=== PATIENT | male | born 1940 | race Caucasian/White ===

== ENCOUNTER 2022-12-09 14:57 | Emergency (ER) | payer MEDICARE, BC, SELFPAY ==
[2022-12-09] VITALS (34 sets, daily range): BP systolic 124–143; BP diastolic 50–87; PULSE 70–84; RESP 16; TEMP 36.4; O2SAT 92–98; BMI 27.2
--- NOTE | 2022-12-09 15:18 | ED_ITS ---
HPI - Chest Pain General Chief Complaint: Chest Pain Stated Complaint: chest pain, shortness of breath Time Seen by Provider: 12/09/22 15:02 History of Present Illness HPI narrative: This 82-year-old male comes in reporting chest pain over the past few days. He states that this pain has come on each time when he lays down at night. 3 nights ago he had this pain and took a nitroglycerin which brought complete relief of his symptoms. 2 nights ago when he laid down he again had similar pain and took a nitro with moderate relief. Last night the nitroglycerin did not help his pain that occurred again when he laid down to sleep. He states that he did not sleep last night because of such pain. He did not have any lightheadedness, nausea, vomiting, diaphoresis. He did feel some shortness of breath. He has a history of triple bypass that was done 21 years ago. His most recent visit to a surgical instruments inspector occurred this year at which time the surgical instruments inspector stated that he does have some blockage in his vessels but since he was asymptomatic there was nothing to be done at that time. The patient did take his baby aspirin today. Currently he is not having any pain and arrives with normal vital signs. He does not describe any exercise intolerance. Related Data Home Medications Medication Instructions Recorded Confirmed atorvastatin 40 mg tablet 40 mg PO DAILY 12/09/22 12/09/22 glipizide 10 mg tablet 10 mg PO BID 12/09/22 12/09/22 hydrochlorothiazide 50 mg tablet 50 mg PO DAILY 12/09/22 12/09/22 insulin aspart U-100 100 unit/mL 8 - 10 unit subcut 3XD 12/09/22 12/09/22 (3 mL) subcutaneous pen (Novolog FlexPen U-100 Insulin aspart) insulin glargine 100 unit/mL (3 12 unit subcut QPM 12/09/22 12/09/22 mL) subcutaneous pen (Basaglar KwikPen U-100 Insulin) lisinopril 40 mg tablet 40 mg PO DAILY 12/09/22 12/09/22 metformin 1,000 mg tablet 1,000 mg PO BID 12/09/22 12/09/22 metoprolol succinate 50 mg 50 mg PO DAILY 12/09/22 12/09/22 tablet,extended release 24 hr nitroglycerin 0.4 mg sublingual mg sublingual 12/09/22 tablet Allergies Allergy/AdvReac Type Severity Reaction Status Date / Time No Known Drug Allergies Allergy Verified 12/09/22 15:04 Review of Systems Status of ROS Reports: 10 or more systems reviewed and unremarkable except as noted in History and below Narrative Constitutional: No fevers, no weight gain or loss. Eyes: No discharge. No vision changes. HENT: No congestion, no sore throat, no ear pain. Cardiovascular: No palpitations. Chest pain as described above. Respiratory: No wheezes, no cough. Patient feels short of breath when he is having chest pain. Gastrointestinal: No abdominal pain, no vomiting, no diarrhea. Genitourinary: No dysuria, no hematuria. Musculoskeletal: Normal range of motion. Skin: No rashes, no pruritis. Neurological: No dizziness, weakness, sensory change, speech change. Endo/Heme/Allergies: No bruising or bleeding. No polydipsia. Pysch: no suicidality, no anxiety, no insomnia. All other systems reviewed and are negative. PFSH PFS Social History Smoking Status: Never smoker How often do you have a drink containing alcohol: monthly or less AUDIT-C Alcohol total score: 1 Non-prescribed substance use: denies use service: No Exam Narrative Exam Narrative: Constitutional: Well-developed, well-nourished, no acute distress. HEENT: Normocephalic, atraumatic. Neck: Normal range of motion. Nontender. Supple. Heart: Regular. Normal rate. Intact distal pulses. Lungs: Clear to auscultation. No chest discomfort. No wheezes, rhonchi, or rales. Abdomen: Normal bowel sounds. Nontender. No rebound tenderness. Genitalia: Deferred. Back: No midline tenderness. Normal range of motion. Extremities: Normal range of motion. No injury. Skin: Intact. No rash. Warm. No erythema or pallor. Neurologic: No altered sensation. No weakness. Alert and oriented. Psychiatric: No suicidality. No anxiety or depression. No insomnia. Nursing notes and vitals signs are reviewed. Const Vital Signs, click to edit/add: Vital Signs - 24 hr 12/09/22 15:06 12/09/22 15:18 12/09/22 15:30 Temperature 97.6 F Pulse Rate 73 75 Pulse Rate [Left Pulse Oximeter] 79 Respiratory Rate 16 Blood Pressure Blood Pressure [Right Upper Arm] 140/78 H Pulse Oximetry 96 97 96 Oxygen Delivery Method Room Air 12/09/22 15:58 12/09/22 16:00 12/09/22 16:15 Temperature Pulse Rate 78 76 70 Pulse Rate [Left Pulse Oximeter] Respiratory Rate Blood Pressure Blood Pressure [Right Upper Arm] Pulse Oximetry 95 95 96 Oxygen Delivery Method 12/09/22 16:22 12/09/22 16:30 12/09/22 16:32 Temperature Pulse Rate 70 73 72 Pulse Rate [Left Pulse Oximeter] Respiratory Rate Blood Pressure 133/75 131/50 L Blood Pressure [Right Upper Arm] Pulse Oximetry 96 97 96 Oxygen Delivery Method 12/09/22 16:33 12/09/22 16:45 12/09/22 16:47 Temperature Pulse Rate 72 79 82 Pulse Rate [Left Pulse Oximeter] Respiratory Rate Blood Pressure 143/83 H Blood Pressure [Right Upper Arm] Pulse Oximetry 95 96 94 Oxygen Delivery Method 12/09/22 16:48 12/09/22 17:00 12/09/22 17:03 Temperature Pulse Rate 79 82 82 Pulse Rate [Left Pulse Oximeter] Respiratory Rate Blood Pressure 132/74 Blood Pressure [Right Upper Arm] Pulse Oximetry 98 93 94 Oxygen Delivery Method 12/09/22 17:04 12/09/22 17:15 12/09/22 17:16 Temperature Pulse Rate 82 81 83 Pulse Rate [Left Pulse Oximeter] Respiratory Rate Blood Pressure 136/86 Blood Pressure [Right Upper Arm] Pulse Oximetry 96 94 94 Oxygen Delivery Method 12/09/22 17:30 12/09/22 17:32 12/09/22 17:33 Temperature Pulse Rate 81 82 84 Pulse Rate [Left Pulse Oximeter] Respiratory Rate Blood Pressure 130/86 Blood Pressure [Right Upper Arm] Pulse Oximetry 94 94 95 Oxygen Delivery Method 12/09/22 17:45 12/09/22 17:46 12/09/22 18:00 Temperature Pulse Rate 81 74 73 Pulse Rate [Left Pulse Oximeter] Respiratory Rate Blood Pressure 130/74 Blood Pressure [Right Upper Arm] Pulse Oximetry 94 95 95 Oxygen Delivery Method 12/09/22 18:01 12/09/22 18:02 12/09/22 18:15 Temperature Pulse Rate 77 74 74 Pulse Rate [Left Pulse Oximeter] Respiratory Rate Blood Pressure 125/81 Blood Pressure [Right Upper Arm] Pulse Oximetry 94 93 93 Oxygen Delivery Method 12/09/22 18:17 12/09/22 18:30 12/09/22 18:31 Temperature Pulse Rate 74 74 71 Pulse Rate [Left Pulse Oximeter] Respiratory Rate Blood Pressure 131/72 124/75 Blood Pressure [Right Upper Arm] Pulse Oximetry 93 92 95 Oxygen Delivery Method 12/09/22 18:45 12/09/22 18:46 12/09/22 19:00 Temperature Pulse Rate 73 74 72 Pulse Rate [Left Pulse Oximeter] Respiratory Rate Blood Pressure 126/83 Blood Pressure [Right Upper Arm] Pulse Oximetry 94 93 93 Oxygen Delivery Method 12/09/22 19:02 Temperature Pulse Rate 75 Pulse Rate [Left Pulse Oximeter] Respiratory Rate Blood Pressure 135/87 Blood Pressure [Right Upper Arm] Pulse Oximetry 93 Oxygen Delivery Method Course Vital Signs Vital signs: Initial Vital Signs Temperature 97.6 F 12/09/22 15:06 Temperature Source Temporal Artery Scan 12/09/22 15:06 Pulse Rate 79 12/09/22 15:06 Pulse Rhythm Regular 12/09/22 15:06 Respiratory Rate 16 12/09/22 15:06 Blood Pressure 140/78 H 12/09/22 15:06 Blood Pressure Mean 98 12/09/22 15:06 Blood Pressure Position Sitting 12/09/22 15:06 Pulse Oximetry 96 12/09/22 15:06 Oxygen Delivery Method Room Air 12/09/22 15:06 Vital Signs Temperature 97.6 F 12/09/22 15:06 Pulse Rate 79 12/09/22 15:06 Respiratory Rate 16 12/09/22 15:06 Blood Pressure 140/78 H 12/09/22 15:06 Pulse Oximetry 96 12/09/22 15:06 Oxygen Delivery Method Room Air 12/09/22 15:06 Temperature 97.6 F 12/09/22 15:06 Pulse Rate 75 12/09/22 19:02 Respiratory Rate 16 12/09/22 15:06 Blood Pressure 135/87 12/09/22 19:02 Pulse Oximetry 93 12/09/22 19:02 Oxygen Delivery Method Room Air 12/09/22 15:06 MDM - Chest Pain MDM Narrative Medical decision making narrative: This 82-year-old male comes in reporting chest pain over the past 3 nights as described above. Currently he is not having any pain and his EKG is not showing any ST or T-wave abnormalities. The patient did take a baby aspirin today which she takes every day. Labs are acquired and his troponin returns markedly elevated at 12.6. The patient did receive 4 baby aspirin here today and heparin was started according to ACS protocol. I spoke with Dr. Alli Killian, surgical instruments inspector at [facility], who wants to have him transferred for further evaluation and treatment. Most likely his bypass vessel has collapsed. I also spoke with the hospitalist research instrumentation technician at [facility] where the patient will be transferred. Dr. Green is the hospitalist there who accepts the patient for transfer. Lab Data Labs: Lab Results 12/09/22 12/09/22 Range/Units 15:05 15:17 WBC 10.04 (4.50-11.00) K/uL RBC 3.96 L (4.30-5.90) m/uL Hgb 12.4 L (13.5-17.5) gm/dL Hct 38.4 (37.0-53.0) % MCV 97 (80-100) fL MCH 31 (26-34) pg MCHC 32 (32-36) gm/dL RDW Coeff of Carrillo 13.7 (11.5-15.5) % Plt Count 292 (140-440) K/uL Neut % (Auto) 64.6 (42.0-72.0) % Lymph % (Auto) 25.9 (20-44) % [place] % (Auto) 6.3 (0.0-11.0) % Eos % (Auto) 2.1 (0.0-7.0) % Baso % (Auto) 0.4 (0.0-3.0) % Neut # (Auto) 6.49 (1.7-7.0) K/uL Lymph # (Auto) 2.60 (0.90-2.90) K/uL [place] # (Auto) 0.60 (0.00-0.90) K/UL Eos # (Auto) 0.21 (0.00-0.50) K/uL Baso # (Auto) 0.04 (0.00-0.30) K/uL Abs Immat Gran (auto) 0.07 (0.00-0.30) K/uL Imm/Tot Granulo (auto) 0.7 % INR 0.96 (0.91-1.10) APTT 43 H (23-33) Seconds Sodium 141 (135-149) mmol/L Potassium 4.2 (3.6-5.1) mmol/L Chloride 104 (96-114) mmol/L Carbon Dioxide 21 (20-32) mmol/L BUN 34 H (7-30) mg/dL Creatinine 1.3 (0.5-1.5) mg/dL Estimated Creat Clear 44.57 Estimated GFR 55 ml/min Glucose 156 H (60-115) mg/dL Calcium 9.5 (8.4-10.6) mg/dL POC Troponin I 12.60 H (0.01-0.04) ng/ml ECG Data Attestation: I personally reviewed and interpreted this ECG as follows: Interpretation: Sinus rhythm with premature beats. Rate is 75 beats per minute. There are no specific ST or T-wave abnormalities. Discharge Plan Discharge Clinical Impression: Non-ST elevation AK (NSTEMI) Patient Disposition: [facility] Condition: Unchanged Prescriptions: No Action nitroglycerin 0.4 mg tablet, sublingual sublingual atorvastatin 40 mg tablet 40 mg PO DAILY metoprolol succinate 50 mg tablet extended release 24 hr 50 mg PO DAILY hydrochlorothiazide 50 mg tablet 50 mg PO DAILY glipizide 10 mg tablet 10 mg PO BID metformin 1,000 mg tablet 1,000 mg PO BID lisinopril 40 mg tablet 40 mg PO DAILY insulin aspart U-100 [Novolog FlexPen U-100 Insulin] 100 unit/mL (3 mL) insulin pen 8 - 10 unit subcut 3XD insulin glargine [Basaglar KwikPen U-100 Insulin] 100 unit/mL (3 mL) insulin pen 12 unit subcut QPM Stand Alone Forms: [facility] Info Instructions
[2022-12-09 15:28] LABS: Basophils Absolute Auto 0.04 K/uL (0.00-0.30); Basophils Percent Auto 0.4 % (0.0-3.0); Eosinophils Absolute Auto 0.21 K/uL (0.00-0.50); Eosinophils Percent Auto 2.1 % (0.0-7.0); Hematocrit 38.4 % (37.0-53.0); Hemoglobin* 12.4 gm/dL (13.5-17.5); Immature Granulocytes Abs Auto 0.07 K/uL (0.00-0.30); Immature Granulocytes Pct Auto 0.7 %; Lymphocytes Percent Auto 25.9 % (20-44); Mean Corpuscular HGB Conc 32 gm/dL (32-36); Mean Corpuscular Hemoglobin 31 pg (26-34); Mean Corpuscular Volume 97 fL (80-100); Monocytes Percent Auto 6.3 % (0.0-11.0); Neutrophils Absolute Auto 6.49 K/uL (1.7-7.0); Neutrophils Percent Auto 64.6 % (42.0-72.0); Platelet Count* 292 K/uL (140-440); RDW Coefficient of Variation % 13.7 % (11.5-15.5); Red Blood Count 3.96 m/uL (4.30-5.90); White Blood Count* 10.04 K/uL (4.50-11.00)
[2022-12-09] MEDS: ASPIRIN 81 MG TAB.CHEW 324 MG PO (15:28)
[2022-12-09 15:31] LABS: Slide Review Reflex No
[2022-12-09 15:40] LABS: Chloride* 104 mmol/L (96-114); Potassium* 4.2 mmol/L (3.6-5.1); Sodium* 141 mmol/L (135-149)
[2022-12-09 15:43] LABS: Blood Urea Nitrogen* 34 mg/dL (7-30); Carbon Dioxide* 21 mmol/L (20-32); Creatinine* 1.3 mg/dL (0.5-1.5); Est. Creatinine Clearance* 44.57; Estimated Glomerular Filt Rate 55 ml/min; Glucose* 156 mg/dL (60-115)
[2022-12-09 15:44] LABS: Calcium* 9.5 mg/dL (8.4-10.6)
[2022-12-09] MEDS: HEPARIN 5,000 UNIT/0.5 ML INJ 4000 UNIT IVP (16:21)
[2022-12-09] MEDS: HEPARIN 25,000 UNIT/500 ML BAG 20 UNIT IV (16:22)
[2022-12-09 16:32] LABS: INR 0.96 (0.91-1.10); Prothrombin Time 13.4 Seconds
[2022-12-09 16:33] LABS: Partial Thromboplastin Time* 43 Seconds (23-33)
--- NOTE | 2022-12-09 16:54 | ED.NURSE ---
Nurse trista aguillon report given to [facility] at [facility] [phone]
== END 2022-12-09 19:16 | disposition short-term general hospital (02) ==
PROVIDERS: Emergency Provider Emergency Medicine Emergency Medical Services; PCP Family Medicine
DX: I21.4 Non-ST elevation (NSTEMI) myocardial infarction (principal)
CPT/HCPCS: 36415; 80048; 82962; 84484; 85025; 85610; 85730; 93005; 99285; A9270; J1644

== ENCOUNTER 2022-12-09 19:06 | Outpatient (CLI) | payer MEDICARE, BC, SELFPAY | END 2022-12-09 19:07 | disposition home or self-care (01) | PROVIDERS: PCP Family Medicine; Visit Provider Family Medicine | DX: R07.89 Other chest pain (principal) | CPT/HCPCS: A0425; A0434 ==

== ENCOUNTER 2022-12-27 16:41 | Emergency (ER) | payer MEDICARE, BC, SELFPAY ==
[2022-12-27] VITALS (19 sets, daily range): BP systolic 105–117; BP diastolic 57–75; PULSE 66–105; RESP 20; TEMP 36.6; O2SAT 82–98; BMI 27.8
--- NOTE | 2022-12-27 16:59 | CRLHL7_ITS ---
For Patients: As a result of the Century Cures Act, medical imaging exams and procedure reports are released immediately into your electronic medical record. You may view this report before your referring provider. If you have questions, please contact your health care provider. INDICATION: Shortness of breath. COMPARISON: None. TECHNIQUE: Two view chest radiograph. Findings : There is a spiculated opacity within the right upper lobe. Bibasilar pulmonary opacities may represent atelectasis. Small effusions. Normal heart size. No pneumothorax. IMPRESSION: 1. Right upper lobe spiculated opacity. Recommend further evaluation with chest CT to exclude malignancy. 2. Small effusions and bibasilar pulmonary opacities which may represent atelectasis, aspiration or infection. Dictated by Alvarado Theodore MD @ 12/27/2022 6:29:02 PM (Electronically Signed)
--- NOTE | 2022-12-27 17:16 | ED.GENADULT ---
HPI - General Adult General Time Seen by Provider: 17:16 Date Seen: 12/27/22 Chief complaint: Shortness of Breath/Dyspnea Stated complaint: Swelling in legs, fluid in lungs Time Seen by Provider: 12/27/22 16:42 Source: patient and family Mode of arrival: wheelchair Limitations: no limitations History of Present Illness HPI narrative: Patient is an 82-year-old male with a history of coronary disease status post CABG, NSTEMI with a new blockage found couple weeks ago now on Eliquis with new onset AFib, diabetes, hypertension presented emergency department for shortness of breath. Since he was released from the hospital 2 weeks ago he has been having increased shortness of breath. He states previously he could walk cord of the weight [facility] around the mouth [place] without getting tired and now he walks about 20 ft in become short of breath. He has also been having orthopnea. He has been trying to keep his legs elevated whenever he lays flat now he becomes very short of breath. He also has noticed increased swelling in his lower extremities and states this is the 1st time it has ever occurred. Started over the past 3 or 4 days. He went to a routine appointment for an iron infusion for his anemia today when they told him he had to see their provider due to his swelling and symptoms and then he was sent to our emergency department. Patient denies chest pain. States his previous DE he had chest pain and shortness of breath and this feels nothing like that. Her report previously he has an elevated BNP on 12/20 but due to an ALEX either did not start him on Lasix. He also had a blood pressure in the 90s to they at the clinic. His echo at the [facility] shows an EF of 30-35% and the occlusion that was found was an previous surgical graft no stent was placed. Denies headache, lightheadedness, dizziness, abdominal pain, diarrhea, constipation. Related Data Home Medications Medication Instructions Recorded Confirmed atorvastatin 40 mg tablet 40 mg PO DAILY 12/09/22 12/09/22 glipizide 10 mg tablet 10 mg PO BID 12/09/22 12/09/22 insulin aspart U-100 100 unit/mL 8 - 10 unit subcut 3XD 12/09/22 12/09/22 (3 mL) subcutaneous pen (Novolog FlexPen U-100 Insulin aspart) insulin glargine 100 unit/mL (3 12 unit subcut QPM 12/09/22 12/09/22 mL) subcutaneous pen (Basaglar KwikPen U-100 Insulin) metformin 1,000 mg tablet 1,000 mg PO BID 12/09/22 12/09/22 metoprolol succinate 50 mg 50 mg PO DAILY 12/09/22 12/09/22 tablet,extended release 24 hr nitroglycerin 0.4 mg sublingual mg sublingual 12/09/22 tablet apixaban 5 mg tablet (Eliquis) 5 mg PO BID 12/27/22 12/27/22 clopidogrel 75 mg tablet 75 mg PO DAILY 12/27/22 12/27/22 isosorbide mononitrate 30 mg 30 mg PO DAILY 12/27/22 12/27/22 tablet,extended release 24 hr lisinopril 10 mg tablet 10 mg PO DAILY 12/27/22 12/27/22 pantoprazole 40 mg tablet,delayed 40 mg PO DAILY 12/27/22 12/27/22 release Allergies Allergy/AdvReac Type Severity Reaction Status Date / Time No Known Drug Allergies Allergy Verified 12/09/22 15:04 Review of Systems Status of ROS: Reports: 10 or more systems reviewed and unremarkable except as noted in History and below [facility] Social History Smoking Status: Never smoker How often do you have a drink containing alcohol: monthly or less AUDIT-C Alcohol total score: 1 Non-prescribed substance use: denies use service: No Exam Narrative: Exam Narrative: Const: Well-nourished, Well-developed, in mild distress Eyes: PERRL, no conjunctival injection, and symmetrical lids ENMT: Atraumatic external nose and ears. Moist mucous membranes. Neck: Symmetric, trachea midline, No thyromegaly. CVS: RRR, No murmurs or gallops. Peripheral pulses 2+ and equal in all extremities RESP: Unlabored respiratory effort. Clear to auscultation bilaterally. GI: Nontender/Nondistended, No rebound or guarding. MSK: 3+ lower extremity edema primarily going up to the knee. Extremities w/o deformity, Normal Active ROM Skin: Warm, Dry. No rashes or lesions. Neuro: Normal Muscle tone, No focal neurological deficits. Psych: Awake, Alert, & Oriented x3. Appropriate mood and affect. Const: Vital Signs, click to edit/add: Vital Signs - 24 hr 12/27/22 16:49 12/27/22 17:38 12/27/22 17:41 Temperature 97.9 F Pulse Rate 105 H Pulse Rate [Right Pulse Oximeter] 80 Respiratory Rate 20 Blood Pressure 106/69 106/65 Blood Pressure [Le ft Upper Arm] 105/59 L Pulse Oximetry 98 97 Oxygen Delivery Me thod Room Air 12/27/22 17:42 12/27/22 17:45 12/27/22 18:00 Temperature Pulse Rate 91 70 69 Pulse Rate [Right Pulse Oximeter] Respiratory Rate Blood Pressure Blood Pressure [Le ft Upper Arm] Pulse Oximetry 98 96 96 Oxygen Delivery Me thod 12/27/22 18:01 12/27/22 18:15 12/27/22 18:21 Temperature Pulse Rate 82 77 79 Pulse Rate [Right Pulse Oximeter] Respiratory Rate Blood Pressure 117/75 115/73 Blood Pressure [Le ft Upper Arm] Pulse Oximetry 97 97 98 Oxygen Delivery Me thod 12/27/22 18:30 12/27/22 18:41 12/27/22 18:45 Temperature Pulse Rate 76 76 80 Pulse Rate [Right Pulse Oximeter] Respiratory Rate Blood Pressure 110/69 Blood Pressure [Le ft Upper Arm] Pulse Oximetry 97 97 98 Oxygen Delivery Me thod Course Vital Signs Vital signs: Initial Vital Signs Temperature 97.9 F 12/27/22 16:49 Temperature Source Temporal Artery Scan 12/27/22 16:49 Pulse Rate 80 12/27/22 16:49 Respiratory Rate 20 12/27/22 16:49 Blood Pressure 105/59 L 12/27/22 16:49 Blood Pressure Mean 74 12/27/22 16:49 Blood Pressure Position Sitting 12/27/22 16:49 Pulse Oximetry 98 12/27/22 16:49 Oxygen Delivery Method Room Air 12/27/22 16:49 Vital Signs Temperature 97.9 F 12/27/22 16:49 Pulse Rate 80 12/27/22 16:49 Respiratory Rate 20 12/27/22 16:49 Blood Pressure 105/59 L 12/27/22 16:49 Pulse Oximetry 98 12/27/22 16:49 Oxygen Delivery Method Room Air 12/27/22 16:49 Temperature 97.9 F 12/27/22 16:49 Pulse Rate 80 12/27/22 18:45 Respiratory Rate 20 12/27/22 16:49 Blood Pressure 110/69 12/27/22 18:41 Pulse Oximetry 98 12/27/22 18:45 Oxygen Delivery Method Room Air 12/27/22 16:49 Medical Decision Making MDM Narrative Medical decision making narrative: Patient is an 82-year-old male with known coronary artery disease with recent NSTEMI presented emergency department for shortness of breath. Shortness breath has been worsening since her sister from hospital on 0 12/13. He is gradually having worsening symptoms in the in the started with lower extremity edema. In 12/20 he believes he was having CHF but did not start Lasix due to his elevated creatinine. When in for a infusion for his anemia he was told to see their provider in the clinic in the was then transferred to our emergency department. CBC, CMP, troponin, BNP, COVID/flu/RSV were all ordered. Also ordered a chest x-ray. Lab work returns showing a potassium 6.1 and an ALEX with a creatinine of 1.9. Baseline is 1.1. With the elevated creatinine we did give the patient Lasix even though he does have an acute kidney injury. Hopefully increased perfusion will also help with the kidney injury. Patient given insulin and dextrose. He is COVID positive. BNP is 19,200. Chest x-ray shows small by a basilar opacities which could be multiple different things along suspected mass in the right upper lobe. Radiology recommended a CT scan but I do not want to do CT scan of IV contrast in this patient at this time with his acute kidney injury and believe that can wait. His troponin is 0.34. Of note on 12/09 it was 12.6 and at this time this elevated troponin could be from the previous DE and is still down trending. It could be having difficulty clearing the troponin due to his acute kidney injury. With erythema has going on a previous best for this patient to be transferred. I spoke to Dr. Ace at [facility] ICU and he is agreeable to transfer to their ICU. I spoke to the patient and his about this and they are agreeable to this plan. Lab Data Labs: Lab Results 12/27/22 12/27/22 Range/Units 17:15 18:28 WBC 9.90 (4.50-11.00) K/uL RBC 3.04 L (4.30-5.90) m/uL Hgb 9.4 L (13.5-17.5) gm/dL Hct 30.2 L (37.0-53.0) % MCV 99 (80-100) fL MCH 31 (26-34) pg MCHC 31 L (32-36) gm/dL RDW Coeff of Carrillo 14.4 (11.5-15.5) % Plt Count 349 (140-440) K/uL Neut % (Auto) 79.2 H (42.0-72.0) % Lymph % (Auto) 13.6 L (20-44) % [place] % (Auto) 5.4 (0.0-11.0) % Eos % (Auto) 1.1 (0.0-7.0) % Baso % (Auto) 0.3 (0.0-3.0) % Neut # (Auto) 7.80 H (1.7-7.0) K/uL Lymph # (Auto) 1.30 (0.90-2.90) K/uL [place] # (Auto) 0.50 (0.00-0.90) K/UL Eos # (Auto) 0.11 (0.00-0.50) K/uL Baso # (Auto) 0.03 (0.00-0.30) K/uL Abs Immat Gran (auto) 0.04 (0.00-0.30) K/uL Imm/Tot Granulo (auto) 0.4 % Sodium 138 (135-149) mmol/L Potassium 6.1 H* (3.6-5.1) mmol/L Chloride 106 (96-114) mmol/L Carbon Dioxide 15 L (20-32) mmol/L BUN 89 H (7-30) mg/dL Creatinine 1.9 H (0.5-1.5) mg/dL Estimated Creat Clear 31.48 Estimated GFR 35 ml/min Glucose 126 H (60-115) mg/dL Calcium 9.1 (8.4-10.6) mg/dL Magnesium 1.9 (1.5-2.6) mg/dL Total Bilirubin 0.9 (0.1-1.5) mg/dL AST 42 H (12-35) U/L ALT 73 H (4-50) U/L Alkaline Phosphatase 117 (40-150) U/L Troponin I 0.34 H* (0.01-0.04) ng/mL NT-Pro-B Natriuret Pep 03003 pg/mL Total Protein 7.2 (6.0-8.3) g/dL Albumin 4.1 (3.3-5.0) g/dL SARS-CoV-2 (PCR) POSITIVE SARS-CoV-2 A (Negative) Influenza Type A (PCR) Negative PCR FLU A (Negative) Influenza Type B (PCR) Negative PCR FLU B (Negative) RSV (PCR) Negative PCR RSV (Negative) Lab Acknowledgement Test Added Imaging Data Chest x-ray: Radiologist's impression: INDICATION: Shortness of breath. COMPARISON: None. TECHNIQUE: Two view chest radiograph. Findings : There is a spiculated opacity within the right upper lobe. Bibasilar pulmonary opacities may represent atelectasis. Small effusions. Normal heart size. No pneumothorax. IMPRESSION: 1. Right upper lobe spiculated opacity. Recommend further evaluation with chest CT to exclude malignancy. 2. Small effusions and bibasilar pulmonary opacities which may represent atelectasis, aspiration or infection. Dictated by Alvarado Theodore MD @ 12/27/2022 6:29:02 PM ECG Data Attestation: I personally reviewed and interpreted this ECG as follows: Prior ECG tracings: available for review (12/09/2022) Interpretation: AFib with rate of 87 beats per minute, right axis deviation, normal intervals, no ST or T-wave abnormalities. Appears similar to previous EKGs on file Discharge Plan Discharge Clinical Impression: Acute hyperkalemia, Acute kidney injury, COVID Congestive heart failure Qualifiers: Heart failure type: systolic Heart failure chronicity: acute on chronic Qualified Code(s): I50.23 - Acute on chronic systolic (congestive) heart failure Patient Disposition: Xfer [facility] Discharge Location: [facility] Condition: Stable Prescriptions: No Action isosorbide mononitrate 30 mg tablet extended release 24 hr 30 mg PO DAILY clopidogrel 75 mg tablet 75 mg PO DAILY pantoprazole 40 mg tablet,delayed release (DR/EC) 40 mg PO DAILY Eliquis 5 mg tablet 5 mg PO BID lisinopril 10 mg tablet 10 mg PO DAILY nitroglycerin 0.4 mg tablet, sublingual sublingual atorvastatin 40 mg tablet 40 mg PO DAILY metoprolol succinate 50 mg tablet extended release 24 hr 50 mg PO DAILY glipizide 10 mg tablet 10 mg PO BID metformin 1,000 mg tablet 1,000 mg PO BID insulin aspart U-100 [Novolog FlexPen U-100 Insulin] 100 unit/mL (3 mL) insulin pen 8 - 10 unit subcut 3XD insulin glargine [Basaglar KwikPen U-100 Insulin] 100 unit/mL (3 mL) insulin pen 12 unit subcut QPM Stand Alone Forms: [facility] Info Instructions
[2022-12-27 17:25] LABS: Basophils Absolute Auto 0.03 K/uL (0.00-0.30); Basophils Percent Auto 0.3 % (0.0-3.0); Eosinophils Absolute Auto 0.11 K/uL (0.00-0.50); Eosinophils Percent Auto 1.1 % (0.0-7.0); Hematocrit 30.2 % (37.0-53.0); Hemoglobin* 9.4 gm/dL (13.5-17.5); Immature Granulocytes Abs Auto 0.04 K/uL (0.00-0.30); Immature Granulocytes Pct Auto 0.4 %; Lymphocytes Percent Auto 13.6 % (20-44); Mean Corpuscular HGB Conc 31 gm/dL (32-36); Mean Corpuscular Hemoglobin 31 pg (26-34); Mean Corpuscular Volume 99 fL (80-100); Monocytes Percent Auto 5.4 % (0.0-11.0); Neutrophils Percent Auto 79.2 % (42.0-72.0); Platelet Count* 349 K/uL (140-440); RDW Coefficient of Variation % 14.4 % (11.5-15.5); Red Blood Count 3.04 m/uL (4.30-5.90)
[2022-12-27 17:31] LABS: Slide Review Reflex No
[2022-12-27 18:02] LABS: Albumin* 4.1 g/dL (3.3-5.0); Chloride* 106 mmol/L (96-114)
[2022-12-27 18:03] LABS: Sodium* 138 mmol/L (135-149)
[2022-12-27 18:05] LABS: Alkaline Phosphatase* 117 U/L (40-150); Aspartate Amino Transferase* 42 U/L (12-35); Bilirubin Total* 0.9 mg/dL (0.1-1.5); Blood Urea Nitrogen* 89 mg/dL (7-30); Carbon Dioxide* 15 mmol/L (20-32); Creatinine* 1.9 mg/dL (0.5-1.5); Est. Creatinine Clearance* 31.48; Estimated Glomerular Filt Rate 35 ml/min; Total Protein* 7.2 g/dL (6.0-8.3)
[2022-12-27 18:06] LABS: Alanine Aminotransferase* 73 U/L (4-50); Calcium* 9.1 mg/dL (8.4-10.6); Glucose* 126 mg/dL (60-115)
[2022-12-27 18:07] LABS: Potassium* 6.1 mmol/L (3.6-5.1)
--- NOTE | 2022-12-27 18:10 | ED.NURSE ---
MD Honeycutt notified of critical Trop 0.34.
--- NOTE | 2022-12-27 18:10 | ED.NURSE ---
MD Honeycutt updated about critical potassium of 6.1.
[2022-12-27 18:11] LABS: PCR FLU A Negative PCR FLU A (Negative); PCR FLU B Negative PCR FLU B (Negative); PCR RSV Negative PCR RSV (Negative)
[2022-12-27 18:14] LABS: SARS PCR* POSITIVE SARS-CoV-2 (Negative)
[2022-12-27 18:18] LABS: NT Pro B Type NatriureticPept* 19200 pg/mL
[2022-12-27 18:19] LABS: Troponin I* 0.34 ng/mL (0.01-0.04)
[2022-12-27 18:37] LABS: Magnesium* 1.9 mg/dL (1.5-2.6)
[2022-12-27] MEDS: DEXTROSE 50 % SYRINGE IVP (18:43)
[2022-12-27] MEDS: FUROSEMIDE 10 MG/ML inj 40 MG IVP (18:47)
--- NOTE | 2022-12-27 20:06 | ED.NURSE ---
Report given to nurse at [facility] ([place]) [phone]. Patient will go to station 20, room 2016.
--- NOTE | 2022-12-27 20:14 | ED.NURSE ---
Patient's blood sugar at this time is 213.
== END 2022-12-27 21:28 | disposition short-term general hospital (02) ==
PROVIDERS: Emergency Provider Student in an Organized Health Care Education/Training Program; PCP Family Medicine
DX: U07.1 COVID-19 (principal); E87.5 Hyperkalemia; N17.9 Acute kidney failure, unspecified
CPT/HCPCS: 36415; 71046; 80053; 83735; 83880; 84484; 85025; 87631; 93005; 96374; 96375; 99284; 99285; J1940

== ENCOUNTER 2022-12-27 21:11 | Outpatient (CLI) | payer MEDICARE, BC, SELFPAY | END 2022-12-27 21:12 | disposition home or self-care (01) | LOC: AMB 01-08 04:17 | PROVIDERS: PCP Family Medicine; Visit Provider Family Medicine | DX: I50.9 Heart failure, unspecified (principal); U07.1 COVID-19 | CPT/HCPCS: A0425; A0426 ==

== ENCOUNTER 2023-02-12 11:48 | Inpatient (IN) | payer MEDICARE, BC, SELFPAY ==
[2023-02-12] VITALS (26 sets, daily range): BP systolic 98–121; BP diastolic 58–84; PULSE 70–82; RESP 16–20; TEMP 36.4–36.8; O2SAT 95–100; BMI 25.8
--- NOTE | 2023-02-12 14:42 | ED_ITS ---
HPI - General Adult General Time Seen by Provider: 14:42 Date Seen: 02/12/23 Chief complaint: Extremity Pain/Injury, Lower Stated complaint: Infection in R foot Time Seen by Provider: 02/12/23 14:27 Source: patient and RN notes reviewed Mode of arrival: ambulatory Limitations: no limitations History of Present Illness HPI narrative: This 82-year-old male is coming to the ER accompanied with complaint of wounds on his right foot or ulcers that are not improving. They see Dr. Man at [facility] and did have an x-ray last Sunday. He has been on Cipro in the do not believe it is working. He is not feeling ill such is achy your flu violeta, no nausea. He has had no fevers. He does have pain with these ulcers. He is diabetic. They report he had a heart attack and then had congestive heart failure and overall was hospitalized between [facility] 20 days recently. Then went to a half-way after. Related Data Home Medications Medication Instructions Recorded Confirmed atorvastatin 40 mg tablet 40 mg PO DAILY 12/09/22 02/12/23 glipizide 10 mg tablet 10 mg PO BID 12/09/22 12/09/22 insulin aspart U-100 100 unit/mL 8 - 10 unit subcut 3XD 12/09/22 02/12/23 (3 mL) subcutaneous pen (Novolog FlexPen U-100 Insulin aspart) insulin glargine 100 unit/mL (3 12 unit subcut QPM 12/09/22 12/09/22 mL) subcutaneous pen (Basaglar KwikPen U-100 Insulin) metoprolol succinate 50 mg 50 mg PO DAILY 12/09/22 12/09/22 tablet,extended release 24 hr nitroglycerin 0.4 mg sublingual mg sublingual 12/09/22 tablet apixaban 5 mg tablet (Eliquis) 5 mg PO BID 12/27/22 02/12/23 clopidogrel 75 mg tablet 75 mg PO DAILY 12/27/22 02/12/23 pantoprazole 40 mg tablet,delayed 40 mg PO DAILY 12/27/22 02/12/23 release ciprofloxacin HCl 500 mg tablet 500 mg PO BID 02/12/23 02/12/23 entnestro 24 - 26 mg PO BID 02/12/23 02/12/23 furosemide 40 mg tablet 40 mg PO DAILY 02/12/23 02/12/23 glipizide 5 mg tablet 2.5 mg PO DAILY 02/12/23 02/12/23 metoprolol succinate 25 mg 25 mg PO DAILY 02/12/23 02/12/23 tablet,extended release 24 hr sacubitril 24 mg-valsartan 26 mg 1 tab PO BID 02/12/23 02/12/23 tablet (Entresto) spironolactone 25 mg tablet 25 mg PO DAILY 02/12/23 02/12/23 Allergies Allergy/AdvReac Type Severity Reaction Status Date / Time No Known Drug Allergies Allergy Verified 02/12/23 12:54 Review of Systems Status of ROS: Reports: 6 or more systems reviewed and unremarkable except as noted in History and below PFSH [facility] Medical History CKD (chronic kidney disease) ?N18.9 - Chronic kidney disease, unspecified (ICD-10) Peripheral neuropathy ?G62.9 - Polyneuropathy, unspecified (ICD-10) CAD (coronary artery disease) ?I25.10 - Atherosclerotic heart disease of [place] coronary artery without angina pectoris (ICD-10) Diabetes mellitus ?E11.9 - Type 2 diabetes mellitus without complications (ICD-10) Social History Smoking Status: Never smoker How often do you have a drink containing alcohol: monthly or less AUDIT-C Alcohol total score: 1 Non-prescribed substance use: denies use service: No Exam Const: Vital Signs, click to edit/add: Vital Signs - 24 hr 02/12/23 12:37 02/12/23 14:33 02/12/23 14:34 Temperature 98.3 F Pulse Rate 70 72 Pulse Rate [Pulse Oximeter] 77 Respiratory Rate 18 Blood Pressure 109/62 Blood Pressure [Ri ght Upper Arm] 98/60 Pulse Oximetry 99 99 99 Oxygen Delivery Me thod Room Air 02/12/23 14:48 02/12/23 15:00 02/12/23 15:01 Temperature Pulse Rate 75 71 Pulse Rate [Pulse Oximeter] Respiratory Rate Blood Pressure 104/65 Blood Pressure [Ri ght Upper Arm] Pulse Oximetry 98 100 100 Oxygen Delivery Me thod 02/12/23 15:02 02/12/23 15:30 02/12/23 15:31 Temperature Pulse Rate 74 75 79 Pulse Rate [Pulse Oximeter] Respiratory Rate Blood Pressure 114/61 Blood Pressure [Ri ght Upper Arm] Pulse Oximetry 96 97 100 Oxygen Delivery Me thod 02/12/23 16:00 02/12/23 16:01 02/12/23 16:02 Temperature Pulse Rate 79 82 72 Pulse Rate [Pulse Oximeter] Respiratory Rate Blood Pressure 112/65 Blood Pressure [Ri ght Upper Arm] Pulse Oximetry 98 96 99 Oxygen Delivery Me thod 02/12/23 16:30 02/12/23 16:31 02/12/23 16:32 Temperature Pulse Rate 72 73 76 Pulse Rate [Pulse Oximeter] Respiratory Rate Blood Pressure 102/66 Blood Pressure [Ri ght Upper Arm] Pulse Oximetry 99 98 96 Oxygen Delivery Me thod 02/12/23 17:00 02/12/23 17:01 02/12/23 17:30 Temperature Pulse Rate 76 74 82 Pulse Rate [Pulse Oximeter] Respiratory Rate Blood Pressure 110/63 Blood Pressure [Ri ght Upper Arm] Pulse Oximetry 99 98 97 Oxygen Delivery Me thod 02/12/23 17:31 02/12/23 17:32 02/12/23 18:00 Temperature Pulse Rate 75 82 73 Pulse Rate [Pulse Oximeter] Respiratory Rate Blood Pressure 117/58 L Blood Pressure [Ri ght Upper Arm] Pulse Oximetry 95 96 97 Oxygen Delivery Me thod 02/12/23 18:01 Temperature Pulse Rate 73 Pulse Rate [Pulse Oximeter] Respiratory Rate Blood Pressure 121/71 Blood Pressure [Ri ght Upper Arm] Pulse Oximetry 99 Oxygen Delivery Me thod Alert, interactive, no apparent distress 82-year-old male, able speak in complete sentences. Face atraumatic. Neck supple, do not feel any masses or adenopathy. Lungs actually are clear anteriorly no wheezing or crackles. CV regular rate and rhythm no murmur, normal S1 and S2. Abdomen is soft, no rebound or guarding, no organomegaly. I note no significant edema of his lower extremities. His feet are exposed. He has black and centered ulcers on both heels. No fluctuance around them. His right 3rd toe on the dorsum has whitish area with a central black in/brownish eschar. The lateral right foot along the 5th metatarsal head has some erythema swelling and a black centered eschar wound. None of these are draining. On the dorsum of his foot along the metatarsals there is some slight violeta pinkish color, not extremely warm, does have some slight swelling. Foot is certainly not cool nor does it have any pallor to it. Documenting provider has reviewed patient's vital signs: yes Course Course ED Course: Reviewed with them that we really should do imaging with x-ray again just ensure no changes of osteomyelitis. Did review ultimately an MRI may be indicated but we typically will not do that emergently out of the ER. Also will obtain some lab work. I have reviewed with them that I am concerned that these look to be significant wounds, especially the 1 on his right 3rd toe. I do expect that hospitalization maybe next here for him. Will see what our workup does lead us to. He is currently hemodynamically stable, afebrile. Reevaluation(s) Time of Reevaluation #1: 17:32 Reevaluation #1: Did review the plan for hospitalization and did review that will be starting vancomycin and Ancef. His believes that he had vascular studies of this leg earlier this summer at [place]. She does have them with. I will contact the hospitalist back and let them know. His right 2nd toes looking more erythematous and red, the erythema it seems to be more intense over the dorsum of his foot from the last time I sought. Do think there is probable cellulitis and secondary infection. Consultations Consultation #1: Spoke with Gudelia Fink covering hospitalist service. She and I discussed antibiotics, will use vancomycin and Ancef. Did review that I a new the supervisor public health nursing would not likely be back before next week. There is a possibility of toe amputation with 1 of her other general surgeons. At this time though, patient really needs more workup before this is a definite possibility. I do not feel we have enough to need transfer met this point, does need further workup which I cannot do in the ER. She agrees, accepts patient. Time: 17:23 Vital Signs Vital signs: Initial Vital Signs Temperature 98.3 F 02/12/23 12:37 Temperature Source Temporal Artery Scan 02/12/23 12:37 Pulse Rate 77 02/12/23 12:37 Respiratory Rate 18 02/12/23 12:37 Blood Pressure 98/60 02/12/23 12:37 Blood Pressure Mean 72 10/02/23 12:37 Blood Pressure Position Sitting 02/12/23 12:37 Pulse Oximetry 99 02/12/23 12:37 Oxygen Delivery Method Room Air 02/12/23 12:37 Vital Signs Temperature 98.3 F 02/12/23 12:37 Pulse Rate 77 02/12/23 12:37 Respiratory Rate 18 02/12/23 12:37 Blood Pressure 98/60 02/12/23 12:37 Pulse Oximetry 99 02/12/23 12:37 Oxygen Delivery Method Room Air 02/12/23 12:37 Temperature 98.3 F 02/12/23 12:37 Pulse Rate 73 02/12/23 18:01 Respiratory Rate 18 02/12/23 12:37 Blood Pressure 121/71 02/12/23 18:01 Pulse Oximetry 99 02/12/23 18:01 Oxygen Delivery Method Room Air 02/12/23 12:37 Medical Decision Making Lab Data Lab results reviewed: Yes I reviewed the patient's lab results Labs: Lab Results 02/12/23 Range/Units 15:12 WBC 7.65 (4.50-11.00) K/uL RBC 3.54 L (4.30-5.90) m/uL Hgb 11.1 L (13.5-17.5) gm/dL Hct 34.7 L (37.0-53.0) % MCV 98 (80-100) fL MCH 31 (26-34) pg MCHC 32 (32-36) gm/dL RDW Coeff of Carrillo 14.1 (11.5-15.5) % Plt Count 319 (140-440) K/uL Neut % (Auto) 72.1 H (42.0-72.0) % Lymph % (Auto) 16.7 L (20-44) % [place] % (Auto) 9.2 (0.0-11.0) % Eos % (Auto) 1.6 (0.0-7.0) % Baso % (Auto) 0.3 (0.0-3.0) % Neut # (Auto) 5.50 (1.7-7.0) K/uL Lymph # (Auto) 1.30 (0.90-2.90) K/uL [place] # (Auto) 0.70 (0.00-0.90) K/UL Eos # (Auto) 0.12 (0.00-0.50) K/uL Baso # (Auto) 0.02 (0.00-0.30) K/uL Abs Immat Gran (auto) 0.01 (0.00-0.30) K/uL Imm/Tot Granulo (auto) 0.1 % ESR 89 H (2-15) mm/hr Sodium 137 (135-149) mmol/L Potassium 4.6 (3.6-5.1) mmol/L Chloride 98 (96-114) mmol/L Carbon Dioxide 27 (20-32) mmol/L Anion Gap 12 (7-15) mEq/L BUN 33 H (7-30) mg/dL Creatinine 1.5 (0.5-1.5) mg/dL Estimated Creat Clear 38.62 Estimated GFR 46 ml/min Glucose 355 H* (60-115) mg/dL Lactate 1.9 (0.5-1.9) mmol/L Calcium 9.4 (8.4-10.6) mg/dL Total Bilirubin 0.4 (0.1-1.5) mg/dL AST 40 H (12-35) U/L ALT 26 (4-50) U/L Alkaline Phosphatase 94 (40-150) U/L C-Reactive Protein 2.5 H (0.5-1.0) mg/dL Total Protein 7.3 (6.0-8.3) g/dL Albumin 3.8 (3.3-5.0) g/dL Imaging Data XR right foot: Attestation: I have reviewed the pertinent imaging results. Radiologist's impression: Patient: JENNY CASAS Facility:?[facility] Patient ID:?[id number] Site Patient ID:?[id number]. Site :?[id number] Study:?XRay Extremity Right 3V-02/12/2023 3:22:00 PM Ordering Physician:Wil Johnson Final Report: Indication: Wounds. Technique: Right foot, 3 views. Comparison: None. Findings/Impression: Bones: Alignment is normal. No displaced fractures. Subtle curvilinear mineralization adjacent to the 5th metatarsal head with adjacent soft tissue swelling. Early osteomyelitis is not excluded. If there is persistent clinical concern, consider MRI which is more sensitive study. Joint spaces: Unremarkable. Soft tissues: Focal soft tissue thickening about the 5th metatarsal base. Dictated by Kwabena Pineda MD @ 02/12/2023 4:03:50 PM (Electronic Signature)
--- NOTE | 2023-02-12 14:48 | CRLHL7_ITS ---
For Patients: As a result of the Cures Act, medical imaging exams and procedure reports are released immediately into your electronic medical record. You may view this report before your referring provider. If you have questions, please contact your health care provider. Indication: Wounds. Technique: Right foot, 3 views. Comparison: None. Findings/Impression: Bones: Alignment is normal. No displaced fractures. Subtle curvilinear mineralization adjacent to the 5th metatarsal head with adjacent soft tissue swelling. Early osteomyelitis is not excluded. If there is persistent clinical concern, consider MRI which is more sensitive study. Joint spaces: Unremarkable. Soft tissues: Focal soft tissue thickening about the 5th metatarsal base. Dictated by Kwabena Pineda MD @ 02/12/2023 4:03:50 PM (Electronically Signed)
[2023-02-12 15:17] LABS: Lactate* 1.9 mmol/L (0.5-1.9)
--- NOTE | 2023-02-12 15:17 | ED.NURSE ---
blood drawn, xray in room
[2023-02-12 15:19] LABS: Basophils Absolute Auto 0.02 K/uL (0.00-0.30); Basophils Percent Auto 0.3 % (0.0-3.0); Eosinophils Absolute Auto 0.12 K/uL (0.00-0.50); Eosinophils Percent Auto 1.6 % (0.0-7.0); Hematocrit 34.7 % (37.0-53.0); Hemoglobin* 11.1 gm/dL (13.5-17.5); Immature Granulocytes Abs Auto 0.01 K/uL (0.00-0.30); Immature Granulocytes Pct Auto 0.1 %; Lymphocytes Percent Auto 16.7 % (20-44); Mean Corpuscular HGB Conc 32 gm/dL (32-36); Mean Corpuscular Hemoglobin 31 pg (26-34); Mean Corpuscular Volume 98 fL (80-100); Monocytes Percent Auto 9.2 % (0.0-11.0); Neutrophils Percent Auto 72.1 % (42.0-72.0); Platelet Count* 319 K/uL (140-440); RDW Coefficient of Variation % 14.1 % (11.5-15.5); Red Blood Count 3.54 m/uL (4.30-5.90); White Blood Count* 7.65 K/uL (4.50-11.00)
[2023-02-12 15:27] LABS: Slide Review Reflex No
[2023-02-12 15:55] LABS: Chloride* 98 mmol/L (96-114)
[2023-02-12 15:56] LABS: Albumin* 3.8 g/dL (3.3-5.0); Potassium* 4.6 mmol/L (3.6-5.1); Sodium* 137 mmol/L (135-149)
[2023-02-12 15:58] LABS: Creatinine* 1.5 mg/dL (0.5-1.5); Est. Creatinine Clearance* 38.62; Estimated Glomerular Filt Rate 46 ml/min
[2023-02-12 15:59] LABS: Alanine Aminotransferase* 26 U/L (4-50); Alkaline Phosphatase* 94 U/L (40-150); Anion Gap 12 mEq/L (7-15); Aspartate Amino Transferase* 40 U/L (12-35); Bilirubin Total* 0.4 mg/dL (0.1-1.5); Blood Urea Nitrogen* 33 mg/dL (7-30); Carbon Dioxide* 27 mmol/L (20-32); Total Protein* 7.3 g/dL (6.0-8.3)
[2023-02-12 16:00] LABS: Calcium* 9.4 mg/dL (8.4-10.6)
[2023-02-12 16:01] LABS: Glucose* 355 mg/dL (60-115)
[2023-02-12 16:02] LABS: C Reactive Protein* 2.5 mg/dL (0.5-1.0)
[2023-02-12 16:03] LABS: Erythrocyte SedimentationRate* 89 mm/hr (2-15)
--- NOTE | 2023-02-12 18:20 | PM.IMHP1 ---
Hospitalist- H&P: HPI History of Present Illness Date Seen: 02/12/23 Chief complaint: Infection in R foot Narrative: Darek Bowers is a 82 year old male past medical history significant for hypertension, hyperlipidemia, atrial fibrillation on chronic anticoagulation, HFrEF, CAD, NSTEMI, diabetes mellitus type 2 with peripheral neuropathy, diabetic ulcer, CKD is admitted to the medical floor from the ED for further management bilateral foot ulcers, worsening despite outpatient antibiotic therapy. Patient reports history of chronic diabetic foot ulcers followed by Podiatry in outpatient clinic. Recently worsened following prolonged hospital stays for NSTEMI in November 2022 and exacerbation of heart failure in December 2022. Patient was then at [facility] in [place] through January. Most recently, patient was receiving wound cares with home care nurse. Last week home care nurse noted wounds of right foot to be worsening with foul order. Patient was seen by PCP and started on Cipro on 02/06/2023. Despite this antibiotic therapy, wounds have worsened and patient has had increasing pain to the right foot. Denies fevers or chills. Denies malaise or body aches. Denies chest pain or worsening shortness of breath. Denies recent nausea, vomiting, diarrhea. Patient is a nonsmoker smoker. Rare alcohol use. Most recent history includes a hospitalization for NSTEMI and ischemic cardiomyopathy at [facility] in November 2022. Per discharge notes, medical management was felt to be appropriate as culprit lesion appeared to be the saphenous vein graft to the OM and being perfused via collaterals from LAD. Patient has since been continued on Plavix, statin, metoprolol and losartan. Patient was then admitted to [facility] in December 2022 for management of acute decompensated HFrEF where a repeat echocardiogram showed an EF of 10-20%, previously 30%. During that hospital stay, Cardiology and Nephrology managed diuresis. A transluminal infarct in the mid apical segments was found. Recommendations at discharge were to continue with GDMT. Review of Systems Narrative: REVIEW OF SYSTEMS: Complete review of systems performed and negative unless otherwise stated in HPI or below. [facility] Medical History (Updated 02/12/23 @ 19:58 by Gudelia Park PA-C) Non-ST elevation HI (NSTEMI) ?I21.4 - Non-ST elevation (NSTEMI) myocardial infarction (ICD-10) CKD (chronic kidney disease) ?N18.9 - Chronic kidney disease, unspecified (ICD-10) Peripheral neuropathy ?G62.9 - Polyneuropathy, unspecified (ICD-10) CAD (coronary artery disease) ?I25.10 - Atherosclerotic heart disease of [place] coronary artery without angina pectoris (ICD-10) Diabetes mellitus ?E11.9 - Type 2 diabetes mellitus without complications (ICD-10) Social History What is your current living situation?: I presently have a place to live Problems where you live: no known problems Problems where you live details: n/a In the past 12 months, utilities in danger of being shut off: no In past 12 months, lack of transportation kept you from medical appts, meetings, work, or getting things needed for daily living: no In the past 12 mos, have been you worried that your food would run out before you had money to buy more?: never true In the past 12 mos, the food you bought just didn't last and you didn't have money to buy more?: never true Highest level of school completed/degree received: high school graduate Smoking Status: Never smoker How often do you have a drink containing alcohol: monthly or less How many standard drinks containing alcohol do you have on a typical day: 1 or 2 How often do you have six or more drinks on one occasion: Never AUDIT-C Alcohol total score: 1 Non-prescribed substance use: denies use Caffeine: Yes How often does anyone, including family, friends and others, physically hurt you: never How often does anyone, including family, friends and others, insult or talk down to you: never How often does anyone, including family, friends and others, threaten you with harm: never How often does anyone, including family, friends and others, scream or curse at you: never service: Yes ([employer]) Meds Home Medications and Allergies Home Medications Medication Instructions Recorded Confirmed Type atorvastatin 40 mg tablet 40 mg PO DAILY 12/09/22 02/12/23 History glipizide 10 mg tablet 10 mg PO BID 12/09/22 12/09/22 History insulin aspart U-100 100 unit/mL 8 - 10 unit subcut 3XD 12/09/22 02/12/23 History (3 mL) subcutaneous pen (Novolog FlexPen U-100 Insulin aspart) insulin glargine 100 unit/mL (3 12 unit subcut QPM 12/09/22 12/09/22 History mL) subcutaneous pen (Basaglar KwikPen U-100 Insulin) metoprolol succinate 50 mg 50 mg PO DAILY 12/09/22 12/09/22 History tablet,extended release 24 hr nitroglycerin 0.4 mg sublingual mg sublingual 12/09/22 History tablet apixaban 5 mg tablet (Eliquis) 5 mg PO BID 12/27/22 02/12/23 History clopidogrel 75 mg tablet 75 mg PO DAILY 12/27/22 02/12/23 History pantoprazole 40 mg tablet,delayed 40 mg PO DAILY 12/27/22 02/12/23 History release ciprofloxacin HCl 500 mg tablet 500 mg PO BID 02/12/23 02/12/23 History entnestro 24 - 26 mg PO BID 02/12/23 02/12/23 History furosemide 40 mg tablet 40 mg PO DAILY 02/12/23 02/12/23 History glipizide 5 mg tablet 2.5 mg PO DAILY 02/12/23 02/12/23 History metoprolol succinate 25 mg 25 mg PO DAILY 02/12/23 02/12/23 History tablet,extended release 24 hr sacubitril 24 mg-valsartan 26 mg 1 tab PO BID 02/12/23 02/12/23 History tablet (Entresto) spironolactone 25 mg tablet 25 mg PO DAILY 02/12/23 02/12/23 History Allergies Allergy/AdvReac Type Severity Reaction Status Date / Time No Known Drug Allergies Allergy Verified 02/12/23 12:54 Exam Narrative: Exam Narrative: PHYSICAL EXAM General: Very pleasant, conversant, NAD HEENT: Normocephalic, atraumatic, sclera white, EOMI, oral mucosa moist Cardiovascular: IRRR. +2 pitting edema bilateral lower extremities Pulmonary: CTA bilaterally without rhonchi, rales, expiratory wheezes. No dyspnea on room air Abdominal: Soft, nondistended, NTTP Neurological: Alert, answering questions appropriately, cranial nerves intact, no focal findings Extremities: No gross joint deformity or swelling. AROMI. Left lower extremity with darkened, thickened ulceration of heel. Right lower extremity with multiple ulcerations including area of Achilles, 2nd and 3rd digits, 1st and 5th metatarsal Skin: Warm, dry. Const: Vital Signs, click to edit/add: Vital Signs - 24 hr 02/12/23 12:37 02/12/23 14:33 02/12/23 14:34 Temperature 98.3 F Pulse Rate 70 72 Pulse Rate [Pulse Oximeter] 77 Respiratory Rate 18 Blood Pressure 109/62 Blood Pressure [Ri ght Upper Arm] 98/60 Pulse Oximetry 99 99 99 Oxygen Delivery Me thod Room Air 02/12/23 14:48 02/12/23 15:00 02/12/23 15:01 Temperature Pulse Rate 75 71 Pulse Rate [Pulse Oximeter] Respiratory Rate Blood Pressure 104/65 Blood Pressure [Ri ght Upper Arm] Pulse Oximetry 98 100 100 Oxygen Delivery Me thod 02/12/23 15:02 02/12/23 15:30 02/12/23 15:31 Temperature Pulse Rate 74 75 79 Pulse Rate [Pulse Oximeter] Respiratory Rate Blood Pressure 114/61 Blood Pressure [Ri ght Upper Arm] Pulse Oximetry 96 97 100 Oxygen Delivery Me thod 02/12/23 16:00 02/12/23 16:01 02/12/23 16:02 Temperature Pulse Rate 79 82 72 Pulse Rate [Pulse Oximeter] Respiratory Rate Blood Pressure 112/65 Blood Pressure [Ri ght Upper Arm] Pulse Oximetry 98 96 99 Oxygen Delivery Me thod 02/12/23 16:30 02/12/23 16:31 02/12/23 16:32 Temperature Pulse Rate 72 73 76 Pulse Rate [Pulse Oximeter] Respiratory Rate Blood Pressure 102/66 Blood Pressure [Ri ght Upper Arm] Pulse Oximetry 99 98 96 Oxygen Delivery Me thod 02/12/23 17:00 02/12/23 17:01 02/12/23 17:30 Temperature Pulse Rate 76 74 82 Pulse Rate [Pulse Oximeter] Respiratory Rate Blood Pressure 110/63 Blood Pressure [Ri ght Upper Arm] Pulse Oximetry 99 98 97 Oxygen Delivery Me thod 02/12/23 17:31 02/12/23 17:32 02/12/23 18:00 Temperature Pulse Rate 75 82 73 Pulse Rate [Pulse Oximeter] Respiratory Rate Blood Pressure 117/58 L Blood Pressure [Ri ght Upper Arm] Pulse Oximetry 95 96 97 Oxygen Delivery Me thod 02/12/23 18:01 Temperature Pulse Rate 73 Pulse Rate [Pulse Oximeter] Respiratory Rate Blood Pressure 121/71 Blood Pressure [Ri ght Upper Arm] Pulse Oximetry 99 Oxygen Delivery Ok thod Hospitalist - H&P: Result Labs Labs: Short CBC 02/12/23 Range/Units 15:12 WBC 7.65 (4.50-11.00) K/uL Hgb 11.1 L (13.5-17.5) gm/dL Hct 34.7 L (37.0-53.0) % Plt Count 319 (140-440) K/uL BMP 02/12/23 15:12 Sodium 137 Potassium 4.6 Chloride 98 Carbon Dioxide 27 BUN 33 H Creatinine 1.5 Glucose 355 H* Calcium 9.4 Liver Function 02/12/23 Range/Units 15:12 Total Bilirubin 0.4 (0.1-1.5) mg/dL AST 40 H (12-35) U/L ALT 26 (4-50) U/L Alkaline Phosphatase 94 (40-150) U/L Albumin 3.8 (3.3-5.0) g/dL ECG Prior ECG tracings: available for review Imaging Right foot plain film: Radiologist's impression: Findings/Impression: Bones: Alignment is normal. No displaced fractures. Subtle curvilinear mineralization adjacent to the 5th metatarsal head with adjacent soft tissue swelling. Early osteomyelitis is not excluded. If there is persistent clinical concern, consider MRI which is more sensitive study. Joint spaces: Unremarkable. Soft tissues: Focal soft tissue thickening about the 5th metatarsal base. 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 Unknown chronicity. -no leukocytosis, vital signs stable, afebrile -MRI right foot and TRAN US ordered. Lower arterial study findings from 11/2022 as above -vancomycin and Zosyn, pharmacy to assist with renal dosing -General Surgery consult tomorrow. -wound cares, offloading Status: Acute (2) Diabetes mellitus: Problem comment: -A1c ordered -POC glucose ACHS and p.r.n., medium insulin sliding scale, diabetic diet -usual home dose aspart 10 units tid, glargine 25 units at bedtime. Will start with 6 units t.i.d. and 15 units at bedtime, adjusting as necessary -continue glipizide Status: Acute (3) Atrial fibrillation: Problem comment: -with history of LADAN thrombus -rate controlled, continue chronic anticoagulation with apixaban Status: Acute (4) HFrEF (heart failure with reduced ejection fraction): Problem comment: -most recent echo reported as EF 10-20%, previously 30% -receiving 1 L maintenance IVF for acute infection, monitor for fluid overload -continue home dose furosemide, may need to consider IV diuresis pending hospital course Status: Acute (5) Hypertension: Problem comment: -with history of NSTEMI November 2022, CAD, history of CABG -continue Plavix, metoprolol, losartan Status: Acute (6) Hyperlipidemia: Problem comment: -continue statin in addition to medications as listed above Status: Acute (7) CKD (chronic kidney disease): Problem comment: -creatinine 1.5, baseline 1.2-1.9 (as high as 2.28 during recent hospitalization), with history of hyperkalemia -avoid nephrotoxic medications, renally dose antibiotics, monitor Status: Acute Plan CODE: Full as discussed with patient and VTE PPX: apixaban Disposition: Observation
[2023-02-12] MEDS: ACETAMINOPHEN 325 MG TABLET PO (20:12)
[2023-02-12] MEDS: PIPERACILLIN/TAZOBACTAM 3.375 GM in 0.9 % SODIUM CHLORIDE Mini-bag 100 ML IVPB (20:13)
[2023-02-12] MEDS: LACTATED RINGERS 1000 ML 1,000 ML 100 ML IV (21:28)
[2023-02-12] MEDS: SACUBITRIL 24 mg/VALSARTAN 26 mg TABLET 1 TAB PO (22:18)
[2023-02-12] MEDS: APIXABAN 5 MG TABLET PO (22:18)
[2023-02-12] MEDS: ATORVASTATIN CALCIUM 40 MG TABLET PO (22:19)
--- NOTE | 2023-02-12 23:01 | PC.NURSE ---
Pt admitted from ED d/t foot wound infection @ ~1815 on stretcher w/ spouse, May. VSS, RA. Denies pain. CHINIK- bilateral hearing aids. Wears glasses. LE neuropathy, edema. R calf warm, reddened. Tolerating regular diet- 100% of dinner. Blood sugars mid 300s- insulin given. Last BM 2 days ago. Wounds on right 3rd toe, right lateral foot, and bilateral heels. PIV in left AC- LR @ 100 cc/hr in b/t abx. MRI tomorrow- MRI check list complete. Spouse to return tomorrow AM. Will continue to monitor, follow POC, and keep pt and family updated. Tatyana Jimenez RN
[2023-02-13] MEDS: PIPERACILLIN/TAZOBACTAM 3.375 GM in 0.9 % SODIUM CHLORIDE Mini-bag 100 ML IVPB ×3 (00:30→12:01)
[2023-02-13] MEDS: ACETAMINOPHEN 325 MG TABLET 650 MG PO ×3 (00:31→12:00)
[2023-02-13 02:46] VITALS: BP 90/52; PULSE 68; RESP 18; TEMP 36.4; O2SAT 96
[2023-02-13 03:43] VITALS: BP 89/54; PULSE 61
[2023-02-13 06:33] LABS: Basophils Absolute Auto 0.02 K/uL (0.00-0.30); Basophils Percent Auto 0.3 % (0.0-3.0); Eosinophils Absolute Auto 0.23 K/uL (0.00-0.50); Hemoglobin* 9.9 gm/dL (13.5-17.5); Immature Granulocytes Abs Auto 0.05 K/uL (0.00-0.30); Immature Granulocytes Pct Auto 0.9 %; Lymphocytes Absolute Auto 1.42 K/uL (0.90-2.90); Lymphocytes Percent Auto 24.5 % (20-44); Mean Corpuscular HGB Conc 32 gm/dL (32-36); Mean Corpuscular Hemoglobin 31 pg (26-34); Mean Corpuscular Volume 98 fL (80-100); Monocytes Percent Auto 9.8 % (0.0-11.0); Neutrophils Percent Auto 60.5 % (42.0-72.0); Platelet Count* 298 K/uL (140-440); RDW Coefficient of Variation % 14.1 % (11.5-15.5); Red Blood Count 3.17 m/uL (4.30-5.90); White Blood Count* 5.79 K/uL (4.50-11.00)
[2023-02-13 06:42] LABS: Slide Review Reflex No
[2023-02-13 06:52] LABS: Chloride* 104 mmol/L (96-114); Potassium* 3.6 mmol/L (3.6-5.1); Sodium* 139 mmol/L (135-149)
[2023-02-13 06:55] LABS: Creatinine* 1.4 mg/dL (0.5-1.5); Est. Creatinine Clearance* 41.38; Estimated Glomerular Filt Rate 50 ml/min
[2023-02-13 06:56] LABS: Anion Gap 7 mEq/L (7-15); Blood Urea Nitrogen* 26 mg/dL (7-30); Calcium* 8.3 mg/dL (8.4-10.6); Carbon Dioxide* 28 mmol/L (20-32); Glucose* 81 mg/dL (60-115); Hemoglobin A1C* 7.93 % (0-5.6)
--- NOTE | 2023-02-13 06:57 | PC.NURSE ---
[id number]: Patient pleasant and cooperative. A&Ox3. Denies pain. NPO at 0000 for possible surgery. A1/4ww. Afebrile. Soft BP overnight. Patient denies dizziness/nausea/vision changes/weakness. Multiple chronic ulcers to bilateral feet.
[2023-02-13 06:59] LABS: C Reactive Protein* 2.9 mg/dL (0.5-1.0)
--- NOTE | 2023-02-13 07:00 | CRLHL7_ITS ---
For Patients: As a result of the Century Cures Act, medical imaging exams and procedure reports are released immediately into your electronic medical record. You may view this report before your referring provider. If you have questions, please contact your health care provider. INDICATION: Nonhealing wound. COMPARISON: Right foot radiograph 02/12/2023. TECHNIQUE: Noncontrast MRI scan of the right foot was performed. FINDINGS: This examination is suboptimal secondary to patient motion. There is diffuse swelling and high STIR signal reticulation throughout the subcutaneous tissues of the foot which may be seen with edema as well as cellulitis in the proper clinical setting. No focal fluid collection is identified to indicate abscess. No abnormal confluent low T1 signal changes are identified within the bones of the foot to indicate acute osteomyelitis. If there is a continued clinical concern for osteomyelitis then consider assessment with radionuclide labeled white blood cell scan. No acute fracture or osteonecrosis is identified. IMPRESSION: 1. Suboptimal examination secondary to motion artifact. 2. Diffuse swelling and high STIR signal throughout the subcutaneous tissues of the foot consistent with cellulitis in the proper clinical setting. 3. No definite evidence of osteomyelitis. If there is continued clinical concern for osteomyelitis then consider evaluation with radionuclide labeled white blood cell scan. Dictated by Isac Jensen MD @ 02/13/2023 12:48:19 PM (Electronically Signed)
[2023-02-13] MEDS: glipiZIDE 5 MG TABLET 2.5 MG PO (07:59)
[2023-02-13 08:06] VITALS: BP 94/56; PULSE 69; RESP 18; TEMP 36.4; O2SAT 94
--- NOTE | 2023-02-13 08:16 | P.GSCN_ITS ---
History of Present Illness Consult details Date Seen: 02/13/23 Consult date: 02/13/23 Narrative: The patient is an 82-year-old male who presented to the emergency room with worsening right foot pain and wounds. His history is that he has a history of heart failure, coronary artery disease status post four-vessel bypass 20 years ago, type 2 diabetes with neuropathy, chronic kidney disease, atrial fibrillation on Eliquis with a recent history of an ID requiring hospitalization in November as well as a heart failure exacerbation requiring hospitalization in December. In December his ejection fraction was found to be 10-20%. The patient had been discharged to [facility] in [place] and has been getting home care since. His states that he developed the heel wounds at his hospitalization in December. In August he was noted to have a wound on his toe on the right foot. This got worse over the summer but now it is the worst it has been. Last Sunday it looked worse and had a foul odor. He went in to see his primary care doctor who put him on Cipro. Over the weekend it continued to get worse and he was advised to come into the ER. He had an x-ray in the ER which did not show signs of osteomyelitis or gas in the foot. She states that the wound on the toe developed from a device he was using for his hammertoes. He has a blister on the side of his right foot which developed from pressure from his edema wraps. The patient has neuropathy and denies pain to the toe. He states that his pain is primarily on the right lateral foot but other than that he does not have sensation because of his neuropathy. He has seen a electrical and instrumentation manager in [place] at [facility] - Dr. Valdovinos. His Moe states that when they went in to see him in September they painted the area with Betadine. He did see [facility] in November. Ultrasound was performed which showed monophasic waveforms in that right foot. CO2 was normal and so they felt as though the toe wound would heal. The patient had moderate disease on the right lower leg below the popliteal artery. [facility] Medical History (Updated 02/13/23 @ 12:18 by Denisse Morris MD) Non-ST elevation ID (NSTEMI) ?I21.4 - Non-ST elevation (NSTEMI) myocardial infarction (ICD-10) CKD (chronic kidney disease) ?N18.9 - Chronic kidney disease, unspecified (ICD-10) Peripheral neuropathy ?G62.9 - Polyneuropathy, unspecified (ICD-10) CAD (coronary artery disease) ?I25.10 - Atherosclerotic heart disease of [place] coronary artery without angina pectoris (ICD-10) Diabetes mellitus ?E11.9 - Type 2 diabetes mellitus without complications (ICD-10) Surgical History (Updated 02/13/23 @ 09:11 by Denisse Morris MD) S/P CABG x 4 ?Z95.1 - Presence of aortocoronary bypass graft (ICD-10) Social History What is your current living situation?: I presently have a place to live Problems where you live: no known problems Problems where you live details: n/a In the past 12 months, utilities in danger of being shut off: no In past 12 months, lack of transportation kept you from medical appts, meetings, work, or getting things needed for daily living: no In the past 12 mos, have been you worried that your food would run out before you had money to buy more?: never true In the past 12 mos, the food you bought just didn't last and you didn't have money to buy more?: never true Highest level of school completed/degree received: high school graduate Smoking Status: Never smoker How often do you have a drink containing alcohol: monthly or less How many standard drinks containing alcohol do you have on a typical day: 1 or 2 How often do you have six or more drinks on one occasion: Never AUDIT-C Alcohol total score: 1 Non-prescribed substance use: denies use Caffeine: Yes How often does anyone, including family, friends and others, physically hurt you : never How often does anyone, including family, friends and others, insult or talk down to you: never How often does anyone, including family, friends and others, threaten you with harm: never How often does anyone, including family, friends and others, scream or curse at you: never service: Yes ([employer]) Meds Home Medications and Allergies Home Medications Medication Instructions Recorded Confirmed Type atorvastatin 40 mg tablet 40 mg PO DAILY 12/09/22 02/12/23 History glipizide 10 mg tablet 10 mg PO BID 12/09/22 12/09/22 History insulin aspart U-100 100 unit/mL 8 - 10 unit subcut 3XD 12/09/22 02/12/23 History (3 mL) subcutaneous pen (Novolog FlexPen U-100 Insulin aspart) insulin glargine 100 unit/mL (3 12 unit subcut QPM 12/09/22 12/09/22 History mL) subcutaneous pen (Basaglar KwikPen U-100 Insulin) metoprolol succinate 50 mg 50 mg PO DAILY 12/09/22 12/09/22 History tablet,extended release 24 hr nitroglycerin 0.4 mg sublingual mg sublingual 12/09/22 History tablet apixaban 5 mg tablet (Eliquis) 5 mg PO BID 12/27/22 02/12/23 History clopidogrel 75 mg tablet 75 mg PO DAILY 12/27/22 02/12/23 History pantoprazole 40 mg tablet,delayed 40 mg PO DAILY 12/27/22 02/12/23 History release ciprofloxacin HCl 500 mg tablet 500 mg PO BID 02/12/23 02/12/23 History entnestro 24 - 26 mg PO BID 02/12/23 02/12/23 History furosemide 40 mg tablet 40 mg PO DAILY 02/12/23 02/12/23 History glipizide 5 mg tablet 2.5 mg PO DAILY 02/12/23 02/12/23 History metoprolol succinate 25 mg 25 mg PO DAILY 02/12/23 02/12/23 History tablet,extended release 24 hr sacubitril 24 mg-valsartan 26 mg 1 tab PO BID 02/12/23 02/12/23 History tablet (Entresto) spironolactone 25 mg tablet 25 mg PO DAILY 02/12/23 02/12/23 History Allergies Allergy/AdvReac Type Severity Reaction Status Date / Time No Known Drug Allergies Allergy Verified 02/12/23 12:54 Exam Narrative: Exam Narrative: General: No acute distress Respiratory: Breathing nonlabored on room air CV: Regular rate. Bilateral lower feet with edema. Unable to palpate pedal pulses. Feet do appear warm Extremities: Right foot: Area of eschar on the lateral aspect of the heel. This measures approximately 1.5 cm. No fluctuance or erythema. No tenderness. Patient does not have sensation to light touch on his left foot. Right foot: Eschar noted on the posterior heel. This measures approximately 2 cm. There is no tenderness. No fluctuance or erythema here. On the 3rd toe, on the dorsal aspect he has an area of eschar. There is no fluctuance or purulence here. This is nontender. This appears to be deep and likely goes down to at least tendon though it is impossible to stage at this time. On his 5th metatarsal head on the lateral aspect he has a blister. This 5th metatarsal head is tender to palpation. There is blanching erythema about his dorsal foot extending up to the midfoot. Const: Vital Signs, click to edit/add: Vital Signs - 24 hr 02/12/23 12:37 02/12/23 14:33 02/12/23 14:34 Temperature 98.3 F Pulse Rate 70 72 Pulse Rate [Pulse Oximeter] 77 Respiratory Rate 18 Blood Pressure 109/62 Blood Pressure [Ri ght Arm] Blood Pressure [Ri ght Upper Arm] 98/60 Pulse Oximetry 99 99 99 Oxygen Delivery Me thod Room Air 02/12/23 14:48 02/12/23 15:00 02/12/23 15:01 Temperature Pulse Rate 75 71 Pulse Rate [Pulse Oximeter] Respiratory Rate Blood Pressure 104/65 Blood Pressure [Ri ght Arm] Blood Pressure [Ri ght Upper Arm] Pulse Oximetry 98 100 100 Oxygen Delivery Me thod 02/12/23 15:02 02/12/23 15:30 02/12/23 15:31 Temperature Pulse Rate 74 75 79 Pulse Rate [Pulse Oximeter] Respiratory Rate Blood Pressure 114/61 Blood Pressure [Ri ght Arm] Blood Pressure [Ri ght Upper Arm] Pulse Oximetry 96 97 100 Oxygen Delivery Me thod 02/12/23 16:00 02/12/23 16:01 02/12/23 16:02 Temperature Pulse Rate 79 82 72 Pulse Rate [Pulse Oximeter] Respiratory Rate Blood Pressure 112/65 Blood Pressure [Ri ght Arm] Blood Pressure [Ri ght Upper Arm] Pulse Oximetry 98 96 99 Oxygen Delivery Me thod 02/12/23 16:30 02/12/23 16:31 02/12/23 16:32 Temperature Pulse Rate 72 73 76 Pulse Rate [Pulse Oximeter] Respiratory Rate Blood Pressure 102/66 Blood Pressure [Ri ght Arm] Blood Pressure [Ri ght Upper Arm] Pulse Oximetry 99 98 96 Oxygen Delivery Me thod 02/12/23 17:00 02/12/23 17:01 02/12/23 17:30 Temperature Pulse Rate 76 74 82 Pulse Rate [Pulse Oximeter] Respiratory Rate Blood Pressure 110/63 Blood Pressure [Ri ght Arm] Blood Pressure [Ri ght Upper Arm] Pulse Oximetry 99 98 97 Oxygen Delivery Me thod 02/12/23 17:31 02/12/23 17:32 02/12/23 18:00 Temperature Pulse Rate 75 82 73 Pulse Rate [Pulse Oximeter] Respiratory Rate Blood Pressure 117/58 L Blood Pressure [Ri ght Arm] Blood Pressure [Ri ght Upper Arm] Pulse Oximetry 95 96 97 Oxygen Delivery Me thod 02/12/23 18:01 02/12/23 18:19 02/12/23 18:19 Temperature 97.5 F L Pulse Rate 73 Pulse Rate [Pulse Oximeter] 78 Respiratory Rate 16 16 Blood Pressure 121/71 Blood Pressure [Ri ght Arm] 110/84 Blood Pressure [Ri ght Upper Arm] Pulse Oximetry 99 98 97 Oxygen Delivery Me thod Room Air Room Air 02/12/23 18:55 02/12/23 18:55 02/12/23 22:27 Temperature 97.5 F L 97.8 F Pulse Rate Pulse Rate [Pulse Oximeter] 78 82 Respiratory Rate 16 20 Blood Pressure Blood Pressure [Ri ght Arm] 110/84 108/81 Blood Pressure [Ri ght Upper Arm] Pulse Oximetry 97 97 99 Oxygen Delivery Me thod Room Air Room Air Room Air 02/12/23 23:00 02/13/23 02:46 02/13/23 03:43 Temperature 97.5 F L Pulse Rate Pulse Rate [Pulse Oximeter] 68 61 Respiratory Rate 20 18 Blood Pressure Blood Pressure [Ri ght Arm] 90/52 L 89/54 L Blood Pressure [Ri ght Upper Arm] Pulse Oximetry 99 96 Oxygen Delivery Me thod Room Air Room Air 02/13/23 08:06 Temperature 97.5 F L Pulse Rate Pulse Rate [Pulse Oximeter] 69 Respiratory Rate 18 Blood Pressure Blood Pressure [Ri ght Arm] 94/56 L Blood Pressure [Ri ght Upper Arm] Pulse Oximetry 94 Oxygen Delivery Me thod Room Air Results Labs Labs: Abnormal lab results 02/12/23 02/13/23 Range/Units 15:12 05:59 RBC 3.54 L 3.17 L (4.30-5.90) m/uL Hgb 11.1 L 9.9 L (13.5-17.5) gm/dL Hct 34.7 L 31.0 L (37.0-53.0) % Neut % (Auto) 72.1 H (42.0-72.0) % Lymph % (Auto) 16.7 L (20-44) % ESR 89 H (2-15) mm/hr BUN 33 H (7-30) mg/dL Glucose 355 H* (60-115) mg/dL Hemoglobin A1c 7.93 H (0-5.6) % Calcium 8.3 L (8.4-10.6) mg/dL AST 40 H (12-35) U/L C-Reactive Protein 2.5 H 2.9 H (0.5-1.0) mg/dL Diabetes panel 02/12/23 02/13/23 Range/Units 15:12 05:59 Sodium 137 139 (135-149) mmol/L Potassium 4.6 3.6 (3.6-5.1) mmol/L Chloride 98 104 (96-114) mmol/L Carbon Dioxide 27 28 (20-32) mmol/L BUN 33 H 26 (7-30) mg/dL Creatinine 1.5 1.4 (0.5-1.5) mg/dL Glucose 355 H* 81 (60-115) mg/dL Hemoglobin A1c 7.93 H (0-5.6) % Calcium 9.4 8.3 L (8.4-10.6) mg/dL AST 40 H (12-35) U/L ALT 26 (4-50) U/L Alkaline Phosphatase 94 (40-150) U/L Total Protein 7.3 (6.0-8.3) g/dL Albumin 3.8 (3.3-5.0) g/dL Calcium panel 02/12/23 02/13/23 Range/Units 15:12 05:59 Calcium 9.4 8.3 L (8.4-10.6) mg/dL Albumin 3.8 (3.3-5.0) g/dL Pituitary panel 02/12/23 02/13/23 Range/Units 15:12 05:59 Sodium 137 139 (135-149) mmol/L Potassium 4.6 3.6 (3.6-5.1) mmol/L Chloride 98 104 (96-114) mmol/L Carbon Dioxide 27 28 (20-32) mmol/L BUN 33 H 26 (7-30) mg/dL Creatinine 1.5 1.4 (0.5-1.5) mg/dL Glucose 355 H* 81 (60-115) mg/dL Calcium 9.4 8.3 L (8.4-10.6) mg/dL Adrenal panel 02/12/23 02/13/23 Range/Units 15:12 05:59 Sodium 137 139 (135-149) mmol/L Potassium 4.6 3.6 (3.6-5.1) mmol/L Chloride 98 104 (96-114) mmol/L Carbon Dioxide 27 28 (20-32) mmol/L BUN 33 H 26 (7-30) mg/dL Creatinine 1.5 1.4 (0.5-1.5) mg/dL Glucose 355 H* 81 (60-115) mg/dL Calcium 9.4 8.3 L (8.4-10.6) mg/dL Total Bilirubin 0.4 (0.1-1.5) mg/dL AST 40 H (12-35) U/L ALT 26 (4-50) U/L Alkaline Phosphatase 94 (40-150) U/L Total Protein 7.3 (6.0-8.3) g/dL Albumin 3.8 (3.3-5.0) g/dL All other labs normal. Imaging Additional studies: Diagnostic Imaging Report Patient: Darek Bowers MR#: [id number] : 1940 Loc: ED Service Date: 02/12/23 Indication: Wounds. Technique: Right foot, 3 views. Comparison: None. Findings/Impression: Bones: Alignment is normal. No displaced fractures. Subtle curvilinear mineralization adjacent to the 5th metatarsal head with adjacent soft tissue swelling. Early osteomyelitis is not excluded. If there is persistent clinical concern, consider MRI which is more sensitive study. Joint spaces: Unremarkable. Soft tissues: Focal soft tissue thickening about the 5th metatarsal base. 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 He is having increased pain and his states that his wounds have worsened more recently. These have been accumulated since August as he has had multiple recent hospitalizations. Review of his records from outside hospitals both [facility] and [facility] show that he has been seen for this previously and has established care with both vascular surgery and Podiatry. X-ray does not show gas or osteomyelitis. Could consider MRI though patient with normal white count at this time. There is some redness to the skin, however it appears as though he has dry gangrene at this time as there is no purulence and the eschar is dry. Whether not he has a potential revascularization target I would leave up to vascular surgery. I would recommend that he be seen again by vascular surgery given his new foot pain which may be ischemic in nature - additionally if he does require amputation, he may be at risk for wound healing. I recommend that this be done expeditiously. Recommend continued antibiotics until erythema improved - consider doxycycline for 2 weeks Betadine paint to eschar on toe and heels Offloading/avoid pressure on wounds Recommend that he follow-up with his regular electrical and instrumentation manager as an outpatient in [place] within the week.
[2023-02-13] MEDS: 5 % DEXTROSE IN LAC RINGER'S 1,000 ML 125 ML IV (08:53)
[2023-02-13] MEDS: METOPROLOL SUCCINATE (XL) 50 MG TAB 25 MG PO (08:55)
[2023-02-13] MEDS: SPIRONOLACTONE 25 MG TABLET PO (08:56)
[2023-02-13] MEDS: SACUBITRIL 24 mg/VALSARTAN 26 mg TABLET 1 TAB PO (08:56)
[2023-02-13] MEDS: FUROSEMIDE 40 MG TABLET PO (08:56)
[2023-02-13] MEDS: CLOPIDOGREL 75 MG TABLET PO (08:57)
[2023-02-13] MEDS: OMEPRAZOLE 20 MG CAPSULE DR 40 MG PO (08:57)
[2023-02-13 12:06] VITALS: BP 96/57; PULSE 78; RESP 14; TEMP 36.3; O2SAT 94
--- NOTE | 2023-02-13 14:45 | PC.NURSE ---
Discharge: Patient pleasant and cooperative, [place]. Patient hypotensive, but stable, lungs clear, BS WNL, IV removed, catheter intact. Patient SBA with walker. Patient denies pain in his feet. Heel wound on the right heel has mepilex applied with a small amount of drainage. Other food wounds are scabbed over and open to air. Patient urinating and tolerating regular diet. Patient signed belongings sheet and discharge form. Patient and had no further questions regarding discharge. Patient left the floor by wheelchair to home at 1441.
--- NOTE | 2023-02-13 15:01 | PM.DS1 ---
DS: Providers Provider Date Seen: 02/13/23 Date of admission: 02/12/23 20:27 Primary care physician: Melquiades Man MD Admitting Clinician: Angelica Lin MD Attending Physician on discharge: Fausto Ball MD Date of Discharge: 02/13/23 DS: Diagnosis Discharge Diagnosis (1) Dry gangrene: Status: Acute Problem details: Involving the 3rd toe on the right. After consultation with surgery decision was made not to amputate the toe today. Probably needs an amputation is is toe does not appear viable but this is not urgent and may benefit from arterial evaluation 1st. (2) Cellulitis of right foot: Status: Acute Problem details: Clinically much improved today compared to the picture I saw of yesterday. Will continue outpatient antibiotics with finishing a course of Cipro, he is about prison done and also course of doxycycline. (3) Decubitus ulcer, heel, left, unstageable: Status: Acute Problem details: Outpatient podiatry care (4) Decubitus ulcer, heel, right, unstageable: Status: Acute Problem details: Outpatient podiatry care (5) HFrEF (heart failure with reduced ejection fraction): Status: Acute Problem details: -most recent echo reported as EF 10-20%, previously 30% Resume home medications. Heart failure appears to be fairly well compensated. Ongoing titration of guideline directed medical therapy with Dr. Manuel of [facility] (6) Hypertension: Status: Acute Problem details: -with history of NSTEMI November 2022, CAD, history of CABG -continue Plavix, metoprolol, losartan (7) CKD (chronic kidney disease): Status: Acute Problem details: -creatinine 1.5, baseline 1.2-1.9 (as high as 2.28 during recent hospitalization), with history of hyperkalemia (8) Atrial fibrillation: Status: Acute Problem details: -with history of LADAN thrombus -rate controlled, continue chronic anticoagulation with apixaban (9) CAD (coronary artery disease): Status: Acute Problem details: Asymptomatic (10) Diabetes mellitus: Status: Acute Problem details: -A1c ordered -POC glucose ACHS and p.r.n., medium insulin sliding scale, diabetic diet -usual home dose aspart 10 units tid, glargine 25 units at bedtime. Will start with 6 units t.i.d. and 15 units at bedtime, adjusting as necessary -continue glipizide (11) Peripheral vascular disease: Status: Acute Problem details: Return to [place] for ongoing vascular evaluation. (12) Diabetic peripheral neuropathy: Status: Acute Problem details: Continue to closely monitor feet as an outpatient DS: Summary Hospital Course Hospital Course: Darek Bowers is a 82 year old male past medical history significant for hypertension, hyperlipidemia, atrial fibrillation on chronic anticoagulation, HFrEF, CAD, NSTEMI, diabetes mellitus type 2 with peripheral neuropathy, diabetic ulcer, CKD is admitted to the medical floor from the ED for further management bilateral foot ulcers, worsening despite outpatient antibiotic therapy. Patient reports history of chronic diabetic foot ulcers followed by Podiatry in outpatient clinic. Recently worsened following prolonged hospital stays for NSTEMI in November 2022 and exacerbation of heart failure in December 2022. Patient was then at [facility] in [place] through January. Most recently, patient was receiving wound cares with home care nurse. Last week home care nurse noted wounds of right foot to be worsening with foul order. Patient was seen by PCP and started on Cipro on 02/06/2023. Despite this antibiotic therapy, wounds have worsened and patient has had increasing pain to the right foot. Denies fevers or chills. Denies malaise or body aches. Denies chest pain or worsening shortness of breath. Denies recent nausea, vomiting, diarrhea. Patient is a nonsmoker smoker. Rare alcohol use. Most recent history includes a hospitalization for NSTEMI and ischemic cardiomyopathy at [facility] in November 2022. Per discharge notes, medical management was felt to be appropriate as culprit lesion appeared to be the saphenous vein graft to the OM and being perfused via collaterals from LAD. Patient has since been continued on Plavix, statin, metoprolol and losartan. Patient was then admitted to [facility] in December 2022 for management of acute decompensated HFrEF where a repeat echocardiogram showed an EF of 10-20%, previously 30%. During that hospital stay, Cardiology and Nephrology managed diuresis. A transluminal infarct in the mid apical segments was found. Recommendations at discharge were to continue with GDMT. At the time of admission he was felt to have cellulitis of his right foot with associated gangrene of the middle toe. Heel ulcerations and lateral 5th metatarsal area skin problems were also noted. He was not thought to have critical ischemia. He had warm feet with sluggish capillary refill. Records from [facility] from November 2022 vascular evaluation were also noted. He was staff follow-up with his vascular evaluation but this was postponed secondary to his cardiac problems in December. He was treated with vancomycin and piperacillin tazobactam. He reports no other concerns and particularly no cardiac problems. Status at Discharge Functional status at discharge: uses cane/walker Overall status at discharge: patient is progressing back to baseline Time Spent with Patient Time attestation: Total time spent providing and/or coordinating discharge services: 55 minutes in coordination of care and discussing with patient and ongoing evaluation management of vascular disease and diabetic foot ulcers Time spent: Greater than 30 minutes Exam Narrative: Exam Narrative: Respirations are clear to auscultation. Cardiovascular: S1, S2, regular rate and rhythm. Today his foot has mild edema. There is black eschar over the dorsum of his 3rd toe. The toes still warm to touch and has very sluggish capillary refill at the tip. There is no significant discharge. He has a small area of shallow ulceration on his right heel and on his left heel with black eschar. Small area of black eschar over the hypothenar eminence on the right foot. Open ulcers or draining wounds noted. He has no erythema on his foot. I do not palpate a pedal pulse on the right but the foot is warm to touch with fair capillary refill. Const: Vital Signs, click to edit/add: Vital Signs - 24 hr 02/12/23 15:02 02/12/23 15:30 02/12/23 15:31 Temperature Pulse Rate 74 75 79 Pulse Rate [Pulse Oximeter] Respiratory Rate Blood Pressure 114/61 Blood Pressure [Ri ght Arm] Pulse Oximetry 96 97 100 Oxygen Delivery Me thod 02/12/23 16:00 02/12/23 16:01 02/12/23 16:02 Temperature Pulse Rate 79 82 72 Pulse Rate [Pulse Oximeter] Respiratory Rate Blood Pressure 112/65 Blood Pressure [Ri ght Arm] Pulse Oximetry 98 96 99 Oxygen Delivery Me thod 02/12/23 16:30 02/12/23 16:31 02/12/23 16:32 Temperature Pulse Rate 72 73 76 Pulse Rate [Pulse Oximeter] Respiratory Rate Blood Pressure 102/66 Blood Pressure [Ri ght Arm] Pulse Oximetry 99 98 96 Oxygen Delivery Me thod 02/12/23 17:00 02/12/23 17:01 02/12/23 17:30 Temperature Pulse Rate 76 74 82 Pulse Rate [Pulse Oximeter] Respiratory Rate Blood Pressure 110/63 Blood Pressure [Ri ght Arm] Pulse Oximetry 99 98 97 Oxygen Delivery Me thod 02/12/23 17:31 02/12/23 17:32 02/12/23 18:00 Temperature Pulse Rate 75 82 73 Pulse Rate [Pulse Oximeter] Respiratory Rate Blood Pressure 117/58 L Blood Pressure [Ri ght Arm] Pulse Oximetry 95 96 97 Oxygen Delivery Me thod 02/12/23 18:01 02/12/23 18:19 02/12/23 18:19 Temperature 97.5 F L Pulse Rate 73 Pulse Rate [Pulse Oximeter] 78 Respiratory Rate 16 16 Blood Pressure 121/71 Blood Pressure [Ri ght Arm] 110/84 Pulse Oximetry 99 98 97 Oxygen Delivery Me thod Room Air Room Air 02/12/23 18:55 02/12/23 18:55 02/12/23 22:27 Temperature 97.5 F L 97.8 F Pulse Rate Pulse Rate [Pulse Oximeter] 78 82 Respiratory Rate 16 20 Blood Pressure Blood Pressure [Ri ght Arm] 110/84 108/81 Pulse Oximetry 97 97 99 Oxygen Delivery Me thod Room Air Room Air Room Air 02/12/23 23:00 02/13/23 02:46 02/13/23 03:43 Temperature 97.5 F L Pulse Rate Pulse Rate [Pulse Oximeter] 68 61 Respiratory Rate 20 18 Blood Pressure Blood Pressure [Ri ght Arm] 90/52 L 89/54 L Pulse Oximetry 99 96 Oxygen Delivery Me thod Room Air Room Air 02/13/23 08:06 02/13/23 08:06 02/13/23 08:06 Temperature 97.5 F L Pulse Rate Pulse Rate [Pulse Oximeter] 69 69 Respiratory Rate 18 18 18 Blood Pressure Blood Pressure [Ri ght Arm] 94/56 L Pulse Oximetry 94 94 Oxygen Delivery Me thod Room Air Room Air 02/13/23 12:06 Temperature 97.4 F L Pulse Rate Pulse Rate [Pulse Oximeter] 78 Respiratory Rate 14 Blood Pressure Blood Pressure [Ri ght Arm] 96/57 L Pulse Oximetry 94 Oxygen Delivery Me thod Room Air DS: Data Data Completed and Pending Labs on day of discharge: Labs from last 24 hours 02/13/23 02/12/23 05:59 15:12 WBC 5.79 7.65 RBC 3.17 L 3.54 L Hgb 9.9 L 11.1 L Hct 31.0 L 34.7 L MCV 98 98 MCH 31 31 MCHC 32 32 RDW Coeff of Carrillo 14.1 14.1 Plt Count 298 319 Neut % (Auto) 60.5 72.1 H Lymph % (Auto) 24.5 16.7 L [place] % (Auto) 9.8 9.2 Eos % (Auto) 4.0 1.6 Baso % (Auto) 0.3 0.3 Neut # (Auto) 3.50 5.50 Lymph # (Auto) 1.42 1.30 [place] # (Auto) 0.60 0.70 Eos # (Auto) 0.23 0.12 Baso # (Auto) 0.02 0.02 Abs Immat Gran (auto) 0.05 0.01 Imm/Tot Granulo (auto) 0.9 0.1 ESR 89 H Sodium 139 137 Potassium 3.6 4.6 Chloride 104 98 Carbon Dioxide 28 27 Anion Gap 7 12 BUN 26 33 H Creatinine 1.4 1.5 Estimated Creat Clear 41.38 38.62 Estimated GFR 50 46 Glucose 81 355 H* Hemoglobin A1c 7.93 H Lactate 1.9 Calcium 8.3 L 9.4 Total Bilirubin 0.4 AST 40 H ALT 26 Alkaline Phosphatase 94 C-Reactive Protein 2.9 H 2.5 H Total Protein 7.3 Albumin 3.8 Imaging Foot MRI: Radiologist's impression: INDICATION: Nonhealing wound. COMPARISON: Right foot radiograph 02/12/2023. TECHNIQUE: Noncontrast MRI scan of the right foot was performed. FINDINGS: This examination is suboptimal secondary to patient motion. There is diffuse swelling and high STIR signal reticulation throughout the subcutaneous tissues of the foot which may be seen with edema as well as cellulitis in the proper clinical setting. No focal fluid collection is identified to indicate abscess. No abnormal confluent low T1 signal changes are identified within the bones of the foot to indicate acute osteomyelitis. If there is a continued clinical concern for osteomyelitis then consider assessment with radionuclide labeled white blood cell scan. No acute fracture or osteonecrosis is identified. IMPRESSION: 1. Suboptimal examination secondary to motion artifact. 2. Diffuse swelling and high STIR signal throughout the subcutaneous tissues of the foot consistent with cellulitis in the proper clinical setting. 3. No definite evidence of osteomyelitis. If there is continued clinical concern for osteomyelitis then consider evaluation with radionuclide labeled white blood cell scan. Discharge Plan Discharge Disposition: Home w/ Parent or Adult Date of Admission: 02/12/23 20:27 Attending Provider on Discharge: Fausto Ball Consulting Providers: Isatu Hanley Primary Care Provider: Melquiades Man Anticipated Discharge Date/Time: 02/13/23 13:38 Discharge Medications: New doxycycline hyclate 100 mg capsule 100 mg PO BID Qty: 20 0RF Continued clopidogrel 75 mg tablet 75 mg PO DAILY pantoprazole 40 mg tablet,delayed release (DR/EC) 40 mg PO DAILY Eliquis 5 mg tablet 5 mg PO BID furosemide 40 mg tablet 40 mg PO DAILY ciprofloxacin HCl 500 mg tablet 500 mg PO BID spironolactone 25 mg tablet 25 mg PO DAILY metoprolol succinate 25 mg tablet extended release 24 hr 25 mg PO DAILY glipizide 5 mg tablet 2.5 mg PO DAILY entnestro 24 - 26 mg PO BID Entresto 24-26 mg tablet 1 tab PO BID nitroglycerin 0.4 mg tablet, sublingual sublingual atorvastatin 40 mg tablet 40 mg PO DAILY metoprolol succinate 50 mg tablet extended release 24 hr 50 mg PO DAILY glipizide 10 mg tablet 10 mg PO BID insulin aspart U-100 [Novolog FlexPen U-100 Insulin] 100 unit/mL (3 mL) insulin pen 8 - 10 unit subcut 3XD insulin glargine [Basaglar KwikPen U-100 Insulin] 100 unit/mL (3 mL) insulin pen 12 unit subcut QPM Discharge Orders: Discharge Order (Routine); Ordered 02/13/23 Ordered By: Fausto Ball Patient Education: Doxycycline (By mouth), Foot Care for People with Diabetes (DC), Diabetic Foot Ulcers (DC) Additional Instructions: Contact Dr. Rivera at [facility] for follow-up. Also arrange follow-up with your medtronics technician. Check your feet every day. Activity Level: Activity as Tolerated Discharge Diet: Diabetic and Heart Healthy (2 gm sodium, low fat) Follow Up Appointments: Melquiades Man MD [Primary Care Provider] - Forms: [employer] Info Instructions Discharge Comments: Please send a copy of the discharge summary to Dr. Rivera at [facility] and Dr. Manuel at [facility]
== END 2023-02-13 14:41 | disposition home or self-care (01) | DRG 637 ==
LOC: ED 16:13 → MEDSURG 18:07
PROVIDERS: Admitting Provider Physician Assistant; Emergency Provider Family Medicine; PCP Family Medicine; Visit Provider Family Medicine
DX: E11.621 Type 2 diabetes mellitus with foot ulcer (principal); I50.21 Acute systolic (congestive) heart failure; E11.52 Type 2 diabetes mellitus with diabetic peripheral angiopathy with gangrene; L97.412 Non-pressure chronic ulcer of right heel and midfoot with fat layer exposed; L97.422 Non-pressure chronic ulcer of left heel and midfoot with fat layer exposed; I96 Gangrene, not elsewhere classified; L03.115 Cellulitis of right lower limb; I13.0 Hypertensive heart and chronic kidney disease with heart failure and stage 1 through stage 4 chronic kidney disease, or unspecified chronic kidney disease; E11.42 Type 2 diabetes mellitus with diabetic polyneuropathy; L97.512 Non-pressure chronic ulcer of other part of right foot with fat layer exposed; E11.628 Type 2 diabetes mellitus with other skin complications; N18.9 Chronic kidney disease, unspecified; E11.22 Type 2 diabetes mellitus with diabetic chronic kidney disease; I48.91 Unspecified atrial fibrillation; Z79.4 Long term (current) use of insulin; Z79.01 Long term (current) use of anticoagulants; I25.5 Ischemic cardiomyopathy; I25.10 Atherosclerotic heart disease of native coronary artery without angina pectoris; Z95.1 Presence of aortocoronary bypass graft; I25.2 Old myocardial infarction; E78.5 Hyperlipidemia, unspecified
CPT/HCPCS: 36415; 73630; 73718; 80048; 80053; 82962; 83036; 83605; 85025; 85651; 86140; 94761; 97116; 97161; 99284; A9270; J2543; J3370; J7120

== ENCOUNTER 2023-02-15 12:49 | Outpatient (CLI) | payer MEDICARE, BC, SELFPAY | END 2023-02-15 12:50 | disposition home or self-care (01) | LOC: WOUND 12:50 | PROVIDERS: PCP Family Medicine; Visit Provider Nurse Practitioner Family | DX: E11.621 Type 2 diabetes mellitus with foot ulcer (principal); L97.428 Non-pressure chronic ulcer of left heel and midfoot with other specified severity; I70.234 Atherosclerosis of native arteries of right leg with ulceration of heel and midfoot; L97.418 Non-pressure chronic ulcer of right heel and midfoot with other specified severity; Z79.4 Long term (current) use of insulin; Z79.84 Long term (current) use of oral hypoglycemic drugs; I70.235 Atherosclerosis of native arteries of right leg with ulceration of other part of foot; L97.518 Non-pressure chronic ulcer of other part of right foot with other specified severity; L97.318 Non-pressure chronic ulcer of right ankle with other specified severity | CPT/HCPCS: 97602; 99213 ==

== ENCOUNTER 2023-02-22 15:26 | Outpatient (CLI) | payer MEDICARE, BC, SELFPAY | END 2023-02-22 15:27 | disposition home or self-care (01) | LOC: WOUND 15:27 | PROVIDERS: PCP Family Medicine; Visit Provider Nurse Practitioner Family | DX: E11.621 Type 2 diabetes mellitus with foot ulcer (principal); L97.518 Non-pressure chronic ulcer of other part of right foot with other specified severity; Z79.4 Long term (current) use of insulin; Z79.84 Long term (current) use of oral hypoglycemic drugs; L97.428 Non-pressure chronic ulcer of left heel and midfoot with other specified severity | CPT/HCPCS: 97597 ==

== ENCOUNTER 2023-03-01 09:34 | Outpatient (CLI) | payer MEDICARE, BC, SELFPAY | END 2023-03-01 09:35 | disposition home or self-care (01) | LOC: WOUND 09:35 | PROVIDERS: PCP Family Medicine; Visit Provider Nurse Practitioner Family | DX: E11.621 Type 2 diabetes mellitus with foot ulcer (principal); L97.418 Non-pressure chronic ulcer of right heel and midfoot with other specified severity; L97.428 Non-pressure chronic ulcer of left heel and midfoot with other specified severity; L97.518 Non-pressure chronic ulcer of other part of right foot with other specified severity; Z79.4 Long term (current) use of insulin; Z79.84 Long term (current) use of oral hypoglycemic drugs | CPT/HCPCS: 99215 ==

== ENCOUNTER 2023-03-08 14:04 | Outpatient (CLI) | payer MEDICARE, BC, SELFPAY ==
--- NOTE | 2023-03-08 16:30 | CRLHL7_ITS ---
For Patients: As a result of the Century Cures Act, medical imaging exams and procedure reports are released immediately into your electronic medical record. You may view this report before your referring provider. If you have questions, please contact your health care provider. Indication: ASSESS FOR GANGRENE Technique: Right foot 2 views Comparison: MRI 02/13/2023 and x-ray 02/12/2023 Findings: Vascular calcifications. Linear foreign body in the distal tibia soft tissues measuring 5.3 millimeters. Degenerative changes. No fracture. No periostitis. Calcaneal spurs. Spurring of the tibial plafond. No subcutaneous emphysema. Impression: No evidence of osteomyelitis. 5 millimeter metallic foreign body in the distal calf soft tissues. Dictated by Rafi Rhodes MD @ 03/09/2023 6:30:12 AM (Electronically Signed)
[2023-03-08 16:51] LABS: Basophils Percent Auto 0.2 % (0.0-3.0); Eosinophils Percent Auto 0.7 % (0.0-7.0); Hematocrit 34.7 % (37.0-53.0); Hemoglobin* 10.8 gm/dL (13.5-17.5); Immature Granulocytes Pct Auto 0.2 %; Mean Corpuscular HGB Conc 31 gm/dL (32-36); Mean Corpuscular Hemoglobin 31 pg (26-34); Mean Corpuscular Volume 99 fL (80-100); Monocytes Percent Auto 7.1 % (0.0-11.0); Neutrophils Percent Auto 82.8 % (42.0-72.0); Platelet Count* 329 K/uL (140-440); RDW Coefficient of Variation % 14.1 % (11.5-15.5); Red Blood Count 3.52 m/uL (4.30-5.90); White Blood Count* 14.86 K/uL (4.50-11.00)
[2023-03-08 16:53] LABS: Slide Review Reflex No
[2023-03-08 17:04] LABS: Chloride* 102 mmol/L (96-114)
[2023-03-08 17:05] LABS: Potassium* 4.1 mmol/L (3.6-5.1); Sodium* 139 mmol/L (135-149)
[2023-03-08 17:07] LABS: Creatinine* 1.6 mg/dL (0.5-1.5); Estimated Glomerular Filt Rate 43 ml/min
[2023-03-08 17:08] LABS: Anion Gap 12 mEq/L (7-15); Blood Urea Nitrogen* 38 mg/dL (7-30); Carbon Dioxide* 25 mmol/L (20-32)
[2023-03-08 17:09] LABS: Calcium* 9.3 mg/dL (8.4-10.6); Glucose* 266 mg/dL (60-115)
[2023-03-08 17:43] LABS: Erythrocyte SedimentationRate* 98 mm/hr (2-15)
[2023-03-08 20:15] LABS: C Reactive Protein* 33.5 mg/dL (0.5-1.0)
== END 2023-03-08 14:05 | disposition home or self-care (01) ==
PROVIDERS: PCP Family Medicine; Visit Provider Nurse Practitioner Family
DX: E11.621 Type 2 diabetes mellitus with foot ulcer (principal); E11.52 Type 2 diabetes mellitus with diabetic peripheral angiopathy with gangrene; I96 Gangrene, not elsewhere classified; L97.514 Non-pressure chronic ulcer of other part of right foot with necrosis of bone; L97.418 Non-pressure chronic ulcer of right heel and midfoot with other specified severity; L97.428 Non-pressure chronic ulcer of left heel and midfoot with other specified severity; L97.518 Non-pressure chronic ulcer of other part of right foot with other specified severity; Z79.4 Long term (current) use of insulin; Z79.84 Long term (current) use of oral hypoglycemic drugs
CPT/HCPCS: 36415; 73620; 80048; 85025; 85651; 86140; 96372; 99215; J0696

== ENCOUNTER 2023-07-25 12:59 | Outpatient (CLI) | payer MEDICARE, BC, SELFPAY | END 2023-07-25 13:00 | disposition home or self-care (01) | LOC: WOUND 12:59 | PROVIDERS: PCP Family Medicine; Visit Provider Family Medicine | DX: E11.621 Type 2 diabetes mellitus with foot ulcer (principal); L89.623 Pressure ulcer of left heel, stage 3; I25.10 Atherosclerotic heart disease of native coronary artery without angina pectoris; Z79.4 Long term (current) use of insulin; Z79.84 Long term (current) use of oral hypoglycemic drugs | CPT/HCPCS: 11042; G0463 ==

== ENCOUNTER 2023-08-02 10:09 | Outpatient (CLI) | payer MEDICARE, BC, SELFPAY | END 2023-08-02 10:10 | disposition home or self-care (01) | LOC: WOUND 10:09 | PROVIDERS: PCP Family Medicine; Visit Provider Nurse Practitioner Family | DX: E11.621 Type 2 diabetes mellitus with foot ulcer (principal); L97.422 Non-pressure chronic ulcer of left heel and midfoot with fat layer exposed; Z79.4 Long term (current) use of insulin; Z79.84 Long term (current) use of oral hypoglycemic drugs | CPT/HCPCS: 11042 ==

== ENCOUNTER 2023-08-09 08:33 | Outpatient (CLI) | payer MEDICARE, BC, SELFPAY | END 2023-08-09 08:34 | disposition home or self-care (01) | LOC: WOUND 08:33 | PROVIDERS: PCP Family Medicine; Visit Provider Nurse Practitioner Family | DX: E11.621 Type 2 diabetes mellitus with foot ulcer (principal); L97.422 Non-pressure chronic ulcer of left heel and midfoot with fat layer exposed; Z79.4 Long term (current) use of insulin; Z79.84 Long term (current) use of oral hypoglycemic drugs | CPT/HCPCS: 11042 ==

== ENCOUNTER 2023-08-15 09:01 | Outpatient (CLI) | payer MEDICARE, BC, SELFPAY | END 2023-08-15 09:02 | disposition home or self-care (01) | LOC: WOUND 09:01 | PROVIDERS: PCP Family Medicine; Visit Provider Surgery | DX: E11.621 Type 2 diabetes mellitus with foot ulcer (principal); L97.422 Non-pressure chronic ulcer of left heel and midfoot with fat layer exposed; Z79.4 Long term (current) use of insulin; Z79.84 Long term (current) use of oral hypoglycemic drugs | CPT/HCPCS: 97597 ==

== ENCOUNTER 2023-08-22 08:58 | Outpatient (CLI) | payer MEDICARE, BC, SELFPAY ==
--- OUTSIDE RECORDS SUMMARY | 2023-08-22 09:01 | XMS_ITS | Encounter Summary ---
Author Name [employer] Organization [facility] [employer] Address [address] [place] [address] Support Name Relationship Address Phone SHELLIE CASAS Next of Kin [address] [place] [phone] SHELLIE CASAS Emergency Contact [address] [phone] Insurance Providers: All historical and current Section Date Range: From patient's date of to the date document was created. This section includes the names of all active insurance providers for the patient. Insurance Provider Type of Coverage Plan Name Start of Policy Coverage End of Policy Coverage Group Number Member ID Insurance Provider's Telephone Number Policy Cherry's Name Patient's Relationship to Policy Cherry [facility] (WNR) MEDICARE ADVANTAGE [facility] (WNR) May 14, 2020 [id number] [phone] PITER CASAS ERD PATIENT Selected Encounter This section includes the information on record at [place] for the Encounter. Date/Time Encounter Type Encounter Description Reason Pro vider Source Feb 20, 2023 11:11 AM Outpatient Encounter COMMUNITY CARE CONSULT [facility] Encounter Template Text not used by [place] Plan of Treatment: Future Appointments (+ 6 months) and Future Tests (+/- 45 days) The Plan of Treatment section includes future care activities for the patient from all [place] treatmentfacilities. This section includes future appointments and future orders which are active, pending or scheduled. Future Appointments This section includes appointments that were scheduled to occur 6 months from the date of the Encounter, up to a maximum of 20 appointments. The data comes from all [place] treatment facilities. Appointment Date/Time Appointment Type Appointme nt Facility Name Feb 23, 2023 11:00 AM AMBULATORY - MEDICINE [facility] Mar 09, 2023 08:41 PM AMBULATORY - NONE [place] [facility] Apr 12, 2023 11:56 PM AMBULATORY - NONE [place] [facility] Apr 16, 2023 09:26 PM AM[place]ULATORY - NONE [place] [facility] May 01, 2023 06:28 PM AMBULATORY - NONE [place] [facility] Aug 10, 2023 10:45 AM AMBULATORY - SURGERY [facility] Lab Results: +/- 30 days of the encounter This section includes the Chemistry and Hematology Lab Results on record with [place] for the patient. Radiology Reports and Pathology Reports are provided separately, in subsequent sections. Lab Results This section contains the Chemistry/Hematology Results that were resulted 30 days before or 30 daysafter the date of the Encounter. Date/Time Source Result Type Result - Unit Interpretation Reference Range Comment Jan 23, 2023 02:14 PM [place] [facility]) BASIC METABOLIC PANEL+MG Specimen Type: PLASMA No comment entered. Ordering Provider: JIMENEZ CHESTER Report Released Date/Time: Jan 23, 2023 02:00 PM Reporting Lab: [facility] [id number] Performing Lab: [facility] [id number] CREATININE 1.2 0.7-1.2 UREA NITROGEN 35 H 8-26 GLUCOSE 239 H 70-100 SODIUM 140 136-145 POTASSIUM 5.1 3.5-5.1 CHLORIDE 109 H 98-107 CO2 21 L 22-29 CALCIUM 9.4 8.4-10.2 MAGNESIUM 1.7 1.6-2.6 ANION GAP 10 5-15 .CREAT EGFR(CKD-EPI) 61 >60 Jan 23, 2023 02:14 PM [facility] ([facility]) BNP Specimen Type: PLASMA No comment entered. Ordering Provider: JIMENEZ CHESTER Report Released Date/Time: Jan 23, 2023 02:00 PM Reporting Lab: [facility] [id number] Performing Lab: [facility] [id number] BNP 1549 H <99 Encounter Notes: All associated encounter notes This section contains the clinical notes associated to the Encounter. Date/Time Encounter Note(s) Provider Source Feb 20, 2023 02:49 PM ADDENDUM: LOCAL TITLE: Addendum STANDARD TITLE: ADDENDUM DATE OF NOTE: FEB 20, 2023@14:49:05 ENTRY DATE: FEB 20, 2023@14:49:06 AUTHOR: DANNY MORTON EXP COSIGNER: URGENCY: STATUS: COMPLETED [place] [facility] [place] co-managed [place]. Forwarding to pact team to see if qualifies and to contact him to talk with him about it. /riccardo/ DANNY MORTON LPN [employer] Sales Consultant Signed: 02/20/2023 14:50 Receipt Acknowledged By: 02/21/2023 08:30 /es/ JACKY GARVEY PHARMD, [facility] CLINICAL ACID CONCENTRATOR 02/22/2023 13:45 /es/ Aamir Hazel RN [facility] --- Original Document --- 02/20/23 PHARMACY NON [place] CARE MEDICATIONS: [facility] RECEIVED electronic prescription(s) (eRX(s))from [facility]- [facility] Provider: KATHY OFRTE Date eRX received: Feb The outside (NON-VA) provider is not authorized to write for prescription(s) through [place] pharmacy at this time. Prescription request REDIRECTED via FAX to [facility] department eRx Reference #: [id number] eRx Prescription Information: eRx Drug: DEXCOM G7 MEDIA TRAFFIC MANAGER eRx Qty: 1 eRx Refills: 1 eRx Days Supply: eRx Written Date: FEB 15, 2023 eRx Issue Date: Prohibit Renewals: No eRx Sig: misc miscellaneous eRx Reference #: [id number] eRx Drug: DEXCOM G7 SENSOR eRx Qty: 9 eRx Refills: 3 eRx Days Supply: eRx Written Date: FEB 15, 2023 eRx Issue Date: Prohibit Renewals: No eRx Sig: device miscellaneous /riccardo/ YELITZA CALVIN PharmD CLINICAL PHARMACIST Signed: 02/20/2023 11:13 02/22/2023 ADDENDUM STATUS: COMPLETED See Feb 22 Pharmacotherapy for more information. /nallely Hazel RN [facility] Signed: 02/22/2023 13:45 DANNY MORTON [facility] Feb 20, 2023 11:11 AM PHARMACY NOTE: LOCAL TITLE: PHARMACY NON [facility] CARE MEDICATIONS STANDARD TITLE: PHARMACY NOTE DATE OF NOTE: FEB 20, 2023@11:11 ENTRY DATE: FEB 20, 2023@11:11:45 AUTHOR: YELITZA CALVIN COSIGNER: URGENCY: STATUS: COMPLETED PHARMACY NON [facility] CARE MEDICATIONS Has ADDENDA [facility] RECEIVED electronic prescription(s) (eRX(s))from NON- [facility] Provider: KATHY FORTE Date eRX received: Feb The outside (NON-VA) provider is not authorized to write for prescription(s) through [place] pharmacy at this time. Prescription request REDIRECTED via FAX to [facility] department eRx Reference #: [id number] eRx Prescription Information: eRx Drug: DEXCOM G7 MEDIA TRAFFIC MANAGER eRx Qty: 1 eRx Refills: 1 eRx Days Supply: eRx Written Date: FEB 15, 2023 eRx Issue Date: Prohibit Renewals: No eRx Sig: misc miscellaneous eRx Reference #: [id number] eRx Drug: DEXCOM G7 SENSOR eRx Qty: 9 eRx Refills: 3 eRx Days Supply: eRx Written Date: FEB 15, 2023 eRx Issue Date: Prohibit Renewals: No eRx Sig: device miscellaneous /nallely CALVIN PharmD CLINICAL PHARMACIST Signed: 02/20/2023 11:13 02/20/2023 ADDENDUM STATUS: COMPLETED [place] [facility] [place] [facility] are not a co-managed item. Forwarding to pact team to see if qualifies and to contact him to talk with him about it. /nallely MORTON LPN [employer] Sales Consultant Signed: 02/20/2023 14:50 Receipt Acknowledged By: 02/21/2023 08:30 /nallely GARVEY PHARMD, [facility] CLINICAL ACID CONCENTRATOR 02/22/2023 13:45 /nallely Hazel RN [facility] 02/22/2023 ADDENDUM STATUS: COMPLETED See Feb 22 Pharmacotherapy for more information. /riccardo/ Aamir Hazel RN [facility] Signed: 02/22/2023 13:45 YELITZA CALVIN [facility]
--- OUTSIDE RECORDS SUMMARY | 2023-08-22 09:01 | XMS_ITS | Encounter Summary ---
Author Name [facility] Organization [facility] Address [address] [place] [address] Support Name Relationship Address Phone SONALI CASAS Next of Kin [address] [address] SONALI CASAS Emergency Contact [id number] [address] Insurance Providers: All historical and current [...] Cherry's Name Patient's Relationship to Policy Cherry [facility] (WNR) MEDICARE ADVANTAGE [facility] (WNR) May 14, 2020 [id number] [phone] PITER CASAS ERD PATIENT Selected Encounter This section includes the information on record at [place] for the Encounter. Date/Time Encounter Type Encounter Description Reason Provider Source Jan 23, 2023 01:00 PM OFFICE O/P EST HI 40-54 MIN PRIMARY CARE/MEDICINE ICD-10-CM I50.9 Heart failure, unspecified RABIA MOLINA [facility] Encounter Template Text not used by [facility] Assessments - Encounter Diagnoses This section includes the primary and secondary diagnoses documented for the Encounter. Date/Time Primary/Secondary Diagnosis Diagnosis Name Provider Source Jan 23, 2023 08:06 PM PRIMARY Heart failure, unspecified RABIA MOLINA ([facility]) Jan 23, 2023 08:06 PM SECONDARY Athscl heart disease of [place] coronary artery w/o ang pctrs RABIA MOLINA ([facility]) Jan 23, 2023 08:06 PM SECONDARY Contact with and exposure to other hazardous substances RABIA MOLINA ([facility]) Jan 23, 2023 08:06 PM SECONDARY Essential (primary) hypertension RABIA MOLINA ([facility]) Jan 23, 2023 08:06 PM SECONDARY Type 2 diabetes mellitus with diabetic polyneuropathy RABIA MOLINA ([facility]) Jan 23, 2023 08:06 PM SECONDARY Type 2 diabetes mellitus without complications RABIA MOLINA ([facility]) Plan of Treatment: Future Appointments (+ 6 months) and Future Tests (+/- 45 days) The Plan of Treatment section includes future care activities for the patient from all [place] [facility]. This section includes future appointments and future orders which are active, pending or scheduled. Future Appointments This section includes appointments that were scheduled to occur 6 months from the date of the Encounter, up to a maximum of 20 appointments. The data comes from all [facility] facilities. Appointment Date/Time Appointment Type Appointme nt Facility Name Feb 15, 2023 12:45 PM [facility] NONE [facility] Feb 20, 2023 07:01 AM AMBULATORY - NONE [facility] Feb 23, 2023 11:00 AM AMBULATORY - MEDICINE [facility] ([facility]) Mar 09, 2023 08:41 PM AM[facility] - NONE [facility] Apr 12, 2023 11:56 PM [facility] - NONE [facility] Apr 16, 2023 09:26 PM [facility] May 01, 2023 06:28 PM AMBULATORY - NONE [facility] Lab Results: +/- 30 days of the encounter This section includes the Chemistry and Hematology Lab Results on record with [place] for the patient. Radiology Reports and Pathology Reports are provided separately, in subsequent sections. Lab Results This section contains the Chemistry/Hematology Results that were resulted 30 days before or 30 daysafter the date of the Encounter. Date/Time Source Result Type Result - Unit Interpretation Reference Range Comment Jan 23, 2023 02:14 PM [facility] ([facility]) BASIC METABOLIC PANEL+MG Specimen Type: PLASMA No comment entered. Ordering Provider: RABIA MOLINA Report Released Date/Time: Jan 23, 2023 02:00 PM Reporting Lab: [facility] [id number] Performing Lab: [facility] [id number] CREATININE 1.2 0.7-1.2 UREA NITROGEN 35 H 8-26 GLUCOSE 239 H 70-100 SODIUM 140 136-145 POTASSIUM 5.1 3.5-5.1 CHLORIDE 109 H 98-107 CO2 21 L 22-29 CALCIUM 9.4 8.4-10.2 MAGNESIUM 1.7 1.6-2.6 ANION GAP 10 5-15 .CREAT EGFR(CKD-EPI) 61 >60 Jan 23, 2023 02:14 PM [facility] ([facility]) BNP Specimen Type: PLASMA No comment entered. Ordering Provider: RABIA MOLINA Report Released Date/Time: Jan 23, 2023 02:00 PM Reporting Lab: [facility] [id number] Performing Lab: [facility] [id number] BNP 1549 H <99 Vital Signs: All taken on the encounter date This section contains inpatient and outpatient Vital Signs collected on the date of the Encounter. Date/Time Temperature Pulse Blood Pressure Respiratory Rate SP02 Pain Height Weight Body Mass Index Source Jan 23, 2023 12:55 PM 97.5 F 94 /min 112/72 mm[Hg] 16 /min 95 % 0 69.5 in 190.2 lb 28 [facility] ([facility]) Social History: Smoking Status (Most current) and Tobacco Use (All prior to encounter date) This section includes the most current, and the historical, smoking and tobacco- related health factors from the [place] facility where the Encounter took place. Current Smoking Status This section includes the most current smoking, or tobacco-related health factor, from the [place] facility where the Encounter took place. Date/Time Current Smoking Status Comment Federico armenta Nov 23, 2022 11:00 AM [place]-TOBACCO FORMER USER [facility] ([facility]) Tobacco Use History This section includes a history of the smoking, or tobacco-related health factors, that were collected on or before the date of the Encounter. The data comes from the [place] facility where the Encounter took place. Date/Time Smoking Status/Tobacco Use Comment F bo Nov 23, 2022 11:00 AM VA-TOBACCO QUIT 15 YRS OR MORE [facility] ([facility]) Nov 29, 2021 10:00 AM VA-TOBACCO FORMER USER [facility] ([facility]) Nov 29, 2021 10:00 AM VA-TOBACCO QUIT 15 YRS OR MORE [facility] ([facility]) Oct 21, 2020 10:30 AM VA-TOBACCO FORMER USER [facility] ([facility]) Oct 21, 2020 10:30 AM VA-TOBACCO QUIT 15 YRS OR MORE [facility] ([facility]) Encounter Notes: All associated encounter notes This section contains the clinical notes associated to the Encounter. Date/Time Encounter Note(s) Provider Source Jan 26, 2023 02:24 PM ADDENDUM: LOCAL TITLE: Addendum STANDARD TITLE: ADDENDUM DATE OF NOTE: JAN 26, 2023@14:24:46 ENTRY DATE: JAN 26, 2023@14:24:47 AUTHOR: LISA ALCANTAR EXP COSIGNER: URGENCY: STATUS: COMPLETED Phoned . was not available. Spoke with Sonali. SHANNAN verified. - was prescribed: -Furosemide 40mg daily -Spironalactone 25 mg daily -Picked up prescriptions on sunday -Taking daily -Swelling in legs have gone down -Lost 3.5 lbs since 01/24/23 -SOB has gotten better -Has been sleeping in bed now -used to sleep in his chair -Will be getting labs done on 01/29/23 at [place] for the [facility] Plan: -PCP alerted as FYI -Medications added to NON VA medlist Phone call: 7 min /riccardo/ Lisa Alcantar RN [facility] Signed: 01/26/2023 14:32 Receipt Acknowledged By: 01/26/2023 15:56 /riccardo/ RABIA MOLINA MD PHYSICIAN --- Original Document --- 01/25/23 PATIENT CONTACT NOTE: Please contact /spouse regarding to the lab testing: - Electrolytes including sodium and potassium SODIUM 140 (01/23/23) (normal is 137-144) POTASSIUM 5.1 (01/23/23) (normal is 3.5-5.0) CHLORIDE 109 H (01/23/23) (normal is 98-107) CO2 21 L (01/23/23) (normal is 22-29) UREA NITROGEN 35 H (01/23/23) (normal Male is 8-26) CREATININE 1.2 (01/23/23) (normal Male is 0.7-1.2) GLUCOSE 239 H (01/23/23) (normal is 70-105) CALCIUM 9.4 (01/23/23) (normal is 8.4-10.2) MAGNESIUM 1.7 (01/23/23) (normal is 1.6-2.6) CREATININE EGFR (CKD-EPI) 01/23/23 @ 1414 61 (normal is >/=60) BNP: 1549 H pg/mL Ref: >=75 yrs:<254 pg/mL Comments: Thank you for coming into the office to be seen on 01/23/2023. Your chloride level is slightly elevated but not concerning. Your Urea nitrogen (kidney function test) is slightly elevated telling us that you are a little dehydrated but your BNP (congestive heart failure test) is elevated telling us that your body is holding on to more fluids than it should. Your glucose was elevated consistent with recent meal and your history of diabetes. I am hoping that you had a good appointment with the cardiology team on 01/24/2023 and have come up with a plan for the congestive heart failure. Please let my nurse know if the cardiology team didn't address the increase in the fluid retention in your feet. Check to see if there has been any changes with the 's medication. He should have been started on a water pill (furosemide/torsemide or possibly empagliflozin) to manage the congestive heart failure symptoms. Thanks /es/ RABIA MOLINA MD PHYSICIAN Signed: 01/25/2023 14:19 Receipt Acknowledged By: 01/26/2023 15:25 /riccardo/ Lisa Alcantar RN [facility] LISA ALCANTAR ([facility]) Jan 25, 2023 02:12 PM REPORT OF CONTACT: LOCAL TITLE: PATIENT CONTACT NOTE STANDARD TITLE: REPORT OF CONTACT DATE OF NOTE: JAN 25, 2023@14:12 ENTRY DATE: JAN 25, 2023@14:12:07 AUTHOR: RABIA MOLINA EXP COSIGNER: URGENCY: STATUS: COMPLETED PATIENT CONTACT NOTE Has ADDENDA Please contact /spouse regarding to the lab testing: - Electrolytes including sodium and potassium SODIUM 140 (01/23/23) (normal is 137-144) POTASSIUM 5.1 (01/23/23) (normal is 3.5-5.0) CHLORIDE 109 H (01/23/23) (normal is 98-107) CO2 21 L (01/23/23) (normal is 22-29) UREA NITROGEN 35 H (01/23/23) (normal Male is 8-26) CREATININE 1.2 (01/23/23) (normal Male is 0.7-1.2) GLUCOSE 239 H (01/23/23) (normal is 70-105) CALCIUM 9.4 (01/23/23) (normal is 8.4-10.2) MAGNESIUM 1.7 (01/23/23) (normal is 1.6-2.6) CREATININE EGFR (CKD-EPI) 01/23/23 @ 1414 61 (normal is >/=60) BNP: 1549 H pg/mL Ref: >=75 yrs:<254 pg/mL Comments: Thank you for coming into the office to be seen on 01/23/2023. Your chloride level is slightly elevated but not concerning. Your Urea nitrogen (kidney function test) is slightly elevated telling us that you are a little dehydrated but your BNP (congestive heart failure test) is elevated telling us that your body is holding on to more fluids than it should. Your glucose was elevated consistent with recent meal and your history of diabetes. I am hoping that you had a good appointment with the cardiology team on 01/24/2023 and have come up with a plan for the congestive heart failure. Please let my nurse know if the cardiology team didn't address the increase in the fluid retention in your feet. Check to see if there has been any changes with the 's medication. He should have been started on a water pill (furosemide/torsemide or possibly empagliflozin) to manage the congestive heart failure symptoms. Thanks /riccardo/ RABIA MOLINA MD PHYSICIAN Signed: 01/25/2023 14:19 Receipt Acknowledged By: 01/26/2023 15:25 /riccardo/ Lisa Alcantar RN [facility] 01/26/2023 ADDENDUM STATUS: COMPLETED Phoned . [place] was not available. Spoke with Sonali. SHANNAN verified. - was prescribed: -Furosemide 40mg daily -Spironalactone 25 mg daily -Picked up prescriptions on sunday -Taking daily -Swelling in legs have gone down -Lost 3.5 lbs since 01/24/23 -SOB has gotten better -Has been sleeping in bed now -used to sleep in his chair -Will be getting labs done on 01/29/23 at [place] for the [facility] Heart [facility] Plan: -PCP alerted as FYI -Medications added to NON [facility] medlist Phone call: 7 min /nallely Alcantar RN [facility] Signed: 01/26/2023 14:32 Receipt Acknowledged By: * AWAITING SIGNATURE * RABIA MOLINA BRENDA [place] ([facility]) Jan 25, 2023 01:08 PM LETTERS: LOCAL TITLE: FOLLOW UP RESULTS LETTER STANDARD TITLE: LETTERS DATE OF NOTE: JAN 25, 2023@13:08 ENTRY DATE: JAN 25, 2023@13:08:05 AUTHOR: RABIA MOLINA EXP COSIGNER: URGENCY: STATUS: COMPLETED [facility] [address] [place] [address] Jan YUKIBibi CASAS [address] [place] [address] Dear [place]: I am writing to inform you of the results of the tests you had done at the [facility]. The tests below were performed and are satisfactory unless otherwise noted. - Electrolytes including sodium and potassium SODIUM 140 (01/23/23) (normal is 137-144) POTASSIUM 5.1 (01/23/23) (normal is 3.5-5.0) CHLORIDE 109 H (01/23/23) (normal is 98-107) CO2 21 L (01/23/23) (normal is 22-29) UREA NITROGEN 35 H (01/23/23) (normal Male is 8-26) CREATININE 1.2 (01/23/23) (normal Male is 0.7-1.2) GLUCOSE 239 H (01/23/23) (normal is 70-105) CALCIUM 9.4 (01/23/23) (normal is 8.4-10.2) MAGNESIUM 1.7 (01/23/23) (normal is 1.6-2.6) CREATININE EGFR (CKD-EPI) 01/23/23 @ 1414 61 (normal is >/=60) BNP: 1549 H pg/mL Ref: >=75 yrs:<254 pg/mL Comments: Thank you for coming into the office to be seen on 01/23/2023. Your chloride level is slightly elevated but not concerning. Your Urea nitrogen (kidney function test) is slightly elevated telling us that you are a little dehydrated but your BNP (congestive heart failure test) is elevated telling us that your body is holding on to more fluids than it should. Your glucose was elevated consistent with recent meal and your history of diabetes. I am hoping that you had a good appointment with the cardiology team on 01/24/2023 and have come up with a plan for the congestive heart failure. Please let my nurse know if the cardiology team didn't address the increase in the fluid retention in your feet. If you have any further questions or problems, please contact our nursing staff or me at the following number: [phone] ([place]) Sincerely, RABIA MOLINA MD PHYSICIAN RABIA MOLINA ([facility]) Jan 23, 2023 01:10 PM PRIMARY CARE NOTE: [facility] TITLE: [facility] PROGRESS NOTE-[facility] STANDARD TITLE: PRIMARY CARE NOTE DATE OF NOTE: JAN 23, 2023@13:10 ENTRY DATE: JAN 23, 2023@07:16:01 AUTHOR: RABIA MOLINA EXP COSIGNER: URGENCY: STATUS: COMPLETED Type of Visit: Face to Face Reason for Visit: Hospital follow-up HPI: 82 year-old MALE here for hospital follow-up. An was admitted to the hospital on 12/27/2022 for hyperkalemia and decompensated heart failure. An was admitted to [facility] due to no beds at the [place]. Admission date was 12/27/2022. An did have an acute kidney injury with the hyperkalemia. His lisinopril was held. He had a recent non-STEMI, left atrial thrombus, atrial fibrillation, coronary artery disease, hypertension, type 2 diabetes. On 01/01/2023 an was back to baseline creatinine prior ejection fraction was 30% with repeat echo showing ejection fraction of 10 to 20%. Veterans diuresed with Lasix drip. [place] did end up with COVID infection and completed 3 days of remdesivir. An was discharged from the hospital on 01/08/2023. Final diagnosis was acute decompensated heart failure with reduced ejection fraction he was discharged to the [facility] TCU. Final diagnosis included acute decompensated heart failure with reduced ejection fraction recommended low-dose ARB with further GDMT as an outpatient. Recommended continuing Toprol with hold parameters. Hypotension was resolved. Abdominal pain resolved. Left ankle wound was seen by wound care. For type 2 diabetes with peripheral neuropathy and hyperglycemia. Held glipizide and metformin high-dose meal insulin coverage and Lantus final discharge summary is currently unavailable through [facility] Has gone down hill since he has been out of the care center. He has had increased swelling in his legs. He is not able to breath when laying down. Feels like he is more short of breath. He went to the hospital 2 times due to the shortness of breath. He felt there was no improvement with hospitalizations. Blood sugars are up and down at this time - ranging from 130-390's. Working on lantus 25 units daily and then insulin aspart 10 units plus sliding scale. Has no waterpill at this time. Co-managed: [facility] - seeing provider tomorrow. Home medications: reviewed and updated Chest pain/chest pressure: none currently - noticed after walking the [place] - feeling like his vision was hazy when he got to the end of the [place] Shortness of breath: labored berathing with walking - unable to sleep well at night due to feeling short of breath Palpitations: currently in atrial fibrillation - had a FREIDA done and had a clot in the atrium - needs to dissolve prior to trying to convert from a. fib Lower extremity swelling: increased over last few days Home blood pressures: from his watch. Weight: up 4.6 lb from last visit . Review of systems: otherwise negative Past Medical History: 1. Coronary artery disease 2. Congestive heart failure with reduce Ejection fraction (10-20%) 3. Hypertension 4. Hyperlipidemia 5. Type 2 diabetes 6. peripheral neuropathy 7. Long-term current use of insulin 8. Macular edema Past Surgical History: 1. CABG x 4 2001 Family History: 1. Sister x 2 with atrial fibrillation 2. Sister - abdominal aneurysm 3. Sister - colon cancer, diabetes 4. Sister x 2 - borderline diabetes 5. Brother - CKD 6. Mother - diabetes, CAD 7. Father - CAD Social History: 1. Marital status: 2. Tobacco: Former smoker: Quit 1968 3. EtOH: Rare 4. Illicit drugs: none 5. Employment: [employer] work 39 years 6. Service: [place] Allergies: NKDA Physical Exam: Temp: 97.5 F [36.4 C] (01/23/2023 12:55) Pulse:94 (01/23/2023 12:55) BP: 112/72 (01/23/2023 12:55) Resp: 16 (01/23/2023 12:55) O2 Sat: 95% (01/23/2023 12:55) Weight: 190.2 lb [86.27 kg] (01/23/2023 12:55) BMI: 27.7 Pain: 0 (01/23/2023 12:55) General: AAOx3, NAD, Healthy HEENT: AT/NC CV: Irregular rate and rhythm, no murmurs, no rubs, no gallops Lungs: clear to auscultation bilaterally, no crackles, no wheezing, decreased breath sounds bases Abd: soft, NT/ND, No hepatosplenomegaly, +BS, no rebound, no guarding Extrem: no clubbing, or cyanosis, 1+ pitting edema Skin: pale appearing. Labs: Imaging Assessment/Plan: 1. Coronary artery disease/Congestive heart failure/Hyperlipidemia/Hyperte nsion - Recent NSTEMI with significant CAD - CHF with Reduced EF - Follow-up planned at [facility] (private insurance) - LDL goal < 70, BP goal < 140/90 - Continue aspirin 81 mg daily - Continue clopidegril 75 mg daily - Continue losartan 25mg daily - Continue atorvastatin 40 mg daily - Continue hydrochlorothiazide 50 mg daily - Continue metoprolol succinate 50 mg daily - Continue nitroglycerin 0.4 mg sublingual as needed - Patient will follow-up through [facility] clinic with PCP 2. Type 2 diabetes with peripheral neuropathy - Continue to monitor glucose 3 times daily - Insulin glargine 25 units at bedtime - Insulin aspart 10 units 3 times daily with meals - helps manage the carb counting and insulin aspart - Continue sliding scale insulin - Will follow-up with non-VA PCP - Continue glipizide 5 mg twice daily - Discontinue Metformin 1000 mg twice daily due to acute kidney injury - Patient will follow-up through [facility] clinic with PCP - Vaccinations: IM - Immunizations Immunization Series Date Facility Reaction Info COVID-19 (MODERNA), MRNA, LNP-S,* 1 03/29/2022 [facility]* COVID-19 (PFIZER), MRNA, LNP-S, P* 3 03/09/2021 [facility]* 2 07/24/2020 [place]* 1 07/03/2020 [place]* INFLUENZA, HIGH-DOSE, QUADRIVALEN* 1 04/05/2022 [facility] PNEUMOCOCCAL CONJUGATE PCV 13 01/21/2015 [facility]* <C> PNEUMOCOCCAL POLYSACCHARIDE PPV23 02/09/2011 [facility] TDAP 01/21/2021 [facility] * <C> ZOSTER RECOMBINANT 2 01/21/2021 [facility] * 1 10/21/2020 [facility] * RTC in 11/2023 annual visit CPRS chart review/chart prep/[facility] review: 12 minutes Time with patient: 40 minutes Chart completion: 12 minutes Clinical Reminders: Medication Reconciliation: Education Evaluations *Was medication education provided for NEW medications or CHANGES to medications? (including medication name, dose, route, reason for use, and potential side effects). No new medications or medication changes during this encounter. TERATOGENIC MED & CONTRACEPTION REVIEW (Optional)... MEDICATION RECONCILIATION List Given: An updated medication list was provided to the patient/caregiver. Review Done: The medication list shown below was verified for accuracy and it includes all pending medications/active medications/all medications or discontinued within the last 90 days/all remote medications and non-VA medications. If a given category (i.e. remote meds) is not shown, that means that a patient doesn't have a medication(s) in that category. Allergies listed below were also reviewed/updated for accuracy. Allergies/ADR from [facility] may not display in CPRS. Use [facility] MRT5 - Allergies/ADRs FACILITY ALLERGY/ADR -------- No Remote Allergy/ADR Data available for this patient [facility] No Known Allergies Active and Recently Outpatient Medications (including Supplies): Start Date Active Non-VA Medications Refills Expiration 1) Non-VA APIXABAN 5MG TAB SiMG MOUTH ACTIVE EVERY 12 HOURS 2) Non-VA ATORVASTATIN CALCIUM 40MG TAB ACTIVE SiMG MOUTH DAILY 3) Non-VA CLOPIDOGREL BISULFATE 75MG TAB ACTIVE SiMG MOUTH DAILY 4) Non-VA CONTOUR NEXT (GLUCOSE) TEST STRIP ACTIVE Si STRIP THREE TIMES A DAY 5) Non-VA GLIPIZIDE 5MG TAB SiMG MOUTH ACTIVE TWICE A DAY 6) Non-VA INSULIN ASPART (HUMAN) INJ Sig: ACTIVE 10 UNITS UNDER THE SKIN BEFORE MEALS 7) Non-VA INSULIN GLARGINE 300UNITS/ML 3ML ACTIVE PEN INJ Si UNITS UNDER THE SKIN DAILY 8) Non-VA LOSARTAN 25MG TAB Si.5MG ACTIVE MOUTH DAILY 9) Non-VA METOPROLOL SUCCINATE 50MG SA TAB ACTIVE SiMG MOUTH DAILY 10) Non-VA NITROGLYCERIN 0.4MG SL TAB Sig: ACTIVE 0.4MG UNDER THE TONGUE NEEDED 11) Non-VA NON VA MED NOT LISTED ACTIVE MISCELLANEOUS Sig: ACCU-CHECK ALEJO PLUS METER THREE TIMES A DAY 12) Non-VA SHIRA FINE 32 DISPOSABLE NEEDLE ACTIVE Si NEEDLE UNDER THE SKIN FOUR TIMES A DAY 13) Non-VA PANTOPRAZOLE NA 40MG EC TAB Sig: ACTIVE 40MG MOUTH DAILY 14) Non-VA TRIAMCINOLONE ACETONIDE 0.1% OINT ACTIVE Sig: SMALL AMOUNT TOPICALLY THREE TIMES A DAY NEEDED Start Date Inactive Non-VA Medications Refills Expiration 1) Non-VA ISOSORBIDE MONONITRATE 30MG SA DISCONTINUED TAB SiMG MOUTH DAILY 2) Non-VA LISINOPRIL 10MG TAB SiMG DISCONTINUED MOUTH DAILY 16 Total Medications Toxic Exposure Screening Follow-Up: Exposure Concern(s): 01/23/2023 Agent [place] - Toxic Exposure Concern Other Environmental Concerns - Toxic Exposure Concern Jet fuel Follow-up Question(s): 01/23/2023 No Questions - Toxic Exposure Concern [place]/caregiver has health or medical concerns related to their concern of environmental exposure. Concern: coronary artery disease, congestive heart failure The following connections were provided to the [place]/caregiver: [employer] Benefits Administration (VBA) for Benefits/claims: Manager Immunology/Organization (VSO) [email or web address] /es/ RABIA MOLINA MD PHYSICIAN Signed: 01/23/2023 20:13 RABIA MOLINA ([facility]) Jan 23, 2023 12:58 PM PRIMARY CARE NOTE: LOCAL TITLE: [facility] PROGRESS NOTE-[facility] STANDARD TITLE: PRIMARY CARE NOTE DATE OF NOTE: JAN 23, 2023@12:58 ENTRY DATE: JAN 23, 2023@12:58:56 AUTHOR: ZARI ANTHONY EXP COSIGNER: URGENCY: STATUS: COMPLETED TYPE OF VISIT: Appointment Check In Type of appointment: In-person appointment REASON FOR VISIT: Med questions, home health set up, blood sugars jumping up and down, terrible breathing when lay down at night. ALLERGIES: Patient has answered NKA VITAL SIGNS: Blood Pressure: 112/72 (01/23/2023 12:55) Pulse: 94 (01/23/2023 12:55) Respiration: 16 (01/23/2023 12:55) Temperature: 97.5 F [36.4 C] (01/23/2023 12:55) Weight: 190.2 lb [86.27 kg] (01/23/2023 12:55) Height: 69.5 in [176.5 cm] (01/23/2023 12:55) BMI: 27.7 O2 Sat: 95% (01/23/2023 12:55) Pain: 0 (01/23/2023 12:55) PAIN SCREEN: Patient is not having significant pain that they wish to discuss with their provider today. MEDICATION Active Outpatient Medications (including Supplies): Non-VA APIXABAN 5MG TAB 5MG MOUTH EVERY 12 HOURS ACTIVE Non-VA ATORVASTATIN CALCIUM 80MG TAB 40MG MOUTH DAILY ACTIVE Non-VA CLOPIDOGREL BISULFATE 75MG TAB 75MG MOUTH DAILY ACTIVE Non-VA CONTOUR NEXT (GLUCOSE) TEST STRIP 1 STRIP THREE ACTIVE TIMES A DAY Non-VA GABAPENTIN 300MG CAP 300MG MOUTH THREE TIMES A DAY ACTIVE Non-VA GLIPIZIDE 10MG TAB 10MG MOUTH TWICE A DAY ACTIVE Non-VA INSULIN GLARGINE 300UNITS/ML 3ML PEN INJ 12 UNITS ACTIVE UNDER THE SKIN DAILY Non-VA INSULIN REGULAR (HUMAN) INJ ASPART 8 TO 10 UNITS ACTIVE PRIOR TO MEALS UNDER THE SKIN BEFORE MEALS Non-VA ISOSORBIDE MONONITRATE 30MG SA TAB 30MG MOUTH DAILY ACTIVE Non-VA LISINOPRIL 10MG TAB 10MG MOUTH DAILY ACTIVE Non-VA METFORMIN HCL 1000MG TAB 1000MG TWO TIMES A DAY ACTIVE Non-VA METOPROLOL SUCCINATE 50MG SA TAB 50MG MOUTH DAILY ACTIVE Non-VA NITROGLYCERIN 0.4MG SL TAB 0.4MG UNDER THE TONGUE ACTIVE NEEDED Non-VA NON VA MED NOT LISTED MISCELLANEOUS ACCU-CHECK ACTIVE ALEJO PLUS METER THREE TIMES A DAY Non-VA SHIRA FINE 32 DISPOSABLE NEEDLE 1 NEEDLE UNDER THE ACTIVE SKIN FOUR TIMES A DAY Non-VA PANTOPRAZOLE NA 40MG EC TAB 40MG MOUTH DAILY ACTIVE Non-VA TRIAMCINOLONE ACETONIDE 0.1% OINT SMALL AMOUNT ACTIVE TOPICALLY THREE TIMES A DAY NEEDED Toxic Exposure Screening: The /caregiver was asked if they believe the [place] experienced any toxic exposure(s), such as Airborne Hazards and Open Burn [place], [place] War related exposures, Agent [place], Radiation, contaminated water at [place] or other such exposures, while serving in the [employer]. /caregiver believes the was exposed to the following while serving in the [employer]: Agent [place]: [place]/caregiver was made aware of educational resources that includes information on the Registry Program, presumptive conditions and how to file a claim. Printed information was offered and provided if desired. Other exposures: Comment: Jet fuel /caregiver was made aware of educational resources and printed information was offered and provided if desired. No questions at this time [place]/caregiver was informed of local points of contact. Contact information for local resources: - Veterans Benefits for claims submission: Have the call or have them visit the following web address for online scheduling: [email or web address] - [facility] Healthcare Enrollment: -VETS (7974) - Find a [place] Manager Immunology (VSO): Have the call 5-718-[phone] or look up their VSO at: [email or web address] - [facility] Navigators: Dr. Hilton Brooke: [phone] Dr. Doug Chirinos: [phone] Toxic Exposure Screening Follow-Up reminder is needed. Name of person notified: Dr. Rabia Molina Homelessness/Food Insecurity Screen: In the past 2 months, have you been living in stable housing that you own, rent, or stay in as part of a household? Yes - Living in stable housing. Are you worried or concerned that in the next 2 months you may NOT have stable housing that you own, rent, or stay in as part of a household? No - Not worried about housing near future The reports the following: Within the past 12 months, you worried whether your food would run out before you got money to buy more. Never true Within the past 12 months, the food you bought just didn't last and you didn't have money to get more. Never true /es/ ZARI ANTHONY LPN Signed: 01/23/2023 13:03 MILANA ANTHONY ([facility])
--- OUTSIDE RECORDS SUMMARY | 2023-08-22 09:01 | XMS_ITS | Encounter Summary ---
Author Name Department of Vetera Affairs Organization Department of Vetera ns Affairs Address [address] [place] [address] Support Name Relationship Address Phone SHELLIE CASAS [...] Cherry's Name Patient's Relationship to Policy Cherry [facility] (WNR) MEDICARE ADVANTAGE [facility] (WNR) May 14, 2020 [id number] [phone] PITER CASAS ERD PATIENT Selected Encounter This section includes the information on record at MD for the Encounter. Date/Time Encounter Type Encounter Description Reason Pro vider Source Jul 13, 2023 02:36 PM Outpatient Encounter COMMUNITY CARE CONSULT IHE Encounter Template Text not used by MD Plan of Treatment: Future Appointments (+ 6 months) and Future Tests (+/- 45 days) The Plan of Treatment section includes future care activities for the patient from all MD treatmentfacilities. This section includes future appointments and future orders which are active, pending or scheduled. Future Appointments This section includes appointments that were scheduled to occur 6 months from the date of the Encounter, up to a maximum of 20 appointments. The data comes from all MD treatment facilities. Appointment Date/Time Appointment Type Appointme nt Facility Name Aug 10, 2023 10:45 AM AMBULATORY - SURGERY [facility] Encounter Notes: All associated encounter notes This section contains the clinical notes associated to the Encounter. Date/Time Encounter Note(s) Provider Source Jul 20, 2023 11:11 AM ADDENDUM: LOCAL TITLE: Addendum STANDARD TITLE: ADDENDUM DATE OF NOTE: JUL 20, 2023@11:11:47 ENTRY DATE: JUL 20, 2023@11:11:49 AUTHOR: ARACELI TORRE EXP COSIGNER: URGENCY: STATUS: COMPLETED SUBJECT: Update This message was forwarded to MD Audiology Nitin Barfield for review. Request was sent to [facility] Audiology 07/13/2023. Shellie the 's spouse called [facility] to see if a new consult had been placed for Audiology. Shellie stated the has a broken hearing aid and they have difficulty hearing. Please check on the status and call Shellie to let them know. Shellie can be reached at /riccardo/ Araceli Torre RN, BSN, [facility] muck operator Atm Manager Signed: 07/20/2023 11:12 Receipt Acknowledged By: 07/20/2023 11:53 /es/ Pauly PIERCE DOCTOR OF AUDIOLOGY --- Original Document --- 07/13/23 COMMUNITY CARE-REQUEST FOR SERVICE NOTE: PACT: PLEASE ADDRESS Received referral for additional services from patient's Audiology provider. Most recent referral on 05/18/2023. Authorization#: [id number] valid from 2022-09-20 through 2023-05-18 [facility] [address] [place] [address] PH: [phone] FX: [phone] Please see RFS and notes uploaded to Audiology consult # [id number] dated 07/31/2022 for details. RFS and records uploaded to [facility] note dated 07/12/2023. Place new consult if clinically indicated, thank you. Community Care RN to contact with questions regarding this care: Araceli Torre RN /riccardo/ Araceli Torre RN, BSN, [facility] muck operator Atm Manager Signed: 07/13/2023 14:39 Receipt Acknowledged By: * AWAITING SIGNATURE * JACKY BARFIELD 07/20/2023 ADDENDUM STATUS: COMPLETED Shellie the 's spouse called [facility] to see if a new consult had been placed for Audiology. Shellie stated the has a broken hearing aid and they have difficulty hearing. Please check on the status and call Shellie to let them know. Shellie can be reached at . /riccardo/ HUNG BOB MSA ADVANCED RIGGING LOFT MECHANIC Signed: 07/20/2023 11:03 Receipt Acknowledged By: 07/20/2023 11:10 /riccardo/ Araceli Torre RN, BSN, [facility] muck operator Atm Manager ARACELI TORRE [facility] Jul 20, 2023 10:58 AM ADDENDUM: LOCAL TITLE: Addendum STANDARD TITLE: ADDENDUM DATE OF NOTE: JUL 20, 2023@10:58:47 ENTRY DATE: JUL 20, 2023@10:58:48 AUTHOR: HUNG BOB COSIGNER: URGENCY: STATUS: COMPLETED Shellie the 's spouse called [facility] to see if a new consult had been placed for Audiology. Shellie stated the has a broken hearing aid and they have difficulty hearing. Please check on the status and call Shellie to let them know. Shellie can be reached at . /riccardo/ HUNG BOB MSA ADVANCED RIGGING LOFT MECHANIC Signed: 07/20/2023 11:03 Receipt Acknowledged By: 07/20/2023 11:10 /riccardo/ Araceli Torre RN, BSN, [facility] muck operator Atm Manager --- Original Document --- 07/13/23 COMMUNITY CARE-REQUEST FOR SERVICE NOTE: PACT: PLEASE ADDRESS Received referral for additional services from patient's Audiology provider. Most recent referral on 05/18/2023. Authorization#: [id number] valid from 2022-09-20 through 2023-05-18 [facility] [address] [place] [address] PH: [phone] FX: [phone] Please see RFS and notes uploaded to Audiology consult # [id number] dated 07/31/2022 for details. RFS and records uploaded to [facility] note dated 07/12/2023. Place new consult if clinically indicated, thank you. Community Care RN to contact with questions regarding this care: Araceli Torre RN /riccardo/ Araceli Torre RN, BSN, [facility] muck operator Atm Manager Signed: 07/13/2023 14:39 Receipt Acknowledged By: * AWAITING SIGNATURE * JACKY BARFIELD 07/20/2023 ADDENDUM STATUS: COMPLETED This message was forwarded to MD Audiology Nitin Barfield for review. Request was sent to MD Audiology 07/13/2023. Shellie the 's spouse called [facility] to see if a new consult had been placed for Audiology. Shellie stated the has a broken hearing aid and they have difficulty hearing. Please check on the status and call Shellie to let them know. Shellie can be reached at /riccardo/ Araceli Torre RN, BSN, CCM muck operator Atm Manager Signed: 07/20/2023 11:12 Receipt Acknowledged By: * AWAITING SIGNATURE * JACKY BARFIELD [facility] Jul 13, 2023 02:36 PM NONVA NOTE: LOCAL TITLE: [facility]-REQUEST FOR SERVICE NOTE STANDARD TITLE: NONVA NOTE DATE OF NOTE: JUL 13, 2023@14:36 ENTRY DATE: JUL 13, 2023@14:36:40 AUTHOR: ARACELI TORRE EXP COSIGNER: URGENCY: STATUS: COMPLETED SUBJECT: Community care Audiology Consult # [id number] [facility]-REQUEST FOR SERVICE NOTE Has ADDENDA PACT: PLEASE ADDRESS Received referral for additional services from patient's [facility] Audiology provider. Most recent referral on 05/18/2023. Authorization#: [id number] valid from 2022-09-20 through 2023-05-18 [facility] [address] [place] [address] PH: [phone] FX: [phone] Please see RFS and notes uploaded to Audiology consult # [id number] dated 07/31/2022 for details. RFS and records uploaded to [facility] note dated 07/12/2023. Place new consult if clinically indicated, thank you. Community Care RN to contact with questions regarding this care: Araceli Torre RN /riccardo/ Araceli Torre RN, BSN, CCM muck operator Atm Manager Signed: 07/13/2023 14:39 Receipt Acknowledged By: 07/20/2023 13:25 /es/ Pauly PIERCE DOCTOR OF AUDIOLOGY 07/20/2023 ADDENDUM STATUS: COMPLETED Shellie the 's spouse called [facility] to see if a new consult had been placed for Audiology. Shellie stated the has a broken hearing aid and they have difficulty hearing. Please check on the status and call Shellie to let them know. Shellie can be reached at . /es/ HUNG BOB MSA ADVANCED RIGGING LOFT MECHANIC Signed: 07/20/2023 11:03 Receipt Acknowledged By: 07/20/2023 11:10 /es/ Araceli Torre RN, BSN, CCM muck operator Atm Manager 07/20/2023 ADDENDUM STATUS: COMPLETED This message was forwarded to MD Audiology Nitin Barfield for review. Request was sent to [facility] Audiology 07/13/2023. Shellie the 's spouse called [facility] to see if a new consult had been placed for Audiology. Shellie stated the has a broken hearing aid and they have difficulty hearing. Please check on the status and call Shellie to let them know. Shellie can be reached at /es/ Araceli Torre RN, BSN, [facility] muck operator Atm Manager Signed: 07/20/2023 11:12 Receipt Acknowledged By: 07/20/2023 11:53 /es/ Pauly PIERCE DOCTOR OF AUDIOLOGY ARACELI TORRE [facility]
--- OUTSIDE RECORDS SUMMARY | 2023-08-22 09:01 | XMS_ITS | Encounter Summary ---
Author Name Department of Vetera Affairs Organization Department of Vetera ns Affairs Address [address] [place] [address] Support Name Relationship Address Phone SHELLIE CASAS [...] Cherry's Name Patient's Relationship to Policy Cherry [facility] (WNR) MEDICARE ADVANTAGE [facility] (WNR) May 14, 2020 [id number] [phone] PITER CASAS ERD PATIENT Selected Encounter This section includes the information on record at [place] for the Encounter. Date/Time Encounter Type Encounter Description Reason Pro vider Source Jul 11, 2023 01:55 PM Outpatient Encounter COMMUNITY CARE CONSULT IHE Encounter Template Text not used by [place] Plan of Treatment: Future Appointments (+ 6 months) and Future Tests (+/- 45 days) The Plan of Treatment section includes future care activities for the patient from all [place] treatmentfacilities. This section includes future appointments and future orders which are active, pending or scheduled. Future Appointments This section includes appointments that were scheduled to occur 6 months from the date of the Encounter, up to a maximum of 20 appointments. The data comes from all [place] treatment facilities. Appointment Date/Time Appointment Type Appointme nt Facility Name Aug 10, 2023 10:45 AM AMBULATORY - SURGERY [facility] Encounter Notes: All associated encounter notes This section contains the clinical notes associated to the Encounter. Date/Time Encounter Note(s) Provider Source Jul 11, 2023 01:55 PM NONVA NOTE: LOCAL TITLE: COMMUNITY CARE-CARE COORDINATION PLAN NOTE STANDARD TITLE: NONVA NOTE DATE OF NOTE: JUL 11, 2023@13:55 ENTRY DATE: JUL 11, 2023@13:56:31 AUTHOR: AUBREE SALTER COSIGNER: URGENCY: STATUS: COMPLETED COMMUNITY CARE-CARE COORDINATION PLAN NOTE Has ADDENDA CONTACT [place] contacted on Jun to discuss a continuation of care for audiology services for . Knuckle Strap Sewer did call [facility] and spoke with Shira who alerted his provider Ezequiel Nye to complete the RFAS form, attached records and fax to the [place] at [phone]. Shira sent a message to Dr. Nye's team to complete the RFAS and fax it. Otherwise if they have questions, they are to call [phone]. Action Needed? Yes Alerting 's Care Coodinator by [facility] for clinical review as needed. /riccardo/ HARRISON SALTER Advanced Orthopaedic Physician Assistant Signed: 07/11/2023 14:02 Receipt Acknowledged By: 07/11/2023 14:13 /riccardo/ Araceli Cottrell RN, BSN, [facility] optical effects line up person Seafood Service Team Member 07/11/2023 ADDENDUM STATUS: COMPLETED It was 's Moe, that repairer typewriter spoke with. A conference call was done so she was part of the conversation Isai had regarding additional audiology services for . /nallely SALTER Advanced Orthopaedic Physician Assistant Signed: 07/11/2023 14:04 SHEILA SALTER [facility]
--- OUTSIDE RECORDS SUMMARY | 2023-08-22 09:01 | XMS_ITS | Continuity of Care Document ---
Author Name [facility] Organization [facility] Care Team Providers Care Long Chain Beamer Name Role Phone [facility] Unavailable Unavailable Problems Combined list of problems from Department of [facility] and [facility] facilities. It does not include entries that were removed or entered in error. Problem Status Onset Date Problem Type Date of Resolution Comments Source Exposure to potentially hazardous substance ([facility] [id number]) Active 07/20/19 24 Condition Jul 20, 2023 Entered By: MECHELLE DEMPSEY Comment: [facility] Documentation Initiative [facility] CAD - Coronary Artery Disease ([facility] [id number]) Active Condition [place] ([facility]) CHF - Congestive Heart Failure ([facility] [id number]) Active Condition [facility]) Diabetes Mellitus Type 2 ([facility] [id number]) Active Condition [facility]) HTN - Hypertension ([facility] [id number]) Active Condition [place] ([facility]) Hyperlipidemia ([facility] [id number]) Active Condition [facility]) Long-term current use of insulin Active Condition [facility]) Peripheral neuropathy due to type 2 diabetes mellitus Active Condition [place] ([facility]) Diagnosis: ICD-10-CM H90.3 Sensorineural hearing loss, bilateral Active Diagnosis [facility] Diagnosis: ICD-10-CM I50.9 Heart failure, unspecified Active Diagnosis [facility]) Diagnosis: ICD-10-CM E11.9 Type 2 diabetes mellitus without complications Active Diagnosis [facility] Diagnosis: ICD-10-CM R26.89 Other abnormalities of gait and mobility Active Diagnosis [facility] ([facility]) Diagnosis: ICD-10-CM Z00.00 Encntr for general adult medical exam w/o abnormal findings Active Diagnosis [facility] ([facility]) Medications Combined list of outpatient medications from Department of [facility] and [facility] facilities.Medications provided include 1) outpatient medications from the last 15 months, and 2) patient-reported medications. Medication Details Route Status Patient Instructions Prescription Expires Prescription Number Last Dispense Date Ordering Provider Order Date Source APIXABAN 5MG TAB TAKE ONE TABLET BY MOUTH EVERY 12 HOURS ORALLY ACTIVE RYAN CHESTER 2022 [facility] ([facility]) ATORVASTATI N CA 40MG TAB TAKE ONE TABLET BY MOUTH DAILY ORALLY ACTIVE RYAN CHESTER 2022 [facility] ([facility]) CADEXOMER IODINE 0.9% GEL,TOP APPLY THIN LAYER TOPICALL Y DIRECTED KAYLI Jackson WOUND CARE ORDERS TOPICA LLY ACTIVE 02/16/2024 [id number] KATHY MURPHY 2022 [place] [facility] CLOPIDOGREL BISULFATE 75MG TAB TAKE ONE TABLET BY MOUTH DAILY ORALLY ACTIVE RYAN CHESTER 2022 [facility] ([facility]) CONTOUR NEXT (GLUCOSE) TEST STRIP USE 1 STRIP THREE TIMES A DAY RYAN TRAVIS 2020 [facility] ([facility]) FUROSEMIDE 40MG TAB TAKE ONE TABLET BY MOUTH DAILY ORALLY ACTIVE FELICITY CHESTER [employer] 2022 [facility] ([facility]) GLIPIZIDE 5MG TAB TAKE ONE TABLET BY MOUTH TWICE A DAY ORALLY ACTIVE RYAN CHESTER 2022 [facility] ([facility]) INSULIN ASPART (HUMAN) INJ INJECT 10 UNITS UNDER THE SKIN BEFORE MEALS SUBCUT ANEOUS ACTIVE RYAN CHESTER 2022 [facility] ([facility]) INSULIN GLARGINE 300UNITS/ML 3ML PEN INJ INJECT 25 UNITS UNDER THE SKIN DAILY SUBCUT ANEOUS ACTIVE RYAN CHESTER 2022 [facility] ([facility]) LOSARTAN 25MG TAB TAKE ONE-HALF TABLET BY MOUTH DAILY ORALLY ACTIVE RYAN CHESTER 2022 [facility] ([facility]) METOPROLOL SUCCINATE 50MG TAB,SA TAKE ONE TABLET BY MOUTH DAILY ORALLY ACTIVE RYAN CHESTER 2022 [facility] ([facility]) NITROGLYCER IN 0.4MG TAB,SUBLING UAL DISSOLVE ONE TABLET UNDER THE TONGUE PRN SUBLIN GUAL RYAN GLASS 2020 [facility] ([facility]) NON VA MED NOT LISTED USE ACCU-GRACIE CK ALEJO PLUS METER THREE TIMES A DAY RYAN TRAVIS 2020 [facility] ([facility]) SHIRA FINE 32 DISPOSABLE NEEDLE USE 1 NEEDLE UNDER THE SKIN FOUR TIMES A DAY SUBCUT ANEOUS ACTIVE RYAN CHESTER 2020 [facility] ([facility]) PANTOPRAZOL E NA 40MG TAB,EC TAKE ONE TABLET BY MOUTH DAILY ORALLY ACTIVE RYAN CHESTER K 2022 [facility] ([facility]) SACUBITRIL 24MG/VALSAR ADAM 26MG TAB TAKE ONE TABLET BY MOUTH TWO TIMES A DAY ORALLY ACTIVE RYAN CHESTER 2022 [facility] ([facility]) SPIRONOLACT ONE 25MG TAB TAKE ONE TABLET BY MOUTH DAILY ORALLY ACTIVE FELICITY CHESTER P 2022 [facility] ([facility]) TRIAMCINOLO NE ACETONIDE 0.1% OINT,TOP APPLY SMALL AMOUNT TOPICALL Y THREE TIMES A DAY NEEDED TOPICA LLY ACTIVE RYAN CHESTER 2020 [facility] ([facility]) Immunizations Combined list of available immunizations from the Department of Defense and Veterans Affairs facilities. Immunization Series Date Given Administered By Site Reaction Lot Number CVX Code Drug Technician Test Systems Status Comments Source INFLUENZA, HIGH-DOSE, QUADRIVALENT 1 2021 197 complet ed [facility] COVID-19 (MODERNA), MRNA, LNP-S, BIVALENT, PF, 50 MCG/0.5 ML OR 25MCG/0.25 ML DOSE 1 2021 229 complet ed [facility] COVID-19 (PFIZER), MRNA, LNP-S, PF, 30 MCG/0.3 ML DOSE 3 2020 208 complet ed [facility] INFLUENZA, UNSPECIFIED FORMULATION 2020 88 complet ed [facility] TDAP 2020 115 complet ed [employer], [id number] , exp-2022 and given VIS dated 12/17/2020 [facility] ([facility]) ZOSTER RECOMBINANT 2 2020 187 complet ed [facility] ([facility]) ZOSTER RECOMBINANT 1 2020 187 complet ed [facility] ([facility]) COVID-19 (PFIZER), MRNA, LNP-S, PF, 30 MCG/0.3 ML DOSE 2 2020 208 complet ed [facility] COVID-19 (PFIZER), MRNA, LNP-S, PF, 30 MCG/0.3 ML DOSE 1 2020 208 complet ed [facility] INFLUENZA, UNSPECIFIED FORMULATION 2019 88 complet ed [facility] PNEUMOCOCCAL CONJUGATE PCV 13 2014 133 complet ed Per [facility] PNEUMOCOCCAL POLYSACCHARID E PPV23 2010 33 complet ed [facility] PNEUMOCOCCAL POLYSACCHARID E PPV23 2005 33 complet ed [facility] Results Combined list of recent chemistry, hematology and other laboratory results from Department of Defense and Veterans Affairs, ranging from 15 months to all on record, depending upon the facility. Order Name Results Value Reference Range Date Interpretation Specimen Comments Source BASIC METABOLIC PANEL+MG CREATININE [MASS/VOLUM E] IN SERUM OR PLASMA 1.2 0.7 - 1.2 01/23 Specimen Type: PLASMA No comment entered. Ordering Provider: AILIN CHESTER Report Released Date/Time: Jan 23, 2023 02:00 PM Reporting Lab: [facility] [address] Performing Lab: [facility] [address] [place] ([facility]) BASIC METABOLIC PANEL+MG UREA NITROGEN [MASS/VOLUM E] IN SERUM OR PLASMA 35 8 - 26 01/23 H Specimen Type: PLASMA No comment entered. Ordering Provider: AILIN CHESTER Report Released Date/Time: Jan 23, 2023 02:00 PM Reporting Lab: [facility] [address] Performing Lab: [facility] [address] [place] ([facility]) BASIC METABOLIC PANEL+MG GLUCOSE [MASS/VOLUM E] IN SERUM OR PLASMA 239 70 - 100 01/23 H Specimen Type: PLASMA No comment entered. Ordering Provider: AILIN CHESTER Report Released Date/Time: Jan 23, 2023 02:00 PM Reporting Lab: [facility] [address] Performing Lab: [facility] [address] [place] ([facility]) BASIC METABOLIC PANEL+MG SODIUM [MOLES/VOLU ME] IN SERUM OR PLASMA 140 136 - 145 01/23 Specimen Type: PLASMA No comment entered. Ordering Provider: AILIN CHESTER Report Released Date/Time: Jan 23, 2023 02:00 PM Reporting Lab: [facility] [address] Performing Lab: [address] [place] ([facility]) BASIC METABOLIC PANEL+MG POTASSIUM [MOLES/VOLU ME] IN SERUM OR PLASMA 5.1 3.5 - 5.1 01/23 Specimen Type: PLASMA No comment entered. Ordering Provider: AILIN CHESTER Report Released Date/Time: Jan 23, 2023 02:00 PM Reporting Lab: [facility] [address] Performing Lab: [facility] [address] [place] ([facility]) BASIC METABOLIC PANEL+MG CHLORIDE [MOLES/VOLU ME] IN SERUM OR PLASMA 109 98 - 107 01/23 H Specimen Type: PLASMA No comment entered. Ordering Provider: AILIN CHESTER Report Released Date/Time: Jan 23, 2023 02:00 PM Reporting Lab: [facility] [address] Performing Lab: [facility] [address] [place] ([facility]) BASIC METABOLIC PANEL+MG CARBON DIOXIDE, TOTAL [MOLES/VOLU ME] IN SERUM OR PLASMA 21 22 - 29 01/23 L Specimen Type: PLASMA No comment entered. Ordering Provider: AILIN CHESTER Report Released Date/Time: Jan 23, 2023 02:00 PM Reporting Lab: [facility] [address] Performing Lab: [facility] [address] [place] ([facility]) BASIC METABOLIC PANEL+MG CALCIUM [MASS/VOLUM E] IN SERUM OR PLASMA 9.4 8.4 - 10.2 01/23 Specimen Type: PLASMA No comment entered. Ordering Provider: AILIN CHESTER Report Released Date/Time: Jan 23, 2023 02:00 PM Reporting Lab: [facility] [address] Performing Lab: [facility] [address] [place] ([facility]) BASIC METABOLIC PANEL+MG MAGNESIUM [MASS/VOLUM E] IN SERUM OR PLASMA 1.7 1.6 - 2.6 01/23 Specimen Type: PLASMA No comment entered. Ordering Provider: AILIN CHESTER Report Released Date/Time: Jan 23, 2023 02:00 PM Reporting Lab: [facility] [address] Performing Lab: [facility] [address] [place] ([facility]) BASIC METABOLIC PANEL+MG ANION GAP IN SERUM OR PLASMA 10 5 - 15 01/23 Specimen Type: PLASMA No comment entered. Ordering Provider: AILIN CHESETR Report Released Date/Time: Jan 23, 2023 02:00 PM Reporting Lab: [facility] [address] Performing Lab: [facility] [address] [place] ([facility]) BASIC METABOLIC PANEL+MG GLOMERULAR FILTRATION RATE/1.73 SQ M.PREDICTED [VOLUME RATE/AREA] IN SERUM, PLASMA OR BLOOD BY CREATININE- BASED FORMULA (CKD-EPI 2020) 61 60 01/23 Specimen Type: PLASMA No comment entered. Ordering Provider: AILIN CHESTER Report Released Date/Time: Jan 23, 2023 02:00 PM Reporting Lab: [facility] [address] Performing Lab: [facility] [address] [place] ([facility]) BNP NATRIURETIC PEPTIDE B [MASS/VOLUM E] IN SERUM OR PLASMA 1549 <99 - 99 01/23 H Specimen Type: PLASMA No comment entered. Ordering Provider: AILIN CHESTER Report Released Date/Time: Jan 23, 2023 02:00 PM Reporting Lab: [facility] [address] Performing Lab: [facility] [address] [place] ([facility]) MICROALBU MIN/CREAT ININE RATIO URINE CREATININE [MASS/VOLUM E] IN URINE 132.8 58.0 - 161.0 11/23 Specimen Type: URINE No comment entered. Ordering Provider: AILIN CHESTER Report Released Date/Time: Nov 23, 2022 11:58 AM Reporting Lab: [facility] [address] Performing Lab: [facility] [address] [place] ([facility]) MICROALBU MIN/CREAT ININE RATIO URINE MICROALBUMI N/CREATININ E [MASS RATIO] IN URINE 28.0 11/23 Specimen Type: URINE No comment entered. Ordering Provider: AILIN CHESTER Report Released Date/Time: Nov 23, 2022 11:58 AM Reporting Lab: [facility] [address] Performing Lab: [place] [phone] [place] ([facility]) MICROALBU MIN/CREAT ININE RATIO URINE MICROALBUMI N [MASS/VOLUM E] IN URINE 37.2 11/23 H Specimen Type: URINE No comment entered. Ordering Provider: AILIN CHESTER Report Released Date/Time: Nov 23, 2022 11:58 AM Reporting Lab: [place] [address] Performing Lab: [place] [address] [place] ([facility]) LIPID PANEL,NON -FASTING CHOLESTEROL [MASS/VOLUM E] IN SERUM OR PLASMA 130 11/23 Specimen Type: PLASMA No comment entered. Ordering Provider: AILIN CHESTER Report Released Date/Time: Nov 23, 2022 11:58 AM Reporting Lab: [facility] [address] Performing Lab: [facility] [phone] [place] [address] ([facility]) LIPID PANEL,NON -FASTING CHOLESTEROL IN HDL [MASS/VOLUM E] IN SERUM OR PLASMA 39 11/23 L Specimen Type: PLASMA No comment entered. Ordering Provider: AILIN CHESTER Report Released Date/Time: Nov 23, 2022 11:58 AM Reporting Lab: [facility] [address] Performing Lab: [facility] [address] [place] ([facility]) LIPID PANEL,NON -FASTING CHOLESTEROL IN LDL [MASS/VOLUM E] IN SERUM OR PLASMA BY CALCULATION 73 11/23 Specimen Type: PLASMA No comment entered. Ordering Provider: AILIN CHESTER Report Released Date/Time: Nov 23, 2022 11:58 AM Reporting Lab: [facility] [address] Performing Lab: [place] [address] [place] ([facility]) LIPID PANEL,NON -FASTING CHOLESTEROL IN VLDL [MASS/VOLUM E] IN SERUM OR PLASMA BY CALCULATION 18 11/23 Specimen Type: PLASMA No comment entered. Ordering Provider: AILIN CHESTER Report Released Date/Time: Nov 23, 2022 11:58 AM Reporting Lab: [place] [id number] Performing Lab: [address] [place] [address] ([facility]) LIPID PANEL,NON -FASTING CHOLESTEROL NON HDL [MASS/VOLUM E] IN SERUM OR PLASMA 91 11/23 Specimen Type: PLASMA No comment entered. Ordering Provider: AILIN CHESTER Report Released Date/Time: Nov 23, 2022 11:58 AM Reporting Lab: [facility] [address] Performing Lab: [address] [place] [address] ([facility]) LIPID PANEL,NON -FASTING TRIGLYCERID E [MASS/VOLUM E] IN SERUM OR PLASMA 92 11/23 Specimen Type: PLASMA No comment entered. Ordering Provider: AILIN CHESTER Report Released Date/Time: Nov 23, 2022 11:58 AM Reporting Lab: [facility] [address] Performing Lab: [facility] [address] [place] ([facility]) CBC LEUKOCYTES [#/VOLUME] IN BLOOD BY AUTOMATED COUNT 10.80 4.0 - 11.0 11/23 Specimen Type: BLOOD No comment entered. Ordering Provider: AILIN CHESTER Report Released Date/Time: Nov 23, 2022 11:58 AM Reporting Lab: [facility] [address] Performing Lab: [address] [place] ([facility]) CBC ERYTHROCYTE S [#/VOLUME] IN BLOOD BY AUTOMATED COUNT 3.87 4.6 - 6.2 11/23 L Specimen Type: BLOOD No comment entered. Ordering Provider: AILIN CHESTER Report Released Date/Time: Nov 23, 2022 11:58 AM Reporting Lab: [facility] [address] Performing Lab: [place] [phone] [place] ([facility]) CBC HEMOGLOBIN [MASS/VOLUM E] IN BLOOD 12.1 13.5 - 17.9 11/23 L Specimen Type: BLOOD No comment entered. Ordering Provider: AILIN CHESTER Report Released Date/Time: Nov 23, 2022 11:58 AM Reporting Lab: [place] [phone] Performing Lab: [place] [phone] [place] ([facility]) CBC HEMATOCRIT [VOLUME FRACTION] OF BLOOD BY AUTOMATED COUNT 37.5 41 - 54 11/23 L Specimen Type: BLOOD No comment entered. Ordering Provider: AILIN CHESTER Report Released Date/Time: Nov 23, 2022 11:58 AM Reporting Lab: [place] [phone] Performing Lab: [address] ([facility]) CBC MCV [ENTITIC VOLUME] BY AUTOMATED COUNT 96.9 80 - 100 11/23 Specimen Type: BLOOD No comment entered. Ordering Provider: AILIN CHESTER Report Released Date/Time: Nov 23, 2022 11:58 AM Reporting Lab: [facility] [address] Performing Lab: [facility] [phone] [place] [address] ([facility]) CBC MCH [ENTITIC MASS] BY AUTOMATED COUNT 31.3 27 - 33 11/23 Specimen Type: BLOOD No comment entered. Ordering Provider: AILIN CHESTER Report Released Date/Time: Nov 23, 2022 11:58 AM Reporting Lab: [facility] [address] Performing Lab: [place] [address] [place] ([facility]) CBC MCHC [MASS/VOLUM E] BY AUTOMATED COUNT 32.3 32.0 - 37.5 11/23 Specimen Type: BLOOD No comment entered. Ordering Provider: AILIN CHESTER Report Released Date/Time: Nov 23, 2022 11:58 AM Reporting Lab: [facility] [address] Performing Lab: [facility] [address] [place] ([facility]) CBC PLATELETS [#/VOLUME] IN BLOOD BY AUTOMATED COUNT 293 150 - 400 11/23 Specimen Type: BLOOD No comment entered. Ordering Provider: AILIN CHESTER Report Released Date/Time: Nov 23, 2022 11:58 AM Reporting Lab: [address] Performing Lab: [address] ([facility]) CBC PLATELET MEAN VOLUME [ENTITIC VOLUME] IN BLOOD BY AUTOMATED COUNT 10.3 7.4 - 10.4 11/23 Specimen Type: BLOOD No comment entered. Ordering Provider: AILIN CHESTER Report Released Date/Time: Nov 23, 2022 11:58 AM Reporting Lab: [address] Performing Lab: [address] ([facility]) CBC ERYTHROCYTE DISTRIBUTIO N WIDTH [RATIO] BY AUTOMATED COUNT 13.2 11.5 - 14.5 11/23 Specimen Type: BLOOD No comment entered. Ordering Provider: AILIN CHESTER Report Released Date/Time: Nov 23, 2022 11:58 AM Reporting Lab: [place] [id number] Performing Lab: [address] ([facility]) TSH W/REFLEX TO FREE T4 THYROTROPIN [UNITS/VOLU ME] IN SERUM OR PLASMA 4.59 0.35 - 4.94 11/23 Specimen Type: PLASMA No comment entered. Ordering Provider: AILIN CHESTER Report Released Date/Time: Nov 23, 2022 11:58 AM Reporting Lab: [place] [phone] Performing Lab: [address] ([facility]) COMPREHEN SIVE METABOLIC PANEL+MG CREATININE [MASS/VOLUM E] IN SERUM OR PLASMA 1.2 0.7 - 1.2 11/23 Specimen Type: PLASMA No comment entered. Ordering Provider: AILIN CHESTER Report Released Date/Time: Nov 23, 2022 11:58 AM Reporting Lab: [address] Performing Lab: [address] ([facility]) COMPREHEN SIVE METABOLIC PANEL+MG UREA NITROGEN [MASS/VOLUM E] IN SERUM OR PLASMA 34 8 - 26 11/23 H Specimen Type: PLASMA No comment entered. Ordering Provider: AILIN CHESTER Report Released Date/Time: Nov 23, 2022 11:58 AM Reporting Lab: [facility] [address] Performing Lab: [facility] [address] [place] ([facility]) COMPREHEN SIVE METABOLIC PANEL+MG GLUCOSE [MASS/VOLUM E] IN SERUM OR PLASMA 54 70 - 100 11/23 L Specimen Type: PLASMA No comment entered. Ordering Provider: AILIN CHESTER Report Released Date/Time: Nov 23, 2022 11:58 AM Reporting Lab: [facility] [address] Performing Lab: [facility] [address] [place] ([facility]) COMPREHEN SIVE METABOLIC PANEL+MG SODIUM [MOLES/VOLU ME] IN SERUM OR PLASMA 143 136 - 145 11/23 Specimen Type: PLASMA No comment entered. Ordering Provider: AILIN CHESTER Report Released Date/Time: Nov 23, 2022 11:58 AM Reporting Lab: [facility] [address] Performing Lab: [facility] [address] [place] ([facility]) COMPREHEN SIVE METABOLIC PANEL+MG POTASSIUM [MOLES/VOLU ME] IN SERUM OR PLASMA 4.4 3.5 - 5.1 11/23 Specimen Type: PLASMA No comment entered. Ordering Provider: AILIN CHESTER Report Released Date/Time: Nov 23, 2022 11:58 AM Reporting Lab: [facility] [address] Performing Lab: [facility] [address] [place] ([facility]) COMPREHEN SIVE METABOLIC PANEL+MG CHLORIDE [MOLES/VOLU ME] IN SERUM OR PLASMA 107 98 - 107 11/23 Specimen Type: PLASMA No comment entered. Ordering Provider: AILIN CHESTER Report Released Date/Time: Nov 23, 2022 11:58 AM Reporting Lab: [facility] [address] Performing Lab: [facility] [address] [place] ([facility]) COMPREHEN SIVE METABOLIC PANEL+MG CARBON DIOXIDE, TOTAL [MOLES/VOLU ME] IN SERUM OR PLASMA 23 22 - 29 11/23 Specimen Type: PLASMA No comment entered. Ordering Provider: AILIN CHESTER Report Released Date/Time: Nov 23, 2022 11:58 AM Reporting Lab: [facility] [address] Performing Lab: [facility] [address] [place] ([facility]) COMPREHEN SIVE METABOLIC PANEL+MG CALCIUM [MASS/VOLUM E] IN SERUM OR PLASMA 9.7 8.4 - 10.2 11/23 Specimen Type: PLASMA No comment entered. Ordering Provider: AILIN CHESTER Report Released Date/Time: Nov 23, 2022 11:58 AM Reporting Lab: [address] Performing Lab: [address] [place] [address] ([facility]) COMPREHEN SIVE METABOLIC PANEL+MG PROTEIN [MASS/VOLUM E] IN SERUM OR PLASMA 7.2 6.0 - 8.3 11/23 Specimen Type: PLASMA No comment entered. Ordering Provider: AILIN CHESTER Report Released Date/Time: Nov 23, 2022 11:58 AM Reporting Lab: [facility] [address] Performing Lab: [address] [place] ([facility]) COMPREHEN SIVE METABOLIC PANEL+MG ALBUMIN [MASS/VOLUM E] IN SERUM OR PLASMA 4.1 3.5 - 5.2 11/23 Specimen Type: PLASMA No comment entered. Ordering Provider: AILIN CHESTER Report Released Date/Time: Nov 23, 2022 11:58 AM Reporting Lab: [facility] [address] Performing Lab: [facility] [id number] ([facility]) COMPREHEN SIVE METABOLIC PANEL+MG BILIRUBIN.T OTAL [MASS/VOLUM E] IN SERUM OR PLASMA 0.5 0.2 - 1.2 11/23 Specimen Type: PLASMA No comment entered. Ordering Provider: AILIN CHESTER Report Released Date/Time: Nov 23, 2022 11:58 AM Reporting Lab: [facility] [address] Performing Lab: [facility] [address] [place] ([facility]) COMPREHEN SIVE METABOLIC PANEL+MG MAGNESIUM [MASS/VOLUM E] IN SERUM OR PLASMA 1.4 1.6 - 2.6 11/23 L Specimen Type: PLASMA No comment entered. Ordering Provider: AILIN CHESTER Report Released Date/Time: Nov 23, 2022 11:58 AM Reporting Lab: [facility] [address] Performing Lab: [facility] [address] [place] ([facility]) COMPREHEN SIVE METABOLIC PANEL+MG ANION GAP IN SERUM OR PLASMA 13 5 - 15 11/23 Specimen Type: PLASMA No comment entered. Ordering Provider: AILIN CHESTER Report Released Date/Time: Nov 23, 2022 11:58 AM Reporting Lab: [facility] [address] Performing Lab: [place] [phone] [place] ([facility]) COMPREHEN SIVE METABOLIC PANEL+MG ALKALINE PHOSPHATASE [ENZYMATIC ACTIVITY/VO LUME] IN SERUM OR PLASMA 87 40 - 150 11/23 Specimen Type: PLASMA No comment entered. Ordering Provider: AILIN CHESTER Report Released Date/Time: Nov 23, 2022 11:58 AM Reporting Lab: [facility] [id number] Performing Lab: [facility] [id number] [place] ([facility]) COMPREHEN SIVE METABOLIC PANEL+MG ALANINE AMINOTRANSF ERASE [ENZYMATIC ACTIVITY/VO LUME] IN SERUM OR PLASMA 28 11/23 Specimen Type: PLASMA No comment entered. Ordering Provider: AILIN CHESTER Report Released Date/Time: Nov 23, 2022 11:58 AM Reporting Lab: [facility] [id number] Performing Lab: [facility] [address] [place] ([facility]) COMPREHEN SIVE METABOLIC PANEL+MG ASPARTATE AMINOTRANSF ERASE [ENZYMATIC ACTIVITY/VO LUME] IN SERUM OR PLASMA 33 11/23 Specimen Type: PLASMA No comment entered. Ordering Provider: AILIN CHESTER Report Released Date/Time: Nov 23, 2022 11:58 AM Reporting Lab: [facility] [address] Performing Lab: [facility] [phone] [place] ([facility]) COMPREHEN SIVE METABOLIC PANEL+MG GLOMERULAR FILTRATION RATE/1.73 SQ M.PREDICTED [VOLUME RATE/AREA] IN SERUM, PLASMA OR BLOOD BY CREATININE- BASED FORMULA (CKD-EPI 2020) 61 11/23 Specimen Type: PLASMA No comment entered. Ordering Provider: AILIN CHESTER Report Released Date/Time: Nov 23, 2022 11:58 AM Reporting Lab: [facility] [id number] Performing Lab: [facility] [id number] [place] ([facility]) HEMOGLOBI N A1C HEMOGLOBIN A1C/HEMOGLO BIN.TOTAL IN BLOOD 7.4 4.0 - 6.0 11/23 H Specimen Type: BLOOD Comment: Values obtained from A1C measurement s can vary. For typical A1C assays, a reported value of 7.0 could actually be between 6.7 and 7.3 if measured by a reference method. A reported value of 9.0 could actually be between 8.7 and 9.3. Ref: http://www. ngsp.org/[place] Pdata.asp Ordering Provider: AILIN CHESTER Report Released Date/Time: Nov 23, 2022 11:58 AM Reporting Lab: [facility] [id number] Performing Lab: [facility] [id number] [place] ([facility]) Vital Signs Combined list of inpatient and outpatient Vital Signs from Department of Defense and Veterans Affairs, ranging from 12 months to all on record, depending upon the facility. Vital Sign Value Date Comments Source SYSTOLIC BLOOD PRESSURE 112 01/23/2023 12:55:26 [facility] ([facility]) DIASTOLIC BLOOD PRESSURE 72 01/23/2023 12:55:26 [facility]) PULSE OXIMETRY 95% 01/23/2023 12:55:26 [place] ([facility]) WEIGHT 190.2 01/23/2023 12:55:26 [facility] ([facility]) BMI 28kg/m2 01/23/2023 12:55:26 [facility]) PAIN 0 01/23/2023 12:55:26 [facility] HEIGHT 69.5 01/23/2023 12:55:26 [facility] ([facility]) TEMPERATURE 97.5 01/23/2023 12:55:26 [facility] ([facility]) PULSE 94 01/23/2023 12:55:26 [facility] ([facility]) RESPIRATION 16 01/23/2023 12:55:26 [facility] ([facility]) SYSTOLIC BLOOD PRESSURE 138 11/23/2022 11:13:17 [facility] ([facility]) DIASTOLIC BLOOD PRESSURE 76 11/23/2022 11:13:17 [facility]) PULSE OXIMETRY 98% 11/23/2022 11:13:17 [place] ([facility]) WEIGHT 186 11/23/2022 11:13:17 [facility] ([facility]) BMI 27kg/m2 11/23/2022 11:13:17 [facility] ([facility] PAIN 0 11/23/2022 11:13:17 [facility] ([facility] HEIGHT 69.5 11/23/2022 11:13:17 [facility] ([facility]) TEMPERATURE 97.7 11/23/2022 11:13:17 [facility] ([facility]) PULSE 59 11/23/2022 11:13:17 [facility] ([facility]) RESPIRATION 18 11/23/2022 11:13:17 [facility] ([facility]) Encounters Combined list of: 1) Encounters from Department of Veterans Affairs facilities going back up to thelast 18 months. 2) Encounters from the Department of [facility] facilities going back up to 280 months. Location Location Details Encounter Type Encounter Number Reason For Visit Attending Provider ADM Date DC Date Status Disposition Source [place] [facility] Outpatient Encounter [id number] 02/26 [facility] [place] [facility] Outpatient Encounter [id number] 03/29 [facility] [place] [facility] Outpatient Encounter [id number] 04/05 [facility] [place] [facility] Outpatient Encounter [id number] 07/31 [facility] [place] [facility] Outpatient Encounter [id number] 08/21 [facility] [place] [facility] Outpatient Encounter [id number] 09/20 [place] [facility] [id number] [id number] 513 11/11 [facility] [place] [facility] Outpatient Encounter [id number] ZARI POWER 11/16 [place] [facility] [place] [facility] Outpatient Encounter [id number] 11/21 [place] [facility] OFFICE O/P EST MOD 30-39 MIN [id number] Diagnos is: ICD-10- CM Z00.00 Encntr for general adult medical exam w/o abnorma l finding s
CANDELARIO CHESTER K 11/23 [place] ([facility]) [place] ([facility]) GAIT TRAINING THERAPY [id number] Diagnos is: ICD-10- CM R26.89 Other abnorma lities of gait and mobilit y
OMAYRA JAMESON V 11/23 [place] [facility] ([facility]) [place] [facility] Outpatient Encounter [id number] SA JAMARI JAMESON R 12/11 [place] [facility] [place] [facility] Outpatient Encounter [id number] 12/25 [place] [facility] [place] [facility] Outpatient Encounter [id number] SA JAMARI JAMESON R 12/28 [place] [facility] [place] [facility] Outpatient Encounter [id number] 01/05 [place] [facility] [place] [facility] Outpatient Encounter [id number] 01/11 [place] [facility] [place] [facility] Outpatient Encounter [id number] 01/16 [place] [facility] ([facility]) OFFICE O/P EST HI 40-54 MIN [id number] Diagnos is: ICD-10- CM I50.9 Heart failure , unspeci fied
CANDELARIO CHESTER 01/23 [facility] ([facility] [place] [facility] Outpatient Encounter [id number] Marcus POTTS Xavi 01/24 [place] [facility] [place] [facility] Outpatient Encounter [id number] Danica TORRE 02/05 [place] [facility] [place] [facility] Outpatient Encounter [id number] 02/09 [place] [facility] [place] [facility] Outpatient Encounter [id number] Danica TORRE 02/09 [place] [place] [facility] Outpatient Encounter [id number] 02/14 [place] [facility] [place] [facility] Outpatient Encounter [id number] 02/15 [place] [facility] [place] [facility] Outpatient Encounter [id number] 02/19 [place] [facility] [place] [facility] Outpatient Encounter [id number] 02/20 [place] [facility] [place] [facility] Outpatient Encounter [id number] 02/20 [place] [facility] [place] [facility] Outpatient Encounter [id number] 02/20 [place] [facility] [place] [facility] Outpatient Encounter [id number] 02/20 [place] [facility] [place] [facility] Outpatient Encounter [id number] 02/21 [place] [facility] [place] [facility] QNHP OL DIG ASSMT&MGMT 5-10 [id number] Diagnos is: ICD-10- CM E11.9 Type 2 diabete s mellitu s without complic ations< br/> HARDER,SIVA LY 02/22 [place] [facility] HC PRO PHONE CALL 11-20 MIN [id number] Diagnos is: ICD-10- CM I50.9 Heart failure , unspeci fied
JERMAINE ALCANTAR ANDON M 02/23 [facility] ([facility]) [place] [facility] Outpatient Encounter [id number] 02/26 [place] [facility] [place] [facility] Outpatient Encounter [id number] 03/01 [place] [facility] [place] [facility] Outpatient Encounter [id number] SA TRINO RA R 03/09 [place] [facility] [place] [facility] Outpatient Encounter [id number] 03/14 [place] [facility] [place] [facility] Outpatient Encounter [id number] SA JAMARI JAMESON R 04/12 [place] [facility] [place] [facility] Outpatient Encounter [id number] SA JAMARI JAMESON R 04/16 [place] [facility] [place] [facility] Outpatient Encounter [id number] SA JAMARI JAMESON R 05/01 [place] [facility] [place] [facility] Outpatient Encounter [id number] 07/11 [place] [facility] [place] [facility] Outpatient Encounter [id number] [place] [facility] [place] [facility] Outpatient Encounter [id number] 07/12 [place] [facility] [place] [facility] HC PRO PHONE CALL 5-10 MIN [id number] Diagnos is: ICD-10- CM 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
CARY CORCORAN 08/09 [facility] Social History Combined list of available smoking, tobacco, and other social history from Department of Defense and Veterans Affairs facilities. Social History Type Response Date Comment [facility] e Tobacco smoking status [place] VA-TOBACCO FORMER USER 11/23/2022 [place] ([facility]) History of tobacco use MD-TOBACCO QUIT 1 5 YRS OR MORE 11/23/2022 [place] ([facility]) History of tobacco use VA-TOBACCO FORMER USER 11/29/2021 [place] ([facility]) History of tobacco use MD-TOBACCO FORMER USER 10/21/2020 [facility])
--- OUTSIDE RECORDS SUMMARY | 2023-08-22 09:01 | XMS_ITS | Encounter Summary ---
Author Name [employer] [facility] [employer] Organization [facility] [employer] Address [address] [place] [address] Support Name Relationship Address Phone SHELLIE CASAS [...] Name Patient's Relationship to Policy Cherry [facility] (WNR) MEDICARE ADVANTAGE [facility] (WNR) May 14, 2020 [id number] [phone] PITER CASAS ERD PATIENT Selected Encounter This section includes the information on record at [place] for the Encounter. Date/Time Encounter Type Encounter Description Reason Provider Source Dec 28, 2022 04:27 PM Outpatient Encounter ADMIN PAT ACTIVTIES (MASNONCT) MIYA JAMESON Encounter Template Text not used by [place] Plan of Treatment: Future Appointments (+ 6 months) and Future Tests (+/- 45 days) The Plan of Treatment section includes future care activities for the patient from all [place] treatmentfacilities. This section includes future appointments and future orders which are active, pending or scheduled. Future Appointments This section includes appointments that were scheduled to occur 6 months from the date of the Encounter, up to a maximum of 20 appointments. The data comes from all [place] treatment facilities. Appointment Date/Time Appointment Type Appointme nt Facility Name Jan 22, 2023 07:00 AM [facility]ORY [place] NONE [place] [facility] [facility] Jan 22, 2023 07:01 AM AM[place]UL[place]ORY [place] NONE [place] [facility] Jan 23, 2023 01:00 PM AMBULATORY - [facility] Feb 15, 2023 12:45 PM AMBULATORY - NONE [place] [facility] [facility] Feb 20, 2023 07:01 AM AMBULATORY - NONE [place] [facility] Feb 23, 2023 11:00 AM AMBULATORY - [facility]IC[facility] Mar 09, 2023 08:41 PM AM[place]ULATORY [place]ONE [place] [facility] Apr 12, 2023 11:56 PM AM[place]UL[facility]ORY [place]ONE [place] [facility] Apr 16, 2023 09:26 PM AM[place]UL[facility]ORY - NONE [place] [facility] May 01, 2023 06:28 PM AMBULATORY - NONE [place] [facility] Lab Results: +/- 30 days of the encounter This section includes the Chemistry and Hematology Lab Results on record with [facility] for the patient. Radiology Reports and Pathology Reports are provided separately, in subsequent sections. Lab Results This section contains the Chemistry/Hematology Results that were resulted 30 days before or 30 daysafter the date of the Encounter. Date/Time Source Result Type Result - Unit Interpretation Reference Range Comment Jan 23, 2023 02:14 PM [place] ([facility]) BASIC METABOLIC PANEL+MG Specimen Type: PLASMA No comment entered. Ordering Provider: JIMENEZ CHESTER Report Released Date/Time: Jan 23, 2023 02:00 PM Reporting Lab: [facility] [id number] Performing Lab: [facility] [id number] CREATININE 1.2 0.7-1.2 UREA NITROGEN 35 H 8-26 GLUCOSE 239 H 70-100 SODIUM 140 136-145 POTASSIUM 5.1 3.5-5.1 CHLORIDE 109 H 98-107 CO2 21 L 22-29 CALCIUM 9.4 8.4-10.2 MAGNESIUM 1.7 1.6-2.6 ANION GAP 10 5-15 .CREAT EGFR(CKD-EPI) 61 >60 Jan 23, 2023 02:14 PM [place] ([facility]) BNP Specimen Type: PLASMA No comment entered. Ordering Provider: JIMENEZ CHESTER Report Released Date/Time: Jan 23, 2023 02:00 PM Reporting Lab: [facility] [id number] Performing Lab: [facility] [id number] BNP 1549 H <99 Encounter Notes: All associated encounter notes This section contains the clinical notes associated to the Encounter. Date/Time Encounter Note(s) Provider Source Jan 10, 2023 08:40 PM ADDENDUM: LOCAL TITLE: Addendum STANDARD TITLE: ADDENDUM DATE OF NOTE: JAN 10, 2023@20:40:37 ENTRY DATE: JAN 10, 2023@20:40:38 AUTHOR: JIMENEZ CHESTER EXP COSIGNER: URGENCY: STATUS: COMPLETED Please contact /care center to see how he is doing. Does he need any follow-up care with the PACT? Thanks /riccardo/ JIMENEZ CHESTER MD PHYSICIAN Signed: 01/10/2023 20:41 Receipt Acknowledged By: 01/11/2023 11:12 /riccardo/ Lisa Alcantar RN [facility] --- Original Document --- 12/27/22 [facility] PRESENTING CARE COORD PLAN NOTE: Emergency Notification Intake Date Presenting to the Facility: Dec Method of Contact: Notified from [employer] worklist Notification ID: [id number] [facility] Referral #: [facility] Name: Hospital: [facility], Address: City: [place] State: [place] Zip Code: Phone : [facility] Point of Contact: Name: DEPT Chief complaint: hyperkalemia and acute decompensated HFrE Primary Diagnosis: Disposition Admitted Route of Admission: Date of Admission: Dec Admitting Diagnosis: I50.9 Community Care Provider: Confirm Level of Care: Closed - Approved for Ricarda /riccardo/ CARLA GUAJARDO SPANISH PROFESSOR Signed: 12/28/2022 16:36 Receipt Acknowledged By: 12/29/2022 12:35 /riccardo/ Miya Jameson RN LISA MSN senior financial analyst Irrigator 12/29/2022 ADDENDUM STATUS: COMPLETED Admitted to: [facility] date: 12/27/22 Current level of care: Critical Care Chief complaint: hyperkalemia Diagnosis: Hyperkalemia Assessment/Plan: # Hyperkalemia # ALEX - Likely due to decompensated HFrEF, possible contribution from lisinopril - Hold manager office services lisinopril - Repeat K - Maintain map>65, avoid nephrotoxins - Nephrology consult if worsening # Recent NSTEMI # Acute decompensated HFrEF # LADAN thrombus # Afib # CAD # HTN - Prior EF 30%. TRANSLATOR/INTERPRETER apixaban, clopidogrel, imdur, lisinopril, metoprolol - Repeat TTE - Start heparin gtt - Continue apixaban, clopidogrel, ASA, metoprolol. Hold imdur and lisinopril for now. - Cardiology consult # DM2 - TRANSLATOR/INTERPRETER glipizide, insulin - SSI Transfer to [place] assessment - There are currently no beds available for transfer consideration Medical records uploaded to [facility]. This [facility] RN will follow during this hospitalization. /riccardo/ Miya ESPINOZAA MSN senior financial analyst Irrigator Signed: 12/29/2022 12:38 Receipt Acknowledged By: 12/29/2022 13:52 /riccardo/ Lisa Alcantar RN [facility] 12/27/2022 ADDENDUM STATUS: COMPLETED [facility] Scanned Document - Addendum. Admit H[facility]P [facility] 12/27/22 SCANNED DOCUMENT SIGNATURE NOT REQUIRED Electronically Filed: 12/29/2022 by: Miya Jameson RN, MBA MSN senior financial analyst Irrigator 12/29/2022 ADDENDUM STATUS: COMPLETED Application Development Specialist will await discharge notification to f/u with . /riccardo/ Lisa Alcantar RN [facility] Signed: 12/29/2022 13:52 01/02/2023 ADDENDUM STATUS: COMPLETED CONTINUED STAY REVIEW Contact Date: 01/02/23 Date of Admit: 12/27/22 Method of Contact: [facility] Inpatient Level of Care Required: Acute Care MD Progress Note/Plan of Care 01/01/23: # Acute decompensated HFrEF Assessment: baseline creatinine ~ Prior EF 30%. Repeat ECHO with EF 10-20%. Compliance Mgr and l tacker involved in volume removal. Diuresed with Lasix drip and subsequently discontinued after felt to be euvolemic/hypotensive by advanced heart failure. Plans for RHC +/- viability study pending revascularization plans. Plan: - NPO for RHC today - Advanced HF following - continue Toprol - follow urine output and daily BMP - follow weight Discharge Planning: Anticipate DC on 01/02/23 Transfer to [place] assessment - There are not beds currently available for transfer consideration. /riccardo/ Miya Jameson RN, MBA MSN senior financial analyst Irrigator Signed: 01/02/2023 11:56 01/04/2023 ADDENDUM STATUS: COMPLETED CONTINUED STAY REVIEW Contact Date: 01/04/23 Date of Admit: 12/27/22 Method of Contact: [facility] Inpatient Level of Care Required: Acute Care MD Progress Note/Plan of Care 01/03/23: # Acute decompensated HFrEF - Add low dose ARB - Further GDMT as outpatient - No further plans at this time - ok to dc - continue Toprol # COVID-19 infection - Completed 3 days of remdesivir - enhanced iso through 01/07 (10 days from positive test) # Left ankle wound Assessment: notable bruising and blistering on LLE prior to admission. Does not appear warm nor infected. Plan: - WOC consultation Discharge Planning: anticipate DC 01/04/23 Transfer to [place] assessment - There are not beds currently available for transfer consideration. /riccardo/ Miya ESPINOZAA MSN senior financial analyst Irrigator Signed: 01/04/2023 08:19 01/08/2023 ADDENDUM STATUS: COMPLETED CONTINUED STAY REVIEW Contact Date: 01/08/23 Date of Admit: 12/27/22 Method of Contact: [facility] Inpatient Level of Care Required: Acute Care MD Progress Note/Plan of Care 01/07/23: Acute decompensated HFrEF - Added low dose ARB (with hold parameters) - Further GDMT as outpatient - No further plans at this time - ok to dc - continue Toprol (with hold parameters) Hypotension, resolved Dehydration Abdominal pain - MAP goal > 65 - Encourage PO intake - BP meds with hold parameters Presumed skin contaminant blood culture - Repeat BCx ordered Recent NSTEMI CAD History of CABG History of HTN - cont plavix - cont statin - Toprol 25mg qd and losartan 12.5mg qd (hold parameters in) Acute renal failure Hyperkalemia - resolved CKD II/III Persistent atrial fibrillation LADAN thrombus - apixaban COVID-19 infection - Completed 3 days of remdesivir - enhanced iso through 01/07 (10 days from positive test) DM2 with peripheral neuropathy Hyperglycemia - hold glipizide and metformin - endocrine managing - very high dose meal time coverage - lantus - endocrine to reconcile discharge insulin/diabetic meds (only remaining meds left on DC navigator) Left ankle wound - WOC consultation Discharge Planning: Expected Discharge Date: 01/08/2023 11:00 Discharge meds and orders mostly completed (minus diabetic meds for endocrine) Transfer to [place] assessment - There are not beds currently available for transfer consideration. /riccardo/ Miya Jameson RN LISA MSN senior financial analyst Irrigator Signed: 01/08/2023 08:53 01/10/2023 ADDENDUM STATUS: COMPLETED CLINICAL CARE COORDINATION INFORMATION Hospital Discharge note Hospital: [facility] Admit date: 12/27/22 Discharge date: 01/08/23 Level of care: Acute Care Discharge diagnosis: Acute decompensated HFrEF Disposition: [facility] Hospital records uploaded to [facility]. Please review for any additional follow-up needed. DC Summary not available at this time, will upload to [facility] when complete /nallely ESPINOZAA MSN senior financial analyst Irrigator Signed: 01/10/2023 13:35 Receipt Acknowledged By: 01/10/2023 20:40 /riccardo/ JIMENEZ CHESTER MD PHYSICIAN 01/11/2023 08:33 /riccardo/ Lisa Alcantar RN [facility] 01/10/2023 ADDENDUM STATUS: COMPLETED Phoned [place]. No answer. [employer]a compliant VM left that selling underwriter will call back at a later time. Left [place] contact #: [phone] /riccardo/ Lisa Alcantar RN [facility] Signed: 01/10/2023 13:47 01/11/2023 ADDENDUM STATUS: COMPLETED See Jan 11 CCC:Scheduling administration note and addenda for more f/u information /nallely Alcantar RN [facility] Signed: 01/11/2023 11:14 JIMENEZ CHESTER [facility] Jan 10, 2023 01:33 PM ADDENDUM: LOCAL TITLE: Addendum STANDARD TITLE: ADDENDUM DATE OF NOTE: JAN 10, 2023@13:33:37 ENTRY DATE: JAN 10, 2023@13:33:39 AUTHOR: MIYA JAMESON COSIGNER: URGENCY: STATUS: COMPLETED CLINICAL CARE COORDINATION INFORMATION Hospital Discharge note Hospital: [facility] Admit date: 12/27/22 Discharge date: 01/08/23 Level of care: Acute Care Discharge diagnosis: Acute decompensated HFrEF Disposition: [facility] Hospital records uploaded to [facility]. Please review for any additional follow-up needed. DC Summary not available at this time, will upload to [facility] when complete /riccardo/ Miya ESPINOZAA MSN senior financial analyst Irrigator Signed: 01/10/2023 13:35 Receipt Acknowledged By: 01/10/2023 20:40 /es/ JIMENEZ CHESTER MD PHYSICIAN 01/11/2023 08:33 /es/ Lisa Alcantar RN [facility] --- Original Document --- 12/27/22 [facility] PRESENTING CARE COORD PLAN NOTE: Emergency Notification Intake Date Presenting to the Facility: Dec Method of Contact: Notified from [employer] worklist Notification ID: [id number] [facility] Referral #: [facility] Name: Hospital: [facility], Address: City: [place] State: [place] Zip Code: Phone : [facility] Point of Contact: Name: [facility] Chief complaint: hyperkalemia and acute decompensated HFrE Primary Diagnosis: Disposition Admitted Route of Admission: Date of Admission: Dec Admitting Diagnosis: I50.9 Community Care Provider: Confirm Level of Care: Closed - Approved for 1703 /nallely GUAJARDO SPANISH PROFESSOR Signed: 12/28/2022 16:36 Receipt Acknowledged By: 12/29/2022 12:35 /riccardo/ Miya ESPINOZAA MSN senior financial analyst Irrigator 12/29/2022 ADDENDUM STATUS: COMPLETED Admitted to: [facility] Admission date: 12/27/22 Current level of care: Critical Care Chief complaint: hyperkalemia Diagnosis: Hyperkalemia Assessment/Plan: # Hyperkalemia # ALEX - Likely due to decompensated HFrEF, possible contribution from lisinopril - Hold manager office services lisinopril - Repeat K - Maintain map>65, avoid nephrotoxins - Nephrology consult if worsening # Recent NSTEMI # Acute decompensated HFrEF # LADAN thrombus # Afib # CAD # HTN - Prior EF 30%. TRANSLATOR/INTERPRETER apixaban, clopidogrel, imdur, lisinopril, metoprolol - Repeat TTE - Start heparin gtt - Continue apixaban, clopidogrel, ASA, metoprolol. Hold imdur and lisinopril for now. - Cardiology consult # DM2 - TRANSLATOR/INTERPRETER glipizide, insulin - SSI Transfer to [place] assessment - There are currently no beds available for transfer consideration Medical records uploaded to [facility]. This [facility] RN will follow during this hospitalization. /riccardo/ Miya ESPINOZAA MSN senior financial analyst Irrigator Signed: 12/29/2022 12:38 Receipt Acknowledged By: 12/29/2022 13:52 /riccardo/ Lisa Alcantar RN [facility] 12/27/2022 ADDENDUM STATUS: COMPLETED [facility] Scanned Document - Addendum. Admit [facility] 12/27/22 SCANNED DOCUMENT SIGNATURE NOT REQUIRED Electronically Filed: 12/29/2022 by: Miya ESPINOZAA MSN senior financial analyst Irrigator 12/29/2022 ADDENDUM STATUS: COMPLETED Application Development Specialist will await discharge notification to f/u with . /riccardo/ Lisa Alcantar RN [facility] Signed: 12/29/2022 13:52 01/02/2023 ADDENDUM STATUS: COMPLETED CONTINUED STAY REVIEW Contact Date: 01/02/23 Date of Admit: 12/27/22 Method of Contact: [facility] Inpatient Level of Care Required: Acute Care MD Progress Note/Plan of Care 01/01/23: # Acute decompensated HFrEF Assessment: baseline creatinine ~ Prior EF 30%. Repeat ECHO with EF 10-20%. Compliance Mgr and l tacker involved in volume removal. Diuresed with Lasix drip and subsequently discontinued after felt to be euvolemic/hypotensive by advanced heart failure. Plans for RHC +/- viability study pending revascularization plans. Plan: - NPO for RHC today - Advanced HF following - continue Toprol - follow urine output and daily BMP - follow weight Discharge Planning: Anticipate DC on 01/02/23 Transfer to [place] assessment - There are not beds currently available for transfer consideration. /nallely ESPINOZAA MSN senior financial analyst Irrigator Signed: 01/02/2023 11:56 01/04/2023 ADDENDUM STATUS: COMPLETED CONTINUED STAY REVIEW Contact Date: 01/04/23 Date of Admit: 12/27/22 Method of Contact: [facility] Inpatient Level of Care Required: Acute Care MD Progress Note/Plan of Care 01/03/23: # Acute decompensated HFrEF - Add low dose ARB - Further GDMT as outpatient - No further plans at this time - ok to dc - continue Toprol # COVID-19 infection - Completed 3 days of remdesivir - enhanced iso through 01/07 (10 days from positive test) # Left ankle wound Assessment: notable bruising and blistering on LLE prior to admission. Does not appear warm nor infected. Plan: - WOC consultation Discharge Planning: anticipate DC 01/04/23 Transfer to [place] assessment - There are not beds currently available for transfer consideration. /riccardo/ Miya ESPINOZAA MSN senior financial analyst Irrigator Signed: 01/04/2023 08:19 01/08/2023 ADDENDUM STATUS: COMPLETED CONTINUED STAY REVIEW Contact Date: 01/08/23 Date of Admit: 12/27/22 Method of Contact: [facility] Inpatient Level of Care Required: Acute Care Progress Note/Plan of Care 01/07/23: Acute decompensated HFrEF - Added low dose ARB (with hold parameters) - Further GDMT as outpatient - No further plans at this time - ok to dc - continue Toprol (with hold parameters) Hypotension, resolved Dehydration Abdominal pain - MAP goal > 65 - Encourage PO intake - BP meds with hold parameters Presumed skin contaminant blood culture - Repeat BCx ordered Recent NSTEMI CAD History of CABG History of HTN - cont plavix - cont statin - Toprol 25mg qd and losartan 12.5mg qd (hold parameters in) Acute renal failure Hyperkalemia - resolved CKD II/III Persistent atrial fibrillation LADAN thrombus - apixaban COVID-19 infection - Completed 3 days of remdesivir - enhanced iso through 01/07 (10 days from positive test) DM2 with peripheral neuropathy Hyperglycemia - hold glipizide and metformin - endocrine managing - very high dose meal time coverage - lantus - endocrine to reconcile discharge insulin/diabetic meds (only remaining meds left on DC navigator) Left ankle wound - WOC consultation Discharge Planning: Expected Discharge Date: 01/08/2023 11:00 Discharge meds and orders mostly completed (minus diabetic meds for endocrine) Transfer to [place] assessment - There are not beds currently available for transfer consideration. /riccardo/ Miya Jameson RN LISA MSN senior financial analyst Irrigator Signed: 01/08/2023 08:53 01/10/2023 ADDENDUM STATUS: COMPLETED Phoned [place]. No answer. Hippa compliant VM left that selling underwriter will call back at a later time. Left [place] contact #: [phone] /riccardo/ Lisa Alcantar RN [facility] Signed: 01/10/2023 13:47 01/10/2023 ADDENDUM STATUS: COMPLETED Please contact /care center to see how he is doing. Does he need any follow-up care with the PACT? Thanks /ricacrdo/ JIMENEZ CHESTER MD PHYSICIAN Signed: 01/10/2023 20:41 Receipt Acknowledged By: * AWAITING SIGNATURE * LISA ALCANTAR SARA R [facility] Dec 29, 2022 12:36 PM ADDENDUM: LOCAL TITLE: Addendum STANDARD TITLE: ADDENDUM DATE OF NOTE: DEC 29, 2022@12:36:07 ENTRY DATE: DEC 29, 2022@12:36:08 AUTHOR: MIYA JAMESON EXP COSIGNER: URGENCY: STATUS: COMPLETED Admitted to: [facility] Admission date: 12/27/22 Current level of care: Critical Care Chief complaint: hyperkalemia Diagnosis: Hyperkalemia Assessment/Plan: # Hyperkalemia # ALEX - Likely due to decompensated HFrEF, possible contribution from lisinopril - Hold manager office services lisinopril - Repeat K - Maintain map>65, avoid nephrotoxins - Nephrology consult if worsening # Recent NSTEMI # Acute decompensated HFrEF # LADAN thrombus # Afib # CAD # HTN - Prior EF 30%. TRANSLATOR/INTERPRETER apixaban, clopidogrel, imdur, lisinopril, metoprolol - Repeat TTE - Start heparin gtt - Continue apixaban, clopidogrel, ASA, metoprolol. Hold imdur and lisinopril for now. - Cardiology consult # DM2 - TRANSLATOR/INTERPRETER glipizide, insulin - SSI Transfer to [place] assessment - There are currently no beds available for transfer consideration Medical records uploaded to [facility]. This [facility] RN will follow [place] during this hospitalization. /riccardo/ Miya Jameson RN, MBA MSN senior financial analyst Irrigator Signed: 12/29/2022 12:38 Receipt Acknowledged By: 12/29/2022 13:52 /es/ Lisa Alcantar RN [facility] --- Original Document --- 12/27/22 [facility]F PRESENTING CARE COORD PLAN NOTE: Emergency Notification Intake Date Presenting to the Facility: Dec Method of Contact: Notified from [employer] worklist Notification ID: [id number] [facility] Referral #: [facility] Name: Hospital: [facility], Address: City: [place] State: [place] Zip Code: Phone : [facility] Point of Contact: Name: [facility] Chief complaint: hyperkalemia and acute decompensated HFrE Primary Diagnosis: Disposition Admitted Route of Admission: Date of Admission: Dec Admitting Diagnosis: I50.9 Community Care Provider: Confirm Level of Care: Closed - Approved for 1702 /riccardo/ CARLA GUAJARDO SPANISH PROFESSOR Signed: 12/28/2022 16:36 Receipt Acknowledged By: 12/29/2022 12:35 /riccardo/ Miya ESPINOZAA MSN senior financial analyst Irrigator 12/27/2022 ADDENDUM STATUS: COMPLETED [facility] Scanned Document - Addendum. Admit H&P [facility] 12/27/22 SCANNED DOCUMENT SIGNATURE NOT REQUIRED Electronically Filed: 12/29/2022 by: Miya ESPINOZAA MSN senior financial analyst Irrigator 12/29/2022 ADDENDUM STATUS: COMPLETED Application Development Specialist will await discharge notification to f/u with . /riccardo/ Lisa Alcantar RN [facility] Signed: 12/29/2022 13:52 MIYA JAMESON [facility] Dec 27, 2022 10:15 PM NONVA NOTE: LOCAL TITLE: [facility] SELF PRESENTING CARE COORD PLAN STANDARD TITLE: NONVA NOTE DATE OF NOTE: DEC 27, 2022@22:15 ENTRY DATE: DEC 28, 2022@16:29:29 AUTHOR: ACRLA GUAJARDO EXP COSIGNER: URGENCY: STATUS: COMPLETED [facility] S[facility]F PRESENTING CARE COORD PLAN NOTE Has ADDENDA Emergency Notification Intake Date Presenting to the Facility: Dec Method of Contact: Notified from [employer] worklist Notification ID: [id number] [facility] Referral #: [facility] Name: Hospital: [facility], Address: City: [place] State: [place] Zip Code: Phone : [facility] Point of Contact: Name: [facility] Chief complaint: hyperkalemia and acute decompensated HFrE Primary Diagnosis: Disposition Admitted Route of Admission: Date of Admission: Dec Admitting Diagnosis: I50.9 Community Care Provider: Confirm Level of Care: Closed - Approved for 1702 /riccardo/ CARLA GUAJARDO SPANISH PROFESSOR Signed: 12/28/2022 16:36 Receipt Acknowledged By: 12/29/2022 12:35 /riccardo/ Miya Jameson RN LISA MSN senior financial analyst Irrigator 12/29/2022 ADDENDUM STATUS: COMPLETED Admitted to: [facility] Admission date: 12/27/22 Current level of care: Critical Care Chief complaint: hyperkalemia Diagnosis: Hyperkalemia Assessment/Plan: # Hyperkalemia # ALEX - Likely due to decompensated HFrEF, possible contribution from lisinopril - Hold manager office services lisinopril - Repeat K - Maintain map>65, avoid nephrotoxins - Nephrology consult if worsening # Recent NSTEMI # Acute decompensated HFrEF # LADAN thrombus # Afib # CAD # HTN - Prior EF 30%. TRANSLATOR/INTERPRETER apixaban, clopidogrel, imdur, lisinopril, metoprolol - Repeat TTE - Start heparin gtt - Continue apixaban, clopidogrel, ASA, metoprolol. Hold imdur and lisinopril for now. - Cardiology consult # DM2 - TRANSLATOR/INTERPRETER glipizide, insulin - SSI Transfer to [place] assessment - There are currently no beds available for transfer consideration Medical records uploaded to [facility]. This [facility] RN will follow [place] during this hospitalization. /nallely Jameson RN, MBA MSN senior financial analyst Irrigator Signed: 12/29/2022 12:38 Receipt Acknowledged By: 12/29/2022 13:52 /riccardo/ Lisa Alcantar RN [facility] 12/27/2022 ADDENDUM STATUS: COMPLETED [facility] Scanned Document - Addendum. Admit [facility] 12/27/22 SCANNED DOCUMENT SIGNATURE NOT REQUIRED Electronically Filed: 12/29/2022 by: Miya Jameson RN, MBA MSN senior financial analyst Irrigator 12/29/2022 ADDENDUM STATUS: COMPLETED Application Development Specialist will await discharge notification to f/u with . /nallely Alcantar RN [facility] Signed: 12/29/2022 13:52 01/02/2023 ADDENDUM STATUS: COMPLETED CONTINUED STAY REVIEW Contact Date: 01/02/23 Date of Admit: 12/27/22 Method of Contact: [facility] Inpatient Level of Care Required: Acute Care MD Progress Note/Plan of Care 01/01/23: # Acute decompensated HFrEF Assessment: baseline creatinine ~ Prior EF 30%. Repeat ECHO with EF 10-20%. Compliance Mgr and l tacker involved in volume removal. Diuresed with Lasix drip and subsequently discontinued after felt to be euvolemic/hypotensive by advanced heart failure. Plans for RHC +/- viability study pending revascularization plans. Plan: - NPO for RHC today - Advanced HF following - continue Toprol - follow urine output and daily BMP - follow weight Discharge Planning: Anticipate DC on 01/02/23 Transfer to [place] assessment - There are not beds currently available for transfer consideration. /nallely ESPINOZAA MSN senior financial analyst Irrigator Signed: 01/02/2023 11:56 01/04/2023 ADDENDUM STATUS: COMPLETED CONTINUED STAY REVIEW Contact Date: 01/04/23 Date of Admit: 12/27/22 Method of Contact: [facility] Inpatient Level of Care Required: Acute Care MD Progress Note/Plan of Care 01/03/23: # Acute decompensated HFrEF - Add low dose ARB - Further GDMT as outpatient - No further plans at this time - ok to dc - continue Toprol # COVID-19 infection - Completed 3 days of remdesivir - enhanced iso through 01/07 (10 days from positive test) # Left ankle wound Assessment: notable bruising and blistering on LLE prior to admission. Does not appear warm nor infected. Plan: - WOC consultation Discharge Planning: anticipate DC 01/04/23 Transfer to [place] assessment - There are not beds currently available for transfer consideration. /riccardo/ Miya ESPINOZAA MSN senior financial analyst Irrigator Signed: 01/04/2023 08:19 01/08/2023 ADDENDUM STATUS: COMPLETED CONTINUED STAY REVIEW Contact Date: 01/08/23 Date of Admit: 12/27/22 Method of Contact: [facility] Inpatient Level of Care Required: Acute Care MD Progress Note/Plan of Care 01/07/23: Acute decompensated HFrEF - Added low dose ARB (with hold parameters) - Further GDMT as outpatient - No further plans at this time - ok to dc - continue Toprol (with hold parameters) Hypotension, resolved Dehydration Abdominal pain - MAP goal > 65 - Encourage PO intake - BP meds with hold parameters Presumed skin contaminant blood culture - Repeat BCx ordered Recent NSTEMI CAD History of CABG History of HTN - cont plavix - cont statin - Toprol 25mg qd and losartan 12.5mg qd (hold parameters in) Acute renal failure Hyperkalemia - resolved CKD II/III Persistent atrial fibrillation LADAN thrombus - apixaban COVID-19 infection - Completed 3 days of remdesivir - enhanced iso through 01/07 (10 days from positive test) DM2 with peripheral neuropathy Hyperglycemia - hold glipizide and metformin - endocrine managing - very high dose meal time coverage - lantus - endocrine to reconcile discharge insulin/diabetic meds (only remaining meds left on DC navigator) Left ankle wound - WOC consultation Discharge Planning: Expected Discharge Date: 01/08/2023 11:00 Discharge meds and orders mostly completed (minus diabetic meds for endocrine) Transfer to [place] assessment - There are not beds currently available for transfer consideration. /riccardo/ Miya Jameson RN LISA MSN senior financial analyst Irrigator Signed: 01/08/2023 08:53 01/10/2023 ADDENDUM STATUS: COMPLETED CLINICAL CARE COORDINATION INFORMATION Hospital Discharge note Hospital: [facility] Admit date: 12/27/22 Discharge date: 01/08/23 Level of care: Acute Care Discharge diagnosis: Acute decompensated HFrEF Disposition: [facility] Hospital records uploaded to [facility]. Please review for any additional follow-up needed. DC Summary not available at this time, will upload to [facility] when complete /nallely ESPINOZAA MSN senior financial analyst Irrigator Signed: 01/10/2023 13:35 Receipt Acknowledged By: 01/10/2023 20:40 /riccardo/ JIMENEZ CHESTER MD PHYSICIAN 01/11/2023 08:33 /riccardo/ Lisa Alcantar RN [facility] 01/10/2023 ADDENDUM STATUS: COMPLETED Phoned [place]. No answer. Hippa compliant VM left that selling underwriter will call back at a later time. Left [place] contact #: [phone] /riccardo/ Lisa Alcantar RN [facility] Signed: 01/10/2023 13:47 01/10/2023 ADDENDUM STATUS: COMPLETED Please contact /care center to see how he is doing. Does he need any follow-up care with the PACT? Thanks /riccardo/ JIMENEZ CHESTER MD PHYSICIAN Signed: 01/10/2023 20:41 Receipt Acknowledged By: 01/11/2023 11:12 /riccardo/ Lisa Alcantar RN [facility] 01/11/2023 ADDENDUM STATUS: COMPLETED See Jan 11 CCC:Scheduling administration note and addenda for more f/u information /riccardo/ Lisa Alcantar RN [facility] Signed: 01/11/2023 11:14 01/12/2023 ADDENDUM STATUS: COMPLETED Full DC Summary remains unavailable in [facility] /nallely ESPINOZAA MSN senior financial analyst Irrigator Signed: 01/12/2023 10:32 [facility]
--- OUTSIDE RECORDS SUMMARY | 2023-08-22 09:01 | XMS_ITS | Encounter Summary ---
Author Name Department of Vetera ns Affairs Organization [facility] of [facility] Affairs Address [address] [place] [address] Support Name Relationship Address Phone SHELLIE CASAS [...] Cherry's Name Patient's Relationship to Policy Cherry [facility] (WNR) MEDICARE ADVANTAGE [facility] (WNR) May 14, 2020 [id number] [phone] PITER CASAS ERD PATIENT Selected Encounter This section includes the information on record at [place] for the Encounter. Date/Time Encounter Type Encounter Description Reason Provider Source Nov 23, 2022 02:30 PM GAIT TRAINING THERAPY PHYSICAL THERAPY ICD-10-CM R26.89 Other abnormalities of gait and mobility SALAZAR JAMESON [facility] Encounter Template Text not used by [place] Assessments - Encounter Diagnoses This section includes the primary and secondary diagnoses documented for the Encounter. Date/Time Primary/Secondary Diagnosis Diagnosis Name Provider Source Nov 23, 2022 03:12 PM PRIMARY Other abnormalities of gait and mobility CINTHIA JAMESON ([facility]) Plan of Treatment: Future Appointments (+ 6 months) and Future Tests (+/- 45 days) The Plan of Treatment section includes future care activities for the patient from all [facility] treatmentfacilities. This section includes future appointments and future orders which are active, pending or scheduled. Future Appointments This section includes appointments that were scheduled to occur 6 months from the date of the Encounter, up to a maximum of 20 appointments. The data comes from all [place] treatment facilities. Appointment Date/Time Appointment Type Appointme nt Facility Name Dec 11, 2022 12:42 PM [facility]ORY [facility] NONE [place] [facility] Dec 28, 2022 04:27 PM AMBUL[facility]ORY - NONE [place] [facility] Jan 22, 2023 07:00 AM AM[facility]ORY [facility] [place]ONE [place] [facility] Jan 22, 2023 07:01 AM [facility] - [facility]ONE [place] [facility] Jan 23, 2023 01:00 PM AMBULATORY - [facility]IC[facility] Feb 15, 2023 12:45 PM AM[facility]ORY - NONE [place] [facility] Feb 20, 2023 07:01 AM [facility]ONE [place] [facility] Feb 23, 2023 11:00 AM AMBULATORY - MEDICINE [facility] ([facility]) Mar 09, 2023 08:41 PM [facility]ORY [facility] [place]ONE [place] [facility] Apr 12, 2023 11:56 PM [facility] - [facility]ONE [place] [facility] Apr 16, 2023 09:26 PM [facility]ORY - [facility]ONE [place] May 01, 2023 06:28 PM [facility] - [facility]ONE [place] Lab Results: +/- 30 days of [...] Result - Unit Interpretation Reference Range Comment Nov 23, 2022 12:10 PM [facility] ([facility]) MICROALBUMIN/CREATININE RATIO URINE Specimen Type: URINE No comment entered. Ordering Provider: JIMENEZ CHESTER Report Released Date/Time: Nov 23, 2022 11:58 AM Reporting Lab: [facility] [id number] Performing Lab: [facility] [id number] CREATININE,UR RANDOM 132.8 58.0-161.0 ALB/CREAT RATIO,UR 28.0 See_Comment MICROALBUMIN,UR 37.2 H See_Comment Nov 23, 2022 12:09 PM [facility] ([facility]) LIPID PANEL,NON-FASTING Specimen Type: PLASMA No comment entered. Ordering Provider: JIMENEZ CHESTER Report Released Date/Time: Nov 23, 2022 11:58 AM Reporting Lab: [facility] [id number] Performing Lab: [facility] [id number] CHOLESTEROL 130 See_Comment .HDL 39 L See_Comment LDL CALCULATION 73 See_Comment VLDL CALCULATION 18 See_Comment NON HDL CHOLESTEROL 91 See_Comment TRIG(NON FASTING) 92 See_Comment Nov 23, 2022 12:09 PM [facility] ([facility]) CBC Specimen Type: BLOOD No comment entered. Ordering Provider: JIMENEZ CHESTER Report Released Date/Time: Nov 23, 2022 11:58 AM Reporting Lab: [facility] [id number] Performing Lab: [facility] [id number] WBC 10.80 4.0-11.0 RBC 3.87 L 4.6-6.2 HGB 12.1 L 13.5-17.9 HCT 37.5 L 41-54 MCV 96.9 80-100 MCH 31.3 27-33 MCHC 32.3 32.0-37.5 PLT 293 150-400 MPV 10.3 7.4-10.4 RDW 13.2 11.5-14.5 Nov 23, 2022 12:09 PM [facility] ([facility]) TSH W/REFLEX TO FREE T4 Specimen Type: PLASMA No comment entered. Ordering Provider: JIMENEZ CHESTER Report Released Date/Time: Nov 23, 2022 11:58 AM Reporting Lab: [facility] [phone] Performing Lab: [facility] [phone] TSH 4.59 0.35-4.94 Nov 23, 2022 12:09 PM [facility] ([facility]) COMPREHENSIVE METABOLIC PANEL+MG Specimen Type: PLASMA No comment entered. Ordering Provider: JIMENEZ CHESTER Report Released Date/Time: Nov 23, 2022 11:58 AM Reporting Lab: [facility] [phone] Performing Lab: [facility] [phone] CREATININE 1.2 0.7-1.2 UREA NITROGEN 34 H 8-26 GLUCOSE 54 L 70-100 SODIUM 143 136-145 POTASSIUM 4.4 3.5-5.1 CHLORIDE 107 98-107 CO2 23 22-29 CALCIUM 9.7 8.4-10.2 PROTEIN,TOTAL 7.2 6.0-8.3 ALBUMIN 4.1 3.5-5.2 BILIRUBIN, TOTAL 0.5 0.2-1.2 MAGNESIUM 1.4 L 1.6-2.6 ANION GAP 13 5-15 ALKALINE PHOSPHATASE 87 40-150 ALT/SGPT 28 See_Comment AST/SGOT 33 See_Comment .CREAT EGFR(CKD-EPI) 61 See_Comment Nov 23, 2022 12:09 PM [facility]) HEMOGLOBIN A1C Specimen Type: BLOOD Comment: Values obtained from A1C measurements can vary. For typical A1C assays, a reported value of 7.0 could actually be between 6.7 and 7.3 if measured by a reference method. A reported value of 9.0 could actually be between 8.7 and 9.3. Ref: http://www.ngs p.org/CAPdata. asp Ordering Provider: JIMENEZ CHESTER Report Released Date/Time: Nov 23, 2022 11:58 AM Reporting Lab: [facility] [id number] Performing Lab: [facility] [phone] HEMOGLOBIN A1C 7.4 H 4.0-6.0 Vital Signs: All taken on the encounter date This section contains inpatient and outpatient Vital Signs collected on the date of the Encounter. Date/Time Temperature Pulse Blood Pressure Respiratory Rate SP02 Pain Height Weight Body Mass Index Source Nov 23, 2022 11:13 AM 97.7 F 59 /min 138/76 mm[Hg] 18 /min 98 % 0 69.5 in 186 lb 27 [facility] ([facility]) Social History: Smoking Status (Most current) and Tobacco Use (All prior to encounter date) This section includes the most current, and the historical, smoking and tobacco- related health factors from the [place] facility where the Encounter took place. Current Smoking Status This section includes the most current smoking, or tobacco-related health factor, from the [place] facility where the Encounter took place. Date/Time Current Smoking Status Comment Federico armenta Nov 23, 2022 11:00 AM [place]-TOBACCO FORMER USER [facility] ([facility]) Tobacco Use History This section includes a history of the smoking, or tobacco-related health factors, that were collected on or before the date of the Encounter. The data comes from the [place] facility where the Encounter took place. Date/Time Smoking Status/Tobacco Use Comment F acility Nov 23, 2022 11:00 AM VA-TOBACCO QUIT 15 YRS OR MORE [facility] ([facility]) Nov 29, 2021 10:00 AM VA-TOBACCO FORMER USER [facility] ([facility]) Nov 29, 2021 10:00 AM VA-TOBACCO QUIT 15 YRS OR MORE [facility] ([facility]) Oct 21, 2020 10:30 AM VA-TOBACCO FORMER USER [facility] ([facility]) Oct 21, 2020 10:30 AM VA-TOBACCO QUIT 15 YRS OR MORE [facility] ([facility]) Encounter Notes: All associated encounter notes This section contains the clinical notes associated to the Encounter. Date/Time Encounter Note(s) Provider Source Nov 23, 2022 02:40 PM PHYSICAL THERAPY I NITIAL EVALUATION NOTE: LOCAL TITLE: PT-EVALUATION NOTE STANDARD TITLE: PHYSICAL THERAPY INITIAL EVALUATION NOTE DATE OF NOTE: NOV 23, 2022@14:40 ENTRY DATE: NOV 23, 2022@14:40:26 AUTHOR: CINTHIA JAMESON COSIGNER: URGENCY: STATUS: COMPLETED Brief Physical Therapy Evaluation for Equipment Provision Dx: other abnormalities of gait/mobility Tx: PT Eval Low Comp 15', Gait Training 15' Active problems - Computerized Problem List is the source for the followin. CAD - Coronary Artery Disease ([facility] [id number]) 2. Diabetes Mellitus Type 2 ([facility] [id number]) 3. HTN - Hypertension ([facility] [id number]) 4. Peripheral neuropathy due to type 2 diabetes mellitus 5. Long-term current use of insulin 6. Hyperlipidemia ([facility] [id number]) SUBJECTIVE: Pt is a 82yo [place] presenting to PT to be evaluated for a rollator/walker. Pt states he has been having more difficulty with endurance and stability on his feet with walking. Currently walking independently with no AD, but has to frequently furniture walk to maintain balance, or take frequent seated rest breaks. Also has peripheral neuropathy secondary to DM, so sensation within is feet is not the best. Weight/Height for DME purposes: 186 lb [84.37 kg] (11/23/2022 11:13) 69.5 in [176.5 cm] (11/23/2022 11:13) Pt Goal: Obtain a rollator walker for stability during ambulation Pain: Mild pain in the right foot Falls: Couple near falls where dk caught his balance Home Environment: Single story handicap accessible home with no steps to enter. Prior Level of Function: Independent with all activities. Red Flags: History of skin cancer thats in remission. Denies any UE or LE progressive weakness, unexplained weight loss, loss of bowel/bladder control, pain with rest, fevers, chills, infections. OBJECTIVE: Vitals: seated, rest, L UE, machine BP: 144/76 mmHg HR: 60 bpm O2 sat: 100% OBSERVATION: Mild antalgic gait, mild swaying and lateral deviations GAIT SPEED: 0.62 m/s (measure over 10 feet or 5 ceiling tiles; convert to m/s {10/sec*0.305}) < 0.4 m/s were more likely to be household ambulator 0.4 - 0.8 m/s limited community ambulator > 0.8 m/s community ambulator FUNCTIONAL STRENGTH SCREEN: *30-Second Chair Stand Test: 7 reps Normative Repetitions (Alexus & Fidel, 2013) Age Men 80-84 10-15 BALANCE: Four Stage Balance Test: (older adults unable to maintain Tandem 10' are at increased risk for falls) Romber seconds Modified Tandem: 10 seconds Tandem: 5 seconds B before LOB Single leg Stance: Unable Education and demonstration provided regarding proper rollator use including ambulation, brakes, curb assist, sitting on rollator to rest with rollator against stationary object, transfers and folding to load into vehicle. -Pt independently ambulating 50 ft with rollator -Pt independently manipulating brakes -Pt independently using curb assist -Pt independently transferring with device -Pt independently folding device -Pt instructed in adjusting rollator once received from prosthetics ASSESSMENT/PLAN: Pt appropriate for rollator to improve safety and tolerance for mobility. Pt able to ambulate using rollator independently. Consult to [facility] for item. Pt goal met and no further needs identified requiring skilled PT; discharge from PT at this time. CLINICAL PRESENTATION: stable Patient indicates readiness to learn, verbalizes understanding, agreement and satisfaction with the treatment plan. Denies further questions. GOAL: 1. Pt will safely ambulate with rollator walker to meet pt goal of increasing tolerated walking distance/walking more safely within 1 visits. GOAL MET. /riccardo/ CINTHIA JAMESON Physical Therapist Signed: 11/23/2022 15:12 CINTHIA JAMESON ([facility])
--- OUTSIDE RECORDS SUMMARY | 2023-08-22 09:01 | XMS_ITS | Encounter Summary ---
Author Name Department of Vetera Affairs Organization Department of Vetera Affairs Address [address] [place] [address] Support Name Relationship Address Phone SHELLIE CASAS Next of Kin [id number] [place] [address] SHELLIE CASAS Emergency Contact [phone] [...] Cherry's Name Patient's Relationship to Policy Cherry [facility] (WNR) MEDICARE ADVANTAGE [facility] (WNR) May 14, 2020 [id number] [phone] PITER CASAS ERD PATIENT Selected Encounter This section includes the information on record at [place] for the Encounter. Date/Time Encounter Type Encounter Description Reason Pro vider Source Jul 12, 2023 12:00 PM Outpatient Encounter TELEPHONE TRIAGE IHE Encounter Template Text not used by [place] Plan of Treatment: Future Appointments (+ 6 months) and Future Tests (+/- 45 days) The Plan of Treatment section includes future care activities for the patient from all [place] treatmentfacilities. This section includes future appointments and future orders which are active, pending or scheduled. Future Appointments This section includes appointments that were scheduled to occur 6 months from the date of the Encounter, up to a maximum of 20 appointments. The data comes from all [place] treatment facilities. Appointment Date/Time Appointment Type Appointme nt Facility Name Aug 10, 2023 10:45 AM AMBULATORY - SURGERY [facility] Encounter Notes: All associated encounter notes This section contains the clinical notes associated to the Encounter. Date/Time Encounter Note(s) Provider Source Jul 12, 2023 12:00 PM NONVA CONSULT: LOCAL TITLE: COMMUNITY CARE CONSULT RESULT DS ROUTINE AUD STANDARD TITLE: NONVA CONSULT DATE OF NOTE: JUL 12, 2023@12:00 ENTRY DATE: JUL 13, 2023@14:34:59 AUTHOR: ARACELI TORRE EXP COSIGNER: URGENCY: STATUS: COMPLETED [facility] - Scanned Document [facility] [address] [place] [address] PH: [phone] FX: [phone] Request for additional Audiology visits received. Authorization#: [id number] valid from 2022-09-20 through 2023-05-18 SCANNED DOCUMENT SIGNATURE NOT REQUIRED Electronically Filed: 07/13/2023 by: Araceli Torre RN, BSN, [facility] epic manager Innovation Manager ARACELI TORRE [facility]
--- OUTSIDE RECORDS SUMMARY | 2023-08-22 09:01 | XMS_ITS | Encounter Summary ---
Author Name [facility] Organization [facility] Address [address] [place] [address] Support Name Relationship Address Phone SHELLIE CASAS [...] Cherry's Name Patient's Relationship to Policy Cherry [facility] (WNR) MEDICARE ADVANTAGE [facility] (WNR) May 14, 2020 [id number] [phone] PITER CASAS ERD PATIENT Selected Encounter This section includes the information on record at [place] for the Encounter. Date/Time Encounter Type Encounter Description Reason Pro vider Source Feb 20, 2023 02:27 PM Outpatient Encounter [facility] Encounter Template Text not used by [place] Plan of Treatment: Future Appointments (+ 6 months) and Future Tests (+/- 45 days) The Plan of Treatment section includes future care activities for the patient from all [place] treatmentfacilities. This section includes future appointments and future orders which are active, pending or scheduled. Future Appointments This section includes appointments that were scheduled to occur 6 months from the date of the Encounter, up to a maximum of 20 appointments. The data comes from all [place] treatment facilities. Appointment Date/Time Appointment Type Appointme nt Facility Name Feb 23, 2023 11:00 AM AMBULATORY - MEDICINE [facility] ([facility]) Mar 09, 2023 08:41 PM [facility] [place] NONE [facility] Apr 12, 2023 11:56 PM [facility] - NONE [place] [facility] Apr 16, 2023 09:26 PM [facility] - NONE [place] [facility] May 01, 2023 06:28 PM [facility] - NONE [place] [facility] Aug 10, 2023 10:45 AM AMBULATORY - SURGERY [facility] Lab Results: +/- 30 days of the encounter This section includes the Chemistry and Hematology Lab Results on record with [place] for the patient. Radiology Reports and Pathology Reports are provided separately, in subsequent sections. Lab Results This section contains the Chemistry/Hematology Results that were resulted 30 days before or 30 daysafter the date of the Encounter. Date/Time Source Result Type Result - Unit Interpretation Reference Range Comment Jan 23, 2023 02:14 PM [facility] ([facility]) BASIC METABOLIC PANEL+MG Specimen Type: PLASMA No comment entered. Ordering Provider: JIMENEZ CHESTER Report Released Date/Time: Jan 23, 2023 02:00 PM Reporting Lab: [facility] [id number] Performing Lab: [facility] [id number] CREATININE 1.2 0.7-1.2 UREA NITROGEN 35 H 8-26 GLUCOSE 239 H 70-100 SODIUM 140 136-145 POTASSIUM 5.1 3.5-5.1 CHLORIDE 109 H 98-107 CO2 21 L 22-29 CALCIUM 9.4 8.4-10.2 MAGNESIUM 1.7 1.6-2.6 ANION GAP 10 5-15 .CREAT EGFR(CKD-EPI) 61 >60 Jan 23, 2023 02:14 PM [facility] ([facility]) BNP Specimen Type: PLASMA No comment entered. Ordering Provider: JIMENEZ CHESTER Report Released Date/Time: Jan 23, 2023 02:00 PM Reporting Lab: [facility] [id number] Performing Lab: [facility] [id number] BNP 1549 H <99 Encounter Notes: All associated encounter notes This section contains the clinical notes associated to the Encounter. Date/Time Encounter Note(s) Provider Source Feb 20, 2023 02:27 PM PHARMACY NOTE: LOCAL TITLE: PHARMACY NON IN CARE MEDICATIONS STANDARD TITLE: PHARMACY NOTE DATE OF NOTE: FEB 20, 2023@14:27 ENTRY DATE: FEB 20, 2023@14:27:32 AUTHOR: YELITZA CALVIN EXP COSIGNER: URGENCY: STATUS: COMPLETED [facility] RECEIVED [facility] Provider: Brenda Hart Date RX received: Feb Prescription request REDIRECTED via FAX to [facility] to submit a Prosthetic consult eRx Prescription Information: Heel Protection Pad Skil-Care ultrasoft one size fits most SIG: Wear daily on both feet to protect heels Quantity:2 Refills: 1 /riccardo/ YELITZA CALVIN PharmD CLINICAL PHARMACIST Signed: 02/20/2023 14:33 Receipt Acknowledged By: 02/21/2023 09:12 /riccardo/ Araceli Cottrell RN, BSN, [facility] life skills specialist Veterinary Medical Officer YELITZA CALVIN [facility]
--- OUTSIDE RECORDS SUMMARY | 2023-08-22 09:01 | XMS_ITS | Encounter Summary ---
Author Name [facility] Organization [facility] Address [address] [place] [address] Support Name Relationship Address Phone SHELLIE CASAS Next of Kin [address] [address] SHELLIE CASAS Emergency Contact [address] [address] Insurance [...] Cherry's Name Patient's Relationship to Policy Cherry [facility] (WNR) MEDICARE ADVANTAGE [facility] (WNR) May 14, 2020 [id number] [phone] PITER CASAS ERD PATIENT Selected Encounter This section includes the information on record at [place] for the Encounter. Date/Time Encounter Type Encounter Description Reason Provider Source Nov 23, 2022 11:00 AM OFFICE O/P EST MOD 30-39 MIN PRIMARY CARE/MEDICINE ICD-10-CM Z00.00 Encntr for general adult medical exam w/o abnormal findings JIMENEZ CHESTER [facility] Encounter Template Text not used by [place] Assessments - Encounter Diagnoses This section includes the primary and secondary diagnoses documented for the Encounter. 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 ang pctrs JIMENEZ CHESTER ([facility]) Nov 23, 2022 08:29 PM SECONDARY Essential (primary) hypertension JIMENEZ CHESTER ([facility]) Nov 23, 2022 08:29 PM SECONDARY Hyperlipidemia, unspecified JIMENEZ CHESTER ([facility]) Nov 23, 2022 08:29 PM SECONDARY custodial (current) use of insulin JIMENEZ CHESTER ([facility]) Nov 23, 2022 08:29 PM SECONDARY Type 2 diabetes mellitus with diabetic polyneuropathy JIMENEZ CHESTER ([facility]) Nov 23, 2022 08:29 PM SECONDARY Type 2 diabetes mellitus without complications JIMENEZ CHESTER [place] ([facility]) Plan of Treatment: Future Appointments (+ 6 months) and Future Tests (+/- 45 days) The Plan of Treatment section includes future care activities for the patient from all [place] treatmentcilities. This section includes future appointments and future orders which are active, pending or scheduled. Future Appointments This section includes appointments that were scheduled to occur 6 months from the date of the Encounter, up to a maximum of 20 appointments. The data comes from all [place] treatment facilities. Appointment Date/Time Appointment Type Appointme nt Facility Name Dec 11, 2022 12:42 PM AMB[facility]ORY - NONE [facility] Dec 28, 2022 04:27 PM AMBULATORY - NONE [facility] Jan 22, 2023 07:00 AM AMBULATORY - NONE [facility] Jan 22, 2023 07:01 AM AMBULATORY - NONE [facility] Jan 23, 2023 01:00 PM AMBULATORY - MEDICINE [facility] ([facility] Feb 15, 2023 12:45 PM AMBULATORY - NONE [facility] Feb 20, 2023 07:01 AM AMBULATORY - NONE [facility] Feb 23, 2023 11:00 AM AMBULATORY - MEDICINE [facility] ([facility]) Mar 09, 2023 08:41 PM AMBULATORY - NONE [facility] Apr 12, 2023 11:56 PM AMBULATORY - NONE [facility] Apr 16, 2023 09:26 PM AMBULATORY - NONE [facility] May 01, 2023 06:28 PM AMBULATORY - NONE [facility] Lab Results: +/- 30 days of the encounter This section includes the Chemistry and Hematology Lab Results on record with NM for the patient. Radiology Reports and Pathology Reports are provided separately, in subsequent sections. Lab Results This section contains the Chemistry/Hematology Results that were resulted 30 days before or 30 daysafter the date of the Encounter. Date/Time Source Result Type Result - Unit Interpretation Reference Range Comment Nov 23, 2022 12:10 PM [facility] ([facility]) MICROALBUMIN/CREATININE RATIO URINE Specimen Type: URINE No comment entered. Ordering Provider: JIMENEZ CHESTER Report Released Date/Time: Nov 23, 2022 11:58 AM Reporting Lab: [facility] [id number] Performing Lab: [facility] [id number] CREATININE,UR RANDOM 132.8 58.0-161.0 ALB/CREAT RATIO,UR 28.0 See_Comment MICROALBUMIN,UR 37.2 H See_Comment Nov 23, 2022 12:09 PM [place] ([facility]) LIPID PANEL,NON-FASTING Specimen Type: PLASMA No comment entered. Ordering Provider: JIMENEZ CHESTER Report Released Date/Time: Nov 23, 2022 11:58 AM Reporting Lab: [facility] [id number] Performing Lab: [facility] [id number] CHOLESTEROL 130 See_Comment .HDL 39 L See_Comment LDL CALCULATION 73 See_Comment VLDL CALCULATION 18 See_Comment NON HDL CHOLESTEROL 91 See_Comment TRIG(NON FASTING) 92 See_Comment Nov 23, 2022 12:09 PM [place] ([facility]) CBC Specimen Type: BLOOD No comment entered. Ordering Provider: JIMENEZ CHESTER Report Released Date/Time: Nov 23, 2022 11:58 AM Reporting Lab: [facility] [id number] Performing Lab: [facility] [id number] WBC 10.80 4.0-11.0 RBC 3.87 L 4.6-6.2 HGB 12.1 L 13.5-17.9 HCT 37.5 L 41-54 MCV 96.9 80-100 MCH 31.3 27-33 MCHC 32.3 32.0-37.5 PLT 293 150-400 MPV 10.3 7.4-10.4 RDW 13.2 11.5-14.5 Nov 23, 2022 12:09 PM [place] ([facility]) TSH W/REFLEX TO FREE T4 Specimen Type: PLASMA No comment entered. Ordering Provider: JIMENEZ CHESTER Report Released Date/Time: Nov 23, 2022 11:58 AM Reporting Lab: [facility] [id number] Performing Lab: [facility] [id number] TSH 4.59 0.35-4.94 Nov 23, 2022 12:09 PM [facility]) COMPREHENSIVE METABOLIC PANEL+MG Specimen Type: PLASMA No comment entered. Ordering Provider: JIMENEZ CHESTER Report Released Date/Time: Nov 23, 2022 11:58 AM Reporting Lab: [facility] [phone] Performing Lab: [facility] [phone] CREATININE 1.2 0.7-1.2 UREA NITROGEN 34 H [...] 61 See_Comment Nov 23, 2022 12:09 PM [place] ([facility]) HEMOGLOBIN A1C Specimen Type: BLOOD Comment: [...] Lab: [facility] [id number] Performing Lab: [facility] [phone] HEMOGLOBIN A1C 7.4 H 4.0-6.0 Vital Signs: [...] % 0 69.5 in 186 lb 27 [facility] Social History: Smoking Status (Most current) and Tobacco Use (All prior to encounter date) This section includes the most current, and the historical, smoking and tobacco- related health factors from the NM facility where the Encounter took place. Current Smoking Status This section includes the most current smoking, or tobacco-related health factor, from the NM facility where the Encounter took place. Date/Time Current Smoking Status Comment Facil ity Nov 23, 2022 11:00 AM VA-TOBACCO FORMER USER [facility] ([facility]) Tobacco Use History This section includes a history of the smoking, or tobacco-related health factors, that were collected on or before the date of the Encounter. The data comes from the [place] facility where the Encounter took place. Date/Time Smoking Status/Tobacco Use Comment F acility Nov 23, 2022 11:00 AM VA-TOBACCO QUIT 15 YRS OR MORE [facility] ([facility]) Nov 29, 2021 10:00 AM VA-TOBACCO FORMER USER [place] ([facility]) Nov 29, 2021 10:00 AM VA-TOBACCO QUIT 15 YRS OR MORE [place] ([facility]) Oct 21, 2020 10:30 AM VA-TOBACCO FORMER USER [facility] ([facility]) Oct 21, 2020 10:30 AM VA-TOBACCO QUIT 15 YRS OR MORE [facility] ([facility]) Encounter Notes: All associated encounter notes This section contains the clinical notes associated to the Encounter. Date/Time Encounter Note(s) Provider Source Nov 24, 2022 12:06 PM LETTERS: LOCAL TITLE: FOLLOW UP RESULTS LETTER STANDARD TITLE: LETTERS DATE OF NOTE: NOV 24, 2022@12:06 ENTRY DATE: NOV 24, 2022@12:07:04 AUTHOR: JIMENEZ CHESTER EXP COSIGNER: URGENCY: STATUS: COMPLETED [facility] [address] [place] [address] Nov JUNG CASAS [address] [facility] [address] Dear [place]: I am writing to inform you of the results of the tests you had done at the [facility]. The tests below were performed and are satisfactory unless otherwise noted. - Cholesterol Tests (HDL = good and LDL = bad) HDL 39 L (11/23/22) (prefer more than 39) - Complete Blood Count (red/white blood cell counts and platelets) Hemoglobin: HGB 12.1 L (11/23/22) (normal Male is 13.5-17.9) Hematocrit: HCT 37.5 L (11/23/22) (normal Male is 41-54) - Electrolytes including sodium and potassium UREA NITROGEN 34 H (11/23/22) (normal Male is 8-26) CREATININE 1.2 (11/23/22) (normal Male is 0.7-1.2) GLUCOSE 54 L (11/23/22) (normal is 70-105) - Glycosylated Hemoglobin (good diabetic control if less than 7.0) HEMOGLOBIN A1C 7.4 H (11/23/22) (normal range is 4.0-6.0) Comments: I have reviewed your most recent test results. Most of your labs are in the normal range. Please refer to the automated letter that you will receive from [facility] for a full set of labs. Your HDL (good) cholesterol is slightly below the normal range but the rest of your cholesterol panel is normal. Continue your atorvastatin 80mg 1 pill daily. Your urea nitrogen (kidney function test) is slightly elevated. This can be an indicator that you might be mildly dehydrated. I would recommend trying to increase your water intake by about 20 ounces per day. Your glucose (blood sugar) was slightly low on this current blood test and your hemoglobin A1c was about the same as seen at [facility] in the last 6 months. No medication changes are needed at this time. We will plan to see you back in the office next year. I would recommend a healthy diet rich in fruits, vegetables, lean meats and low in processed foods. Try to get some exercise 4 to 5 days per week as tolerated. Work on maintaining a healthy weight. If you have any further questions or problems, please contact our nursing staff or me at the following number: [phone] ([facility] [place]) Sincerely, JIMENEZ CHESTER MD PHYSICIAN JIMENEZ CHESTER ([facility]) Nov 23, 2022 11:27 AM ADVANCE DIRECTIVE: LOCAL TITLE: AD NOTIFICATION AND SCREENING STANDARD TITLE: ADVANCE DIRECTIVE DATE OF NOTE: NOV 23, 2022@11:27 ENTRY DATE: NOV 23, 2022@11:27:07 AUTHOR: SHONDA DALAL EXP COSIGNER: URGENCY: STATUS: COMPLETED ADVANCE DIRECTIVE NOTIFICATION: Patient was given written notification of the following rights: 1. Accept or refuse any medical treatment. 2. Complete a durable power of trade mark attorney for health care. 3. Complete a living will. ADVANCE DIRECTIVE SCREENING: Does patient have an Advance Directive? The patient does not have an Advance Directive. The patient wishes to create an Advance Directive for health care. The patient has no questions about completing the Advance Directive forms. /riccardo/ SHONDA DALAL REGISTERED NURSE Signed: 11/23/2022 11:27 SHONDA DALAL ([facility]) Nov 23, 2022 11:27 AM H & P NOTE: LOCAL TITLE: [facility] ANNUAL VISIT STANDARD TITLE: H & P NOTE DATE OF NOTE: NOV 23, 2022@11:27 ENTRY DATE: NOV 23, 2022@07:35:39 AUTHOR: JIMENEZ CHESTER EXP COSIGNER: URGENCY: STATUS: COMPLETED Type of Visit: Face to Face Reason for Visit: Annual review of chronic medical conditions HPI: 82 year-old MALE here for his annual visit. His last visit was 11/29/2021. Since that visit, he has had an community care audiology visit. [place] had a Medicare wellness visit on 08/01/2022. Is now a year older. 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 Weight: 6.3 lbs down from last year. CPAP: no history of ALY Sleep issues: hard time to get back to sleep after [place] trip Urinary symptoms: Urinary flow: slightly slow Hesitancy: none Emptying: hard with sitting Incontinence: occasionally wears pads, shopping Night-time void: 2 times GI symptoms: Heartburn/Reflux: no problems recently Diarrhea/Constipation: has issues with this, varies from diarrhea and then constipation. If take stool softener will have diarrhea for a few days. Has ordered something off the internet detox Working on healthy diet. Arthritis: right knee injury, not bothering too much, low back pain probably the worse Vision: glasses working well, appointment in 1 week for recheck Hearing: hearing aids doing ok Home blood sugar: 120's or lower Review of systems: otherwise negative Past Medical History: 1. Coronary artery disease 2. Hypertension 3. Hyperlipidemia 4. Type 2 diabetes 5. peripheral neuropathy 6. Long-term current use of insulin 7. Macular edema Past Surgical History: 1. CABG [...] Rare 4. Illicit drugs: none 5. 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 Service: [employer] Allergies: NKDA Physical Exam: Temp: 97.7 F [36.5 C] (11/23/2022 11:13) Pulse:59 (11/23/2022 11:13) BP: 138/76 (11/23/2022 11:13) Resp: 18 (11/23/2022 11:) O2 Sat: 98% (11/23/2022 11:) Weight: 186 lb [84.37 kg] (11/23/2022 11:) BMI: 27.1 Pain: 0 (11/23/2022 11:) General: AAOx3, NAD, Healthy HEENT: PERRL, EOMI, AT/NC, no scleral icterus, neck supple, TM's clear bilaterally, throat without erythema, no thyromegaly, no lymphadenopathy. CV: Regular rate and rhythm, no murmurs, no rubs, no gallops Lungs: clear to auscultation bilaterally, no crackles, no wheezing Abd: soft, NT/ND, No hepatosplenomegaly, +BS, no rebound, no guarding Extrem: no clubbing, cyanosis, or edema Neuro: non-focal Labs: [facility] labs: 08/01/2022 Hemoglobin A1c 7.3, microalbumin ratio 27.4, WBC 8.8, hemoglobin 11.8, hematocrit 35.5, platelet 264, sodium 142, potassium 5.0, chloride 104, CO2 24, AG 14, glucose 123, calcium 9.7, BUN 24, creatinine 1.27, EGFR 57 [facility] labs: 04/11/2022 Total cholesterol 134, triglycerides 97, HDL 40, LDL 75 Imaging [facility] 11/15/2022 LE arterial TRAN - wound eval Right: Doppler Waveforms: Abnormal signals starting at or above the tibial/pedal level. Resting Index: TRAN (PT)- 0.79 TRAN (DP)- 0.75 TBI- 0.28 TcPO2: Values as noted. Left: Doppler Waveforms: Abnormal signals starting at or above the tibial/pedal level. Resting Index: TRAN (PT)- 0.97 TRAN (DP)- 0.93 TBI- 0.46 TcPO2: Values as noted. General: Added TcP02 testing per protocol for toe ulcer. Conclusions: Right lower extremity: Moderate infrapopliteal arterial occlusive disease. TcPO2 values are normal for the proximal and distal foot. Left lower extremity: Borderline infrapopliteal arterial occlusive disease. TcPO2 values are normal for the proximal and distal foot. No prior studies for comparison. Assessment/Plan: 1. Coronary artery disease/HDL/HTN - LDL goal < 70, BP goal < 140/90 - Continue aspirin 81 mg daily - Continue atorvastatin 40 mg daily - Continue hydrochlorothiazide 50 mg daily - Continue lisinopril 40 mg daily - Continue metoprolol succinate 50 mg daily - Continue nitroglycerin 0.4 mg sublingual as needed - Patient will follow-up through [facility] with PCP 2. Type 2 diabetes with peripheral neuropathy - Continue to monitor glucose 3 times daily - Insulin glargine 12 units at bedtime - Insulin aspart 8 to 10 units 3 times daily with meals - helps manage the carb counting and insulin aspart - Continue glipizide 10 mg twice daily - Continue Metformin 1000 mg twice daily - Patient will follow-up through [facility] with PCP 3. Sensorineural hearing loss - Follow-up with audiology as planned - Has received care in the community for audiology - Has hearing aids and happy with the results 4. Macular edema/diabetic retinopathy - currently seeing ophthalmology and getting injections - Continue to follow-up with non-VA provider 5. Health Care Maintenance: no longer indicated due to age - Colonoscopy 03/16/2020 with tubular adenoma follow-up in 5 years - Vaccinations: IM - Immunizations Immunization Series Date Facility Reaction Info COVID-19 (MODERNA), MRNA, LNP-S,* 1 03/29/2022 [facility] [place]* COVID-19 (PFIZER), MRNA, LNP-S, P* 3 03/09/2021 [facility]* 2 07/24/2020 [place]* 1 07/03/2020 [place]* INFLUENZA, HIGH-DOSE, QUADRIVALEN* 1 04/05/2022 [facility] INFLUENZA, UNSPECIFIED FORMULATIO* 03/09/2021 [facility]* [facility] PNEUMOCOCCAL CONJUGATE PCV 13 01/21/2015 [facility]* <C> PNEUMOCOCCAL POLYSACCHARIDE PPV23 02/09/2011 [facility]* 03/06/2006 [facility]* TDAP 01/21/2021 [facility] * <C> ZOSTER RECOMBINANT 2 01/21/2021 [facility] * 1 10/21/2020 [facility] * CVF - Future Appointment: 11/23/2022 11:00 DANA PACT [facility] RTC in 1 year annual visit CPRS chart review/chart prep/JLV review: 11 minutes Time with patient: 24 minutes Chart completion: 10 minutes Clinical Reminders: Medication Reconciliation: Education Evaluations [...] were also reviewed/updated for accuracy. Allergies/ADR from [facility] may not display in CPRS. Use JLV MRT5 - Allergies/ADRs FACILITY ALLERGY/ADR -------- No Remote Allergy/ADR Data available for this patient [facility] No Known Allergies Active and Recently Outpatient Medications (including Supplies): Start Date Active Non-VA Medications Refills Expiration 1) Non-VA ASPIRIN 81MG CHEW TAB SiMG ACTIVE MOUTH DAILY 2) Non-VA ATORVASTATIN CALCIUM 80MG TAB ACTIVE SiMG MOUTH DAILY 3) Non-VA CONTOUR NEXT (GLUCOSE) TEST STRIP ACTIVE Si STRIP THREE TIMES A DAY 4) Non-VA GABAPENTIN 300MG CAP SiMG ACTIVE MOUTH THREE TIMES A DAY 5) Non-VA GLIPIZIDE 10MG TAB SiMG ACTIVE MOUTH TWICE A DAY 6) Non-VA HYDROCHLOROTHIAZIDE 50MG TAB ACTIVE SiMG MOUTH DAILY 7) Non-VA INSULIN GLARGINE 300UNITS/ML 3ML ACTIVE PEN INJ Si UNITS UNDER THE SKIN DAILY 8) Non-VA INSULIN REGULAR (HUMAN) INJ Sig: ACTIVE ASPART 8 TO 10 UNITS PRIOR TO MEALS UNDER THE SKIN BEFORE MEALS 9) Non-VA LISINOPRIL 40MG TAB SiMG ACTIVE MOUTH DAILY 10) Non-VA METFORMIN HCL 1000MG TAB Sig: ACTIVE 1000MG TWO TIMES A DAY 11) Non-VA METOPROLOL SUCCINATE 100MG SA TAB ACTIVE SiMG MOUTH DAILY 12) Non-VA NITROGLYCERIN 0.4MG SL TAB Sig: ACTIVE 0.4MG UNDER THE TONGUE NEEDED 13) Non-VA NON VA MED NOT LISTED ACTIVE MISCELLANEOUS Sig: ACCU-CHECK ALEJO PLUS METER THREE TIMES A DAY 14) Non-VA SHIRA FINE 32 DISPOSABLE NEEDLE ACTIVE Si NEEDLE UNDER THE SKIN FOUR TIMES A DAY 15) Non-VA TRIAMCINOLONE ACETONIDE 0.1% OINT ACTIVE Sig: SMALL AMOUNT TOPICALLY THREE TIMES A DAY NEEDED /es/ JIMENEZ CHESTER MD PHYSICIAN Signed: 11/23/2022 20:30 JIMENEZ CHESTER ([facility]) Nov 23, 2022 11:14 AM PRIMARY CARE NOTE: LOCAL TITLE: [facility] PROGRESS NOTE-[facility] STANDARD TITLE: PRIMARY CARE NOTE DATE OF NOTE: NOV 23, 2022@11:14 ENTRY DATE: NOV 23, 2022@11:14:39 AUTHOR: SHONDA DALAL COSIGNER: URGENCY: STATUS: COMPLETED TYPE OF VISIT: Appointment Check In Type of appointment: In-person appointment REASON FOR VISIT: annual appt. co-managed [facility] in [place]. not fasting. ALLERGIES: Patient has answered NKA VITAL SIGNS: Blood Pressure: 138/76 (11/23/2022 11:13) Pulse: 59 (11/23/2022 11:13) Respiration: 18 (11/23/2022 11:13) Temperature: 97.7 F [36.5 C] (11/23/2022 11:13) Weight: 186 lb [84.37 kg] (11/23/2022 11:13) Height: 69.5 in [176.5 cm] (11/23/2022 11:13) BMI: 27.1 O2 Sat: 98% (11/23/2022 11:13) Pain: 0 (11/23/2022 11:13) PAIN SCREEN: Patient is not having significant pain that they wish to discuss with their provider today. MEDICATION Active Outpatient Medications (including Supplies): Non-VA ASPIRIN 81MG CHEW TAB 81MG MOUTH DAILY ACTIVE Non-VA ATORVASTATIN CALCIUM 80MG TAB 40MG MOUTH DAILY ACTIVE Non-VA CONTOUR NEXT (GLUCOSE) TEST STRIP 1 STRIP THREE ACTIVE TIMES A DAY Non-VA GABAPENTIN 300MG CAP 300MG MOUTH THREE TIMES A DAY ACTIVE Non-VA GLIPIZIDE 10MG TAB 10MG MOUTH TWICE A DAY ACTIVE Non-VA HYDROCHLOROTHIAZIDE 50MG TAB 50MG MOUTH DAILY ACTIVE Non-VA INSULIN GLARGINE 300UNITS/ML 3ML PEN INJ 12 UNITS ACTIVE UNDER THE SKIN DAILY Non-VA INSULIN REGULAR (HUMAN) INJ ASPART 8 TO 10 UNITS ACTIVE PRIOR TO MEALS UNDER THE SKIN BEFORE MEALS Non-VA LISINOPRIL 40MG TAB 40MG MOUTH DAILY ACTIVE Non-VA METFORMIN HCL 1000MG TAB 1000MG TWO TIMES A DAY ACTIVE Non-VA METOPROLOL SUCCINATE 100MG SA TAB 50MG MOUTH DAILY ACTIVE Non-VA NITROGLYCERIN 0.4MG SL TAB 0.4MG UNDER THE TONGUE ACTIVE NEEDED Non-VA NON VA MED NOT LISTED MISCELLANEOUS ACCU-CHECK ACTIVE ALEJO PLUS METER THREE TIMES A DAY Non-VA SHIRA FINE 32 DISPOSABLE NEEDLE 1 NEEDLE UNDER THE ACTIVE SKIN FOUR TIMES A DAY Non-VA TRIAMCINOLONE ACETONIDE 0.1% OINT SMALL AMOUNT ACTIVE TOPICALLY THREE TIMES A DAY NEEDED Diabetic Foot Exam - Complete: Patient had visual foot exam previously. Exam Result: Abnormal Date: November, ? Exact date is unknown Location: [facility] Comment: per /, sore on right foot Patient had pedal (dorsalis pedis and/or posterior tibial) pulse exam previously. Exam Result: Abnormal Date: November, ? Exact date is unknown Location: [facility] Comment: per / Patient had foot sensory exam with monofilament previously. Exam Result: Abnormal Date: November, ? Exact date is unknown Location: [facility] Comment: per / The following risk level was identified for this patient: RISK LEVEL SCORE: --LEVEL 3 - (HIGH RISK) Any Level 3 red flag history by itself or Abnormal sensory exam with diminished circulation AND at least one of foot deformity or minor foot infection FOOT CARE EDUCATION: -DO NOT walk barefoot -Ulcers lead to gangrene and amputation -Examine feet daily (demo foot check) -Bathe feet daily and dry completely -Wear clean non-restrictive socks/stockings -Wear therapeutic footwear and orthosis -Immediate medical attention for foot injury or ulcer offered Podiatry consult, but declined. Comment: well managed at [facility] Tobacco Use Screening: The patient is a former tobacco user. The patient quit fifteen or more years ago. Alcohol Use Screen (AUDIT-C): Alcohol Screen: SCREEN FOR ALCOHOL (AUDIT-C) An alcohol screening test (AUDIT-C) was negative (score=2). 1. How often did you have a drink containing alcohol in the past year? Two to four times a month 2. How many drinks containing alcohol did you have on a typical day when you were drinking in the past year? One or two drinks 3. How often did you have six or more drinks on one occasion in the past year? Never Depression Screening: Perform PHQ-2 A PHQ-2 screen was performed. The score was 0 which is a negative screen for depression. Over the past two weeks, how often have you been bothered by the following problems? 1. Little interest or pleasure in doing things Not at all 2. Feeling down, depressed, or hopeless Not at all Suicide Screen: C-SSRS Screening [place] Suicide Severity Rating Scale (C-SSRS) screener 1. Over the past month, have you wished you were or wished you could go to sleep and not wake up? No 2. Over the past month, have you had any actual thoughts of killing yourself? No 3. Over the past month, have you been thinking about how you might do this? Response not required due to responses to other questions. 4. Over the past month, have you had these thoughts and had some intention of acting on them? Response not required due to responses to other questions. 5. Over the past month, have you started to work out or worked out the details of how to kill yourself? Response not required due to responses to other questions. 6. If yes, at any time in the past month did you intend to carry out this plan? Response not required due to responses to other questions. 7. In your lifetime, have you ever done anything, started to do anything, or prepared to do anything to end your life (for example, collected pills, obtained a gun, gave away valuables, went to the roof but didn't jump)? No 8. If YES, was this within the past 3 months? Response not required due to responses to other questions. Nursing Annual Screening: Fall History Screen During the past 12 months, have you had any falls? Patient does not report any falls in the past 12 months. MEDICATIONS: Patient is on one of the following medication classes: Antihypertensives, Antidepressants, Antipsychotics, Diuretics, or Controlled substance medication used for pain. FALL RISK ADVICE: Fall Risk Advice provided. Handout entitled Fall Prevention At Home reviewed and given to patient and/or significant other. Script Talk Screen Are you able to read your prescription bottles with your glasses, magnifiers or other aids? Yes or patient not taking any prescriptions. Skin Screen Patient reports any current pressure ulcers, a history of pressure ulcers, or a wound from a medical coding technician or Patient is bed-confined or a wheelchair-user or Patient requires assistance to transfer/change position No, Skin Screen is Negative Home Abuse/Violence Screen Is your home free of abuse and violence? Yes MOVE! Program Screen Body Mass Index (BMI)= 27.1 [place]: No data available [place] Hgb A1C: No data available [place] Hgb A1C: No data available Point of Care Hgb A1C: POC HGB A1C____ Outpatient Nutrition Screen Body Mass Index (BMI)= 27.1 [place]: No data available [place] Hgb A1C: No data available [place] Hgb A1C: No data available Point of Care Hgb A1C: POC HGB A1C____ Is patient's BMI less than 18.5? No Does patient have swallowing, coughing, or chewing problems affecting oral intake? No Has patient experienced unplanned weight loss or gain greater than 10 pounds over the last 2 months? No Is patient's Hgb A1C (Glycosylated Hemoglobin) greater than 9.5? Information not available Is patient receiving Total Parenteral Nutrition (TPN) or Tube Feedings? No Patient Health Education Screen BARRIERS/SPECIAL NEEDS: No barriers identified PREFERRED STYLE OF LEARNING: No preference stated Client Assistive Service (GLENNY) Screen Does the patient require assistance with outpatient visit? No /es/ SHONDA DALAL REGISTERED NURSE Signed: 11/23/2022 11:24 SHONDA DALAL ([facility])
--- OUTSIDE RECORDS SUMMARY | 2023-08-22 09:02 | XMS_ITS | Clinical Summary ---
Author Name Unknown Organization [facility] Address [place], [place] [address] Care Team Providers Care Private Investigator Surveillance Name Role Phone VotelMelquiades MD Primary Care Provider + Nurses, Advanced Heart Failure Unavailable + Shade Manuel MD Unavailable Allergies No known active allergies Medications Medication Sig Dispensed Refills Start Date End Date Status blood-glucose meterIndications:T ype 2 diabetes mellitus with complication (HC) [employer] Glucometer, Dispense meter, test strips, lancets covered by pt ins. Test 3 times daily 1 Device 07/09/2020 Active Insulin [place], Disposable, (Novofine 32) 32 gauge x 1/4Indications:25 0.00 Diabetes Type 2, insulin dependent For administering insulin at home 4 times daily or as needed 400 Each 3 06/23/2021 Active ketoconazole 2% topical (NIZORAL) cream Apply topically to affected area(s) once daily if needed. APPLY TO AFFECTED AREA BETWEEN EYEBROWS 1-2X DAILY FOR 2 WEEKS AT A TIME NEEDED FOR FLARES 02/22/2021 Active nitroglycerin (NITROSTAT) 0.4 mg sublingual tabletIndications: Coronary artery disease involving [employer] [place] heart without angina pectoris, unspecified vessel or lesion type PLACE 1 TABLET UNDER THE TONGUE EVERY 5 MINUTES IF NEEDED FOR CHEST PAIN 50 Tablet 09/20/2022 Active Additional Information Patient taking differently: 0.4 mgSublingualQ 5MIN PRN, Chest Pain, Informant: Family, Reported on 12/27/2022 artificial tears, peg 400-propylene glycol, (Systane) 0.4-0.3 % ophthalmic dropperetteIndicat ions:Dry eyes Place 2 Drops into both eyes once daily if needed for Dry Eyes. 0 01/08/2023 Active triamcinolone (ARISTOCORT; KENALOG) 0.1 % creamIndications:R rachael Apply topically to affected area(s) two times daily. APPLY to affected areas 2X DAILY FOR 2 WEEKS AT A TIME NEEDED FOR FLARES 60 g 4 01/08/2023 Active atorvastatin (LIPITOR) 40 mg tabletIndications: Hyperlipidemia LDL goal <70 Take one tab daily at bedtime. 90 Tablet 3 02/06/2023 Active pantoprazole (PROTONIX) 40 mg delayed-release tabletIndications: Gastroesophageal reflux disease, unspecified whether esophagitis present Take 1 Tablet (40 mg) by mouth once daily. 90 Tablet 3 02/06/2023 Active Eliquis 5 mg tabletIndications: Paroxysmal atrial fibrillation (HC) TAKE 1 TABLET(5 MG) BY MOUTH TWICE DAILY 180 Tablet 1 03/06/2023 Active clopidogreL (PLAVIX) 75 mg tabletIndications: NSTEMI (non-ST elevated myocardial infarction) (HC) TAKE 1 TABLET(75 MG) BY MOUTH EVERY MORNING 90 Tablet 1 03/06/2023 Active dapagliflozin propanediol (Farxiga) 10 mg tabletIndications: HFrEF (heart failure with reduced ejection fraction) (HC) 10 mg po daily, Resume after d/c from [facility] 90 Tablet 04/09/2023 Active metoprolol succinate (Toprol XL) 25 mg Sustained-Release tabletIndications: HFrEF (heart failure with reduced ejection fraction) (HC) Take 0.5 Tablets (12.5 mg) by mouth once daily in the evening. 0 04/09/2023 Active acetaminophen (TYLENOL) 325 mg tabletIndications: Pain Take 2 Tablets (650 mg) by mouth every 4 hours if needed for Pain. Max acetaminophen dose: 4000mg in 24 hrs. 0 04/09/2023 Active polyethylene glycol (MIRALAX; GLYCOLAX) 17 g per packet packetIndications: Constipation, unspecified constipation type Mix 17 g in liquid then take by mouth once daily. 0 04/10/2023 Active sennosides 17.2 mg tabIndications:Con stipation, unspecified constipation type Take 17.2 mg by mouth two times daily. 0 04/09/2023 Active mirtazapine (REMERON) 7.5 mg as half tablet Take 7.5 mg by mouth at bedtime. Active spironolactone (ALDACTONE) 25 mg tablet Take 25 mg by mouth once daily. Active multivitamins with minerals tablet Take 1 Tablet by mouth once daily. Active emollient (Vanicream) topical cream Apply topically to affected area(s) two times daily. Active furosemide (LASIX) 20 mg tablet Take 20 mg by mouth. 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 Up to 60 units daily. 30 mL 11 07/17/2023 Active levothyroxine (Synthroid) 75 mcg tabletIndications: Hypothyroidism (acquired) Take 1 Tablet (75 mcg) by mouth before breakfast. 90 Tablet 3 07/17/2023 Active blood sugar diagnostic (Contour Next Test Strips) stripIndications:T ype 2 diabetes mellitus with complication (HC) Dispense item covered by pt ins. E10.9 IDDM type I - Test 4 times/day. Reason: complicated diabetes. 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 Up to 60 units daily 15 mL 07/20/2023 Active Active Problems Problem Noted Date Diagnosed Date Acute on chronic systolic (congestive) heart heather lure 07/17/2023 Atherosclerosis of coronary artery bypass graft(s), unspecified, with other forms of angina pectoris 07/17/2023 Stage 3b chronic kidney disease 07/17/2023 UTI (urinary tract infection) 04/30/2023 ALEX (acute kidney injury) 04/30/2023 Constipation 04/30/2023 Infrarenal abdominal aortic aneurysm (AAA) witho ut rupture 03/22/2023 Overview: Needs follow-up aortic ultrasound March 2026 to monitor 3 cm infra-renal abdominal aortic aneurysm Infrarenal abdominal aortic aneurysm (AAA) witho ut rupture 03/22/2023 Overview: US 03/22/23: 3cm. Surveillance due 2025. Hypothyroidism 03/11/2023 PAD (peripheral artery disease) 03/10/2023 Cellulitis of right foot 03/10/2023 Status post amputation of lesser toe 03/10/2023 Gangrene of toe of right foot 03/08/2023 Acute kidney injury 12/28/2022 Acute decompensated heart failure 12/28/2022 COVID-19 12/28/2022 History of peristent atrial fibrillation 023 HFrEF (heart failure with reduced ejection fract ion) 12/22/2022 Atrial fibrillation 12/13/2022 Diabetic ulcer of toe of rig ht foot associated with type 2 diabetes mellitus, with fat layer exposed 12/10/2022 Type 2 diabetes mellitus with peripheral neuropa thy 12/10/2022 Diabetic peripheral neuropat hy associated with type 2 diabetes mellitus 12/09/2022 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 current use of insulin 12/09/2022 NSTEMI (non-ST elevated myocardial infarction) 0 12/09/2022 Atherosclerosis of [employer] ar guero of extremity with ulceration 11/25/2019 HTN (hypertension) 10/28/2015 Hyperlipidemia LDL goal <70 10/28/2015 Adenomatous colon polyp 04/13/2015 Overview: Colonoscopy 04/2015 polyps repeat in 5 years Colonoscopy 03/2020 polyps, repeat in 5 years Background diabetic retinopathy(362.01) 07/10/19 08 Unspecified hearing loss 07/10/2007 Coronary atherosclerosis of unspecified type of vessel, [employer] or graft Overview: 4 vessel CABG 2001 Lexiscan only for cardiac evaluation - no treadmill Other ill-defined and unknow n causes of morbidity and mortality Impotence of organic origin Resolved Problems Problem Noted Date Diagnosed Date Resolved Date Type 2 diabetes mellitus with complication 11/16/2017 12/22/2022 Heart disease, unspecified 0 07/10/2007 Encounters Date Type Department Care Team Description 08/17/2023 Telephone [facility] [address] [place] [address] Melquiades Man MD Home Care ([facility]) 08/08/2023 Telephone [facility] [address] [place] [address] Melquiades Man MD 08/01/2023 Orders Only [facility] Scanner 1 scan: (1-Ord) [facility], 08/01/2023 07/31/2023 Telephone [facility] [address] [place] [address] Melquiades Man MD 07/27/2023 11:30 AM CDT [facility] [address] [place] [address] [place] [address] Shade Manuel MD CV Heart Failure Est (6 mo f/u, discuss recent med changes. ) 07/27/2023 10:45 AM CDT [facility] [address] [place] [address] [place] [address] Lab 07/27/2023 Travel 07/24/2023 Telephone [facility] [address] [place] [address] Melquiades Man MD 07/24/2023 Refill [facility] [address] [place] [address] Melquiades Man MD Refill Request (Fiasp Flextouch Pen Inj 3ml ) 07/20/2023 1:00 PM VICE PRESIDENT QUALITY Telemedicine [facility] [address] [place] [address] Santana Nails MD Wound Check 07/20/2023 Refill [facility] [address] [place] [address] Melquiades Man MD Refill Request; NOVOLOG FLEXPEN 07/20/[address] [address] Ezequiel Nye, Isidro Hearing Aid 07/19/[address] [address] Melquiades Man MD 07/18/[address] [address] Melquiades Man MD Refill Request (Basaglar 100 U/ML Kwikpen INJ 3ml) 07/17/2023 2:05 PM VICE PRESIDENT QUALITY Office Visit [address] [address] Melquiades Man MD Medication Management; Follow Up (Discharged from assisted 06/20/23, left foot wound developed while at the assisted) 07/17/[address] [address] Melquiades Man MD Refill Request (insulin) 07/17/2023 Travel 07/17/[address] [address] Melquiades Man MD Form 07/12/[address] [address] Melquiades Man MD 07/11/2023 Telephone [facility] [address] [place] [address] Ezequiel Nye, AuD '[employer] ASS[employer]IATION (AUTHORIZATION) 07/10/2023 Telephone [facility] [address] [place] [address] Melquiades Man MD 07/05/2023 Telephone [facility] [address] [place] [address] Melquiades Man MD Home Care 07/03/2023 Telephone [facility] [address] [place] [address] Melquiades Man MD Follow Up (orders) 07/02/2023 Telephone [facility] [address] [place] [address] Santana Nails MD Appointment 07/02/[address] [address] Ezequiel Nye, AuD Referral 07/01/[address] [address] Kimberly Hurtado MD 07/01/2023 Nurse Triage [address] [address] Melquiades Man MD High Blood Sugar 06/28/[address] [address] Melquiades Man MD 06/25/[address] [address] Melquiades Man MD ACC Order Request 06/22/[address] [address] Melquiades Man MD Outside Order 06/21/[address] [address] Ezequiel Nye, AuD Form (Referral for services form ( [place] )) 06/04/[address] [facility] [address] [place] [address] [facility] 06/04/[address] [facility] [address] [place] [address] [facility] Trujillo MD 05/31/[address] [facility] [address] [place] [address] [facility] gorge[facility] dahl, Laura Hughes MD from Last 3 Months Immunizations Name Administration Dates Next Due COVID-19 vaccine (Moderna 100mcg/0.5mL) PF, MDV 03/09/2021 COVID-19 vaccine (Moderna 50 mcg/0.5mL) 12YO+ BIVALENT PF, MDV 03/29/2022 COVID-19 vaccine ([employer] 30mcg/0.3mL) PF, MDV 03/09/2021,07/24/2020,07/03/2020 COVID-19 vaccine Comirnaty ([employer] 30mcg/0.3mL) 12YO+ [id number] Formula PF, SDV, PFS 03/05/2023 Influenza Virus, Unspecified 03/09/2021,02/12/20,03/15/2017 Influenza, High-dose Inactivated 03/07/2019,01/12 Influenza, High-dose Quadriv alent Inactivated 04/05/2022,03/09/2021 Influenza, IIV3 (Age >=3 years) 01/31/20 13,03/13/2012,02/09/2011,04/28,04/05/2009,03/09/2008,03/05/2007 ,03/06/2006 Influenza, Inactivated AIIV4 (Age 65+ Years) Preserv Free 03/05/2023 Influenza, Inactivated IIV3 (Age 65+ Years) Preserv Free 02/12/2020,01/10/2018 Pneumococcal Poly,23-Valent (Pneumovax) 02/09/2011,03/06/2006 Pneumococcal conj 13-Valent (Prevnar 13) 01/21/2015 RSV, Bivalent Vaccine Recons tituted (Abrysvo 120MCG/0.5mL) 03/05/2023 Td (Age >=7 Years) 03/06/2006,02/05/1996 Td, Preservative Free (age >= 7 Years) 6 Tdap 01/21/2021 Zoster (Shingrix-RZV, recombinant) 01/21/2021, Family History Medical History Relation Name Comments Other Brother kidney problems Heart Disease Father 1st DE at 65 d 77 yo CHF Diabetes Mother Heart Disease Mother d 64 yo [place] Genetic Other There is a posi tive family hx. of coronary disease. Both parents and three sisters have had coronary-related problems. Aortic aneurysm Sister Cancer-colon Sister having complica tions from treatment Relation Name Status Comments Brother Father Mother Other Sister Social History Tobacco Use Types Packs/Day Years Used Date Smoking Tobacco: Former Cigarettes Q uit: 05/14/1968 Passive Smoke Exposure: Past Smokeless Tobacco: Never Tobacco Cessation:Counseling Given: Yes Comments:Quit smokin Alcohol Use Standard Drinks/Week Comments Yes 0 (1 standard drink = 0.6 oz pur e alcohol) occ PHQ-2 Answer Date Recorded PHQ-2 TOTAL SCORE 0 02/21/2023 Social Connections Answer Date Recorded Frequency of Communication with Friends and Fami ly 0 04/11/2022 Financial Resource Strain Answer Date R ecorded Difficulty of Paying Living Expenses 3 04/11/2022 Difficulty of Paying Living Expenses Not on file 04/11/2022 Food Insecurity Answer Date Recorded Worried About Running Out of Food in the Last Ye ar 1 04/11/2022 Transportation Needs Answer Date Record ed Lack of Transportation (Medical) 1 04/11/2022 Housing Stability Answer Date Recorded Unable to Pay for Housing in the Last Year 1 04/11/2022 Sex and Gender Information Value Date Recorded Sex Assigned at Not on file Gender Identity Not on file Sexual Orientation Not on file Obstetrics History Last Filed Vital Signs Vital Sign Reading Time Taken Comments Blood Pressure 94/62 07/27/2023 11:51 AM CDT Pulse 76 07/27/2023 11:51 AM CDT Temperature 36.4 ??C (97.5 ??F) 07/17/2023 2:09 PM CS T Respiratory Rate 24 05/03/2023 7:04 AM VICE PRESIDENT QUALITY Oxygen Saturation 100% 07/27/2023 11:51 AM CDT Inhaled Oxygen Concentration - - Weight 81.6 kg (180 lb) 07/27/2023 11:51 AM CDT pt reported Height 175.3 cm (5' 9.02) 07/27/2023 11:51 AM C DT Body Mass Index 26.57 07/27/2023 11:51 AM CDT Plan of Treatment Upcoming Encounters Date Type Department Care Team (Late st Contact Info) Description 08/23/2023 1:00 PM CDT Appointment [facility] ? [facility] [address] [place] [address] Zoila Grace, PT [address] [address] Health Maintenance Due Date Last Done Comments Medicare Wellness for age 65+ 08/02/2023, 11/25/2019, 05/16/2017, Additional history exists Influenza for age 65+ 01/13/2024 03/05/2023 , 04/05/2022, 03/09/2021, Additional history exists Depression screening for age 12+ 02/21/2024 02/20/2023, 02/14/2023, 01/24/2023, Additional history exists BMI (ht and wt on same day) for age 18+ 07/26/2024 07/27/2023, 02/20/2023, 02/06/2023, Additional history exists Tetanus booster 01/21/2031 01/21/2021, 02/12, 03/06/2006, Additional history exists Pneumococcal series for age 65+ Completed 01/21/2015, 02/09/2011, 03/06/2006 Tdap Completed 01/21/2021 Zoster (shingles) series for age 50+ Completed 01/21/2021, 10/21/2020 COVID-19 vaccine series Completed 03/05/20, 03/29/2022, 03/09/2021, Additional history exists Procedures Procedure Name Priority Date/Time Associated Diagnosis Comments SCAN-EYE EXAM 08/01/2023 12:00 AM CDT PRO-BNP Routine 07/27/2023 10:49 AM CDT Acute decompensated heart failure (HC) BASIC METABOLIC PANEL Routine 07/27/2023 10:49 AM CDT Acute decompensated heart failure (HC) TSH Routine 06/05/2023 7:08 AM VICE PRESIDENT QUALITY AEROBIC BACTERIAL CULTURE, STAIN Routine 05/31/2023 11:15 AM VICE PRESIDENT QUALITY Pressure ulcer of left heel, unspecified stage from Last 3 Months Results * SCAN-EYE EXAM (08/01/2023 12:00 AM CDT) Scanner OTHER * (ABNORMAL) PRO-BNP (07/27/2023 10:49 AM CDT) PRO-BNP 7,600(H) <450 pg/mL 07/27/2023 11:09 PM CDT [facility] Blood BLOOD SPECIMEN / Unknown Butterfly / Unknown 07/27/2023 10:49 AM CDT 07/27/2023 10:50 AM CDT Narrative [facility] - 07/27/2023 11:09 PM CDT The following cut-points have been suggested for the use of proBNP for the diagnostic evaluation of heart failure (HF) in patient with acute dyspnea. Patients with eGFR >= 60 Diagnosis (rule in CHF) ? <50 Years Old ?450 pg/mL 50 - 75 Years Old ?900 pg/mL >75 Years Old ? 1800 pg/mL Exclusion (rule out CHF) Age Independent ?300 pg/mL A cutoff of 1200 pg/mL for patients with an eGFR <60 yields a diagnostic sensitivity of 89% and specificity of 72% for acute congestive heart failure. ? Melquiades Man MD SEND OUTS [facility] [address] [place] [address], * (ABNORMAL) BASIC METABOLIC PANEL (07/27/2023 10:49 AM CDT) SODIUM 137 136 - 145 mmol/L 07/27/2023 11:08 PM CDT [facility] POTASSIUM 4.4 3.5 - 5.1 mmol/L 07/27/2023 11:08 PM T [facility] CHLORIDE 94(L) 98 - 107 mmol/L 07/27/2023 11:08 PM T [facility] CO2,TOTAL 26 22 - 29 mmol/L 07/27/2023 11:08 PM T [facility] ANION GAP 17 5 - 18 07/27/2023 11:08 PM T [facility] GLUCOSE 317(H) 70 - 99 mg/dL 07/27/2023 11:08 PM T [facility] CALCIUM 10.1 8.8 - 10.2 mg/dL 07/27/2023 11:08 PM T [facility] BUN 52(H) 8 - 23 mg/dL 07/27/2023 11:08 PM T [facility] CREATININE 1.74(H) 0.70 - 1.20 mg/dL 07/27/2023 11:08 PM T [facility] BUN/CREAT RATIO 30(H) 10 - 20 11:08 PM T [facility] eGFR 39(L) >90 mL/min/1.7 3m2 07/27/2023 11:08 PM CDT [facility] Comment:As of 2021, eG FR is calculated by the CKD-EPI creatinine equation without race adjustment. ??eGFR can be influenced by muscle mass, exercise, and diet. ??The reported eGFR is an estimation only and is only applicable if the renal function is stable. Blood BLOOD SPECIMEN / Unknown Butterfly / Unknown 07/27/2023 10:49 AM CDT 07/27/2023 10:50 AM CDT Melquiades Man MD CHEMISTRY Performing Organization Address City/[facility]/ZIP Co de Phone Number [facility] [address] [place] [id number], * (ABNORMAL) TSH (06/05/2023 7:08 AM VICE PRESIDENT QUALITY) TSH 14.20(H) 0.27 - 4.20 uIU/mL 06/05/2023 8:26 AM VICE PRESIDENT QUALITY [facility] Blood BLOOD SPECIMEN / Unknown Butterfly / Unknown 06/05/2023 7:08 AM VICE PRESIDENT QUALITY 06/05/2023 7:52 AM VICE PRESIDENT QUALITY Narrative [facility] - 06/05/2023 8:26 AM VICE PRESIDENT QUALITY In Adults, TSH values between 5.00 and 10.00 uIU/ml do not necessarily indicate the presence of Hypothyroidism. Correlation with clinical findings such as presence of goiter and/or Thyroperoxidase (TPO) Antibody may be helpful. For more information please refer to RONNIE 2004; 291: 228-238. Laura Enriquez MD CHEMI STRY [facility] [address] [place] [phone] * (ABNORMAL) AEROBIC BACTERIAL CULTURE, STAIN (05/31/2023 11:15 AM VICE PRESIDENT QUALITY) CULTURE RESULT(A) 06/03/2023 8:54 AM VICE PRESIDENT QUALITY [facility] CULTURE 4+ Staphylococcus aureus 06/03/2023 8:54 AM VICE PRESIDENT QUALITY [facility] Comment:Isolate is MRSA (Met hicillin-resistant Staph aureus). GRAM STAIN No RBCs 06/03/2023 8:54 AM VICE PRESIDENT QUALITY [facility] GRAM STAIN No PMNs 06/03/2023 8:54 AM VICE PRESIDENT QUALITY [facility] GRAM STAIN 1+ Epithelial cells 06/03/2023 8:54 AM VICE PRESIDENT QUALITY [facility] GRAM STAIN 4+ Gram Positive Cocci 06/03/2023 8:54 AM VICE PRESIDENT QUALITY [facility] Other (Other) Client Collect / Unknown 05/31/2023 11:15 AM VICE PRESIDENT QUALITY 05/31/2023 12:40 PM VICE PRESIDENT QUALITY Narrative Organism Antibiotic Method Susceptibility Staphylococcus aureus OXACILLIN >=4: R Staphylococcus aureus CLINDAMYCIN 0.25: S Staphylococcus aureus DOXYCYCLINE 2: S Staphylococcus aureus CEFAZOLIN R Staphylococcus aureus VANCOMYCIN 1: S Staphylococcus aureus TRIMETHOPRIM/SULF <=0.5/9.5: S Laura Enriquez MD MICRO BIOLOGY [facility] [address] [place] [address], from Last 3 Months Additional Health Concerns Infection Onset Date Last Indicated MRSA Comment:Order Contact Precautions. Nares surveillance cultures needed to clear patient if <12 months since positive culture. If >12 months since positive culture, precautions can be discontinued if patient has no MRSA risk factors. #1 +MRSA 05/31/2023 left heel, +MRSA 03/21/2023, right foot +MRSA 03/18/2023, right foot +MRSA 03/09/2023 right foot, +MRSA 03/08/2023 right 3rd toe patient resides at a LTCF exclusions for contact precaution discontinuation (if > 12 months since positive culture): resides in acute/senior care care, receiving hemodialysis, has chronic open wounds/skin damage, has long-term percutaneous indwelling medical devices Exclusions for nares collection (if <12 months since positive culture) include all of the previous exclusions plus patients on antibiotics 7 days prior to collection 03/08/2023 05/31/2023 MDRO-GNB 04/26/2023 04/26/2023 Advance Directives Documents on File Type Date Recorded Patient Curriculum Development Coordinator Harjinder QUINONEZ 03/26/2023 * Full Code (Latest Code Status on File) Date Activated Date Inactivated Comments 05/01/2023 8:07 AM 05/03/2023 3:11 PM Question Answer Comments Code Status Discussion: Reviewed Preferences * DNR Date Activated Date Inactivated Comments 04/30/2023 5:12 PM 05/01/2023 8:07 AM Question Answer Comments Code Status Discussion: Reviewed Preferences * DNR Date Activated Date Inactivated Comments 03/26/2023 10:43 AM 04/10/2023 1:01 PM Question Answer Comments Code Status Discussion: Reviewed Preferences * Full Code Date Activated Date Inactivated Comments 03/09/2023 2:21 AM 03/26/2023 10:43 AM Question Answer Comments Code Status Discussion: Reviewed Preferences * Full Code Date Activated Date Inactivated Comments 12/27/2022 11:28 PM 01/08/2023 1:30 PM Question Answer Comments Code Status Discussion: Reviewed Preferences Care Teams Private Investigator Surveillance Relationship Specialty Start Date End Date Votel, Melquiades Gray MD [address] [place] [address] PCP - General 11/20/05 Nurses, Advanced Heart Failure [address] [address] Advanced Heart Failure/Transplant Card 01/24/23 Shade Manuel MD [address] [place] [address] [place] [address] Cardiovascular Disease 01/24/23
--- OUTSIDE RECORDS SUMMARY | 2023-08-22 09:02 | XMS_ITS | Encounter Summary ---
Author Name [facility] Organization [facility] Address [address] [place] [id number] Support Name Relationship Address Phone SHELLIE CASAS [...] Cherry's Name Patient's Relationship to Policy Cherry [facility] (WNR) MEDICARE ADVANTAGE [facility] (WNR) May 14, 2020 [id number] [phone] PITER CASAS ERD PATIENT Selected Encounter This section includes the information on record at [place] for the Encounter. Date/Time Encounter Type Encounter Description Reason Provider Source Aug 10, 2023 10:45 AM HEARING AID REPAIR/MODIFYIN G AUDIOLOGY ICD-10-CM H90.3 Sensorineural hearing loss, bilateral LUDWIN CORCORAN [facility] Encounter Template Text not used by [place] Assessments - Encounter Diagnoses This section includes the primary and secondary diagnoses documented for the Encounter. Date/Time Primary/Secondary Diagnosis Diagnosis Name Provider Source Aug 10, 2023 11:22 AM PRIMARY Sensorineural hearing loss, bilateral LUDWIN CORCORAN [facility] Aug 10, 2023 11:22 AM SECONDARY Encounter for fitting and adjustment of hearing aid LUDWIN CORCORAN [facility] Encounter Notes: All associated encounter notes This section contains the clinical notes associated to the Encounter. Date/Time Encounter Note(s) Provider Source Aug 10, 2023 11:14 AM AUDIOLOGY NOTE: LOCAL TITLE: AUDIOLOGY CLINIC NOTE STANDARD TITLE: AUDIOLOGY NOTE DATE OF NOTE: AUG 10, 2023@11:14 ENTRY DATE: AUG 10, 2023@11:14:20 AUTHOR: MICK CORCORAN COSIGNER: URGENCY: STATUS: COMPLETED AUDIOLOGY CLINIC NOTE Has ADDENDA DIAGNOSIS Encounter for fitting and Adjustment of Hearing Aids Sensorineural Hearing Loss, Bilateral Reason for Visit: Hearing Aid Service Location of Visit(Room Number):2s-109 was seen for Hearing Aid Service/Repair: 30 minute Appointment Otoscopy: Free of Excessive Cerumen, Normal anatomy bilaterally DIAGNOSIS History: Patient seen for a hearing aid service/hearing aid check Make:RESOUND Model: ONE 61 MINI FRANKO-R Serial Number:[id number] Dome/Mold: CUSTOM SILICONE EARMOLDS The following Hearing aid problem(s) were presented Right Hearing Aid:CLEAN AND CHECK Left Hearing Aid:INTERMITTANT, FADES OUT, CHARGING ISSUES Action: remote control and micro cary not working- Hearing Aids were cleaned and checked. A listening check revealed good sound quality: REPLACED WAX GUARDS AND CLEARED VENTS Problem will require repair by branch office administrator and left aid was mailed to branch office administrator today. Also sent micro cary in for repair Device can be programmed/ mailed to [place] once repaired. Ordered replacement remote control 2-mail to [place] was counseled using a curriculum on the cleaning,care and use of hearing aids. Plan: Vet will contact call center as needed for follow up Patient is in agreement with this plan. 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 Helper:MAIL AID AND DEVICES TO RECEIVED /riccardo/ MICK CORCORAN AUDIO TECH Signed: 08/10/2023 11:22 08/16/2023 ADDENDUM STATUS: COMPLETED RECEIVED, CERTIFIED AND ISSUED RESOUND REMOTE CONTROL 2 DEVICE MAILED TO AT THE ADDRESS ON FILE /nallely CORCORAN AUDIO TECH Signed: 08/16/2023 16:07 08/16/2023 ADDENDUM STATUS: COMPLETED MAILING REPAIRED HEARING AIDS TO THE ADDRESS ON FILE /nallely [facility] STEREOTYPE CASTER Signed: 08/16/2023 17:33 08/17/2023 ADDENDUM STATUS: COMPLETED RECEIVED AND CERTIFIED REPAIRED RESOUND MICRO CARY DEVICE MAILED TO AT THE ADDRESS ON FILE /es/ MICK CORCORAN AUDIO TECH Signed: 08/17/2023 15:12 MICK CORCORAN [facility]
--- OUTSIDE RECORDS SUMMARY | 2023-08-22 09:02 | XMS_ITS | Clinical Summary ---
Author Name Unknown Organization [facility] Address [address] [place] [address] Care Team Providers Care Cell Operator Name Role Phone Kalia Natalio Mishra APRN C.N.P., M.S.N. Primary C are Provider Source Comments Patient records contain information from all sites at [facility]. For routine questions regarding patient records, call [phone] during business hours, M-F 8:00 AM - 5:00 PM Central Time. Record requests for emergency care only can be directed to [phone] at any time.[facility] Allergies No known active allergies Medications Medication Sig Dispensed Refills Start Date End Date Status blood sugar diagnostic strips (Contour Next Test Strips) Dispense item covered by pt ins. E10.9 IDDM type I - Test 4 times/day. Reason: complicated diabetes. 0 05/31/2022 Active sennosides-docusa te sodium (SENOKOT-S) 8.6-50 mg per tablet Take 2 tablets by mouth 2 (two) times a day. 0 Active nitroglycerin (NITROSTAT) 0.[address] 1 tablet (0.4 mg total) under the tongue every 5 (five) minutes as needed for chest pain. 25 tablet 11 05/24/2023 05/23/2024 Active multivitamin tablet Take 1 tablet by mouth daily. 90 tablet 3 05/24/2023 05/23/2024 Active sulfamethoxazole- trimethoprim (BACTRIM DS) 800-160 mg per tablet Take 1 tablet by mouth 2 (two) times a day. 14 tablet 0 06/03/2023 Active acetaminophen (TYLENOL) 325 mg tablet Take 2 tablets (650 mg total) by mouth 3 (three) times a day. In once daily prn 180 tablet 11 06/18/2023 06/17/2024 Active apixaban (ELIQUIS) 5 mg tablet Take 1 tablet (5 mg total) by mouth 2 (two) times a day. 180 tablet 3 06/18/2023 06/17/2024 Active atorvastatin (LIPITOR) 40 mg tablet Take 1 tablet (40 mg total) by mouth daily. 90 tablet 3 06/18/2023 06/17/2024 Active clopidogreL (PLAVIX) 75 mg tablet Take 1 tablet (75 mg total) by mouth daily. 30 tablet 11 06/18/2023 06/17/2024 Active diclofenac sodium (VOLTAREN) 1 % gel Apply 2 g topically 4 (four) times a day. Apply to right shoulder, right neck, right lower back for pain.. 100 g 0 06/18/2023 06/17/2024 Active emollient cream, VANICREAM, Apply 1 Application topically 2 (two) times a day. Apply to bilateral lower extremities for dry skin. 120 g 0 06/18/2023 Active furosemide (LASIX) 20 mg tablet Take 1 tablet (20 mg total) by mouth 2 (two) times a day. 180 tablet 3 06/18/2023 06/17/2024 Active insulin aspart U-100 (NovoLOG Flexpen U-100 Insulin) 100 unit/mL (3 mL) injection Inject 8 Units under the skin 3 (three) times a day with meals. Plus sliding scale 150 to 199 give 2 units. 200 to 249 give 4 units. 250 to 299 give 6 units. 300 to 349 give 8 units. 350 to 399 give 10 units. Greater than 399 give 12 units 15 mL 06/18/2023 06/17/2024 Active insulin glargine (LANTUS) 100 unit/mL injection Inject 19 Units under the skin every morning. 5.7 mL 06/18/2023 Active ketoconazole (NIZORAL) 2 % cream Apply 1 Application topically 2 (two) times a day as needed for irritation or rash. 15 g 0 06/18/2023 Active metoprolol succinate (TOPROL-XL) 25 mg 24 hr tablet Take 0.5 tablets (12.5 mg total) by mouth daily. 45 tablet 3 06/18/2023 06/17/2024 Active mirtazapine (REMERON) 7.5 mg tablet Take 1 tablet (7.5 mg total) by mouth at bedtime. 90 tablet 3 06/18/2023 06/17/2024 Active spironolactone (ALDACTONE) 25 mg tablet Take 1 tablet (25 mg total) by mouth daily. 90 tablet 3 06/18/2023 06/17/2024 Active triamcinolone (KENALOG) 0.1 % cream Apply 1 Application topically 2 (two) times a day as needed for irritation. 30 g 0 06/18/2023 Active polyethylene glycol (MIRALAX) 17 gram powder packet Take 1 packet (17 g total) by mouth daily. 90 packet 3 06/18/2023 06/17/2024 Active peg 400-propylene glycol, PF, (SYSTANE) 0.4-0.3 % ophthalmic solution Administer 2 drops into both eyes at bedtime as needed for dry eyes. 1 each 0 06/18/2023 Active levothyroxine (SYNTHROID, LEVOTHROID) 75 mcg tablet Take 1 tablet (75 mcg total) by mouth every morning before breakfast. 90 tablet 3 06/18/2023 06/17/2024 Active Active Problems Problem Noted Date Diagnosed Date Other Complications Of Amputation Stump 06/15/19 24 Overview: Part of the scab came off when the nurse was cleaning the area with saline and a guaze. Last Assessment & Plan: The wound bed is clean. A thin layer of silver stat will be applied with a gauze. Change daily. 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 Left Heel: Area continues to improve. Wound measures [id number]. Edges well defined, attached and 100% re-epithelialized tissues. Granulation tissue is observed along the lining of the edges under the bed of slough/eschar. Eschar is soft but not mushy. Wound bed is still approx 95% or more of slough/eschar. Scant drainage with dressing change. Resident tolerated cares without any concerns. New wound orders as follows: Last Assessment & Plan: 1: Gently cleanse area with NS. Pat dry. 2. Skin prep to gonsalo-wound. 3. Santyl to wound bed only. 4. Place gauze over wound. 5. cover with island dressing. 6. Change dressing daily. He may be discharged to home with home nursing for wound care . Dementia 05/20/2023 Overview: No documented dementia or behaviors Last Assessment & Plan: He has low hearing which could contribute to him not understanding Hyperglycemia 04/22/2023 Overview: Prior to recent hospitalization, insulin glargine dose was 25 units daily and short-acting insulin 10 units with meals. 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 03/09/2023: S/p 3rd toe amputation, right foot and was started on Vanco/cefepime/Flagyl. 03/13/2023: S/p Recanalization of chronic occlusion of tibial peroneal trunk, popliteal angioplasty. 03/18/2023: S/p R foot incision and drainage with partial 2-5 ray resection. 03/21/2023: S/p R Foot I&D, revision 2nd-5th ray amputation with delayed primary closure. 03/29/2023: Flap edges look dusky per Podiatry, vascular. Ebony held and attempt to recanalize RAT, however unsuccessful. 03/30/2023: After lengthy discussion with various aspects of the care team, on patient and his decided to proceed with a BKA. Cardiology noted that his recent NSTEMI would put him at higher surgical risk, but that there was no intervention is necessary or capable of changing that risk. 04/02/2023: Patient had below knee amputation, right side. Last Assessment & Plan: He has a brace/cast on right BKA. He will need a standard wheelchair Mr. Woods was admitted to [facility] April 10 following BK right lower extremity. Able to participate in rehabilitation and is reaching a maximum potential until he receives a prosthetic. He is anticipating returning home next week. He is having wheelchair ramp put in place to allow him access to his home able to participate in self-care task with the use of a wheelchair and would be able to safely discharge from the site to his home wheelchair base. His has demonstrated proficiency with assisting with slide board transfers in and out of the wheelchair on and off the toilet an in and out of the tub utilizing adaptations. He is unable to demonstrate ambulation with a walker crutches or cane. Without the use of wheelchair he would be bed bound. The primary use of the wheelchair is 1st home environment he has a pressure area and sacral region and will benefit from pressure relieving cushion. Therapy recommends flipped back arm rest to allow for increased ease with slide board transfers at home also recommends elevating leg rest due to history of edema and to continue to provide support to amputation site Hypothyroidism 03/11/2023 Overview: Lab Results Component Value Date TSH 14.20 (H) 06/05/2023 Component Ref Range & Units 1 mo ago 04/24/23 1 mo ago 04/13/23 2 mo ago 03/11/23 EXT TSH, Sensitive, S 0.27 - 4.20 uIU/mL 16.80 18.20 11.70 Levothyroxine 50mcg increase to 75mcg. Last Assessment & Plan: TSH value improved compared to prior value of 16.0 a month ago. Resident /nursing denied symptoms of hypothyroidism. Last T4 was 0.92 in April 2023. vice president global advertising sales confirmed levothyroxine is given every morning (6am) without other medications. Therefore, we will increase levothyroxine 50mcg to 75mcg and rechecked TSH in 6 weeks. Nursing instructed to continue monitoring for symptoms of hypothyroidism and contact [place] provider if any concerns. 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 Last Assessment & Plan: Plans to discharge back home. Patient remains appropriate SNF resident. Order summary paperwork signed following our visit, this included review of medications and orders. Current comorbidities, ADL need/level of debility requires skilled care/therapy. Medications and labs all reviewed and appropriate related to comorbidities, unless otherwise indicated. Physician order sheet signed. Continue PT/OT therapy, nutrition intervention, skin protection, and fall prevention. Advanced Care Planning 01/16/2023 Overview: Full code status Last Assessment & Plan: He will be full code Hyperlipidemia 01/16/2023 Overview: On atorvastatin Last Assessment & Plan: Stay on statin Weakness General 01/16/2023 Overview: This is multifactorial and related to recent hospitalizations and multiple comorbidities. Last Assessment & Plan: Denied weakness. We will continue therapy. Anemia Iron Deficiency 01/16/2023 Overview: Previously identified iron deficiency anemia receiving iron infusions. Lab Results Component Value Date WBC 9.0 04/11/2023 HGB 7.8 (L) 04/11/2023 HCT 24.9 (L) 04/11/2023 MCV 95 04/11/2023 PLT 381 04/11/2023 Last Assessment & Plan: Stable. Denied dizziness, lightheadedness, shortness of breaths and palpitation. Atherosclerotic Heart Diseas e Of [place] Coronary Artery Without Angina Pectoris 01/15/2023 Overview: NSTEMI 12/09/2022. Occluded saphenous vein graft to obtuse marginal. No PCI. PET stress test 01/05/2023 showed new area of infarct with no revascularization secondary to questionable benefit. Last Assessment & Plan: Medical management including blood pressure and blood glucose control, statin, clopidogrel. Congestive Heart Failure 01/15/2023 Overview: EF: ECHO with EF 10-20% on 12/28/2022 Wt Readings from Last 3 Encounters: 02/26/23 80.9 kg 01/17/23 81.6 kg 01/11/23 79.1 kg Beta aj: Metoprolol ACEI/ARB: ARNI: Na/Glu transport inhibitor: Tech: Diuretic: Dry weight: Not documented ECHOCARDIOGRAM 12/28/2022 Indication for study: HFrEF Cardiac Rhythm: Irregular.Study quality: Good. Final Impressions: Limited Echocardiogram performed 1. Normal LV size, normal wall thickness, severely reduced global systolic function with an estimated EF of 10-20%. 2. Right ventricular cavity size is normal, global systolic RV function is mildly reduced. 3. The aortic valve is sclerotic, no stenosis and no regurgitation. 4. The mitral valve is normal, moderate to severe mitral regurgitation. 5. Moderate tricuspid regurgitation. 6. The inferior vena cava is dilated, respiratory size variation less than 50%. 7. Severely elevated right atrial pressure. 8. Echo contrast was administered to enhance visualization of all left ventricular segments. 9. Mildly increased estimated pulmonary pressures by tricuspid regurgitation velocity and right atrial pressure (32 mmHg plus RAP). Last Assessment & Plan: Stable on current meds Hypertension Heart Disease With Congestive Heart Failure 12/22/2022 Last Assessment & Plan: Pro BN AP earlier today greater than 31,000. Doubling furosemide dose to 40 mg b.i.d. and adding spironolactone back at 25 mg daily. CBC and BMP on 02/17. Atrial Fibrillation Other Persistent 12/13/2022 Overview: Diagnosis: 12/13/2022 Treatment: Well controlled with metoprolol, plavix and apixaban CHADS2-Vasc Score: 6 Anticoagulation: Apixaban Last Assessment & Plan: nursing home anticoagulation on apixaban Chcf Use Of Insulin Active 12/09/2022 Overview: On insulin glargine and aspart started during hospitalization December 2022. Last Assessment & Plan: Nurse reports he is nonadherent to his diabetic diet. He is also on a sliding scale. 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 He is currently on antibiotic therapy. Blood sugars have been running lower since the wound has been treated. BS 72 this morning. Meal time insulin will be decreased to 8 units. OK to give after meals if BS 70 or below. The goal is not tight glycemic control but to prevent hypoglycemia. 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 Managed with nitroglycerin. Last Assessment & Plan: Denied chest pain. Continue nitroglycerin as needed. 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 Blood pressure normotensive. Continue care plan. Resolved Problems Problem Noted Date Diagnosed Date Resolved Date Wound Ankle Open Subsequent Left 04/25/2023 05/24/2023 Overview: 04/25/23: Nursing reported left lower calf/ankle redness. Last Assessment & Plan: Stable Polypharmacy 04/12/2023 05/24/2023 Overview: All medications reviewed at least bimonthly for adverse events, interactions, and continued indication/appropriateness. Reduction as able. Personal History Of Infectio us And Parasitic Disease (COVID-19) 01/16/2023 05/24/2023 Overview: Tested positive for COVID-19 12/27/2022. Treated with remdesivir at [facility]. Anemia 01/16/2023 04/12/2023 Overview: Lab Results Component Value Date WBC 9.0 04/11/2023 HGB 7.8 (L) 04/11/2023 HCT 24.9 (L) 04/11/2023 MCV 95 04/11/2023 PLT 381 04/11/2023 Last Assessment & Plan: CBC reordered. Denied dizziness, lightheadedness, shortness of breaths or palpitation. Hyperkalemia 01/15/2023 05/24/2023 Overview: Lab Results Component Value Date NA 134 (L) 04/11/2023 KSERUM 3.9 04/11/2023 CL 97 (L) 04/11/2023 BICARB 32 (H) 04/11/2023 BICARB 26 04/11/2023 CREATININE 1.21 (H) 04/11/2023 EGFRBLKAA >60 06/23/2021 EGFRNONBLKAA 53 (L) 06/23/2021 BUN 19 04/11/2023 ANIONGAP 11 04/11/2023 GLUCOSE 169 (H) 04/11/2023 CALCIUM 8.7 (L) 04/11/2023 Last Assessment & Plan: BMP ordered. Other Abnormalities Of Gait And Mobility 01/15/2023 05/24/2023 Last Assessment & Plan: Continue PT/OT. Failure Renal Acute (Acute Kidney Injury) 12/28/2022 05/24/2023 Overview: Lab Results Component Value Date CREATININE 1.21 (H) 04/11/2023 Diabetes Mellitus Type 2 Ulcer Foot 12/10/2022 04/23/2023 Non-ST Elevation Myocardial Infarction 12/09/2022 04/22/2023 Onychomycosis 04/29/2019 05/24/2023 Overview: Onychomycosis of toenails; Original Code: [id number] Original Codesystem: SNOMED CT Classification: Medical Confirmation Status: Confirmed Diabetes Mellitus Type 2 01/10/2019 Loss Hearing Right 07/10/2007 Encounters Date Type Department Care Team Description 06/18/2023 3:00 PM PUBLIC WORKS DIRECTOR External Outreach [facility] in [place] [address] [address] Hannah Castillo V., RAYNA, C.N.P. 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; Hypertension Heart Disease With Congestive Heart Failure (HCC); Hyperlipidemia; Hyperglycemia; Diabetes Mellitus Type 2 With Diabetic Polyneuropathy (HCC); Dementia (HCC); Congestive Heart Failure (HCC); Atrial Fibrillation Other Persistent (HCC); Atherosclerotic Heart Disease Of [place] Coronary Artery Without Angina Pectoris; 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 Diabetes Mellitus Type 2 With Diabetic Polyneuropathy (HCC) (Primary Dx) 06/05/2023 3:00 PM PUBLIC WORKS DIRECTOR External Outreach [facility] in [place] [address] [address] Natalio Motta APRN C.N.P., M.S.N. 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 05/31/2023 10:00 AM PUBLIC WORKS DIRECTOR External Outreach [facility] in [place] [address] [address] Hannah Castillo APRN, C.N.P. 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 Discharge Notice from Last 3 Months Social History Tobacco Use Types Packs/Day Years Used Date Smoking Tobacco: Former Cigarettes Smokeless Tobacco: Never Tobacco Cessation:Counseling Given: Not Answered Nutrition Answer Date Recorded Nutrition: EVOO Fat Source Unknown 11/03 Nutrition: Servings of Fruits/Vegetables per Day Not on file 11/03/2022 Dental Answer Date Recorded Dental: Regular Dentist Unknown 11/04/19 Sex and Gender Information Value Date Recorded Sex Assigned at Not on file Gender Identity Not on file Sexual Orientation Not on file Last Filed Vital Signs Vital Sign Reading Time Taken Comments Blood Pressure 107/66 06/18/2023 1:10 PM PUBLIC WORKS DIRECTOR Pulse 78 06/18/2023 1:10 PM PUBLIC WORKS DIRECTOR Temperature 36.6 ??C (97.8 ??F) 06/18/2023 1:10 PM CS T Respiratory Rate 16 06/18/2023 1:10 PM PUBLIC WORKS DIRECTOR Oxygen Saturation 95% 06/18/2023 1:10 PM PUBLIC WORKS DIRECTOR Inhaled Oxygen Concentration - - Weight 75.8 kg (167 lb) 06/18/2023 1:10 PM PUBLIC WORKS DIRECTOR Height 175.3 cm (5' 9) 04/12/2023 3:21 PM PUBLIC WORKS DIRECTOR Body Mass Index 24.66 04/12/2023 3:21 PM PUBLIC WORKS DIRECTOR Plan of Treatment Health Maintenance Due Date Last Done Comments Hepatitis B Vaccines (1 of 3 - Risk 3-dose series) 2001 COVID-19 Vaccine (2022-2 4 season) 2023 03/29/2022, 03/09/2021, 07/24/2020, Additional history exists Influenza Vaccine (#1) 2023 , 03/09/2021, 03/09/2021, Additional history exists Fall Risk Screen (Annual) 05/14/2023 DTaP,Tdap,and Td Vaccines (2 - Td or Tdap) 01/21/2031 01/21/2021, 03/06/2006 Pneumococcal vaccine (65+ years) Completed 01/21/2015, 02/09/2011, 03/06/2006 Zoster Vaccines Completed 01/21/2021, 10/21/2020 Advance Directives For more information, please contact: [phone] * DNR/DNI (Latest Code Status on File) Date Activated Date Inactivated Comments 05/24/2023 6:14 PM * DNR/DNI Date Activated Date Inactivated Comments 04/12/2023 4:11 PM 04/16/2023 7:15 AM Care Teams Cell Operator Relationship Specialty Start Date End Date Natalio Motta APRN, C.N.P., M.S.N. [address] [place] [address] PCP - General Internal Medicine 04/10/23
--- OUTSIDE RECORDS SUMMARY | 2023-08-22 09:02 | XMS_ITS | Encounter Summary ---
Author Name [employer] Organization [employer] [facility] [employer] Address [address] [place] [address] Support Name Relationship Address Phone SHELLIE CASAS [...] Cherry's Name Patient's Relationship to Policy Cherry [facility] (WNR) MEDICARE ADVANTAGE [facility] (WNR) May 14, 2020 [id number] [phone] PITER CASAS ERD PATIENT Selected Encounter This section includes the information on record at [facility] for the Encounter. Date/Time Encounter Type Encounter Description Reason Provider Source Jul 20, 2023 01:20 PM HC PRO PHONE CALL 5-10 MIN TELEPHONE/SURGERY ICD-10-CM H90.3 Sensorineural hearing loss, bilateral JACKY BARFIELD IHE Encounter Template Text not used by [facility] Assessments - Encounter Diagnoses This section includes the primary and secondary diagnoses documented for the Encounter. Date/Time Primary/Secondary Diagnosis Diagnosis Name Provider Source Jul 20, 2023 01:20 PM PRIMARY Sensorineural hearing loss, bilateral JACKY BARFIELD [facility] Plan of Treatment: Future Appointments (+ 6 months) and Future Tests (+/- 45 days) The Plan of Treatment section includes future care activities for the patient from all [facility] treatmentfacilities. This section includes future appointments and future orders which are active, pending or scheduled. Future Appointments This section includes appointments that were scheduled to occur 6 months from the date of the Encounter, up to a maximum of 20 appointments. The data comes from all [facility] treatment facilities. Appointment Date/Time Appointment Type Appointme nt Facility Name Aug 10, 2023 10:45 AM AMBULATORY - SURGERY [facility] Encounter Notes: All associated encounter notes This section contains the clinical notes associated to the Encounter. Date/Time Encounter Note(s) Provider Source Jul 20, 2023 01:20 PM AUDIOLOGY NOTE: LOCAL TITLE: AUDIOLOGY CLINIC NOTE STANDARD TITLE: AUDIOLOGY NOTE DATE OF NOTE: JUL 20, 2023@13:20 ENTRY DATE: JUL 20, 2023@13:20:20 AUTHOR: JACKY BARFIELD COSIGNER: URGENCY: STATUS: COMPLETED SUBJECT: Phone Call AUDIOLOGY CLINIC NOTE Has ADDENDA The patient is requesting [facility] but does not meet drive time or wait time requirements. He was called today in an attempt to convey this information and to triage his hearing aid needs but was unable to be reached. Left a voicemail explaining that he needs to contact the call center to be scheduled at [facility] for a repair or [place] for a hearing exam. PLAN: Patient should come in-house for Audiology care. Time Spent: 9 mins /Pauly Tarango DOCTOR OF AUDIOLOGY Signed: 07/20/2023 13:29 Receipt Acknowledged By: 07/20/2023 13:48 /nallely Cottrell RN, BSN, ISABEL mammalogy teacher Peanut Butter Maker 07/20/2023 ADDENDUM STATUS: COMPLETED Community Care CM made outreach call to Clinic patient registration representative Liane @ [facility] [address] [place] [address] PH: [phone] FX: [phone] PLAN: Making Department Preparer let Liane know that this request for additional audiology visits was received and declined. /nallely Cottrell RN, BSN, CCM mammalogy teacher Peanut Butter Maker Signed: 07/20/2023 13:[address] [facility]
--- OUTSIDE RECORDS SUMMARY | 2023-08-22 09:02 | XMS_ITS | Referral Summary ---
Author Name Unknown Organization [facility] Address [address] [place] [address] Care Team Providers Care Ethylene Plant Operator Name Role Phone Kalia Natalio Mishra APRN C.N.P., M.S.N. Primary C are Provider Source Comments Patient records contain information from all sites at [facility]. For routine questions regarding patient records, call [phone] during business hours, M-F 8:00 AM - 5:00 PM Central Time. 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); Peripheral Vascular Disease (HCC); Other Complications Of Amputation Stump (HCC); [place] Use Of Insulin Active (HCC); Custodial (Current) Anticoagulant Treatment; Hypothyroidism; 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; Hypertension Heart Disease With Congestive Heart Failure (HCC); Hyperlipidemia; Hyperglycemia; 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 Pressure Injury (Ulcer) Of Left Heel Stage 3 (HCC) (Primary Dx); Other Complications Of Amputation Stump (HCC) 06/07/2023 3:00 PM COMMERCIAL CONSTRUCTION ESTIMATOR External Outreach Senior Services in [place] [address] [address] Hannah Castillo APRN, C.N.P. 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 05/31/2023 10:00 AM COMMERCIAL CONSTRUCTION ESTIMATOR External Outreach Senior Services in [place] [address] [address] Hannah Castillo APRN, C.N.PCarito Pressure Injury (Ulcer) Of Left Heel Stage 3 (HCC) (Primary Dx) 05/29/2023 10:00 AM COMMERCIAL CONSTRUCTION ESTIMATOR External Outreach Senior Services in [place] [address] [place] [phone] Natalio Motta APRN C.N.P., M.S.N. 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 Discharge Notice from Last 3 Months Allergies No known active allergies Medications Medication [...] than 399 give 12 units 15 mL 1 06/18/2023 06/17/2024 Active insulin glargine (LANTUS) 100 unit/mL injection Inject 19 Units under the skin every morning. 5.7 mL 1 06/18/2023 Active ketoconazole (NIZORAL) 2 % cream [...] Date Other Complications Of Amputation Stump 06/15/19 Overview: Part of the scab came off [...] Heel: Area continues to improve. Wound measures [id number]. Edges well defined, attached and 100% re-epithelialized [...] will follow up with his PCP in [place] (Current) Anticoagulant Treatment 08/2022 Overview: On apixaban [...] standard wheelchair Mr. Woods was admitted to [facility] April 10 following BK right lower extremity. [...] Last T4 was 0.92 in April 2023. resident physician confirmed levothyroxine is given every morning (6am) without other medications. Therefore, we will increase levothyroxine 50mcg to 75mcg and rechecked TSH in 6 weeks. Nursing instructed to continue monitoring for symptoms of hypothyroidism and contact [place] provider if any concerns. 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 [...] and palpitation. Atherosclerotic Heart Diseas e Of [place] Coronary Artery Without Angina Pectoris 01/15/2023 Overview: [...] 6 Anticoagulation: Apixaban Last Assessment & Plan: skilled nursing anticoagulation on apixaban Custodial Use Of Insulin Active 12/09/2022 Overview: On [...] control but to prevent hypoglycemia. Atherosclerosis Of [place] Ar teries Of Other Extremities With Ulceration [...] for COVID-19 12/27/2022. Treated with remdesivir at [facility]. Anemia 01/16/2023 04/12/2023 Overview: Lab Results [...] 05/24/2023 Overview: Onychomycosis of toenails; Original Code: [id number] Original Codesystem: SNOMED CT Classification: Medical Confirmation Status: Confirmed Diabetes Mellitus Type 2 01/10/2019 Loss Hearing Right 07/10/2007 Social History Tobacco Use Types Packs/Day Years [...] Comments Blood Pressure 107/66 06/18/2023 1:10 PM COMMERCIAL CONSTRUCTION ESTIMATOR Pulse 78 06/18/2023 1:10 PM COMMERCIAL CONSTRUCTION ESTIMATOR Temperature 36.6 ??C (97.8 ??F) 06/18/2023 1:10 PM CS T Respiratory Rate 16 06/18/2023 1:10 PM COMMERCIAL CONSTRUCTION ESTIMATOR Oxygen Saturation 95% 06/18/2023 1:10 PM COMMERCIAL CONSTRUCTION ESTIMATOR Inhaled Oxygen Concentration - - Weight 75.8 kg (167 lb) 06/18/2023 1:10 PM COMMERCIAL CONSTRUCTION ESTIMATOR Height 175.3 cm (5' 9) 04/12/2023 3:21 PM COMMERCIAL CONSTRUCTION ESTIMATOR Body Mass Index 24.66 04/12/2023 3:21 PM COMMERCIAL CONSTRUCTION ESTIMATOR Plan of Treatment Not on file Advance Directives For more information, please contact: [phone] * DNR/DNI (Latest Code Status on File) Date Activated Date Inactivated Comments 05/24/2023 6:14 PM * DNR/DNI Date Activated Date Inactivated Comments 04/12/2023 4:11 PM 04/16/2023 7:15 AM Care Teams Ethylene Plant Operator Relationship Specialty Start Date End Date Natalio Motta APRN, C.N.P., M.S.N. [address] [place] [address] PCP - General Internal Medicine 04/10/23
--- OUTSIDE RECORDS SUMMARY | 2023-08-22 09:03 | XMS_ITS | Encounter Summary ---
Author Name Unknown Organization [facility] Address [address] [place] [address] Care Team Providers Care Ip Attorney Name Role Phone SantosumJessica ramírezNataliotashi Mishra APRN, C.N.P., M.S.N. Primary C are Provider Reason for Visit * Appointment Request (Routine) - Closed Specialty Diagnoses / Procedures Referred By Edin mishra Referred To Contact [facility] Facility Referral ID Status Reason Start Date Expiration Date Visits Re quested Visits Authorized [id number] Closed 05/31/2023 05/30/2024 1 1 Encounter Details Date Type Department Care Team (Latest Contact Info) Description 05/31/2023 10:00 AM DISTILLING DEPARTMENT SUPERVISOR External Outreach Senior Services in [facility] [address], [place] [address] Hannah Castillo APRN, C.N.P. [address] [place] [address] [place] [phone] Pressure Injury (Ulcer) Of Left Heel Stage 3 (HCC) (Primary Dx) Social History Tobacco Use Types Packs/Day Years Used Date Smoking Tobacco: Former Cigarettes Smokeless Tobacco: Never Nutrition Answer Date Recorded Nutrition: EVOO Fat Source Unknown 11/03 Nutrition: Servings of Fruits/Vegetables per Day Not on file 11/03/2022 Dental Answer Date Recorded Dental: Regular Dentist Unknown 11/04/19 Sex and Gender Information Value Date Recorded Sex Assigned at Not on file Gender Identity Not on file Sexual Orientation Not on file documented as of this encounter Last Filed Vital Signs Vital Sign Reading Time Taken Comments Blood Pressure 103/66 05/31/2023 9:47 AM DISTILLING DEPARTMENT SUPERVISOR Pulse 77 05/31/2023 9:47 AM DISTILLING DEPARTMENT SUPERVISOR Temperature 36.2 ??C (97.1 ??F) 05/31/2023 9:47 AM CS T Respiratory Rate 18 05/31/2023 9:47 AM DISTILLING DEPARTMENT SUPERVISOR Oxygen Saturation 100% 05/31/2023 9:47 AM DISTILLING DEPARTMENT SUPERVISOR Inhaled Oxygen Concentration - - Weight 72.8 kg (160 lb 9.6 oz) 05/31/2023 9:47 A M DISTILLING DEPARTMENT SUPERVISOR Height - - Body Mass Index 23.72 04/12/2023 3:21 PM DISTILLING DEPARTMENT SUPERVISOR documented in this encounter Patient Instructions * Patient Instructions* Hannah Castillo APRN, C.N.P. - 05/31/2023 10:00 AM DISTILLING DEPARTMENT SUPERVISOR ORDERS and INSTRUCTIONS: Acute visit done: Wound cleansed with saline and dried wound culture obtained. Aquacel AG cut to fit wound bed and lightly moistened with saline covered with border dressing. Change bid. HUMAN RESOURCES BENEFITS COORDINATOR to evaluate in one week Electronically signed by: Hannah Castillo APRN, C.N.P. 06/01/23 2:33 PM DISTILLING DEPARTMENT SUPERVISOR ILLING DEPARTMENT SUPERVISOR documented in this encounter Progress Notes * Hannah Castillo APRN, C.N.P. - 05/31/2023 10:00 AM CST CHIEF COMPLAINT / REASON FOR VISIT [facility] Acute Visit Visit Type: In Person: Face to Face SUBJECTIVE HISTORY OF PRESENT ILLNESS Today's narrative history (obtained from Patient and Nursing): I was asked to see him today for open wound on left heel. 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 Open wound measuring 2 cm x 2 cm x 0.1 cm. Periwound erythema. Wound cleansed with saline and dried wound culture obtained. Aquacel AG cut to fit fit wound bed and lightly moistened with saline covered with border dressing.Change bid. Alverto ALEGRE, nurse registered nurse hh case manager assisted with wound care. Past medical/surgical history, social history, medications, and allergies were reviewed and are visible in the Encounter view. Review of systems was performed, as allowable by patient's cognitive status, and incorporating collateral history if applicable. Relevant positives are noted elsewhere in this note, otherwise negative. OBJECTIVE BP 103/66 Pulse 77 Temp 36.2 ??C Resp 18 Wt 72.8 kg SpO2 100% BMI 23.72 kg/m?? PHYSICAL EXAM Constitutional Appearance: Normal appearance. HENT Head: Normocephalic and atraumatic. Right Ear: External ear normal. Left Ear: External ear normal. Mouth/Throat: Mouth: Mucous membranes are dry. Pharynx: Oropharynx is clear. Eyes Conjunctiva/sclera: Conjunctivae normal. Cardiovascular Rate and Rhythm: Normal rate and regular rhythm. Pulses: Normal pulses. Heart sounds: Normal heart sounds. Abdominal General: Bowel sounds are normal. Palpations: Abdomen is soft. Musculoskeletal Cervical back: Normal range of motion and neck supple. Comments: Right BKA Skin General: Skin is warm and dry. Neurological General: No focal deficit present. Mental Status: He is alert and oriented to person, place, and time. Mental status is at baseline. Psychiatric Mood and Affect: Mood normal. Behavior: Behavior normal. Thought Content: Thought content normal. Judgment: Judgment normal. ASSESSMENT / PLAN Full background details regarding problems addressed at today's visit can be found in the HPI. Pertinent changes to the care plan based on today's evaluation are explicitly discussed below, otherwiselisted problems are stable and present management will be continued. 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 PATIENT EDUCATION Ready to learn, no apparent learning barriers were identified; learning preferences include listening. Explained diagnosis and treatment plan; patient/child/caregiver expressed understanding of the content. BILLING Billing based on: Time, including the following tasks: reviewing the electronic medical record, updating the EPIC Problem List, reviewing written facility- provided information, reviewing information in facility EMR, medication reconciliation, obtaining collateral history from facility staff, Interviewing and examining the patient, placing orders, communicating orders to facility. Total time 30 minutes. ILLING DEPARTMENT SUPERVISOR documented in this encounter Miscellaneous Notes * Assessment & Plan Note - Hannah Castillo APRN, C.N.P. 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 ILLING DEPARTMENT SUPERVISOR documented in this encounter Plan of Treatment Not on file documented as of this encounter Visit Diagnoses Diagnosis Pressure Injury (Ulcer) Of Left Heel Stage 3 (HCC)- Primary documented in this encounter Care Teams Ip Attorney Relationship Specialty Start Date End Date Natalio Motta APRN, C.N.P., M.S.N. [address] [place] [phone] PCP - General Internal Medicine 04/10/23 documented as of this encounter
--- OUTSIDE RECORDS SUMMARY | 2023-08-22 09:03 | XMS_ITS | Encounter Summary ---
Author Name Unknown Organization [facility] Address [address] [place] [address] Care Team Providers Care Vp Information Technology Name Role Phone Santosumdarrell Natalio Mishra APRN, C.N.P., M.S.N. Primary C are Provider Reason for Visit * Appointment Request (Routine) - Closed Specialty Diagnoses / Procedures Referred By Edin mishra Referred To Contact Alf Facility Referral ID Status Reason Start Date Expiration Date Visits Re quested Visits Authorized [id number] Closed 06/18/2023 06/17/2024 1 1 Encounter Details Date Type Department Care Team (Latest Contact Info) Description 06/18/2023 3:00 PM BRUSH FINISHER External Outreach Senior Services in [facility] [address] [phone] Hannah Castillo APRN, C.N.P. 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); Dementia (HCC); Congestive Heart Failure (HCC); Atrial Fibrillation Other Persistent (HCC); Atherosclerotic Heart Disease Of [place] Coronary Artery Without Angina Pectoris; 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); Anemia Iron Deficiency; Amputation Toe Status Post Left (HCC); 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); Advanced Care Planning Social History Tobacco Use Types Packs/Day Years [...] Time Taken Comments Blood Pressure 107/66 06/18/2023 1:06 PM BRUSH FINISHER Pulse 78 06/18/2023 1:06 PM BRUSH FINISHER Temperature 36.6 ??C (97.8 ??F) 06/18/2023 1:06 PM CS T Respiratory Rate 16 06/18/2023 1:06 PM BRUSH FINISHER Oxygen Saturation 92% 06/18/2023 1:06 PM BRUSH FINISHER Inhaled Oxygen Concentration - - Weight 75.8 kg (167 lb) 06/18/2023 1:06 PM BRUSH FINISHER Height - - Body Mass Index 24.66 04/12/2023 3:21 PM BRUSH FINISHER documented in this encounter Patient Instructions * Patient Instructions* Hannah Castillo V., RAYNA, C.N.P. - 06/18/2023 3:00 PM BRUSH FINISHER ORDERS and INSTRUCTIONS: Face to face discharge visit done Orders Placed This Encounter acetaminophen (TYLENOL) 325 mg tablet Sig: Take 2 tablets (650 mg total) by mouth 3 (three) times a day. In once daily prn Dispense: 180 tablet Refill: 11 apixaban (ELIQUIS) 5 mg tablet Sig: Take 1 tablet (5 mg total) by mouth 2 (two) times a day. Dispense: 180 tablet Refill: 3 atorvastatin (LIPITOR) 40 mg tablet Sig: Take 1 tablet (40 mg total) by mouth daily. Dispense: 90 tablet Refill: 3 clopidogreL (PLAVIX) 75 mg tablet Sig: Take 1 tablet (75 mg total) by mouth daily. Dispense: 30 tablet Refill: 11 diclofenac sodium (VOLTAREN) 1 % gel Sig: Apply 2 g topically 4 (four) times a day. Apply to right shoulder, right neck, right lower back for pain.. Dispense: 100 g Refill: 0 emollient cream, VANICREAM, Sig: Apply 1 Application topically 2 (two) times a day. Apply to bilateral lower extremities for dry skin. Dispense: 120 g Refill: 0 furosemide (LASIX) 20 mg tablet Sig: Take 1 tablet (20 mg total) by mouth 2 (two) times a day. Dispense: 180 tablet Refill: 3 insulin aspart U-100 (NovoLOG Flexpen U-100 Insulin) 100 unit/mL (3 mL) injection Sig: Inject 8 Units under the skin 3 (three) times a day with meals. Plus sliding scale 150 to 199 give 2 units. 200 to 249 give 4 units. 250 to 299 give 6 units. 300 to 349 give 8 units. 350 to 399 give 10 units. Greater than 399 give 12 units Dispense: 15 mL Refill: 1 insulin glargine (LANTUS) 100 unit/mL injection Sig: Inject 19 Units under the skin every morning. Dispense: 5.7 mL Refill: 1 ketoconazole (NIZORAL) 2 % cream Sig: Apply 1 Application topically 2 (two) times a day as needed for irritation or rash. Dispense: 15 g Refill: 0 metoprolol succinate (TOPROL-XL) 25 mg 24 hr tablet Sig: Take 0.5 tablets (12.5 mg total) by mouth daily. Dispense: 45 tablet Refill: 3 mirtazapine (REMERON) 7.5 mg tablet Sig: Take 1 tablet (7.5 mg total) by mouth at bedtime. Dispense: 90 tablet Refill: 3 spironolactone (ALDACTONE) 25 mg tablet Sig: Take 1 tablet (25 mg total) by mouth daily. Dispense: 90 tablet Refill: 3 triamcinolone (KENALOG) 0.1 % cream Sig: Apply 1 Application topically 2 (two) times a day as needed for irritation. Dispense: 30 g Refill: 0 polyethylene glycol (MIRALAX) 17 gram powder packet Sig: Take 1 packet (17 g total) by mouth daily. Dispense: 90 packet Refill: 3 peg 400-propylene glycol, PF, (SYSTANE) 0.4-0.3 % ophthalmic solution Sig: Administer 2 drops into both eyes at bedtime as needed for dry eyes. Dispense: 1 each Refill: 0 levothyroxine (SYNTHROID, LEVOTHROID) 75 mcg tablet Sig: Take 1 tablet (75 mcg total) by mouth every morning before breakfast. Dispense: 90 tablet Refill: 3 Electronically signed by: Hannah Castillo APRN, C.NLucio 06/18/23 2:09 PM BRUSH FINISHER H FINISHER documented in this encounter Progress Notes * Hannah Castillo APRN, C.NLucio - 06/18/2023 3:00 PM CST CHIEF COMPLAINT / REASON FOR VISIT [facility] Discharge Visit Visit Type: In Person: Face to Face SUBJECTIVE HISTORY OF PRESENT ILLNESS Today's narrative history (obtained from Patient, Nursing, and PT/OT): From record: Rosalina was admitted to [facility] on 04/30 with abdominal pain found secondary to constipation. He had acute kidney injury and was hydrated and furosemide was held with dosage decreased. He also had urine infection and was treated with IV antibiotics. He returned to [facility] on 05/03 to continue therapies. He will discharge to home May. He needs a standard wheelchair, Drop arm commode. Slide board, extended tub transfer bench and gait belt. 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 Cardiology noted that his recent NSTEMI would put him at higher surgical risk, but that there was no intervention is necessary or capable of changing that risk. 04/02/2023: Patient had below knee amputation, right side. #2 Amputation Toe Status Post Left ([facility]) Overview: History of amputation of toe #3 Wound Ankle Open Subsequent Left Overview: 04/25/23: Nursing reported left lower calf/ankle redness. #4 Advanced Care Planning Overview: Full code status #5 Shelter Use Of Insulin Active ([facility]) Overview: On insulin glargine and aspart started during hospitalization December 2022. #6 Hypothyroidism Overview: Component Ref Range & Units 1 mo ago 04/24/23 1 mo ago 04/13/23 2 mo ago 03/11/23 EXT TSH, Sensitive, S 0.27 - 4.20 uIU/mL 16.80 18.20 11.70 #7 Congestive Heart Failure ([facility]) Overview: EF: ECHO with EF 10-20% on [...] right atrial pressure (32 mmHg plus RAP). 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 #12 Hyperkalemia Overview: Lab Results Component Value Date NA 134 (L) 04/11/2023 KSERUM 3.9 04/11/2023 CL 97 (L) 04/11/2023 BICARB 32 (H) 04/11/2023 BICARB 26 04/11/2023 CREATININE 1.21 (H) 04/11/2023 EGFRBLKAA >60 06/23/2021 EGFRNONBLKAA 53 (L) 06/23/2021 BUN 19 04/11/2023 ANIONGAP 11 04/11/2023 GLUCOSE 169 (H) 04/11/2023 CALCIUM 8.7 (L) 04/11/2023 #13 Hyperlipidemia Overview: On atorvastatin #14 Weakness General Overview: This is multifactorial and related to recent hospitalizations and multiple comorbidities. #15 Peripheral Vascular Disease (HCC) Overview: BKA due to PVD and gangrene Past medical/surgical history, social history, medications, and allergies were reviewed and are visible in the Encounter view. Review of systems was performed, as allowable by patient's cognitive status, and incorporating collateral history if applicable. Relevant positives are noted elsewhere in this note, otherwise negative. OBJECTIVE BP 120/70 Pulse 70 Temp 36.6 ??C Resp 16 Wt 75.5 kg SpO2 98% BMI 24.57 kg/m?? PHYSICAL EXAM Vitals and nursing note reviewed. Exam conducted with a bowling ball marker present. Constitutional Appearance: Normal appearance. HENT Head: Normocephalic and atraumatic. Right Ear: External ear normal. Left Ear: External ear normal. Nose: Nose normal. Mouth/Throat: Mouth: Mucous membranes are dry. Pharynx: Oropharynx is clear. Eyes Conjunctiva/sclera: Conjunctivae normal. Cardiovascular Rate and Rhythm: Normal rate and regular rhythm. Pulses: Normal pulses. Heart sounds: Normal heart sounds. Pulmonary Effort: Pulmonary effort is normal. Breath sounds: Normal breath sounds. Abdominal General: Bowel sounds are normal. Palpations: Abdomen is soft. Musculoskeletal Cervical back: Normal range of motion. Comments: Right BKA Skin General: Skin is warm and dry. Capillary Refill: Capillary refill takes 2 to 3 seconds. Neurological General: No focal deficit present. Mental [...] and present management will be continued. 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 He will need a standard wheelchair Mr. Woods was admitted to [facility] April 10 following BK right lower extremity. [...] to continue to provide support to amputation site. The wound bed is clean. A thin layer of silver stat will be applied with a gauze. Change daily. #2 Amputation Toe Status Post Left ([facility]) Assessment & Plan: Stable #3 Wound Ankle Open Subsequent Left Assessment & Plan: Left heel area. 1.3 cm X 2 cm 1.3 cm X 2 cm 06/14/2023 11:55 AM Assessment & Plan: 1: Gently cleanse area with NS. Pat dry. 2. Skin prep to gonsalo-wound. 3. Santyl to wound bed only. 4. Place gauze over wound. 5. cover with island dressing. 6. Change dressing daily. He may be discharged to home with home nursing for wound care for 3 times a week dressing changes. His can change the dressing the rest of the days. 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 He is also on a sliding scale. #6 Hypothyroidism Assessment & Plan: Increase levothyroxine to 50 mcg daily. correction may give two 25 mcg tablets to equal 50 mcg. He will be discharging in a week #7 Congestive Heart Failure ([facility]) Assessment & Plan: Stable on current meds #8 Atrial Fibrillation Other Persistent ([facility]) Assessment & Plan: 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 anticoagulation on apixaban #9 Dementia ([facility]) Assessment & Plan: He has low hearing which could contribute to him not understanding #10 Diabetes Mellitus Type 2 With Diabetic Polyneuropathy ([facility]) Assessment & Plan: Insulin dependent not always compliant with diet. Glargine will be increased to 17 units. #11 Hyperglycemia Assessment & Plan: A1C 7.2 He will follow up with his PCP in [place] #12 Hyperkalemia #13 Hyperlipidemia Assessment & Plan: Stay on statin #14 Weakness General Assessment & Plan: He is getting stronger with therapy. He will continue therapy when he gets his prosthesis. He will have a wheelchair upon discharge. #15 Peripheral Vascular Disease ([facility]) Assessment & Plan: Monotor Other orders - DME Manual wheelchair; Standard, up to 250 lb/114 kg; Skin protection cushion (foam/gel/air); Medically necessary upgraded accessory options; Manual recline back, full, over 80 degrees; Head rest extension for reclining back, Legrests - DME Medical Justification: Manual wheelchair - levothyroxine (SYNTHROID, LEVOTHROID) 50 mcg tablet; Take 1 tablet (50 mcg total) by mouth every morning before breakfast., Starting Sun05/24/2023, Until Sun05/23/2024, Normal - insulin glargine (LANTUS) 100 unit/mL injection; Inject 17 Units under the skin every morning., Starting Sun05/24/2023, Until Sun05/23/2024, Normal - triamcinolone (KENALOG) 0.1 % cream; Apply 1 Application topically 2 (two) times a day as needed for irritation., Starting Sun05/24/2023, Normal - spironolactone (ALDACTONE) 25 mg tablet; Take 1 tablet (25 mg total) by mouth daily., Starting Sun05/24/2023, Until Sun05/23/2024, Print - mirtazapine (REMERON) 7.5 mg tablet; Take 1 tablet (7.5 mg total) by mouth at bedtime., Starting Sun05/24/2023, Until Sun05/23/2024, Normal - metoprolol succinate (TOPROL-XL) 25 mg 24 hr tablet; Take 0.5 tablets (12.5 mg total) by mouth daily., Starting Sun05/24/2023, Until Sun05/23/2024, Normal - insulin aspart U-100 (NovoLOG Flexpen U-100 Insulin) 100 unit/mL (3 mL) injection; Inject 6 Unitsunder the skin 3 (three) times a day with meals. Plus sliding scale 150 to 199 give 2 units. 200 to249 give 4 units. 250 to 299 give 6 units. 300 to 349 give 8 units. 350 to 399 give 10 units. Greater than 399 give 12 units, Starting Sun05/24/2023, Until Sun05/23/2024, Normal - furosemide (LASIX) 20 mg tablet; Take 1 tablet (20 mg total) by mouth 2 (two) times a day., Starting Sun05/24/2023, Until Sun05/23/2024, Normal - apixaban (ELIQUIS) 5 mg tablet; Take 1 tablet (5 mg total) by mouth 2 (two) times a day., Starting Sun05/24/2023, Until Sun05/23/2024, Normal - atorvastatin (LIPITOR) 40 mg tablet; Take 1 tablet (40 mg total) by mouth daily., Starting Niurka 05/24/2023, Until Sun05/23/2024, Normal - nitroglycerin (NITROSTAT) 0.4 mg SL tablet; Place 1 tablet (0.4 mg total) under the tongue every 5 (five) minutes as needed for chest pain., Starting Sun05/24/2023, Until Sun05/23/2024 at 2359, NormalDispense in original container - multivitamin tablet; Take 1 tablet by mouth daily., Starting Sun05/24/2023, Until Sun05/23/2024, Normal - ketoconazole (NIZORAL) 2 % cream; Apply 1 Application topically 2 (two) times a day as needed forirritation or rash., Starting Sun05/24/2023, Normal # 16 Disposition Darek will discharge to home on 06/20/23 He will need a wheelchair and Home nursing for wound care. Medications for home were ordered. Follow up with PCP in [place] and [facility] as scheduled. PATIENT EDUCATION Ready to learn, no apparent [...] orders, communicating orders to facility. Total time 50 minutes. 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 Hypertension Heart Disease With Congestive Heart Failure (HCC) Hyperlipidemia Hyperglycemia 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 [address] [place] [phone] PCP - General Internal Medicine 04/10/23 documented as of this encounter
--- OUTSIDE RECORDS SUMMARY | 2023-08-22 09:03 | XMS_ITS | Encounter Summary ---
Author Name Unknown Organization [facility] Address [address] [place] [address] Care Team Providers Care Electronics Instructor Name Role Phone SantosumJessica ramírezNataliotashi Mishra APRN, C.N.P., M.S.N. Primary C are Provider Reason for Visit * Appointment Request (Routine) - Closed Specialty Diagnoses / Procedures Referred By Edin mishra Referred To Contact [facility] Facility Referral ID Status Reason Start Date Expiration Date Visits Re quested Visits Authorized [id number] Closed 06/07/2023 06/06/2024 1 1 Encounter Details Date Type Department Care Team (Latest Contact Info) Description 06/07/2023 3:00 PM RESAW CARRIAGE OPERATOR External Outreach Senior Services in [facility] [address] [place] [phone] Hannah Castillo APRN, C.N.P. 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) (Primary Dx) Social History Tobacco Use [...] Sign Reading Time Taken Comments Blood Pressure 100/68 06/07/2023 2:42 PM RESAW CARRIAGE OPERATOR Pulse 78 06/07/2023 2:42 PM RESAW CARRIAGE OPERATOR Temperature 36.2 ??C (97.1 ??F) 06/07/2023 2:42 PM CS T Respiratory Rate 18 06/07/2023 2:42 PM RESAW CARRIAGE OPERATOR Oxygen Saturation 99% 06/07/2023 2:42 PM RESAW CARRIAGE OPERATOR Inhaled Oxygen Concentration - - Weight 76.1 kg (167 lb 12.8 oz) 06/07/2023 2:42 PM RESAW CARRIAGE OPERATOR Height - - Body Mass Index 24.78 04/12/2023 3:21 PM RESAW CARRIAGE OPERATOR documented in this encounter Patient Instructions * Patient Instructions* Hannah Castillo APRN, C.N.P. - 06/07/2023 3:00 PM RESAW CARRIAGE OPERATOR ORDERS and INSTRUCTIONS: Change the NovoLog to 8 units before meals. Continue blood sugar checks. Electronically signed by: Hannah Castillo APRN, C.N.P. 06/07/23 2:57 PM RESAW CARRIAGE OPERATOR W CARRIAGE OPERATOR documented in this encounter Progress Notes * Hannah Castillo APRN, C.N.P. - 06/07/2023 3:00 PM CST CHIEF COMPLAINT / REASON FOR VISIT [facility] Follow Up Visit Visit Type: In Person: Face to Face SUBJECTIVE HISTORY OF PRESENT ILLNESS Today's narrative history (obtained from Patient and Nursing): I was asked to see him today for low blood sugars. His blood sugar was 72 this morning. He was asymptomatic. He was given 1/2 carton of boost before breakfast to augment his blood sugar. He is being treated for MRSA and his blood sugars have been lower. He has had no hypoglycemic reactions. 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 Review of systems was performed, as allowable by patient's cognitive status, and incorporating collateral history if applicable. Relevant positives are noted elsewhere in this note, otherwise negative. OBJECTIVE BP 100/68 Pulse 78 Temp 36.2 ??C Resp 18 Wt 76.1 kg SpO2 99% BMI 24.78 kg/m?? PHYSICAL EXAM Vitals and nursing note reviewed. Constitutional Appearance: Normal appearance. HENT Head: Normocephalic [...] are normal. Palpations: Abdomen is soft. Musculoskeletal General: Normal range of motion. Cervical back: Normal range of motion. Skin General: Skin is warm and dry. [...] and present management will be continued. 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 He is currently on antibiotic therapy. Blood sugars have been running lower since the wound has been treated. BS 72 this morning. Meal time insulin will be decreased to 8 units. OK to give after meals if BS 70or below. The goal is not tight glycemic control but to prevent hypoglycemia. PATIENT EDUCATION Ready to learn, no apparent learning barriers were identified; learning preferences include listening. Explained diagnosis and treatment plan; patient/child/caregiver expressed understanding of the content. BILLING Billing based on: Time, including the following tasks: reviewing the electronic medical record, updating the EPIC Problem List, reviewing written facility- provided information, medication reconciliation, obtaining collateral history from family member(s), Interviewing and examining the patient, placing orders, communicating orders to facility. Total time 30 minutes. W CARRIAGE OPERATOR documented in this encounter Miscellaneous Notes * Assessment & Plan Note - Hannah Castillo APRN C.N.P. 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 He is currently on antibiotic therapy. Blood sugars have been running lower since the wound has been treated. BS 72 this morning. Meal time insulin will be decreased to 8 units. OK to give after meals if BS 70or below. The goal is not tight glycemic control but to prevent hypoglycemia. 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 [address] [place] [phone] PCP - General Internal Medicine 04/10/23 documented as of this encounter
--- OUTSIDE RECORDS SUMMARY | 2023-08-22 09:03 | XMS_ITS | Encounter Summary ---
Author Name Unknown Organization [facility] Address [address] [place] [address] Care Team Providers Care Driller Helper Name Role Phone Natalio Motta APRN, C.N.PCarito, M.S.N. Primary C are Provider Reason for Visit * Reason Comments Follow-up on blood sugar management * Outpatient (Routine) - Closed Specialty Diagnoses / Procedures Referred By Edin salmeron Referred To Contact [facility] Natalio Motta APRN, C.N.PCarito, M.S.N. [address] [place] [phone] [facility] Region Referral ID Status Reason Start Date Expiration Date Visits Re quested Visits Authorized [id number] Closed 05/22/2023 05/21/2026 1 1 Encounter Details Date Type Department Care Team (Latest Contact Info) Description 05/29/2023 10:00 AM PROGRAM ADMIN External Outreach Senior Services in [facility] [address] [place] [phone] Natalio Motta APRN C.N.PCarito, M.S.N. 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); Amputation Toe Status Post Left (HCC); Dementia (HCC) Social History Tobacco Use Types Packs/Day Years [...] Sign Reading Time Taken Comments Blood Pressure 102/58 05/29/2023 4:07 PM PROGRAM ADMIN Pulse 86 05/29/2023 4:07 PM PROGRAM ADMIN Temperature 36.2 ??C (97.1 ??F) 05/29/2023 4:07 PM CS T Respiratory Rate - - Oxygen Saturation 100% 05/29/2023 4:07 PM PROGRAM ADMIN ra Inhaled Oxygen Concentration - - Weight 75.8 kg (167 lb) 05/29/2023 4:07 PM PROGRAM ADMIN Height - - Body Mass Index 24.66 04/12/2023 3:21 PM PROGRAM ADMIN documented in this encounter Progress Notes * Natalio Motta, RAYNA, C.N.P., M.S.N. - 05/29/2023 10:00 AM CST CHIEF COMPLAINT / REASON FOR VISIT [facility] Acute Visit Visit Type: In Person: Face to Face SUBJECTIVE Today's narrative history (obtained from Patient and Nursing): HISTORY OF PRESENT ILLNESS Darek Bowers is a 83 y.o. male resident at [facility]. 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 Today's narrative history (obtained from Patient and Nursing): Patient is seen today for follow-up on high blood sugar values and recently adjusted insulin. Nursing staff reported patient has been eating more carbohydrates, candies, brownies and deserts (patientconfirmed he has been enjoying the deserts especially the pie). 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 #3 Amputation Toe Status Post Left ([facility]) Overview: History of amputation of toe #4 Dementia ([facility]) Overview: No documented dementia or behaviors Past medical/surgical history, social history, medications, and allergies were reviewed and are visible in the Encounter view. Review of systems was performed, as allowable by patient's cognitive status, and incorporating collateral history if applicable. Relevant positives are noted elsewhere in this note, otherwise negative. OBJECTIVE BP 102/58 Pulse 86 Temp 36.2 ??C Wt 75.8 kg SpO2 100% Comment: ra BMI 24.66 kg/m?? PHYSICAL EXAM Constitutional General: He is not in acute distress. He is seated on wheelchair. Appearance: Normal appearance. Mouth: Mucous membranes are moist. Heart: Regular rate and rhythm. Lungs: Clear without wheeze crackle or rhonchus. Abdomen: Normal bowel sounds. Musculoskeletal Right lower leg: No edema. Right below-knee amputation with incision site intact, no redness, no increasing swelling or drainage. Immobilizer on the right lower extremity. Left lower leg: No edema. Left lower extremity boot applied. Skin General: Skin is warm and very dry. ASSESSMENT / PLAN Full background details regarding problems addressed at today's visit can be found in the HPI. Pertinent changes to the care plan based on today's evaluation are explicitly discussed below, otherwiselisted problems are stable and present management will be continued. #1 Diabetes Mellitus Type 2 With Diabetic Polyneuropathy (HCC) Assessment & Plan: Patient's blood sugar continued to be on the high side. Nursing mentioned he continues to be non-compliant with his diet. Per nursing,patient randomly will eat candies, brownies and snacks high in sugar/carbohydrate. Patient endorsed he likes the pie at the facility the pie is always good but i will work on turning it down for now on. Patient told me that while at home, his will not let him eat high carb and sugar diets like he does at the SNF. I have discussed with nursing on encouraging patient to the compliant with diabetic diet and that dietary should not offer deserts rich in high sugar. Patient blood sugar is >200-502. Therefore, we will increase his insulin has been to 9 units with meals and insulin Glargine will be increased to 19 units since he has ongoing wound that need to be healed. We will follow-up next week. Also, since patient will be discharging home soon, I recommended he sees his endocrinology as soon as possible. 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 Plus sliding scale 150 to 199 give 2 units. 200 to249 give 4 units. 250 to 299 give 6 units. 300 to 349 give 8 units. 350 to 399 give 10 units. Greater than 399 give 12 units, Starting Sun05/29/2023, Until Sun05/28/2024, Normal - insulin glargine (LANTUS) 100 unit/mL injection; Inject 19 Units under the skin every morning., Starting Sun05/29/2023, Until Niurka 06/28/2023, Normal PATIENT EDUCATION Ready to learn, no apparent learning barriers were identified; learning preferences include listening. Explained diagnosis and treatment plan; patient/child/caregiver expressed understanding of the content. BILLING Billing based on: Time, including the following tasks: reviewing the electronic medical record, updating the EPIC Problem List, obtaining collateral history from facility staff, obtaining collateral history from family member(s), Interviewing and examining the patient, placing orders, communicatingorders to facility, providing education/counseling to patient, family, and/or facility staff. Totaltime 20 minutes. RAM ADMIN documented in this encounter Miscellaneous Notes * Assessment & Plan Note - Natalio Motta APRN, C.Cory, M.S.N. - 05/29/2023 7:45 PM CSTAssociated Problem(s): Diabetes Mellitus Type 2 With Diabetic Polyneuropathy (HCC) Patient's blood sugar continued to be on the high side. Nursing mentioned he continues to be non-compliant with his diet. Per nursing,patient randomly will eat candies, brownies and snacks high in sugar/carbohydrate. Patient endorsed he likes the pie at the facility the pie is always good but i will work on turning it down for now on. Patient told me that while at home, his will not let him eat high carb and sugar diets like he does at the SNF. I have discussed with nursing on encouraging patient to the compliant with diabetic diet and that dietary should not offer deserts rich in high sugar. Patient blood sugar is >200-502. Therefore, we will increase his insulin has been to 9 units with meals and insulin Glargine will be increased to 19 units since he has ongoing wound that need to be healed. We will follow-up next week. Also, since patient will be discharging home soon, I recommended he sees his endocrinology as soon as possible. 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 [address] [place] [phone] PCP - General Internal Medicine 04/10/23 documented as of this encounter
--- OUTSIDE RECORDS SUMMARY | 2023-08-22 09:03 | XMS_ITS | Encounter Summary ---
Author Name Unknown Organization [facility] Address [address] [place] [address] Care Team Providers Care Plumbing Engineer Name Role Phone Natalio Motta APRN C.N.PCarito, M.S.N. Primary C are Provider Reason for Visit * Appointment Request (Routine) - Closed Specialty Diagnoses / Procedures Referred By Edin salmeron Referred To Contact Senior Care Facility Referral ID Status Reason Start Date Expiration Date Visits Re quested Visits Authorized [id number] Closed 06/05/2023 06/04/2024 1 1 Encounter Details Date Type Department Care Team (Latest Contact Info) Description 06/05/2023 3:00 PM PILE TRIMMER External Outreach Senior Services in [facility] [address] [place] [phone] Natalio Motta APRN C.N.P., M.S.N. 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 - 06/05/2023 3:00 PM CST CHIEF COMPLAINT / REASON FOR VISIT [facility] Acute Visit Visit Type: In Person: Face to Face SUBJECTIVE Today's narrative history (obtained from Patient and Nursing): HISTORY OF PRESENT ILLNESS Darek Bowers is a 83 y.o. male resident at [facility]. 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 Nursing/patient denied fatigue, nausea, vomiting, muscle spasm, numbness or tingling. Today's narrative history (obtained from Patient and Nursing): Patient is seen today to review lab result and evaluate for symptoms of hypothyroidism. TSH was elevated today but patient continued to be asymptomatic. Nursing confirmed given the medication appropriately every morning without other medications. The following medical problems were actively reviewed (including updating overview sections as necessary) and addressed as part of today's visit: #1 Hypothyroidism Overview: Lab Results Component Value Date TSH 14.20 (H) 06/05/2023 Component Ref Range & Units 1 mo ago 04/24/23 1 mo ago 04/13/23 2 mo ago 03/11/23 EXT TSH, Sensitive, S 0.27 - 4.20 uIU/mL 16.80 18.20 11.70 Levothyroxine 50mcg increase to 75mcg. #2 Weakness General Overview: This is multifactorial and related to recent hospitalizations and multiple comorbidities. #3 Amputation Toe Status Post Left (HCC) Overview: History of amputation of toe #4 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 [...] Patient had below knee amputation, right side. Past medical/surgical history, social history, medications, and allergies were reviewed and are visible in the Encounter view. Review of systems was performed, as allowable by patient's cognitive status, and incorporating collateral history if applicable. Relevant positives are noted elsewhere in this note, otherwise negative. OBJECTIVE BP 120/70 Pulse 81 Temp 36.3 ??C Resp 18 Wt 76.6 kg SpO2 100% BMI 24.93 kg/m?? PHYSICAL EXAM Constitutional General: He is [...] and present management will be continued. #1 Hypothyroidism Assessment & Plan: TSH value improved compared to prior value of 16.0 a month ago. Resident /nursing denied symptoms of hypothyroidism. Last T4 was 0.92 in April 2023. senior vice president and chief information officer confirmed levothyroxine is given every morning (6am) without other medications. Therefore, we will increase levothyroxine 50mcg [id number] and rechecked TSH in 6 weeks. Nursing instructed to continue monitoring for symptoms of hypothyroidism and contact [facility] provider if any concerns. Orders: - S-TSH (Thyroid-Stimulating Hormone - Sensitive); Future; Expected date: 07/20/2023 #2 Weakness General Assessment & Plan: Denied weakness. We will continue therapy. 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 Totaltime 20 minutes. TRIMMER documented in this encounter Miscellaneous Notes * Assessment & Plan Note - Natalio Motta APRN C.N.P., M.S.N. - 06/05/2023 9:26 PM CSTAssociated Problem(s): Weakness General Denied weakness. We will continue therapy. TRIMMER * Assessment & Plan Note - Natalio Motta APRN, C.N.P., M.S.N. - 06/05/2023 9:25 PM CSTAssociated Problem(s): Hypothyroidism TSH value improved compared to prior value of 16.0 a month ago. Resident /nursing denied symptoms of hypothyroidism. Last T4 was 0.92 in April 2023. senior vice president and chief information officer confirmed levothyroxine is given every morning (6am) without other medications. Therefore, we will increase levothyroxine 50mcg [id number] and rechecked TSH in 6 weeks. Nursing instructed to continue monitoring for symptoms of hypothyroidism and contact [facility] provider if any concerns. 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 [facility] [phone] PCP - General Internal Medicine 04/10/23 documented as of this encounter
--- OUTSIDE RECORDS SUMMARY | 2023-08-22 09:03 | XMS_ITS | Encounter Summary ---
Author Name Unknown Organization [facility] Address [address] [place] [address] Care Team Providers Care Ironworker Wire Fence Erector Name Role Phone Jessica Mottatashi Mishra APRN, C.N.P., M.S.N. Primary C are Provider Encounter Details Date Type Department Care Team (Late st Contact Info) Description 06/03/2023 Clinical Communication Senior Services in [facility] [address] [place] [phone] Laura Grover M.D. [address], [place] [phone] Social History Tobacco Use Types Packs/Day Years [...] on file documented as of this encounter Miscellaneous Notes * Telephone Encounter - Laura Enriquez M.D. - 06/03/2023 3:16 PM CST Left heel wound is growing MRSA sensitive to TMP/SMX Bactrim DS 1 PO BID for 7 days Hold spironolactone for 7 days ORDERS and INSTRUCTIONS: Orders Placed This Encounter sulfamethoxazole-trimethoprim (BACTRIM DS) 800-160 mg per tablet Sig: Take 1 tablet by mouth 2 (two) times a day. Dispense: 14 tablet Refill: 0 Electronically signed by: Laura Enriquez M.D. 06/03/23 3:18 PM WAITER/WAITRESS FORMAL ER/WAITRESS FORMAL documented in this encounter Plan of Treatment Not on file documented as of this encounter Visit Diagnoses Not on filedocumented in this encounter Care Teams Ironworker Wire Fence Erector Relationship Specialty Start Date End Date Natalio Motta APRN, C.N.P., M.S.N. [address] [place] [phone] PCP - General Internal Medicine 04/10/23 documented as of this encounter
--- OUTSIDE RECORDS SUMMARY | 2023-08-22 09:03 | XMS_ITS | Encounter Summary ---
Author Name Unknown Organization [facility] Address [address] [place] [address] Care Team Providers Care Combustion Engineer Name Role Phone SantosumNatalio ramírez APRN C.N.PCarito, M.S.N. Primary C are Provider Reason for Visit * Reason Onset Date Comments Discharge Notice 05/23/2023 Encounter Details Date Type Department Care Team (Latest Contact Info) Description 05/23/2023 Clinical Communication Division of [facility], [facility] in [place], [place] [address] [place] [phone] Natalio Motta APRN, C.N.P., M.S.N. [address] [place] [phone] Discharge Notice Social History Tobacco Use Types Packs/Day Years [...] on file documented as of this encounter Plan of Treatment Not on file documented as of this encounter Visit Diagnoses Not on filedocumented in this encounter Care Teams Combustion Engineer Relationship Specialty Start Date End Date Natalio Motta APRN, C.N.P., M.S.N. [address] [place] [phone] PCP - General Internal Medicine 04/10/23 documented as of this encounter
--- OUTSIDE RECORDS SUMMARY | 2023-08-22 09:03 | XMS_ITS | Encounter Summary ---
Author Name Unknown Organization [facility] Address [address] [place] [address] Care Team Providers Care Supervisor [employer] Name Role Phone Natalio Motta APRN, C.N.P., M.S.N. Primary C are Provider Reason for Referral * Outpatient (Routine) - Closed Specialty Diagnoses / Procedures Referred By Edin salmeron Referred To Contact [facility] Natalio Motta APRN, C.N.P., M.S.N. 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 [address] [place] [phone] [facility] Region Referral ID Status Reason Start Date Expiration Date Visits Re quested Visits Authorized [id number] Closed 05/20/2023 05/19/2026 1 1 Encounter Details Date Type Department Care Team (Latest Contact Info) Description 05/22/2023 10:00 AM EGG SORTER External Outreach [facility] [address], [place] [address] Laura Wolfe M.D. [address] [place] [phone] Natalio Motta APRN, C.N.P., M.S.N. 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); Unspecified Systolic (Congestive) Heart Failure (HCC); Dementia (HCC); Atrial Fibrillation Other Persistent (HCC); Peripheral Vascular Disease (HCC); Weakness General Social History Tobacco Use Types Packs/Day Years [...] Sign Reading Time Taken Comments Blood Pressure 125/67 05/22/2023 6:20 PM EGG SORTER Pulse 83 05/22/2023 6:20 PM EGG SORTER Temperature 36.9 ??C (98.4 ??F) 05/22/2023 6 :20 PM EGG SORTER Respiratory Rate 18 05/22/2023 6:20 PM EGG SORTER Oxygen Saturation 99% 05/22/2023 6:2 0 PM EGG SORTER 0.75 L nasal cannula Inhaled Oxygen Concentration - - Weight 76.5 kg (168 lb 9.6 oz) 05/22/2023 6:20 PM EGG SORTER Height - - Body Mass Index 24.9 04/12/2023 3:21 PM EGG SORTER documented in this encounter Progress Notes * Natalio Motta APRN, C.N.P., M.S.N. - 05/22/2023 10:00 AM CST CHIEF COMPLAINT / REASON FOR VISIT [facility] Acute Visit Visit Type: In Person: Face to Face SUBJECTIVE Today's narrative history (obtained from Patient and Nursing): HISTORY OF PRESENT ILLNESS Darek Bowers is a 83 y.o. male resident at [facility]. 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 Today's narrative history (obtained from Patient and Nursing): Patient is seen today per MD request to review blood sugar and adjust insulin. Patient's feel he has been eating more carbohydrates since [facility] and will like dietary visit to discuss food options. 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 Managed with nitroglycerin. 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 #5 Unspecified Systolic (Congestive) Heart Failure (HCC) #6 Dementia (HCC) #7 Atrial Fibrillation Other Persistent (HCC) Overview: Diagnosis: 12/13/2022 Treatment: Well controlled with metoprolol, plavix and apixaban CHADS2-Vasc Score: 6 Anticoagulation: Apixaban #8 Peripheral Vascular Disease (HCC) #9 Weakness General Overview: This is multifactorial and related to recent hospitalizations and multiple comorbidities. Past medical/surgical history, social history, medications, and allergies were reviewed and are visible in the Encounter view. Review of systems was performed, as allowable by patient's cognitive status, and incorporating collateral history if applicable. Relevant positives are noted elsewhere in this note, otherwise negative. OBJECTIVE BP 125/67 Pulse 83 Temp 36.9 ??C Resp 18 Wt 76.5 kg SpO2 99% Comment: 0.75 L nasal cannula BMI 24.90 kg/m?? PHYSICAL EXAM Constitutional General: He is [...] Diabetic Polyneuropathy (HCC) Assessment & Plan: Blood sugar continued to be elevated mostly in the evenings -530-9pm (in 400s) while blood sugar inthe mornings and noon range from 164-67. Nursing/patient mentioned possible hyperglycemia due to snacking after dinner (sometimes per patient). Patient//nursing denied hypoglycemia. His mentioned he was on insulin aspart sliding scale at home and was counting his carbohydrate. Both patientand mentioned he has been eating more carb foods at the SNF and will like the dietitian to visit with them on counting carbohydrates (like he did at home). With consistent elevated blood sugar to day, we will adjust insulin regimen. Insulin glargine 12 units every morning to insulin glargine 15 units every morning and insulin aspart 4 units 3 times daily with meals to insulin aspart 6 units 3 times daily with meals. Follow-up with [facility] IN[facility] next week. Dietitian/dietary to visit with patient and to discuss food options. 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) #5 Unspecified Systolic (Congestive) Heart Failure (HCC) #6 Dementia (HCC) #7 Atrial Fibrillation Other Persistent (HCC) #8 Peripheral Vascular Disease (HCC) #9 Weakness General Other orders - insulin glargine (LANTUS) 100 unit/mL injection; Inject 15 Units under the skin every morning., Starting Sun05/22/2023, No Print - insulin aspart U-100 (NovoLOG Flexpen U-100 [...] Greater than 399 give 12 units, Starting Sun05/22/2023, No Print - [facility] office visit (clinic); Future; Expected date: 05/29/2023 PATIENT EDUCATION Ready to learn, no apparent [...] to patient, family, and/or facility staff. Totaltime 30 minutes. SORTER documented in this encounter Miscellaneous Notes * Assessment & Plan Note - Natalio Motta APRN, C.N.P., M.S.N. 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 Nursing/patient mentioned possible hyperglycemia due to snacking after dinner (sometimes per patient). Patient//nursing denied hypoglycemia. His mentioned he was on insulin aspart sliding scale at home and was counting his carbohydrate. Both patientand mentioned he has been eating more carb foods at the SNF and will like the dietitian to visit with them on counting carbohydrates (like he did at home). With consistent elevated blood sugar to day, we will adjust insulin regimen. Insulin glargine 12 units every morning to insulin glargine 15 units every morning and insulin aspart 4 units 3 times daily with meals to insulin aspart 6 units 3 times daily with meals. Follow-up with [facility] INVESTIGATOR next week. Dietitian/dietary to visit with patient and to discuss food options. 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 [address] [place] [phone] PCP - General Internal Medicine 04/10/23 documented as of this encounter
--- OUTSIDE RECORDS SUMMARY | 2023-08-22 09:03 | XMS_ITS | Encounter Summary ---
Author Name Unknown Organization [facility] Address [address] [place] [address] Care Team Providers Care Nocturnist Physician Name Role Phone Natalio Motta APRN C.N.PCarito, M.S.N. Primary C are Provider Reason for Visit * Reason Onset Date Comments skilled nursing medication reconciliation Urinary Symptom 06/11/2023 * Appointment Request (Routine) - Closed Specialty Diagnoses / Procedures Referred By Edin salmeron Referred To Contact [facility] Referral ID Status Reason Start Date Expiration Date Visits Re quested Visits Authorized [id number] Closed 04/10/2023 04/09/2024 1 1 Encounter Details Date Type Department Care Team (Latest Contact Info) Description 04/11/2023 3:00 PM HEALTH INFORMATION SYSTEMS TECHNICIAN External Outreach [facility] in [facility] [address] [place] [phone] Natalio Motta APRN, C.NLucio, M.S.N. 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; Halfway Stay Certification Exam; Polypharmacy; Advanced Care Planning; Hypothyroidism; Dysuria Social History Tobacco Use Types Packs/Day Years Used Date Smoking Tobacco: Never Assessed Nutrition Answer Date Recorded Nutrition: EVOO Fat [...] Sign Reading Time Taken Comments Blood Pressure 112/72 04/12/2023 4:22 PM HEALTH INFORMATION SYSTEMS TECHNICIAN Pulse 85 04/12/2023 4:22 PM HEALTH INFORMATION SYSTEMS TECHNICIAN Temperature 36.6 ??C (97.8 ??F) 04/12/2023 4:22 PM CS T Respiratory Rate 18 04/12/2023 4:22 PM HEALTH INFORMATION SYSTEMS TECHNICIAN Oxygen Saturation 97% 04/12/2023 4:22 PM HEALTH INFORMATION SYSTEMS TECHNICIAN Room air Inhaled Oxygen Concentration - - Weight - - Height - - Body Mass Index - - documented in this encounter Progress Notes * Natalio Motta APRN, C.NLucio, M.S.N. - 04/11/2023 3:00 PM CST Encounter created to obtain urine specimen. TH INFORMATION SYSTEMS TECHNICIAN documented in this encounter H&P Notes * Natalio Motta APRN C.N.P. - 04/11/2023 3:00 PM CST Images from the original note were not included. CHIEF COMPLAINT / REASON FOR VISIT [facility] Follow Up Visit Visit Type: In Person: Face to Face SUBJECTIVE HISTORY OF PRESENT ILLNESS Darek Bowers is a 82 y.o. male resident at [facility]. 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 Per EHR, patient has been dealing with foot ulcers and worsening gangrene of his third right toe since he has had his NSTEMI back in November,. Patient's reported they have been following at a wound clinic. They recently saw a vascular surgeon down at [place] who recommended Ortho foot to see him but that appointment cannot be made until April. He was seen again in wound clinic on 03/08/2023 at the outside hospital and felt the wound to be worsening so transferred to [facility] ED. 03/08/2023: In the ED, podiatry and vascular [...] Patient had below knee amputation, right side. ID consulted, continued IV Vancomycin and Unasyn, After BKA, stopped antibiotics During hospitalization, Entresto and Aldactone stopped while Toprol dose and lasix dose were reduced due to hypotension and ALEX. Also, Insulin dose was adjusted. There was a new diagnosis of hypothyroidism, TSH 11.7, T4 0.82 and patient was started on levothyroxine 25 mcg/day. Will need TSH checked in 6-8 weeks Today's narrative history (obtained from Patient, Nursing, and Family Member): Patient is seen today for shelter medication reconciliation with his in attendance. Patient//nursing reported coccyx stage 1 pressure sore the has been applying barrier cream and offloading. Per PT/, patient has been able to get up 2 times with PT today and E tolerated it well. Hereported inadequate sleep at night due to his bottom bothering him and adjusting to the bed. Otherwise, he mentioned pain is well controlled. He endorses fair appetite, moving her bowel, have no urinary concerns at this time. Patient denies headache, dizziness, lightheadedness, fever, chills, cough, wheezing, chest pain, and palpitation. Denies nausea, vomiting, and rated pain at 0/10. Follow-Up recommendations After Hospital Follow Up Appointment(s) We have arranged follow up with Dr. Claude Nails for incision check of right leg amputation at the [facility], 2nd Floor[address] [place] [address] on 05/11/2023 at 10:00 AM. Please see the After Visit Summary for additional information. Please minutes early. Call [facility] at [phone] to reschedule as needed or for further directions. When to follow up: 4 to 6 weeks The following medical problems were actively reviewed [...] side. #2 Amputation Toe Status Post Left (HCC) #3 Congestive Heart Failure (HCC) Overview: EF: ECHO with EF 10-20% on [...] right atrial pressure (32 mmHg plus RAP). #4 Weakness General Overview: This is multifactorial and related to recent hospitalizations and multiple comorbidities. #5 Anemia Overview: Lab Results Component Value Date WBC 9.0 04/11/2023 HGB 7.8 (L) 04/11/2023 HCT 24.9 (L) 04/11/2023 MCV 95 04/11/2023 PLT 381 04/11/2023 #6 Anemia Iron Deficiency Overview: Previously identified iron deficiency anemia receiving iron infusions. 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) Overview: Lab Results Component Value Date HGBA1C 7.7 (H) 02/06/2023 Goal HgbA1C: < 8.0 Oral: None Injectable: Insulin aspart and glargine BG check frequency: 4 times daily #10 Failure Renal Acute (Acute Kidney Injury) (HCC) Overview: Lab Results Component Value Date CREATININE 1.21 (H) 04/11/2023 #11 Hyperkalemia Overview: Lab Results Component Value Date NA 134 (L) 04/11/2023 KSERUM 3.9 04/11/2023 CL 97 (L) 04/11/2023 BICARB 32 (H) 04/11/2023 BICARB 26 04/11/2023 CREATININE 1.21 (H) 04/11/2023 EGFRBLKAA >60 06/23/2021 EGFRNONBLKAA 53 (L) 06/23/2021 BUN 19 04/11/2023 ANIONGAP 11 04/11/2023 GLUCOSE 169 (H) 04/11/2023 CALCIUM 8.7 (L) 04/11/2023 #12 Hyperlipidemia Overview: Lipids 04/11/2022 12/08/2020 11/25/2019 12/02/2018 12:59 PM 11:33 AM 10:37 AM 10:38 AM CHOL 134 130 124 141 TRIG 97 94 97 129 HDL 40 41 43 41 TTLCHOLHDLRT 3.35 3.17 2.88 3.44 #13 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 #15 Polypharmacy Overview: All medications reviewed at least bimonthly for adverse events, interactions, and continued indication/appropriateness. Reduction as able. #16 Advanced Care Planning Overview: Full code status #17 Hypothyroidism Overview: Lab Results Component Value Date TSH 11.70 (H) 03/11/2023 Managed with levothyroxine daily. Past medical/surgical history, social history, medications, and allergies were reviewed and are visible in the Encounter view. Review of systems was performed, as allowable by patient's cognitive status, and incorporating collateral history if applicable. Relevant positives are noted elsewhere in this note, otherwise negative. OBJECTIVE BP 112/72 Pulse 85 Temp 36.6 ??C Resp 18 SpO2 97% Comment: Room air Constitutional General: He is not in acute distress. Lying in bed with present. Appearance: Normal appearance. Comments: HENT Right Ear: External ear normal. Left Ear: External ear normal. Mouth: Mucous membranes are moist. Cardiovascular Rate and Rhythm: Normal rate and regular rhythm. Heart sounds: Normal heart sounds. Pulmonary Effort: Pulmonary effort is normal. Breath sounds: Normal breath sounds. Abdominal General: Bowel sounds are normal. Palpations: Abdomen is soft. Musculoskeletal Right lower leg: No edema. Left lower leg: No edema. Right below-knee amputation with incision site intact, no redness, no increasing swelling with very minimal drainage. BKA site wrapped with compression wraps and immobilizerapplied. Skin General: Skin is warm and dry. Neurological Mental Status: He is alert and oriented. Mental status is at baseline. Psychiatric Mood and Affect: Mood normal. ASSESSMENT / PLAN Full background details regarding problems addressed at today's visit can be found in the HPI. Pertinent changes to the care plan based on today's evaluation are explicitly discussed below, otherwiselisted problems are stable and present management will be continued. #1 Congestive Heart Failure (HCC) Assessment & Plan: No admission weight yet. Nursing to check patient's weight #2 Weakness General Assessment & Plan: Verbalized improvement with weakness. We will continue therapy. Orders: - S-TSH (Thyroid-Stimulating Hormone - Sensitive); Future; Expected date: 05/02/2023 - T4 (Thyroxine), Total Only; Future; Expected date: 05/02/2023 #3 Anemia Assessment & Plan: CBC reordered. Denied dizziness, lightheadedness, shortness of breaths or palpitation. Orders: - CBC without Differential; Future; Expected date: 04/17/2023 #4 Anemia Iron Deficiency Assessment & Plan: Stable. Denied dizziness, lightheadedness, shortness of breaths and palpitation. #5 Atrial Fibrillation Other Persistent (HCC) Assessment & Plan: HR well controlled ranging from 82-85. Continue care plan. 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 Currently on Glipizide, showed and long-acting insulins. Blood sugar check 4 times daily. Nursing/patient denied episodes of hypoglycemia. We will continue care plan. #8 Failure Renal Acute (Acute Kidney Injury) (HCC) #9 Hyperkalemia Assessment & Plan: BMP ordered. 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 Continue care plan. #12 Halfway Stay Certification Exam Assessment & Plan: Plans to discharge back home. Patient remains appropriate SNF resident. Order summary paperwork signed following our visit, this included review of medications and orders. Current comorbidities, ADL need/level of debility requires skilled care/therapy. Medications and labs all reviewed and appropriate related to comorbidities, unless otherwise indicated. Physician order sheet signed. Continue PT/OT therapy, nutrition intervention, skin protection, and fall prevention. #13 Polypharmacy #14 Advanced Care Planning Other orders - Basic Metabolic Panel; Future; Expected date: 04/17/2023 - DNR/DNI (Do Not Resuscitate/Do Not Intubate) PATIENT EDUCATION Ready to learn, no apparent learning barriers were identified; learning preferences include listening. Explained diagnosis and treatment plan; patient/child/caregiver expressed understanding of the content. BILLING Billing based on: Prolonged code(s) billed due to: extensive time spent on EMR review, extensive time spent updating EPIC Problem List, extensive time spent obtaining history from collateral historian(s), extensive time spent on education/counseling (topics included: Below-knee amputation), extensive time spent on other activities: 70. TH INFORMATION SYSTEMS TECHNICIAN documented in this encounter Miscellaneous Notes * Assessment & Plan Note - Natalio Motta APRN, C.N.P. 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 They both felt they have made the right decision because the leg was really given him problems before the amputation. He endorsed right BKA pain is well controlled at this time. He has been working with PT and tolerating therapy. TH INFORMATION SYSTEMS TECHNICIAN * Assessment & Plan Note - Natalio Motta APRN, C.N.P. - 04/12/2023 4:45 PM CSTAssociated Problem(s): Hypothyroidism Continue levothyroxine. TSH reordered. TH INFORMATION SYSTEMS TECHNICIAN * Assessment & Plan Note - Natalio Motta APRN, C.N.P. - 04/12/2023 4:09 PM CSTAssociated Problem(s): Weakness General Verbalized improvement with weakness. We will continue therapy. TH INFORMATION SYSTEMS TECHNICIAN * Assessment & Plan Note - Natalio Motta APRN, C.N.P. - 04/12/2023 4:08 PM CSTAssociated Problem(s): Halfway Stay Certification Exam Plans to discharge back home. Patient remains appropriate SNF resident. Order summary paperwork signed following our visit, this included review of medications and orders. Current comorbidities, ADL need/level of debility requires skilled care/therapy. Medications and labs all reviewed and appropriate related to comorbidities, unless otherwise indicated. Physician order sheet signed. Continue PT/OT therapy, nutrition intervention, skin protection, and fall prevention. TH INFORMATION SYSTEMS TECHNICIAN * Assessment & Plan Note - Natalio Motta APRN, C.N.P. - 04/12/2023 4:07 PM CSTAssociated Problem(s): Hypertensive Heart And Chronic Kidney Disease Without Heart Failure And WithUnspecified Stage Chronic Kidney Disease Images from the original note were not included. Blood pressure normotensive. Continue care plan. TH INFORMATION SYSTEMS TECHNICIAN * Assessment & Plan Note - Natalio Motta APRN, C.N.P. - 04/12/2023 4:05 PM CSTAssociated Problem(s): Hyperkalemia (Resolved 05/24/2023) BMP ordered. TH INFORMATION SYSTEMS TECHNICIAN * Assessment & Plan Note - Natalio Motta APRN, C.N.P. 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 Currently on Glipizide, showed and long-acting insulins. Blood sugar check 4 times daily. Nursing/patient denied episodes of hypoglycemia. We will continue care plan. TH INFORMATION SYSTEMS TECHNICIAN * Assessment & Plan Note - Natalio Motta APRN, C.N.P. - 04/12/2023 4:01 PM CSTAssociated Problem(s): Congestive Heart Failure (HCC) No admission weight yet. Nursing to check patient's weight TH INFORMATION SYSTEMS TECHNICIAN * Assessment & Plan Note - Natalio Motta APRN, C.N.P. - 04/12/2023 3:59 PM CSTAssociated Problem(s): Atrial Fibrillation Other Persistent (HCC) HR well controlled ranging from 82-85. Continue care plan. TH INFORMATION SYSTEMS TECHNICIAN * Assessment & Plan Note - Natalio Motta APRN, C.N.P. - 04/12/2023 3:57 PM CSTAssociated Problem(s): Anemia Iron Deficiency Stable. Denied dizziness, lightheadedness, shortness of breaths and palpitation. TH INFORMATION SYSTEMS TECHNICIAN * Assessment & Plan Note - Natalio Motta APRN C.N.P. - 04/12/2023 3:57 PM CSTAssociated Problem(s): Anemia (Resolved 04/12/2023) CBC reordered. Denied dizziness, lightheadedness, shortness of breaths or palpitation. TH INFORMATION SYSTEMS TECHNICIAN * Addendum Note - Natalio Motta APRN, C.N.P., M.S.N. 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 [address] [place] [phone] PCP - General Internal Medicine 04/10/23 documented as of this encounter
--- OUTSIDE RECORDS SUMMARY | 2023-08-22 09:03 | XMS_ITS ---
Author Name Unknown Organization [facility] Address [address] [place] [address] Care Team Providers Care Retail Security Professional Name Role Phone Unavailable Unavailable Unavailable Surgery Details Not on file Complications Check Surgery Details section. Procedure Estimated Blood Loss Check Surgery Details section. Procedure Findings Check Surgery Details section. Procedure Specimens Taken Check Surgery Details section.
--- OUTSIDE RECORDS SUMMARY | 2023-08-22 09:03 | XMS_ITS | Encounter Summary ---
Author Name Unknown Organization [facility] Address [address] [place] [address] Care Team Providers Care Physiotherapist'S Assistant Name Role Phone SantosumJessica ramírezNataliotashi Mishra APRN, C.N.P., M.S.N. Primary C are Provider Reason for Visit * Appointment Request (Routine) - Closed Specialty Diagnoses / Procedures Referred By Edin mishra Referred To Contact Jail Facility Referral ID Status Reason Start Date Expiration Date Visits Re quested Visits Authorized [id number] Closed 05/23/2023 05/22/2024 1 1 Encounter Details Date Type Department Care Team (Latest Contact Info) Description 05/24/2023 3:00 PM RN ICU External Outreach Senior Services in [facility] [address], [place] [address] Hannah Castillo APRN, C.N.P. 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); Hyperglycemia; Hyperkalemia; Hyperlipidemia; Weakness General; Peripheral Vascular Disease (HCC) Social History Tobacco Use Types Packs/Day [...] Comments Blood Pressure 107/66 06/18/2023 1:10 PM RN ICU Pulse 78 06/18/2023 1:10 PM RN ICU Temperature 36.6 ??C (97.8 ??F) 06/18/2023 1:10 PM CS T Respiratory Rate 16 06/18/2023 1:10 PM RN ICU Oxygen Saturation 95% 06/18/2023 1:10 PM RN ICU Inhaled Oxygen Concentration - - Weight 75.8 kg (167 lb) 06/18/2023 1:10 PM RN ICU Height - - Body Mass Index 24.66 04/12/2023 3:21 PM RN ICU documented in this encounter Patient Instructions * Patient Instructions* Hannah Castillo APRN, C.N.P. - 05/24/2023 3:00 PM RN ICU ORDERS and INSTRUCTIONS: Face to face Discharge Visit Done Orders Placed This Encounter DME Manual wheelchair; Standard, up to 250 lb/114 kg; Skin protection cushion (foam/gel/air); Medically necessary upgraded accessory options; Manual recline back, full, over 80 degrees; Head rest extension for reclining back, Legrests Standard wheelchair measuring 18 deep. 18 ' wide and 171/2 height with tension adjustable back, flip back arm rests and elevating leg rests Order Specific Question: Adult wheelchair manual type: Answer: Standard, up to 250 lb/114 kg Order Specific Question: Cushion and cushion accessories: Answer: Skin protection cushion (foam/gel/air) Order Specific Question: Accessory types: Answer: Medically necessary upgraded accessory options Order Specific Question: Reclining back: Answer: Manual recline back, full, over 80 degrees Order Specific Question: With: Answer: Head rest extension for reclining back Order Specific Question: With: Answer: Leg rests Order Specific Question: Initial date of need: Answer: 05/24/2023 Order Specific Question: Duration of need: Answer: Lifetime DME Medical Justification: Manual wheelchair DME Medical Justification: Manual wheelchair A [id number] encounter was conducted on 05/24/23 by Hannah Castillo APRN, CNP to evaluate Darek Bowersfor a manual wheelchair and accessories. Rosalina Bowers does have a mobility limitation that prevents him from accomplishing one or more mobility related activities of daily living that include toileting, feeding, dressing, grooming, and bathing in customary locations in the home. Rosalina's mobility limitations cannot be sufficiently resolved by the use of an appropriately fitted cane or walker secondary to right below the knee leg amputation. Use of a manual wheelchair on a regular basis in the home will significantly improve ability to participate in MRADLs. Rosalina's home does have adequate access between the rooms, maneuvering space, and surfaces for the manual wheelchair. He or a caregiver is willing to use the wheelchair in the home. Rosalina will use the wheelchair inside and outside the home. The type of manual wheelchair ordered is standard, up to 250 lb/114 kg patient. Rosalina does have sufficient upper extremity function and other physical and mental capabilities needed to safely self-propel the manual wheelchair in the home during a typical day. He or a caregiver is willing to use the wheelchair in the home. Cushions: Skin protection and positioning cushion: Rosalina is at risk for skin breakdown and sits in the wheelchair several hours each day. Even with proper pressure relief the patient is at risk forskin breakdown due to impaired sensation. He does not have a significant pelvic asymmetry and is atfor skin breakdown. This asymmetry makes it difficult for patient to sit without harmful amounts ofpressure accumulating on or around the coccyx/sacrum and an ischial tuberosities. The risk cannot be mitigated by a general use cushion. Elevating leg supports: Rosalina does have a presence of a cast or brace that prevents 90 degree flexion at the knee. He does have significant edema of the lower extremity that requires an articulating legrest. Requires a reclining back support for the condition of Coccyx wound and muscle weakness and also requires elevating leg support. Reclining back accessory is ordered because Rosalina has orthopedic restrictions at the trunk or pelvis that must be accommodated. A reclining back support also requires elevating leg supports. The beneficiary is at high risk for development of a pressure ulcer and it unable to perform a functional weigh shift. Most recent height: 04/12/23 : 175.3 cm Most recent weight: 05/24/23 : 75.5 kg DNR/DNI (Do Not Resuscitate/Do Not Intubate) insulin glargine (LANTUS) 100 unit/mL injection Sig: Inject 17 Units under the skin every morning. Dispense: 5.1 mL Refill: 11 triamcinolone (KENALOG) 0.1 % cream Sig: Apply 1 Application topically 2 (two) times a day as needed for irritation. Dispense: 30 g Refill: 0 spironolactone (ALDACTONE) 25 mg tablet Sig: Take 1 tablet (25 mg total) by mouth daily. Dispense: 90 tablet Refill: 3 mirtazapine (REMERON) 7.5 mg tablet Sig: Take 1 tablet (7.5 mg total) by mouth at bedtime. Dispense: 90 tablet Refill: 3 metoprolol succinate (TOPROL-XL) 25 mg 24 hr tablet Sig: Take 0.5 tablets (12.5 mg total) by mouth daily. Dispense: 45 tablet Refill: 3 insulin aspart U-100 (NovoLOG Flexpen U-100 Insulin) 100 unit/mL (3 mL) injection Sig: Inject 6 Units under the skin 3 (three) times a day with meals. Plus sliding scale 150 to 199 give 2 units. 200 to 249 give 4 units. 250 to 299 give 6 units. 300 to 349 give 8 units. 350 to 399 give 10 units. Greater than 399 give 12 units Dispense: 5.4 mL Refill: 11 furosemide (LASIX) 20 mg tablet Sig: Take 1 tablet (20 mg total) by mouth 2 (two) times a day. Dispense: 180 tablet Refill: 3 apixaban (ELIQUIS) 5 mg tablet Sig: Take 1 tablet (5 mg total) by mouth 2 (two) times a day. Dispense: 180 tablet Refill: 3 atorvastatin (LIPITOR) 40 mg tablet Sig: Take 1 tablet (40 mg total) by mouth daily. Dispense: 90 tablet Refill: 3 nitroglycerin (NITROSTAT) 0.4 mg SL tablet Sig: Place 1 tablet (0.4 mg total) under the tongue every 5 (five) minutes as needed for chest pain. Dispense: 25 tablet Refill: 11 Dispense in original container multivitamin tablet Sig: Take 1 tablet by mouth daily. Dispense: 90 tablet Refill: 3 ketoconazole (NIZORAL) 2 % cream Sig: Apply 1 Application topically 2 (two) times a day as needed for irritation or rash. Dispense: 15 g Refill: 0 levothyroxine (SYNTHROID, LEVOTHROID) 50 mcg tablet Sig: Take 1 tablet (50 mcg total) by mouth every morning before breakfast. OK to give two 25 mcg tabs until discharge from the group home Electronically signed by: Hannah Castillo APRN, C.N.PCarito 05/24/23 6:17 PM RN ICU ICU documented in this encounter H&P Notes * Hannah Castillo APRN, C.N.Dell. - 05/24/2023 3:00 PM CST CHIEF COMPLAINT / REASON FOR VISIT [facility] Discharge Visit Visit Type: In Person: Face to Face SUBJECTIVE HISTORY OF PRESENT ILLNESS Discharge visit updated 06/18/23 with face to face visit on 06/18/23 Today's narrative history (obtained from Patient, Nursing, and PT/OT): From record: Rosalina was admitted to [facility] on 04/30 with abdominal pain found secondary to constipation. He had acute kidney injury and was hydrated and furosemide was held with dosage decreased. He also had urine infection and was treated with IV antibiotics. He returned to [facility] on 05/03 to continue therapies. He will [...] side. #2 Amputation Toe Status Post Left ([facility]) Overview: History of amputation of toe #3 Wound Ankle Open Subsequent Left Overview: 04/25/23: Nursing reported left lower calf/ankle redness. #4 Advanced Care Planning Overview: Full code status #5 Alf Use Of Insulin Active ([facility]) Overview: On insulin glargine and aspart started during hospitalization December 2022. #6 Hypothyroidism Overview: Component Ref Range & Units 1 mo ago 04/24/23 1 mo ago 04/13/23 2 mo ago 03/11/23 EXT TSH, Sensitive, S 0.27 - 4.20 uIU/mL 16.80 18.20 11.70 #7 Congestive Heart Failure ([facility]) Overview: EF: ECHO with EF 10-20% on [...] Diabetes Mellitus Type 2 With Diabetic Polyneuropathy ([facility]) Overview: Lab Results Component Value Date HGBA1C [...] nursing note reviewed. Exam conducted with a energy efficient site manager present. Constitutional Appearance: Normal appearance. HENT Head: [...] standard wheelchair Mr. Woods was admitted to [facility] April 10 following BK right lower extremity. [...] continue to provide support to amputation site #2 Amputation Toe Status Post Left ([facility]) Assessment & Plan: Stable #3 Wound Ankle Open Subsequent Left Assessment & Plan: Stable #4 Advanced Care Planning Assessment & Plan: He will be full code #5 Alf Use Of Insulin Active ([facility]) Assessment & Plan: Nurse reports he is nonadherent to his diabetic diet. He is also on a sliding scale. #6 Hypothyroidism Assessment & Plan: Increase levothyroxine to 50 mcg daily. [facility] may give two 25 mcg tablets to equal 50 mcg. He will be discharging in a week #7 Congestive Heart Failure ([facility]) Assessment & Plan: Stable on current meds #8 Atrial Fibrillation Other Persistent ([facility]) Assessment & Plan: long term care social worker anticoagulation on apixaban #9 Dementia ([facility]) Assessment & Plan: He has low hearing which could contribute to him not understanding #10 Diabetes Mellitus Type 2 With Diabetic Polyneuropathy ([facility]) Assessment & Plan: Insulin dependent not always compliant with diet. Glargine will be increased to 17 units. #11 Hyperglycemia Assessment & Plan: A1C 7.2 He will follow up with his PCP in [place] #12 Hyperkalemia #13 Hyperlipidemia Assessment & Plan: Stay on statin #14 Weakness General Assessment & Plan: He is getting stronger with therapy. He will continue therapy when he gets his prosthesis. He will have a wheelchair upon discharge. #15 Peripheral Vascular Disease ([facility]) Assessment & Plan: Monotor Other orders - [...] by mouth every morning before breakfast., Starting Niurka 05/24/2023, Until Sun05/23/2024, Normal - insulin glargine (LANTUS) 100 unit/mL injection; Inject 17 Units under the skin every morning., Starting Niurka 05/24/2023, Until Sun05/23/2024, Normal - triamcinolone (KENALOG) 0.1 [...] (40 mg total) by mouth daily., Starting Sun05/24/2023, Until Sun05/23/2024, Normal - nitroglycerin (NITROSTAT) 0.4 mg SL tablet; Place 1 tablet (0.4 mg total) under the tongue every 5 (five) minutes as needed for chest pain., Starting Niurka 05/24/2023, Until Sun05/23/2024 at 2359, NormalDispense in original container - multivitamin tablet; Take 1 tablet by mouth daily., Starting Niurka 05/24/2023, Until Sun05/23/2024, Normal - ketoconazole (NIZORAL) 2 % cream; Apply 1 Application topically 2 (two) times a day as needed forirritation or rash., Starting Niurka 05/24/2023, Normal # 16 Disposition Darek will discharge to home on 06/01/23. He will need a wheelchair. Medications for home were ordered. Follow up with PCP in [place] and [facility] as scheduled. PATIENT EDUCATION Ready [...] orders, communicating orders to facility. Total time 45 minutes. ICU documented in this encounter Miscellaneous Notes * Assessment & Plan Note - Hannah Castillo APRN, C.N.P. - 05/24/2023 6:08 PM CSTAssociated Problem(s): Peripheral Vascular Disease (HCC) Monotor ICU * Assessment & Plan Note - Hannah Castillo APRN, C.N.P. - 05/24/2023 6:05 PM CSTAssociated Problem(s): Weakness General He is getting stronger with therapy. He will continue therapy when he gets his prosthesis. He will have a wheelchair upon discharge. ICU * Assessment & Plan Note - Hannah Castillo APRN, C.N.P. - 05/24/2023 6:01 PM CSTAssociated Problem(s): Hyperlipidemia Stay on statin ICU * Assessment & Plan Note - Hannah Castillo APRN, C.N.P. - 05/24/2023 6:00 PM CSTAssociated Problem(s): Hyperglycemia A1C 7.2 He will follow up with his PCP in [place] ICU * Assessment & Plan Note - Hannah Castillo APRN, C.N.P. 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 Glargine will be increased to 17 units. ICU * Assessment & Plan Note - Hannah Castillo APRN, C.N.P. - 05/24/2023 5:57 PM CSTAssociated Problem(s): Dementia (HCC) He has low hearing which could contribute to him not understanding ICU * Assessment & Plan Note - Hannah Castillo APRN, C.N.P. - 05/24/2023 5:53 PM CSTAssociated Problem(s): Atrial Fibrillation Other Persistent (HCC) snf anticoagulation on apixaban ICU * Assessment & Plan Note - Hannah Castillo APRN, C.N.P. - 05/24/2023 5:52 PM CSTAssociated Problem(s): Congestive Heart Failure (HCC) Stable on current meds ICU * Assessment & Plan Note - Hannah Castillo APRN C.N.P. - 05/24/2023 5:24 PM CSTAssociated Problem(s): Hypothyroidism Increase levothyroxine to 50 mcg daily. [facility] may give two 25 mcg tablets to equal 50 mcg. He will be discharging in a week ICU * Assessment & Plan Note - Hannah Castillo APRN, C.N.P. - 05/24/2023 5:20 PM CSTAssociated Problem(s): Lathing Supervisor Use Of Insulin Active (HCC) Nurse reports he is nonadherent to his diabetic diet. He is also on a sliding scale. ICU * Assessment & Plan Note - Hannah Castillo APRN, C.N.P. - 05/24/2023 5:19 PM CSTAssociated Problem(s): Amputation Toe Status Post Left (HCC) Stable ICU * Assessment & Plan Note - Hannah Castillo APRN, C.N.P. 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 He will need a standard wheelchair Mr. Woods was admitted to [facility] April 10 following BK right lower extremity. [...] continue to provide support to amputation site ICU * Assessment & Plan Note - Hannah Castillo APRN, C.N.P. - 05/24/2023 5:15 PM CSTAssociated Problem(s): Advanced Care Planning He will be full code ICU * Assessment & Plan Note - Hannah Castillo APRN, C.N.P. - 05/24/2023 5:14 PM CSTAssociated Problem(s): Wound Ankle Open Subsequent Left (Resolved 05/24/2023) Stable ICU * ACP (Advance Care Planning) - Hannah Castillo APRN, C.N.P. - 05/24/2023 3:00 PM CST Advance Care Planning Reason for Conversation This patient is a 83 y.o. year old male that presents for Discharge group home visit. 1. Patient has understanding of conditions: yes 2. Patient understands treatment options: yes 3. Patient has potential benefits and risks of proposed treatments/interventions: yes. Alternative Decision Maker: The patient, Rosalina Bowers, expresses the following preference: Optional Expression of Values/Preferences for Specific Life-Prolonging Treatments: The patient, Rosalina Bowers, indicates the following preference: Allow Natural *, No CPR or Mechanical Ventilation will be performed Others Present: The following person/people were also present during the discussion: Other: [facility] staff Other Comments: He is DNR/DNI ICU documented in this encounter Plan of Treatment Not on file documented as of this encounter Visit Diagnoses Diagnosis 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)- Primary Amputation Toe Status Post Left (HCC) Wound Ankle Open Subsequent Left Advanced Care Planning Lathing Supervisor Use Of Insulin Active (HCC) Hypothyroidism Congestive Heart Failure (HCC) Atrial Fibrillation Other Persistent (HCC) Dementia (HCC) 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 [address] [place] [address] PCP - General Internal Medicine 04/10/23 documented as of this encounter
--- OUTSIDE RECORDS SUMMARY | 2023-08-22 09:03 | XMS_ITS | Encounter Summary ---
Author Name Unknown Organization [facility] Address [address] [place] [address] Care Team Providers Care Commercial Real Estate Appraiser Name Role Phone SantosumJessica ramírezNataliotashi Mishra APRN, C.N.P., M.S.N. Primary C are Provider Reason for Visit * Appointment Request (Routine) - Closed Specialty Diagnoses / Procedures Referred By Edin mishra Referred To Contact Long Term Facility Referral ID Status Reason Start Date Expiration Date Visits Re quested Visits Authorized [id number] Closed 06/13/2023 06/12/2024 1 1 Encounter Details Date Type Department Care Team (Latest Contact Info) Description 06/14/2023 10:00 AM PHYSICAL SCIENCE AIDE External Outreach Senior Services in [facility] [address] [address] Hannah Castillo APRN, C.N.P. 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) (Primary Dx); Other Complications Of Amputation Stump (HCC) Social History Tobacco Use Types Packs/Day [...] Sign Reading Time Taken Comments Blood Pressure 123/68 06/14/2023 9:54 AM PHYSICAL SCIENCE AIDE Pulse 68 06/14/2023 9:54 AM PHYSICAL SCIENCE AIDE Temperature 36.2 ??C (97.1 ??F) 06/14/2023 9:54 AM CS T Respiratory Rate 18 06/14/2023 9:54 AM PHYSICAL SCIENCE AIDE Oxygen Saturation - - Inhaled Oxygen Concentration - - Weight 77.4 kg (170 lb 9.6 oz) 06/14/2023 9:54 A M PHYSICAL SCIENCE AIDE Height - - Body Mass Index 25.19 04/12/2023 3:21 PM PHYSICAL SCIENCE AIDE documented in this encounter Patient Instructions * Patient Instructions* Hannah Castillo APRN, C.N.P. - 06/14/2023 10:00 AM PHYSICAL SCIENCE AIDE ORDERS and INSTRUCTIONS: Heel wound 1: Gently cleanse area with NS. Pat dry. 2. Skin prep to gonsalo-wound. 3. Santyl to wound bed only. 4. Place gauze over wound. 5. cover with island dressing. 6. Change dressing daily. Right stump wound Cleanse daily and apply a thin layer of silverstat and gauze. Electronically signed by: Hannah Castillo APRN, C.N.P. 06/15/23 4:20 PM PHYSICAL SCIENCE AIDE ICAL SCIENCE AIDE documented in this encounter Progress Notes * Hannah Castillo APRN, C.N.P. - 06/14/2023 10:00 AM CST CHIEF COMPLAINT [facility] REAS[facility] VIS[facility] Follow Up Visit Visit Type: In Person: Face to Face SUBJECTIVE HISTORY OF PRESENT ILLNESS Today's narrative history (obtained from Patient and Nursing): He is being seen for wound care today of his left heel area. 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 Left Heel: Area continues to improve. Wound measures [id number]. Edges well defined, attached and 100% re-epithelialized tissues. Granulation tissue is observed along the lining of the edges under thebed of slough/eschar. Eschar is soft but not mushy. Wound bed is still approx 95% or more of slough/eschar. Scant drainage with dressing change. Resident tolerated cares without any concerns. New wound orders as follows: #2 Other Complications Of Amputation Stump (HCC) Overview: Part of the scab came off when the nurse was cleaning the area with saline and a guaze. Past medical/surgical history, social history, medications, and allergies were reviewed and are visible in the Encounter view. Review of systems was performed, as allowable by patient's cognitive status, and incorporating collateral history if applicable. Relevant positives are noted elsewhere in this note, otherwise negative. OBJECTIVE BP 123/68 Pulse 68 Temp 36.2 ??C Resp 18 Wt 77.4 kg BMI 25.19 kg/m?? PHYSICAL EXAM Vitals and nursing note reviewed. ASSESSMENT / PLAN Full background details regarding problems addressed at today's visit can be found in the HPI. Pertinent changes to the care plan based on today's evaluation are explicitly discussed below, otherwiselisted problems are stable and present management will be continued. 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 Pat dry. 2. Skin prep to gonsalo-wound. 3. Santyl to wound bed only. 4. Place gauze over wound. 5. cover with island dressing. 6. Change dressing daily. He may be discharged to home with home nursing for wound care . #2 Other Complications Of Amputation Stump (HCC) Assessment & Plan: The wound bed is clean. A thin layer of silver stat will be applied with a gauze. Change daily. PATIENT EDUCATION Ready to learn, no apparent [...] orders to facility. Total time 30 minutes. ICAL SCIENCE AIDE documented in this encounter Miscellaneous Notes * Assessment & Plan Note - Hannah Castillo APRN, C.N.P. - 06/15/2023 4:18 PM CSTAssociated Problem(s): Other Complications Of Amputation Stump (HCC) The wound bed is clean. A thin layer of silver stat will be applied with a gauze. Change daily. ICAL SCIENCE AIDE * Assessment & Plan Note - Hannah Castillo APRN C.N.P. 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 Pat dry. 2. Skin prep to gonsalo-wound. 3. Santyl to wound bed only. 4. Place gauze over wound. 5. cover with island dressing. 6. Change dressing daily. He may be discharged to home with home nursing for wound care . 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 [address] [place] [phone] PCP - General Internal Medicine 04/10/23 documented as of this encounter
== END 2023-08-22 08:59 | disposition home or self-care (01) ==
LOC: WOUND 08:59
PROVIDERS: PCP Family Medicine; Visit Provider Surgery
DX: E11.621 Type 2 diabetes mellitus with foot ulcer (principal); L97.422 Non-pressure chronic ulcer of left heel and midfoot with fat layer exposed; Z79.4 Long term (current) use of insulin; Z79.84 Long term (current) use of oral hypoglycemic drugs
CPT/HCPCS: 97597

== ENCOUNTER 2023-08-29 09:02 | Outpatient (CLI) | payer MEDICARE, BC, SELFPAY ==
--- OUTSIDE RECORDS SUMMARY | 2023-08-29 09:04 | XMS_ITS | Clinical Summary ---
Author Name Unknown Organization [employer] Affiliates Address [place], [place] [address] Care Team Providers Care Tree Doctor Name Role Phone VotelMelquiades MD Primary Care Provider + Nurses, Advanced Heart Failure Unavailable + Shade Manuel MD Unavailable [phone] Allergies No known active allergies Medications Medication Sig Dispensed Refills Start Date End Date Status blood-glucose meterIndications:T ype 2 diabetes mellitus with complication (HC) Ascensia Glucometer, Dispense meter, test strips, lancets covered by pt ins. 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 11/25/2019 HTN (hypertension) 10/28/2015 Hyperlipidemia LDL goal <70 10/28/2015 Adenomatous colon polyp 04/13/2015 Overview: Colonoscopy 04/2015 polyps repeat in 5 years Colonoscopy 03/2020 polyps, repeat in 5 years Background diabetic retinopathy(362.01) 07/10/19 08 Unspecified hearing loss 07/10/2007 Coronary atherosclerosis of unspecified type of vessel, kenaitze or graft Overview: 4 vessel CABG 2001 Lexiscan only for cardiac evaluation - no treadmill Other ill-defined and unknow n causes of morbidity and mortality Impotence of organic origin Resolved Problems Problem Noted Date Diagnosed Date Resolved Date Type 2 diabetes mellitus with complication 11/16/2017 12/22/2022 Heart disease, unspecified 0 07/10/2007 Encounters Date Type Department Care Team Description 08/23/2023 12:46 PM CDT - 08/23/2023 11:59 PM CDT Hospital [facility] [address] [place] [address] Melquiades Man MD Tonsfeldt, Isabelle, PT History of leg amputation (HC) 08/23/2023 Travel 08/17/2023 Telephone [facility] [address] [place] [address] Melquiades Man MD Home Care ([facility]) 08/08/2023 Telephone [facility] [address] [place] [address] Melquiades Man MD 08/01/2023 Orders Only [facility] Scanner 1 scan: (1-Ord) [facility] [place], 08/01/2023 07/31/2023 Telephone [facility] [address] [place] [address] Melquiades Man MD 07/27/2023 11:30 AM CDT Office Visit [facility] [place] [address] [place] [address] Shade Manuel MD CV Heart Failure Est (6 mo f/u, discuss recent med changes. ) 07/27/2023 10:45 AM CDT Orders Only [facility] [place] [address] Lab 07/27/2023 Travel 07/24/[address] [address] Melquiades Man MD 07/24/[address] [address] Melquiades Man MD Refill Request (Fiasp Flextouch Pen Inj 3ml ) 07/20/2023 1:00 PM MASTER CONTROL TECHNICIAN Telemedicine [facility] [address] [place] [address] Santana Nails MD Wound Check 07/20/[address] [address] Melquiades Man MD Refill Request; NOVOLOG FLEXPEN 07/20/[address] [address] Ezequiel Nye AuD Hearing Aid 07/19/[address] [address] Melquiades Man MD 07/18/[address] [address] Melquiades Man MD Refill Request (Basaglar 100 U/ML Kwikpen INJ 3ml) 07/17/2023 2:05 PM MASTER CONTROL TECHNICIAN Office Visit [address] [address] Melquiades Man MD Medication Management; Follow Up (Discharged from snf 06/20/23, left foot wound developed while at the snf) 07/17/[address] [address] Melquiades Man MD Refill Request (insulin) 07/17/2023 Travel 07/17/[address] [address] Votel, Melquiades Gray MD Form 07/12/2023 Telephone [facility] [address] [place] [address] VoteMelquiades lewis MD 07/11/2023 Telephone [facility] [address] [place] [address] Ezequiel Nye, [employer] (AUTHORIZATION) 07/10/2023 Telephone [facility] [address] [place] [address] Votedebbie, Melquiades Gray MD 07/05/2023 Telephone [facility] [address] [place] [address] Votedebbie, Melquiades Gray MD Home Care 07/03/2023 Telephone [facility] [address] [place] [address] VoteMelquiades lewis MD Follow Up (orders) 07/02/2023 Telephone [facility] [address] [place] [address] Santana Nails MD Appointment 07/02/2023 Telephone [facility] [address] [place] [address] Ezequiel Nye, AuD Referral 07/01/2023 Telephone [facility] [address] [place] [address] Kimberly Hurtado MD 07/01/2023 Nurse Triage [facility] [address] [place] [address] Votel, Melquiades Gray MD High Blood Sugar 06/28/2023 Telephone [facility] [address] [place] [address] Melquiades Man MD 06/25/2023 Telephone [facility] [address] [place] [address] Melquiades Man MD ACC Order Request 06/22/2023 Telephone [facility] [address] [place] [address] Melquiades Man MD Outside Order 06/21/2023 Telephone [facility] [address] [place] [address] Ezequiel Nye, AuD Form (Referral for services form ( [place] )) 06/04/2023 Lab Requisition [facility] [address] [place] [address] Laura Carranza MD 06/04/2023 Lab Requisition [facility] [address] [place] [address] Laura Carranza MD 05/31/2023 Lab Requisition [facility] [address] [place] [address] [facility] from Last 3 Months Immunizations Name Administration Dates Next Due COVID-19 vaccine (Moderna 100mcg/0.5mL) PF, MDV 03/09/2021 COVID-19 vaccine (Moderna 50 mcg/0.5mL) 12YO+ BIVALENT PF, MDV 03/29/2022 COVID-19 vaccine (Pfizer-Bio NTech 30mcg/0.3mL) PF, MDV 03/09/2021,07/24/2020,07/03/2020 COVID-19 vaccine Comirnaty (Pfizer-BioNTech 30mcg/0.3mL) 12YO+ [id number] Formula PF, SDV, PFS 03/05/2023 Influenza Virus, Unspecified 03/09/2021,02/12/20 20,03/15/2017 Influenza, High-dose Inactivated 03/07/2019,01/12 Influenza, High-dose Quadriv [...] Brother kidney problems Heart Disease Father 1st [place] at 65 d 77 yo CHF Diabetes Mother Heart Disease Mother d 64 yo [place] Genetic Other There is a posi tive [...] T Respiratory Rate 24 05/03/2023 7:04 AM MASTER CONTROL TECHNICIAN Oxygen Saturation 100% 07/27/2023 11:51 AM CDT Inhaled Oxygen Concentration - - Weight 81.6 kg (180 lb) 07/27/2023 11:51 AM CDT pt reported Height 175.3 cm (5' 9.02) 07/27/2023 11:51 AM C DT Body Mass Index 26.57 07/27/2023 11:51 AM CDT Plan of Treatment Upcoming Encounters Date Type Department Care Team (Late st Contact Info) Description 09/06/2023 9:30 AM CDT [facility]ointment [facility] [address] [address] Zoila Grace, PT [address] [address] 09/10/2023 1:00 PM CDT Appointment [facility] [address] [address] Zoila Grace, PT [address] [address] 09/13/2023 1:00 PM CDT Appointment [facility] [address] [address] Zoila Grace, PT [address] [address] 09/20/2023 11:45 AM CDT Appointment [facility] [address] [place] [address] Zoila Grace, PT 225 [place] [address] 09/24/2023 1:00 PM CDT Appointment [facility] [address] [place] [address] Zoila Grace, PT [address] [place] [address] 09/27/2023 1:00 PM CDT Appointment [facility] [address] [place] [address] Zoila Grace, PT [address] [place] [address] 10/01/2023 1:00 PM CDT Appointment [facility] [address] [place] [address] Zoila Grace, PT [address] [place] [address] 10/04/2023 1:45 PM CDT Appointment [facility] [address] [place] [address] Zoila Grace, PT [address], [place] [address] 10/11/2023 1:00 PM CDT Appointment [facility] [address] [place] [address] Zoila Grace, PT 225 [place] [address] 10/15/2023 1:00 PM CDT Appointment [facility] [address] [place] [address] Zoila Grace, PT [address] [place] [address] 10/18/2023 1:00 PM CDT Appointment [facility] [address] [place] [address] Zoila Grace, PT [address], [place] [address] 10/22/2023 1:00 PM CDT Appointment [facility] [address] [place] [address] Zoila Grace, PT [address] [place] [address] 10/25/2023 1:00 PM CDT Appointment [facility] [address] [place] [address] Zoila Garce, PT [address], [place] [address] 10/29/2023 1:00 PM CDT Appointment [facility] [address] [place] [address] Zoila Grace, PT [address] [place] [address] 11/01/2023 1:00 PM CDT Appointment [facility] [address] [place] [address] Zoila Grace, PT [address] [place] [address] 11/05/2023 1:00 PM CDT Appointment [facility] ? [facility] [address] [place] [address] Zoila Grace, PT [address] [place] [address] Health Maintenance Due Date Last Done Comments [...] failure (HC) TSH Routine 06/05/2023 7:08 AM MASTER CONTROL TECHNICIAN AEROBIC BACTERIAL CULTURE, STAIN Routine 05/31/2023 11:15 AM MASTER CONTROL TECHNICIAN Pressure ulcer of left heel, unspecified stage from Last 3 Months Results * SCAN-EYE EXAM (08/01/2023 12:00 AM CDT) Scanner OTHER * (ABNORMAL) PRO-BNP (07/27/2023 10:49 AM CDT) PRO-BNP 7,600(H) <450 pg/mL 07/27/2023 11:09 PM CDT [facility] Blood BLOOD SPECIMEN / Unknown Butterfly / Unknown 07/27/2023 10:49 AM CDT 07/27/2023 10:50 AM CDT Narrative [facility] - 07/27/2023 11:09 PM CDT The [...] failure. ? Melquiades Man MD SEND OUTS [facility] [address] [place] [address], * (ABNORMAL) BASIC METABOLIC PANEL (07/27/2023 10:49 AM CDT) SODIUM 137 136 - 145 mmol/L 07/27/2023 11:08 PM CDT [facility] POTASSIUM 4.4 3.5 - 5.1 mmol/L 07/27/2023 11:08 PM CDT [facility] CHLORIDE 94(L) 98 - 107 mmol/L 07/27/2023 11:08 PM CDT [facility] CO2,TOTAL 26 22 - 29 mmol/L 07/27/2023 11:08 PM CDT [facility] ANION GAP 17 5 - 18 07/27/2023 11:08 PM CDT [facility] GLUCOSE 317(H) 70 - 99 mg/dL 07/27/2023 11:08 PM CDT [facility] CALCIUM 10.1 8.8 - 10.2 mg/dL 07/27/2023 11:08 PM T [facility] BUN 52(H) 8 - 23 mg/dL 07/27/2023 11:08 PM CDT [facility] CREATININE 1.74(H) 0.70 - 1.20 mg/dL 07/27/2023 11:08 PM T [facility] BUN/CREAT RATIO 30(H) 10 - 20 11:08 PM T [facility] eGFR 39(L) >90 mL/min/1.7 3m2 07/27/2023 11:08 PM T [facility] Comment:As of [...] 10:50 AM CDT Melquiades Man MD CHEMISTRY [facility] [address] * (ABNORMAL) TSH (06/05/2023 7:08 AM MASTER CONTROL TECHNICIAN) TSH 14.20(H) 0.27 - 4.20 uIU/mL 06/05/2023 8:26 AM MASTER CONTROL TECHNICIAN [facility] Blood BLOOD SPECIMEN / Unknown Butterfly / Unknown 06/05/2023 7:08 AM MASTER CONTROL TECHNICIAN 06/05/2023 7:52 AM MASTER CONTROL TECHNICIAN Narrative [facility] - 06/05/2023 8:26 AM MASTER CONTROL TECHNICIAN In Adults, TSH values between 5.00 and 10.00 uIU/ml do not necessarily indicate the presence of Hypothyroidism. Correlation with clinical findings such as presence of goiter and/or Thyroperoxidase (TPO) Antibody may be helpful. For more information please refer to RONNIE 2004; 291: 228-238. Laura Enriquez MD CHEMI STRY Performing Organization Address [facility] Co de Phone Number [facility] [address] [place] [address] * (ABNORMAL) AEROBIC BACTERIAL CULTURE, STAIN (05/31/2023 11:15 AM MASTER CONTROL TECHNICIAN) CULTURE RESULT(A) 06/03/2023 8:54 AM MASTER CONTROL TECHNICIAN [facility] CULTURE 4+ Staphylococcus aureus 06/03/2023 8:54 AM MASTER CONTROL TECHNICIAN [facility] Comment:Isolate is MRSA (Met hicillin-resistant Staph aureus). GRAM STAIN No RBCs 06/03/2023 8:54 AM MASTER CONTROL TECHNICIAN [facility] GRAM STAIN No PMNs 06/03/2023 8:54 AM MASTER CONTROL TECHNICIAN [facility] GRAM STAIN 1+ Epithelial cells 06/03/2023 8:54 AM MASTER CONTROL TECHNICIAN [facility] GRAM STAIN 4+ Gram Positive Cocci 06/03/2023 8:54 AM MASTER CONTROL TECHNICIAN [facility] Other (Other) Client Collect / Unknown 05/31/2023 11:15 AM MASTER CONTROL TECHNICIAN 05/31/2023 12:40 PM MASTER CONTROL TECHNICIAN Narrative Organism Antibiotic Method Susceptibility Staphylococcus aureus OXACILLIN >=4: R Staphylococcus aureus CLINDAMYCIN 0.25: S Staphylococcus aureus DOXYCYCLINE 2: S Staphylococcus aureus CEFAZOLIN R Staphylococcus aureus VANCOMYCIN 1: S Staphylococcus aureus TRIMETHOPRIM/SULF <=0.5/9.5: S Laura Enriquez MD MICRO BIOLOGY Performing Organization Address [facility]/ZIP Co de Phone Number [facility] [address] [place] [address], from Last 3 Months Additional Health Concerns [...] 12 months since positive culture): resides in acute/alf care, receiving hemodialysis, has chronic open wounds/skin damage, has long-term percutaneous indwelling medical devices Exclusions for nares collection (if <12 months since positive culture) include all of the previous exclusions plus patients on antibiotics 7 days prior to collection 03/08/2023 05/31/2023 MDRO-GNB 04/26/2023 04/26/2023 Advance Directives Documents on File Type Date Recorded Patient Market Survey Representative Expl anation POLST 03/26/2023 * Full Code (Latest Code Status [...] Code Status Discussion: Reviewed Preferences Care Teams Tree Doctor Relationship Specialty Start Date End Date Votel, Melquiades Gray MD [address] [place] [address] PCP - General 11/20/05 Nurses, Advanced Heart Failure [address] [place] [id number] Advanced Heart Failure/Transplant Card 01/24/23 Shade Manuel MD [address] [place] [address] [place] [address] Cardiovascular Disease 01/24/23
--- OUTSIDE RECORDS SUMMARY | 2023-08-29 09:04 | XMS_ITS | Continuity of Care Document ---
Author Name [facility] Organization [facility] Care Team Providers Care Catalogue And Special Products Manager Name Role Phone [facility] Unavailable Unavailable Problems Combined list of problems from Department of [facility] and [facility] facilities. It does not include entries that were removed or entered in error. Problem Status Onset Date Problem Type Date of Resolution Comments Source Exposure to potentially hazardous substance ([facility] [id number]) Active 07/20/19 24 Condition Jul 20, 2023 Entered By: MECHELLE DEMPSEY Comment: [facility] TAM Documentation Initiative [facility] CAD - Coronary Artery Disease ([facility] [id number]) Active Condition [place] ([facility]) CHF - Congestive Heart Failure ([facility] [id number]) Active Condition [facility]) Diabetes Mellitus Type 2 ([facility] [id number]) Active Condition [facility]) HTN - Hypertension ([facility] [id number]) Active Condition [place] ([facility]) Hyperlipidemia ([facility] [id number]) Active Condition [facility]) Long-term current use of insulin Active Condition [facility]) Peripheral neuropathy due to type 2 diabetes mellitus Active Condition [place] ([facility]) Diagnosis: ICD-10-CM H90.3 Sensorineural hearing loss, bilateral Active Diagnosis [facility] Diagnosis: ICD-10-CM I50.9 Heart failure, unspecified Active Diagnosis [facility]) Diagnosis: ICD-10-CM E11.9 Type 2 diabetes mellitus without complications Active Diagnosis [facility] Diagnosis: ICD-10-CM R26.89 Other abnormalities of gait and mobility Active Diagnosis [facility] ([facility]) Diagnosis: ICD-10-CM Z00.00 Encntr for general adult medical exam w/o abnormal findings Active Diagnosis [facility] ([facility]) Medications Combined list of outpatient medications from Department of [facility] and [facility] facilities.Medications provided include 1) outpatient medications from the last 15 months, and 2) patient-reported medications. Medication Details Route Status Patient Instructions Prescription Expires Prescription Number Last Dispense Date Ordering Provider Order Date Order Qty Source APIXABAN 5MG TAB TAKE ONE TABLET BY MOUTH EVERY 12 HOURS ORALLY ACTIVE RYAN CHESTER 2022 [facility] ([facility]) ATORVASTATI N CA 40MG TAB TAKE ONE TABLET BY MOUTH DAILY ORALLY ACTIVE RYAN CHESTER 2022 [facility]) CADEXOMER IODINE 0.9% GEL,TOP APPLY THIN LAYER TOPICALL Y DIRECTED KAYLI Jackson WOUND CARE ORDERS TOPICA LLThanh ACTIVE 02/16/2024 [id number] KATHY MURPHY 2022 40 [facility] CLOPIDOGREL BISULFATE 75MG TAB TAKE ONE TABLET BY MOUTH DAILY ORALLY ACTIVE RYAN CHESTER 2022 [facility]) CONTOUR NEXT (GLUCOSE) TEST STRIP USE 1 STRIP THREE TIMES A DAY RYAN TRAVIS 2020 [facility]) FUROSEMIDE 40MG TAB TAKE ONE TABLET BY MOUTH DAILY ORALLY ACTIVE FELICITY CHESTER BOB Sharpe 2022 [facility]) GLIPIZIDE 5MG TAB TAKE ONE TABLET BY MOUTH TWICE A DAY ORALLY ACTIVE RYAN CHESTER 2022 [facility]) INSULIN ASPART (HUMAN) INJ INJECT 10 UNITS UNDER THE SKIN BEFORE MEALS SUBCUT ANEOUS RYAN GLASS 2022 [facility]) INSULIN GLARGINE 300UNITS/ML [...] ACTIVE RYAN CHESTER 2022 [facility]) SACUBITRIL 24MG/VALSAR ADAM [...] Site Reaction Lot Number CVX Code Drug Advertisement Compositor Status Comments Source INFLUENZA, HIGH-DOSE, QUADRIVALENT 1 2021 197 complet ed [facility] COVID-19 (MODERNA), MRNA, LNP-S, BIVALENT, PF, 50 MCG/0.5 ML OR 25MCG/0.25 ML DOSE 1 2021 229 complet ed [facility] COVID-19 (PFIZER), MRNA, LNP-S, PF, 30 MCG/0.3 ML DOSE 3 2020 208 complet ed [facility] INFLUENZA, UNSPECIFIED FORMULATION 2020 88 complet ed [facility] TDAP 2020 115 complet ed [employer], [id number] , exp-2022 and given VIS dated 12/17/2020 [facility]) ZOSTER RECOMBINANT 2 2020 187 complet ed [facility] ZOSTER RECOMBINANT 1 2020 187 complet ed [facility] COVID-19 (PFIZER), MRNA, LNP-S, PF, 30 MCG/0.3 ML DOSE 2 2020 208 complet ed [facility] COVID-19 (PFIZER), MRNA, LNP-S, PF, 30 MCG/0.3 ML DOSE 1 2020 208 complet ed [facility] INFLUENZA, UNSPECIFIED FORMULATION 2019 88 complet ed [facility] PNEUMOCOCCAL CONJUGATE PCV 13 2014 133 complet ed Per [facility] PNEUMOCOCCAL POLYSACCHARID E PPV23 2010 33 complet ed [facility] PNEUMOCOCCAL POLYSACCHARID E PPV23 2005 33 complet ed [facility] Results Combined list of recent chemistry, hematology [...] Jan 23, 2023 02:00 PM Reporting Lab: [facility] [address] Performing Lab: [facility] [address] [place] ([facility]) BASIC METABOLIC PANEL+MG UREA NITROGEN [MASS/VOLUM E] IN SERUM OR PLASMA 35 8 - 26 01/23 H Specimen Type: PLASMA No comment entered. Ordering Provider: AILIN CHESTER Report Released Date/Time: Jan 23, 2023 02:00 PM Reporting Lab: [facility] [address] Performing Lab: [facility] [address] [place] ([facility]) BASIC METABOLIC PANEL+MG GLUCOSE [MASS/VOLUM E] IN SERUM OR PLASMA 239 70 - 100 01/23 H Specimen Type: PLASMA No comment entered. Ordering Provider: AILIN CHESTER Report Released Date/Time: Jan 23, 2023 02:00 PM Reporting Lab: [facility] [address] Performing Lab: [facility] [address] [place] ([facility]) BASIC METABOLIC PANEL+MG SODIUM [MOLES/VOLU ME] IN SERUM OR PLASMA 140 136 - 145 01/23 Specimen Type: PLASMA No comment entered. Ordering Provider: AILIN CHESTER Report Released Date/Time: Jan 23, 2023 02:00 PM Reporting Lab: [address] Performing Lab: [address] [place] [address] ([facility]) BASIC METABOLIC PANEL+MG POTASSIUM [MOLES/VOLU ME] IN SERUM OR PLASMA 5.1 3.5 - 5.1 01/23 Specimen Type: PLASMA No comment entered. Ordering Provider: AILIN CHESTER Report Released Date/Time: Jan 23, 2023 02:00 PM Reporting Lab: [address] Performing Lab: [address] ([facility]) BASIC METABOLIC PANEL+MG CHLORIDE [MOLES/VOLU ME] IN SERUM OR PLASMA 109 98 - 107 01/23 H Specimen Type: PLASMA No comment entered. Ordering Provider: AILIN CHESTER Report Released Date/Time: Jan 23, 2023 02:00 PM Reporting Lab: [facility] [address] Performing Lab: [facility] [address] [place] ([facility]) BASIC METABOLIC PANEL+MG CARBON DIOXIDE, TOTAL [MOLES/VOLU ME] IN SERUM OR PLASMA 21 22 - 29 01/23 L Specimen Type: PLASMA No comment entered. Ordering Provider: AILIN CHESTER Report Released Date/Time: Jan 23, 2023 02:00 PM Reporting Lab: [facility] [address] Performing Lab: [facility] [address] [place] ([facility]) BASIC METABOLIC PANEL+MG CALCIUM [MASS/VOLUM E] IN SERUM OR PLASMA 9.4 8.4 - 10.2 01/23 Specimen Type: PLASMA No comment entered. Ordering Provider: AILIN CHESTER Report Released Date/Time: Jan 23, 2023 02:00 PM Reporting Lab: [facility] [address] Performing Lab: [facility] [address] [place] ([facility]) BASIC METABOLIC PANEL+MG MAGNESIUM [MASS/VOLUM E] IN SERUM OR PLASMA 1.7 1.6 - 2.6 01/23 Specimen Type: PLASMA No comment entered. Ordering Provider: AILIN CHESTER Report Released Date/Time: Jan 23, 2023 02:00 PM Reporting Lab: [facility] [address] Performing Lab: [facility] [address] [place] ([facility]) BASIC METABOLIC PANEL+MG ANION GAP IN SERUM OR PLASMA 10 5 - 15 01/23 Specimen Type: PLASMA No comment entered. Ordering Provider: AILIN CHESTER Report Released Date/Time: Jan 23, 2023 02:00 PM Reporting Lab: [facility] [address] Performing Lab: [facility] [address] [place] ([facility]) BASIC METABOLIC PANEL+MG GLOMERULAR FILTRATION RATE/1.73 SQ M.PREDICTED [VOLUME RATE/AREA] IN SERUM, PLASMA OR BLOOD BY CREATININE- BASED FORMULA (CKD-EPI 2020) 61 60 01/23 Specimen Type: PLASMA No comment entered. Ordering Provider: AILIN CHESTER Report Released Date/Time: Jan 23, 2023 02:00 PM Reporting Lab: [facility] [address] Performing Lab: [facility] [address] [place] ([facility]) BNP NATRIURETIC PEPTIDE B [MASS/VOLUM E] IN SERUM OR PLASMA 1549 <99 - 99 01/23 H Specimen Type: PLASMA No comment entered. Ordering Provider: AILIN CHESTER Report Released Date/Time: Jan 23, 2023 02:00 PM Reporting Lab: [facility] [address] Performing Lab: [facility] [address] [place] ([facility]) MICROALBU MIN/CREAT ININE RATIO URINE CREATININE [MASS/VOLUM E] IN URINE 132.8 58.0 - 161.0 11/23 Specimen Type: URINE No comment entered. Ordering Provider: AILIN CHESTER Report Released Date/Time: Nov 23, 2022 11:58 AM Reporting Lab: [facility] [address] Performing Lab: [facility] [address] [place] ([facility]) MICROALBU MIN/CREAT ININE RATIO URINE MICROALBUMI N/CREATININ E [MASS RATIO] IN URINE 28.0 11/23 Specimen Type: URINE No comment entered. Ordering Provider: AILIN CHESTER Report Released Date/Time: Nov 23, 2022 11:58 AM Reporting Lab: [facility] [address] Performing Lab: [place] [phone] [place] ([facility]) MICROALBU MIN/CREAT ININE RATIO URINE MICROALBUMI N [MASS/VOLUM E] IN URINE 37.2 11/23 H Specimen Type: URINE No comment entered. Ordering Provider: AILIN CHESTER Report Released Date/Time: Nov 23, 2022 11:58 AM Reporting Lab: [facility] [address] Performing Lab: [facility] [address] [place] ([facility]) LIPID PANEL,NON -FASTING CHOLESTEROL [MASS/VOLUM E] IN SERUM OR PLASMA 130 11/23 Specimen Type: PLASMA No comment entered. Ordering Provider: AILIN CHESTER Report Released Date/Time: Nov 23, 2022 11:58 AM Reporting Lab: [facility] [address] Performing Lab: [facility] [address] [place] ([facility]) LIPID PANEL,NON -FASTING CHOLESTEROL IN HDL [MASS/VOLUM E] IN SERUM OR PLASMA 39 11/23 L Specimen Type: PLASMA No comment entered. Ordering Provider: AILIN CHESTER Report Released Date/Time: Nov 23, 2022 11:58 AM Reporting Lab: [facility] [address] Performing Lab: [facility] [address] [place] ([facility]) LIPID PANEL,NON -FASTING CHOLESTEROL IN LDL [MASS/VOLUM E] IN SERUM OR PLASMA BY CALCULATION 73 11/23 Specimen Type: PLASMA No comment entered. Ordering Provider: AILIN CHESTER Report Released Date/Time: Nov 23, 2022 11:58 AM Reporting Lab: [facility] [address] Performing Lab: [facility] [address] [place] ([facility]) LIPID PANEL,NON -FASTING CHOLESTEROL IN VLDL [MASS/VOLUM E] IN SERUM OR PLASMA BY CALCULATION 18 11/23 Specimen Type: PLASMA No comment entered. Ordering Provider: AILIN CHESTER Report Released Date/Time: Nov 23, 2022 11:58 AM Reporting Lab: [facility] [address] Performing Lab: [address] [place] [address] ([facility]) LIPID PANEL,NON -FASTING CHOLESTEROL NON HDL [MASS/VOLUM E] IN SERUM OR PLASMA 91 11/23 Specimen Type: PLASMA No comment entered. Ordering Provider: AILIN CHESTER Report Released Date/Time: Nov 23, 2022 11:58 AM Reporting Lab: [address] Performing Lab: [address] ([facility]) LIPID PANEL,NON -FASTING TRIGLYCERID E [MASS/VOLUM E] IN SERUM OR PLASMA 92 11/23 Specimen Type: PLASMA No comment entered. Ordering Provider: AILIN CHESTER Report Released Date/Time: Nov 23, 2022 11:58 AM Reporting Lab: [facility] [address] Performing Lab: [facility] [id number] [place] [address] ([facility]) CBC LEUKOCYTES [#/VOLUME] IN BLOOD BY AUTOMATED COUNT 10.80 4.0 - 11.0 11/23 Specimen Type: BLOOD No comment entered. Ordering Provider: AILIN CHESTER Report Released Date/Time: Nov 23, 2022 11:58 AM Reporting Lab: [facility] [address] Performing Lab: [address] [place] ([facility]) CBC ERYTHROCYTE S [#/VOLUME] IN BLOOD BY AUTOMATED COUNT 3.87 4.6 - 6.2 11/23 L Specimen Type: BLOOD No comment entered. Ordering Provider: AILIN CHESTER Report Released Date/Time: Nov 23, 2022 11:58 AM Reporting Lab: [facility] [address] Performing Lab: [place] [phone] [place] ([facility]) CBC HEMOGLOBIN [MASS/VOLUM E] IN BLOOD 12.1 13.5 - 17.9 11/23 L Specimen Type: BLOOD No comment entered. Ordering Provider: AILIN CHESTER Report Released Date/Time: Nov 23, 2022 11:58 AM Reporting Lab: [facility] [address] Performing Lab: [facility] [address] [place] ([facility]) CBC HEMATOCRIT [VOLUME FRACTION] OF BLOOD BY AUTOMATED COUNT 37.5 41 - 54 11/23 L Specimen Type: BLOOD No comment entered. Ordering Provider: AILIN CHESTER Report Released Date/Time: Nov 23, 2022 11:58 AM Reporting Lab: [facility] [address] Performing Lab: [address] [place] [address] ([facility]) CBC MCV [ENTITIC VOLUME] BY AUTOMATED COUNT 96.9 80 - 100 11/23 Specimen Type: BLOOD No comment entered. Ordering Provider: AILIN CHESTER Report Released Date/Time: Nov 23, 2022 11:58 AM Reporting Lab: [facility] [address] Performing Lab: [facility] [address] [place] ([facility]) CBC MCH [ENTITIC MASS] BY AUTOMATED COUNT 31.3 27 - 33 11/23 Specimen Type: BLOOD No comment entered. Ordering Provider: AILIN CHESTER Report Released Date/Time: Nov 23, 2022 11:58 AM Reporting Lab: [facility] [address] Performing Lab: [facility] [address] [place] ([facility]) CBC MCHC [MASS/VOLUM E] BY AUTOMATED COUNT 32.3 32.0 - 37.5 11/23 Specimen Type: BLOOD No comment entered. Ordering Provider: AILIN CHESTER Report Released Date/Time: Nov 23, 2022 11:58 AM Reporting Lab: [facility] [address] Performing Lab: [facility] [address] [place] ([facility]) CBC PLATELETS [#/VOLUME] IN BLOOD BY AUTOMATED COUNT 293 150 - 400 11/23 Specimen Type: BLOOD No comment entered. Ordering Provider: AILIN CHESTER Report Released Date/Time: Nov 23, 2022 11:58 AM Reporting Lab: [facility] [address] Performing Lab: [address] ([facility]) CBC PLATELET MEAN VOLUME [ENTITIC VOLUME] IN BLOOD BY AUTOMATED COUNT 10.3 7.4 - 10.4 11/23 Specimen Type: BLOOD No comment entered. Ordering Provider: AILIN CHESTER Report Released Date/Time: Nov 23, 2022 11:58 AM Reporting Lab: [facility] [address] Performing Lab: [place] [id number] [place] ([facility]) CBC ERYTHROCYTE DISTRIBUTIO N WIDTH [RATIO] BY AUTOMATED COUNT 13.2 11.5 - 14.5 11/23 Specimen Type: BLOOD No comment entered. Ordering Provider: AILIN CHESTER Report Released Date/Time: Nov 23, 2022 11:58 AM Reporting Lab: [facility] [address] Performing Lab: [address] [place] ([facility]) TSH W/REFLEX TO FREE T4 THYROTROPIN [UNITS/VOLU ME] IN SERUM OR PLASMA 4.59 0.35 - 4.94 11/23 Specimen Type: PLASMA No comment entered. Ordering Provider: AILIN CHESTER Report Released Date/Time: Nov 23, 2022 11:58 AM Reporting Lab: [facility] [address] Performing Lab: [facility] [address] [place] ([facility]) COMPREHEN SIVE METABOLIC PANEL+MG CREATININE [MASS/VOLUM E] IN SERUM OR PLASMA 1.2 0.7 - 1.2 11/23 Specimen Type: PLASMA No comment entered. Ordering Provider: AILIN CHESTER Report Released Date/Time: Nov 23, 2022 11:58 AM Reporting Lab: [facility] [address] Performing Lab: [address] ([facility]) COMPREHEN SIVE METABOLIC PANEL+MG UREA NITROGEN [MASS/VOLUM E] IN SERUM OR PLASMA 34 8 - 26 11/23 H Specimen Type: PLASMA No comment entered. Ordering Provider: AILIN CHESTER Report Released Date/Time: Nov 23, 2022 11:58 AM Reporting Lab: [facility] [address] Performing Lab: [facility] [address] [place] ([facility]) COMPREHEN SIVE METABOLIC PANEL+MG GLUCOSE [MASS/VOLUM E] IN SERUM OR PLASMA 54 70 - 100 11/23 L Specimen Type: PLASMA No comment entered. Ordering Provider: AILIN CHESTER Report Released Date/Time: Nov 23, 2022 11:58 AM Reporting Lab: [facility] [address] Performing Lab: [facility] [address] [place] ([facility]) COMPREHEN SIVE METABOLIC PANEL+MG SODIUM [MOLES/VOLU ME] IN SERUM OR PLASMA 143 136 - 145 11/23 Specimen Type: PLASMA No comment entered. Ordering Provider: AILIN CHESTER Report Released Date/Time: Nov 23, 2022 11:58 AM Reporting Lab: [facility] [address] Performing Lab: [facility] [address] [place] ([facility]) COMPREHEN SIVE METABOLIC PANEL+MG POTASSIUM [MOLES/VOLU ME] IN SERUM OR PLASMA 4.4 3.5 - 5.1 11/23 Specimen Type: PLASMA No comment entered. Ordering Provider: AILIN CHESTER Report Released Date/Time: Nov 23, 2022 11:58 AM Reporting Lab: [facility] [address] Performing Lab: [facility] [address] [place] ([facility]) COMPREHEN SIVE METABOLIC PANEL+MG CHLORIDE [MOLES/VOLU ME] IN SERUM OR PLASMA 107 98 - 107 11/23 Specimen Type: PLASMA No comment entered. Ordering Provider: AILIN CHESTER Report Released Date/Time: Nov 23, 2022 11:58 AM Reporting Lab: [facility] [address] Performing Lab: [facility] [address] [place] ([facility]) COMPREHEN SIVE METABOLIC PANEL+MG CARBON DIOXIDE, TOTAL [MOLES/VOLU ME] IN SERUM OR PLASMA 23 22 - 29 11/23 Specimen Type: PLASMA No comment entered. Ordering Provider: AILIN CHESTER Report Released Date/Time: Nov 23, 2022 11:58 AM Reporting Lab: [facility] [address] Performing Lab: [facility] [address] [place] ([facility]) COMPREHEN SIVE METABOLIC PANEL+MG CALCIUM [MASS/VOLUM E] IN SERUM OR PLASMA 9.7 8.4 - 10.2 11/23 Specimen Type: PLASMA No comment entered. Ordering Provider: AILIN CHESTER Report Released Date/Time: Nov 23, 2022 11:58 AM Reporting Lab: [address] Performing Lab: [address] [place] ([facility]) COMPREHEN SIVE METABOLIC PANEL+MG PROTEIN [MASS/VOLUM E] IN SERUM OR PLASMA 7.2 6.0 - 8.3 11/23 Specimen Type: PLASMA No comment entered. Ordering Provider: AILIN CHESTER Report Released Date/Time: Nov 23, 2022 11:58 AM Reporting Lab: [facility] [address] Performing Lab: [place] [phone] [place] ([facility]) COMPREHEN SIVE METABOLIC PANEL+MG ALBUMIN [MASS/VOLUM E] IN SERUM OR PLASMA 4.1 3.5 - 5.2 11/23 Specimen Type: PLASMA No comment entered. Ordering Provider: AILIN CHESTER Report Released Date/Time: Nov 23, 2022 11:58 AM Reporting Lab: [facility] [address] Performing Lab: [facility] [address] [place] ([facility]) COMPREHEN SIVE METABOLIC PANEL+MG BILIRUBIN.T OTAL [MASS/VOLUM E] IN SERUM OR PLASMA 0.5 0.2 - 1.2 11/23 Specimen Type: PLASMA No comment entered. Ordering Provider: AILIN CHESTER Report Released Date/Time: Nov 23, 2022 11:58 AM Reporting Lab: [facility] [address] Performing Lab: [facility] [address] [place] ([facility]) COMPREHEN SIVE METABOLIC PANEL+MG MAGNESIUM [MASS/VOLUM E] IN SERUM OR PLASMA 1.4 1.6 - 2.6 11/23 L Specimen Type: PLASMA No comment entered. Ordering Provider: AILIN CHESTER Report Released Date/Time: Nov 23, 2022 11:58 AM Reporting Lab: [address] Performing Lab: [address] ([facility]) COMPREHEN SIVE METABOLIC PANEL+MG ANION GAP IN SERUM OR PLASMA 13 5 - 15 11/23 Specimen Type: PLASMA No comment entered. Ordering Provider: AILIN CHESTER Report Released Date/Time: Nov 23, 2022 11:58 AM Reporting Lab: [place] [id number] Performing Lab: [address] ([facility]) COMPREHEN SIVE METABOLIC PANEL+MG ALKALINE PHOSPHATASE [ENZYMATIC ACTIVITY/VO LUME] IN SERUM OR PLASMA 87 40 - 150 11/23 Specimen Type: PLASMA No comment entered. Ordering Provider: AILIN CHESTER Report Released Date/Time: Nov 23, 2022 11:58 AM Reporting Lab: [facility] [address] Performing Lab: [facility] [address] [place] ([facility]) COMPREHEN SIVE METABOLIC PANEL+MG ALANINE AMINOTRANSF ERASE [ENZYMATIC ACTIVITY/VO LUME] IN SERUM OR PLASMA 28 11/23 Specimen Type: PLASMA No comment entered. Ordering Provider: AILIN CHESTER Report Released Date/Time: Nov 23, 2022 11:58 AM Reporting Lab: [facility] [address] Performing Lab: [facility] [id number] [place] [address] ([facility]) COMPREHEN SIVE METABOLIC PANEL+MG ASPARTATE AMINOTRANSF ERASE [ENZYMATIC ACTIVITY/VO LUME] IN SERUM OR PLASMA 33 11/23 Specimen Type: PLASMA No comment entered. Ordering Provider: AILIN CHESTER Report Released Date/Time: Nov 23, 2022 11:58 AM Reporting Lab: [facility] [address] Performing Lab: [facility] [address] [place] ([facility]) COMPREHEN SIVE METABOLIC PANEL+MG GLOMERULAR FILTRATION RATE/1.73 SQ M.PREDICTED [VOLUME RATE/AREA] IN SERUM, PLASMA OR BLOOD BY CREATININE- BASED FORMULA (CKD-EPI 2020) 61 11/23 Specimen Type: PLASMA No comment entered. Ordering Provider: AILIN CHESTER Report Released Date/Time: Nov 23, 2022 11:58 AM Reporting Lab: [facility] [address] Performing Lab: [facility] [address] [place] ([facility]) HEMOGLOBI N A1C HEMOGLOBIN A1C/HEMOGLO BIN.TOTAL [...] Nov 23, 2022 11:58 AM Reporting Lab: [facility] [address] Performing Lab: [facility] [address] [place] ([facility]) Vital Signs Combined list of inpatient [...] months. 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 Location Location Details Encounter Type Encounter Number Reason For Visit Attending Provider ADM Date DC Date Status Disposition Source [place] [facility] Outpatient Encounter [id number] 03/29 [facility] [place] [facility] Outpatient Encounter [id number] 04/05 [facility] [place] [facility] Outpatient Encounter [id number] 07/31 [facility] [place] [facility] Outpatient Encounter [id number] 08/21 [facility] [place] [facility] Outpatient Encounter [id number] 09/20 [facility] Outpatient Encounter [id number] 11/11 [facility] [place] [facility] Outpatient Encounter [id number] ZARI POWER 11/16 [place] [facility] [place] [facility] Outpatient [facility]counter [id number] 11/21 [place] [facility] ([facility] OFFICE O/P EST MOD 30-39 MIN [id number] Diagnos is: ICD-10- CM Z00.00 Encntr for general adult medical exam w/o abnorma l finding s
CANDELARIO CHESTER 11/23 [place] [facility] ([facility]) [place] ([facility]) GAIT TRAINING THERAPY [id number] Diagnos is: ICD-10- CM R26.89 Other abnorma lities of gait and mobilit y
OMAYRA JAMESON V 11/23 [place] ([facility] [place] [facility] Outpatient Encounter [id number] SA RA Sandra JAMESON 12/11 [facility] [place] [facility] Outpatient Encounter [id number] 12/25 [place] [facility] [place] [facility] Outpatient Encounter [id number] SA RA Sandra JAMESON 12/28 [facility] [place] [facility] Outpatient Encounter [id number] 01/05 [place] [facility] [place] [facility] Outpatient Encounter [id number] 01/11 [place] [facility] [place] [facility] Outpatient Encounter [id number] 01/[address] [facility] ([facility]) OFFICE O/P EST HI 40-54 MIN [id number] Diagnos is: ICD-10- CM I50.9 Heart failure , unspeci fied
CANDELARIO CHESTER 01[facility]23 [facility] [place] [facility] Outpatient Encounter [id number] DELROYMarcus DIANA Hurley 01/24 [place] [facility] [place] [facility] Outpatient Encounter [id number] Danica TORRE AMI J 02/05 [place] [facility] [place] [facility] Outpatient Encounter [id number] 02/09 [place] [facility] [place] [facility] Outpatient Encounter [id number] Danica TORRE J 02/09 [place] [facility] [place] [facility] Outpatient Encounter [id number] 02/14 [place] [facility] [place] [facility] Outpatient Encounter [id number] 02/15 [place] [facility] [place] [facility] Outpatient Encounter [id number] 02/19 [place] [facility] [place] [facility] Outpatient Encounter [id number] 02/20 [place] [facility] [place] [facility] Outpatient Encounter [id number] 02/20 [place] [facility] [place] [facility] Outpatient Encounter [id number] 02/20 [place] [facility] [place] [facility] Outpatient Encounter [id number] 02/20 [place] [facility] [place] [facility] Outpatient Encounter [id number] 02/21 [place] [facility] [place] [facility] QNHP OL DIG ASSMT&MGMT 5-10 [id number] Diagnos is: ICD-10- CM E11.9 Type 2 diabete s mellitu s without complic ations< br/> [facility]USIVA [facility]-20 MIN [id number] Diagnos is: ICD-10- CM I50.9 Heart failure , unspeci fied
JERMAINE ALCANTAR 02/23 [place] ([facility] [place] [facility] Outpatient Encounter [id number] 02/26 [place] [facility] [place] [facility] Outpatient Encounter [id number] 03/01 [place] [facility] [place] [facility] Outpatient Encounter [id number] SA JAMARI JAMESON R 03/09 [place] [facility] [place] [facility] Outpatient Encounter [id number] 03/[address] [facility] [place] [facility] Outpatient Encounter [id number] SA TRINO RA R 04/12 [facility] [place] [facility] Outpatient Encounter [id number] SA TRINO RA R 04[facility] [place] [facility] Outpatient Encounter [id number] SA JAMARI JAMESON R 05/01 [facility] [place] [facility] Outpatient Encounter [id number] 07/11 [facility] [place] [facility] Outpatient Encounter [id number] [facility] [place] [facility] Outpatient Encounter [id number] 07/12 [facility] [place] [facility] HC PRO PHONE CALL 5-10 MIN [id number] Diagnos is: ICD-10- CM 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
VIV BARFIELD 07/19 [facility] [place] [facility] HEARING AID REPAIR/MOD IFYING [id number] Diagnos is: ICD-10- CM 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
CARY CORCORAN [facility] [facility] Social History Combined list of available smoking, tobacco, and other social history from Department of Defense and Veterans Affairs facilities. Social History Type Response Date Comment Sourc e Tobacco smoking status [facility] VA-TOBACCO FORMER USER 11/23/2022 [place] ([facility]) History of tobacco use NE-TOBACCO QUIT 1 5 YRS OR MORE 11/23/2022 [place] ([facility]) History of tobacco use VA-TOBACCO FORMER USER 11/29/2021 [place] ([facility]) History of tobacco use VA-TOBACCO FORMER USER 10/21/2020 [place] ([facility]) Plan of Care List of future care activities from Department of Veterans Affairs facilities. Additional future care activities may be listed in the Assessment and Plan section. Date/Time Care Activity Care Activity Detail Facili ty 09/18/2023 AMBULATORY - SURGERY AM[facility] - SURGERY [facility]
--- OUTSIDE RECORDS SUMMARY | 2023-08-29 09:05 | XMS_ITS | Encounter Summary ---
Author Name Unknown Organization [facility] Address [address] [place] [address] Care Team Providers Care Lock And Dam Repairer Name Role Phone SantosumJessica ramírezNataliotashi Mishra APRN, C.N.P., M.S.N. Primary C are Provider Reason for Visit * Appointment Request (Routine) - Closed Specialty Diagnoses / Procedures Referred By Edin mishra Referred To Contact Senior Care Facility Referral ID Status Reason Start Date Expiration Date Visits Re quested Visits Authorized [id number] Closed 06/07/2023 06/06/2024 1 1 Encounter Details Date Type Department Care Team (Latest Contact Info) Description 06/07/2023 3:00 PM WELL SERVICE FLOOR WORKER External Outreach Senior Services in [facility] [address] [place] [phone] Hannah Castillo APRN, C.N.P. [address] [place] [phone] Diabetes Mellitus Type 2 With Diabetic Polyneuropathy [...] Comments Blood Pressure 100/68 06/07/2023 2:42 PM WELL SERVICE FLOOR WORKER Pulse 78 06/07/2023 2:42 PM WELL SERVICE FLOOR WORKER Temperature 36.2 ??C (97.1 ??F) 06/07/2023 2:42 PM CS T Respiratory Rate 18 06/07/2023 2:42 PM WELL SERVICE FLOOR WORKER Oxygen Saturation 99% 06/07/2023 2:42 PM WELL SERVICE FLOOR WORKER Inhaled Oxygen Concentration - - Weight 76.1 kg (167 lb 12.8 oz) 06/07/2023 2:42 PM WELL SERVICE FLOOR WORKER Height - - Body Mass Index 24.78 04/12/2023 3:21 PM WELL SERVICE FLOOR WORKER documented in this encounter Patient Instructions * Patient Instructions* Hannah Castillo APRN, C.N.P. - 06/07/2023 3:00 PM WELL SERVICE FLOOR WORKER ORDERS and INSTRUCTIONS: Change the NovoLog to 8 units before meals. Continue blood sugar checks. Electronically signed by: Hannah Castillo APRN, C.N.P. 06/07/23 2:57 PM WELL SERVICE FLOOR WORKER SERVICE FLOOR WORKER documented in this encounter Progress Notes * Hannah Castillo APRN, C.N.P. - 06/07/2023 3:00 PM CST CHIEF COMPLAINT / REASON FOR VISIT [facility] Follow Up Visit Visit Type: In [...] orders to facility. Total time 30 minutes. SERVICE FLOOR WORKER documented in this encounter Miscellaneous Notes * [...] tight glycemic control but to prevent hypoglycemia. SERVICE FLOOR WORKER documented in this encounter Plan of Treatment Not on file documented as of this encounter Visit Diagnoses Diagnosis Diabetes Mellitus Type 2 With Diabetic Polyneuropathy (HCC)- Primary documented in this encounter Care Teams Lock And Dam Repairer Relationship Specialty Start Date End Date Natalio Motta APRN C.N.P., M.S.N. [address] [place] [phone] PCP - General Internal Medicine 04/10/23 08/27/23 documented as of this encounter
--- OUTSIDE RECORDS SUMMARY | 2023-08-29 09:05 | XMS_ITS | Encounter Summary ---
Author Name Unknown Organization [facility] Address [address] [place] [address] Care Team Providers Care Hydro Generation Manager Name Role Phone Natalio Motta APRN C.N.PCarito, M.S.N. Primary C are Provider Reason for Visit * Appointment Request (Routine) - Closed Specialty Diagnoses / Procedures Referred By Edin salmeron Referred To Contact [facility] Facility Referral ID Status Reason Start Date Expiration Date Visits Re quested Visits Authorized [id number] Closed 06/05/2023 06/04/2024 1 1 Encounter Details Date Type Department Care Team (Latest Contact Info) Description 06/05/2023 3:00 PM AIRWORTHINESS INSPECTOR External Outreach Senior Services in [facility] [address] [place] [phone] Natalio Motta APRN C.N.P., M.S.N. [address] [place] [phone] Hypothyroidism (Primary Dx); Weakness General; Amputation Toe [...] Comments Blood Pressure 120/70 06/05/2023 4:30 PM AIRWORTHINESS INSPECTOR Pulse 81 06/05/2023 4:30 PM AIRWORTHINESS INSPECTOR Temperature 36.3 ??C (97.4 ??F) 06/05/2023 4:30 PM CS T Respiratory Rate 18 06/05/2023 4:30 PM AIRWORTHINESS INSPECTOR Oxygen Saturation 100% 06/05/2023 4:30 PM AIRWORTHINESS INSPECTOR Inhaled Oxygen Concentration - - Weight 76.6 kg (168 lb 12.8 oz) 06/05/2023 4:30 PM AIRWORTHINESS INSPECTOR Height - - Body Mass Index 24.93 04/12/2023 3:21 PM AIRWORTHINESS INSPECTOR documented in this encounter Progress Notes * Natalio Motta, RAYNA, C.N.P., M.S.N. - 06/05/2023 3:00 PM CST CHIEF COMPLAINT / REASON FOR VISIT [facility] Acute Visit Visit Type: In Person: Face to Face SUBJECTIVE Today's narrative history (obtained from Patient and Nursing): HISTORY OF PRESENT ILLNESS Darek Bowers is a 83 y.o. male resident at [facility]. 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 global supply chain vice president confirmed levothyroxine is given every morning (6am) without other medications. Therefore, we will increase levothyroxine 50mcg [id number] and rechecked TSH in 6 weeks. Nursing instructed to continue monitoring for symptoms of hypothyroidism and contact [facility] provider if any concerns. Orders: - S-TSH [...] family, and/or facility staff. Totaltime 20 minutes. ORTHINESS INSPECTOR documented in this encounter Miscellaneous Notes * Assessment & Plan Note - Natalio Motta APRN C.N.P., M.S.N. - 06/05/2023 9:26 PM CSTAssociated Problem(s): Weakness General Denied weakness. We will continue therapy. ORTHINESS INSPECTOR * Assessment & Plan Note - Natalio Motta APRN, C.N.P., M.S.N. - 06/05/2023 9:25 PM CSTAssociated Problem(s): Hypothyroidism TSH value improved compared to prior value of 16.0 a month ago. Resident /nursing denied symptoms of hypothyroidism. Last T4 was 0.92 in April 2023. global supply chain vice president confirmed levothyroxine is given every morning (6am) without other medications. Therefore, we will increase levothyroxine 50mcg [id number] and rechecked TSH in 6 weeks. Nursing instructed to continue monitoring for symptoms of hypothyroidism and contact [facility] provider if any concerns. 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 [phone] PCP - General Internal Medicine 04/10/23 08/27/23 documented as of this encounter
--- OUTSIDE RECORDS SUMMARY | 2023-08-29 09:05 | XMS_ITS ---
Author Name Unknown Organization [facility] Address [address] [place] [address] Care Team Providers Care Stereotype Caster Name Role Phone Unavailable Unavailable Unavailable Surgery Details Not on file Complications Check Surgery Details section. Procedure Estimated Blood Loss Check Surgery Details section. Procedure Findings Check Surgery Details section. Procedure Specimens Taken Check Surgery Details section.
--- OUTSIDE RECORDS SUMMARY | 2023-08-29 09:05 | XMS_ITS | Encounter Summary ---
Author Name Unknown Organization [facility] Address [address] [place] [address] Care Team Providers Care Card Table Attendant Name Role Phone Jessica Mottatashi Mishra APRN, C.N.P., M.S.N. Primary C are Provider Encounter Details Date Type Department Care Team (Late st Contact Info) Description 06/03/2023 Clinical Communication Senior Services in [facility] [address] [place] [phone] Laura Grover M.D. [address], [place] [phone] Social History Tobacco Use Types [...] by: Laura Enriquez M.D. 06/03/23 3:18 PM OYSTER PREPARER ER PREPARER documented in this encounter Plan of Treatment Not on file documented as of this encounter Visit Diagnoses Not on filedocumented in this encounter Care Teams Card Table Attendant Relationship Specialty Start Date End Date Natalio Motta APRN, C.N.P., M.S.N. [address] [place] [phone] PCP - General Internal Medicine 04/10/23 08/27/23 documented as of this encounter
--- OUTSIDE RECORDS SUMMARY | 2023-08-29 09:05 | XMS_ITS | Encounter Summary ---
Author Name Unknown Organization [facility] Address [address] [place] [address] Care Team Providers Care Chemical Dependency Professional Name Role Phone Santosumdarrell Natalio Mishra APRN, C.N.P., M.S.N. Primary C are Provider Reason for Visit * Appointment Request (Routine) - Closed Specialty Diagnoses / Procedures Referred By Edin mishra Referred To Contact [facility] Facility Referral ID Status Reason Start Date Expiration Date Visits Re quested Visits Authorized [id number] Closed 06/18/2023 06/17/2024 1 1 Encounter Details Date Type Department Care Team (Latest Contact Info) Description 06/18/2023 3:00 PM ROOFER GYPSUM External Outreach Senior Services in [facility] [address], [place] [phone] Hannah Castillo APRN, C.N.P. 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; Hypertension Heart Disease With Congestive Heart Failure (HCC); Hyperlipidemia; Hyperglycemia; Diabetes Mellitus Type 2 With Diabetic Polyneuropathy (HCC); Dementia (HCC); Congestive Heart Failure (HCC); Atrial Fibrillation Other Persistent (HCC); 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; Atherosclerosis Of Hamilton Arteries Of Other Extremities With Ulceration (HCC); [...] Comments Blood Pressure 107/66 06/18/2023 1:06 PM ROOFER GYPSUM Pulse 78 06/18/2023 1:06 PM ROOFER GYPSUM Temperature 36.6 ??C (97.8 ??F) 06/18/2023 1:06 PM CS T Respiratory Rate 16 06/18/2023 1:06 PM ROOFER GYPSUM Oxygen Saturation 92% 06/18/2023 1:06 PM ROOFER GYPSUM Inhaled Oxygen Concentration - - Weight 75.8 kg (167 lb) 06/18/2023 1:06 PM ROOFER GYPSUM Height - - Body Mass Index 24.66 04/12/2023 3:21 PM ROOFER GYPSUM documented in this encounter Patient Instructions * Patient Instructions* Hannah Castillo V., RAYNA, C.N.P. - 06/18/2023 3:00 PM ROOFER GYPSUM ORDERS and INSTRUCTIONS: Face to face discharge [...] Hannah Castillo APRN, C.NLucio 06/18/23 2:09 PM ROOFER GYPSUM ER GYPSUM documented in this encounter Progress Notes * Hannah Castillo APRN, C.NLucio - 06/18/2023 3:00 PM CST CHIEF COMPLAINT / REASON FOR VISIT [facility] Discharge Visit Visit Type: In Person: Face to Face SUBJECTIVE HISTORY OF PRESENT ILLNESS Today's narrative history (obtained from Patient, Nursing, and PT/OT): From record: Rosalina was admitted to [facility] on 04/30 with abdominal pain found secondary to constipation. He had acute kidney injury and was hydrated and furosemide was held with dosage decreased. He also had urine infection and was treated with IV antibiotics. He returned to [facility] on 05/03 to continue therapies. He [...] side. #2 Amputation Toe Status Post Left ([facility]) Overview: History of amputation of toe #3 Wound Ankle Open Subsequent Left Overview: 04/25/23: Nursing reported left lower calf/ankle redness. #4 Advanced Care Planning Overview: Full code status #5 Fpc Use Of Insulin Active ([facility]) Overview: On insulin glargine and aspart started during hospitalization December 2022. #6 Hypothyroidism Overview: Component Ref Range & Units 1 mo ago 04/24/23 1 mo ago 04/13/23 2 mo ago 03/11/23 EXT TSH, Sensitive, S 0.27 - 4.20 uIU/mL 16.80 18.20 11.70 #7 Congestive Heart Failure ([facility]) Overview: EF: ECHO with EF 10-20% on [...] nursing note reviewed. Exam conducted with a ocean fishing guide present. Constitutional Appearance: Normal appearance. HENT Head: [...] standard wheelchair Mr. Woods was admitted to [facility] April 10 following BK [...] daily. #2 Amputation Toe Status Post Left ([facility]) Assessment & Plan: Stable #3 Wound Ankle [...] Plan: He will be full code #5 Automated Access Systems Technician Use Of Insulin Active ([facility]) Assessment & Plan: Nurse reports he is nonadherent to his diabetic diet. He is also on a sliding scale. #6 Hypothyroidism Assessment & Plan: Increase levothyroxine to 50 mcg daily. correction may give two 25 mcg tablets to equal 50 mcg. He will be discharging in a week #7 Congestive Heart Failure ([facility]) Assessment & Plan: Stable on current meds #8 Atrial Fibrillation Other Persistent ([facility]) Assessment & Plan: long term care social worker anticoagulation on apixaban #9 Dementia ([facility]) Assessment & Plan: He has low hearing which could contribute to him not understanding #10 Diabetes Mellitus Type 2 With Diabetic Polyneuropathy ([facility]) Assessment & Plan: Insulin dependent not always compliant with diet. Glargine will be increased to 17 units. #11 Hyperglycemia Assessment & Plan: A1C 7.2 He will follow up with his PCP in [place] #12 Hyperkalemia #13 Hyperlipidemia Assessment & Plan: Stay on statin #14 Weakness General Assessment & Plan: He is getting stronger with therapy. He will continue therapy when he gets his prosthesis. He will have a wheelchair upon discharge. #15 Peripheral Vascular Disease ([facility]) Assessment & Plan: Monotor Other orders - [...] (40 mg total) by mouth daily., Starting Niukra 05/24/2023, Until Sun05/23/2024, Normal - nitroglycerin (NITROSTAT) [...] were ordered. Follow up with PCP in [place] and [facility] as scheduled. PATIENT EDUCATION Ready to learn, [...] orders to facility. Total time 50 minutes. 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 Hypertension Heart Disease With Congestive Heart Failure (HCC) Hyperlipidemia Hyperglycemia Diabetes Mellitus Type 2 With Diabetic Polyneuropathy (HCC) Dementia (HCC) Congestive Heart Failure (HCC) Atrial Fibrillation Other Persistent (HCC) 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 [address] [place] [phone] PCP - General Internal Medicine 04/10/23 08/27/23 documented as of this encounter
--- OUTSIDE RECORDS SUMMARY | 2023-08-29 09:05 | XMS_ITS | Referral Summary ---
Author Name Unknown Organization [facility] Address [address] [place] [address] Care Team Providers Care Physical Trainer Name Role Phone Elsewhere, Pcp Primary Care Provider Unavailabl e Source Comments Patient records contain information from all sites at [facility]. For routine questions regarding patient records, call [phone] during business hours, M-F 8:00 AM - 5:00 PM Central Time. Record requests for emergency care only can be directed to [phone] at any time.[facility] Encounters Date Type Department Care Team Description 06/18/2023 3:00 PM CONSTRUCTION CODE ADMINISTRATOR External Outreach Senior Services in [place] [address] [address] Hannah Castillo V., RAYNA, C.N.P. 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 Coronary Artery Without Angina Pectoris; Atherosclerosis Of [place] Arteries Of Other Extremities With Ulceration (HCC); Anemia Iron Deficiency; Amputation Toe Status Post Left (HCC); 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); Advanced Care Planning 06/14/2023 10:00 AM CONSTRUCTION CODE ADMINISTRATOR External Outreach Senior Services in [place] [address] [phone] Hannah Castillo APRN C.N.P. Pressure Injury (Ulcer) Of Left Heel Stage 3 (HCC) (Primary Dx); Other Complications Of Amputation Stump (HCC) 06/07/2023 3:00 PM CONSTRUCTION CODE ADMINISTRATOR External Outreach Senior Services in [place] [address] [address] Hannah Castillo APRN, C.N.P. Diabetes Mellitus Type 2 With Diabetic Polyneuropathy (HCC) (Primary Dx) 06/05/2023 3:00 PM CONSTRUCTION CODE ADMINISTRATOR External Outreach Senior Services in [place] [address] [phone] Natalio Motta APRN, C.N.P., M.S.N. Hypothyroidism (Primary Dx); Weakness General; Amputation Toe Status Post Left (HCC); 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) 06/03/2023 Clinical Communication Senior Services in [facility] [address] [place] [address] Laura Jones M.D. 05/31/2023 10:00 AM [facility] External Outreach Senior Services in [place] [address] [address] Hannah Castillo APRN, C.N.P. Pressure Injury (Ulcer) Of Left Heel Stage 3 (HCC) (Primary Dx) from Last 3 Months Allergies No known active allergies Medications Medication Sig Dispensed Refills Start Date End Date Status blood sugar diagnostic strips (Contour Next Test Strips) Dispense item covered by pt ins. E10.9 IDDM type I - Test 4 times/day. Reason: complicated diabetes. 05/31/2022 Active sennosides-docusa te sodium (SENOKOT-S) 8.6-50 mg per tablet Take 2 tablets by mouth 2 (two) times a day. Active nitroglycerin (NITROSTAT) 0.4 mg SL tablet [...] 2 (two) times a day. 14 tablet 06/03/2023 Active acetaminophen (TYLENOL) 325 mg tablet [...] right lower back for pain.. 100 g 06/18/2023 06/17/2024 Active emollient cream, VANICREAM, Apply 1 Application topically 2 (two) times a day. Apply to bilateral lower extremities for dry skin. 120 g 06/18/2023 Active furosemide (LASIX) 20 mg tablet [...] needed for irritation or rash. 15 g 06/18/2023 Active metoprolol succinate (TOPROL-XL) 25 mg [...] day as needed for irritation. 30 g 06/18/2023 Active polyethylene glycol (MIRALAX) 17 gram powder packet Take 1 packet (17 g total) by mouth daily. 90 packet 3 06/18/2023 06/17/2024 Active peg 400-propylene glycol, PF, (SYSTANE) 0.4-0.3 % ophthalmic solution Administer 2 drops into both eyes at bedtime as needed for dry eyes. 1 each 06/18/2023 Active levothyroxine (SYNTHROID, LEVOTHROID) 75 mcg [...] Heel: Area continues to improve. Wound measures 1.0onP1up. Edges well defined, attached and 100% re-epithelialized [...] will follow up with his PCP in [place] (Current) Anticoagulant Treatment 08/2022 Overview: On apixaban [...] standard wheelchair Mr. Woods was admitted to [facility] April 10 following BK right lower [...] was 0.92 in April 2023. vice president quality confirmed levothyroxine is given every morning (6am) without other medications. Therefore, we will increase levothyroxine 50mcg to 75mcg and rechecked TSH in 6 weeks. Nursing instructed to continue monitoring for symptoms of hypothyroidism and contact [place] provider if any concerns. 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 [...] and palpitation. Atherosclerotic Heart Diseas e Of [place] Coronary Artery Without Angina Pectoris 01/15/2023 Overview: [...] 6 Anticoagulation: Apixaban Last Assessment & Plan: [facility] anticoagulation on apixaban Care Home Use Of Insulin Active 12/09/2022 Overview: On [...] control but to prevent hypoglycemia. Atherosclerosis Of [place] Ar teries Of Other Extremities With Ulceration [...] for COVID-19 12/27/2022. Treated with remdesivir at [facility]. Anemia 01/16/2023 04/12/2023 Overview: Lab Results [...] 05/24/2023 Overview: Onychomycosis of toenails; Original Code: [id number] Original Codesystem: SNOMED CT Classification: Medical Confirmation [...] Comments Blood Pressure 107/66 06/18/2023 1:10 PM CONSTRUCTION CODE ADMINISTRATOR Pulse 78 06/18/2023 1:10 PM CONSTRUCTION CODE ADMINISTRATOR Temperature 36.6 ??C (97.8 ??F) 06/18/2023 1:10 PM CS T Respiratory Rate 16 06/18/2023 1:10 PM CONSTRUCTION CODE ADMINISTRATOR Oxygen Saturation 95% 06/18/2023 1:10 PM CONSTRUCTION CODE ADMINISTRATOR Inhaled Oxygen Concentration - - Weight 75.8 kg (167 lb) 06/18/2023 1:10 PM CONSTRUCTION CODE ADMINISTRATOR Height 175.3 cm (5' 9) 04/12/2023 3:21 PM CONSTRUCTION CODE ADMINISTRATOR Body Mass Index 24.66 04/12/2023 3:21 PM CONSTRUCTION CODE ADMINISTRATOR Plan of Treatment Not on file Advance Directives For more information, please contact: [phone] * DNR/DNI (Latest Code Status on File) Date Activated Date Inactivated Comments 05/24/2023 6:14 PM * DNR/DNI Date Activated Date Inactivated Comments 04/12/2023 4:11 PM 04/16/2023 7:15 AM Care Teams Physical Trainer Relationship Specialty Start Date End Date Elsewhere, Pcp PCP - General Internal Medicine 08/28/23
--- OUTSIDE RECORDS SUMMARY | 2023-08-29 09:05 | XMS_ITS | Encounter Summary ---
Author Name Unknown Organization [facility] Address [address] [place] [address] Care Team Providers Care Retail Banker Name Role Phone SantosumJessica ramírezNataliotashi Mishra APRN, C.N.P., M.S.N. Primary C are Provider Reason for Visit * Appointment Request (Routine) - Closed Specialty Diagnoses / Procedures Referred By Edin mishra Referred To Contact [facility] Referral ID Status Reason Start Date Expiration Date Visits Re quested Visits Authorized [id number] Closed 06/13/2023 06/12/2024 1 1 Encounter Details Date Type Department Care Team (Latest Contact Info) Description 06/14/2023 10:00 AM EMG TECHNICIAN External Outreach Senior Services in [facility] [address] [address] Hannah Castillo APRN, C.N.P. [address] [place] [address] [place] [phone] Pressure Injury (Ulcer) Of Left Heel Stage [...] Comments Blood Pressure 123/68 06/14/2023 9:54 AM EMG TECHNICIAN Pulse 68 06/14/2023 9:54 AM EMG TECHNICIAN Temperature 36.2 ??C (97.1 ??F) 06/14/2023 9:54 AM CS T Respiratory Rate 18 06/14/2023 9:54 AM EMG TECHNICIAN Oxygen Saturation - - Inhaled Oxygen Concentration - - Weight 77.4 kg (170 lb 9.6 oz) 06/14/2023 9:54 A M EMG TECHNICIAN Height - - Body Mass Index 25.19 04/12/2023 3:21 PM EMG TECHNICIAN documented in this encounter Patient Instructions * Patient Instructions* Hannah Castillo APRN, C.N.P. - 06/14/2023 10:00 AM EMG TECHNICIAN ORDERS and INSTRUCTIONS: Heel wound 1: Gently cleanse area with NS. Pat dry. 2. Skin prep to gonsalo-wound. 3. Santyl to wound bed only. 4. Place gauze over wound. 5. cover with island dressing. 6. Change dressing daily. Right stump wound Cleanse daily and apply a thin layer of silverstat and gauze. Electronically signed by: Hannah Castillo APRN, C.N.P. 06/15/23 4:20 PM EMG TECHNICIAN TECHNICIAN documented in this encounter Progress Notes * Hannah Castillo APRN, C.N.P. - 06/14/2023 10:00 AM CST CHIEF COMPLAINT / REASON FOR VISIT [facility] Follow Up Visit Visit Type: [...] Heel: Area continues to improve. Wound measures 1.9rsR8ls. Edges well defined, attached and 100% re-epithelialized [...] orders to facility. Total time 30 minutes. TECHNICIAN documented in this encounter Miscellaneous Notes * Assessment & Plan Note - Hannah Castillo APRN, C.N.P. - 06/15/2023 4:18 PM CSTAssociated Problem(s): Other Complications Of Amputation Stump (HCC) The wound bed is clean. A thin layer of silver stat will be applied with a gauze. Change daily. TECHNICIAN * Assessment & Plan Note - Hannah [...] with home nursing for wound care . 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 [address] [place] [phone] PCP - General Internal Medicine 04/10/23 08/27/23 documented as of this encounter
--- OUTSIDE RECORDS SUMMARY | 2023-08-29 09:05 | XMS_ITS | Clinical Summary ---
Author Name Unknown Organization [facility] Address [address] [place] [address] Care Team Providers Care Mathematician Name Role Phone Elsewhere, Pcp Primary Care Provider Unavailabl e Source Comments Patient records contain information from all sites at [facility]. For routine questions regarding patient records, call [phone] during business hours, M-F 8:00 AM - 5:00 PM Central Time. Record requests for emergency care only can be directed to [phone] at any time.[facility] Allergies No known active allergies Medications Medication [...] Heel: Area continues to improve. Wound measures 1.7tzS4mc. Edges well defined, attached and 100% re-epithelialized [...] will follow up with his PCP in [place] [employer] Ble[employer] Range Back Tender (Current) Anticoagulant Treatment 08/2022 Overview: On apixaban [...] standard wheelchair Mr. Woods was admitted to [facility] April 10 following BK [...] Last T4 was 0.92 in April 2023. advanced manufacturing vice president confirmed levothyroxine is given every morning (6am) without other medications. Therefore, we will increase levothyroxine 50mcg to 75mcg and rechecked TSH in 6 weeks. Nursing instructed to continue monitoring for symptoms of hypothyroidism and contact [place] provider if any concerns. 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 [...] and palpitation. 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 Atherosclerosis Of [place] Ar teries Of Other Extremities With Ulceration [...] for COVID-19 12/27/2022. Treated with remdesivir at [facility]. 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 Pressure Injury (Ulcer) Of Left Heel Stage 3 (HCC) (Primary Dx); Other Complications Of Amputation Stump (HCC) 06/07/2023 3:00 PM COLOR TESTER External Outreach Senior Services in [place] [address] [address], [place] [address] Hannah Castillo APRN, C.N.P. 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 Hypothyroidism (Primary Dx); Weakness General; Amputation Toe Status Post Left (HCC); 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) 06/03/2023 Clinical Communication Senior Services in [facility] [address] [place] [phone] Laura Jones M.D. 05/31/2023 10:00 AM COLOR TESTER External Outreach Senior Services in [facility] [address] [address] Hannah Castillo APRN, C.N.P. Pressure Injury (Ulcer) Of Left Heel Stage 3 (HCC) (Primary Dx) from Last 3 Months Social History Tobacco [...] Comments Blood Pressure 107/66 06/18/2023 1:10 PM COLOR TESTER Pulse 78 06/18/2023 1:10 PM COLOR TESTER Temperature 36.6 ??C (97.8 ??F) 06/18/2023 1:10 PM CS T Respiratory Rate 16 06/18/2023 1:10 PM COLOR TESTER Oxygen Saturation 95% 06/18/2023 1:10 PM COLOR TESTER Inhaled Oxygen Concentration - - Weight 75.8 kg (167 lb) 06/18/2023 1:10 PM COLOR TESTER Height 175.3 cm (5' 9) 04/12/2023 3:21 PM COLOR TESTER Body Mass Index 24.66 04/12/2023 3:21 PM COLOR TESTER Plan of Treatment Health Maintenance Due Date Last Done Comments Hepatitis B Vaccines (1 of 3 - Risk 3-dose series) 2001 COVID-19 Vaccine (5 - 2022-2 4 season) 2023 03/29/2022, 03/09/2021, 07/24/2020, Additional history exists Influenza Vaccine (#1) 2023 , 03/09/2021, 03/09/2021, Additional history exists Fall Risk Screen (Annual) 05/14/2023 DTaP,Tdap,and Td Vaccines (2 - Td or Tdap) 01/21/2031 01/21/2021, 03/06/2006 Pneumococcal vaccine (65+ years) Completed 01/21/2015, 02/09/2011, 03/06/2006 Zoster Vaccines Completed 01/21/2021, 10/21/2020 Advance Directives For more information, please contact: [phone] * DNR/DNI (Latest Code Status on File) Date Activated Date Inactivated Comments 05/24/2023 6:14 PM * DNR/DNI Date Activated Date Inactivated Comments 04/12/2023 4:11 PM 04/16/2023 7:15 AM Care Teams Mathematician Relationship Specialty Start Date End Date Elsewhere, Pcp PCP - General Internal Medicine 08/28/23
--- OUTSIDE RECORDS SUMMARY | 2023-08-29 09:05 | XMS_ITS | Encounter Summary ---
Author Name Unknown Organization [facility] Address [address] [place] [address] Care Team Providers Care Imaging Center Manager Name Role Phone SantosumJessica ramírezNataliotashi Mishra APRN, C.N.P., M.S.N. Primary C are Provider Reason for Visit * Appointment Request (Routine) - Closed Specialty Diagnoses / Procedures Referred By Edin mishra Referred To Contact Senior Living Facility Referral ID Status Reason Start Date Expiration Date Visits Re quested Visits Authorized [id number] Closed 05/31/2023 05/30/2024 1 1 Encounter Details Date Type Department Care Team (Latest Contact Info) Description 05/31/2023 10:00 AM LMFT External Outreach Senior Services in [facility] [address], [place] [address] Hannah Castillo APRN, C.N.P. [address] [place] [address] [place] [phone] Pressure Injury (Ulcer) Of Left Heel Stage [...] Comments Blood Pressure 103/66 05/31/2023 9:47 AM LMFT Pulse 77 05/31/2023 9:47 AM LMFT Temperature 36.2 ??C (97.1 ??F) 05/31/2023 9:47 AM CS T Respiratory Rate 18 05/31/2023 9:47 AM LMFT Oxygen Saturation 100% 05/31/2023 9:47 AM LMFT Inhaled Oxygen Concentration - - Weight 72.8 kg (160 lb 9.6 oz) 05/31/2023 9:47 A M LMFT Height - - Body Mass Index 23.72 04/12/2023 3:21 PM LMFT documented in this encounter Patient Instructions * Patient Instructions* Hannah Castillo APRN, C.N.P. - 05/31/2023 10:00 AM LMFT ORDERS and INSTRUCTIONS: Acute visit done: Wound cleansed with saline and dried wound culture obtained. Aquacel AG cut to fit wound bed and lightly moistened with saline covered with border dressing. Change bid. REFRIGERATION SERVICE TECHNICIAN to evaluate in one week Electronically signed by: Hannah Castillo APRN, C.N.P. 06/01/23 2:33 PM LMFT documented in this encounter Progress Notes * Hannah Castillo APRN, C.N.P. - 05/31/2023 10:00 AM CST CHIEF COMPLAINT / REASON FOR VISIT [facility] Acute Visit Visit Type: In Person: [...] with border dressing.Change bid. Alverto ALEGRE, nurse manager payroll assisted with wound care. Past medical/surgical history, [...] & Plan: Continue wound care and have REFRIGERATION SERVICE TECHNICIAN evaluate in one week. PATIENT EDUCATION Ready [...] orders to facility. Total time 30 minutes. documented in this encounter Miscellaneous Notes * Assessment & Plan Note - Hannah Castillo APRN, C.N.P. - 06/01/2023 2:33 PM CSTAssociated Problem(s): Pressure Injury (Ulcer) Of Left Heel Stage 3 (HCC) Continue wound care and have REFRIGERATION SERVICE TECHNICIAN evaluate in one week. 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 [address] [place] [phone] PCP - General Internal Medicine 04/10/23 08/27/23 documented as of this encounter
--- OUTSIDE RECORDS SUMMARY | 2023-08-29 09:06 | XMS_ITS | Encounter Summary ---
Author Name Unknown Organization [facility] Address [address] [place] [address] Care Team Providers Care Patent Searcher Name Role Phone SantosumJessica ramírezNataliotashi Mishra APRN, C.N.P., M.S.N. Primary C are Provider Reason for Visit * Appointment Request (Routine) - Closed Specialty Diagnoses / Procedures Referred By Edin mishra Referred To Contact Intermediate Facility Referral ID Status Reason Start Date Expiration Date Visits Re quested Visits Authorized [id number] Closed 05/23/2023 05/22/2024 1 1 Encounter Details Date Type Department Care Team (Latest Contact Info) Description 05/24/2023 3:00 PM LABORATORY COURIER External Outreach Senior Services in [facility] [address] [phone] Hannah Castillo APRN, C.N.P. [address] [place] [address] [place] [phone] 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) (Primary Dx); Amputation Toe Status Post Left (HCC); Wound Ankle Open Subsequent Left; Advanced Care Planning; Long-Term Use Of Insulin Active (HCC); Hypothyroidism; Congestive [...] Comments Blood Pressure 107/66 06/18/2023 1:10 PM LABORATORY COURIER Pulse 78 06/18/2023 1:10 PM LABORATORY COURIER Temperature 36.6 ??C (97.8 ??F) 06/18/2023 1:10 PM CS T Respiratory Rate 16 06/18/2023 1:10 PM LABORATORY COURIER Oxygen Saturation 95% 06/18/2023 1:10 PM LABORATORY COURIER Inhaled Oxygen Concentration - - Weight 75.8 kg (167 lb) 06/18/2023 1:10 PM LABORATORY COURIER Height - - Body Mass Index 24.66 04/12/2023 3:21 PM LABORATORY COURIER documented in this encounter Patient Instructions * Patient Instructions* Hannah Castillo APRN, C.N.P. - 05/24/2023 3:00 PM LABORATORY COURIER ORDERS and INSTRUCTIONS: Face to face Discharge [...] wheelchair DME Medical Justification: Manual wheelchair A [id number] encounter was conducted on 05/24/23 by Hannah [...] 25 mcg tabs until discharge from the fdc Electronically signed by: Hannah Castillo APRN, C.N.PCarito 05/24/23 6:17 PM LABORATORY COURIER RATORY COURIER documented in this encounter H&P Notes * Hannah Castillo APRN, C.N.Dell. - 05/24/2023 3:00 PM CST CHIEF COMPLAINT / REASON FOR VISIT [facility] Discharge Visit Visit Type: In Person: Face to Face SUBJECTIVE HISTORY OF PRESENT ILLNESS Discharge visit updated 06/18/23 with face to face visit on 06/18/23 Today's narrative history (obtained from Patient, Nursing, and PT/OT): From record: Rosalina was admitted to on 04/30 with abdominal pain found secondary to constipation. He had acute kidney injury and was hydrated and furosemide was held with dosage decreased. He also had urine infection and was treated with IV antibiotics. He returned to [facility] on 05/03 to continue therapies. He [...] side. #2 Amputation Toe Status Post Left ([facility]) Overview: History of amputation of toe #3 Wound Ankle Open Subsequent Left Overview: 04/25/23: Nursing reported left lower calf/ankle redness. #4 Advanced Care Planning Overview: Full code status #5 Long-Term Use Of Insulin Active ([facility]) Overview: On insulin glargine and aspart started during hospitalization December 2022. #6 Hypothyroidism Overview: Component Ref Range & Units 1 mo ago 04/24/23 1 mo ago 04/13/23 2 mo ago 03/11/23 EXT TSH, Sensitive, S 0.27 - 4.20 uIU/mL 16.80 18.20 11.70 #7 Congestive Heart Failure ([facility]) Overview: EF: ECHO with EF 10-20% [...] Diabetes Mellitus Type 2 With Diabetic Polyneuropathy ([facility]) Overview: Lab Results Component Value Date [...] nursing note reviewed. Exam conducted with a assistant professor of criminal justice present. Constitutional Appearance: Normal appearance. HENT Head: [...] site #2 Amputation Toe Status Post Left ([facility]) Assessment & Plan: Stable #3 Wound Ankle Open Subsequent Left Assessment & Plan: Stable #4 Advanced Care Planning Assessment & Plan: He will be full code #5 Long-Term Use Of Insulin Active ([facility]) Assessment & Plan: Nurse reports he is nonadherent to his diabetic diet. He is also on a sliding scale. #6 Hypothyroidism Assessment & Plan: Increase levothyroxine to 50 mcg daily. residential may give two 25 mcg tablets to equal 50 mcg. He will be discharging in a week #7 Congestive Heart Failure ([facility]) Assessment & Plan: Stable on current meds #8 Atrial Fibrillation Other Persistent ([facility]) Assessment & Plan: intermediate manager anticoagulation on apixaban #9 Dementia ([facility]) Assessment & Plan: He has low hearing which could contribute to him not understanding #10 Diabetes Mellitus Type 2 With Diabetic Polyneuropathy ([facility]) Assessment & Plan: Insulin dependent not always compliant with diet. Glargine will be increased to 17 units. #11 Hyperglycemia Assessment & Plan: A1C 7.2 He will follow up with his PCP in [place] #12 Hyperkalemia #13 Hyperlipidemia Assessment & Plan: Stay on statin #14 Weakness General Assessment & Plan: He is getting stronger with therapy. He will continue therapy when he gets his prosthesis. He will have a wheelchair upon discharge. #15 Peripheral Vascular Disease ([facility]) Assessment & Plan: Monotor Other orders [...] were ordered. Follow up with PCP in [place] and [facility] as scheduled. PATIENT EDUCATION Ready [...] orders to facility. Total time 45 minutes. RATORY COURIER documented in this encounter Miscellaneous Notes * Assessment & Plan Note - Hannah Castillo APRN, C.N.P. - 05/24/2023 6:08 PM CSTAssociated Problem(s): Peripheral Vascular Disease (HCC) Monotor RATORY COURIER * Assessment & Plan Note - Hannah Castillo APRN, C.N.P. - 05/24/2023 6:05 PM CSTAssociated Problem(s): Weakness General He is getting stronger with therapy. He will continue therapy when he gets his prosthesis. He will have a wheelchair upon discharge. RATORY COURIER * Assessment & Plan Note - Hannah Castillo APRN, C.N.P. - 05/24/2023 6:01 PM CSTAssociated Problem(s): Hyperlipidemia Stay on statin RATORY COURIER * Assessment & Plan Note - Hannah Castillo APRN, C.N.P. - 05/24/2023 6:00 PM CSTAssociated Problem(s): Hyperglycemia A1C 7.2 He will follow up with his PCP in [place] RATORY COURIER * Assessment & Plan Note - Hannah Castillo APRN, C.N.P. 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 Glargine will be increased to 17 units. RATORY COURIER * Assessment & Plan Note - Hannah Castillo APRN, C.N.P. - 05/24/2023 5:57 PM CSTAssociated Problem(s): Dementia (HCC) He has low hearing which could contribute to him not understanding RATORY COURIER * Assessment & Plan Note - Hannah Castillo APRN, C.N.P. - 05/24/2023 5:53 PM CSTAssociated Problem(s): Atrial Fibrillation Other Persistent (HCC) [facility] anticoagulation on apixaban RATORY COURIER * Assessment & Plan Note - Hannah Castillo APRN, C.N.P. - 05/24/2023 5:52 PM CSTAssociated Problem(s): Congestive Heart Failure (HCC) Stable on current meds RATORY COURIER * Assessment & Plan Note - Hannah Castillo APRN C.N.P. - 05/24/2023 5:24 PM CSTAssociated Problem(s): Hypothyroidism Increase levothyroxine to 50 mcg daily. residential may give two 25 mcg tablets to equal 50 mcg. He will be discharging in a week RATORY COURIER * Assessment & Plan Note - Hannah Castillo APRN, C.N.P. - 05/24/2023 5:20 PM CSTAssociated Problem(s): Health Program Manager Use Of Insulin Active (HCC) Nurse reports he is nonadherent to his diabetic diet. He is also on a sliding scale. RATORY COURIER * Assessment & Plan Note - Hannah Castillo APRN, C.N.P. - 05/24/2023 5:19 PM CSTAssociated Problem(s): Amputation Toe Status Post Left (HCC) Stable RATORY COURIER * Assessment & Plan Note - Hannah [...] continue to provide support to amputation site RATORY COURIER * Assessment & Plan Note - Hannah Castillo APRN, C.N.P. - 05/24/2023 5:15 PM CSTAssociated Problem(s): Advanced Care Planning He will be full code RATORY COURIER * Assessment & Plan Note - Hannah Castillo APRN, C.N.P. - 05/24/2023 5:14 PM CSTAssociated Problem(s): Wound Ankle Open Subsequent Left (Resolved 05/24/2023) Stable RATORY COURIER * ACP (Advance Care Planning) - Hannah Castillo APRN, C.N.P. - 05/24/2023 3:00 PM CST Advance Care Planning Reason for Conversation This patient is a 83 y.o. year old male that presents for Discharge fdc visit. 1. 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 [address] [place] [phone] PCP - General Internal Medicine 04/10/23 08/27/23 documented as of this encounter
--- OUTSIDE RECORDS SUMMARY | 2023-08-29 09:06 | XMS_ITS | Encounter Summary ---
Author Name Unknown Organization [facility] Address [address] [place] [address] Care Team Providers Care Fire Loss Prevention Engineer Name Role Phone Natalio Motta APRN, C.N.PCarito, M.S.N. Primary C are Provider Reason for Visit * Reason Comments Follow-up on blood sugar management * Outpatient (Routine) - Closed Specialty Diagnoses / Procedures Referred By Edin salmeron Referred To Contact [facility] Natalio Motta APRN, C.N.PCarito, M.S.N. [address] [place] [phone] [facility] Region Referral ID Status Reason Start Date Expiration Date Visits Re quested Visits Authorized [id number] Closed 05/22/2023 05/21/2026 1 1 Encounter Details Date Type Department Care Team (Latest Contact Info) Description 05/29/2023 10:00 AM KILN PACKER External Outreach Senior Services in [facility] [address] [place] [phone] Natalio Motta APRN C.N.PCarito, M.S.N. [address] [place] [phone] Diabetes Mellitus Type 2 With Diabetic Polyneuropathy [...] Comments Blood Pressure 102/58 05/29/2023 4:07 PM KILN PACKER Pulse 86 05/29/2023 4:07 PM KILN PACKER Temperature 36.2 ??C (97.1 ??F) 05/29/2023 4:07 PM CS T Respiratory Rate - - Oxygen Saturation 100% 05/29/2023 4:07 PM KILN PACKER ra Inhaled Oxygen Concentration - - Weight 75.8 kg (167 lb) 05/29/2023 4:07 PM KILN PACKER Height - - Body Mass Index 24.66 04/12/2023 3:21 PM KILN PACKER documented in this encounter Progress Notes * Natalio Motta, RAYNA, C.N.P., M.S.N. - 05/29/2023 10:00 AM CST CHIEF COMPLAINT / REASON FOR VISIT [facility] Acute Visit Visit Type: In Person: Face to Face SUBJECTIVE Today's narrative history (obtained from Patient and Nursing): HISTORY OF PRESENT ILLNESS Darek Bowers is a 83 y.o. male resident at [facility]. 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 Totaltime 20 minutes. PACKER documented in this encounter Miscellaneous Notes * [...] sees his endocrinology as soon as possible. 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 [address] [place] [phone] PCP - General Internal Medicine 04/10/23 08/27/23 documented as of this encounter
--- OUTSIDE RECORDS SUMMARY | 2023-08-29 09:06 | XMS_ITS | Encounter Summary ---
Author Name Unknown Organization [facility] Address [address] [place] [address] Care Team Providers Care Medical Services Assistant Name Role Phone Natalio Motta APRN C.N.PCarito, M.S.N. Primary C are Provider Reason for Visit * Reason Onset Date Comments [facility] medication reconciliation Urinary Symptom 06/11/2023 * Appointment Request (Routine) - Closed Specialty Diagnoses / Procedures Referred By Edin salmeron Referred To Contact Longterm Facility Referral ID Status Reason Start Date Expiration Date Visits Re quested Visits Authorized [id number] Closed 04/10/2023 04/09/2024 1 1 Encounter Details Date Type Department Care Team (Latest Contact Info) Description 04/11/2023 3:00 PM DENTAL LABORATORY SUPERVISOR External Outreach Senior Services in [facility] [address] [place] [phone] Natalio Motta APRN, C.NLucio, M.S.N. 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 [...] And With Unspecified Stage Chronic Kidney Disease; Shelter Stay Certification Exam; Polypharmacy; Advanced Care Planning; [...] Comments Blood Pressure 112/72 04/12/2023 4:22 PM DENTAL LABORATORY SUPERVISOR Pulse 85 04/12/2023 4:22 PM DENTAL LABORATORY SUPERVISOR Temperature 36.6 ??C (97.8 ??F) 04/12/2023 4:22 PM CS T Respiratory Rate 18 04/12/2023 4:22 PM DENTAL LABORATORY SUPERVISOR Oxygen Saturation 97% 04/12/2023 4:22 PM DENTAL LABORATORY SUPERVISOR Room air Inhaled Oxygen Concentration - - Weight - - Height - - Body Mass Index - - documented in this encounter Progress Notes * Natalio Motta APRN, C.NLucio, M.S.N. - 04/11/2023 3:00 PM CST Encounter created to obtain urine specimen. AL LABORATORY SUPERVISOR documented in this encounter H&P Notes * Natalio Motta APRN C.N.P. - 04/11/2023 3:00 PM CST Images from the original note were not included. CHIEF COMPLAINT / REASON FOR VISIT [facility] Follow Up Visit Visit Type: In Person: Face to Face SUBJECTIVE HISTORY OF PRESENT ILLNESS Darek Bowers is a 82 y.o. male resident at [facility]. 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 Per EHR, patient has been dealing with foot ulcers and worsening gangrene of his third right toe since he has had his NSTEMI back in November,. Patient's reported they have been following at a wound clinic. They recently saw a vascular surgeon down at [place] who recommended Ortho foot to see him but that appointment cannot be made until April. He was seen again in wound clinic on 03/08/2023 at the outside hospital and felt the wound to be worsening so transferred to [facility] ED. 03/08/2023: In the ED, podiatry and [...] Family Member): Patient is seen today for penitentiary medication reconciliation with his in attendance. Patient//nursing [...] check of right leg amputation at the [facility], 2nd Floor. [address] [address] on 05/11/2023 at 10:00 AM. Please see the After Visit Summary for additional information. Please minutes early. Call [facility] at [phone] to reschedule as needed or for further [...] Disease Overview: Treatment: Metoprolol Goal: 120-130 #14 Shelter Stay Certification Exam Overview: Short-term stay. #15 [...] Blood pressure normotensive. Continue care plan. #12 Shelter Stay Certification Exam Assessment & Plan: Plans [...] extensive time spent on other activities: 70. AL LABORATORY SUPERVISOR documented in this encounter Miscellaneous Notes [...] been working with PT and tolerating therapy. AL LABORATORY SUPERVISOR * Assessment & Plan Note - Natalio Motta APRN, C.N.P. - 04/12/2023 4:45 PM CSTAssociated Problem(s): Hypothyroidism Continue levothyroxine. TSH reordered. AL LABORATORY SUPERVISOR * Assessment & Plan Note - Natalio Motta APRN, C.N.P. - 04/12/2023 4:09 PM CSTAssociated Problem(s): Weakness General Verbalized improvement with weakness. We will continue therapy. AL LABORATORY SUPERVISOR * Assessment & Plan Note - Natalio Motta APRN, C.N.P. - 04/12/2023 4:08 PM CSTAssociated Problem(s): Shelter Stay Certification Exam Plans to discharge back home. Patient remains appropriate SNF resident. Order summary paperwork signed following our visit, this included review of medications and orders. Current comorbidities, ADL need/level of debility requires skilled care/therapy. Medications and labs all reviewed and appropriate related to comorbidities, unless otherwise indicated. Physician order sheet signed. Continue PT/OT therapy, nutrition intervention, skin protection, and fall prevention. AL LABORATORY SUPERVISOR * Assessment & Plan Note - Natalio Motta APRN, C.N.P. - 04/12/2023 4:07 PM CSTAssociated Problem(s): Hypertensive Heart And Chronic Kidney Disease Without Heart Failure And WithUnspecified Stage Chronic Kidney Disease Images from the original note were not included. Blood pressure normotensive. Continue care plan. AL LABORATORY SUPERVISOR * Assessment & Plan Note - Natalio Motta APRN, C.N.P. - 04/12/2023 4:05 PM CSTAssociated Problem(s): Hyperkalemia (Resolved 05/24/2023) BMP ordered. AL LABORATORY SUPERVISOR * Assessment & Plan Note - Natalio Motta APRN, C.N.P. 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 Currently on Glipizide, showed and long-acting insulins. Blood sugar check 4 times daily. Nursing/patient denied episodes of hypoglycemia. We will continue care plan. AL LABORATORY SUPERVISOR * Assessment & Plan Note - Natalio Motta APRN, C.N.P. - 04/12/2023 4:01 PM CSTAssociated Problem(s): Congestive Heart Failure (HCC) No admission weight yet. Nursing to check patient's weight AL LABORATORY SUPERVISOR * Assessment & Plan Note - Natalio Motta APRN, C.N.P. - 04/12/2023 3:59 PM CSTAssociated Problem(s): Atrial Fibrillation Other Persistent (HCC) HR well controlled ranging from 82-85. Continue care plan. AL LABORATORY SUPERVISOR * Assessment & Plan Note - Natalio Motta APRN, C.N.P. - 04/12/2023 3:57 PM CSTAssociated Problem(s): Anemia Iron Deficiency Stable. Denied dizziness, lightheadedness, shortness of breaths and palpitation. AL LABORATORY SUPERVISOR * Assessment & Plan Note - Natalio Motta APRN C.N.P. - 04/12/2023 3:57 PM CSTAssociated Problem(s): Anemia (Resolved 04/12/2023) CBC reordered. Denied dizziness, lightheadedness, shortness of breaths or palpitation. AL LABORATORY SUPERVISOR * Addendum Note - Natalio Motta APRN, C.N.P., M.S.N. - 04/11/2023 3:00 PM CSTAddended by: NATALIO MOTTA on: 06/11/2023 09:41 AM Modules accepted: Orders, Level of Service AL LABORATORY SUPERVISOR documented in this encounter Plan of [...] And With Unspecified Stage Chronic Kidney Disease Shelter Stay Certification Exam Polypharmacy Advanced Care Planning Hypothyroidism Dysuria documented in this encounter Care Teams Medical Services Assistant Relationship Specialty Start Date End Date Natalio Motta APRN, C.NCaritoP., M.S.N. [address] [place] [phone] PCP - General Internal Medicine 04/10/23 08/27/23 documented as of this encounter
--- OUTSIDE RECORDS SUMMARY | 2023-08-29 09:06 | XMS_ITS | Encounter Summary ---
Author Name Unknown Organization [facility] Address [address] [place] [address] Care Team Providers Care Gravure Press Set Up Operator Name Role Phone Natalio Motta APRN, C.N.P., M.S.N. Primary C are Provider Reason for Referral * Outpatient (Routine) - Closed Specialty Diagnoses / Procedures Referred By Edin salmeron Referred To Contact [facility] Natalio Motta APRN, C.N.P., M.S.N. [address] [place] [phone] [facility] Region Referral ID Status Reason Start Date Expiration Date Visits Re quested Visits Authorized [id number] Closed 05/22/2023 05/21/2026 1 1 Scheduling Instructions Follow-up on blood sugar management LOGUE MAKER Reason for Visit * Reason Comments Follow-up on blood sugar management/insu rolly adjustment * Outpatient (Routine) - Closed Specialty Diagnoses / Procedures Referred By Edin salmeron Referred To Contact [facility] Diagnoses Diabetes Mellitus Type 2 With Diabetic Polyneuropathy (HCC) Laura Amaro M.D. [address] [place] [phone] [facility] Region Referral ID Status Reason Start Date Expiration Date Visits Re quested Visits Authorized [id number] Closed 05/20/2023 05/19/2026 1 1 Encounter Details Date Type Department Care Team (Latest Contact Info) Description 05/22/2023 10:00 AM CATALOGUE MAKER External Outreach [facility] in [facility] [address], [place] [address] Laura Wolfe M.D. [address] [place] [phone] Natalio Motta APRN, C.N.P., M.S.N. 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 - 05/22/2023 10:00 AM CST CHIEF COMPLAINT / REASON FOR VISIT [facility] Acute Visit Visit Type: In Person: Face to Face SUBJECTIVE Today's narrative history (obtained from Patient and Nursing): HISTORY OF PRESENT ILLNESS Darek Bowers is a 83 y.o. male resident at [facility]. 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 Today's narrative history (obtained from Patient and Nursing): Patient is seen today per MD request to review blood sugar and adjust insulin. 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 Managed with nitroglycerin. 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 Follow-up with DIRECTOR OF REVENUE next week. Dietitian/dietary to visit with patient and to discuss food options. 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 Totaltime 30 minutes. LOGUE MAKER documented in this encounter Miscellaneous Notes * [...] 3 times daily with meals. Follow-up with DIRECTOR OF REVENUE next week. Dietitian/dietary to visit with patient and to discuss food options. 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 [address] [place] [phone] PCP - General Internal Medicine 04/10/23 08/27/23 documented as of this encounter
--- OUTSIDE RECORDS SUMMARY | 2023-08-29 09:06 | XMS_ITS | Encounter Summary ---
Author Name Unknown Organization [facility] Address [address] [place] [id number] Care Team Providers Care Laboratory Sample Carrier Name Role Phone SantosumNatalio ramírez APRN, C.N.PCarito, M.S.N. Primary C are Provider Reason for Visit * Reason Onset Date Comments Discharge Notice 05/23/2023 Encounter Details Date Type Department Care Team (Latest Contact Info) Description 05/23/2023 Clinical Communication Division of Community Internal Medicine, [facility] in [place], [place] [address] [place] [phone] Natalio Motta APRN, C.N.P., M.S.N. [address] [place] [phone] Discharge Notice Social History Tobacco Use Types [...] on filedocumented in this encounter Care Teams Laboratory Sample Carrier Relationship Specialty Start Date End Date Natalio Motta APRN, C.N.PCarito, M.S.N. [address] [place] [phone] PCP - General Internal Medicine 04/10/23 08/27/23 documented as of this encounter
== END 2023-08-29 09:03 | disposition home or self-care (01) ==
LOC: WOUND 09:02
PROVIDERS: PCP Family Medicine; Visit Provider Surgery
DX: E11.621 Type 2 diabetes mellitus with foot ulcer (principal); L97.422 Non-pressure chronic ulcer of left heel and midfoot with fat layer exposed; Z79.4 Long term (current) use of insulin; Z79.84 Long term (current) use of oral hypoglycemic drugs
CPT/HCPCS: 97597

== ENCOUNTER 2023-09-05 09:05 | Outpatient (CLI) | payer MEDICARE, BC, SELFPAY ==
--- OUTSIDE RECORDS SUMMARY | 2023-09-05 09:07 | XMS_ITS | Continuity of Care Document ---
Author Name [facility] Organization [facility] Care Team Providers Care Resource Director Name Role Phone [facility] Unavailable Unavailable Problems Combined list of problems from Department of [facility] and [facility] facilities. It does not include entries that were removed or entered in error. Problem Status Onset Date Problem Type Date of Resolution Comments Source Exposure to potentially hazardous substance ([facility] [id number]) Active 07/20/19 24 Condition Jul 20, 2023 Entered By: MECHELLE DEMPSEY Comment: Entered through [facility] TAM Documentation Initiative [facility] CAD - Coronary Artery Disease ([facility] [id number]) Active Condition [place] ([facility]) CHF - Congestive Heart Failure ([facility] [id number]) Active Condition [facility]) Diabetes Mellitus Type 2 ([facility] [id number]) Active Condition [facility]) HTN - Hypertension ([facility] [id number]) Active Condition [place] ([facility]) Hyperlipidemia ([facility] [id number]) Active Condition [facility]) Long-term current use of insulin Active Condition [facility]) Peripheral neuropathy due to type 2 diabetes mellitus Active Condition [place] ([facility]) Diagnosis: ICD-10-CM H90.3 Sensorineural hearing loss, bilateral Active Diagnosis [facility] Diagnosis: ICD-10-CM I50.9 Heart failure, unspecified Active Diagnosis [facility]) Diagnosis: ICD-10-CM E11.9 Type 2 diabetes mellitus without complications Active Diagnosis [facility] Diagnosis: ICD-10-CM R26.89 Other abnormalities of gait and mobility Active Diagnosis [facility] ([facility]) Diagnosis: ICD-10-CM Z00.00 Encntr for general adult medical exam w/o abnormal findings Active Diagnosis [facility] ([facility]) Medications Combined list of outpatient medications from Department of [facility] and [facility] facilities.Medications provided include 1) outpatient medications [...] WOUND CARE ORDERS TOPICA LLThanh ACTIVE 02/16/2024 [id number] KATHY MURPHY 2022 [address] [place] OLIS [...] Site Reaction Lot Number CVX Code 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 Comments Source INFLUENZA, HIGH-DOSE, QUADRIVALENT 1 2021 197 complet ed [facility] COVID-19 (MODERNA), MRNA, LNP-S, BIVALENT, PF, 50 MCG/0.5 ML OR 25MCG/0.25 ML DOSE 1 2021 229 complet ed [facility] COVID-19 (PFIZER), MRNA, LNP-S, PF, 30 MCG/0.3 ML DOSE 3 2020 208 complet ed [facility] INFLUENZA, UNSPECIFIED FORMULATION 2020 88 complet ed [facility] TDAP 2020 115 complet ed [employer], [id number] , exp-2022 and given VIS dated 12/17/2020 [facility]) ZOSTER RECOMBINANT 2 2020 187 complet ed [facility]) ZOSTER RECOMBINANT 1 2020 187 complet ed [facility]) COVID-19 (PFIZER), MRNA, LNP-S, PF, 30 MCG/0.3 ML DOSE 2 2020 208 complet ed [facility] COVID-19 (PFIZER), MRNA, LNP-S, PF, 30 MCG/0.3 ML DOSE 1 2020 208 complet ed [facility] INFLUENZA, UNSPECIFIED FORMULATION 2019 88 complet ed [facility] PNEUMOCOCCAL CONJUGATE PCV 13 2014 133 complet ed Per MIIC ALL[facility] PNEUMOCOCCAL POLYSACCHARID E PPV23 2010 [address] [facility] PNEUMOCOCCAL POLYSACCHARID E PPV23 2005 33 complet ed [facility] Results Combined list of recent chemistry, hematology [...] PLASMA No comment entered. Ordering Provider: AILIN CHSETER Report Released Date/Time: Jan 23, 2023 02:00 PM Reporting Lab: [facility] [address] Performing Lab: [facility] [address] [place] ([facility]) BASIC METABOLIC PANEL+MG UREA NITROGEN [MASS/VOLUM E] IN SERUM OR PLASMA 35 8 - 26 01/23 H Specimen Type: PLASMA No comment entered. Ordering Provider: AILIN CHESTER Report Released Date/Time: Jan 23, 2023 02:00 PM Reporting Lab: [facility] [address] Performing Lab: [facility] [address] [place] ([facility]) BASIC METABOLIC PANEL+MG GLUCOSE [MASS/VOLUM E] IN SERUM OR PLASMA 239 70 - 100 01/23 H Specimen Type: PLASMA No comment entered. Ordering Provider: AILIN CHESTER Report Released Date/Time: Jan 23, 2023 02:00 PM Reporting Lab: [facility] [address] Performing Lab: [facility] [address] [place] ([facility]) BASIC METABOLIC PANEL+MG SODIUM [MOLES/VOLU ME] IN SERUM OR PLASMA 140 136 - 145 01/23 Specimen Type: PLASMA No comment entered. Ordering Provider: AILIN CHESTER Report Released Date/Time: Jan 23, 2023 02:00 PM Reporting Lab: [address] Performing Lab: [address] [place] [address] ([facility]) BASIC METABOLIC PANEL+MG POTASSIUM [MOLES/VOLU ME] IN SERUM OR PLASMA 5.1 3.5 - 5.1 01/23 Specimen Type: PLASMA No comment entered. Ordering Provider: AILIN CHESTER Report Released Date/Time: Jan 23, 2023 02:00 PM Reporting Lab: [address] Performing Lab: [address] ([facility]) BASIC METABOLIC PANEL+MG CHLORIDE [MOLES/VOLU ME] IN SERUM OR PLASMA 109 98 - 107 01/23 H Specimen Type: PLASMA No comment entered. Ordering Provider: AILIN CHESTER Report Released Date/Time: Jan 23, 2023 02:00 PM Reporting Lab: [facility] [address] Performing Lab: [facility] [address] [place] ([facility]) BASIC METABOLIC PANEL+MG CARBON DIOXIDE, TOTAL [MOLES/VOLU ME] IN SERUM OR PLASMA 21 22 - 29 01/23 L Specimen Type: PLASMA No comment entered. Ordering Provider: AILIN CHESTER Report Released Date/Time: Jan 23, 2023 02:00 PM Reporting Lab: [facility] [address] Performing Lab: [facility] [address] [place] ([facility]) BASIC METABOLIC PANEL+MG CALCIUM [MASS/VOLUM E] IN SERUM OR PLASMA 9.4 8.4 - 10.2 01/23 Specimen Type: PLASMA No comment entered. Ordering Provider: AILIN CHESTER Report Released Date/Time: Jan 23, 2023 02:00 PM Reporting Lab: [facility] [address] Performing Lab: [facility] [address] [place] ([facility]) BASIC METABOLIC PANEL+MG MAGNESIUM [MASS/VOLUM E] IN SERUM OR PLASMA 1.7 1.6 - 2.6 01/23 Specimen Type: PLASMA No comment entered. Ordering Provider: AILIN CHESTER Report Released Date/Time: Jan 23, 2023 02:00 PM Reporting Lab: [facility] [address] Performing Lab: [facility] [address] [place] ([facility]) BASIC METABOLIC PANEL+MG ANION GAP IN SERUM OR PLASMA 10 5 - 15 01/23 Specimen Type: PLASMA No comment entered. Ordering Provider: AILIN CHESTER Report Released Date/Time: Jan 23, 2023 02:00 PM Reporting Lab: [facility] [address] Performing Lab: [facility] [address] [place] ([facility]) BASIC METABOLIC PANEL+MG GLOMERULAR FILTRATION RATE/1.73 SQ M.PREDICTED [VOLUME RATE/AREA] IN SERUM, PLASMA OR BLOOD BY CREATININE- BASED FORMULA (CKD-EPI 2020) 61 60 01/23 Specimen Type: PLASMA No comment entered. Ordering Provider: AILIN CHESTER Report Released Date/Time: Jan 23, 2023 02:00 PM Reporting Lab: [facility] [address] Performing Lab: [facility] [address] [place] ([facility]) BNP NATRIURETIC PEPTIDE B [MASS/VOLUM E] IN SERUM OR PLASMA 1549 <99 - 99 01/23 H Specimen Type: PLASMA No comment entered. Ordering Provider: AILIN CHESTER Report Released Date/Time: Jan 23, 2023 02:00 PM Reporting Lab: [facility] [address] Performing Lab: [facility] [address] [place] ([facility]) MICROALBU MIN/CREAT ININE RATIO URINE CREATININE [MASS/VOLUM E] IN URINE 132.8 58.0 - 161.0 11/23 Specimen Type: URINE No comment entered. Ordering Provider: AILIN CHESTER Report Released Date/Time: Nov 23, 2022 11:58 AM Reporting Lab: [facility] [address] Performing Lab: [facility] [address] [place] ([facility]) MICROALBU MIN/CREAT ININE RATIO URINE MICROALBUMI N/CREATININ E [MASS RATIO] IN URINE 28.0 11/23 Specimen Type: URINE No comment entered. Ordering Provider: AILIN CHESTER Report Released Date/Time: Nov 23, 2022 11:58 AM Reporting Lab: [facility] [address] Performing Lab: [place] [address] [place] ([facility]) MICROALBU MIN/CREAT ININE RATIO URINE MICROALBUMI N [MASS/VOLUM E] IN URINE 37.2 11/23 H Specimen Type: URINE No comment entered. Ordering Provider: AILIN CHESTER Report Released Date/Time: Nov 23, 2022 11:58 AM Reporting Lab: [facility] [address] Performing Lab: [facility] [address] [place] ([facility]) LIPID PANEL,NON -FASTING CHOLESTEROL [MASS/VOLUM E] IN SERUM OR PLASMA 130 11/23 Specimen Type: PLASMA No comment entered. Ordering Provider: AILIN CHESTER Report Released Date/Time: Nov 23, 2022 11:58 AM Reporting Lab: [facility] [address] Performing Lab: [facility] [address] [place] ([facility]) LIPID PANEL,NON -FASTING CHOLESTEROL IN HDL [MASS/VOLUM E] IN SERUM OR PLASMA 39 11/23 L Specimen Type: PLASMA No comment entered. Ordering Provider: AILIN CHESTER Report Released Date/Time: Nov 23, 2022 11:58 AM Reporting Lab: [facility] [address] Performing Lab: [facility] [address] [place] ([facility]) LIPID PANEL,NON -FASTING CHOLESTEROL IN LDL [MASS/VOLUM E] IN SERUM OR PLASMA BY CALCULATION 73 11/23 Specimen Type: PLASMA No comment entered. Ordering Provider: AILIN CHESTER Report Released Date/Time: Nov 23, 2022 11:58 AM Reporting Lab: [facility] [address] Performing Lab: [facility] [address] [place] ([facility]) LIPID PANEL,NON -FASTING CHOLESTEROL IN VLDL [MASS/VOLUM E] IN SERUM OR PLASMA BY CALCULATION 18 11/23 Specimen Type: PLASMA No comment entered. Ordering Provider: AILIN CHESTER Report Released Date/Time: Nov 23, 2022 11:58 AM Reporting Lab: [facility] [address] Performing Lab: [address] [place] [address] ([facility]) LIPID PANEL,NON -FASTING CHOLESTEROL NON HDL [MASS/VOLUM E] IN SERUM OR PLASMA 91 11/23 Specimen Type: PLASMA No comment entered. Ordering Provider: AILIN CHESTER Report Released Date/Time: Nov 23, 2022 11:58 AM Reporting Lab: [address] Performing Lab: [address] ([facility]) LIPID PANEL,NON -FASTING TRIGLYCERID E [MASS/VOLUM E] IN SERUM OR PLASMA 92 11/23 Specimen Type: PLASMA No comment entered. Ordering Provider: AILIN CHESTER Report Released Date/Time: Nov 23, 2022 11:58 AM Reporting Lab: [facility] [address] Performing Lab: [facility] [address] [place] [address] ([facility]) CBC LEUKOCYTES [#/VOLUME] IN BLOOD BY AUTOMATED COUNT 10.80 4.0 - 11.0 11/23 Specimen Type: BLOOD No comment entered. Ordering Provider: AILIN CHESTER Report Released Date/Time: Nov 23, 2022 11:58 AM Reporting Lab: [facility] [address] Performing Lab: [address] [place] ([facility]) CBC ERYTHROCYTE S [#/VOLUME] IN BLOOD BY AUTOMATED COUNT 3.87 4.6 - 6.2 11/23 L Specimen Type: BLOOD No comment entered. Ordering Provider: AILIN CHESTER Report Released Date/Time: Nov 23, 2022 11:58 AM Reporting Lab: [facility] [address] Performing Lab: [place] [address] [place] ([facility]) CBC HEMOGLOBIN [MASS/VOLUM E] IN BLOOD 12.1 13.5 - 17.9 11/23 L Specimen Type: BLOOD No comment entered. Ordering Provider: AILIN CHESTER Report Released Date/Time: Nov 23, 2022 11:58 AM Reporting Lab: [facility] [address] Performing Lab: [facility] [address] [place] ([facility]) CBC HEMATOCRIT [VOLUME FRACTION] OF BLOOD BY AUTOMATED COUNT 37.5 41 - 54 11/23 L Specimen Type: BLOOD No comment entered. Ordering Provider: AILIN CHESTER Report Released Date/Time: Nov 23, 2022 11:58 AM Reporting Lab: [facility] [address] Performing Lab: [address] [place] [address] ([facility]) CBC MCV [ENTITIC VOLUME] BY AUTOMATED COUNT 96.9 80 - 100 11/23 Specimen Type: BLOOD No comment entered. Ordering Provider: AILIN CHESTER Report Released Date/Time: Nov 23, 2022 11:58 AM Reporting Lab: [facility] [address] Performing Lab: [facility] [address] [place] ([facility]) CBC MCH [ENTITIC MASS] BY AUTOMATED COUNT 31.3 27 - 33 11/23 Specimen Type: BLOOD No comment entered. Ordering Provider: AILIN CHESTER Report Released Date/Time: Nov 23, 2022 11:58 AM Reporting Lab: [facility] [address] Performing Lab: [facility] [address] [place] ([facility]) CBC MCHC [MASS/VOLUM E] BY AUTOMATED COUNT 32.3 32.0 - 37.5 11/23 Specimen Type: BLOOD No comment entered. Ordering Provider: AILIN CHESTER Report Released Date/Time: Nov 23, 2022 11:58 AM Reporting Lab: [facility] [address] Performing Lab: [facility] [address] [place] ([facility]) CBC PLATELETS [#/VOLUME] IN BLOOD BY AUTOMATED COUNT 293 150 - 400 11/23 Specimen Type: BLOOD No comment entered. Ordering Provider: AILIN CHESTER Report Released Date/Time: Nov 23, 2022 11:58 AM Reporting Lab: [facility] [address] Performing Lab: [address] ([facility]) CBC PLATELET MEAN VOLUME [ENTITIC VOLUME] IN BLOOD BY AUTOMATED COUNT 10.3 7.4 - 10.4 11/23 Specimen Type: BLOOD No comment entered. Ordering Provider: AILIN CHESTER Report Released Date/Time: Nov 23, 2022 11:58 AM Reporting Lab: [facility] [address] Performing Lab: [place] [address] [place] ([facility]) CBC ERYTHROCYTE DISTRIBUTIO N WIDTH [RATIO] BY AUTOMATED COUNT 13.2 11.5 - 14.5 11/23 Specimen Type: BLOOD No comment entered. Ordering Provider: AILIN CHESTER Report Released Date/Time: Nov 23, 2022 11:58 AM Reporting Lab: [facility] [address] Performing Lab: [address] [place] ([facility]) TSH W/REFLEX TO FREE T4 THYROTROPIN [UNITS/VOLU ME] IN SERUM OR PLASMA 4.59 0.35 - 4.94 11/23 Specimen Type: PLASMA No comment entered. Ordering Provider: AILIN CHESTER Report Released Date/Time: Nov 23, 2022 11:58 AM Reporting Lab: [facility] [address] Performing Lab: [facility] [address] [place] ([facility]) COMPREHEN SIVE METABOLIC PANEL+MG CREATININE [MASS/VOLUM E] IN SERUM OR PLASMA 1.2 0.7 - 1.2 11/23 Specimen Type: PLASMA No comment entered. Ordering Provider: AILIN CHESTER Report Released Date/Time: Nov 23, 2022 11:58 AM Reporting Lab: [facility] [address] Performing Lab: [address] ([facility]) COMPREHEN SIVE METABOLIC PANEL+MG UREA NITROGEN [MASS/VOLUM E] IN SERUM OR PLASMA 34 8 - 26 11/23 H Specimen Type: PLASMA No comment entered. Ordering Provider: AILIN CHESTER Report Released Date/Time: Nov 23, 2022 11:58 AM Reporting Lab: [facility] [address] Performing Lab: [facility] [address] [place] ([facility]) COMPREHEN SIVE METABOLIC PANEL+MG GLUCOSE [MASS/VOLUM E] IN SERUM OR PLASMA 54 70 - 100 11/23 L Specimen Type: PLASMA No comment entered. Ordering Provider: AILIN CHESTER Report Released Date/Time: Nov 23, 2022 11:58 AM Reporting Lab: [facility] [address] Performing Lab: [facility] [address] [place] ([facility]) COMPREHEN SIVE METABOLIC PANEL+MG SODIUM [MOLES/VOLU ME] IN SERUM OR PLASMA 143 136 - 145 11/23 Specimen Type: PLASMA No comment entered. Ordering Provider: AILIN CHESTER Report Released Date/Time: Nov 23, 2022 11:58 AM Reporting Lab: [facility] [address] Performing Lab: [facility] [address] [place] ([facility]) COMPREHEN SIVE METABOLIC PANEL+MG POTASSIUM [MOLES/VOLU ME] IN SERUM OR PLASMA 4.4 3.5 - 5.1 11/23 Specimen Type: PLASMA No comment entered. Ordering Provider: AILIN CHESTER Report Released Date/Time: Nov 23, 2022 11:58 AM Reporting Lab: [facility] [address] Performing Lab: [facility] [address] [place] ([facility]) COMPREHEN SIVE METABOLIC PANEL+MG CHLORIDE [MOLES/VOLU ME] IN SERUM OR PLASMA 107 98 - 107 11/23 Specimen Type: PLASMA No comment entered. Ordering Provider: AILIN CHESTER Report Released Date/Time: Nov 23, 2022 11:58 AM Reporting Lab: [facility] [address] Performing Lab: [facility] [address] [place] ([facility]) COMPREHEN SIVE METABOLIC PANEL+MG CARBON DIOXIDE, TOTAL [MOLES/VOLU ME] IN SERUM OR PLASMA 23 22 - 29 11/23 Specimen Type: PLASMA No comment entered. Ordering Provider: AILIN CHESTER Report Released Date/Time: Nov 23, 2022 11:58 AM Reporting Lab: [facility] [address] Performing Lab: [facility] [address] [place] ([facility]) COMPREHEN SIVE METABOLIC PANEL+MG CALCIUM [MASS/VOLUM E] IN SERUM OR PLASMA 9.7 8.4 - 10.2 11/23 Specimen Type: PLASMA No comment entered. Ordering Provider: AILIN CHESTER Report Released Date/Time: Nov 23, 2022 11:58 AM Reporting Lab: [address] Performing Lab: [address] [place] ([facility]) COMPREHEN SIVE METABOLIC PANEL+MG PROTEIN [MASS/VOLUM E] IN SERUM OR PLASMA 7.2 6.0 - 8.3 11/23 Specimen Type: PLASMA No comment entered. Ordering Provider: AILIN CHESTER Report Released Date/Time: Nov 23, 2022 11:58 AM Reporting Lab: [facility] [address] Performing Lab: [place] [address] [place] ([facility]) COMPREHEN SIVE METABOLIC PANEL+MG ALBUMIN [MASS/VOLUM E] IN SERUM OR PLASMA 4.1 3.5 - 5.2 11/23 Specimen Type: PLASMA No comment entered. Ordering Provider: AILIN CHESTER Report Released Date/Time: Nov 23, 2022 11:58 AM Reporting Lab: [facility] [address] Performing Lab: [facility] [address] [place] ([facility]) COMPREHEN SIVE METABOLIC PANEL+MG BILIRUBIN.T OTAL [MASS/VOLUM E] IN SERUM OR PLASMA 0.5 0.2 - 1.2 11/23 Specimen Type: PLASMA No comment entered. Ordering Provider: AILIN CHESTER Report Released Date/Time: Nov 23, 2022 11:58 AM Reporting Lab: [facility] [address] Performing Lab: [facility] [address] [place] ([facility]) COMPREHEN SIVE METABOLIC PANEL+MG MAGNESIUM [MASS/VOLUM E] IN SERUM OR PLASMA 1.4 1.6 - 2.6 11/23 L Specimen Type: PLASMA No comment entered. Ordering Provider: AILIN CHESTER Report Released Date/Time: Nov 23, 2022 11:58 AM Reporting Lab: [address] Performing Lab: [address] ([facility]) COMPREHEN SIVE METABOLIC PANEL+MG ANION GAP IN SERUM OR PLASMA 13 5 - 15 11/23 Specimen Type: PLASMA No comment entered. Ordering Provider: AILIN CHESTER Report Released Date/Time: Nov 23, 2022 11:58 AM Reporting Lab: [place] 896609 Performing Lab: [address] ([facility]) COMPREHEN SIVE METABOLIC PANEL+MG ALKALINE PHOSPHATASE [ENZYMATIC ACTIVITY/VO LUME] IN SERUM OR PLASMA 87 40 - 150 11/23 Specimen Type: PLASMA No comment entered. Ordering Provider: IALIN CHESTER Report Released Date/Time: Nov 23, 2022 11:58 AM Reporting Lab: [facility] [address] Performing Lab: [facility] [address] [place] ([facility]) COMPREHEN SIVE METABOLIC PANEL+MG ALANINE AMINOTRANSF ERASE [ENZYMATIC ACTIVITY/VO LUME] IN SERUM OR PLASMA 28 11/23 Specimen Type: PLASMA No comment entered. Ordering Provider: AILIN CHESTER Report Released Date/Time: Nov 23, 2022 11:58 AM Reporting Lab: [facility] [address] Performing Lab: [facility] [id number] [place] [address] ([facility]) COMPREHEN SIVE METABOLIC PANEL+MG ASPARTATE AMINOTRANSF ERASE [ENZYMATIC ACTIVITY/VO LUME] IN SERUM OR PLASMA 33 11/23 Specimen Type: PLASMA No comment entered. Ordering Provider: AILIN CHESTER Report Released Date/Time: Nov 23, 2022 11:58 AM Reporting Lab: [facility] [address] Performing Lab: [facility] [address] [place] ([facility]) COMPREHEN SIVE METABOLIC PANEL+MG GLOMERULAR FILTRATION RATE/1.73 SQ M.PREDICTED [VOLUME RATE/AREA] IN SERUM, PLASMA OR BLOOD BY CREATININE- BASED FORMULA (CKD-EPI 2020) 61 11/23 Specimen Type: PLASMA No comment entered. Ordering Provider: AILIN CHESTER Report Released Date/Time: Nov 23, 2022 11:58 AM Reporting Lab: [facility] [address] Performing Lab: [facility] [address] [place] ([facility]) HEMOGLOBI N A1C HEMOGLOBIN A1C/HEMOGLO BIN.TOTAL [...] Nov 23, 2022 11:58 AM Reporting Lab: [facility] [address] Performing Lab: [facility] [address] [place] ([facility]) Vital Signs Combined list of inpatient and outpatient Vital Signs from Department of Defense and Veterans Affairs, ranging from 12 months to all on record, depending upon the facility. Vital Sign Value Date Comments Source Encounters Combined list of: 1) Encounters from Department of Veterans Affairs facilities going back up to thelast 18 months. 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 Location Location Details Encounter Type Encounter Number Reason For Visit Attending Provider ADM Date DC Date Status Disposition Source [facility] Outpatient Encounter [id number] 03/29 [facility] Outpatient Encounter [id number] 04/05 [facility] Encounter [id number] 07/31 [place] [facility] [place] En[place] [id number] 08/21 [place] [facility] [place] [facility] [id number] 09/20 [place] [email or web address] Outpatient [facility]counter [id number] [id number] 11/11 [facility] Encounter [id number] ZARI POWER 11/16 [place] [facility] [place] [facility]counter [id number] 11/21 [place] [facility] [place] ([facility]) OFFICE O/P EST MOD 30-39 MIN [id number] Diagnos is: ICD-10- CM Z00.00 Encntr for general adult medical exam w/o abnorma l finding s
CANDELARIO CHESTER DA K 11/23 [place] [facility] ([facility]) [place] ([facility]) GAIT TRAINING THERAPY [id number] Diagnos is: ICD-10- CM R26.89 Other abnorma lities of gait and mobilit y
OMAYRA JAMESON NTER V 11/23 [place] ([facility]) [facility] Outpatient Encounter [id number] SA JAMARI JAMESON R 12/11 [place] [facility] Outpatient Encounter [id number] 12/25 [facility] Outpatient Encounter [id number] SA JAMARI JAMESON R 12/28 [facility] Outpatient Encounter [id number] 01/05 [facility] Outpatient Encounter [id number] 01/11 [place] [facility] Outpatient Encounter [id number] 01/16 [place] [facility] [place] ([facility]) OFFICE O/P EST HI 40-54 MIN [id number] Diagnos is: ICD-10- CM I50.9 Heart failure , unspeci fied
CANDELARIO CHESTER 01/23 [facility]) [facility] Outpatient Encounter [id number] Marcus POTTS I 01/24 [place] [facility] Outpatient Encounter [id number] Danica TORRE 02/05 [place] [facility] Outpatient Encounter [id number] 02/09 [place] [facility] Outpatient Encounter [id number] Danica TORRE 02/09 [place] [facility] Outpatient Encounter [id number] 02/14 [place] [facility] Outpatient Encounter [id number] 02/15 [place] [facility] Outpatient Encounter [id number] 02/19 [place] [facility] Outpatient Encounter [id number] 02/20 [place] [facility] Outpatient Encounter [id number] 02/20 [place] Outpatient Encounter [id number] 02/20 [place] [facility] Outpatient Encounter [id number] 02/20 [place] Outpatient Encounter [id number] 02/21 [place] [facility] QNHP OL DIG ASSMT&MGMT 5-10 [id number] Diagnos is: ICD-10- CM E11.9 Type 2 diabete s mellitu s without complic ations< br/> HARDER,SIVA LY 02/22 [place] [facility] [place]) PRO PHONE CALL 11-20 MIN [id number] Diagnos is: ICD-10- CM I50.9 Heart failure , unspeci fied
HENRICH,BR ANDON M 02/23 [facility] ([facility]) [facility] Outpatient Encounter [id number] 02/26 [place] [facility] Outpatient Encounter [id number] 03/01 [place] [facility] Outpatient Encounter [id number] SA TRINO RA R 03/09 [place] [facility] Outpatient Encounter [id number] 03/14 [place] [facility] Outpatient Encounter [id number] SA TRINO RA R 04/12 [place] [facility] Outpatient Encounter [id number] SA TRINO RA R 04/16 [place] [facility] Outpatient Encounter [id number] TRINO RA R 05/01 [place] [facility] Outpatient Encounter [id number] 07/11 [place] [facility] Outpatient Encounter [id number] [place] [facility] Outpatient Encounter [id number] 07/12 [facility] HC PRO PHONE CALL 5-10 MIN [id number] Diagnos is: ICD-10- CM 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
VIV BARFIELD Thanh Frey 07/19 [facility] HEARING AID REPAIR/MOD IFYING [id number] Diagnos is: ICD-10- CM 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
CARY CORCORAN 08/09 [facility] Social History Combined list of available smoking, tobacco, and other social history from Department of Defense and Veterans Affairs facilities. Social History Type Response Date Comment Formerly [facility] e Tobacco smoking status NHIS VA-TOBACCO FORMER USER 11/23/2022 [facility] ([facility]) History of tobacco use DE-TOBACCO QUIT 1 5 YRS OR MORE 11/23/2022 [facility] ([facility]) History of tobacco use VA-TOBACCO FORMER USER 11/29/2021 [facility] ([facility]) History of tobacco use VA-TOBACCO FORMER USER 10/21/2020 [facility] ([facility]) Plan of Care List of future care activities from Department of Veterans Affairs facilities. Additional future care activities may be listed in the Assessment and Plan section. Date/Time Care Activity Care Activity Detail Facili ty 09/18/2023 AMBULATORY - SURGERY [facility] SURGERY [facility]
--- OUTSIDE RECORDS SUMMARY | 2023-09-05 09:08 | XMS_ITS | Encounter Summary ---
Author Name Unknown Organization [facility] Address [address] [place] [address] Care Team Providers Care Town Administrator Name Role Phone SantosumJessica ramírezNataliotashi Mishra APRN, C.N.P., M.S.N. Primary C are Provider Reason for Visit * Appointment Request (Routine) - Closed Specialty Diagnoses / Procedures Referred By Edin mishra Referred To Contact Intermediate Facility Referral ID Status Reason Start Date Expiration Date Visits Re quested Visits Authorized [id number] Closed 06/13/2023 06/12/2024 1 1 Encounter Details Date Type Department Care Team (Latest Contact Info) Description 06/14/2023 10:00 AM MANAGER FLOAT External Outreach Senior Services in [facility] [address] [phone] Hannah Castillo APRN, C.N.P. [address] [place] [address] [place] [phone] Pressure Injury (Ulcer) Of Left Heel Stage [...] Comments Blood Pressure 123/68 06/14/2023 9:54 AM MANAGER FLOAT Pulse 68 06/14/2023 9:54 AM MANAGER FLOAT Temperature 36.2 ??C (97.1 ??F) 06/14/2023 9:54 AM CS T Respiratory Rate 18 06/14/2023 9:54 AM MANAGER FLOAT Oxygen Saturation - - Inhaled Oxygen Concentration - - Weight 77.4 kg (170 lb 9.6 oz) 06/14/2023 9:54 A M MANAGER FLOAT Height - - Body Mass Index 25.19 04/12/2023 3:21 PM MANAGER FLOAT documented in this encounter Patient Instructions * Patient Instructions* Hannah Castillo APRN, C.N.P. - 06/14/2023 10:00 AM MANAGER FLOAT ORDERS and INSTRUCTIONS: Heel wound 1: Gently cleanse area with NS. Pat dry. 2. Skin prep to gonsalo-wound. 3. Santyl to wound bed only. 4. Place gauze over wound. 5. cover with island dressing. 6. Change dressing daily. Right stump wound Cleanse daily and apply a thin layer of silverstat and gauze. Electronically signed by: Hannah Castillo APRN, C.N.P. 06/15/23 4:20 PM MANAGER FLOAT GER FLOAT documented in this encounter Progress Notes * Hannah Castillo APRN, C.N.P. - 06/14/2023 10:00 AM CST CHIEF COMPLAINT / REASON FOR VISIT [facility] Follow Up Visit Visit Type: In [...] Heel: Area continues to improve. Wound measures 1.9eeO1xy. Edges well defined, attached and 100% re-epithelialized [...] orders to facility. Total time 30 minutes. GER FLOAT documented in this encounter Miscellaneous Notes * Assessment & Plan Note - Hannah Castillo APRN, C.N.P. - 06/15/2023 4:18 PM CSTAssociated Problem(s): Other Complications Of Amputation Stump (HCC) The wound bed is clean. A thin layer of silver stat will be applied with a gauze. Change daily. GER FLOAT * Assessment & Plan Note - Hannah [...] with home nursing for wound care . 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 [address] [place] [phone] PCP - General Internal Medicine 04/10/23 08/27/23 documented as of this encounter
--- OUTSIDE RECORDS SUMMARY | 2023-09-05 09:08 | XMS_ITS | Encounter Summary ---
Author Name Unknown Organization [facility] Address [address] [place] [address] Care Team Providers Care Campus Administrative Assistant Name Role Phone Santosumdarrell Natalio Mishra APRN, C.N.P., M.S.N. Primary C are Provider Reason for Visit * Appointment Request (Routine) - Closed Specialty Diagnoses / Procedures Referred By Edin mishra Referred To Contact [facility]way Facility Referral ID Status Reason Start Date Expiration Date Visits Re quested Visits Authorized [id number] Closed 06/07/2023 06/06/2024 1 1 Encounter Details Date Type Department Care Team (Latest Contact Info) Description 06/07/2023 3:00 PM BATTERY PLATE REMOVER External Outreach Senior Services in [facility] [address] [place] [phone] Hannah Castillo APRN, C.N.P. [address] [place] [address] [place] [phone] Diabetes Mellitus Type 2 With Diabetic Polyneuropathy [...] Comments Blood Pressure 100/68 06/07/2023 2:42 PM BATTERY PLATE REMOVER Pulse 78 06/07/2023 2:42 PM BATTERY PLATE REMOVER Temperature 36.2 ??C (97.1 ??F) 06/07/2023 2:42 PM CS T Respiratory Rate 18 06/07/2023 2:42 PM BATTERY PLATE REMOVER Oxygen Saturation 99% 06/07/2023 2:42 PM BATTERY PLATE REMOVER Inhaled Oxygen Concentration - - Weight 76.1 kg (167 lb 12.8 oz) 06/07/2023 2:42 PM BATTERY PLATE REMOVER Height - - Body Mass Index 24.78 04/12/2023 3:21 PM BATTERY PLATE REMOVER documented in this encounter Patient Instructions * Patient Instructions* Hannah Castillo APRN, C.N.P. - 06/07/2023 3:00 PM BATTERY PLATE REMOVER ORDERS and INSTRUCTIONS: Change the NovoLog to 8 units before meals. Continue blood sugar checks. Electronically signed by: Hannah Castillo APRN, C.N.P. 06/07/23 2:57 PM BATTERY PLATE REMOVER ERY PLATE REMOVER documented in this encounter Progress Notes * Hannah Castillo APRN, C.N.P. - 06/07/2023 3:00 PM CST CHIEF COMPLAINT / REASON FOR VISIT [facility] Follow Up Visit Visit Type: In Person: [...] orders to facility. Total time 30 minutes. ERY PLATE REMOVER documented in this encounter Miscellaneous Notes * Assessment & Plan Note - Hannah Castillo APRN, C.N.P. - 06/07/2023 2:49 PM CSTAssociated Problem(s): [...] tight glycemic control but to prevent hypoglycemia. ERY PLATE REMOVER documented in this encounter Plan of Treatment Not on file documented as of this encounter Visit Diagnoses Diagnosis Diabetes Mellitus Type 2 With Diabetic Polyneuropathy (HCC)- Primary documented in this encounter Care Teams Campus Administrative Assistant Relationship Specialty Start Date End Date Natalio Motta APRN, C.N.P., M.S.N. [address] [place] [phone] PCP - General Internal Medicine 04/10/23 08/27/23 documented as of this encounter
--- OUTSIDE RECORDS SUMMARY | 2023-09-05 09:08 | XMS_ITS | Clinical Summary ---
Author Name Unknown Organization [facility] Address [place], [place] [address] Care Team Providers Care Obstetrical Nurse Name Role Phone VotelMelquiades MD Primary Care Provider + Nurses, Advanced Heart Failure Unavailable + Shade Manuel MD Unavailable [phone] Allergies No known active allergies Medications Medication Sig Dispensed Refills Start Date End Date Status blood-glucose meterIndications:T ype 2 diabetes mellitus with complication (HC) Ascensia Glucometer, Dispense meter, test strips, lancets covered by pt ins. Test 3 times daily 1 Device 07/09/2020 Active Insulin [place], Disposable, (Novofine 32) 32 gauge x 1/4Indications:25 [...] mg sublingual tabletIndications: Coronary artery disease involving [place] heart without angina pectoris, unspecified vessel or [...] mg po daily, Resume after d/c from [facility] 90 Tablet 04/09/2023 Active metoprolol succinate (Toprol [...] Active Problems Problem Noted Date Diagnosed Date Diabetic infection of right foot 08/29/2023 Acute on chronic systolic (congestive) heart heather [...] elevated myocardial infarction) 0 12/09/2022 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 11/25/2019 HTN (hypertension) 10/28/2015 Hyperlipidemia LDL goal <70 10/28/2015 Adenomatous colon polyp 04/13/2015 Overview: Colonoscopy 04/2015 polyps repeat in 5 years Colonoscopy 03/2020 polyps, repeat in 5 years Background diabetic retinopathy(362.01) 07/10/19 08 Unspecified hearing loss 07/10/2007 Coronary atherosclerosis of unspecified type of vessel, [place] or graft Overview: 4 vessel CABG 2001 Lexiscan only for cardiac evaluation - no treadmill Other ill-defined and unknow n causes of morbidity and mortality Impotence of organic origin Resolved Problems Problem Noted Date Diagnosed Date Resolved Date Type 2 diabetes mellitus with complication 11/16/2017 12/22/2022 Heart disease, unspecified 0 07/10/2007 Encounters Date Type Department Care Team Description 08/31/2023 Telephone [facility] [address] [place] [address] Melquiades Man MD ORDERS 08/23/2023 12:46 PM CDT - 08/23/2023 11:59 PM CDT Hospital Encounter [facility] and [address] [address] Melquiades Man MD Tonsfeldt, Isabelle, RICKY History of leg amputation (HC) 08/23/2023 Travel 08/17/2023 Telephone [facility] [address] [place] [address] Melquiades Man MD Home Care ([facility]) 08/08/2023 Telephone [facility] [address] [place] [address] Melquiades Man MD 08/01/2023 Orders Only [facility] Scanner 1 scan: (1-Ord) [facility], 08/01/2023 07/31/2023 Telephone [facility] [address] [place] [address] Melquiades Man MD 07/27/2023 11:30 AM CDT Office Visit [facility] [address] [place] [address] [place] [address] Shade Manuel MD CV Heart Failure Est (6 mo f/u, discuss recent med changes. ) 07/27/2023 10:45 AM CDT Orders Only [facility] [address] [place] [address] [place] [address] Lab 07/27/2023 Travel 07/24/[address] [address] Melquiades Man MD 07/24/2023 Refill [facility] [address] [place] [address] Melquiades Man MD Refill Request (Fiasp Flextouch Pen Inj 3ml ) 07/20/2023 1:00 PM SOLE CONDITIONER Telemedicine [facility] [address] [place] [address] Santana Nails MD Wound Check 07/20/[address] [address] Melquiades Man MD Refill Request; NOVOLOG FLEXPEN 07/20/[address] [address] Ezequiel Nye, AuD Hearing Aid 07/19/[address] [address] Melquiades Man MD 07/18/2023 Refill [facility] [address] [place] [address] Melquiades Man MD Refill Request (Basaglar 100 U/ML Kwikpen INJ 3ml) 07/17/2023 2:05 PM SOLE CONDITIONER Office Visit [address] [address] Melquiades Man MD Medication Management; Follow Up (Discharged from long term 06/20/23, left foot wound developed while at the long term) 07/17/2023 Telephone [facility] [address] [place] [address] Melquiades Man MD Refill Request (insulin) 07/17/2023 Travel 07/17/2023 Telephone [facility] [address] [place] [address] Melquiades Man MD Form 07/12/2023 Telephone [facility] [address] [place] [address] Melquiades Man MD 07/11/2023 Telephone [facility] [address] [place] [address] Ezequiel Nye, [employer] (AUTHORIZATION) 07/10/2023 Telephone [facility] [address] [place] [address] Melquiades Man MD 07/05/2023 Telephone [facility] [address] [place] [address] Melquiades Man MD Home Care 07/03/2023 Telephone [facility] [address] [place] [address] Melquiades Man MD Follow Up (orders) 07/02/2023 Telephone [facility] [address] [place] [address] Santana Nails MD Appointment 07/02/2023 Telephone [facility] [address] [place] [address] Ezequiel Nye, AuD Referral 07/01/2023 Telephone [facility] [address] [place] [address] Kimberly Hurtado MD 07/01/2023 Nurse Triage [facility] [address] [place] [address] Melquiades Man MD High Blood Sugar 06/28/2023 Telephone [facility] [address] [place] [address] Melquiades Man MD 06/25/2023 Telephone [place] [address] [place] [address] Votel, Melquiades Gray MD ACC Order Request 06/22/2023 Telephone [facility] [address] [place] [address] Votel, Melquiades Gray MD Outside Order 06/21/2023 Telephone [facility] [address] [place] [address] Ezequiel Nye, AuD Form (Referral for services form ( [place] )) from Last 3 Months Immunizations Name Administration Dates Next Due COVID-19 vaccine (Moderna 100mcg/0.5mL) PF, MDV 03/09/2021 COVID-19 vaccine (Moderna 50 mcg/0.5mL) 12YO+ BIVALENT PF, MDV 03/29/2022 COVID-19 vaccine (Pfizer-Bio NTech 30mcg/0.3mL) PF, MDV 03/09/2021,07/24/2020,07/03/2020 COVID-19 vaccine Comirnaty (Pfizer-BioNTech 30mcg/0.3mL) 12YO+ [id number] Formula PF, SDV, PFS 03/05/2023 Influenza Virus, [...] Brother kidney problems Heart Disease Father 1st [place] at 65 d 77 yo CHF Diabetes Mother Heart Disease Mother d 64 yo [place] Genetic Other There is a posi tive [...] T Respiratory Rate 24 05/03/2023 7:04 AM SOLE CONDITIONER Oxygen Saturation 100% 07/27/2023 11:51 AM CDT Inhaled Oxygen Concentration - - Weight 81.6 kg (180 lb) 07/27/2023 11:51 AM CDT pt reported Height 175.3 cm (5' 9.02) 07/27/2023 11:51 AM C DT Body Mass Index 26.57 07/27/2023 11:51 AM CDT Plan of Treatment Upcoming Encounters Date Type Department Care Team (Late st Contact Info) Description 09/06/2023 9:30 AM CDT Appointment [facility] [address] [place] [address] Zoila Grace, PT [address] [address] 09/10/2023 1:00 PM CDT Appointment [facility] [address] [place] [address] Zoila Grace, PT [address] [address] 09/13/2023 1:00 PM CDT Appointment [facility] [address] [place] [address] Zoila Grace, PT [address] [address] 09/20/2023 11:45 AM CDT Appointment [facility] [address] [place] [address] Zoila Grace, PT [address] [address] 09/24/2023 1:00 PM CDT Appointment [facility] [address] [place] [address] Zoila Grace, PT [address] [place] [address] 09/27/2023 1:00 PM CDT Appointment [facility] [address] [place] [address] Zoila Grace, PT [address] [place] [address] 10/01/2023 1:00 PM CDT Appointment [facility] [address] [place] [address] Zoila Grace, PT [address] [place] [address] 10/04/2023 1:45 PM CDT Appointment [facility] [address] [place] [address] Zoila Grace, PT [address] [place] [address] 10/11/2023 1:00 PM CDT Appointment [facility] [address], [place] [address] Zoila Grace, PT [address], [place] [address] 10/15/2023 1:00 PM CDT Appointment [facility] [address] [place] [address] Zoila Grace, PT [address] [place] [address] 10/18/2023 1:00 PM CDT Appointment [facility] [address] [place] [address] Zoila Grace, PT [address] [place] [address] 10/22/2023 1:00 PM CDT Appointment [facility] [address], [place] [address] Zoila Grace, PT [address] [place] [address] 10/25/2023 1:00 PM CDT Appointment [facility] [address] [place] [address] Zoila Grace, PT [address] [place] [address] 10/29/2023 1:00 PM CDT Appointment [facility] [address], [place] [address] Zoila Grace, PT [address], [place] [address] 11/01/2023 1:00 PM CDT Appointment [facility] [address] [place] [address] JohnfaviolaZoila, PT [address] [place] [address] 11/05/2023 1:00 PM CDT Appointment [facility] [address] [place] [address] Zoila Grace, PT [address] [place] [address] Health Maintenance Due Date Last Done Comments [...] AM CDT Acute decompensated heart failure (HC) from Last 3 Months Results * SCAN-EYE EXAM (08/01/2023 12:00 AM CDT) Scanner OTHER * (ABNORMAL) PRO-BNP (07/27/2023 10:49 AM CDT) PRO-BNP 7,600(H) <450 pg/mL 07/27/2023 11:09 PM CDT [facility] Blood BLOOD SPECIMEN / Unknown Butterfly / Unknown 07/27/2023 10:49 AM CDT 07/27/2023 10:50 AM CDT Narrative [facility] - 07/27/2023 11:09 PM CDT The [...] failure. ? Melquiades Man MD SEND OUTS [facility] [address] [place] [address], * (ABNORMAL) BASIC METABOLIC PANEL (07/27/2023 10:49 AM CDT) SODIUM 137 136 - 145 mmol/L 07/27/2023 11:08 PM [facility] POTASSIUM 4.4 3.5 - 5.1 mmol/L 07/27/2023 11:08 PM [facility] CHLORIDE 94(L) 98 - 107 mmol/L 07/27/2023 11:08 PM [facility] CO2,TOTAL 26 22 - 29 mmol/L 07/27/2023 11:08 PM [facility] ANION GAP 17 5 - 18 07/27/2023 11:08 PM T [facility] GLUCOSE 317(H) 70 - 99 mg/dL 07/27/2023 11:08 PM [facility] CALCIUM 10.1 8.8 - 10.2 mg/dL 07/27/2023 11:08 PM [facility] BUN 52(H) 8 - 23 mg/dL 07/27/2023 11:08 PM [facility] CREATININE 1.74(H) 0.70 - 1.20 mg/dL 07/27/2023 11:08 PM [facility] BUN/CREAT RATIO 30(H) 10 - 20 11:08 PM [facility] eGFR 39(L) >90 mL/min/1.7 3m2 07/27/2023 11:08 PM T [facility] Comment:As of 2021, [...] [facility] [address] [place] [address], from Last 3 Months Additional Health Concerns [...] 12 months since positive culture): resides in acute/detention care, receiving hemodialysis, has chronic open wounds/skin damage, has long-term percutaneous indwelling medical devices Exclusions for nares collection (if <12 months since positive culture) include all of the previous exclusions plus patients on antibiotics 7 days prior to collection 03/08/2023 05/31/2023 MDRO-GNB 04/26/2023 04/26/2023 Advance Directives Documents on File Type Date Recorded Patient Roving Hauler Expl anation POLST 03/26/2023 * Full Code [...] Code Status Discussion: Reviewed Preferences Care Teams Obstetrical Nurse Relationship Specialty Start Date End Date VotelMelquiades MD [address] [place] [address] PCP - General 11/20/05 Nurses, Advanced Heart Failure [address] [place] [address] Advanced Heart Failure/Transplant Card 01/24/23 Shade Manuel MD [address] [place] [address] [place] [address] Cardiovascular Disease 01/24/23
--- OUTSIDE RECORDS SUMMARY | 2023-09-05 09:08 | XMS_ITS | Encounter Summary ---
Author Name Unknown Organization [facility] Address [address] [place] [address] Care Team Providers Care Storage Garage Attendant Name Role Phone Santosumdarrell Natalio Mishra APRN, C.N.P., M.S.N. Primary C are Provider Reason for Visit * Appointment Request (Routine) - Closed Specialty Diagnoses / Procedures Referred By Edin mishra Referred To Contact Longterm Facility Referral ID Status Reason Start Date Expiration Date Visits Re quested Visits Authorized [id number] Closed 06/18/2023 06/17/2024 1 1 Encounter Details Date Type Department Care Team (Latest Contact Info) Description 06/18/2023 3:00 PM MEDIA RELATIONS INTERN External Outreach Senior Services in [facility] [address] [address] Hannah Castillo APRN, C.N.P. 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; Hypertension Heart Disease With Congestive Heart Failure (HCC); Hyperlipidemia; Hyperglycemia; Diabetes Mellitus Type 2 With Diabetic Polyneuropathy (HCC); Dementia (HCC); Congestive Heart Failure (HCC); Atrial Fibrillation Other Persistent (HCC); Atherosclerotic Heart Disease Of [place] Coronary Artery Without Angina Pectoris; Atherosclerosis Of [place] Arteries Of Other Extremities With Ulceration (HCC); [...] Comments Blood Pressure 107/66 06/18/2023 1:06 PM MEDIA RELATIONS INTERN Pulse 78 06/18/2023 1:06 PM MEDIA RELATIONS INTERN Temperature 36.6 ??C (97.8 ??F) 06/18/2023 1:06 PM CS T Respiratory Rate 16 06/18/2023 1:06 PM MEDIA RELATIONS INTERN Oxygen Saturation 92% 06/18/2023 1:06 PM MEDIA RELATIONS INTERN Inhaled Oxygen Concentration - - Weight 75.8 kg (167 lb) 06/18/2023 1:06 PM MEDIA RELATIONS INTERN Height - - Body Mass Index 24.66 04/12/2023 3:21 PM MEDIA RELATIONS INTERN documented in this encounter Patient Instructions * Patient Instructions* Hannah Castillo V., RAYNA, C.N.P. - 06/18/2023 3:00 PM MEDIA RELATIONS INTERN ORDERS and INSTRUCTIONS: Face to face discharge [...] 3 Electronically signed by: Hannah Castillo APRN, C.N.PCarito 06/18/23 2:09 PM MEDIA RELATIONS INTERN A RELATIONS INTERN documented in this encounter Progress Notes * Hannah Castillo APRN, C.NLucio - 06/18/2023 3:00 PM CST CHIEF COMPLAINT / REASON FOR VISIT [facility] Discharge Visit Visit Type: In Person: Face to Face SUBJECTIVE HISTORY OF PRESENT ILLNESS Today's narrative history (obtained from Patient, Nursing, and PT/OT): From record: Rosalina was admitted to [facility] on 04/30 with abdominal pain found secondary to constipation. He had acute kidney injury and was hydrated and furosemide was held with dosage decreased. He also had urine infection and was treated with IV antibiotics. He returned to [facility] on 05/03 to continue therapies. He [...] side. #2 Amputation Toe Status Post Left ([facility]) Overview: History of amputation of toe #3 Wound Ankle Open Subsequent Left Overview: 04/25/23: Nursing reported left lower calf/ankle redness. #4 Advanced Care Planning Overview: Full code status #5 Diagnostic Technologist Use Of Insulin Active ([facility]) Overview: On insulin glargine and aspart started during hospitalization December 2022. #6 Hypothyroidism Overview: Component Ref Range & Units 1 mo ago 04/24/23 1 mo ago 04/13/23 2 mo ago 03/11/23 EXT TSH, Sensitive, S 0.27 - 4.20 uIU/mL 16.80 18.20 11.70 #7 Congestive Heart Failure ([facility]) Overview: EF: ECHO with EF 10-20% [...] nursing note reviewed. Exam conducted with a income tax analyst present. Constitutional Appearance: Normal appearance. HENT Head: [...] standard wheelchair Mr. Woods was admitted to [facility] April 10 following BK [...] daily. #2 Amputation Toe Status Post Left ([facility]) Assessment & Plan: Stable #3 Wound [...] Plan: He will be full code #5 Diagnostic Technologist Use Of Insulin Active ([facility]) Assessment & Plan: Nurse reports he is nonadherent to his diabetic diet. He is also on a sliding scale. #6 Hypothyroidism Assessment & Plan: Increase levothyroxine to 50 mcg daily. long-term may give two 25 mcg tablets to equal 50 mcg. 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 Glargine will be increased to 17 units. #11 Hyperglycemia Assessment & Plan: A1C 7.2 He will follow up with his PCP in [place] #12 Hyperkalemia #13 Hyperlipidemia Assessment & Plan: Stay on statin #14 Weakness General Assessment & Plan: He is getting stronger with therapy. He will continue therapy when he gets his prosthesis. He will have a wheelchair upon discharge. #15 Peripheral Vascular Disease ([facility]) Assessment & Plan: Monotor Other orders [...] were ordered. Follow up with PCP in [place] and [facility] as scheduled. PATIENT EDUCATION Ready to learn, [...] orders to facility. Total time 50 minutes. 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 Hypertension Heart Disease With Congestive Heart Failure (HCC) Hyperlipidemia Hyperglycemia Diabetes Mellitus Type 2 With Diabetic Polyneuropathy (HCC) Dementia (HCC) Congestive Heart Failure (HCC) Atrial Fibrillation Other Persistent (HCC) Atherosclerotic Heart Disease Of [place] Coronary Artery Without Angina Pectoris Atherosclerosis Of [place] Arteries Of Other Extremities With Ulceration (HCC) Anemia Iron Deficiency Amputation Toe Status Post Left (HCC) 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 [address] [place] [phone] PCP - General Internal Medicine 04/10/23 08/27/23 documented as of this encounter
--- OUTSIDE RECORDS SUMMARY | 2023-09-05 09:08 | XMS_ITS | Referral Summary ---
Author Name Unknown Organization [facility] Address [address] [place] [address] Care Team Providers Care Chief Fundraising Officer Name Role Phone Elsewhere, Pcp Primary Care Provider Unavailabl e Source Comments Patient records contain information from all sites at [facility]. For routine questions regarding patient records, call [phone] during business hours, M-F 8:00 AM - 5:00 PM Central Time. Record requests for emergency care only can be directed to [phone] at any time.[facility] Encounters Date Type Department Care Team Description 06/18/2023 3:00 PM ASSISTANT FAMILY TEACHER External Outreach Senior Services in [place] [address] [phone] Hannah Castillo APRN, C.N.P. 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 Pressure Injury (Ulcer) Of Left Heel Stage 3 (HCC) (Primary Dx); Other Complications Of Amputation Stump (HCC) 06/07/2023 3:00 PM ASSISTANT FAMILY TEACHER External Outreach Senior Services in [facility] [address] [place] [address] Hannah Castillo APRN, C.N.P. 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 90 tablet 05/24/2023 05/23/2024 Active sulfamethoxazole- trimethoprim (BACTRIM DS) 800-160 mg per tablet Take 1 tablet by mouth 2 (two) times a day. 14 tablet 06/03/2023 Active acetaminophen (TYLENOL) 325 mg tablet Take 2 tablets (650 mg total) by mouth 3 (three) times a day. In once daily prn 180 tablet 06/18/2023 06/17/2024 Active apixaban (ELIQUIS) 5 mg tablet Take 1 tablet (5 mg total) by mouth 2 (two) times a day. 180 tablet 06/18/2023 06/17/2024 Active atorvastatin (LIPITOR) 40 mg [...] Heel: Area continues to improve. Wound measures [id number]. Edges well defined, attached and 100% re-epithelialized [...] will follow up with his PCP in [place] [facility] (Current) Anticoagulant Treatment 08/2022 Overview: On apixaban [...] standard wheelchair Mr. Woods was admitted to [facility] April 10 following BK right lower [...] was 0.92 in April 2023. vice president of development confirmed levothyroxine is given every morning (6am) [...] and gangrene Last Assessment & Plan: Monotor Longterm Stay Certification Exam 01/16/2023 Overview: Short-term stay. [...] and palpitation. Atherosclerotic Heart Diseas e Of [place] Coronary Artery Without Angina Pectoris 01/15/2023 Overview: [...] 6 Anticoagulation: Apixaban Last Assessment & Plan: extermination inspector anticoagulation on apixaban Wardrobe Attendant Use Of Insulin Active 12/09/2022 Overview: On [...] control but to prevent hypoglycemia. Atherosclerosis Of [place] Ar teries Of Other Extremities With Ulceration [...] for COVID-19 12/27/2022. Treated with remdesivir at [facility]. Anemia 01/16/2023 04/12/2023 Overview: Lab Results Component [...] 05/24/2023 Overview: Onychomycosis of toenails; Original Code: [id number] Original Codesystem: [employer] Group[employer] CT Classification: Medical Confirmation Status: Confirmed Diabetes [...] Comments Blood Pressure 107/66 06/18/2023 1:10 PM ASSISTANT FAMILY TEACHER Pulse 78 06/18/2023 1:10 PM ASSISTANT FAMILY TEACHER Temperature 36.6 ??C (97.8 ??F) 06/18/2023 1:10 PM CS T Respiratory Rate 16 06/18/2023 1:10 PM ASSISTANT FAMILY TEACHER Oxygen Saturation 95% 06/18/2023 1:10 PM ASSISTANT FAMILY TEACHER Inhaled Oxygen Concentration - - Weight 75.8 kg (167 lb) 06/18/2023 1:10 PM ASSISTANT FAMILY TEACHER Height 175.3 cm (5' 9) 04/12/2023 3:21 PM ASSISTANT FAMILY TEACHER Body Mass Index 24.66 04/12/2023 3:21 PM ASSISTANT FAMILY TEACHER Plan of Treatment Not on file Advance Directives For more information, please contact: [phone] * DNR/DNI (Latest Code Status on File) Date Activated Date Inactivated Comments 05/24/2023 6:14 PM * DNR/DNI Date Activated Date Inactivated Comments 04/12/2023 4:11 PM 04/16/2023 7:15 AM Care Teams Chief Fundraising Officer Relationship Specialty Start Date End Date Elsewhere, Pcp PCP - General Internal Medicine 08/28/23
--- OUTSIDE RECORDS SUMMARY | 2023-09-05 09:08 | XMS_ITS ---
Author Name Unknown Organization [facility] Address [address] [place] [address] Care Team Providers Care Order Management Specialist Name Role Phone Unavailable Unavailable Unavailable Surgery Details Not on file Complications Check Surgery Details section. Procedure Estimated Blood Loss Check Surgery Details section. Procedure Findings Check Surgery Details section. Procedure Specimens Taken Check Surgery Details section.
--- OUTSIDE RECORDS SUMMARY | 2023-09-05 09:08 | XMS_ITS | Clinical Summary ---
Author Name Unknown Organization [facility] Address [address] [place] [address] Care Team Providers Care Mathematics Faculty Member Name Role Phone Elsewhere, Pcp Primary Care Provider Unavailabl e Source Comments Patient records contain information from all sites at [facility]. For routine questions regarding patient records, call [phone] during business hours, M-F 8:00 AM - 5:00 PM Central Time. Record requests for emergency care only can be directed to [phone] at any time.[facility] Allergies No known active allergies Medications Medication [...] Heel: Area continues to improve. Wound measures [id number]. Edges well defined, attached and 100% re-epithelialized [...] will follow up with his PCP in [place] Drug Safety Data Management Specialist (Current) Anticoagulant Treatment 08/2022 Overview: On apixaban [...] standard wheelchair Mr. Woods was admitted to [facility] April 10 following BK right lower [...] Last T4 was 0.92 in April 2023. engineering vice president confirmed levothyroxine is given every morning (6am) without other medications. Therefore, we will increase levothyroxine 50mcg to 75mcg and rechecked TSH in 6 weeks. Nursing instructed to continue monitoring for symptoms of hypothyroidism and contact [place] provider if any concerns. 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 [...] and palpitation. Atherosclerotic Heart Diseas e Of [place] Coronary Artery Without Angina Pectoris 01/15/2023 Overview: [...] 6 Anticoagulation: Apixaban Last Assessment & Plan: salvage determiner anticoagulation on apixaban Drug Safety Data Management Specialist Use Of Insulin Active 12/09/2022 Overview: On [...] control but to prevent hypoglycemia. Atherosclerosis Of [place] Ar teries Of Other Extremities With Ulceration [...] for COVID-19 12/27/2022. Treated with remdesivir at [facility]. 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 Pressure Injury (Ulcer) Of Left Heel Stage 3 (HCC) (Primary Dx); Other Complications Of Amputation Stump (HCC) 06/07/2023 3:00 PM STOCK PARTS INSPECTOR External Outreach Senior Services in [facility] [address] [place] [address] Hannah Castillo APRN, C.N.P. Diabetes Mellitus Type [...] Comments Blood Pressure 107/66 06/18/2023 1:10 PM STOCK PARTS INSPECTOR Pulse 78 06/18/2023 1:10 PM STOCK PARTS INSPECTOR Temperature 36.6 ??C (97.8 ??F) 06/18/2023 1:10 PM CS T Respiratory Rate 16 06/18/2023 1:10 PM STOCK PARTS INSPECTOR Oxygen Saturation 95% 06/18/2023 1:10 PM STOCK PARTS INSPECTOR Inhaled Oxygen Concentration - - Weight 75.8 kg (167 lb) 06/18/2023 1:10 PM STOCK PARTS INSPECTOR Height 175.3 cm (5' 9) 04/12/2023 3:21 PM STOCK PARTS INSPECTOR Body Mass Index 24.66 04/12/2023 3:21 PM STOCK PARTS INSPECTOR Plan of Treatment Health Maintenance Due Date [...] Advance Directives For more information, please contact: [phone] * DNR/DNI (Latest Code Status on File) Date Activated Date Inactivated Comments 05/24/2023 6:14 PM * DNR/DNI Date Activated Date Inactivated Comments 04/12/2023 4:11 PM 04/16/2023 7:15 AM Care Teams Mathematics Faculty Member Relationship Specialty Start Date End Date Elsewhere, Pcp PCP - General Internal Medicine 08/28/23
--- OUTSIDE RECORDS SUMMARY | 2023-09-05 09:09 | XMS_ITS | Encounter Summary ---
Author Name Unknown Organization [facility] Address [address] [place] [address] Care Team Providers Care Maxillofacial Prosthodontist Name Role Phone Natalio Motta APRN, C.N.PCarito, M.S.N. Primary C are Provider Reason for Visit * Reason Comments Follow-up on blood sugar management * Outpatient (Routine) - Closed Specialty Diagnoses / Procedures Referred By Edni salmeron Referred To Contact [facility] Natalio Motta APRN, C.N.PCarito, M.S.N. [address] [place] [address] [facility] Region Referral ID Status Reason Start Date Expiration Date Visits Re quested Visits Authorized [id number] Closed 05/22/2023 05/21/2026 1 1 Encounter Details Date Type Department Care Team (Latest Contact Info) Description 05/29/2023 10:00 AM SPINNER HAND External Outreach Senior Services in [facility] [address] [place] [phone] Natalio Motta APRN C.N.PCarito, M.S.N. [address] [place] [phone] Diabetes Mellitus Type 2 With Diabetic Polyneuropathy [...] Comments Blood Pressure 102/58 05/29/2023 4:07 PM SPINNER HAND Pulse 86 05/29/2023 4:07 PM SPINNER HAND Temperature 36.2 ??C (97.1 ??F) 05/29/2023 4:07 PM CS T Respiratory Rate - - Oxygen Saturation 100% 05/29/2023 4:07 PM SPINNER HAND ra Inhaled Oxygen Concentration - - Weight 75.8 kg (167 lb) 05/29/2023 4:07 PM SPINNER HAND Height - - Body Mass Index 24.66 04/12/2023 3:21 PM SPINNER HAND documented in this encounter Progress Notes * Natalio Motta, RAYNA, C.N.P., M.S.N. - 05/29/2023 10:00 AM CST CHIEF COMPLAINT / REASON FOR VISIT [facility] Acute Visit Visit Type: In Person: Face to Face SUBJECTIVE Today's narrative history (obtained from Patient and Nursing): HISTORY OF PRESENT ILLNESS Darek Bowers is a 83 y.o. male resident at [facility]. Medical history is significant for systolic CHF, CKD, recent hospitalization for NSTEMI and ischemic cardiomyopathy,hyperlipidemia, diabetic foot ulcers on both feet who presented with progressive gangrene of the right third and nail second toe multiple foot ulcers on the right foot and cellulitis of the right foot , he does have anorexia and has lost up to [address] this summer, and has been doing poorly [...] Type 2 With Diabetic Polyneuropathy ([facility]) Overview: Lab Results Component Value Date HGBA1C 7.2 (H) 05/01/2023 Goal HgbA1C: < 8.0 Oral: None Injectable: Insulin aspart and glargine BG check frequency: 4 times daily #2 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 ([facility]) Overview: 03/08/2023: In the ED, podiatry [...] side. #3 Amputation Toe Status Post Left ([facility]) Overview: History of amputation of toe #4 Dementia ([facility]) Overview: No documented dementia or behaviors Past [...] 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 ([facility]) #3 Amputation Toe Status Post Left ([facility]) #4 Dementia ([facility]) Other orders - [facility] office [...] family, and/or facility staff. Totaltime 20 minutes. NER HAND documented in this encounter Miscellaneous Notes * [...] sees his endocrinology as soon as possible. 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 [address] [place] [phone] PCP - General Internal Medicine 04/10/23 08/27/23 documented as of this encounter
--- OUTSIDE RECORDS SUMMARY | 2023-09-05 09:09 | XMS_ITS | Encounter Summary ---
Author Name Unknown Organization [facility] Address [address] [place] [address] Care Team Providers Care Restaurant Greeter Name Role Phone SantosumNatalio ramírez APRN C.N.PCarito, M.S.N. Primary C are Provider Reason for Visit * Reason Onset Date Comments Discharge Notice 05/23/2023 Encounter Details Date Type Department Care Team (Latest Contact Info) Description 05/23/2023 Clinical Communication Division of [facility], [facility] in [place], [place] [address] [place] [phone] Natalio Motta APRN, C.N.P., M.S.N. [address] [place] [phone] Discharge Notice Social History Tobacco Use Types [...] on filedocumented in this encounter Care Teams Restaurant Greeter Relationship Specialty Start Date End Date Natalio Motta APRN, C.N.PCarito, M.S.N. [address] [place] [phone] PCP - General Internal Medicine 04/10/23 08/27/23 documented as of this encounter
--- OUTSIDE RECORDS SUMMARY | 2023-09-05 09:09 | XMS_ITS | Encounter Summary ---
Author Name Unknown Organization [facility] Address [address] [place] [address] Care Team Providers Care Manager Social Services Name Role Phone Santosumdarrell Natalio Mishra APRN, C.N.P., M.S.N. Primary C are Provider Reason for Visit * Appointment Request (Routine) - Closed Specialty Diagnoses / Procedures Referred By Edin mishra Referred To Contact [facility] Facility Referral ID Status Reason Start Date Expiration Date Visits Re quested Visits Authorized [id number] Closed 05/23/2023 05/22/2024 1 1 Encounter Details Date Type Department Care Team (Latest Contact Info) Description 05/24/2023 3:00 PM BIOGEOGRAPHER External Outreach Senior Services in [facility] [address], [place] [address] Hannah Castillo APRN, C.N.P. 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) (Primary Dx); Amputation Toe Status Post Left (HCC); Wound Ankle Open Subsequent Left; Advanced Care Planning; Group Home Use Of Insulin Active (HCC); Hypothyroidism; Congestive [...] Comments Blood Pressure 107/66 06/18/2023 1:10 PM BIOGEOGRAPHER Pulse 78 06/18/2023 1:10 PM BIOGEOGRAPHER Temperature 36.6 ??C (97.8 ??F) 06/18/2023 1:10 PM CS T Respiratory Rate 16 06/18/2023 1:10 PM BIOGEOGRAPHER Oxygen Saturation 95% 06/18/2023 1:10 PM BIOGEOGRAPHER Inhaled Oxygen Concentration - - Weight 75.8 kg (167 lb) 06/18/2023 1:10 PM BIOGEOGRAPHER Height - - Body Mass Index 24.66 04/12/2023 3:21 PM BIOGEOGRAPHER documented in this encounter Patient Instructions * Patient Instructions* Hannah Castillo APRN, C.N.P. - 05/24/2023 3:00 PM BIOGEOGRAPHER ORDERS and INSTRUCTIONS: Face to face Discharge [...] wheelchair DME Medical Justification: Manual wheelchair A [id number] encounter was conducted on 05/24/23 by Hannah [...] 25 mcg tabs until discharge from the [facility] Electronically signed by: Hannah Castillo APRN, C.N.PCarito 05/24/23 6:17 PM BIOGEOGRAPHER EOGRAPHER documented in this encounter H&P Notes * Hannah Castillo APRN, C.N.Dell. - 05/24/2023 3:00 PM CST CHIEF COMPLAINT / REASON FOR VISIT [facility] Discharge Visit Visit Type: In Person: Face to Face SUBJECTIVE HISTORY OF PRESENT ILLNESS Discharge visit updated 06/18/23 with face to face visit on 06/18/23 Today's narrative history (obtained from Patient, Nursing, and PT/OT): From record: Rosalina was admitted to [facility] on 04/30 with abdominal pain found secondary to constipation. He had acute kidney injury and was hydrated and furosemide was held with dosage decreased. He also had urine infection and was treated with IV antibiotics. He returned to [facility] on 05/03 to continue therapies. He [...] #2 Amputation Toe Status Post Left (HCC) Overview: History of amputation of toe #3 Wound Ankle Open Subsequent Left Overview: 04/25/23: Nursing reported left lower calf/ankle redness. 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 #6 Hypothyroidism Overview: Component Ref Range & Units 1 mo ago 04/24/23 1 mo ago 04/13/23 2 mo ago 03/11/23 EXT TSH, Sensitive, S 0.27 - 4.20 uIU/mL 16.80 18.20 11.70 #7 Congestive Heart Failure ([facility]) Overview: EF: ECHO with EF 10-20% on [...] Mellitus Type 2 With Diabetic Polyneuropathy ([facility]) Overview: Lab Results Component Value [...] nursing note reviewed. Exam conducted with a cataract lens generator present. Constitutional Appearance: Normal appearance. HENT Head: [...] standard wheelchair Mr. Woods was admitted to [facility] April 10 following BK right lower extremity. [...] site #2 Amputation Toe Status Post Left ([facility]) Assessment & Plan: Stable #3 Wound Ankle Open Subsequent Left Assessment & Plan: Stable #4 Advanced Care Planning Assessment & Plan: He will be full code #5 Group Home Use Of Insulin Active ([facility]) Assessment & Plan: Nurse reports he is nonadherent to his diabetic diet. He is also on a sliding scale. #6 Hypothyroidism Assessment & Plan: Increase levothyroxine to 50 mcg daily. long-term may give two 25 mcg tablets to equal 50 mcg. 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 Glargine will be increased to 17 units. #11 Hyperglycemia Assessment & Plan: A1C 7.2 He will follow up with his PCP in [place] #12 Hyperkalemia #13 Hyperlipidemia Assessment & Plan: Stay on statin #14 Weakness General Assessment & Plan: He is getting stronger with therapy. He will continue therapy when he gets his prosthesis. He will have a wheelchair upon discharge. #15 Peripheral Vascular Disease ([facility]) Assessment & Plan: Monotor Other orders - [...] were ordered. Follow up with PCP in [place] and [facility] as scheduled. PATIENT EDUCATION Ready to learn, [...] orders to facility. Total time 45 minutes. EOGRAPHER documented in this encounter Miscellaneous Notes * Assessment & Plan Note - Hannah Castillo APRN, C.N.P. - 05/24/2023 6:08 PM CSTAssociated Problem(s): Peripheral Vascular Disease (HCC) Monotor EOGRAPHER * Assessment & Plan Note - Hannah Castillo APRN, C.N.P. - 05/24/2023 6:05 PM CSTAssociated Problem(s): Weakness General He is getting stronger with therapy. He will continue therapy when he gets his prosthesis. He will have a wheelchair upon discharge. EOGRAPHER * Assessment & Plan Note - Hannah Castillo APRN, C.N.P. - 05/24/2023 6:01 PM CSTAssociated Problem(s): Hyperlipidemia Stay on statin EOGRAPHER * Assessment & Plan Note - Hannah Castillo APRN, C.N.P. - 05/24/2023 6:00 PM CSTAssociated Problem(s): Hyperglycemia A1C 7.2 He will follow up with his PCP in [place] EOGRAPHER * Assessment & Plan Note - Hannah Castillo APRN, C.N.P. 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 Glargine will be increased to 17 units. EOGRAPHER * Assessment & Plan Note - Hannah Castillo APRN, C.N.P. - 05/24/2023 5:57 PM CSTAssociated Problem(s): Dementia (HCC) He has low hearing which could contribute to him not understanding EOGRAPHER * Assessment & Plan Note - Hannah Castillo APRN, C.N.P. - 05/24/2023 5:53 PM CSTAssociated Problem(s): Atrial Fibrillation Other Persistent (HCC) alf anticoagulation on apixaban EOGRAPHER * Assessment & Plan Note - Hannah Castillo APRN, C.N.P. - 05/24/2023 5:52 PM CSTAssociated Problem(s): Congestive Heart Failure (HCC) Stable on current meds EOGRAPHER * Assessment & Plan Note - Hannah Castillo APRN C.N.P. - 05/24/2023 5:24 PM CSTAssociated Problem(s): Hypothyroidism Increase levothyroxine to 50 mcg daily. long-term may give two 25 mcg tablets to equal 50 mcg. He will be discharging in a week EOGRAPHER * Assessment & Plan Note - Hannah Castillo APRN, C.N.P. - 05/24/2023 5:20 PM CSTAssociated Problem(s): Group Home Use Of Insulin Active (HCC) Nurse reports he is nonadherent to his diabetic diet. He is also on a sliding scale. EOGRAPHER * Assessment & Plan Note - Hannah Castillo APRN, C.N.P. - 05/24/2023 5:19 PM CSTAssociated Problem(s): Amputation Toe Status Post Left (HCC) Stable EOGRAPHER * Assessment & Plan Note - Hannah Castillo APRN, C.N.P. 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 He will need a standard wheelchair Mr. Woods was admitted to [facility] April 10 following BK right lower extremity. [...] continue to provide support to amputation site EOGRAPHER * Assessment & Plan Note - Hannah Castillo APRN, C.N.P. - 05/24/2023 5:15 PM CSTAssociated Problem(s): Advanced Care Planning He will be full code EOGRAPHER * Assessment & Plan Note - Hannah Castillo APRN, C.N.P. - 05/24/2023 5:14 PM CSTAssociated Problem(s): Wound Ankle Open Subsequent Left (Resolved 05/24/2023) Stable EOGRAPHER * ACP (Advance Care Planning) - Hannah Castillo APRN, C.N.P. - 05/24/2023 3:00 PM CST Advance Care Planning Reason for Conversation This patient is a 83 y.o. year old male that presents for Discharge ch[facility] visit. 1. 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 [address] [place] [phone] PCP - General Internal Medicine 04/10/23 08/27/23 documented as of this encounter
--- OUTSIDE RECORDS SUMMARY | 2023-09-05 09:09 | XMS_ITS | Encounter Summary ---
Author Name Unknown Organization [facility] Address [address] [place] [address] Care Team Providers Care Lead Athlete Name Role Phone SantosumJessica ramírezNataliotashi Mishra APRN, C.N.P., M.S.N. Primary C are Provider Reason for Visit * Appointment Request (Routine) - Closed Specialty Diagnoses / Procedures Referred By Edin mishra Referred To Contact Detention Facility Referral ID Status Reason Start Date Expiration Date Visits Re quested Visits Authorized [id number] Closed 05/31/2023 05/30/2024 1 1 Encounter Details Date Type Department Care Team (Latest Contact Info) Description 05/31/2023 10:00 AM BUFFET RUNNER External Outreach Senior Services in [facility] [address], [place] [phone] Hannah Castillo APRN, C.N.P. [address] [place] [address] [place] [phone] Pressure Injury (Ulcer) Of Left Heel Stage [...] Comments Blood Pressure 103/66 05/31/2023 9:47 AM BUFFET RUNNER Pulse 77 05/31/2023 9:47 AM BUFFET RUNNER Temperature 36.2 ??C (97.1 ??F) 05/31/2023 9:47 AM CS T Respiratory Rate 18 05/31/2023 9:47 AM BUFFET RUNNER Oxygen Saturation 100% 05/31/2023 9:47 AM BUFFET RUNNER Inhaled Oxygen Concentration - - Weight 72.8 kg (160 lb 9.6 oz) 05/31/2023 9:47 A M BUFFET RUNNER Height - - Body Mass Index 23.72 04/12/2023 3:21 PM BUFFET RUNNER documented in this encounter Patient Instructions * Patient Instructions* Hannah Castillo APRN, C.N.P. - 05/31/2023 10:00 AM BUFFET RUNNER ORDERS and INSTRUCTIONS: Acute visit done: Wound cleansed with saline and dried wound culture obtained. Aquacel AG cut to fit wound bed and lightly moistened with saline covered with border dressing. Change bid. CARPET CUTTER to evaluate in one week Electronically signed by: Hannah Castillo APRN, C.N.P. 06/01/23 2:33 PM BUFFET RUNNER ET RUNNER documented in this encounter Progress Notes * Hannah Castillo APRN, C.N.P. - 05/31/2023 10:00 AM CST CHIEF COMPLAINT / REASON FOR VISIT [facility] Acute Visit Visit Type: In Person: Face [...] with border dressing.Change bid. Alverto ALEGRE, nurse capacity manager assisted with wound care. Past medical/surgical [...] & Plan: Continue wound care and have CARPET CUTTER evaluate in one week. PATIENT EDUCATION Ready [...] orders to facility. Total time 30 minutes. ET RUNNER documented in this encounter Miscellaneous Notes * Assessment & Plan Note - Hannah Castillo APRN, C.N.P. - 06/01/2023 2:33 PM CSTAssociated Problem(s): Pressure Injury (Ulcer) Of Left Heel Stage 3 (HCC) Continue wound care and have CARPET CUTTER evaluate in one week. ET RUNNER documented in this encounter Plan of Treatment Not on file documented as of this encounter Visit Diagnoses Diagnosis Pressure Injury (Ulcer) Of Left Heel Stage 3 (HCC)- Primary documented in this encounter Care Teams Lead Athlete Relationship Specialty Start Date End Date Natalio Motta APRN, C.N.P., M.S.N. [address] [place] [phone] PCP - General Internal Medicine 04/10/23 08/27/23 documented as of this encounter
--- OUTSIDE RECORDS SUMMARY | 2023-09-05 09:09 | XMS_ITS | Encounter Summary ---
Author Name Unknown Organization [facility] Address [address] [place] [address] Care Team Providers Care National Sales Name Role Phone Natalio Motta APRN C.N.PCarito, M.S.N. Primary C are Provider Reason for Visit * Reason Onset Date Comments intermediate medication reconciliation Urinary Symptom 06/11/2023 * Appointment Request (Routine) - Closed Specialty Diagnoses / Procedures Referred By Edin salmeron Referred To Contact [facility] Facility Referral ID Status Reason Start Date Expiration Date Visits Re quested Visits Authorized [id number] Closed 04/10/2023 04/09/2024 1 1 Encounter Details Date Type Department Care Team (Latest Contact Info) Description 04/11/2023 3:00 PM ZOOLOGY TEACHER External Outreach Senior Services in [facility] [address] [place] [phone] Natalio Motta APRN, C.NLucio, M.S.N. [address] [place] [phone] 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 [...] And With Unspecified Stage Chronic Kidney Disease; Penitentiary Stay Certification Exam; Polypharmacy; Advanced Care Planning; [...] Comments Blood Pressure 112/72 04/12/2023 4:22 PM ZOOLOGY TEACHER Pulse 85 04/12/2023 4:22 PM ZOOLOGY TEACHER Temperature 36.6 ??C (97.8 ??F) 04/12/2023 4:22 PM CS T Respiratory Rate 18 04/12/2023 4:22 PM ZOOLOGY TEACHER Oxygen Saturation 97% 04/12/2023 4:22 PM ZOOLOGY TEACHER Room air Inhaled Oxygen Concentration - - Weight - - Height - - Body Mass Index - - documented in this encounter Progress Notes * Natalio Motta APRN, C.NLucio, M.S.N. - 04/11/2023 3:00 PM CST Encounter created to obtain urine specimen. OGY TEACHER documented in this encounter H&P Notes * Natalio Motta APRN C.N.P. - 04/11/2023 3:00 PM CST Images from the original note were not included. CHIEF COMPLAINT / REASON FOR VISIT [facility] Follow Up Visit Visit Type: In Person: Face to Face SUBJECTIVE HISTORY OF PRESENT ILLNESS Darek Bowers is a 82 y.o. male resident at [facility]. Medical history is significant for systolic CHF, CKD, recent hospitalization for NSTEMI and ischemic cardiomyopathy,hyperlipidemia, diabetic foot ulcers on both feet who presented with progressive gangrene of the right third and nail second toe multiple foot ulcers on the right foot and cellulitis of the right foot , he does have anorexia and has lost up to 20 pounds since his DC this summer, and has been doing poorly since that time. Per EHR, patient has been dealing with foot ulcers and worsening gangrene of his third right toe since he has had his NSTEMI back in November,. Patient's reported they have been following at a wound clinic. They recently saw a vascular surgeon down at [place] who recommended Ortho foot to see him but that appointment cannot be made until April. He was seen again in wound clinic on 03/08/2023 at the outside hospital and felt the wound to be worsening so transferred to [facility] ED. 03/08/2023: In the ED, podiatry and [...] Family Member): Patient is seen today for chcf medication reconciliation with his in attendance. Patient//nursing [...] check of right leg amputation at the [facility], 2nd Floor. [address] [place] [address] on 05/11/2023 at 10:00 AM. Please see the After Visit Summary for additional information. Please [id number] minutes early. Call [facility] at [phone] to reschedule as needed or for further [...] Disease Overview: Treatment: Metoprolol Goal: 120-130 #14 Penitentiary Stay Certification Exam Overview: Short-term stay. #15 [...] Blood pressure normotensive. Continue care plan. #12 Penitentiary Stay Certification Exam Assessment & Plan: Plans [...] extensive time spent on other activities: 70. OGY TEACHER documented in this encounter Miscellaneous Notes * [...] been working with PT and tolerating therapy. OGY TEACHER * Assessment & Plan Note - Natalio Motta APRN, C.N.P. - 04/12/2023 4:45 PM CSTAssociated Problem(s): Hypothyroidism Continue levothyroxine. TSH reordered. OGY TEACHER * Assessment & Plan Note - Natalio Motta APRN, C.N.P. - 04/12/2023 4:09 PM CSTAssociated Problem(s): Weakness General Verbalized improvement with weakness. We will continue therapy. OGY TEACHER * Assessment & Plan Note - Natalio Motta APRN, C.N.P. - 04/12/2023 4:08 PM CSTAssociated Problem(s): Penitentiary Stay Certification Exam Plans to discharge back home. Patient remains appropriate SNF resident. Order summary paperwork signed following our visit, this included review of medications and orders. Current comorbidities, ADL need/level of debility requires skilled care/therapy. Medications and labs all reviewed and appropriate related to comorbidities, unless otherwise indicated. Physician order sheet signed. Continue PT/OT therapy, nutrition intervention, skin protection, and fall prevention. OGY TEACHER * Assessment & Plan Note - Natalio Motta APRN, C.N.P. - 04/12/2023 4:07 PM CSTAssociated Problem(s): Hypertensive Heart And Chronic Kidney Disease Without Heart Failure And WithUnspecified Stage Chronic Kidney Disease Images from the original note were not included. Blood pressure normotensive. Continue care plan. OGY TEACHER * Assessment & Plan Note - Natalio Motta APRN, C.N.P. - 04/12/2023 4:05 PM CSTAssociated Problem(s): Hyperkalemia (Resolved 05/24/2023) BMP ordered. OGY TEACHER * Assessment & Plan Note - Natalio Motta APRN, C.N.P. 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 Currently on Glipizide, showed and long-acting insulins. Blood sugar check 4 times daily. Nursing/patient denied episodes of hypoglycemia. We will continue care plan. OGY TEACHER * Assessment & Plan Note - Natalio Motta APRN, C.N.P. - 04/12/2023 4:01 PM CSTAssociated Problem(s): Congestive Heart Failure (HCC) No admission weight yet. Nursing to check patient's weight OGY TEACHER * Assessment & Plan Note - Natalio Motta APRN, C.N.P. - 04/12/2023 3:59 PM CSTAssociated Problem(s): Atrial Fibrillation Other Persistent (HCC) HR well controlled ranging from 82-85. Continue care plan. OGY TEACHER * Assessment & Plan Note - Natalio Motta APRN, C.N.P. - 04/12/2023 3:57 PM CSTAssociated Problem(s): Anemia Iron Deficiency Stable. Denied dizziness, lightheadedness, shortness of breaths and palpitation. OGY TEACHER * Assessment & Plan Note - Natalio Motta APRN C.N.P. - 04/12/2023 3:57 PM CSTAssociated Problem(s): Anemia (Resolved 04/12/2023) CBC reordered. Denied dizziness, lightheadedness, shortness of breaths or palpitation. OGY TEACHER * Addendum Note - Natalio Motta APRN, C.N.P., M.S.N. - 04/11/2023 3:00 PM CSTAddended by: NATALIO MOTTA on: 06/11/2023 09:41 AM Modules accepted: Orders, Level of Service OGY TEACHER documented in this encounter Plan of Treatment [...] And With Unspecified Stage Chronic Kidney Disease Penitentiary Stay Certification Exam Polypharmacy Advanced Care Planning Hypothyroidism Dysuria documented in this encounter Care Teams National Sales Relationship Specialty Start Date End Date Natalio Motta APRN, C.NCaritoP., M.S.N. [address] [place] [phone] PCP - General Internal Medicine 04/10/23 08/27/23 documented as of this encounter
--- OUTSIDE RECORDS SUMMARY | 2023-09-05 09:09 | XMS_ITS | Encounter Summary ---
Author Name Unknown Organization [facility] Address [address] [place] [address] Care Team Providers Care Radio Board Operator Announcer Name Role Phone Jessica Mottatashi Mishra APRN, C.N.P., M.S.N. Primary C are Provider Encounter Details Date Type Department Care Team (Late st Contact Info) Description 06/03/2023 Clinical Communication Senior Services in [facility] [address] [place] [phone] Laura Grover M.D. [address] [phone] Social History Tobacco Use Types [...] by: Laura Enriquez M.D. 06/03/23 3:18 PM INSTRUCTOR EXTENSION WORK RUCTOR EXTENSION WORK documented in this encounter Plan of Treatment Not on file documented as of this encounter Visit Diagnoses Not on filedocumented in this encounter Care Teams Radio Board Operator Announcer Relationship Specialty Start Date End Date Natalio Motta APRN, C.N.P., M.S.N. [address] [place] [phone] PCP - General Internal Medicine 04/10/23 08/27/23 documented as of this encounter
--- OUTSIDE RECORDS SUMMARY | 2023-09-05 09:09 | XMS_ITS | Encounter Summary ---
Author Name Unknown Organization [facility] Address [address] [place] [address] Care Team Providers Care Membership Manager Name Role Phone Natalio Motta APRN C.N.PCarito, M.S.N. Primary C are Provider Reason for Visit * Appointment Request (Routine) - Closed Specialty Diagnoses / Procedures Referred By Edin salmeron Referred To Contact Alf Facility Referral ID Status Reason Start Date Expiration Date Visits Re quested Visits Authorized [id number] Closed 06/05/2023 06/04/2024 1 1 Encounter Details Date Type Department Care Team (Latest Contact Info) Description 06/05/2023 3:00 PM GARBAGE TR[employer] HELPER External Outreach [facility] [address] [place] [address] [phone] Natalio Motta APRN C.N.P., M.S.N. [address] [place] [address] Hypothyroidism (Primary Dx); Weakness General; Amputation Toe [...] Comments Blood Pressure 120/70 06/05/2023 4:30 PM GARBAGE TRUCK HELPER Pulse 81 06/05/2023 4:30 PM GARBAGE TRUCK HELPER Temperature 36.3 ??C (97.4 ??F) 06/05/2023 4:30 PM CS T Respiratory Rate 18 06/05/2023 4:30 PM GARBAGE TRUCK HELPER Oxygen Saturation 100% 06/05/2023 4:30 PM GARBAGE TRUCK HELPER Inhaled Oxygen Concentration - - Weight 76.6 kg (168 lb 12.8 oz) 06/05/2023 4:30 PM GARBAGE TRUCK HELPER Height - - Body Mass Index 24.93 04/12/2023 3:21 PM GARBAGE TRUCK HELPER documented in this encounter Progress Notes * Natalio Motta, RAYNA, C.N.P., M.S.N. - 06/05/2023 3:00 PM CST CHIEF COMPLAINT / REASON FOR VISIT [facility] Acute Visit Visit Type: In Person: Face to Face SUBJECTIVE Today's narrative history (obtained from Patient and Nursing): HISTORY OF PRESENT ILLNESS Darek Bowers is a 83 y.o. male resident at [facility]. 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 vice president safety confirmed levothyroxine is given every morning (6am) without other medications. Therefore, we will increase levothyroxine 50mcg [id number] and rechecked TSH in 6 weeks. Nursing instructed to continue monitoring for symptoms of hypothyroidism and contact [facility] provider if any concerns. Orders: - S-TSH [...] family, and/or facility staff. Totaltime 20 minutes. AGE TRUCK HELPER documented in this encounter Miscellaneous Notes * Assessment & Plan Note - Natalio Motta APRN C.N.P., M.S.N. - 06/05/2023 9:26 PM CSTAssociated Problem(s): Weakness General Denied weakness. We will continue therapy. AGE TRUCK HELPER * Assessment & Plan Note - Natalio Motta APRN, C.N.P., M.S.N. - 06/05/2023 9:25 PM CSTAssociated Problem(s): Hypothyroidism TSH value improved compared to prior value of 16.0 a month ago. Resident /nursing denied symptoms of hypothyroidism. Last T4 was 0.92 in April 2023. vice president safety confirmed levothyroxine is given every morning (6am) without other medications. Therefore, we will increase levothyroxine 50mcg [id number] and rechecked TSH in 6 weeks. Nursing instructed to continue monitoring for symptoms of hypothyroidism and contact [facility] provider if any concerns. 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 [phone] PCP - General Internal Medicine 04/10/23 08/27/23 documented as of this encounter
== END 2023-09-05 09:06 | disposition home or self-care (01) ==
LOC: WOUND 09:06
PROVIDERS: PCP Family Medicine; Visit Provider Family Medicine
DX: E11.621 Type 2 diabetes mellitus with foot ulcer (principal); I70.25 Atherosclerosis of native arteries of other extremities with ulceration; L97.422 Non-pressure chronic ulcer of left heel and midfoot with fat layer exposed; Z79.4 Long term (current) use of insulin; Z79.84 Long term (current) use of oral hypoglycemic drugs
CPT/HCPCS: 11042

== ENCOUNTER 2023-09-12 09:04 | Outpatient (CLI) | payer MEDICARE, BC, SELFPAY ==
--- OUTSIDE RECORDS SUMMARY | 2023-09-12 09:08 | XMS_ITS | Continuity of Care Document ---
Author Name [facility] Organization [facility] Care Team Providers Care Nursing Assoc Name Role Phone [facility] Unavailable Unavailable Problems Combined list of problems from Department of [facility] and [facility] facilities. It does not include entries that were removed or entered in error. Problem Status Onset Date Problem Type Date of Resolution Comments Source Exposure to potentially hazardous substance ([facility] [id number]) Active 07/20/19 24 Condition Jul 20, 2023 Entered By: MECHELLE DEMPSEY Comment: [facility] TAM Documentation Initiative [facility] CAD - Coronary Artery Disease ([facility] [id number]) Active Condition [place] [facility] CHF - Congestive Heart Failure ([facility] [id number]) Active Condition [facility]) Diabetes Mellitus Type 2 ([facility] [id number]) Active Condition [facility]) HTN - Hypertension ([facility] [id number]) Active Condition [place] ([facility]) Hyperlipidemia ([facility] [id number]) Active Condition [facility]) Long-term current use of insulin Active Condition [facility]) Peripheral neuropathy due to type 2 diabetes mellitus Active Condition [place] ([facility]) Diagnosis: ICD-10-CM H90.3 Sensorineural hearing loss, bilateral Active Diagnosis [facility] Diagnosis: ICD-10-CM I50.9 Heart failure, unspecified Active Diagnosis [facility]) Diagnosis: ICD-10-CM E11.9 Type 2 diabetes mellitus without complications Active Diagnosis [facility] Diagnosis: ICD-10-CM R26.89 Other abnormalities of gait and mobility Active Diagnosis [facility] ([facility]) Diagnosis: ICD-10-CM Z00.00 Encntr for general adult medical exam w/o abnormal findings Active Diagnosis [facility] ([facility]) Medications Combined list of outpatient medications from Department of [facility] and [facility] facilities.Medications provided include 1) outpatient [...] WOUND CARE ORDERS TOPICA LLThanh ACTIVE 02/16/2024 [id number] KATHY MURPHY 2022 40 [place] [...] Site Reaction Lot Number CVX Code Drug C Software Developer Status Comments Source INFLUENZA, HIGH-DOSE, QUADRIVALENT [address] [facility] COVID-19 (MODERNA), MRNA, LNP-S, BIVALENT, PF, 50 MCG/0.5 ML OR 25MCG/0.25 ML DOSE [address] [facility] COVID-19 (PFIZER), MRNA, LNP-S, PF, 30 MCG/0.3 ML DOSE 3 2020 208 complet [facility] INFLUENZA, UNSPECIFIED FORMULATION 2020 88 complet ed [facility] TDAP 2020 115 complet ed [facility] [employer], [id number] , exp-2022 and given VIS dated 12/17/2020 [facility] ZOSTER RECOMBINANT 2 2020 187 complet ed [facility]) ZOSTER RECOMBINANT 1 2020 187 complet ed [facility]) COVID-19 (PFIZER), MRNA, LNP-S, PF, 30 MCG/0.3 ML DOSE [address] [facility] COVID-19 (PFIZER), MRNA, LNP-S, PF, 30 MCG/0.3 ML DOSE [address] [facility] INFLUENZA, UNSPECIFIED FORMULATION 2019 88 complet ed [facility] PNEUMOCOCCAL CONJUGATE PCV 13 2014 133 complet ed Per [facility] PNEUMOCOCCAL POLYSACCHARID E PPV23 2010 33 complet ed [facility] PNEUMOCOCCAL POLYSACCHARID E PPV23 2005 33 complet ed [facility] Results Combined list of recent chemistry, hematology [...] 2023 02:00 PM Reporting Lab: [facility] [address] Performing Lab: [facility] [address] [place] ([facility]) BASIC METABOLIC PANEL+MG UREA NITROGEN [MASS/VOLUM E] IN SERUM OR PLASMA 35 8 - 26 01/23 H Specimen Type: PLASMA No comment entered. Ordering Provider: AILIN CHESTER Report Released Date/Time: Jan 23, 2023 02:00 PM Reporting Lab: [facility] [address] Performing Lab: [facility] [address] [place] ([facility]) BASIC METABOLIC PANEL+MG GLUCOSE [MASS/VOLUM E] IN SERUM OR PLASMA 239 70 - 100 01/23 H Specimen Type: PLASMA No comment entered. Ordering Provider: AILIN CHESTER Report Released Date/Time: Jan 23, 2023 02:00 PM Reporting Lab: [facility] [address] Performing Lab: [facility] [address] [place] ([facility]) BASIC METABOLIC PANEL+MG SODIUM [MOLES/VOLU ME] IN SERUM OR PLASMA 140 136 - 145 01/23 Specimen Type: PLASMA No comment entered. Ordering Provider: AILIN CHESTER Report Released Date/Time: Jan 23, 2023 02:00 PM Reporting Lab: [address] Performing Lab: [address] [place] [address] ([facility]) BASIC METABOLIC PANEL+MG POTASSIUM [MOLES/VOLU ME] IN SERUM OR PLASMA 5.1 3.5 - 5.1 01/23 Specimen Type: PLASMA No comment entered. Ordering Provider: AILIN CHESTER Report Released Date/Time: Jan 23, 2023 02:00 PM Reporting Lab: [address] Performing Lab: [address] ([place]) BASIC METABOLIC PANEL+MG CHLORIDE [MOLES/VOLU ME] IN SERUM OR PLASMA 109 98 - 107 01/23 H Specimen Type: PLASMA No comment entered. Ordering Provider: AILIN CHESTER Report Released Date/Time: Jan 23, 2023 02:00 PM Reporting Lab: [facility] [address] Performing Lab: [facility] [address] [place] ([facility]) BASIC METABOLIC PANEL+MG CARBON DIOXIDE, TOTAL [MOLES/VOLU ME] IN SERUM OR PLASMA 21 22 - 29 01/23 L Specimen Type: PLASMA No comment entered. Ordering Provider: AILIN CHESTER Report Released Date/Time: Jan 23, 2023 02:00 PM Reporting Lab: [facility] [address] Performing Lab: [facility] [address] [place] ([facility]) BASIC METABOLIC PANEL+MG CALCIUM [MASS/VOLUM E] IN SERUM OR PLASMA 9.4 8.4 - 10.2 01/23 Specimen Type: PLASMA No comment entered. Ordering Provider: AILIN CHESTER Report Released Date/Time: Jan 23, 2023 02:00 PM Reporting Lab: [facility] [address] Performing Lab: [facility] [address] [place] ([facility]) BASIC METABOLIC PANEL+MG MAGNESIUM [MASS/VOLUM E] IN SERUM OR PLASMA 1.7 1.6 - 2.6 01/23 Specimen Type: PLASMA No comment entered. Ordering Provider: AILIN CHESTER Report Released Date/Time: Jan 23, 2023 02:00 PM Reporting Lab: [facility] [address] Performing Lab: [facility] [address] [place] ([facility]) BASIC METABOLIC PANEL+MG ANION GAP IN SERUM OR PLASMA 10 5 - 15 01/23 Specimen Type: PLASMA No comment entered. Ordering Provider: AILIN CHESTER Report Released Date/Time: Jan 23, 2023 02:00 PM Reporting Lab: [facility] [address] Performing Lab: [facility] [address] [place] ([facility]) BASIC METABOLIC PANEL+MG GLOMERULAR FILTRATION RATE/1.73 SQ M.PREDICTED [VOLUME RATE/AREA] IN SERUM, PLASMA OR BLOOD BY CREATININE- BASED FORMULA (CKD-EPI 2020) 61 60 01/23 Specimen Type: PLASMA No comment entered. Ordering Provider: AILIN CHESTER Report Released Date/Time: Jan 23, 2023 02:00 PM Reporting Lab: [facility] [address] Performing Lab: [facility] [address] [place] ([facility]) BNP NATRIURETIC PEPTIDE B [MASS/VOLUM E] IN SERUM OR PLASMA 1549 <99 - 99 01/23 H Specimen Type: PLASMA No comment entered. Ordering Provider: AILIN CHESTER Report Released Date/Time: Jan 23, 2023 02:00 PM Reporting Lab: [facility] [address] Performing Lab: [facility] [address] [place] ([facility]) MICROALBU MIN/CREAT ININE RATIO URINE CREATININE [MASS/VOLUM E] IN URINE 132.8 58.0 - 161.0 11/23 Specimen Type: URINE No comment entered. Ordering Provider: AILIN CHESTER Report Released Date/Time: Nov 23, 2022 11:58 AM Reporting Lab: [facility] [address] Performing Lab: [facility] [address] [place] ([facility]) MICROALBU MIN/CREAT ININE RATIO URINE MICROALBUMI N/CREATININ E [MASS RATIO] IN URINE 28.0 11/23 Specimen Type: URINE No comment entered. Ordering Provider: AILIN CHESTER Report Released Date/Time: Nov 23, 2022 11:58 AM Reporting Lab: [facility] [address] Performing Lab: [place] [phone] [place] ([facility]) MICROALBU MIN/CREAT ININE RATIO URINE MICROALBUMI N [MASS/VOLUM E] IN URINE 37.2 11/23 H Specimen Type: URINE No comment entered. Ordering Provider: AILIN CHESTER Report Released Date/Time: Nov 23, 2022 11:58 AM Reporting Lab: [facility] [address] Performing Lab: [facility] [address] [place] ([facility]) LIPID PANEL,NON -FASTING CHOLESTEROL [MASS/VOLUM E] IN SERUM OR PLASMA 130 11/23 Specimen Type: PLASMA No comment entered. Ordering Provider: AILIN CHESTER Report Released Date/Time: Nov 23, 2022 11:58 AM Reporting Lab: [facility] [address] Performing Lab: [facility] [address] [place] ([facility]) LIPID PANEL,NON -FASTING CHOLESTEROL IN HDL [MASS/VOLUM E] IN SERUM OR PLASMA 39 11/23 L Specimen Type: PLASMA No comment entered. Ordering Provider: AILIN CHESTER Report Released Date/Time: Nov 23, 2022 11:58 AM Reporting Lab: [facility] [address] Performing Lab: [facility] [address] [place] ([facility]) LIPID PANEL,NON -FASTING CHOLESTEROL IN LDL [MASS/VOLUM E] IN SERUM OR PLASMA BY CALCULATION 73 11/23 Specimen Type: PLASMA No comment entered. Ordering Provider: AILIN CHESTER Report Released Date/Time: Nov 23, 2022 11:58 AM Reporting Lab: [facility] [address] Performing Lab: [facility] [address] [place] ([facility]) LIPID PANEL,NON -FASTING CHOLESTEROL IN VLDL [MASS/VOLUM E] IN SERUM OR PLASMA BY CALCULATION 18 11/23 Specimen Type: PLASMA No comment entered. Ordering Provider: AILIN CHESTER Report Released Date/Time: Nov 23, 2022 11:58 AM Reporting Lab: [facility] [address] Performing Lab: [address] [place] [address] ([facility]) LIPID PANEL,NON -FASTING CHOLESTEROL NON HDL [MASS/VOLUM E] IN SERUM OR PLASMA 91 11/23 Specimen Type: PLASMA No comment entered. Ordering Provider: AILIN CHESTER Report Released Date/Time: Nov 23, 2022 11:58 AM Reporting Lab: [address] Performing Lab: [address] ([facility]) LIPID PANEL,NON -FASTING TRIGLYCERID E [MASS/VOLUM E] IN SERUM OR PLASMA 92 11/23 Specimen Type: PLASMA No comment entered. Ordering Provider: AILIN CHESTER Report Released Date/Time: Nov 23, 2022 11:58 AM Reporting Lab: [facility] [address] Performing Lab: [facility] [phone] [place] [address] (CB) CBC LEUKOCYTES [#/VOLUME] IN BLOOD BY AUTOMATED COUNT 10.80 4.0 - 11.0 11/23 Specimen Type: BLOOD No comment entered. Ordering Provider: AILIN CHESTER Report Released Date/Time: Nov 23, 2022 11:58 AM Reporting Lab: [facility] [address] Performing Lab: [address] [place] ([facility]) CBC ERYTHROCYTE S [#/VOLUME] IN BLOOD BY AUTOMATED COUNT 3.87 4.6 - 6.2 11/23 L Specimen Type: BLOOD No comment entered. Ordering Provider: AILIN CHESTER Report Released Date/Time: Nov 23, 2022 11:58 AM Reporting Lab: [facility] [address] Performing Lab: [place] [phone] [place] ([facility]) CBC HEMOGLOBIN [MASS/VOLUM E] IN BLOOD 12.1 13.5 - 17.9 11/23 L Specimen Type: BLOOD No comment entered. Ordering Provider: AILIN CHESTER Report Released Date/Time: Nov 23, 2022 11:58 AM Reporting Lab: [facility] [address] Performing Lab: [facility] [address] [place] ([facility]) CBC HEMATOCRIT [VOLUME FRACTION] OF BLOOD BY AUTOMATED COUNT 37.5 41 - 54 11/23 L Specimen Type: BLOOD No comment entered. Ordering Provider: AILIN CHESTER Report Released Date/Time: Nov 23, 2022 11:58 AM Reporting Lab: [facility] [address] Performing Lab: [address] [place] [address] ([facility]) CBC MCV [ENTITIC VOLUME] BY AUTOMATED COUNT 96.9 80 - 100 11/23 Specimen Type: BLOOD No comment entered. Ordering Provider: AILIN CHESTER Report Released Date/Time: Nov 23, 2022 11:58 AM Reporting Lab: [facility] [address] Performing Lab: [facility] [address] [place] ([facility]) CBC MCH [ENTITIC MASS] BY AUTOMATED COUNT 31.3 27 - 33 11/23 Specimen Type: BLOOD No comment entered. Ordering Provider: AILIN CHESTER Report Released Date/Time: Nov 23, 2022 11:58 AM Reporting Lab: [facility] [address] Performing Lab: [facility] [address] [place] ([facility]) CBC MCHC [MASS/VOLUM E] BY AUTOMATED COUNT 32.3 32.0 - 37.5 11/23 Specimen Type: BLOOD No comment entered. Ordering Provider: AILIN CHESTER Report Released Date/Time: Nov 23, 2022 11:58 AM Reporting Lab: [facility] [address] Performing Lab: [facility] [address] [place] ([facility]) CBC PLATELETS [#/VOLUME] IN BLOOD BY AUTOMATED COUNT 293 150 - 400 11/23 Specimen Type: BLOOD No comment entered. Ordering Provider: AILIN CHESTER Report Released Date/Time: Nov 23, 2022 11:58 AM Reporting Lab: [facility] [address] Performing Lab: [address] ([facility]) CBC PLATELET MEAN VOLUME [ENTITIC VOLUME] IN BLOOD BY AUTOMATED COUNT 10.3 7.4 - 10.4 11/23 Specimen Type: BLOOD No comment entered. Ordering Provider: AILIN CHESTER Report Released Date/Time: Nov 23, 2022 11:58 AM Reporting Lab: [facility] [address] Performing Lab: [place] [id number] [place] ([facility]) CBC ERYTHROCYTE DISTRIBUTIO N WIDTH [RATIO] BY AUTOMATED COUNT 13.2 11.5 - 14.5 11/23 Specimen Type: BLOOD No comment entered. Ordering Provider: AILIN CHESTER Report Released Date/Time: Nov 23, 2022 11:58 AM Reporting Lab: [facility] [address] Performing Lab: [address] [place] ([facility]) TSH W/REFLEX TO FREE T4 THYROTROPIN [UNITS/VOLU ME] IN SERUM OR PLASMA 4.59 0.35 - 4.94 11/23 Specimen Type: PLASMA No comment entered. Ordering Provider: AILIN CHESTER Report Released Date/Time: Nov 23, 2022 11:58 AM Reporting Lab: [facility] [address] Performing Lab: [facility] [address] [place] ([facility]) COMPREHEN SIVE METABOLIC PANEL+MG CREATININE [MASS/VOLUM E] IN SERUM OR PLASMA 1.2 0.7 - 1.2 11/23 Specimen Type: PLASMA No comment entered. Ordering Provider: AILIN CHESTER Report Released Date/Time: Nov 23, 2022 11:58 AM Reporting Lab: [facility] [address] Performing Lab: [address] ([facility]) COMPREHEN SIVE METABOLIC PANEL+MG UREA NITROGEN [MASS/VOLUM E] IN SERUM OR PLASMA 34 8 - 26 11/23 H Specimen Type: PLASMA No comment entered. Ordering Provider: AILIN CHESTER Report Released Date/Time: Nov 23, 2022 11:58 AM Reporting Lab: [facility] [address] Performing Lab: [facility] [address] [place] ([facility]) COMPREHEN SIVE METABOLIC PANEL+MG GLUCOSE [MASS/VOLUM E] IN SERUM OR PLASMA 54 70 - 100 11/23 L Specimen Type: PLASMA No comment entered. Ordering Provider: AILIN CHESTER Report Released Date/Time: Nov 23, 2022 11:58 AM Reporting Lab: [facility] [address] Performing Lab: [facility] [address] [place] ([facility]) COMPREHEN SIVE METABOLIC PANEL+MG SODIUM [MOLES/VOLU ME] IN SERUM OR PLASMA 143 136 - 145 11/23 Specimen Type: PLASMA No comment entered. Ordering Provider: AILIN CHESTER Report Released Date/Time: Nov 23, 2022 11:58 AM Reporting Lab: [facility] [address] Performing Lab: [facility] [address] [place] ([facility]) COMPREHEN SIVE METABOLIC PANEL+MG POTASSIUM [MOLES/VOLU ME] IN SERUM OR PLASMA 4.4 3.5 - 5.1 11/23 Specimen Type: PLASMA No comment entered. Ordering Provider: AILIN CHESTER Report Released Date/Time: Nov 23, 2022 11:58 AM Reporting Lab: [facility] [address] Performing Lab: [facility] [address] [place] ([facility]) COMPREHEN SIVE METABOLIC PANEL+MG CHLORIDE [MOLES/VOLU ME] IN SERUM OR PLASMA 107 98 - 107 11/23 Specimen Type: PLASMA No comment entered. Ordering Provider: AILIN CHESTER Report Released Date/Time: Nov 23, 2022 11:58 AM Reporting Lab: [facility] [address] Performing Lab: [facility] [address] [place] ([facility]) COMPREHEN SIVE METABOLIC PANEL+MG CARBON DIOXIDE, TOTAL [MOLES/VOLU ME] IN SERUM OR PLASMA 23 22 - 29 11/23 Specimen Type: PLASMA No comment entered. Ordering Provider: AILIN CHESTER Report Released Date/Time: Nov 23, 2022 11:58 AM Reporting Lab: [facility] [address] Performing Lab: [facility] [address] [place] ([facility]) COMPREHEN SIVE METABOLIC PANEL+MG CALCIUM [MASS/VOLUM E] IN SERUM OR PLASMA 9.7 8.4 - 10.2 11/23 Specimen Type: PLASMA No comment entered. Ordering Provider: AILIN CHESTER Report Released Date/Time: Nov 23, 2022 11:58 AM Reporting Lab: [address] Performing Lab: [address] [place] ([facility]) COMPREHEN SIVE METABOLIC PANEL+MG PROTEIN [MASS/VOLUM E] IN SERUM OR PLASMA 7.2 6.0 - 8.3 11/23 Specimen Type: PLASMA No comment entered. Ordering Provider: AILIN CHESTER Report Released Date/Time: Nov 23, 2022 11:58 AM Reporting Lab: [facility] [address] Performing Lab: [place] [phone] [place] ([facility]) COMPREHEN SIVE METABOLIC PANEL+MG ALBUMIN [MASS/VOLUM E] IN SERUM OR PLASMA 4.1 3.5 - 5.2 11/23 Specimen Type: PLASMA No comment entered. Ordering Provider: AILIN CHESTER Report Released Date/Time: Nov 23, 2022 11:58 AM Reporting Lab: [facility] [address] Performing Lab: [facility] [address] [place] ([facility]) COMPREHEN SIVE METABOLIC PANEL+MG BILIRUBIN.T OTAL [MASS/VOLUM E] IN SERUM OR PLASMA 0.5 0.2 - 1.2 11/23 Specimen Type: PLASMA No comment entered. Ordering Provider: AILIN CHESTER Report Released Date/Time: Nov 23, 2022 11:58 AM Reporting Lab: [facility] [address] Performing Lab: [facility] [address] [place] ([facility]) COMPREHEN SIVE METABOLIC PANEL+MG MAGNESIUM [MASS/VOLUM E] IN SERUM OR PLASMA 1.4 1.6 - 2.6 11/23 L Specimen Type: PLASMA No comment entered. Ordering Provider: AILIN CHESTER Report Released Date/Time: Nov 23, 2022 11:58 AM Reporting Lab: [address] Performing Lab: [address] ([facility]) COMPREHEN SIVE METABOLIC PANEL+MG ANION GAP IN SERUM OR PLASMA 13 5 - 15 11/23 Specimen Type: PLASMA No comment entered. Ordering Provider: AILIN CHESTER Report Released Date/Time: Nov 23, 2022 11:58 AM Reporting Lab: [place] [id number] Performing Lab: [address] ([facility]) COMPREHEN SIVE METABOLIC PANEL+MG ALKALINE PHOSPHATASE [ENZYMATIC ACTIVITY/VO LUME] IN SERUM OR PLASMA 87 40 - 150 11/23 Specimen Type: PLASMA No comment entered. Ordering Provider: AILIN CHESTER Report Released Date/Time: Nov 23, 2022 11:58 AM Reporting Lab: [facility] [address] Performing Lab: [facility] [address] [place] ([facility]) COMPREHEN SIVE METABOLIC PANEL+MG ALANINE AMINOTRANSF ERASE [ENZYMATIC ACTIVITY/VO LUME] IN SERUM OR PLASMA 28 11/23 Specimen Type: PLASMA No comment entered. Ordering Provider: AILIN CHESTER Report Released Date/Time: Nov 23, 2022 11:58 AM Reporting Lab: [facility] [address] Performing Lab: [facility] [phone] [place] [address] ([facility]) COMPREHEN SIVE METABOLIC PANEL+MG ASPARTATE AMINOTRANSF ERASE [ENZYMATIC ACTIVITY/VO LUME] IN SERUM OR PLASMA 33 11/23 Specimen Type: PLASMA No comment entered. Ordering Provider: AILIN CHESTER Report Released Date/Time: Nov 23, 2022 11:58 AM Reporting Lab: [facility] [address] Performing Lab: [facility] [address] [place] ([facility]) COMPREHEN SIVE METABOLIC PANEL+MG GLOMERULAR FILTRATION RATE/1.73 SQ M.PREDICTED [VOLUME RATE/AREA] IN SERUM, PLASMA OR BLOOD BY CREATININE- BASED FORMULA (CKD-EPI 2020) 61 11/23 Specimen Type: PLASMA No comment entered. Ordering Provider: AILIN CHESTER Report Released Date/Time: Nov 23, 2022 11:58 AM Reporting Lab: [facility] [address] Performing Lab: [facility] [address] [place] ([facility]) HEMOGLOBI N A1C HEMOGLOBIN A1C/HEMOGLO BIN.TOTAL IN [...] Nov 23, 2022 11:58 AM Reporting Lab: [facility] [address] Performing Lab: [facility] [address] [place] ([facility]) Vital Signs Combined list of inpatient and [...] DC Date Status Disposition Source [place] [facility] Outpatient Encounter [id number] 03/29 QASIM SCHULZ [facility] [place] [facility] Out[place] Encounter [id number] 04/05 QASIM SCHULZ [facility] [place] [facility] Outpatient Encounter [id number] 07/31 [place] [facility] [place] [facility] Out[place] Encounter [id number] 08/21 [place] [facility] [place] [facility] Outpatient Encounter [id number] 09/20 [place] [facility] Outpatient [facility]counter [id number] [id number] 11/11 [facility] [place] [facility] Outpatient Encounter [id number] [facility] P[facility] [place] [facility] [place] [facility] Encounter [id number] [facility] [place] [facility] O/P EST MOD 30-39 MIN [id number] Diagnos is: ICD-10- CM Z00.00 Encntr for general adult medical exam w/o abnorma l finding s
CANDELARIO CHESTER DA K 11/23 [place] ([facility]) [place] ([facility]) GAIT TRAINING THERAPY [id number] Diagnos is: ICD-10- CM R26.89 Other abnorma lities of gait and mobilit y
OMAYRA JAMESON NTER V 11/23 [place] ([facility]) [place] [facility] Outpatient Encounter [id number] SA JAMARI JAMESON R 12/11 [place] [facility] [place] [facility] [place] Encounter [id number] 12/25 [place] [facility] [place] [facility] Out[place] Encounter [id number] SA JAMARI JAMESON R 12/28 [place] [facility] [place] [facility] [place] Encounter [id number] 01/05 [place] [facility] [place] [facility] Outpatient Encounter [id number] 01/11 [place] [facility] [place] [facility] Out[place] Encounter [id number] 01/16 [place] [facility] OFFICE O/P EST HI 40-54 MIN [id number] Diagnos is: ICD-10- CM I50.9 Heart failure , unspeci fied
CANDELARIO CHESTER 01/23 [facility] [place] [facility] Out[place] Encounter [id number] Marcus POTTS I 01/24 [place] [facility] [place] [facility] Out[place] Encounter [id number] Danica TORRE 02/05 [place] [facility] [place] [facility] Out[place] Encounter [id number] 02/09 [place] [facility] [place] [facility] [place] Encounter [id number] Danica TORRE 02/09 [place] [facility] [place] [facility] Out[place] Encounter [id number] 02/14 [place] [facility] [place] [facility] Out[place] Encounter [id number] 02/15 [place] [facility] [place] [facility] [place] Encounter [id number] 02/19 [place] [facility] [place] [facility] [place] [facility]counter [id number] 02/20 [place] [facility] [place] [facility] [place] [facility]counter [id number] 02/20 [place] [facility] [place] [facility] Outpatient Encounter [id number] 02/20 [place] [facility] [place] [facility] Outpatient Encounter [id number] 02/20 [place] [facility] [place] [facility] Outpatient Encounter [id number] 02/21 [place] [facility] [place] [facility] QNHP OL DIG ASSMT&MGMT 5-10 [id number] Diagnos is: ICD-10- CM E11.9 Type 2 diabete s mellitu s without complic ations< br/> HARDER,SIVA LY 02/22 [place] [facility] PRO PHONE CALL 11-20 MIN [id number] [phone] Diagnos is: ICD-10- CM I50.9 Heart failure , unspeci fied
HENRICH,BR ANDON M 02/23 [facility] ([facility] [place] [facility] Outpatient Encounter [id number] 02/26 [place] [facility] [place] [facility] Outpatient Encounter [id number] 03/01 [place] [facility] [place] [facility] Outpatient Encounter [id number] SA TRINO RA R 03/09 [place] [facility] [place] [facility] Outpatient Encounter [id number] 03/14 [place] [facility] [place] [facility] Outpatient Encounter [id number] SA TRINO RA R 04/12 [place] [facility] [place] [facility] Outpatient Encounter [id number] SA TRINO RA R 04/16 [place] [facility] [place] [facility] Outpatient Encounter [id number] TRINO RA R 05/01 [place] [facility] [place] [facility] Outpatient Encounter [id number] 07/11 [place] [facility] [place] [facility] Outpatient Encounter [id number] [place] [facility] [place] [facility] Outpatient Encounter [id number] 07/12 [facility] [place] [facility] HC PRO PHONE CALL 5-10 MIN [id number] Diagnos is: ICD-10- CM 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
VIV [place] Thanh Frey 07/19 [facility] [place] [facility] HEARING AID REPAIR/MOD IFYING [id number] Diagnos is: ICD-10- CM 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
CARY CORCORAN 08/09 [facility] Social History Combined list of available smoking, tobacco, and other social history from Department of Defense and Veterans Affairs facilities. Social History Type Response Date Comment [facility] e Tobacco smoking status NHIS VA-TOBACCO FORMER USER 11/23/2022 [facility] ([facility] History of tobacco use [place]-TOBACCO QUIT 1 5 YRS OR MORE 11/23/2022 [facility] ([facility]) History of tobacco use VA-TOBACCO FORMER USER 11/29/2021 [facility] ([facility] History of tobacco use VA-TOBACCO FORMER USER 10/21/2020 [facility] ([facility]) Plan of Care List of future care activities from Department of Veterans Affairs facilities. Additional future care activities may be listed in the Assessment and Plan section. Date/Time Care Activity Care Activity Detail Facili ty 09/18/2023 AMBULATORY - SURGERY AMBULATORY - SURGERY [facility]
--- OUTSIDE RECORDS SUMMARY | 2023-09-12 09:09 | XMS_ITS ---
Author Name Unknown Organization [facility] Address [address] [place] [address] Care Team Providers Care Student Services Director Name Role Phone Unavailable Unavailable Unavailable Surgery Details Not on file Complications Check Surgery Details section. Procedure Estimated Blood Loss Check Surgery Details section. Procedure Findings Check Surgery Details section. Procedure Specimens Taken Check Surgery Details section.
--- OUTSIDE RECORDS SUMMARY | 2023-09-12 09:09 | XMS_ITS | Encounter Summary ---
Author Name Unknown Organization [facility] Address [address] [place] [address] Care Team Providers Care Carpenter Streetcar Name Role Phone Natalio Motta APRN C.N.PCarito, M.S.N. Primary C are Provider Reason for Visit * Appointment Request (Routine) - Closed Specialty Diagnoses / Procedures Referred By Edin salmeron Referred To Contact [facility] Facility Referral ID Status Reason Start Date Expiration Date Visits Re quested Visits Authorized [id number] Closed 06/05/2023 06/04/2024 1 1 Encounter Details Date Type Department Care Team (Latest Contact Info) Description 06/05/2023 3:00 PM SERVICE DELIVERY ANALYST External Outreach Senior Services in [facility] [address] [place] [phone] Natalio Motta APRN C.N.P., M.S.N. [address] [place] [address] Hypothyroidism (Primary Dx); Weakness General; Amputation Toe [...] Comments Blood Pressure 120/70 06/05/2023 4:30 PM SERVICE DELIVERY ANALYST Pulse 81 06/05/2023 4:30 PM SERVICE DELIVERY ANALYST Temperature 36.3 ??C (97.4 ??F) 06/05/2023 4:30 PM CS T Respiratory Rate 18 06/05/2023 4:30 PM SERVICE DELIVERY ANALYST Oxygen Saturation 100% 06/05/2023 4:30 PM SERVICE DELIVERY ANALYST Inhaled Oxygen Concentration - - Weight 76.6 kg (168 lb 12.8 oz) 06/05/2023 4:30 PM SERVICE DELIVERY ANALYST Height - - Body Mass Index 24.93 04/12/2023 3:21 PM SERVICE DELIVERY ANALYST documented in this encounter Progress Notes * Natalio Motta, RAYNA, C.N.P., M.S.N. - 06/05/2023 3:00 PM CST CHIEF COMPLAINT / REASON FOR VISIT [facility] Acute Visit Visit Type: In Person: Face to Face SUBJECTIVE Today's narrative history (obtained from Patient and Nursing): HISTORY OF PRESENT ILLNESS Darek Bowers is a 83 y.o. male resident at [facility]. 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 care program resident confirmed levothyroxine is given every morning (6am) without other medications. Therefore, we will increase levothyroxine 50mcg [id number] and rechecked TSH in 6 weeks. Nursing instructed to continue monitoring for symptoms of hypothyroidism and contact [facility] provider if any concerns. Orders: - S-TSH [...] family, and/or facility staff. Totaltime 20 minutes. ICE DELIVERY ANALYST documented in this encounter Miscellaneous Notes * Assessment & Plan Note - Natalio Motta APRN C.N.P., M.S.N. - 06/05/2023 9:26 PM CSTAssociated Problem(s): Weakness General Denied weakness. We will continue therapy. ICE DELIVERY ANALYST * Assessment & Plan Note - Natalio Motta APRN, C.N.P., M.S.N. - 06/05/2023 9:25 PM CSTAssociated Problem(s): Hypothyroidism TSH value improved compared to prior value of 16.0 a month ago. Resident /nursing denied symptoms of hypothyroidism. Last T4 was 0.92 in April 2023. care program resident confirmed levothyroxine is given every morning (6am) without other medications. Therefore, we will increase levothyroxine 50mcg [id number] and rechecked TSH in 6 weeks. Nursing instructed to continue monitoring for symptoms of hypothyroidism and contact [facility] provider if any concerns. 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 [phone] PCP - General Internal Medicine 04/10/23 08/27/23 documented as of this encounter
--- OUTSIDE RECORDS SUMMARY | 2023-09-12 09:09 | XMS_ITS | Encounter Summary ---
Author Name Unknown Organization [facility] Address [address] [place] [address] Care Team Providers Care Buttermilk Drier Operator Name Role Phone SantosumJessica ramírezNataliotashi Mishra APRN, C.N.P., M.S.N. Primary C are Provider Reason for Visit * Appointment Request (Routine) - Closed Specialty Diagnoses / Procedures Referred By Edin mishra Referred To Contact [facility] Facility Referral ID Status Reason Start Date Expiration Date Visits Re quested Visits Authorized [id number] Closed 06/13/2023 06/12/2024 1 1 Encounter Details Date Type Department Care Team (Latest Contact Info) Description 06/14/2023 10:00 AM FAMILY PRACTITIONER External Outreach Senior Services in [facility] [address] [phone] Hannah Castillo APRN, C.N.P. [address] [place] [address] [place] [phone] Pressure Injury (Ulcer) Of Left Heel Stage [...] Comments Blood Pressure 123/68 06/14/2023 9:54 AM FAMILY PRACTITIONER Pulse 68 06/14/2023 9:54 AM FAMILY PRACTITIONER Temperature 36.2 ??C (97.1 ??F) 06/14/2023 9:54 AM CS T Respiratory Rate 18 06/14/2023 9:54 AM FAMILY PRACTITIONER Oxygen Saturation - - Inhaled Oxygen Concentration - - Weight 77.4 kg (170 lb 9.6 oz) 06/14/2023 9:54 A M FAMILY PRACTITIONER Height - - Body Mass Index 25.19 04/12/2023 3:21 PM FAMILY PRACTITIONER documented in this encounter Patient Instructions * Patient Instructions* Hannah Castillo APRN, C.N.P. - 06/14/2023 10:00 AM FAMILY PRACTITIONER ORDERS and INSTRUCTIONS: Heel wound 1: Gently cleanse area with NS. Pat dry. 2. Skin prep to gonsalo-wound. 3. Santyl to wound bed only. 4. Place gauze over wound. 5. cover with island dressing. 6. Change dressing daily. Right stump wound Cleanse daily and apply a thin layer of silverstat and gauze. Electronically signed by: Hannah Castillo APRN, C.N.P. 06/15/23 4:20 PM FAMILY PRACTITIONER LY PRACTITIONER documented in this encounter Progress Notes * Hannah Castillo APRN, C.N.P. - 06/14/2023 10:00 AM CST CHIEF COMPLAINT / REASON FOR VISIT [facility] Follow Up Visit Visit Type: In [...] Heel: Area continues to improve. Wound measures [id number]. Edges well defined, attached and 100% re-epithelialized [...] orders to facility. Total time 30 minutes. LY PRACTITIONER documented in this encounter Miscellaneous Notes * Assessment & Plan Note - Hannah Castillo APRN, C.N.P. - 06/15/2023 4:18 PM CSTAssociated Problem(s): Other Complications Of Amputation Stump (HCC) The wound bed is clean. A thin layer of silver stat will be applied with a gauze. Change daily. LY PRACTITIONER * Assessment & Plan Note - Hannah [...] with home nursing for wound care . 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 [address] [place] [phone] PCP - General Internal Medicine 04/10/23 08/27/23 documented as of this encounter
--- OUTSIDE RECORDS SUMMARY | 2023-09-12 09:09 | XMS_ITS | Encounter Summary ---
Author Name Unknown Organization [facility] Address [address] [place] [address] Care Team Providers Care Concrete Mixer Truck Driver Name Role Phone Santosumdarrell Natalio Mishra APRN, C.N.P., M.S.N. Primary C are Provider Reason for Visit * Appointment Request (Routine) - Closed Specialty Diagnoses / Procedures Referred By Edin mishra Referred To Contact Long-Term Facility Referral ID Status Reason Start Date Expiration Date Visits Re quested Visits Authorized [id number] Closed 05/23/2023 05/22/2024 1 1 Encounter Details Date Type Department Care Team (Latest Contact Info) Description 05/24/2023 3:00 PM COPYIST External Outreach Senior Services in [facility] [address], [place] [phone] Hannah Castillo APRN, C.N.P. [address] [place] [address] [place] [phone] 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) (Primary Dx); Amputation Toe Status Post Left (HCC); Wound Ankle Open Subsequent Left; Advanced Care Planning; [facility] Use Of Insulin Active (HCC); Hypothyroidism; Congestive [...] Comments Blood Pressure 107/66 06/18/2023 1:10 PM COPYIST Pulse 78 06/18/2023 1:10 PM COPYIST Temperature 36.6 ??C (97.8 ??F) 06/18/2023 1:10 PM CS T Respiratory Rate 16 06/18/2023 1:10 PM COPYIST Oxygen Saturation 95% 06/18/2023 1:10 PM COPYIST Inhaled Oxygen Concentration - - Weight 75.8 kg (167 lb) 06/18/2023 1:10 PM COPYIST Height - - Body Mass Index 24.66 04/12/2023 3:21 PM COPYIST documented in this encounter Patient Instructions * Patient Instructions* Hannah Castillo APRN, C.N.P. - 05/24/2023 3:00 PM COPYIST ORDERS and INSTRUCTIONS: Face to face Discharge [...] wheelchair DME Medical Justification: Manual wheelchair A inwo-am-skeu encounter was conducted on 05/24/23 by Hannah [...] 25 mcg tabs until [facility] the penitentiary Electronically signed by: Hannah Castillo APRN, C.N.PCarito 05/24/23 6:17 PM COPYIST IST documented in this encounter H&P Notes * Hannah Castillo APRN, C.N.Dell. - 05/24/2023 3:00 PM CST CHIEF COMPLAINT / REASON FOR VISIT [facility] Discharge Visit Visit Type: In Person: Face to Face SUBJECTIVE HISTORY OF PRESENT ILLNESS Discharge visit updated 06/18/23 with face to face visit on 06/18/23 Today's narrative history (obtained from Patient, Nursing, and PT/OT): From record: Rosalina was admitted to [facility] on 04/30 with abdominal pain found secondary to constipation. He had acute kidney injury and was hydrated and furosemide was held with dosage decreased. He also had urine infection and was treated with IV antibiotics. He returned to [facility] on 05/03 to continue therapies. He [...] Care Planning Overview: Full code status #5 [facility] Use Of Insulin Active ([facility]) Overview: On insulin glargine and aspart started during hospitalization December 2022. #6 Hypothyroidism Overview: Component Ref Range & Units 1 mo ago 04/24/23 1 mo ago 04/13/23 2 mo ago 03/11/23 EXT TSH, Sensitive, S 0.27 - 4.20 uIU/mL 16.80 18.20 11.70 #7 Congestive Heart Failure ([facility]) Overview: EF: ECHO with EF [...] Diabetes Mellitus Type 2 With Diabetic Polyneuropathy ([facility]) Overview: Lab Results Component Value [...] nursing note reviewed. Exam conducted with a coal sample tester present. Constitutional Appearance: Normal appearance. HENT Head: [...] standard wheelchair Mr. Woods was admitted to [facility] April 10 following BK right lower extremity. [...] site #2 Amputation Toe Status Post Left ([facility]) Assessment & Plan: Stable #3 Wound Ankle Open Subsequent Left Assessment & Plan: Stable #4 Advanced Care Planning Assessment & Plan: He will be full code #5 [facility] Use Of Insulin Active ([facility]) Assessment & Plan: Nurse reports he is nonadherent to his diabetic diet. He is also on a sliding scale. #6 Hypothyroidism Assessment & Plan: Increase levothyroxine to 50 mcg daily. [facility] may give two 25 mcg tablets to equal 50 mcg. He will be discharging in a week #7 Congestive Heart Failure ([facility]) Assessment & Plan: Stable on current meds #8 Atrial Fibrillation Other Persistent ([facility]) Assessment & Plan: senior care anticoagulation on apixaban #9 Dementia ([facility]) Assessment & Plan: He has low hearing which could contribute to him not understanding #10 Diabetes Mellitus Type 2 With Diabetic Polyneuropathy ([facility]) Assessment & Plan: Insulin dependent not always compliant with diet. Glargine will be increased to 17 units. #11 Hyperglycemia Assessment & Plan: A1C 7.2 He will follow up with his PCP in [place] #12 Hyperkalemia #13 Hyperlipidemia Assessment & Plan: Stay on statin #14 Weakness General Assessment & Plan: He is getting stronger with therapy. He will continue therapy when he gets his prosthesis. He will have a wheelchair upon discharge. #15 Peripheral Vascular Disease ([facility]) Assessment & Plan: Monotor Other [...] were ordered. Follow up with PCP in [place] and [facility] as scheduled. PATIENT EDUCATION Ready [...] orders to facility. Total time 45 minutes. IST documented in this encounter Miscellaneous Notes * Assessment & Plan Note - Hannah Castillo APRN, C.N.P. - 05/24/2023 6:08 PM CSTAssociated Problem(s): Peripheral Vascular Disease (HCC) Monotor IST * Assessment & Plan Note - Hannah Castillo APRN, C.N.P. - 05/24/2023 6:05 PM CSTAssociated Problem(s): Weakness General He is getting stronger with therapy. He will continue therapy when he gets his prosthesis. He will have a wheelchair upon discharge. IST * Assessment & Plan Note - Hannah Castillo APRN, C.N.P. - 05/24/2023 6:01 PM CSTAssociated Problem(s): Hyperlipidemia Stay on statin IST * Assessment & Plan Note - Hannah Castillo APRN, C.N.P. - 05/24/2023 6:00 PM CSTAssociated Problem(s): Hyperglycemia A1C 7.2 He will follow up with his PCP in [place] IST * Assessment & Plan Note - Hannah Castillo APRN, C.N.P. 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 Glargine will be increased to 17 units. IST * Assessment & Plan Note - Hannah Castillo APRN, C.N.P. - 05/24/2023 5:57 PM CSTAssociated Problem(s): Dementia (HCC) He has low hearing which could contribute to him not understanding IST * Assessment & Plan Note - Hannah Castillo APRN, C.N.P. - 05/24/2023 5:53 PM CSTAssociated Problem(s): Atrial Fibrillation Other Persistent (HCC) senior care anticoagulation on apixaban IST * Assessment & Plan Note - Hannah Castillo APRN, C.N.P. - 05/24/2023 5:52 PM CSTAssociated Problem(s): Congestive Heart Failure (HCC) Stable on current meds IST * Assessment & Plan Note - Hannah Castillo APRN C.N.P. - 05/24/2023 5:24 PM CSTAssociated Problem(s): Hypothyroidism Increase levothyroxine to 50 mcg daily. [facility] may give two 25 mcg tablets to equal 50 mcg. He will be discharging in a week IST * Assessment & Plan Note - Hannah Castillo APRN, C.N.P. - 05/24/2023 5:20 PM CSTAssociated Problem(s): [facility] Use Of Insulin Active (HCC) Nurse reports he is nonadherent to his diabetic diet. He is also on a sliding scale. IST * Assessment & Plan Note - Hannah Castillo APRN, C.N.P. - 05/24/2023 5:19 PM CSTAssociated Problem(s): Amputation Toe Status Post Left (HCC) Stable IST * Assessment & Plan Note - Hannah Castillo APRN, C.N.P. 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 He will need a standard wheelchair Mr. Woods was admitted to [facility] April 10 following BK right lower extremity. [...] continue to provide support to amputation site IST * Assessment & Plan Note - Hannah Castillo APRN, C.N.P. - 05/24/2023 5:15 PM CSTAssociated Problem(s): Advanced Care Planning He will be full code IST * Assessment & Plan Note - Hannah Castillo APRN, C.N.P. - 05/24/2023 5:14 PM CSTAssociated Problem(s): Wound Ankle Open Subsequent Left (Resolved 05/24/2023) Stable IST * ACP (Advance Care Planning) - Hannah Castillo APRN, C.N.P. - 05/24/2023 3:00 PM CST Advance Care Planning Reason for Conversation This patient is a 83 y.o. year old male that presents for Discharge penitentiary visit. 1. Patient has understanding of conditions: [...] were also present during the discussion: Other: [facility] staff Other Comments: He is DNR/DNI IST documented in this encounter Plan of Treatment Not on file documented as of this encounter Visit Diagnoses Diagnosis 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)- Primary Amputation Toe Status Post Left (HCC) Wound Ankle Open Subsequent Left Advanced Care Planning Financing Analyst Use Of Insulin Active (HCC) Hypothyroidism Congestive Heart Failure (HCC) Atrial Fibrillation Other Persistent (HCC) Dementia (HCC) Diabetes Mellitus Type 2 With Diabetic Polyneuropathy (HCC) Hyperglycemia Hyperkalemia Hyperlipidemia Weakness General Peripheral Vascular Disease (HCC) documented in this encounter Care Teams Concrete Mixer Truck Driver Relationship Specialty Start Date End Date Natalio Motta APRN, C.N.P., M.S.N. [address] [place] [phone] PCP - General Internal Medicine 04/10/23 08/27/23 documented as of this encounter
--- OUTSIDE RECORDS SUMMARY | 2023-09-12 09:09 | XMS_ITS | Clinical Summary ---
Author Name Unknown Organization [facility] Address [place], [place] [address] Care Team Providers Care Fund Controller Name Role Phone VotelMelquiades MD Primary Care Provider + Nurses, Advanced Heart Failure Unavailable + Shade Manuel MD Unavailable [phone] Allergies No known active allergies Medications Medication Sig Dispensed Refills Start Date End Date Status blood-glucose meterIndications:T ype 2 diabetes mellitus with complication (HC) Ascensia Glucometer, Dispense meter, test strips, lancets covered by pt ins. Test 3 times daily 1 Device 07/09/2020 Active Insulin Vilonia, Disposable, (Novofine 32) 32 gauge x 1/4Indications:25 [...] mg sublingual tabletIndications: Coronary artery disease involving [place] heart without angina pectoris, unspecified vessel or [...] after d/c from 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 11/25/2019 HTN (hypertension) 10/28/2015 Hyperlipidemia LDL goal <70 10/28/2015 Adenomatous colon polyp 04/13/2015 Overview: Colonoscopy 04/2015 polyps repeat in 5 years Colonoscopy 03/2020 polyps, repeat in 5 years Background diabetic retinopathy(362.01) 07/10/19 08 Unspecified hearing loss 07/10/2007 Coronary atherosclerosis of unspecified type of vessel, [place] or graft Overview: 4 vessel CABG 2001 Lexiscan only for cardiac evaluation - no treadmill Other ill-defined and unknow n causes of morbidity and mortality Impotence of organic origin Resolved Problems Problem Noted Date Diagnosed Date Resolved Date Type 2 diabetes mellitus with complication 11/16/2017 12/22/2022 Heart disease, unspecified 0 07/10/2007 Encounters Date Type Department Care Team Description 09/10/2023 12:53 PM CDT - 09/10/2023 11:59 PM CDT Hospital Encounter [facility] ? [facility] [address] [place] [address] VoteMelquiades lewis MD Tonsfeldt, Isabelle, PT 09/10/2023 Travel 09/06/2023 9:27 AM CDT - 09/06/2023 11:59 PM CDT Hospital En[facility] ? [facility] [address], [place] [address] GunnarteMelquiades lewis MD Tonsfeldt, Isabelle, PT 09/06/2023 Travel 08/31/2023 Telephone [facility] [address] [place] [address] GunnarteMelquiades lewis MD ORDERS 08/23/2023 12:46 PM CDT - 08/23/2023 11:59 PM CDT Hospital Encounter [facility] ? [facility] [address] [place] [address] Melquiades Man MD Tonsfeldt, Isabelle, PT History of leg amputation (HC) 08/23/2023 Travel 08/17/2023 Telephone [facility] [address] [place] [address] Melquiades Man MD Home Care ([facility]) 08/08/2023 Telephone [facility] [address] [place] [address] Melquiades Man MD 08/01/2023 Orders Only [facility] Scanner 1 scan: (1-Ord) [facility], 08/01/2023 07/31/2023 Telephone [facility] [address] [place] [address] Melquiades Man MD 07/27/2023 11:30 AM CDT Office Visit [address] [place] [address] Shade Manuel MD CV Heart Failure Est (6 mo f/u, discuss recent med changes. ) 07/27/2023 10:45 AM CDT Orders Only [address] [place] [address] Lab 07/27/2023 Travel 07/24/2023 Telephone [facility] [address] [place] [address] Melquiades Man MD 07/24/2023 Refill [facility] [address] [place] [address] Melquiades Man MD Refill Request (Fiasp Flextouch Pen Inj 3ml ) 07/20/2023 1:00 PM SWING MANAGER Telemedicine [facility] [address] [place] [address] Santana Nails MD Wound Check 07/20/2023 Refill [facility] [address] [place] [address] Melquiades Man MD Refill Request; NOVOLOG FLEXPEN 07/20/2023 Telephone [facility] [address] [place] [address] Ezequiel Nye, AuD Hearing Aid 07/19/2023 Telephone [facility] [address] [place] [address] Melquiades Man MD 07/18/2023 Refill [facility] [address] [place] [address] Melquiades Man MD Refill Request (Basaglar 100 U/ML Kwikpen INJ 3ml) 07/17/2023 2:05 PM SWING MANAGER Office Visit [address] [address] Melquiades Man MD Medication Management; Follow Up (Discharged from senior care 06/20/23, left foot wound developed while at the senior care) 07/17/[address] [address] Melquiades Man MD Refill Request (insulin) 07/17/2023 Travel 07/17/[address] [address] Melquiades Man MD Form 07/12/[address] [address] Melquiades Man MD 07/11/[address] [address] Ezequiel Nye, [facility] (AUTHORIZATION) 07/10/[address] [address] Melquiades Man MD 07/05/[address] [address] Melquiades Man MD Home Care 07/03/[address] [address] Melquiades Man MD Follow Up (orders) 07/02/2023 Telephone [facility] [address] [place] [address] Santana Nails MD Appointment 07/02/2023 Telephone [facility] [address] [place] [address] Ezequiel Nye, Isidro Referral 07/01/2023 Telephone [facility] [address] [place] [address] Kimberly Hurtado MD 07/01/2023 Nurse Triage [facility] [address] [place] [address] Votel, Melquiades Gray MD High Blood Sugar 06/28/2023 Telephone [facility] [address] [place] [address] Votedebbie, Melquiades Gray MD 06/25/2023 Telephone [facility] [address] [place] [address] Votedebbie, Melquiades Gray MD ACC Order Request 06/22/2023 Telephone [facility] [address] [place] [address] Magda, Melquiades Gray MD Outside Order 06/21/2023 Telephone [facility] [address] [place] [address] Ezequiel Nye, AuD Form (Referral for services form ( [facility] )) from Last 3 Months Immunizations Name Administration Dates Next Due COVID-19 vaccine (Moderna 100mcg/0.5mL) PF, MDV 03/09/2021 COVID-19 vaccine (Moderna 50 mcg/0.5mL) 12YO+ BIVALENT PF, MDV 03/29/2022 COVID-19 vaccine (Pfizer-Bio NTech 30mcg/0.3mL) PF, MDV 03/09/2021,07/24/2020,07/03/2020 COVID-19 vaccine Comirnaty (Pfizer-BioNTech 30mcg/0.3mL) 12YO+ [id number] Formula PF, SDV, PFS 03/05/2023 Influenza Virus, [...] Brother kidney problems Heart Disease Father 1st [place] at 65 d 77 yo CHF Diabetes Mother Heart Disease Mother d 64 yo [place] Genetic Other There is a posi tive [...] T Respiratory Rate 24 05/03/2023 7:04 AM SWING MANAGER Oxygen Saturation 100% 07/27/2023 11:51 AM CDT Inhaled Oxygen Concentration - - Weight 81.6 kg (180 lb) 07/27/2023 11:51 AM CDT pt reported Height 175.3 cm (5' 9.02) 07/27/2023 11:51 AM C DT Body Mass Index 26.57 07/27/2023 11:51 AM CDT Plan of Treatment Upcoming Encounters Date Type Department Care Team (Late st Contact Info) Description 09/13/2023 1:00 PM CDT Appointment [facility] and [address] [address] Zoila Grace, PT [address] [address] 09/20/2023 11:45 AM CDT Appointment [facility] and [address] [address] Zoila Grace, PT [address] [address] 09/24/2023 1:00 PM CDT Appointment [facility] [address] [place] [address] Zoila Grace, PT [address] [place] [address] 09/27/2023 1:00 PM CDT [facility]ment [facility] [address] [place] [address] Zoila Grace, PT [address] [place] [address] 10/01/2023 1:00 PM CDT Appointment [facility] [address], [place] [address] Zoila Grace, PT [address] [address] 10/04/2023 1:45 PM CDT Appointment [facility] [address] [place] [address] Zoila Grace, PT [address] [address] 10/11/2023 1:00 PM CDT Appointment [facility] [address], [place] [address] Zoila Grace, PT [address] [place] [address] 10/15/2023 1:00 PM CDT Appointment [facility] [address] [place] [address] Zoila Grace, PT [address] [place] [address] 10/18/2023 1:00 PM CDT [facility]ment [facility] [address], [place] [address] Zoila Grace, PT [address] [place] [address] 10/22/2023 1:00 PM CDT Appointment [facility] [address], [place] [address] Zoila Grace, PT [address] [place] [address] 10/25/2023 1:00 PM CDT Appointment [facility] [address], [place] [address] Zoila Grace, PT [address] [address] 10/29/2023 1:00 PM CDT Appointment [facility] [address], [place] [address] Zoila Grace, PT [address] [address] 11/01/2023 1:00 PM CDT Appointment [facility] ? [facility] [address] [place] [address] JoyZoila foster, PT [address] [place] [address] 11/05/2023 1:00 PM CDT Appointment [facility] [address] [place] [address] JoyZoila foster, PT [address] [place] [address] Health Maintenance Due Date Last Done Comments [...] 7,600(H) <450 pg/mL 07/27/2023 11:09 PM CDT [facility] Blood BLOOD SPECIMEN / Unknown Butterfly / Unknown 07/27/2023 10:49 AM CDT 07/27/2023 10:50 AM CDT Narrative [facility] - 07/27/2023 11:09 PM CDT The [...] failure. ? Melquiades Man MD SEND OUTS [facility] [address] [place] [address], * (ABNORMAL) BASIC METABOLIC PANEL (07/27/2023 10:49 AM CDT) SODIUM 137 136 - 145 mmol/L 07/27/2023 11:08 PM CDT [facility] POTASSIUM 4.4 3.5 - 5.1 mmol/L 07/27/2023 11:08 PM T [facility] CHLORIDE 94(L) 98 - 107 mmol/L 07/27/2023 11:08 PM T [facility] CO2,TOTAL 26 22 - 29 mmol/L 07/27/2023 11:08 PM [facility] ANION GAP 17 5 - 18 07/27/2023 11:08 PM T [facility] GLUCOSE 317(H) 70 - 99 mg/dL 07/27/2023 11:08 PM T [facility] CALCIUM 10.1 8.8 - 10.2 mg/dL 07/27/2023 11:08 PM T [facility] BUN 52(H) 8 - 23 mg/dL 07/27/2023 11:08 PM [facility] CREATININE 1.74(H) 0.70 - 1.20 mg/dL 07/27/2023 11:08 PM T [facility] BUN/CREAT RATIO 30(H) 10 - 20 11:08 PM T [facility] eGFR 39(L) >90 mL/min/1.7 3m2 07/27/2023 11:08 PM T [facility] Comment:As of 2021, [...] 10:50 AM CDT Melquiades Man MD CHEMISTRY [facility] [address] [place] [address], from Last 3 Months Additional Health Concerns [...] 12 months since positive culture): resides in acute/intermediate manager care, receiving hemodialysis, has chronic open wounds/skin damage, has long-term percutaneous indwelling medical devices Exclusions for nares collection (if <12 months since positive culture) include all of the previous exclusions plus patients on antibiotics 7 days prior to collection 03/08/2023 05/31/2023 MDRO-GNB 04/26/2023 04/26/2023 Advance Directives Documents on File Type Date Recorded Patient Parts Identifier Expl anation POLST 03/26/2023 * Full Code [...] Code Status Discussion: Reviewed Preferences Care Teams Fund Controller Relationship Specialty Start Date End Date Votel, Melquiades Gray MD [address] [place] [address] PCP - General 11/20/05 Nurses, Advanced Heart Failure [address] [place] [address] Advanced Heart Failure/Transplant Card 01/24/23 Shade Manuel MD [address] [place] [address] [place] [address] Cardiovascular Disease 01/24/23
--- OUTSIDE RECORDS SUMMARY | 2023-09-12 09:09 | XMS_ITS | Clinical Summary ---
Author Name Unknown Organization [facility] Address [address] [place] [address] Care Team Providers Care Console Assembler Name Role Phone Elsewhere, Pcp Primary Care Provider Unavailabl e Source Comments Patient records contain information from all sites at [facility]. For routine questions regarding patient records, call [phone] during business hours, M-F 8:00 AM - 5:00 PM Central Time. Record requests for emergency care only can be directed to [phone] at any time.[facility] Allergies No known active allergies Medications Medication [...] Heel: Area continues to improve. Wound measures [id number]. 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 Woods was admitted to [facility] April 10 following BK right lower [...] was 0.92 in April 2023. 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 Therefore, we will increase levothyroxine 50mcg to 75mcg and rechecked TSH in 6 weeks. Nursing instructed to continue monitoring for symptoms of hypothyroidism and contact [place] provider if any concerns. 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 [...] and palpitation. 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 Atherosclerosis Of [place] Ar teries Of Other Extremities With Ulceration [...] for COVID-19 12/27/2022. Treated with remdesivir at [facility]. Anemia 01/16/2023 04/12/2023 Overview: Lab Results Component [...] 05/24/2023 Overview: Onychomycosis of toenails; Original Code: [id number] Original Codesystem: SNOMED CT Classification: Medical Confirmation Status: Confirmed Diabetes Mellitus Type 2 01/10/2019 Loss Hearing Right 07/10/2007 Encounters Date Type Department Care Team Description 06/18/2023 3:00 PM [facility] External Outreach Senior Services in [facility] [address], [place] [phone] Hannah Castillo APRN, C.N.P. 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 Pressure Injury (Ulcer) Of Left Heel Stage 3 (HCC) (Primary Dx); Other Complications Of Amputation Stump (HCC) from Last 3 Months Social History Tobacco [...] Comments Blood Pressure 107/66 06/18/2023 1:10 PM CARDIAC SPECIALIST Pulse 78 06/18/2023 1:10 PM CARDIAC SPECIALIST Temperature 36.6 ??C (97.8 ??F) 06/18/2023 1:10 PM CS T Respiratory Rate 16 06/18/2023 1:10 PM CARDIAC SPECIALIST Oxygen Saturation 95% 06/18/2023 1:10 PM CARDIAC SPECIALIST Inhaled Oxygen Concentration - - Weight 75.8 kg (167 lb) 06/18/2023 1:10 PM CARDIAC SPECIALIST Height 175.3 cm (5' 9) 04/12/2023 3:21 PM CARDIAC SPECIALIST Body Mass Index 24.66 04/12/2023 3:21 PM CARDIAC SPECIALIST Plan of Treatment Health Maintenance Due Date [...] Advance Directives For more information, please contact: [phone] * DNR/DNI (Latest Code Status on File) Date Activated Date Inactivated Comments 05/24/2023 6:14 PM * DNR/DNI Date Activated Date Inactivated Comments 04/12/2023 4:11 PM 04/16/2023 7:15 AM Care Teams Console Assembler Relationship Specialty Start Date End Date Elsewhere, Pcp PCP - General Internal Medicine 08/28/23
--- OUTSIDE RECORDS SUMMARY | 2023-09-12 09:09 | XMS_ITS | Encounter Summary ---
Author Name Unknown Organization [facility] Address [address] [place] [address] Care Team Providers Care Tank Worker Name Role Phone Santosumdarrell Natalio Mishra APRN, C.N.P., M.S.N. Primary C are Provider Reason for Visit * Appointment Request (Routine) - Closed Specialty Diagnoses / Procedures Referred By Edin mishra Referred To Contact [facility]dc Facility Referral ID Status Reason Start Date Expiration Date Visits Re quested Visits Authorized [id number] Closed 06/07/2023 06/06/2024 1 1 Encounter Details Date Type Department Care Team (Latest Contact Info) Description 06/07/2023 3:00 PM MULTI SLIDE MACHINE TENDER External Outreach Senior Services in [facility] [address] [place] [phone] Hannah Castillo APRN, C.N.P. [address] [place] [address] [place] [phone] Diabetes Mellitus Type 2 With Diabetic Polyneuropathy [...] Comments Blood Pressure 100/68 06/07/2023 2:42 PM MULTI SLIDE MACHINE TENDER Pulse 78 06/07/2023 2:42 PM MULTI SLIDE MACHINE TENDER Temperature 36.2 ??C (97.1 ??F) 06/07/2023 2:42 PM CS T Respiratory Rate 18 06/07/2023 2:42 PM MULTI SLIDE MACHINE TENDER Oxygen Saturation 99% 06/07/2023 2:42 PM MULTI SLIDE MACHINE TENDER Inhaled Oxygen Concentration - - Weight 76.1 kg (167 lb 12.8 oz) 06/07/2023 2:42 PM MULTI SLIDE MACHINE TENDER Height - - Body Mass Index 24.78 04/12/2023 3:21 PM MULTI SLIDE MACHINE TENDER documented in this encounter Patient Instructions * Patient Instructions* Hannah Castillo APRN, C.N.P. - 06/07/2023 3:00 PM MULTI SLIDE MACHINE TENDER ORDERS and INSTRUCTIONS: Change the NovoLog to 8 units before meals. Continue blood sugar checks. Electronically signed by: Hannah Castillo APRN, C.N.P. 06/07/23 2:57 PM MULTI SLIDE MACHINE TENDER I SLIDE MACHINE TENDER documented in this encounter Progress Notes * Hannah Castillo APRN, C.N.P. - 06/07/2023 3:00 PM CST CHIEF COMPLAINT / REASON FOR VISIT [facility] Follow Up Visit Visit Type: In [...] orders to facility. Total time 30 minutes. I SLIDE MACHINE TENDER documented in this encounter Miscellaneous Notes * [...] tight glycemic control but to prevent hypoglycemia. 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 [address] [place] [phone] PCP - General Internal Medicine 04/10/23 08/27/23 documented as of this encounter
--- OUTSIDE RECORDS SUMMARY | 2023-09-12 09:09 | XMS_ITS | Referral Summary ---
Author Name Unknown Organization [facility] Address [address] [place] [address] Care Team Providers Care Polymer Tester Name Role Phone Elsewhere, Pcp Primary Care Provider Unavailabl e Source Comments Patient records contain information from all sites at [facility]. For routine questions regarding patient records, call [phone] during business hours, M-F 8:00 AM - 5:00 PM Central Time. Record requests for emergency care only can be directed to [phone] at any time.[facility] Encounters Date Type Department Care Team Description 06/18/2023 3:00 PM RN ICU External Outreach [facility] in [place] [id number] [phone] Hannah Castillo APRN, C.N.P. 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 Pressure Injury (Ulcer) Of Left Heel Stage 3 (HCC) (Primary Dx); Other Complications Of Amputation Stump (HCC) from Last 3 Months Allergies No known [...] mg total) by mouth daily. 90 tablet 06/18/2023 06/17/2024 Active clopidogreL (PLAVIX) 75 mg tablet Take 1 tablet (75 mg total) by mouth daily. 30 tablet 06/18/2023 06/17/2024 Active diclofenac sodium (VOLTAREN) 1 [...] Heel: Area continues to improve. Wound measures [id number]. Edges well defined, attached and 100% re-epithelialized [...] will follow up with his PCP in [place] [facility] (Current) Anticoagulant Treatment 08/2022 Overview: On apixaban [...] standard wheelchair Mr. Woods was admitted to [facility] April 10 following BK [...] was 0.92 in April 2023. vice president marketing & development confirmed levothyroxine is given every morning (6am) without other medications. Therefore, we will increase levothyroxine 50mcg to 75mcg and rechecked TSH in 6 weeks. Nursing instructed to continue monitoring for symptoms of hypothyroidism and contact [place] provider if any concerns. 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 [...] and palpitation. 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 Atherosclerosis Of [place] Ar teries Of Other Extremities With Ulceration [...] for COVID-19 12/27/2022. Treated with remdesivir at [facility]. Anemia 01/16/2023 04/12/2023 Overview: Lab [...] 05/24/2023 Overview: Onychomycosis of toenails; Original Code: [id number] Original Codesystem: SNOMED CT Classification: Medical Confirmation [...] lb) 06/18/2023 1:10 PM RN ICU Height 175.3 cm (5' 9) 04/12/2023 3:21 PM RN ICU Body Mass Index 24.66 04/12/2023 3:21 PM RN ICU Plan of Treatment Not on file Advance Directives For more information, please contact: [phone] * DNR/DNI (Latest Code Status on File) Date Activated Date Inactivated Comments 05/24/2023 6:14 PM * DNR/DNI Date Activated Date Inactivated Comments 04/12/2023 4:11 PM 04/16/2023 7:15 AM Care Teams Polymer Tester Relationship Specialty Start Date End Date Elsewhere, Pcp PCP - General Internal Medicine 08/28/23
--- OUTSIDE RECORDS SUMMARY | 2023-09-12 09:09 | XMS_ITS | Encounter Summary ---
Author Name Unknown Organization [facility] Address [address] [place] [address] Care Team Providers Care Software Design Engineer Name Role Phone Santosumdarrell Natalio Mishra APRN, C.N.P., M.S.N. Primary C are Provider Reason for Visit * Appointment Request (Routine) - Closed Specialty Diagnoses / Procedures Referred By Edin mishra Referred To Contact [facility] Referral ID Status Reason Start Date Expiration Date Visits Re quested Visits Authorized [id number] Closed 06/18/2023 06/17/2024 1 1 Encounter Details Date Type Department Care Team (Latest Contact Info) Description 06/18/2023 3:00 PM SPECIAL EDUCATION PRESCHOOL TEACHER External Outreach Senior Services in [facility] [address] [phone] Hannah Castillo APRN, C.N.P. 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); Dementia (HCC); Congestive Heart Failure (HCC); Atrial Fibrillation Other Persistent (HCC); Atherosclerotic Heart Disease Of [place] Coronary Artery Without Angina Pectoris; 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); [...] Comments Blood Pressure 107/66 06/18/2023 1:06 PM SPECIAL EDUCATION PRESCHOOL TEACHER Pulse 78 06/18/2023 1:06 PM SPECIAL EDUCATION PRESCHOOL TEACHER Temperature 36.6 ??C (97.8 ??F) 06/18/2023 1:06 PM CS T Respiratory Rate 16 06/18/2023 1:06 PM SPECIAL EDUCATION PRESCHOOL TEACHER Oxygen Saturation 92% 06/18/2023 1:06 PM SPECIAL EDUCATION PRESCHOOL TEACHER Inhaled Oxygen Concentration - - Weight 75.8 kg (167 lb) 06/18/2023 1:06 PM SPECIAL EDUCATION PRESCHOOL TEACHER Height - - Body Mass Index 24.66 04/12/2023 3:21 PM SPECIAL EDUCATION PRESCHOOL TEACHER documented in this encounter Patient Instructions * Patient Instructions* Hannah Castillo V., RAYNA, C.N.P. - 06/18/2023 3:00 PM SPECIAL EDUCATION PRESCHOOL TEACHER ORDERS and INSTRUCTIONS: Face to face discharge [...] Hannah Castillo APRN, C.N.PCarito 06/18/23 2:09 PM SPECIAL EDUCATION PRESCHOOL TEACHER IAL EDUCATION PRESCHOOL TEACHER documented in this encounter Progress Notes * Hannah Castillo APRN, C.NLucio - 06/18/2023 3:00 PM CST CHIEF COMPLAINT / REASON FOR VISIT [facility] Discharge Visit Visit Type: In Person: Face to Face SUBJECTIVE HISTORY OF PRESENT ILLNESS Today's narrative history (obtained from Patient, Nursing, and PT/OT): From record: Rosalina was admitted to [facility] on 04/30 with abdominal pain found secondary to constipation. He had acute kidney injury and was hydrated and furosemide was held with dosage decreased. He also had urine infection and was treated with IV antibiotics. He returned to [facility] on 05/03 to continue therapies. He [...] side. #2 Amputation Toe Status Post Left ([facility]) Overview: History of amputation of toe #3 Wound Ankle Open Subsequent Left Overview: 04/25/23: Nursing reported left lower calf/ankle redness. #4 Advanced Care Planning Overview: Full code status #5 [place] Use Of Insulin Active ([facility]) Overview: On insulin glargine and aspart started during hospitalization December 2022. #6 Hypothyroidism Overview: Component Ref Range & Units 1 mo ago 04/24/23 1 mo ago 04/13/23 2 mo ago 03/11/23 EXT TSH, Sensitive, S 0.27 - 4.20 uIU/mL 16.80 18.20 11.70 #7 Congestive Heart Failure ([facility]) Overview: EF: ECHO with EF 10-20% on [...] nursing note reviewed. Exam conducted with a comfort filler present. Constitutional Appearance: Normal appearance. HENT Head: [...] standard wheelchair Mr. Woods was admitted to [facility] April 10 following BK right lower [...] daily. #2 Amputation Toe Status Post Left ([facility]) Assessment & Plan: Stable #3 Wound Ankle [...] Plan: He will be full code #5 [place] Use Of Insulin Active ([facility]) Assessment & Plan: Nurse reports he is nonadherent to his diabetic diet. He is also on a sliding scale. #6 Hypothyroidism Assessment & Plan: Increase levothyroxine to 50 mcg daily. snf may give two 25 mcg tablets to equal 50 mcg. He will be discharging in a week #7 Congestive Heart Failure ([facility]) Assessment & Plan: Stable on current meds #8 Atrial Fibrillation Other Persistent ([facility]) Assessment & Plan: buttermaker anticoagulation on apixaban #9 Dementia ([facility]) Assessment & Plan: He has low hearing which could contribute to him not understanding #10 Diabetes Mellitus Type 2 With Diabetic Polyneuropathy ([facility]) Assessment & Plan: Insulin dependent not always compliant with diet. Glargine will be increased to 17 units. #11 Hyperglycemia Assessment & Plan: A1C 7.2 He will follow up with his PCP in [place] #12 Hyperkalemia #13 Hyperlipidemia Assessment & Plan: Stay on statin #14 Weakness General Assessment & Plan: He is getting stronger with therapy. He will continue therapy when he gets his prosthesis. He will have a wheelchair upon discharge. #15 Peripheral Vascular Disease ([facility]) Assessment & Plan: Monotor Other orders - [...] were ordered. Follow up with PCP in [place] and [facility] as scheduled. PATIENT EDUCATION Ready [...] orders to facility. Total time 50 minutes. 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 Hypertension Heart Disease With Congestive Heart Failure (HCC) Hyperlipidemia Hyperglycemia 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 [address] [place] [phone] PCP - General Internal Medicine 04/10/23 08/27/23 documented as of this encounter
--- OUTSIDE RECORDS SUMMARY | 2023-09-12 09:09 | XMS_ITS | Encounter Summary ---
Author Name Unknown Organization [facility] Address [address] [place] [address] Care Team Providers Care Church Supervisor Name Role Phone SantosumNatalio ramírez APRN, C.N.PCarito, M.S.N. Primary C are Provider Reason for Visit * Reason Onset Date Comments Discharge Notice 05/23/2023 Encounter Details Date Type Department Care Team (Latest Contact Info) Description 05/23/2023 Clinical Communication Division of Community Internal Medicine, [facility] in [place], [place] [address] [place] [phone] Natalio Motta APRN, C.N.P., M.S.N. [address] [place] [phone] Discharge Notice Social History Tobacco Use Types [...] on filedocumented in this encounter Care Teams Church Supervisor Relationship Specialty Start Date End Date Natalio Motta APRN, C.N.P., M.S.N. [address] [place] [phone] PCP - General Internal Medicine 04/10/23 08/27/23 documented as of this encounter
--- OUTSIDE RECORDS SUMMARY | 2023-09-12 09:10 | XMS_ITS | Encounter Summary ---
Author Name Unknown Organization [facility] Address [address] [place] [address] Care Team Providers Care Fitting Room Operator Name Role Phone Natalio Motta APRN C.N.PCarito, M.S.N. Primary C are Provider Reason for Visit * Reason Onset Date Comments assisted medication reconciliation Urinary Symptom 06/11/2023 * Appointment Request (Routine) - Closed Specialty Diagnoses / Procedures Referred By Edin salmeron Referred To Contact Jail Facility Referral ID Status Reason Start Date Expiration Date Visits Re quested Visits Authorized [id number] Closed 04/10/2023 04/09/2024 1 1 Encounter Details Date Type Department Care Team (Latest Contact Info) Description 04/11/2023 3:00 PM DIRECTOR OF INFECTION PREVENTION External Outreach Senior Services in [facility] [address] [place] [phone] Natalio Motta APRN, C.NLucio, M.S.N. [address] [place] [phone] 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 [...] And With Unspecified Stage Chronic Kidney Disease; Half-Way Stay Certification Exam; Polypharmacy; Advanced Care Planning; [...] Comments Blood Pressure 112/72 04/12/2023 4:22 PM DIRECTOR OF INFECTION PREVENTION Pulse 85 04/12/2023 4:22 PM DIRECTOR OF INFECTION PREVENTION Temperature 36.6 ??C (97.8 ??F) 04/12/2023 4:22 PM CS T Respiratory Rate 18 04/12/2023 4:22 PM DIRECTOR OF INFECTION PREVENTION Oxygen Saturation 97% 04/12/2023 4:22 PM DIRECTOR OF INFECTION PREVENTION Room air Inhaled Oxygen Concentration - - Weight - - Height - - Body Mass Index - - documented in this encounter Progress Notes * Natalio Motta APRN, C.NLucio, M.S.N. - 04/11/2023 3:00 PM CST Encounter created to obtain urine specimen. CTOR OF INFECTION PREVENTION documented in this encounter H&P Notes * Natalio Motta APRN C.N.P. - 04/11/2023 3:00 PM CST Images from the original note were not included. CHIEF COMPLAINT / REASON FOR VISIT [facility] Follow Up Visit Visit Type: In Person: Face to Face SUBJECTIVE HISTORY OF PRESENT ILLNESS Darek Bowers is a 82 y.o. male resident at [facility]. Medical history is significant for systolic [...] recently saw a vascular surgeon down at [place] who recommended Ortho foot to see him but that appointment cannot be made until April. He was seen again in wound clinic on 03/08/2023 at the outside hospital and felt the wound to be worsening so transferred to [facility] ED. 03/08/2023: In the ED, [...] Family Member): Patient is seen today for alf medication reconciliation with his in attendance. Patient//nursing [...] check of right leg amputation at the [facility], 2nd Floor. [address] [place] [address] on 05/11/2023 at 10:00 AM. Please see the After Visit Summary for additional information. Please alwttl60 minutes early. Call [facility] at [phone] to reschedule as needed or for further [...] Disease Overview: Treatment: Metoprolol Goal: 120-130 #14 Half-Way Stay Certification Exam Overview: Short-term stay. #15 [...] Blood pressure normotensive. Continue care plan. #12 Half-Way Stay Certification Exam Assessment & Plan: Plans [...] extensive time spent on other activities: 70. CTOR OF INFECTION PREVENTION documented in this encounter Miscellaneous Notes * [...] been working with PT and tolerating therapy. CTOR OF INFECTION PREVENTION * Assessment & Plan Note - Natalio Motta APRN, C.N.P. - 04/12/2023 4:45 PM CSTAssociated Problem(s): Hypothyroidism Continue levothyroxine. TSH reordered. CTOR OF INFECTION PREVENTION * Assessment & Plan Note - Natalio Motta APRN, C.N.P. - 04/12/2023 4:09 PM CSTAssociated Problem(s): Weakness General Verbalized improvement with weakness. We will continue therapy. CTOR OF INFECTION PREVENTION * Assessment & Plan Note - Natalio Motta APRN, C.N.P. - 04/12/2023 4:08 PM CSTAssociated Problem(s): Half-Way Stay Certification Exam Plans to discharge back home. Patient remains appropriate SNF resident. Order summary paperwork signed following our visit, this included review of medications and orders. Current comorbidities, ADL need/level of debility requires skilled care/therapy. Medications and labs all reviewed and appropriate related to comorbidities, unless otherwise indicated. Physician order sheet signed. Continue PT/OT therapy, nutrition intervention, skin protection, and fall prevention. CTOR OF INFECTION PREVENTION * Assessment & Plan Note - Natalio Motta APRN, C.N.P. - 04/12/2023 4:07 PM CSTAssociated Problem(s): Hypertensive Heart And Chronic Kidney Disease Without Heart Failure And WithUnspecified Stage Chronic Kidney Disease Images from the original note were not included. Blood pressure normotensive. Continue care plan. CTOR OF INFECTION PREVENTION * Assessment & Plan Note - Natalio Motta APRN, C.N.P. - 04/12/2023 4:05 PM CSTAssociated Problem(s): Hyperkalemia (Resolved 05/24/2023) BMP ordered. CTOR OF INFECTION PREVENTION * Assessment & Plan Note - Natalio Motta APRN, C.N.P. 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 Currently on Glipizide, showed and long-acting insulins. Blood sugar check 4 times daily. Nursing/patient denied episodes of hypoglycemia. We will continue care plan. CTOR OF INFECTION PREVENTION * Assessment & Plan Note - Natalio Motta APRN, C.N.P. - 04/12/2023 4:01 PM CSTAssociated Problem(s): Congestive Heart Failure (HCC) No admission weight yet. Nursing to check patient's weight CTOR OF INFECTION PREVENTION * Assessment & Plan Note - Natalio Motta APRN, C.N.P. - 04/12/2023 3:59 PM CSTAssociated Problem(s): Atrial Fibrillation Other Persistent (HCC) HR well controlled ranging from 82-85. Continue care plan. CTOR OF INFECTION PREVENTION * Assessment & Plan Note - Natalio Motta APRN, C.N.P. - 04/12/2023 3:57 PM CSTAssociated Problem(s): Anemia Iron Deficiency Stable. Denied dizziness, lightheadedness, shortness of breaths and palpitation. CTOR OF INFECTION PREVENTION * Assessment & Plan Note - Natalio Motta APRN C.N.P. - 04/12/2023 3:57 PM CSTAssociated Problem(s): Anemia (Resolved 04/12/2023) CBC reordered. Denied dizziness, lightheadedness, shortness of breaths or palpitation. CTOR OF INFECTION PREVENTION * Addendum Note - Natalio Motta APRN, C.N.P., M.S.N. - 04/11/2023 3:00 PM CSTAddended by: NATALIO MOTTA on: 06/11/2023 09:41 AM Modules accepted: Orders, Level of Service CTOR OF INFECTION PREVENTION documented in this encounter Plan of Treatment [...] And With Unspecified Stage Chronic Kidney Disease Half-Way Stay Certification Exam Polypharmacy Advanced Care Planning Hypothyroidism Dysuria documented in this encounter Care Teams Fitting Room Operator Relationship Specialty Start Date End Date Natalio Motta APRN, C.NCaritoP., M.S.N. [address] [place] [phone] PCP - General Internal Medicine 04/10/23 08/27/23 documented as of this encounter
== END 2023-09-12 09:05 | disposition home or self-care (01) ==
LOC: WOUND 09:04
PROVIDERS: PCP Family Medicine; Visit Provider Surgery
DX: E11.621 Type 2 diabetes mellitus with foot ulcer (principal); L97.422 Non-pressure chronic ulcer of left heel and midfoot with fat layer exposed; Z79.4 Long term (current) use of insulin; Z79.84 Long term (current) use of oral hypoglycemic drugs
CPT/HCPCS: 97597

== ENCOUNTER 2023-09-19 08:59 | Outpatient (CLI) | payer MEDICARE, BC, SELFPAY ==
--- OUTSIDE RECORDS SUMMARY | 2023-09-19 09:01 | XMS_ITS | Encounter Summary ---
Author Name [employer] of [employer]a [employer] Organization [employer] [facility] [employer] Address [address] [place] [address] Support Name Relationship Address Phone SHELLIE CASAS [...] Name Patient's Relationship to Policy Cherry [facility] (WNR) MEDICARE ADVANTAGE [facility] (WNR) May 14, 2020 [id number] [phone] PITER CASAS ERD PATIENT Selected Encounter This section includes the information on record at OR for the Encounter. Date/Time Encounter Type Encounter Description Reason Provider Source September 18, 2023 01:00 PM HEARING AID FITTING/CHECKIN G AUDIOLOGY ICD-10-CM H90.3 Sensorineural hearing loss, bilateral RADHA MAKI [place] Encounter Template Text not used by OR Assessments - Encounter Diagnoses This section includes the primary and secondary diagnoses documented for the Encounter. Date/Time Primary/Secondary Diagnosis Diagnosis Name Provider Source September 18, 2023 04:52 PM PRIMARY Sensorineural hearing loss, bilateral RADHA MAKI [facility] September 18, 2023 04:52 PM SECONDARY Encounter for fitting and adjustment of hearing aid RADHA MAKI [facility] Encounter Notes: All associated encounter notes This section contains the clinical notes associated to the Encounter. Date/Time Encounter Note(s) Provider Source September 18, 2023 10:13 AM AUDIOLOGY NOTE: LOCAL TITLE: AUDIOLOGY CLINIC NOTE STANDARD TITLE: AUDIOLOGY NOTE DATE OF NOTE: SEPTEMBER 18, 2023@10:13 ENTRY DATE: SEPTEMBER 18, 2023@10:13:58 AUTHOR: MADI MAKI EXP COSIGNER: URGENCY: STATUS: COMPLETED SUBJECT: HEARING AID SERVICE Diagnosis: Bilateral Sensorineural Hearing Loss was accompanied today by his , Shellie. The following hearing aid problem/s were presented: [place] and his are typically seen through [facility] care. They reported that the eligibility criteria recently changed and now they have to drive here to [place] for appointments. This is understandably frustrating. Rory would like help pairing his remote control and multi-carrie to his aids. Shellie noted that the manual only provided instructions for battery-powered aids. Reason for visit: Therapeutic hearing aid service Otoscopy: Both Ears: Free of excessive cerumen Hearing Aid Check: - Visual inspection revealed aids in good condition. - Biologic listening check indicated good sound quality from aids. Hearing aids right/left; Issued 12/07/2020 ([facility]): Make: Resound Model: One 61 miniRIC-R Style: [employer] Serial #s: [id number] Acoustics: 2MP, silicone micro molds Action: - Aids cleaned and checked. - Paired remote control and multi-carrie to hearing aids. given brief tutorial per his request, as he has already used both of these devices before. Verified functionality. - and informed that we offer video and phone call appointments for future concerns. They will keep this in mind. Plan: - [place] will contact this clinic if questions or problems arise. - [place] is in agreement with this plan. /riccardo/ MADI MAKI Outside Machinist Apprentice Signed: 09/18/2023 16:53 MADI MAKI [facility]
--- OUTSIDE RECORDS SUMMARY | 2023-09-19 09:01 | XMS_ITS | Continuity of Care Document ---
Author Name [facility] Organization 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 Unavailable Unavailable Problems Combined list of problems from Department of [facility] and [facility] facilities. It does not include entries that were removed or entered in error. Problem Status Onset Date Problem Type Date of Resolution Comments Source Exposure to potentially hazardous substance ([facility] [id number]) Active 07/20/19 24 Condition Jul 20, 2023 Entered By: MECHELLE DEMPSEY Comment: [facility] TAM Documentation Initiative [facility] CAD - Coronary Artery Disease ([facility] [id number]) Active Condition [facility] ([facility]) CHF - Congestive Heart Failure ([facility] [id number]) Active Condition [facility]) Diabetes Mellitus Type 2 ([facility] [id number]) Active Condition [facility]) HTN - Hypertension ([facility] [id number]) Active Condition [place] ([facility]) Hyperlipidemia ([facility] [id number]) Active Condition [facility]) Long-term current use of insulin Active Condition [facility]) Peripheral neuropathy due to type 2 diabetes mellitus Active Condition [place] ([facility]) Diagnosis: ICD-10-CM H90.3 Sensorineural hearing loss, bilateral Active Diagnosis [facility] Diagnosis: ICD-10-CM I50.9 Heart failure, unspecified Active Diagnosis [facility]) Diagnosis: ICD-10-CM E11.9 Type 2 diabetes mellitus without complications Active Diagnosis [facility] Diagnosis: ICD-10-CM R26.89 Other abnormalities of gait and mobility Active Diagnosis [facility] ([facility]) Diagnosis: ICD-10-CM Z00.00 Encntr for general adult medical exam w/o abnormal findings Active Diagnosis [facility] ([facility]) Medications Combined list of outpatient medications from Department of [facility] and [facility] facilities.Medications provided include 1) outpatient [...] WOUND CARE ORDERS TOPICA LLThanh ACTIVE 02/16/2024 [id number] KATHY MURPHY 2022 40 [place] [...] Site Reaction Lot Number CVX Code Drug Duck Operator Status Comments Source INFLUENZA, HIGH-DOSE, QUADRIVALENT 1 2021 197 complet ed [facility] COVID-19 (MODERNA), MRNA, LNP-S, BIVALENT, PF, 50 MCG/0.5 ML OR 25MCG/0.25 ML DOSE 1 2021 229 complet ed [facility] COVID-19 (PFIZER), MRNA, LNP-S, PF, 30 MCG/0.3 ML DOSE 3 2020 208 complet ed [facility] INFLUENZA, UNSPECIFIED FORMULATION 2020 88 complet ed [facility] TDAP 2020 115 complet ed [email or web address], [id number] , exp-2022 and given VIS dated 12/17/2020 [facility] ([facility]) ZOSTER RECOMBINANT 2 2020 187 complet ed [facility]) ZOSTER RECOMBINANT 1 2020 187 complet ed [facility] ([facility]) COVID-19 (PFIZER), MRNA, LNP-S, PF, 30 MCG/0.3 ML DOSE 2 2020 208 complet ed [facility] COVID-19 (PFIZER), MRNA, LNP-S, PF, 30 MCG/0.3 ML DOSE 1 2020 208 complet ed [facility] INFLUENZA, UNSPECIFIED FORMULATION 2019 88 complet ed [facility] PNEUMOCOCCAL CONJUGATE PCV 13 2014 133 complet ed Per [facility] PNEUMOCOCCAL POLYSACCHARID E PPV23 2010 33 complet ed [facility] PNEUMOCOCCAL POLYSACCHARID E PPV23 2005 33 complet ed [facility] Results Combined list of recent [...] Jan 23, 2023 02:00 PM Reporting Lab: [facility] [address] Performing Lab: [facility] [address] [place] ([facility]) BASIC METABOLIC PANEL+MG UREA NITROGEN [MASS/VOLUM E] IN SERUM OR PLASMA 35 8 - 26 01/23 H Specimen Type: PLASMA No comment entered. Ordering Provider: AILIN CHESTER Report Released Date/Time: Jan 23, 2023 02:00 PM Reporting Lab: [facility] [address] Performing Lab: [facility] [address] [place] ([facility]) BASIC METABOLIC PANEL+MG GLUCOSE [MASS/VOLUM E] IN SERUM OR PLASMA 239 70 - 100 01/23 H Specimen Type: PLASMA No comment entered. Ordering Provider: AILIN CHESTER Report Released Date/Time: Jan 23, 2023 02:00 PM Reporting Lab: [facility] [address] Performing Lab: [facility] [address] [place] ([facility]) BASIC METABOLIC PANEL+MG SODIUM [MOLES/VOLU ME] IN SERUM OR PLASMA 140 136 - 145 01/23 Specimen Type: PLASMA No comment entered. Ordering Provider: AILIN CHESETR Report Released Date/Time: Jan 23, 2023 02:00 PM Reporting Lab: [address] Performing Lab: [address] [place] [address] ([facility]) BASIC METABOLIC PANEL+MG POTASSIUM [MOLES/VOLU ME] IN SERUM OR PLASMA 5.1 3.5 - 5.1 01/23 Specimen Type: PLASMA No comment entered. Ordering Provider: AILIN CHESTER Report Released Date/Time: Jan 23, 2023 02:00 PM Reporting Lab: [address] Performing Lab: [address] ([place]) BASIC METABOLIC PANEL+MG CHLORIDE [MOLES/VOLU ME] IN SERUM OR PLASMA 109 98 - 107 01/23 H Specimen Type: PLASMA No comment entered. Ordering Provider: AILIN CHESTER Report Released Date/Time: Jan 23, 2023 02:00 PM Reporting Lab: [facility] [address] Performing Lab: [facility] [address] [place] ([facility]) BASIC METABOLIC PANEL+MG CARBON DIOXIDE, TOTAL [MOLES/VOLU ME] IN SERUM OR PLASMA 21 22 - 29 01/23 L Specimen Type: PLASMA No comment entered. Ordering Provider: AILIN CHESTER Report Released Date/Time: Jan 23, 2023 02:00 PM Reporting Lab: [facility] [address] Performing Lab: [facility] [address] [place] ([facility]) BASIC METABOLIC PANEL+MG CALCIUM [MASS/VOLUM E] IN SERUM OR PLASMA 9.4 8.4 - 10.2 01/23 Specimen Type: PLASMA No comment entered. Ordering Provider: AILIN CHESTER Report Released Date/Time: Jan 23, 2023 02:00 PM Reporting Lab: [facility] [address] Performing Lab: [facility] [address] [place] ([facility]) BASIC METABOLIC PANEL+MG MAGNESIUM [MASS/VOLUM E] IN SERUM OR PLASMA 1.7 1.6 - 2.6 01/23 Specimen Type: PLASMA No comment entered. Ordering Provider: AILIN CHESTER Report Released Date/Time: Jan 23, 2023 02:00 PM Reporting Lab: [facility] [address] Performing Lab: [facility] [address] [place] ([facility]) BASIC METABOLIC PANEL+MG ANION GAP IN SERUM OR PLASMA 10 5 - 15 01/23 Specimen Type: PLASMA No comment entered. Ordering Provider: AILIN CHESTER Report Released Date/Time: Jan 23, 2023 02:00 PM Reporting Lab: [facility] [address] Performing Lab: [facility] [address] [place] ([facility]) BASIC METABOLIC PANEL+MG GLOMERULAR FILTRATION RATE/1.73 SQ M.PREDICTED [VOLUME RATE/AREA] IN SERUM, PLASMA OR BLOOD BY CREATININE- BASED FORMULA (CKD-EPI 2020) 61 60 01/23 Specimen Type: PLASMA No comment entered. Ordering Provider: AILIN CHESTER Report Released Date/Time: Jan 23, 2023 02:00 PM Reporting Lab: [facility] [address] Performing Lab: [facility] [address] [place] ([facility]) BNP NATRIURETIC PEPTIDE B [MASS/VOLUM E] IN SERUM OR PLASMA 1549 <99 - 99 01/23 H Specimen Type: PLASMA No comment entered. Ordering Provider: AILIN CHESTER Report Released Date/Time: Jan 23, 2023 02:00 PM Reporting Lab: [facility] [address] Performing Lab: [facility] [address] [place] ([facility]) MICROALBU MIN/CREAT ININE RATIO URINE CREATININE [MASS/VOLUM E] IN URINE 132.8 58.0 - 161.0 11/23 Specimen Type: URINE No comment entered. Ordering Provider: AILIN CHESTER Report Released Date/Time: Nov 23, 2022 11:58 AM Reporting Lab: [facility] [address] Performing Lab: [facility] [address] [place] ([facility]) MICROALBU MIN/CREAT ININE RATIO URINE MICROALBUMI N/CREATININ E [MASS RATIO] IN URINE 28.0 11/23 Specimen Type: URINE No comment entered. Ordering Provider: AILIN CHESTER Report Released Date/Time: Nov 23, 2022 11:58 AM Reporting Lab: [facility] [address] Performing Lab: [place] [address] [place] ([facility]) MICROALBU MIN/CREAT ININE RATIO URINE MICROALBUMI N [MASS/VOLUM E] IN URINE 37.2 11/23 H Specimen Type: URINE No comment entered. Ordering Provider: AILIN CHESTER Report Released Date/Time: Nov 23, 2022 11:58 AM Reporting Lab: [facility] [address] Performing Lab: [facility] [address] [place] ([facility]) LIPID PANEL,NON -FASTING CHOLESTEROL [MASS/VOLUM E] IN SERUM OR PLASMA 130 11/23 Specimen Type: PLASMA No comment entered. Ordering Provider: AILIN CHESTER Report Released Date/Time: Nov 23, 2022 11:58 AM Reporting Lab: [facility] [address] Performing Lab: [facility] [address] [place] ([facility]) LIPID PANEL,NON -FASTING CHOLESTEROL IN HDL [MASS/VOLUM E] IN SERUM OR PLASMA 39 11/23 L Specimen Type: PLASMA No comment entered. Ordering Provider: AILIN CHESTER Report Released Date/Time: Nov 23, 2022 11:58 AM Reporting Lab: [facility] [address] Performing Lab: [facility] [address] [place] ([facility]) LIPID PANEL,NON -FASTING CHOLESTEROL IN LDL [MASS/VOLUM E] IN SERUM OR PLASMA BY CALCULATION 73 11/23 Specimen Type: PLASMA No comment entered. Ordering Provider: AILIN CHESTER Report Released Date/Time: Nov 23, 2022 11:58 AM Reporting Lab: [facility] [address] Performing Lab: [facility] [address] [place] ([facility]) LIPID PANEL,NON -FASTING CHOLESTEROL IN VLDL [MASS/VOLUM E] IN SERUM OR PLASMA BY CALCULATION 18 11/23 Specimen Type: PLASMA No comment entered. Ordering Provider: AILIN CHESTER Report Released Date/Time: Nov 23, 2022 11:58 AM Reporting Lab: [facility] [address] Performing Lab: [address] [place] [address] ([facility]) LIPID PANEL,NON -FASTING CHOLESTEROL NON HDL [MASS/VOLUM E] IN SERUM OR PLASMA 91 11/23 Specimen Type: PLASMA No comment entered. Ordering Provider: AILIN CHESTRE Report Released Date/Time: Nov 23, 2022 11:58 AM Reporting Lab: [address] Performing Lab: [address] ([facility]) LIPID PANEL,NON -FASTING TRIGLYCERID E [MASS/VOLUM E] IN SERUM OR PLASMA 92 11/23 Specimen Type: PLASMA No comment entered. Ordering Provider: AILIN CHESTER Report Released Date/Time: Nov 23, 2022 11:58 AM Reporting Lab: [facility] [address] Performing Lab: [facility] [id number] [place] [address] ([facility]) CBC LEUKOCYTES [#/VOLUME] IN BLOOD BY AUTOMATED COUNT 10.80 4.0 - 11.0 11/23 Specimen Type: BLOOD No comment entered. Ordering Provider: AILIN CHESTER Report Released Date/Time: Nov 23, 2022 11:58 AM Reporting Lab: [facility] [address] Performing Lab: [address] [place] ([facility]) CBC ERYTHROCYTE S [#/VOLUME] IN BLOOD BY AUTOMATED COUNT 3.87 4.6 - 6.2 11/23 L Specimen Type: BLOOD No comment entered. Ordering Provider: AILIN CHESTER Report Released Date/Time: Nov 23, 2022 11:58 AM Reporting Lab: [facility] [address] Performing Lab: [place] [address] [place] ([facility]) CBC HEMOGLOBIN [MASS/VOLUM E] IN BLOOD 12.1 13.5 - 17.9 11/23 L Specimen Type: BLOOD No comment entered. Ordering Provider: ALIIN CHESTER Report Released Date/Time: Nov 23, 2022 11:58 AM Reporting Lab: [facility] [address] Performing Lab: [facility] [address] [place] ([facility]) CBC HEMATOCRIT [VOLUME FRACTION] OF BLOOD BY AUTOMATED COUNT 37.5 41 - 54 11/23 L Specimen Type: BLOOD No comment entered. Ordering Provider: AILIN CHESTER Report Released Date/Time: Nov 23, 2022 11:58 AM Reporting Lab: [facility] [address] Performing Lab: [address] [place] [address] ([facility]) CBC MCV [ENTITIC VOLUME] BY AUTOMATED COUNT 96.9 80 - 100 11/23 Specimen Type: BLOOD No comment entered. Ordering Provider: AILIN CHESTER Report Released Date/Time: Nov 23, 2022 11:58 AM Reporting Lab: [facility] [address] Performing Lab: [facility] [address] [place] ([facility]) CBC MCH [ENTITIC MASS] BY AUTOMATED COUNT 31.3 27 - 33 11/23 Specimen Type: BLOOD No comment entered. Ordering Provider: AILIN CHESTER Report Released Date/Time: Nov 23, 2022 11:58 AM Reporting Lab: [facility] [address] Performing Lab: [facility] [address] [place] ([facility]) CBC MCHC [MASS/VOLUM E] BY AUTOMATED COUNT 32.3 32.0 - 37.5 11/23 Specimen Type: BLOOD No comment entered. Ordering Provider: AILIN CHESTER Report Released Date/Time: Nov 23, 2022 11:58 AM Reporting Lab: [facility] [address] Performing Lab: [facility] [address] [place] ([facility]) CBC PLATELETS [#/VOLUME] IN BLOOD BY AUTOMATED COUNT 293 150 - 400 11/23 Specimen Type: BLOOD No comment entered. Ordering Provider: AILIN CHESTER Report Released Date/Time: Nov 23, 2022 11:58 AM Reporting Lab: [facility] [address] Performing Lab: [address] ([facility]) CBC PLATELET MEAN VOLUME [ENTITIC VOLUME] IN BLOOD BY AUTOMATED COUNT 10.3 7.4 - 10.4 11/23 Specimen Type: BLOOD No comment entered. Ordering Provider: AILIN CHESTER Report Released Date/Time: Nov 23, 2022 11:58 AM Reporting Lab: [facility] [address] Performing Lab: [place] [id number] [place] ([facility]) CBC ERYTHROCYTE DISTRIBUTIO N WIDTH [RATIO] BY AUTOMATED COUNT 13.2 11.5 - 14.5 11/23 Specimen Type: BLOOD No comment entered. Ordering Provider: AILIN CHESTER Report Released Date/Time: Nov 23, 2022 11:58 AM Reporting Lab: [facility] [address] Performing Lab: [address] [place] ([facility]) TSH W/REFLEX TO FREE T4 THYROTROPIN [UNITS/VOLU ME] IN SERUM OR PLASMA 4.59 0.35 - 4.94 11/23 Specimen Type: PLASMA No comment entered. Ordering Provider: AILIN CHESTER Report Released Date/Time: Nov 23, 2022 11:58 AM Reporting Lab: [facility] [address] Performing Lab: [facility] [address] [place] ([facility]) COMPREHEN SIVE METABOLIC PANEL+MG CREATININE [MASS/VOLUM E] IN SERUM OR PLASMA 1.2 0.7 - 1.2 11/23 Specimen Type: PLASMA No comment entered. Ordering Provider: AILIN CHESTER Report Released Date/Time: Nov 23, 2022 11:58 AM Reporting Lab: [facility] [address] Performing Lab: [address] ([facility]) COMPREHEN SIVE METABOLIC PANEL+MG UREA NITROGEN [MASS/VOLUM E] IN SERUM OR PLASMA 34 8 - 26 11/23 H Specimen Type: PLASMA No comment entered. Ordering Provider: AILIN CHESTER Report Released Date/Time: Nov 23, 2022 11:58 AM Reporting Lab: [facility] [address] Performing Lab: [facility] [address] [place] ([facility]) COMPREHEN SIVE METABOLIC PANEL+MG GLUCOSE [MASS/VOLUM E] IN SERUM OR PLASMA 54 70 - 100 11/23 L Specimen Type: PLASMA No comment entered. Ordering Provider: AILIN CHESTER Report Released Date/Time: Nov 23, 2022 11:58 AM Reporting Lab: [facility] [address] Performing Lab: [facility] [address] [place] ([facility]) COMPREHEN SIVE METABOLIC PANEL+MG SODIUM [MOLES/VOLU ME] IN SERUM OR PLASMA 143 136 - 145 11/23 Specimen Type: PLASMA No comment entered. Ordering Provider: AILIN CHESTER Report Released Date/Time: Nov 23, 2022 11:58 AM Reporting Lab: [facility] [address] Performing Lab: [facility] [address] [place] ([facility]) COMPREHEN SIVE METABOLIC PANEL+MG POTASSIUM [MOLES/VOLU ME] IN SERUM OR PLASMA 4.4 3.5 - 5.1 11/23 Specimen Type: PLASMA No comment entered. Ordering Provider: AILIN CHESTER Report Released Date/Time: Nov 23, 2022 11:58 AM Reporting Lab: [facility] [address] Performing Lab: [facility] [address] [place] ([facility]) COMPREHEN SIVE METABOLIC PANEL+MG CHLORIDE [MOLES/VOLU ME] IN SERUM OR PLASMA 107 98 - 107 11/23 Specimen Type: PLASMA No comment entered. Ordering Provider: AILIN CHESTER Report Released Date/Time: Nov 23, 2022 11:58 AM Reporting Lab: [facility] [address] Performing Lab: [facility] [address] [place] ([facility]) COMPREHEN SIVE METABOLIC PANEL+MG CARBON DIOXIDE, TOTAL [MOLES/VOLU ME] IN SERUM OR PLASMA 23 22 - 29 11/23 Specimen Type: PLASMA No comment entered. Ordering Provider: AILIN CHESTER Report Released Date/Time: Nov 23, 2022 11:58 AM Reporting Lab: [facility] [address] Performing Lab: [facility] [address] [place] ([facility]) COMPREHEN SIVE METABOLIC PANEL+MG CALCIUM [MASS/VOLUM E] IN SERUM OR PLASMA 9.7 8.4 - 10.2 11/23 Specimen Type: PLASMA No comment entered. Ordering Provider: AILIN CHESTER Report Released Date/Time: Nov 23, 2022 11:58 AM Reporting Lab: [address] Performing Lab: [address] [place] ([facility]) COMPREHEN SIVE METABOLIC PANEL+MG PROTEIN [MASS/VOLUM E] IN SERUM OR PLASMA 7.2 6.0 - 8.3 11/23 Specimen Type: PLASMA No comment entered. Ordering Provider: AILIN CHESTER Report Released Date/Time: Nov 23, 2022 11:58 AM Reporting Lab: [facility] [address] Performing Lab: [place] [address] [place] ([facility]) COMPREHEN SIVE METABOLIC PANEL+MG ALBUMIN [MASS/VOLUM E] IN SERUM OR PLASMA 4.1 3.5 - 5.2 11/23 Specimen Type: PLASMA No comment entered. Ordering Provider: AILIN CHESTER Report Released Date/Time: Nov 23, 2022 11:58 AM Reporting Lab: [facility] [address] Performing Lab: [facility] [address] [place] ([facility]) COMPREHEN SIVE METABOLIC PANEL+MG BILIRUBIN.T OTAL [MASS/VOLUM E] IN SERUM OR PLASMA 0.5 0.2 - 1.2 11/23 Specimen Type: PLASMA No comment entered. Ordering Provider: AILIN CHESTER Report Released Date/Time: Nov 23, 2022 11:58 AM Reporting Lab: [facility] [address] Performing Lab: [facility] [address] [place] ([facility]) COMPREHEN SIVE METABOLIC PANEL+MG MAGNESIUM [MASS/VOLUM E] IN SERUM OR PLASMA 1.4 1.6 - 2.6 11/23 L Specimen Type: PLASMA No comment entered. Ordering Provider: AILIN CHESTER Report Released Date/Time: Nov 23, 2022 11:58 AM Reporting Lab: [address] Performing Lab: [address] ([facility]) COMPREHEN SIVE METABOLIC PANEL+MG ANION GAP IN SERUM OR PLASMA 13 5 - 15 11/23 Specimen Type: PLASMA No comment entered. Ordering Provider: AILIN CHESTER Report Released Date/Time: Nov 23, 2022 11:58 AM Reporting Lab: [place] [id number] Performing Lab: [address] ([facility]) COMPREHEN SIVE METABOLIC PANEL+MG ALKALINE PHOSPHATASE [ENZYMATIC ACTIVITY/VO LUME] IN SERUM OR PLASMA 87 40 - 150 11/23 Specimen Type: PLASMA No comment entered. Ordering Provider: AILIN CHESTER Report Released Date/Time: Nov 23, 2022 11:58 AM Reporting Lab: [facility] [address] Performing Lab: [facility] [address] [place] ([facility]) COMPREHEN SIVE METABOLIC PANEL+MG ALANINE AMINOTRANSF ERASE [ENZYMATIC ACTIVITY/VO LUME] IN SERUM OR PLASMA 28 11/23 Specimen Type: PLASMA No comment entered. Ordering Provider: AILIN CHESTER Report Released Date/Time: Nov 23, 2022 11:58 AM Reporting Lab: [facility] [address] Performing Lab: [facility] [id number] [place] [address] ([facility]) COMPREHEN SIVE METABOLIC PANEL+MG ASPARTATE AMINOTRANSF ERASE [ENZYMATIC ACTIVITY/VO LUME] IN SERUM OR PLASMA 33 11/23 Specimen Type: PLASMA No comment entered. Ordering Provider: AILIN CHESTER Report Released Date/Time: Nov 23, 2022 11:58 AM Reporting Lab: [facility] [address] Performing Lab: [facility] [address] [place] ([facility]) COMPREHEN SIVE METABOLIC PANEL+MG GLOMERULAR FILTRATION RATE/1.73 SQ M.PREDICTED [VOLUME RATE/AREA] IN SERUM, PLASMA OR BLOOD BY CREATININE- BASED FORMULA (CKD-EPI 2020) 61 11/23 Specimen Type: PLASMA No comment entered. Ordering Provider: AILIN CHESTER Report Released Date/Time: Nov 23, 2022 11:58 AM Reporting Lab: [facility] [address] Performing Lab: [facility] [address] [place] ([facility]) HEMOGLOBI N A1C HEMOGLOBIN A1C/HEMOGLO BIN.TOTAL IN [...] Nov 23, 2022 11:58 AM Reporting Lab: [facility] [address] Performing Lab: [facility] [address] [place] ([facility]) Vital Signs Combined list of inpatient and [...] DC Date Status Disposition Source [place] [facility] Outpatient Encounter [id number] 03/29 QASIM SCHULZ [facility] [place] [facility] Outpatient Encounter [id number] 04/05 QASIM SCHULZ [facility] [place] [facility] Outpatient Encounter [id number] 07/31 [place] [facility] [place] [facility] Outpatient Encounter [id number] 08/21 [place] [facility] [place] [facility] [place]patient Encounter [id number] 09/20 [place] [facility] Outpatient Encounter [id number] [id number] [place]11 [facility] [place] [facility] Outpatient Encounter [id number] ZARI POWER 11/16 [place] [facility] [place] [facility] Outpatient Encounter [id number] 11[facility]21 [place] [facility] OFFICE O/P EST MOD 30-39 MIN [id number] Diagnos is: ICD-10- CM Z00.00 Encntr for general adult medical exam w/o abnorma l finding s
CANDELARIO CHESTER DA K 11/23 [place] ([facility]) [place] ([facility]) GAIT TRAINING THERAPY [id number] Diagnos is: ICD-10- CM R26.89 Other abnorma lities of gait and mobilit y
OMAYRA JAMESON NTER V 11/23 [place] ([facility]) [place] [facility] Outpatient Encounter [id number] SA JAMARI JAMESON R 12/11 [place] [facility] [place] [facility] Out[place] Encounter [id number] 12/25 [place] [facility] [place] [facility] Out[place] Encounter [id number] SA JAMARI JAMESON R 12/28 [place] [facility] [place] [facility] Outpatient Encounter [id number] 01/05 [place] [facility] [place] [facility] Out[place] Encounter [id number] 01/11 [place] [facility] [place] [facility] Outpatient Encounter [id number] 01/16 [place] [facility] OFFICE O/P EST HI 40-54 MIN [id number] Diagnos is: ICD-10- CM I50.9 Heart failure , unspeci fied
CANDELARIO CHESTER 01/23 [facility] [place] [facility] Outpatient Encounter [id number] Marcus POTTS I 01/24 [place] [facility] [place] [facility] Outpatient Encounter [id number] Danica TORRE 02/05 [place] [facility] [place] [facility] Outpatient Encounter [id number] 02/09 [place] [facility] [place] [facility] Outpatient Encounter [id number] Danica TORRE 02/09 [place] [facility] [place] [facility] Outpatient Encounter [id number] 02/14 [place] [facility] [place] [facility] Outpatient Encounter [id number] 02/15 [place] [facility] [place] [facility] Outpatient Encounter [id number] 02/19 [place] [facility] [place] [facility] Outpatient Encounter [id number] 02/20 [place] [facility] [place] [facility] Outpatient Encounter [id number] 02/20 [place] [facility] [place] [facility] Outpatient Encounter [id number] 02/20 [place] [facility] [place] [facility] Outpatient Encounter [id number] 02/20 [place] [facility] [place] [facility] Outpatient Encounter [id number] 02/21 [place] [facility] [place] [facility] QNHP OL DIG ASSMT&MGMT 5-10 [id number] Diagnos is: ICD-10- CM E11.9 Type 2 diabete s mellitu s without complic ations< br/> HARDER,SIVA LY 02/22 [place] [facility] PRO PHONE CALL 11-20 MIN [phone] Diagnos is: ICD-10- CM I50.9 Heart failure , unspeci fied
HENRICH,BR ANDON M 02/23 [facility] ([facility] [place] [facility] Outpatient Encounter [id number] 02/26 [place] [facility] [place] [facility] Outpatient Encounter [id number] 03/01 [place] [facility] [place] [facility] Outpatient Encounter [id number] SA TRINO RA R 03/09 [place] [facility] [place] [facility] Outpatient Encounter [id number] 03/14 [place] [facility] [place] [facility] Outpatient Encounter [id number] SA TRINO RA R 04/12 [place] [facility] [place] [facility] Outpatient Encounter [id number] SA TRINO RA R 04/16 [place] [facility] [place] [facility] Outpatient Encounter [id number] TRINO RA R 05/01 [place] [facility] [place] [facility] Outpatient Encounter [id number] 07/11 [place] [facility] [place] [facility] Outpatient Encounter [id number] [place] [facility] [place] [facility] Outpatient Encounter [id number] 07/12 [facility] [place] [facility] HC PRO PHONE CALL 5-10 MIN [id number] Diagnos is: ICD-10- CM 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
LICOERISVIVRADHA Frey [facility]PAIR/MOD IFYING [id number] Diagnos is: ICD-10- CM 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
CARY CORCORAN C 08/09 [facility] MARIA T IS [facility] HEAR[facility] AID FITTING/CH ECKING [id number] Diagnos is: ICD-10- CM 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
Sy MAKI 09/17 [facility] Social History Combined list of available smoking, tobacco, and other social history from Department of Defense and Veterans Affairs facilities. Social History Type Response Date Comment [facility] e Tobacco smoking status ALIS VA-TOBACCO FORMER USER 11/23/2022 [facility] ([facility]) History of tobacco use [place]-TOBACCO QUIT 1 5 YRS OR MORE 11/23/2022 [facility] ([facility]) History of tobacco use VA-TOBACCO FORMER USER 11/29/2021 [facility] ([facility]) History of tobacco use VA-TOBACCO FORMER USER 10/21/2020 [facility] ([facility])
--- OUTSIDE RECORDS SUMMARY | 2023-09-19 09:02 | XMS_ITS | Clinical Summary ---
Author Name Unknown Organization [employer] [facility] Address [place], [place] [address] Care Team Providers Care Library Media Technician Name Role Phone VotelMelquiades MD Primary Care Provider + Nurses, Advanced Heart Failure Unavailable + Shade Manuel MD Unavailable [phone] Allergies No known active allergies Medications Medication Sig Dispensed Refills Start Date End Date Status blood-glucose meterIndications:T ype 2 diabetes mellitus with complication (HC) Ascensia Glucometer, Dispense meter, test strips, lancets covered by pt ins. 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 11/25/2019 HTN (hypertension) 10/28/2015 Hyperlipidemia LDL goal <70 10/28/2015 Adenomatous colon polyp 04/13/2015 Overview: Colonoscopy 04/2015 polyps repeat in 5 years Colonoscopy 03/2020 polyps, repeat in 5 years Background diabetic retinopathy(362.01) 07/10/19 08 Unspecified hearing loss 07/10/2007 Coronary atherosclerosis of unspecified type of vessel, coquille or graft Overview: 4 vessel CABG 2001 Lexiscan only for cardiac evaluation - no treadmill Other ill-defined and unknow n causes of morbidity and mortality Impotence of organic origin Resolved Problems Problem Noted Date Diagnosed Date Resolved Date Type 2 diabetes mellitus with complication 11/16/2017 12/22/2022 Heart disease, unspecified 0 07/10/2007 Encounters Date Type Department Care Team Description 09/19/2023 Telephone [facility] [address] [place] [address] Melquiades Man MD 09/17/2023 Telephone [facility] [address] [place] [address] Melquiades Man MD orders (wound care 2 times per week) 09/13/2023 1:00 PM CDT - 09/13/2023 11:59 PM T Hospital [facility] [address] [place] [address] Melquiades Man MD Tonsfeldt, Isabelle, PT 09/13/2023 Travel 09/10/2023 12:53 PM CDT - 09/10/2023 11:59 PM T Hospital Encounter [facility] ? [facility] [address] [place] [address] VoteMelquiades lewis MD Tonsfeldt, Isabelle, PT 09/10/2023 Travel 09/06/2023 9:27 AM CDT - 09/06/2023 11:59 PM T Hospital Encounter [facility] [address] [place] [address] Melquiades Man MD Tonsfeldt, Isabelle, PT 09/06/2023 Travel 08/31/2023 Telephone [facility] [address] [place] [address] Melquiades Man MD ORDERS 08/23/2023 12:46 PM CDT - 08/23/2023 11:59 PM CDT Hospital Encounter [facility] ? [facility] [address] [place] [address] Melquiades Man MD [facility] History of leg amputation (HC) 08/23/2023 Travel 08/17/2023 Telephone [facility] [address] [place] [address] Melquiades Man MD Home Care ([facility]) 08/08/2023 Telephone [facility] [address] [place] [address] Melquiades Man MD 08/01/2023 Orders Only [facility] Scanner 1 scan: (1-Ord) [facility], 08/01/2023 07/31/2023 Telephone [facility] [address] [place] [address] Melquiades Man MD 07/27/2023 11:30 AM CDT [facility] [place] [address] Shade Manuel MD CV Heart Failure Est (6 mo f/u, discuss recent med changes. ) 07/27/2023 10:45 AM CDT Orders Only [facility] Lizzie Mackay [address] [place] [address] Lab 07/27/2023 Travel 07/24/2023 Telephone [facility] [address] [place] [address] Melquiades Man MD 07/24/2023 Refill [facility] [address] [place] [address] Melquiades Man MD Refill Request (Fiasp Flextouch Pen Inj 3ml ) 07/20/2023 1:00 PM PRINCIPAL NETWORK ARCHITECT Telemedicine [facility] [address] [place] [address] Santana Nails MD Wound Check 07/20/[address] [address] Melquiades Man MD Refill Request; NOVOLOG FLEXPEN 07/20/[address] [address] Ezequiel Nye, AuD Hearing Aid 07/19/[address] [address] Melquiades Man MD 07/18/[address] [address] Melquiades Man MD Refill Request (Basaglar 100 U/ML Kwikpen INJ 3ml) 07/17/2023 2:05 PM PRINCIPAL NETWORK ARCHITECT Office Visit [address] [address] Melquiades Man MD Medication Management; Follow Up (Discharged from half-way 06/20/23, left foot wound developed while at the half-way) 07/17/[address] [address] Melquiades Man MD Refill Request (insulin) 07/17/2023 Travel 07/17/[address] [address] Melquiades Man MD Form 07/12/[address] [address] Melquiades Man MD 07/11/[address] [address] Ezequiel Nye AuD 'S ASSOCIATION (AUTHORIZATION) 07/10/2023 Telephone [facility] [address] [place] [address] Melquiades Man MD 07/05/[address] [address] Melquiades Man MD Home Care 07/03/[address] [address] Melquiades Man MD Follow Up (orders) 07/02/2023 Telephone [facility] [address] [place] [address] Santana Nails MD Appointment 07/02/[address] [address] Ezequiel Nye, AuD Referral 07/01/[address] [address] Kimberly Hurtado MD 07/01/2023 Nurse Triage [address] [address] Melquiades Man MD High Blood Sugar 06/28/[address] [address] Melquiades Man MD 06/25/[address] [address] Melquiades Man MD ACC Order Request 06/22/[address] [address] Melquiades Man MD Outside Order 06/21/[address] [address] Ezequiel Nye, AuD Form (Referral for services form ( [facility] )) from Last 3 Months Immunizations Name Administration Dates Next Due COVID-19 vaccine (Moderna 100mcg/0.5mL) PF, MDV 03/09/2021 COVID-19 vaccine (Moderna 50 mcg/0.5mL) 12YO+ BIVALENT PF, MDV 03/29/2022 COVID-19 vaccine (Pfizer-Bio NTech 30mcg/0.3mL) PF, MDV 03/09/2021,07/24/2020,07/03/2020 COVID-19 vaccine Comirnaty (MyFuelUp-BioNTech 30mcg/0.3mL) 12YO+ [id number] Formula PF, SDV, PFS 03/05/2023 Influenza Virus, [...] Brother kidney problems Heart Disease Father 1st [place] at 65 d 77 yo CHF Diabetes Mother Heart Disease Mother d 64 yo [place] Genetic Other There is a posi tive [...] T Respiratory Rate 24 05/03/2023 7:04 AM PRINCIPAL NETWORK ARCHITECT Oxygen Saturation 100% 07/27/2023 11:51 AM CDT Inhaled Oxygen Concentration - - Weight 81.6 kg (180 lb) 07/27/2023 11:51 AM CDT pt reported Height 175.3 cm (5' 9.02) 07/27/2023 11:51 AM C DT Body Mass Index 26.57 07/27/2023 11:51 AM CDT Plan of Treatment Upcoming Encounters Date Type Department Care Team (Late st Contact Info) Description 09/20/2023 11:45 AM CDT Appointment [facility] [address] [place] [address] Zoila Grace, PT [address] [place] [address] 09/24/2023 1:00 PM CDT [facility]ment [facility] [address] [place] [address] Zoila Grace, PT [address] [place] [address] 09/27/2023 1:00 PM CDT Appointment [facility] [address] [place] [address] Zoila Grace, PT [address] [place] [address] 10/01/2023 1:00 PM CDT Appointment [facility] [address] [place] [address] Zoila Grace, PT [address], [place] [address] 10/04/2023 1:45 PM CDT Appointment [facility] [address] [place] [address] Zoila Grace, PT [address], [place] [address] 10/11/2023 1:00 PM CDT Appointment [facility] [address] [place] [address] Zoila Grace, PT [address] [place] [address] 10/15/2023 1:00 PM CDT [facility]ment [facility] [address] [place] [address] Zoila Grace, PT [address] [place] [address] 10/18/2023 1:00 PM CDT Appointment [facility] [address] [place] [address] Fiorella Nicholas, PT [address] [place] [address] 10/22/2023 1:00 PM CDT Appointment [facility] [address] [place] [address] Fiorella Nicholas, PT [address] [place] [address] 10/25/2023 1:00 PM CDT Appointment [facility] [address] [place] [address] Fiorella Nicholas, PT [address] [place] [address] 10/29/2023 1:00 PM CDT Appointment [facility] [address] [place] [address] Fiorella Nicholas, PT [address] [place] [address] 11/01/2023 1:00 PM CDT Appointment [facility] [address] [facility] [place] [address] Fiorella Nicholas, PT [address] [place] [address] 11/05/2023 1:00 PM CDT Appointment [facility] [address] [place] [address] Fiorella Nicholas, PT [address] [place] [address] Health Maintenance Due Date Last Done Comments [...] pg/mL 07/27/2023 11:09 PM CDT [facility] [employer] [facility] Blood BLOOD SPECIMEN / Unknown Butterfly / Unknown 07/27/2023 10:49 AM CDT 07/27/2023 10:50 AM CDT Narrative [facility] - 07/27/2023 11:09 PM CDT The [...] failure. ? Melquiades Man MD SEND OUTS [facility] [address] [place] [address], * (ABNORMAL) BASIC METABOLIC PANEL (07/27/2023 10:49 AM CDT) SODIUM 137 136 - 145 mmol/L 07/27/2023 11:08 PM CDT [facility] POTASSIUM 4.4 3.5 - 5.1 mmol/L 07/27/2023 11:08 PM T [facility] CHLORIDE 94(L) 98 - 107 mmol/L 07/27/2023 11:08 PM T [facility] CO2,TOTAL 26 22 - 29 mmol/L 07/27/2023 11:08 PM T [facility] ANION GAP 17 5 - 18 07/27/2023 11:08 PM T [facility] GLUCOSE 317(H) 70 - 99 mg/dL 07/27/2023 11:08 PM T [facility] CALCIUM 10.1 8.8 - 10.2 mg/dL 07/27/2023 11:08 PM T [facility] BUN 52(H) 8 - 23 mg/dL 07/27/2023 11:08 PM T [facility] CREATININE 1.74(H) 0.70 - 1.20 mg/dL 07/27/2023 11:08 PM T [facility] BUN/CREAT RATIO 30(H) 10 - 20 11:08 PM T [facility] eGFR 39(L) >90 mL/min/1.7 3m2 07/27/2023 11:08 PM CDT [facility] Comment:As of 2021, eG FR [...] 10:50 AM CDT Melquiades Man MD CHEMISTRY [facility] 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
--- OUTSIDE RECORDS SUMMARY | 2023-09-19 09:02 | XMS_ITS | Clinical Summary ---
Author Name Unknown Organization [facility] Address [address] [place] [address] Care Team Providers Care Cotton Stomper Name Role Phone Elsewhere, Pcp Primary Care Provider Unavailabl e Source Comments Patient records contain information from all sites at [facility]. For routine questions regarding patient records, call [phone] during business hours, M-F 8:00 AM - 5:00 PM Central Time. Record requests for emergency care only can be directed to [phone] at any time.[facility] Allergies No known active allergies Medications Medication [...] Heel: Area continues to improve. Wound measures [id number]. 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 Woods was admitted to [facility] April 10 following BK right [...] was 0.92 in April 2023. 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 Therefore, we will increase levothyroxine 50mcg to 75mcg and rechecked TSH in 6 weeks. Nursing instructed to continue monitoring for symptoms of hypothyroidism and contact [place] provider if any concerns. Amputation Toe Status [...] and palpitation. Atherosclerotic Heart Diseas e Of [place] Coronary Artery Without Angina Pectoris 01/15/2023 Overview: [...] [facility] anticoagulation on apixaban Blast Furnace Keeper Use Of Insulin Active 12/09/2022 Overview: On [...] control but to prevent hypoglycemia. Atherosclerosis Of [place] Ar teries Of Other Extremities With Ulceration [...] for COVID-19 12/27/2022. Treated with remdesivir at [facility]. Anemia 01/16/2023 04/12/2023 Overview: Lab Results Component [...] 05/24/2023 Overview: Onychomycosis of toenails; Original Code: [id number] Original Codesystem: SNOMED CT Classification: Medical Confirmation [...] Comments Blood Pressure 107/66 06/18/2023 1:10 PM ENTRY LEVEL ACCOUNT EXECUTIVE Pulse 78 06/18/2023 1:10 PM ENTRY LEVEL ACCOUNT EXECUTIVE Temperature 36.6 ??C (97.8 ??F) 06/18/2023 1:10 PM CS T Respiratory Rate 16 06/18/2023 1:10 PM ENTRY LEVEL ACCOUNT EXECUTIVE Oxygen Saturation 95% 06/18/2023 1:10 PM ENTRY LEVEL ACCOUNT EXECUTIVE Inhaled Oxygen Concentration - - Weight 75.8 kg (167 lb) 06/18/2023 1:10 PM ENTRY LEVEL ACCOUNT EXECUTIVE Height 175.3 cm (5' 9) 04/12/2023 3:21 PM ENTRY LEVEL ACCOUNT EXECUTIVE Body Mass Index 24.66 04/12/2023 3:21 PM ENTRY LEVEL ACCOUNT EXECUTIVE Plan of Treatment Health Maintenance Due Date Last Done Comments Hepatitis B Vaccines (1 of 3 - Risk 3-dose series) 2001 COVID-19 Vaccine (2022-2 4 season) 2023 03/29/2022, 03/09/2021, 07/24/2020, Additional history exists Influenza Vaccine (#1) 2023 2, 03/09/2021, 03/09/2021, Additional history exists Fall Risk Screen (Annual) 05/14/2023 DTaP,Tdap,and Td Vaccines (2 - Td or Tdap) 01/21/2031 01/21/2021, 03/06/2006 Pneumococcal vaccine (65+ years) Completed 01/21/2015, 02/09/2011, 03/06/2006 Zoster Vaccines Completed 01/21/2021, 10/21/2020 Advance Directives For more information, please contact: [phone] * DNR/DNI (Latest Code Status on File) Date Activated Date Inactivated Comments 05/24/2023 6:14 PM * DNR/DNI Date Activated Date Inactivated Comments 04/12/2023 4:11 PM 04/16/2023 7:15 AM Care Teams Cotton Stomper Relationship Specialty Start Date End Date Elsewhere, Pcp PCP - General Internal Medicine 08/28/23
--- OUTSIDE RECORDS SUMMARY | 2023-09-19 09:02 | XMS_ITS | Referral Summary ---
Author Name Unknown Organization [facility] Address [address] [place] [address] Care Team Providers Care Helminthology Teacher Name Role Phone Elsewhere, Pcp Primary Care Provider Unavailabl e Source Comments Patient records contain information from all sites at [facility]. For routine questions regarding patient records, call [phone] during business hours, M-F 8:00 AM - 5:00 PM Central Time. Record requests for emergency care only can be directed to [phone] at any time.[facility] Allergies No known active allergies Medications Medication [...] Heel: Area continues to improve. Wound measures 1.5nqT3zm. Edges well defined, attached and 100% re-epithelialized [...] will follow up with his PCP in [place] (Current) Anticoagulant Treatment 08/2022 Overview: On apixaban [...] standard wheelchair Mr. Woods was admitted to [facility] April 10 following BK right lower [...] Last T4 was 0.92 in April 2023. president [place] confirmed levothyroxine is given every morning (6am) without other medications. Therefore, we will increase levothyroxine 50mcg to 75mcg and rechecked TSH in 6 weeks. Nursing instructed to continue monitoring for symptoms of hypothyroidism and contact [place] provider if any concerns. 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 [...] and palpitation. Atherosclerotic Heart Diseas e Of [place] Coronary Artery Without Angina Pectoris 01/15/2023 Overview: [...] 6 Anticoagulation: Apixaban Last Assessment & Plan: [facility] anticoagulation on apixaban [place] Use Of Insulin Active 12/09/2022 Overview: On [...] control but to prevent hypoglycemia. Atherosclerosis Of [place] Ar teries Of Other Extremities With Ulceration [...] for COVID-19 12/27/2022. Treated with remdesivir at [facility]. Anemia 01/16/2023 04/12/2023 Overview: Lab [...] 05/24/2023 Overview: Onychomycosis of toenails; Original Code: [id number] Original Codesystem: SNOMED CT Classification: Medical Confirmation [...] Comments Blood Pressure 107/66 06/18/2023 1:10 PM INDUSTRIAL TRUCK OPERATOR Pulse 78 06/18/2023 1:10 PM INDUSTRIAL TRUCK OPERATOR Temperature 36.6 ??C (97.8 ??F) 06/18/2023 1:10 PM CS T Respiratory Rate 16 06/18/2023 1:10 PM INDUSTRIAL TRUCK OPERATOR Oxygen Saturation 95% 06/18/2023 1:10 PM INDUSTRIAL TRUCK OPERATOR Inhaled Oxygen Concentration - - Weight 75.8 kg (167 lb) 06/18/2023 1:10 PM INDUSTRIAL TRUCK OPERATOR Height 175.3 cm (5' 9) 04/12/2023 3:21 PM INDUSTRIAL TRUCK OPERATOR Body Mass Index 24.66 04/12/2023 3:21 PM INDUSTRIAL TRUCK OPERATOR Plan of Treatment Not on file Advance Directives For more information, please contact: [phone] * DNR/DNI (Latest Code Status on File) Date Activated Date Inactivated Comments 05/24/2023 6:14 PM * DNR/DNI Date Activated Date Inactivated Comments 04/12/2023 4:11 PM 04/16/2023 7:15 AM Care Teams Helminthology Teacher Relationship Specialty Start Date End Date Elsewhere, Pcp PCP - General Internal Medicine 08/28/23
--- OUTSIDE RECORDS SUMMARY | 2023-09-19 09:02 | XMS_ITS | Encounter Summary ---
Author Name Unknown Organization [facility] Address [address] [place] [address] Care Team Providers Care Manager Agricultural Name Role Phone Santosumdarrell Natalio Mishra APRN, C.N.P., M.S.N. Primary C are Provider Reason for Visit * Appointment Request (Routine) - Closed Specialty Diagnoses / Procedures Referred By Edin mishra Referred To Contact Fdc Facility Referral ID Status Reason Start Date Expiration Date Visits Re quested Visits Authorized [id number] Closed 05/23/2023 05/22/2024 1 1 Encounter Details Date Type Department Care Team (Latest Contact Info) Description 05/24/2023 3:00 PM SUPERVISOR CUTTING AND SEWING ROOM External Outreach Senior [facility] in [facility] [address], [place] [address] Hannah Castillo APRN, C.N.P. [address] [place] [address] [place] [phone] 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 [...] Comments Blood Pressure 107/66 06/18/2023 1:10 PM SUPERVISOR CUTTING AND SEWING ROOM Pulse 78 06/18/2023 1:10 PM SUPERVISOR CUTTING AND SEWING ROOM Temperature 36.6 ??C (97.8 ??F) 06/18/2023 1:10 PM CS T Respiratory Rate 16 06/18/2023 1:10 PM SUPERVISOR CUTTING AND SEWING ROOM Oxygen Saturation 95% 06/18/2023 1:10 PM SUPERVISOR CUTTING AND SEWING ROOM Inhaled Oxygen Concentration - - Weight 75.8 kg (167 lb) 06/18/2023 1:10 PM SUPERVISOR CUTTING AND SEWING ROOM Height - - Body Mass Index 24.66 04/12/2023 3:21 PM SUPERVISOR CUTTING AND SEWING ROOM documented in this encounter Patient Instructions * Patient Instructions* Hannah Castillo APRN, C.N.P. - 05/24/2023 3:00 PM SUPERVISOR CUTTING AND SEWING ROOM ORDERS and INSTRUCTIONS: Face to face Discharge [...] wheelchair DME Medical Justification: Manual wheelchair A [id number] encounter was conducted on 05/24/23 by Hannah [...] 25 mcg tabs until discharge from the prison Electronically signed by: Hannah Castillo APRN, C.N.PCarito 05/24/23 6:17 PM SUPERVISOR CUTTING AND SEWING ROOM [facility] documented in this encounter H&P Notes * Hannah Castillo APRN, C.N.Dell. - 05/24/2023 3:00 PM CST CHIEF COMPLAINT / REASON FOR VISIT [facility] Discharge Visit Visit Type: In Person: Face to Face SUBJECTIVE HISTORY OF PRESENT ILLNESS Discharge visit updated 06/18/23 with face to face visit on 06/18/23 Today's narrative history (obtained from Patient, Nursing, and PT/OT): From record: Rosalina was admitted to [facility] on 04/30 with abdominal pain found secondary to constipation. He had acute kidney injury and was hydrated and furosemide was held with dosage decreased. He also had urine infection and was treated with IV antibiotics. He returned to [facility] on 05/03 to continue therapies. He [...] status #5 Alf Use Of Insulin Active ([facility]) Overview: On insulin glargine and aspart started during hospitalization December 2022. #6 Hypothyroidism Overview: Component Ref Range & Units 1 mo ago 04/24/23 1 mo ago 04/13/23 2 mo ago 03/11/23 EXT TSH, Sensitive, S 0.27 - 4.20 uIU/mL 16.80 18.20 11.70 #7 Congestive Heart Failure ([facility]) Overview: EF: ECHO with EF [...] Diabetes Mellitus Type 2 With Diabetic Polyneuropathy ([facility]) Overview: Lab Results Component Value [...] nursing note reviewed. Exam conducted with a director of catering present. Constitutional Appearance: Normal appearance. HENT Head: [...] standard wheelchair Mr. Woods was admitted to [facility] April 10 following BK right [...] site #2 Amputation Toe Status Post Left ([facility]) Assessment & Plan: Stable #3 Wound Ankle Open Subsequent Left Assessment & Plan: Stable #4 Advanced Care Planning Assessment & Plan: He will be full code #5 Alf Use Of Insulin Active ([facility]) Assessment & Plan: Nurse reports he is nonadherent to his diabetic diet. He is also on a sliding scale. #6 Hypothyroidism Assessment & Plan: Increase levothyroxine to 50 mcg daily. penitentiary may give two 25 mcg tablets to equal 50 mcg. He will be discharging in a week #7 Congestive Heart Failure ([facility]) Assessment & Plan: Stable on current meds #8 Atrial Fibrillation Other Persistent ([facility]) Assessment & Plan: prison anticoagulation on apixaban #9 Dementia ([facility]) Assessment & Plan: He has low hearing which could contribute to him not understanding #10 Diabetes Mellitus Type 2 With Diabetic Polyneuropathy ([facility]) Assessment & Plan: Insulin dependent not always compliant with diet. Glargine will be increased to 17 units. #11 Hyperglycemia Assessment & Plan: A1C 7.2 He will follow up with his PCP in [place] #12 Hyperkalemia #13 Hyperlipidemia Assessment & Plan: Stay on statin #14 Weakness General Assessment & Plan: He is getting stronger with therapy. He will continue therapy when he gets his prosthesis. He will have a wheelchair upon discharge. #15 Peripheral Vascular Disease ([facility]) Assessment & Plan: Monotor Other [...] were ordered. Follow up with PCP in [place] and [facility] as scheduled. PATIENT EDUCATION [...] orders to facility. Total time 45 minutes. [facility] documented in this encounter Miscellaneous Notes * Assessment & Plan Note - Hannah Castillo APRN, C.N.P. - 05/24/2023 6:08 PM CSTAssociated Problem(s): Peripheral Vascular Disease (HCC) Monotor [facility] * Assessment & Plan Note - Hannah Castillo APRN, C.N.P. - 05/24/2023 6:05 PM CSTAssociated Problem(s): Weakness General He is getting stronger with therapy. He will continue therapy when he gets his prosthesis. He will have a wheelchair upon discharge. [facility] * Assessment & Plan Note - Hannah Castillo APRN, C.N.P. - 05/24/2023 6:01 PM CSTAssociated Problem(s): Hyperlipidemia Stay on statin [facility] * Assessment & Plan Note - Hannah Castillo APRN, C.N.P. - 05/24/2023 6:00 PM CSTAssociated Problem(s): Hyperglycemia A1C 7.2 He will follow up with his PCP in [place] [facility] * Assessment & Plan Note - Hannah Castillo APRN, C.N.P. 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 Glargine will be increased to 17 units. [facility] * Assessment & Plan Note - Hannah Castillo APRN, C.N.P. - 05/24/2023 5:57 PM CSTAssociated Problem(s): Dementia (HCC) He has low hearing which could contribute to him not understanding [facility] * Assessment & Plan Note - Hannah Castillo APRN, C.N.P. - 05/24/2023 5:53 PM CSTAssociated Problem(s): Atrial Fibrillation Other Persistent (HCC) prison anticoagulation on apixaban [facility] * Assessment & Plan Note - Hannah Castillo APRN, C.N.P. - 05/24/2023 5:52 PM CSTAssociated Problem(s): Congestive Heart Failure (HCC) Stable on current meds [facility] * Assessment & Plan Note - Hannah Castillo APRN C.N.P. - 05/24/2023 5:24 PM CSTAssociated Problem(s): Hypothyroidism Increase levothyroxine to 50 mcg daily. penitentiary may give two 25 mcg tablets to equal 50 mcg. He will be discharging in a week [facility] SEWING ROOM * Assessment & Plan Note - Hannah Castillo APRN, C.N.P. - 05/24/2023 5:20 PM CSTAssociated Problem(s): Alf Use Of Insulin Active (HCC) Nurse reports he is nonadherent to his diabetic diet. He is also on a sliding scale. [facility] C[facility] SEWING ROOM * Assessment & Plan Note - Hannah Castillo APRN, C.N.P. - 05/24/2023 5:19 PM CSTAssociated Problem(s): Amputation Toe Status Post Left (HCC) Stable [facility] * Assessment & Plan Note - Hannah Castillo APRN, C.N.P. 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 He will need a standard wheelchair Mr. Woods was admitted to [facility] April 10 following BK right [...] continue to provide support to amputation site [facility] * Assessment & Plan Note - Hannah Castillo APRN, C.N.P. - 05/24/2023 5:15 PM CSTAssociated Problem(s): Advanced Care Planning He will be full code [facility] * Assessment & Plan Note - Hannah Castillo APRN, C.N.P. - 05/24/2023 5:14 PM CSTAssociated Problem(s): Wound Ankle Open Subsequent Left (Resolved 05/24/2023) Stable [facility] * ACP (Advance Care Planning) - Hannah Castillo APRN, C.N.P. - 05/24/2023 3:00 PM CST Advance Care Planning Reason for Conversation This patient is a 83 y.o. year old male that presents for Discharge prison visit. 1. 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 [address] [place] [phone] PCP - General Internal Medicine 04/10/23 08/27/23 documented as of this encounter
--- OUTSIDE RECORDS SUMMARY | 2023-09-19 09:02 | XMS_ITS | Encounter Summary ---
Author Name Unknown Organization [facility] Address [address] [place] [address] Care Team Providers Care Microbiology Quality Control Technician Name Role Phone Santosumdarrell Natalio Mishra APRN, C.N.P., M.S.N. Primary C are Provider Reason for Visit * Appointment Request (Routine) - Closed Specialty Diagnoses / Procedures Referred By Edin mishra Referred To Contact Residential Facility Referral ID Status Reason Start Date Expiration Date Visits Re quested Visits Authorized [id number] Closed 06/18/2023 06/17/2024 1 1 Encounter Details Date Type Department Care Team (Latest Contact Info) Description 06/18/2023 3:00 PM SPOOLER OPERATOR External Outreach Senior Services in [facility] [address], [place] [address] Hannah Castillo APRN, C.N.P. 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; Hypertension Heart Disease With Congestive Heart Failure (HCC); Hyperlipidemia; Hyperglycemia; Diabetes Mellitus Type 2 With Diabetic Polyneuropathy (HCC); Dementia (HCC); Congestive Heart Failure (HCC); Atrial Fibrillation Other Persistent (HCC); Atherosclerotic Heart Disease Of [place] Coronary Artery Without Angina Pectoris; 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 - 06/18/2023 3:00 PM SPOOLER OPERATOR ORDERS and INSTRUCTIONS: Face to face discharge [...] Hannah Castillo APRN, C.N.PCarito 06/18/23 2:09 PM SPOOLER OPERATOR LER OPERATOR documented in this encounter Progress Notes * Hannah Castillo APRN, C.NLucio - 06/18/2023 3:00 PM CST CHIEF COMPLAINT / REASON FOR VISIT [facility] Discharge Visit Visit Type: In Person: Face to Face SUBJECTIVE HISTORY OF PRESENT ILLNESS Today's narrative history (obtained from Patient, Nursing, and PT/OT): From record: Rosalina was admitted to [facility] on 04/30 with abdominal pain found secondary to constipation. He had acute kidney injury and was hydrated and furosemide was held with dosage decreased. He also had urine infection and was treated with IV antibiotics. He returned to [facility] on 05/03 to continue therapies. [...] side. #2 Amputation Toe Status Post Left ([facility]) Overview: History of amputation of toe #3 Wound Ankle Open Subsequent Left Overview: 04/25/23: Nursing reported left lower calf/ankle redness. 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 #6 Hypothyroidism Overview: Component Ref Range & Units 1 mo ago 04/24/23 1 mo ago 04/13/23 2 mo ago 03/11/23 EXT TSH, Sensitive, S 0.27 - 4.20 uIU/mL 16.80 18.20 11.70 #7 Congestive Heart Failure ([facility]) Overview: EF: ECHO with EF 10-20% [...] nursing note reviewed. Exam conducted with a hogshead hand present. Constitutional Appearance: Normal appearance. HENT Head: [...] standard wheelchair Mr. Woods was admitted to [facility] April 10 following BK right lower [...] daily. 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 He is also on a sliding scale. #6 Hypothyroidism Assessment & Plan: Increase levothyroxine to 50 mcg daily. alf may give two 25 mcg tablets to equal 50 mcg. He will be discharging in a week #7 Congestive Heart Failure ([facility]) Assessment & Plan: Stable on current meds #8 Atrial Fibrillation Other Persistent ([facility]) Assessment & Plan: terminal clerk anticoagulation on apixaban #9 Dementia ([facility]) Assessment & Plan: He has low hearing which could contribute to him not understanding #10 Diabetes Mellitus Type 2 With Diabetic Polyneuropathy ([facility]) Assessment & Plan: Insulin dependent not always compliant with diet. Glargine will be increased to 17 units. #11 Hyperglycemia Assessment & Plan: A1C 7.2 He will follow up with his PCP in [place] #12 Hyperkalemia #13 Hyperlipidemia Assessment & Plan: Stay on statin #14 Weakness General Assessment & Plan: He is getting stronger with therapy. He will continue therapy when he gets his prosthesis. He will have a wheelchair upon discharge. #15 Peripheral Vascular Disease ([facility]) Assessment & Plan: Monotor Other orders [...] were ordered. Follow up with PCP in [place] and [facility] as scheduled. PATIENT EDUCATION Ready to [...] orders to facility. Total time 50 minutes. 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 Hypertension Heart Disease With Congestive Heart Failure (HCC) Hyperlipidemia Hyperglycemia Diabetes Mellitus Type 2 With Diabetic Polyneuropathy (HCC) Dementia (HCC) Congestive Heart Failure (HCC) Atrial Fibrillation Other Persistent (HCC) 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 [address] [place] [phone] PCP - General Internal Medicine 04/10/23 08/27/23 documented as of this encounter
--- OUTSIDE RECORDS SUMMARY | 2023-09-19 09:02 | XMS_ITS | Encounter Summary ---
Author Name Unknown Organization [facility] Address [address] [place] [address] Care Team Providers Care Abrasive Water Jet Cutter Operator Name Role Phone Natalio Motta APRN C.N.PCarito, M.S.N. Primary C are Provider Reason for Visit * Reason Onset Date Comments care home medication reconciliation Urinary Symptom 06/11/2023 * Appointment Request (Routine) - Closed Specialty Diagnoses / Procedures Referred By Edin salmeron Referred To Contact [facility] Facility Referral ID Status Reason Start Date Expiration Date Visits Re quested Visits Authorized [id number] Closed 04/10/2023 04/09/2024 1 1 Encounter Details Date Type Department Care Team (Latest Contact Info) Description 04/11/2023 3:00 PM PATIENT SERVICE REP External Outreach [facility] in [facility] [address] [place] [phone] Natalio Motta APRN, C.NLucio, M.S.N. [address] [place] [phone] 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 [...] And With Unspecified Stage Chronic Kidney Disease; Assisted Stay Certification Exam; Polypharmacy; Advanced Care Planning; [...] Comments Blood Pressure 112/72 04/12/2023 4:22 PM PATIENT SERVICE REP Pulse 85 04/12/2023 4:22 PM PATIENT SERVICE REP Temperature 36.6 ??C (97.8 ??F) 04/12/2023 4:22 PM CS T Respiratory Rate 18 04/12/2023 4:22 PM PATIENT SERVICE REP Oxygen Saturation 97% 04/12/2023 4:22 PM PATIENT SERVICE REP Room air Inhaled Oxygen Concentration - - Weight - - Height - - Body Mass Index - - documented in this encounter Progress Notes * Natalio Motta APRN, C.NLucio, M.S.N. - 04/11/2023 3:00 PM CST Encounter created to obtain urine specimen. ENT SERVICE REP documented in this encounter H&P Notes * Natalio Motta APRN C.N.P. - 04/11/2023 3:00 PM CST Images from the original note were not included. CHIEF COMPLAINT / REASON FOR VISIT [facility] Follow Up Visit Visit Type: In Person: Face to Face SUBJECTIVE HISTORY OF PRESENT ILLNESS Darek Bowers is a 82 y.o. male resident at [facility]. 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 Per EHR, patient has been dealing with foot ulcers and worsening gangrene of his third right toe since he has had his NSTEMI back in November,. Patient's reported they have been following at a wound clinic. They recently saw a vascular surgeon down at [place] who recommended Ortho foot to see him but that appointment cannot be made until April. He was seen again in wound clinic on 03/08/2023 at the outside hospital and felt the wound to be worsening so transferred to [facility] ED. 03/08/2023: In the ED, podiatry and [...] Family Member): Patient is seen today for usp medication reconciliation with his in attendance. Patient//nursing [...] check of right leg amputation at the [facility], 2nd Floor. [address] [place] [address] [place] [address] on 05/11/2023 at 10:00 AM. Please see the After Visit Summary for additional information. Please minutes early. Call [facility] at [phone] to reschedule as needed or for further [...] Disease Overview: Treatment: Metoprolol Goal: 120-130 #14 Assisted Stay Certification Exam Overview: Short-term stay. #15 [...] Blood pressure normotensive. Continue care plan. #12 Assisted Stay Certification Exam Assessment & Plan: Plans [...] extensive time spent on other activities: 70. ENT SERVICE REP documented in this encounter Miscellaneous Notes * [...] been working with PT and tolerating therapy. ENT SERVICE REP * Assessment & Plan Note - Natalio Motta APRN, C.N.P. - 04/12/2023 4:45 PM CSTAssociated Problem(s): Hypothyroidism Continue levothyroxine. TSH reordered. ENT SERVICE REP * Assessment & Plan Note - Natalio Motta APRN, C.N.P. - 04/12/2023 4:09 PM CSTAssociated Problem(s): Weakness General Verbalized improvement with weakness. We will continue therapy. ENT SERVICE REP * Assessment & Plan Note - Natalio Motta APRN, C.N.P. - 04/12/2023 4:08 PM CSTAssociated Problem(s): Assisted Stay Certification Exam Plans to discharge back home. Patient remains appropriate SNF resident. Order summary paperwork signed following our visit, this included review of medications and orders. Current comorbidities, ADL need/level of debility requires skilled care/therapy. Medications and labs all reviewed and appropriate related to comorbidities, unless otherwise indicated. Physician order sheet signed. Continue PT/OT therapy, nutrition intervention, skin protection, and fall prevention. ENT SERVICE REP * Assessment & Plan Note - Natalio Motta APRN, C.N.P. - 04/12/2023 4:07 PM CSTAssociated Problem(s): Hypertensive Heart And Chronic Kidney Disease Without Heart Failure And WithUnspecified Stage Chronic Kidney Disease Images from the original note were not included. Blood pressure normotensive. Continue care plan. ENT SERVICE REP * Assessment & Plan Note - Natalio Motta APRN, C.N.P. - 04/12/2023 4:05 PM CSTAssociated Problem(s): Hyperkalemia (Resolved 05/24/2023) BMP ordered. ENT SERVICE REP * Assessment & Plan Note - Natalio Motta APRN, C.N.P. 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 Currently on Glipizide, showed and long-acting insulins. Blood sugar check 4 times daily. Nursing/patient denied episodes of hypoglycemia. We will continue care plan. ENT SERVICE REP * Assessment & Plan Note - Natalio Motta APRN, C.N.P. - 04/12/2023 4:01 PM CSTAssociated Problem(s): Congestive Heart Failure (HCC) No admission weight yet. Nursing to check patient's weight ENT SERVICE REP * Assessment & Plan Note - Natalio Motta APRN, C.N.P. - 04/12/2023 3:59 PM CSTAssociated Problem(s): Atrial Fibrillation Other Persistent (HCC) HR well controlled ranging from 82-85. Continue care plan. ENT SERVICE REP * Assessment & Plan Note - Natalio Motta APRN, C.N.P. - 04/12/2023 3:57 PM CSTAssociated Problem(s): Anemia Iron Deficiency Stable. Denied dizziness, lightheadedness, shortness of breaths and palpitation. ENT SERVICE REP * Assessment & Plan Note - Natalio Motta APRN C.N.P. - 04/12/2023 3:57 PM CSTAssociated Problem(s): Anemia (Resolved 04/12/2023) CBC reordered. Denied dizziness, lightheadedness, shortness of breaths or palpitation. ENT SERVICE REP * Addendum Note - Natalio Motta APRN, C.N.P., M.S.N. - 04/11/2023 3:00 PM CSTAddended by: NATALIO MOTTA on: 06/11/2023 09:41 AM Modules accepted: Orders, Level of Service ENT SERVICE REP documented in this encounter Plan of Treatment [...] And With Unspecified Stage Chronic Kidney Disease Assisted Stay Certification Exam Polypharmacy Advanced Care Planning Hypothyroidism Dysuria documented in this encounter Care Teams Abrasive Water Jet Cutter Operator Relationship Specialty Start Date End Date Natalio Motat APRN, C.NCaritoP., M.S.N. [address] [place] [phone] PCP - General Internal Medicine 04/10/23 08/27/23 documented as of this encounter
--- OUTSIDE RECORDS SUMMARY | 2023-09-19 09:02 | XMS_ITS | Encounter Summary ---
Author Name Unknown Organization [facility] Address [address] [place] [address] Care Team Providers Care Photo Cartographer Name Role Phone SantosumJessica ramírezNataliotashi Mishra APRN, C.N.P., M.S.N. Primary C are Provider Reason for Visit * Appointment Request (Routine) - Closed Specialty Diagnoses / Procedures Referred By Edin mishra Referred To Contact [facility] Facility Referral ID Status Reason Start Date Expiration Date Visits Re quested Visits Authorized [id number] Closed 06/13/2023 06/12/2024 1 1 Encounter Details Date Type Department Care Team (Latest Contact Info) Description 06/14/2023 10:00 AM CERTIFIED PROSTHETIST VICE PRESIDENT External Outreach Senior Services in [facility] [address], [phone] Hannah Castillo APRN, C.N.P. [address] [place] [address] [place] [phone] Pressure Injury (Ulcer) Of Left Heel Stage [...] Comments Blood Pressure 123/68 06/14/2023 9:54 AM CERTIFIED PROSTHETIST VICE PRESIDENT Pulse 68 06/14/2023 9:54 AM CERTIFIED PROSTHETIST VICE PRESIDENT Temperature 36.2 ??C (97.1 ??F) 06/14/2023 9:54 AM CS T Respiratory Rate 18 06/14/2023 9:54 AM CERTIFIED PROSTHETIST VICE PRESIDENT Oxygen Saturation - - Inhaled Oxygen Concentration - - Weight 77.4 kg (170 lb 9.6 oz) 06/14/2023 9:54 A M CERTIFIED PROSTHETIST VICE PRESIDENT Height - - Body Mass Index 25.19 04/12/2023 3:21 PM CERTIFIED PROSTHETIST VICE PRESIDENT documented in this encounter Patient Instructions * Patient Instructions* Hannah Castillo APRN, C.N.P. - 06/14/2023 10:00 AM CERTIFIED PROSTHETIST VICE PRESIDENT ORDERS and INSTRUCTIONS: Heel wound 1: Gently cleanse area with NS. Pat dry. 2. Skin prep to gonsalo-wound. 3. Santyl to wound bed only. 4. Place gauze over wound. 5. cover with island dressing. 6. Change dressing daily. Right stump wound Cleanse daily and apply a thin layer of silverstat and gauze. Electronically signed by: Hannah Castillo APRN, C.N.P. 06/15/23 4:20 PM CERTIFIED PROSTHETIST VICE PRESIDENT IFIED PROSTHETIST VICE PRESIDENT documented in this encounter Progress Notes * Hannah Castillo APRN, C.N.P. - 06/14/2023 10:00 AM CST CHIEF COMPLAINT / REASON FOR VISIT [facility] Follow Up Visit Visit Type: In [...] Heel: Area continues to improve. Wound measures [id number]. Edges well defined, attached and 100% re-epithelialized [...] orders to facility. Total time 30 minutes. IFIED PROSTHETIST VICE PRESIDENT documented in this encounter Miscellaneous Notes * Assessment & Plan Note - Hannah Castillo APRN, C.N.P. - 06/15/2023 4:18 PM CSTAssociated Problem(s): Other Complications Of Amputation Stump (HCC) The wound bed is clean. A thin layer of silver stat will be applied with a gauze. Change daily. IFIED PROSTHETIST VICE PRESIDENT * Assessment & Plan Note - Hannah [...] with home nursing for wound care . 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 [address] [place] [phone] PCP - General Internal Medicine 04/10/23 08/27/23 documented as of this encounter
--- OUTSIDE RECORDS SUMMARY | 2023-09-19 09:02 | XMS_ITS ---
Author Name Unknown Organization [facility] Address [address] [place] [address] Care Team Providers Care Life Advisor Name Role Phone Unavailable Unavailable Unavailable Surgery Details Not on file Complications Check Surgery Details section. Procedure Estimated Blood Loss Check Surgery Details section. Procedure Findings Check Surgery Details section. Procedure Specimens Taken Check Surgery Details section.
--- OUTSIDE RECORDS SUMMARY | 2023-09-19 09:02 | XMS_ITS | Encounter Summary ---
Author Name Unknown Organization [facility] Address [address] [place] [phone] Care Team Providers Care Cad Design Engineer Name Role Phone SantosumNatalio ramírez APRN C.N.PCarito, M.S.N. Primary C are Provider Reason for Visit * Reason Onset Date Comments Discharge Notice 05/23/2023 Encounter Details Date Type Department Care Team (Latest Contact Info) Description 05/23/2023 Clinical Communication Division of Community Internal Medicine, [facility] in [place], [place] [address] [place] [phone] Natalio Motta APRN, C.N.P., M.S.N. [address] [place] [phone] Discharge Notice Social History Tobacco Use Types [...] on filedocumented in this encounter Care Teams Cad Design Engineer Relationship Specialty Start Date End Date Natalio Motta APRN, C.N.PCarito, M.S.N. [address] [place] [phone] PCP - General Internal Medicine 04/10/23 08/27/23 documented as of this encounter
== END 2023-09-19 09:00 | disposition home or self-care (01) ==
LOC: WOUND 08:59
PROVIDERS: PCP Family Medicine; Visit Provider Surgery
DX: E11.621 Type 2 diabetes mellitus with foot ulcer (principal); L97.422 Non-pressure chronic ulcer of left heel and midfoot with fat layer exposed; Z79.4 Long term (current) use of insulin; Z79.84 Long term (current) use of oral hypoglycemic drugs
CPT/HCPCS: 97597

== ENCOUNTER 2023-09-26 09:09 | Outpatient (CLI) | payer MEDICARE, BC, SELFPAY ==
--- OUTSIDE RECORDS SUMMARY | 2023-09-26 09:12 | XMS_ITS | Continuity of Care Document ---
Author Name [facility] Organization [facility] Care Team Providers Care Profile Grinder Technician Name Role Phone [facility] Unavailable Unavailable Problems Combined list of problems from Department of [facility] and [facility] facilities. It does not include entries that were removed or entered in error. Problem Status Onset Date Problem Type Date of Resolution Comments Source Exposure to potentially hazardous substance ([facility] [id number]) Active 07/20/19 24 Condition Jul 20, 2023 Entered By: MECHELLE DEMPSEY Comment: [facility] Documentation Initiative [facility] CAD - Coronary Artery Disease ([facility] [id number]) Active Condition [place] ([facility]) CHF - Congestive Heart Failure ([facility] [id number]) Active Condition [facility]) Diabetes Mellitus Type 2 ([facility] [id number]) Active Condition [facility]) HTN - Hypertension ([facility] [id number]) Active Condition [place] ([facility]) Hyperlipidemia ([facility] [id number]) Active Condition [facility]) Long-term current use of insulin Active Condition [facility]) Peripheral neuropathy due to type 2 diabetes mellitus Active Condition [place] ([facility]) Diagnosis: ICD-10-CM H90.3 Sensorineural hearing loss, bilateral Active Diagnosis [facility] Diagnosis: ICD-10-CM I50.9 Heart failure, unspecified Active Diagnosis [facility]) Diagnosis: ICD-10-CM E11.9 Type 2 diabetes mellitus without complications Active Diagnosis [facility] Diagnosis: ICD-10-CM R26.89 Other abnormalities of gait and mobility Active Diagnosis [facility] ([facility]) Diagnosis: ICD-10-CM Z00.00 Encntr for general adult medical exam w/o abnormal findings Active Diagnosis [facility] ([facility]) Medications Combined list of outpatient medications from Department of [facility] and [facility] facilities.Medications provided include 1) outpatient medications [...] WOUND CARE ORDERS TOPICA LLThanh ACTIVE 02/16/2024 [id number] KATHY MURPHY 2022 40 [place] [...] Site Reaction Lot Number CVX Code Drug Babbitt Spinner Status Comments Source INFLUENZA, HIGH-DOSE, QUADRIVALENT 1 2021 197 complet ed [facility] COVID-19 (MODERNA), MRNA, LNP-S, BIVALENT, PF, 50 MCG/0.5 ML OR 25MCG/0.25 ML DOSE 1 2021 229 complet ed [facility] COVID-19 (PFIZER), MRNA, LNP-S, PF, 30 MCG/0.3 ML DOSE 3 2020 208 complet ed [facility] INFLUENZA, UNSPECIFIED FORMULATION 2020 88 complet ed [facility] TDAP 2020 115 complet ed [employer], [id number] , exp-2022 and given VIS dated 12/17/2020 [facility]) ZOSTER RECOMBINANT 2 2020 187 complet ed [facility]) ZOSTER RECOMBINANT 1 2020 187 complet ed [facility] ([facility]) COVID-19 (PFIZER), MRNA, LNP-S, PF, 30 MCG/0.3 ML DOSE 2 2020 208 complet ed [facility] COVID-19 (PFIZER), MRNA, LNP-S, PF, 30 MCG/0.3 ML DOSE 1 2020 208 complet ed [facility] INFLUENZA, UNSPECIFIED FORMULATION 2019 88 complet ed [facility] PNEUMOCOCCAL CONJUGATE PCV 13 2014 133 complet ed Per [facility] PNEUMOCOCCAL POLYSACCHARID E PPV23 2010 33 complet ed [facility] PNEUMOCOCCAL POLYSACCHARID E PPV23 2005 33 [...] Jan 23, 2023 02:00 PM Reporting Lab: [facility] [address] Performing Lab: [facility] [address] [place] ([facility]) BASIC METABOLIC PANEL+MG UREA NITROGEN [MASS/VOLUM E] IN SERUM OR PLASMA 35 8 - 26 01/23 H Specimen Type: PLASMA No comment entered. Ordering Provider: AILIN CHESTER Report Released Date/Time: Jan 23, 2023 02:00 PM Reporting Lab: [facility] [address] Performing Lab: [facility] [address] [place] ([facility]) BASIC METABOLIC PANEL+MG GLUCOSE [MASS/VOLUM E] IN SERUM OR PLASMA 239 70 - 100 01/23 H Specimen Type: PLASMA No comment entered. Ordering Provider: AILIN CHESTER Report Released Date/Time: Jan 23, 2023 02:00 PM Reporting Lab: [facility] [address] Performing Lab: [facility] [address] [place] ([facility]) BASIC METABOLIC PANEL+MG SODIUM [MOLES/VOLU ME] IN SERUM OR PLASMA 140 136 - 145 01/23 Specimen Type: PLASMA No comment entered. Ordering Provider: AILIN CHESTER Report Released Date/Time: Jan 23, 2023 02:00 PM Reporting Lab: [address] Performing Lab: [address] [place] [address] ([facility]) BASIC METABOLIC PANEL+MG POTASSIUM [MOLES/VOLU ME] IN SERUM OR PLASMA 5.1 3.5 - 5.1 01/23 Specimen Type: PLASMA No comment entered. Ordering Provider: AILIN CHESTER Report Released Date/Time: Jan 23, 2023 02:00 PM Reporting Lab: [address] Performing Lab: [address] ([place]) BASIC METABOLIC PANEL+MG CHLORIDE [MOLES/VOLU ME] IN SERUM OR PLASMA 109 98 - 107 01/23 H Specimen Type: PLASMA No comment entered. Ordering Provider: AILIN CHESTER Report Released Date/Time: Jan 23, 2023 02:00 PM Reporting Lab: [facility] [address] Performing Lab: [facility] [address] [place] ([facility]) BASIC METABOLIC PANEL+MG CARBON DIOXIDE, TOTAL [MOLES/VOLU ME] IN SERUM OR PLASMA 21 22 - 29 01/23 L Specimen Type: PLASMA No comment entered. Ordering Provider: AILIN CHESTER Report Released Date/Time: Jan 23, 2023 02:00 PM Reporting Lab: [facility] [address] Performing Lab: [facility] [address] [place] ([facility]) BASIC METABOLIC PANEL+MG CALCIUM [MASS/VOLUM E] IN SERUM OR PLASMA 9.4 8.4 - 10.2 01/23 Specimen Type: PLASMA No comment entered. Ordering Provider: AILIN CHESTER Report Released Date/Time: Jan 23, 2023 02:00 PM Reporting Lab: [facility] [address] Performing Lab: [facility] [address] [place] ([facility]) BASIC METABOLIC PANEL+MG MAGNESIUM [MASS/VOLUM E] IN SERUM OR PLASMA 1.7 1.6 - 2.6 01/23 Specimen Type: PLASMA No comment entered. Ordering Provider: AILIN CHESTER Report Released Date/Time: Jan 23, 2023 02:00 PM Reporting Lab: [facility] [address] Performing Lab: [facility] [address] [place] ([facility]) BASIC METABOLIC PANEL+MG ANION GAP IN SERUM OR PLASMA 10 5 - 15 01/23 Specimen Type: PLASMA No comment entered. Ordering Provider: AILIN CHESTER Report Released Date/Time: Jan 23, 2023 02:00 PM Reporting Lab: [facility] [address] Performing Lab: [facility] [address] [place] ([facility]) BASIC METABOLIC PANEL+MG GLOMERULAR FILTRATION RATE/1.73 SQ M.PREDICTED [VOLUME RATE/AREA] IN SERUM, PLASMA OR BLOOD BY CREATININE- BASED FORMULA (CKD-EPI 2020) 61 60 01/23 Specimen Type: PLASMA No comment entered. Ordering Provider: AILIN CHESTER Report Released Date/Time: Jan 23, 2023 02:00 PM Reporting Lab: [facility] [address] Performing Lab: [facility] [address] [place] ([facility]) BNP NATRIURETIC PEPTIDE B [MASS/VOLUM E] IN SERUM OR PLASMA 1549 <99 - 99 01/23 H Specimen Type: PLASMA No comment entered. Ordering Provider: AILIN CHESTER Report Released Date/Time: Jan 23, 2023 02:00 PM Reporting Lab: [facility] [address] Performing Lab: [facility] [address] [place] ([facility]) MICROALBU MIN/CREAT ININE RATIO URINE CREATININE [MASS/VOLUM E] IN URINE 132.8 58.0 - 161.0 11/23 Specimen Type: URINE No comment entered. Ordering Provider: AILIN CHESTER Report Released Date/Time: Nov 23, 2022 11:58 AM Reporting Lab: [facility] [address] Performing Lab: [facility] [address] [place] ([facility]) MICROALBU MIN/CREAT ININE RATIO URINE MICROALBUMI N/CREATININ E [MASS RATIO] IN URINE 28.0 11/23 Specimen Type: URINE No comment entered. Ordering Provider: AILIN CHESTER Report Released Date/Time: Nov 23, 2022 11:58 AM Reporting Lab: [facility] [address] Performing Lab: [place] [id number] [place] ([facility]) MICROALBU MIN/CREAT ININE RATIO URINE MICROALBUMI N [MASS/VOLUM E] IN URINE 37.2 11/23 H Specimen Type: URINE No comment entered. Ordering Provider: AILIN CHESTER Report Released Date/Time: Nov 23, 2022 11:58 AM Reporting Lab: [facility] [address] Performing Lab: [facility] [address] [place] ([facility]) LIPID PANEL,NON -FASTING CHOLESTEROL [MASS/VOLUM E] IN SERUM OR PLASMA 130 11/23 Specimen Type: PLASMA No comment entered. Ordering Provider: AILIN CHESTER Report Released Date/Time: Nov 23, 2022 11:58 AM Reporting Lab: [facility] [address] Performing Lab: [facility] [address] [place] ([facility]) LIPID PANEL,NON -FASTING CHOLESTEROL IN HDL [MASS/VOLUM E] IN SERUM OR PLASMA 39 11/23 L Specimen Type: PLASMA No comment entered. Ordering Provider: AILIN CHESTER Report Released Date/Time: Nov 23, 2022 11:58 AM Reporting Lab: [facility] [address] Performing Lab: [facility] [address] [place] ([facility]) LIPID PANEL,NON -FASTING CHOLESTEROL IN LDL [MASS/VOLUM E] IN SERUM OR PLASMA BY CALCULATION 73 11/23 Specimen Type: PLASMA No comment entered. Ordering Provider: AILIN CHESTER Report Released Date/Time: Nov 23, 2022 11:58 AM Reporting Lab: [facility] [address] Performing Lab: [facility] [address] [place] ([facility]) LIPID PANEL,NON -FASTING CHOLESTEROL IN VLDL [MASS/VOLUM E] IN SERUM OR PLASMA BY CALCULATION 18 11/23 Specimen Type: PLASMA No comment entered. Ordering Provider: AILIN CHESTER Report Released Date/Time: Nov 23, 2022 11:58 AM Reporting Lab: [facility] [address] Performing Lab: [address] [place] [address] ([facility]) LIPID PANEL,NON -FASTING CHOLESTEROL NON HDL [MASS/VOLUM E] IN SERUM OR PLASMA 91 11/23 Specimen Type: PLASMA No comment entered. Ordering Provider: AILIN CHESTER Report Released Date/Time: Nov 23, 2022 11:58 AM Reporting Lab: [address] Performing Lab: [address] ([facility]) LIPID PANEL,NON -FASTING TRIGLYCERID E [MASS/VOLUM E] IN SERUM OR PLASMA 92 11/23 Specimen Type: PLASMA No comment entered. Ordering Provider: AILIN CHESTER Report Released Date/Time: Nov 23, 2022 11:58 AM Reporting Lab: [facility] [address] Performing Lab: [facility] [id number] [place] [address] ([facility]) CBC LEUKOCYTES [#/VOLUME] IN BLOOD BY AUTOMATED COUNT 10.80 4.0 - 11.0 11/23 Specimen Type: BLOOD No comment entered. Ordering Provider: AILIN CHESTER Report Released Date/Time: Nov 23, 2022 11:58 AM Reporting Lab: [facility] [address] Performing Lab: [address] [place] ([facility]) CBC ERYTHROCYTE S [#/VOLUME] IN BLOOD BY AUTOMATED COUNT 3.87 4.6 - 6.2 11/23 L Specimen Type: BLOOD No comment entered. Ordering Provider: AILIN CHESTER Report Released Date/Time: Nov 23, 2022 11:58 AM Reporting Lab: [facility] [address] Performing Lab: [place] [phone] [place] ([facility]) CBC HEMOGLOBIN [MASS/VOLUM E] IN BLOOD 12.1 13.5 - 17.9 11/23 L Specimen Type: BLOOD No comment entered. Ordering Provider: AILIN CHESTER Report Released Date/Time: Nov 23, 2022 11:58 AM Reporting Lab: [facility] [address] Performing Lab: [facility] [address] [place] ([facility]) CBC HEMATOCRIT [VOLUME FRACTION] OF BLOOD BY AUTOMATED COUNT 37.5 41 - 54 11/23 L Specimen Type: BLOOD No comment entered. Ordering Provider: AILIN CHESTER Report Released Date/Time: Nov 23, 2022 11:58 AM Reporting Lab: [facility] [address] Performing Lab: [address] [place] [address] ([facility]) CBC MCV [ENTITIC VOLUME] BY AUTOMATED COUNT 96.9 80 - 100 11/23 Specimen Type: BLOOD No comment entered. Ordering Provider: AILIN CHSETER Report Released Date/Time: Nov 23, 2022 11:58 AM Reporting Lab: [facility] [address] Performing Lab: [facility] [address] [place] ([facility]) CBC MCH [ENTITIC MASS] BY AUTOMATED COUNT 31.3 27 - 33 11/23 Specimen Type: BLOOD No comment entered. Ordering Provider: AILIN CHESTER Report Released Date/Time: Nov 23, 2022 11:58 AM Reporting Lab: [facility] [address] Performing Lab: [facility] [address] [place] ([facility]) CBC MCHC [MASS/VOLUM E] BY AUTOMATED COUNT 32.3 32.0 - 37.5 11/23 Specimen Type: BLOOD No comment entered. Ordering Provider: AILIN CHESTER Report Released Date/Time: Nov 23, 2022 11:58 AM Reporting Lab: [facility] [address] Performing Lab: [facility] [address] [place] ([facility]) CBC PLATELETS [#/VOLUME] IN BLOOD BY AUTOMATED COUNT 293 150 - 400 11/23 Specimen Type: BLOOD No comment entered. Ordering Provider: AILIN CHESTER Report Released Date/Time: Nov 23, 2022 11:58 AM Reporting Lab: [facility] [address] Performing Lab: [address] ([facility]) CBC PLATELET MEAN VOLUME [ENTITIC VOLUME] IN BLOOD BY AUTOMATED COUNT 10.3 7.4 - 10.4 11/23 Specimen Type: BLOOD No comment entered. Ordering Provider: AILIN CHESTER Report Released Date/Time: Nov 23, 2022 11:58 AM Reporting Lab: [facility] [address] Performing Lab: [place] [id number] [place] ([facility]) CBC ERYTHROCYTE DISTRIBUTIO N WIDTH [RATIO] BY AUTOMATED COUNT 13.2 11.5 - 14.5 11/23 Specimen Type: BLOOD No comment entered. Ordering Provider: AILIN CHESTER Report Released Date/Time: Nov 23, 2022 11:58 AM Reporting Lab: [facility] [address] Performing Lab: [address] [place] ([facility]) TSH W/REFLEX TO FREE T4 THYROTROPIN [UNITS/VOLU ME] IN SERUM OR PLASMA 4.59 0.35 - 4.94 11/23 Specimen Type: PLASMA No comment entered. Ordering Provider: AILIN CHESTER Report Released Date/Time: Nov 23, 2022 11:58 AM Reporting Lab: [facility] [address] Performing Lab: [facility] [address] [place] ([facility]) COMPREHEN SIVE METABOLIC PANEL+MG CREATININE [MASS/VOLUM E] IN SERUM OR PLASMA 1.2 0.7 - 1.2 11/23 Specimen Type: PLASMA No comment entered. Ordering Provider: AILIN CHESTER Report Released Date/Time: Nov 23, 2022 11:58 AM Reporting Lab: [facility] [address] Performing Lab: [address] ([facility]) COMPREHEN SIVE METABOLIC PANEL+MG UREA NITROGEN [MASS/VOLUM E] IN SERUM OR PLASMA 34 8 - 26 11/23 H Specimen Type: PLASMA No comment entered. Ordering Provider: AILIN CHESTER Report Released Date/Time: Nov 23, 2022 11:58 AM Reporting Lab: [facility] [address] Performing Lab: [facility] [address] [place] ([facility]) COMPREHEN SIVE METABOLIC PANEL+MG GLUCOSE [MASS/VOLUM E] IN SERUM OR PLASMA 54 70 - 100 11/23 L Specimen Type: PLASMA No comment entered. Ordering Provider: AILIN CHESTER Report Released Date/Time: Nov 23, 2022 11:58 AM Reporting Lab: [facility] [address] Performing Lab: [facility] [address] [place] ([facility]) COMPREHEN SIVE METABOLIC PANEL+MG SODIUM [MOLES/VOLU ME] IN SERUM OR PLASMA 143 136 - 145 11/23 Specimen Type: PLASMA No comment entered. Ordering Provider: AILIN CHESTER Report Released Date/Time: Nov 23, 2022 11:58 AM Reporting Lab: [facility] [address] Performing Lab: [facility] [address] [place] ([facility]) COMPREHEN SIVE METABOLIC PANEL+MG POTASSIUM [MOLES/VOLU ME] IN SERUM OR PLASMA 4.4 3.5 - 5.1 11/23 Specimen Type: PLASMA No comment entered. Ordering Provider: AILIN CHESTER Report Released Date/Time: Nov 23, 2022 11:58 AM Reporting Lab: [facility] [address] Performing Lab: [facility] [address] [place] ([facility]) COMPREHEN SIVE METABOLIC PANEL+MG CHLORIDE [MOLES/VOLU ME] IN SERUM OR PLASMA 107 98 - 107 11/23 Specimen Type: PLASMA No comment entered. Ordering Provider: AILIN CHESTER Report Released Date/Time: Nov 23, 2022 11:58 AM Reporting Lab: [facility] [address] Performing Lab: [facility] [address] [place] ([facility]) COMPREHEN SIVE METABOLIC PANEL+MG CARBON DIOXIDE, TOTAL [MOLES/VOLU ME] IN SERUM OR PLASMA 23 22 - 29 11/23 Specimen Type: PLASMA No comment entered. Ordering Provider: AILIN CHESTER Report Released Date/Time: Nov 23, 2022 11:58 AM Reporting Lab: [facility] [address] Performing Lab: [facility] [address] [place] ([facility]) COMPREHEN SIVE METABOLIC PANEL+MG CALCIUM [MASS/VOLUM E] IN SERUM OR PLASMA 9.7 8.4 - 10.2 11/23 Specimen Type: PLASMA No comment entered. Ordering Provider: AILIN CHESTER Report Released Date/Time: Nov 23, 2022 11:58 AM Reporting Lab: [address] Performing Lab: [address] [place] ([facility]) COMPREHEN SIVE METABOLIC PANEL+MG PROTEIN [MASS/VOLUM E] IN SERUM OR PLASMA 7.2 6.0 - 8.3 11/23 Specimen Type: PLASMA No comment entered. Ordering Provider: AILIN CHESTER Report Released Date/Time: Nov 23, 2022 11:58 AM Reporting Lab: [facility] [address] Performing Lab: [place] [phone] [place] ([facility]) COMPREHEN SIVE METABOLIC PANEL+MG ALBUMIN [MASS/VOLUM E] IN SERUM OR PLASMA 4.1 3.5 - 5.2 11/23 Specimen Type: PLASMA No comment entered. Ordering Provider: AILIN CHESTER Report Released Date/Time: Nov 23, 2022 11:58 AM Reporting Lab: [facility] [address] Performing Lab: [facility] [address] [place] ([facility]) COMPREHEN SIVE METABOLIC PANEL+MG BILIRUBIN.T OTAL [MASS/VOLUM E] IN SERUM OR PLASMA 0.5 0.2 - 1.2 11/23 Specimen Type: PLASMA No comment entered. Ordering Provider: AILIN CHESTER Report Released Date/Time: Nov 23, 2022 11:58 AM Reporting Lab: [facility] [address] Performing Lab: [facility] [address] [place] ([facility]) COMPREHEN SIVE METABOLIC PANEL+MG MAGNESIUM [MASS/VOLUM E] IN SERUM OR PLASMA 1.4 1.6 - 2.6 11/23 L Specimen Type: PLASMA No comment entered. Ordering Provider: AILIN CHESTER Report Released Date/Time: Nov 23, 2022 11:58 AM Reporting Lab: [address] Performing Lab: [address] ([facility]) COMPREHEN SIVE METABOLIC PANEL+MG ANION GAP IN SERUM OR PLASMA 13 5 - 15 11/23 Specimen Type: PLASMA No comment entered. Ordering Provider: AILIN CHESTER Report Released Date/Time: Nov 23, 2022 11:58 AM Reporting Lab: [place] [id number] Performing Lab: [address] ([facility]) COMPREHEN SIVE METABOLIC PANEL+MG ALKALINE PHOSPHATASE [ENZYMATIC ACTIVITY/VO LUME] IN SERUM OR PLASMA 87 40 - 150 11/23 Specimen Type: PLASMA No comment entered. Ordering Provider: AILIN CHESTER Report Released Date/Time: Nov 23, 2022 11:58 AM Reporting Lab: [facility] [address] Performing Lab: [facility] [address] [place] ([facility]) COMPREHEN SIVE METABOLIC PANEL+MG ALANINE AMINOTRANSF ERASE [ENZYMATIC ACTIVITY/VO LUME] IN SERUM OR PLASMA 28 11/23 Specimen Type: PLASMA No comment entered. Ordering Provider: AILIN CHESTER Report Released Date/Time: Nov 23, 2022 11:58 AM Reporting Lab: [facility] [address] Performing Lab: [facility] [id number] [place] [address] ([facility]) COMPREHEN SIVE METABOLIC PANEL+MG ASPARTATE AMINOTRANSF ERASE [ENZYMATIC ACTIVITY/VO LUME] IN SERUM OR PLASMA 33 11/23 Specimen Type: PLASMA No comment entered. Ordering Provider: AILIN CHESTER Report Released Date/Time: Nov 23, 2022 11:58 AM Reporting Lab: [facility] [address] Performing Lab: [facility] [address] [place] ([facility]) COMPREHEN SIVE METABOLIC PANEL+MG GLOMERULAR FILTRATION RATE/1.73 SQ M.PREDICTED [VOLUME RATE/AREA] IN SERUM, PLASMA OR BLOOD BY CREATININE- BASED FORMULA (CKD-EPI 2020) 61 11/23 Specimen Type: PLASMA No comment entered. Ordering Provider: AILIN CHESTER Report Released Date/Time: Nov 23, 2022 11:58 AM Reporting Lab: [facility] [address] Performing Lab: [facility] [address] [place] ([facility]) HEMOGLOBI N [...] Nov 23, 2022 11:58 AM Reporting Lab: [facility] [address] Performing Lab: [facility] [address] [place] ([facility]) Vital Signs [...] Source [facility] Outpatient Encounter [id number] 03/29 [facility] Outpatient Encounter [id number] 04/05 [facility] Encounter [id number] 07/31 [place] [facility] Encounter [id number] 08/21 [place] [facility] Encounter [id number] 09/20 [place] [facility] Outpatient Encounter [id number] [id number] 11/11 [facility] Outpatient Encounter [id number] ZARI POWER 11/16 [place] [facility] Encounter [id number] 11/21 [place] [facility] OFFICE O/P EST MOD 30-39 MIN [id number] Diagnos is: ICD-10- CM Z00.00 Encntr for general adult medical exam w/o abnorma l finding s
CANDELARIO CHESTER DA K 11/23 [place] ([facility]) [place] ([facility]) GAIT TRAINING THERAPY [id number] Diagnos is: ICD-10- CM R26.89 Other abnorma lities of gait and mobilit y
OMAYRA JAMESON NTER V 11/23 [place] ([facility]) [facility] Outpatient Encounter [id number] SA JAMARI JAMESON R 12/11 [place] [facility] Encounter [id number] 12/25 [place] [facility] [place] [facility] Encounter [id number] SA JAMARI JAMESON R 12/28 [place] [facility] [place] [facility] [place] Encounter [id number] 01/05 [place] [facility] [place] [facility] [place] En[place] [id number] 01/11 [place] [facility] [place] [facility] Out[place] Encounter [id number] 01/16 [place] [facility] ([facility]) OFFICE O/P EST HI 40-54 MIN [id number] Diagnos is: ICD-10- CM I50.9 Heart failure , unspeci fied
CANDELARIO CHESTER 01/23 [facility] ([facility] [place] [facility] Out[facility] Encounter [id number] Marcus POTTS I 01/24 [place] [facility] [place] [facility] Out[place] Encounter [id number] Danica TORRE 02/05 [place] [facility] Outpatient Encounter [id number] 02/09 [place] [facility] Outpatient Encounter [id number] Danica TORRE 02/09 [place] [facility] Outpatient Encounter [id number] 02/14 [place] [facility] Outpatient Encounter [id number] 02/15 [place] [facility] Out[facility] Encounter [id number] 02/19 [place] [facility] Outpatient Encounter [id number] 02/20 [place] [facility] Out[facility] Encounter [id number] 02/20 [place] [facility] Outpatient Encounter [id number] 02/20 [place] [facility] Outpatient Encounter [id number] 02/20 [place] [facility] Out[facility] Encounter [id number] 02/21 [place] [facility] QNHP OL DIG ASSMT&MGMT 5-10 [id number] Diagnos is: ICD-10- CM E11.9 Type 2 diabete s mellitu s without complic ations< br/> HARDER,SIVA LY 02/22 [place] [facility] PRO PHONE CALL 11-20 MIN [id number] [phone] Diagnos is: ICD-10- CM I50.9 Heart failure , unspeci fied
HENRICH,BR ANDON M 02/23 [facility] ([facility] Outpatient Encounter [id number] 02/26 [place] [facility] Out[facility] Encounter [id number] 03/01 [place] [facility] Outpatient Encounter [id number] SA TRINO RA R 03/09 [place] [facility] Out[facility] Encounter [id number] 03/14 [place] [facility] Outpatient Encounter [id number] SA TRINO RA R 04/12 [place] [facility] Outpatient Encounter [id number] SA TRINO RA R 04/16 [place] [facility] Outpatient Encounter [id number] TRINO RA R 05/01 [place] [facility] Outpatient Encounter [id number] 07/11 [place] [facility] Outpatient Encounter [id number] [place] [facility] Outpatient Encounter [id number] 07/12 [facility] PRO PHONE CALL 5-10 MIN [id number] Diagnos is: ICD-10- CM 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
LICOERISVIVRADHA Frey 07/19 [facility] REPAIR/MOD IFYING [id number] Diagnos is: ICD-10- CM 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
CARY CORCORAN C 08/09 [facility] A[facility] FITTING/CH ECKING [id number] Diagnos is: ICD-10- CM 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
Sy MAKI 09/17 [facility] Social History Combined list of available smoking, tobacco, and other social history from Department of Defense and Veterans Affairs facilities. Social History Type Response Date Comment [facility] e Tobacco smoking status [place]-[facility]ACCO FORMER USER 11/23/2022 [place] ([facility]) History of tobacco use [place]-TOBACCO QUIT 1 5 YRS OR MORE 11/23/2022 [place] ([facility]) History of tobacco use VA-TOBACCO FORMER USER 11/29/2021 [place] ([facility]) History of tobacco use VA-TOBACCO FORMER USER 10/21/2020 [place] ([facility])
--- OUTSIDE RECORDS SUMMARY | 2023-09-26 09:13 | XMS_ITS | Encounter Summary ---
Author Name Unknown Organization [facility] Address [address] [place] [address] Care Team Providers Care Developer Advocate Name Role Phone Santosumdarrell Natalio Mishra APRN, C.N.P., M.S.N. Primary C are Provider Reason for Visit * Appointment Request (Routine) - Closed Specialty Diagnoses / Procedures Referred By Edin mishra Referred To Contact Senior Living Facility Referral ID Status Reason Start Date Expiration Date Visits Re quested Visits Authorized [id number] Closed 06/18/2023 06/17/2024 1 1 Encounter Details Date Type Department Care Team (Latest Contact Info) Description 06/18/2023 3:00 PM CUSTODIAN BLOOD BANK External Outreach Senior [facility] in [facility] [address], [place] [address] Hannah Castillo APRN, C.N.P. 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); Dementia (HCC); Congestive Heart Failure (HCC); Atrial Fibrillation Other Persistent (HCC); Atherosclerotic Heart Disease Of [place] Coronary Artery Without Angina Pectoris; 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 - 06/18/2023 3:00 PM CUSTODIAN BLOOD BANK ORDERS and INSTRUCTIONS: Face to face discharge [...] Hannah Castillo APRN, C.N.PCarito 06/18/23 2:09 PM CUSTODIAN BLOOD BANK [facility] documented in this encounter Progress Notes * Hannah Castillo APRN, C.NLucio - 06/18/2023 3:00 PM CST CHIEF COMPLAINT / REASON FOR VISIT [facility] Discharge Visit Visit Type: In Person: Face to Face SUBJECTIVE HISTORY OF PRESENT ILLNESS Today's narrative history (obtained from Patient, Nursing, and PT/OT): From record: Rosalina was admitted to [facility] on 04/30 with abdominal pain found secondary to constipation. He had acute kidney injury and was hydrated and furosemide was held with dosage decreased. He also had urine infection and was treated with IV antibiotics. He returned to [facility] on 05/03 to continue [...] Amputation Toe Status Post Left ([facility]) Overview: History of amputation of toe #3 Wound Ankle Open Subsequent Left Overview: 04/25/23: Nursing reported left lower calf/ankle redness. #4 Advanced Care Planning Overview: Full code status #5 Driver'S License Reviewing Officer Use Of Insulin Active ([facility]) Overview: On insulin glargine and aspart started during hospitalization December 2022. #6 Hypothyroidism Overview: Component Ref Range & Units 1 mo ago 04/24/23 1 mo ago 04/13/23 2 mo ago 03/11/23 EXT TSH, Sensitive, S 0.27 - 4.20 uIU/mL 16.80 18.20 11.70 #7 Congestive Heart Failure ([facility]) Overview: EF: ECHO with EF 10-20% [...] nursing note reviewed. Exam conducted with a air pollution inspector present. Constitutional Appearance: Normal appearance. HENT Head: [...] standard wheelchair Mr. Woods was admitted to [facility] April 10 following BK [...] Amputation Toe Status Post Left ([facility]) Assessment & Plan: Stable #3 Wound [...] code #5 Long-Term Use Of Insulin Active ([facility]) Assessment & Plan: Nurse reports he is nonadherent to his diabetic diet. He is also on a sliding scale. #6 Hypothyroidism Assessment & Plan: Increase levothyroxine to 50 mcg daily. residential may give two 25 mcg tablets to equal 50 mcg. 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 Glargine will be increased to 17 units. #11 Hyperglycemia Assessment & Plan: A1C 7.2 He will follow up with his PCP in [place] #12 Hyperkalemia #13 Hyperlipidemia Assessment & Plan: Stay on statin #14 Weakness General Assessment & Plan: He is getting stronger with therapy. He will continue therapy when he gets his prosthesis. He will have a wheelchair upon discharge. #15 Peripheral Vascular Disease ([facility]) Assessment & Plan: Monotor Other orders [...] were ordered. Follow up with PCP in [place] and [facility] as scheduled. PATIENT EDUCATION Ready [...] orders to facility. Total time 50 minutes. 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 Hypertension Heart Disease With Congestive Heart Failure (HCC) Hyperlipidemia Hyperglycemia 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 [address] [place] [phone] PCP - General Internal Medicine 04/10/23 08/27/23 documented as of this encounter
--- OUTSIDE RECORDS SUMMARY | 2023-09-26 09:13 | XMS_ITS | Encounter Summary ---
Author Name Unknown Organization [facility] Address [address] [place] [address] Care Team Providers Care Fisheries Manager Name Role Phone SantosumNatalio ramírez APRN C.N.PCarito, M.S.N. Primary C are Provider Reason for Visit * Reason Onset Date Comments Discharge Notice 05/23/2023 Encounter Details Date Type Department Care Team (Latest Contact Info) Description 05/23/2023 Clinical Communication Division of [facility], [facility] in [place], [place] [address] [place] [phone] Natalio Motta APRN, C.N.P., M.S.N. [address] [place] [phone] Discharge Notice Social History Tobacco Use Types [...] on filedocumented in this encounter Care Teams Fisheries Manager Relationship Specialty Start Date End Date Natalio oMtta APRN, C.N.PCarito, M.S.N. [address] [place] [phone] PCP - General Internal Medicine 04/10/23 08/27/23 documented as of this encounter
--- OUTSIDE RECORDS SUMMARY | 2023-09-26 09:13 | XMS_ITS | Clinical Summary ---
Author Name Unknown Organization [facility] Address [address] [place] [address] Care Team Providers Care Photograph Editor Name Role Phone Elsewhere, Pcp Primary Care Provider Unavailabl e Source Comments Patient records contain information from all sites at [facility]. For routine questions regarding patient records, call [phone] during business hours, M-F 8:00 AM - 5:00 PM Central Time. Record requests for emergency care only can be directed to [phone] at any time.[facility] [...] Heel: Area continues to improve. Wound measures [id number]. Edges well defined, attached and 100% re-epithelialized [...] will follow up with his PCP in [place] [employer] (Current) Anticoagulant Treatment 08/2022 Overview: On apixaban [...] wheelchair Mr. Woods was admitted to [facility] April 10 following BK right [...] was 0.92 in April 2023. vice president compliance confirmed levothyroxine is given every morning (6am) without other medications. Therefore, we will increase levothyroxine 50mcg to 75mcg and rechecked TSH in 6 weeks. Nursing instructed to continue monitoring for symptoms of hypothyroidism and contact L[place] provider if any concerns. 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 [...] and palpitation. 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 Atherosclerosis Of [place] Ar teries Of Other Extremities With Ulceration [...] for COVID-19 12/27/2022. Treated with remdesivir at [facility] [place] [facility]. Anemia 01/16/2023 04/12/2023 Overview: Lab [...] 05/24/2023 Overview: Onychomycosis of toenails; Original Code: [id number] Original Codesystem: SNOMED CT Classification: Medical Confirmation [...] Comments Blood Pressure 107/66 06/18/2023 1:10 PM FOOD AND NUTRITION SUPERVISOR Pulse 78 06/18/2023 1:10 PM FOOD AND NUTRITION SUPERVISOR Temperature 36.6 ??C (97.8 ??F) 06/18/2023 1:10 PM CS T Respiratory Rate 16 06/18/2023 1:10 PM FOOD AND NUTRITION SUPERVISOR Oxygen Saturation 95% 06/18/2023 1:10 PM FOOD AND NUTRITION SUPERVISOR Inhaled Oxygen Concentration - - Weight 75.8 kg (167 lb) 06/18/2023 1:10 PM FOOD AND NUTRITION SUPERVISOR Height 175.3 cm (5' 9) 04/12/2023 3:21 PM FOOD AND NUTRITION SUPERVISOR Body Mass Index 24.66 04/12/2023 3:21 PM FOOD AND NUTRITION SUPERVISOR Plan of Treatment Health Maintenance Due Date [...] Advance Directives For more information, please contact: [phone] * DNR/DNI (Latest Code Status on File) Date Activated Date Inactivated Comments 05/24/2023 6:14 PM * DNR/DNI Date Activated Date Inactivated Comments 04/12/2023 4:11 PM 04/16/2023 7:15 AM Care Teams Photograph Editor Relationship Specialty Start Date End Date Elsewhere, Pcp PCP - General Internal Medicine 08/28/23
--- OUTSIDE RECORDS SUMMARY | 2023-09-26 09:13 | XMS_ITS | Referral Summary ---
Author Name Unknown Organization [facility] Address [address] [place] [address] Care Team Providers Care Handmade Tile Artist Name Role Phone Elsewhere, Pcp Primary Care Provider Unavailabl e Source Comments Patient records contain information from all sites at [facility]. For routine questions regarding patient records, call [phone] during business hours, M-F 8:00 AM - 5:00 PM Central Time. Record requests for emergency care only can be directed to [phone] at any time.[facility] [...] Heel: Area continues to improve. Wound measures [id number]. Edges well defined, attached and 100% re-epithelialized [...] will follow up with his PCP in [place] [employer] (Current) Anticoagulant Treatment 08/2022 Overview: On apixaban [...] standard wheelchair Mr. Woods was admitted to [facility] April 10 following BK [...] monitoring for symptoms of hypothyroidism and contact [place] provider if any concerns. 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 [...] and palpitation. Atherosclerotic Heart Diseas e Of [place] Coronary Artery Without Angina Pectoris 01/15/2023 Overview: [...] Anticoagulation: Apixaban Last Assessment & Plan: terminal carman anticoagulation on apixaban [facility] Use Of Insulin Active 12/09/2022 Overview: On [...] control but to prevent hypoglycemia. Atherosclerosis Of [place] Ar teries Of Other Extremities With Ulceration [...] for COVID-19 12/27/2022. Treated with remdesivir at [facility]. Anemia 01/16/2023 04/12/2023 Overview: Lab [...] 05/24/2023 Overview: Onychomycosis of toenails; Original Code: [id number] Original Codesystem: SNOMED CT Classification: Medical Confirmation [...] Comments Blood Pressure 107/66 06/18/2023 1:10 PM SCIENTIFIC INVESTIGATOR Pulse 78 06/18/2023 1:10 PM SCIENTIFIC INVESTIGATOR Temperature 36.6 ??C (97.8 ??F) 06/18/2023 1:10 PM CS T Respiratory Rate 16 06/18/2023 1:10 PM SCIENTIFIC INVESTIGATOR Oxygen Saturation 95% 06/18/2023 1:10 PM SCIENTIFIC INVESTIGATOR Inhaled Oxygen Concentration - - Weight 75.8 kg (167 lb) 06/18/2023 1:10 PM SCIENTIFIC INVESTIGATOR Height 175.3 cm (5' 9) 04/12/2023 3:21 PM SCIENTIFIC INVESTIGATOR Body Mass Index 24.66 04/12/2023 3:21 PM SCIENTIFIC INVESTIGATOR Plan of Treatment Not on file Advance Directives For more information, please contact: [phone] * DNR/DNI (Latest Code Status on File) Date Activated Date Inactivated Comments 05/24/2023 6:14 PM * DNR/DNI Date Activated Date Inactivated Comments 04/12/2023 4:11 PM 04/16/2023 7:15 AM Care Teams Handmade Tile Artist Relationship Specialty Start Date End Date Elsewhere, Pcp PCP - General Internal Medicine 08/28/23
--- OUTSIDE RECORDS SUMMARY | 2023-09-26 09:13 | XMS_ITS ---
Author Name Unknown Organization [facility] Address [address] [place] [address] Care Team Providers Care Boarder Steam Name Role Phone Unavailable Unavailable Unavailable Surgery Details Not on file Complications Check Surgery Details section. Procedure Estimated Blood Loss Check Surgery Details section. Procedure Findings Check Surgery Details section. Procedure Specimens Taken Check Surgery Details section.
--- OUTSIDE RECORDS SUMMARY | 2023-09-26 09:13 | XMS_ITS | Encounter Summary ---
Author Name Unknown Organization [facility] Address [address] [place] [address] Care Team Providers Care Gripper Installer Name Role Phone Santosumdarrell Natalio Mishra APRN, C.N.P., M.S.N. Primary C are Provider Reason for Visit * Appointment Request (Routine) - Closed Specialty Diagnoses / Procedures Referred By Edin mishra Referred To Contact [facility] Facility Referral ID Status Reason Start Date Expiration Date Visits Re quested Visits Authorized [id number] Closed 05/23/2023 05/22/2024 1 1 Encounter Details Date Type Department Care Team (Latest Contact Info) Description 05/24/2023 3:00 PM INSURANCE SALES ASSISTANT External Outreach Senior [facility] in [facility] [address] [address] Hannah Castillo APRN, C.N.P. [address] [place] [address] [place] [phone] 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) (Primary Dx); Amputation Toe Status Post Left (HCC); Wound Ankle Open Subsequent Left; Advanced Care Planning; Senior Living Use Of Insulin Active (HCC); Hypothyroidism; Congestive [...] Comments Blood Pressure 107/66 06/18/2023 1:10 PM INSURANCE SALES ASSISTANT Pulse 78 06/18/2023 1:10 PM INSURANCE SALES ASSISTANT Temperature 36.6 ??C (97.8 ??F) 06/18/2023 1:10 PM CS T Respiratory Rate 16 06/18/2023 1:10 PM INSURANCE SALES ASSISTANT Oxygen Saturation 95% 06/18/2023 1:10 PM INSURANCE SALES ASSISTANT Inhaled Oxygen Concentration - - Weight 75.8 kg (167 lb) 06/18/2023 1:10 PM INSURANCE SALES ASSISTANT Height - - Body Mass Index 24.66 04/12/2023 3:21 PM INSURANCE SALES ASSISTANT documented in this encounter Patient Instructions * Patient Instructions* Hannah Castillo APRN, C.N.P. - 05/24/2023 3:00 PM INSURANCE SALES ASSISTANT ORDERS and INSTRUCTIONS: Face to face Discharge [...] wheelchair DME Medical Justification: Manual wheelchair A [id number] encounter was conducted on 05/24/23 by Hannah [...] 25 mcg tabs until discharge from the detention Electronically signed by: Hannah Castillo APRN, C.N.PCarito 05/24/23 6:17 PM INSURANCE SALES ASSISTANT RANCE SALES ASSISTANT documented in this encounter H&P Notes * Hannah Castillo APRN, C.N.Dell. - 05/24/2023 3:00 PM CST CHIEF COMPLAINT / REASON FOR VISIT [facility] Discharge Visit Visit Type: In Person: Face to Face SUBJECTIVE HISTORY OF PRESENT ILLNESS Discharge visit updated 06/18/23 with face to face visit on 06/18/23 Today's narrative history (obtained from Patient, Nursing, and PT/OT): From record: Rosalina was admitted to [facility] on 04/30 with abdominal pain found secondary to constipation. He had acute kidney injury and was hydrated and furosemide was held with dosage decreased. He also had urine infection and was treated with IV antibiotics. He returned to [facility] on 05/03 to continue therapies. He will [...] Care Planning Overview: Full code status #5 Senior Living Use Of Insulin Active ([facility]) Overview: On insulin glargine and aspart started during hospitalization December 2022. #6 Hypothyroidism Overview: Component Ref Range & Units 1 mo ago 04/24/23 1 mo ago 04/13/23 2 mo ago 03/11/23 EXT TSH, Sensitive, S 0.27 - 4.20 uIU/mL 16.80 18.20 11.70 #7 Congestive Heart Failure ([facility]) Overview: EF: ECHO with EF 10-20% [...] Type 2 With Diabetic Polyneuropathy ([facility]) Overview: Lab Results Component Value Date [...] nursing note reviewed. Exam conducted with a sales planner present. Constitutional Appearance: Normal appearance. HENT Head: [...] wheelchair Mr. Woods was admitted to [facility] April 10 following BK right [...] site #2 Amputation Toe Status Post Left ([facility]) Assessment & Plan: Stable #3 Wound Ankle Open Subsequent Left Assessment & Plan: Stable #4 Advanced Care Planning Assessment & Plan: He will be full code #5 Senior Living Use Of Insulin Active ([facility]) Assessment & Plan: Nurse reports he is nonadherent to his diabetic diet. He is also on a sliding scale. #6 Hypothyroidism Assessment & Plan: Increase levothyroxine to 50 mcg daily. shelter may give two 25 mcg tablets to equal 50 mcg. 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 Glargine will be increased to 17 units. #11 Hyperglycemia Assessment & Plan: A1C 7.2 He will follow up with his PCP in [place] #12 Hyperkalemia #13 Hyperlipidemia Assessment & Plan: Stay on statin #14 Weakness General Assessment & Plan: He is getting stronger with therapy. He will continue therapy when he gets his prosthesis. He will have a wheelchair upon discharge. #15 Peripheral Vascular Disease ([facility]) Assessment & Plan: Monotor Other orders [...] were ordered. Follow up with PCP in [place] and [facility] [...] orders to facility. Total time 45 minutes. RANCE SALES ASSISTANT documented in this encounter Miscellaneous Notes * Assessment & Plan Note - Hannah Castillo APRN, C.N.P. - 05/24/2023 6:08 PM CSTAssociated Problem(s): Peripheral Vascular Disease (HCC) Monotor RANCE SALES ASSISTANT * Assessment & Plan Note - Hannah Castillo APRN, C.N.P. - 05/24/2023 6:05 PM CSTAssociated Problem(s): Weakness General He is getting stronger with therapy. He will continue therapy when he gets his prosthesis. He will have a wheelchair upon discharge. RANCE SALES ASSISTANT * Assessment & Plan Note - Hannah Castillo APRN, C.N.P. - 05/24/2023 6:01 PM CSTAssociated Problem(s): Hyperlipidemia Stay on statin RANCE SALES ASSISTANT * Assessment & Plan Note - Hannah Castillo APRN, C.N.P. - 05/24/2023 6:00 PM CSTAssociated Problem(s): Hyperglycemia A1C 7.2 He will follow up with his PCP in [place] RANCE SALES ASSISTANT * Assessment & Plan Note - Hannah Castillo APRN, C.N.P. 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 Glargine will be increased to 17 units. RANCE SALES ASSISTANT * Assessment & Plan Note - Hannah Castillo APRN, C.N.P. - 05/24/2023 5:57 PM CSTAssociated Problem(s): Dementia (HCC) He has low hearing which could contribute to him not understanding RANCE SALES ASSISTANT * Assessment & Plan Note - Hannah Castillo APRN, C.N.P. - 05/24/2023 5:53 PM CSTAssociated Problem(s): Atrial Fibrillation Other Persistent (HCC) intermediate accountant anticoagulation on apixaban RANCE SALES ASSISTANT * Assessment & Plan Note - Hannah Castillo APRN, C.N.P. - 05/24/2023 5:52 PM CSTAssociated Problem(s): Congestive Heart Failure (HCC) Stable on current meds RANCE SALES ASSISTANT * Assessment & Plan Note - Hannah Castillo APRN C.N.P. - 05/24/2023 5:24 PM CSTAssociated Problem(s): Hypothyroidism Increase levothyroxine to 50 mcg daily. shelter may give two 25 mcg tablets to equal 50 mcg. He will be discharging in a week RANCE SALES ASSISTANT * Assessment & Plan Note - Hannah Castillo APRN, C.N.P. - 05/24/2023 5:20 PM CSTAssociated Problem(s): Senior Living Use Of Insulin Active (HCC) Nurse reports he is nonadherent to his diabetic diet. He is also on a sliding scale. RANCE SALES ASSISTANT * Assessment & Plan Note - Hannah Castillo APRN, C.N.P. - 05/24/2023 5:19 PM CSTAssociated Problem(s): Amputation Toe Status Post Left (HCC) Stable RANCE SALES ASSISTANT * Assessment & Plan Note - Hannah Castillo APRN, C.N.P. 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 He will need a standard wheelchair Mr. Woods was admitted to [facility] April 10 following BK right [...] continue to provide support to amputation site RANCE SALES ASSISTANT * Assessment & Plan Note - Hannah Castillo APRN, C.N.P. - 05/24/2023 5:15 PM CSTAssociated Problem(s): Advanced Care Planning He will be full code RANCE SALES ASSISTANT * Assessment & Plan Note - Hannah Castillo APRN, C.N.P. - 05/24/2023 5:14 PM CSTAssociated Problem(s): Wound Ankle Open Subsequent Left (Resolved 05/24/2023) Stable RANCE SALES ASSISTANT * ACP (Advance Care Planning) - Hannah Castillo APRN, C.N.P. - 05/24/2023 3:00 PM CST Advance Care Planning Reason for Conversation This patient is a 83 y.o. year old male that presents for Discharge detention visit. 1. Patient has understanding of conditions: [...] were also present during the discussion: Other: shelter staff Other Comments: He is DNR/DNI RANCE SALES ASSISTANT documented in this encounter Plan of Treatment Not on file documented as of this encounter Visit Diagnoses Diagnosis 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)- Primary Amputation Toe Status Post Left (HCC) Wound Ankle Open Subsequent Left Advanced Care Planning Manager Welding Use Of Insulin Active (HCC) Hypothyroidism Congestive Heart Failure (HCC) Atrial Fibrillation Other Persistent (HCC) Dementia (HCC) Diabetes Mellitus Type 2 With Diabetic Polyneuropathy (HCC) Hyperglycemia Hyperkalemia Hyperlipidemia Weakness General Peripheral Vascular Disease (HCC) documented in this encounter Care Teams Gripper Installer Relationship Specialty Start Date End Date Natalio Motta APRN, C.N.P., M.S.N. [address] [place] [address] PCP - General Internal Medicine 04/10/23 08/27/23 documented as of this encounter
--- OUTSIDE RECORDS SUMMARY | 2023-09-26 09:13 | XMS_ITS | Clinical Summary ---
Author Name Unknown Organization [facility] Address [place], [place] [address] Care Team Providers Care Transmission Design Engineer Name Role Phone VotelMelquiades MD Primary Care Provider + Nurses, Advanced Heart Failure Unavailable + Shade Manuel MD Unavailable [phone] Allergies No known active allergies Medications Medication Sig Dispensed Refills Start Date End Date Status blood-glucose meterIndications:T ype 2 diabetes mellitus with complication (HC) Ascensia Glucometer, Dispense meter, test strips, lancets covered by pt ins. Test 3 times daily 1 Device 07/09/2020 Active Insulin [place], Disposable, (Novofine 32) 32 gauge x 1/4Indications:25 [...] mg sublingual tabletIndications: Coronary artery disease involving cheesh-na heart without angina pectoris, unspecified vessel or [...] after d/c from 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 11/25/2019 HTN (hypertension) 10/28/2015 Hyperlipidemia LDL goal <70 10/28/2015 Adenomatous colon polyp 04/13/2015 Overview: Colonoscopy 04/2015 polyps repeat in 5 years Colonoscopy 03/2020 polyps, repeat in 5 years Background diabetic retinopathy(362.01) 07/10/19 08 Unspecified hearing loss 07/10/2007 Coronary atherosclerosis of unspecified type of vessel, cheesh-na or graft Overview: 4 vessel CABG 2001 Lexiscan only for cardiac evaluation - no treadmill Other ill-defined and unknow n causes of morbidity and mortality Impotence of organic origin Resolved Problems Problem Noted Date Diagnosed Date Resolved Date Type 2 diabetes mellitus with complication 11/16/2017 12/22/2022 Heart disease, unspecified 0 07/10/2007 Encounters Date Type Department Care Team Description 09/24/2023 12:57 PM CDT - 09/24/2023 11:59 PM T Hospital Encounter [facility] ? [facility] [address] [place] [address] Melquiades Man MD Tonsfeldt, Isabelle, PT 09/24/2023 Travel 09/20/2023 11:45 AM CDT - 09/20/2023 11:59 PM T Hospital Encounter [facility] ? [facility] [address] [place] [address] Melquiades Man MD Tonsfeldt, Isabelle, PT 09/20/2023 Travel 09/19/2023 Telephone [facility] [address] [place] [address] Melquiades Man MD 09/17/2023 Telephone [facility] [address] [place] [address] Melquiades Man MD orders (wound care 2 times per week) 09/13/2023 1:00 PM CDT - 09/13/2023 11:59 PM T Hospital Encounter [facility] ? [facility] [address] [place] [address] Melquiades Man MD Tonsfeldt, Isabelle, PT 09/13/2023 Travel 09/10/2023 12:53 PM CDT - 09/10/2023 11:59 PM CDT Hospital Encounter [facility] ? [facility] [address] [place] [address] VoteMelquiades lewis MD Tonsfeldt, Isabelle, PT 09/10/2023 Travel 09/06/2023 9:27 AM CDT - 09/06/2023 11:59 PM CDT Hospital Encounter [facility] ? [facility] [address] [place] [address] Votedebbie, MD Lesly Cleary Isabelle, PT 09/06/2023 Travel 08/31/2023 Telephone [facility] [address] [place] [address] Melquiades Man MD ORDERS 08/23/2023 12:46 PM CDT - 08/23/2023 11:59 PM CDT Hospital Encounter [facility] ? [facility] [address] [place] [address] Votedebbie, MD Lesly Cleary Isabelle, PT History of leg amputation (HC) 08/23/2023 Travel 08/17/2023 Telephone [facility] [address] [place] [address] Melquiades Man MD Home Care ([facility]) 08/08/2023 Telephone [facility] [address] [place] [address] Melquiades Man MD 08/01/2023 Orders Only [facility] Scanner 1 scan: (1-Ord) [facility], 08/01/2023 07/31/2023 Telephone [facility] [address] [place] [address] Melquiades Man MD 07/27/2023 11:30 AM CDT Office Visit [address] [place] [address] Shade Manuel MD CV Heart Failure Est (6 mo f/u, discuss recent med changes. ) 07/27/2023 10:45 AM CDT Orders Only [address] [place] [address] Lab 07/27/2023 Travel 07/24/2023 Telephone [facility] [address] [place] [address] Melquiades Man MD 07/24/2023 Refill [facility] [address] [place] [address] Melquiades Man MD Refill Request (Fiasp Flextouch Pen Inj 3ml ) 07/20/2023 1:00 PM MACHINE PECAN PICKER Telemedicine [facility] [address] [place] [address] Santana Nails MD Wound Check 07/20/2023 Refill [facility] [address] [place] [address] Melquiades Man MD Refill Request; NOVOLOG FLEXPEN 07/20/2023 Telephone [facility] [address] [place] [address] Ezequiel Nye, AuD Hearing Aid 07/19/2023 Telephone [facility] [address] [place] [address] Melquiades Man MD 07/18/2023 Refill [facility] [address] [place] [address] Melquiades Man MD Refill Request (Basaglar 100 U/ML Kwikpen INJ 3ml) 07/17/2023 2:05 PM MACHINE PECAN PICKER Office Visit [facility] [address] [place] [address] Melquiades Man MD Medication Management; Follow Up (Discharged from assisted 06/20/23, left foot wound developed while at the assisted) 07/17/2023 Telephone [facility] [address] [place] [address] Melquiades Man MD Refill Request (insulin) 07/17/2023 Travel 07/17/2023 Telephone [facility] [address] [place] [address] Melquiades Man MD Form 07/12/[address] [address] Melquiades Man MD 07/11/[address] [address] Ezequiel Nye, [employer] (AUTHORIZATION) 07/10/[address] [address] Melquiades Man MD 07/05/[address] [address] Melquiades Man MD Home Care 07/03/2023 Telephone [facility] [address] [place] [address] Melquiades Man MD Follow Up (orders) 07/02/2023 Telephone [facility] [address] [place] [address] Santana Nails MD Appointment 07/02/2023 Telephone [facility] [address] [place] [address] Ezequiel Nye, Isidro Referral 07/01/2023 Telephone [facility] [address] [place] [address] Kimberly Hurtado MD 07/01/2023 Nurse Triage [address] [address] Melquiades Man MD High Blood Sugar 06/28/2023 Telephone [facility] [address] [place] [address] VoteMelquiades lewis MD from Last 3 Months Immunizations Name Administration Dates Next Due COVID-19 vaccine (Moderna 100mcg/0.5mL) PF, MDV 03/09/2021 COVID-19 vaccine (Moderna 50 mcg/0.5mL) 12YO+ BIVALENT PF, MDV 03/29/2022 COVID-19 vaccine (Pfizer-Bio NTech 30mcg/0.3mL) PF, MDV 03/09/2021,07/24/2020,07/03/2020 COVID-19 vaccine Comirnaty (Pfizer-BioNTech 30mcg/0.3mL) 12YO+ [id number] Formula PF, SDV, PFS 03/05/2023 Influenza Virus, [...] Brother kidney problems Heart Disease Father 1st [place] at 65 d 77 yo CHF Diabetes Mother Heart Disease Mother d 64 yo [place] Genetic Other There is a posi tive [...] T Respiratory Rate 24 05/03/2023 7:04 AM MACHINE PECAN PICKER Oxygen Saturation 100% 07/27/2023 11:51 AM CDT Inhaled Oxygen Concentration - - Weight 81.6 kg (180 lb) 07/27/2023 11:51 AM CDT pt reported Height 175.3 cm (5' 9.02) 07/27/2023 11:51 AM C DT Body Mass Index 26.57 07/27/2023 11:51 AM CDT Plan of Treatment Upcoming Encounters Date Type Department Care Team (Late st Contact Info) Description 09/27/2023 1:[address] [facility] [address] [place] [address] Zoila Grace, PT [address] [place] [address] 10/01/2023 1:[address] [facility] [address] [place] [address] Zoila Grace, PT [address] [place] [address] 10/04/2023 1:[address] [facility] [address] [place] [address] Zoila Grace, PT [address] [place] [address] 10/11/2023 1:[address] [facility] [address] [place] [address] Zoila Grace, PT [address], [place] [address] 10/15/2023 1:[address] [facility] [address] [place] [address] Zoila Grace, PT [address], [place] [address] 10/18/2023 1:[address] [facility] [address] [place] [address] Fiorella Nicholas, PT [address] [place] [address] 10/22/2023 1:[address] [facility] [address] [place] [address] Fiorella Nicholas, PT [address] [place] [address] 10/25/2023 1:[address] [facility] [address] [place] [address] Fiorella Nicholas, PT [address] [place] [address] 10/29/2023 1:[address] [facility] [address] [place] [address] Fiorella Nicholas, PT [address] [place] [address] 11/01/2023 1:[address] [facility] [address] [place] [address] Fiorella Nicholas, PT [address] [place] [address] 11/05/2023 1:[address] [facility] ? [facility] [address] [place] [address] YuFiorella jimenez, PT [address] [place] [address] Health Maintenance Due Date Last Done Comments [...] 7,600(H) <450 pg/mL 07/27/2023 11:09 PM CDT [facility] [employer] [facility] Blood BLOOD SPECIMEN / Unknown Butterfly / Unknown 07/27/2023 10:49 AM CDT 07/27/2023 10:50 AM CDT Narrative [facility] - 07/27/2023 11:09 PM [...] failure. ? Melquiades Man MD SEND OUTS [facility] [employer] [facility] [address] [place] [address], * (ABNORMAL) BASIC METABOLIC PANEL (07/27/2023 10:49 AM CDT) [facility] SODIUM 137 136 - 145 mmol/L 07/27/2023 11:08 PM [facility] POTASSIUM 4.4 3.5 - 5.1 mmol/L 07/27/2023 11:08 PM [facility] CHLORIDE 94(L) 98 - 107 mmol/L 07/27/2023 11:08 PM [facility] CO2,TOTAL 26 22 - 29 mmol/L 07/27/2023 11:08 PM [facility] ANION GAP 17 5 - 18 07/27/2023 11:08 PM [facility] GLUCOSE 317(H) 70 - 99 mg/dL 07/27/2023 11:08 PM [facility] CALCIUM 10.1 8.8 - 10.2 mg/dL 07/27/2023 11:08 PM [facility] BUN 52(H) 8 - 23 mg/dL 07/27/2023 11:08 PM [facility] CREATININE 1.74(H) 0.70 - 1.20 mg/dL 07/27/2023 11:08 PM [facility] BUN/CREAT RATIO 30(H) 10 - 20 11:08 PM [facility] eGFR 39(L) >90 mL/min/1.7 3m2 07/27/2023 11:08 PM [facility] Comment:As of 2021, eG FR [...] 10:50 AM CDT Melquiades Man MD CHEMISTRY [facility] [address] [place] [address], from Last 3 Months Additional Health Concerns [...] months since positive culture): resides in acute/senior living care, receiving hemodialysis, has chronic open wounds/skin damage, has long-term percutaneous indwelling medical devices Exclusions for nares collection (if <12 months since positive culture) include all of the previous exclusions plus patients on antibiotics 7 days prior to collection 03/08/2023 05/31/2023 [id number]-GNB 04/26/2023 04/26/2023 Advance Directives Documents on File Type Date Recorded Patient Respiratory Director Harjinder QUINONEZ 03/26/2023 * Full Code (Latest [...] Code Status Discussion: Reviewed Preferences Care Teams Transmission Design Engineer Relationship Specialty Start Date End Date Votel, Melquiades Gray MD [address] [place] [address] PCP - General 11/20/05 Nurses, Advanced Heart Failure [address] [place] [address] Advanced Heart Failure/Transplant Card 01/24/23 Shade Manuel MD [address] [place] [address] [place] [address] Cardiovascular Disease 01/24/23
== END 2023-09-26 09:10 | disposition home or self-care (01) ==
LOC: WOUND 09:10
PROVIDERS: PCP Family Medicine; Visit Provider Surgery
DX: E11.621 Type 2 diabetes mellitus with foot ulcer (principal); L97.422 Non-pressure chronic ulcer of left heel and midfoot with fat layer exposed; Z79.4 Long term (current) use of insulin; Z79.84 Long term (current) use of oral hypoglycemic drugs
CPT/HCPCS: 97597

== ENCOUNTER 2023-10-03 09:05 | Outpatient (CLI) | payer MEDICARE, BC, SELFPAY ==
--- OUTSIDE RECORDS SUMMARY | 2023-10-03 09:07 | XMS_ITS | Continuity of Care Document ---
Author Name [facility] Organization [facility] Care Team Providers Care Loop Drier Operator Name Role Phone [facility] Unavailable Unavailable Problems Combined list of problems from Department of [facility] and [facility] facilities. It does not include entries that were removed or entered in error. Problem Status Onset Date Problem Type Date of Resolution Comments Source Exposure to potentially hazardous substance ([facility] [id number]) Active 07/20/19 24 Condition Jul 20, 2023 Entered By: MECHELLE DEMPSEY Comment: [facility] Documentation Initiative [facility] CAD - Coronary Artery Disease ([facility] [id number]) Active Condition [place] ([facility]) CHF - Congestive Heart Failure ([facility] [id number]) Active Condition [facility]) Diabetes Mellitus Type 2 ([facility] [id number]) Active Condition [facility]) HTN - Hypertension ([facility] [id number]) Active Condition [place] ([facility]) Hyperlipidemia ([facility] [id number]) Active Condition [facility]) Long-term current use of insulin Active Condition [facility]) Peripheral neuropathy due to type 2 diabetes mellitus Active Condition [place] ([facility]) Diagnosis: ICD-10-CM H90.3 Sensorineural hearing loss, bilateral Active Diagnosis [facility] Diagnosis: ICD-10-CM I50.9 Heart failure, unspecified Active Diagnosis [facility]) Diagnosis: ICD-10-CM E11.9 Type 2 diabetes mellitus without complications Active Diagnosis [facility] Diagnosis: ICD-10-CM R26.89 Other abnormalities of gait and mobility Active Diagnosis [facility] ([facility]) Diagnosis: ICD-10-CM Z00.00 Encntr for general adult medical exam w/o abnormal findings Active Diagnosis [facility] ([facility]) Medications Combined list of outpatient medications from Department of [facility] and [facility] facilities.Medications provided include 1) outpatient [...] WOUND CARE ORDERS TOPICA LLThanh ACTIVE 02/16/2024 [id number] KATHY MURPHY 2022 [address] [place] OLIS [...] Site Reaction Lot Number CVX Code 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 Comments Source INFLUENZA, HIGH-DOSE, QUADRIVALENT 1 2021 197 complet ed [facility] COVID-19 (MODERNA), MRNA, LNP-S, BIVALENT, PF, 50 MCG/0.5 ML OR 25MCG/0.25 ML DOSE 1 2021 229 complet ed [facility] COVID-19 (PFIZER), MRNA, LNP-S, PF, 30 MCG/0.3 ML DOSE 3 2020 208 complet ed [facility] INFLUENZA, UNSPECIFIED FORMULATION 2020 88 complet ed [facility] TDAP 2020 115 complet ed [employer] hKline, [id number] , exp-2022 and given VIS dated 12/17/2020 [facility]) ZOSTER RECOMBINANT 2 2020 187 complet ed [facility]) ZOSTER RECOMBINANT 1 2020 187 complet ed [facility]) COVID-19 (PFIZER), MRNA, LNP-S, PF, 30 MCG/0.3 ML DOSE 2 2020 208 complet ed [facility] COVID-19 (PFIZER), MRNA, LNP-S, PF, 30 MCG/0.3 ML DOSE 1 2020 208 complet ed [facility] INFLUENZA, UNSPECIFIED FORMULATION 2019 88 complet ed [facility] PNEUMOCOCCAL CONJUGATE PCV 13 2014 133 complet ed Per [facility] PNEUMOCOCCAL POLYSACCHARID E PPV23 2010 33 complet [facility]YSACCHARID [facility] PPV23 2005 33 complet ed [facility] Results Combined list of recent [...] Jan 23, 2023 02:00 PM Reporting Lab: [facility] [address] Performing Lab: [facility] [address] [place] ([facility]) BASIC METABOLIC PANEL+MG UREA NITROGEN [MASS/VOLUM E] IN SERUM OR PLASMA 35 8 - 26 01/23 H Specimen Type: PLASMA No comment entered. Ordering Provider: AILIN CHESTER Report Released Date/Time: Jan 23, 2023 02:00 PM Reporting Lab: [facility] [address] Performing Lab: [facility] [address] [place] ([facility]) BASIC METABOLIC PANEL+MG GLUCOSE [MASS/VOLUM E] IN SERUM OR PLASMA 239 70 - 100 01/23 H Specimen Type: PLASMA No comment entered. Ordering Provider: AILIN CHESTER Report Released Date/Time: Jan 23, 2023 02:00 PM Reporting Lab: [facility] [address] Performing Lab: [facility] [address] [place] ([facility]) BASIC METABOLIC PANEL+MG SODIUM [MOLES/VOLU ME] IN SERUM OR PLASMA 140 136 - 145 01/23 Specimen Type: PLASMA No comment entered. Ordering Provider: AILIN CHESTER Report Released Date/Time: Jan 23, 2023 02:00 PM Reporting Lab: [address] Performing Lab: [address] [place] [address] ([place]) BASIC METABOLIC PANEL+MG POTASSIUM [MOLES/VOLU ME] IN SERUM OR PLASMA 5.1 3.5 - 5.1 01/23 Specimen Type: PLASMA No comment entered. Ordering Provider: AILIN CHESTER Report Released Date/Time: Jan 23, 2023 02:00 PM Reporting Lab: [address] Performing Lab: [address] ([place]) BASIC METABOLIC PANEL+MG CHLORIDE [MOLES/VOLU ME] IN SERUM OR PLASMA 109 98 - 107 01/23 H Specimen Type: PLASMA No comment entered. Ordering Provider: AILIN CHESTER Report Released Date/Time: Jan 23, 2023 02:00 PM Reporting Lab: [facility] [address] Performing Lab: [facility] [address] [place] ([facility]) BASIC METABOLIC PANEL+MG CARBON DIOXIDE, TOTAL [MOLES/VOLU ME] IN SERUM OR PLASMA 21 22 - 29 01/23 L Specimen Type: PLASMA No comment entered. Ordering Provider: AILIN CHESTER Report Released Date/Time: Jan 23, 2023 02:00 PM Reporting Lab: [facility] [address] Performing Lab: [facility] [address] [place] ([facility]) BASIC METABOLIC PANEL+MG CALCIUM [MASS/VOLUM E] IN SERUM OR PLASMA 9.4 8.4 - 10.2 01/23 Specimen Type: PLASMA No comment entered. Ordering Provider: AILIN CHESTER Report Released Date/Time: Jan 23, 2023 02:00 PM Reporting Lab: [facility] [address] Performing Lab: [facility] [address] [place] ([facility]) BASIC METABOLIC PANEL+MG MAGNESIUM [MASS/VOLUM E] IN SERUM OR PLASMA 1.7 1.6 - 2.6 01/23 Specimen Type: PLASMA No comment entered. Ordering Provider: AILIN CHESTER Report Released Date/Time: Jan 23, 2023 02:00 PM Reporting Lab: [facility] [address] Performing Lab: [facility] [address] [place] ([facility]) BASIC METABOLIC PANEL+MG ANION GAP IN SERUM OR PLASMA 10 5 - 15 01/23 Specimen Type: PLASMA No comment entered. Ordering Provider: AILIN CHESTER Report Released Date/Time: Jan 23, 2023 02:00 PM Reporting Lab: [facility] [address] Performing Lab: [facility] [address] [place] ([facility]) BASIC METABOLIC PANEL+MG GLOMERULAR FILTRATION RATE/1.73 SQ M.PREDICTED [VOLUME RATE/AREA] IN SERUM, PLASMA OR BLOOD BY CREATININE- BASED FORMULA (CKD-EPI 2020) 61 60 01/23 Specimen Type: PLASMA No comment entered. Ordering Provider: AILIN CHESTER Report Released Date/Time: Jan 23, 2023 02:00 PM Reporting Lab: [facility] [address] Performing Lab: [facility] [address] [place] ([facility]) BNP NATRIURETIC PEPTIDE B [MASS/VOLUM E] IN SERUM OR PLASMA 1549 <99 - 99 01/23 H Specimen Type: PLASMA No comment entered. Ordering Provider: AILIN CHESTER Report Released Date/Time: Jan 23, 2023 02:00 PM Reporting Lab: [facility] [address] Performing Lab: [facility] [address] [place] ([facility]) MICROALBU MIN/CREAT ININE RATIO URINE CREATININE [MASS/VOLUM E] IN URINE 132.8 58.0 - 161.0 11/23 Specimen Type: URINE No comment entered. Ordering Provider: AILIN CHESTER Report Released Date/Time: Nov 23, 2022 11:58 AM Reporting Lab: [facility] [address] Performing Lab: [facility] [address] [place] ([facility]) MICROALBU MIN/CREAT ININE RATIO URINE MICROALBUMI N/CREATININ E [MASS RATIO] IN URINE 28.0 11/23 Specimen Type: URINE No comment entered. Ordering Provider: AILIN CHESTER Report Released Date/Time: Nov 23, 2022 11:58 AM Reporting Lab: [facility] [address] Performing Lab: [place] [address] [place] ([facility]) MICROALBU MIN/CREAT ININE RATIO URINE MICROALBUMI N [MASS/VOLUM E] IN URINE 37.2 11/23 H Specimen Type: URINE No comment entered. Ordering Provider: AILIN CHESTER Report Released Date/Time: Nov 23, 2022 11:58 AM Reporting Lab: [facility] [address] Performing Lab: [facility] [address] [place] ([facility]) LIPID PANEL,NON -FASTING CHOLESTEROL [MASS/VOLUM E] IN SERUM OR PLASMA 130 11/23 Specimen Type: PLASMA No comment entered. Ordering Provider: AILIN CHESTER Report Released Date/Time: Nov 23, 2022 11:58 AM Reporting Lab: [facility] [address] Performing Lab: [facility] [address] [place] ([facility]) LIPID PANEL,NON -FASTING CHOLESTEROL IN HDL [MASS/VOLUM E] IN SERUM OR PLASMA 39 11/23 L Specimen Type: PLASMA No comment entered. Ordering Provider: AILIN CHESTER Report Released Date/Time: Nov 23, 2022 11:58 AM Reporting Lab: [facility] [address] Performing Lab: [facility] [address] [place] ([facility]) LIPID PANEL,NON -FASTING CHOLESTEROL IN LDL [MASS/VOLUM E] IN SERUM OR PLASMA BY CALCULATION 73 11/23 Specimen Type: PLASMA No comment entered. Ordering Provider: AILIN CHESTER Report Released Date/Time: Nov 23, 2022 11:58 AM Reporting Lab: [facility] [address] Performing Lab: [facility] [address] [place] ([facility]) LIPID PANEL,NON -FASTING CHOLESTEROL IN VLDL [MASS/VOLUM E] IN SERUM OR PLASMA BY CALCULATION 18 11/23 Specimen Type: PLASMA No comment entered. Ordering Provider: AILIN CHESTER Report Released Date/Time: Nov 23, 2022 11:58 AM Reporting Lab: [facility] [address] Performing Lab: [address] [place] [address] ([facility]) LIPID PANEL,NON -FASTING CHOLESTEROL NON HDL [MASS/VOLUM E] IN SERUM OR PLASMA 91 11/23 Specimen Type: PLASMA No comment entered. Ordering Provider: AILIN CHESTER Report Released Date/Time: Nov 23, 2022 11:58 AM Reporting Lab: [address] Performing Lab: [address] ([facility]) LIPID PANEL,NON -FASTING TRIGLYCERID E [MASS/VOLUM E] IN SERUM OR PLASMA 92 11/23 Specimen Type: PLASMA No comment entered. Ordering Provider: AILIN CHESTER Report Released Date/Time: Nov 23, 2022 11:58 AM Reporting Lab: [facility] [address] Performing Lab: [facility] [address] [place] [address] ([place]) CBC LEUKOCYTES [#/VOLUME] IN BLOOD BY AUTOMATED COUNT 10.80 4.0 - 11.0 11/23 Specimen Type: BLOOD No comment entered. Ordering Provider: AILIN CHESTER Report Released Date/Time: Nov 23, 2022 11:58 AM Reporting Lab: [facility] [address] Performing Lab: [address] [place] ([facility]) CBC ERYTHROCYTE S [#/VOLUME] IN BLOOD BY AUTOMATED COUNT 3.87 4.6 - 6.2 11/23 L Specimen Type: BLOOD No comment entered. Ordering Provider: AILIN CHESTER Report Released Date/Time: Nov 23, 2022 11:58 AM Reporting Lab: [facility] [address] Performing Lab: [place] [address] [place] ([facility]) CBC HEMOGLOBIN [MASS/VOLUM E] IN BLOOD 12.1 13.5 - 17.9 11/23 L Specimen Type: BLOOD No comment entered. Ordering Provider: AILIN CHESTER Report Released Date/Time: Nov 23, 2022 11:58 AM Reporting Lab: [facility] [address] Performing Lab: [facility] [address] [place] ([facility]) CBC HEMATOCRIT [VOLUME FRACTION] OF BLOOD BY AUTOMATED COUNT 37.5 41 - 54 11/23 L Specimen Type: BLOOD No comment entered. Ordering Provider: AILIN CHESTER Report Released Date/Time: Nov 23, 2022 11:58 AM Reporting Lab: [facility] [address] Performing Lab: [address] [place] [address] ([facility]) CBC MCV [ENTITIC VOLUME] BY AUTOMATED COUNT 96.9 80 - 100 11/23 Specimen Type: BLOOD No comment entered. Ordering Provider: AILIN CHESTER Report Released Date/Time: Nov 23, 2022 11:58 AM Reporting Lab: [facility] [address] Performing Lab: [facility] [address] [place] ([facility]) CBC MCH [ENTITIC MASS] BY AUTOMATED COUNT 31.3 27 - 33 11/23 Specimen Type: BLOOD No comment entered. Ordering Provider: AILIN CHESTER Report Released Date/Time: Nov 23, 2022 11:58 AM Reporting Lab: [facility] [address] Performing Lab: [facility] [address] [place] ([facility]) CBC MCHC [MASS/VOLUM E] BY AUTOMATED COUNT 32.3 32.0 - 37.5 11/23 Specimen Type: BLOOD No comment entered. Ordering Provider: AILIN CHESTER Report Released Date/Time: Nov 23, 2022 11:58 AM Reporting Lab: [facility] [address] Performing Lab: [facility] [address] [place] ([facility]) CBC PLATELETS [#/VOLUME] IN BLOOD BY AUTOMATED COUNT 293 150 - 400 11/23 Specimen Type: BLOOD No comment entered. Ordering Provider: AILIN CHESTER Report Released Date/Time: Nov 23, 2022 11:58 AM Reporting Lab: [facility] [address] Performing Lab: [address] ([facility]) CBC PLATELET MEAN VOLUME [ENTITIC VOLUME] IN BLOOD BY AUTOMATED COUNT 10.3 7.4 - 10.4 11/23 Specimen Type: BLOOD No comment entered. Ordering Provider: AILIN CHESTER Report Released Date/Time: Nov 23, 2022 11:58 AM Reporting Lab: [facility] [address] Performing Lab: [place] [id number] [place] ([facility]) CBC ERYTHROCYTE DISTRIBUTIO N WIDTH [RATIO] BY AUTOMATED COUNT 13.2 11.5 - 14.5 11/23 Specimen Type: BLOOD No comment entered. Ordering Provider: AILIN CHESTER Report Released Date/Time: Nov 23, 2022 11:58 AM Reporting Lab: [facility] [address] Performing Lab: [address] [place] ([facility]) TSH W/REFLEX TO FREE T4 THYROTROPIN [UNITS/VOLU ME] IN SERUM OR PLASMA 4.59 0.35 - 4.94 11/23 Specimen Type: PLASMA No comment entered. Ordering Provider: AILIN CHESTER Report Released Date/Time: Nov 23, 2022 11:58 AM Reporting Lab: [facility] [address] Performing Lab: [facility] [address] [place] ([facility]) COMPREHEN SIVE METABOLIC PANEL+MG CREATININE [MASS/VOLUM E] IN SERUM OR PLASMA 1.2 0.7 - 1.2 11/23 Specimen Type: PLASMA No comment entered. Ordering Provider: AILIN CHESTER Report Released Date/Time: Nov 23, 2022 11:58 AM Reporting Lab: [facility] [address] Performing Lab: [address] ([facility]) COMPREHEN SIVE METABOLIC PANEL+MG UREA NITROGEN [MASS/VOLUM E] IN SERUM OR PLASMA 34 8 - 26 11/23 H Specimen Type: PLASMA No comment entered. Ordering Provider: AILIN CHESTER Report Released Date/Time: Nov 23, 2022 11:58 AM Reporting Lab: [facility] [address] Performing Lab: [facility] [address] [place] ([facility]) COMPREHEN SIVE METABOLIC PANEL+MG GLUCOSE [MASS/VOLUM E] IN SERUM OR PLASMA 54 70 - 100 11/23 L Specimen Type: PLASMA No comment entered. Ordering Provider: AILIN CHESTER Report Released Date/Time: Nov 23, 2022 11:58 AM Reporting Lab: [facility] [address] Performing Lab: [facility] [address] [place] ([facility]) COMPREHEN SIVE METABOLIC PANEL+MG SODIUM [MOLES/VOLU ME] IN SERUM OR PLASMA 143 136 - 145 11/23 Specimen Type: PLASMA No comment entered. Ordering Provider: AILIN CHESTER Report Released Date/Time: Nov 23, 2022 11:58 AM Reporting Lab: [facility] [address] Performing Lab: [facility] [address] [place] ([facility]) COMPREHEN SIVE METABOLIC PANEL+MG POTASSIUM [MOLES/VOLU ME] IN SERUM OR PLASMA 4.4 3.5 - 5.1 11/23 Specimen Type: PLASMA No comment entered. Ordering Provider: AILIN CHESTER Report Released Date/Time: Nov 23, 2022 11:58 AM Reporting Lab: [facility] [address] Performing Lab: [facility] [address] [place] ([facility]) COMPREHEN SIVE METABOLIC PANEL+MG CHLORIDE [MOLES/VOLU ME] IN SERUM OR PLASMA 107 98 - 107 11/23 Specimen Type: PLASMA No comment entered. Ordering Provider: AILIN CHESTER Report Released Date/Time: Nov 23, 2022 11:58 AM Reporting Lab: [facility] [address] Performing Lab: [facility] [address] [place] ([facility]) COMPREHEN SIVE METABOLIC PANEL+MG CARBON DIOXIDE, TOTAL [MOLES/VOLU ME] IN SERUM OR PLASMA 23 22 - 29 11/23 Specimen Type: PLASMA No comment entered. Ordering Provider: AILIN CHESTER Report Released Date/Time: Nov 23, 2022 11:58 AM Reporting Lab: [facility] [address] Performing Lab: [facility] [address] [place] ([facility]) COMPREHEN SIVE METABOLIC PANEL+MG CALCIUM [MASS/VOLUM E] IN SERUM OR PLASMA 9.7 8.4 - 10.2 11/23 Specimen Type: PLASMA No comment entered. Ordering Provider: AILIN CHESTER Report Released Date/Time: Nov 23, 2022 11:58 AM Reporting Lab: [address] Performing Lab: [address] [place] ([facility]) COMPREHEN SIVE METABOLIC PANEL+MG PROTEIN [MASS/VOLUM E] IN SERUM OR PLASMA 7.2 6.0 - 8.3 11/23 Specimen Type: PLASMA No comment entered. Ordering Provider: AILIN CHESTER Report Released Date/Time: Nov 23, 2022 11:58 AM Reporting Lab: [facility] [address] Performing Lab: [place] [address] [place] ([facility]) COMPREHEN SIVE METABOLIC PANEL+MG ALBUMIN [MASS/VOLUM E] IN SERUM OR PLASMA 4.1 3.5 - 5.2 11/23 Specimen Type: PLASMA No comment entered. Ordering Provider: AILIN CHESTER Report Released Date/Time: Nov 23, 2022 11:58 AM Reporting Lab: [facility] [address] Performing Lab: [facility] [address] [place] ([facility]) COMPREHEN SIVE METABOLIC PANEL+MG BILIRUBIN.T OTAL [MASS/VOLUM E] IN SERUM OR PLASMA 0.5 0.2 - 1.2 11/23 Specimen Type: PLASMA No comment entered. Ordering Provider: AILIN CHESTER Report Released Date/Time: Nov 23, 2022 11:58 AM Reporting Lab: [facility] [address] Performing Lab: [facility] [address] [place] ([facility]) COMPREHEN SIVE METABOLIC PANEL+MG MAGNESIUM [MASS/VOLUM E] IN SERUM OR PLASMA 1.4 1.6 - 2.6 11/23 L Specimen Type: PLASMA No comment entered. Ordering Provider: AILIN CHESTER Report Released Date/Time: Nov 23, 2022 11:58 AM Reporting Lab: [address] Performing Lab: [address] ([facility]) COMPREHEN SIVE METABOLIC PANEL+MG ANION GAP IN SERUM OR PLASMA 13 5 - 15 11/23 Specimen Type: PLASMA No comment entered. Ordering Provider: AILIN CHESTER Report Released Date/Time: Nov 23, 2022 11:58 AM Reporting Lab: [place] [id number] Performing Lab: [address] ([facility]) COMPREHEN SIVE METABOLIC PANEL+MG ALKALINE PHOSPHATASE [ENZYMATIC ACTIVITY/VO LUME] IN SERUM OR PLASMA 87 40 - 150 11/23 Specimen Type: PLASMA No comment entered. Ordering Provider: AILIN CHESTER Report Released Date/Time: Nov 23, 2022 11:58 AM Reporting Lab: [facility] [address] Performing Lab: [facility] [address] [place] ([facility]) COMPREHEN SIVE METABOLIC PANEL+MG ALANINE AMINOTRANSF ERASE [ENZYMATIC ACTIVITY/VO LUME] IN SERUM OR PLASMA 28 11/23 Specimen Type: PLASMA No comment entered. Ordering Provider: AILIN CHESTER Report Released Date/Time: Nov 23, 2022 11:58 AM Reporting Lab: [facility] [address] Performing Lab: [facility] [phone] [place] [address] ([facility]) COMPREHEN SIVE METABOLIC PANEL+MG ASPARTATE AMINOTRANSF ERASE [ENZYMATIC ACTIVITY/VO LU[place]] IN SERUM OR PLASMA 33 11/23 Specimen Type: PLASMA No comment entered. Ordering Provider: AILIN CHESTER Report Released Date/Time: Nov 23, 2022 11:58 AM Reporting Lab: [facility] [address] Performing Lab: [facility] [address] [place] ([facility]) COMPREHEN SIVE METABOLIC PANEL+MG GLOMERULAR FILTRATION RATE/1.73 SQ M.PREDICTED [VOLUME RATE/AREA] IN SERUM, PLASMA OR BLOOD BY CREATININE- BASED FORMULA (CKD-EPI 2020) 61 11/23 Specimen Type: PLASMA No comment entered. Ordering Provider: AILIN CHESTER Report Released Date/Time: Nov 23, 2022 11:58 AM Reporting Lab: [facility] [address] Performing Lab: [facility] [address] [place] ([facility]) HEMOGLOBI N A1C HEMOGLOBIN A1C/HEMOGLO BIN.TOTAL IN [...] 9.3. Ref: http://www. ngsp.org/[place] Pdata.asp Ordering Provider: ALIIN CHESTER Report Released Date/Time: Nov 23, 2022 11:58 AM Reporting Lab: [facility] [address] Performing Lab: [facility] [address] [place] ([facility]) Vital Signs Combined list of inpatient and [...] DC Date Status [place] [facility] Outpatient Encounter [id number] 03/29 QASIM SCHULZ [facility] [place] [facility] Outpatient Encounter [id number] 04/05 QASIM SCHULZ [facility] [place] [facility] Outpatient Encounter [id number] 07/31 [place] [facility] [place] [facility] Outpatient Encounter [id number] 08/21 [place] [facility] [place] [facility] Outpatient Encounter [id number] 09/20 [place] [facility] Outpatient [facility]counter [id number] [id number] 513 11/11 [facility] [place] [facility] Outpatient Encounter [id number] ZARI POWER 11[facility]16 [place] [facility] [place] [facility] Outpatient Encounter [id number] [facility] [place] [facility] OFFICE O/P EST MOD 30-39 MIN [id number] Diagnos is: ICD-10- CM Z00.00 Encntr for general adult medical exam w/o abnorma l finding s
CANDELARIO [place]STER DA K 11/23 [place] ([facility]) [place] ([facility]) GAIT TRAINING THERAPY [id number] Diagnos is: ICD-10- CM R26.89 Other abnorma lities of gait and mobilit y
OMAYRA JAMESON NTER V 11/23 [place] ([facility]) [place] [facility] Outpatient Encounter [id number] SA JAMARI JAMESON R 12/11 [place] [facility] [place] [facility] Outpatient Encounter [id number] 12/25 [place] [facility] [place] [facility] Outpatient Encounter [id number] SA JAMARI JAMESON R 12/28 [place] [facility] [place] [facility] Outpatient Encounter [id number] 01/05 [place] [facility] [place] [facility] Outpatient Encounter [id number] 01/11 [place] [facility] [place] [facility] Outpatient Encounter [id number] 01/16 [place] [facility] OFFICE O/P EST HI 40-54 MIN [id number] Diagnos is: ICD-10- CM I50.9 Heart failure , unspeci fied
CANDELARIO CHESTER 01/23 [facility] ([facility] [place] [facility] Outpatient Encounter [id number] Marcus POTTS I 01/24 [place] [facility] [place] [facility] Outpatient Encounter [id number] Danica TORRE 02/05 [place] [facility] [facility] [place] [facility] Outpatient Encounter [id number] 02/09 [place] [facility] [place] [facility] Outpatient Encounter [id number] Danica TORRE 02/09 [place] [facility] [place] [facility] Outpatient Encounter [id number] 02/14 [place] [facility] [place] [facility] Outpatient Encounter [id number] 02/15 [place] [facility] [place] [facility] Outpatient Encounter [id number] 02/19 [place] [facility] [place] [facility] Outpatient Encounter [id number] 02/20 [place] [facility] [place] [facility] Outpatient Encounter [id number] 02/20 [place] [facility] [place] [facility] Outpatient Encounter [id number] 02/20 [place] [facility] [place] [facility] Outpatient Encounter [id number] 02/20 [place] [facility] [place] [facility] Outpatient Encounter [id number] 02/21 [place] [facility] [place] [facility] QNHP OL DIG ASSMT&MGMT 5-10 [id number] Diagnos is: ICD-10- CM E11.9 Type 2 diabete s mellitu s without complic ations< br/> HARDER,SIVA LY 02/22 [place] [facility] PRO PHONE CALL 11-20 MIN [id number] [id number] Diagnos is: ICD-10- CM I50.9 Heart failure , unspeci fied
HENRICH,BR ANDON M 02/23 [facility] ([facility] [place] [facility] Outpatient Encounter [id number] 02/26 [place] [facility] [place] [facility] Outpatient Encounter [id number] 03/01 [place] [facility] [place] [facility] Outpatient Encounter [id number] SA TRINO RA R 03/09 [place] [facility] [place] [facility] Outpatient Encounter [id number] 03/14 [place] [facility] [place] [facility] Outpatient Encounter [id number] SA TRINO RA R 04/12 [place] [facility] [place] [facility] Outpatient Encounter [id number] SA TRINO RA R 04/16 [place] [facility] [place] [facility] Outpatient Encounter [id number] TRINO RA R 05/01 [place] [facility] [place] [facility] Outpatient Encounter [id number] 07/11 [place] [facility] [place] [facility] Outpatient Encounter [id number] [place] [facility] [place] [facility] Outpatient Encounter [id number] 07/12 [facility] [place] [facility] HC PRO PHONE CALL 5-10 MIN [id number] Diagnos is: ICD-10- CM 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
LICOERISVIVRADHA Frey [facility] REPAIR/MOD IFYING [id number] Diagnos is: ICD-10- CM 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
CARY CORCORAN C 08/09 [facility] HEARING AID FITTING/CH ECKING [id number] Diagnos is: ICD-10- CM 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
Sy MAKI 09/17 [facility] Social History Combined list of available smoking, tobacco, and other social history from Department of Defense and Veterans Affairs facilities. Social History Type Response Date Comment [facility] e Tobacco smoking status WIIS VA-TOBACCO FORMER USER 11/23/2022 [place] ([facility]) History of tobacco use [place]-TOBACCO QUIT 1 5 YRS OR MORE 11/23/2022 [place] ([facility]) History of tobacco use VA-TOBACCO FORMER USER 11/29/2021 [place] ([facility]) History of tobacco use VA-TOBACCO FORMER USER 10/21/2020 [place] ([facility])
--- OUTSIDE RECORDS SUMMARY | 2023-10-03 09:08 | XMS_ITS | Clinical Summary ---
Author Organization [email or web address] [facility] Address [place], [place] [address] Care Team Providers Care Volunteer Firefighter Name Role Phone VotelMelquiades MD Primary Care Provider + Nurses, Advanced Heart Failure Unavailable + Shade Manuel MD Unavailable [phone] Allergies No known active allergies Medications Medication Sig Dispensed Refills Start Date End Date Status blood-glucose meterIndications: Type 2 diabetes mellitus with complication (HC) Ascensia Glucometer, Dispense meter, test strips, lancets covered by pt ins. Test 3 times daily 1 Device 1 Active Insulin [place], Disposable, (Novofine 32) 32 gauge x /4Indications:2 50.00 Diabetes Type 2, insulin dependent For administering insulin at home 4 times daily or as needed 400 Each 3 2 Active ketoconazole 2% topical (NIZORAL) cream Apply topically to affected area(s) once daily if needed. 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 0 3 Active triamcinolone (ARISTOCORT; KENALOG) 0.1 % creamIndications: Rash Apply topically to affected area(s) two times daily. APPLY to affected areas 2X DAILY FOR 2 WEEKS AT A TIME NEEDED FOR FLARES 60 g 4 3 Active atorvastatin (LIPITOR) 40 mg tabletIndications :Hyperlipidemia LDL goal <70 Take one tab daily at bedtime. 90 Tablet 3 3 Active pantoprazole (PROTONIX) 40 mg delayed-release tabletIndications :Gastroesophageal reflux disease, unspecified whether esophagitis present Take 1 Tablet (40 mg) by mouth once daily. 90 Tablet 3 3 Active Eliquis 5 mg tabletIndications :Paroxysmal atrial fibrillation (HC) TAKE 1 TABLET(5 MG) BY MOUTH TWICE DAILY 180 Tablet 1 3 Active clopidogreL (PLAVIX) 75 mg tabletIndications :NSTEMI (non-ST elevated myocardial infarction) (HC) TAKE 1 TABLET(75 MG) BY MOUTH EVERY MORNING 90 Tablet 1 3 Active metoprolol succinate (Toprol XL) 25 mg Sustained-Release tabletIndications :HFrEF (heart failure with reduced ejection fraction) (HC) Take 0.5 Tablets (12.5 mg) by mouth once daily in the evening. 0 3 Active acetaminophen (TYLENOL) 325 mg tabletIndications :Pain Take 2 Tablets (650 mg) by mouth every 4 hours if needed for Pain. Max acetaminophen dose: 4000mg in 24 hrs. 0 3 Active polyethylene glycol (MIRALAX; GLYCOLAX) 17 g per packet packetIndications :Constipation, unspecified constipation type Mix 17 g in liquid then take by mouth once daily. 0 3 Active sennosides 17.2 mg tabIndications:Co nstipation, unspecified constipation type Take 17.2 mg by mouth two times daily. 0 3 Active mirtazapine (REMERON) 7.5 mg as half [...] mg tablet Take 20 mg by mouth. 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 Up to 60 units daily. 30 mL 11 4 Active levothyroxine (Synthroid) 75 mcg tabletIndications :Hypothyroidism (acquired) Take 1 Tablet (75 mcg) by mouth before breakfast. 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 E10.9 IDDM type I - Test 4 times/day. Reason: complicated diabetes. 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 12/09/2022 NSTEMI (non-ST elevated myocardial infarction) 0 12/09/2022 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 11/25/2019 HTN (hypertension) 10/28/2015 Hyperlipidemia LDL goal <70 10/28/2015 Adenomatous colon polyp 04/13/2015 Overview: Colonoscopy 04/2015 polyps repeat in 5 years Colonoscopy 03/2020 polyps, repeat in 5 years Background diabetic retinopathy(362.01) 07/10/19 08 Unspecified hearing loss 07/10/2007 Coronary atherosclerosis of unspecified type of vessel, mcgrath or graft Overview: 4 vessel CABG 2001 Lexiscan only for cardiac evaluation - no treadmill Other ill-defined and unknow n causes of morbidity and mortality Impotence of organic origin Resolved Problems Problem Noted Date Diagnosed Date Resolved Date Type 2 diabetes mellitus with complication 11/16/2017 12/22/2022 Heart disease, unspecified 0 07/10/2007 Encounters Date Type Department Care Team Description 10/01/2023 12:58 PM CDT - 10/01/2023 11:59 PM CDT Hospital Encounter [facility] ? [facility] [address] [place] [address] Votel, MD Lesly Cleary Isabelle, PT 10/01/2023 Travel 09/30/2023 Refill [facility] [address] [place] [address] Shade Manuel MD Refill Request (Dapagliflozin Propanediol) 09/27/2023 12:56 PM CDT - 09/27/2023 11:59 PM CDT Hospital Encounter [facility] ? [facility] [address] [place] [address] Votel, MD Lesly Cleary Isabelle, PT 09/27/2023 Travel 09/24/2023 12:57 PM CDT - 09/24/2023 11:59 PM CDT Hospital Encounter [facility] ? [facility] [address] [place] [address] Votel, MD Lesly Cleary Isabelle, PT 09/24/2023 Travel 09/20/2023 11:45 AM CDT - 09/20/2023 11:59 PM CDT [facility] [address] [place] [address] Votel, MD Lesly Cleary Isabelle, PT 09/20/2023 Travel 09/19/2023 Telephone [facility] [address] [place] [address] VotelMelquiades MD 09/17/2023 Telephone [facility] [address] [place] [address] Votel, Melquiades Gray MD orders (wound care 2 times per week) 09/13/2023 1:00 PM CDT - 09/13/2023 11:59 PM CDT Hospital Encounter [facility] ? [facility] [address] [place] [address] Votel, MD Lesly Cleary Isabelle, PT 09/13/2023 Travel 09/10/2023 12:53 PM CDT - 09/10/2023 11:59 PM CDT Hospital Encounter [facility] ? [facility] [address] [place] [address] Votedebbie, MD Lesly Cleary Isabelle, PT 09/10/2023 Travel 09/06/2023 9:27 AM CDT - 09/06/2023 11:59 PM CDT Hospital En[facility] [address] [place] [address] Votedebbie, MD Lesly Cleary Isabelle, PT 09/06/2023 Travel 08/31/2023 Telephone [facility] [address] [place] [address] Melquiades Man MD ORDERS 08/23/2023 12:46 PM CDT - 08/23/2023 11:59 PM CDT [facility] ? [facility] [address] [place] [address] GunnarteMelquiades lewis MD Tonsfeldt, Isabelle, PT History of leg amputation (HC) 08/23/2023 Travel 08/17/2023 Telephone [facility] [address] [place] [address] Melquiades Man MD Home Care ([facility]) 08/08/2023 Telephone [facility] [address] [place] [address] Melquiades Man MD 08/01/2023 Orders Only [facility] Scanner 1 scan: (1-Ord) [facility], 08/01/2023 07/31/2023 Telephone [facility] [address] [place] [address] Melquiades Man MD 07/27/2023 11:30 AM CDT Office Visit [address] [place] [address] Shade Manuel MD CV Heart Failure Est (6 mo f/u, discuss recent med changes. ) 07/27/2023 10:45 AM CDT Orders Only [facility] [place] [address] [place] [address] [place] [address] Lab 07/27/2023 Travel 07/24/2023 Telephone [facility] [address] [place] [address] Melquiades Man MD 07/24/2023 Refill [facility] [address] [place] [address] Melquiades Man MD Refill Request (Fiasp Flextouch Pen Inj 3ml ) 07/20/2023 1:00 PM [employer] Telemedicine [facility] [address] [place] [address] Santana Nails MD Wound Check 07/20/2023 Refill [facility] [address] [place] [address] Melquiades Man MD Refill Request; NOVOLOG FLEXPEN 07/20/[address] [address] Ezequiel Nye, [facility] 07/19/[address] [address] Melquiades Man MD 07/18/[address] [address] Melquiades Man MD Refill Request (Basaglar 100 U/ML Kwikpen INJ 3ml) 07/17/2023 2:05 PM [employer] Office Visit [address] [address] Melquiades Man MD Medication Management; Follow Up (Discharged from detention 06/20/23, left foot wound developed while at the detention) 07/17/[address] [address] Melquiades Man MD Refill Request (insulin) 07/17/2023 Travel 07/17/[address] [address] Melquiades Man MD Form 07/12/[address] [address] Melquiades Man MD 07/11/2023 Telephone [facility] [address] [place] [address] Ezequiel Nye, [facility] [employer] (AUTHORIZATION) 07/10/2023 Telephone [facility] [address] [place] [address] Votel, Melquiades Gray MD 07/05/2023 Telephone [facility] [address] [place] [address] Votel, Melquiades Gray MD Home Care from Last 3 Months Immunizations Name Administration Dates Next Due COVID-19 vaccine (Moderna 100mcg/0.5mL) PF, MDV 03/09/2021 COVID-19 vaccine (Moderna 50 mcg/0.5mL) 12YO+ BIVALENT PF, MDV 03/29/2022 COVID-19 vaccine (Pfizer-Bio NTech 30mcg/0.3mL) PF, MDV 03/09/2021,07/24/2020,07/03/2020 COVID-19 vaccine Comirnaty (Pfizer-BioNTech 30mcg/0.3mL) 12YO+ [id number] Formula PF, SDV, PFS 03/05/2023 Influenza Virus, [...] Brother kidney problems Heart Disease Father 1st SD at 65 d 77 yo CHF Diabetes Mother Heart Disease Mother d 64 yo SD Genetic Other There is a posi tive [...] T Respiratory Rate 24 05/03/2023 7:04 AM MILL TENDER [employer]ARM UP Oxygen Saturation 100% 07/27/2023 11:51 AM CDT Inhaled Oxygen Concentration - - Weight 81.6 kg (180 lb) 07/27/2023 11:51 AM CDT pt reported Height 175.3 cm (5' 9.02) 07/27/2023 11:51 AM C DT Body Mass Index 26.57 07/27/2023 11:51 AM CDT Plan of Treatment Upcoming Encounters Date Type Department Care Team (Late st Contact Info) Description 10/04/2023 1:45 PM CDT Appointment [facility] [address], [place] [address] Zoila Grace, PT [address], [place] [address] 10/11/2023 1:00 PM CDT Appointment [facility] [address], [place] [address] Zoila Grace, PT [address] [place] [address] 10/15/2023 1:00 PM CDT Appointment [facility] [address] [place] [address] Zoila Grace, PT [address] [place] [address] 10/18/2023 1:45 PM CDT Appointment [facility] [address], [place] [address] Farheen Puentes, PT [address] [address] 10/22/2023 1:30 PM CDT Appointment [facility] [address], [place] [address] Jasmin Hernández, PT [address] [place] [address] 10/25/2023 1:15 PM CDT Appointment [facility] [address] [place] [address] Jasmin Hernández, PT [address] [place] [address] 10/29/2023 12:30 PM CDT Appointment [facility] [address] [place] [address] Jasmin Hernández, PT [address] [place] [address] 10/30/2023 12:50 PM CDT Office Visit [facility] [address] [place] [address] Melquiades Man MD [address] [place] [address] 11/01/2023 1:00 PM CDT Appointment [facility] [address] [place] [address] Jasmin Hernández, PT [address] [place] [address] 11/05/2023 1:00 PM CDT Appointment [facility] [address] [place] [address] Jasmin Hernández, PT [address] [place] [address] Health Maintenance Due Date Last Done Comments [...] 7,600(H) <450 pg/mL 07/27/2023 11:09 PM CDT [facility] Blood BLOOD SPECIMEN / Unknown Butterfly [...] [facility] [address] [place] [address], * (ABNORMAL) BASIC METABOLIC PANEL (07/27/2023 10:49 AM CDT) SODIUM 137 136 - 145 mmol/L 07/27/2023 11:08 PM CDT [facility] POTASSIUM 4.4 3.5 - 5.1 mmol/L 07/27/2023 11:08 PM CDT [facility] CHLORIDE 94(L) 98 - 107 mmol/L 07/27/2023 11:08 PM T [facility] CO2,TOTAL 26 22 - 29 mmol/L 07/27/2023 11:08 PM T [facility] ANION GAP 17 5 - 18 07/27/2023 11:08 PM T [facility] GLUCOSE 317(H) 70 - 99 mg/dL 07/27/2023 11:08 PM T [facility] CALCIUM 10.1 8.8 - 10.2 mg/dL 07/27/2023 11:08 PM T [facility] BUN 52(H) 8 - 23 mg/dL 07/27/2023 11:08 PM T [facility] CREATININE 1.74(H) 0.70 - 1.20 mg/dL 07/27/2023 11:08 PM [facility] BUN/CREAT RATIO 30(H) 10 - 20 11:08 PM T [facility] eGFR 39(L) >90 mL/min/1.7 3m2 07/27/2023 11:08 PM [facility] Comment:As of 2021, eG FR is calculated by the CKD-EPI creatinine equation without race adjustment. ??eGFR can be influenced by muscle mass, exercise, and diet. ??The reported eGFR is an estimation only and is only applicable if the renal function is stable. Blood BLOOD SPECIMEN / Unknown Butterfly / Unknown 07/27/2023 10:49 AM CDT 07/27/2023 10:50 AM CDT Melquiades Man MD CHEMISTRY [facility] 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, receiving hemodialysis, has chronic open wounds/skin damage, has long-term percutaneous indwelling medical devices Exclusions for nares collection (if <12 months since positive culture) include all of the previous exclusions plus patients on antibiotics 7 days prior to collection 03/08/2023 05/31/2023 MDRO-GNB 04/26/2023 04/26/2023 Advance Directives Documents on File Type Date Recorded Patient General Superintendent Expl anation POL 03/26/2023 * Full Code (Latest Code Status [...] Code Status Discussion: Reviewed Preferences Care Teams Volunteer Firefighter Relationship Specialty Start Date End Date Melquiades Man MD [address] [place] [address] PCP - General 11/20/05 Nurses, Advanced Heart Failure [address] [place] [address] Advanced Heart Failure/Transplant Card 01/24/23 Shade Manuel MD [address] [facility] [place] [address] Cardiovascular Disease 01/24/23
--- OUTSIDE RECORDS SUMMARY | 2023-10-03 09:08 | XMS_ITS | Clinical Summary ---
Author Organization [facility] Address [address] [place] [address] Care Team Providers Care Hvac Project Manager Name Role Phone Elsewhere, Pcp Primary Care Provider Unavailabl e Source Comments Patient records contain information from all sites at [facility]. For routine questions regarding patient records, call [phone] during business hours, M-F 8:00 AM - 5:00 PM Central Time. Record requests for emergency care only can be directed to [phone] at any time.[facility] Allergies No known active allergies Medications [...] Heel: Area continues to improve. Wound measures [id number]. 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 Woods was admitted to [facility] April 10 following BK right lower [...] Last T4 was 0.92 in April 2023. pharmacy resident confirmed levothyroxine is given every morning (6am) without other medications. Therefore, we will increase levothyroxine 50mcg to 75mcg and rechecked TSH in 6 weeks. Nursing instructed to continue monitoring for symptoms of hypothyroidism and contact [place] provider if any concerns. 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 [...] and palpitation. 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 Atherosclerosis Of [place] Ar teries Of Other Extremities With [...] 05/24/2023 Overview: Onychomycosis of toenails; Original Code: [id number] Original Codesystem: SNOMED CT Classification: Medical Confirmation [...] Comments Blood Pressure 107/66 06/18/2023 1:10 PM RAILROAD SIGNAL TECHNICIAN Pulse 78 06/18/2023 1:10 PM RAILROAD SIGNAL TECHNICIAN Temperature 36.6 ??C (97.8 ??F) 06/18/2023 1:10 PM CS T Respiratory Rate 16 06/18/2023 1:10 PM RAILROAD SIGNAL TECHNICIAN Oxygen Saturation 95% 06/18/2023 1:10 PM RAILROAD SIGNAL TECHNICIAN Inhaled Oxygen Concentration - - Weight 75.8 kg (167 lb) 06/18/2023 1:10 PM RAILROAD SIGNAL TECHNICIAN Height 175.3 cm (5' 9) 04/12/2023 3:21 PM RAILROAD SIGNAL TECHNICIAN Body Mass Index 24.66 04/12/2023 3:21 PM RAILROAD SIGNAL TECHNICIAN Plan of Treatment Health Maintenance Due Date [...] Advance Directives For more information, please contact: [phone] * DNR/DNI (Latest Code Status on File) Date Activated Date Inactivated Comments 05/24/2023 6:14 PM * DNR/DNI Date Activated Date Inactivated Comments 04/12/2023 4:11 PM 04/16/2023 7:15 AM Care Teams Hvac Project Manager Relationship Specialty Start Date End Date Elsewhere, Pcp PCP - General Internal Medicine 08/28/23
--- OUTSIDE RECORDS SUMMARY | 2023-10-03 09:08 | XMS_ITS ---
Author Organization [facility] Address [address] [place] [address] Care Team Providers Care Vallez Filter Operator Name Role Phone Unavailable Unavailable Unavailable Surgery Details Not on file Complications Check Surgery Details section. Procedure Estimated Blood Loss Check Surgery Details section. Procedure Findings Check Surgery Details section. Procedure Specimens Taken Check Surgery Details section.
--- OUTSIDE RECORDS SUMMARY | 2023-10-03 09:08 | XMS_ITS | Referral Summary ---
Author Organization [facility] Address [address] [place] [address] Care Team Providers Care Tax Processor Name Role Phone Elsewhere, Pcp Primary Care Provider Unavailabl e Source Comments Patient records contain information from all sites at [facility]. For routine questions regarding patient records, call [phone] during business hours, M-F 8:00 AM - 5:00 PM Central Time. Record requests for emergency care only can be directed to [phone] at any time.[facility] Allergies No known active allergies Medications Medication [...] Heel: Area continues to improve. Wound measures [id number]. Edges well defined, attached and 100% re-epithelialized [...] will follow up with his PCP in [place] Clinical Transplant Coordinator (Current) Anticoagulant Treatment 08/2022 Overview: On apixaban [...] standard wheelchair Mr. Woods was admitted to [facility] April 10 following BK right [...] Last T4 was 0.92 in April 2023. academic vice president confirmed levothyroxine is given every morning (6am) without other medications. Therefore, we will increase levothyroxine 50mcg to 75mcg and rechecked TSH in 6 weeks. Nursing instructed to continue monitoring for symptoms of hypothyroidism and contact [employer] provider if any concerns. 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 [...] and palpitation. 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 Atherosclerosis Of [place] Ar teries Of Other Extremities With Ulceration [...] for COVID-19 12/27/2022. Treated with remdesivir at [facility]. Anemia 01/16/2023 04/12/2023 Overview: [...] 05/24/2023 Overview: Onychomycosis of toenails; Original Code: [id number] Original Codesystem: SNOMED CT Classification: Medical Confirmation [...] Comments Blood Pressure 107/66 06/18/2023 1:10 PM FREIGHT AGENT Pulse 78 06/18/2023 1:10 PM FREIGHT AGENT Temperature 36.6 ??C (97.8 ??F) 06/18/2023 1:10 PM CS T Respiratory Rate 16 06/18/2023 1:10 PM FREIGHT AGENT Oxygen Saturation 95% 06/18/2023 1:10 PM FREIGHT AGENT Inhaled Oxygen Concentration - - Weight 75.8 kg (167 lb) 06/18/2023 1:10 PM FREIGHT AGENT Height 175.3 cm (5' 9) 04/12/2023 3:21 PM FREIGHT AGENT Body Mass Index 24.66 04/12/2023 3:21 PM FREIGHT AGENT Plan of Treatment Not on file Advance Directives For more information, please contact: [phone] * DNR/DNI (Latest Code Status on File) Date Activated Date Inactivated Comments 05/24/2023 6:14 PM * DNR/DNI Date Activated Date Inactivated Comments 04/12/2023 4:11 PM 04/16/2023 7:15 AM Care Teams Tax Processor Relationship Specialty Start Date End Date Elsewhere, Pcp PCP - General Internal Medicine 08/28/23
== END 2023-10-03 09:06 | disposition home or self-care (01) ==
LOC: WOUND 09:05
PROVIDERS: PCP Family Medicine; Visit Provider Surgery
DX: E11.621 Type 2 diabetes mellitus with foot ulcer (principal); L97.422 Non-pressure chronic ulcer of left heel and midfoot with fat layer exposed; Z79.4 Long term (current) use of insulin; Z79.84 Long term (current) use of oral hypoglycemic drugs
CPT/HCPCS: 97597; G0463

== ENCOUNTER 2023-10-10 09:09 | Outpatient (CLI) | payer MEDICARE, BC, SELFPAY ==
--- OUTSIDE RECORDS SUMMARY | 2023-10-10 09:11 | XMS_ITS ---
Author Organization [facility] Address [address] [place] [address] Care Team Providers Care Tube Blower Name Role Phone Unavailable Unavailable Unavailable Surgery Details Not on file Complications Check Surgery Details section. Procedure Estimated Blood Loss Check Surgery Details section. Procedure Findings Check Surgery Details section. Procedure Specimens Taken Check Surgery Details section.
--- OUTSIDE RECORDS SUMMARY | 2023-10-10 09:11 | XMS_ITS | Clinical Summary ---
Author Organization [facility] Address [place], [place] [address] Care Team Providers Care Metal Roaster Name Role Phone VotelMelquiades MD Primary Care Provider + Nurses, Advanced Heart Failure Unavailable + Shade Manuel MD Unavailable [phone] Allergies No known active allergies Medications Medication Sig Dispensed Refills Start Date End Date Status blood-glucose meterIndications :Type 2 diabetes mellitus with complication (HC) [employer] Glucometer, Dispense meter, test strips, lancets covered by pt ins. Test 3 times daily 1 Device 1 Active Insulin [place], Disposable, (Novofine 32) 32 gauge x 1/4Indications: 250.00 Diabetes Type 2, insulin dependent For administering insulin at home 4 times daily or as needed 400 Each 3 2 Active ketoconazole 2% topical (NIZORAL) cream Apply topically to affected area(s) once daily if needed. APPLY TO AFFECTED AREA BETWEEN EYEBROWS 1-2X DAILY FOR 2 WEEKS AT A TIME NEEDED FOR FLARES 1 Active nitroglycerin (NITROSTAT) 0.4 mg sublingual tabletIndication s:Coronary artery disease involving [place] heart without angina pectoris, unspecified vessel or lesion type PLACE 1 TABLET UNDER THE TONGUE EVERY 5 MINUTES IF NEEDED FOR CHEST PAIN 50 Tablet 3 Active Additional Information Patient taking differently: 0.4 mgSublingualQ 5MIN PRN, Chest Pain, Informant: Family, Reported on 12/27/2022 artificial tears, peg 400-propylene glycol, (Systane) 0.4-0.3 % ophthalmic dropperetteIndic ations:Dry eyes Place 2 Drops into both eyes once daily if needed for Dry Eyes. 0 3 Active triamcinolone (ARISTOCORT; KENALOG) 0.1 % creamIndications :Rash Apply topically to affected area(s) two times daily. APPLY to affected areas 2X DAILY FOR 2 WEEKS AT A TIME NEEDED FOR FLARES 60 g 4 3 Active atorvastatin (LIPITOR) 40 mg tabletIndication s:Hyperlipidemia LDL goal <70 Take one tab daily at bedtime. 90 Tablet 3 3 Active pantoprazole (PROTONIX) 40 mg delayed-release tabletIndication s:Gastroesophage al reflux disease, unspecified whether esophagitis present Take 1 Tablet (40 mg) by mouth once daily. 90 Tablet 3 3 Active Eliquis 5 mg tabletIndication s:Paroxysmal atrial fibrillation (HC) TAKE 1 TABLET(5 MG) BY MOUTH TWICE DAILY 180 Tablet 1 3 Active clopidogreL (PLAVIX) 75 mg tabletIndication s:NSTEMI (non-ST elevated myocardial infarction) (HC) TAKE 1 TABLET(75 MG) BY MOUTH EVERY MORNING 90 Tablet 1 3 Active metoprolol succinate (Toprol XL) 25 mg Sustained-Releas e tabletIndication s:HFrEF (heart failure with reduced ejection fraction) (HC) Take 0.5 Tablets (12.5 mg) by mouth once daily in the evening. 0 3 Active acetaminophen (TYLENOL) 325 mg tabletIndication s:Pain Take 2 Tablets (650 mg) by mouth every 4 hours if needed for Pain. Max acetaminophen dose: 4000mg in 24 hrs. 0 3 Active polyethylene glycol (MIRALAX; GLYCOLAX) 17 g per packet packetIndication s:Constipation, unspecified constipation type Mix 17 g in liquid then take by mouth once daily. 0 3 Active sennosides 17.2 mg tabIndications:C onstipation, unspecified constipation type Take 17.2 mg by mouth two times daily. 0 3 Active mirtazapine (REMERON) 7.5 mg as half tablet Take 7 mg by mouth at bedtime. Active spironolactone (ALDACTONE) 25 mg tablet Take 20 mg by mouth once daily. Active multivitamins with minerals tablet Take 1 Tablet by mouth once daily. Active emollient (Vanicream) topical cream Apply topically to affected area(s) two times daily. Active furosemide (LASIX) 20 mg tablet Take 20 mg by mouth. 4 025 Active levothyroxine (Synthroid) 75 mcg tabletIndication s:Hypothyroidism (acquired) Take 1 Tablet (75 mcg) by mouth before breakfast. 90 Tablet 3 4 Active blood sugar diagnostic (Contour Next Test Strips) stripIndications :Type 2 diabetes mellitus with complication (HC) Dispense item covered by pt ins. E10.9 IDDM type I - Test 4 times/day. Reason: complicated diabetes. 400 Each 3 4 Active Farxiga 10 mg tabletIndication s:HFrEF (heart failure with reduced ejection fraction) (HC) Take 1 Tablet (10 mg) by mouth once daily. 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 Increase by 2 units every 3 days until fasting blood sugars are in the 150s. Maximum of 25 units daily. 15 mL 3 4 Active insulin aspart niacinamide (Fiasp FlexTouch U-100 Insulin) 100 unit/mL (3 mL) penIndications:T ype 2 diabetes mellitus with peripheral neuropathy (HC) Give 8 units three times daily with meals + sliding scale <150 no additional insulin, 150-199: 2 unit, 200-249: 4 units, 250-299: 6 units, 300-349: 8 units, 350-399: 10 units, >400: 12 units and call MD. Up to 60 units daily 45 mL 5 4 Active clotrimazole (LOTRIMIN) 1 % creamIndications :Balanitis Apply topically to affected area(s) two times daily. Use for 3 weeks. 45 g 4 Active dapagliflozin propanediol (Farxiga) 10 mg tabletIndication s:HFrEF (heart failure with reduced ejection fraction) (HC) 10 mg po daily, Resume after d/c from snf 90 Tablet 3 024 Discontinued insulin aspart, U-100, (NOVOLOG FLEXPEN) 100 unit/mL (3 mL) penIndications:T ype 2 diabetes mellitus with peripheral neuropathy (HC) Give 8 units three times daily with meals + sliding scale <150 no additional insulin, 150-199: 2 unit, 200-249: 4 units, 250-299: 6 units, 300-349: 8 units, 350-399: 10 units, >400: 12 units and call MD. Up to 60 units daily. 30 mL 11 4 024 Discontinued(*P atient states no longer taking) Basaglar KwikPen U-100 Insulin 100 unit/mL (3 mL) penIndications:T ype 2 diabetes mellitus with peripheral neuropathy (HC) Inject 15 units subcutaneous before bedtime. 3 mL 5 4 024 Discontinued(Re order (E-cancel not sent)) insulin aspart niacinamide (Fiasp FlexTouch U-100 Insulin) 100 unit/mL (3 mL) penIndications:T ype 2 diabetes mellitus with peripheral neuropathy (HC) Give 8 units three times daily with meals + sliding scale <150 no additional insulin, 150-199: 2 unit, 200-249: 4 units, 250-299: 6 units, 300-349: 8 units, 350-399: 10 units, >400: 12 units and call MD. 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 11/25/2019 HTN (hypertension) 10/28/2015 Hyperlipidemia LDL goal <70 10/28/2015 Adenomatous colon polyp 04/13/2015 Overview: Colonoscopy 04/2015 polyps repeat in 5 years Colonoscopy 03/2020 polyps, repeat in 5 years Background diabetic retinopathy(362.01) 07/10/19 08 Unspecified hearing loss 07/10/2007 Coronary atherosclerosis of unspecified type of vessel, [place] or graft Overview: 4 vessel CABG 2001 Lexiscan only for cardiac evaluation - no treadmill Other ill-defined and unknow n causes of morbidity and mortality Impotence of organic origin Resolved Problems Problem Noted Date Diagnosed Date Resolved Date Type 2 diabetes mellitus with complication 11/16/2017 12/22/2022 Heart disease, unspecified 0 07/10/2007 Encounters Date Type Department Care Team Description 10/09/2023 Telephone [facility] [address] [place] [address] Melquiades Man MD Form 10/05/2023 Transcribe Orders [facility] [address] [place] [address] Isatu Hanley MD 10/04/2023 1:42 PM CDT - 10/04/2023 11:59 PM CDT Hospital Encounter [facility] ? [facility] [address] [place] [address] Melquiades Man MD [facility] sal[facility], PT 10/04/2023 9:35 AM CDT Office Visit [facility] [address] [place] [address] Rachel Sauceda, DO Diabetes 10/04/2023 Telephone [facility] [address] [place] [address] Rachel Sauceda, DO Medication Management 10/04/2023 Travel 10/03/2023 Refill [facility] [address] [facility] [place] [address] Shade Manuel MD Refill Request (Farxiga) 10/01/2023 12:58 PM CDT - 10/01/2023 11:59 PM CDT Hospital Encounter [facility] ? [facility] [address] [facility] [place] [address] Melquiades Man MD Tonsfeldt, Isabelle, PT 10/01/2023 Travel 09/30/2023 Refill [facility] [address] [facility] [address] [place] [address] Shade Manuel MD Refill Request (Dapagliflozin Propanediol) 09/27/2023 12:56 PM CDT - 09/27/2023 11:59 PM CDT Hospital Encounter [facility] ? [facility] [address] [facility] [place] [address] Melquiades Man MD Tonsfeldt, Isabelle, PT 09/27/2023 Travel 09/24/2023 12:57 PM CDT - 09/24/2023 11:59 PM CDT [facility] [address] [place] [address] Melquiades Man MD Tonsfeldt, Isabelle, PT 09/24/2023 Travel 09/20/2023 11:45 AM CDT - 09/20/2023 11:59 PM CDT [facility] [address] [place] [address] Melquiades Man MD Tonsfeldt, Isabelle, PT 09/20/2023 Travel 09/19/[address] [address] Melquiades Man MD 09/17/2023 Telephone [facility] [address] [place] [address] VoteMelquiades lewis MD orders (wound care 2 times per week) 09/13/2023 1:00 PM CDT - 09/13/2023 11:59 PM CDT Hospital Encounter [facility] ? [facility] [address], [place] [address] Votel, MD Lesly Cleary Isabelle, PT 09/13/2023 Travel 09/10/2023 12:53 PM CDT - 09/10/2023 11:59 PM CDT Hospital Encounter [facility] ? [facility] [address] [place] [address] Votel, MD Lesly Cleary Isabelle, PT 09/10/2023 Travel 09/06/2023 9:27 AM CDT - 09/06/2023 11:59 PM CDT Hospital Encounter [facility] ? [facility] [address], [place] [address] Gunnartedebbie, MD Lesly Cleary Isabelle, PT 09/06/2023 Travel 08/31/2023 Telephone [facility] [address] [place] [address] VoMelquiades sotomayor MD ORDERS 08/23/2023 12:46 PM CDT - 08/23/2023 11:59 PM CDT [facility] [address], [place] [address] Gunnartedebbie, MD Lesly Cleary Isabelle, PT History of leg amputation (HC) 08/23/2023 Travel 08/17/2023 Telephone [facility] [address] [place] [address] Melquiades Man MD Home Care ([facility]) 08/08/2023 Telephone [facility] [address] [place] [address] Melquiades Man MD 08/01/2023 Orders Only [facility] Scanner 1 scan: (1-Ord) [facility], 08/01/2023 07/31/2023 Telephone [facility] [address] [place] [address] Melquiades Man MD 07/27/2023 11:30 AM CDT Office Visit [address] [facility] [place] [address] Shade Manuel MD CV Heart Failure Est (6 mo f/u, discuss recent med changes. ) 07/27/2023 10:45 AM CDT Orders Only [facility] [address] [place] [address] [address] [facility] [place] [address] Lab 07/27/2023 Travel 07/24/2023 Telephone [facility] [address] [place] [address] Melquiades Man MD 07/24/2023 Refill [facility] [address] [place] [address] Melquiades Man MD Refill Request (Fiasp Flextouch Pen Inj 3ml ) 07/20/2023 1:00 PM SALES PLANNING COORDINATOR Telemedicine [facility] [address] [place] [address] Santana Nails MD Wound Check 07/20/2023 Refill [facility] [address] [place] [address] Melquiades Man MD Refill Request; NOVOLOG FLEXPEN 07/20/2023 Telephone [facility] [address] [place] [address] Ezequiel Nye, AuD Hearing Aid 07/19/2023 Telephone [facility] [address] [place] [address] Melquiades Man MD 07/18/2023 Refill [facility] [address] [place] [address] Melquiades Man MD Refill Request (Basaglar 100 U/ML Kwikpen INJ 3ml) 07/17/2023 2:05 PM SALES PLANNING COORDINATOR Office Visit [facility] [address] [place] [address] Melquiades Man MD Medication Management; Follow Up (Discharged from assisted 06/20/23, left foot wound developed while at the assisted) 07/17/2023 Telephone [facility] [address] [place] [address] Melquiades Man MD Refill Request (insulin) 07/17/2023 Travel 07/17/2023 Telephone [facility] [address] [place] [address] Melquiades Man MD Form 07/12/2023 Telephone [facility] [address] [place] [address] Melquiades Man MD from Last 3 Months Immunizations Name Administration Dates Next Due COVID-19 vaccine (Moderna 100mcg/0.5mL) PF, MDV 03/09/2021 COVID-19 vaccine (Moderna 50 mcg/0.5mL) 12YO+ BIVALENT PF, MDV 03/29/2022 COVID-19 vaccine (Pfizer-Bio NTech 30mcg/0.3mL) PF, MDV 03/09/2021,07/24/2020,07/03/2020 COVID-19 vaccine Comirnaty (Vulevú-BioNTBeetle Beats 30mcg/0.3mL) 12YO+ [id number] Formula PF, SDV, PFS 03/05/2023 Influenza Virus, [...] Brother kidney problems Heart Disease Father 1st NE at 65 d 77 yo CHF Diabetes Mother Heart Disease Mother d 64 yo NE Genetic Other There is a posi tive [...] Pressure 94/62 07/27/2023 11:51 AM CDT Pulse 73 10/04/2023 9:26 AM CDT Temperature 36.4 ??C (97.5 ??F) 07/17/2023 2 :09 PM SALES PLANNING COORDINATOR Respiratory Rate 24 05/03/2023 7:04 AM SALES PLANNING COORDINATOR Oxygen Saturation 99% 10/04/2023 9:2 6 AM CDT Inhaled Oxygen Concentration - - Weight 71.7 kg (158 lb) 10/04/2023 9:26 AM CDT patient reported Height 175.3 cm (5' 9.02) 07/27/2023 1 1:51 AM CDT Body Mass Index 23.32 07/27/2023 11:51 AM CDT Plan of Treatment Upcoming Encounters Date Type Department Care Team (Late st Contact Info) Description 10/11/2023 1:00 PM CDT Appointment [facility] [address] [place] [address] Zoila Grace, PT [address] [place] [address] 10/15/2023 1:00 PM CDT Appointment [facility] [address] [place] [address] Zoila Grace, PT [address] [address] 10/18/2023 1:45 PM CDT Appointment [facility] [address] [place] [address] Farheen Puentes, PT [address] [place] [address] 10/22/2023 1:30 PM CDT Appointment [facility] [address] [place] [address] Jasmin Hernández, PT [address] [place] [address] 10/25/2023 1:15 PM CDT Appointment [facility] [address] [place] [address] Jasmin Hernández, PT [address], [place] [address] 10/29/2023 12:30 PM CDT Appointment [facility] [address] [place] [address] Jasmin Hernández, PT [address], [place] [address] 10/30/2023 10:00 AM CDT Patient Outreach [address] [address] Priyanka Hummel, RN [address] [place] [address] 11/01/2023 1:00 PM CDT Appointment [facility] [address], [place] [address] Jasmin Hernández, PT [address] [place] [address] 11/05/2023 1:00 PM CDT Appointment [facility] [address] [place] [address] Jasmin Hernández, PT [address] [place] [address] Health Maintenance Due Date Last Done Comments [...] Procedure Name Priority Date/Time Associated Diagnosis Comments HEMOGLOBIN A1C Routine 10/04/2023 9:44 AM CDT 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 (<=6.9%) ? Indicates good control ? (7.0% to 7.9%) ? Indicates fair control ? (>=8.0%) ? Indicates poor control ?? NOTE: ??These thresholds are guidelines and ?individual targets may vary. Falsely low levels may be seen with: Recent Transfusion, Recent Significant Blood Loss, Hemolytic Diseases, or Falsely elevated levels may be seen with: Untreated Anemias, Splenectomy ? Rachel Sauceda DO CHEMISTRY [facility] [address] [place] [address], * SCAN-EYE EXAM (08/01/2023 12:00 AM CDT) Scanner OTHER * (ABNORMAL) PRO-BNP (07/27/2023 10:49 AM CDT) PRO-BNP 7,600(H) <450 pg/mL 07/27/2023 11:09 PM CDT [facility] Blood BLOOD SPECIMEN / Unknown Butterfly / Unknown 07/27/2023 10:49 AM CDT 07/27/2023 10:50 AM CDT Narrative [facility] - 07/27/2023 11:09 PM CDT [...] failure. ? Melquiades Man MD SEND OUTS [facility] [address] [place] [address], * (ABNORMAL) BASIC METABOLIC PANEL (07/27/2023 10:49 AM CDT) SODIUM 137 136 - 145 mmol/L 07/27/2023 11:08 PM CDT [facility] POTASSIUM 4.4 3.5 - 5.1 mmol/L 07/27/2023 11:08 PM T [facility] CHLORIDE 94(L) 98 - 107 mmol/L 07/27/2023 11:08 PM CDT [facility] CO2,TOTAL 26 22 - 29 mmol/L 07/27/2023 11:08 PM T [facility] ANION GAP 17 5 - 18 07/27/2023 11:08 PM T [facility] GLUCOSE 317(H) 70 - 99 mg/dL 07/27/2023 11:08 PM T [facility] CALCIUM 10.1 8.8 - 10.2 mg/dL 07/27/2023 11:08 PM T [facility] BUN 52(H) 8 - 23 mg/dL 07/27/2023 11:08 PM T [facility] CREATININE 1.74(H) 0.70 - 1.20 mg/dL 07/27/2023 11:08 PM T [facility] BUN/CREAT RATIO 30(H) 10 - 20 11:08 PM T [facility] eGFR 39(L) >90 mL/min/1.7 3m2 07/27/2023 11:08 PM T [facility] Comment:As of 2021, eG FR [...] 10:50 AM CDT Melquiades Man MD CHEMISTRY [facility] [address] [place] [address], from Last 3 Months Additional Health Concerns [...] 12 months since positive culture): resides in acute/terminal supervisor care, receiving hemodialysis, has chronic open wounds/skin damage, has long-term percutaneous indwelling medical devices Exclusions for nares collection (if <12 months since positive culture) include all of the previous exclusions plus patients on antibiotics 7 days prior to collection 03/08/2023 05/31/2023 MDRO-GNB 04/26/2023 04/26/2023 Advance Directives Documents on File Type Date Recorded Patient Esthetician Makeup Artist Expl anation POL 03/26/2023 * Full Code [...] Code Status Discussion: Reviewed Preferences Care Teams Metal Roaster Relationship Specialty Start Date End Date Votel, Melquiades Gray MD [address] [place] [address] PCP - General 11/20/05 Nurses, Advanced Heart Failure [address] [address] Advanced Heart Failure/Transplant Card 01/24/23 Shade Manuel MD [address] [place] [address] [place] [address] Cardiovascular Disease 01/24/23
--- OUTSIDE RECORDS SUMMARY | 2023-10-10 09:11 | XMS_ITS | Clinical Summary ---
Author Organization [facility] Address [address] [place] [address] Care Team Providers Care Plastic Eye Technician Name Role Phone Elsewhere, Pcp Primary Care Provider Unavailabl e Source Comments Patient records contain information from all sites at [facility]. For routine questions regarding patient records, call [phone] during business hours, M-F 8:00 AM - 5:00 PM Central Time. Record requests for emergency care only can be directed to [phone] at any time.[facility] Allergies No known active allergies Medications Medication [...] Heel: Area continues to improve. Wound measures [id number]. 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 Woods was admitted to [facility] April 10 following BK right [...] was 0.92 in April 2023. vice president education confirmed levothyroxine is given every morning (6am) without other medications. Therefore, we will increase levothyroxine 50mcg to 75mcg and rechecked TSH in 6 weeks. Nursing instructed to continue monitoring for symptoms of hypothyroidism and contact [place] provider if any concerns. 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 [...] and palpitation. Atherosclerotic Heart Diseas e Of [place] Coronary Artery Without Angina Pectoris 01/15/2023 Overview: [...] Anticoagulation: Apixaban Last Assessment & Plan: terminal gauger anticoagulation on apixaban Half-Way Use Of Insulin Active 12/09/2022 Overview: On [...] control but to prevent hypoglycemia. Atherosclerosis [place] Ar teries Of Other Extremities With Ulceration [...] for COVID-19 12/27/2022. Treated with remdesivir at [facility]. Anemia 01/16/2023 04/12/2023 Overview: Lab Results Component [...] 05/24/2023 Overview: Onychomycosis of toenails; Original Code: [id number] Original Codesystem: SNOMED CT Classification: Medical Confirmation [...] Comments Blood Pressure 107/66 06/18/2023 1:10 PM SALESPERSON FURS Pulse 78 06/18/2023 1:10 PM SALESPERSON FURS Temperature 36.6 ??C (97.8 ??F) 06/18/2023 1:10 PM CS T Respiratory Rate 16 06/18/2023 1:10 PM SALESPERSON FURS Oxygen Saturation 95% 06/18/2023 1:10 PM SALESPERSON FURS Inhaled Oxygen Concentration - - Weight 75.8 kg (167 lb) 06/18/2023 1:10 PM SALESPERSON FURS Height 175.3 cm (5' 9) 04/12/2023 3:21 PM SALESPERSON FURS Body Mass Index 24.66 04/12/2023 3:21 PM SALESPERSON FURS Plan of Treatment Health Maintenance Due Date [...] Advance Directives For more information, please contact: [phone] * DNR/DNI (Latest Code Status on File) Date Activated Date Inactivated Comments 05/24/2023 6:14 PM * DNR/DNI Date Activated Date Inactivated Comments 04/12/2023 4:11 PM 04/16/2023 7:15 AM Care Teams Plastic Eye Technician Relationship Specialty Start Date End Date Elsewhere, Pcp PCP - General Internal Medicine 08/28/23
--- OUTSIDE RECORDS SUMMARY | 2023-10-10 09:11 | XMS_ITS | Referral Summary ---
Author Organization [facility] Address [address] [place] [address] Care Team Providers Care Pest Control Worker Helper Name Role Phone Elsewhere, Pcp Primary Care Provider Unavailabl e Source Comments Patient records contain information from all sites at [facility]. For routine questions regarding patient records, call [phone] during business hours, M-F 8:00 AM - 5:00 PM Central Time. Record requests for emergency care only can be directed to [phone] at any time.[facility] Allergies No known active allergies Medications Medication [...] Heel: Area continues to improve. Wound measures [id number]. 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 Woods was admitted to [facility] April 10 following BK right [...] Last T4 was 0.92 in April 2023. family medicine resident confirmed levothyroxine is given every morning (6am) without other medications. Therefore, we will increase levothyroxine 50mcg to 75mcg and rechecked TSH in 6 weeks. Nursing instructed to continue monitoring for symptoms of hypothyroidism and contact [facility] provider if any concerns. Amputation Toe Status [...] and palpitation. 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 Treated with remdesivir at [facility]. Anemia 01/16/2023 04/12/2023 Overview: Lab [...] 05/24/2023 Overview: Onychomycosis of toenails; Original Code: [id number] Original Codesystem: SNOMED CT Classification: Medical Confirmation [...] Comments Blood Pressure 107/66 06/18/2023 1:10 PM PYTHON PROGRAMMER Pulse 78 06/18/2023 1:10 PM PYTHON PROGRAMMER Temperature 36.6 ??C (97.8 ??F) 06/18/2023 1:10 PM CS T Respiratory Rate 16 06/18/2023 1:10 PM PYTHON PROGRAMMER Oxygen Saturation 95% 06/18/2023 1:10 PM PYTHON PROGRAMMER Inhaled Oxygen Concentration - - Weight 75.8 kg (167 lb) 06/18/2023 1:10 PM PYTHON PROGRAMMER Height 175.3 cm (5' 9) 04/12/2023 3:21 PM PYTHON PROGRAMMER Body Mass Index 24.66 04/12/2023 3:21 PM PYTHON PROGRAMMER Plan of Treatment Not on file Advance Directives For more information, please contact: [phone] * DNR/DNI (Latest Code Status on File) Date Activated Date Inactivated Comments 05/24/2023 6:14 PM * DNR/DNI Date Activated Date Inactivated Comments 04/12/2023 4:11 PM 04/16/2023 7:15 AM Care Teams Pest Control Worker Helper Relationship Specialty Start Date End Date Elsewhere, Pcp PCP - General Internal Medicine 08/28/23
== END 2023-10-10 09:10 | disposition home or self-care (01) ==
LOC: WOUND 09:09
PROVIDERS: PCP Family Medicine; Visit Provider Surgery
DX: E11.621 Type 2 diabetes mellitus with foot ulcer (principal); L97.422 Non-pressure chronic ulcer of left heel and midfoot with fat layer exposed; Z79.4 Long term (current) use of insulin
CPT/HCPCS: 97597

== ENCOUNTER 2023-10-17 09:02 | Outpatient (CLI) | payer MEDICARE, BC, SELFPAY ==
--- OUTSIDE RECORDS SUMMARY | 2023-10-17 09:04 | XMS_ITS | Continuity of Care Document ---
Author Name [facility] Organization [facility] Care Team Providers Care Senior Pharmacy Technician Name Role Phone [facility] Unavailable Unavailable Problems Combined list of problems from [facility] facilities. It does not include entries that were removed or entered in error. Problem Status Onset Date Problem Type Date of Resolution Comments Source Exposure to potentially hazardous substance ([facility] [id number]) Active 07/20/19 24 Condition Jul 20, 2023 Entered By: MECHELLE DEMPSEY Comment: [facility] Documentation Initiative [facility] CAD - Coronary Artery Disease ([facility] [id number]) Active Condition [place] ([facility]) CHF - Congestive Heart Failure ([facility] [id number]) Active Condition [facility]) Diabetes Mellitus Type 2 ([facility] [id number]) Active Condition [facility]) HTN - Hypertension ([facility] [id number]) Active Condition [place] ([facility]) Hyperlipidemia ([facility] [id number]) Active Condition [facility]) Long-term current use of insulin Active Condition [facility]) Peripheral neuropathy due to type 2 diabetes mellitus Active Condition [place] ([facility]) Diagnosis: ICD-10-CM H90.3 Sensorineural hearing loss, bilateral Active Diagnosis [facility] Diagnosis: ICD-10-CM I50.9 Heart failure, unspecified Active Diagnosis [facility]) Diagnosis: ICD-10-CM E11.9 Type 2 diabetes mellitus without complications Active Diagnosis [facility] Diagnosis: ICD-10-CM R26.89 Other abnormalities of gait and mobility Active Diagnosis [facility] ([facility]) Diagnosis: ICD-10-CM Z00.00 Encntr for general adult medical exam w/o abnormal findings Active Diagnosis [facility] ([facility]) Medications Combined list of outpatient medications from [facility] of 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 Status Comments Source INFLUENZA, HIGH-DOSE, QUADRIVALENT 1 2021 197 complet ed [facility] COVID-19 (MODERNA), MRNA, LNP-S, BIVALENT, PF, 50 MCG/0.5 ML OR 25MCG/0.25 ML DOSE 1 2021 229 complet ed [facility] COVID-19 (PFIZER), MRNA, LNP-S, PF, 30 MCG/0.3 ML DOSE 3 2020 208 complet ed [facility] INFLUENZA, UNSPECIFIED FORMULATION 2020 88 complet ed [facility] TDAP 2020 115 complet ed [employer], [id number] , exp-2022 and given VIS dated 12/17/2020 [facility] ([facility]) ZOSTER RECOMBINANT 2 2020 187 complet ed [facility]) ZOSTER RECOMBINANT 1 2020 187 complet ed [facility]) COVID-19 (PFIZER), MRNA, LNP-S, PF, 30 MCG/0.3 ML DOSE 2 2020 208 complet ed [facility] COVID-19 (PFIZER), MRNA, LNP-S, PF, 30 MCG/0.3 ML DOSE 1 2020 208 complet ed [facility] INFLUENZA, UNSPECIFIED FORMULATION 2019 88 complet ed [facility] PNEUMOCOCCAL CONJUGATE PCV 13 2014 133 complet ed Per [facility] PNEUMOCOCCAL POLYSACCHARID E PPV23 2010 33 complet ed [facility] PNEUMOCOCCAL POLYSACCHARID E PPV23 2005 33 complet ed [facility] Results Combined list of recent [...] Jan 23, 2023 02:00 PM Reporting Lab: [facility] [address] Performing Lab: [facility] [address] [place] ([facility]) BASIC METABOLIC PANEL+MG UREA NITROGEN [MASS/VOLUM E] IN SERUM OR PLASMA 35 8 - 26 01/23 H Specimen Type: PLASMA No comment entered. Ordering Provider: AILIN CHESTER Report Released Date/Time: Jan 23, 2023 02:00 PM Reporting Lab: [facility] [address] Performing Lab: [facility] [address] [place] ([facility]) BASIC METABOLIC PANEL+MG GLUCOSE [MASS/VOLUM E] IN SERUM OR PLASMA 239 70 - 100 01/23 H Specimen Type: PLASMA No comment entered. Ordering Provider: AILIN CHESTER Report Released Date/Time: Jan 23, 2023 02:00 PM Reporting Lab: [facility] [address] Performing Lab: [facility] [address] [place] ([facility]) BASIC METABOLIC PANEL+MG SODIUM [MOLES/VOLU ME] IN SERUM OR PLASMA 140 136 - 145 01/23 Specimen Type: PLASMA No comment entered. Ordering Provider: AILIN CHESTER Report Released Date/Time: Jan 23, 2023 02:00 PM Reporting Lab: [address] Performing Lab: [address] [place] [address] ([facility]) BASIC METABOLIC PANEL+MG POTASSIUM [MOLES/VOLU ME] IN SERUM OR PLASMA 5.1 3.5 - 5.1 01/23 Specimen Type: PLASMA No comment entered. Ordering Provider: AILIN CHESTER Report Released Date/Time: Jan 23, 2023 02:00 PM Reporting Lab: [address] Performing Lab: [address] ([facility]) BASIC METABOLIC PANEL+MG CHLORIDE [MOLES/VOLU ME] IN SERUM OR PLASMA 109 98 - 107 01/23 H Specimen Type: PLASMA No comment entered. Ordering Provider: AILIN CHESTER Report Released Date/Time: Jan 23, 2023 02:00 PM Reporting Lab: [facility] [address] Performing Lab: [facility] [address] [place] ([facility]) BASIC METABOLIC PANEL+MG CARBON DIOXIDE, TOTAL [MOLES/VOLU ME] IN SERUM OR PLASMA 21 22 - 29 01/23 L Specimen Type: PLASMA No comment entered. Ordering Provider: AILIN CHESTER Report Released Date/Time: Jan 23, 2023 02:00 PM Reporting Lab: [facility] [address] Performing Lab: [facility] [address] [place] ([facility]) BASIC METABOLIC PANEL+MG CALCIUM [MASS/VOLUM E] IN SERUM OR PLASMA 9.4 8.4 - 10.2 01/23 Specimen Type: PLASMA No comment entered. Ordering Provider: AILIN CHESTER Report Released Date/Time: Jan 23, 2023 02:00 PM Reporting Lab: [facility] [address] Performing Lab: [facility] [address] [place] ([facility]) BASIC METABOLIC PANEL+MG MAGNESIUM [MASS/VOLUM E] IN SERUM OR PLASMA 1.7 1.6 - 2.6 01/23 Specimen Type: PLASMA No comment entered. Ordering Provider: AILIN CHESTER Report Released Date/Time: Jan 23, 2023 02:00 PM Reporting Lab: [facility] [address] Performing Lab: [facility] [address] [place] ([facility]) BASIC METABOLIC PANEL+MG ANION GAP IN SERUM OR PLASMA 10 5 - 15 01/23 Specimen Type: PLASMA No comment entered. Ordering Provider: AILIN CHESTER Report Released Date/Time: Jan 23, 2023 02:00 PM Reporting Lab: [facility] [address] Performing Lab: [facility] [address] [place] ([facility]) BASIC METABOLIC PANEL+MG GLOMERULAR FILTRATION RATE/1.73 SQ M.PREDICTED [VOLUME RATE/AREA] IN SERUM, PLASMA OR BLOOD BY CREATININE- BASED FORMULA (CKD-EPI 2020) 61 60 01/23 Specimen Type: PLASMA No comment entered. Ordering Provider: AILIN CHESTER Report Released Date/Time: Jan 23, 2023 02:00 PM Reporting Lab: [facility] [address] Performing Lab: [facility] [address] [place] ([facility]) BNP NATRIURETIC PEPTIDE B [MASS/VOLUM E] IN SERUM OR PLASMA 1549 <99 - 99 01/23 H Specimen Type: PLASMA No comment entered. Ordering Provider: AILIN CHESTER Report Released Date/Time: Jan 23, 2023 02:00 PM Reporting Lab: [facility] [address] Performing Lab: [facility] [address] [place] ([facility]) MICROALBU MIN/CREAT ININE RATIO URINE CREATININE [MASS/VOLUM E] IN URINE 132.8 58.0 - 161.0 11/23 Specimen Type: URINE No comment entered. Ordering Provider: AILIN CHESTER Report Released Date/Time: Nov 23, 2022 11:58 AM Reporting Lab: [facility] [address] Performing Lab: [facility] [address] [place] ([facility]) MICROALBU MIN/CREAT ININE RATIO URINE MICROALBUMI N/CREATININ E [MASS RATIO] IN URINE 28.0 11/23 Specimen Type: URINE No comment entered. Ordering Provider: AILIN CHESTER Report Released Date/Time: Nov 23, 2022 11:58 AM Reporting Lab: [facility] [address] Performing Lab: [place] [address] [place] ([facility]) MICROALBU MIN/CREAT ININE RATIO URINE MICROALBUMI N [MASS/VOLUM E] IN URINE 37.2 11/23 H Specimen Type: URINE No comment entered. Ordering Provider: AILIN CHESTER Report Released Date/Time: Nov 23, 2022 11:58 AM Reporting Lab: [facility] [address] Performing Lab: [facility] [address] [place] ([facility]) LIPID PANEL,NON -FASTING CHOLESTEROL [MASS/VOLUM E] IN SERUM OR PLASMA 130 11/23 Specimen Type: PLASMA No comment entered. Ordering Provider: AILIN CHESTER Report Released Date/Time: Nov 23, 2022 11:58 AM Reporting Lab: [facility] [address] Performing Lab: [facility] [address] [place] ([facility]) LIPID PANEL,NON -FASTING CHOLESTEROL IN HDL [MASS/VOLUM E] IN SERUM OR PLASMA 39 11/23 L Specimen Type: PLASMA No comment entered. Ordering Provider: AILIN CHESTER Report Released Date/Time: Nov 23, 2022 11:58 AM Reporting Lab: [facility] [address] Performing Lab: [facility] [address] [place] ([facility]) LIPID PANEL,NON -FASTING CHOLESTEROL IN LDL [MASS/VOLUM E] IN SERUM OR PLASMA BY CALCULATION 73 11/23 Specimen Type: PLASMA No comment entered. Ordering Provider: AILIN CHESTER Report Released Date/Time: Nov 23, 2022 11:58 AM Reporting Lab: [facility] [address] Performing Lab: [facility] [address] [place] ([facility]) LIPID PANEL,NON -FASTING CHOLESTEROL IN VLDL [MASS/VOLUM E] IN SERUM OR PLASMA BY CALCULATION 18 11/23 Specimen Type: PLASMA No comment entered. Ordering Provider: AILIN CHESTER Report Released Date/Time: Nov 23, 2022 11:58 AM Reporting Lab: [facility] [address] Performing Lab: [address] [place] [address] ([facility]) LIPID PANEL,NON -FASTING CHOLESTEROL NON HDL [MASS/VOLUM E] IN SERUM OR PLASMA 91 11/23 Specimen Type: PLASMA No comment entered. Ordering Provider: AILIN CHESTER Report Released Date/Time: Nov 23, 2022 11:58 AM Reporting Lab: [address] Performing Lab: [address] ([facility]) LIPID PANEL,NON -FASTING TRIGLYCERID E [MASS/VOLUM E] IN SERUM OR PLASMA 92 11/23 Specimen Type: PLASMA No comment entered. Ordering Provider: AILIN CHESTER Report Released Date/Time: Nov 23, 2022 11:58 AM Reporting Lab: [facility] [address] Performing Lab: [facility] [address] [place] [address] ([facility]) CBC LEUKOCYTES [#/VOLUME] IN BLOOD BY AUTOMATED COUNT 10.80 4.0 - 11.0 11/23 Specimen Type: BLOOD No comment entered. Ordering Provider: AILIN CHESTER Report Released Date/Time: Nov 23, 2022 11:58 AM Reporting Lab: [facility] [address] Performing Lab: [address] [place] ([facility]) CBC ERYTHROCYTE S [#/VOLUME] IN BLOOD BY AUTOMATED COUNT 3.87 4.6 - 6.2 11/23 L Specimen Type: BLOOD No comment entered. Ordering Provider: AILIN CHESTER Report Released Date/Time: Nov 23, 2022 11:58 AM Reporting Lab: [facility] [address] Performing Lab: [place] [address] [place] ([facility]) CBC HEMOGLOBIN [MASS/VOLUM E] IN BLOOD 12.1 13.5 - 17.9 11/23 L Specimen Type: BLOOD No comment entered. Ordering Provider: AILIN CHESTER Report Released Date/Time: Nov 23, 2022 11:58 AM Reporting Lab: [facility] [address] Performing Lab: [facility] [address] [place] ([facility]) CBC HEMATOCRIT [VOLUME FRACTION] OF BLOOD BY AUTOMATED COUNT 37.5 41 - 54 11/23 L Specimen Type: BLOOD No comment entered. Ordering Provider: AILIN CHESTER Report Released Date/Time: Nov 23, 2022 11:58 AM Reporting Lab: [facility] [address] Performing Lab: [address] [place] [address] ([facility]) CBC MCV [ENTITIC VOLUME] BY AUTOMATED COUNT 96.9 80 - 100 11/23 Specimen Type: BLOOD No comment entered. Ordering Provider: AILIN CHESTER Report Released Date/Time: Nov 23, 2022 11:58 AM Reporting Lab: [facility] [address] Performing Lab: [facility] [address] [place] ([facility]) CBC MCH [ENTITIC MASS] BY AUTOMATED COUNT 31.3 27 - 33 11/23 Specimen Type: BLOOD No comment entered. Ordering Provider: AILIN CHESTER Report Released Date/Time: Nov 23, 2022 11:58 AM Reporting Lab: [facility] [address] Performing Lab: [facility] [address] [place] ([facility]) CBC MCHC [MASS/VOLUM E] BY AUTOMATED COUNT 32.3 32.0 - 37.5 11/23 Specimen Type: BLOOD No comment entered. Ordering Provider: AILIN CHESTER Report Released Date/Time: Nov 23, 2022 11:58 AM Reporting Lab: [facility] [address] Performing Lab: [facility] [address] [place] ([facility]) CBC PLATELETS [#/VOLUME] IN BLOOD BY AUTOMATED COUNT 293 150 - 400 11/23 Specimen Type: BLOOD No comment entered. Ordering Provider: AILIN CHESTER Report Released Date/Time: Nov 23, 2022 11:58 AM Reporting Lab: [facility] [address] Performing Lab: [address] ([facility]) CBC PLATELET MEAN VOLUME [ENTITIC VOLUME] IN BLOOD BY AUTOMATED COUNT 10.3 7.4 - 10.4 11/23 Specimen Type: BLOOD No comment entered. Ordering Provider: AILIN CHESTER Report Released Date/Time: Nov 23, 2022 11:58 AM Reporting Lab: [facility] [address] Performing Lab: [place] [phone] [place] ([facility]) CBC ERYTHROCYTE DISTRIBUTIO N WIDTH [RATIO] BY AUTOMATED COUNT 13.2 11.5 - 14.5 11/23 Specimen Type: BLOOD No comment entered. Ordering Provider: AILIN CHESTER Report Released Date/Time: Nov 23, 2022 11:58 AM Reporting Lab: [facility] [address] Performing Lab: [address] [place] ([facility]) TSH W/REFLEX TO FREE T4 THYROTROPIN [UNITS/VOLU ME] IN SERUM OR PLASMA 4.59 0.35 - 4.94 11/23 Specimen Type: PLASMA No comment entered. Ordering Provider: AILIN CHESTER Report Released Date/Time: Nov 23, 2022 11:58 AM Reporting Lab: [facility] [address] Performing Lab: [facility] [address] [place] ([facility]) COMPREHEN SIVE METABOLIC PANEL+MG CREATININE [MASS/VOLUM E] IN SERUM OR PLASMA 1.2 0.7 - 1.2 11/23 Specimen Type: PLASMA No comment entered. Ordering Provider: AILIN CHESTER Report Released Date/Time: Nov 23, 2022 11:58 AM Reporting Lab: [facility] [address] Performing Lab: [address] ([facility]) COMPREHEN SIVE METABOLIC PANEL+MG UREA NITROGEN [MASS/VOLUM E] IN SERUM OR PLASMA 34 8 - 26 11/23 H Specimen Type: PLASMA No comment entered. Ordering Provider: AILIN CHESTER Report Released Date/Time: Nov 23, 2022 11:58 AM Reporting Lab: [facility] [address] Performing Lab: [facility] [address] [place] ([facility]) COMPREHEN SIVE METABOLIC PANEL+MG GLUCOSE [MASS/VOLUM E] IN SERUM OR PLASMA 54 70 - 100 11/23 L Specimen Type: PLASMA No comment entered. Ordering Provider: AILIN CHESTER Report Released Date/Time: Nov 23, 2022 11:58 AM Reporting Lab: [facility] [address] Performing Lab: [facility] [address] [place] ([facility]) COMPREHEN SIVE METABOLIC PANEL+MG SODIUM [MOLES/VOLU ME] IN SERUM OR PLASMA 143 136 - 145 11/23 Specimen Type: PLASMA No comment entered. Ordering Provider: AILIN CHESTER Report Released Date/Time: Nov 23, 2022 11:58 AM Reporting Lab: [facility] [address] Performing Lab: [facility] [address] [place] ([facility]) COMPREHEN SIVE METABOLIC PANEL+MG POTASSIUM [MOLES/VOLU ME] IN SERUM OR PLASMA 4.4 3.5 - 5.1 11/23 Specimen Type: PLASMA No comment entered. Ordering Provider: AILIN CHESTER Report Released Date/Time: Nov 23, 2022 11:58 AM Reporting Lab: [facility] [address] Performing Lab: [facility] [address] [place] ([facility]) COMPREHEN SIVE METABOLIC PANEL+MG CHLORIDE [MOLES/VOLU ME] IN SERUM OR PLASMA 107 98 - 107 11/23 Specimen Type: PLASMA No comment entered. Ordering Provider: AILIN CHESTER Report Released Date/Time: Nov 23, 2022 11:58 AM Reporting Lab: [facility] [address] Performing Lab: [facility] [address] [place] ([facility]) COMPREHEN SIVE METABOLIC PANEL+MG CARBON DIOXIDE, TOTAL [MOLES/VOLU ME] IN SERUM OR PLASMA 23 22 - 29 11/23 Specimen Type: PLASMA No comment entered. Ordering Provider: AILIN CHESTER Report Released Date/Time: Nov 23, 2022 11:58 AM Reporting Lab: [facility] [address] Performing Lab: [facility] [address] [place] ([facility]) COMPREHEN SIVE METABOLIC PANEL+MG CALCIUM [MASS/VOLUM E] IN SERUM OR PLASMA 9.7 8.4 - 10.2 11/23 Specimen Type: PLASMA No comment entered. Ordering Provider: AILIN CHESTER Report Released Date/Time: Nov 23, 2022 11:58 AM Reporting Lab: [address] Performing Lab: [address] [place] ([facility]) COMPREHEN SIVE METABOLIC PANEL+MG PROTEIN [MASS/VOLUM E] IN SERUM OR PLASMA 7.2 6.0 - 8.3 11/23 Specimen Type: PLASMA No comment entered. Ordering Provider: AILIN CHESTER Report Released Date/Time: Nov 23, 2022 11:58 AM Reporting Lab: [facility] [address] Performing Lab: [place] [address] [place] ([facility]) COMPREHEN SIVE METABOLIC PANEL+MG ALBUMIN [MASS/VOLUM E] IN SERUM OR PLASMA 4.1 3.5 - 5.2 11/23 Specimen Type: PLASMA No comment entered. Ordering Provider: AILIN CHESTER Report Released Date/Time: Nov 23, 2022 11:58 AM Reporting Lab: [facility] [address] Performing Lab: [facility] [address] [place] ([facility]) COMPREHEN SIVE METABOLIC PANEL+MG BILIRUBIN.T OTAL [MASS/VOLUM E] IN SERUM OR PLASMA 0.5 0.2 - 1.2 11/23 Specimen Type: PLASMA No comment entered. Ordering Provider: AILIN CHESTER Report Released Date/Time: Nov 23, 2022 11:58 AM Reporting Lab: [facility] [address] Performing Lab: [facility] [address] [place] ([facility]) COMPREHEN SIVE METABOLIC PANEL+MG MAGNESIUM [MASS/VOLUM E] IN SERUM OR PLASMA 1.4 1.6 - 2.6 11/23 L Specimen Type: PLASMA No comment entered. Ordering Provider: AILIN CHESTER Report Released Date/Time: Nov 23, 2022 11:58 AM Reporting Lab: [address] Performing Lab: [address] ([facility]) COMPREHEN SIVE METABOLIC PANEL+MG ANION GAP IN SERUM OR PLASMA 13 5 - 15 11/23 Specimen Type: PLASMA No comment entered. Ordering Provider: AILIN CHESTER Report Released Date/Time: Nov 23, 2022 11:58 AM Reporting Lab: [place] [phone] Performing Lab: [address] ([facility]) COMPREHEN SIVE METABOLIC PANEL+MG ALKALINE PHOSPHATASE [ENZYMATIC ACTIVITY/VO LUME] IN SERUM OR PLASMA 87 40 - 150 11/23 Specimen Type: PLASMA No comment entered. Ordering Provider: AILIN CHESTER Report Released Date/Time: Nov 23, 2022 11:58 AM Reporting Lab: [facility] [address] Performing Lab: [facility] [address] [place] ([facility]) COMPREHEN SIVE METABOLIC PANEL+MG ALANINE AMINOTRANSF ERASE [ENZYMATIC ACTIVITY/VO LUME] IN SERUM OR PLASMA 28 11/23 Specimen Type: PLASMA No comment entered. Ordering Provider: AILIN CHESTER Report Released Date/Time: Nov 23, 2022 11:58 AM Reporting Lab: [facility] [address] Performing Lab: [facility] [address] [place] [address] ([facility]) COMPREHEN SIVE METABOLIC PANEL+MG ASPARTATE AMINOTRANSF ERASE [ENZYMATIC ACTIVITY/VO LUME] IN SERUM OR PLASMA 33 11/23 Specimen Type: PLASMA No comment entered. Ordering Provider: AILIN CHESTER Report Released Date/Time: Nov 23, 2022 11:58 AM Reporting Lab: [facility] [address] Performing Lab: [facility] [address] [place] ([facility]) COMPREHEN SIVE METABOLIC PANEL+MG GLOMERULAR FILTRATION RATE/1.73 SQ M.PREDICTED [VOLUME RATE/AREA] IN SERUM, PLASMA OR BLOOD BY CREATININE- BASED FORMULA (CKD-EPI 2020) 61 11/23 Specimen Type: PLASMA No comment entered. Ordering Provider: AILIN CHESTER Report Released Date/Time: Nov 23, 2022 11:58 AM Reporting Lab: [facility] [address] Performing Lab: [facility] [address] [place] ([facility]) HEMOGLOBI N A1C HEMOGLOBIN A1C/HEMOGLO BIN.TOTAL [...] Nov 23, 2022 11:58 AM Reporting Lab: [facility] [address] Performing Lab: [facility] [address] [place] ([facility]) Vital Signs Combined list of inpatient [...] [facility] Outpatient Encounter [id number] 03/29 QASIM SCHULZ [facility] [place] [facility] Outpatient Encounter [id number] 04/05 QASIM SCHULZ [facility] [place] [facility] Outpatient Encounter [id number] 07/31 [place] [facility] [place] [facility] Outpatient Encounter [id number] 08/21 [place] [facility] [place] [facility] Outpatient Encounter [id number] 09/20 [place] [facility] Outpatient Encounter [id number] [id number] 11/11 [facility] [place] [facility] Outpatient Encounter [id number] ZARI POWER 11/16 [place] [facility] [place] [facility] Outpatient Encounter [id number] 11/21 [place] [facility] O/P EST MOD 30-39 MIN [id number] Diagnos is: ICD-10- CM Z00.00 Encntr for general adult medical exam w/o abnorma l finding s
CANDELARIO CHESTER DA K 11/23 [place] ([facility]) [place] ([facility]) GAIT TRAINING THERAPY [id number] Diagnos is: ICD-10- CM R26.89 Other abnorma lities of gait and mobilit y
OMAYRA JAMESON NTER V 11/23 [place] ([facility]) [place] [facility] Outpatient Encounter [id number] SA JAMARI JAMESON R 12/11 [place] [facility] [place] [facility] Outpatient Encounter [id number] 12/25 [place] [facility] [place] [facility] Outpatient Encounter [id number] SA JAMARI JAMESON R 12/28 [place] [facility] [place] [facility] Outpatient Encounter [id number] 01/05 [place] [facility] [place] [facility] Outpatient Encounter [id number] 01/[address] [place] [address] [place] [facility] Outpatient Encounter [id number] 01/16 [place] [facility] O/P EST HI 40-54 MIN [id number] Diagnos is: ICD-10- CM I50.9 Heart failure , unspeci fied
CANDELARIO CHESTER 01/23 [facility] ([facility] [place] [facility] Outpatient Encounter [id number] Marcus POTTS I 01/24 [place] [facility] [place] [facility] Outpatient Encounter [id number] Danica TORRE 02/[address] [place] [address] [facility] [place] [facility] Outpatient Encounter [id number] 02/09 [place] [facility] [place] [facility] Outpatient Encounter [id number] Danica TORRE 02/[address] [place] [address] [facility] [place] [facility] Outpatient Encounter [id number] 02/[address] [place] [address] [facility] [place] [facility] Outpatient Encounter [id number] 02/15 [place] [facility] [place] [facility] Outpatient Encounter [id number] 02/19 [place] [facility] [place] [facility] Outpatient Encounter [id number] 02/20 [place] [facility] [place] [facility] Outpatient Encounter [id number] 02/20 [place] [facility] [place] [facility] Outpatient Encounter [id number] 02/20 [place] [facility] [place] [facility] Outpatient Encounter [id number] 02/20 [place] [facility] [place] [facility] Outpatient Encounter [id number] 02/[address] [place] [facility] [place] [facility] QNHP OL DIG ASSMT&MGMT 5-10 [id number] Diagnos is: ICD-10- CM E11.9 Type 2 diabete s mellitu s without complic ations< br/> HARDER,SIVA LY 02/22 [place] [facility] PRO PHONE CALL 11-20 MIN [id number] [phone] Diagnos is: ICD-10- CM I50.9 Heart failure , unspeci fied
HENRICH,BR ANDON M 02/23 [facility] ([facility] [place] [facility] Outpatient Encounter [id number] 02/26 [place] [facility] [place] [facility] Outpatient Encounter [id number] 03/01 [place] [facility] [place] [facility] Outpatient Encounter [id number] SA TRINO RA R 03/09 [place] [facility] [place] [facility] Outpatient Encounter [id number] 03/[address] [place] [facility] [place] [facility] Outpatient Encounter [id number] SA TRINO RA R 04/[address] [place] [facility] [place] [facility] Outpatient Encounter [id number] SA TRINO RA R 04/16 [place] [facility] [place] [facility] Outpatient Encounter [id number] TRINO RA R 05/01 [place] [facility] [place] [facility] Outpatient Encounter [id number] 07/11 [place] [facility] [place] [facility] Outpatient Encounter [id number] [place] [facility] [place] [facility] Outpatient Encounter [id number] 07/12 [facility] [place] [facility] HC PRO PHONE CALL 5-10 MIN [id number] Diagnos is: ICD-10- CM 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
LICOERISVIVRADHA Frey [facility] HEARING AID REPAIR/MOD IFYING [id number] Diagnos is: ICD-10- CM 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
CARY CORCORAN C 08/09 [facility] HEARING AID FITTING/CH ECKING [id number] Diagnos is: ICD-10- CM 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
Sy MAKI 09/17 [facility] Social History Combined list of available smoking, tobacco, and other social history from Department of Defense and Veterans Affairs facilities. Social History Type Response Date Comment [facility] e Tobacco smoking status SDIS VA-TOBACCO FORMER USER 11/23/2022 [place] ([facility]) History of tobacco use [place]-TOBACCO QUIT 1 5 YRS OR MORE 11/23/2022 [place] ([facility]) History of tobacco use VA-TOBACCO FORMER USER 11/29/2021 [place] ([facility]) History of tobacco use VA-TOBACCO FORMER USER 10/21/2020 [place] ([facility])
--- OUTSIDE RECORDS SUMMARY | 2023-10-17 09:05 | XMS_ITS | Referral Summary ---
Author Organization [facility] Address [address] [place] [address] Care Team Providers Care Internet Specialist Name Role Phone Elsewhere, Pcp Primary Care Provider Unavailabl e Source Comments Patient records contain information from all sites at [facility]. For routine questions regarding patient records, call [phone] during business hours, M-F 8:00 AM - 5:00 PM Central Time. Record requests for emergency care only can be directed to [phone] at any time.[facility] Allergies No known active allergies Medications Medication [...] Heel: Area continues to improve. Wound measures [id number]. 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 Woods was admitted to [facility] April 10 following BK right [...] Last T4 was 0.92 in April 2023. residential driver confirmed levothyroxine is given every morning (6am) without other medications. Therefore, we will increase levothyroxine 50mcg to 75mcg and rechecked TSH in 6 weeks. Nursing instructed to continue monitoring for symptoms of hypothyroidism and contact [place] provider if any concerns. Amputation Toe Status [...] and palpitation. 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 Atherosclerosis Of [place] Ar teries Of Other Extremities With Ulceration [...] 05/24/2023 Overview: Onychomycosis of toenails; Original Code: [id number] Original Codesystem: SNOMED CT Classification: Medical Confirmation [...] Comments Blood Pressure 107/66 06/18/2023 1:10 PM FALAFEL CART COOK Pulse 78 06/18/2023 1:10 PM FALAFEL CART COOK Temperature 36.6 ??C (97.8 ??F) 06/18/2023 1:10 PM CS T Respiratory Rate 16 06/18/2023 1:10 PM FALAFEL CART COOK Oxygen Saturation 95% 06/18/2023 1:10 PM FALAFEL CART COOK Inhaled Oxygen Concentration - - Weight 75.8 kg (167 lb) 06/18/2023 1:10 PM FALAFEL CART COOK Height 175.3 cm (5' 9) 04/12/2023 3:21 PM FALAFEL CART COOK Body Mass Index 24.66 04/12/2023 3:21 PM FALAFEL CART COOK Plan of Treatment Not on file Advance Directives For more information, please contact: [phone] * DNR/DNI (Latest Code Status on File) Date Activated Date Inactivated Comments 05/24/2023 6:14 PM * DNR/DNI Date Activated Date Inactivated Comments 04/12/2023 4:11 PM 04/16/2023 7:15 AM Care Teams Internet Specialist Relationship Specialty Start Date End Date Elsewhere, Pcp PCP - General Internal Medicine 08/28/23
--- OUTSIDE RECORDS SUMMARY | 2023-10-17 09:05 | XMS_ITS ---
Author Organization [facility] Address [address] [place] [address] Care Team Providers Care Grader Green Meat Name Role Phone Unavailable Unavailable Unavailable Surgery Details Not on file Complications Check Surgery Details section. Procedure Estimated Blood Loss Check Surgery Details section. Procedure Findings Check Surgery Details section. Procedure Specimens Taken Check Surgery Details section.
--- OUTSIDE RECORDS SUMMARY | 2023-10-17 09:05 | XMS_ITS | Clinical Summary ---
Author Organization [employer] [facility] Address [place], [place] [address] Care Team Providers Care Yard Engineer Name Role Phone VotelMelquiades MD Primary Care Provider + Nurses, Advanced Heart Failure Unavailable + Shade Manuel MD Unavailable [phone] Allergies No known active allergies Medications Medication Sig Dispensed Refills Start Date End Date Status blood-glucose meterIndications :Type 2 diabetes mellitus with complication (HC) Ascensia Glucometer, Dispense meter, test strips, lancets covered by pt ins. Test 3 times daily 1 Device 1 Active Insulin [place], Disposable, (Novofine 32) 32 gauge x 1/4Indications: [...] mg sublingual tabletIndication s:Coronary artery disease involving [place] heart without angina pectoris, unspecified vessel or [...] once daily. 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 9 Each 3 4 Active transmitter [...] associated with type 2 diabetes mellitus 12/09/2022 skilled nursing current use of insulin 12/09/2022 NSTEMI (non-ST elevated myocardial infarction) 0 12/09/2022 Atherosclerosis of [place] ar guero of extremity with ulceration 11/25/2019 HTN (hypertension) 10/28/2015 Hyperlipidemia LDL goal <70 10/28/2015 Adenomatous colon polyp 04/13/2015 Overview: Colonoscopy 04/2015 polyps repeat in 5 years Colonoscopy 03/2020 polyps, repeat in 5 years Background diabetic retinopathy(362.01) 07/10/19 08 Unspecified hearing loss 07/10/2007 Coronary atherosclerosis of unspecified type of vessel, [place] or graft Overview: 4 vessel CABG 2001 Lexiscan only for cardiac evaluation - no treadmill Other ill-defined and unknow n causes of morbidity and mortality Impotence of organic origin Resolved Problems Problem Noted Date Diagnosed Date Resolved Date Type 2 diabetes mellitus with complication 11/16/2017 12/22/2022 Heart disease, unspecified 0 07/10/2007 Encounters Date Type Department Care Team Description 10/15/2023 12:55 PM CDT - 10/15/2023 11:59 PM T Hospital Encounter [facility] [address] [place] [address] Votel, MD Lesly Cleary Isabelle, PT 10/15/2023 Travel 10/11/2023 12:51 PM CDT - 10/11/2023 11:59 PM T Hospital Encounter [facility] [address] [place] [address] Votel, MD Lesly Cleary Isabelle, PT 10/11/2023 Travel 10/11/2023 Telephone [facility] [address] [place] [address] GunnarteMelquiades lewis MD 10/09/2023 Telephone [facility] [address] [place] [address] VotelMelquiades MD Form 10/05/2023 Transcribe Orders [facility] [address] [place] [address] Isatu Hanley MD 10/04/2023 1:42 PM CDT - 10/04/2023 11:59 PM CDT Hospital Encounter [facility] [address] [place] [address] Melquiades Man MD Tonsfeldt, Isabelle, PT 10/04/2023 9:35 AM CDT Office Visit [facility] [address] [place] [address] Rachel Sauceda, DO Diabetes 10/04/2023 Telephone [facility] [address] [place] [address] Rachel Sauceda, DO Medication Management 10/04/2023 Travel 10/03/2023 Refill [facility] [address] [facility] [address] [place] [phone] Shade Manuel MD Refill Request (Farxiga) 10/01/2023 12:58 PM CDT - 10/01/2023 11:59 PM CDT Hospital Encounter [facility] [address] [place] [address] Melquiades Man MD Tonsfeldt, Isabelle, PT 10/01/2023 Travel 09/30/2023 Refill [facility] [address] [facility] [address] [place] [address] Shade Manuel MD Refill Request (Dapagliflozin Propanediol) 09/27/2023 12:56 PM CDT - 09/27/2023 11:59 PM CDT Hospital Encounter [facility] [address] [place] [address] Melquiades Man MD Tonsfeldt, Isabelle, PT 09/27/2023 Travel 09/24/2023 12:57 PM CDT - 09/24/2023 11:59 PM CDT Hospital Encounter [facility] [address] [place] [address] VoteMelquiades lewis MD Tonsfeldt, Isabelle, PT 09/24/2023 Travel 09/20/2023 11:45 AM CDT - 09/20/2023 11:59 PM CDT Hospital Encounter [facility] [address] [place] [address] Votedebbie, MD Lesly Cleary Isabelle, PT 09/20/2023 Travel 09/19/2023 Telephone [facility] [address] [place] [address] Melquiades Man MD 09/17/2023 Telephone [facility] [address] [place] [address] VoteMelquiades lewis MD orders (wound care 2 times per week) 09/13/2023 1:00 PM CDT - 09/13/2023 11:59 PM CDT Hospital [facility] [address] [place] [address] Votel, MD Lesly Cleary Isabelle, PT 09/13/2023 Travel 09/10/2023 12:53 PM CDT - 09/10/2023 11:59 PM CDT Hospital Encounter [facility] [address] [place] [address] Melquiades Man MD Tonsfeldt, Isabelle, PT 09/10/2023 Travel 09/06/2023 9:27 AM CDT - 09/06/2023 11:59 PM CDT Hospital Encounter [facility] [address] [place] [address] VoteMelquiades lewis MD Tonsfeldt, Isabelle, PT 09/06/2023 Travel 08/31/2023 Telephone [facility] [address] [place] [address] Melquiades Man MD ORDERS 08/23/2023 12:46 PM CDT - 08/23/2023 11:59 PM CDT Hospital En[facility] [address] [place] [address] VoteMelquiades lewis MD Tonsfeldt, Isabelle, PT History of leg amputation (HC) 08/23/2023 Travel 08/17/2023 Telephone [facility] [address] [place] [address] Melquiades Man MD Home Care ([facility]) 08/08/2023 Telephone [facility] [address] [place] [address] Melquiades Man MD 08/01/2023 Orders Only [facility] Scanner 1 scan: (1-Ord) [facility], 08/01/2023 07/31/2023 Telephone [facility] [address] [place] [address] Melquiades Man MD 07/27/2023 11:30 AM CDT Office Visit [address] [place] [address] Shade Manuel MD CV Heart Failure Est (6 mo f/u, discuss recent med changes. ) 07/27/2023 10:45 AM CDT Orders Only [address] [place] [address] Lab 07/27/2023 Travel 07/24/[address] [address] Melquiades Man MD 07/24/[address] [address] Melquiades Man MD Refill Request (Fiasp Flextouch Pen Inj 3ml ) 07/20/2023 1:00 PM DUST BOX TENDER Telemedicine [facility] [address] [place] [address] Santana Nails MD Wound Check 07/20/[address] [address] Melquiades Man MD Refill Request; NOVOLOG FLEXPEN 07/20/[address] [address] Ezequiel Nye, AuD Hearing Aid 07/19/[address] [address] Melquiades Man MD 07/18/[address] [address] Melquiades Man MD Refill Request (Basaglar 100 U/ML Kwikpen INJ 3ml) 07/17/2023 2:05 PM DUST BOX TENDER Office Visit [address] [address] Melquiades Man MD Medication Management; Follow Up ([facility]) 07/17/[address] [address] Melquiades Man MD Refill Request (insulin) 07/17/2023 Travel 07/17/[address] [address] Melquiades Man MD Form from Last 3 Months Immunizations Name Administration Dates Next Due COVID-19 vaccine (Moderna 100mcg/0.5mL) PF, MDV 03/09/2021 COVID-19 vaccine (Moderna 50 mcg/0.5mL) 12YO+ BIVALENT PF, MDV 03/29/2022 COVID-19 vaccine (Pfizer-Bio NTech 30mcg/0.3mL) PF, MDV 03/09/2021,07/24/2020,07/03/2020 COVID-19 vaccine Comirnaty (Pfizer-BioNTech 30mcg/0.3mL) 12YO+ [id number] Formula PF, SDV, PFS 03/05/2023 Influenza Virus, [...] ??C (97.5 ??F) 07/17/2023 2 :09 PM DUST BOX TENDER Respiratory Rate 24 05/03/2023 7:04 AM DUST BOX TENDER Oxygen Saturation 99% 10/04/2023 9:2 6 AM CDT Inhaled Oxygen Concentration - - Weight 71.7 kg (158 lb) 10/04/2023 9:26 AM CDT patient reported Height 175.3 cm (5' 9.02) 07/27/2023 1 1:51 AM CDT Body Mass Index 23.32 07/27/2023 11:51 AM CDT Plan of Treatment Upcoming Encounters Date Type Department Care Team (Late st Contact Info) Description 10/18/2023 1:45 PM CDT Appointment [facility] [place] [address] [place] [address] Farheen Puentes, PT [address] [place] [address] 10/22/2023 1:30 PM CDT [facility] [address] [place] [address] Jasmin Hernández, PT [address] [place] [address] 10/25/2023 1:15 PM CDT [facility] [address] [place] [address] Jasmin Hernández, PT [address], [place] [address] 10/29/2023 12:30 PM CDT [facility]ment [facility] [address] [place] [address] Jasmin Hernández, PT [address], [place] [address] 10/30/2023 10:00 AM CDT Patient Outreach [address] [address] Priyanka Hummel, RN [address] [place] [address] 11/01/2023 1:00 PM CDT Appointment [facility] [address] [place] [address] Jasmin Hernández, PT [address] [place] [address] 11/05/2023 1:00 PM CDT Appointment [facility] [address] [place] [address] Jasmin Hernández, PT [address] [place] [address] Health Maintenance Due Date Last Done Comments [...] 11.6(H) <=6.4 % 10/04/2023 9:53 AM CDT [facility] Blood BLOOD SPECIMEN / Unknown Venipuncture / Unknown 10/04/2023 9:44 AM CDT 10/04/2023 9:44 AM CDT Narrative [facility] - 10/04/2023 9:53 AM CDT ? (<=6.9%) [...] Anemias, Splenectomy ? Rachel Sauceda DO CHEMISTRY [facility] [address] [place] [address], * SCAN-EYE EXAM (08/01/2023 12:00 AM CDT) Scanner OTHER * (ABNORMAL) PRO-BNP (07/27/2023 10:49 AM CDT) PRO-BNP 7,600(H) <450 pg/mL 07/27/2023 11:09 PM CDT [facility] Blood BLOOD SPECIMEN / Unknown Butterfly / Unknown 07/27/2023 10:49 AM CDT 07/27/2023 10:50 AM CDT Narrative [facility] - 07/27/2023 11:09 PM CDT The [...] failure. ? Melquiades Man MD SEND OUTS [facility] [address] [place] [address], * (ABNORMAL) BASIC METABOLIC PANEL (07/27/2023 10:49 AM CDT) Pathologist [facility] SODIUM 137 136 - 145 mmol/L 07/27/2023 11:08 PM CDT [facility] POTASSIUM 4.4 3.5 - 5.1 mmol/L 07/27/2023 11:08 PM CDT [facility] CHLORIDE 94(L) 98 - 107 mmol/L 07/27/2023 11:08 PM CDT [facility] CO2,TOTAL 26 22 - 29 mmol/L 07/27/2023 11:08 PM CDT [facility] ANION GAP 17 5 - 18 07/27/2023 11:08 PM T [facility] GLUCOSE 317(H) 70 - 99 mg/dL 07/27/2023 11:08 PM T [facility] CALCIUM 10.1 8.8 - 10.2 mg/dL 07/27/2023 11:08 PM T [facility] BUN 52(H) 8 - 23 mg/dL 07/27/2023 11:08 PM T [facility] CREATININE 1.74(H) 0.70 - 1.20 mg/dL 07/27/2023 11:08 PM T [facility] BUN/CREAT RATIO 30(H) 10 - 20 11:08 PM [facility] eGFR 39(L) >90 mL/min/1.7 3m2 07/27/2023 [...] 10:50 AM CDT Melquiades Man MD CHEMISTRY [facility] [address] [place] [address], from Last 3 Months Additional Health Concerns [...] 12 months since positive culture): resides in acute/jail care, receiving hemodialysis, has chronic open wounds/skin damage, has long-term percutaneous indwelling medical devices Exclusions for nares collection (if <12 months since positive culture) include all of the previous exclusions plus patients on antibiotics 7 days prior to collection 03/08/2023 05/31/2023 MDRO-GNB 04/26/2023 04/26/2023 Advance Directives Documents on File Type Date Recorded Patient Stereoptic Projection Topographer Expl anation POLST 03/26/2023 * Full Code [...] Code Status Discussion: Reviewed Preferences Care Teams Yard Engineer Relationship Specialty Start Date End Date Votel, Melquiades Gray MD [address] [place] [address] PCP - General 11/20/05 Nurses, Advanced Heart Failure [address] [place] [address] Advanced Heart Failure/Transplant Card 01/24/23 Shade Manuel MD [address] [place] [address] [place] [address] Cardiovascular Disease 01/24/23
--- OUTSIDE RECORDS SUMMARY | 2023-10-17 09:05 | XMS_ITS | Clinical Summary ---
Author Organization [facility] Address [address] [place] [address] Care Team Providers Care Billet Bed Operator Name Role Phone Elsewhere, Pcp Primary Care Provider Unavailabl e Source Comments Patient records contain information from all sites at [facility]. For routine questions regarding patient records, call [phone] during business hours, M-F 8:00 AM - 5:00 PM Central Time. Record requests for emergency care only can be directed to [phone] at any time.[facility] Allergies No known active allergies Medications [...] Heel: Area continues to improve. Wound measures [id number]. 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 Woods was admitted to [facility] April 10 following BK right [...] T4 was 0.92 in April 2023. residential treatment counselor confirmed levothyroxine is given every morning (6am) without other medications. Therefore, we will increase levothyroxine 50mcg to 75mcg and rechecked TSH in 6 weeks. Nursing instructed to continue monitoring for symptoms of hypothyroidism and contact [place] provider if any concerns. 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 [...] and palpitation. 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 Atherosclerosis Of [place] Ar teries Of Other Extremities With Ulceration [...] 05/24/2023 Overview: Onychomycosis of toenails; Original Code: [id number] Original Codesystem: SNOMED CT Classification: Medical Confirmation [...] Comments Blood Pressure 107/66 06/18/2023 1:10 PM VISUAL BASIC DEVELOPER Pulse 78 06/18/2023 1:10 PM VISUAL BASIC DEVELOPER Temperature 36.6 ??C (97.8 ??F) 06/18/2023 1:10 PM CS T Respiratory Rate 16 06/18/2023 1:10 PM VISUAL BASIC DEVELOPER Oxygen Saturation 95% 06/18/2023 1:10 PM VISUAL BASIC DEVELOPER Inhaled Oxygen Concentration - - Weight 75.8 kg (167 lb) 06/18/2023 1:10 PM VISUAL BASIC DEVELOPER Height 175.3 cm (5' 9) 04/12/2023 3:21 PM VISUAL BASIC DEVELOPER Body Mass Index 24.66 04/12/2023 3:21 PM VISUAL BASIC DEVELOPER Plan of Treatment Health Maintenance Due Date [...] Advance Directives For more information, please contact: [phone] * DNR/DNI (Latest Code Status on File) Date Activated Date Inactivated Comments 05/24/2023 6:14 PM * DNR/DNI Date Activated Date Inactivated Comments 04/12/2023 4:11 PM 04/16/2023 7:15 AM Care Teams Billet Bed Operator Relationship Specialty Start Date End Date Elsewhere, Pcp PCP - General Internal Medicine 08/28/23
== END 2023-10-17 09:03 | disposition home or self-care (01) ==
LOC: WOUND 09:02
PROVIDERS: PCP Family Medicine; Visit Provider Surgery
DX: E11.621 Type 2 diabetes mellitus with foot ulcer (principal); L97.422 Non-pressure chronic ulcer of left heel and midfoot with fat layer exposed; Z79.4 Long term (current) use of insulin; Z79.84 Long term (current) use of oral hypoglycemic drugs
CPT/HCPCS: 15275; Q4151

== ENCOUNTER 2023-10-24 09:04 | Outpatient (CLI) | payer MEDICARE, BC, SELFPAY ==
--- OUTSIDE RECORDS SUMMARY | 2023-10-24 09:05 | XMS_ITS | Continuity of Care Document ---
Author Name [facility] Organization [facility] Care Team Providers Care D[employer] Installer Name Role Phone [facility] Unavailable Unavailable Problems Combined list of problems from Department of [facility] and [facility] facilities. It does not include entries that were removed or entered in error. Problem Status Onset Date Problem Type Date of Resolution Comments Source Exposure to potentially hazardous substance ([facility] [id number]) Active 07/20/19 24 Condition Jul 20, 2023 Entered By: MECHELLE DEMPSEY Comment: [facility] Documentation Initiative [facility] CAD - Coronary Artery Disease ([facility] [id number]) Active Condition [place] ([facility]) CHF - Congestive Heart Failure ([facility] [id number]) Active Condition [facility]) Diabetes Mellitus Type 2 ([facility] [id number]) Active Condition [facility]) HTN - Hypertension ([facility] [id number]) Active Condition [place] ([facility]) Hyperlipidemia ([facility] [id number]) Active Condition [facility]) Long-term current use of insulin Active Condition [facility]) Peripheral neuropathy due to type 2 diabetes mellitus Active Condition [place] ([facility]) Diagnosis: ICD-10-CM H90.3 Sensorineural hearing loss, bilateral Active Diagnosis [facility] Diagnosis: ICD-10-CM I50.9 Heart failure, unspecified Active Diagnosis [facility]) Diagnosis: ICD-10-CM E11.9 Type 2 diabetes mellitus without complications Active Diagnosis [facility] Diagnosis: ICD-10-CM R26.89 Other abnormalities of gait and mobility Active Diagnosis [facility] ([facility]) Diagnosis: ICD-10-CM Z00.00 Encntr for general adult medical exam w/o abnormal findings Active Diagnosis [facility] ([facility]) Medications Combined list of outpatient medications from Department of [facility] and [facility] facilities.Medications provided include 1) outpatient medications [...] WOUND CARE ORDERS TOPICA LLThanh ACTIVE 02/16/2024 [id number] KATHY MURPHY 2022 [address] [place] OLIS [...] Site Reaction Lot Number CVX Code 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 Comments Source INFLUENZA, HIGH-DOSE, QUADRIVALENT 1 2021 197 complet ed [facility] COVID-19 (MODERNA), MRNA, LNP-S, BIVALENT, PF, 50 MCG/0.5 ML OR 25MCG/0.25 ML DOSE 1 2021 229 complet ed [facility] COVID-19 (PFIZER), MRNA, LNP-S, PF, 30 MCG/0.3 ML DOSE 3 2020 208 complet ed [facility] INFLUENZA, UNSPECIFIED FORMULATION 2020 88 complet ed [facility] TDAP 2020 115 complet ed [employer], lot-[id number] , exp-2022 and given VIS dated 12/17/2020 [facility] ([facility]) ZOSTER RECOMBINANT 2 2020 187 complet ed [facility] ([facility]) ZOSTER RECOMBINANT 1 2020 187 complet ed [facility] ([facility]) COVID-19 (PFIZER), MRNA, LNP-S, PF, 30 MCG/0.3 ML DOSE 2 2020 208 complet ed [facility] COVID-19 (PFIZER), MRNA, LNP-S, PF, 30 MCG/0.3 ML DOSE 1 2020 208 complet ed [facility] INFLUENZA, UNSPECIFIED FORMULATION 2019 88 complet ed [facility] PNEUMOCOCCAL CONJUGATE PCV 13 2014 133 complet ed Per [facility] PNEUMOCOCCAL POLYSACCHARID E PPV23 2010 33 complet ed [facility] PNEUMOCOCCAL POLYSACCHARID E PPV23 2005 33 complet ed [facility] Results Combined list of recent chemistry, [...] Jan 23, 2023 02:00 PM Reporting Lab: [facility] [address] Performing Lab: [facility] [address] [place] ([facility]) BASIC METABOLIC PANEL+MG UREA NITROGEN [MASS/VOLUM E] IN SERUM OR PLASMA 35 8 - 26 01/23 H Specimen Type: PLASMA No comment entered. Ordering Provider: AILIN CHESTER Report Released Date/Time: Jan 23, 2023 02:00 PM Reporting Lab: [facility] [address] Performing Lab: [facility] [address] [place] ([facility]) BASIC METABOLIC PANEL+MG GLUCOSE [MASS/VOLUM E] IN SERUM OR PLASMA 239 70 - 100 01/23 H Specimen Type: PLASMA No comment entered. Ordering Provider: AILIN CHESTER Report Released Date/Time: Jan 23, 2023 02:00 PM Reporting Lab: [facility] [address] Performing Lab: [facility] [address] [place] ([facility]) BASIC METABOLIC PANEL+MG SODIUM [MOLES/VOLU ME] IN SERUM OR PLASMA 140 136 - 145 01/23 Specimen Type: PLASMA No comment entered. Ordering Provider: AILIN CHESTER Report Released Date/Time: Jan 23, 2023 02:00 PM Reporting Lab: [address] Performing Lab: [address] [place] [address] ([facility]) BASIC METABOLIC PANEL+MG POTASSIUM [MOLES/VOLU ME] IN SERUM OR PLASMA 5.1 3.5 - 5.1 01/23 Specimen Type: PLASMA No comment entered. Ordering Provider: AILIN CHESTER Report Released Date/Time: Jan 23, 2023 02:00 PM Reporting Lab: [address] Performing Lab: [address] ([facility]) BASIC METABOLIC PANEL+MG CHLORIDE [MOLES/VOLU ME] IN SERUM OR PLASMA 109 98 - 107 01/23 H Specimen Type: PLASMA No comment entered. Ordering Provider: AILIN CHESTER Report Released Date/Time: Jan 23, 2023 02:00 PM Reporting Lab: [facility] [address] Performing Lab: [facility] [address] [place] ([facility]) BASIC METABOLIC PANEL+MG CARBON DIOXIDE, TOTAL [MOLES/VOLU ME] IN SERUM OR PLASMA 21 22 - 29 01/23 L Specimen Type: PLASMA No comment entered. Ordering Provider: AILIN CHESTER Report Released Date/Time: Jan 23, 2023 02:00 PM Reporting Lab: [facility] [address] Performing Lab: [facility] [address] [place] ([facility]) BASIC METABOLIC PANEL+MG CALCIUM [MASS/VOLUM E] IN SERUM OR PLASMA 9.4 8.4 - 10.2 01/23 Specimen Type: PLASMA No comment entered. Ordering Provider: AILIN CHESTER Report Released Date/Time: Jan 23, 2023 02:00 PM Reporting Lab: [facility] [address] Performing Lab: [facility] [address] [place] ([facility]) BASIC METABOLIC PANEL+MG MAGNESIUM [MASS/VOLUM E] IN SERUM OR PLASMA 1.7 1.6 - 2.6 01/23 Specimen Type: PLASMA No comment entered. Ordering Provider: AILIN CHESTER Report Released Date/Time: Jan 23, 2023 02:00 PM Reporting Lab: [facility] [address] Performing Lab: [facility] [address] [place] ([facility]) BASIC METABOLIC PANEL+MG ANION GAP IN SERUM OR PLASMA 10 5 - 15 01/23 Specimen Type: PLASMA No comment entered. Ordering Provider: AILIN CHESTER Report Released Date/Time: Jan 23, 2023 02:00 PM Reporting Lab: [facility] [address] Performing Lab: [facility] [address] [place] ([facility]) BASIC METABOLIC PANEL+MG GLOMERULAR FILTRATION RATE/1.73 SQ M.PREDICTED [VOLUME RATE/AREA] IN SERUM, PLASMA OR BLOOD BY CREATININE- BASED FORMULA (CKD-EPI 2020) 61 60 01/23 Specimen Type: PLASMA No comment entered. Ordering Provider: AILIN CHESTER Report Released Date/Time: Jan 23, 2023 02:00 PM Reporting Lab: [facility] [address] Performing Lab: [facility] [address] [place] ([facility]) BNP NATRIURETIC PEPTIDE B [MASS/VOLUM E] IN SERUM OR PLASMA 1549 <99 - 99 01/23 H Specimen Type: PLASMA No comment entered. Ordering Provider: AILIN CHESTER Report Released Date/Time: Jan 23, 2023 02:00 PM Reporting Lab: [facility] [address] Performing Lab: [facility] [address] [place] ([facility]) MICROALBU MIN/CREAT ININE RATIO URINE CREATININE [MASS/VOLUM E] IN URINE 132.8 58.0 - 161.0 11/23 Specimen Type: URINE No comment entered. Ordering Provider: AILIN CHESTER Report Released Date/Time: Nov 23, 2022 11:58 AM Reporting Lab: [facility] [address] Performing Lab: [facility] [address] [place] ([facility]) MICROALBU MIN/CREAT ININE RATIO URINE MICROALBUMI N/CREATININ E [MASS RATIO] IN URINE 28.0 11/23 Specimen Type: URINE No comment entered. Ordering Provider: AILIN CHESTER Report Released Date/Time: Nov 23, 2022 11:58 AM Reporting Lab: [facility] [address] Performing Lab: [place] [address] [place] ([facility]) MICROALBU MIN/CREAT ININE RATIO URINE MICROALBUMI N [MASS/VOLUM E] IN URINE 37.2 11/23 H Specimen Type: URINE No comment entered. Ordering Provider: AILIN CHESTER Report Released Date/Time: Nov 23, 2022 11:58 AM Reporting Lab: [facility] [address] Performing Lab: [facility] [address] [place] ([facility]) LIPID PANEL,NON -FASTING CHOLESTEROL [MASS/VOLUM E] IN SERUM OR PLASMA 130 11/23 Specimen Type: PLASMA No comment entered. Ordering Provider: AILIN CHESTER Report Released Date/Time: Nov 23, 2022 11:58 AM Reporting Lab: [facility] [address] Performing Lab: [facility] [address] [place] ([facility]) LIPID PANEL,NON -FASTING CHOLESTEROL IN HDL [MASS/VOLUM E] IN SERUM OR PLASMA 39 11/23 L Specimen Type: PLASMA No comment entered. Ordering Provider: AILIN CHESTER Report Released Date/Time: Nov 23, 2022 11:58 AM Reporting Lab: [facility] [address] Performing Lab: [facility] [address] [place] ([facility]) LIPID PANEL,NON -FASTING CHOLESTEROL IN LDL [MASS/VOLUM E] IN SERUM OR PLASMA BY CALCULATION 73 11/23 Specimen Type: PLASMA No comment entered. Ordering Provider: AILIN CHESTER Report Released Date/Time: Nov 23, 2022 11:58 AM Reporting Lab: [facility] [address] Performing Lab: [facility] [address] [place] ([facility]) LIPID PANEL,NON -FASTING CHOLESTEROL IN VLDL [MASS/VOLUM E] IN SERUM OR PLASMA BY CALCULATION 18 11/23 Specimen Type: PLASMA No comment entered. Ordering Provider: AILIN CHESTER Report Released Date/Time: Nov 23, 2022 11:58 AM Reporting Lab: [facility] [address] Performing Lab: [address] [place] [address] ([facility]) LIPID PANEL,NON -FASTING CHOLESTEROL NON HDL [MASS/VOLUM E] IN SERUM OR PLASMA 91 11/23 Specimen Type: PLASMA No comment entered. Ordering Provider: AILIN CHESTER Report Released Date/Time: Nov 23, 2022 11:58 AM Reporting Lab: [address] Performing Lab: [address] ([facility]) LIPID PANEL,NON -FASTING TRIGLYCERID E [MASS/VOLUM E] IN SERUM OR PLASMA 92 11/23 Specimen Type: PLASMA No comment entered. Ordering Provider: AILIN CHESTER Report Released Date/Time: Nov 23, 2022 11:58 AM Reporting Lab: [facility] [address] Performing Lab: [facility] [phone] [place] [address] ([facility]) CBC LEUKOCYTES [#/VOLUME] IN BLOOD BY AUTOMATED COUNT 10.80 4.0 - 11.0 11/23 Specimen Type: BLOOD No comment entered. Ordering Provider: AILIN CHESTER Report Released Date/Time: Nov 23, 2022 11:58 AM Reporting Lab: [facility] [address] Performing Lab: [address] [place] ([facility]) CBC ERYTHROCYTE S [#/VOLUME] IN BLOOD BY AUTOMATED COUNT 3.87 4.6 - 6.2 11/23 L Specimen Type: BLOOD No comment entered. Ordering Provider: AILIN CHESTER Report Released Date/Time: Nov 23, 2022 11:58 AM Reporting Lab: [facility] [address] Performing Lab: [place] [address] [place] ([facility]) CBC HEMOGLOBIN [MASS/VOLUM E] IN BLOOD 12.1 13.5 - 17.9 11/23 L Specimen Type: BLOOD No comment entered. Ordering Provider: AILIN CHESTER Report Released Date/Time: Nov 23, 2022 11:58 AM Reporting Lab: [facility] [address] Performing Lab: [facility] [address] [place] ([facility]) CBC HEMATOCRIT [VOLUME FRACTION] OF BLOOD BY AUTOMATED COUNT 37.5 41 - 54 11/23 L Specimen Type: BLOOD No comment entered. Ordering Provider: AILIN CHESTER Report Released Date/Time: Nov 23, 2022 11:58 AM Reporting Lab: [facility] [address] Performing Lab: [address] [place] [address] ([facility]) CBC MCV [ENTITIC VOLUME] BY AUTOMATED COUNT 96.9 80 - 100 11/23 Specimen Type: BLOOD No comment entered. Ordering Provider: AILIN CHESTER Report Released Date/Time: Nov 23, 2022 11:58 AM Reporting Lab: [facility] [address] Performing Lab: [facility] [address] [place] ([facility]) CBC MCH [ENTITIC MASS] BY AUTOMATED COUNT 31.3 27 - 33 11/23 Specimen Type: BLOOD No comment entered. Ordering Provider: AILIN CHESTER Report Released Date/Time: Nov 23, 2022 11:58 AM Reporting Lab: [facility] [address] Performing Lab: [facility] [address] [place] ([facility]) CBC MCHC [MASS/VOLUM E] BY AUTOMATED COUNT 32.3 32.0 - 37.5 11/23 Specimen Type: BLOOD No comment entered. Ordering Provider: AILIN CHESTER Report Released Date/Time: Nov 23, 2022 11:58 AM Reporting Lab: [facility] [address] Performing Lab: [facility] [address] [place] ([facility]) CBC PLATELETS [#/VOLUME] IN BLOOD BY AUTOMATED COUNT 293 150 - 400 11/23 Specimen Type: BLOOD No comment entered. Ordering Provider: AILIN CHESTER Report Released Date/Time: Nov 23, 2022 11:58 AM Reporting Lab: [facility] [address] Performing Lab: [address] ([facility]) CBC PLATELET MEAN VOLUME [ENTITIC VOLUME] IN BLOOD BY AUTOMATED COUNT 10.3 7.4 - 10.4 11/23 Specimen Type: BLOOD No comment entered. Ordering Provider: AILIN CHESTER Report Released Date/Time: Nov 23, 2022 11:58 AM Reporting Lab: [facility] [address] Performing Lab: [place] [address] [place] ([facility]) CBC ERYTHROCYTE DISTRIBUTIO N WIDTH [RATIO] BY AUTOMATED COUNT 13.2 11.5 - 14.5 11/23 Specimen Type: BLOOD No comment entered. Ordering Provider: AILIN CHESTER Report Released Date/Time: Nov 23, 2022 11:58 AM Reporting Lab: [facility] [address] Performing Lab: [address] [place] ([facility]) TSH W/REFLEX TO FREE T4 THYROTROPIN [UNITS/VOLU ME] IN SERUM OR PLASMA 4.59 0.35 - 4.94 11/23 Specimen Type: PLASMA No comment entered. Ordering Provider: AILIN CHESTER Report Released Date/Time: Nov 23, 2022 11:58 AM Reporting Lab: [facility] [address] Performing Lab: [facility] [address] [place] ([facility]) COMPREHEN SIVE METABOLIC PANEL+MG CREATININE [MASS/VOLUM E] IN SERUM OR PLASMA 1.2 0.7 - 1.2 11/23 Specimen Type: PLASMA No comment entered. Ordering Provider: AILIN CHESTER Report Released Date/Time: Nov 23, 2022 11:58 AM Reporting Lab: [facility] [address] Performing Lab: [address] ([facility]) COMPREHEN SIVE METABOLIC PANEL+MG UREA NITROGEN [MASS/VOLUM E] IN SERUM OR PLASMA 34 8 - 26 11/23 H Specimen Type: PLASMA No comment entered. Ordering Provider: AILIN CHESTER Report Released Date/Time: Nov 23, 2022 11:58 AM Reporting Lab: [facility] [address] Performing Lab: [facility] [address] [place] ([facility]) COMPREHEN SIVE METABOLIC PANEL+MG GLUCOSE [MASS/VOLUM E] IN SERUM OR PLASMA 54 70 - 100 11/23 L Specimen Type: PLASMA No comment entered. Ordering Provider: AILIN CHESTER Report Released Date/Time: Nov 23, 2022 11:58 AM Reporting Lab: [facility] [address] Performing Lab: [facility] [address] [place] ([facility]) COMPREHEN SIVE METABOLIC PANEL+MG SODIUM [MOLES/VOLU ME] IN SERUM OR PLASMA 143 136 - 145 11/23 Specimen Type: PLASMA No comment entered. Ordering Provider: AILIN CHESTER Report Released Date/Time: Nov 23, 2022 11:58 AM Reporting Lab: [facility] [address] Performing Lab: [facility] [address] [place] ([facility]) COMPREHEN SIVE METABOLIC PANEL+MG POTASSIUM [MOLES/VOLU ME] IN SERUM OR PLASMA 4.4 3.5 - 5.1 11/23 Specimen Type: PLASMA No comment entered. Ordering Provider: AILIN CHESTER Report Released Date/Time: Nov 23, 2022 11:58 AM Reporting Lab: [facility] [address] Performing Lab: [facility] [address] [place] ([facility]) COMPREHEN SIVE METABOLIC PANEL+MG CHLORIDE [MOLES/VOLU ME] IN SERUM OR PLASMA 107 98 - 107 11/23 Specimen Type: PLASMA No comment entered. Ordering Provider: AILIN CHESTER Report Released Date/Time: Nov 23, 2022 11:58 AM Reporting Lab: [facility] [address] Performing Lab: [facility] [address] [place] ([facility]) COMPREHEN SIVE METABOLIC PANEL+MG CARBON DIOXIDE, TOTAL [MOLES/VOLU ME] IN SERUM OR PLASMA 23 22 - 29 11/23 Specimen Type: PLASMA No comment entered. Ordering Provider: AILIN CHESTER Report Released Date/Time: Nov 23, 2022 11:58 AM Reporting Lab: [facility] [address] Performing Lab: [facility] [address] [place] ([facility]) COMPREHEN SIVE METABOLIC PANEL+MG CALCIUM [MASS/VOLUM E] IN SERUM OR PLASMA 9.7 8.4 - 10.2 11/23 Specimen Type: PLASMA No comment entered. Ordering Provider: AILIN CHESTER Report Released Date/Time: Nov 23, 2022 11:58 AM Reporting Lab: [address] Performing Lab: [address] [place] ([facility]) COMPREHEN SIVE METABOLIC PANEL+MG PROTEIN [MASS/VOLUM E] IN SERUM OR PLASMA 7.2 6.0 - 8.3 11/23 Specimen Type: PLASMA No comment entered. Ordering Provider: AILIN CHESTER Report Released Date/Time: Nov 23, 2022 11:58 AM Reporting Lab: [facility] [address] Performing Lab: [place] [address] [place] ([facility]) COMPREHEN SIVE METABOLIC PANEL+MG ALBUMIN [MASS/VOLUM E] IN SERUM OR PLASMA 4.1 3.5 - 5.2 11/23 Specimen Type: PLASMA No comment entered. Ordering Provider: AILIN CHESTER Report Released Date/Time: Nov 23, 2022 11:58 AM Reporting Lab: [facility] [address] Performing Lab: [facility] [address] [place] ([facility]) COMPREHEN SIVE METABOLIC PANEL+MG BILIRUBIN.T OTAL [MASS/VOLUM E] IN SERUM OR PLASMA 0.5 0.2 - 1.2 11/23 Specimen Type: PLASMA No comment entered. Ordering Provider: AILIN CHESTER Report Released Date/Time: Nov 23, 2022 11:58 AM Reporting Lab: [facility] [address] Performing Lab: [facility] [address] [place] ([facility]) COMPREHEN SIVE METABOLIC PANEL+MG MAGNESIUM [MASS/VOLUM E] IN SERUM OR PLASMA 1.4 1.6 - 2.6 11/23 L Specimen Type: PLASMA No comment entered. Ordering Provider: AILIN CHESTER Report Released Date/Time: Nov 23, 2022 11:58 AM Reporting Lab: [address] Performing Lab: [address] ([facility]) COMPREHEN SIVE METABOLIC PANEL+MG ANION GAP IN SERUM OR PLASMA 13 5 - 15 11/23 Specimen Type: PLASMA No comment entered. Ordering Provider: AILIN CHESTER Report Released Date/Time: Nov 23, 2022 11:58 AM Reporting Lab: [place] [id number] Performing Lab: [address] ([facility]) COMPREHEN SIVE METABOLIC PANEL+MG ALKALINE PHOSPHATASE [ENZYMATIC ACTIVITY/VO LUME] IN SERUM OR PLASMA 87 40 - 150 11/23 Specimen Type: PLASMA No comment entered. Ordering Provider: AILIN CHESTER Report Released Date/Time: Nov 23, 2022 11:58 AM Reporting Lab: [facility] [address] Performing Lab: [facility] [address] [place] ([facility]) COMPREHEN SIVE METABOLIC PANEL+MG ALANINE AMINOTRANSF ERASE [ENZYMATIC ACTIVITY/VO LUME] IN SERUM OR PLASMA 28 11/23 Specimen Type: PLASMA No comment entered. Ordering Provider: AILIN CHESTER Report Released Date/Time: Nov 23, 2022 11:58 AM Reporting Lab: [facility] [address] Performing Lab: [facility] [phone] [place] [address] ([facility]) COMPREHEN SIVE METABOLIC PANEL+MG ASPARTATE AMINOTRANSF ERASE [ENZYMATIC ACTIVITY/VO LUME] IN SERUM OR PLASMA 33 11/23 Specimen Type: PLASMA No comment entered. Ordering Provider: AILIN CHESTER Report Released Date/Time: Nov 23, 2022 11:58 AM Reporting Lab: [facility] [address] Performing Lab: [facility] [address] [place] ([facility]) COMPREHEN SIVE METABOLIC PANEL+MG GLOMERULAR FILTRATION RATE/1.73 SQ M.PREDICTED [VOLUME RATE/AREA] IN SERUM, PLASMA OR BLOOD BY CREATININE- BASED FORMULA (CKD-EPI 2020) 61 11/23 Specimen Type: PLASMA No comment entered. Ordering Provider: AILIN CHESTER Report Released Date/Time: Nov 23, 2022 11:58 AM Reporting Lab: [facility] [address] Performing Lab: [facility] [address] [place] ([facility]) HEMOGLOBI N A1C HEMOGLOBIN A1C/HEMOGLO BIN.TOTAL IN [...] Nov 23, 2022 11:58 AM Reporting Lab: [facility] [address] Performing Lab: [facility] [address] [place] ([facility]) Vital Signs Combined list of inpatient and [...] DC Date Status Disposition Source [place] [facility] Outpatient Encounter [id number] 03/29 QASIM SCHULZ [facility] [place] [facility] Outpatient Encounter [id number] 04/05 QASIM SCHULZ [facility] [place] [facility] Outpatient Encounter [id number] 07/31 [place] [facility] [place] [facility] Outpatient Encounter [id number] 08/21 [place] [facility] [place] [facility] Outpatient Encounter [id number] 09/20 [place] [facility] Outpatient [facility]counter [id number] [id number] 11/11 [facility] [place] [facility] Outpatient Encounter [id number] ZARI POWER 11/16 [place] [facility] [place] [facility] Outpatient Encounter [id number] 11/21 [place] [facility] O/P EST MOD 30-39 MIN [id number] Diagnos is: ICD-10- CM Z00.00 Encntr for general adult medical exam w/o abnorma l finding s
CANDELARIO CHESTER DA K 11/23 [place] ([facility]) [place] ([facility]) GAIT TRAINING THERAPY [id number] Diagnos is: ICD-10- CM R26.89 Other abnorma lities of gait and mobilit y
OMAYRA JAMESON NTER V 11/23 [place] ([facility]) [place] [facility] Outpatient Encounter [id number] SA JAMARI JAMESON R 12/11 [place] [facility] [place] [facility] Outpatient Encounter [id number] 12/25 [place] [facility] [place] [facility] Outpatient Encounter [id number] SA JAMARI JAMESON R 12/28 [place] [facility] [place] [facility] Outpatient Encounter [id number] 01/05 [place] [facility] [place] [facility] Outpatient Encounter [id number] 01/11 [place] [facility] [place] [facility] Outpatient Encounter [id number] 01/16 [place] [facility] OFFICE O/P EST HI 40-54 MIN [id number] Diagnos is: ICD-10- CM I50.9 Heart failure , unspeci fied
CANDELARIO CHESTER 01/23 [facility] ([facility] [place] [facility] Outpatient Encounter [id number] Marcus POTTS I 01/24 [place] [facility] [place] [facility] Outpatient Encounter [id number] Danica TORRE 02/05 [place] [facility] [facility] [place] [facility] Outpatient Encounter [id number] 02/09 [place] [facility] [place] [facility] Outpatient Encounter [id number] Danica TORRE 02/09 [place] [facility] [place] [facility] Outpatient Encounter [id number] 02/14 [place] [facility] [place] [facility] Outpatient Encounter [id number] 02/15 [place] [facility] [place] [facility] Outpatient Encounter [id number] 02/19 [place] [facility] [place] [facility] Outpatient Encounter [id number] 02/20 [place] [facility] [place] [facility] Outpatient Encounter [id number] 02/20 [place] [facility] [place] [facility] Outpatient Encounter [id number] 02/20 [place] [facility] [place] [facility] Outpatient Encounter [id number] 02/20 [place] [facility] [place] [facility] Outpatient Encounter [id number] 02/21 [place] [facility] [place] [facility] QNHP OL DIG ASSMT&MGMT 5-10 [id number] Diagnos is: ICD-10- CM E11.9 Type 2 diabete s mellitu s without complic ations< br/> HARDER,SIVA LY 02/22 [place] [facility] ([facility]) PRO PHONE CALL 11-20 MIN [id number] Diagnos is: ICD-10- CM I50.9 Heart failure , unspeci fied
HENRICH,BR ANDON M 02/23 [facility] ([facility]) [place] [facility] Outpatient Encounter [id number] 02/26 [place] [facility] [place] [facility] Outpatient Encounter [id number] 03/01 [place] [facility] [place] [facility] Outpatient Encounter [id number] SA TRINO RA R 03/09 [place] [facility] [place] [facility] Outpatient Encounter [id number] 03/14 [place] [facility] [place] [facility] Outpatient Encounter [id number] SA TRINO RA R 04/12 [place] [facility] [place] [facility] Outpatient Encounter [id number] SA TRINO RA R 04/16 [place] [facility] [place] [facility] Outpatient Encounter [id number] TRINO RA R 05/01 [place] [facility] [place] [facility] Outpatient Encounter [id number] 07/11 [place] [facility] [place] [facility] Outpatient Encounter [id number] [place] [facility] [place] [facility] Outpatient Encounter [id number] 07/12 [facility] [place] [facility] HC PRO PHONE CALL 5-10 MIN [id number] Diagnos is: ICD-10- CM 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
LICOERISVIVRADHA Frey [facility] HE[facility] A[facility] REPAIR/MOD IFYING [id number] Diagnos is: ICD-10- CM 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
CARY CORCORAN C 08/09 [facility] MARIA T IS [facility] HEARING AID FITTING/CH ECKING [id number] Diagnos is: ICD-10- CM 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
Sy MAKI 09/17 [facility] Social History Combined list of available smoking, tobacco, and other social history from Department of Defense and Veterans Affairs facilities. Social History Type Response Date Comment [facility] e Tobacco smoking status [place] VA-TOBACCO FORMER USER 11/23/2022 [facility] ([facility] History of tobacco use [place]-TO[place] QU[place] 1 5 YRS OR MORE 11/23/2022 [facility] ([facility]) History of tobacco use VA-TOBACCO FORMER USER 11/29/2021 [facility] ([facility]) History of tobacco use VA-TOBACCO FORMER USER 10/21/2020 [facility] ([facility])
--- OUTSIDE RECORDS SUMMARY | 2023-10-24 09:06 | XMS_ITS | Clinical Summary ---
Author Organization [employer] [facility] [employer] [facility] Address [place], [place] [address] Care Team Providers Care Exercise Physiology Professor Name Role Phone VotelMelquiades MD Primary Care Provider + Nurses, Advanced Heart Failure Unavailable + Shade Manuel MD Unavailable [phone] Allergies No known active allergies Medications Medication Sig Dispensed Refills Start Date End Date Status blood-glucose meterIndications :Type 2 diabetes mellitus with complication (HC) Ascensia Glucometer, Dispense meter, test strips, lancets covered by pt ins. 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 11/25/2019 HTN (hypertension) 10/28/2015 Hyperlipidemia LDL goal <70 10/28/2015 Adenomatous colon polyp 04/13/2015 Overview: Colonoscopy 04/2015 polyps repeat in 5 years Colonoscopy 03/2020 polyps, repeat in 5 years Background diabetic retinopathy(362.01) 07/10/19 08 Unspecified hearing loss 07/10/2007 Coronary atherosclerosis of unspecified type of vessel, winnebago or graft Overview: 4 vessel CABG 2001 Lexiscan only for cardiac evaluation - no treadmill Other ill-defined and unknow n causes of morbidity and mortality Impotence of organic origin Resolved Problems Problem Noted Date Diagnosed Date Resolved Date Type 2 diabetes mellitus with complication 11/16/2017 12/22/2022 Heart disease, unspecified 0 07/10/2007 Encounters Date Type Department Care Team Description 10/23/2023 Telephone [facility] [address] [place] [address] Melquiades Man MD 10/22/2023 1:21 PM CDT - 10/22/2023 11:59 PM CDT Hospital Encounter [facility] [address], [place] [address] GunnarteMelquiades lewis MD Oswald, Rebecca L, PT 10/22/2023 Travel 10/18/2023 1:45 PM CDT - 10/18/2023 11:59 PM CDT Hospital Encounter [facility] [address], [place] [address] VotelMelquiades MD Manuell, Kayla, PT 10/18/2023 Travel 10/17/2023 Telephone [facility] [address] [place] [address] Melquiades Man MD Outside Order (regarding frequency of home health visits) 10/15/2023 12:55 PM CDT - 10/15/2023 11:59 PM CDT Hospital Encounter [facility] ? [facility] [address] [place] [address] Votedebbie, MD Lesly Cleary Isabelle, PT 10/15/2023 Travel 10/11/2023 12:51 PM CDT - 10/11/2023 11:59 PM CDT Hospital [facility] ? [facility] [address] [place] [address] Votel, MD Lesly Cleary Isabelle, PT 10/11/2023 Travel 10/11/2023 Telephone [facility] [address] [place] [address] VoteMelquiades lewis MD 10/09/2023 Telephone [facility] [address] [place] [address] VoteMelquiades lewis MD Form 10/05/2023 Transcribe Orders [facility] [address] [place] [address] Isatu Hanley MD 10/04/2023 1:42 PM CDT - 10/04/2023 11:59 PM CDT Hospital Encounter [facility] and [facility] ? [facility] [address] [place] [address] Votel, MD Lesly Cleary Isabelle, PT 10/04/2023 9:35 AM CDT Office Visit [facility] [address] [place] [address] Rachel Sauceda, DO Diabetes 10/04/2023 Telephone [facility] [address] [place] [address] Rachel Sauceda, DO Medication Management 10/04/2023 Travel 10/03/2023 Refill [facility] [address] [facility] [address] [place] [address] Shade Manuel MD Refill Request (Farxiga) 10/01/2023 12:58 PM CDT - 10/01/2023 11:59 PM CDT Hospital Encounter [facility] ? [facility] [address] [place] [address] Melquiades Man MD Tonsfeldt, Isabelle, PT 10/01/2023 Travel 09/30/2023 Refill [facility] [address] [facility] [address] [place] [address] Shade Manuel MD Refill Request (Dapagliflozin Propanediol) 09/27/2023 12:56 PM CDT - 09/27/2023 11:59 PM CDT Hospital Encounter [facility] ? [facility] [address] [place] [address] Melquiades Man MD Tonsfeldt, Isabelle, PT 09/27/2023 Travel 09/24/2023 12:57 PM CDT - 09/24/2023 11:59 PM CDT Hospital Encounter [facility] ? [facility] [address] [place] [address] GunnarteMelquiades lewis MD Tonsfeldt, Isabelle, PT 09/24/2023 Travel 09/20/2023 11:45 AM CDT - 09/20/2023 11:59 PM CDT Hospital Encounter [facility] ? [facility] [address], [place] [address] Melquiades Man MD Tonsfeldt, Isabelle, PT 09/20/2023 Travel 09/19/[address] [address] Melquiades Man MD 09/17/2023 Telephone [facility] [address] [place] [address] Melquiades Man MD orders (wound care 2 times per week) 09/13/2023 1:00 PM CDT - 09/13/2023 11:59 PM CDT Hospital Encounter [facility] ? [facility] [address], [place] [address] Melquiades Man MD Tonsfeldt, Isabelle, PT 09/13/2023 Travel 09/10/2023 12:53 PM CDT - 09/10/2023 11:59 PM CDT Hospital Encounter [facility] ? [facility] [address] [place] [address] Melquiades Man MD Tonsfeldt, Isabelle, PT 09/10/2023 Travel 09/06/2023 9:27 AM CDT - 09/06/2023 11:59 PM CDT Hospital Encounter [facility] ? [facility] [address], [place] [address] Melquiades Man MD Tonsfeldt, Isabelle, PT 09/06/2023 Travel 08/31/2023 Telephone [facility] [address] [place] [address] Melquiades Man MD ORDERS 08/23/2023 12:46 PM CDT - 08/23/2023 11:59 PM CDT Hospital Encounter [facility] ? [facility] [address] [place] [address] Melquiades Man MD Tonsfeldt, Isabelle, PT History of leg amputation (HC) 08/23/2023 Travel 08/17/2023 Telephone [facility] [address] [place] [address] Melquiades Man MD Home Care ([facility] HEALTH [facility]) 08/08/2023 Telephone [facility] [address] [place] [address] Melquiades Man MD 08/01/2023 Orders Only [facility] Scanner 1 scan: (1-Ord) [facility], 08/01/2023 07/31/2023 Telephone [facility] [address] [place] [address] Melquiades Man MD 07/27/2023 11:30 AM CDT Office Visit [address] [place] [address] Shade Manuel MD CV Heart Failure Est (6 mo f/u, discuss recent med changes. ) 07/27/2023 10:45 AM CDT Orders Only [address] [place] [facility] [address] Lab 07/27/2023 Travel 07/24/2023 Telephone [facility] [address] [place] [address] Melquiades Man MD 07/24/2023 Refill [facility] [address] [place] [address] Melquiades Man MD Refill Request (Fiasp Flextouch Pen Inj 3ml ) from Last 3 Months Immunizations Name Administration Dates Next Due COVID-19 vaccine (Moderna 100mcg/0.5mL) PF, MDV 03/09/2021 COVID-19 vaccine (Moderna 50 mcg/0.5mL) 12YO+ BIVALENT PF, MDV 03/29/2022 COVID-19 vaccine (Pfizer-Bio NTech 30mcg/0.3mL) PF, MDV 03/09/2021,07/24/2020,07/03/2020 COVID-19 vaccine Comirnaty (Pfizer-BioNTech 30mcg/0.3mL) 12YO+ [id number] Formula PF, SDV, PFS 03/05/2023 Influenza Virus, [...] ??C (97.5 ??F) 07/17/2023 2 :09 PM FITNESS AND WELLNESS COORDINATOR Respiratory Rate 24 05/03/2023 7:04 AM FITNESS AND WELLNESS COORDINATOR Oxygen Saturation 99% 10/04/2023 9:2 6 AM CDT Inhaled Oxygen Concentration - - Weight 71.7 kg (158 lb) 10/04/2023 9:26 AM CDT patient reported Height 175.3 cm (5' 9.02) 07/27/2023 1 1:51 AM CDT Body Mass Index 23.32 07/27/2023 11:51 AM CDT Plan of Treatment Upcoming Encounters Date Type Department Care Team (Late st Contact Info) Description 10/25/2023 1:15 PM CDT Appointment [facility] [address] [place] [address] Jasmin Hernández, PT [address] [place] [address] 10/29/2023 12:30 PM CDT Appointment [facility] [address] [place] [address] Jasmin Hernández, PT [address] [place] [address] 10/30/2023 10:00 AM CDT Patient Outreach [address] [address] Priyanka Hummel, RN [address] [facility] [place] [address] 11/01/2023 1:00 PM CDT Appointment [facility] [address] [place] [address] Jasmin Hernández, PT [address] [place] [address] 11/05/2023 1:00 PM CDT Appointment [facility] [address] [place] [address] Jasmin Hernández, PT [address] [place] [address] 11/12/2023 1:00 PM CDT Appointment [facility] [address] [place] [address] Jasmin Hernández, PT [address] [place] [address] 11/20/2023 1:45 PM CDT Appointment [facility] [address] [place] [address] Jasmin Hernández, PT [address] [place] [address] 11/22/2023 1:30 PM CDT Appointment [facility] [address] [place] [address] Farheen Puentes, PT [address] [place] [address] 11/26/2023 1:15 PM CDT Appointment [facility] [address] [place] [address] Jasmin Hernández, PT [address] [place] [address] 11/29/2023 1:00 PM CDT Appointment [facility] [address] [place] [address] Farheen Puentes, PT [address] [place] [address] 12/03/2023 1:45 PM CDT Appointment [facility] [address] [place] [address] Farheen Puentes, PT [address] [place] [address] 12/06/2023 1:00 PM CDT Appointment [facility] [address] [place] [address] Farheen Puentes, PT [address] [place] [address] 12/10/2023 1:45 PM CDT Appointment [facility] [address] [place] [address] Farheen Puentes, PT [address] [place] [address] 12/13/2023 1:45 PM CDT App[facility]ment [facility] [address] [place] [address] Farheen Puentes, PT [address] [place] [address] 12/17/2023 1:00 PM CDT Appointment [facility] [address] [place] [address] Farheen Puentes, PT [address] [place] [address] 12/20/2023 1:00 PM CDT Appointment [facility] [address] [place] [address] Farheen Puentes, PT [address] [place] [address] 12/24/2023 1:00 PM CDT Appointment [facility] [address] [place] [address] Farheen Puentes, PT [address] [place] [address] 12/27/2023 1:00 PM CDT Appointment [facility] [address] [place] [address] Farheen Puentes, PT [address] [place] [address] 12/31/2023 1:00 PM CDT Appointment [facility] [address] [place] [address] Jasmin Hernández, PT [address] [place] [address] 01/02/2024 1:45 PM CDT Appointment [facility] [address] [place] [address] Farheen Puentes, PT [address] [place] [address] Health Maintenance Due Date Last Done Comments COVID-19 vaccine series ( season) 2023 03/05/2023, 03/29/2022, 03/09/2021, Additional history exists Medicare Wellness for age 65+ 08/02/2023, 11/25/2019, [...] series for age 50+ Completed 01/21/2021, 10/21/2020 Procedures Procedure Name Priority Date/Time Associated Diagnosis [...] A1C MONITORING (POCT) (10/04/2023 9:44 AM CDT) [facility] HEMOGLOBIN A1C MONITORING (POCT) 11.6(H) <=6.4 % 10/04/2023 9:53 AM CDT [facility] Blood BLOOD SPECIMEN / Unknown Venipuncture / Unknown 10/04/2023 9:44 AM CDT 10/04/2023 9:44 AM CDT Narrative [facility] - 10/04/2023 9:53 AM CDT ? (<=6.9%) [...] Anemias, Splenectomy ? Rachel Sauceda DO CHEMISTRY [facility] [place] [address], * SCAN-EYE EXAM (08/01/2023 12:00 AM CDT) Scanner OTHER * (ABNORMAL) PRO-BNP (07/27/2023 10:49 AM CDT) PRO-BNP 7,600(H) <450 pg/mL 07/27/2023 11:09 PM CDT [facility] Blood BLOOD SPECIMEN / Unknown Butterfly / Unknown 07/27/2023 10:49 AM CDT 07/27/2023 10:50 AM CDT Narrative [facility] - 07/27/2023 11:09 PM CDT The [...] failure. ? Melquiades Man MD SEND OUTS [facility] [address] [place] [address], * (ABNORMAL) BASIC METABOLIC PANEL (07/27/2023 10:49 AM CDT) SODIUM 137 136 - 145 mmol/L 07/27/2023 11:08 PM T [facility] POTASSIUM 4.4 3.5 - 5.1 mmol/L 07/27/2023 11:08 PM T [facility] CHLORIDE 94(L) 98 - 107 mmol/L 07/27/2023 11:08 PM T [facility] CO2,TOTAL 26 22 - 29 mmol/L [...] - 23 mg/dL 07/27/2023 11:08 PM T [facility] CREATININE 1.74(H) 0.70 - 1.20 mg/dL 07/27/2023 11:08 PM [facility] BUN/CREAT RATIO 30(H) 10 - 20 11:08 PM T [facility] eGFR 39(L) >90 mL/min/1.7 3m2 07/27/2023 11:08 PM [facility] Comment:As of 2021, eG [...] 10:50 AM CDT Melquiades Man MD CHEMISTRY [facility] 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
--- OUTSIDE RECORDS SUMMARY | 2023-10-24 09:06 | XMS_ITS | Referral Summary ---
Author Organization [facility] Address [address] [place] [address] Care Team Providers Care Property Management Specialist Name Role Phone Elsewhere, Pcp Primary Care Provider Unavailabl e Source Comments Patient records contain information from all sites at [facility]. For routine questions regarding patient records, call [phone] during business hours, M-F 8:00 AM - 5:00 PM Central Time. Record requests for emergency care only can be directed to [phone] at any time.[facility] Allergies No known active allergies Medications [...] Heel: Area continues to improve. Wound measures [id number]. Edges well defined, attached and 100% re-epithelialized [...] will follow up with his PCP in [facility] (Current) Anticoagulant Treatment 08/2022 Overview: [...] was admitted to [facility] April 10 following BK right lower extremity. [...] Last T4 was 0.92 in April 2023. campus president confirmed levothyroxine is given every morning (6am) without other medications. Therefore, we will increase levothyroxine 50mcg to 75mcg and rechecked TSH in 6 weeks. Nursing instructed to continue monitoring for symptoms of hypothyroidism and contact [place] provider if any concerns. 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 Atherosclerosis Of [place] Ar teries Of Other Extremities With Ulceration [...] for COVID-19 12/27/2022. Treated with remdesivir at [facility]. Anemia 01/16/2023 04/12/2023 Overview: Lab Results [...] 05/24/2023 Overview: Onychomycosis of toenails; Original Code: [id number] Original Codesystem: SNOMED CT Classification: Medical Confirmation [...] Comments Blood Pressure 107/66 06/18/2023 1:10 PM SENIOR CONTROLS ANALYST Pulse 78 06/18/2023 1:10 PM SENIOR CONTROLS ANALYST Temperature 36.6 ??C (97.8 ??F) 06/18/2023 1:10 PM CS T Respiratory Rate 16 06/18/2023 1:10 PM SENIOR CONTROLS ANALYST Oxygen Saturation 95% 06/18/2023 1:10 PM SENIOR CONTROLS ANALYST Inhaled Oxygen Concentration - - Weight 75.8 kg (167 lb) 06/18/2023 1:10 PM SENIOR CONTROLS ANALYST Height 175.3 cm (5' 9) 04/12/2023 3:21 PM SENIOR CONTROLS ANALYST Body Mass Index 24.66 04/12/2023 3:21 PM SENIOR CONTROLS ANALYST Plan of Treatment Not on file Advance Directives For more information, please contact: [phone] * DNR/DNI (Latest Code Status on File) Date Activated Date Inactivated Comments 05/24/2023 6:14 PM * DNR/DNI Date Activated Date Inactivated Comments 04/12/2023 4:11 PM 04/16/2023 7:15 AM Care Teams Property Management Specialist Relationship Specialty Start Date End Date Elsewhere, Pcp PCP - General Internal Medicine 08/28/23
--- OUTSIDE RECORDS SUMMARY | 2023-10-24 09:06 | XMS_ITS | Clinical Summary ---
Author Organization [facility] Address [address] [place] [address] Care Team Providers Care Extruder Tender Name Role Phone Elsewhere, Pcp Primary Care Provider Unavailabl e Source Comments Patient records contain information from all sites at [facility]. For routine questions regarding patient records, call [phone] during business hours, M-F 8:00 AM - 5:00 PM Central Time. Record requests for emergency care only can be directed to [phone] at any time.[facility] Allergies No known active allergies [...] Heel: Area continues to improve. Wound measures [id number]. Edges well defined, attached and 100% re-epithelialized [...] will follow up with his PCP in [facility] (Current) Anticoagulant Treatment 08/2022 Overview: On apixaban [...] standard wheelchair Mr. Woods was admitted to [facility] April 10 following BK right lower [...] Last T4 was 0.92 in April 2023. finance vice president confirmed levothyroxine is given every morning (6am) without other medications. Therefore, we will increase levothyroxine 50mcg to 75mcg and rechecked TSH in 6 weeks. Nursing instructed to continue monitoring for symptoms of hypothyroidism and contact [facility] provider if any concerns. Amputation Toe Status [...] and palpitation. 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 Atherosclerosis Of [place] Ar teries Of Other Extremities With Ulceration [...] for COVID-19 12/27/2022. Treated with remdesivir at [facility]. Anemia 01/16/2023 04/12/2023 Overview: Lab Results [...] 05/24/2023 Overview: Onychomycosis of toenails; Original Code: [id number] Original Codesystem: SNOMED CT Classification: Medical Confirmation [...] Comments Blood Pressure 107/66 06/18/2023 1:10 PM BOAT AND PLANT UTILITY SUPERVISOR Pulse 78 06/18/2023 1:10 PM BOAT AND PLANT UTILITY SUPERVISOR Temperature 36.6 ??C (97.8 ??F) 06/18/2023 1:10 PM CS T Respiratory Rate 16 06/18/2023 1:10 PM BOAT AND PLANT UTILITY SUPERVISOR Oxygen Saturation 95% 06/18/2023 1:10 PM BOAT AND PLANT UTILITY SUPERVISOR Inhaled Oxygen Concentration - - Weight 75.8 kg (167 lb) 06/18/2023 1:10 PM BOAT AND PLANT UTILITY SUPERVISOR Height 175.3 cm (5' 9) 04/12/2023 3:21 PM BOAT AND PLANT UTILITY SUPERVISOR Body Mass Index 24.66 04/12/2023 3:21 PM BOAT AND PLANT UTILITY SUPERVISOR Plan of Treatment Health Maintenance Due [...] Advance Directives For more information, please contact: [phone] * DNR/DNI (Latest Code Status on File) Date Activated Date Inactivated Comments 05/24/2023 6:14 PM * DNR/DNI Date Activated Date Inactivated Comments 04/12/2023 4:11 PM 04/16/2023 7:15 AM Care Teams Extruder Tender Relationship Specialty Start Date End Date Elsewhere, Pcp PCP - General Internal Medicine 08/28/23
--- OUTSIDE RECORDS SUMMARY | 2023-10-24 09:06 | XMS_ITS ---
Author Organization [facility] Address [address] [place] [address] Care Team Providers Care Public Health Clinical Nurse Specialist Name Role Phone Unavailable Unavailable Unavailable Surgery Details Not on file Complications Check Surgery Details section. Procedure Estimated Blood Loss Check Surgery Details section. Procedure Findings Check Surgery Details section. Procedure Specimens Taken Check Surgery Details section.
== END 2023-10-24 09:05 | disposition home or self-care (01) ==
LOC: WOUND 09:04
PROVIDERS: PCP Family Medicine; Visit Provider Surgery
DX: E11.621 Type 2 diabetes mellitus with foot ulcer (principal); L97.422 Non-pressure chronic ulcer of left heel and midfoot with fat layer exposed; Z79.4 Long term (current) use of insulin
CPT/HCPCS: 97597

== ENCOUNTER 2023-10-31 08:55 | Outpatient (CLI) | payer MEDICARE, BC, SELFPAY ==
--- OUTSIDE RECORDS SUMMARY | 2023-10-31 09:05 | XMS_ITS | Continuity of Care Document ---
Author Name [facility] Organization [facility] Care Team Providers Care Fitness Consultant Name Role Phone [facility] Unavailable Unavailable Problems Combined list of problems from Department of [facility] and [facility] facilities. It does not include entries that were removed or entered in error. Problem Status Onset Date Problem Type Date of Resolution Comments Source Exposure to potentially hazardous substance ([facility] [id number]) Active 07/20/19 24 Condition Jul 20, 2023 Entered By: MECHELLE DEMPSEY Comment: [facility] Documentation Initiative [facility] CAD - Coronary Artery Disease ([facility] [id number]) Active Condition [place] ([facility]) CHF - Congestive Heart Failure ([facility] [id number]) Active Condition [facility] [place] Diabetes Mellitus Type 2 ([facility] [id number]) Active Condition [facility] [place] HTN - Hypertension ([facility] [id number]) Active Condition [place] ([facility]) Hyperlipidemia ([facility] [id number]) Active Condition [facility] Long-term current use of insulin Active Condition [facility]) Peripheral neuropathy due to type 2 diabetes mellitus Active Condition [place] ([facility]) Diagnosis: ICD-10-CM H90.3 Sensorineural hearing loss, bilateral Active Diagnosis [facility] Diagnosis: ICD-10-CM I50.9 Heart failure, unspecified Active Diagnosis [facility]) Diagnosis: ICD-10-CM E11.9 Type 2 diabetes mellitus without complications Active Diagnosis [facility] Diagnosis: ICD-10-CM R26.89 Other abnormalities of gait and mobility Active Diagnosis [facility] ([facility]) Diagnosis: ICD-10-CM Z00.00 Encntr for general adult medical exam w/o abnormal findings Active Diagnosis [facility] ([facility]) Medications Combined list of outpatient medications from Department of [facility] and [facility] facilities.Medications provided include 1) outpatient medications [...] WOUND CARE ORDERS TOPICA LLThanh ACTIVE 02/16/2024 [id number] KATHY MURPHY 2022 [address] [place]IS [...] TABLET BY MOUTH DAILY ORALLY ACTIVE FELICITY CEHSTER P 2022 [place] [facility] ([facility]) TRIAMCINOLO NE ACETONIDE 0.1% OINT,TOP APPLY SMALL AMOUNT TOPICALL Y THREE TIMES A DAY NEEDED TOPICA LLY ACTIVE RYAN CHESTER 2020 [facility] ([facility]) Immunizations Combined list of available immunizations from the Department of Defense and Veterans Affairs facilities. Immunization Series Date Given Administered By Site Reaction Lot Number CVX Code Drug Community Mental Health Social Worker Status Comments Source INFLUENZA, HIGH-DOSE, QUADRIVALENT [address] [facility] COVID-19 (MODERNA), MRNA, LNP-S, BIVALENT, PF, 50 MCG/0.5 ML OR 25MCG/0.25 ML DOSE [address] [facility] COVID-19 (PFIZER), MRNA, LNP-S, PF, 30 MCG/0.3 ML DOSE 3 2020 208 complet ed [facility] INFLUENZA, UNSPECIFIED FORMULATION 2020 88 complet ed [facility] TDAP 2020 115 complet ed [employer], [id number] , exp-2022 and given VIS dated 12/17/2020 [place] [facility] ([facility]) ZOSTER RECOMBINANT 2 2020 187 complet ed [facility] [facility] ([facility]) ZOSTER RECOMBINANT 1 2020 187 complet ed [place] [facility] ([facility]) COVID-19 (PFIZER), MRNA, LNP-S, PF, 30 MCG/0.3 ML DOSE [address] [facility] COVID-19 (PFIZER), MRNA, LNP-S, PF, 30 MCG/0.3 ML DOSE [address] [facility] INFLUENZA, UNSPECIFIED FORMULATION 2019 88 complet ed [facility] PNEUMOCOCCAL CONJUGATE PCV 13 2014 133 complet ed [facility] PNEUMOCOCCAL POLYSACCHARID E PPV23 2010 33 complet ed [facility] PNEUMOCOCCAL POLYSACCHARID E PPV23 2005 33 complet ed [facility] Results Combined list of recent [...] Jan 23, 2023 02:00 PM Reporting Lab: [facility] [address] Performing Lab: [facility] [address] [place] ([facility]) BASIC METABOLIC PANEL+MG UREA NITROGEN [MASS/VOLUM E] IN SERUM OR PLASMA 35 8 - 26 01/23 H Specimen Type: PLASMA No comment entered. Ordering Provider: AILIN CHESTER Report Released Date/Time: Jan 23, 2023 02:00 PM Reporting Lab: [facility] [address] Performing Lab: [facility] [address] [place] ([facility]) BASIC METABOLIC PANEL+MG GLUCOSE [MASS/VOLUM E] IN SERUM OR PLASMA 239 70 - 100 01/23 H Specimen Type: PLASMA No comment entered. Ordering Provider: AILIN CHESTER Report Released Date/Time: Jan 23, 2023 02:00 PM Reporting Lab: [facility] [address] Performing Lab: [facility] [address] [place] ([facility]) BASIC METABOLIC PANEL+MG SODIUM [MOLES/VOLU ME] IN SERUM OR PLASMA 140 136 - 145 01/23 Specimen Type: PLASMA No comment entered. Ordering Provider: AILIN CHESTER Report Released Date/Time: Jan 23, 2023 02:00 PM Reporting Lab: [address] Performing Lab: [address] [place] [address] ([facility]) BASIC METABOLIC PANEL+MG POTASSIUM [MOLES/VOLU ME] IN SERUM OR PLASMA 5.1 3.5 - 5.1 01/23 Specimen Type: PLASMA No comment entered. Ordering Provider: AILIN CHESTER Report Released Date/Time: Jan 23, 2023 02:00 PM Reporting Lab: [address] Performing Lab: [address] ([facility]) BASIC METABOLIC PANEL+MG CHLORIDE [MOLES/VOLU ME] IN SERUM OR PLASMA 109 98 - 107 01/23 H Specimen Type: PLASMA No comment entered. Ordering Provider: AILIN CHESTER Report Released Date/Time: Jan 23, 2023 02:00 PM Reporting Lab: [facility] [address] Performing Lab: [facility] [address] [place] ([facility]) BASIC METABOLIC PANEL+MG CARBON DIOXIDE, TOTAL [MOLES/VOLU ME] IN SERUM OR PLASMA 21 22 - 29 01/23 L Specimen Type: PLASMA No comment entered. Ordering Provider: AILIN CHESTER Report Released Date/Time: Jan 23, 2023 02:00 PM Reporting Lab: [facility] [address] Performing Lab: [facility] [address] [place] ([facility]) BASIC METABOLIC PANEL+MG CALCIUM [MASS/VOLUM E] IN SERUM OR PLASMA 9.4 8.4 - 10.2 01/23 Specimen Type: PLASMA No comment entered. Ordering Provider: AILIN CHESTER Report Released Date/Time: Jan 23, 2023 02:00 PM Reporting Lab: [facility] [address] Performing Lab: [facility] [address] [place] ([facility]) BASIC METABOLIC PANEL+MG MAGNESIUM [MASS/VOLUM E] IN SERUM OR PLASMA 1.7 1.6 - 2.6 01/23 Specimen Type: PLASMA No comment entered. Ordering Provider: AILIN CHESTER Report Released Date/Time: Jan 23, 2023 02:00 PM Reporting Lab: [facility] [address] Performing Lab: [facility] [address] [place] ([facility]) BASIC METABOLIC PANEL+MG ANION GAP IN SERUM OR PLASMA 10 5 - 15 01/23 Specimen Type: PLASMA No comment entered. Ordering Provider: AILIN CHESTER Report Released Date/Time: Jan 23, 2023 02:00 PM Reporting Lab: [facility] [address] Performing Lab: [facility] [address] [place] ([facility]) BASIC METABOLIC PANEL+MG GLOMERULAR FILTRATION RATE/1.73 SQ M.PREDICTED [VOLUME RATE/AREA] IN SERUM, PLASMA OR BLOOD BY CREATININE- BASED FORMULA (CKD-EPI 2020) 61 60 01/23 Specimen Type: PLASMA No comment entered. Ordering Provider: AILIN CHESTER Report Released Date/Time: Jan 23, 2023 02:00 PM Reporting Lab: [facility] [address] Performing Lab: [facility] [address] [place] ([facility]) BNP NATRIURETIC PEPTIDE B [MASS/VOLUM E] IN SERUM OR PLASMA 1549 <99 - 99 01/23 H Specimen Type: PLASMA No comment entered. Ordering Provider: AILIN CHESTER Report Released Date/Time: Jan 23, 2023 02:00 PM Reporting Lab: [facility] [address] Performing Lab: [facility] [address] [place] ([facility]) MICROALBU MIN/CREAT ININE RATIO URINE CREATININE [MASS/VOLUM E] IN URINE 132.8 58.0 - 161.0 11/23 Specimen Type: URINE No comment entered. Ordering Provider: AILIN CHESTER Report Released Date/Time: Nov 23, 2022 11:58 AM Reporting Lab: [facility] [address] Performing Lab: [facility] [address] [place] ([facility]) MICROALBU MIN/CREAT ININE RATIO URINE MICROALBUMI N/CREATININ E [MASS RATIO] IN URINE 28.0 11/23 Specimen Type: URINE No comment entered. Ordering Provider: AILIN CHESTER Report Released Date/Time: Nov 23, 2022 11:58 AM Reporting Lab: [facility] [address] Performing Lab: [facility] [address] [place] ([facility]) MICROALBU MIN/CREAT ININE RATIO URINE MICROALBUMI N [MASS/VOLUM E] IN URINE 37.2 11/23 H Specimen Type: URINE No comment entered. Ordering Provider: AILIN CHESTER Report Released Date/Time: Nov 23, 2022 11:58 AM Reporting Lab: [facility] [address] Performing Lab: [facility] [address] [place] ([facility]) CBC LEUKOCYTES [#/VOLUME] IN BLOOD BY AUTOMATED COUNT 10.80 4.0 - 11.0 11/23 Specimen Type: BLOOD No comment entered. Ordering Provider: AILIN CHESTER Report Released Date/Time: Nov 23, 2022 11:58 AM Reporting Lab: [facility] [address] Performing Lab: [facility] [address] [place] ([facility]) CBC ERYTHROCYTE S [#/VOLUME] IN BLOOD BY AUTOMATED COUNT 3.87 4.6 - 6.2 11/23 L Specimen Type: BLOOD No comment entered. Ordering Provider: AILIN CHESTER Report Released Date/Time: Nov 23, 2022 11:58 AM Reporting Lab: [facility] [address] Performing Lab: [facility] [address] [place] ([facility]) CBC HEMOGLOBIN [MASS/VOLUM E] IN BLOOD 12.1 13.5 - 17.9 11/23 L Specimen Type: BLOOD No comment entered. Ordering Provider: AILIN CHESTER Report Released Date/Time: Nov 23, 2022 11:58 AM Reporting Lab: [facility] [address] Performing Lab: [facility] [address] [place] ([facility]) CBC HEMATOCRIT [VOLUME FRACTION] OF BLOOD BY AUTOMATED COUNT 37.5 41 - 54 11/23 L Specimen Type: BLOOD No comment entered. Ordering Provider: AILIN CHESTER Report Released Date/Time: Nov 23, 2022 11:58 AM Reporting Lab: [place] [id number] Performing Lab: [address] [place] [address] ([facility]) CBC MCV [ENTITIC VOLUME] BY AUTOMATED COUNT 96.9 80 - 100 11/23 Specimen Type: BLOOD No comment entered. Ordering Provider: AILIN CHESTER Report Released Date/Time: Nov 23, 2022 11:58 AM Reporting Lab: [address] Performing Lab: [place] [phone] [place] [address] ([facility]) CBC MCH [ENTITIC MASS] BY AUTOMATED COUNT 31.3 27 - 33 11/23 Specimen Type: BLOOD No comment entered. Ordering Provider: AILIN CHESTER Report Released Date/Time: Nov 23, 2022 11:58 AM Reporting Lab: [facility] [address] Performing Lab: [facility] [address] [place] ([facility]) CBC MCHC [MASS/VOLUM E] BY AUTOMATED COUNT 32.3 32.0 - 37.5 11/23 Specimen Type: BLOOD No comment entered. Ordering Provider: AILIN CHESTER Report Released Date/Time: Nov 23, 2022 11:58 AM Reporting Lab: [facility] [address] Performing Lab: [place] [phone] [place] ([facility]) CBC PLATELETS [#/VOLUME] IN BLOOD BY AUTOMATED COUNT 293 150 - 400 11/23 Specimen Type: BLOOD No comment entered. Ordering Provider: AILIN CHESTER Report Released Date/Time: Nov 23, 2022 11:58 AM Reporting Lab: [facility] [address] Performing Lab: [place] [phone] [place] ([facility]) CBC PLATELET MEAN VOLUME [ENTITIC VOLUME] IN BLOOD BY AUTOMATED COUNT 10.3 7.4 - 10.4 11/23 Specimen Type: BLOOD No comment entered. Ordering Provider: AILIN CHESTER Report Released Date/Time: Nov 23, 2022 11:58 AM Reporting Lab: [place] [phone] Performing Lab: [place] [phone] [place] ([facility]) CBC ERYTHROCYTE DISTRIBUTIO N WIDTH [RATIO] BY AUTOMATED COUNT 13.2 11.5 - 14.5 11/23 Specimen Type: BLOOD No comment entered. Ordering Provider: AILIN CHESTER Report Released Date/Time: Nov 23, 2022 11:58 AM Reporting Lab: [facility] [address] Performing Lab: [address] [place] [address] ([facility]) COMPREHEN SIVE METABOLIC PANEL+MG CREATININE [MASS/VOLUM E] IN SERUM OR PLASMA 1.2 0.7 - 1.2 11/23 Specimen Type: PLASMA No comment entered. Ordering Provider: AILIN CHESTER Report Released Date/Time: Nov 23, 2022 11:58 AM Reporting Lab: [facility] [address] Performing Lab: [facility] [address] [place] ([facility]) COMPREHEN SIVE METABOLIC PANEL+MG UREA NITROGEN [MASS/VOLUM E] IN SERUM OR PLASMA 34 8 - 26 11/23 H Specimen Type: PLASMA No comment entered. Ordering Provider: AILIN CHESTER Report Released Date/Time: Nov 23, 2022 11:58 AM Reporting Lab: [facility] [address] Performing Lab: [facility] [address] [place] ([facility]) COMPREHEN SIVE METABOLIC PANEL+MG GLUCOSE [MASS/VOLUM E] IN SERUM OR PLASMA 54 70 - 100 11/23 L Specimen Type: PLASMA No comment entered. Ordering Provider: AILIN CHESTER Report Released Date/Time: Nov 23, 2022 11:58 AM Reporting Lab: [facility] [address] Performing Lab: [facility] [address] [place] ([facility]) COMPREHEN SIVE METABOLIC PANEL+MG SODIUM [MOLES/VOLU ME] IN SERUM OR PLASMA 143 136 - 145 11/23 Specimen Type: PLASMA No comment entered. Ordering Provider: AILIN CHESTER Report Released Date/Time: Nov 23, 2022 11:58 AM Reporting Lab: [address] Performing Lab: [address] ([facility]) COMPREHEN SIVE METABOLIC PANEL+MG POTASSIUM [MOLES/VOLU ME] IN SERUM OR PLASMA 4.4 3.5 - 5.1 11/23 Specimen Type: PLASMA No comment entered. Ordering Provider: AILIN CHESTER Report Released Date/Time: Nov 23, 2022 11:58 AM Reporting Lab: [place] [address] Performing Lab: [address] ([facility]) COMPREHEN SIVE METABOLIC PANEL+MG CHLORIDE [MOLES/VOLU ME] IN SERUM OR PLASMA 107 98 - 107 11/23 Specimen Type: PLASMA No comment entered. Ordering Provider: AILIN CEHSTER Report Released Date/Time: Nov 23, 2022 11:58 AM Reporting Lab: [place] [address] Performing Lab: [address] ([facility]) COMPREHEN SIVE METABOLIC PANEL+MG CARBON DIOXIDE, TOTAL [MOLES/VOLU ME] IN SERUM OR PLASMA 23 22 - 29 11/23 Specimen Type: PLASMA No comment entered. Ordering Provider: AILIN CHESTER Report Released Date/Time: Nov 23, 2022 11:58 AM Reporting Lab: [place] [id number] Performing Lab: [address] ([facility]) COMPREHEN SIVE METABOLIC PANEL+MG CALCIUM [MASS/VOLUM E] IN SERUM OR PLASMA 9.7 8.4 - 10.2 11/23 Specimen Type: PLASMA No comment entered. Ordering Provider: AILIN CHESTER Report Released Date/Time: Nov 23, 2022 11:58 AM Reporting Lab: [place] [address] Performing Lab: [place] [address] [place] ([facility]) COMPREHEN SIVE METABOLIC PANEL+MG PROTEIN [MASS/VOLUM E] IN SERUM OR PLASMA 7.2 6.0 - 8.3 11/23 Specimen Type: PLASMA No comment entered. Ordering Provider: AILIN CHESTER Report Released Date/Time: Nov 23, 2022 11:58 AM Reporting Lab: [place] [phone] Performing Lab: [address] [place] [address] ([facility]) COMPREHEN SIVE METABOLIC PANEL+MG ALBUMIN [MASS/VOLUM E] IN SERUM OR PLASMA 4.1 3.5 - 5.2 11/23 Specimen Type: PLASMA No comment entered. Ordering Provider: AILIN CHESTER Report Released Date/Time: Nov 23, 2022 11:58 AM Reporting Lab: [place] [address] Performing Lab: [address] ([facility]) COMPREHEN SIVE METABOLIC PANEL+MG BILIRUBIN.T OTAL [MASS/VOLUM E] IN SERUM OR PLASMA 0.5 0.2 - 1.2 11/23 Specimen Type: PLASMA No comment entered. Ordering Provider: AILIN CHESTER Report Released Date/Time: Nov 23, 2022 11:58 AM Reporting Lab: [facility] [address] Performing Lab: [place] [phone] [place] ([facility]) COMPREHEN SIVE METABOLIC PANEL+MG MAGNESIUM [MASS/VOLUM E] IN SERUM OR PLASMA 1.4 1.6 - 2.6 11/23 L Specimen Type: PLASMA No comment entered. Ordering Provider: AILIN CHESTER Report Released Date/Time: Nov 23, 2022 11:58 AM Reporting Lab: [facility] [address] Performing Lab: [facility] [phone] [place] [address] ([facility]) COMPREHEN SIVE METABOLIC PANEL+MG ANION GAP IN SERUM OR PLASMA 13 5 - 15 11/23 Specimen Type: PLASMA No comment entered. Ordering Provider: AILIN CHESTER Report Released Date/Time: Nov 23, 2022 11:58 AM Reporting Lab: [facility] [address] Performing Lab: [facility] [address] [place] ([facility]) COMPREHEN SIVE METABOLIC PANEL+MG ALKALINE PHOSPHATASE [ENZYMATIC ACTIVITY/VO LUME] IN SERUM OR PLASMA 87 40 - 150 11/23 Specimen Type: PLASMA No comment entered. Ordering Provider: AILIN CHESTER Report Released Date/Time: Nov 23, 2022 11:58 AM Reporting Lab: [facility] [address] Performing Lab: [facility] [address] [place] ([facility]) COMPREHEN SIVE METABOLIC PANEL+MG ALANINE AMINOTRANSF ERASE [ENZYMATIC ACTIVITY/VO LUME] IN SERUM OR PLASMA 28 11/23 Specimen Type: PLASMA No comment entered. Ordering Provider: AILIN CHESTER Report Released Date/Time: Nov 23, 2022 11:58 AM Reporting Lab: [facility] [address] Performing Lab: [facility] [address] [place] ([facility]) COMPREHEN SIVE METABOLIC PANEL+MG ASPARTATE AMINOTRANSF ERASE [ENZYMATIC ACTIVITY/VO LUME] IN SERUM OR PLASMA 33 11/23 Specimen Type: PLASMA No comment entered. Ordering Provider: AILIN CHESTER Report Released Date/Time: Nov 23, 2022 11:58 AM Reporting Lab: [facility] [address] Performing Lab: [facility] [address] [place] ([facility]) COMPREHEN SIVE METABOLIC PANEL+MG GLOMERULAR FILTRATION RATE/1.73 SQ M.PREDICTED [VOLUME RATE/AREA] IN SERUM, PLASMA OR BLOOD BY CREATININE- BASED FORMULA (CKD-EPI 2020) 61 11/23 Specimen Type: PLASMA No comment entered. Ordering Provider: AILIN CHESTER Report Released Date/Time: Nov 23, 2022 11:58 AM Reporting Lab: [facility] [address] Performing Lab: [facility] [address] [place] ([facility]) HEMOGLOBI N A1C HEMOGLOBIN A1C/HEMOGLO [...] 23, 2022 11:58 AM Reporting Lab: [address] Performing Lab: [address] [place] [address] ([facility]) LIPID PANEL,NON -FASTING CHOLESTEROL [MASS/VOLUM E] IN SERUM OR PLASMA 130 11/23 Specimen Type: PLASMA No comment entered. Ordering Provider: AILIN CHESTER Report Released Date/Time: Nov 23, 2022 11:58 AM Reporting Lab: [place] [address] Performing Lab: [address] [place] [address] ([facility]) LIPID PANEL,NON -FASTING CHOLESTEROL IN HDL [MASS/VOLUM E] IN SERUM OR PLASMA 39 11/23 L Specimen Type: PLASMA No comment entered. Ordering Provider: AILIN CHESTER Report Released Date/Time: Nov 23, 2022 11:58 AM Reporting Lab: [facility] [address] Performing Lab: [address] [place] [address] ([facility]) LIPID PANEL,NON -FASTING CHOLESTEROL IN LDL [MASS/VOLUM E] IN SERUM OR PLASMA BY CALCULATION 73 11/23 Specimen Type: PLASMA No comment entered. Ordering Provider: AILIN CHESTER Report Released Date/Time: Nov 23, 2022 11:58 AM Reporting Lab: [facility] [address] Performing Lab: [address] [place] [address] ([facility]) LIPID PANEL,NON -FASTING CHOLESTEROL IN VLDL [MASS/VOLUM E] IN SERUM OR PLASMA BY CALCULATION 18 11/23 Specimen Type: PLASMA No comment entered. Ordering Provider: AILIN CHESTER Report Released Date/Time: Nov 23, 2022 11:58 AM Reporting Lab: [facility] [address] Performing Lab: [facility] [address] [place] ([facility]) LIPID PANEL,NON -FASTING CHOLESTEROL NON HDL [MASS/VOLUM E] IN SERUM OR PLASMA 91 11/23 Specimen Type: PLASMA No comment entered. Ordering Provider: AILIN CHESTER Report Released Date/Time: Nov 23, 2022 11:58 AM Reporting Lab: [facility] [address] Performing Lab: [facility] [address] [place] ([facility]) LIPID PANEL,NON -FASTING TRIGLYCERID E [MASS/VOLUM E] IN SERUM OR PLASMA 92 11/23 Specimen Type: PLASMA No comment entered. Ordering Provider: AILIN CHESTER Report Released Date/Time: Nov 23, 2022 11:58 AM Reporting Lab: [facility] [address] Performing Lab: [facility] [address] [place] ([facility]) TSH W/REFLEX TO FREE T4 THYROTROPIN [UNITS/VOLU ME] IN SERUM OR PLASMA 4.59 0.35 - 4.94 11/23 Specimen Type: PLASMA No comment entered. Ordering Provider: AILIN CHESTER Report Released Date/Time: Nov 23, 2022 11:58 AM Reporting Lab: [facility] [address] Performing Lab: [facility] [address] [place] ([facility]) Vital Signs Combined list of [...] DC Date Status Disposition Source [place] [facility] Outpatient Encounter [id number] 03/29 QAS[facility] SCHULZ [facility] [place] [facility] Outpatient Encounter [id number] 04/05 QASIM SCHULZ [facility] [place] [facility] Outpatient Encounter [id number] 07/31 [place] [facility] [place] [facility] Outpatient Encounter [id number] 08/21 [place] [facility] [place] [facility] Outpatient Encounter [id number] 09/20 [place] [facility] Outpatient Encounter [id number] [id number] 11/11 [facility] [place] [facility] Outpatient Encounter [id number] ZARI POWER 11/16 [place] [facility] [place] [facility] Outpatient Encounter [id number] 11/21 [place] [facility] O/P EST MOD 30-39 MIN [id number] Diagnos is: ICD-10- CM Z00.00 Encntr for general adult medical exam w/o abnorma l finding s
CANDELARIO CHESTER DA K 11/23 [place] ([facility]) [place] ([facility]) GAIT TRAINING THERAPY [id number] Diagnos is: ICD-10- CM R26.89 Other abnorma lities of gait and mobilit y
OMAYRA JAMESON NTER V 11/23 [place] ([facility]) [place] [facility] Outpatient Encounter [id number] SA JAMARI JAMESON R 12/11 [place] [facility] [place] [facility] Outpatient Encounter [id number] 12/25 [place] [facility] [place] [facility] Outpatient Encounter [id number] SA JAMARI JAMESON R 12/28 [place] [facility] [place] [facility] Outpatient Encounter [id number] 01/05 [place] [facility] [place] [facility] Outpatient Encounter [id number] 01/11 [place] [facility] [place] [facility] Outpatient Encounter [id number] 01/16 [place] [facility] OFFICE O/P EST HI 40-54 MIN [id number] Diagnos is: ICD-10- CM I50.9 Heart failure , unspeci fied
CANDELARIO CHESTER 01/23 [facility] ([facility] [place] [facility] Outpatient Encounter [id number] Marcus POTTS I 01/24 [place] [facility] [place] [facility] Outpatient Encounter [id number] Danica TORRE 02/05 [place] [facility] [place] [facility] Outpatient Encounter [id number] 02/09 [place] [facility] [place] [facility] Outpatient Encounter [id number] Danica TORRE 02/09 [place] [facility] [place] [facility] Outpatient Encounter [id number] 02/14 [place] [facility] [place] [facility] Outpatient Encounter [id number] 02/15 [place] [facility] [place] [facility] Outpatient Encounter [id number] 02/19 [place] [facility] [place] [facility] Outpatient Encounter [id number] 02/20 [place] [facility] [place] [facility] Outpatient Encounter [id number] 02/20 [place] [facility] [place] [facility] Outpatient Encounter [id number] 02/20 [place] [facility] [place] [facility] Outpatient Encounter [id number] 02/20 [place] [facility] [place] [facility] Outpatient Encounter [id number] 02/21 [place] [facility] [place] [facility] QNHP OL DIG ASSMT&MGMT 5-10 [id number] Diagnos is: ICD-10- CM E11.9 Type 2 diabete s mellitu s without complic ations< br/> HARDER,SIVA LY 02/22 [place] [facility] PRO PHONE CALL 11-20 MIN [id number] Diagnos is: ICD-10- CM I50.9 Heart failure , unspeci fied
HENRICH,BR ANDON M 02/23 [facility] ([facility] [place] [facility] Outpatient Encounter [id number] 02/26 [place] [facility] [place] [facility] Outpatient Encounter [id number] 03/01 [place] [facility] [place] [facility] Outpatient Encounter [id number] SA TRINO RA R 03/09 [place] [facility] [place] [facility] Outpatient Encounter [id number] 03/14 [place] [facility] [place] [facility] Outpatient Encounter [id number] SA TRINO RA R 04/12 [place] [facility] [place] [facility] Outpatient Encounter [id number] SA TRINO RA R 04/16 [place] [facility] [place] [facility] Outpatient Encounter [id number] TRINO RA R 05/01 [place] [facility] [place] [facility] Outpatient Encounter [id number] 07/11 [place] [facility] [place] [facility] Outpatient Encounter [id number] [place] [facility] [place] [facility] Outpatient Encounter [id number] 07/12 [facility] [place] [facility] HC PRO PHONE CALL 5-10 MIN [id number] Diagnos is: ICD-10- CM 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
LICOERISVIVRADHA [facility] HE[facility] AID REPAIR/MOD IFYING [id number] Diagnos is: ICD-10- CM 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
CARY CORCORAN C 08/09 [facility] T [facility] HEARING AID FITTING/CH ECKING [id number] Diagnos is: ICD-10- CM 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
Sy MAKI 09/17 [facility] Social History Combined list of available smoking, tobacco, and other social history from [facility] of Defense and [facility] facilities. Social History Type Response Date Comment [facility] e Tobacco smoking status [facility]IS VA-TOBACCO FORMER USER 11/23/2022 [place] ([facility]) History of tobacco use OK-TOBACCO QUIT 1 5 YRS OR MORE 11/23/2022 [place] ([facility]) History of tobacco use VA-TOBACCO FORMER USER 11/29/2021 [place] ([facility]) History of tobacco use VA-TOBACCO FORMER USER 10/21/2020 [place] ([facility])
--- OUTSIDE RECORDS SUMMARY | 2023-10-31 09:06 | XMS_ITS | Clinical Summary ---
Author Organization [facility] Address [address] [place] [address] Care Team Providers Care Supervisory Cbp Officer Name Role Phone Elsewhere, Pcp Primary Care Provider Unavailabl e Source Comments Patient records contain information from all sites at [facility]. For routine questions regarding patient records, call [phone] during business hours, M-F 8:00 AM - 5:00 PM Central Time. Record requests for emergency care only can be directed to [phone] at any time.[facility] Allergies No known active allergies Medications Medication [...] Heel: Area continues to improve. Wound measures [id number]. Edges well defined, attached and 100% re-epithelialized [...] will follow up with his PCP in [facility] (Current) Anticoagulant Treatment 08/2022 Overview: On apixaban [...] standard wheelchair Mr. Woods was admitted to [facility] April 10 following BK right [...] T4 was 0.92 in April 2023. resident assistant confirmed levothyroxine is given every morning (6am) without other medications. Therefore, we will increase levothyroxine 50mcg to 75mcg and rechecked TSH in 6 weeks. Nursing instructed to continue monitoring for symptoms of hypothyroidism and contact Stem provider if any concerns. Amputation Toe Status [...] and palpitation. Atherosclerotic Heart Diseas e Of [place] Coronary Artery Without Angina Pectoris 01/15/2023 Overview: [...] 6 Anticoagulation: Apixaban Last Assessment & Plan: technician terminal and repeater anticoagulation on apixaban Director Of Rehabilitation Use Of Insulin Active 12/09/2022 Overview: On [...] control but to prevent hypoglycemia. Atherosclerosis Of [place] Ar teries Of Other Extremities With Ulceration [...] for COVID-19 12/27/2022. Treated with remdesivir at [facility]. Anemia 01/16/2023 04/12/2023 Overview: Lab [...] 05/24/2023 Overview: Onychomycosis of toenails; Original Code: [id number] Original Codesystem: SNOMED CT Classification: Medical Confirmation [...] Pressure 107/66 06/18/2023 1:10 PM PUBLIC WORKS TECHNICIAN Pulse 78 06/18/2023 1:10 PM PUBLIC WORKS TECHNICIAN Temperature 36.6 ??C (97.8 ??F) 06/18/2023 1:10 PM CS T Respiratory Rate 16 06/18/2023 1:10 PM PUBLIC WORKS TECHNICIAN Oxygen Saturation 95% 06/18/2023 1:10 PM PUBLIC WORKS TECHNICIAN Inhaled Oxygen Concentration - - Weight 75.8 kg (167 lb) 06/18/2023 1:10 PM PUBLIC WORKS TECHNICIAN Height 175.3 cm (5' 9) 04/12/2023 3:21 PM PUBLIC WORKS TECHNICIAN Body Mass Index 24.66 04/12/2023 3:21 PM PUBLIC WORKS TECHNICIAN Plan of Treatment Health Maintenance Due [...] Advance Directives For more information, please contact: [phone] * DNR/DNI (Latest Code Status on File) Date Activated Date Inactivated Comments 05/24/2023 6:14 PM * DNR/DNI Date Activated Date Inactivated Comments 04/12/2023 4:11 PM 04/16/2023 7:15 AM Care Teams Supervisory Cbp Officer Relationship Specialty Start Date End Date Elsewhere, Pcp PCP - General Internal Medicine 08/28/23
--- OUTSIDE RECORDS SUMMARY | 2023-10-31 09:06 | XMS_ITS | Clinical Summary ---
Author Organization [facility] Address [place], [place] [address] Care Team Providers Care Transplant Nurse Practitioner Name Role Phone VotelMelquiades MD Primary Care Provider + Nurses, Advanced Heart Failure Unavailable + Shade Manuel MD Unavailable [phone] Allergies No known active allergies Medications Medication Sig Dispensed Refills Start Date End Date Status blood-glucose meterIndications: Type 2 diabetes mellitus with complication (HC) Ascensia Glucometer, Dispense meter, test strips, lancets covered by pt ins. Test 3 times daily 1 Device 07/09/2020 Active Insulin Eunice, Disposable, (Novofine 32) 32 gauge x 1/4Indications:2 50.00 Diabetes Type 2, insulin dependent For administering insulin at home 4 times daily or as needed 400 Each 3 06/23/2021 Active ketoconazole 2% topical (NIZORAL) cream Apply topically to affected area(s) once daily if needed. APPLY TO AFFECTED AREA BETWEEN EYEBROWS 1-2X DAILY FOR 2 WEEKS AT A TIME NEEDED FOR FLARES 02/22/2021 Active nitroglycerin (NITROSTAT) 0.4 mg sublingual tabletIndications :Coronary artery disease involving [place] heart without angina pectoris, unspecified vessel or [...] 01/08/2023 Active triamcinolone (ARISTOCORT; KENALOG) 0.1 % creamIndications: Rash Apply topically to affected area(s) two times daily. APPLY to affected areas 2X DAILY FOR 2 WEEKS AT A TIME NEEDED FOR FLARES 60 g 4 01/08/2023 Active atorvastatin (LIPITOR) 40 mg tabletIndications :Hyperlipidemia LDL goal <70 Take one tab daily at bedtime. 90 Tablet 3 02/06/2023 Active pantoprazole (PROTONIX) 40 mg delayed-release tabletIndications :Gastroesophageal reflux disease, unspecified whether esophagitis present Take 1 Tablet (40 mg) by mouth once daily. 90 Tablet 3 02/06/2023 Active Eliquis 5 mg tabletIndications :Paroxysmal atrial fibrillation (HC) TAKE 1 TABLET(5 MG) BY MOUTH TWICE DAILY 180 Tablet 1 03/06/2023 Active clopidogreL (PLAVIX) 75 mg tabletIndications :NSTEMI (non-ST elevated myocardial infarction) (HC) TAKE 1 TABLET(75 MG) BY MOUTH EVERY MORNING 90 Tablet 1 03/06/2023 Active metoprolol succinate (Toprol XL) 25 mg Sustained-Release tabletIndications :HFrEF (heart failure with reduced ejection fraction) (HC) Take 0.5 Tablets (12.5 mg) by mouth once daily in the evening. 0 04/09/2023 Active acetaminophen (TYLENOL) 325 mg tabletIndications :Pain Take 2 Tablets (650 mg) by mouth every 4 hours if needed for Pain. Max acetaminophen dose: 4000mg in 24 hrs. 0 04/09/2023 Active polyethylene glycol (MIRALAX; GLYCOLAX) 17 g per packet packetIndications :Constipation, unspecified constipation type Mix 17 g in liquid then take by mouth once daily. 0 04/10/2023 Active sennosides 17.2 mg tabIndications:Co nstipation, unspecified [...] Take 20 mg by mouth. 06/18/2023 Active levothyroxine (Synthroid) 75 mcg tabletIndications :Hypothyroidism (acquired) Take 1 Tablet (75 mcg) by mouth before breakfast. 90 Tablet 3 07/17/2023 Active blood sugar diagnostic (Contour Next Test Strips) stripIndications: Type 2 diabetes mellitus with complication (HC) Dispense item covered by pt ins. E10.9 IDDM type I - Test 4 times/day. Reason: complicated diabetes. 400 Each 3 07/17/2023 Active Farxiga 10 mg tabletIndications :HFrEF (heart failure with reduced ejection fraction) (HC) Take 1 Tablet (10 mg) by mouth once daily. 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 Increase by 2 units every 3 days until fasting blood sugars are in the 150s. Maximum of 25 units daily. 15 mL 3 10/04/2023 Active insulin aspart niacinamide (Fiasp FlexTouch U-100 [...] to 60 units daily 45 mL 5 10/04/2023 Active clotrimazole (LOTRIMIN) 1 % creamIndications: Balanitis Apply topically to affected area(s) two times daily. Use for 3 weeks. 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 Plus correction scale. 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 Change each sensor every 10 days 9 Each 10/30/2023 Active insulin aspart, U-100, (NOVOLOG FLEXPEN) 100 [...] 60 units daily. 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) Change every 90 days 1 Each 3 10/04/2023 4 Discontinu ed(*Availa bility/For mulary change/Cos t of medication ) Active Problems Problem Noted Date Diagnosed Date [...] associated with type 2 diabetes mellitus 12/09/2022 alf current use of insulin 12/09/2022 NSTEMI (non-ST elevated myocardial infarction) 0 12/09/2022 Atherosclerosis of [place] ar gu[place] of extremity with ulceration 11/25/2019 HTN (hypertension) 10/28/2015 Hyperlipidemia LDL goal <70 10/28/2015 Adenomatous colon polyp 04/13/2015 Overview: Colonoscopy 04/2015 polyps repeat in 5 years Colonoscopy 03/2020 polyps, repeat in 5 years Background diabetic retinopathy(362.01) 07/10/19 08 Unspecified hearing loss 07/10/2007 Coronary atherosclerosis of unspecified type of vessel, [place] or graft Overview: 4 vessel CABG 2001 Lexiscan only for cardiac evaluation - no treadmill Other ill-defined and unknow n causes of morbidity and mortality Impotence of organic origin Resolved Problems Problem Noted Date Diagnosed Date Resolved Date Type 2 diabetes mellitus with complication 11/16/2017 12/22/2022 Heart disease, unspecified 0 07/10/2007 Encounters Date Type Department Care Team Description 10/30/2023 10:00 AM CDT Patient Outreach [address] [phone] Priyanka Hummel professor of biblical studies (Insulin management/educati on) 10/29/2023 12:25 PM CDT - 10/29/2023 11:59 PM CDT Hospital Encounter [facility] ? [facility] [address] [place] [address] VoteMelquiades lewis MD Oswald, Rebecca L, PT 10/29/2023 Travel 10/25/2023 1:15 PM CDT - 10/25/2023 11:59 PM CDT Hospital Encounter [facility] ? [facility] [address] [place] [address] Votel, MD Edgar Cleary Rebecca L, PT 10/25/2023 Travel 10/23/[address] [facility] [address] [place] [address] VoteMelquiades lewis MD 10/22/2023 1:21 PM CDT - 10/22/2023 11:59 PM CDT Hospital Encounter [facility] [address] [place] [address] Votedebbie, MD Edgar Cleary Rebecca L, PT 10/22/2023 Travel 10/18/2023 1:45 PM CDT - 10/18/2023 11:59 PM CDT Hospital Encounter [facility] ? [facility] [address] [place] [address] Votedebbie, MD Deloirs Cleary Kayla, PT 10/18/2023 Travel 10/17/[address] [facility] [address] [place] [address] VotelMelquiades MD Outside Order (regarding frequency of home health visits) 10/15/2023 12:55 PM CDT - 10/15/2023 11:59 PM CDT Hospital Encounter [facility] [address] [place] [address] Gunnartedebbie, MD Lesly Cleary Isabelle, PT 10/15/2023 Travel 10/11/2023 12:51 PM CDT - 10/11/2023 11:59 PM CDT Hospital Encounter [facility] ? [facility] [address] [place] [address] Melquiades Man MD Tonsfeldt, Isabelle, PT 10/11/2023 Travel 10/11/[address] [facility] [address] [place] [address] Melquiades Man MD 10/09/[address] [address] [place] [address] Melquiades Man MD Form 10/05/2023 Transcribe Orders [address] [phone] Isatu Hanley MD 10/04/2023 1:42 PM CDT - 10/04/2023 11:59 PM CDT [facility] ? [facility] [address] [place] [address] Melquiades Man MD Tonsfeldt, Isabelle, PT 10/04/2023 9:35 AM CDT Office Visit [facility] [address] [place] [address] Rachel Sauceda, DO Diabetes 10/04/[address] [address] [place] [address] Rachel Sauceda, DO Medication Management 10/04/2023 Travel 10/03/2023 Refill [facility] [address] [place] [phone] Shade Manuel MD Refill Request ([facility]) 10/01/2023 12:58 PM CDT - 10/01/2023 11:59 PM CDT Hospital En[facility] ? [facility] [address] [place] [address] Melquiades Man MD Tonsfeldt, Isabelle, PT 10/01/2023 Travel 09/30/2023 Refill [facility] [address] [place] [address] Shade Manuel MD Refill Request (Dapagliflozin Propanediol) 09/27/2023 12:56 PM CDT - 09/27/2023 11:59 PM CDT Hospital Encounter [facility] [address] [place] [address] Melquiades Man MD Tonsfeldt, Isabelle, PT 09/27/2023 Travel 09/24/2023 12:57 PM CDT - 09/24/2023 11:59 PM CDT Hospital Encounter [facility] [address] [place] [address] VoMelquiades sotomayor MD Tonsfeldt, Isabelle, PT 09/24/2023 Travel 09/20/2023 11:45 AM CDT - 09/20/2023 11:59 PM CDT Hospital Encounter [facility] [address] [place] [address] Melquiades Man MD Tonsfeldt, Isabelle, PT 09/20/2023 Travel 09/19/[address] [facility] [address] [place] [address] Melquiades Man MD 09/17/[address] [address] [place] [address] Melquiades Man MD orders (wound care 2 times per week) 09/13/2023 1:00 PM CDT - 09/13/2023 11:59 PM CDT Hospital Encounter [facility] [address] [place] [address] VoteMelquiades lewis MD Tonsfeldt, Isabelle, PT 09/13/2023 Travel 09/10/2023 12:53 PM CDT - 09/10/2023 11:59 PM CDT Hospital Encounter [facility] ? [facility] [address] [place] [address] VoteMelquiades lewis MD Tonsfeldt, Isabelle, PT 09/10/2023 Travel 09/06/2023 9:27 AM CDT - 09/06/2023 11:59 PM CDT [facility] ? [facility] [address] [place] [address] GunnarteMelquiades lewis MD Tonsfeldt, Isabelle, PT 09/06/2023 Travel 08/31/[address] [address] [place] [address] Melquiades Man MD ORDERS 08/23/2023 12:46 PM CDT - 08/23/2023 11:59 PM CDT Hospital Encounter [facility] ? [facility] [address] [place] [address] Melquiades Man MD Tonsfeldt, Isabelle, PT History of leg amputation (HC) 08/23/2023 Travel 08/17/[address] [facility] [address] [place] [address] Melquiades Man MD Home Care ([facility]) 08/08/[address] [address] [place] [address] Melquiades Man MD 08/01/2023 Orders Only [facility] Scanner 1 scan: (1-Ord) [facility], 08/01/2023 07/31/[address] [facility] [address] [place] [address] Votel, Melquiades Gray MD from Last 3 Months Immunizations Name Administration Dates Next Due COVID-19 vaccine (Moderna 100mcg/0.5mL) PF, MDV 03/09/2021 COVID-19 vaccine (Moderna 50 mcg/0.5mL) 12YO+ BIVALENT PF, MDV 03/29/2022 COVID-19 vaccine (Pfizer-Bio NTech 30mcg/0.3mL) PF, MDV 03/09/2021,07/24/2020,07/03/2020 COVID-19 vaccine Comirnaty (Pfizer-BioNTech 30mcg/0.3mL) 12YO+ [id number] Formula PF, SDV, PFS 03/05/2023 Influenza Virus, [...] Brother kidney problems Heart Disease Father 1st [place] at 65 d 77 yo CHF Diabetes Mother Heart Disease Mother d 64 yo [place] Genetic Other There is a posi tive [...] ??C (97.5 ??F) 07/17/2023 2 :09 PM AIRCRAFT PARTS ASSEMBLER Respiratory Rate 24 05/03/2023 7:04 AM AIRCRAFT PARTS ASSEMBLER Oxygen Saturation 99% 10/04/2023 9:2 6 AM CDT Inhaled Oxygen Concentration - - Weight 71.7 kg (158 lb) 10/04/2023 9:26 AM CDT patient reported Height 175.3 cm (5' 9.02) 07/27/2023 1 1:51 AM CDT Body Mass Index 23.32 07/27/2023 11:51 AM CDT Plan of Treatment Upcoming Encounters Date Type Department Care Team (Late st Contact Info) Description 11/01/2023 1:00 PM CDT Appointment [facility] [address] [place] [address] Jasmin Hernández, PT [address] [place] [address] 11/05/2023 1:00 PM CDT Appointment [facility] [address] [place] [address] Jasmin Hernández, PT [address] [place] [address] 11/06/2023 10:25 AM CDT Office [facility] [address] [place] [address] Melquiades Man MD [address] [place] [address] 11/12/2023 1:00 PM CDT Appointment [facility] [address] [place] [address] Jasmin Hernández, PT [address] [place] [address] 11/13/2023 2:00 PM CDT Patient Outreach [address] [phone] Priyanka Hummel, RN [address] [place] [address] 11/20/2023 1:45 PM CDT Appointment [facility] [address] [place] [address] Jasmin Hernández, PT [address] [place] [address] 11/22/2023 1:30 PM CDT [facility] [address] [place] [address] Farheen Puentes, PT [address] [place] [address] 11/26/2023 1:15 PM CDT [facility]ment [facility] [address] [place] [address] Jasmin Hernández, PT [address] [place] [address] 11/29/2023 1:00 PM CDT [facility] [address] [place] [address] Farheen Puentes, PT [address], [place] [address] 12/03/2023 1:45 PM CDT Appointment [facility] [address] [place] [address] Farheen Puentes, PT [address], [place] [address] 12/06/2023 1:00 PM CDT [facility] [address] [address] Farheen Puentes, PT [address] [place] [address] 12/10/2023 1:45 PM CDT Appointment [facility] [address] [place] [address] Farheen Puentes, PT [address] [place] [address] 12/13/2023 1:45 PM CDT [facility] [address] [place] [address] Farheen Puentes, PT [address] [place] [address] 12/17/2023 1:00 PM CDT [facility] [address] [place] [address] Farheen Puentes, PT [address] [place] [address] 12/20/2023 1:00 PM CDT [facility]ment [facility] [address] [place] [address] Farheen Puentes, PT [address] [place] [address] 12/24/2023 1:00 PM CDT [facility] [address] [place] [address] Farheen Puentes, PT [address] [place] [address] 12/27/2023 1:00 PM CDT Appointment [facility] [address] [place] [address] Farheen Puentes, PT [address] [place] [address] 12/31/2023 1:00 PM CDT Appointment [facility] [address] [place] [address] Jasmin Hernández, PT [address] [place] [address] 01/02/2024 1:45 PM CDT Appointment [facility] [address] [place] [address] Deloris Farheen, PT [address] [place] [address] Health Maintenance Due Date Last Done Comments [...] (HC) SCAN-EYE EXAM 08/01/2023 12:00 AM CDT from Last 3 Months Results * (ABNORMAL) HEMOGLOBIN A1C MONITORING (POCT) (10/04/2023 9:44 AM CDT) HEMOGLOBIN A1C MONITORING (POCT) 11.6(H) <=6.4 % 10/04/2023 9:53 AM CDT [facility] Blood BLOOD SPECIMEN / Unknown Venipuncture / Unknown 10/04/2023 9:44 AM CDT 10/04/2023 9:44 AM CDT Narrative [facility] - 10/04/2023 9:53 AM CDT ? (<=6.9%) [...] Anemias, Splenectomy ? Rachel Sauceda DO CHEMISTRY [facility] [address] [place] [address], * SCAN-EYE EXAM (08/01/2023 12:00 AM CDT) Scanner OTHER from Last 3 Months Additional Health Concerns [...] months since positive culture): resides in acute/terminal manager care, receiving hemodialysis, has chronic open wounds/skin damage, has long-term percutaneous indwelling medical devices Exclusions for nares collection (if <12 months since positive culture) include all of the previous exclusions plus patients on antibiotics 7 days prior to collection 03/08/2023 05/31/2023 MDRO-GNB 04/26/2023 04/26/2023 Advance Directives Documents on File Type Date Recorded Patient Employment Trainer Expl anation POLST 03/26/2023 * Full Code [...] Code Status Discussion: Reviewed Preferences Care Teams Transplant Nurse Practitioner Relationship Specialty Start Date End Date VotelMelquiades MD [address] [place] [address] PCP - General 11/20/05 Nurses, Advanced Heart Failure [address], [place] [address] Advanced Heart Failure/Transplant Card 01/24/23 Shade Manuel MD [address] [place] [address] Dr [facility] [place] [address] Cardiovascular Disease 01/24/23
--- OUTSIDE RECORDS SUMMARY | 2023-10-31 09:06 | XMS_ITS ---
Author Organization [facility] Address [address] [place] [address] Care Team Providers Care Professor Of Food Biochemistry Name Role Phone Unavailable Unavailable Unavailable Surgery Details Not on file Complications Check Surgery Details section. Procedure Estimated Blood Loss Check Surgery Details section. Procedure Findings Check Surgery Details section. Procedure Specimens Taken Check Surgery Details section.
--- OUTSIDE RECORDS SUMMARY | 2023-10-31 09:06 | XMS_ITS | Referral Summary ---
Author Organization [facility] Address [address] [place] [address] Care Team Providers Care Line Installation Supervisor Name Role Phone Elsewhere, Pcp Primary Care Provider Unavailabl e Source Comments Patient records contain information from all sites at [facility]. For routine questions regarding patient records, call [phone] during business hours, M-F 8:00 AM - 5:00 PM Central Time. Record requests for emergency care only can be directed to [phone] at any time.[facility] Allergies No known active allergies Medications Medication [...] Heel: Area continues to improve. Wound measures [id number]. Edges well defined, attached and 100% re-epithelialized [...] will follow up with his PCP in [place] [facility] (Current) Anticoagulant Treatment 08/2022 Overview: On apixaban [...] standard wheelchair Mr. Woods was admitted to [facility] April 10 following BK right lower [...] T4 was 0.92 in April 2023. residential mental health worker confirmed levothyroxine is given every morning (6am) without other medications. Therefore, we will increase levothyroxine 50mcg to 75mcg and rechecked TSH in 6 weeks. Nursing instructed to continue monitoring for symptoms of hypothyroidism and contact [place] provider if any concerns. 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 [...] and palpitation. 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 Atherosclerosis Of [place] Ar teries Of Other Extremities With Ulceration [...] COVID-19 12/27/2022. Treated with remdesivir at [facility]. Anemia 01/16/2023 04/12/2023 Overview: Lab Results [...] 05/24/2023 Overview: Onychomycosis of toenails; Original Code: [id number] Original Codesystem: SNOMED CT Classification: Medical Confirmation [...] Comments Blood Pressure 107/66 06/18/2023 1:10 PM TRIAL MANAGEMENT ASSOCIATE Pulse 78 06/18/2023 1:10 PM TRIAL MANAGEMENT ASSOCIATE Temperature 36.6 ??C (97.8 ??F) 06/18/2023 1:10 PM CS T Respiratory Rate 16 06/18/2023 1:10 PM TRIAL MANAGEMENT ASSOCIATE Oxygen Saturation 95% 06/18/2023 1:10 PM TRIAL MANAGEMENT ASSOCIATE Inhaled Oxygen Concentration - - Weight 75.8 kg (167 lb) 06/18/2023 1:10 PM TRIAL MANAGEMENT ASSOCIATE Height 175.3 cm (5' 9) 04/12/2023 3:21 PM TRIAL MANAGEMENT ASSOCIATE Body Mass Index 24.66 04/12/2023 3:21 PM TRIAL MANAGEMENT ASSOCIATE Plan of Treatment Not on file Advance Directives For more information, please contact: [phone] * DNR/DNI (Latest Code Status on File) Date Activated Date Inactivated Comments 05/24/2023 6:14 PM * DNR/DNI Date Activated Date Inactivated Comments 04/12/2023 4:11 PM 04/16/2023 7:15 AM Care Teams Line Installation Supervisor Relationship Specialty Start Date End Date Elsewhere, Pcp PCP - General Internal Medicine 08/28/23
== END 2023-10-31 08:56 | disposition home or self-care (01) ==
LOC: WOUND 09:03
PROVIDERS: PCP Family Medicine; Visit Provider Surgery
DX: E11.621 Type 2 diabetes mellitus with foot ulcer (principal); L97.422 Non-pressure chronic ulcer of left heel and midfoot with fat layer exposed; Z79.4 Long term (current) use of insulin
CPT/HCPCS: 97597

== ENCOUNTER 2023-11-07 09:03 | Outpatient (CLI) | payer MEDICARE, BC, SELFPAY ==
--- OUTSIDE RECORDS SUMMARY | 2023-11-07 09:09 | XMS_ITS | Continuity of Care Document ---
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 It does not include entries that were removed or entered in error. Problem Status Onset Date Problem Type Date of Resolution Comments Source Exposure to potentially hazardous substance ([facility] [id number]) Active 07/20/19 24 Condition Jul 20, 2023 Entered By: MECHELLE DEMPSEY [facility]: [facility] TAM Documentation Initiative [facility] CAD - Coronary Artery Disease ([facility] [id number]) Active Condition [place] ([facility]) CHF - Congestive Heart Failure ([facility] [id number]) Active Condition [facility]) Diabetes Mellitus Type 2 ([facility] [id number]) Active Condition [facility]) HTN - Hypertension ([facility] [id number]) Active Condition [place] ([facility]) Hyperlipidemia ([facility] [id number]) Active Condition [facility]) Long-term current use of insulin Active Condition [facility]) Peripheral neuropathy due to type 2 diabetes mellitus Active Condition [place] ([facility]) Diagnosis: ICD-10-CM H90.3 Sensorineural hearing loss, bilateral Active Diagnosis [facility] Diagnosis: ICD-10-CM I50.9 Heart failure, unspecified Active Diagnosis [facility]) Diagnosis: ICD-10-CM E11.9 Type 2 diabetes mellitus without complications Active Diagnosis [facility] Diagnosis: ICD-10-CM R26.89 Other abnormalities of gait and mobility Active Diagnosis [facility] ([facility]) Diagnosis: ICD-10-CM Z00.00 Encntr for general adult medical exam w/o abnormal findings Active Diagnosis [facility] ([facility]) Medications Combined list of outpatient medications from Department of [facility] and [facility] facilities.Medications provided include 1) outpatient medications from the last 15 months, and 2) patient-reported medications. Medication Details Route Status Patient Instructions Prescription Expires Prescription Number Last Dispense Date Ordering Provider Order Date Order Qty Source APIXABAN 5MG TAB TAKE ONE TABLET BY MOUTH EVERY 12 HOURS ORAL RYAN GLASS 2022 [facility] ([facility]) ATORVASTATI N CA 40MG TAB TAKE ONE TABLET BY MOUTH DAILY ORAL RYAN GLASS 2022 [facility] ([facility]) CADEXOMER IODINE 0.9% GEL,TOP APPLY THIN LAYER TOPICALL Y DIRECTED KAYLI Jackson WOUND CARE ORDERS TOPICA L ACTIVE 02/16/2024 [id number] KATHY MURPHY 2022 [address] [place] [facility] CLOPIDOGREL BISULFATE 75MG TAB TAKE ONE TABLET BY MOUTH DAILY ORAL RYAN GLASS 2022 [place] ([facility]) CONTOUR NEXT (GLUCOSE) TEST STRIP USE 1 STRIP THREE TIMES A DAY NOT APPLIC ABLE ACTIVE RYAN CHESTER 2020 [facility] ([facility]) FUROSEMIDE 40MG TAB TAKE ONE TABLET BY MOUTH DAILY ORAL FELICITY GLASS BOB Sharpe 2022 [facility] ([facility]) GLIPIZIDE 5MG TAB TAKE ONE TABLET BY MOUTH TWICE A DAY ORAL RYAN GLASS 2022 [facility] ([facility]) INSULIN ASPART (HUMAN) INJ INJECT 10 UNITS UNDER THE SKIN BEFORE MEALS SUBCUT ANEOUS RYAN GLASS 2022 [facility] ([facility]) INSULIN GLARGINE 300UNITS/ML 3ML PEN INJ INJECT 25 UNITS UNDER THE SKIN DAILY SUBCUT ANEOUS RYAN GLASS 2022 [facility] ([facility]) LOSARTAN 25MG TAB TAKE ONE-HALF TABLET BY MOUTH DAILY RYAN MUSE 2022 [facility] ([facility]) METOPROLOL SUCCINATE 50MG TAB,SA TAKE ONE TABLET BY MOUTH DAILY ORAL RYAN GLASS 2022 [facility] ([facility]) NITROGLYCER IN 0.4MG TAB,SUBLING UAL DISSOLVE ONE TABLET UNDER THE TONGUE PRN SUBLIN GUAL RYAN GLASS 2020 [facility] ([facility]) NON VA MED NOT LISTED USE ACCU-GRACIE CK ALEJO PLUS METER THREE TIMES A DAY NOT APPLIC ABLE RYAN GLASS 2020 [facility] ([facility]) SHIRA FINE 32 DISPOSABLE NEEDLE USE 1 NEEDLE UNDER THE SKIN FOUR TIMES A DAY SUBCUT ANEOUS ACTIVE RYAN CHESTER K 2020 [facility] ([facility]) PANTOPRAZOL E NA 40MG TAB,EC TAKE ONE TABLET BY MOUTH DAILY ORAL ACTIVE RYAN CHESTER K 2022 [facility] ([facility]) SACUBITRIL 24MG/VALSAR ADAM 26MG TAB TAKE ONE TABLET BY MOUTH TWO TIMES A DAY ORAL ACTIVE RYAN CHESTER K 2022 [facility] ([facility]) SPIRONOLACT ONE 25MG TAB TAKE ONE TABLET BY MOUTH DAILY ORAL ACTIVE FELICITY CHESTER P 2022 [place] [facility] ([facility]) TRIAMCINOLO NE ACETONIDE 0.1% OINT,TOP APPLY SMALL AMOUNT TOPICALL Y THREE TIMES A DAY NEEDED TOPICA L RYAN GLASS K 2020 [facility] ([facility]) Immunizations Combined list of available immunizations from the Department of Defense and Veterans Affairs facilities. Immunization Series Date Given Administered By Site Reaction Lot Number CVX Code Drug Wind Science And Planning Status Comments Source INFLUENZA, HIGH-DOSE, QUADRIVALENT 1 2021 197 complet ed [facility] COVID-19 (MODERNA), MRNA, LNP-S, BIVALENT, PF, 50 MCG/0.5 ML OR 25MCG/0.25 ML DOSE 1 2021 229 complet ed [facility] COVID-19 (PFIZER), MRNA, LNP-S, PF, 30 [...] LNP-S, PF, 30 MCG/0.3 ML DOSE 2 03/13/ 2021 208 complet ed [facility] COVID-19 (PFIZER), MRNA, LNP-S, PF, 30 MCG/0.3 ML DOSE 1 2020 208 complet ed [facility] INFLUENZA, UNSPECIFIED FORMULATION 2019 88 complet ed [facility] PNEUMOCOCCAL CONJUGATE PCV 13 2014 133 complet ed Per [facility] PNEUMOCOCCAL POLYSACCHARID E PPV23 2010 33 complet ed [facility] PNEUMOCOCCAL POLYSACCHARID E PPV23 2005 33 complet ed [facility] Results Combined list of recent chemistry, hematology and other laboratory results from Department of Defense and Veterans Affairs, ranging from 15 months to all on record, depending upon the facility. Order Name Results Value Reference Range Date Interpretation Specimen Comments Source BASIC METABOLIC PANEL+MG CREATININE [MASS/VOLUM E] IN SERUM OR PLASMA 1.2 mg/dL 0.7 - 1.2 01/23 Specimen Type: PLASMA No comment entered. Ordering Provider: AILIN CHESTER Report Released Date/Time: Jan 23, 2023 02:00 PM Reporting Lab: [facility] [phone] Performing Lab: [facility] [address] [place] ([facility]) BASIC METABOLIC PANEL+MG UREA NITROGEN [MASS/VOLUM E] IN SERUM OR PLASMA 35 mg/dL 8 - 26 01/23 H Specimen Type: PLASMA No comment entered. Ordering Provider: AILIN CHESTER Report Released Date/Time: Jan 23, 2023 02:00 PM Reporting Lab: [facility] [address] Performing Lab: [facility] [address] [place] ([facility]) BASIC METABOLIC PANEL+MG GLUCOSE [MASS/VOLUM E] IN SERUM OR PLASMA 239 mg/dL 70 - 100 01/23 H Specimen Type: PLASMA No comment entered. Ordering Provider: AILIN CHESTER Report Released Date/Time: Jan 23, 2023 02:00 PM Reporting Lab: [facility] [address] Performing Lab: [facility] [address] [place] ([facility]) BASIC METABOLIC PANEL+MG SODIUM [MOLES/VOLU ME] IN SERUM OR PLASMA 140 mmol/L 136 - 145 01/23 Specimen Type: PLASMA No comment entered. Ordering Provider: AILIN CHESTER Report Released Date/Time: Jan 23, 2023 02:00 PM Reporting Lab: [place] [id number] Performing Lab: [address] ([facility]) BASIC METABOLIC PANEL+MG POTASSIUM [MOLES/VOLU ME] IN SERUM OR PLASMA 5.1 mmol/L 3.5 - 5.1 01/23 Specimen Type: PLASMA No comment entered. Ordering Provider: AILIN CHESTER Report Released Date/Time: Jan 23, 2023 02:00 PM Reporting Lab: [place] [address] Performing Lab: [address] ([facility]) BASIC METABOLIC PANEL+MG CHLORIDE [MOLES/VOLU ME] IN SERUM OR PLASMA 109 mmol/L 98 - 107 01/23 H Specimen Type: PLASMA No comment entered. Ordering Provider: AILIN CHESTER Report Released Date/Time: Jan 23, 2023 02:00 PM Reporting Lab: [place] [id number] Performing Lab: [address] ([facility]) BASIC METABOLIC PANEL+MG CARBON DIOXIDE, TOTAL [MOLES/VOLU ME] IN SERUM OR PLASMA 21 mmol/L 22 - 29 01/23 L Specimen Type: PLASMA No comment entered. Ordering Provider: AILIN CHESTER Report Released Date/Time: Jan 23, 2023 02:00 PM Reporting Lab: [place] [phone] Performing Lab: [address] ([facility]) BASIC METABOLIC PANEL+MG CALCIUM [MASS/VOLUM E] IN SERUM OR PLASMA 9.4 mg/dL 8.4 - 10.2 01/23 Specimen Type: PLASMA No comment entered. Ordering Provider: AILIN CHESTER Report Released Date/Time: Jan 23, 2023 02:00 PM Reporting Lab: [place] [phone] Performing Lab: [address] [place] [address] ([facility]) BASIC METABOLIC PANEL+MG MAGNESIUM [MASS/VOLUM E] IN SERUM OR PLASMA 1.7 mg/dL 1.6 - 2.6 01/23 Specimen Type: PLASMA No comment entered. Ordering Provider: AILIN CHESTER Report Released Date/Time: Jan 23, 2023 02:00 PM Reporting Lab: [facility] [address] Performing Lab: [address] ([facility]) BASIC METABOLIC PANEL+MG ANION GAP IN SERUM OR PLASMA 10 mmol/L 5 - 15 01/23 Specimen Type: PLASMA No comment entered. Ordering Provider: AILIN CHESTER Report Released Date/Time: Jan 23, 2023 02:00 PM Reporting Lab: [place] [phone] Performing Lab: [address] ([facility]) BASIC METABOLIC PANEL+MG GLOMERULAR FILTRATION RATE/1.73 SQ M.PREDICTED [VOLUME RATE/AREA] IN SERUM, PLASMA OR BLOOD BY CREATININE- BASED FORMULA (CKD-EPI 2020) 61 60 01/23 Specimen Type: PLASMA No comment entered. Ordering Provider: AILIN CHESTER Report Released Date/Time: Jan 23, 2023 02:00 PM Reporting Lab: [place] [phone] Performing Lab: [place] [phone] ([facility]) BNP NATRIURETIC PEPTIDE B [MASS/VOLUM E] IN SERUM OR PLASMA 1549 pg/mL <99 - 99 01/23 H Specimen Type: PLASMA No comment entered. Ordering Provider: AILIN CHESTER Report Released Date/Time: Jan 23, 2023 02:00 PM Reporting Lab: [facility] [phone] Performing Lab: [facility] [phone] ([facility]) MICROALBU MIN/CREAT ININE RATIO URINE CREATININE [MASS/VOLUM E] IN URINE 132.8 mg/dL 58.0 - 161.0 11/23 Specimen Type: URINE No comment entered. Ordering Provider: AILIN CHESTER Report Released Date/Time: Nov 23, 2022 11:58 AM Reporting Lab: [facility] [phone] Performing Lab: [facility] [phone] [place] ([facility]) MICROALBU MIN/CREAT ININE RATIO URINE MICROALBUMI N/CREATININ E [MASS RATIO] IN URINE 28.0 mg/g{c reat} 11/23 Specimen Type: URINE No comment entered. Ordering Provider: AILIN CHESTER Report Released Date/Time: Nov 23, 2022 11:58 AM Reporting Lab: [place] [phone] Performing Lab: [place] [phone] [place] ([facility]) MICROALBU MIN/CREAT ININE RATIO URINE MICROALBUMI N [MASS/VOLUM E] IN URINE 37.2 mg/L 11/23 H Specimen Type: URINE No comment entered. Ordering Provider: AILIN CHESTER Report Released Date/Time: Nov 23, 2022 11:58 AM Reporting Lab: [place] [phone] Performing Lab: [place] [phone] [place] ([facility]) CBC LEUKOCYTES [#/VOLUME] IN BLOOD BY AUTOMATED COUNT 10.80 10*3/u L 4.0 - 11.0 11/23 Specimen Type: BLOOD No comment entered. Ordering Provider: AILIN CHESTER Report Released Date/Time: Nov 23, 2022 11:58 AM Reporting Lab: [facility] [phone] Performing Lab: [facility] [phone] [place] ([facility]) CBC ERYTHROCYTE S [#/VOLUME] IN BLOOD BY AUTOMATED COUNT 3.87 10*6/u L 4.6 - 6.2 11/23 L Specimen Type: BLOOD No comment entered. Ordering Provider: AILIN CHESTER Report Released Date/Time: Nov 23, 2022 11:58 AM Reporting Lab: [facility] [phone] Performing Lab: [place] [phone] [place] ([facility]) CBC HEMOGLOBIN [MASS/VOLUM E] IN BLOOD 12.1 g/dL 13.5 - 17.9 11/23 L Specimen Type: BLOOD No comment entered. Ordering Provider: AILIN CHESTER Report Released Date/Time: Nov 23, 2022 11:58 AM Reporting Lab: [place] [address] Performing Lab: [address] ([facility]) CBC HEMATOCRIT [VOLUME FRACTION] OF BLOOD BY AUTOMATED COUNT 37.5 41 - 54 11/23 L Specimen Type: BLOOD No comment entered. Ordering Provider: AILIN CHESTER Report Released Date/Time: Nov 23, 2022 11:58 AM Reporting Lab: [place] [address] Performing Lab: [address] ([facility]) CBC MCV [ENTITIC VOLUME] BY AUTOMATED COUNT 96.9 fL 80 - 100 11/23 Specimen Type: BLOOD No comment entered. Ordering Provider: AILIN CHESTER Report Released Date/Time: Nov 23, 2022 11:58 AM Reporting Lab: [place] [address] Performing Lab: [address] ([facility]) CBC MCH [ENTITIC MASS] BY AUTOMATED COUNT 31.3 pg 27 - 33 11/23 Specimen Type: BLOOD No comment entered. Ordering Provider: AILIN CHESTER Report Released Date/Time: Nov 23, 2022 11:58 AM Reporting Lab: [place] [address] Performing Lab: [address] ([facility]) CBC MCHC [MASS/VOLUM E] BY AUTOMATED COUNT 32.3 g/dL 32.0 - 37.5 11/23 Specimen Type: BLOOD No comment entered. Ordering Provider: AILIN CHESTER Report Released Date/Time: Nov 23, 2022 11:58 AM Reporting Lab: [place] [address] Performing Lab: [address] ([facility]) CBC PLATELETS [#/VOLUME] IN BLOOD BY AUTOMATED COUNT 293 10*3/u L 150 - 400 11/23 Specimen Type: BLOOD No comment entered. Ordering Provider: AILIN CHESTER Report Released Date/Time: Nov 23, 2022 11:58 AM Reporting Lab: [facility] [phone] Performing Lab: [facility] [phone] [place] ([facility]) CBC PLATELET MEAN VOLUME [ENTITIC VOLUME] IN BLOOD BY AUTOMATED COUNT 10.3 fL 7.4 - 10.4 11/23 Specimen Type: BLOOD No comment entered. Ordering Provider: AILIN CHESTER Report Released Date/Time: Nov 23, 2022 11:58 AM Reporting Lab: [facility] [phone] Performing Lab: [facility] [phone] [place] ([facility]) CBC ERYTHROCYTE DISTRIBUTIO N WIDTH [RATIO] BY AUTOMATED COUNT 13.2 11.5 - 14.5 11/23 Specimen Type: BLOOD No comment entered. Ordering Provider: AILIN CHESTER Report Released Date/Time: Nov 23, 2022 11:58 AM Reporting Lab: [facility] [phone] Performing Lab: [facility] [phone] [place] ([facility]) COMPREHEN SIVE METABOLIC PANEL+MG CREATININE [MASS/VOLUM E] IN SERUM OR PLASMA 1.2 mg/dL 0.7 - 1.2 11/23 Specimen Type: PLASMA No comment entered. Ordering Provider: AILIN CHESTER Report Released Date/Time: Nov 23, 2022 11:58 AM Reporting Lab: [facility] [phone] Performing Lab: [facility] [address] [place] ([facility]) COMPREHEN SIVE METABOLIC PANEL+MG UREA NITROGEN [MASS/VOLUM E] IN SERUM OR PLASMA 34 mg/dL 8 - 26 11/23 H Specimen Type: PLASMA No comment entered. Ordering Provider: AILIN CHESTER Report Released Date/Time: Nov 23, 2022 11:58 AM Reporting Lab: [facility] [phone] Performing Lab: [facility] [address] [place] ([facility]) COMPREHEN SIVE METABOLIC PANEL+MG GLUCOSE [MASS/VOLUM E] IN SERUM OR PLASMA 54 mg/dL 70 - 100 11/23 L Specimen Type: PLASMA No comment entered. Ordering Provider: AILIN CHESTER Report Released Date/Time: Nov 23, 2022 11:58 AM Reporting Lab: [place] [address] Performing Lab: [address] [place] [address] ([facility]) COMPREHEN SIVE METABOLIC PANEL+MG SODIUM [MOLES/VOLU ME] IN SERUM OR PLASMA 143 mmol/L 136 - 145 11/23 Specimen Type: PLASMA No comment entered. Ordering Provider: AILIN CHESTER Report Released Date/Time: Nov 23, 2022 11:58 AM Reporting Lab: [place] [phone] Performing Lab: [address] ([facility]) COMPREHEN SIVE METABOLIC PANEL+MG POTASSIUM [MOLES/VOLU ME] IN SERUM OR PLASMA 4.4 mmol/L 3.5 - 5.1 11/23 Specimen Type: PLASMA No comment entered. Ordering Provider: AILIN CHESTER Report Released Date/Time: Nov 23, 2022 11:58 AM Reporting Lab: [place] [phone] Performing Lab: [address] ([facility]) COMPREHEN SIVE METABOLIC PANEL+MG CHLORIDE [MOLES/VOLU ME] IN SERUM OR PLASMA 107 mmol/L 98 - 107 11/23 Specimen Type: PLASMA No comment entered. Ordering Provider: AILIN CHESTER Report Released Date/Time: Nov 23, 2022 11:58 AM Reporting Lab: [facility] [phone] Performing Lab: [address] ([facility]) COMPREHEN SIVE METABOLIC PANEL+MG CARBON DIOXIDE, TOTAL [MOLES/VOLU ME] IN SERUM OR PLASMA 23 mmol/L 22 - 29 11/23 Specimen Type: PLASMA No comment entered. Ordering Provider: AILIN CHESTER Report Released Date/Time: Nov 23, 2022 11:58 AM Reporting Lab: [address] Performing Lab: [address] ([facility]) COMPREHEN SIVE METABOLIC PANEL+MG CALCIUM [MASS/VOLUM E] IN SERUM OR PLASMA 9.7 mg/dL 8.4 - 10.2 11/23 Specimen Type: PLASMA No comment entered. Ordering Provider: AILIN CHESTER Report Released Date/Time: Nov 23, 2022 11:58 AM Reporting Lab: [address] Performing Lab: [address] ([facility]) COMPREHEN SIVE METABOLIC PANEL+MG PROTEIN [MASS/VOLUM E] IN SERUM OR PLASMA 7.2 g/dL 6.0 - 8.3 11/23 Specimen Type: PLASMA No comment entered. Ordering Provider: AILIN CHESTER Report Released Date/Time: Nov 23, 2022 11:58 AM Reporting Lab: [place] [address] Performing Lab: [address] ([facility]) COMPREHEN SIVE METABOLIC PANEL+MG ALBUMIN [MASS/VOLUM E] IN SERUM OR PLASMA 4.1 g/dL 3.5 - 5.2 11/23 Specimen Type: PLASMA No comment entered. Ordering Provider: AILIN CHESTER Report Released Date/Time: Nov 23, 2022 11:58 AM Reporting Lab: [place] [address] Performing Lab: [address] ([facility]) COMPREHEN SIVE METABOLIC PANEL+MG BILIRUBIN.T OTAL [MASS/VOLUM E] IN SERUM OR PLASMA 0.5 mg/dL 0.2 - 1.2 11/23 Specimen Type: PLASMA No comment entered. Ordering Provider: AILIN CHESTER Report Released Date/Time: Nov 23, 2022 11:58 AM Reporting Lab: [address] Performing Lab: [address] ([facility]) COMPREHEN SIVE METABOLIC PANEL+MG MAGNESIUM [MASS/VOLUM E] IN SERUM OR PLASMA 1.4 mg/dL 1.6 - 2.6 11/23 L Specimen Type: PLASMA No comment entered. Ordering Provider: AILIN CHESTER Report Released Date/Time: Nov 23, 2022 11:58 AM Reporting Lab: [facility] [phone] Performing Lab: [facility] [phone] [place] ([facility]) COMPREHEN SIVE METABOLIC PANEL+MG ANION GAP IN SERUM OR PLASMA 13 mmol/L 5 - 15 11/23 Specimen Type: PLASMA No comment entered. Ordering Provider: AILIN CHESTER Report Released Date/Time: Nov 23, 2022 11:58 AM Reporting Lab: [facility] [phone] Performing Lab: [facility] [phone] [place] ([facility]) COMPREHEN SIVE METABOLIC PANEL+MG ALKALINE PHOSPHATASE [ENZYMATIC ACTIVITY/VO LUME] IN SERUM OR PLASMA 87 U/L 40 - 150 11/23 Specimen Type: PLASMA No comment entered. Ordering Provider: AILIN CHESTER Report Released Date/Time: Nov 23, 2022 11:58 AM Reporting Lab: [facility] [address] Performing Lab: [facility] [address] [place] ([facility]) COMPREHEN SIVE METABOLIC PANEL+MG ALANINE AMINOTRANSF ERASE [ENZYMATIC ACTIVITY/VO LUME] IN SERUM OR PLASMA 28 U/L 11/23 Specimen Type: PLASMA No comment entered. Ordering Provider: AILIN CHESTER Report Released Date/Time: Nov 23, 2022 11:58 AM Reporting Lab: [facility] [address] Performing Lab: [facility] [phone] [place] ([facility]) COMPREHEN SIVE METABOLIC PANEL+MG ASPARTATE AMINOTRANSF ERASE [ENZYMATIC ACTIVITY/VO LUME] IN SERUM OR PLASMA 33 U/L 11/23 Specimen Type: PLASMA No comment entered. Ordering Provider: AILIN CHESTER Report Released Date/Time: Nov 23, 2022 11:58 AM Reporting Lab: [facility] [address] Performing Lab: [facility] [address] [place] ([facility]) COMPREHEN SIVE METABOLIC PANEL+MG GLOMERULAR FILTRATION RATE/1.73 SQ M.PREDICTED [VOLUME RATE/AREA] IN SERUM, PLASMA OR BLOOD BY CREATININE- BASED FORMULA (CKD-EPI 2020) 61 11/23 Specimen Type: PLASMA No comment entered. Ordering Provider: AILIN CHESTER Report Released Date/Time: Nov 23, 2022 11:58 AM Reporting Lab: [facility] [address] Performing Lab: [facility] [address] [place] ([facility]) HEMOGLOBI N A1C HEMOGLOBIN A1C/HEMOGLO BIN.TOTAL [...] Nov 23, 2022 11:58 AM Reporting Lab: [facility] [address] Performing Lab: [facility] [address] [place] ([facility]) LIPID PANEL,NON -FASTING CHOLESTEROL [MASS/VOLUM E] IN SERUM OR PLASMA 130 mg/dL 11/23 Specimen Type: PLASMA No comment entered. Ordering Provider: AILIN CHESTER Report Released Date/Time: Nov 23, 2022 11:58 AM Reporting Lab: [facility] [address] Performing Lab: [facility] [address] [place] ([facility]) LIPID PANEL,NON -FASTING CHOLESTEROL IN HDL [MASS/VOLUM E] IN SERUM OR PLASMA 39 mg/dL 11/23 L Specimen Type: PLASMA No comment entered. Ordering Provider: AILIN CHESTER Report Released Date/Time: Nov 23, 2022 11:58 AM Reporting Lab: [facility] [address] Performing Lab: [facility] [address] [place] ([facility]) LIPID PANEL,NON -FASTING CHOLESTEROL IN LDL [MASS/VOLUM E] IN SERUM OR PLASMA BY CALCULATION 73 mg/dL 11/23 Specimen Type: PLASMA No comment entered. Ordering Provider: AILIN CHESTER Report Released Date/Time: Nov 23, 2022 11:58 AM Reporting Lab: [facility] [address] Performing Lab: [address] ([facility]) LIPID PANEL,NON -FASTING CHOLESTEROL IN VLDL [MASS/VOLUM E] IN SERUM OR PLASMA BY CALCULATION 18 mg/dL 11/23 Specimen Type: PLASMA No comment entered. Ordering Provider: AILIN CHESTER Report Released Date/Time: Nov 23, 2022 11:58 AM Reporting Lab: [facility] [address] Performing Lab: [facility] [address] [place] ([facility]) LIPID PANEL,NON -FASTING CHOLESTEROL NON HDL [MASS/VOLUM E] IN SERUM OR PLASMA 91 mg/dL 11/23 Specimen Type: PLASMA No comment entered. Ordering Provider: AILIN CHESTER Report Released Date/Time: Nov 23, 2022 11:58 AM Reporting Lab: [facility] [address] Performing Lab: [facility] [address] [place] ([facility]) LIPID PANEL,NON -FASTING TRIGLYCERID E [MASS/VOLUM E] IN SERUM OR PLASMA 92 mg/dL 11/23 Specimen Type: PLASMA No comment entered. Ordering Provider: AILIN CHESTER Report Released Date/Time: Nov 23, 2022 11:58 AM Reporting Lab: [facility] [address] Performing Lab: [facility] [address] [place] ([facility]) TSH W/REFLEX TO FREE T4 THYROTROPIN [UNITS/VOLU ME] IN SERUM OR PLASMA 4.59 u[IU]/ mL 0.35 - 4.94 11/23 Specimen Type: PLASMA No comment entered. Ordering Provider: AILIN CHESTER Report Released Date/Time: Nov 23, 2022 11:58 AM Reporting Lab: [facility] [address] Performing Lab: [facility] [id number] [place] ([facility]) Vital Signs Combined list of inpatient and outpatient Vital Signs from Department of Defense and Veterans Affairs, ranging from 12 months to all on record, depending upon the facility. Vital Sign Value Date Comments Source Encounters Combined list of: 1) Encounters from [facility] of [facility] facilities going back up to thelast 18 months. 2) Encounters from the Department of [facility] facilities going back up to 280 months. Location Location Details Encounter Type Encounter Number Reason For Visit Attending Provider ADM Date DC Date Status Disposition Source [place] [facility] Outpatient Encounter [id number] 07/31 [facility] [place] [facility] Outpatient Encounter [id number] 08/21 [facility] [place] [facility] Outpatient [facility]counter [id number] 09/20 [facility] Outpatient Encounter [id number] 11/11 [facility] [place] [facility] Outpatient Encounter [id number] ZARI POWER 11/[facility] Outpatient [facility]counter [id number] 11/21 [facility] ([facility]) OFFICE O/P EST MOD 30-39 MIN [id number] Diagnos is: ICD-10- CM Z00.00 Encntr for general adult medical exam w/o abnorma l finding s
CANDELARIO CHESTER 11/23 [place] ([facility]) [facility]) GAIT TRAINING THERAPY [id number] Diagnos is: ICD-10- CM R26.89 Other abnorma lities of gait and mobilit y
OMAYRA JAMESON NTER V 11/23 [facility] ([facility]) [facility] Outpatient Encounter [id number] SA RA Sandra JAMESON 12/11 [facility] [place] [facility] Outpatient Encounter [id number] 12/25 [facility] [place] [facility] Outpatient Encounter [id number] SA RA Sandra JAMESON 12/28 [place] [facility] [place] [facility] Outpatient Encounter [id number] 01/05 [place] [facility] [place] [facility] Outpatient Encounter [id number] 01/11 [place] [facility] [place] [facility] Outpatient Encounter [id number] 01[facility]16 [facility] O/P EST HI 40-54 MIN [id number] Diagnos is: ICD-10- CM I50.9 Heart failure , unspeci fied
CANDELARIO CHESTER 01/23 [place] ([facility] [place] [facility] Outpatient Encounter [id number] Marcus POTTS I 01/24 [place] [facility] [place] [facility] Out[facility] Encounter [id number] Danica TORRE 02/05 [place] [facility] [place] [facility] Out[facility] Encounter [id number] 02/09 [facility] [place] [facility] Outpatient Encounter [id number] Danica TORRE 02/09 [place] [facility] [place] [facility] Out[facility] Encounter [id number] 02/14 [place] [facility] [place] [facility] Outpatient Encounter [id number] 02/15 [facility] [facility] [place] [facility] Outpatient Encounter [id number] 02/19 [place] [facility] [place] [facility] Outpatient Encounter [id number] 02/20 [place] [facility] [place] [facility] Outpatient Encounter [id number] 02/20 [place] [facility] [place] [facility] Outpatient Encounter [id number] 02/20 [place] [facility] [place] [facility] Outpatient Encounter [id number] 02/20 [place] [facility] [place] [facility] Outpatient Encounter [id number] 02/21 [place] [facility] [place] [facility] QNHP OL DIG ASSMT&MGMT 5-10 [id number] Diagnos is: ICD-10- CM E11.9 Type 2 diabete s mellitu s without complic ations< br/> HARDER,SIVA LY 02/22 [place] [facility] PRO PHONE CALL 11-20 MIN [id number] Diagnos is: ICD-10- CM I50.9 Heart failure , unspeci fied
JERMAINE ALCANTAR ANDMARIA INES M 02/23 [place] [facility] [place] [facility] Outpatient Encounter [id number] 02/26 [place] [facility] [place] [facility] Outpatient Encounter [id number] 03/01 [place] [facility] [place] [facility] Outpatient Encounter [id number] SA JAMARI JAMESON R 03/09 [place] [facility] [place] [facility] Outpatient Encounter [id number] 03/14 [place] [facility] [place] [facility] Outpatient Encounter [id number] SA JAMARI JAMESON R 04/12 [place] [facility] [place] [facility] Outpatient Encounter [id number] SA JAMARI JAMESON R 04/16 [place] [facility] [place] [facility] Outpatient Encounter [id number] SA JAMARI JAMESON R 05/01 [place] [facility] [place] [facility] Outpatient Encounter [id number] 07/11 [facility] [place] [facility] Outpatient Encounter [id number] [facility] [place] [facility] Outpatient Encounter [id number] 07/12 [facility] [place] [facility] HC PRO PHONE CALL 5-10 MIN [id number] Diagnos is: ICD-10- CM 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
VIV BARFIELD Thanh M 07/19 [facility] [place] [facility] HEARING AID REPAIR/MOD IFYING [id number] Diagnos is: ICD-10- CM 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
CARY CORCORAN 08/09 [facility] [place] [facility] HEARING AID FITTING/CH ECKING [id number] Diagnos is: ICD-10- CM 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
Sy MAKI 09/17 [facility] Social History Combined list of available smoking, tobacco, and other social history from Department of Defense and Veterans Affairs facilities. Social History Type Response Date Comment Sourc e Tobacco smoking status NHIS VA-TOBACCO FORMER USER 11/23/2022 [place] ([facility]) History of tobacco use DE-TOBACCO QUIT 1 5 YRS OR MORE 11/23/2022 [place] ([facility]) History of tobacco use VA-TOBACCO FORMER USER 11/29/2021 [place] ([facility]) History of tobacco use VA-TOBACCO FORMER USER 10/21/2020 [place] ([facility]) Plan of Care List of future care activities from Department of Veterans Affairs facilities. Additional future care activities may be listed in the Assessment and Plan section. Date/Time Care Activity Care Activity Detail Facili ty 11/08/2023 AMBULATORY - MEDICINE AMBULATORY - MEDICI [facility] ([facility])
--- OUTSIDE RECORDS SUMMARY | 2023-11-07 09:09 | XMS_ITS | Clinical Summary ---
Author Organization [facility] Address [address] [place] [address] Care Team Providers Care Water Use Inspector Name Role Phone Elsewhere, Pcp Primary Care Provider Unavailabl e Source Comments Patient records contain information from all sites at [facility]. For routine questions regarding patient records, call [phone] during business hours, M-F 8:00 AM - 5:00 PM Central Time. Record requests for emergency care only can be directed to [phone] at any time.[facility] Allergies No known active allergies Medications [...] Heel: Area continues to improve. Wound measures [id number]. Edges well defined, attached and 100% re-epithelialized [...] will follow up with his PCP in [facility] (Current) Anticoagulant Treatment 08/2022 Overview: On apixaban [...] standard wheelchair Mr. Woods was admitted to [facility] April 10 following BK right lower extremity. [...] T4 was 0.92 in April 2023. resident services supervisor confirmed levothyroxine is given every morning (6am) without other medications. Therefore, we will increase levothyroxine 50mcg to 75mcg and rechecked TSH in 6 weeks. Nursing instructed to continue monitoring for symptoms of hypothyroidism and contact [place] provider if any concerns. 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 Treated with remdesivir at [facility]. Anemia 01/16/2023 04/12/2023 Overview: Lab Results Component [...] 05/24/2023 Overview: Onychomycosis of toenails; Original Code: [id number] Original Codesystem: SNOMED CT Classification: Medical Confirmation [...] Comments Blood Pressure 107/66 06/18/2023 1:10 PM PLANT PROTECTION SUPERVISOR Pulse 78 06/18/2023 1:10 PM PLANT PROTECTION SUPERVISOR Temperature 36.6 ??C (97.8 ??F) 06/18/2023 1:10 PM CS T Respiratory Rate 16 06/18/2023 1:10 PM PLANT PROTECTION SUPERVISOR Oxygen Saturation 95% 06/18/2023 1:10 PM PLANT PROTECTION SUPERVISOR Inhaled Oxygen Concentration - - Weight 75.8 kg (167 lb) 06/18/2023 1:10 PM PLANT PROTECTION SUPERVISOR Height 175.3 cm (5' 9) 04/12/2023 3:21 PM PLANT PROTECTION SUPERVISOR Body Mass Index 24.66 04/12/2023 3:21 PM PLANT PROTECTION SUPERVISOR Plan of Treatment Health Maintenance Due [...] Advance Directives For more information, please contact: [phone] * DNR/DNI (Latest Code Status on File) Date Activated Date Inactivated Comments 05/24/2023 6:14 PM * DNR/DNI Date Activated Date Inactivated Comments 04/12/2023 4:11 PM 04/16/2023 7:15 AM Care Teams Water Use Inspector Relationship Specialty Start Date End Date Elsewhere, Pcp PCP - General Internal Medicine 08/28/23
--- OUTSIDE RECORDS SUMMARY | 2023-11-07 09:09 | XMS_ITS ---
Author Organization [facility] Address [address] [place] [address] Care Team Providers Care Offline Cutter Name Role Phone Unavailable Unavailable Unavailable Surgery Details Not on file Complications Check Surgery Details section. Procedure Estimated Blood Loss Check Surgery Details section. Procedure Findings Check Surgery Details section. Procedure Specimens Taken Check Surgery Details section.
--- OUTSIDE RECORDS SUMMARY | 2023-11-07 09:09 | XMS_ITS | Referral Summary ---
Author Organization [facility] Address [address] [place] [address] Care Team Providers Care Business Writer Name Role Phone Elsewhere, Pcp Primary Care Provider Unavailabl e Source Comments Patient records contain information from all sites at [facility]. For routine questions regarding patient records, call [phone] during business hours, M-F 8:00 AM - 5:00 PM Central Time. Record requests for emergency care only can be directed to [phone] at any time.[facility] Allergies No known active allergies Medications [...] Heel: Area continues to improve. Wound measures [id number]. Edges well defined, attached and 100% re-epithelialized [...] will follow up with his PCP in [facility] (Current) Anticoagulant Treatment 08/2022 Overview: On [...] standard wheelchair Mr. Woods was admitted to [facility] April 10 following BK right lower extremity. [...] T4 was 0.92 in April 2023. resident surgeon confirmed levothyroxine is given every morning (6am) without other medications. Therefore, we will increase levothyroxine 50mcg to 75mcg and rechecked TSH in 6 weeks. Nursing instructed to continue monitoring for symptoms of hypothyroidism and contact [place] provider if any concerns. 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 [...] and palpitation. 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 Treated with remdesivir at [facility]. Anemia 01/16/2023 04/12/2023 Overview: Lab [...] 05/24/2023 Overview: Onychomycosis of toenails; Original Code: [id number] Original Codesystem: SNOMED CT Classification: Medical Confirmation [...] Comments Blood Pressure 107/66 06/18/2023 1:10 PM DATA MANAGEMENT Pulse 78 06/18/2023 1:10 PM DATA MANAGEMENT Temperature 36.6 ??C (97.8 ??F) 06/18/2023 1:10 PM CS T Respiratory Rate 16 06/18/2023 1:10 PM DATA MANAGEMENT Oxygen Saturation 95% 06/18/2023 1:10 PM DATA MANAGEMENT Inhaled Oxygen Concentration - - Weight 75.8 kg (167 lb) 06/18/2023 1:10 PM DATA MANAGEMENT Height 175.3 cm (5' 9) 04/12/2023 3:21 PM DATA MANAGEMENT Body Mass Index 24.66 04/12/2023 3:21 PM DATA MANAGEMENT Plan of Treatment Not on file Advance Directives For more information, please contact: [phone] * DNR/DNI (Latest Code Status on File) Date Activated Date Inactivated Comments 05/24/2023 6:14 PM * DNR/DNI Date Activated Date Inactivated Comments 04/12/2023 4:11 PM 04/16/2023 7:15 AM Care Teams Business Writer Relationship Specialty Start Date End Date Elsewhere, Pcp PCP - General Internal Medicine 08/28/23
--- OUTSIDE RECORDS SUMMARY | 2023-11-07 09:09 | XMS_ITS | Clinical Summary ---
Author Organization [facility] Address [place], [place] [address] Care Team Providers Care [place] Layer Name Role Phone VotelMelquiades MD Primary Care Provider + Nurses, Advanced Heart Failure Unavailable + Shade Manuel MD Unavailable [phone] Allergies No known active allergies Medications Medication Sig Dispensed Refills Start Date End Date Status blood-glucose meterIndications: Type 2 diabetes mellitus with complication (HC) [employer]ia Glucometer, Dispense meter, test strips, lancets covered by pt ins. Test 3 times daily 1 Device 07/09/2020 Active Insulin Etlan, Disposable, (Novofine 32) 32 gauge x 1/4Indications:2 50.00 Diabetes Type 2, insulin dependent For administering insulin at home 4 times daily or as needed 400 Each 3 06/23/2021 Active ketoconazole 2% topical (NIZORAL) cream Apply topically to affected area(s) once daily if needed. APPLY TO AFFECTED AREA BETWEEN EYEBROWS 1-2X DAILY FOR 2 WEEKS AT A TIME NEEDED FOR FLARES 02/22/2021 Active artificial tears, peg 400-propylene glycol, (Systane) 0.4-0.3 [...] at bedtime. 90 Tablet 3 02/06/2023 Active acetaminophen (TYLENOL) 325 mg tabletIndications :Pain [...] units daily. 15 mL 3 10/04/2023 Active Additional Information Patient taking differently:17 unit Subcutaneous BEFORE BEDTIME,Increase by 2 units every 3 days until fasting blood sugars are in the 150s. 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 Up to 60 units daily 45 mL 10/04/2023 Active clotrimazole (LOTRIMIN) 1 % creamIndications: Balanitis Apply topically to affected area(s) two times daily. Use for 3 weeks. 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 Plus correction scale. 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 Change each sensor every 10 days [...] call MD. Up to 60 units daily 5 Each 5 11/06/2023 Active metoprolol succinate (Toprol XL) 25 mg Sustained-Release tabletIndications :HFrEF (heart failure with reduced ejection fraction) (HC) Take 0.5 Tablets (12.5 mg) by mouth once daily in the evening. 45 Tablet 3 11/06/2023 Active clopidogreL (PLAVIX) 75 mg tabletIndications :NSTEMI (non-ST elevated myocardial infarction) (HC) TAKE 1 TABLET(75 MG) BY MOUTH EVERY MORNING 90 Tablet 3 11/06/2023 Active apixaban (Eliquis) 5 mg tabletIndications :Paroxysmal atrial fibrillation (HC) TAKE 1 TABLET(5 MG) BY MOUTH TWICE DAILY 180 Tablet 3 11/06/2023 Active pantoprazole (PROTONIX) 40 mg delayed-release tabletIndications :Gastroesophageal reflux disease, unspecified whether esophagitis present Take 1 Tablet (40 mg) by mouth once daily. 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 Up to 3 tablets in 15 minutes. 50 Tablet 1 11/06/2023 Active nitroglycerin (NITROSTAT) 0.4 mg sublingual tabletIndications :Coronary artery disease involving tangirnaq heart without angina pectoris, unspecified vessel or lesion type PLACE 1 TABLET UNDER THE TONGUE EVERY 5 MINUTES IF NEEDED FOR CHEST PAIN 50 Tablet 09/20/2022 4 Discontinu ed(*Medica tion adjustment ) pantoprazole (PROTONIX) 40 mg delayed-release tabletIndications :Gastroesophageal reflux disease, unspecified whether esophagitis present Take 1 Tablet (40 mg) by mouth once daily. 90 Tablet 3 02/06/2023 4 Discontinu ed(Reorder (E-cancel not sent)) Eliquis 5 mg tabletIndications :Paroxysmal atrial fibrillation (HC) TAKE 1 TABLET(5 MG) BY MOUTH TWICE DAILY 180 Tablet 1 03/06/2023 4 Discontinu ed(Reorder (E-cancel not sent)) clopidogreL (PLAVIX) 75 mg tabletIndications :NSTEMI (non-ST elevated myocardial infarction) (HC) TAKE 1 TABLET(75 MG) BY MOUTH EVERY MORNING 90 Tablet 1 03/06/2023 4 Discontinu ed(Reorder (E-cancel not sent)) metoprolol succinate (Toprol XL) 25 mg Sustained-Release tabletIndications :HFrEF (heart failure with reduced ejection fraction) (HC) Take 0.5 Tablets (12.5 mg) by mouth once daily in the evening. 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 11/25/2019 HTN (hypertension) 10/28/2015 Hyperlipidemia LDL goal <70 10/28/2015 Adenomatous colon polyp 04/13/2015 Overview: Colonoscopy 04/2015 polyps repeat in 5 years Colonoscopy 03/2020 polyps, repeat in 5 years Background diabetic retinopathy(362.01) 07/10/19 08 Unspecified hearing loss 07/10/2007 Coronary atherosclerosis of unspecified type of vessel, tangirnaq or graft Overview: 4 vessel CABG 2001 Lexiscan only for cardiac evaluation - no treadmill Other ill-defined and unknow n causes of morbidity and mortality Impotence of organic origin Resolved Problems Problem Noted Date Diagnosed Date Resolved Date Type 2 diabetes mellitus with complication 11/16/2017 12/22/2022 Heart disease, unspecified 0 07/10/2007 Encounters Date Type Department Care Team Description 11/06/2023 10:25 AM CDT Office Visit [facility] [address] [place] [address] Melquiades Man MD Medicare ANNUAL (subsequent) Visit (83 year old male); Medication Management (insulin) 11/06/2023 Telephone [facility] [address] [place] [address] VoteMelquiades lewis MD Form 11/05/2023 12:49 PM CDT - 11/05/2023 11:59 PM CDT Hospital Encounter [facility] [address] [place] [address] Votel, MD Edgar Cleary Rebecca L, PT 11/05/2023 Travel 11/01/2023 1:00 PM CDT - 11/01/2023 11:59 PM CDT Hospital Encounter [facility] [address] [place] [address] Votel, MD Edgar Cleary Rebecca L, PT 11/01/2023 Travel 10/31/2023 Telephone [facility] [address] [place] [address] Melquiades Man MD 10/30/2023 10:00 AM CDT Patient Outreach [facility] [address] [place] [address] Priyanka Hummel draw machine operator (Insulin management/educati on) 10/29/2023 12:25 PM CDT - 10/29/2023 11:59 PM CDT Hospital Encounter [facility] [address] [place] [address] Votel, MD Edgar Cleary Rebecca L, PT 10/29/2023 Travel 10/25/2023 1:15 PM CDT - 10/25/2023 11:59 PM CDT Hospital Encounter [facility] [address] [place] [address] Votedebbie, MD Edgar Cleary Rebecca L, PT 10/25/2023 Travel 10/23/2023 Telephone [facility] [address] [place] [address] Melquiades Man MD 10/22/2023 1:21 PM CDT - 10/22/2023 11:59 PM CDT Hospital Encounter [facility] [address] [place] [address] Votedebbie, MD Edgar Cleary Rebecca L, PT 10/22/2023 Travel 10/18/2023 1:45 PM CDT - 10/18/2023 11:59 PM CDT Hospital Encounter [facility] [address], [place] [address] Votedebbie, MD Deloris Cleary Kayla, PT 10/18/2023 Travel 10/17/2023 Telephone [facility] [address] [place] [address] Votel, Melquiades Gray MD Outside Order (regarding frequency of home health visits) 10/15/2023 12:55 PM CDT - 10/15/2023 11:59 PM CDT Hospital Encounter [facility] [address] [place] [address] Votedebbie, MD Lesly Cleary Isabelle, PT 10/15/2023 Travel 10/11/2023 12:51 PM CDT - 10/11/2023 11:59 PM CDT Hospital Encounter [facility] [address], [place] [address] Gunnartedebbie, MD Lesly Cleary Isabelle, PT 10/11/2023 Travel 10/11/2023 Telephone [facility] [address] [place] [address] Melquiades Man MD 10/09/2023 Telephone [facility] [address] [place] [address] Melquiades Man MD Form 10/05/2023 Transcribe Orders [facility] [address] [facility] [place] [address] Isatu Hanley MD 10/04/2023 1:42 PM CDT - 10/04/2023 11:59 PM CDT Hospital Encounter [facility] [address] [place] [address] VoteMelquiades lewis MD Tonsfeldt, Isabelle, PT 10/04/2023 9:35 AM CDT Office Visit [facility] [address] [place] [address] Rachel Sauceda, DO Diabetes 10/04/2023 Telephone [facility] [address] [place] [address] Rachel Sacueda, DO Medication Management 10/04/2023 Travel 10/03/2023 Refill [facility] [address] [place] [address] Shade Manuel MD Refill Request (Farxiga) 10/01/2023 12:58 PM CDT - 10/01/2023 11:59 PM CDT Hospital Encounter [facility] [address] [place] [address] Melquiades Man MD Tonsfeldt, Isabelle, PT 10/01/2023 Travel 09/30/2023 Refill [facility] [address] [place] [address] Shade Manuel MD Refill Request (Dapagliflozin Propanediol) 09/27/2023 12:56 PM CDT - 09/27/2023 11:59 PM CDT [facility] [address] [place] [address] Melquiades Man MD Tonsfeldt, Isabelle, PT 09/27/2023 Travel 09/24/2023 12:57 PM CDT - 09/24/2023 11:59 PM CDT [facility] [address] [place] [address] Melquiades Man MD Tonsfeldt, Isabelle, PT 09/24/2023 Travel 09/20/2023 11:45 AM CDT - 09/20/2023 11:59 PM CDT [facility] [address], [place] [address] Melquiades Man MD Tonsfeldt, Isabelle, PT 09/20/2023 Travel 09/19/2023 Telephone [facility] [address] [place] [address] Melquiades Man MD 09/17/2023 Telephone [facility] [address] [place] [address] Melquiades Man MD orders (wound care 2 times per week) 09/13/2023 1:00 PM CDT - 09/13/2023 11:59 PM CDT Hospital [facility] [address], [place] [address] Melquiades Man MD Tonsfeldt, Isabelle, PT 09/13/2023 Travel 09/10/2023 12:53 PM CDT - 09/10/2023 11:59 PM CDT Hospital Encounter [facility] ? [facility] [address] [place] [address] Votel, MD Lesly Cleary Isabelle, PT 09/10/2023 Travel 09/06/2023 9:27 AM CDT - 09/06/2023 11:59 PM CDT Hospital Encounter [facility] [address] [place] [address] Votel, MD Lesly Cleary Isabelle, PT 09/06/2023 Travel 08/31/2023 Telephone [facility] [address] [place] [address] VoteMelquiades lewis MD ORDERS 08/23/2023 12:46 PM CDT - 08/23/2023 11:59 PM CDT [facility] [address] [place] [address] Votel, MD Lesly Cleary Isabelle, PT History of leg amputation (HC) 08/23/2023 Travel 08/17/2023 Telephone [facility] [address] [place] [address] GunnarteMelquiades lewis MD Home Care ([facility]) 08/08/2023 Telephone [facility] [address] [place] [address] GunnarteMelquiades lewis MD from Last 3 Months Immunizations Name Administration Dates Next Due COVID-19 vaccine (Moderna 100mcg/0.5mL) PF, MDV 03/09/2021 COVID-19 vaccine (Moderna 50 mcg/0.5mL) 12YO+ BIVALENT PF, MDV 03/29/2022 COVID-19 vaccine (Pfizer-Bio NTech 30mcg/0.3mL) PF, MDV 03/09/2021,07/24/2020,07/03/2020 COVID-19 vaccine Comirnaty (MilkyWay-BioNTech 30mcg/0.3mL) 12YO+ [id number] Formula PF, SDV, PFS 03/05/2023 Influenza Virus, [...] Brother kidney problems Heart Disease Father 1st CT at 65 d 77 yo CHF Diabetes Mother Heart Disease Mother d [address] Genetic Other There is a posi tive [...] Answer Date Recorded PHQ-2 TOTAL SCORE 0 11/06/2023 Social Connections Answer Date Recorded Frequency of [...] Sign Reading Time Taken Comments Blood Pressure 101/63 11/06/2023 10:30 AM CDT Pulse 72 11/06/2023 10:30 AM CDT Temperature 36.4 ??C (97.5 ??F) 11/06/2023 1 0:30 AM CDT Respiratory Rate 24 05/03/2023 7:04 AM PROCUREMENT INTERN Oxygen Saturation 99% 11/06/2023 10: 30 AM CDT Inhaled Oxygen Concentration - - Weight 71.7 kg (158 lb) 10/04/2023 9:26 AM CDT patient reported Height 175.3 cm (5' 9.02) 07/27/2023 1 1:51 AM CDT Body Mass Index 23.32 07/27/2023 11:51 AM CDT Plan of Treatment Upcoming Encounters Date Type Department Care Team (Late st Contact Info) Description 11/12/2023 1:00 PM CDT Appointment [facility] [address] [place] [address] Jasmin Hernández, PT [address] [place] [address] 11/13/2023 2:00 PM CDT Patient Outreach [address] [address] Priyanka Hummel, RN [address] [place] [address] 11/20/2023 1:45 PM CDT Appointment [facility] [address] [place] [address] Jasmin Hernández, PT [address] [place] [address] 11/22/2023 1:30 PM CDT Appointment [facility] [address] [place] [address] Farheen Puentes, PT [address] [place] [address] 11/26/2023 1:15 PM CDT Appointment [facility] [address] [place] [address] Jasmin Hernnádez, PT [address], [place] [address] 11/29/2023 1:00 PM CDT Appointment [facility] [address] [place] [address] Farheen Puentes, PT [address] [place] [address] 12/03/2023 1:45 PM CDT Appointment [facility] [address] [place] [address] Farheen Puentes, PT [address] [address] 12/06/2023 1:00 PM CDT Appointment [facility] [address] [place] [address] Farheen Puentes, PT [address] [place] [address] 12/10/2023 1:45 PM CDT Appointment [facility] [address] [place] [address] Farheen Puentes, PT [address] [address] 12/13/2023 1:45 PM CDT Appointment [facility] [address] [place] [address] Farheen Puentes, PT [address] [place] [address] 12/17/2023 1:00 PM CDT Appointment [facility] [address] [place] [address] Farheen Puentes, PT [address] [address] 12/20/2023 1:00 PM CDT Appointment [facility] [address] [place] [address] Farheen Puentes, PT [address] [address] 12/24/2023 1:00 PM CDT Appointment [facility] [address] [place] [address] Farheen Puentes, PT [address] [place] [address] 12/27/2023 1:00 PM CDT Appointment [facility] [address] [place] [address] Farheen Puentes, PT [address] [place] [address] 12/31/2023 1:00 PM CDT Appointment [facility] [address] [place] [address] Jasmin Hernández, PT [address] [place] [address] 01/02/2024 1:45 PM CDT Appointment [facility] [address] [place] [address] Farheen Puentes, PT [address] [place] [address] 01/08/2024 1:30 PM CDT Office Visit [address] [place] [address] [place] [address] Shade Manuel MD [address] [id number] Health Maintenance Due Date Last Done Comments COVID-19 vaccine series ( season) 2023 03/05/2023, 03/29/2022, 03/09/2021, Additional history exists Influenza for age 65+ 01/13/2024 03/05/2023 , 04/05/2022, 03/09/2021, Additional history exists BMI (ht and wt on same day) for age 18+ 07/26/2024 07/27/2023, 02/20/2023, 02/06/2023, Additional history exists Depression screening for age 12+ 11/05/2024 11/06/2023, 11/06/2023, 02/20/2023, Additional history exists Medicare Wellness for age 65+ 11/06/2024, 08/01/2022, 11/25/2019, Additional history exists Tetanus booster 01/21/2031 01/21/2021, 02/12, 03/06/2006, Additional history exists Pneumococcal series for age 65+ Completed 01/21/2015, 02/09/2011, 03/06/2006 Tdap Completed 01/21/2021 Zoster (shingles) series for age 50+ Completed 01/21/2021, 10/21/2020 Procedures Procedure Name Priority Date/Time Associated Diagnosis Comments CBC WITH AUTO DIFFERENTIAL Routine 11/06/2023 12:33 PM CDT HTN (hypertension) LIPID PANEL W REFLEX MEASURED LDL Routine 11/06/2023 12:33 PM CDT Hyperlipidemia LDL goal <70 ALT (SGPT) Routine 11/06/2023 12:33 PM CDT Hyperlipidemia LDL goal <70 TSH Routine 11/06/2023 12:33 PM CDT Other specified hypothyroidism CBC WITH AUTO DIFFERENTIAL Routine 11/06/2023 12:33 PM CDT HTN (hypertension) BASIC METABOLIC PANEL Routine 11/06/2023 12:33 PM CDT HTN (hypertension) HEMOGLOBIN A1C Routine 10/04/2023 9:44 AM CDT 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 RED BLOOD COUNT 3.98(L) 4.30 - 5.90 mil/cu mm 11/06/2023 12:[address] [facility] HEMOGLOBIN 12.0(L) 13.5 - 17.5 g/dL 11/06/2023 12:[address] [facility] HEMATOCRIT 36.7(L) 37.0 - 53.0 % 11/06/2023 12:[address] [facility] MCV 92 80 - 100 fL 11/06/2023 12:[address] [facility] MCH 30.2 26.0 - 34.0 pg 11/06/2023 12:[address] [facility] MCHC 32.7 32.0 - 36.0 g/dL 11/06/2023 12:[address] [facility] RDW 15.9(H) 11.5 - 15.5 % 11/06/2023 12:[address] [facility] PLATELET COUNT 273 140 - 440 thou/cu mm 11/06/2023 12:[address] [facility] MPV 9.6 6.5 - 11.0 fL 11/06/2023 12:[address] [facility] % NEUT 69.0 % 11/06/2023 12:[address] [facility] % LYMPH 18.8 % 11/06/2023 12:[address] [facility] % MONO 7.6 % 11/06/2023 12:[address] [facility] % EOS 3.8 % 11/06/2023 12:[address] [facility] % BASO 0.8 % 11/06/2023 12:[address] [facility] ABSOLUTE NEUTROPHILS 5.9 1.7 - 7.0 thou/cu mm 11/06/2023 12:[address] [facility] ABSOLUTE LYMPHOCYTES 1.6 0.9 - 2.9 thou/cu mm 11/06/2023 12:[address] [facility] ABSOLUTE MONOCYTES 0.6 <0.9 thou/cu mm 11/06/2023 12:[address] [facility] ABSOLUTE EOSINOPHILS 0.3 <0.5 thou/cu mm 11/06/2023 12:[address] [facility] ABSOLUTE BASOPHILS 0.1 <0.3 thou/cu mm 11/06/2023 12:[address] [facility] Blood BLOOD SPECIMEN / Unknown Butterfly / Unknown 11/06/2023 12:33 PM CDT 11/06/2023 12:37 PM CDT Melquiades Man MD HEMATOLOGY [facility] [address] [place] [address], * LIPID PANEL W REFLEX MEASURED LDL (11/06/2023 12:33 PM CDT) CHOLESTEROL,TOTAL 156 100 - 199 mg/dL 11/07/2023 1:57 AM CDT [facility] Comment: Cholesterol, Total Reference Ranges Desirable <200 mg/dL Borderline 200-239 mg/dL High >=240 mg/dL TRIGLYCERIDES 124 <150 mg/dL 11/07/2023 1:57 AM CDT [facility] HDL CHOLESTEROL 56 >40 mg/dL 1:57 AM CDT [facility] NON-HDL CHOLESTEROL 100 <145 mg/dl 11/07/2023 1:57 AM CDT [facility] CHOL/HDL RATIO 2.79 <4.50 11/07/2023 1:57 AM CDT [facility] LDL CHOLESTEROL 75 <=130 mg/dL 11/07/2023 1:57 AM CDT [facility] VLDL CHOLESTEROL 25 <=30 mg/dL 11/07/2023 1:57 AM CDT [facility] PROVIDER ORDERED STATUS RANDOM 11/07/2023 1:57 AM CDT [facility] Blood BLOOD SPECIMEN / Unknown Butterfly / Unknown 11/06/2023 12:33 PM CDT 11/06/2023 12:37 PM CDT Melquiades Man MD CHEMISTRY Performing Organization Address City/[facility] Co de Phone Number [facility] [address] [place] [address], [place] * TSH (11/06/2023 12:33 PM CDT) TSH 2.24 0.27 - 4.20 uIU/mL 11/07/2023 1:57 AM CDT [facility] Blood BLOOD SPECIMEN / Unknown Butterfly / Unknown 11/06/2023 12:33 PM CDT 11/06/2023 12:37 PM CDT Narrative [facility] - 11/07/2023 1:57 AM CDT In Adults, TSH values between 5.00 and 10.00 uIU/ml do not necessarily indicate the presence of Hypothyroidism. Correlation with clinical findings such as presence of goiter and/or Thyroperoxidase (TPO) Antibody may be helpful. For more information please refer to RONNIE 2004; 291: 228-238. Melquiades Man MD CHEMISTRY [facility] [address] [place] [id number], [place] * ALT (SGPT) (11/06/2023 12:33 PM CDT) ALT (SGPT) 21 10 - 50 IU/L 11/07/2023 1:57 AM CDT [facility] Blood BLOOD SPECIMEN / Unknown Butterfly / Unknown 11/06/2023 12:33 PM CDT 11/06/2023 12:37 PM CDT Melquiades Man MD CHEMISTRY [facility] [address] [place] [address], * (ABNORMAL) BASIC METABOLIC PANEL (11/06/2023 12:33 PM CDT) SODIUM 139 136 - 145 mmol/L 11/07/2023 1:57 AM CDT [facility] POTASSIUM 4.8 3.5 - 5.1 mmol/L 11/07/2023 1:57 AM T [facility] CHLORIDE 102 98 - 107 mmol/L 11/07/2023 1:57 AM T [facility] CO2,TOTAL 23 22 - 29 mmol/L 11/07/2023 1:57 AM T [facility] ANION GAP 14 5 - 18 11/07/2023 1:57 AM T [facility] GLUCOSE 137(H) 70 - 99 mg/dL 11/07/2023 1:57 AM T [facility] CALCIUM 10.0 8.8 - 10.2 mg/dL 11/07/2023 1:57 AM T [facility] BUN 42(H) 8 - 23 mg/dL 11/07/2023 1:57 AM T [facility] CREATININE 1.65(H) 0.70 - 1.20 mg/dL 11/07/2023 1:57 AM [facility] BUN/CREAT RATIO 25(H) 10 - 20 1:57 AM T [facility] eGFR 41(L) >90 mL/min/1.7 3m2 11/07/2023 1:57 AM T [facility] LABORATORY Comment:As of 2021, eG FR is calculated by the CKD-EPI creatinine equation without race adjustment. ??eGFR can be influenced by muscle mass, exercise, and diet. ??The reported eGFR is an estimation only and is only applicable if the renal function is stable. Blood BLOOD SPECIMEN / Unknown Butterfly / Unknown 11/06/2023 12:33 PM CDT 11/06/2023 12:37 PM CDT Melquiades Man MD CHEMISTRY Performing Organization Address [facility] Co de Phone Number [facility] [address] [place] [address], * (ABNORMAL) HEMOGLOBIN A1C MONITORING (POCT) (10/04/2023 9:44 AM CDT) HEMOGLOBIN A1C MONITORING (POCT) 11.6(H) <=6.4 % 10/04/2023 9:[address] [facility] Blood BLOOD SPECIMEN / Unknown Venipuncture / Unknown 10/04/2023 9:44 AM CDT 10/04/2023 9:44 AM CDT Narrative [facility] - 10/04/2023 9:53 AM CDT [...] Anemias, Splenectomy ? Rachel Sauceda DO CHEMISTRY Performing Organization Address [facility] Co de Phone Number [facility] [address] [place] [address], [place] [phone] from Last 3 Months Additional Health Concerns [...] 12 months since positive culture): resides in acute/[facility] care, receiving hemodialysis, has chronic open wounds/skin damage, has long-term percutaneous indwelling medical devices Exclusions for nares collection (if <12 months since positive culture) include all of the previous exclusions plus patients on antibiotics 7 days prior to collection 03/08/2023 05/31/2023 MDRO-GNB 04/26/2023 04/26/2023 Advance Directives Documents on File Type Date Recorded Patient Sex Offender Treatment Professional Expl anation POLST 03/26/2023 * Full Code [...] Code Status Discussion: Reviewed Preferences Care Teams [place] [employer] Relationship Specialty Start Date End Date GunnarteMelquiades lewis MD [address] [place] [address] PCP - General 11/20/05 Nurses, Advanced Heart Failure [address] [place] [id number] Advanced Heart Failure/Transplant Card 01/24/23 Shade Manuel MD [address] [place] [address] [place] [address] Cardiovascular Disease 01/24/23
== END 2023-11-07 09:04 | disposition home or self-care (01) ==
LOC: WOUND 09:03
PROVIDERS: PCP Family Medicine; Visit Provider Surgery
DX: E11.621 Type 2 diabetes mellitus with foot ulcer (principal); L97.422 Non-pressure chronic ulcer of left heel and midfoot with fat layer exposed; Z79.4 Long term (current) use of insulin; Z79.84 Long term (current) use of oral hypoglycemic drugs
CPT/HCPCS: 97597

== ENCOUNTER 2023-11-14 09:04 | Outpatient (CLI) | payer MEDICARE, BC, SELFPAY ==
--- OUTSIDE RECORDS SUMMARY | 2023-11-14 09:08 | XMS_ITS | Encounter Summary ---
Author Name [facility] [place] Organization [facility] [place] Address [address] [place] [address] Care Team Providers Care Campaign Fundraiser Name Role Phone JIMENEZ CHESTER Primary Care Provider Unavailabl e Insurance Providers: All historical and current Section Date Range: From patient's date of to the date document was created. This section includes the names of all active insurance providers for the patient. Insurance Provider Type of Coverage Plan Name Start of Policy Coverage End of Policy Coverage Group Number Member ID Insurance Provider's Telephone Number Policy Cherry's Name Patient's Relationship to Policy Cherry [facility] ([facility]) MEDICARE ADVANTAGE [facility] (WNR) May 14, 2020 [id number] [phone] PITER CASAS ERD PATIENT Selected Encounter This section includes the information on record at [place] for the Encounter. Date/Time Encounter Type Encounter Description Reason Provider Source Dec 28, 2022 04:27 PM Outpatient Encounter ADMIN PAT ACTIVTIES (MASNONCT) MIYA JAMESON Encounter Template Text not used by [place] Plan of Treatment: Future Appointments (+ 6 [...] 20 appointments. The data comes from all [place] treatment facilities. Appointment Date/Time Appointment Type Appointme nt Facility Name Jan 22, 2023 07:00 AM AM[place]ORY [place]ONE [place] [facility] Jan 22, 2023 07:01 AM [place] [facility] Jan 23, 2023 01:00 PM AMBULATORY - MEDICINE [facility] ([facility]) Feb 15, 2023 12:45 PM AMBULATORY - NONE [place] [facility] Feb 20, 2023 07:01 AM AM[place]ORY [place] [facility] Feb 23, 2023 11:00 AM AMBULATORY - MEDICINE [facility] ([facility]) Mar 09, 2023 08:41 PM AMBULATORY [place]ONE [place] [facility] Apr 12, 2023 11:56 PM AM[place]ORY - [place]ONE [place] [facility] Apr 16, 2023 09:26 PM AM[place]ORY [place] [facility] May 01, 2023 06:28 PM [place]ORY - [place]ONE [place] [facility] Lab Results: +/- 30 days of [...] Range Comment Jan 23, 2023 02:14 PM [facility] ([facility]) BNP Specimen Type: PLASMA No comment entered. Ordering Provider: JIMENEZ CHESTER Report Released Date/Time: Jan 23, 2023 02:00 PM Reporting Lab: [facility] [id number] Performing Lab: [facility] [id number] BNP 1549 pg/mL H <99 Jan 23, 2023 02:14 PM VANCE ([facility]) BASIC METABOLIC PANEL+MG Specimen Type: PLASMA No comment entered. Ordering Provider: JIMENEZ CHESTER Report Released Date/Time: Jan 23, 2023 02:00 PM Reporting Lab: [facility] [id number] Performing Lab: [facility] [id number] CREATININE 1.2 mg/dL 0.7-1.2 UREA NITROGEN 35 mg/dL H 8-26 GLUCOSE 239 mg/dL H 70-100 SODIUM 140 mmol/L 136-145 POTASSIUM 5.1 mmol/L 3.5-5.1 CHLORIDE 109 mmol/L H 98-107 CO2 21 mmol/L L 22-29 CALCIUM 9.4 mg/dL 8.4-10.2 MAGNESIUM 1.7 mg/dL 1.6-2.6 ANION GAP 10 mmol/L 5-15 .CREAT EGFR(CKD-EPI) 61 >60 Encounter Notes: All associated encounter notes This [...] By: 01/11/2023 11:12 /riccardo/ Lisa Alcantar RN [facility] --- Original Document --- 12/27/22 [facility] PRESENTING CARE COORD PLAN NOTE: Emergency Notification Intake Date Presenting to the Facility: Dec Method of Contact: Notified from [facility] worklist Notification ID: [id number] [facility] Referral #: [facility] Name: Hospital: [facility], Address: City: [place] State: [place] Zip Code: Phone : [facility] Point of Contact: Name: DEPT Chief complaint: hyperkalemia and acute decompensated HFrE Primary Diagnosis: Disposition Admitted Route of Admission: Date of Admission: Dec Admitting Diagnosis: I50.9 Community Care Provider: Confirm Level of Care: Closed - Approved for 170 /riccardo/ CARLA GUAJARDO ORTHOPEDIC SURGEON Signed: 12/28/2022 16:36 Receipt Acknowledged By: 12/29/2022 12:35 /riccardo/ Miya Jameson RN LISA MSN account liaison hospice Physician Industrial 12/29/2022 ADDENDUM STATUS: COMPLETED Admitted to: [facility] Admission date: 12/27/22 Current level of care: Critical Care Chief complaint: hyperkalemia Diagnosis: Hyperkalemia Assessment/Plan: # Hyperkalemia # ALEX - Likely due to decompensated HFrEF, possible contribution from lisinopril - Hold travel pta lisinopril - Repeat K - Maintain map>65, avoid nephrotoxins - Nephrology consult if worsening # Recent NSTEMI # Acute decompensated HFrEF # LADAN thrombus # Afib # CAD # HTN - Prior EF 30%. C SOFTWARE DEVELOPER apixaban, clopidogrel, imdur, lisinopril, metoprolol - Repeat TTE - Start heparin gtt - Continue apixaban, clopidogrel, ASA, metoprolol. Hold imdur and lisinopril for now. - Cardiology consult # DM2 - C SOFTWARE DEVELOPER glipizide, insulin - SSI Transfer to [place] assessment - There are currently no beds available for transfer consideration Medical records uploaded to [facility]. This [facility] RN will follow Perry during this hospitalization. /riccardo/ Miya Jameson RN, MBA MSN account liaison hospice Physician Industrial Signed: 12/29/2022 12:38 Receipt Acknowledged By: 12/29/2022 13:52 /riccardo/ Lisa Alcantar RN [facility] 12/27/2022 ADDENDUM STATUS: COMPLETED [facility] Scanned Document - Addendum. Admit H&P [facility] 12/27/22 SCANNED DOCUMENT SIGNATURE NOT REQUIRED Electronically Filed: 12/29/2022 by: Miya ESPINOZAA MSN account liaison hospice Physician Industrial 12/29/2022 ADDENDUM STATUS: COMPLETED Lab Director will await discharge notification to f/u with . /riccardo/ Lisa Alcantar RN [facility] Signed: 12/29/2022 13:52 01/02/2023 ADDENDUM STATUS: COMPLETED CONTINUED STAY REVIEW Contact Date: 01/02/23 Date of Admit: 12/27/22 Method of Contact: [facility] Inpatient Level of Care Required: Acute Care MD Progress Note/Plan of Care 01/01/23: # Acute decompensated HFrEF Assessment: baseline creatinine ~ Prior EF 30%. Repeat ECHO with EF 10-20%. Seed Cleaner and internal corrosion specialist involved in volume removal. Diuresed with Lasix drip and subsequently discontinued after felt to be euvolemic/hypotensive by advanced heart failure. Plans for RHC +/- viability study pending revascularization plans. Plan: - NPO for RHC today - Advanced HF following - continue Toprol - follow urine output and daily BMP - follow weight Discharge Planning: Anticipate DC on 01/02/23 Transfer to [place] assessment - There are not beds currently available for transfer consideration. /riccardo/ Miya ESPINOZAA MSN account liaison hospice Physician Industrial Signed: 01/02/2023 11:56 01/04/2023 ADDENDUM STATUS: COMPLETED CONTINUED STAY REVIEW Contact Date: 01/04/23 Date of Admit: 12/27/22 Method of Contact: [facility] Inpatient Level of Care Required: Acute Care Progress Note/Plan of Care 01/03/23: # Acute [...] Discharge Planning: anticipate DC 01/04/23 Transfer to [place] assessment - There are not beds currently available for transfer consideration. /riccardo/ Miya ESPINOZAA MSN account liaison hospice Physician Industrial Signed: 01/04/2023 08:19 01/08/2023 ADDENDUM STATUS: COMPLETED CONTINUED STAY REVIEW Contact Date: 01/08/23 Date of Admit: 12/27/22 Method of Contact: [facility] Inpatient Level of Care Required: Acute Care [...] (minus diabetic meds for endocrine) Transfer to [place] assessment - There are not beds currently available for transfer consideration. /riccardo/ Miya ESPINOZAA MSN account liaison hospice Physician Industrial Signed: 01/08/2023 08:53 01/10/2023 ADDENDUM STATUS: COMPLETED CLINICAL CARE COORDINATION INFORMATION Hospital Discharge note Hospital: [facility] Admit date: 12/27/22 Discharge date: 01/08/23 Level of care: Acute Care Discharge diagnosis: Acute decompensated HFrEF Disposition: [facility] Hospital records uploaded to [email or web address]. Please review for any additional follow-up needed. DC Summary not available at this time, will upload to [facility] when complete /riccardo/ Miya Jameson RN LISA MSN account liaison hospice Physician Industrial Signed: 01/10/2023 13:35 Receipt Acknowledged By: 01/10/2023 20:40 /es/ JIMENEZ CHESTER MD PHYSICIAN 01/11/2023 08:33 /riccardo/ Lisa Alcantar RN [facility] 01/10/2023 ADDENDUM STATUS: COMPLETED Phoned Perry. No answer. Hippa compliant VM left that script writer will call back at a later time. Left [place] contact #: [phone] /nallely Alcantar RN [facility] Signed: 01/10/2023 13:47 01/11/2023 ADDENDUM STATUS: COMPLETED See Jan 11 CCC:Scheduling administration note and addenda for more f/u information /nallely Alcantar RN [facility] Signed: 01/11/2023 11:14 JIMENEZ CHESTER [facility] Jan 10, 2023 01:33 PM ADDENDUM: LOCAL TITLE: Addendum STANDARD TITLE: ADDENDUM DATE OF NOTE: JAN 10, 2023@13:33:37 ENTRY DATE: JAN 10, 2023@13:33:39 AUTHOR: MIYA JAMESON COSIGNER: URGENCY: STATUS: COMPLETED CLINICAL CARE COORDINATION INFORMATION Hospital Discharge note Hospital: [facility] Admit date: 12/27/22 Discharge date: 01/08/23 Level of care: Acute Care Discharge diagnosis: Acute decompensated HFrEF Disposition: [facility] Hospital records uploaded to [facility]. Please review for any additional follow-up needed. DC Summary not available at this time, will upload to [employer] when complete /riccardo/ Miya Jameson RN LISA MSN account liaison hospice Physician Industrial Signed: 01/10/2023 13:35 Receipt Acknowledged By: 01/10/2023 20:40 /riccardo/ JIMENEZ CHESTER MD PHYSICIAN 01/11/2023 08:33 /es/ Lisa Alcantar RN [facility] --- Original Document --- 12/27/22 [facility] PRESENTING CARE COORD PLAN NOTE: Emergency Notification Intake Date Presenting to the Facility: Dec Method of Contact: Notified from [facility] worklist Notification ID: [id number] [facility] Referral #: [facility] Name: Hospital: [facility], Address: City: [place] State: [place] Zip Code: Phone : [facility] Point of Contact: Name: DEPT Chief complaint: hyperkalemia and acute decompensated HFrE Primary Diagnosis: Disposition Admitted Route of Admission: Date of Admission: Dec Admitting Diagnosis: I50.9 Community Care Provider: Confirm Level of Care: Closed - Approved for 1702 /riccardo/ CARLA GUAJARDO ORTHOPEDIC SURGEON Signed: 12/28/2022 16:36 Receipt Acknowledged By: 12/29/2022 12:35 /riccardo/ Miya Jameson RN LISA MSN account liaison hospice Physician Industrial 12/29/2022 ADDENDUM STATUS: COMPLETED Admitted to: [facility] Admission date: 12/27/22 Current level of care: Critical Care Chief complaint: hyperkalemia Diagnosis: Hyperkalemia Assessment/Plan: # Hyperkalemia # ALEX - Likely due to decompensated HFrEF, possible contribution from lisinopril - Hold travel pta lisinopril - Repeat K - Maintain map>65, avoid nephrotoxins - Nephrology consult if worsening # Recent NSTEMI # Acute decompensated HFrEF # LADAN thrombus # Afib # CAD # HTN - Prior EF 30%. C SOFTWARE DEVELOPER apixaban, clopidogrel, imdur, lisinopril, metoprolol - Repeat TTE - Start heparin gtt - Continue apixaban, clopidogrel, ASA, metoprolol. Hold imdur and lisinopril for now. - Cardiology consult # DM2 - C SOFTWARE DEVELOPER glipizide, insulin - SSI Transfer to [place] assessment - There are currently no beds available for transfer consideration Medical records uploaded to [facility]. This [facility] RN will follow Perry during this hospitalization. /riccardo/ Miya ESPINOZAA MSN account liaison hospice Physician Industrial Signed: 12/29/2022 12:38 Receipt Acknowledged By: 12/29/2022 13:52 /riccardo/ Lisa Alcantar RN [facility] 12/27/2022 ADDENDUM STATUS: COMPLETED [facility] Scanned Document - Addendum. Admit [facility] 12/27/22 SCANNED DOCUMENT SIGNATURE NOT REQUIRED Electronically Filed: 12/29/2022 by: Miya ESPINOZAA MSN account liaison hospice Physician Industrial 12/29/2022 ADDENDUM STATUS: COMPLETED Lab Director will await discharge notification to f/u with . /riccardo/ Lisa Alcantar RN [facility] Signed: 12/29/2022 13:52 01/02/2023 ADDENDUM STATUS: COMPLETED CONTINUED STAY REVIEW Contact Date: 01/02/23 Date of Admit: 12/27/22 Method of Contact: [facility] Inpatient Level of Care Required: Acute Care MD Progress Note/Plan of Care 01/01/23: # Acute decompensated HFrEF Assessment: baseline creatinine ~ Prior EF 30%. Repeat ECHO with EF 10-20%. Seed Cleaner and internal corrosion specialist involved in volume removal. Diuresed with Lasix drip and subsequently discontinued after felt to be euvolemic/hypotensive by advanced heart failure. Plans for RHC +/- viability study pending revascularization plans. Plan: - NPO for RHC today - Advanced HF following - continue Toprol - follow urine output and daily BMP - follow weight Discharge Planning: Anticipate DC on 01/02/23 Transfer to [place] assessment - There are not beds currently available for transfer consideration. /riccardo/ Miya ESPINOZAA MSN account liaison hospice Physician Industrial Signed: 01/02/2023 11:56 01/04/2023 ADDENDUM STATUS: COMPLETED CONTINUED STAY REVIEW Contact Date: 01/04/23 Date of Admit: 12/27/22 Method of Contact: [facility] Inpatient Level of Care Required: Acute Care [...] Discharge Planning: anticipate DC 01/04/23 Transfer to [place] assessment - There are not beds currently available for transfer consideration. /riccardo/ Miya ESPINOZAA MSN account liaison hospice Physician Industrial Signed: 01/04/2023 08:19 01/08/2023 ADDENDUM STATUS: COMPLETED CONTINUED STAY REVIEW Contact Date: 01/08/23 Date of Admit: 12/27/22 Method of Contact: [facility] Inpatient Level of Care Required: Acute Care [...] (minus diabetic meds for endocrine) Transfer to [place] assessment - There are not beds currently available for transfer consideration. /riccardo/ Miya Jameson RN LISA MSN account liaison hospice Physician Industrial Signed: 01/08/2023 08:53 01/10/2023 ADDENDUM STATUS: COMPLETED Phoned . No answer. Hippa compliant VM left that script writer will call back at a later time. Left [place] contact #: [phone] /riccardo/ Lisa Alcantar RN [facility] Signed: 01/10/2023 13:47 01/10/2023 ADDENDUM STATUS: COMPLETED Please contact /care center to see how he is doing. Does he need any follow-up care with the PACT? Thanks /riccardo/ JIMENEZ CHESTER MD PHYSICIAN Signed: 01/10/2023 20:41 Receipt Acknowledged By: * AWAITING SIGNATURE * LISA ALCANTAR SARA R [facility] Dec 29, 2022 12:36 PM ADDENDUM: LOCAL TITLE: Addendum STANDARD TITLE: ADDENDUM DATE OF NOTE: DEC 29, 2022@12:36:07 ENTRY DATE: DEC 29, 2022@12:36:08 AUTHOR: MIYA JAMESON EXP COSIGNER: URGENCY: STATUS: COMPLETED Admitted to: [facility] Admission date: 12/27/22 Current level of care: Critical Care Chief complaint: hyperkalemia Diagnosis: Hyperkalemia Assessment/Plan: # Hyperkalemia # ALEX - Likely due to decompensated HFrEF, possible contribution from lisinopril - Hold travel pta lisinopril - Repeat K - Maintain map>65, avoid nephrotoxins - Nephrology consult if worsening # Recent NSTEMI # Acute decompensated HFrEF # LADAN thrombus # Afib # CAD # HTN - Prior EF 30%. C SOFTWARE DEVELOPER apixaban, clopidogrel, imdur, lisinopril, metoprolol - Repeat TTE - Start heparin gtt - Continue apixaban, clopidogrel, ASA, metoprolol. Hold imdur and lisinopril for now. - Cardiology consult # DM2 - C SOFTWARE DEVELOPER glipizide, insulin - SSI Transfer to [place] assessment - There are currently no beds available for transfer consideration Medical records uploaded to [facility]. This [facility] RN will follow Perry during this hospitalization. /riccardo/ Miya ESPINOZAA MSN account liaison hospice Physician Industrial Signed: 12/29/2022 12:38 Receipt Acknowledged By: 12/29/2022 13:52 /riccardo/ Lisa Alcantar RN [facility] --- Original Document --- 12/27/22 [facility] PRESENTING CARE COORD PLAN NOTE: Emergency Notification Intake Date Presenting to the Facility: Dec Method of Contact: Notified from [employer] worklist Notification ID: [id number] [facility] Referral #: [facility] Name: Hospital: [facility], Address: City: [place] State: [place] Zip Code: Phone : [facility] Point of Contact: Name: [facility] Chief complaint: hyperkalemia and acute decompensated HFrE Primary Diagnosis: Disposition Admitted Route of Admission: Date of Admission: Dec Admitting Diagnosis: I50.9 Community Care Provider: Confirm Level of Care: Closed - Approved for 1702 /riccardo/ CARLA GUAJARDO ORTHOPEDIC SURGEON Signed: 12/28/2022 16:36 Receipt Acknowledged By: 12/29/2022 12:35 /riccardo/ Miya ESPINOZAA MSN account liaison hospice Physician Industrial 12/27/2022 ADDENDUM STATUS: COMPLETED [facility] Scanned Document - Addendum. Admit [facility] 12/27/22 SCANNED DOCUMENT SIGNATURE NOT REQUIRED Electronically Filed: 12/29/2022 by: Miya Jameson RN LISA MSN account liaison hospice Physician Industrial 12/29/2022 ADDENDUM STATUS: COMPLETED Lab Director will await discharge notification to f/u with . /riccardo/ Lisa Alcantar RN [facility] Signed: 12/29/2022 13:52 MIYA JAMESON [facility] Dec 27, 2022 10:15 PM NONVA NOTE: LOCAL TITLE: [facility] PRESENTING CARE COORD PLAN STANDARD TITLE: NONVA NOTE DATE OF NOTE: DEC 27, 2022@22:15 ENTRY DATE: DEC 28, 2022@16:29:29 AUTHOR: CARLA GUAJARDO EXP COSIGNER: URGENCY: STATUS: COMPLETED [facility] PRESENTING CARE COORD PLAN NOTE Has ADDENDA Emergency Notification Intake Date Presenting to the Facility: Dec Method of Contact: Notified from [facility] worklist Notification ID: [id number] [facility] Referral #: [facility] Name: Hospital: [facility], Address: City: [place] State: [place] Zip Code: Phone : [facility] Facility Point of Contact: Name: [facility] Chief complaint: hyperkalemia and acute decompensated HFrE Primary Diagnosis: Disposition Admitted Route of Admission: Date of Admission: Dec Admitting Diagnosis: I50.9 Community Care Provider: Confirm Level of Care: Closed - Approved for 1703 /nallely GUAJARDO ORTHOPEDIC SURGEON Signed: 12/28/2022 16:36 Receipt Acknowledged By: 12/29/2022 12:35 /riccardo/ Miya ESPINOZAA MSN account liaison hospice Physician Industrial 12/29/2022 ADDENDUM STATUS: COMPLETED Admitted to: [facility] Admission date: 12/27/22 Current level of care: Critical Care Chief complaint: hyperkalemia Diagnosis: Hyperkalemia Assessment/Plan: # Hyperkalemia # ALEX - Likely due to decompensated HFrEF, possible contribution from lisinopril - Hold travel pta lisinopril - Repeat K - Maintain map>65, avoid nephrotoxins - Nephrology consult if worsening # Recent NSTEMI # Acute decompensated HFrEF # LADAN thrombus # Afib # CAD # HTN - Prior EF 30%. C SOFTWARE DEVELOPER apixaban, clopidogrel, imdur, lisinopril, metoprolol - Repeat TTE - Start heparin gtt - Continue apixaban, clopidogrel, ASA, metoprolol. Hold imdur and lisinopril for now. - Cardiology consult # DM2 - C SOFTWARE DEVELOPER glipizide, insulin - SSI Transfer to [place] assessment - There are currently no beds available for transfer consideration Medical records uploaded to [facility]. This [facility] RN will follow during this hospitalization. /riccardo/ Miya ESPINOZAA MSN account liaison hospice Physician Industrial Signed: 12/29/2022 12:38 Receipt Acknowledged By: 12/29/2022 13:52 /riccardo/ Lisa Alcantar RN [facility] 12/27/2022 ADDENDUM STATUS: COMPLETED [facility] Scanned Document - Addendum. Admit [facility] 12/27/22 SCANNED DOCUMENT SIGNATURE NOT REQUIRED Electronically Filed: 12/29/2022 by: Miya Jameson RN, MBA MSN account liaison hospice Physician Industrial 12/29/2022 ADDENDUM STATUS: COMPLETED Lab Director will await discharge notification to f/u with . /riccardo/ Lisa Alcantar RN [facility] Signed: 12/29/2022 13:52 01/02/2023 ADDENDUM STATUS: COMPLETED CONTINUED STAY REVIEW Contact Date: 01/02/23 Date of Admit: 12/27/22 Method of Contact: [facility] Inpatient Level of Care Required: Acute Care MD Progress Note/Plan of Care 01/01/23: # Acute decompensated HFrEF Assessment: baseline creatinine ~ Prior EF 30%. Repeat ECHO with EF 10-20%. Seed Cleaner and internal corrosion specialist involved in volume removal. Diuresed with Lasix drip and subsequently discontinued after felt to be euvolemic/hypotensive by advanced heart failure. Plans for RHC +/- viability study pending revascularization plans. Plan: - NPO for RHC today - Advanced HF following - continue Toprol - follow urine output and daily BMP - follow weight Discharge Planning: Anticipate DC on 01/02/23 Transfer to [place] assessment - There are not beds currently available for transfer consideration. /riccardo/ Miya ESPINOZAA MSN account liaison hospice Physician Industrial Signed: 01/02/2023 11:56 01/04/2023 ADDENDUM STATUS: COMPLETED CONTINUED STAY REVIEW Contact Date: 01/04/23 Date of Admit: 12/27/22 Method of Contact: [facility] Inpatient Level of Care Required: Acute Care [...] Discharge Planning: anticipate DC 01/04/23 Transfer to [place] assessment - There are not beds currently available for transfer consideration. /riccardo/ Miya Jameson RN LISA MSN account liaison hospice Physician Industrial Signed: 01/04/2023 08:19 01/08/2023 ADDENDUM STATUS: COMPLETED CONTINUED STAY REVIEW Contact Date: 01/08/23 Date of Admit: 12/27/22 Method of Contact: [facility] Inpatient Level of Care Required: Acute Care [...] (minus diabetic meds for endocrine) Transfer to [place] assessment - There are not beds currently available for transfer consideration. /riccardo/ Miya ESPINOZAA MSN account liaison hospice Physician Industrial Signed: 01/08/2023 08:53 01/10/2023 ADDENDUM STATUS: COMPLETED CLINICAL CARE COORDINATION INFORMATION Hospital Discharge note Hospital: [facility] Admit date: 12/27/22 Discharge date: 01/08/23 Level of care: Acute Care Discharge diagnosis: Acute decompensated HFrEF Disposition: [facility] Hospital records uploaded to [employer]. Please review for any additional follow-up needed. DC Summary not available at this time, will upload to [employer] when complete /riccardo/ Miya ESPINOZAA MSN account liaison hospice Physician Industrial Signed: 01/10/2023 13:35 Receipt Acknowledged By: 01/10/2023 20:40 /riccardo/ JIMENEZ CHESTER MD PHYSICIAN 01/11/2023 08:33 /riccardo/ Lisa Alcantar RN [facility] 01/10/2023 ADDENDUM STATUS: COMPLETED Phoned Perry. No answer. Hippa compliant VM left that script writer will call back at a later time. Left [place] contact #: [phone] /riccardo/ Lisa Alcantar RN [facility] Signed: 01/10/2023 13:47 01/10/2023 ADDENDUM STATUS: COMPLETED Please contact /care center to see how he is doing. Does he need any follow-up care with the PACT? Thanks /riccardo/ JIMENEZ CHESTER MD PHYSICIAN Signed: 01/10/2023 20:41 Receipt Acknowledged By: 01/11/2023 11:12 /nallely Alcantar RN [facility] 01/11/2023 ADDENDUM STATUS: COMPLETED See Jan 11 CCC:Scheduling administration note and addenda for more f/u information /nallely Alcantar RN [facility] Signed: 01/11/2023 11:14 01/12/2023 ADDENDUM STATUS: COMPLETED Full DC Summary remains unavailable in [facility] /nallely ESPINOZAA [employer] [facility] liaison [facility] Physician Industrial Signed: 01/12/2023 10:32 CARLA GUAJARDO [facility]
--- OUTSIDE RECORDS SUMMARY | 2023-11-14 09:08 | XMS_ITS | Continuity of Care Document ---
Author Name [facility] Organization [facility] Care Team Providers Care Kiln Drawer Name Role Phone [facility] Unavailable Unavailable Problems Combined list of problems from Department of Defense and Veterans Affairs facilities. It does not include entries that were removed or entered in error. Problem Status Onset Date Problem Type Date of Resolution Comments Source Exposure to potentially hazardous substance ([facility] [id number]) Active 07/20/19 24 Condition Jul 20, 2023 Entered By: MECHELLE DEMPSEY Comment: [facility] Documentation Initiative [facility] CAD - Coronary Artery Disease ([facility] [id number]) Active Condition [place] ([facility]) CHF - Congestive Heart Failure ([facility] [id number]) Active Condition [place] ([facility]) Diabetes Mellitus Type 2 ([facility] [id number]) Active Condition [place] ([facility]) History of amputation of right leg through tibia and fibula Active Condition [facility] ([facility]) HTN - Hypertension ([facility] [id number]) Active Condition [place] ([facility]) Hyperlipidemia ([facility] [id number]) Active Condition [facility]) Hypothyroidism ([facility] [id number]) Active Condition [place] ([facility]) Long-term current use of insulin Active Condition [place] ([facility]) Peripheral neuropathy due to type 2 diabetes mellitus Active Condition [place] ([facility]) Diagnosis: ICD-10-CM E11.9 Type 2 diabetes mellitus without complications Active Diagnosis [place] ([facility]) Diagnosis: ICD-10-CM H90.3 Sensorineural hearing loss, bilateral Active Diagnosis [facility] Diagnosis: ICD-10-CM I50.9 Heart failure, unspecified Active Diagnosis [place] ([facility]) Diagnosis: ICD-10-CM R26.89 Other abnormalities of gait and mobility Active Diagnosis [facility] ([facility]) Diagnosis: ICD-10-CM Z00.00 Encntr for general adult medical exam w/o abnormal findings Active Diagnosis [facility] ([facility]) Medications Combined list of outpatient medications from Department of Defense and Veterans Affairs facilities.Medications provided include 1) outpatient medications from the last 15 months, and 2) patient-reported medications. Medication Details Route Status Patient Instructions Prescription Expires Prescription Number Last Dispense Date Ordering Provider Order Date Order Qty Source APIXABAN 5MG TAB APIXABAN 5MG TAB Non-VA TAKE ONE TABLET BY MOUTH EVERY 12 HOURS TO PREVENT BLOOD CLOTS Dec 25, 2022 Non-VA Document ed by: JERMAINE CHESTER Document ed at: [place] [facility] ([facility]) ORAL ACTIVE RYAN CHESTER 2022 [place] [facility] ([facility]) ATORVASTATI N CA 40MG TAB ATORVAST ATIN CA 40MG TAB Non-VA TAKE ONE TABLET BY MOUTH DAILY FOR CHOLESTE ROL Jan 23, 2023 Non-VA Document ed by: JERMAINE CHESTER Document ed at: [place] [facility] ([facility]) ORAL ACTIVE RYAN CHESTER 2022 [place] [facility] ([facility]) CADEXOMER IODINE 0.9% GEL,TOP CADEXOME R IODINE 0.9% GEL,TOP Active APPLY THIN LAYER TOPICALL Y DIRECTED FOLLOWIN G WOUND CARE ORDERS Feb 15, 2023 40 Feb 16, 2024 [id number] Feb 20, 2023 [facility] TOPICA L ACTIVE 02/16/2024 [id number] KATHY MURPHY 2022 40 [facility] [place] [facility] CLOPIDOGREL BISULFATE 75MG TAB CLOPIDOG REL BISULFAT E 75MG TAB Non-VA TAKE ONE TABLET BY MOUTH DAILY FOR HEART DISEASE Dec 25, 2022 Non-VA Document ed by: JERMAINE CHESTER Document ed at: [facility]) ORAL ACTIVE RYAN CHESTER 2022 [place] [facility] ([facility]) CONTOUR NEXT (GLUCOSE) TEST STRIP CONTOUR NEXT (GLUCOSE ) TEST STRIP Non-VA USE 1 STRIP THREE TIMES A DAY Oct 22, 2020 Non-VA Document ed by: JERMAINE CHESTER Document ed at: [facility] ([facility]) NOT APPLIC ABLE ACTIVE RYAN CHESTER 2020 [facility] ([facility]) DAPAGLIFLOZ IN 10MG TAB DAPAGLIF LOZIN 10MG TAB Non-VA TAKE ONE TABLET BY MOUTH DAILY FOR HEART FAILURE and diabetes Nov 08, 2023 Non-VA Document ed by: JERMAINE CHESTER Document ed at: [facility] [facility] ([facility]) ORAL ACTIVE RYAN CHESTER 2023 [place] [facility] ([facility]) FUROSEMIDE 20MG TAB FUROSEMI DE 20MG TAB Non-VA TAKE ONE TABLET BY MOUTH DAILY FOR EXCESS FLUID Nov 08, 2023 Non-VA Document ed by: JERMAINE CHESTER Document ed at: [place] [facility] ([facility]) ORAL ACTIVE RYAN CHESTER 2023 [place] [facility] ([facility]) INSULIN GLARGINE 300UNITS/ML 3ML PEN INJ INSULIN GLARGINE 300UNITS /ML 3ML PEN INJ Non-VA INJECT 34 UNITS UNDER THE SKIN DAILY FOR DIABETES Nov 08, 2023 Non-VA Document ed by: JERMAINE CHESTER Document ed at: [facility] ([facility]) SUBCUT ANEOUS ACTIVE RYAN CHESTER 2023 [place] [facility] ([facility]) INSULIN,ASP ART,HUMAN (EQV-NOVOLO G) 100 UNIT/ML,FLE XPEN,3ML INSULIN, ASPART,H UMAN (EQV-NOV OLOG) 100 UNIT/ML, FLEXPEN, 3ML Active INJECT 8 UNITS UNDER THE SKIN BEFORE MEALS SLIDING SCALE 2 UNITS FOR BLOOD SUGARS 150-199, 4 UNITS 200-249, 6 UNITS 250-299, 8 UNITS 300-349, 10 UNITS FOR 350-390, AND 12 UNITS FOR GREATER THAN 400 UNITS AND CALL MD. MAY USE UP TO 60 UNITS/DA Y SLIDING SCALE 2 UNITS FOR BLOOD SUGARS 150-199, 4 UNITS 200-249, 6 UNITS 250-299, 8 UNITS 300-349, 10 UNITS FOR 350-390, AND 12 UNITS FOR GREATER THAN 400 UNITS AND CALL MD. MAY USE UP TO 60 UNITS/DA Y FOR DIABETES Nov 08, 2023 10 Nov 08, 2024 [id number] Nov 09, 2023 JERMAINE CHESTER [facility] ([facility]) SUBCUT ANEOUS ACTIVE 11/08/2024 [id number] RYAN CHESTER 2023 10 [facility] ([facility]) LEVOTHYROXI NE NA 75MCG TAB (SYNTHROID) LEVOTHYR OXINE NA 75MCG TAB (SYNTHRO ID) Non-VA TAKE ONE TABLET BY MOUTH EVERY DAY FOR THYROID Nov 08, 2023 Non-VA Document ed by: JERMAINE CHESTER Document ed at: [facility] [facility] ([facility]) ORAL ACTIVE RYAN CHESTER 2023 [place] ([facility]) METOPROLOL SUCCINATE TAB,SA METOPROL OL SUCCINAT E TAB,SA Non-VA TAKE 12.5 MG BY MOUTH TWICE A DAY FOR BLOOD PRESSURE Nov 08, 2023 Non-VA Document ed by: JERMAINE CHESTER Document ed at: [facility] ([facility]) ORAL ACTIVE RYAN CHESTER 2023 [place] ([facility]) MIRTAZAPINE TAB MIRTAZAP INE TAB Non-VA TAKE 7.5 MG BY MOUTH AT BEDTIME FOR MOOD Nov 08, 2023 Non-VA Document ed by: JERMAINE CHESTER Document ed at: [facility] [facility] ([facility]) ORAL ACTIVE RYAN CHESTER 2023 [place] ([facility]) NITROGLYCER IN 0.4MG TAB,SUBLING UAL NITROGLY CERIN 0.4MG TAB,SUBL INGUAL Non-VA DISSOLVE ONE TABLET UNDER THE TONGUE PRN Oct 22, 2020 Non-VA Document ed by: JERMAINE CHESTER Document ed at: [facility] [facility] ([facility]) SUBLIN GUAL ACTIVE RYAN CHESTER 2020 [place] ([facility]) NON VA MED NOT LISTED NON VA MED NOT LISTED Non-VA USE ACCU-GRACIE CK ALEJO PLUS METER THREE TIMES A DAY Oct 22, 2020 Non-VA Document ed by: JERMAINE CHESTER Document ed at: [facility] ([facility]) NOT APPLIC ABLE ACTIVE RYAN CHESTER 2020 [place] [facility] ([facility]) SHIRA FINE 32 DISPOSABLE NEEDLE SHIRA FINE 32 DISPOSAB LE NEEDLE Non-VA USE 1 NEEDLE UNDER THE SKIN FOUR TIMES A DAY Oct 22, 2020 Non-VA Document ed by: JERMAINE CHESTER Document ed at: [facility] ([facility]) SUBCUT ANEOUS ACTIVE RYAN CHESTER 2020 [place] [facility] ([facility]) PANTOPRAZOL E NA 40MG TAB,EC PANTOPRA ZOLE NA 40MG TAB,EC Non-VA TAKE ONE TABLET BY MOUTH DAILY FOR STOMACH ACID Dec 25, 2022 Non-VA Document ed by: JERMAINE CHESTER Document ed at: [facility] [facility] ([facility]) ORAL ACTIVE HENRIKRYAN K 2022 [place] [facility] ([facility]) SPIRONOLACT ONE 25MG TAB SPIRONOL ACTONE 25MG TAB Non-VA TAKE ONE TABLET BY MOUTH DAILY FOR HEART FAILURE Jan 26, 2023 Non-VA Document ed by: ZANDRA CHESTERAMIN P Document ed at: [facility] ([facility]) ORAL ACTIVE FELICITY CHESTER P 2022 [place] [facility] ([facility]) TRIAMCINOLO NE ACETONIDE 0.1% OINT,TOP TRIAMCIN OLONE ACETONID E 0.1% OINT,TOP Non-VA APPLY SMALL AMOUNT TOPICALL Y THREE TIMES A DAY NEEDED Oct 22, 2020 Non-VA Document ed by: JERMAINE CHESTER Document ed at: [facility] ([facility]) TOPICA L ACTIVE HENRIKRYAN K 2020 [place] [facility] ([facility]) Immunizations Combined list of available immunizations from the Department of Defense and Veterans Affairs facilities. 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 INFLUENZA, HIGH-DOSE, QUADRIVALENT [address] [facility] COVID-19 (MODERNA), MRNA, LNP-S, BIVALENT, PF, 50 MCG/0.5 ML OR 25MCG/0.25 ML DOSE 1 2021 229 complet ed [facility] COVID-19 (MODERNA), MRNA, LNP-S, PF, 100 MCG/0.5ML DOSE OR 50 MCG/0.25ML DOSE 2020 207 complet ed [facility] COVID-19 (PFIZER), MRNA, LNP-S, PF, 30 MCG/0.3 ML DOSE 3 2020 208 complet ed [facility] INFLUENZA, HIGH-DOSE, QUADRIVALENT, PF 2020 197 complet ed [facility] INFLUENZA, UNSPECIFIED FORMULATION 2020 88 complet ed [facility] TDAP 2020 115 complet ed Cezar Echevarria, [id number] , exp-2022 and given VIS dated 12/17/2020 [facility] ([facility]) ZOSTER RECOMBINANT 2 2020 187 complet ed [facility] ([facility]) ZOSTER RECOMBINANT 1 2020 187 complet ed [facility] ([facility]) COVID-19 (PFIZER), MRNA, LNP-S, PF, 30 MCG/0.3 ML DOSE 2 2020 208 complet ed [facility] COVID-19 (PFIZER), MRNA, LNP-S, PF, 30 MCG/0.3 ML DOSE 1 2020 208 complet ed [facility] INFLUENZA, ADJUVANTED, TRIVALENT, PF 2019 168 complet ed [facility] INFLUENZA, UNSPECIFIED FORMULATION 2019 88 complet ed [facility] INFLUENZA, HIGH-DOSE, TRIVALENT, PF 2018 135 complet ed [facility] INFLUENZA, ADJUVANTED, TRIVALENT, PF 2017 168 complet ed [facility] INFLUENZA, UNSPECIFIED FORMULATION 2016 88 complet ed [facility] INFLUENZA, HIGH-DOSE, TRIVALENT, PF 2014 135 complet ed [facility] PNEUMOCOCCAL CONJUGATE PCV 13 2014 133 complet ed Per [facility] INFLUENZA, SPLIT VIRUS, TRIVALENT, PRESERVATIVE 2012 141 complet ed [facility] INFLUENZA, SPLIT VIRUS, TRIVALENT, PRESERVATIVE 2011 141 complet ed [facility] INFLUENZA, SPLIT VIRUS, TRIVALENT, PF 2010 140 complet ed [facility] PNEUMOCOCCAL POLYSACCHARID E PPV23 2010 33 complet ed [facility] INFLUENZA, SPLIT VIRUS, TRIVALENT, PRESERVATIVE 2009 141 complet ed [facility] INFLUENZA, SPLIT VIRUS, TRIVALENT, PF 2008 140 complet ed [facility] INFLUENZA, SPLIT VIRUS, TRIVALENT, PRESERVATIVE 2007 141 complet ed [facility] INFLUENZA, SPLIT VIRUS, TRIVALENT, PRESERVATIVE 2006 141 complet ed [facility] INFLUENZA, SPLIT VIRUS, TRIVALENT, PRESERVATIVE 2005 141 complet ed [facility] PNEUMOCOCCAL POLYSACCHARID E PPV23 2005 33 complet ed [employer] [facility] (ADULT), 5 LF TETANUS TOXOID, PRESERVATIVE FREE, ADSORBED 2005 113 complet ed [facility] INFLUENZA, SPLIT VIRUS, TRIVALENT, PRESERVATIVE 2004 141 complet ed [facility] INFLUENZA, SPLIT VIRUS, TRIVALENT, PRESERVATIVE 2003 141 complet ed [facility] INFLUENZA, SPLIT VIRUS, TRIVALENT, PRESERVATIVE 2002 141 complet ed [facility] Results Combined list of recent [...] Jan 23, 2023 02:00 PM Reporting Lab: [facility] [address] Performing Lab: [facility] [address] [place] ([facility]) BASIC METABOLIC PANEL+MG UREA NITROGEN [MASS/VOLUM E] IN SERUM OR PLASMA 35 mg/dL 8 - 26 01/23 H Specimen Type: PLASMA No comment entered. Ordering Provider: AILIN CHESTER Report Released Date/Time: Jan 23, 2023 02:00 PM Reporting Lab: [facility] [address] Performing Lab: [facility] [address] [place] ([facility]) BASIC METABOLIC PANEL+MG GLUCOSE [MASS/VOLUM E] IN SERUM OR PLASMA 239 mg/dL 70 - 100 01/23 H Specimen Type: PLASMA No comment entered. Ordering Provider: AILIN CHESTER Report Released Date/Time: Jan 23, 2023 02:00 PM Reporting Lab: [facility] [address] Performing Lab: [place] [address] [place] [address] ([facility]) BASIC METABOLIC PANEL+MG SODIUM [MOLES/VOLU ME] IN SERUM OR PLASMA 140 mmol/L 136 - 145 01/23 Specimen Type: PLASMA No comment entered. Ordering Provider: AILIN CHESTER Report Released Date/Time: Jan 23, 2023 02:00 PM Reporting Lab: [place] [id number] Performing Lab: [address] ([facility]) BASIC METABOLIC PANEL+MG POTASSIUM [MOLES/VOLU ME] IN SERUM OR PLASMA 5.1 mmol/L 3.5 - 5.1 01/23 Specimen Type: PLASMA No comment entered. Ordering Provider: AILIN CHESTER Report Released Date/Time: Jan 23, 2023 02:00 PM Reporting Lab: [facility] [address] Performing Lab: [facility] [id number] [place] [address] ([facility]) BASIC METABOLIC PANEL+MG CHLORIDE [MOLES/VOLU ME] IN SERUM OR PLASMA 109 mmol/L 98 - 107 01/23 H Specimen Type: PLASMA No comment entered. Ordering Provider: AILIN CHESTER Report Released Date/Time: Jan 23, 2023 02:00 PM Reporting Lab: [facility] [address] Performing Lab: [facility] [id number] [place] [address] ([facility]) BASIC METABOLIC PANEL+MG CARBON DIOXIDE, TOTAL [MOLES/VOLU ME] IN SERUM OR PLASMA 21 mmol/L 22 - 29 01/23 L Specimen Type: PLASMA No comment entered. Ordering Provider: AILIN CHESTER Report Released Date/Time: Jan 23, 2023 02:00 PM Reporting Lab: [facility] [address] Performing Lab: [place] [address] [place] ([facility]) BASIC METABOLIC PANEL+MG CALCIUM [MASS/VOLUM E] IN SERUM OR PLASMA 9.4 mg/dL 8.4 - 10.2 01/23 Specimen Type: PLASMA No comment entered. Ordering Provider: AILIN CHESTER Report Released Date/Time: Jan 23, 2023 02:00 PM Reporting Lab: [address] Performing Lab: [address] [place] [address] ([facility]) BASIC METABOLIC PANEL+MG MAGNESIUM [MASS/VOLUM E] IN SERUM OR PLASMA 1.7 mg/dL 1.6 - 2.6 01/23 Specimen Type: PLASMA No comment entered. Ordering Provider: AILIN CHESTER Report Released Date/Time: Jan 23, 2023 02:00 PM Reporting Lab: [place] [address] Performing Lab: [address] ([facility]) BASIC METABOLIC PANEL+MG ANION GAP IN SERUM OR PLASMA 10 mmol/L 5 - 15 01/23 Specimen Type: PLASMA No comment entered. Ordering Provider: AILIN CHESTER Report Released Date/Time: Jan 23, 2023 02:00 PM Reporting Lab: [place] [address] Performing Lab: [address] [place] [address] ([facility]) BASIC METABOLIC PANEL+MG GLOMERULAR FILTRATION RATE/1.73 SQ M.PREDICTED [VOLUME RATE/AREA] IN SERUM, PLASMA OR BLOOD BY CREATININE- BASED FORMULA (CKD-EPI 2020) 61 60 01/23 Specimen Type: PLASMA No comment entered. Ordering Provider: AILIN CHESTER Report Released Date/Time: Jan 23, 2023 02:00 PM Reporting Lab: [facility] [address] Performing Lab: [address] [place] ([facility]) BNP NATRIURETIC PEPTIDE B [MASS/VOLUM E] IN SERUM OR PLASMA 1549 pg/mL <99 - 99 01/23 H Specimen Type: PLASMA No comment entered. Ordering Provider: AILIN CHESTER Report Released Date/Time: Jan 23, 2023 02:00 PM Reporting Lab: [facility] [address] Performing Lab: [facility] [address] [place] ([facility]) MICROALBU MIN/CREAT ININE RATIO URINE CREATININE [MASS/VOLUM E] IN URINE 132.8 mg/dL 58.0 - 161.0 11/23 Specimen Type: URINE No comment entered. Ordering Provider: AILIN CHESTER Report Released Date/Time: Nov 23, 2022 11:58 AM Reporting Lab: [facility] [address] Performing Lab: [facility] [address] [place] ([facility]) MICROALBU MIN/CREAT ININE RATIO URINE MICROALBUMI N/CREATININ E [MASS RATIO] IN URINE 28.0 mg/g{c reat} 11/23 Specimen Type: URINE No comment entered. Ordering Provider: AILIN CHESTER Report Released Date/Time: Nov 23, 2022 11:58 AM Reporting Lab: [facility] [address] Performing Lab: [facility] [address] [place] ([facility]) MICROALBU MIN/CREAT ININE RATIO URINE MICROALBUMI N [MASS/VOLUM E] IN URINE 37.2 mg/L 11/23 H Specimen Type: URINE No comment entered. Ordering Provider: AILIN CHESTER Report Released Date/Time: Nov 23, 2022 11:58 AM Reporting Lab: [facility] [address] Performing Lab: [facility] [address] [place] ([facility]) CBC LEUKOCYTES [#/VOLUME] IN BLOOD BY AUTOMATED COUNT 10.80 10*3/u L 4.0 - 11.0 11/23 Specimen Type: BLOOD No comment entered. Ordering Provider: AILIN CHESTER Report Released Date/Time: Nov 23, 2022 11:58 AM Reporting Lab: [facility] [address] Performing Lab: [facility] [address] [place] ([facility]) CBC ERYTHROCYTE S [#/VOLUME] IN BLOOD BY AUTOMATED COUNT 3.87 10*6/u L 4.6 - 6.2 11/23 L Specimen Type: BLOOD No comment entered. Ordering Provider: AILIN CHESTER Report Released Date/Time: Nov 23, 2022 11:58 AM Reporting Lab: [facility] [address] Performing Lab: [place] [phone] [place] ([facility]) CBC HEMOGLOBIN [MASS/VOLUM E] IN BLOOD 12.1 g/dL 13.5 - 17.9 11/23 L Specimen Type: BLOOD No comment entered. Ordering Provider: AILIN CHESTER Report Released Date/Time: Nov 23, 2022 11:58 AM Reporting Lab: [facility] [address] Performing Lab: [address] [place] [address] ([facility]) CBC HEMATOCRIT [VOLUME FRACTION] OF BLOOD BY AUTOMATED COUNT 37.5 41 - 54 11/23 L Specimen Type: BLOOD No comment entered. Ordering Provider: AILIN CHESTER Report Released Date/Time: Nov 23, 2022 11:58 AM Reporting Lab: [facility] [address] Performing Lab: [facility] [address] [place] ([facility]) CBC MCV [ENTITIC VOLUME] BY AUTOMATED COUNT 96.9 fL 80 - 100 11/23 Specimen Type: BLOOD No comment entered. Ordering Provider: AILIN CHESTER Report Released Date/Time: Nov 23, 2022 11:58 AM Reporting Lab: [facility] [address] Performing Lab: [facility] [address] [place] ([facility]) CBC MCH [ENTITIC MASS] BY AUTOMATED COUNT 31.3 pg 27 - 33 11/23 Specimen Type: BLOOD No comment entered. Ordering Provider: AILIN CHESTER Report Released Date/Time: Nov 23, 2022 11:58 AM Reporting Lab: [facility] [address] Performing Lab: [facility] [address] [place] ([facility]) CBC MCHC [MASS/VOLUM E] BY AUTOMATED COUNT 32.3 g/dL 32.0 - 37.5 11/23 Specimen Type: BLOOD No comment entered. Ordering Provider: AILIN CHESTER Report Released Date/Time: Nov 23, 2022 11:58 AM Reporting Lab: [place] [address] Performing Lab: [address] ([facility]) CBC PLATELETS [#/VOLUME] IN BLOOD BY AUTOMATED COUNT 293 10*3/u L 150 - 400 11/23 Specimen Type: BLOOD No comment entered. Ordering Provider: AILIN CHESTER Report Released Date/Time: Nov 23, 2022 11:58 AM Reporting Lab: [address] Performing Lab: [address] ([facility]) CBC PLATELET MEAN VOLUME [ENTITIC VOLUME] IN BLOOD BY AUTOMATED COUNT 10.3 fL 7.4 - 10.4 11/23 Specimen Type: BLOOD No comment entered. Ordering Provider: AILIN CHESTER Report Released Date/Time: Nov 23, 2022 11:58 AM Reporting Lab: [place] [address] Performing Lab: [address] ([facility]) CBC ERYTHROCYTE DISTRIBUTIO N WIDTH [RATIO] BY AUTOMATED COUNT 13.2 11.5 - 14.5 11/23 Specimen Type: BLOOD No comment entered. Ordering Provider: AILIN CHESTER Report Released Date/Time: Nov 23, 2022 11:58 AM Reporting Lab: [facility] [address] Performing Lab: [address] ([facility]) COMPREHEN SIVE METABOLIC PANEL+MG CREATININE [MASS/VOLUM E] IN SERUM OR PLASMA 1.2 mg/dL 0.7 - 1.2 11/23 Specimen Type: PLASMA No comment entered. Ordering Provider: AILIN CHESTER Report Released Date/Time: Nov 23, 2022 11:58 AM Reporting Lab: [place] [phone] Performing Lab: [address] ([facility]) COMPREHEN SIVE METABOLIC PANEL+MG UREA NITROGEN [MASS/VOLUM E] IN SERUM OR PLASMA 34 mg/dL 8 - 26 11/23 H Specimen Type: PLASMA No comment entered. Ordering Provider: AILIN CHESTER Report Released Date/Time: Nov 23, 2022 11:58 AM Reporting Lab: [facility] [address] Performing Lab: [place] [phone] [place] ([facility]) COMPREHEN SIVE METABOLIC PANEL+MG GLUCOSE [MASS/VOLUM E] IN SERUM OR PLASMA 54 mg/dL 70 - 100 11/23 L Specimen Type: PLASMA No comment entered. Ordering Provider: AILIN CHESTER Report Released Date/Time: Nov 23, 2022 11:58 AM Reporting Lab: [address] Performing Lab: [address] [place] [address] ([facility]) COMPREHEN SIVE METABOLIC PANEL+MG SODIUM [MOLES/VOLU ME] IN SERUM OR PLASMA 143 mmol/L 136 - 145 11/23 Specimen Type: PLASMA No comment entered. Ordering Provider: AILIN CHESTER Report Released Date/Time: Nov 23, 2022 11:58 AM Reporting Lab: [facility] [address] Performing Lab: [facility] [phone] [place] [address] ([facility]) COMPREHEN SIVE METABOLIC PANEL+MG POTASSIUM [MOLES/VOLU ME] IN SERUM OR PLASMA 4.4 mmol/L 3.5 - 5.1 11/23 Specimen Type: PLASMA No comment entered. Ordering Provider: AILIN CHESTER Report Released Date/Time: Nov 23, 2022 11:58 AM Reporting Lab: [facility] [address] Performing Lab: [facility] [phone] [place] [address] ([facility]) COMPREHEN SIVE METABOLIC PANEL+MG CHLORIDE [MOLES/VOLU ME] IN SERUM OR PLASMA 107 mmol/L 98 - 107 11/23 Specimen Type: PLASMA No comment entered. Ordering Provider: AILIN CHESTER Report Released Date/Time: Nov 23, 2022 11:58 AM Reporting Lab: [facility] [address] Performing Lab: [place] [address] [place] ([facility]) COMPREHEN SIVE METABOLIC PANEL+MG CARBON DIOXIDE, TOTAL [MOLES/VOLU ME] IN SERUM OR PLASMA 23 mmol/L 22 - 29 11/23 Specimen Type: PLASMA No comment entered. Ordering Provider: AILIN CHESTER Report Released Date/Time: Nov 23, 2022 11:58 AM Reporting Lab: [address] Performing Lab: [address] [place] [address] ([facility]) COMPREHEN SIVE METABOLIC PANEL+MG CALCIUM [MASS/VOLUM E] IN SERUM OR PLASMA 9.7 mg/dL 8.4 - 10.2 11/23 Specimen Type: PLASMA No comment entered. Ordering Provider: AILIN CHESTER Report Released Date/Time: Nov 23, 2022 11:58 AM Reporting Lab: [place] [address] Performing Lab: [address] [place] [address] ([facility]) COMPREHEN SIVE METABOLIC PANEL+MG PROTEIN [MASS/VOLUM E] IN SERUM OR PLASMA 7.2 g/dL 6.0 - 8.3 11/23 Specimen Type: PLASMA No comment entered. Ordering Provider: AILIN CHESTER Report Released Date/Time: Nov 23, 2022 11:58 AM Reporting Lab: [place] [phone] Performing Lab: [address] [place] [address] ([facility]) COMPREHEN SIVE METABOLIC PANEL+MG ALBUMIN [MASS/VOLUM E] IN SERUM OR PLASMA 4.1 g/dL 3.5 - 5.2 11/23 Specimen Type: PLASMA No comment entered. Ordering Provider: AILIN CHESTER Report Released Date/Time: Nov 23, 2022 11:58 AM Reporting Lab: [place] [phone] Performing Lab: [place] [phone] [place] ([facility]) COMPREHEN SIVE METABOLIC PANEL+MG BILIRUBIN.T OTAL [MASS/VOLUM E] IN SERUM OR PLASMA 0.5 mg/dL 0.2 - 1.2 11/23 Specimen Type: PLASMA No comment entered. Ordering Provider: AILIN CHESTER Report Released Date/Time: Nov 23, 2022 11:58 AM Reporting Lab: [facility] [phone] Performing Lab: [address] [place] ([facility]) COMPREHEN SIVE METABOLIC PANEL+MG MAGNESIUM [MASS/VOLUM E] IN SERUM OR PLASMA 1.4 mg/dL 1.6 - 2.6 11/23 L Specimen Type: PLASMA No comment entered. Ordering Provider: AILIN [place] Report Released Date/Time: Nov 23, 2022 11:58 AM Reporting Lab: [facility] [address] Performing Lab: [facility] [id number] [place] [address] ([facility]) COMPREHEN SIVE METABOLIC PANEL+MG ANION GAP IN SERUM OR PLASMA 13 mmol/L 5 - 15 11/23 Specimen Type: PLASMA No comment entered. Ordering Provider: AILIN CHESTER Report Released Date/Time: Nov 23, 2022 11:58 AM Reporting Lab: [facility] [address] Performing Lab: [facility] [address] [place] ([facility]) COMPREHEN SIVE METABOLIC PANEL+MG ALKALINE PHOSPHATASE [ENZYMATIC ACTIVITY/VO LUME] IN SERUM OR PLASMA 87 U/L 40 - 150 11/23 Specimen Type: PLASMA No comment entered. Ordering Provider: AILIN [place] Report Released Date/Time: Nov 23, 2022 11:58 AM Reporting Lab: [facility] [address] Performing Lab: [facility] [address] [place] ([facility]) COMPREHEN SIVE METABOLIC PANEL+MG ALANINE AMINOTRANSF ERASE [ENZYMATIC ACTIVITY/VO LUME] IN SERUM OR PLASMA 28 U/L 11/23 Specimen Type: PLASMA No comment entered. Ordering Provider: AILIN [place] Report Released Date/Time: Nov 23, 2022 11:58 AM Reporting Lab: [facility] [address] Performing Lab: [facility] [address] [place] ([facility]) COMPREHEN SIVE METABOLIC PANEL+MG ASPARTATE AMINOTRANSF ERASE [ENZYMATIC ACTIVITY/VO LUME] IN SERUM OR PLASMA 33 U/L 11/23 Specimen Type: PLASMA No comment entered. Ordering Provider: AILIN CHE[place] Report Released Date/Time: Nov 23, 2022 11:58 AM Reporting Lab: [facility] [address] Performing Lab: [facility] [address] [place] ([facility]) COMPREHEN SIVE METABOLIC PANEL+MG GLOMERULAR FILTRATION RATE/1.73 SQ M.PREDICTED [VOLUME RATE/AREA] IN SERUM, PLASMA OR BLOOD BY CREATININE- BASED FORMULA (CKD-EPI 2020) 61 11/23 Specimen Type: PLASMA No comment entered. Ordering Provider: AILIN [place] Report Released Date/Time: Nov 23, 2022 11:58 AM Reporting Lab: [facility] [address] Performing Lab: [facility] [address] [place] ([facility]) HEMOGLOBI N A1C HEMOGLOBIN A1C/HEMOGLO BIN.TOTAL [...] Nov 23, 2022 11:58 AM Reporting Lab: [facility] [address] Performing Lab: [facility] [address] [place] ([facility]) LIPID PANEL,NON -FASTING CHOLESTEROL [MASS/VOLUM E] IN SERUM OR PLASMA 130 mg/dL 11/23 Specimen Type: PLASMA No comment entered. Ordering Provider: AILIN [place] Report Released Date/Time: Nov 23, 2022 11:58 AM Reporting Lab: [facility] [address] Performing Lab: [facility] [address] [place] ([facility]) LIPID PANEL,NON -FASTING CHOLESTEROL IN HDL [MASS/VOLUM E] IN SERUM OR PLASMA 39 mg/dL 11/23 L Specimen Type: PLASMA No comment entered. Ordering Provider: AILIN [place] Report Released Date/Time: Nov 23, 2022 11:58 AM Reporting Lab: [facility] [address] Performing Lab: [facility] [address] [place] ([facility]) LIPID PANEL,NON -FASTING CHOLESTEROL IN LDL [MASS/VOLUM E] IN SERUM OR PLASMA BY CALCULATION 73 mg/dL 11/23 Specimen Type: PLASMA No comment entered. Ordering Provider: AILIN [place] Report Released Date/Time: Nov 23, 2022 11:58 AM Reporting Lab: [facility] [address] Performing Lab: [facility] [address] [place] ([facility]) LIPID PANEL,NON -FASTING CHOLESTEROL IN VLDL [MASS/VOLUM E] IN SERUM OR PLASMA BY CALCULATION 18 mg/dL 11/23 Specimen Type: PLASMA No comment entered. Ordering Provider: AILIN [place] Report Released Date/Time: Nov 23, 2022 11:58 AM Reporting Lab: [facility] [address] Performing Lab: [facility] [address] [place] ([facility]) LIPID PANEL,NON -FASTING CHOLESTEROL NON HDL [MASS/VOLUM E] IN SERUM OR PLASMA 91 mg/dL 11/23 Specimen Type: PLASMA No comment entered. Ordering Provider: AILIN [place] Report Released Date/Time: Nov 23, 2022 11:58 AM Reporting Lab: [facility] [address] Performing Lab: [facility] [address] [place] ([facility]) LIPID PANEL,NON -FASTING TRIGLYCERID E [MASS/VOLUM E] IN SERUM OR PLASMA 92 mg/dL 11/23 Specimen Type: PLASMA No comment entered. Ordering Provider: AILIN [place] Report Released Date/Time: Nov 23, 2022 11:58 AM Reporting Lab: [facility] [address] Performing Lab: [facility] [address] [place] ([facility]) TSH W/REFLEX TO FREE T4 THYROTROPIN [UNITS/VOLU ME] IN SERUM OR PLASMA 4.59 u[IU]/ mL 0.35 - 4.94 11/23 Specimen Type: PLASMA No comment entered. Ordering Provider: AILIN [place] Report Released Date/Time: Nov 23, 2022 11:58 AM Reporting Lab: [facility] [address] Performing Lab: [facility] [address] [place] ([facility]) Vital Signs Combined list of inpatient and outpatient Vital Signs from Department of Defense and [facility], ranging from 12 months to all on record, depending upon the facility. Vital Sign Value Date Comments Source Encounters Combined list of: 1) Encounters from Department of Veterans Affairs facilities going back up to thelast 18 months. 2) Encounters from the Department of [facility] facilities going back up to 280 months. Location Location Details Encounter Type Encounter Number Reason For Visit Attending Provider ADM Date DC Date Status Disposition Source [facility] Outpatient Encounter [id number] 07/31 [facility] Out[facility] Encounter [id number] 08/21 [facility] Outpatient [facility]counter [id number] 09/20 [facility] Outpatient Encounter [id number] 11/11 [facility] Outpatient Encounter [id number] ZARI POWER 11/16 [facility] Outpatient Encounter [id number] 11/21 [facility] ([facility]) OFFICE O/P EST MOD 30-39 MIN [id number] Diagnos is: ICD-10- CM Z00.00 Encntr for general adult medical exam w/o abnorma l finding s
CANDELARIO CHESTER 11/23 [facility] ([facility]) [place] ([facility]) GAIT TRAINING THERAPY [id number] Diagnos is: ICD-10- CM R26.89 Other abnorma lities of gait and mobilit y
OMAYRA JAMESON V 11/23 [place] ([facility]) [place] [facility] Outpatient Encounter [id number] SA TRINO RA R 12/11 [place] [place] [facility] Encounter [id number] 12/25 [facility] [place] [facility] Out[facility] Encounter [id number] SA TRINO RA R 12/28 [facility] [place] [facility] Out[facility] Encounter [id number] 01/05 [facility] [place] [facility] Out[facility] Encounter [id number] 01/11 [facility] [place] [facility] Outpatient Encounter [id number] 01/16 [place] [facility] ([facility]) OFFICE O/P EST HI 40-54 MIN [id number] Diagnos is: ICD-10- CM I50.9 Heart failure , unspeci fied
CANDELARIO CHESTER 01/23 [place] [facility] ([facility]) [place] [facility] Outpatient Encounter [id number] Marcus POTTS I 01/24 [place] [facility] [place] [facility] Out[facility] Encounter [id number] Danica TORRE 02/05 [place] [facility] [place] [facility] Out[place] Encounter [id number] 02/09 [place] [facility] [place] [facility] Outpatient Encounter [id number] Danica TORRE 02/09 [place] [facility] [place] [facility] Outpatient Encounter [id number] 02/14 [place] [facility] [place] [facility] Outpatient Encounter [id number] 02/15 [place] [facility] [place] [facility] Out[facility] Encounter [id number] 02/19 [place] [facility] [place] [facility] Out[facility] Encounter [id number] 02/20 [place] [facility] [place] [facility] Outpatient [facility]counter [id number] 02/20 [place] [facility] [place] [facility] Out[facility] Encounter [id number] 02/20 [place] [facility] [place] [facility] Out[facility] Encounter [id number] 02/20 [place] [facility] [place] [facility] Outpatient Encounter [id number] 02/21 [place] [facility] [place] [facility] QNHP OL DIG ASSMT&MGMT 5-10 [id number] Diagnos is: ICD-10- CM E11.9 Type 2 diabete s mellitu s without complic ations< br/> HARDER,SIVA LY 02/22 [place] [facility] PRO PHONE CALL 11-20 MIN [id number] Diagnos is: ICD-10- CM I50.9 Heart failure , unspeci fied
JERMAINE ALCANTAR ANDMARIA INES Frey 02/23 [place] ([facility] [place] [facility] Outpatient Encounter [id number] 02/26 [place] [facility] [place] [facility] Outpatient Encounter [id number] 03/01 [place] [facility] [place] [facility] Outpatient Encounter [id number] 03/05 [place] [facility] [place] [facility] Outpatient Encounter [id number] SA RA Sandra JAMESON 03/09 [place] [facility] [place] [facility] Out[facility] Encounter [id number] 03/14 [place] [facility] [place] [facility] Outpatient Encounter [id number] SA JAMARI JAMESON R 04/12 [facility] [place] [facility] Outpatient Encounter [id number] TRINO R 04/16 [facility] [place] [facility] Outpatient Encounter [id number] TRINO R 05/01 [facility] [place] [facility] Outpatient Encounter [id number] 07/11 [facility] [place] [facility] Outpatient Encounter [id number] [facility] [place] [facility] Outpatient Encounter [id number] 07/12 [facility] PRO PHONE CALL 5-10 MIN [id number] Diagnos is: ICD-10- CM 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
VIV BARFIELD 07/19 [facility] HEARING AID REPAIR/MOD IFYING [id number] Diagnos is: ICD-10- CM 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
CARY CORCORAN 08/09 [facility] HEARING AID FITTING/CH ECKING [id number] Diagnos is: ICD-10- CM 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
Sy MAKI 09/17 [facility] Outpatient Encounter [id number] 10/17 [facility] ([facility]) OFFICE O/P EST HI 40 MIN [id number] Diagnos is: ICD-10- CM E11.9 Type 2 diabete s mellitu s without complic ations< br/> CANDELARIO CHESTER 11/07 [place] ([facility]) Social History Combined list of available smoking, tobacco, and other social history from Department of Defense and Veterans Affairs facilities. Social History Type Response Date Comment Sourc e Tobacco smoking status NHIS [facility]ACCO FORMER USER 11/08/2023 [place] ([facility]) History of tobacco use VA-TOBACCO QUIT 1 5 YRS OR MORE 11/08/2023 [place] ([facility]) History of tobacco use VA-TOBACCO QUIT 1 5 YRS OR MORE 11/23/2022 [place] ([facility]) History of tobacco use VA-TOBACCO FORMER USER 11/29/2021 [place] ([facility]) History of tobacco use VA-TOBACCO FORMER USER 10/21/2020 [place] ([facility]) Plan of Care List of future care activities from Department of Veterans Affairs facilities. Additional future care activities may be listed in the Assessment and Plan section. Date/Time Care Activity Care Activity Detail Facili ty 12/18/2023 AMBULATORY - REHAB MEDICINE AMBULATORY - REHAB MEDICINE [place] ([facility]) 11/08/2023 Consult Order REHAB OUTPT [place] MOBILITY Cons Director [facility] [place] ([facility])
--- OUTSIDE RECORDS SUMMARY | 2023-11-14 09:08 | XMS_ITS | Encounter Summary ---
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 Date/Time Encounter Type Encounter Description Reason Provider Source Nov 23, 2022 11:00 AM OFFICE O/P EST MOD 30-39 MIN PRIMARY CARE/MEDICINE ICD-10-CM Z00.00 Encntr for general adult medical exam w/o abnormal findings JIMENEZ CHESTER IHEmerald Encounter Template Text not used by [place] Assessments - Encounter Diagnoses This section includes the primary and secondary diagnoses documented for the Encounter. Date/Time Primary/Secondary Diagnosis Diagnosis Name Provider Source Nov 23, 2022 08:29 PM PRIMARY Encntr for general adult medical exam w/o abnormal findings JIMENEZ CHESTER [facility] ([facility]) Nov 23, 2022 08:29 PM SECONDARY Athscl heart disease of [place] coronary artery w/o ang pctrs JIMENEZ CHESTER [facility]) Nov 23, 2022 08:29 PM SECONDARY Essential (primary) hypertension JIMENEZ CHESTER [facility]) Nov 23, 2022 08:29 PM SECONDARY Hyperlipidemia, unspecified HENRIKJIMENEZ [place]OD[place] ([facility]) Nov 23, 2022 08:29 PM SECONDARY outfitter cabin (current) use of insulin JIMENEZ CHESTER aKmla [facility] ([facility]) Nov 23, 2022 08:29 PM SECONDARY Type 2 diabetes mellitus with diabetic polyneuropathy HENRIKJIMENEZ [place] ([facility]) Nov 23, 2022 08:29 PM SECONDARY Type 2 diabetes mellitus without complications HENRIKJIMENEZ [place] ([facility]) Plan of Treatment: Future Appointments (+ 6 months) and Future Tests (+/- 45 days) The Plan of Treatment section includes future care activities for the patient from all [place] [facility]. This section includes future appointments and future orders which are active, pending or scheduled. Future Appointments This section includes appointments that were scheduled to occur 6 months from the date of the Encounter, up to a maximum of 20 appointments. The data comes from all [facility] facilities. Appointment Date/Time Appointment Type Appointme nt Facility Name Dec 11, 2022 12:42 PM [facility] [facility] Dec 28, 2022 04:27 PM [facility] [place] [facility] Jan 22, 2023 07:00 AM [facility] [place] [facility] Jan 22, 2023 07:01 AM [facility] [facility] Jan 23, 2023 01:00 PM [facility] - [facility]ICINE [facility] ([facility]) Feb 15, 2023 12:45 PM [facility] [place] [facility] Feb 20, 2023 07:01 AM [facility] [place] [facility] [place] [facility] Feb 23, 2023 11:00 AM [facility] - [facility]IC[facility] ([facility] Mar 09, 2023 08:41 PM [facility] [place] [facility] Apr 12, 2023 11:56 PM [facility] [place] [facility] Apr 16, 2023 09:26 PM [facility] [place] [facility] May 01, 2023 06:28 PM [facility] [facility] Lab Results: +/- 30 days of the encounter This section includes the Chemistry and Hematology Lab Results on record with [place] for the patient. Radiology Reports and Pathology Reports are provided separately, in subsequent sections. Lab Results This section contains the Chemistry/Hematology Results that were resulted 30 days before or 30 daysafter the date of the Encounter. Date/Time Source Result Type Result - Unit Interpretation Reference Range Comment Nov 23, 2022 12:10 PM [facility] ([facility]) MICROALBUMIN/CREATININE RATIO URINE Specimen Type: URINE No comment entered. Ordering Provider: JIMENEZ CHESTER Report Released Date/Time: Nov 23, 2022 11:58 AM Reporting Lab: [facility] [id number] Performing Lab: [facility] [address] CREATININE,UR RANDOM 132.8 mg/dL 58.0-161.0 ALB/CREAT RATIO,UR 28.0 mg/g{creat} See_Comment MICROALBUMIN,UR 37.2 mg/L H See_Comment Nov 23, 2022 12:09 PM [facility] ([facility]) CBC Specimen Type: BLOOD No comment entered. Ordering Provider: JIMENEZ CHESTER Report Released Date/Time: Nov 23, 2022 11:58 AM Reporting Lab: [facility] [id number] Performing Lab: [facility] [address] WBC 10.80 10*3/uL 4.0-11.0 RBC 3.87 10*6/uL L 4.6-6.2 HGB 12.1 g/dL L 13.5-17.9 HCT 37.5 L 41-54 MCV 96.9 fL 80-100 MCH 31.3 pg 27-33 MCHC 32.3 g/dL 32.0-37.5 PLT 293 10*3/uL 150-400 MPV 10.3 fL 7.4-10.4 RDW 13.2 11.5-14.5 Nov 23, 2022 12:09 PM [facility] ([facility]) LIPID PANEL,NON-FASTING Specimen Type: PLASMA No comment entered. Ordering Provider: JIMENEZ CHESTER Report Released Date/Time: Nov 23, 2022 11:58 AM Reporting Lab: [facility] [address] Performing Lab: [facility] [address] CHOLESTEROL 130 mg/dL See_Comment .HDL 39 mg/dL L See_Comment LDL CALCULATION 73 mg/dL See_Comment VLDL CALCULATION 18 mg/dL See_Comment NON HDL CHOLESTEROL 91 mg/dL See_Comment TRIG(NON FASTING) 92 mg/dL See_Comment Nov 23, 2022 12:09 PM [facility] ([facility]) TSH W/REFLEX TO FREE T4 Specimen Type: PLASMA No comment entered. Ordering Provider: JIMENEZ CHESTER Report Released Date/Time: Nov 23, 2022 11:58 AM Reporting Lab: [facility] [address] Performing Lab: [facility] [address] TSH 4.59 u[IU]/mL 0.35-4.94 Nov 23, 2022 12:09 PM [facility] [place] ([facility]) HEMOGLOBIN A1C Specimen Type: BLOOD Comment: [...] Nov 23, 2022 11:58 AM Reporting Lab: [facility] [phone] Performing Lab: [facility] [address] HEMOGLOBIN A1C 7.4 H 4.0-6.0 Nov 23, 2022 12:09 PM [facility] [place] ([facility]) COMPREHENSIVE METABOLIC PANEL+MG Specimen Type: PLASMA No comment entered. Ordering Provider: JIMENEZ CHESTER Report Released Date/Time: Nov 23, 2022 11:58 AM Reporting Lab: [facility] [address] Performing Lab: [facility] [address] CREATININE 1.2 mg/dL 0.7-1.2 UREA NITROGEN 34 mg/dL H 8-26 GLUCOSE 54 mg/dL L 70-100 SODIUM 143 mmol/L 136-145 POTASSIUM 4.4 mmol/L 3.5-5.1 CHLORIDE 107 mmol/L 98-107 CO2 23 mmol/L 22-29 CALCIUM 9.7 mg/dL 8.4-10.2 PROTEIN,TOTAL 7.2 g/dL 6.0-8.3 ALBUMIN 4.1 g/dL 3.5-5.2 BILIRUBIN, TOTAL 0.5 mg/dL 0.2-1.2 MAGNESIUM 1.4 mg/dL L 1.6-2.6 ANION GAP 13 mmol/L 5-15 ALKALINE PHOSPHATASE 87 U/L 40-150 ALT/SGPT 28 U/L See_Comment AST/SGOT 33 U/L See_Comment .CREAT EGFR(CKD-EPI) 61 See_Comment Vital Signs: All taken on the encounter date This section contains inpatient and outpatient Vital Signs collected on the date of the Encounter. Date/Time Temperature Pulse Blood Pressure Respiratory Rate SP02 Pain Height Weight Body Mass Index Source Nov 23, 2022 11:13 AM 97.7 F 59 /min 138/76 mm[Hg] 18 /min 98 % 0 69.5 in 186 lb 27 [facility] ([facility]) Social History: Smoking Status (Most current) and Tobacco Use (All prior to encounter date) This section includes the most current, and the historical, smoking and tobacco- related health factors from the [place] facility where the Encounter took place. Current Smoking Status This section includes the most current smoking, or tobacco-related health factor, from the [place] facility where the Encounter took place. Date/Time Current Smoking Status Comment Federico itrcis Nov 23, 2022 11:00 AM VA-TOBACCO FORMER USER [facility] ([facility]) Tobacco Use History This section includes a history of the smoking, or tobacco-related health factors, that were collected on or before the date of the Encounter. The data comes from the [place] facility where the Encounter took place. Date/Time Smoking Status/Tobacco Use Comment F acility Nov 23, 2022 11:00 AM VA-TOBACCO QUIT 15 YRS OR MORE [facility] ([facility]) Nov 29, 2021 10:00 AM VA-TOBACCO FORMER USER [facility] ([facility]) Nov 29, 2021 10:00 AM VA-TOBACCO QUIT 15 YRS OR MORE [facility] ([facility]) Oct 21, 2020 10:30 AM VA-TOBACCO FORMER USER [facility] ([facility]) Oct 21, 2020 10:30 AM VA-TOBACCO QUIT 15 YRS OR MORE [facility] ([facility]) Encounter Notes: All associated encounter notes This section contains the clinical notes associated to the Encounter. Date/Time Encounter Note(s) Provider Source Nov 24, 2022 12:06 PM LETTERS: LOCAL TITLE: FOLLOW UP RESULTS LETTER STANDARD TITLE: LETTERS DATE OF NOTE: NOV 24, 2022@12:06 ENTRY DATE: NOV 24, 2022@12:07:04 AUTHOR: JIMENEZ CHESTER COSIGNER: URGENCY: STATUS: COMPLETED [facility] [address] [place] [address] Nov JUNG CASAS [address] [place] [address] Dear [place]: I am writing to inform you of the results of the tests you had done at the [facility]. The tests below were performed and are [...] automated letter that you will receive from [facility] for a full set of labs. Your [...] was about the same as seen at [facility] in the last 6 months. No medication [...] staff or me at the following number: [phone] ([place]) Sincerely, JIMENEZ CHESTER MD PHYSICIAN JIMENEZ CHESTER ([facility]) Nov 23, 2022 11:27 AM ADVANCE DIRECTIVE: LOCAL TITLE: AD NOTIFICATION AND SCREENING STANDARD TITLE: ADVANCE DIRECTIVE DATE OF NOTE: NOV 23, 2022@11:27 ENTRY DATE: NOV 23, 2022@11:27:07 AUTHOR: SHONDA DALAL COSIGNER: URGENCY: STATUS: COMPLETED ADVANCE DIRECTIVE NOTIFICATION: Patient was given written notification of the following rights: 1. Accept or refuse any medical treatment. 2. Complete a durable power of tank car mechanic for health care. 3. Complete a living will. ADVANCE DIRECTIVE SCREENING: Does patient have an Advance Directive? The patient does not have an Advance Directive. The patient wishes to create an Advance Directive for health care. The patient has no questions about completing the Advance Directive forms. /riccardo/ SHONDA DALAL REGISTERED NURSE Signed: 11/23/2022 11:27 SHONDA DALAL ([facility]) Nov 23, 2022 11:27 AM H & P NOTE: LOCAL TITLE: [facility] ANNUAL VISIT STANDARD TITLE: H & P NOTE DATE OF NOTE: NOV 23, 2022@11:27 ENTRY DATE: NOV 23, 2022@07:35:39 AUTHOR: JIMENEZ CHESTER COSIGNER: URGENCY: STATUS: COMPLETED Type of Visit: Face to Face Reason for Visit: Annual review of chronic medical conditions HPI: 82 year-old MALE here for his annual visit. His last visit was 11/29/2021. Since that visit, he has had an community care audiology visit. had a Medicare wellness visit on 08/01/2022. Is now a year older. 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 Illicit drugs: none 5. Employment: [employer] work 39 years 6. Service: [employer] Allergies: NKDA Physical Exam: Temp: 97.7 F [36.5 C] (11/23/2022 11:13) Pulse:59 (11/23/2022 11:13) BP: 138/76 (11/23/2022 11:13) Resp: 18 (11/23/2022 11:13) O2 Sat: 98% (11/23/2022 11:13) Weight: 186 lb [84.37 kg] (11/23/2022 11:13) BMI: 27.1 Pain: 0 (11/23/2022 11:13) General: AAOx3, NAD, Healthy HEENT: PERRL, EOMI, [...] triglycerides 97, HDL 40, LDL [address] [facility] 11/15/2022 LE arterial TRAN - wound eval [...] Info COVID-19 (MODERNA), MRNA, LNP-S,* 1 03/29/2022 [facility] [place]* COVID-19 (PFIZER), MRNA, LNP-S, P* 3 03/09/2021 [facility]* 2 07/24/2020 [place]* 1 07/03/2020 [place]* INFLUENZA, HIGH-DOSE, QUADRIVALEN* 1 04/05/2022 [facility] INFLUENZA, UNSPECIFIED FORMULATIO* 03/09/2021 [facility]* 02/12/2020 [facility] PNEUMOCOCCAL CONJUGATE PCV 13 01/21/2015 [facility]* <C> PNEUMOCOCCAL POLYSACCHARIDE PPV23 02/09/2011 [facility]* 03/06/2006 [facility]* TDAP 01/21/2021 [facility] * <C> ZOSTER RECOMBINANT 2 01/21/2021 [facility] * 1 10/21/2020 [facility] * [facility] - Future Appointment: 11/23/2022 11:00 DANA PACT TWOLVES RTC in 1 year annual visit CPRS [...] were also reviewed/updated for accuracy. Allergies/ADR from [facility] may not display in CPRS. Use JLV MRT5 - Allergies/ADRs FACILITY ALLERGY/ADR -------- No Remote Allergy/ADR Data available for this patient [facility] No Known Allergies Active and Recently Outpatient [...] MD PHYSICIAN Signed: 11/23/2022 20:30 JIMENEZ CHESTER ([facility]) Nov 23, 2022 11:14 AM PRIMARY CARE NOTE: LOCAL TITLE: [facility] PROGRESS NOTE-[facility] STANDARD TITLE: PRIMARY CARE NOTE DATE OF NOTE: NOV 23, 2022@11:14 ENTRY DATE: NOV 23, 2022@11:14:39 AUTHOR: SHONDA DALAL COSIGNER: URGENCY: STATUS: COMPLETED TYPE OF VISIT: Appointment Check In Type of appointment: In-person appointment REASON FOR VISIT: annual appt. co-managed [facility] [place]. not fasting. ALLERGIES: Patient has answered NKA [...] November, ? Exact date is unknown Location: [facility] Comment: per /, sore on right foot Patient had pedal (dorsalis pedis and/or posterior tibial) pulse exam previously. Exam Result: Abnormal Date: November, ? Exact date is unknown Location: [facility] Comment: per / Patient had foot sensory exam with monofilament previously. Exam Result: Abnormal Date: November, ? Exact date is unknown Location: [facility] Comment: per / The following risk level [...] medical attention for foot injury or ulcer [place] offered Podiatry consult, but declined. Comment: well managed at [facility] Tobacco Use Screening: The patient is a [...] Not at all Suicide Screen: C-SSRS Screening [place] Suicide Severity Rating Scale (C-SSRS) screener 1. [...] pressure ulcers, or a wound from a clinical laboratory medical director or Patient is bed-confined or a wheelchair-user or Patient requires assistance to transfer/change position No, Skin Screen is Negative Home Abuse/Violence Screen Is your home free of abuse and violence? Yes MOVE! Program Screen Body Mass Index (BMI)= 27.1 [place]: No data available [facility] Hgb A1C: No data available [place] Hgb A1C: No data available Point of Care Hgb A1C: POC HGB A1C____ Outpatient Nutrition Screen Body Mass Index (BMI)= 27.1 [place]: No data available [facility] Hgb A1C: No data available [place] Hgb A1C: No data available Point of [...] REGISTERED NURSE Signed: 11/23/2022 11:24 SHONDA DALAL ([facility])
--- OUTSIDE RECORDS SUMMARY | 2023-11-14 09:08 | XMS_ITS | Encounter Summary ---
Author Name [facility] [place] [facility] [place] Organization [place] Address [address] [place] [address] Care Team Providers Care Camp Head Counselor Name Role Phone JIMENEZ CHESTER Primary Care [...] Cherry's Name Patient's Relationship to Policy Cherry [facility] (WNR) MEDICARE ADVANTAGE [facility] (WNR) May 14, 2020 [id number] [phone] PITER CASAS ERD PATIENT Selected Encounter This section includes the information on record at [place] for the Encounter. Date/Time Encounter Type Encounter Description Reason Provider Source Nov 23, 2022 02:30 PM [facility] TRAINING THERAPY PHYSICAL THERAPY ICD-10-CM R26.89 Other abnormalities of gait and mobility SALAZAR JAMESON V [place] Encounter Template Text not used by [place] Assessments - Encounter Diagnoses This section includes the primary and secondary diagnoses documented for the Encounter. Date/Time Primary/Secondary Diagnosis Diagnosis Name Provider Source Nov 23, 2022 03:12 PM PRIMARY Other abnormalities of gait and mobility CINTHIA JAMESON ([facility]) Plan of Treatment: Future Appointments (+ 6 months) and Future Tests (+/- 45 days) The Plan of Treatment section includes future care activities for the patient from all [place] [facility]. This section includes future appointments and future orders which are active, pending or scheduled. Future Appointments This section includes appointments that were scheduled to occur 6 months from the date of the Encounter, up to a maximum of 20 appointments. The data comes from all [place] treatment facilities. Appointment Date/Time Appointment Type Appointme nt Facility Name Dec 11, 2022 12:42 PM [facility] [place] [facility] Dec 28, 2022 04:27 PM [facility] [facility] Jan 22, 2023 07:00 AM [facility] [place] [facility] Jan 22, 2023 07:01 AM [facility] [place] [facility] Jan 23, 2023 01:00 PM [facility]ULATORY - MEDICINE [facility] ([facility]) Feb 15, 2023 12:45 PM [facility] [place] [facility] Feb 20, 2023 07:01 AM [facility] [place] [facility] Feb 23, 2023 11:00 AM [facility]BUL[facility]ORY - MEDICINE [facility] ([facility]) Mar 09, 2023 08:41 PM [facility] [place] [facility] Apr 12, 2023 11:56 PM [facility] [place] [facility] Apr 16, 2023 09:26 PM [facility] [place] [facility] May 01, 2023 06:28 PM [facility] [place] [facility] Lab Results: +/- 30 days of the encounter This section includes the Chemistry and Hematology Lab Results on record with [place] for the patient. Radiology Reports and Pathology Reports are provided separately, in subsequent sections. Lab Results This section contains the Chemistry/Hematology Results that were resulted 30 days before or 30 daysafter the date of the Encounter. Date/Time Source Result Type Result - Unit Interpretation Reference Range Comment Nov 23, 2022 12:10 PM [facility] ([facility]) MICROALBUMIN/CREATININE RATIO URINE Specimen Type: URINE No comment entered. Ordering Provider: JIMENEZ CHESTER Report Released Date/Time: Nov 23, 2022 11:58 AM Reporting Lab: [facility] [address] Performing Lab: [facility] [address] CREATININE,UR RANDOM 132.8 mg/dL 58.0-161.0 ALB/CREAT RATIO,UR 28.0 mg/g{creat} See_Comment MICROALBUMIN,UR 37.2 mg/L H See_Comment Nov 23, 2022 12:09 PM [place] ([facility]) LIPID PANEL,NON-FASTING Specimen Type: PLASMA No comment entered. Ordering Provider: JIMENEZ CHESTER Report Released Date/Time: Nov 23, 2022 11:58 AM Reporting Lab: [facility] [address] Performing Lab: [facility] [address] CHOLESTEROL 130 mg/dL See_Comment .HDL 39 mg/dL L See_Comment LDL CALCULATION 73 mg/dL See_Comment VLDL CALCULATION 18 mg/dL See_Comment NON HDL CHOLESTEROL 91 mg/dL See_Comment TRIG(NON FASTING) 92 mg/dL See_Comment Nov 23, 2022 12:09 PM [place] ([facility]) CBC Specimen Type: BLOOD No comment entered. Ordering Provider: JIMENEZ CHESTER Report Released Date/Time: Nov 23, 2022 11:58 AM Reporting Lab: [facility] [address] Performing Lab: [facility] [address] WBC 10.80 10*3/uL 4.0-11.0 RBC 3.87 10*6/uL L 4.6-6.2 HGB 12.1 g/dL L 13.5-17.9 HCT 37.5 L 41-54 MCV 96.9 fL 80-100 MCH 31.3 pg 27-33 MCHC 32.3 g/dL 32.0-37.5 PLT 293 10*3/uL 150-400 MPV 10.3 fL 7.4-10.4 RDW 13.2 11.5-14.5 Nov 23, 2022 12:09 PM [place] ([facility]) TSH W/REFLEX TO FREE T4 Specimen Type: PLASMA No comment entered. Ordering Provider: JIMENEZ CHESTER Report Released Date/Time: Nov 23, 2022 11:58 AM Reporting Lab: [facility] [address] Performing Lab: [facility] [address] TSH 4.59 u[IU]/mL 0.35-4.94 Nov 23, 2022 12:09 PM [place] ([facility]) COMPREHENSIVE METABOLIC PANEL+MG Specimen Type: PLASMA No comment entered. Ordering Provider: JIMENEZ CHESTER Report Released Date/Time: Nov 23, 2022 11:58 AM Reporting Lab: [facility] [address] Performing Lab: [facility] [address] CREATININE 1.2 mg/dL 0.7-1.2 UREA NITROGEN 34 [...] 33 U/L See_Comment .CREAT EGFR(CKD-EPI) 61 See_Comment Nov 23, 2022 12:09 PM [facility]) HEMOGLOBIN A1C Specimen Type: BLOOD Comment: [...] Nov 23, 2022 11:58 AM Reporting Lab: [facility] [address] Performing Lab: [facility] [address] HEMOGLOBIN A1C 7.4 H 4.0-6.0 Vital Signs: [...] % 0 69.5 in 186 lb 27 [facility] ([facility]) Social History: Smoking Status (Most current) and Tobacco Use (All prior to encounter date) This section includes the most current, and the historical, smoking and tobacco- related health factors from the [facility] where the Encounter took place. Current Smoking Status This section includes the most current smoking, or tobacco-related health factor, from the [facility] where the Encounter took place. Date/Time Current Smoking Status Comment Facil ity Nov 23, 2022 11:00 AM VA-TOBACCO FORMER USER [place] ([facility]) Tobacco Use History This section includes a history of the smoking, or tobacco-related health factors, that were collected on or before the date of the Encounter. The data comes from the [place] facility where the Encounter took place. Date/Time Smoking Status/Tobacco Use Comment F acchicho Nov 23, 2022 11:00 AM VA-TOBACCO QUIT 15 YRS OR MORE [facility] ([facility]) Nov 29, 2021 10:00 AM VA-TOBACCO FORMER USER [place] ([facility]) Nov 29, 2021 10:00 AM VA-TOBACCO QUIT 15 YRS OR MORE [place] ([facility]) Oct 21, 2020 10:30 AM VA-TOBACCO FORMER USER [place] ([facility]) Oct 21, 2020 10:30 AM VA-TOBACCO QUIT 15 YRS OR MORE [place] ([facility]) Encounter Notes: All associated encounter notes This section contains the clinical notes associated to the Encounter. Date/Time Encounter Note(s) Provider Source Nov 23, 2022 02:40 PM PHYSICAL THERAPY I NITIAL EVALUATION NOTE: LOCAL TITLE: PT-EVALUATION NOTE STANDARD TITLE: PHYSICAL THERAPY INITIAL EVALUATION NOTE DATE OF NOTE: NOV 23, 2022@14:40 ENTRY DATE: NOV 23, 2022@14:40:26 AUTHOR: CINTHIA JAMESON V EXP COSIGNER: URGENCY: STATUS: COMPLETED Brief Physical Therapy Evaluation for Equipment Provision Dx: other abnormalities of gait/mobility Tx: PT Eval Low Comp 15', Gait Training 15' Active problems - Computerized Problem List is the source for the followin. CAD - Coronary Artery Disease ([facility] [id number]) 2. Diabetes Mellitus Type 2 ([facility] [id number]) 3. HTN - Hypertension ([facility] [id number]) 4. Peripheral neuropathy due to type 2 diabetes mellitus 5. Long-term current use of insulin 6. Hyperlipidemia ([facility] [id number]) SUBJECTIVE: Pt is a 82yo presenting to PT to be evaluated for [...] right foot Falls: Couple near falls where vet caught his balance Home Environment: Single story [...] Physical Therapist Signed: 11/23/2022 15:12 CINTHIA JAMESON ([facility])
--- OUTSIDE RECORDS SUMMARY | 2023-11-14 09:09 | XMS_ITS | Encounter Summary ---
Author Name [place] Organization [place] Address [address] [place] [address] Care Team Providers Care Silk Screen Printing Racker Name Role Phone JIMENEZ CHESTER Primary Care [...] Cherry's Name Patient's Relationship to Policy Cherry [facility] (WNR) MEDICARE ADVANTAGE [facility] (WNR) May 14, 2020 [id number] [phone] PITER CASAS ERD PATIENT Selected Encounter This [...] PRIMARY Sensorineural hearing loss, bilateral RADHA MAKI [facility] September 18, 2023 04:52 PM SECONDARY Encounter for fitting and adjustment of hearing aid RADHA MAKI [facility] Plan of Treatment: Future Appointments (+ 6 months) and Future Tests (+/- 45 days) The Plan of Treatment section includes future care activities for the patient from all [place] treatmentfacilities. This section includes future appointments and future orders which are active, pending or scheduled. Future Appointments This section includes appointments that were scheduled to occur 6 months from the date of the Encounter, up to a maximum of 20 appointments. The data comes from all [place] treatment facilities. Appointment Date/Time Appointment Type Appointme nt Facility Name Nov 08, 2023 10:00 AM AMBULATORY - MEDICINE [facility] ([facility]) Dec 18, 2023 10:45 AM AMBULATORY - REHAB MEDICIN [facility] ([facility]) Encounter Notes: All associated encounter notes [...] AID SERVICE Diagnosis: Bilateral Sensorineural Hearing Loss [place] was accompanied today by his , Shellie. The following hearing aid problem/s were presented: [place] and his are typically seen through [facility]. They reported that the eligibility criteria recently changed and now they have to drive here to [place] for appointments. This is understandably frustrating. would like help pairing his remote control and multi-carrie to his aids. Shellie noted that the manual only provided instructions for battery-powered aids. Reason for visit: Therapeutic hearing aid service Otoscopy: Both Ears: Free of excessive cerumen Hearing Aid Check: - Visual inspection revealed aids in good condition. - Biologic listening check indicated good sound quality from aids. Hearing aids right/left; Issued 12/07/2020 ([facility]): Make: Resound Model: One 61 miniRIC-R Style: [facility] Serial #s: [id number] Acoustics: 2MP, silicone micro molds Action: - Aids cleaned and checked. - Paired remote control and multi-carrie to hearing aids. [place] given brief tutorial per his request, as he has already used both of these devices before. Verified functionality. - [place] and informed that we offer video and phone call appointments for future concerns. They will keep this in mind. Plan: - [place] will contact this clinic if questions or problems arise. - is in agreement with this plan. /riccardo/ MADI MAKI Parking Meter Servicer Signed: 09/18/2023 16:53 MADI MAKI [facility]
--- OUTSIDE RECORDS SUMMARY | 2023-11-14 09:09 | XMS_ITS | Encounter Summary ---
Author Name [facility] [place] Organization [place] Address [address] [place] [address] Care Team Providers Care Supervisor Pastry Name Role Phone JIMENEZ CHESTER Primary Care [...] Cherry's Name Patient's Relationship to Policy Cherry [facility] (WNR) MEDICARE ADVANTAGE [facility] (WNR) May 14, 2020 [id number] [phone] PITER CASAS ERD PATIENT Selected Encounter This section includes the information on record at [place] for the Encounter. Date/Time Encounter Type Encounter Description Reason Pro vider Source Oct 18, 2023 12:00 AM Outpatient Encounter EVENT (HISTORICAL) IHE Encounter Template Text not used by [facility] Plan of Treatment: Future Appointments (+ 6 [...] 20 appointments. The data comes from all [place] treatment facilities. Appointment Date/Time Appointment Type Appointme nt Facility Name Nov 08, 2023 10:00 AM AMBULATORY - MEDICINE [facility] ([facility]) Dec 18, 2023 10:45 AM AMBULATORY - REHAB [facility] ([facility]) Active, Pending, and Scheduled Orders This section includes a listing of several types of active, pending, and scheduled orders, including clinic medications orders, diagnostic test orders, procedure orders and consult orders; where the start date of the order is 45 days before the date of the Encounter or 45 days after the date of theEncounter. The data comes from all [place] treatment facilities. Test Date/Time Test Type Test Details Facility Name Nov 08, 2023 11:01 AM Consult Order REHAB OUTP T POWER MOBILITY Cons Hook Up Driver's Choice [facility] ([facility])
--- OUTSIDE RECORDS SUMMARY | 2023-11-14 09:09 | XMS_ITS | Encounter Summary ---
Author Name [facility] [place] Address [address] [place] [address] Care Team Providers Care Twitchell Operator Name Role Phone RABIA MOLINA Primary Care Provider Unavailabl e Insurance Providers: [...] Cherry's Name Patient's Relationship to Policy Cherry [facility] (WNR) MEDICARE ADVANTAGE [facility] (WNR) May 14, 2020 [id number] [phone] PITER CASAS ERD PATIENT Selected Encounter This section includes the information on record at [place] for the Encounter. Date/Time Encounter Type Encounter Description Reason Provider Source Jan 23, 2023 01:00 PM OFFICE O/P EST HI 40-54 MIN PRIMARY CARE/MEDICINE ICD-10-CM I50.9 Heart failure, unspecified RABIA MOLINA Encounter Template Text not used by [place] Assessments - Encounter Diagnoses This section includes the primary and secondary diagnoses documented for the Encounter. Date/Time Primary/Secondary Diagnosis Diagnosis Name Provider Source Jan 23, 2023 08:06 PM PRIMARY Heart failure, unspecified ARBIA MOLINA ([facility]) Jan 23, 2023 08:06 PM SECONDARY Athscl heart disease of [place] coronary artery w/o ang pctrs RABIA MOLINA ([facility]) Jan 23, 2023 08:06 PM SECONDARY Contact with and exposure to other hazardous substances RABIA MOLINA [facility] ([facility]) Jan 23, 2023 08:06 PM SECONDARY Essential (primary) hypertension RABIA MOLINA [place] ([facility]) Jan 23, 2023 08:06 PM SECONDARY Type 2 diabetes mellitus with diabetic polyneuropathy RABIA MOLINA ([facility]) Jan 23, 2023 08:06 PM SECONDARY Type 2 diabetes mellitus without complications RABIA MOLINA [place] ([facility]) Plan of Treatment: Future Appointments (+ 6 months) and Future Tests (+/- 45 days) The Plan of Treatment section includes future care activities for the patient [facility] [place] [facility] This section includes future appointments and future orders which are active, pending or scheduled. Future Appointments This section includes appointments that were scheduled to occur 6 months from the date of the Encounter, up to a maximum of 20 appointments. The data comes from all [facility] facilities. Appointment Date/Time Appointment Type Appointme nt Facility Name Feb 15, 2023 12:45 PM AMBULATORY - NONE [facility] Feb 20, 2023 07:01 AM AMBULATORY - NONE [facility] Feb 23, 2023 11:00 AM AMBULATORY - MEDICINE [facility] ([facility]) Mar 09, 2023 08:41 PM AMBULATORY - NONE [facility] Apr 12, 2023 11:56 PM AMBULATORY - NONE [facility] Apr 16, 2023 09:26 PM AMBULATORY - NONE [facility] May 01, 2023 06:28 PM AMBULATORY - NONE [facility] Lab Results: +/- 30 days of the encounter This section includes the Chemistry and Hematology Lab Results on record with [place] for the patient. Radiology Reports and Pathology Reports are provided separately, in subsequent sections. Lab Results This section contains the Chemistry/Hematology Results that were resulted 30 days before or 30 daysafter the date of the Encounter. Date/Time Source Result Type Result - Unit Interpretation Reference Range Comment Jan 23, 2023 02:14 PM [place] ([facility]) BNP Specimen Type: PLASMA No comment entered. Ordering Provider: RABIA MOLINA Report Released Date/Time: Jan 23, 2023 02:00 PM Reporting Lab: [facility] [id number] Performing Lab: [facility] [id number] BNP 1549 pg/mL H <99 Jan 23, 2023 02:14 PM [place] ([facility]) BASIC METABOLIC PANEL+MG Specimen Type: PLASMA No comment entered. Ordering Provider: RABIA MOLINA Report Released Date/Time: Jan 23, 2023 02:00 PM Reporting Lab: [facility] [id number] Performing Lab: [facility] [id number] CREATININE 1.2 mg/dL 0.7-1.2 UREA NITROGEN 35 mg/dL H 8-26 GLUCOSE 239 mg/dL H 70-100 SODIUM 140 mmol/L 136-145 POTASSIUM 5.1 mmol/L 3.5-5.1 CHLORIDE 109 mmol/L H 98-107 CO2 21 mmol/L L 22-29 CALCIUM 9.4 mg/dL 8.4-10.2 MAGNESIUM 1.7 mg/dL 1.6-2.6 ANION GAP 10 mmol/L 5-15 .CREAT EGFR(CKD-EPI) 61 >60 Vital Signs: All taken on the encounter date This section contains inpatient and outpatient Vital Signs collected on the date of the Encounter. Date/Time Temperature Pulse Blood Pressure Respiratory Rate SP02 Pain Height Weight Body Mass Index Source Jan 23, 2023 12:55 PM 97.5 F 94 /min 112/72 mm[Hg] 16 /min 95 % 0 69.5 in 190.[address] [facility] ([facility]) Social History: Smoking Status (Most current) and Tobacco Use (All prior to encounter date) This section includes the most current, and the historical, smoking and tobacco- related health factors from the [place] facility where the Encounter took place. Current Smoking Status This section includes the most current smoking, or tobacco-related health factor, from the [place] facility where the Encounter took place. Date/Time Current Smoking Status Comment Federico ity Nov 23, 2022 11:00 AM [place]-TOBACCO FORMER USER [place] ([facility]) Tobacco Use History This section includes a history of the smoking, or tobacco-related health factors, that were collected on or before the date of the Encounter. The data comes from the [place] facility where the Encounter took place. Date/Time Smoking Status/Tobacco Use Comment F acility Nov 23, 2022 11:00 AM VA-TOBACCO QUIT 15 YRS OR MORE [place] ([facility]) Nov 29, 2021 10:00 AM VA-TOBACCO FORMER USER [place] ([facility]) Nov 29, 2021 10:00 AM VA-TOBACCO QUIT 15 YRS OR MORE [place] ([facility]) Oct 21, 2020 10:30 AM VA-TOBACCO FORMER USER [place] ([facility]) Oct 21, 2020 10:30 AM VA-TOBACCO QUIT 15 YRS OR MORE [place] ([facility]) Encounter Notes: All associated encounter notes This section contains the clinical notes associated to the Encounter. Date/Time Encounter Note(s) Provider Source Jan 26, 2023 02:24 PM ADDENDUM: LOCAL TITLE: Addendum STANDARD TITLE: ADDENDUM DATE OF NOTE: JAN 26, 2023@14:24:46 ENTRY DATE: JAN 26, 2023@14:24:47 AUTHOR: LISA ALCANTAR EXP COSIGNER: URGENCY: STATUS: COMPLETED Phoned . [place] was not available. Spoke with Sonali. SHANNAN verified. -[place] was prescribed: -Furosemide 40mg daily -Spironalactone 25 mg daily -Picked up prescriptions on sunday -Taking daily -Swelling in legs have gone down -Lost 3.5 lbs since 01/24/23 -SOB has gotten better -Has been sleeping in bed now -used to sleep in his chair -Will be getting labs done on 01/29/23 at [place] for the [facility] Plan: -PCP alerted as FYI -Medications added to NON VA medlist Phone call: 7 min /riccardo/ Lisa Alcantar RN [facility] Signed: 01/26/2023 14:32 Receipt Acknowledged By: 01/26/2023 [...] 01/26/2023 15:25 /riccardo/ Lisa Alcantar RN [facility] LISA ALCANTAR ([facility]) Jan 25, 2023 02:12 PM REPORT OF [...] 01/26/2023 15:25 /riccardo/ Lisa Alcantar RN [facility] 01/26/2023 ADDENDUM STATUS: COMPLETED Phoned . [place] was not available. Spoke with Sonali. SHANNAN verified. - was prescribed: -Furosemide 40mg daily -Spironalactone 25 mg daily -Picked up prescriptions on sunday -Taking daily -Swelling in legs have gone down -Lost 3.5 lbs since 01/24/23 -SOB has gotten better -Has been sleeping in bed now -used to sleep in his chair -Will be getting labs done on 01/29/23 at [facility] for the [facility] Heart [facility] Plan: -PCP alerted as FYI -Medications added to NON VA medlist Phone call: 7 min /riccardo/ Lisa Alcantar RN [facility] Signed: 01/26/2023 14:32 Receipt Acknowledged By: * AWAITING SIGNATURE * RABIA MOLINA BRENDA K [place] ([facility]) Jan 25, 2023 01:08 PM LETTERS: LOCAL TITLE: FOLLOW UP RESULTS LETTER STANDARD TITLE: LETTERS DATE OF NOTE: JAN 25, 2023@13:08 ENTRY DATE: JAN 25, 2023@13:08:05 AUTHOR: RABIA MOLINA EXP COSIGNER: URGENCY: STATUS: COMPLETED [facility] [address] [place] [address] Jan JUNG CASAS [address] [facility] [id number] Dear : I am writing to inform you of [...] staff or me at the following number: [phone] (Paden) Sincerely, RABIA MOLINA MD PHYSICIAN RABIA MOLINA ([facility]) Jan 23, 2023 01:10 PM PRIMARY CARE NOTE: LOCAL TITLE: [facility] PROGRESS NOTE-[place] STANDARD TITLE: PRIMARY CARE NOTE DATE OF NOTE: JAN 23, 2023@13:10 ENTRY DATE: JAN 23, 2023@07:16:01 AUTHOR: RABIA MOLINA EXP COSIGNER: URGENCY: STATUS: COMPLETED Type of Visit: Face to Face Reason for Visit: Hospital follow-up HPI: 82 year-old MALE here for hospital follow-up. [place] was admitted to the hospital on 12/27/2022 for hyperkalemia and decompensated heart failure. was admitted to [facility] due to no beds at the [place]. Admission date was 12/27/2022. [place] did have an acute kidney injury with the hyperkalemia. His lisinopril was held. He had a recent non-STEMI, left atrial thrombus, atrial fibrillation, coronary artery disease, hypertension, type 2 diabetes. On 01/01/2023 was back to baseline creatinine prior ejection fraction was 30% with repeat echo showing ejection fraction of 10 to 20%. Veterans diuresed with Lasix drip. did end up with COVID infection and completed 3 days of remdesivir. was discharged from the hospital on 01/08/2023. Final diagnosis was acute decompensated heart failure with reduced ejection fraction he was discharged to the [facility] TCU. Final diagnosis included acute decompensated [...] Has no waterpill at this time. Co-managed: [facility] - seeing provider tomorrow. Home medications: reviewed [...] Weight: up 4.6 lb from last visit Review of systems: otherwise negative Past Medical [...] Rare 4. Illicit drugs: none 5. Employment: [employer] work 39 years 6. Service: [employer] Allergies: NKDA Physical Exam: Temp: 97.5 F [...] with Reduced EF - Follow-up planned at [facility] (private insurance) - LDL goal < 70, [...] P* 3 03/09/2021 [facility]* 2 07/24/2020 [facility] 1 07/03/2020 [facility]* INFLUENZA, HIGH-DOSE, QUADRIVALEN* 1 04/05/2022 [facility] PNEUMOCOCCAL CONJUGATE PCV 13 01/21/2015 [facility]* <C> PNEUMOCOCCAL POLYSACCHARIDE PPV23 02/09/2011 [facility]* 03/06/2006 [facility]* TDAP 01/21/2021 [place] * <C> ZOSTER RECOMBINANT 2 01/21/2021 [place] * 1 10/21/2020 [place] * RTC in 11/2023 annual visit CPRS [...] Allergy/ADR Data available for this patient [facility] No Known Allergies Active and Recently [...] Exposure Screening Follow-Up: Exposure Concern(s): 01/23/2023 Agent Newport - Toxic Exposure Concern Other Environmental Concerns - Toxic Exposure Concern Jet fuel Follow-up Question(s): 01/23/2023 No Questions - Toxic Exposure Concern [place]/caregiver has health or medical concerns related to their concern of environmental exposure. Concern: coronary artery disease, congestive heart failure The following connections were provided to the [place]/caregiver: [place] [employer] (VBA) for Benefits/claims: Manager Recovery/Organization (VSO) https://www.Ecohauso.org/find-a- cvso.html /es/ RABIA MOLINA MD PHYSICIAN Signed: 01/23/2023 20:13 RABIA MOLINA ([facility]) Jan 23, 2023 12:58 PM PRIMARY CARE NOTE: [facility] TITLE: [facility] PROGRESS NOTE-[place] STANDARD TITLE: PRIMARY CARE NOTE DATE OF NOTE: JAN 23, 2023@12:58 ENTRY DATE: JAN 23, 2023@12:58:56 AUTHOR: ZARI ANTHONYIGNER: URGENCY: STATUS: COMPLETED TYPE OF VISIT: Appointment [...] A DAY NEEDED Toxic Exposure Screening: The [place]/caregiver was asked if they believe the [place] experienced any toxic exposure(s), such as Airborne Hazards and Open Burn Pit, [place] War related exposures, Agent Newport, Radiation, contaminated water at [place] or other such exposures, 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 Printed information was offered and provided if desired. Other exposures: Comment: Jet fuel [place]/caregiver was made aware of educational resources and printed information was offered and provided if desired. No questions at this time /caregiver was informed of local points of contact. Contact information for local resources: - Veterans Benefits for claims submission: Have the call or have them visit the following web address for online scheduling: [email or web address]/ s/ - [place] Healthcare Enrollment: 9-418-539-VETS ([phone]) - Find a Manager Recovery (VSO): Have the call 4-765-HKZOJBL or look up their VSO at: https://www.Ecohauso.org/find-a- cvso.html - [facility] Navigators: Dr. Hilton Brooke: [phone] Dr. Doug Chirinos: [phone] Toxic Exposure Screening Follow-Up reminder is needed. [...] Not worried about housing near future The [place] reports the following: Within the past 12 months, you worried whether your food would run out before you got money to buy more. Never true Within the past 12 months, the food you bought just didn't last and you didn't have money to get more. Never true /riccardo/ ZARI ANTHONY LPN Signed: 01/23/2023 13:03 MILANA ANTHONY ([facility])
--- OUTSIDE RECORDS SUMMARY | 2023-11-14 09:09 | XMS_ITS | Encounter Summary ---
Author Name [place] Address [address] [place] [address] Care Team Providers Care Relay Associate Name Role Phone JIMENEZ CHESTER Primary Care [...] Cherry's Name Patient's Relationship to Policy Cherry [facility] (WNR) MEDICARE ADVANTAGE [facility] (WNR) May 14, 2020 [id number] [phone] PITER CASAS ERD PATIENT Selected Encounter This section includes the information on record at [place] for the Encounter. Date/Time Encounter Type Encounter Description Reason Provider Source Aug 10, 2023 10:45 AM HEARING AID REPAIR/MODIFYIN G AUDIOLOGY ICD-10-CM H90.3 Sensorineural hearing loss, bilateral LUDWIN CORCORAN IHEmerald Encounter Template Text not used by [place] Assessments - Encounter Diagnoses This section includes the primary and secondary diagnoses documented for the Encounter. Date/Time Primary/Secondary Diagnosis Diagnosis Name Provider Source Aug 10, 2023 11:22 AM PRIMARY Sensorineural hearing loss, bilateral LUDWIN CORCORAN [facility] Aug 10, 2023 11:22 AM SECONDARY Encounter for fitting and adjustment of hearing aid LUDWIN CORCORAN [facility] Plan of Treatment: Future Appointments (+ 6 months) and Future Tests (+/- 45 days) The Plan of Treatment section includes future care activities for the patient from all [place] treatmentfacilities. This section includes future appointments and future orders which are active, pending or scheduled. Future Appointments This section includes appointments that were scheduled to occur 6 months from the date of the Encounter, up to a maximum of 20 appointments. The data comes from all [place] treatment facilities. Appointment Date/Time Appointment Type Appointme nt Facility Name September 18, 2023 01:00 PM AMBULATORY - SURGERY [facility] Nov 08, 2023 10:00 AM AMBULATORY - MEDICINE [facility] [facility] ([facility]) Dec 18, 2023 10:45 AM AMBULATORY - REHAB MEDICIN [facility] ([facility]) Encounter Notes: All associated encounter notes This section contains the clinical notes associated to the Encounter. Date/Time Encounter Note(s) Provider Source Aug 10, 2023 11:14 AM AUDIOLOGY NOTE: LOCAL TITLE: AUDIOLOGY CLINIC NOTE STANDARD TITLE: AUDIOLOGY NOTE DATE OF NOTE: AUG 10, 2023@11:14 ENTRY DATE: AUG 10, 2023@11:14:20 AUTHOR: MICK CORCORAN EXP COSIGNER: URGENCY: STATUS: COMPLETED AUDIOLOGY CLINIC NOTE [...] CLEARED VENTS Problem will require repair by propellant charge loader and left aid was mailed to propellant charge loader today. Also sent micro cary in for repair Device can be programmed/ mailed to [place] once repaired. Ordered replacement remote control 2-mail to was counseled using a curriculum on the cleaning,care and use of hearing aids. Plan: Vet will contact call center as needed for follow up Patient is in agreement with this plan. Cargo Vessel Stewardess:MAIL AID AND DEVICES TO RECEIVED /riccardo/ MICK CORCORAN AUDIO TECH Signed: 08/10/2023 11:22 08/16/2023 ADDENDUM STATUS: COMPLETED RECEIVED, CERTIFIED AND ISSUED RESOUND REMOTE CONTROL 2 DEVICE MAILED TO AT THE ADDRESS ON FILE /riccardo/ MICK CORCORAN AUDIO TECH Signed: 08/16/2023 16:07 08/16/2023 ADDENDUM STATUS: COMPLETED MAILING REPAIRED HEARING AIDS TO THE ADDRESS ON FILE /riccardo/ MICK Rand [facility] CUPOLA MELTER HELPER Signed: 08/16/2023 17:33 08/17/2023 ADDENDUM STATUS: COMPLETED RECEIVED AND CERTIFIED REPAIRED RESOUND MICRO CARY DEVICE MAILED TO AT THE ADDRESS ON FILE /riccardo/ MICK CORCORAN AUDIO TECH Signed: 08/17/2023 15:12 MICK CORCORAN [facility]
--- OUTSIDE RECORDS SUMMARY | 2023-11-14 09:09 | XMS_ITS | Encounter Summary ---
Author Name [facility] Organization [facility] Address [address] [place] [address] Care Team Providers Care Metal Drilling Machine Operator Name Role Phone JIMENEZ CHESTER [...] Cherry's Name Patient's Relationship to Policy [facility] (WNR) MEDICARE ADVANTAGE [facility] (WNR) May 14, 2020 [id number] [phone] PITER CASAS ERD PATIENT Selected Encounter This [...] 20 appointments. The data comes from all [place] treatment facilities. Appointment Date/Time Appointment Type Appointme nt Facility Name Feb 23, 2023 11:00 AM AMBULATORY - MEDICINE [facility] ([facility]) Mar 09, 2023 08:41 PM AMBULATORY - NONE [facility] Apr 12, 2023 11:56 PM AMBULATORY - NONE [facility] Apr 16, 2023 09:26 PM AMBULATORY - NONE [facility] May 01, 2023 06:28 PM [facility] Aug 10, 2023 10:45 AM AMBULATORY - SURGERY [facility] Lab Results: +/- 30 days of the encounter This section includes the Chemistry and Hematology Lab Results on record with OR for the patient. Radiology Reports and Pathology Reports are provided separately, in subsequent sections. Lab Results This section contains the Chemistry/Hematology Results that were resulted 30 days before or 30 daysafter the date of the Encounter. Date/Time Source Result Type Result - Unit Interpretation Reference Range Comment Jan 23, 2023 02:14 PM [place] ([facility]) BNP Specimen Type: PLASMA No comment entered. Ordering Provider: JIMENEZ CHESTER Report Released Date/Time: Jan 23, 2023 02:00 PM Reporting Lab: [facility] [id number] Performing Lab: [facility] [id number] BNP 1549 pg/mL H <99 Jan 23, 2023 02:14 PM [facility] ([facility]) BASIC METABOLIC PANEL+MG Specimen Type: PLASMA No comment entered. Ordering Provider: JIMENEZ CHESTER Report Released Date/Time: Jan 23, 2023 02:00 PM Reporting Lab: [facility] [id number] Performing Lab: [facility] [id number] CREATININE 1.2 mg/dL 0.7-1.2 UREA NITROGEN 35 [...] PM PHARMACY NOTE: LOCAL TITLE: PHARMACY NON [facility] MEDICATIONS STANDARD TITLE: PHARMACY NOTE DATE OF NOTE: FEB 20, 2023@14:27 ENTRY DATE: FEB 20, 2023@14:27:32 AUTHOR: YELITZA CALVIN EXP COSIGNER: URGENCY: STATUS: COMPLETED [facility] RECEIVED faxed prescription(s) from [facility] Provider: Brenda Hart Date RX received: Feb Prescription request REDIRECTED via FAX to [facility] to submit a Prosthetic consult eRx Prescription Information: Heel Protection Pad Skil-Care ultrasoft one size fits most SIG: Wear daily on both feet to protect heels Quantity:2 Refills: 1 /riccardo/ YELITZA CALVIN, PharmD CLINICAL PHARMACIST Signed: 02/20/2023 14:33 Receipt Acknowledged By: 02/21/2023 09:12 /riccardo/ Araceli Cottrell RN, BSN, [facility] eating disorder specialist Commercial Photographer YELITZA CALVIN [facility]
--- OUTSIDE RECORDS SUMMARY | 2023-11-14 09:09 | XMS_ITS | Encounter Summary ---
Author Name [facility] [place] Organization [facility] [place] Address [address] [place] [address] Care Team Providers Care Client Onboarding Analyst Name Role Phone JIMENEZ CHESTER Primary Care [...] Cherry's Name Patient's Relationship to Policy Cherry [facility] (WNR) MEDICARE ADVANTAGE [facility] (WNR) May 14, 2020 [id number] [phone] PITER CASAS ERD PATIENT Selected Encounter This section includes the information on record at [place] for the Encounter. Date/Time Encounter Type Encounter Description Reason Provider Source Nov 08, 2023 10:00 AM OFFICE O/P EST HI 40 MIN PRIMARY CARE/MEDICINE ICD-10-CM E11.9 Type 2 diabetes mellitus without complications JIMENEZ CHESETR [facility] Encounter Template Text not used by [place] Assessments - Encounter Diagnoses This section includes the primary and secondary diagnoses documented for the Encounter. Date/Time Primary/Secondary Diagnosis Diagnosis Name Provider Source Nov 09, 2023 07:19 AM PRIMARY Type 2 diabetes mellitus without complications JIMENEZ CHESTER ([facility]) Nov 09, 2023 07:19 AM SECONDARY Athscl heart disease of [place] coronary artery w/o ang pctrs HENRIKJIMENEZ ([facility]) Nov 09, 2023 07:19 AM SECONDARY Encntr for general adult medical exam w/o abnormal findings JIMENEZ CHESTER ([facility]) Nov 09, 2023 07:19 AM SECONDARY Essential (primary) hypertension JIMENEZ CHESTER ([facility]) Nov 09, 2023 07:19 AM SECONDARY Heart failure, unspecified JIMENEZ CHESTER ([facility]) Nov 09, 2023 07:19 AM SECONDARY Hyperlipidemia, unspecified JIMENEZ CHESTER ([facility]) Nov 09, 2023 07:19 AM SECONDARY Hypothyroidism, unspecified JIMENEZ CHESTER ([facility]) Nov 09, 2023 07:19 AM SECONDARY penitentiary (current) use of insulin JIMENEZ CHESTER ([facility]) Plan of Treatment: Future Appointments (+ 6 months) and Future Tests (+/- 45 days) The Plan of Treatment section includes future care activities for the patient from all [place] [facility] [place]. This section includes future appointments and future orders which are active, pending or scheduled. Future Appointments This section includes appointments that were scheduled to occur 6 months from the date of the Encounter, up to a maximum of 20 appointments. The data comes from all [place] treatment facilities. Appointment Date/Time Appointment Type Appointme nt Facility Name Dec 18, 2023 10:45 AM AMBULATORY - REHAB MEDICIN E [facility] ([facility]) Active, Pending, and Scheduled Orders This section includes a listing of several types of active, pending, and scheduled orders, including clinic medications orders, diagnostic test orders, procedure orders and consult orders; where the start date of the order is 45 days before the date of the Encounter or 45 days after the date of theEncounter. The data comes from all [place] treatment facilities. Test Date/Time Test Type Test Details Facility Name Nov 08, 2023 11:01 AM Consult Order REHAB OUTP T POWER MOBILITY Cons Accounting Lecturer's Choice [facility] ([facility]) Vital Signs: All taken on the encounter date This section contains inpatient and outpatient Vital Signs collected on the date of the Encounter. Date/Time Temperature Pulse Blood Pressure Respiratory Rate SP02 Pain Height Weight Body Mass Index Source Nov 08, 2023 09:55 AM 98.7 72 116/69 16 97 0 69 166.1 25 [facility] ([facility]) Social History: Smoking Status (Most current) and Tobacco Use (All prior to encounter date) This section includes the most current, and the historical, smoking and tobacco- related health factors from the [place] facility where the Encounter took place. Current Smoking Status This section includes the most current smoking, or tobacco-related health factor, from the [place] facility where the Encounter took place. Date/Time Current Smoking Status Comment Facil ity Nov 08, 2023 10:00 AM VA-TOBACCO FORMER USER [place] ([facility]) Tobacco Use History This section includes a history of the smoking, or tobacco-related health factors, that were collected on or before the date of the Encounter. The data comes from the [place] facility where the Encounter took place. Date/Time Smoking Status/Tobacco Use Comment F acility Nov 08, 2023 10:00 AM VA-TOBACCO QUIT 15 YRS OR MORE [place] ([facility]) Nov 23, 2022 11:00 AM VA-TOBACCO FORMER USER [place] ([facility]) Nov 23, 2022 11:00 AM VA-TOBACCO QUIT 15 YRS OR MORE [place] ([facility]) Nov 29, 2021 10:00 AM VA-TOBACCO FORMER USER [place] ([facility]) Nov 29, 2021 10:00 AM VA-TOBACCO QUIT 15 YRS OR MORE [place] ([facility]) Oct 21, 2020 10:30 AM VA-TOBACCO FORMER USER [place] ([facility]) Oct 21, 2020 10:30 AM VA-TOBACCO QUIT 15 YRS OR MORE [place] ([facility]) Encounter Notes: All associated encounter notes This section contains the clinical notes associated to the Encounter. Date/Time Encounter Note(s) Provider Source Nov 08, 2023 10:18 AM H & P NOTE: LOCAL TITLE: [facility] ANNUAL VISIT STANDARD TITLE: H & P NOTE DATE OF NOTE: NOV 08, 2023@10:18 ENTRY DATE: NOV 08, 2023@08:30:44 AUTHOR: JIMENEZ CHESTER EXP COSIGNER: URGENCY: STATUS: COMPLETED Type of Visit: Face to Face Reason for Visit: Annual review of chronic medical conditions HPI: 83 year-old MALE here for his annual visit. was last seen on 11/23/2022 for his annual visit. Since that time he was followed up on 01/23/2023 after hospital discharge for hyperkalemia and decompensated heart failure. Since that time Emmet has had care in the community wound care, cardiac rehab. He was seen in the emergency department 03/08/2023, 04/11/2023, 04/16/2023 and 04/30/2023. Since that time he has been seen with audiology. In and out of the hospital over the last year. He is still working on the sore on the left leg. Had the amputation of the right leg. Diabetes has been out of control at this point. He is working with provider at [facility]. 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 His diabetes at this time is uncontrolled. He had significantly elevated hemoglobin A1c in September 2023 at 11.3. He has subsequently received a Dexcom 3 monitor and his is monitoring closely. They have increased his insulin glargine to 34 units nightly and will be planning to increase this to 36 units. They are currently using insulin aspart 8 units with a sliding scale. They are having issues obtaining the insulin that they need for him. There is an insulin aspart that is a specific type that they are not able to get a hold of and the insurance company has been reluctant to allow any substitution. They are down to only 2 pens left. Unfortunately when they got them the vials instead of the pens the insulin syringes are on backorder and she is unable to manage his insulin aspart. Through discussion Rory will be receiving his insulin aspart through the [place]. Co-managed: [facility] - Melquiades Man MD - 11/06/2023 Annual medicare visit, DM, Hypothyroid, HTN, HLD, HFrEF - CAD, NSTEMI, paroxysmal atrial fibrillation, GERD, phimosis Home medications: reviewed and updated Chest pain/chest pressure: none Shortness of breath: no concerns Palpitations: none Lower extremity swelling: mild swelling left lower leg Home blood pressures: BP's good with therapy and wound care 100/50's Weight: 190-195 prior to being ill, now 166.1 without prosthesis GI symptoms: Heartburn/Reflux: none, pantoprazole working well Diarrhea/Constipation: regular Skin: sore left heel, working with non-VA wound clinic Home blood sugar: 110 currently Review of systems: otherwise negative Past Medical History: 1. Coronary artery disease 2. Congestive heart failure with reduce Ejection fraction (10-20%) 3. Hypertension 4. Hyperlipidemia 5. Type 2 diabetes 6. peripheral neuropathy 7. Long-term current use of insulin 8. Macular edema 9. Exposure to potentially hazardous substance 10. Hypothyroidism Past Surgical History: 1. CABG x 4 2001 2. 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 Sister x 2 with atrial fibrillation 2. Sister - abdominal aneurysm 3. Sister - colon cancer, diabetes 4. Sister x 2 - borderline diabetes 5. Brother - CKD 6. Mother - diabetes, CAD 7. Father - CAD Social History: 1. Marital status: 2. Tobacco: Former smoker: Quit 1968 3. EtOH: Rare 4. Illicit drugs: none 5. Employment: [employer] work 39 years 6. Service: [employer] Allergies: NKDA Physical Exam: Temp: 98.7 F [37.1 C] (11/08/2023 09:55) Pulse:72 (11/08/2023 09:55) BP: 116/69 (11/08/2023 09:55) Resp: 16 (11/08/2023 09:55) O2 Sat: 97% (11/08/2023 09:55) Weight: 166.1 lb [75.34 kg] (11/08/2023 09:55) BMI: 24.6 Pain: 0 (11/08/2023 09:55) General: AAOx3, NAD, Healthy HEENT: AT/NC CV: Regular rate and rhythm, no murmurs, no rubs, no gallops Lungs: clear to auscultation bilaterally, no crackles, no wheezing Abd: soft, NT/ND, No hepatosplenomegaly, +BS, no rebound, no guarding Extrem: no clubbing, cyanosis, or edema on left lower leg (compression sock) Right leg below the knee amputation. Labs: [facility]: 10/04/2023 Hemoglobin A1c 11.6 [facility] 11/06/2023 WBC 8.5, Hg 12.0, HCT 36.7, plt 273, total cholesterol 156, Triglycerides 124, HDL 56, LDL 75, ALT 21, TSH 2.24, sodium 139, potassium 4.8, Chloride 102, CO2 23, AG 14, Glucose 137, calcium 10.0, BUN 42, Cr1.65, eGFR 41 Imaging Assessment/Plan: 1. Coronary artery disease/Congestive heart failure/Hyperlipidemia/Hyp ertension - Recent NSTEMI with significant CAD - CHF with Reduced EF - Follow-up planned at [facility] (private insurance) - LDL goal < 70, BP goal < 140/90 - Continue aspirin 81 mg daily - Continue clopidegril 75 mg daily - Continue atorvastatin 40 mg daily - Continue metoprolol succinate 25 mg 1/2 tablet daily - Continue Farxiga 10 mg daily - Continue nitroglycerin 0.4 mg sublingual as needed - Patient will follow-up through [facility] with PCP 2. Type 2 diabetes with peripheral neuropathy - Continue to monitor glucose with Dexcom monitor - Last HgA1C 11.6 10/04/2023 - Insulin glargine 34 units at bedtime - Insulin aspart 8 units 3 times daily with meals - Continue sliding scale insulin - [facility] - Will follow-up with non-VA PCP - Discontinue Metformin 1000 mg twice daily [...] 5 years - Vaccinations: IM - Immunizations ADMINISTERED Immunization Series Date Facility Reaction Info COVID-19 (MODERNA), MRNA, LNP-S,* 1 03/29/2022 [facility] COVID-19 (PFIZER), MRNA, LNP-S, * 3 03/09/2021 [facility]* COVID-19 (PFIZER), MRNA, LNP-S, * 2 07/24/2020 [facility]* COVID-19 (iCreate), MRNA, LNP-S, * 1 07/03/2020 [facility]* INFLUENZA, HIGH-DOSE, QUADRIVALE* 1 04/05/2022 [facility] PNEUMOCOCCAL CONJUGATE PCV 13 01/21/2015 [facility]* <C> PNEUMOCOCCAL POLYSACCHARIDE PPV23 02/09/2011 [facility]* PNEUMOCOCCAL POLYSACCHARIDE PPV23 03/06/2006 [facility]* TDAP 01/21/2021 [facility]* <C> ZOSTER RECOMBINANT 2 01/21/2021 [place]* ZOSTER RECOMBINANT 1 10/21/2020 [place]* RTC in 1 year annual visit CPRS chart review/chart prep/JLV review: 18 minutes Time with patient: 38 minutes Chart completion: 3 minutes Clinical Reminders: Medication Reconciliation: Education Evaluations *Was medication education provided for NEW medications or CHANGES to medications? (including medication name, dose, route, reason for use, and potential side effects). No new medications or medication changes during this encounter. TERATOGENIC MED & CONTRACEPTION REVIEW (Optional)... ======= MEDICATION RECONCILIATION ======= List Given: An updated medication list was [...] Allergy/ADR Data available for this patient [facility] No Known Allergies Active and Recently Outpatient Medications (including Supplies): Issue Date Status Last Fill Active Outpatient Medications Refills Expiration 1) CADEXOMER IODINE 0.9% TOP GEL Qty: 40 ACTIVE Issu:02-15-23 for 30 days Sig: APPLY THIN LAYER Refills: 1 Last:02-20-23 TOPICALLY DIRECTED FOLLOWING WOUND Expr:02-16-24 CARE ORDERS 2) DRESSING,MEPILEX 4IN X 4IN Qty: 10 for ACTIVE Issu:02-15-23 30 days Sig: APPLY 1 DRESSING Refills: 1 Last:02-20-23 TOPICALLY DIRECTED USE FOLLOWING Expr:02-16-24 WOUND CARE ORDERS 3) GAUZE PAD 4IN X 4IN 8-PLY NONSTERILE ACTIVE Issu:02-15-23 Qty: 200 for 30 days Sig: USE GAUZE Refills: 1 Last:02-20-23 TOPICALLY DIRECTED APPLY ONE TO Expr:02-16-24 EACH WOUND AND NEEDED FOLLOWING WOUND CARE ORDERS Issue Date Status Last Fill Pending Outpatient Medications Refills Expiration 1) INSULIN ASPART (HUMAN) INJ Qty: 10 PENDING Sig: INJECT 8 UNITS UNDER THE SKIN Refills: 0 BEFORE MEALS 2) NEEDLE,PEN 31G,8MM Qty: 300 Sig: USE 1 PENDING NEEDLE UNDER THE SKIN DIRECTED Refills: 0 *DISPOSE OF IN A HARD-PLASTIC CONTAINER WITH A SCREW-ON LID CONTACT GARBAGE HAULER FOR PROPER DISPOSAL Start Date Active Non-VA Medications Refills Expiration 1) Non-VA APIXABAN 5MG TAB SiMG MOUTH ACTIVE EVERY 12 HOURS 2) Non-VA ATORVASTATIN CALCIUM 40MG TAB ACTIVE SiMG MOUTH DAILY 3) Non-VA CLOPIDOGREL BISULFATE 75MG TAB ACTIVE SiMG MOUTH DAILY 4) Non-VA CONTOUR NEXT (GLUCOSE) TEST STRIP ACTIVE Si STRIP THREE TIMES A DAY 5) Non-VA DAPAGLIFLOZIN 10MG TAB SiMG ACTIVE MOUTH DAILY 6) Non-VA FUROSEMIDE 20MG TAB SiMG ACTIVE MOUTH DAILY 7) Non-VA INSULIN ASPART (HUMAN) INJ Sig: ACTIVE 10 UNITS UNDER THE SKIN BEFORE MEALS 8) Non-VA INSULIN GLARGINE 300UNITS/ML 3ML ACTIVE PEN INJ Si UNITS UNDER THE SKIN DAILY 9) Non-VA LEVOTHYROXINE NA (SYNTHROID) ACTIVE 75MCG TAB SiMCG MOUTH EVERY DAY 10) Non-VA METOPROLOL SUCCINATE TAB,SA Sig: ACTIVE 12.5 MG MOUTH TWICE A DAY 11) Non-VA MIRTAZAPINE TAB Si.5 MG ACTIVE MOUTH AT BEDTIME 12) Non-VA NEEDLE,PEN 32G,6MM Si NEEDLE ACTIVE UNDER THE SKIN FOUR TIMES A DAY 13) Non-VA NITROGLYCERIN 0.4MG SL TAB Sig: ACTIVE 0.4MG UNDER THE TONGUE NEEDED 14) Non-VA NON VA MED NOT LISTED ACTIVE MISCELLANEOUS Sig: ACCU-CHECK ALEJO PLUS METER THREE TIMES A DAY 15) Non-VA PANTOPRAZOLE NA 40MG EC TAB Sig: ACTIVE 40MG MOUTH DAILY 16) Non-VA SPIRONOLACTONE 25MG TAB Sig: ACTIVE 25MG MOUTH DAILY 17) Non-VA TRIAMCINOLONE ACETONIDE 0.1% OINT ACTIVE Sig: SMALL AMOUNT TOPICALLY THREE TIMES A DAY NEEDED Start Date Inactive Non-VA Medications Refills Expiration 1) Non-VA FUROSEMIDE 40MG TAB SiMG DISCONTINUED MOUTH DAILY 2) Non-VA GLIPIZIDE 5MG TAB SiMG MOUTH DISCONTINUED TWICE A DAY 3) Non-VA INSULIN GLARGINE 300UNITS/ML 3ML DISCONTINUED PEN INJ Si UNITS UNDER THE SKIN DAILY 4) Non-VA LOSARTAN 25MG TAB Si.5MG DISCONTINUED MOUTH DAILY 5) Non-VA METOPROLOL SUCCINATE 50MG SA TAB DISCONTINUED SiMG MOUTH DAILY 6) Non-VA SACUBITRIL 24MG/VALSARTAN 26MG DISCONTINUED TAB Si TABLET MOUTH TWO TIMES A DAY 28 Total Medications /es/ JIMENEZ CHESTER MD PHYSICIAN Signed: 11/09/2023 07:20 JIMENEZ CHESTER ([facility]) Nov 08, 2023 10:11 AM ADVANCE DIRECTIVE: LOCAL TITLE: AD NOTIFICATION AND SCREENING STANDARD TITLE: ADVANCE DIRECTIVE DATE OF NOTE: NOV 08, 2023@10:11 ENTRY DATE: NOV 08, 2023@10:12:18 AUTHOR: ZARI ANTHONY EXP COSIGNER: URGENCY: STATUS: COMPLETED ADVANCE DIRECTIVE NOTIFICATION: Patient was given written notification of the following rights: 1. Accept or refuse any medical treatment. 2. Complete a durable power of lmsw for health care. 3. Complete a living will. ADVANCE DIRECTIVE SCREENING: Does patient have an Advance Directive? The patient does not have an Advance Directive. The patient wishes to create an Advance Directive for health care. The patient has no questions about completing the Advance Directive forms. /riccardo/ ZARI ANTHONY LPN Signed: 11/08/2023 10:12 ZARI ANTHONY ([facility]) Nov 08, 2023 10:01 AM PRIMARY CARE NOTE: LOCAL TITLE: [facility] PROGRESS NOTE-[place] STANDARD TITLE: PRIMARY CARE NOTE DATE OF NOTE: NOV 08, 2023@10:01 ENTRY DATE: NOV 08, 2023@10:01:58 AUTHOR: ZARI ANTHONY EXP COSIGNER: URGENCY: STATUS: COMPLETED TYPE OF VISIT: Appointment Check In Type of appointment: In-person appointment REASON FOR VISIT: Annual, co-managed [facility]-Dr. Holbrook), non-fasting ALLERGIES: Patient has answered NKA VITAL SIGNS: Blood Pressure: 116/69 (11/08/2023 09:55) Pulse: 72 (11/08/2023 09:55) Respiration: 16 (11/08/2023 09:55) Temperature: 98.7 F [37.1 C] (11/08/2023 09:55) Weight: 166.1 lb [75.34 kg] (11/08/2023 09:55) Height: 69 in [175.3 cm] (11/08/2023 09:55) BMI: 24.6 O2 Sat: 97% (11/08/2023 09:55) Pain: 0 (11/08/2023 09:55) PAIN SCREEN: Patient is not having significant pain that they wish to discuss with their provider today. MEDICATION Active Outpatient Medications (including Supplies): CADEXOMER IODINE 0.9% TOP GEL APPLY THIN LAYER TOPICALLY ACTIVE DIRECTED FOLLOWING WOUND CARE ORDERS DRESSING,MEPILEX 4IN X 4IN APPLY 1 DRESSING TOPICALLY ACTIVE DIRECTED USE FOLLOWING WOUND CARE ORDERS GAUZE PAD 4IN X 4IN 8-PLY NONSTERILE USE GAUZE TOPICALLY ACTIVE DIRECTED APPLY ONE TO EACH WOUND AND NEEDED FOLLOWING WOUND CARE ORDERS Non-VA APIXABAN 5MG TAB 5MG MOUTH EVERY 12 HOURS ACTIVE Non-VA ATORVASTATIN CALCIUM 40MG TAB 40MG MOUTH DAILY ACTIVE Non-VA CLOPIDOGREL BISULFATE 75MG TAB 75MG MOUTH DAILY ACTIVE Non-VA CONTOUR NEXT (GLUCOSE) TEST STRIP 1 STRIP THREE ACTIVE TIMES A DAY Non-VA FUROSEMIDE 40MG TAB 40MG MOUTH DAILY ACTIVE Non-VA GLIPIZIDE 5MG TAB 5MG MOUTH TWICE A DAY ACTIVE Non-VA INSULIN ASPART (HUMAN) INJ 10 UNITS UNDER THE SKIN ACTIVE BEFORE MEALS Non-VA INSULIN GLARGINE 300UNITS/ML 3ML PEN INJ 25 UNITS ACTIVE UNDER THE SKIN DAILY Non-VA LOSARTAN 25MG TAB 12.5MG MOUTH DAILY ACTIVE Non-VA METOPROLOL SUCCINATE 50MG SA TAB 50MG MOUTH DAILY ACTIVE Non-VA NEEDLE,PEN 32G,6MM 1 NEEDLE UNDER THE SKIN FOUR ACTIVE TIMES A DAY Non-VA NITROGLYCERIN 0.4MG SL TAB 0.4MG UNDER THE TONGUE ACTIVE NEEDED Non-VA NON VA MED NOT LISTED MISCELLANEOUS ACCU-CHECK ACTIVE ALEJO PLUS METER THREE TIMES A DAY Non-VA PANTOPRAZOLE NA 40MG EC TAB 40MG MOUTH DAILY ACTIVE Non-VA SACUBITRIL 24MG/VALSARTAN 26MG TAB 1 TABLET MOUTH ACTIVE TWO TIMES A DAY Non-VA SPIRONOLACTONE 25MG TAB 25MG MOUTH DAILY ACTIVE Non-VA TRIAMCINOLONE ACETONIDE 0.1% OINT SMALL AMOUNT ACTIVE TOPICALLY THREE TIMES A DAY NEEDED Depression Screening: Perform PHQ-2 A PHQ-2 screen was performed. The score was 0 which is a negative screen for depression. Over the past two weeks, how often have you been bothered by the following problems? 1. Little interest or pleasure in doing things Not at all 2. Feeling down, depressed, or hopeless Not at all Suicide Screen: C-SSRS Screening [place] Suicide Severity Rating Scale (C-SSRS) screener 1. [...] required due to responses to other questions. Alcohol Use Screen (AUDIT-C): Alcohol Screen: SCREEN FOR ALCOHOL (AUDIT-C) An alcohol screening test (AUDIT-C) was negative (score=2). 1. How often did you have a drink containing alcohol in the past year? Consider a drink to be a 12 ounce can or bottle of regular beer, 8 ounces of malt liquor, a 5 ounce glass of table wine, or a 1.5 ounce shot of liquor (like scotch, gin, or vodka). Two to four times a month 2. How many drinks containing alcohol did you have on a typical day when you were drinking in the past year? One or two drinks 3. How often did you have six or more drinks on one occasion in the past year? Never Tobacco Use Screening: The patient is a former tobacco user. The patient quit fifteen or more years ago. Nursing Annual Screening: Fall History Screen During the past 12 months, have you had any falls? Patient reports having one fall without injury requiring treatment. MEDICATIONS: Patient is on one of the following medication classes: Antihypertensives, Antidepressants, Antipsychotics, Diuretics, or Controlled substance medication used for pain. Script Talk Screen Are you able to read your prescription bottles with your glasses, magnifiers or other aids? Yes or patient not taking any prescriptions. Skin Screen Patient reports any current pressure ulcers, a history of pressure ulcers, or a wound from a medical legal investigator or Patient is bed-confined or a wheelchair-user or Patient requires assistance to transfer/change position No, Skin Screen is Negative Home Abuse/Violence Screen Is your home free of abuse and violence? Yes MOVE! Program Screen Body Mass Index (BMI)= 24.6 [place]: Collection DT Specimen Test Name Result Units Ref Range 11/23/2022 12:09 BLOOD !! HEMOGLOBIN A1C 7.4 H % 4.0 - 6.0 !! Indicates COMMENTS AVAILABLE...Refer to Interim Lab Report. [place] Hgb A1C: No data available [place] Hgb A1C: No data available Point of Care Hgb A1C: POC HGB A1C____ Outpatient Nutrition Screen Body Mass Index (BMI)= 24.6 [place]: Collection DT Specimen Test Name Result Units Ref Range 11/23/2022 12:09 BLOOD !! HEMOGLOBIN A1C 7.4 H % 4.0 - 6.0 !! Indicates COMMENTS AVAILABLE...Refer to Interim Lab Report. [place] Hgb A1C: No data available [place] Hgb A1C: No data available Point of Care Hgb A1C: POC HGB A1C____ Is patient's BMI less than 18.5? No Does patient have swallowing, coughing, or chewing problems affecting oral intake? No Has patient experienced unplanned weight loss or gain greater than 10 pounds over the last 2 months? No Is patient's Hgb A1C (Glycosylated Hemoglobin) greater than 9.5? No Is patient receiving Total Parenteral Nutrition (TPN) or Tube Feedings? No Patient Health Education Screen BARRIERS/SPECIAL NEEDS: Hearing limitations PREFERRED STYLE OF LEARNING: No preference stated Client Assistive Service (GLENNY) Screen Does the patient require assistance with outpatient visit? No PAVE Foot Check: Patient indicates foot exam (including monofilament test for sensation) was performed in the past year in the private sector: Date: October 18, 2023 Result: Abnormal( is being followed by PCP through [facility] and the [facility]. is a Right below the knee amputee. /riccardo/ ZARI ANTHONY LPN Signed: 11/08/2023 10:10 ZARI ANTHONY ([facility])
--- OUTSIDE RECORDS SUMMARY | 2023-11-14 09:09 | XMS_ITS | Encounter Summary ---
Author Name [facility] [place] [facility] [place] Organization [facility] [place] Address [address] [place] [address] Care Team Providers Care Security Guards Dispatcher Name Role Phone JIMENEZ CHESTER Primary Care [...] Cherry's Name Patient's Relationship to Policy Cherry [facility] (WNR) MEDICARE ADVANTAGE [facility] (WNR) May 14, 2020 [id number] [phone] PITER CASAS ERD PATIENT Selected Encounter This [...] 09, 2023 08:41 PM AMBULATORY - NONE [facility] Apr 12, 2023 11:56 PM [facility]ORY - NONE [facility] Apr 16, 2023 09:26 PM [facility] - NONE [facility] May 01, 2023 06:28 PM [facility] Aug 10, 2023 10:45 AM AMBULATORY - SURGERY [facility] Lab Results: +/- 30 days of the encounter This section includes the Chemistry and Hematology Lab Results on record with [place] for the patient. Radiology Reports and Pathology Reports are provided separately, in subsequent sections. Lab Results This section contains the Chemistry/Hematology Results that were resulted 30 days before or 30 daysafter the date of the Encounter. Date/Time Source Result Type Result - Unit Interpretation Reference Range Comment Jan 23, 2023 02:14 PM [facility] ([facility]) BNP Specimen Type: PLASMA No comment entered. Ordering Provider: JIMENEZ CHESTER Report Released Date/Time: Jan 23, 2023 02:00 PM Reporting Lab: [facility] [id number] Performing Lab: [facility] [id number] BNP 1549 pg/mL H <99 Jan 23, 2023 02:14 PM [place] ([facility]) BASIC METABOLIC PANEL+MG Specimen Type: PLASMA No comment entered. Ordering Provider: JIMENEZ CHESTER Report Released Date/Time: Jan 23, 2023 02:00 PM Reporting Lab: [facility] [id number] Performing Lab: [facility] [id number] CREATININE 1.2 mg/dL 0.7-1.2 UREA NITROGEN 35 [...] COSIGNER: URGENCY: STATUS: COMPLETED Received prescriptions at [facility] [place] [place], [place] are not a co-managed item. Forwarding to pact team to see if qualifies and to contact him to talk with him about it. /riccardo/ DANNY MORTON LPN Co-Sandwich Peddler Signed: 02/20/2023 14:50 Receipt Acknowledged By: 02/21/2023 08:30 /es/ JACKY GARVEY [place]ARMD, [facility] MANAGER 02/22/2023 13:45 /es/ Aamir Hazel RN [facility] --- Original Document --- 02/20/23 PHARMACY NON [place] CARE MEDICATIONS: [facility] RECEIVED electronic prescription(s) (eRX(s))from NON- [facility] Provider: KATHY FORTE Date eRX received: Feb The outside (NON-VA) provider is not authorized to write for prescription(s) through [place] pharmacy at this time. Prescription request REDIRECTED via FAX to [facility] department eRx Reference #: [id number] eRx Prescription Information: eRx Drug: DEXCOM G7 SALESFORCE BUSINESS ANALYST eRx Qty: 1 eRx Refills: 1 eRx Days Supply: eRx Written Date: FEB 15, 2023 eRx Issue Date: Prohibit Renewals: No eRx Sig: misc miscellaneous eRx Reference #: [id number] eRx Drug: DEXCOM G7 SENSOR eRx Qty: 9 eRx Refills: 3 eRx Days Supply: eRx Written Date: FEB 15, 2023 eRx Issue Date: Prohibit Renewals: No eRx Sig: device miscellaneous /nallely CALVIN PharmD CLINICAL PHARMACIST Signed: 02/20/2023 11:13 02/22/2023 ADDENDUM STATUS: COMPLETED See Feb 22 Pharmacotherapy for more information. /riccardo/ Aamir Hazel RN [facility] Signed: 02/22/2023 13:45 DANNY MORTON [facility] Feb 20, 2023 11:11 AM PHARMACY NOTE: LOCAL TITLE: PHARMACY NON [place] CARE MEDICATIONS STANDARD TITLE: PHARMACY NOTE DATE OF NOTE: FEB 20, 2023@11:11 ENTRY DATE: FEB 20, 2023@11:11:45 AUTHOR: YELITZA CALVIN EXP COSIGNER: URGENCY: STATUS: COMPLETED PHARMACY NON [facility] CARE MEDICATIONS Has ADDENDA [facility] RECEIVED electronic prescription(s) (eRX(s))from NON- [facility] Provider: KATHY FORTE Date eRX received: Feb The outside (NON-[place]) provider is not authorized to write for prescription(s) through [place] pharmacy at this time. Prescription request REDIRECTED via FAX to [facility] department eRx Reference #: [id number] eRx Prescription Information: eRx Drug: DEXCOM G7 SALESFORCE BUSINESS ANALYST eRx Qty: 1 eRx Refills: 1 eRx Days Supply: eRx Written Date: FEB 15, 2023 eRx Issue Date: Prohibit Renewals: No eRx Sig: misc miscellaneous eRx Reference #: [id number] eRx Drug: DEXCOM G7 SENSOR eRx Qty: 9 eRx Refills: 3 eRx Days Supply: eRx Written Date: FEB 15, 2023 eRx Issue Date: Prohibit Renewals: No eRx Sig: device miscellaneous /nallely CALVIN PharmD CLINICAL PHARMACIST Signed: 02/20/2023 11:13 02/20/2023 ADDENDUM STATUS: COMPLETED Received prescriptions at [facility] [place] [place], [facility] are not a co-managed item. Forwarding to pact team to see if qualifies and to contact him to talk with him about it. /nallely MORTON LPN Co-Sandwich Peddler Signed: 02/20/2023 14:50 Receipt Acknowledged By: 02/21/2023 08:30 /riccardo/ JACKY GARVEY, SARAD, [facility] CLINICAL RN MANAGER 02/22/2023 13:45 /riccardo/ Aamir Hazel RN [facility] 02/22/2023 ADDENDUM STATUS: COMPLETED See Feb 22 Pharmacotherapy for more information. /riccardo/ Aamir Hazel RN [facility] Signed: 02/22/2023 13:45 YELITZA CALVIN [facility]
--- OUTSIDE RECORDS SUMMARY | 2023-11-14 09:10 | XMS_ITS | Clinical Summary ---
Author Organization [facility] Address [address] [place] [address] Care Team Providers Care First Crusher Name Role Phone Elsewhere, Pcp Primary Care Provider Unavailabl e Source Comments Patient records contain information from all sites at [facility]. For routine questions regarding patient records, call [phone] during business hours, M-F 8:00 AM - 5:00 PM Central Time. Record requests for emergency care only can be directed to [phone] at any time.[facility] Allergies No known active allergies Medications [...] Heel: Area continues to improve. Wound measures [id number]. Edges well defined, attached and 100% re-epithelialized [...] will follow up with his PCP in [place] Community Service Aide (Current) Anticoagulant Treatment 08/2022 Overview: On apixaban [...] standard wheelchair Mr. Woods was admitted to [facility] April 10 following BK right lower extremity. [...] T4 was 0.92 in April 2023. residential roofer confirmed levothyroxine is given every morning (6am) without other medications. Therefore, we will increase levothyroxine 50mcg to 75mcg and rechecked TSH in 6 weeks. Nursing instructed to continue monitoring for symptoms of hypothyroidism and contact [place] provider if any concerns. 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 Treated with remdesivir at [facility]. Anemia 01/16/2023 04/12/2023 Overview: Lab [...] 05/24/2023 Overview: Onychomycosis of toenails; Original Code: [id number] Original Codesystem: SNOMED CT Classification: Medical Confirmation [...] Comments Blood Pressure 107/66 06/18/2023 1:10 PM RESEARCH PHYSIOLOGIST Pulse 78 06/18/2023 1:10 PM RESEARCH PHYSIOLOGIST Temperature 36.6 ??C (97.8 ??F) 06/18/2023 1:10 PM CS T Respiratory Rate 16 06/18/2023 1:10 PM RESEARCH PHYSIOLOGIST Oxygen Saturation 95% 06/18/2023 1:10 PM RESEARCH PHYSIOLOGIST Inhaled Oxygen Concentration - - Weight 75.8 kg (167 lb) 06/18/2023 1:10 PM RESEARCH PHYSIOLOGIST Height 175.3 cm (5' 9) 04/12/2023 3:21 PM RESEARCH PHYSIOLOGIST Body Mass Index 24.66 04/12/2023 3:21 PM RESEARCH PHYSIOLOGIST Plan of Treatment Health Maintenance Due Date Last Done Comments Hepatitis B Vaccines (1 of 3 - Risk 3-dose series) 2001 COVID-19 Vaccine (2022-2 4 season) 2023 03/29/2022, 03/09/2021, 07/24/2020, Additional history exists Fall Risk Screen (Annual) 05/14/2023 Influenza Vaccine (#1) 2024 2, 03/09/2021, 03/09/2021, Additional history exists DTaP,Tdap,and Td Vaccines (2 - Td or Tdap) 01/21/2031 01/21/2021, 03/06/2006 Pneumococcal vaccine (65+ years) Completed 01/21/2015, 02/09/2011, 03/06/2006 Zoster Vaccines Completed 01/21/2021, 10/21/2020 Advance Directives For more information, please contact: [phone] * DNR/DNI (Latest Code Status on File) Date Activated Date Inactivated Comments 05/24/2023 6:14 PM * DNR/DNI Date Activated Date Inactivated Comments 04/12/2023 4:11 PM 04/16/2023 7:15 AM Care Teams First Crusher Relationship Specialty Start Date End Date Elsewhere, Pcp PCP - General Internal Medicine 08/28/23
--- OUTSIDE RECORDS SUMMARY | 2023-11-14 09:10 | XMS_ITS | Clinical Summary ---
Author Organization [facility] Address [place], [place] [address] Care Team Providers Care Photo Lab Technician Name Role Phone VotelMelquiades MD Primary Care Provider + Nurses, Advanced Heart Failure Unavailable + Shade Manuel MD Unavailable [phone] Allergies No known active allergies Medications Medication Sig Dispensed Refills Start Date End Date Status blood-glucose meterIndications: Type 2 diabetes mellitus with complication (HC) [employer] Glucometer, Dispense meter, test strips, lancets covered by pt ins. Test 3 times daily 1 Device 07/09/2020 Active Insulin Llewellyn, Disposable, (Novofine 32) 32 gauge x 1/4Indications:2 [...] once daily. 90 Tablet 3 10/03/2023 Active clotrimazole (LOTRIMIN) 1 % creamIndications: Balanitis Apply topically to affected area(s) two times daily. Use for 3 weeks. 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 Change each sensor every 10 days 9 Each 3 10/30/2023 Active metoprolol succinate (Toprol XL) 25 mg [...] mg sublingual tabletIndications :Coronary artery disease involving telida heart without angina pectoris, unspecified vessel or lesion type Place 1 Tablet (0.4 mg) under the tongue every 5 minutes if needed for Chest Pain. Up to 3 tablets in 15 minutes. 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 Increase by 2 units every 3 days until fasting blood sugars are in the 150s. Maximum of 25 units daily. 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 Plus correction scale. 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 11/25/2019 HTN (hypertension) 10/28/2015 Hyperlipidemia LDL goal <70 10/28/2015 Adenomatous colon polyp 04/13/2015 Overview: Colonoscopy 04/2015 polyps repeat in 5 years Colonoscopy 03/2020 polyps, repeat in 5 years Background diabetic retinopathy(362.01) 07/10/19 08 Unspecified hearing loss 07/10/2007 Coronary atherosclerosis of unspecified type of vessel, telida or graft Overview: 4 vessel CABG 2001 Lexiscan only for cardiac evaluation - no treadmill Other ill-defined and unknow n causes of morbidity and mortality Impotence of organic origin Resolved Problems Problem Noted Date Diagnosed Date Resolved Date Type 2 diabetes mellitus with complication 11/16/2017 12/22/2022 Heart disease, unspecified 0 07/10/2007 Encounters Date Type Department Care Team Description 11/13/2023 2:00 PM CDT Patient Outreach [facility] [address] [place] [address] Priyanka Hummel embedded developer (Review Dexcom report/insulin management) 11/12/2023 12:55 PM CDT - 11/12/2023 11:59 PM CDT Hospital Encounter [facility] [address] [place] [address] Melquiades Man MD Oswald, Rebecca L, PT 11/12/2023 Travel 11/07/2023 Telephone [facility] [address] [place] [address] Melquiades Man MD INSULIN ASPART FLEXPEN 11/06/2023 10:25 AM CDT Office Visit [facility] [address] [place] [address] Melquiades Man MD Medicare ANNUAL (subsequent) Visit (83 year old male); Medication Management (insulin) 11/06/2023 Telephone [facility] [address] [place] [address] Melquiades Man MD Form 11/05/2023 12:49 PM CDT - 11/05/2023 11:59 PM CDT Hospital Encounter [facility] [address] [place] [address] Votel, MD Edgar Cleary Rebecca L, PT 11/05/2023 Travel 11/01/2023 1:00 PM CDT - 11/01/2023 11:59 PM CDT [facility] [address] [place] [address] Votel, MD Edgar Cleary Rebecca L, PT 11/01/2023 Travel 10/31/2023 Telephone [facility] [address] [place] [address] VoteMelquiades lewis MD 10/30/2023 10:00 AM CDT Patient Outreach [address] [address] Priyanka Hummel RN Diabetes (Insulin management/educati on) 10/29/2023 12:25 PM CDT - 10/29/2023 11:59 PM CDT Hospital Encounter [facility] and [facility] ? [facility] [address] [place] [address] Votel, MD Edgar Cleary Rebecca L, PT 10/29/2023 Travel 10/25/2023 1:15 PM CDT - 10/25/2023 11:59 PM CDT Hospital En[facility] [address] [place] [address] Votel, MD Edgar Cleary Rebecca L, PT 10/25/2023 Travel 10/23/2023 Telephone [facility] [address] [place] [address] GunnarteMelquiades lewis MD 10/22/2023 1:21 PM CDT - 10/22/2023 11:59 PM CDT Hospital Encounter [facility] [address] [place] [address] Votel, MD Edgar Cleary Rebecca L, PT 10/22/2023 Travel 10/18/2023 1:45 PM CDT - 10/18/2023 11:59 PM CDT Hospital Encounter [facility] ? [facility] [address] [place] [address] Votel, MD Deloris Cleary Kayla, PT 10/18/2023 Travel 10/17/2023 Telephone [facility] [address] [place] [address] Votel, Melquiades Gray MD Outside Order (regarding frequency of home health visits) 10/15/2023 12:55 PM CDT - 10/15/2023 11:59 PM CDT [facility] ? [facility] [address] [place] [address] Votel, MD Lesly Cleary Isabelle, PT 10/15/2023 Travel 10/11/2023 12:51 PM CDT - 10/11/2023 11:59 PM CDT Hospital Encounter [facility] ? [facility] [address] [place] [address] Votel, MD Lesly Cleary Isabelle, PT 10/11/2023 Travel 10/11/2023 Telephone [facility] [address] [place] [address] VoteMelquiades lewis MD 10/09/2023 Telephone [facility] [address] [place] [address] VotelMelquiades MD Form 10/05/2023 Transcribe Orders [address] [phone] Isatu Hanley MD 10/04/2023 1:42 PM CDT - 10/04/2023 11:59 PM CDT Hospital Encounter [facility] and [facility] [address] [place] [address] Melquiades Man MD Tonsfeldt, Isabelle, PT 10/04/2023 9:35 AM CDT Office Visit [facility] [address] [place] [address] Rachel Sauceda, DO Diabetes 10/04/2023 Telephone [facility] [address] [place] [address] Rachel Sauceda, DO Medication Management 10/04/2023 Travel 10/03/2023 Refill [facility] [address] [facility] [address] [place] [address] Shade Manuel MD Refill Request (Farxiga) 10/01/2023 12:58 PM CDT - 10/01/2023 11:59 PM CDT Hospital Encounter [facility] [address], [place] [address] Melquiades Man MD Tonsfeldt, Isabelle, PT 10/01/2023 Travel 09/30/2023 Refill [facility] [address] [facility] [address] [place] [address] Shade Manuel MD Refill Request (Dapagliflozin Propanediol) 09/27/2023 12:56 PM CDT - 09/27/2023 11:59 PM CDT Hospital Encounter [facility] [address] [place] [address] Melquiades Man MD Tonsfeldt, Isabelle, PT 09/27/2023 Travel 09/24/2023 12:57 PM CDT - 09/24/2023 11:59 PM CDT Hospital Encounter [facility] [address] [place] [address] Melquiades Man MD Tonsfeldt, Isabelle, PT 09/24/2023 Travel 09/20/2023 11:45 AM CDT - 09/20/2023 11:59 PM CDT Hospital Encounter [facility] ? [facility] [address] [place] [address] VoteMelquiades lewis MD Tonsfeldt, Isabelle, PT 09/20/2023 Travel 09/19/2023 Telephone [facility] [address] [place] [address] Melquiades Man MD 09/17/2023 [address]phone [facility] [address] [place] [address] Melquiades Man MD orders (wound care 2 times per week) 09/13/2023 1:00 PM CDT - 09/13/2023 11:59 PM CDT [facility] [address] [address] Melquiades Man MD Tonsfeldt, Isabelle, PT 09/13/2023 Travel 09/10/2023 12:53 PM CDT - 09/10/2023 11:59 PM CDT Hospital Encounter [facility] and [facility] ? [facility] [address] [address] Melquiades Man MD Tonsfeldt, Isabelle, PT 09/10/2023 Travel 09/06/2023 9:27 AM CDT - 09/06/2023 11:59 PM CDT Hospital Encounter [facility] ? [facility] [address] [place] [address] Votel, MD Lesly Cleary Isabelle, PT 09/06/2023 Travel 08/31/2023 Telephone [facility] [address] [place] [address] Votel, Melquiades Gray MD ORDERS 08/23/2023 12:46 PM CDT - 08/23/2023 11:59 PM CDT Hospital Encounter [facility] [address] [address] Votel, MD Lesly Cleary Isabelle, PT History of leg amputation (HC) 08/23/2023 Travel 08/17/2023 Telephone [facility] [address] [place] [address] Votel, Melquiades Gray MD Home Care ([facility]) from Last 3 Months Immunizations Name Administration Dates Next Due COVID-19 vaccine (Moderna 100mcg/0.5mL) PF, MDV 03/09/2021 COVID-19 vaccine (Moderna 50 mcg/0.5mL) 12YO+ BIVALENT PF, MDV 03/29/2022 COVID-19 vaccine (Pfizer-Bio NTech 30mcg/0.3mL) PF, MDV 03/09/2021,07/24/2020,07/03/2020 COVID-19 vaccine Comirnaty (Pfizer-BioNTech 30mcg/0.3mL) 12YO+ [id number] Formula PF, SDV, PFS 03/05/2023 Influenza Virus, [...] Brother kidney problems Heart Disease Father 1st ID at 65 d 77 yo CHF Diabetes Mother Heart Disease Mother d 64 yo ID Genetic Other There is a posi tive [...] CDT Respiratory Rate 24 05/03/2023 7:04 AM BOLT LOADER Oxygen Saturation 99% 11/06/2023 10: 30 AM CDT Inhaled Oxygen Concentration - - Weight 71.7 kg (158 lb) 10/04/2023 9:26 AM CDT patient reported Height 175.3 cm (5' 9.02) 07/27/2023 1 1:51 AM CDT Body Mass Index 23.32 07/27/2023 11:51 AM CDT Plan of Treatment Upcoming Encounters Date Type Department Care Team (Late st Contact Info) Description 11/20/2023 1:45 PM CDT Appointment [facility] and [address] [address] Jasmin Hernández, PT [address] [place] [address] 11/22/2023 1:30 PM CDT Appointment [facility] and [address] [address] Farheen Puentes, PT [address] [address] 11/26/2023 1:15 PM CDT Appointment [facility] and [address] [address] Jasmin Hernández, PT [address] [place] [address] 11/29/2023 1:00 PM CDT Appointment [facility] [address] [place] [address] Farheen Puentes, PT [address] [place] [address] 12/03/2023 1:45 PM CDT [facility] [address] [place] [address] Farheen Puentes, PT [address] [place] [address] 12/06/2023 1:00 PM CDT Appointment [facility] [address] [place] [address] Farheen Puentes, PT [address] [place] [address] 12/10/2023 1:45 PM CDT Appointment [facility] [address] [place] [address] Farheen Puentes, PT [address] [place] [address] 12/13/2023 1:45 PM CDT Appointment [facility] [address] [place] [address] Farheen Puentes, PT [address] [place] [address] 12/17/2023 1:00 PM CDT Appointment [facility] [address] [place] [address] Farheen Puentes, PT [address] [place] [address] 12/20/2023 11:00 AM CDT Patient Outreach [address] [address] Priyanka Hummel RN [address] [place] [address] 12/20/2023 1:00 PM CDT Appointment [facility] [address] [place] [address] Farheen Puentes, PT [address] [place] [address] 12/24/2023 1:00 PM CDT [facility] [address] [place] [address] Farheen Puentes, PT [address] [place] [address] 12/27/2023 1:00 PM CDT Appointment [facility] and [facility] [address] [place] [address] Farheen Puentes, PT [address] [address] 12/31/2023 1:00 PM CDT Appointment [facility] [address] [place] [address] Jasmin Hernández, PT [address] [place] [address] 01/02/2024 1:45 PM CDT Appointment [facility] and [facility] [address] [place] [address] Farheen Puentes, PT [address] [place] [address] 01/08/2024 1:30 PM CDT Office Visit [address] [place] [place] [address] Shade Manuel MD [address] [facility] [address] [place] [address] Health Maintenance Due Date Last Done Comments COVID-19 vaccine series ( season) 2023 03/05/2023, 03/29/2022, 03/09/2021, Additional history exists Influenza for age 65+ 01/13/2024 03/05/2023 , 04/05/2022, 03/09/2021, Additional history exists BMI (ht and wt on same day) for age 18+ 07/26/2024 07/27/2023, 02/20/2023, 02/06/2023, Additional history exists Depression screening for age 12+ 11/06/2024 11/07/2023, 11/06/2023, 11/06/2023, Additional history exists Medicare Wellness for age [...] WITH AUTO DIFFERENTIAL (11/06/2023 12:33 PM CDT) WHITE BLOOD COUNT 8.5 4.5 - 11.0 thou/cu mm 11/06/2023 12:44 PM CDT [facility] RED BLOOD COUNT 3.98(L) 4.30 - 5.90 mil/cu mm 11/06/2023 12:44 PM CDT [facility] HEMOGLOBIN 12.0(L) 13.5 - 17.5 g/dL 11/06/2023 12:44 PM CDT [facility] HEMATOCRIT 36.7(L) 37.0 - 53.0 % 11/06/2023 12:44 PM CDT [facility] MCV 92 80 - 100 fL 11/06/2023 12:44 PM CDT [facility] MCH 30.2 26.0 - 34.0 pg 11/06/2023 12:44 PM CDT [facility] MCHC 32.7 32.0 - 36.0 g/dL 11/06/2023 12:44 PM CDT [facility] RDW 15.9(H) 11.5 - 15.5 % 11/06/2023 12:44 PM CDT [facility] PLATELET COUNT 273 140 - 440 thou/cu mm 11/06/2023 12:44 PM CDT [facility] MPV 9.6 6.5 - 11.0 fL 11/06/2023 12:44 PM CDT [facility] % NEUT 69.0 % 11/06/2023 12:44 PM CDT [facility] % LYMPH 18.8 % 11/06/2023 12:44 PM CDT [facility] % MONO 7.6 % 11/06/2023 12:44 PM CDT [facility] % EOS 3.8 % 11/06/2023 12:44 PM CDT [facility] % BASO 0.8 % 11/06/2023 12:44 PM CDT [facility] ABSOLUTE NEUTROPHILS 5.9 1.7 - 7.0 thou/cu mm 11/06/2023 12:44 PM CDT [facility] ABSOLUTE LYMPHOCYTES 1.6 0.9 - 2.9 thou/cu mm 11/06/2023 12:44 PM CDT [facility] ABSOLUTE MONOCYTES 0.6 <0.9 thou/cu mm 11/06/2023 12:44 PM CDT [facility] ABSOLUTE EOSINOPHILS 0.3 <0.5 thou/cu mm 11/06/2023 12:44 PM CDT [facility] ABSOLUTE BASOPHILS 0.1 <0.3 thou/cu mm 11/06/2023 12:44 PM CDT [facility] Blood BLOOD SPECIMEN / Unknown Butterfly / Unknown 11/06/2023 12:33 PM CDT 11/06/2023 12:37 PM CDT Melquiades Man MD HEMATOLOGY [facility] [address] [place] [address], [place] [phone] * LIPID PANEL W REFLEX MEASURED LDL (11/06/2023 12:33 PM CDT) CHOLESTEROL,TOTAL 156 100 - 199 mg/dL 11/07/2023 1:57 AM CDT [facility] Comment: Cholesterol, Total Reference Ranges Desirable <200 mg/dL Borderline 200-239 mg/dL High >=240 mg/dL TRIGLYCERIDES 124 <150 mg/dL 11/07/2023 1:57 AM CDT [facility] HDL CHOLESTEROL 56 >40 mg/dL 1:57 AM CDT [facility] NON-HDL CHOLESTEROL 100 <145 mg/dl 11/07/2023 1:57 AM CDT [facility] CHOL/HDL RATIO 2.79 <4.50 11/07/2023 1:57 AM CDT [facility] LDL CHOLESTEROL 75 <=130 mg/dL 11/07/2023 1:57 AM CDT [facility] VLDL CHOLESTEROL 25 <=30 mg/dL 11/07/2023 1:57 AM CDT [facility] PROVIDER ORDERED STATUS RANDOM 11/07/2023 1:57 AM CDT [facility] Blood BLOOD SPECIMEN / Unknown Butterfly / Unknown 11/06/2023 12:33 PM CDT 11/06/2023 12:37 PM CDT Melquiades Man MD CHEMISTRY [facility] [address] [place] [address], [place] * TSH (11/06/2023 12:33 PM CDT) TSH 2.24 0.27 - 4.20 uIU/mL 11/07/2023 1:57 AM CDT [facility] Blood BLOOD SPECIMEN / Unknown Butterfly / Unknown 11/06/2023 12:33 PM CDT 11/06/2023 12:37 PM CDT Narrative [facility] - 11/07/2023 1:57 AM CDT In Adults, TSH values between 5.00 and 10.00 uIU/ml do not necessarily indicate the presence of Hypothyroidism. Correlation with clinical findings such as presence of goiter and/or Thyroperoxidase (TPO) Antibody may be helpful. For more information please refer to RONNIE 2004; 291: 228-238. Melquiades Man MD CHEMISTRY Performing Organization Address City/[facility]/ZIP Co de Phone Number [facility] [address] [place] [address], * ALT (SGPT) (11/06/2023 12:33 PM CDT) ALT (SGPT) 21 10 - 50 IU/L 11/07/2023 1:57 AM CDT [facility] Blood BLOOD SPECIMEN / Unknown Butterfly / Unknown 11/06/2023 12:33 PM CDT 11/06/2023 12:37 PM CDT Melquiades Man MD CHEMISTRY Performing Organization Address City/[facility]/ZIP Co de Phone Number [facility] [address] [place] [address], * (ABNORMAL) BASIC METABOLIC PANEL (11/06/2023 12:33 PM CDT) SODIUM 139 136 - 145 mmol/L 11/07/2023 1:57 AM CDT [facility] POTASSIUM 4.8 3.5 - 5.1 mmol/L 11/07/2023 1:57 AM CDT [facility] CHLORIDE 102 98 - 107 mmol/L 11/07/2023 1:57 AM CDT [facility] CO2,TOTAL 23 22 - 29 mmol/L 11/07/2023 1:57 AM CDT [facility] ANION GAP 14 5 - 18 11/07/2023 1:57 AM CDT [facility] GLUCOSE 137(H) 70 - 99 mg/dL 11/07/2023 1:57 AM CDT [facility] CALCIUM 10.0 8.8 - 10.2 mg/dL 11/07/2023 1:57 AM CDT [facility] BUN 42(H) 8 - 23 mg/dL 11/07/2023 1:57 AM CDT [facility] CREATININE 1.65(H) 0.70 - 1.20 mg/dL 11/07/2023 1:57 AM CDT [facility] BUN/CREAT RATIO 25(H) 10 - 20 1:57 AM CDT [facility] eGFR 41(L) >90 mL/min/1.7 3m2 11/07/2023 1:57 AM CDT [facility] Comment:As of 2021, eG [...] 12:37 PM CDT Melquiades Man MD [facility]MISTRY [facility] [address] [place] [address], * (ABNORMAL) HEMOGLOBIN A1C MONITORING (POCT) (10/04/2023 [...] [facility] [address] [place] [address], from Last 3 Months Additional Health Concerns [...] 12 months since positive culture): resides in acute/superintendent terminal care, receiving hemodialysis, has chronic open wounds/skin damage, has long-term percutaneous indwelling medical devices Exclusions for nares collection (if <12 months since positive culture) include all of the previous exclusions plus patients on antibiotics 7 days prior to collection 03/08/2023 05/31/2023 MDRO-GNB 04/26/2023 04/26/2023 Advance Directives Documents on File Type Date Recorded 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
--- OUTSIDE RECORDS SUMMARY | 2023-11-14 09:10 | XMS_ITS | Referral Summary ---
Author Organization [facility] Address [address] [place] [address] Care Team Providers Care Chief Librarian Work With Blind Name Role Phone Elsewhere, Pcp Primary Care Provider Unavailabl e Source Comments Patient records contain information from all sites at [facility]. For routine questions regarding patient records, call [phone] during business hours, M-F 8:00 AM - 5:00 PM Central Time. Record requests for emergency care only can be directed to [phone] at any time.[facility] Allergies No known active allergies Medications [...] Heel: Area continues to improve. Wound measures [id number]. Edges well defined, attached and 100% re-epithelialized [...] will follow up with his PCP in [place] [employer] (Current) Anticoagulant Treatment 08/2022 Overview: On apixaban [...] Last T4 was 0.92 in April 2023. dental resident confirmed levothyroxine is given every morning (6am) without other medications. Therefore, we will increase levothyroxine 50mcg to 75mcg and rechecked TSH in 6 weeks. Nursing instructed to continue monitoring for symptoms of hypothyroidism and contact [place] provider if any concerns. Amputation Toe Status [...] and palpitation. 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 Atherosclerosis Of [place] Ar teries Of Other Extremities With Ulceration [...] COVID-19 12/27/2022. Treated with remdesivir at [facility]. Anemia 01/16/2023 04/12/2023 Overview: Lab Results [...] 05/24/2023 Overview: Onychomycosis of toenails; Original Code: [id number] Original Codesystem: SNOMED CT Classification: Medical Confirmation [...] Comments Blood Pressure 107/66 06/18/2023 1:10 PM MATERIAL PROCESSOR Pulse 78 06/18/2023 1:10 PM MATERIAL PROCESSOR Temperature 36.6 ??C (97.8 ??F) 06/18/2023 1:10 PM CS T Respiratory Rate 16 06/18/2023 1:10 PM MATERIAL PROCESSOR Oxygen Saturation 95% 06/18/2023 1:10 PM MATERIAL PROCESSOR Inhaled Oxygen Concentration - - Weight 75.8 kg (167 lb) 06/18/2023 1:10 PM MATERIAL PROCESSOR Height 175.3 cm (5' 9) 04/12/2023 3:21 PM MATERIAL PROCESSOR Body Mass Index 24.66 04/12/2023 3:21 PM MATERIAL PROCESSOR Plan of Treatment Not on file Advance Directives For more information, please contact: [phone] * DNR/DNI (Latest Code Status on File) Date Activated Date Inactivated Comments 05/24/2023 6:14 PM * DNR/DNI Date Activated Date Inactivated Comments 04/12/2023 4:11 PM 04/16/2023 7:15 AM Care Teams Chief Librarian Work With Blind Relationship Specialty Start Date End Date Elsewhere, Pcp PCP - General Internal Medicine 08/28/23
--- OUTSIDE RECORDS SUMMARY | 2023-11-14 09:10 | XMS_ITS ---
Author Organization [facility] Address [address] [place] [address] Care Team Providers Care [employer] Name Role Phone Unavailable Unavailable Unavailable Surgery Details Not on file Complications Check Surgery Details section. Procedure Estimated Blood Loss Check Surgery Details section. Procedure Findings Check Surgery Details section. Procedure Specimens Taken Check Surgery Details section.
== END 2023-11-14 09:05 | disposition home or self-care (01) ==
LOC: WOUND 09:05
PROVIDERS: PCP Family Medicine; Visit Provider Surgery
DX: E11.621 Type 2 diabetes mellitus with foot ulcer (principal); L97.422 Non-pressure chronic ulcer of left heel and midfoot with fat layer exposed; Z79.4 Long term (current) use of insulin; Z79.84 Long term (current) use of oral hypoglycemic drugs
CPT/HCPCS: 97597

== ENCOUNTER 2023-11-21 07:59 | Outpatient (CLI) | payer MEDICARE, BC, SELFPAY ==
--- OUTSIDE RECORDS SUMMARY | 2023-11-21 08:07 | XMS_ITS | Continuity of Care Document ---
Author Name [facility] Organization [facility] Care Team Providers Care Golf Club Maker Name Role Phone [facility] Unavailable Unavailable Problems Combined list of problems from Department of Defense and Veterans Affairs facilities. It does not include entries that were removed or entered in error. Problem Status Onset Date Problem Type Date of Resolution Comments Source Exposure to potentially hazardous substance ([facility] [id number]) Active 07/20/19 24 Condition Jul 20, 2023 Entered By: MECHELLE DEMPSEY [facility]: [facility] Documentation Initiative [facility] CAD - Coronary Artery Disease ([facility] [id number]) Active [place] ([facility]) CHF - Congestive Heart Failure ([facility] [id number]) Active Condition [place] ([facility]) Diabetes Mellitus Type 2 ([facility] [id number]) Active Condition [place] ([facility]) History of amputation of right leg through tibia and fibula [facility] HTN - Hypertension ([facility] [id number]) Active Condition [place] ([facility]) Hyperlipidemia ([facility] [id number]) Active Condition [facility]) Hypothyroidism ([facility] [id number]) Active Condition [place] ([facility]) Long-term current use of insulin Active Condition [place] ([facility]) Peripheral neuropathy due to type 2 diabetes mellitus Active Condition [place] ([facility]) Diagnosis: ICD-10-CM E11.9 Type 2 diabetes mellitus without complications Active Diagnosis [place] ([facility]) Diagnosis: ICD-10-CM H90.3 Sensorineural hearing loss, bilateral Active Diagnosis [facility] Diagnosis: ICD-10-CM I50.9 Heart failure, unspecified Active Diagnosis [place] ([facility]) Diagnosis: ICD-10-CM R26.89 Other abnormalities of [...] Feb 15, 2023 40 Feb 16, 2024 [id number] Feb 20, 2023 KATHY MURPHY [employer] [facility] [employer] [facility] ACTIVE 02/16/2024 [id number] KATHY MURPHY 2022 40 [employer] [facility] [facility] [place] [facility] CLOPIDOGREL BISULFATE 75MG TAB CLOPIDOG REL [...] Nov 08, 2023 10 Nov 08, 2024 [id number] Nov 09, 2023 JERMAINE CHESTER [facility] ([facility]) SUBCUT ANEOUS ACTIVE 11/08/2024 [id number] RYAN CHESTER 2023 10 [facility] ([facility]) [...] Site Reaction Lot Number CVX Code Drug Green Building [employer]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 Comments Source COVID-19 ([employer]oll [employer] Branch), MRNA, LNP-S, PF, NAVYA-SUCROSE, 30 MCG/0.3 ML (AGES 12+ YEARS) 2022 309 complet ed [facility] INFLUENZA, ADJUVANTED, QUADRIVALENT, PF 2022 205 complet ed [facility] RSV, BIVALENT, PROTEIN SUBUNIT RSVPREF, DILUENT RECONSTITUTED , 0.5 ML, PF 2022 305 complet [facility] INFLUENZA, HIGH-DOSE, QUADRIVALENT 1 2021 197 complet [facility] COVID-19 (MODERNA), MRNA, LNP-S, BIVALENT, PF, 50 MCG/0.5 ML OR 25MCG/0.25 ML DOSE 1 2021 229 complet ed [facility] COVID-19 (MODERNA), MRNA, LNP-S, PF, 100 MCG/0.5ML DOSE OR 50 MCG/0.25ML DOSE 2020 207 complet ed [facility] COVID-19 (PFIZER), MRNA, LNP-S, PF, 30 MCG/0.3 ML DOSE 3 2020 208 complet ed [facility] INFLUENZA, HIGH-DOSE, QUADRIVALENT, PF 2020 197 complet ed [facility] INFLUENZA, UNSPECIFIED FORMULATION 2020 88 complet ed [facility] TDAP 2020 115 complet ed Cezar Echevarria, [id number] , exp-2022 and given VIS dated 12/17/2020 [place] [facility] ([facility]) ZOSTER RECOMBINANT 2 2020 187 complet ed [facility] ([facility]) ZOSTER RECOMBINANT 1 2020 187 complet ed [facility] ([facility]) COVID-19 (PFIZER), MRNA, LNP-S, PF, 30 MCG/0.3 ML DOSE 2 2020 208 complet ed [facility] COVID-19 (PFIZER), MRNA, LNP-S, PF, 30 MCG/0.3 ML DOSE 1 2020 208 complet ed [facility] INFLUENZA, ADJUVANTED, TRIVALENT, PF 2019 168 complet ed [facility] INFLUENZA, UNSPECIFIED FORMULATION 2019 88 complet ed [facility] INFLUENZA, HIGH-DOSE, TRIVALENT, PF 2018 135 complet ed [facility] INFLUENZA, ADJUVANTED, TRIVALENT, PF 2017 168 complet ed [facility] INFLUENZA, UNSPECIFIED FORMULATION 2016 88 complet ed [facility] INFLUENZA, HIGH-DOSE, TRIVALENT, PF 2014 135 complet ed [facility] PNEUMOCOCCAL CONJUGATE PCV 13 2014 133 complet ed Per [facility] INFLUENZA, SPLIT VIRUS, TRIVALENT, PRESERVATIVE 2012 141 complet ed [facility] INFLUENZA, SPLIT VIRUS, TRIVALENT, PRESERVATIVE 2011 141 complet ed [facility] INFLUENZA, SPLIT VIRUS, TRIVALENT, PF 2010 140 complet ed [facility] PNEUMOCOCCAL POLYSACCHARID E PPV23 2010 33 complet ed [facility] INFLUENZA, SPLIT VIRUS, TRIVALENT, PRESERVATIVE 2009 141 complet ed [facility] INFLUENZA, SPLIT VIRUS, TRIVALENT, PF 2008 140 complet ed [facility] INFLUENZA, SPLIT VIRUS, TRIVALENT, PRESERVATIVE 2007 141 complet ed [facility] INFLUENZA, SPLIT VIRUS, TRIVALENT, PRESERVATIVE 2006 141 complet ed [facility] INFLUENZA, SPLIT VIRUS, TRIVALENT, PRESERVATIVE 2005 141 complet ed [facility] PNEUMOCOCCAL POLYSACCHARID E PPV23 2005 33 complet ed [employer] (ADULT), 5 LF TETANUS TOXOID, PRESERVATIVE FREE, ADSORBED 2005 113 complet ed [facility] INFLUENZA, SPLIT VIRUS, TRIVALENT, PRESERVATIVE 2004 141 complet ed [facility] INFLUENZA, SPLIT VIRUS, TRIVALENT, PRESERVATIVE 2003 141 complet ed [facility] INFLUENZA, SPLIT VIRUS, TRIVALENT, PRESERVATIVE 2002 141 complet ed [facility] Results Combined list of recent chemistry, [...] Jan 23, 2023 02:00 PM Reporting Lab: [facility] [address] Performing Lab: [facility] [address] [place] ([facility]) BASIC METABOLIC PANEL+MG UREA NITROGEN [MASS/VOLUM E] IN SERUM OR PLASMA 35 mg/dL 8 - 26 01/23 H Specimen Type: PLASMA No comment entered. Ordering Provider: AILIN CHESTER Report Released Date/Time: Jan 23, 2023 02:00 PM Reporting Lab: [facility] [address] Performing Lab: [facility] [address] [place] ([facility]) BASIC METABOLIC PANEL+MG GLUCOSE [MASS/VOLUM E] IN SERUM OR PLASMA 239 mg/dL 70 - 100 01/23 H Specimen Type: PLASMA No comment entered. Ordering Provider: AILIN CHESTER Report Released Date/Time: Jan 23, 2023 02:00 PM Reporting Lab: [facility] [address] Performing Lab: [place] [phone] [place] [address] ([facility]) BASIC METABOLIC PANEL+MG SODIUM [MOLES/VOLU ME] IN SERUM OR PLASMA 140 mmol/L 136 - 145 01/23 Specimen Type: PLASMA No comment entered. Ordering Provider: AILIN CHESTER Report Released Date/Time: Jan 23, 2023 02:00 PM Reporting Lab: [place] [id number] Performing Lab: [address] ([facility]) BASIC METABOLIC PANEL+MG POTASSIUM [MOLES/VOLU ME] IN SERUM OR PLASMA 5.1 mmol/L 3.5 - 5.1 01/23 Specimen Type: PLASMA No comment entered. Ordering Provider: AILIN CHESTER Report Released Date/Time: Jan 23, 2023 02:00 PM Reporting Lab: [facility] [address] Performing Lab: [facility] [id number] [place] [address] ([facility]) BASIC METABOLIC PANEL+MG CHLORIDE [MOLES/VOLU ME] IN SERUM OR PLASMA 109 mmol/L 98 - 107 01/23 H Specimen Type: PLASMA No comment entered. Ordering Provider: AILIN CHESTER Report Released Date/Time: Jan 23, 2023 02:00 PM Reporting Lab: [facility] [address] Performing Lab: [facility] [phone] [place] [address] ([facility]) BASIC METABOLIC PANEL+MG CARBON DIOXIDE, TOTAL [MOLES/VOLU ME] IN SERUM OR PLASMA 21 mmol/L 22 - 29 01/23 L Specimen Type: PLASMA No comment entered. Ordering Provider: AILIN CHESTER Report Released Date/Time: Jan 23, 2023 02:00 PM Reporting Lab: [facility] [address] Performing Lab: [place] [address] [place] ([facility]) BASIC METABOLIC PANEL+MG CALCIUM [MASS/VOLUM E] IN SERUM OR PLASMA 9.4 mg/dL 8.4 - 10.2 01/23 Specimen Type: PLASMA No comment entered. Ordering Provider: AILIN CHESTER Report Released Date/Time: Jan 23, 2023 02:00 PM Reporting Lab: [address] Performing Lab: [address] [place] [address] ([facility]) BASIC METABOLIC PANEL+MG MAGNESIUM [MASS/VOLUM E] IN SERUM OR PLASMA 1.7 mg/dL 1.6 - 2.6 01/23 Specimen Type: PLASMA No comment entered. Ordering Provider: AILIN CHESTER Report Released Date/Time: Jan 23, 2023 02:00 PM Reporting Lab: [place] [phone] Performing Lab: [address] ([facility]) BASIC METABOLIC PANEL+MG ANION GAP IN SERUM OR PLASMA 10 mmol/L 5 - 15 01/23 Specimen Type: PLASMA No comment entered. Ordering Provider: AILIN CHESTER Report Released Date/Time: Jan 23, 2023 02:00 PM Reporting Lab: [place] [phone] Performing Lab: [address] [place] [address] ([facility]) BASIC METABOLIC PANEL+MG GLOMERULAR FILTRATION RATE/1.73 SQ M.PREDICTED [VOLUME RATE/AREA] IN SERUM, PLASMA OR BLOOD BY CREATININE- BASED FORMULA (CKD-EPI 2020) 61 60 01/23 Specimen Type: PLASMA No comment entered. Ordering Provider: AILIN CHESTER Report Released Date/Time: Jan 23, 2023 02:00 PM Reporting Lab: [facility] [address] Performing Lab: [address] [place] ([facility]) BNP NATRIURETIC PEPTIDE B [MASS/VOLUM E] IN SERUM OR PLASMA 1549 pg/mL <99 - 99 01/23 H Specimen Type: PLASMA No comment entered. Ordering Provider: AILIN CHESTER Report Released Date/Time: Jan 23, 2023 02:00 PM Reporting Lab: [facility] [address] Performing Lab: [facility] [address] [place] ([facility]) MICROALBU MIN/CREAT ININE RATIO URINE CREATININE [MASS/VOLUM E] IN URINE 132.8 mg/dL 58.0 - 161.0 11/23 Specimen Type: URINE No comment entered. Ordering Provider: AILIN CHESTER Report Released Date/Time: Nov 23, 2022 11:58 AM Reporting Lab: [facility] [address] Performing Lab: [facility] [address] [place] ([facility]) MICROALBU MIN/CREAT ININE RATIO URINE MICROALBUMI N/CREATININ E [MASS RATIO] IN URINE 28.0 mg/g{c reat} 11/23 Specimen Type: URINE No comment entered. Ordering Provider: AILIN CHESTER Report Released Date/Time: Nov 23, 2022 11:58 AM Reporting Lab: [facility] [address] Performing Lab: [facility] [address] [place] ([facility]) MICROALBU MIN/CREAT ININE RATIO URINE MICROALBUMI N [MASS/VOLUM E] IN URINE 37.2 mg/L 11/23 H Specimen Type: URINE No comment entered. Ordering Provider: AILIN CHESTER Report Released Date/Time: Nov 23, 2022 11:58 AM Reporting Lab: [facility] [address] Performing Lab: [facility] [address] [place] ([facility]) CBC LEUKOCYTES [#/VOLUME] IN BLOOD BY AUTOMATED COUNT 10.80 10*3/u L 4.0 - 11.0 11/23 Specimen Type: BLOOD No comment entered. Ordering Provider: AILIN CHESTER Report Released Date/Time: Nov 23, 2022 11:58 AM Reporting Lab: [facility] [address] Performing Lab: [facility] [address] [place] ([facility]) CBC ERYTHROCYTE S [#/VOLUME] IN BLOOD BY AUTOMATED COUNT 3.87 10*6/u L 4.6 - 6.2 11/23 L Specimen Type: BLOOD No comment entered. Ordering Provider: AILIN CHESTER Report Released Date/Time: Nov 23, 2022 11:58 AM Reporting Lab: [facility] [address] Performing Lab: [place] [phone] [place] ([facility]) CBC HEMOGLOBIN [MASS/VOLUM E] IN BLOOD 12.1 g/dL 13.5 - 17.9 11/23 L Specimen Type: BLOOD No comment entered. Ordering Provider: AILIN CHESTER Report Released Date/Time: Nov 23, 2022 11:58 AM Reporting Lab: [facility] [address] Performing Lab: [address] [place] [address] ([facility]) CBC HEMATOCRIT [VOLUME FRACTION] OF BLOOD BY AUTOMATED COUNT 37.5 41 - 54 11/23 L Specimen Type: BLOOD No comment entered. Ordering Provider: AILIN CHESTER Report Released Date/Time: Nov 23, 2022 11:58 AM Reporting Lab: [facility] [address] Performing Lab: [facility] [address] [place] ([facility]) CBC MCV [ENTITIC VOLUME] BY AUTOMATED COUNT 96.9 fL 80 - 100 11/23 Specimen Type: BLOOD No comment entered. Ordering Provider: AILIN CHESTER Report Released Date/Time: Nov 23, 2022 11:58 AM Reporting Lab: [facility] [address] Performing Lab: [facility] [address] [place] ([facility]) CBC MCH [ENTITIC MASS] BY AUTOMATED COUNT 31.3 pg 27 - 33 11/23 Specimen Type: BLOOD No comment entered. Ordering Provider: AILIN CHESTER Report Released Date/Time: Nov 23, 2022 11:58 AM Reporting Lab: [facility] [address] Performing Lab: [facility] [address] [place] ([facility]) CBC MCHC [MASS/VOLUM E] BY AUTOMATED COUNT 32.3 g/dL 32.0 - 37.5 11/23 Specimen Type: BLOOD No comment entered. Ordering Provider: AILIN CHESTER Report Released Date/Time: Nov 23, 2022 11:58 AM Reporting Lab: [place] [address] Performing Lab: [address] ([facility]) CBC PLATELETS [#/VOLUME] IN BLOOD BY AUTOMATED COUNT 293 10*3/u L 150 - 400 11/23 Specimen Type: BLOOD No comment entered. Ordering Provider: AILIN CHESTER Report Released Date/Time: Nov 23, 2022 11:58 AM Reporting Lab: [address] Performing Lab: [address] ([facility]) CBC PLATELET MEAN VOLUME [ENTITIC VOLUME] IN BLOOD BY AUTOMATED COUNT 10.3 fL 7.4 - 10.4 11/23 Specimen Type: BLOOD No comment entered. Ordering Provider: AILIN CHESTER Report Released Date/Time: Nov 23, 2022 11:58 AM Reporting Lab: [place] [phone] Performing Lab: [address] ([facility]) CBC ERYTHROCYTE DISTRIBUTIO N WIDTH [RATIO] BY AUTOMATED COUNT 13.2 11.5 - 14.5 11/23 Specimen Type: BLOOD No comment entered. Ordering Provider: AILIN CHESTER Report Released Date/Time: Nov 23, 2022 11:58 AM Reporting Lab: [facility] [address] Performing Lab: [address] ([facility]) COMPREHEN SIVE METABOLIC PANEL+MG CREATININE [MASS/VOLUM E] IN SERUM OR PLASMA 1.2 mg/dL 0.7 - 1.2 11/23 Specimen Type: PLASMA No comment entered. Ordering Provider: AILIN CHESTER Report Released Date/Time: Nov 23, 2022 11:58 AM Reporting Lab: [place] [phone] Performing Lab: [address] ([facility]) COMPREHEN SIVE METABOLIC PANEL+MG UREA NITROGEN [MASS/VOLUM E] IN SERUM OR PLASMA 34 mg/dL 8 - 26 11/23 H Specimen Type: PLASMA No comment entered. Ordering Provider: AILIN CHESTER Report Released Date/Time: Nov 23, 2022 11:58 AM Reporting Lab: [facility] [address] Performing Lab: [place] [phone] [place] ([facility]) COMPREHEN SIVE METABOLIC PANEL+MG GLUCOSE [MASS/VOLUM E] IN SERUM OR PLASMA 54 mg/dL 70 - 100 11/23 L Specimen Type: PLASMA No comment entered. Ordering Provider: AILIN CHESTER Report Released Date/Time: Nov 23, 2022 11:58 AM Reporting Lab: [address] Performing Lab: [address] [place] [address] ([facility]) COMPREHEN SIVE METABOLIC PANEL+MG SODIUM [MOLES/VOLU ME] IN SERUM OR PLASMA 143 mmol/L 136 - 145 11/23 Specimen Type: PLASMA No comment entered. Ordering Provider: AILIN CHESTER Report Released Date/Time: Nov 23, 2022 11:58 AM Reporting Lab: [facility] [address] Performing Lab: [facility] [phone] [place] [address] ([facility]) COMPREHEN SIVE METABOLIC PANEL+MG POTASSIUM [MOLES/VOLU ME] IN SERUM OR PLASMA 4.4 mmol/L 3.5 - 5.1 11/23 Specimen Type: PLASMA No comment entered. Ordering Provider: AILIN CHESTER Report Released Date/Time: Nov 23, 2022 11:58 AM Reporting Lab: [facility] [address] Performing Lab: [facility] [phone] [place] [address] ([facility]) COMPREHEN SIVE METABOLIC PANEL+MG CHLORIDE [MOLES/VOLU ME] IN SERUM OR PLASMA 107 mmol/L 98 - 107 11/23 Specimen Type: PLASMA No comment entered. Ordering Provider: AILIN CHESTER Report Released Date/Time: Nov 23, 2022 11:58 AM Reporting Lab: [facility] [address] Performing Lab: [place] [address] [place] ([facility]) COMPREHEN SIVE METABOLIC PANEL+MG CARBON DIOXIDE, TOTAL [MOLES/VOLU ME] IN SERUM OR PLASMA 23 mmol/L 22 - 29 11/23 Specimen Type: PLASMA No comment entered. Ordering Provider: AILIN CHESTER Report Released Date/Time: Nov 23, 2022 11:58 AM Reporting Lab: [address] Performing Lab: [address] [place] [address] ([facility]) COMPREHEN SIVE METABOLIC PANEL+MG CALCIUM [MASS/VOLUM E] IN SERUM OR PLASMA 9.7 mg/dL 8.4 - 10.2 11/23 Specimen Type: PLASMA No comment entered. Ordering Provider: AILIN CHESTER Report Released Date/Time: Nov 23, 2022 11:58 AM Reporting Lab: [place] [address] Performing Lab: [address] [place] [address] ([facility]) COMPREHEN SIVE METABOLIC PANEL+MG PROTEIN [MASS/VOLUM E] IN SERUM OR PLASMA 7.2 g/dL 6.0 - 8.3 11/23 Specimen Type: PLASMA No comment entered. Ordering Provider: AILIN CHESTER Report Released Date/Time: Nov 23, 2022 11:58 AM Reporting Lab: [place] [phone] Performing Lab: [address] [place] [address] ([facility]) COMPREHEN SIVE METABOLIC PANEL+MG ALBUMIN [MASS/VOLUM E] IN SERUM OR PLASMA 4.1 g/dL 3.5 - 5.2 11/23 Specimen Type: PLASMA No comment entered. Ordering Provider: AILIN CHESTER Report Released Date/Time: Nov 23, 2022 11:58 AM Reporting Lab: [place] [phone] Performing Lab: [place] [phone] [place] ([facility]) COMPREHEN SIVE METABOLIC PANEL+MG BILIRUBIN.T OTAL [MASS/VOLUM E] IN SERUM OR PLASMA 0.5 mg/dL 0.2 - 1.2 11/23 Specimen Type: PLASMA No comment entered. Ordering Provider: AILIN CHESTER Report Released Date/Time: Nov 23, 2022 11:58 AM Reporting Lab: [facility] [address] Performing Lab: [address] [place] ([facility]) COMPREHEN SIVE METABOLIC PANEL+MG MAGNESIUM [MASS/VOLUM E] IN SERUM OR PLASMA 1.4 mg/dL 1.6 - 2.6 11/23 L Specimen Type: PLASMA No comment entered. Ordering Provider: AILIN CHESTER Report Released Date/Time: Nov 23, 2022 11:58 AM Reporting Lab: [facility] [address] Performing Lab: [facility] [phone] [place] [address] ([facility]) COMPREHEN SIVE METABOLIC PANEL+MG ANION GAP IN SERUM OR PLASMA 13 mmol/L 5 - 15 11/23 Specimen Type: PLASMA No comment entered. Ordering Provider: AILIN CHESTER Report Released Date/Time: Nov 23, 2022 11:58 AM Reporting Lab: [facility] [address] Performing Lab: [facility] [phone] [place] ([facility]) COMPREHEN SIVE METABOLIC PANEL+MG ALKALINE PHOSPHATASE [ENZYMATIC ACTIVITY/VO LUME] IN SERUM OR PLASMA 87 U/L 40 - 150 11/23 Specimen Type: PLASMA No comment entered. Ordering Provider: AILIN CHESTER Report Released Date/Time: Nov 23, 2022 11:58 AM Reporting Lab: [facility] [address] Performing Lab: [facility] [address] [place] ([facility]) COMPREHEN SIVE METABOLIC PANEL+MG ALANINE AMINOTRANSF ERASE [ENZYMATIC ACTIVITY/VO LUME] IN SERUM OR PLASMA 28 U/L 11/23 Specimen Type: PLASMA No comment entered. Ordering Provider: AILIN CHESTER Report Released Date/Time: Nov 23, 2022 11:58 AM Reporting Lab: [facility] [address] Performing Lab: [facility] [address] [place] ([facility]) COMPREHEN SIVE METABOLIC PANEL+MG ASPARTATE AMINOTRANSF ERASE [ENZYMATIC ACTIVITY/VO LUME] IN SERUM OR PLASMA 33 U/L 11/23 Specimen Type: PLASMA No comment entered. Ordering Provider: AILIN CHESTER Report Released Date/Time: Nov 23, 2022 11:58 AM Reporting Lab: [facility] [address] Performing Lab: [facility] [address] [place] ([facility]) COMPREHEN SIVE METABOLIC PANEL+MG GLOMERULAR FILTRATION RATE/1.73 SQ M.PREDICTED [VOLUME RATE/AREA] IN SERUM, PLASMA OR BLOOD BY CREATININE- BASED FORMULA (CKD-EPI 2020) 61 11/23 Specimen Type: PLASMA No comment entered. Ordering Provider: AILIN CHESTER Report Released Date/Time: Nov 23, 2022 11:58 AM Reporting Lab: [facility] [address] Performing Lab: [facility] [address] [place] ([facility]) HEMOGLOBI N A1C HEMOGLOBIN A1C/HEMOGLO BIN.TOTAL [...] Nov 23, 2022 11:58 AM Reporting Lab: [facility] [address] Performing Lab: [facility] [address] [place] ([facility]) LIPID PANEL,NON -FASTING CHOLESTEROL [MASS/VOLUM E] IN SERUM OR PLASMA 130 mg/dL 11/23 Specimen Type: PLASMA No comment entered. Ordering Provider: AILIN CHESTER Report Released Date/Time: Nov 23, 2022 11:58 AM Reporting Lab: [facility] [address] Performing Lab: [facility] [address] [place] ([facility]) LIPID PANEL,NON -FASTING CHOLESTEROL IN HDL [MASS/VOLUM E] IN SERUM OR PLASMA 39 mg/dL 11/23 L Specimen Type: PLASMA No comment entered. Ordering Provider: AILIN CHESTER Report Released Date/Time: Nov 23, 2022 11:58 AM Reporting Lab: [facility] [address] Performing Lab: [facility] [address] [place] ([facility]) LIPID PANEL,NON -FASTING CHOLESTEROL IN LDL [MASS/VOLUM E] IN SERUM OR PLASMA BY CALCULATION 73 mg/dL 11/23 Specimen Type: PLASMA No comment entered. Ordering Provider: AILIN CHESTER Report Released Date/Time: Nov 23, 2022 11:58 AM Reporting Lab: [facility] [id number] Performing Lab: [facility] [id number] [place] ([facility]) LIPID PANEL,NON -FASTING CHOLESTEROL IN VLDL [MASS/VOLUM E] IN SERUM OR PLASMA BY CALCULATION 18 mg/dL 11/23 Specimen Type: PLASMA No comment entered. Ordering Provider: AILIN CHESTER Report Released Date/Time: Nov 23, 2022 11:58 AM Reporting Lab: [facility] [id number] Performing Lab: [facility] [id number] [place] ([facility]) LIPID PANEL,NON -FASTING CHOLESTEROL NON HDL [MASS/VOLUM E] IN SERUM OR PLASMA 91 mg/dL 11/23 Specimen Type: PLASMA No comment entered. Ordering Provider: AILIN CHESTER Report Released Date/Time: Nov 23, 2022 11:58 AM Reporting Lab: [facility] [id number] Performing Lab: [facility] [phone] [place] ([facility]) LIPID PANEL,NON -FASTING TRIGLYCERID E [MASS/VOLUM E] IN SERUM OR PLASMA 92 mg/dL 11/23 Specimen Type: PLASMA No comment entered. Ordering Provider: AILIN CHESTER Report Released Date/Time: Nov 23, 2022 11:58 AM Reporting Lab: [facility] [id number] Performing Lab: [facility] [phone] [place] ([facility] TSH W/REFLEX TO FREE T4 THYROTROPIN [UNITS/VOLU ME] IN SERUM OR PLASMA 4.59 u[IU]/ mL 0.35 - 4.94 11/23 Specimen Type: PLASMA No comment entered. Ordering Provider: AILIN CHESTER Report Released Date/Time: Nov 23, 2022 11:58 AM Reporting Lab: [facility] [phone] Performing Lab: [facility] [id number] [place] ([facility]) Vital Signs Combined list of inpatient and outpatient Vital Signs from Department of Defense and [facility], ranging from 12 months to all on record, depending upon the facility. Vital Sign Value Date Comments Source Encounters Combined list of: 1) Encounters from Department of Veterans Affairs facilities going back up to thelast 18 months. 2) Encounters from the Department of [facility] facilities going back up to 280 months. Location Location Details Encounter Type Encounter Number Reason For Visit Attending Provider ADM Date DC Date Status Disposition Source [facility] Outpatient Encounter [id number] 07/31 [facility] Outpatient Encounter [id number] 08/21 [facility] Outpatient [facility]counter [id number] 09/20 [facility] Outpatient Encounter [id number] 11/11 [facility] Outpatient Encounter [id number] ZARI POWER 11/16 [facility] Outpatient Encounter [id number] 11/21 [facility] ([facility]) OFFICE O/P EST MOD 30-39 MIN [id number] Diagnos is: ICD-10- CM Z00.00 Encntr for general adult medical exam w/o abnorma l finding s
CANDELARIO CHESTER 11/23 [facility] ([facility]) [place] ([facility]) GAIT TRAINING THERAPY [id number] Diagnos is: ICD-10- CM R26.89 Other abnorma lities of gait and mobilit y
OMAYRA JAMESON V 11/23 [facility] ([facility] [place] [facility] Outpatient Encounter [id number] SA TRINO RA R 12/11 [place] [facility] [place] [facility] Outpatient Encounter [id number] 12/25 [place] [facility] [place] [facility] Outpatient Encounter [id number] SA TRINO RA R 12/28 [place] [facility] [place] [facility] Outpatient Encounter [id number] 01/05 [place] [facility] [place] [facility] Outpatient Encounter [id number] 01/11 [place] [facility] [place] [facility] Outpatient Encounter [id number] 01/16 [place] [facility]) OFFICE O/P EST HI 40-54 MIN [id number] Diagnos is: ICD-10- CM I50.9 Heart failure , unspeci fied
CANDELARIO CHESTER 01/23 [facility] ([facility] [place] [facility] Outpatient Encounter [id number] Marcus POTTS I 01/24 [place] [facility] [place] [facility] Outpatient Encounter [id number] Danica TORRE 02/05 [place] [facility] [place] [facility] Outpatient Encounter [id number] 02/09 [place] [facility] [place] [facility] Outpatient Encounter [id number] Danica TORRE 02/09 [place] [facility] [place] [facility] Outpatient Encounter [id number] 02/14 [place] [facility] [place] [facility] Outpatient Encounter [id number] 02/15 [place] [facility] [place] [facility] Outpatient Encounter [id number] 02/19 [place] [facility] [place] [facility] Outpatient Encounter [id number] 02/20 [place] [facility] [place] [facility] Outpatient Encounter [id number] 02/20 [place] [facility] [place] [facility] Outpatient Encounter [id number] 02/20 [place] [facility] [place] [facility] Outpatient [facility]counter [id number] 02/20 [place] [facility] [place] [facility] Outpatient Encounter [id number] 02/21 [place] [facility] [place] [facility] QNHP OL DIG ASSMT&MGMT 5-10 [id number] Diagnos is: ICD-10- CM E11.9 Type 2 diabete s mellitu s without complic ations< br/> HARDER,SIVA LY 02/22 [place] [facility] PRO PHONE CALL 11-20 MIN [id number] Diagnos is: ICD-10- CM I50.9 Heart failure , unspeci fied
JERMAINE ALCANTAR ANDMARIA INES Frey 02/23 [facility] ([facility] [place] [facility] Outpatient Encounter [id number] 02/26 [place] [facility] [place] [facility] Outpatient Encounter [id number] 03/01 [place] [facility] [place] [facility] Outpatient Encounter [id number] 03/05 [place] [facility] [place] [facility] Outpatient Encounter [id number] SA RA Sandra JAMESON 03/09 [place] [facility] [place] [facility] Outpatient Encounter [id number] 03/14 [place] [facility] [place] [facility] Outpatient Encounter [id number] SA JAMARI JAMESON R 04/12 [employer] [facility] [employer] [facility] [place] [facility] Outpatient Encounter [id number] TRINO R 04/16 [facility] [place] [facility] Outpatient Encounter [id number] TRINO R 05/01 [facility] [place] [facility] Outpatient Encounter [id number] 07/11 [facility] [place] [facility] Outpatient Encounter [id number] [facility] [place] [facility] Outpatient Encounter [id number] 07/12 [facility] PRO PHONE CALL 5-10 MIN [id number] Diagnos is: ICD-10- CM 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
VIV BARFIELD 07/19 [facility] HEARING AID REPAIR/MOD IFYING [id number] Diagnos is: ICD-10- CM 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
CARY CORCORAN 08/09 [facility] HEARING AID FITTING/CH ECKING [id number] Diagnos is: ICD-10- CM 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
Sy MAKI 09/17 [facility] Outpatient Encounter [id number] 10/17 [facility] ([facility]) OFFICE O/P EST HI 40 MIN [id number] Diagnos is: ICD-10- CM E11.9 Type 2 diabete s mellitu s without complic ations< br/> CANDELARIO CHESTER 11/07 [place] ([facility]) Social History Combined list of available smoking, tobacco, and other social history from Department of Defense and Veterans Affairs facilities. Social History Type Response Date Comment Sourc e Tobacco smoking status NHIS [facility]BACCO FORMER USER 11/08/2023 [place] ([facility]) History of tobacco use VA-TOBACCO QUIT 1 5 YRS OR MORE 11/08/2023 [place] ([facility]) History of tobacco use VA-TOBACCO QUIT 1 5 YRS OR MORE 11/23/2022 [place] ([facility]) History of tobacco use [facility]BACCO FORMER USER 11/29/2021 [place] ([facility]) History of tobacco use [facility]AC[facility] FORMER USER 10/21/2020 [place] ([facility]) Plan of Care List of future care activities from Department of Veterans Affairs facilities. Additional future care activities may be listed in the Assessment and Plan section. Date/Time Care Activity Care Activity Detail Facili ty 12/18/2023 AMBULATORY - REHAB MEDICINE AMBULATORY - REHAB MEDICINE [place] ([facility]) 11/08/2023 Consult Order REHAB OUTPT [place] MOBILITY [place] Guide's Choice [place] ([facility])
--- OUTSIDE RECORDS SUMMARY | 2023-11-21 08:08 | XMS_ITS | Clinical Summary ---
Author Organization [employer] [facility] Address [place], [place] [address] Care Team Providers Care Hydraulic Mechanic Name Role Phone VotelMelquiades MD Primary Care Provider + Nurses, Advanced Heart Failure Unavailable + Shade Manuel MD Unavailable [phone] Allergies No known active allergies Medications Medication Sig Dispensed Refills Start Date End Date Status blood-glucose meterIndications: Type 2 diabetes mellitus with complication (HC) Ascensia Glucometer, Dispense meter, test strips, lancets covered by pt ins. Test 3 times daily 1 Device 07/09/2020 Active Insulin Bridger, Disposable, (Novofine 32) 32 gauge x 1/4Indications:2 [...] be used to read blood sugars, follow assembly machine offbearer directions. Change each sensor every 10 days [...] mg sublingual tabletIndications :Coronary artery disease involving [place] heart without angina pectoris, unspecified vessel or [...] mg sublingual tabletIndications :Coronary artery disease involving 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 or graft Overview: 4 vessel CABG 2001 Lexiscan only for cardiac evaluation - no treadmill Other ill-defined and unknow n causes of morbidity and mortality Impotence of organic origin Resolved Problems Problem Noted Date Diagnosed Date Resolved Date Type 2 diabetes mellitus with complication 11/16/2017 12/22/2022 Heart disease, unspecified 0 07/10/2007 Encounters Date Type Department Care Team Description 11/20/2023 1:38 PM CDT - 11/20/2023 11:59 PM CDT Hospital Encounter [facility] [address] [place] [address] Votel, MD Edgar Cleary Rebecca L, PT 11/20/2023 Travel 11/19/2023 Telephone [facility] [address] [place] [address] Votel, Melquiades Gray MD Concerns 11/14/2023 Telephone [facility] [address] [place] [address] Votel, Melquiades Gray MD Prior Authorization (insulin aspart, U-100, (NOVOLOG FLEXPEN) 100 unit/mL (3 mL) pen) 11/13/2023 2:00 PM CDT Patient Outreach [address] [phone] Priyanka Hummel laminating press operator (Review Dexcom report/insulin management) 11/12/2023 12:55 PM CDT - 11/12/2023 11:59 PM CDT Hospital Encounter [facility] [address] [place] [address] Votel, MD Edgar Cleary Rebecca L, PT 11/12/2023 Travel 11/07/2023 Telephone [facility] [address] [place] [address] Melquiades Man MD INSULIN ASPART FLEXPEN 11/06/2023 10:25 AM CDT Office Visit [facility] [address] [place] [address] Melquiades Man MD Medicare ANNUAL (subsequent) Visit (83 year old male); Medication Management (insulin) 11/06/2023 Telephone [facility] [address] [place] [address] Votedebbie, Melquiades Gray MD Form 11/05/2023 12:49 PM CDT - 11/05/2023 11:59 PM CDT Hospital Encounter [facility] [address] [place] [address] Votel, MD Edgar Cleary Rebecca L, PT 11/05/2023 Travel 11/01/2023 1:00 PM CDT - 11/01/2023 11:59 PM CDT Hospital Encounter [facility] [address], [place] [address] GunnarteMelquiades lewis MD Oswald, Rebecca L, PT 11/01/2023 Travel 10/31/2023 Telephone [facility] [address] [place] [address] Melquiades Man MD 10/30/2023 10:00 AM CDT Patient Outreach [address] [phone] Priyanka Hummel laminating press operator (Insulin management/education ) 10/29/2023 12:25 PM CDT - 10/29/2023 11:59 PM CDT Hospital Encounter [facility] [address] [place] [address] VotelMelquiades MD Oswald, Rebecca L, PT 10/29/2023 Travel 10/25/2023 1:15 PM CDT - 10/25/2023 11:59 PM CDT Hospital Encounter [facility] [address], [place] [address] Votel, MD Edgar Cleary Rebecca L, PT 10/25/2023 Travel 10/23/2023 Telephone [facility] [address] [place] [address] VoteMelquiades lewis MD 10/22/2023 1:21 PM CDT - 10/22/2023 11:59 PM CDT Hospital Encounter [facility] [address] [place] [address] Votel, MD Edgar Cleary Rebecca L, PT 10/22/2023 Travel 10/18/2023 1:45 PM CDT - 10/18/2023 11:59 PM CDT Hospital Encounter [facility] [address] [place] [address] VoteMelquiades lewis MD Manuell, Kayla, PT 10/18/2023 Travel 10/17/2023 Telephone [facility] [address] [place] [address] VotelMelquiades MD Outside Order (regarding frequency of home health visits) 10/15/2023 12:55 PM CDT - 10/15/2023 11:59 PM CDT Hospital Encounter [facility] [address] [place] [address] Gunnartedebbie, MD Lesly Cleary Isabelle, PT 10/15/2023 Travel 10/11/2023 12:51 PM CDT - 10/11/2023 11:59 PM CDT Hospital Encounter [facility] [address] [place] [address] Melquiades Man MD Tonsfeldt, Isabelle, PT 10/11/2023 Travel 10/11/2023 Telephone [facility] [address] [place] [address] Melquiades Man MD 10/09/2023 Telephone [facility] [address] [place] [address] Melquiades Man MD Form 10/05/2023 Transcribe Orders [address] [phone] Isatu Hanley MD 10/04/2023 1:42 PM CDT - 10/04/2023 11:59 PM CDT Hospital En[facility] [address] [place] [address] Melquiades Man MD Tonsfeldt, Isabelle, PT 10/04/2023 9:35 AM CDT Office Visit [facility] [address] [place] [address] Rachel Sauceda, DO Diabetes 10/04/2023 Telephone [facility] [address] [place] [address] Rachel Sauceda, DO Medication Management 10/04/2023 Travel 10/03/2023 Refill [facility] [address] [place] [phone] Shade Manuel MD [facility] 10/01/2023 12:58 PM CDT - 10/01/2023 11:59 PM CDT Hospital Encounter [facility] [address] [place] [address] Melquiades Man MD Tonsfeldt, Isabelle, PT 10/01/2023 Travel 09/30/2023 Refill [facility] [address] [place] [address] Shade Manuel MD Refill Request (Dapagliflozin Propanediol) 09/27/2023 12:56 PM CDT - 09/27/2023 11:59 PM CDT Hospital Encounter [facility] [address] [place] [address] Melquiades Man MD Tonsfeldt, Isabelle, PT 09/27/2023 Travel 09/24/2023 12:57 PM CDT - 09/24/2023 11:59 PM CDT Hospital Encounter [facility] [address] [place] [address] Melquiades Man MD Tonsfeldt, Isabelle, PT 09/24/2023 Travel 09/20/2023 11:45 AM CDT - 09/20/2023 11:59 PM CDT Hospital Encounter [facility] [address] [place] [address] Melquiades Man MD Tonsfeldt, Isabelle, PT 09/20/2023 Travel 09/19/2023 Telephone [facility] [address] [place] [address] Melquiades Man MD 09/17/2023 Telephone [facility] [address] [place] [address] Melquiades Man MD orders (wound care 2 times per week) 09/13/2023 1:00 PM CDT - 09/13/2023 11:59 PM CDT Hospital Encounter [facility] [address] [place] [address] Votel, MD Lesly Cleary Isabelle, PT 09/13/2023 Travel 09/10/2023 12:53 PM CDT - 09/10/2023 11:59 PM CDT [facility] [address] [place] [address] Votel, MD Lesly Cleary Isabelle, PT 09/10/2023 Travel 09/06/2023 9:27 AM CDT - 09/06/2023 11:59 PM CDT Hospital Encounter [facility] [address] [place] [address] Votel, MD Lesly Cleary Isabelle, PT 09/06/2023 Travel 08/31/[address] [address] Votel, Melquiades Gray MD ORDERS 08/23/2023 12:46 PM CDT - 08/23/2023 11:59 PM CDT Hospital Encounter [facility] [address] [place] [address] Votel, MD Lesly Cleary Isabelle, PT History of leg amputation (HC) 08/23/2023 Travel from Last 3 Months Immunizations Name Administration Dates Next Due COVID-19 vaccine (Moderna 100mcg/0.5mL) PF, MDV 03/09/2021 COVID-19 vaccine (Moderna 50 mcg/0.5mL) 12YO+ BIVALENT PF, MDV 03/29/2022 COVID-19 vaccine (Pfizer-Bio NTech 30mcg/0.3mL) PF, MDV 03/09/2021,07/24/2020,07/03/2020 COVID-19 vaccine Comirnaty (Pfizer-BioNTech 30mcg/0.3mL) 12YO+ [id number] Formula PF, SDV, PFS 03/05/2023 Influenza Virus, [...] CDT Respiratory Rate 24 05/03/2023 7:04 AM RCIS Oxygen Saturation 99% 11/06/2023 10: 30 AM CDT Inhaled Oxygen Concentration - - Weight 71.7 kg (158 lb) 10/04/2023 9:26 AM CDT patient reported Height 175.3 cm (5' 9.02) 07/27/2023 1 1:51 AM CDT Body Mass Index 23.32 07/27/2023 11:51 AM CDT Plan of Treatment Upcoming Encounters Date Type Department Care Team (Late st Contact Info) Description 11/22/2023 1:30 PM CDT Appointment [facility] [address] [place] [address] Farheen Puentes, PT [address], [place] [address] 11/26/2023 1:15 PM CDT Appointment [facility] [address] [place] [address] Jasmin Hernández, PT [address] [place] [address] 11/29/2023 1:00 PM CDT [facility]ment [facility] [address] [place] [address] Farheen Puentes, PT [address] [place] [address] 12/03/2023 1:45 PM CDT [facility]ment [facility] [address] [place] [address] Farheen Puentes, PT [address] [place] [address] 12/06/2023 1:00 PM CDT [facility]ment [facility] [address] [place] [address] Farheen Puentes, PT [address] [place] [address] 12/10/2023 1:45 PM CDT [facility]ment [facility] [address] [place] [address] Farheen Puentes, PT [address] [place] [address] 12/13/2023 1:45 PM CDT Appointment [facility] [address] [place] [address] Farheen Puentes, PT [address] [place] [address] 12/17/2023 1:00 PM CDT [facility]ment [facility] [address] [place] [address] Farheen Puentes, PT [address] [place] [address] 12/20/2023 11:00 AM CDT Patient Outreach [address] [phone] Priyanka Hummel, RN [address] [place] [address] 12/20/2023 1:00 PM CDT [facility]ment [facility] [address] [place] [address] Farheen Puentes, PT [address], [place] [address] 12/24/2023 1:00 PM CDT Appointment [facility] [address] [place] [address] Farheen Puentes, PT [address] [place] [address] 12/27/2023 1:00 PM CDT Appointment [facility] [address] [place] [address] Farheen Puentes, PT [address], [place] [address] 12/31/2023 1:00 PM CDT Appointment [facility] [address] [place] [address] Jasmin Hernández, PT [address] [place] [address] 01/02/2024 1:45 PM CDT Appointment [facility] [address] [place] [address] Farheen Puentes, PT [address], [place] [address] 01/08/2024 1:30 PM CDT Office Visit [address] [place] [address] Shade Manuel MD [address] [facility] [address] [place] [address] Health Maintenance Due Date Last Done Comments COVID-19 vaccine series (2022- season) 2023 03/05/2023, 03/29/2022, 03/09/2021, Additional history [...] WITH AUTO DIFFERENTIAL (11/06/2023 12:33 PM CDT) [facility] WHITE BLOOD COUNT 8.5 4.5 - 11.0 thou/cu mm 11/06/2023 12:44 PM CDT [facility] RED BLOOD COUNT 3.98(L) 4.30 - 5.90 mil/cu mm 11/06/2023 12:44 PM CDT [facility] HEMOGLOBIN 12.0(L) 13.5 - 17.5 g/dL 11/06/2023 12:44 PM CDT [facility] HEMATOCRIT 36.7(L) 37.0 - 53.0 % 11/06/2023 12:44 PM CDT [facility] MCV 92 80 - 100 fL 11/06/2023 12:44 PM CDT [facility] MCH 30.2 26.0 - 34.0 pg 11/06/2023 12:44 PM CDT [facility] MCHC 32.7 32.0 - 36.0 g/dL 11/06/2023 12:44 PM CDT [facility] RDW 15.9(H) 11.5 - 15.5 % 11/06/2023 12:44 PM CDT [facility] PLATELET COUNT 273 140 - 440 thou/cu mm 11/06/2023 12:44 PM CDT [facility] MPV 9.6 6.5 - 11.0 fL 11/06/2023 12:44 PM CDT [facility] % NEUT 69.0 % 11/06/2023 12:44 PM CDT [facility] % LYMPH 18.8 % 11/06/2023 12:44 PM CDT [facility] % MONO 7.6 % 11/06/2023 12:44 PM CDT [facility] % EOS 3.8 % 11/06/2023 12:44 PM CDT [facility] % BASO 0.8 % 11/06/2023 12:44 PM CDT [facility] ABSOLUTE NEUTROPHILS 5.9 1.7 - 7.0 thou/cu mm 11/06/2023 12:44 PM CDT [facility] ABSOLUTE LYMPHOCYTES 1.6 0.9 - 2.9 thou/cu mm 11/06/2023 12:44 PM CDT [facility] ABSOLUTE MONOCYTES 0.6 <0.9 thou/cu mm 11/06/2023 12:44 PM CDT [facility] ABSOLUTE EOSINOPHILS 0.3 <0.5 thou/cu mm 11/06/2023 12:44 PM CDT [facility] ABSOLUTE BASOPHILS 0.1 <0.3 thou/cu mm 11/06/2023 12:44 PM CDT [facility] Blood BLOOD SPECIMEN / Unknown Butterfly / Unknown 11/06/2023 12:33 PM CDT 11/06/2023 12:37 PM CDT Melquiades Man MD HEMATOLOGY [facility] [address] [place] [address], [place] [phone] * LIPID PANEL W REFLEX MEASURED LDL (11/06/2023 12:33 PM CDT) CHOLESTEROL,TOTAL 156 100 - 199 mg/dL 11/07/2023 1:57 AM CDT [facility] Comment: Cholesterol, Total Reference Ranges Desirable <200 mg/dL Borderline 200-239 mg/dL High >=240 mg/dL TRIGLYCERIDES 124 <150 mg/dL 11/07/2023 1:57 AM CDT [facility] HDL CHOLESTEROL 56 >40 mg/dL 1:57 AM CDT [facility] NON-HDL CHOLESTEROL 100 <145 mg/dl 11/07/2023 1:57 AM CDT [facility] CHOL/HDL RATIO 2.79 <4.50 11/07/2023 1:57 AM CDT [facility] LDL CHOLESTEROL 75 <=130 mg/dL 11/07/2023 1:57 AM CDT [facility] VLDL CHOLESTEROL 25 <=30 mg/dL 11/07/2023 1:57 AM CDT [facility] PROVIDER ORDERED STATUS RANDOM 11/07/2023 1:57 AM CDT [facility] Blood BLOOD SPECIMEN / Unknown Butterfly / Unknown 11/06/2023 12:33 PM CDT 11/06/2023 12:37 PM CDT Melquiades Man MD CHEMISTRY [facility] [address] [place] [address], [place] * TSH (11/06/2023 12:33 PM CDT) TSH 2.24 0.27 - 4.20 uIU/mL 11/07/2023 1:57 AM CDT [facility] Blood BLOOD SPECIMEN / Unknown Butterfly / Unknown 11/06/2023 12:33 PM CDT 11/06/2023 12:37 PM CDT Narrative [facility] - 11/07/2023 1:57 AM CDT In Adults, TSH values between 5.00 and 10.00 uIU/ml do not necessarily indicate the presence of Hypothyroidism. Correlation with clinical findings such as presence of goiter and/or Thyroperoxidase (TPO) Antibody may be helpful. For more information please refer to RONNIE 2004; 291: 228-238. Melquiades Man MD CHEMISTRY Performing Organization Address [facility]/ZIP Co de Phone Number [facility] [address] [place] [address], * ALT (SGPT) (11/06/2023 12:33 PM CDT) Pathologist [facility] ALT (SGPT) 21 10 - 50 IU/L 11/07/2023 1:57 AM CDT [facility] Blood BLOOD SPECIMEN / Unknown Butterfly / Unknown 11/06/2023 12:33 PM CDT 11/06/2023 12:37 PM CDT Melquiades Man MD CHEMISTRY Performing Organization Address City/[facility]/ZIP Co de Phone Number [facility] [address] [place] [address], * (ABNORMAL) BASIC METABOLIC PANEL (11/06/2023 12:33 PM CDT) Pathologist [facility] SODIUM 139 136 - 145 mmol/L 11/07/2023 1:57 AM CDT [facility] POTASSIUM 4.8 3.5 - 5.1 mmol/L 11/07/2023 1:57 AM CDT [facility] CHLORIDE 102 98 - 107 mmol/L 11/07/2023 1:57 AM CDT [facility] CO2,TOTAL 23 22 - 29 mmol/L 11/07/2023 1:57 AM CDT [facility] ANION GAP 14 5 - 18 11/07/2023 1:57 AM CDT [facility] GLUCOSE 137(H) 70 - 99 mg/dL 11/07/2023 1:57 AM CDT [facility] CALCIUM 10.0 8.8 - 10.2 mg/dL 11/07/2023 1:57 AM T [facility] BUN 42(H) 8 - 23 mg/dL 11/07/2023 1:57 AM T [facility] CREATININE 1.65(H) 0.70 - 1.20 mg/dL 11/07/2023 1:57 AM T [facility] BUN/CREAT RATIO 25(H) 10 - 20 1:57 AM T [facility] eGFR 41(L) >90 mL/min/1.7 3m2 11/07/2023 1:57 AM T [facility] Comment:As of 2021, eG [...] 12:37 PM CDT Melquiades Man MD CHEMISTRY [facility] [address] [place] [address], * (ABNORMAL) HEMOGLOBIN A1C MONITORING (POCT) (10/04/2023 9:44 AM CDT) HEMOGLOBIN A1C MONITORING (POCT) 11.6(H) <=6.4 % 10/04/2023 9:53 AM CDT [facility] Blood BLOOD SPECIMEN / Unknown Venipuncture / Unknown 10/04/2023 9:44 AM CDT 10/04/2023 9:44 AM CDT Narrative [facility] - 10/04/2023 9:53 AM CDT ? [...] Anemias, Splenectomy ? Rachel Sauceda DO CHEMISTRY [facility] [address] [place] [address], from Last 3 Months Additional Health Concerns [...] 12 months since positive culture): resides in acute/group home care, receiving hemodialysis, has chronic open wounds/skin damage, has long-term percutaneous indwelling medical devices Exclusions for nares collection (if <12 months since positive culture) include all of the previous exclusions plus patients on antibiotics 7 days prior to collection 03/08/2023 05/31/2023 [id number]-GNB 04/26/2023 04/26/2023 Advance Directives Documents on File Type Date Recorded Patient Catalogue Illustrator Harjinder hendrickson POL 03/26/2023 * Full Code (Latest Code [...] Code Status Discussion: Reviewed Preferences Care Teams Hydraulic Mechanic Relationship Specialty Start Date End Date Votel, Melquiades Gray MD [address] [place] [address] PCP - General 11/20/05 Nurses, Advanced Heart Failure [address] [address] Advanced Heart Failure/Transplant Card 01/24/23 Shade Manuel MD [address] [place] [address] [place] [address] Cardiovascular Disease 01/24/23
--- OUTSIDE RECORDS SUMMARY | 2023-11-21 08:08 | XMS_ITS | Referral Summary ---
Author Organization [facility] Address [address] [place] [address] Care Team Providers Care Tool Polishing Machine Operator Name Role Phone Elsewhere, Pcp Primary Care Provider Unavailabl e Source Comments Patient records contain information from all sites at [facility]. For routine questions regarding patient records, call [phone] during business hours, M-F 8:00 AM - 5:00 PM Central Time. Record requests for emergency care only can be directed to [phone] at any time.[facility] Allergies No known [...] Heel: Area continues to improve. Wound measures [id number]. Edges well defined, attached and 100% re-epithelialized [...] will follow up with his PCP in [facility] (Current) Anticoagulant Treatment 08/2022 Overview: On [...] standard wheelchair Mr. Woods was admitted to [facility] April 10 following BK right [...] 0.92 in April 2023. vice president of finance confirmed levothyroxine is given every morning (6am) without other medications. Therefore, we will increase levothyroxine 50mcg to 75mcg and rechecked TSH in 6 weeks. Nursing instructed to continue monitoring for symptoms of hypothyroidism and contact [place] provider if any concerns. Amputation Toe Status [...] and palpitation. 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 Atherosclerosis Of [place] Ar teries Of Other Extremities With Ulceration [...] 12/27/2022. Treated with remdesivir at [facility]. Anemia 01/16/2023 04/12/2023 Overview: Lab [...] 05/24/2023 Overview: Onychomycosis of toenails; Original Code: [id number] Original Codesystem: SNOMED CT Classification: Medical Confirmation [...] Comments Blood Pressure 107/66 06/18/2023 1:10 PM INTERIOR PLANT CARETAKER Pulse 78 06/18/2023 1:10 PM INTERIOR PLANT CARETAKER Temperature 36.6 ??C (97.8 ??F) 06/18/2023 1:10 PM CS T Respiratory Rate 16 06/18/2023 1:10 PM INTERIOR PLANT CARETAKER Oxygen Saturation 95% 06/18/2023 1:10 PM INTERIOR PLANT CARETAKER Inhaled Oxygen Concentration - - Weight 75.8 kg (167 lb) 06/18/2023 1:10 PM INTERIOR PLANT CARETAKER Height 175.3 cm (5' 9) 04/12/2023 3:21 PM INTERIOR PLANT CARETAKER Body Mass Index 24.66 04/12/2023 3:21 PM INTERIOR PLANT CARETAKER Plan of Treatment Not on file Advance Directives For more information, please contact: [phone] * DNR/DNI (Latest Code Status on File) Date Activated Date Inactivated Comments 05/24/2023 6:14 PM * DNR/DNI Date Activated Date Inactivated Comments 04/12/2023 4:11 PM 04/16/2023 7:15 AM Care Teams Tool Polishing Machine Operator Relationship Specialty Start Date End Date Elsewhere, Pcp PCP - General Internal Medicine 08/28/23
--- OUTSIDE RECORDS SUMMARY | 2023-11-21 08:08 | XMS_ITS ---
Author Organization [facility] Address [address] [place] [address] Care Team Providers Care Dog Beautician Name Role Phone Unavailable Unavailable Unavailable Surgery Details Not on file Complications Check Surgery Details section. Procedure Estimated Blood Loss Check Surgery Details section. Procedure Findings Check Surgery Details section. Procedure Specimens Taken Check Surgery Details section.
--- OUTSIDE RECORDS SUMMARY | 2023-11-21 08:08 | XMS_ITS | Clinical Summary ---
Author Organization [facility] Address [address] [place] [address] Care Team Providers Care General Purchasing Agent Name Role Phone Elsewhere, Pcp Primary Care Provider Unavailabl e Source Comments Patient records contain information from all sites at [facility]. For routine questions regarding patient records, call [phone] during business hours, M-F 8:00 AM - 5:00 PM Central Time. Record requests for emergency care only can be directed to [phone] at any time.[facility] Allergies No known active allergies Medications Medication [...] Heel: Area continues to improve. Wound measures [id number]. Edges well defined, attached and 100% re-epithelialized [...] will follow up with his PCP in [facility] (Current) Anticoagulant Treatment 08/2022 Overview: On apixaban [...] standard wheelchair Mr. Woods was admitted to [facility] April 10 following BK [...] T4 was 0.92 in April 2023. president trust company confirmed levothyroxine is given every morning (6am) without other medications. Therefore, we will increase levothyroxine 50mcg to 75mcg and rechecked TSH in 6 weeks. Nursing instructed to continue monitoring for symptoms of hypothyroidism and contact [place] provider if any concerns. Amputation Toe Status [...] and palpitation. 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 Atherosclerosis Of [place] Ar teries Of Other Extremities With [...] 05/24/2023 Overview: Onychomycosis of toenails; Original Code: [id number] Original Codesystem: SNOMED CT Classification: Medical Confirmation [...] Comments Blood Pressure 107/66 06/18/2023 1:10 PM RECRUITMENT ASSISTANT Pulse 78 06/18/2023 1:10 PM RECRUITMENT ASSISTANT Temperature 36.6 ??C (97.8 ??F) 06/18/2023 1:10 PM CS T Respiratory Rate 16 06/18/2023 1:10 PM RECRUITMENT ASSISTANT Oxygen Saturation 95% 06/18/2023 1:10 PM RECRUITMENT ASSISTANT Inhaled Oxygen Concentration - - Weight 75.8 kg (167 lb) 06/18/2023 1:10 PM RECRUITMENT ASSISTANT Height 175.3 cm (5' 9) 04/12/2023 3:21 PM RECRUITMENT ASSISTANT Body Mass Index 24.66 04/12/2023 3:21 PM RECRUITMENT ASSISTANT Plan of Treatment Health Maintenance Due Date [...] Advance Directives For more information, please contact: [phone] * DNR/DNI (Latest Code Status on File) Date Activated Date Inactivated Comments 05/24/2023 6:14 PM * DNR/DNI Date Activated Date Inactivated Comments 04/12/2023 4:11 PM 04/16/2023 7:15 AM Care Teams General Purchasing Agent Relationship Specialty Start Date End Date Elsewhere, Pcp PCP - General Internal Medicine 08/28/23
== END 2023-11-21 08:00 | disposition home or self-care (01) ==
LOC: WOUND 08:05
PROVIDERS: PCP Family Medicine; Visit Provider Surgery
DX: E11.621 Type 2 diabetes mellitus with foot ulcer (principal); L97.422 Non-pressure chronic ulcer of left heel and midfoot with fat layer exposed; Z79.4 Long term (current) use of insulin; Z79.84 Long term (current) use of oral hypoglycemic drugs
CPT/HCPCS: 97597

== ENCOUNTER 2023-11-28 09:08 | Outpatient (CLI) | payer MEDICARE, BC, SELFPAY ==
--- OUTSIDE RECORDS SUMMARY | 2023-11-28 09:09 | XMS_ITS | Continuity of Care Document ---
Author Name [facility] Organization [facility] Care Team Providers Care Outside Sales Representative Insurance Name Role Phone [facility] Unavailable Unavailable Problems Combined list of problems from Department of Defense and Veterans Affairs facilities. It does not include entries that were removed or entered in error. Problem Status Onset Date Problem Type Date of Resolution Comments Source Exposure to potentially hazardous substance ([facility] [id number]) Active 07/20/19 24 Condition Jul 20, 2023 Entered By: MECHELLE DEMPSEY Comment: [facility] Documentation Initiative [facility] CAD - Coronary Artery Disease ([facility] [id number]) Active Condition [place] ([facility]) CHF - Congestive Heart Failure ([facility] [id number]) Active Condition [place] ([facility]) Diabetes Mellitus Type 2 ([facility] [id number]) Active Condition [place] ([facility]) History of amputation of right leg through tibia and fibula [facility] HTN - Hypertension ([facility] [id number]) Active Condition [place] ([facility]) Hyperlipidemia ([facility] [id number]) Active Condition [facility] Hypothyroidism ([facility] [id number]) Active Condition [place] ([facility]) Long-term current use of insulin Active Condition [place] ([facility]) Peripheral neuropathy due to type 2 diabetes mellitus Active Condition [place] ([facility]) Diagnosis: ICD-10-CM E11.9 Type 2 diabetes mellitus without complications Active Diagnosis [place] ([facility]) Diagnosis: ICD-10-CM H90.3 Sensorineural hearing loss, bilateral Active Diagnosis [facility] Diagnosis: ICD-10-CM I50.9 Heart failure, unspecified Active Diagnosis [place] ([facility]) Diagnosis: ICD-10-CM R26.89 Other abnormalities of gait [...] Feb 15, 2023 40 Feb 16, 2024 [id number] Feb 20, 2023 [facility]UR[facility] ACTIVE 02/16/2024 [id number] KATHY MURPHY 2022 40 [facility] CLOPIDOGREL BISULFATE 75MG TAB CLOPIDOG REL [...] Nov 08, 2023 10 Nov 08, 2024 [id number] Nov 09, 2023 JERMAINE CHESTER [facility] ([facility]) SUBCUT ANEOUS ACTIVE 11/08/2024 [id number] RYAN CHESTER 2023 10 [facility] ([facility]) [...] Site Reaction Lot Number CVX Code Drug Back Hoe Operator Status Comments Source COVID-19 ([employer]), MRNA, LNP-S, PF, NAVYA-SUCROSE, 30 MCG/0.3 ML (AGES 12+ YEARS) 2022 309 complet ed [facility] INFLUENZA, ADJUVANTED, QUADRIVALENT, PF 2022 205 complet ed [facility] RSV, BIVALENT, PROTEIN SUBUNIT RSVPREF, DILUENT RECONSTITUTED , 0.5 ML, PF 2022 305 complet [facility] INFLUENZA, HIGH-DOSE, QUADRIVALENT 1 2021 197 complet [facility] COVID-19 (MODERNA), MRNA, LNP-S, BIVALENT, PF, 50 MCG/0.5 ML OR 25MCG/0.25 ML DOSE 1 2021 229 complet ed [facility] COVID-19 (MODERNA), MRNA, LNP-S, PF, 100 MCG/0.5ML DOSE OR 50 MCG/0.25ML DOSE 2020 207 complet ed [facility] COVID-19 (PFIZER), MRNA, LNP-S, PF, 30 MCG/0.3 ML DOSE 3 2020 208 complet ed [facility] INFLUENZA, HIGH-DOSE, QUADRIVALENT, PF 2020 197 complet ed [facility] INFLUENZA, UNSPECIFIED FORMULATION 2020 88 complet ed [facility] TDAP 2020 115 complet ed Cezar Echevarria, [id number] , exp-2022 and given VIS dated 12/17/2020 [place] [facility] ([facility] ZOSTER RECOMBINANT 2 2020 187 complet ed [facility] ([facility]) ZOSTER RECOMBINANT 1 2020 187 complet ed [facility] ([facility]) COVID-19 (PFIZER), MRNA, LNP-S, PF, 30 MCG/0.3 ML DOSE 2 2020 208 complet ed [facility] COVID-19 (PFIZER), MRNA, LNP-S, PF, 30 MCG/0.3 ML DOSE 1 2020 208 complet ed [facility] INFLUENZA, ADJUVANTED, TRIVALENT, PF 2019 168 complet ed [facility] INFLUENZA, UNSPECIFIED FORMULATION 2019 88 complet ed [facility] INFLUENZA, HIGH-DOSE, TRIVALENT, PF 2018 135 complet ed [facility] INFLUENZA, ADJUVANTED, TRIVALENT, PF 2017 168 complet ed [facility] INFLUENZA, UNSPECIFIED FORMULATION 2016 88 complet ed [facility] INFLUENZA, HIGH-DOSE, TRIVALENT, PF 2014 135 complet ed [facility] PNEUMOCOCCAL CONJUGATE PCV 13 2014 133 complet ed Per [facility] INFLUENZA, SPLIT VIRUS, TRIVALENT, PRESERVATIVE 2012 141 complet ed [facility] INFLUENZA, SPLIT VIRUS, TRIVALENT, PRESERVATIVE 2011 141 complet ed [facility] INFLUENZA, SPLIT VIRUS, TRIVALENT, PF 2010 140 complet ed [facility] PNEUMOCOCCAL POLYSACCHARID E PPV23 2010 33 complet ed [facility] INFLUENZA, SPLIT VIRUS, TRIVALENT, PRESERVATIVE 2009 141 complet ed [facility] INFLUENZA, SPLIT VIRUS, TRIVALENT, PF 2008 140 complet ed [facility] INFLUENZA, SPLIT VIRUS, TRIVALENT, PRESERVATIVE 2007 141 complet ed [facility] INFLUENZA, SPLIT VIRUS, TRIVALENT, PRESERVATIVE 2006 141 complet ed [facility] INFLUENZA, SPLIT VIRUS, TRIVALENT, PRESERVATIVE 2005 141 complet ed [facility] PNEUMOCOCCAL POLYSACCHARID E PPV23 2005 33 complet ed MOW[facility]I TD (ADULT), 5 LF TETANUS TOXOID, PRESERVATIVE FREE, ADSORBED 2005 113 complet ed [facility] INFLUENZA, SPLIT VIRUS, TRIVALENT, PRESERVATIVE 2004 141 complet ed [facility] INFLUENZA, SPLIT VIRUS, TRIVALENT, PRESERVATIVE 2003 141 complet ed [facility] INFLUENZA, SPLIT VIRUS, TRIVALENT, PRESERVATIVE 2002 141 complet ed [facility] Results Combined list of recent chemistry, [...] Jan 23, 2023 02:00 PM Reporting Lab: [facility] [address] Performing Lab: [facility] [address] [place] ([facility]) BASIC METABOLIC PANEL+MG UREA NITROGEN [MASS/VOLUM E] IN SERUM OR PLASMA 35 mg/dL 8 - 26 01/23 H Specimen Type: PLASMA No comment entered. Ordering Provider: AILIN CHESTER Report Released Date/Time: Jan 23, 2023 02:00 PM Reporting Lab: [facility] [address] Performing Lab: [facility] [address] [place] ([facility]) BASIC METABOLIC PANEL+MG GLUCOSE [MASS/VOLUM E] IN SERUM OR PLASMA 239 mg/dL 70 - 100 01/23 H Specimen Type: PLASMA No comment entered. Ordering Provider: AILIN CHESTER Report Released Date/Time: Jan 23, 2023 02:00 PM Reporting Lab: [facility] [address] Performing Lab: [place] [address] [place] [address] ([facility]) BASIC METABOLIC PANEL+MG SODIUM [MOLES/VOLU ME] IN SERUM OR PLASMA 140 mmol/L 136 - 145 01/23 Specimen Type: PLASMA No comment entered. Ordering Provider: AILIN CHESTER Report Released Date/Time: Jan 23, 2023 02:00 PM Reporting Lab: [place] [id number] Performing Lab: [address] (CB) BASIC METABOLIC PANEL+MG POTASSIUM [MOLES/VOLU ME] IN SERUM OR PLASMA 5.1 mmol/L 3.5 - 5.1 01/23 Specimen Type: PLASMA No comment entered. Ordering Provider: AILIN CHESTER Report Released Date/Time: Jan 23, 2023 02:00 PM Reporting Lab: [facility] [address] Performing Lab: [facility] [id number] [place] [address] ([facility]) BASIC METABOLIC PANEL+MG CHLORIDE [MOLES/VOLU ME] IN SERUM OR PLASMA 109 mmol/L 98 - 107 01/23 H Specimen Type: PLASMA No comment entered. Ordering Provider: AILIN CHESTER Report Released Date/Time: Jan 23, 2023 02:00 PM Reporting Lab: [facility] [address] Performing Lab: [facility] [phone] [place] [address] ([facility]) BASIC METABOLIC PANEL+MG CARBON DIOXIDE, TOTAL [MOLES/VOLU ME] IN SERUM OR PLASMA 21 mmol/L 22 - 29 01/23 L Specimen Type: PLASMA No comment entered. Ordering Provider: AILIN CHESTER Report Released Date/Time: Jan 23, 2023 02:00 PM Reporting Lab: [facility] [address] Performing Lab: [place] [address] [place] ([facility]) BASIC METABOLIC PANEL+MG CALCIUM [MASS/VOLUM E] IN SERUM OR PLASMA 9.4 mg/dL 8.4 - 10.2 01/23 Specimen Type: PLASMA No comment entered. Ordering Provider: AILIN CHESTER Report Released Date/Time: Jan 23, 2023 02:00 PM Reporting Lab: [address] Performing Lab: [address] [place] [address] ([facility]) BASIC METABOLIC PANEL+MG MAGNESIUM [MASS/VOLUM E] IN SERUM OR PLASMA 1.7 mg/dL 1.6 - 2.6 01/23 Specimen Type: PLASMA No comment entered. Ordering Provider: AILIN CHESTER Report Released Date/Time: Jan 23, 2023 02:00 PM Reporting Lab: [place] [address] Performing Lab: [address] ([facility]) BASIC METABOLIC PANEL+MG ANION GAP IN SERUM OR PLASMA 10 mmol/L 5 - 15 01/23 Specimen Type: PLASMA No comment entered. Ordering Provider: AILIN CHESTER Report Released Date/Time: Jan 23, 2023 02:00 PM Reporting Lab: [place] [address] Performing Lab: [address] [place] [address] ([facility]) BASIC METABOLIC PANEL+MG GLOMERULAR FILTRATION RATE/1.73 SQ M.PREDICTED [VOLUME RATE/AREA] IN SERUM, PLASMA OR BLOOD BY CREATININE- BASED FORMULA (CKD-EPI 2020) 61 60 01/23 Specimen Type: PLASMA No comment entered. Ordering Provider: AILIN CHESTER Report Released Date/Time: Jan 23, 2023 02:00 PM Reporting Lab: [facility] [address] Performing Lab: [address] [place] ([facility]) BNP NATRIURETIC PEPTIDE B [MASS/VOLUM E] IN SERUM OR PLASMA 1549 pg/mL <99 - 99 01/23 H Specimen Type: PLASMA No comment entered. Ordering Provider: AILIN CHESTER Report Released Date/Time: Jan 23, 2023 02:00 PM Reporting Lab: [facility] [address] Performing Lab: [facility] [address] [place] ([facility]) MICROALBU MIN/CREAT ININE RATIO URINE CREATININE [MASS/VOLUM E] IN URINE 132.8 mg/dL 58.0 - 161.0 11/23 Specimen Type: URINE No comment entered. Ordering Provider: AILIN CHESTER Report Released Date/Time: Nov 23, 2022 11:58 AM Reporting Lab: [facility] [address] Performing Lab: [facility] [address] [place] ([facility]) MICROALBU MIN/CREAT ININE RATIO URINE MICROALBUMI N/CREATININ E [MASS RATIO] IN URINE 28.0 mg/g{c reat} 11/23 Specimen Type: URINE No comment entered. Ordering Provider: AILIN CHESTER Report Released Date/Time: Nov 23, 2022 11:58 AM Reporting Lab: [facility] [address] Performing Lab: [facility] [address] [place] ([facility]) MICROALBU MIN/CREAT ININE RATIO URINE MICROALBUMI N [MASS/VOLUM E] IN URINE 37.2 mg/L 11/23 H Specimen Type: URINE No comment entered. Ordering Provider: AILIN CHESTER Report Released Date/Time: Nov 23, 2022 11:58 AM Reporting Lab: [facility] [address] Performing Lab: [facility] [address] [place] ([facility]) CBC LEUKOCYTES [#/VOLUME] IN BLOOD BY AUTOMATED COUNT 10.80 10*3/u L 4.0 - 11.0 11/23 Specimen Type: BLOOD No comment entered. Ordering Provider: AILIN CHESTER Report Released Date/Time: Nov 23, 2022 11:58 AM Reporting Lab: [facility] [address] Performing Lab: [facility] [address] [place] ([facility]) CBC ERYTHROCYTE S [#/VOLUME] IN BLOOD BY AUTOMATED COUNT 3.87 10*6/u L 4.6 - 6.2 11/23 L Specimen Type: BLOOD No comment entered. Ordering Provider: AILIN CHESTER Report Released Date/Time: Nov 23, 2022 11:58 AM Reporting Lab: [facility] [address] Performing Lab: [place] [phone] [place] ([facility]) CBC HEMOGLOBIN [MASS/VOLUM E] IN BLOOD 12.1 g/dL 13.5 - 17.9 11/23 L Specimen Type: BLOOD No comment entered. Ordering Provider: AILIN CHESTER Report Released Date/Time: Nov 23, 2022 11:58 AM Reporting Lab: [facility] [address] Performing Lab: [address] [place] [address] ([facility]) CBC HEMATOCRIT [VOLUME FRACTION] OF BLOOD BY AUTOMATED COUNT 37.5 41 - 54 11/23 L Specimen Type: BLOOD No comment entered. Ordering Provider: AILIN CHESTER Report Released Date/Time: Nov 23, 2022 11:58 AM Reporting Lab: [facility] [address] Performing Lab: [facility] [address] [place] ([facility]) CBC MCV [ENTITIC VOLUME] BY AUTOMATED COUNT 96.9 fL 80 - 100 11/23 Specimen Type: BLOOD No comment entered. Ordering Provider: AILIN CHESTER Report Released Date/Time: Nov 23, 2022 11:58 AM Reporting Lab: [facility] [address] Performing Lab: [facility] [address] [place] ([facility]) CBC MCH [ENTITIC MASS] BY AUTOMATED COUNT 31.3 pg 27 - 33 11/23 Specimen Type: BLOOD No comment entered. Ordering Provider: AILIN CHESTER Report Released Date/Time: Nov 23, 2022 11:58 AM Reporting Lab: [facility] [address] Performing Lab: [facility] [address] [place] ([facility]) CBC MCHC [MASS/VOLUM E] BY AUTOMATED COUNT 32.3 g/dL 32.0 - 37.5 11/23 Specimen Type: BLOOD No comment entered. Ordering Provider: AILIN CHESTER Report Released Date/Time: Nov 23, 2022 11:58 AM Reporting Lab: [place] [address] Performing Lab: [address] ([facility]) CBC PLATELETS [#/VOLUME] IN BLOOD BY AUTOMATED COUNT 293 10*3/u L 150 - 400 11/23 Specimen Type: BLOOD No comment entered. Ordering Provider: AILIN CHESTER Report Released Date/Time: Nov 23, 2022 11:58 AM Reporting Lab: [address] Performing Lab: [address] ([facility]) CBC PLATELET MEAN VOLUME [ENTITIC VOLUME] IN BLOOD BY AUTOMATED COUNT 10.3 fL 7.4 - 10.4 11/23 Specimen Type: BLOOD No comment entered. Ordering Provider: AILIN CHESTER Report Released Date/Time: Nov 23, 2022 11:58 AM Reporting Lab: [place] [address] Performing Lab: [address] ([facility]) CBC ERYTHROCYTE DISTRIBUTIO N WIDTH [RATIO] BY AUTOMATED COUNT 13.2 11.5 - 14.5 11/23 Specimen Type: BLOOD No comment entered. Ordering Provider: AILIN CHESTER Report Released Date/Time: Nov 23, 2022 11:58 AM Reporting Lab: [facility] [address] Performing Lab: [address] ([facility]) COMPREHEN SIVE METABOLIC PANEL+MG CREATININE [MASS/VOLUM E] IN SERUM OR PLASMA 1.2 mg/dL 0.7 - 1.2 11/23 Specimen Type: PLASMA No comment entered. Ordering Provider: AILIN CHESTER Report Released Date/Time: Nov 23, 2022 11:58 AM Reporting Lab: [place] [id number] Performing Lab: [address] ([facility]) COMPREHEN SIVE METABOLIC PANEL+MG UREA NITROGEN [MASS/VOLUM E] IN SERUM OR PLASMA 34 mg/dL 8 - 26 11/23 H Specimen Type: PLASMA No comment entered. Ordering Provider: AILIN CHESTER Report Released Date/Time: Nov 23, 2022 11:58 AM Reporting Lab: [facility] [address] Performing Lab: [place] [phone] [place] ([facility]) COMPREHEN SIVE METABOLIC PANEL+MG GLUCOSE [MASS/VOLUM E] IN SERUM OR PLASMA 54 mg/dL 70 - 100 11/23 L Specimen Type: PLASMA No comment entered. Ordering Provider: AILIN CHESTER Report Released Date/Time: Nov 23, 2022 11:58 AM Reporting Lab: [address] Performing Lab: [address] [place] [address] ([facility]) COMPREHEN SIVE METABOLIC PANEL+MG SODIUM [MOLES/VOLU ME] IN SERUM OR PLASMA 143 mmol/L 136 - 145 11/23 Specimen Type: PLASMA No comment entered. Ordering Provider: AILIN CHESTER Report Released Date/Time: Nov 23, 2022 11:58 AM Reporting Lab: [facility] [address] Performing Lab: [facility] [phone] [place] [address] ([facility]) COMPREHEN SIVE METABOLIC PANEL+MG POTASSIUM [MOLES/VOLU ME] IN SERUM OR PLASMA 4.4 mmol/L 3.5 - 5.1 11/23 Specimen Type: PLASMA No comment entered. Ordering Provider: AILIN CHESTER Report Released Date/Time: Nov 23, 2022 11:58 AM Reporting Lab: [facility] [address] Performing Lab: [facility] [address] [place] [address] ([facility]) COMPREHEN SIVE METABOLIC PANEL+MG CHLORIDE [MOLES/VOLU ME] IN SERUM OR PLASMA 107 mmol/L 98 - 107 11/23 Specimen Type: PLASMA No comment entered. Ordering Provider: AILIN CHESTER Report Released Date/Time: Nov 23, 2022 11:58 AM Reporting Lab: [facility] [address] Performing Lab: [place] [address] [place] ([facility]) COMPREHEN SIVE METABOLIC PANEL+MG CARBON DIOXIDE, TOTAL [MOLES/VOLU ME] IN SERUM OR PLASMA 23 mmol/L 22 - 29 11/23 Specimen Type: PLASMA No comment entered. Ordering Provider: AILIN CHESTER Report Released Date/Time: Nov 23, 2022 11:58 AM Reporting Lab: [address] Performing Lab: [address] [place] [address] ([facility]) COMPREHEN SIVE METABOLIC PANEL+MG CALCIUM [MASS/VOLUM E] IN SERUM OR PLASMA 9.7 mg/dL 8.4 - 10.2 11/23 Specimen Type: PLASMA No comment entered. Ordering Provider: AILIN CHESTER Report Released Date/Time: Nov 23, 2022 11:58 AM Reporting Lab: [place] [address] Performing Lab: [address] [place] [address] ([facility]) COMPREHEN SIVE METABOLIC PANEL+MG PROTEIN [MASS/VOLUM E] IN SERUM OR PLASMA 7.2 g/dL 6.0 - 8.3 11/23 Specimen Type: PLASMA No comment entered. Ordering Provider: AILIN CHESTER Report Released Date/Time: Nov 23, 2022 11:58 AM Reporting Lab: [place] [phone] Performing Lab: [address] [place] [address] ([facility]) COMPREHEN SIVE METABOLIC PANEL+MG ALBUMIN [MASS/VOLUM E] IN SERUM OR PLASMA 4.1 g/dL 3.5 - 5.2 11/23 Specimen Type: PLASMA No comment entered. Ordering Provider: AILIN CHESTER Report Released Date/Time: Nov 23, 2022 11:58 AM Reporting Lab: [place] [phone] Performing Lab: [place] [phone] [place] ([facility]) COMPREHEN SIVE METABOLIC PANEL+MG BILIRUBIN.T OTAL [MASS/VOLUM E] IN SERUM OR PLASMA 0.5 mg/dL 0.2 - 1.2 11/23 Specimen Type: PLASMA No comment entered. Ordering Provider: AILIN CHESTER Report Released Date/Time: Nov 23, 2022 11:58 AM Reporting Lab: [facility] [address] Performing Lab: [address] [place] ([facility]) COMPREHEN SIVE METABOLIC PANEL+MG MAGNESIUM [MASS/VOLUM E] IN SERUM OR PLASMA 1.4 mg/dL 1.6 - 2.6 11/23 L Specimen Type: PLASMA No comment entered. Ordering Provider: AILIN CHESTER Report Released Date/Time: Nov 23, 2022 11:58 AM Reporting Lab: [facility] [address] Performing Lab: [facility] [phone] [place] [address] ([facility]) COMPREHEN SIVE METABOLIC PANEL+MG ANION GAP IN SERUM OR PLASMA 13 mmol/L 5 - 15 11/23 Specimen Type: PLASMA No comment entered. Ordering Provider: AILIN CHESTER Report Released Date/Time: Nov 23, 2022 11:58 AM Reporting Lab: [facility] [address] Performing Lab: [facility] [address] [place] ([facility]) COMPREHEN SIVE METABOLIC PANEL+MG ALKALINE PHOSPHATASE [ENZYMATIC ACTIVITY/VO LUME] IN SERUM OR PLASMA 87 U/L 40 - 150 11/23 Specimen Type: PLASMA No comment entered. Ordering Provider: AILIN CHESTER Report Released Date/Time: Nov 23, 2022 11:58 AM Reporting Lab: [facility] [address] Performing Lab: [facility] [address] [place] ([facility]) COMPREHEN SIVE METABOLIC PANEL+MG ALANINE AMINOTRANSF ERASE [ENZYMATIC ACTIVITY/VO LUME] IN SERUM OR PLASMA 28 U/L 11/23 Specimen Type: PLASMA No comment entered. Ordering Provider: AILIN CHESTER Report Released Date/Time: Nov 23, 2022 11:58 AM Reporting Lab: [facility] [address] Performing Lab: [facility] [address] [place] ([facility]) COMPREHEN SIVE METABOLIC PANEL+MG ASPARTATE AMINOTRANSF ERASE [ENZYMATIC ACTIVITY/VO LUME] IN SERUM OR PLASMA 33 U/L 11/23 Specimen Type: PLASMA No comment entered. Ordering Provider: AILIN CHESTER Report Released Date/Time: Nov 23, 2022 11:58 AM Reporting Lab: [facility] [address] Performing Lab: [facility] [address] [place] ([facility]) COMPREHEN SIVE METABOLIC PANEL+MG GLOMERULAR FILTRATION RATE/1.73 SQ M.PREDICTED [VOLUME RATE/AREA] IN SERUM, PLASMA OR BLOOD BY CREATININE- BASED FORMULA (CKD-EPI 2020) 61 11/23 Specimen Type: PLASMA No comment entered. Ordering Provider: AILIN CHESTER Report Released Date/Time: Nov 23, 2022 11:58 AM Reporting Lab: [facility] [address] Performing Lab: [facility] [address] [place] ([facility]) HEMOGLOBI N A1C HEMOGLOBIN A1C/HEMOGLO [...] Nov 23, 2022 11:58 AM Reporting Lab: [facility] [address] Performing Lab: [facility] [address] [place] ([facility]) LIPID PANEL,NON -FASTING CHOLESTEROL [MASS/VOLUM E] IN SERUM OR PLASMA 130 mg/dL 11/23 Specimen Type: PLASMA No comment entered. Ordering Provider: AILIN CHESTER Report Released Date/Time: Nov 23, 2022 11:58 AM Reporting Lab: [facility] [address] Performing Lab: [facility] [address] [place] ([facility]) LIPID PANEL,NON -FASTING CHOLESTEROL IN HDL [MASS/VOLUM E] IN SERUM OR PLASMA 39 mg/dL 11/23 L Specimen Type: PLASMA No comment entered. Ordering Provider: AILIN CHESTER Report Released Date/Time: Nov 23, 2022 11:58 AM Reporting Lab: [facility] [address] Performing Lab: [facility] [address] [place] ([facility]) LIPID PANEL,NON -FASTING CHOLESTEROL IN LDL [MASS/VOLUM E] IN SERUM OR PLASMA BY CALCULATION 73 mg/dL 11/23 Specimen Type: PLASMA No comment entered. Ordering Provider: AILIN CHESTER Report Released Date/Time: Nov 23, 2022 11:58 AM Reporting Lab: [facility] [address] Performing Lab: [facility] [address] [place] ([facility]) LIPID PANEL,NON -FASTING CHOLESTEROL IN VLDL [MASS/VOLUM E] IN SERUM OR PLASMA BY CALCULATION 18 mg/dL 11/23 Specimen Type: PLASMA No comment entered. Ordering Provider: AILIN CHESTER Report Released Date/Time: Nov 23, 2022 11:58 AM Reporting Lab: [facility] [id number] Performing Lab: [facility] [id number] [place] ([facility]) LIPID PANEL,NON -FASTING CHOLESTEROL NON HDL [MASS/VOLUM E] IN SERUM OR PLASMA 91 mg/dL 11/23 Specimen Type: PLASMA No comment entered. Ordering Provider: AILIN CHESTER Report Released Date/Time: Nov 23, 2022 11:58 AM Reporting Lab: [facility] [id number] Performing Lab: [facility] [address] [place] ([facility]) LIPID PANEL,NON -FASTING TRIGLYCERID E [MASS/VOLUM E] IN SERUM OR PLASMA 92 mg/dL 11/23 Specimen Type: PLASMA No comment entered. Ordering Provider: AILIN CHESTER Report Released Date/Time: Nov 23, 2022 11:58 AM Reporting Lab: [facility] [id number] Performing Lab: [facility] [address] [place] ([facility] TSH W/REFLEX TO FREE T4 THYROTROPIN [UNITS/VOLU ME] IN SERUM OR PLASMA 4.59 u[IU]/ mL 0.35 - 4.94 11/23 Specimen Type: PLASMA No comment entered. Ordering Provider: AILIN CHESTER Report Released Date/Time: Nov 23, 2022 11:58 AM Reporting Lab: [facility] [id number] Performing Lab: [facility] [address] [place] ([facility]) Vital Signs Combined list of [...] months. 2) Encounters from the Department of [facility] facilities going back up to 280 months. Location Location Details Encounter Type Encounter Number Reason For Visit Attending Provider ADM Date DC Date Status Disposition Source [facility] Outpatient Encounter [id number] 07/[facility] Outpatient Encounter [id number] 08/21 [facility] Outpatient Encounter [id number] 09/20 [facility] Outpatient Encounter [id number] 11/11 [facility] Outpatient Encounter [id number] ZARI POWER 11/16 [facility] Outpatient Encounter [id number] 11/21 [facility] ([facility]) OFFICE O/P EST MOD 30-39 MIN [id number] Diagnos is: ICD-10- CM Z00.00 Encntr for general adult medical exam w/o abnorma l finding s
CANDELARIO CHESTER 11/23 [facility] ([facility]) [place] ([facility]) GAIT TRAINING THERAPY [id number] Diagnos is: ICD-10- CM R26.89 Other abnorma lities of gait and mobilit y
OMAYRA JAMESON V 11/23 [facility] ([facility]) [place] [facility] Outpatient Encounter [id number] SA TRINO RA R 12/11 [place] [facility] [place] [facility] Outpatient Encounter [id number] 12/25 [place] [facility] [place] [facility] Outpatient Encounter [id number] SA TRINO RA R 12/28 [place] [facility] [place] [facility] Outpatient Encounter [id number] 01/05 [place] [facility] [place] [facility] Outpatient Encounter [id number] 01/11 [place] [facility] [place] [facility] Outpatient Encounter [id number] 01/16 [facility] [facility] OFFICE O/P EST HI 40-54 MIN [id number] Diagnos is: ICD-10- CM I50.9 Heart failure , unspeci fied
CANDELARIO CHESTER 01/23 [facility] ([facility] [place] [facility] Outpatient Encounter [id number] Marcus POTTS I 01/24 [place] [facility] [place] [facility] Outpatient Encounter [id number] Danica TORRE 02/05 [place] [facility] [place] [facility] Outpatient Encounter [id number] 02/09 [place] [facility] [place] [facility] Outpatient Encounter [id number] Danica TORRE 02/09 [place] [facility] [place] [facility] Outpatient Encounter [id number] 02/14 [place] [facility] [place] [facility] Outpatient Encounter [id number] 02/15 [place] [facility] [place] [facility] Outpatient Encounter [id number] 02/19 [place] [facility] [place] [facility] Outpatient Encounter [id number] 02/20 [place] [facility] [place] [facility] Outpatient Encounter [id number] 02/20 [place] [facility] [place] [facility] Outpatient Encounter [id number] 02/20 [place] [facility] [place] [facility] Outpatient Encounter [id number] 02/20 [place] [facility] [place] [facility] Outpatient Encounter [id number] 02/21 [place] [facility] [place] [facility] QNHP OL DIG ASSMT&MGMT 5-10 [id number] Diagnos is: ICD-10- CM E11.9 Type 2 diabete s mellitu s without complic ations< br/> HARDER,SIVA LY 02/22 [place] [facility] PHONE CALL 11-20 MIN [id number] Diagnos is: ICD-10- CM I50.9 Heart failure , unspeci fied
JERMAINE ALCANTAR ANDMARIA INES Frey 02/23 [facility] ([facility] [place] [facility] Outpatient Encounter [id number] 02/26 [place] [facility] [place] [facility] Outpatient Encounter [id number] 03/01 [place] [facility] [place] [facility] Outpatient Encounter [id number] 03/05 [place] [facility] [place] [facility] Outpatient Encounter [id number] SA RA Sandra JAMESON 03/09 [place] [facility] [place] [facility] Outpatient Encounter [id number] 03/14 [place] [facility] [place] [facility] Outpatient Encounter [id number] SA JAMARI JAMESON R 04/12 [facility] [place] [facility] Outpatient Encounter [id number] TRINO R 04/16 [facility] [place] [facility] Outpatient Encounter [id number] TRINO R 05/01 [facility] [place] [facility] Outpatient Encounter [id number] 07/11 [facility] [place] [facility] Outpatient Encounter [id number] [facility] [place] [facility] Outpatient Encounter [id number] 07/12 [facility] PRO PHONE CALL 5-10 MIN [id number] Diagnos is: ICD-10- CM 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
VIV BARFIELD 07/19 [facility] HEARING AID REPAIR/MOD IFYING [id number] Diagnos is: ICD-10- CM 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
CARY CORCORAN 08/09 [facility] HEARING AID FITTING/CH ECKING [id number] Diagnos is: ICD-10- CM 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
Sy MAKI 09/17 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 Social History Type Response Date Comment Sourc e Tobacco smoking status NHIS VA-TOBACCO FORMER USER 11/08/2023 [place] ([facility]) History of tobacco use VA-TOBACCO QUIT 1 5 YRS OR MORE 11/08/2023 [place] ([facility]) History of tobacco use VA-TOBACCO QUIT 1 5 YRS OR MORE 11/23/2022 [place] ([facility]) History of tobacco use VA-TOBACCO FORMER USER 11/29/2021 [place] ([facility]) History of tobacco use VA-TOBACCO FORMER USER 10/21/2020 [place] ([facility]) Plan of Care List of future care activities from Department of Veterans Affairs facilities. Additional future care activities may be listed in the Assessment and Plan section. Date/Time Care Activity Care Activity Detail Facili ty 12/18/2023 AMBULATORY - REHAB MEDICINE AMBULATORY - REHAB MEDICINE [place] ([facility]) 11/08/2023 Consult Order REHAB OUTPT [place] MOBILITY Cons Security Coordinator's Choice [place] ([facility])
--- OUTSIDE RECORDS SUMMARY | 2023-11-28 09:10 | XMS_ITS ---
Author Organization [facility] Address [address] [place] [address] Care Team Providers Care Professional Athlete Name Role Phone Unavailable Unavailable Unavailable Surgery Details Not on file Complications Check Surgery Details section. Procedure Estimated Blood Loss Check Surgery Details section. Procedure Findings Check Surgery Details section. Procedure Specimens Taken Check Surgery Details section.
--- OUTSIDE RECORDS SUMMARY | 2023-11-28 09:10 | XMS_ITS | Clinical Summary ---
Author Organization [employer] [facility] [employer] [facility] Address [place], [place] [address] Care Team Providers Care Chargeback Analyst Name Role Phone VotelMelquiades MD Primary Care Provider + Nurses, Advanced Heart Failure Unavailable + Shade Manuel MD Unavailable [phone] Allergies No known active allergies Medications Medication Sig Dispensed Refills Start Date End Date Status blood-glucose meterIndications: Type 2 diabetes mellitus with complication (HC) Ascensia Glucometer, Dispense meter, test strips, lancets covered by pt ins. Test 3 times daily 1 Device 07/09/2020 Active Insulin [place], Disposable, (Novofine 32) 32 gauge x 1/4Indications:2 [...] be used to read blood sugars, follow oiler and greaser directions. Change each sensor every 10 days [...] mg sublingual tabletIndications :Coronary artery disease involving koyuk heart without angina pectoris, unspecified vessel or [...] call MD. 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 11/25/2019 HTN (hypertension) 10/28/2015 Hyperlipidemia LDL goal <70 10/28/2015 Adenomatous colon polyp 04/13/2015 Overview: Colonoscopy 04/2015 polyps repeat in 5 years Colonoscopy 03/2020 polyps, repeat in 5 years Background diabetic retinopathy(362.01) 07/10/19 08 Unspecified hearing loss 07/10/2007 Coronary atherosclerosis of unspecified type of vessel, koyuk or graft Overview: 4 vessel CABG 2001 Lexiscan only for cardiac evaluation - no treadmill Other ill-defined and unknow n causes of morbidity and mortality Impotence of organic origin Resolved Problems Problem Noted Date Diagnosed Date Resolved Date Type 2 diabetes mellitus with complication 11/16/2017 12/22/2022 Heart disease, unspecified 0 07/10/2007 Encounters Date Type Department Care Team Description 11/26/2023 12:57 PM CDT - 11/26/2023 11:59 PM CDT Hospital Encounter [facility] [address] [place] [address] Votel, MD Edgar Cleary Rebecca L, PT 11/26/2023 Travel 11/22/2023 1:26 PM CDT - 11/22/2023 11:59 PM CDT Hospital Encounter [facility] [address] [place] [address] Melquiades Man MD Manuell, Kayla, PT 11/22/2023 Travel 11/22/2023 Refill [facility] [address] [place] [address] Melquiades Man MD Refill Request (Needs alternative sent in for ~ Insulin Aspart Flexpen Inj 3ml ) 11/20/2023 1:38 PM CDT - 11/20/2023 11:59 PM CDT Hospital Encounter [facility] [address] [place] [address] Votel, MD Edgar Cleary Rebecca L, PT 11/20/2023 Travel 11/19/2023 Telephone [facility] [address] [place] [address] Magda, Melquiades Gray MD Concerns 11/14/2023 Telephone [facility] [address] [place] [address] Melquiades Man MD Prior Authorization (insulin aspart, U-100, (NOVOLOG FLEXPEN) 100 unit/mL (3 mL) pen - APPROVED 11/08/23- until further notice) 11/13/2023 2:00 PM CDT Patient Outreach [address] [address] Priyanka Hummel ecommerce marketing manager (Review Dexcom report/insulin management) 11/12/2023 12:55 PM CDT - 11/12/2023 11:59 PM CDT Hospital Encounter [facility] [address] [place] [address] Votel, MD Edgar Cleary Rebecca L, PT 11/12/2023 Travel 11/07/2023 Telephone [facility] [address] [place] [address] Melquiades Man MD INSULIN ASPART FLEXPEN 11/06/2023 10:25 AM CDT Office Visit [facility] [address] [place] [address] Melquiades Man MD Medicare ANNUAL (subsequent) Visit (83 year old male); Medication Management (insulin) 11/06/2023 Telephone [facility] [address] [place] [address] Votel, Melquiades Gray MD Form 11/05/2023 12:49 PM CDT - 11/05/2023 11:59 PM CDT Hospital Encounter [facility] ? [facility] [address] [place] [address] Votel, MD Edgar Cleary Rebecca L, PT 11/05/2023 Travel 11/01/2023 1:00 PM CDT - 11/01/2023 11:59 PM CDT Hospital Encounter [facility] ? [facility] [address], [place] [address] Votedebbie, MD Edgar Cleary Rebecca L, PT 11/01/2023 Travel 10/31/2023 Telephone [facility] [address] [place] [address] Melquiades Man MD 10/30/2023 10:00 AM CDT Patient Outreach [address] [phone] Priyanka Hummel ecommerce marketing manager (Insulin management/education ) 10/29/2023 12:25 PM CDT - 10/29/2023 11:59 PM CDT Hospital Encounter [facility] [address] [place] [address] VotelMelquiades MD Oswald, Rebecca L, PT 10/29/2023 Travel 10/25/2023 1:15 PM CDT - 10/25/2023 11:59 PM CDT Hospital Encounter [facility] [address], [place] [address] Votel, MD Edgar Cleary Rebecca L, PT 10/25/2023 Travel 10/23/2023 Telephone [facility] [address] [place] [address] VoteMelquiades lewis MD 10/22/2023 1:21 PM CDT - 10/22/2023 11:59 PM CDT Hospital Encounter [facility] [address] [place] [address] Votel, MD Edgar Cleary Rebecca L, PT 10/22/2023 Travel 10/18/2023 1:45 PM CDT - 10/18/2023 11:59 PM CDT Hospital Encounter [facility] [address] [place] [address] GunnarteMelquiades lewis MD Manuell, Kayla, PT 10/18/2023 Travel 10/17/2023 Telephone [facility] [address] [place] [address] VoteMelquiades lewis MD Outside Order (regarding frequency of home health visits) 10/15/2023 12:55 PM CDT - 10/15/2023 11:59 PM CDT Hospital Encounter [facility] [address] [place] [address] Melquiades Man MD Tonsfeldt, Isabelle, PT 10/15/2023 Travel 10/11/2023 12:51 PM CDT - 10/11/2023 11:59 PM CDT Hospital Encounter [facility] ? [facility] [address] [place] [address] Melquiades Man MD Tonsfeldt, Isabelle, PT 10/11/2023 Travel 10/11/2023 Telephone [facility] [address] [place] [address] Melquiades Man MD 10/09/2023 Telephone [facility] [address] [place] [address] VoteMelquiades lewis MD Form 10/05/2023 Transcribe Orders [address] [phone] Isatu Hanley MD 10/04/2023 1:42 PM CDT - 10/04/2023 11:59 PM CDT Hospital [facility] [address] [place] [address] VoteMelquiades lewis MD Tonsfeldt, Isabelle, PT 10/04/2023 9:35 AM CDT Office Visit [facility] [address] [place] [address] Rachel Sauceda, DO Diabetes 10/04/2023 Telephone [facility] [address] [place] [address] Rachel Sauceda, DO Medication Management 10/04/2023 Travel 10/03/2023 Refill [facility] [address] [place] [phone] Shade Manuel MD Refill Request ([facility]) 10/01/2023 12:58 PM CDT - 10/01/2023 11:59 PM CDT Hospital [facility] [address] [place] [address] Melquiades Man MD Tonsfeldt, Isabelle, PT 10/01/2023 Travel 09/30/2023 Refill [facility] [address] [place] [address] Shade Manuel MD Refill Request (Dapagliflozin Propanediol) 09/27/2023 12:56 PM CDT - 09/27/2023 11:59 PM CDT Hospital [facility] [address] [place] [address] Melquiades Man MD Tonsfeldt, Isabelle, PT 09/27/2023 Travel 09/24/2023 12:57 PM CDT - 09/24/2023 11:59 PM CDT Hospital Encounter [facility] ? [facility] [address] [place] [address] Melquiades Man MD Tonsfeldt, Isabelle, PT 09/24/2023 Travel 09/20/2023 11:45 AM CDT - 09/20/2023 11:59 PM CDT Hospital Encounter [facility] [address] [place] [address] Melquiades Man MD Tonsfeldt, Isabelle, PT 09/20/2023 Travel 09/19/2023 Telephone [facility] [address] [place] [address] Melquiades Man MD 09/17/2023 Telephone [facility] [address] [place] [address] Melquiades Man MD orders (wound care 2 times per week) 09/13/2023 1:00 PM CDT - 09/13/2023 11:59 PM CDT Hospital Encounter [facility] [address] [place] [place] [address] Votel, MD Lesly Cleary Isabelle, PT 09/13/2023 Travel 09/10/2023 12:53 PM CDT - 09/10/2023 11:59 PM CDT Hospital Encounter [facility] ? [facility] [address] [place] [place] [address] Votel, MD Lesly Cleary Isabelle, PT 09/10/2023 Travel 09/06/2023 9:27 AM CDT - 09/06/2023 11:59 PM CDT Hospital Encounter [facility] ? [facility] [address] [facility] [place] [address] Votel, MD Lesly Cleary Isabelle, PT 09/06/2023 Travel 08/31/[address] [place] [address] Votel, Melquiades Gray MD ORDERS from Last 3 Months Immunizations Name Administration Dates Next Due COVID-19 vaccine (Moderna 100mcg/0.5mL) PF, MDV 03/09/2021 COVID-19 vaccine (Moderna 50 mcg/0.5mL) 12YO+ BIVALENT PF, MDV 03/29/2022 COVID-19 vaccine (Pfizer-Bio NTech 30mcg/0.3mL) PF, MDV 03/09/2021,07/24/2020,07/03/2020 COVID-19 vaccine Comirnaty (Appies-BioNTech 30mcg/0.3mL) 12YO+ [id number] Formula PF, SDV, PFS 03/05/2023 Influenza Virus, [...] Brother kidney problems Heart Disease Father 1st ND at 65 d 77 yo CHF Diabetes Mother Heart Disease Mother d 64 yo ND Genetic Other There is a posi tive [...] CDT Respiratory Rate 24 05/03/2023 7:04 AM RAILROAD DETECTIVE Oxygen Saturation 99% 11/06/2023 10: 30 AM CDT Inhaled Oxygen Concentration - - Weight 71.7 kg (158 lb) 10/04/2023 9:26 AM CDT patient reported Height 175.3 cm (5' 9.02) 07/27/2023 1 1:51 AM CDT Body Mass Index 23.32 07/27/2023 11:51 AM CDT Plan of Treatment Upcoming Encounters Date Type Department Care Team (Late st Contact Info) Description 11/29/2023 1:00 PM CDT Appointment [facility] [address] [place] [address] Farheen Puentes, PT [address] [place] [address] 12/03/2023 1:45 PM CDT Appointment [facility] [address] [place] [address] Farheen Puentes, PT [address] [address] 12/06/2023 1:00 PM CDT Appointment [facility] [address], [place] [address] Farheen Puentes, PT [address] [place] [address] 12/10/2023 1:45 PM CDT [facility] [address] [place] [address] Farheen Puentes, PT [address] [place] [address] 12/13/2023 1:45 PM CDT [facility] [address] [place] [address] Farheen Puentes, PT [address], [place] [address] 12/17/2023 1:00 PM CDT [facility] [address] [place] [address] Farheen Puentes, PT [address], [place] [address] 12/20/2023 11:00 AM CDT Patient Outreach [address] [address] Priyanka Hummel, RN [address] [place] [address] 12/20/2023 1:00 PM CDT Appointment [facility] [address] [place] [address] Farheen Puentes, PT [address], [place] [address] 12/24/2023 1:00 PM CDT Appointment [facility] [address] [place] [address] Farheen Puentes, PT [address] [place] [address] 12/27/2023 1:00 PM CDT Appointment [facility] [address] [place] [address] Farheen Puentes, PT [address] [place] [address] 12/31/2023 1:00 PM CDT Appointment [facility] [address] [place] [address] Jasmin Hernández, PT [address] [place] [address] 01/01/2024 10:50 AM CDT Office Visit [facility] [address] [place] [address] Melquiades Man MD [address] [place] [address] 01/02/2024 1:45 PM CDT Appointment [facility] [address] [place] [address] Farheen Puentes, PT [address] [place] [address] 01/08/2024 1:30 PM CDT Office Visit [facility] [place]izzie Mackay [address] [place] [address] Shade Manuel MD [address] [facility] [address] [place] [address] Health Maintenance Due Date Last Done Comments [...] 11.0 thou/cu mm 11/06/2023 12:[address] [facility] RED BLOOD COUNT 3.98(L) 4.30 - 5.90 mil/cu mm 11/06/2023 12:[address] [facility] HEMOGLOBIN 12.0(L) 13.5 - 17.5 g/dL 11/06/2023 12:[address] [facility] HEMATOCRIT 36.7(L) 37.0 - 53.0 % 11/06/2023 12:[address] [facility] MCV 92 80 - 100 fL 11/06/2023 12:[address] [facility] MCH 30.2 26.0 - 34.0 pg 11/06/2023 12:[address] [facility] MCHC 32.7 32.0 - 36.0 g/dL 11/06/2023 12:[address] [facility] RDW 15.9(H) 11.5 - 15.5 % 11/06/2023 12:[address] [facility] PLATELET COUNT 273 140 - 440 thou/cu mm 11/06/2023 12:[address] [facility] MPV 9.6 6.5 - 11.0 fL 11/06/2023 12:[address] [facility] % NEUT 69.0 % 11/06/2023 12:[address] [facility] % LYMPH 18.8 % 11/06/2023 12:[address] [facility] % MONO 7.6 % 11/06/2023 12:[address] [facility] % EOS 3.8 % 11/06/2023 12:[address] [facility] % BASO 0.8 % 11/06/2023 12:[address] [facility] ABSOLUTE NEUTROPHILS 5.9 1.7 - 7.0 thou/cu mm 11/06/2023 12:[address] [facility] ABSOLUTE LYMPHOCYTES 1.6 0.9 - 2.9 thou/cu mm 11/06/2023 12:[address] [facility] ABSOLUTE MONOCYTES 0.6 <0.9 thou/cu mm 11/06/2023 12:[address] [facility] ABSOLUTE EOSINOPHILS 0.3 <0.5 thou/cu mm 11/06/2023 12:[address] [facility] ABSOLUTE BASOPHILS 0.1 <0.3 thou/cu mm 11/06/2023 12:[address] [facility] Blood BLOOD SPECIMEN / Unknown Butterfly / Unknown 11/06/2023 12:33 PM CDT 11/06/2023 12:37 PM CDT Melquiades Man MD HEMATOLOGY Performing Organization Address City/State/[facility] Co de Phone Number [facility] [address] [place] [address], * LIPID PANEL W REFLEX MEASURED LDL (11/06/2023 12:33 PM CDT) CHOLESTEROL,TOTAL 156 100 - 199 mg/dL 11/07/2023 1:57 AM CDT [facility] Comment: Cholesterol, Total Reference Ranges Desirable <200 mg/dL Borderline 200-239 mg/dL High >=240 mg/dL TRIGLYCERIDES 124 <150 mg/dL 11/07/2023 1:57 AM CDT [facility] HDL CHOLESTEROL 56 >40 mg/dL 1:57 AM CDT [facility] NON-HDL CHOLESTEROL 100 <145 mg/dl 11/07/2023 1:57 AM CDT [facility] CHOL/HDL RATIO 2.79 <4.50 11/07/2023 1:57 AM CDT [facility] LDL CHOLESTEROL 75 <=130 mg/dL 11/07/2023 1:57 AM CDT [facility] VLDL CHOLESTEROL 25 <=30 mg/dL 11/07/2023 1:57 AM CDT [facility] PROVIDER ORDERED STATUS RANDOM 11/07/2023 1:57 AM CDT [facility] Blood BLOOD SPECIMEN / Unknown Butterfly / Unknown 11/06/2023 12:33 PM CDT 11/06/2023 12:37 PM CDT Melquiades Man MD CHEMISTRY Performing Organization Address [facility] Co de Phone Number [facility] [address] [place] [id number], [place] * TSH (11/06/2023 12:33 PM CDT) TSH 2.24 0.27 - 4.20 uIU/mL 11/07/2023 1:57 AM CDT [facility] Blood BLOOD SPECIMEN / Unknown Butterfly / Unknown 11/06/2023 12:33 PM CDT 11/06/2023 12:37 PM CDT Narrative [facility] - 11/07/2023 1:57 AM CDT In Adults, TSH values between 5.00 and 10.00 uIU/ml do not necessarily indicate the presence of Hypothyroidism. Correlation with clinical findings such as presence of goiter and/or Thyroperoxidase (TPO) Antibody may be helpful. For more information please refer to RONNIE 2004; 291: 228-238. Melquiades Man MD CHEMISTRY Performing Organization Address [facility]/ZIP Co de Phone Number [facility] [address] [place] [id number], [place] * ALT (SGPT) (11/06/2023 12:33 PM CDT) ALT (SGPT) 21 10 - 50 IU/L 11/07/2023 1:57 AM CDT [facility] Blood BLOOD SPECIMEN / Unknown Butterfly / Unknown 11/06/2023 12:33 PM CDT 11/06/2023 12:37 PM CDT Melquiades Man MD CHEMISTRY [facility] [address] [place] [address], * (ABNORMAL) BASIC METABOLIC PANEL (11/06/2023 12:33 PM CDT) Pathologist [facility] SODIUM 139 136 - 145 mmol/L 11/07/2023 1:57 AM T [facility] POTASSIUM 4.8 3.5 - 5.1 mmol/L 11/07/2023 1:57 AM T [facility] CHLORIDE 102 98 - 107 mmol/L 11/07/2023 1:57 AM [facility] CO2,TOTAL 23 22 - 29 mmol/L 11/07/2023 1:57 AM [facility] ANION GAP 14 5 - 18 11/07/2023 1:57 AM [facility] GLUCOSE 137(H) 70 - 99 mg/dL 11/07/2023 1:57 AM T [facility] CALCIUM 10.0 8.8 - 10.2 mg/dL 11/07/2023 1:57 AM [facility] BUN 42(H) 8 - 23 mg/dL 11/07/2023 1:57 AM [facility] CREATININE 1.65(H) 0.70 - 1.20 mg/dL 11/07/2023 1:57 AM [facility] BUN/CREAT RATIO 25(H) 10 - 20 1:57 AM CDT [facility] eGFR 41(L) >90 mL/min/1.7 3m2 11/07/2023 1:57 AM CDT [facility] Comment:As of 2021, eG FR [...] 12:37 PM CDT Melquiades Man MD CHEMISTRY [facility] [address] [place] [address], * (ABNORMAL) HEMOGLOBIN A1C MONITORING (POCT) (10/04/2023 9:44 AM CDT) Pathologist [facility] HEMOGLOBIN A1C MONITORING (POCT) 11.6(H) <=6.4 % 10/04/2023 9:[address] [facility] Blood BLOOD SPECIMEN / Unknown Venipuncture / Unknown 10/04/2023 9:44 AM CDT 10/04/2023 9:[address] [facility] - 10/04/2023 9:53 AM CDT [...] Anemias, Splenectomy ? Rachel Sauceda DO CHEMISTRY 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, receiving hemodialysis, has chronic open wounds/skin damage, has long-term percutaneous indwelling medical devices Exclusions for nares collection (if <12 months since positive culture) include all of the previous exclusions plus patients on antibiotics 7 days prior to collection 03/08/2023 05/31/2023 MDRO-GNB 04/26/2023 04/26/2023 Advance Directives Documents on File Type Date Recorded Patient 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
--- OUTSIDE RECORDS SUMMARY | 2023-11-28 09:10 | XMS_ITS | Clinical Summary ---
Author Organization [facility] Address [address] [place] [address] Care Team Providers Care Bartender Server Name Role Phone Elsewhere, Pcp Primary Care Provider Unavailabl e Source Comments Patient records contain information from all sites at [facility]. For routine questions regarding patient records, call [phone] during business hours, M-F 8:00 AM - 5:00 PM Central Time. Record requests for emergency care only can be directed to [phone] at any time.[facility] Allergies No known active allergies Medications [...] Heel: Area continues to improve. Wound measures 1.8llS6cm. Edges well defined, attached and 100% re-epithelialized [...] will follow up with his PCP in [place] [facility] (Current) Anticoagulant Treatment 08/2022 Overview: On apixaban [...] standard wheelchair Mr. Woods was admitted to [facility] April 10 following BK right [...] T4 was 0.92 in April 2023. resident care manager rn confirmed levothyroxine is given every morning (6am) without other medications. Therefore, we will increase levothyroxine 50mcg to 75mcg and rechecked TSH in 6 weeks. Nursing instructed to continue monitoring for symptoms of hypothyroidism and contact [place] provider if any concerns. Amputation Toe Status [...] and palpitation. 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 Atherosclerosis Of [place] Ar teries Of Other Extremities With Ulceration [...] 05/24/2023 Overview: Onychomycosis of toenails; Original Code: [id number] Original Codesystem: SNOMED CT Classification: Medical Confirmation [...] Comments Blood Pressure 107/66 06/18/2023 1:10 PM BEHAVIORAL ASSISTANT Pulse 78 06/18/2023 1:10 PM BEHAVIORAL ASSISTANT Temperature 36.6 ??C (97.8 ??F) 06/18/2023 1:10 PM CS T Respiratory Rate 16 06/18/2023 1:10 PM BEHAVIORAL ASSISTANT Oxygen Saturation 95% 06/18/2023 1:10 PM BEHAVIORAL ASSISTANT Inhaled Oxygen Concentration - - Weight 75.8 kg (167 lb) 06/18/2023 1:10 PM BEHAVIORAL ASSISTANT Height 175.3 cm (5' 9) 04/12/2023 3:21 PM BEHAVIORAL ASSISTANT Body Mass Index 24.66 04/12/2023 3:21 PM BEHAVIORAL ASSISTANT Plan of Treatment Health Maintenance Due [...] Advance Directives For more information, please contact: [phone] * DNR/DNI (Latest Code Status on File) Date Activated Date Inactivated Comments 05/24/2023 6:14 PM * DNR/DNI Date Activated Date Inactivated Comments 04/12/2023 4:11 PM 04/16/2023 7:15 AM Care Teams Bartender Server Relationship Specialty Start Date End Date Elsewhere, Pcp PCP - General Internal Medicine 08/28/23
--- OUTSIDE RECORDS SUMMARY | 2023-11-28 09:10 | XMS_ITS | Referral Summary ---
Author Organization [facility] Address [address] [place] [address] Care Team Providers Care Linemarker Name Role Phone Elsewhere, Pcp Primary Care Provider Unavailabl e Source Comments Patient records contain information from all sites at [facility]. For routine questions regarding patient records, call [phone] during business hours, M-F 8:00 AM - 5:00 PM Central Time. Record requests for emergency care only can be directed to [phone] at any time.[facility] Allergies No known active allergies Medications Medication [...] Heel: Area continues to improve. Wound measures [id number]. Edges well defined, attached and 100% re-epithelialized [...] will follow up with his PCP in [facility] (Current) Anticoagulant Treatment 08/2022 Overview: On apixaban [...] [facility] April 10 following BK right lower extremity. [...] T4 was 0.92 in April 2023. resident hall director confirmed levothyroxine is given every morning (6am) without other medications. Therefore, we will increase levothyroxine 50mcg to 75mcg and rechecked TSH in 6 weeks. Nursing instructed to continue monitoring for symptoms of hypothyroidism and contact [place] provider if any concerns. Amputation Toe Status [...] and palpitation. 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 [...] 05/24/2023 Overview: Onychomycosis of toenails; Original Code: [id number] Original Codesystem: SNOMED CT Classification: Medical Confirmation [...] Comments Blood Pressure 107/66 06/18/2023 1:10 PM BANK ACCOUNTANT Pulse 78 06/18/2023 1:10 PM BANK ACCOUNTANT Temperature 36.6 ??C (97.8 ??F) 06/18/2023 1:10 PM CS T Respiratory Rate 16 06/18/2023 1:10 PM BANK ACCOUNTANT Oxygen Saturation 95% 06/18/2023 1:10 PM BANK ACCOUNTANT Inhaled Oxygen Concentration - - Weight 75.8 kg (167 lb) 06/18/2023 1:10 PM BANK ACCOUNTANT Height 175.3 cm (5' 9) 04/12/2023 3:21 PM BANK ACCOUNTANT Body Mass Index 24.66 04/12/2023 3:21 PM BANK ACCOUNTANT Plan of Treatment Not on file Advance Directives For more information, please contact: [phone] * DNR/DNI (Latest Code Status on File) Date Activated Date Inactivated Comments 05/24/2023 6:14 PM * DNR/DNI Date Activated Date Inactivated Comments 04/12/2023 4:11 PM 04/16/2023 7:15 AM Care Teams Linemarker Relationship Specialty Start Date End Date Elsewhere, Pcp PCP - General Internal Medicine 08/28/23
== END 2023-11-28 09:09 | disposition home or self-care (01) ==
LOC: WOUND 09:08
PROVIDERS: PCP Family Medicine; Visit Provider Surgery
DX: E11.621 Type 2 diabetes mellitus with foot ulcer (principal); L97.422 Non-pressure chronic ulcer of left heel and midfoot with fat layer exposed; Z79.4 Long term (current) use of insulin; Z79.84 Long term (current) use of oral hypoglycemic drugs
CPT/HCPCS: 97597

== ENCOUNTER 2023-12-05 15:32 | Outpatient (CLI) | payer MEDICARE, BC, SELFPAY ==
--- OUTSIDE RECORDS SUMMARY | 2023-12-05 15:34 | XMS_ITS | Continuity of Care Document ---
Author Name [facility] Organization [facility] Care Team Providers Care Aircraft Delivery Checker Name Role Phone [facility] Unavailable Unavailable Problems Combined list of problems from Department of Defense and Veterans Affairs facilities. It does not include entries that were removed or entered in error. Problem Status Onset Date Problem Type Date of Resolution Comments Source Exposure to potentially hazardous substance ([facility] [id number]) Active 07/20/19 24 Condition Jul 20, 2023 Entered By: MECHELLE DEMPSEY Comment: [facility] TAM Documentation Initiative [facility] CAD - Coronary Artery Disease ([facility] [id number]) Active Condition [place] ([facility]) CHF - Congestive Heart Failure ([facility] [id number]) Active Condition [place] ([facility]) Diabetes Mellitus Type 2 ([facility] [id number]) Active Condition [place] ([facility]) History of amputation of right leg through tibia and fibula [facility] HTN - Hypertension ([facility] [id number]) Active Condition [place] ([facility]) Hyperlipidemia ([facility] [id number]) Active Condition [facility]) Hypothyroidism ([facility] [id number]) Active Condition [place] ([facility]) Long-term current use of insulin Active Condition [place] ([facility]) Peripheral neuropathy due to type 2 diabetes mellitus Active Condition [place] ([facility]) Diagnosis: ICD-10-CM E11.9 Type 2 diabetes mellitus without complications Active Diagnosis [place] ([facility]) Diagnosis: ICD-10-CM H90.3 Sensorineural hearing loss, bilateral Active Diagnosis [facility] Diagnosis: ICD-10-CM I50.9 Heart failure, unspecified Active Diagnosis [place] ([facility]) Diagnosis: ICD-10-CM R26.89 Other abnormalities of [...] Feb 15, 2023 40 Feb 16, 2024 [id number] Feb 20, 2023 [facility]URPHY [facility] ACT[facility] 02/16/2024 [id number] KATHY MURPHY 2022 40 [facility] CLOPIDOGREL BISULFATE 75MG TAB CLOPIDOG REL [...] Nov 08, 2023 10 Nov 08, 2024 [id number] Nov 09, 2023 JERMAINE CHESTER [place] ([facility]) SUBCUT ANEOUS ACTIVE 11/08/2024 [id number] RYAN CHESTER 2023 10 [place] ([facility]) [...] Site Reaction Lot Number CVX Code Drug Assisted Living Nursing Director Status Comments Source COVID-19 ([employer]), MRNA, LNP-S, PF, NAVYA-SUCROSE, 30 MCG/0.3 ML (AGES 12+ YEARS) 2022 309 complet ed [facility] INFLUENZA, ADJUVANTED, QUADRIVALENT, PF 2022 205 complet ed [facility] RSV, BIVALENT, PROTEIN SUBUNIT RSVPREF, DILUENT RECONSTITUTED , 0.5 ML, PF 2022 305 complet [facility] INFLUENZA, HIGH-DOSE, QUADRIVALENT 1 2021 197 complet [facility] COVID-19 (MODERNA), MRNA, LNP-S, BIVALENT, PF, 50 MCG/0.5 ML OR 25MCG/0.25 ML DOSE 1 2021 229 complet ed [facility] [place] COVID-19 (MODERNA), MRNA, LNP-S, PF, 100 MCG/0.5ML DOSE OR 50 MCG/0.25ML DOSE 2020 207 complet ed [facility] [place] COVID-19 (PFIZER), MRNA, LNP-S, PF, 30 MCG/0.3 ML DOSE 3 2020 208 complet ed [facility] INFLUENZA, HIGH-DOSE, QUADRIVALENT, PF 2020 197 complet ed [facility] [place] INFLUENZA, UNSPECIFIED FORMULATION 2020 88 complet ed [facility] TDAP 2020 115 complet ed Cezar Echevarria, [id number] , exp-2022 and given VIS dated 12/17/2020 [place] ([facility]) ZOSTER RECOMBINANT 2 2020 187 complet ed [place] ([facility]) ZOSTER RECOMBINANT 1 2020 187 complet ed [place] ([facility]) COVID-19 (PFIZER), MRNA, LNP-S, PF, 30 MCG/0.3 ML DOSE 2 2020 208 complet ed [facility] [place] COVID-19 (PFIZER), MRNA, LNP-S, PF, 30 MCG/0.3 ML DOSE 1 2020 208 complet ed [facility] [place] INFLUENZA, ADJUVANTED, TRIVALENT, PF 2019 168 complet ed [facility] INFLUENZA, UNSPECIFIED FORMULATION 2019 88 complet ed [facility] INFLUENZA, HIGH-DOSE, TRIVALENT, PF 2018 135 complet ed [facility] [place] INFLUENZA, ADJUVANTED, TRIVALENT, PF 2017 168 complet ed [facility] [place] INFLUENZA, UNSPECIFIED FORMULATION 2016 88 complet ed [facility] [place] INFLUENZA, HIGH-DOSE, TRIVALENT, PF 2014 135 complet ed [facility] [place] PNEUMOCOCCAL CONJUGATE PCV 13 2014 133 complet ed Per [facility] INFLUENZA, SPLIT VIRUS, TRIVALENT, PRESERVATIVE 2012 141 complet ed [facility] [place] INFLUENZA, SPLIT VIRUS, TRIVALENT, PRESERVATIVE 2011 141 complet ed [facility] [place] INFLUENZA, SPLIT VIRUS, TRIVALENT, PF 2010 140 complet ed [facility] [place] PNEUMOCOCCAL POLYSACCHARID E PPV23 2010 33 complet ed [facility] INFLUENZA, SPLIT VIRUS, TRIVALENT, PRESERVATIVE 2009 141 complet ed [facility] [place] INFLUENZA, SPLIT VIRUS, TRIVALENT, PF 2008 140 complet ed [facility] [place] INFLUENZA, SPLIT VIRUS, TRIVALENT, PRESERVATIVE 2007 141 complet ed [facility] [place] INFLUENZA, SPLIT VIRUS, TRIVALENT, PRESERVATIVE 2006 141 complet ed [facility] [place] INFLUENZA, SPLIT VIRUS, TRIVALENT, PRESERVATIVE 2005 141 complet ed [facility] [place] PNEUMOCOCCAL POLYSACCHARID E PPV23 2005 33 complet ed [employer] [facility] (ADULT), 5 LF TETANUS TOXOID, PRESERVATIVE FREE, ADSORBED 2005 113 complet ed [facility] [place] INFLUENZA, SPLIT VIRUS, TRIVALENT, PRESERVATIVE 2004 141 complet ed [facility] [place] INFLUENZA, SPLIT VIRUS, TRIVALENT, PRESERVATIVE 2003 141 complet ed [facility] [place] INFLUENZA, SPLIT VIRUS, TRIVALENT, PRESERVATIVE 2002 141 complet ed [facility] [place] Results Combined list of recent chemistry, hematology [...] Jan 23, 2023 02:00 PM Reporting Lab: [facility] [address] Performing Lab: [facility] [address] [place] ([facility]) BASIC METABOLIC PANEL+MG UREA NITROGEN [MASS/VOLUM E] IN SERUM OR PLASMA 35 mg/dL 8 - 26 01/23 H Specimen Type: PLASMA No comment entered. Ordering Provider: AILIN CHESTER Report Released Date/Time: Jan 23, 2023 02:00 PM Reporting Lab: [facility] [address] Performing Lab: [facility] [address] [place] ([facility]) BASIC METABOLIC PANEL+MG GLUCOSE [MASS/VOLUM E] IN SERUM OR PLASMA 239 mg/dL 70 - 100 01/23 H Specimen Type: PLASMA No comment entered. Ordering Provider: AILIN CHESTER Report Released Date/Time: Jan 23, 2023 02:00 PM Reporting Lab: [facility] [address] Performing Lab: [place] [address] [place] [address] ([facility]) BASIC METABOLIC PANEL+MG SODIUM [MOLES/VOLU ME] IN SERUM OR PLASMA 140 mmol/L 136 - 145 01/23 Specimen Type: PLASMA No comment entered. Ordering Provider: AILIN CHESTER Report Released Date/Time: Jan 23, 2023 02:00 PM Reporting Lab: [place] [id number] Performing Lab: [address] ([facility]) BASIC METABOLIC PANEL+MG POTASSIUM [MOLES/VOLU ME] IN SERUM OR PLASMA 5.1 mmol/L 3.5 - 5.1 01/23 Specimen Type: PLASMA No comment entered. Ordering Provider: AILIN CHESTER Report Released Date/Time: Jan 23, 2023 02:00 PM Reporting Lab: [facility] [address] Performing Lab: [facility] [phone] [place] [address] ([facility]) BASIC METABOLIC PANEL+MG CHLORIDE [MOLES/VOLU ME] IN SERUM OR PLASMA 109 mmol/L 98 - 107 01/23 H Specimen Type: PLASMA No comment entered. Ordering Provider: AILIN CHESTER Report Released Date/Time: Jan 23, 2023 02:00 PM Reporting Lab: [facility] [address] Performing Lab: [facility] [phone] [place] [address] ([facility]) BASIC METABOLIC PANEL+MG CARBON DIOXIDE, TOTAL [MOLES/VOLU ME] IN SERUM OR PLASMA 21 mmol/L 22 - 29 01/23 L Specimen Type: PLASMA No comment entered. Ordering Provider: AILIN CHESTER Report Released Date/Time: Jan 23, 2023 02:00 PM Reporting Lab: [facility] [address] Performing Lab: [place] [address] [place] ([facility]) BASIC METABOLIC PANEL+MG CALCIUM [MASS/VOLUM E] IN SERUM OR PLASMA 9.4 mg/dL 8.4 - 10.2 01/23 Specimen Type: PLASMA No comment entered. Ordering Provider: AILIN CHESTER Report Released Date/Time: Jan 23, 2023 02:00 PM Reporting Lab: [address] Performing Lab: [address] [place] [address] ([facility]) BASIC METABOLIC PANEL+MG MAGNESIUM [MASS/VOLUM E] IN SERUM OR PLASMA 1.7 mg/dL 1.6 - 2.6 01/23 Specimen Type: PLASMA No comment entered. Ordering Provider: AILIN CHESTER Report Released Date/Time: Jan 23, 2023 02:00 PM Reporting Lab: [place] [address] Performing Lab: [address] ([facility]) BASIC METABOLIC PANEL+MG ANION GAP IN SERUM OR PLASMA 10 mmol/L 5 - 15 01/23 Specimen Type: PLASMA No comment entered. Ordering Provider: AILIN CHESTER Report Released Date/Time: Jan 23, 2023 02:00 PM Reporting Lab: [place] [phone] Performing Lab: [address] [place] [address] ([facility]) BASIC METABOLIC PANEL+MG GLOMERULAR FILTRATION RATE/1.73 SQ M.PREDICTED [VOLUME RATE/AREA] IN SERUM, PLASMA OR BLOOD BY CREATININE- BASED FORMULA (CKD-EPI 2020) 61 60 01/23 Specimen Type: PLASMA No comment entered. Ordering Provider: AILIN CHESTER Report Released Date/Time: Jan 23, 2023 02:00 PM Reporting Lab: [facility] [phone] Performing Lab: [address] [place] ([facility]) BNP NATRIURETIC PEPTIDE B [MASS/VOLUM E] IN SERUM OR PLASMA 1549 pg/mL <99 - 99 01/23 H Specimen Type: PLASMA No comment entered. Ordering Provider: AILIN CHESTER Report Released Date/Time: Jan 23, 2023 02:00 PM Reporting Lab: [facility] [address] Performing Lab: [facility] [address] [place] ([facility]) MICROALBU MIN/CREAT ININE RATIO URINE CREATININE [MASS/VOLUM E] IN URINE 132.8 mg/dL 58.0 - 161.0 11/23 Specimen Type: URINE No comment entered. Ordering Provider: AILIN CHESTER Report Released Date/Time: Nov 23, 2022 11:58 AM Reporting Lab: [facility] [address] Performing Lab: [facility] [address] [place] ([facility]) MICROALBU MIN/CREAT ININE RATIO URINE MICROALBUMI N/CREATININ E [MASS RATIO] IN URINE 28.0 mg/g{c reat} 11/23 Specimen Type: URINE No comment entered. Ordering Provider: AILIN CHESTER Report Released Date/Time: Nov 23, 2022 11:58 AM Reporting Lab: [facility] [phone] Performing Lab: [facility] [address] [place] ([facility]) MICROALBU MIN/CREAT ININE RATIO URINE MICROALBUMI N [MASS/VOLUM E] IN URINE 37.2 mg/L 11/23 H Specimen Type: URINE No comment entered. Ordering Provider: AILIN CHESTER Report Released Date/Time: Nov 23, 2022 11:58 AM Reporting Lab: [facility] [address] Performing Lab: [facility] [address] [place] ([facility]) LIPID PANEL,NON -FASTING CHOLESTEROL [MASS/VOLUM E] IN SERUM OR PLASMA 130 mg/dL 11/23 Specimen Type: PLASMA No comment entered. Ordering Provider: AILIN CHESTER Report Released Date/Time: Nov 23, 2022 11:58 AM Reporting Lab: [facility] [address] Performing Lab: [facility] [address] [place] ([facility]) LIPID PANEL,NON -FASTING CHOLESTEROL IN HDL [MASS/VOLUM E] IN SERUM OR PLASMA 39 mg/dL 11/23 L Specimen Type: PLASMA No comment entered. Ordering Provider: AILIN CHESTER Report Released Date/Time: Nov 23, 2022 11:58 AM Reporting Lab: [facility] [address] Performing Lab: [address] [place] [address] ([facility]) LIPID PANEL,NON -FASTING CHOLESTEROL IN LDL [MASS/VOLUM E] IN SERUM OR PLASMA BY CALCULATION 73 mg/dL 11/23 Specimen Type: PLASMA No comment entered. Ordering Provider: AILIN CHESTER Report Released Date/Time: Nov 23, 2022 11:58 AM Reporting Lab: [facility] [address] Performing Lab: [facility] [phone] [place] [address] ([facility]) LIPID PANEL,NON -FASTING CHOLESTEROL IN VLDL [MASS/VOLUM E] IN SERUM OR PLASMA BY CALCULATION 18 mg/dL 11/23 Specimen Type: PLASMA No comment entered. Ordering Provider: AILIN CHESTER Report Released Date/Time: Nov 23, 2022 11:58 AM Reporting Lab: [facility] [address] Performing Lab: [facility] [phone] [place] [address] ([facility]) LIPID PANEL,NON -FASTING CHOLESTEROL NON HDL [MASS/VOLUM E] IN SERUM OR PLASMA 91 mg/dL 11/23 Specimen Type: PLASMA No comment entered. Ordering Provider: AILIN CHESTER Report Released Date/Time: Nov 23, 2022 11:58 AM Reporting Lab: [facility] [address] Performing Lab: [facility] [address] [place] ([facility]) LIPID PANEL,NON -FASTING TRIGLYCERID E [MASS/VOLUM E] IN SERUM OR PLASMA 92 mg/dL 11/23 Specimen Type: PLASMA No comment entered. Ordering Provider: AILIN CHESTER Report Released Date/Time: Nov 23, 2022 11:58 AM Reporting Lab: [facility] [address] Performing Lab: [facility] [address] [place] ([facility]) CBC LEUKOCYTES [#/VOLUME] IN BLOOD BY AUTOMATED COUNT 10.80 10*3/u L 4.0 - 11.0 11/23 Specimen Type: BLOOD No comment entered. Ordering Provider: AILIN CHESTER Report Released Date/Time: Nov 23, 2022 11:58 AM Reporting Lab: [facility] [address] Performing Lab: [address] [place] ([facility]) CBC ERYTHROCYTE S [#/VOLUME] IN BLOOD BY AUTOMATED COUNT 3.87 10*6/u L 4.6 - 6.2 11/23 L Specimen Type: BLOOD No comment entered. Ordering Provider: AILIN CHESTER Report Released Date/Time: Nov 23, 2022 11:58 AM Reporting Lab: [facility] [address] Performing Lab: [address] [place] [address] (CB) CBC HEMOGLOBIN [MASS/VOLUM E] IN BLOOD 12.1 g/dL 13.5 - 17.9 11/23 L Specimen Type: BLOOD No comment entered. Ordering Provider: AILIN CHESTER Report Released Date/Time: Nov 23, 2022 11:58 AM Reporting Lab: [facility] [address] Performing Lab: [facility] [address] [place] ([facility]) CBC HEMATOCRIT [VOLUME FRACTION] OF BLOOD BY AUTOMATED COUNT 37.5 41 - 54 11/23 L Specimen Type: BLOOD No comment entered. Ordering Provider: AILIN CHESTER Report Released Date/Time: Nov 23, 2022 11:58 AM Reporting Lab: [facility] [address] Performing Lab: [place] [phone] [place] [address] (CB) CBC MCV [ENTITIC VOLUME] BY AUTOMATED COUNT 96.9 fL 80 - 100 11/23 Specimen Type: BLOOD No comment entered. Ordering Provider: AILIN CHESTER Report Released Date/Time: Nov 23, 2022 11:58 AM Reporting Lab: [facility] [address] Performing Lab: [address] ([facility]) CBC MCH [ENTITIC MASS] BY AUTOMATED COUNT 31.3 pg 27 - 33 11/23 Specimen Type: BLOOD No comment entered. Ordering Provider: AILIN CHESTER Report Released Date/Time: Nov 23, 2022 11:58 AM Reporting Lab: [address] Performing Lab: [address] ([facility]) CBC MCHC [MASS/VOLUM E] BY AUTOMATED COUNT 32.3 g/dL 32.0 - 37.5 11/23 Specimen Type: BLOOD No comment entered. Ordering Provider: AILIN CHESTER Report Released Date/Time: Nov 23, 2022 11:58 AM Reporting Lab: [facility] [address] Performing Lab: [address] ([facility]) CBC PLATELETS [#/VOLUME] IN BLOOD BY AUTOMATED COUNT 293 10*3/u L 150 - 400 11/23 Specimen Type: BLOOD No comment entered. Ordering Provider: AILIN CHESTER Report Released Date/Time: Nov 23, 2022 11:58 AM Reporting Lab: [facility] [address] Performing Lab: [facility] [phone] [place] [address] ([facility]) CBC PLATELET MEAN VOLUME [ENTITIC VOLUME] IN BLOOD BY AUTOMATED COUNT 10.3 fL 7.4 - 10.4 11/23 Specimen Type: BLOOD No comment entered. Ordering Provider: AILIN CHESTER Report Released Date/Time: Nov 23, 2022 11:58 AM Reporting Lab: [facility] [address] Performing Lab: [address] ([facility]) CBC ERYTHROCYTE DISTRIBUTIO N WIDTH [RATIO] BY AUTOMATED COUNT 13.2 11.5 - 14.5 11/23 Specimen Type: BLOOD No comment entered. Ordering Provider: AILIN CHESTER Report Released Date/Time: Nov 23, 2022 11:58 AM Reporting Lab: [facility] [address] Performing Lab: [address] ([facility]) TSH W/REFLEX TO FREE T4 THYROTROPIN [UNITS/VOLU ME] IN SERUM OR PLASMA 4.59 u[IU]/ mL 0.35 - 4.94 11/23 Specimen Type: PLASMA No comment entered. Ordering Provider: AILIN CHESTER Report Released Date/Time: Nov 23, 2022 11:58 AM Reporting Lab: [facility] [address] Performing Lab: [place] [phone] [place] ([facility]) HEMOGLOBI N A1C HEMOGLOBIN A1C/HEMOGLO BIN.TOTAL [...] Nov 23, 2022 11:58 AM Reporting Lab: [place] [phone] Performing Lab: [facility] [address] [place] ([facility]) COMPREHEN SIVE METABOLIC PANEL+MG CREATININE [MASS/VOLUM E] IN SERUM OR PLASMA 1.2 mg/dL 0.7 - 1.2 11/23 Specimen Type: PLASMA No comment entered. Ordering Provider: AILIN CHESTER Report Released Date/Time: Nov 23, 2022 11:58 AM Reporting Lab: [facility] [address] Performing Lab: [place] [phone] [place] ([facility]) COMPREHEN SIVE METABOLIC PANEL+MG UREA NITROGEN [MASS/VOLUM E] IN SERUM OR PLASMA 34 mg/dL 8 - 26 11/23 H Specimen Type: PLASMA No comment entered. Ordering Provider: AILIN CHESTER Report Released Date/Time: Nov 23, 2022 11:58 AM Reporting Lab: [place] [phone] Performing Lab: [place] [phone] [place] ([facility]) COMPREHEN SIVE METABOLIC PANEL+MG GLUCOSE [MASS/VOLUM E] IN SERUM OR PLASMA 54 mg/dL 70 - 100 11/23 L Specimen Type: PLASMA No comment entered. Ordering Provider: AILIN CHESTER Report Released Date/Time: Nov 23, 2022 11:58 AM Reporting Lab: [facility] [phone] Performing Lab: [facility] [address] [place] ([facility]) COMPREHEN SIVE METABOLIC PANEL+MG SODIUM [MOLES/VOLU ME] IN SERUM OR PLASMA 143 mmol/L 136 - 145 11/23 Specimen Type: PLASMA No comment entered. Ordering Provider: AILIN CHESTER Report Released Date/Time: Nov 23, 2022 11:58 AM Reporting Lab: [facility] [address] Performing Lab: [place] [phone] [place] ([facility]) COMPREHEN SIVE METABOLIC PANEL+MG POTASSIUM [MOLES/VOLU ME] IN SERUM OR PLASMA 4.4 mmol/L 3.5 - 5.1 11/23 Specimen Type: PLASMA No comment entered. Ordering Provider: AILIN CHESTER Report Released Date/Time: Nov 23, 2022 11:58 AM Reporting Lab: [facility] [address] Performing Lab: [facility] [address] [place] ([facility]) COMPREHEN SIVE METABOLIC PANEL+MG CHLORIDE [MOLES/VOLU ME] IN SERUM OR PLASMA 107 mmol/L 98 - 107 11/23 Specimen Type: PLASMA No comment entered. Ordering Provider: AILIN CHESTER Report Released Date/Time: Nov 23, 2022 11:58 AM Reporting Lab: [facility] [address] Performing Lab: [facility] [address] [place] ([facility]) COMPREHEN SIVE METABOLIC PANEL+MG CARBON DIOXIDE, TOTAL [MOLES/VOLU ME] IN SERUM OR PLASMA 23 mmol/L 22 - 29 11/23 Specimen Type: PLASMA No comment entered. Ordering Provider: AILIN CHESTER Report Released Date/Time: Nov 23, 2022 11:58 AM Reporting Lab: [facility] [address] Performing Lab: [facility] [address] [place] ([facility]) COMPREHEN SIVE METABOLIC PANEL+MG CALCIUM [MASS/VOLUM E] IN SERUM OR PLASMA 9.7 mg/dL 8.4 - 10.2 11/23 Specimen Type: PLASMA No comment entered. Ordering Provider: AILIN CHESTER Report Released Date/Time: Nov 23, 2022 11:58 AM Reporting Lab: [place] [address] Performing Lab: [address] ([facility]) COMPREHEN SIVE METABOLIC PANEL+MG PROTEIN [MASS/VOLUM E] IN SERUM OR PLASMA 7.2 g/dL 6.0 - 8.3 11/23 Specimen Type: PLASMA No comment entered. Ordering Provider: AILIN CHESTER Report Released Date/Time: Nov 23, 2022 11:58 AM Reporting Lab: [place] [address] Performing Lab: [address] ([facility]) COMPREHEN SIVE METABOLIC PANEL+MG ALBUMIN [MASS/VOLUM E] IN SERUM OR PLASMA 4.1 g/dL 3.5 - 5.2 11/23 Specimen Type: PLASMA No comment entered. Ordering Provider: AILIN CHESTER Report Released Date/Time: Nov 23, 2022 11:58 AM Reporting Lab: [place] [phone] Performing Lab: [address] ([facility]) COMPREHEN SIVE METABOLIC PANEL+MG BILIRUBIN.T OTAL [MASS/VOLUM E] IN SERUM OR PLASMA 0.5 mg/dL 0.2 - 1.2 11/23 Specimen Type: PLASMA No comment entered. Ordering Provider: AILIN CHESTER Report Released Date/Time: Nov 23, 2022 11:58 AM Reporting Lab: [place] [address] Performing Lab: [address] ([facility]) COMPREHEN SIVE METABOLIC PANEL+MG MAGNESIUM [MASS/VOLUM E] IN SERUM OR PLASMA 1.4 mg/dL 1.6 - 2.6 11/23 L Specimen Type: PLASMA No comment entered. Ordering Provider: AILIN CHESTER Report Released Date/Time: Nov 23, 2022 11:58 AM Reporting Lab: [facility] [address] Performing Lab: [facility] [address] [place] ([facility]) COMPREHEN SIVE METABOLIC PANEL+MG ANION GAP IN SERUM OR PLASMA 13 mmol/L 5 - 15 11/23 Specimen Type: PLASMA No comment entered. Ordering Provider: AILIN CHESTER Report Released Date/Time: Nov 23, 2022 11:58 AM Reporting Lab: [facility] [address] Performing Lab: [facility] [address] [place] ([facility]) COMPREHEN SIVE METABOLIC PANEL+MG ALKALINE PHOSPHATASE [ENZYMATIC ACTIVITY/VO LUME] IN SERUM OR PLASMA 87 U/L 40 - 150 11/23 Specimen Type: PLASMA No comment entered. Ordering Provider: AILIN CHESTER Report Released Date/Time: Nov 23, 2022 11:58 AM Reporting Lab: [facility] [address] Performing Lab: [facility] [address] [place] ([facility]) COMPREHEN SIVE METABOLIC PANEL+MG ALANINE AMINOTRANSF ERASE [ENZYMATIC ACTIVITY/VO LUME] IN SERUM OR PLASMA 28 U/L 11/23 Specimen Type: PLASMA No comment entered. Ordering Provider: AILIN CHESTER Report Released Date/Time: Nov 23, 2022 11:58 AM Reporting Lab: [facility] [address] Performing Lab: [facility] [address] [place] ([facility]) COMPREHEN SIVE METABOLIC PANEL+MG ASPARTATE AMINOTRANSF ERASE [ENZYMATIC ACTIVITY/VO LUME] IN SERUM OR PLASMA 33 U/L 11/23 Specimen Type: PLASMA No comment entered. Ordering Provider: AILIN CHESTER Report Released Date/Time: Nov 23, 2022 11:58 AM Reporting Lab: [facility] [id number] Performing Lab: [facility] [address] [place] ([facility]) COMPREHEN SIVE METABOLIC PANEL+MG GLOMERULAR FILTRATION RATE/1.73 SQ M.PREDICTED [VOLUME RATE/AREA] IN SERUM, PLASMA OR BLOOD BY CREATININE- BASED FORMULA (CKD-EPI 2020) 61 11/23 Specimen Type: PLASMA No comment entered. Ordering Provider: AILIN CHESTER Report Released Date/Time: Nov 23, 2022 11:58 AM Reporting Lab: [facility] [id number] Performing Lab: [facility] [id number] [place] ([facility]) Vital Signs Combined list of inpatient and outpatient Vital Signs from [facility] and [facility], ranging from 12 months to all on record, depending upon the facility. Vital Sign Value Date Comments Source Encounters Combined list of: 1) Encounters from Department of Veterans Affairs facilities going back up to thelast 18 months. 2) Encounters from the Department of [facility] facilities going back up to 280 months. Location Location Details Encounter Type Encounter Number Reason For Visit Attending Provider ADM Date DC Date Status Disposition Source [facility] Outpatient Encounter [id number] 07[facility] Outpatient Encounter [id number] 08/[facility] Outpatient [facility]counter [id number] 09/20 [facility] Outpatient [facility]counter [id number] 11/11 [facility] [facility] Out[facility] Encounter [id number] ZARI POWER 11[facility] Outpatient Encounter [id number] 11/21 [facility] ([facility]) OFFICE O/P EST MOD 30-39 MIN [id number] Diagnos is: ICD-10- CM Z00.00 Encntr for general adult medical exam w/o abnorma l finding s
CANDELARIO CHESTER 11/23 [facility] ([facility]) [place] ([facility]) GAIT TRAINING THERAPY [id number] Diagnos is: ICD-10- CM R26.89 Other abnorma lities of gait and mobilit y
OMAYRA JAEMSON V 11/23 [facility] ([facility]) [place] [facility] Outpatient Encounter [id number] SA TRINO RA R 12/11 [place] [facility] [place] [facility] Outpatient Encounter [id number] 12/25 [place] [facility] [place] [facility] Outpatient Encounter [id number] SA TRINO RA R 12/28 [place] [facility] [place] [facility] Outpatient Encounter [id number] 01/05 [place] [facility] [place] [facility] Outpatient Encounter [id number] 01/11 [place] [facility] [place] [facility] Outpatient Encounter [id number] 01/16 [place] [facility] OFFICE O/P EST HI 40-54 MIN [id number] Diagnos is: ICD-10- CM I50.9 Heart failure , unspeci fied
CANDELARIO CHESTER 01/23 [place] [facility] ([facility] [place] [facility] Outpatient Encounter [id number] Marcus POTTS I 01/24 [place] [facility] [place] [facility] Outpatient Encounter [id number] Danica TORRE 02/05 [place] [facility] [place] [facility] Outpatient Encounter [id number] 02/09 [place] [facility] [place] [facility] Outpatient Encounter [id number] Danica TORRE 02/09 [place] [facility] [place] [facility] Outpatient Encounter [id number] 02/14 [place] [facility] [place] [facility] Outpatient Encounter [id number] 02/15 [place] [facility] [place] [facility] Outpatient Encounter [id number] 02/19 [place] [facility] [place] [facility] Outpatient Encounter [id number] 02/20 [place] [place] [facility] Outpatient Encounter [id number] 02/20 [place] [facility] [place] [facility] Outpatient Encounter [id number] 02/20 [place] [facility] [place] [facility] Outpatient Encounter [id number] 02/20 [place] [facility] [place] [facility] Outpatient Encounter [id number] 02/21 [place] [facility] [place] [facility] QNHP OL DIG ASSMT&MGMT 5-10 [id number] Diagnos is: ICD-10- CM E11.9 Type 2 diabete s mellitu s without complic ations< br/> HARDER,SIVA LY 02/22 [place] [facility] PRO PHONE CALL 11-20 MIN [id number] Diagnos is: ICD-10- CM I50.9 Heart failure , unspeci fied
JERMAINE ALCANTAR ANDMARIA INES Frey 02/23 [place] [facility] ([facility] [place] [facility] Outpatient Encounter [id number] 02/26 [place] [facility] [place] [facility] Outpatient Encounter [id number] 03/01 [place] [facility] [place] [facility] Outpatient Encounter [id number] 03/05 [place] [facility] [place] [facility] Outpatient Encounter [id number] SA RA Sandra JAMESON 03/09 [place] [facility] [place] [facility] Outpatient Encounter [id number] 03/14 [place] [facility] [place] [facility] Outpatient Encounter [id number] SA JAMARI JAMESON R 04/12 [facility] [place] [facility] Outpatient Encounter [id number] TRINO R 04/16 [facility] [place] [facility] Outpatient Encounter [id number] TRINO R 05/01 [facility] [place] [facility] Outpatient Encounter [id number] 07/11 [facility] [place] [facility] Outpatient Encounter [id number] [facility] [place] [facility] Outpatient Encounter [id number] 07/12 [facility] PRO PHONE CALL 5-10 MIN [id number] Diagnos is: ICD-10- CM 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
VIV BARFIELD 07/19 [facility] HEARING AID REPAIR/MOD IFYING [id number] Diagnos is: ICD-10- CM 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
CARY CORCORAN 08/09 [facility] HEARING AID FITTING/CH ECKING [id number] Diagnos is: ICD-10- CM 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
Sy MAKI [facility] Outpatient Encounter [id number] 10/17 [facility] ([facility]) OFFICE O/P EST HI 40 MIN [id number] Diagnos is: ICD-10- CM E11.9 Type 2 diabete s mellitu s without complic ations< br/> CANDELARIO CHESTER 11/07 [place] ([facility]) Social History Combined list of available smoking, tobacco, and other social history from Department of Defense and Veterans Affairs facilities. Social History Type Response Date Comment Sourc e Tobacco smoking status NHIS VA-TOBACCO FORMER USER 11/08/2023 [place] ([facility]) History of tobacco use VA-TOBACCO QUIT 1 5 YRS OR MORE 11/08/2023 [place] ([facility]) History of tobacco use VA-TOBACCO QUIT 1 5 YRS OR MORE 11/23/2022 [place] ([facility]) History of tobacco use VA-TOBACCO FORMER USER 11/29/2021 [place] ([facility]) History of tobacco use VA-TOBACCO FORMER USER 10/21/2020 [place] ([facility]) Plan of Care List of future care activities from Department of Veterans Affairs facilities. Additional future care activities may be listed in the Assessment and Plan section. Date/Time Care Activity Care Activity Detail Facili ty 12/18/2023 AMBULATORY - REHAB MEDICINE AMBULATORY - REHAB MEDICINE [place] ([facility]) 11/08/2023 Consult Order REHAB OUTPT [place] Flores MOBILITY Cons Heating Fixture Tender's Choice [place] ([facility])
--- OUTSIDE RECORDS SUMMARY | 2023-12-05 15:35 | XMS_ITS | Continuity of Care Document ---
Author Organization [facility], [facility] Address [address] [place] [address] Care Team Providers Care Steward/Stewardess Tourist Class Name Role Phone HARMANTEPARVEZ To Primary Care Provider Assessment No assessment recorded. Plan of Treatment Reminders Order Date Submit Date Provider Last Modified By Organization Details Last Modified Time Details Appointments None record ed. Lab None record ed. Referral None record ed. Procedures None record ed. Surgeries None record ed. Imaging None record ed. Medication Orders None record ed. Patient TargetsNo targets recorded. Patient InstructionsNo instructions recorded. Reason for Referral None Reported. Medical Equipment None Reported. Allergies No known drug allergies Medications Name Sig Start Date Stop Date Status Note LastModified by Organization Details LastModified Time furosemide 40 mg tablet 11/27 completed Not Available Not Available Not Available atorvastati n 40 mg tablet TAKE 1 TABLET BY MOUTH DAILY AT BEDTIME active Not Available Not Available No t Available acetaminoph en 325 mg tablet TAKE 2 TABLETS BY MOUTH THREE TIMES DAILY NEEDED active Not Available Not Available No t Available doxycycline hyclate 100 mg capsule TAKE 1 CAPSULE BY MOUTH TWICE DAILY 11/27 completed Not Available Not Available Not Available metoprolol succinate ER 50 mg tablet,exte nded release 24 hr 11/27 completed Not Available Not Available Not Available glipizide 10 mg tablet TAKE 1 TABLET BY MOUTH TWICE DAILY BEFORE MEALS 11/27 completed Not Available Not Available Not Available isosorbide mononitrate ER 30 mg tablet,exte nded release 24 hr 11/27 completed Not Available Not Available Not Available clopidogrel 75 mg tablet active Not Available Not Available Not Available ciprofloxac in 500 mg tablet 11/27 completed Not Available Not Available Not Available triamcinolo ne acetonide 0.1 % topical cream APPLY TOPICALLY TO THE AFFECTED AREA TWICE DAILY NEEDED FOR IRRITATIO N active Not Available Not Available No t Available spironolact one 25 mg tablet active Not Available Not Available Not Available levothyroxi ne 75 mcg tablet active Not Available Not Available Not Available doxycycline monohydrate 100 mg capsule TAKE 1 CAPSULE BY MOUTH TWICE DAILY FOR 14 DAYS 11/27 completed Not Available Not Available Not Available pantoprazol e 40 mg tablet,ilan yed release active Not Available Not Available Not Available metformin 1,000 mg tablet 11/27 completed Not Available Not Available Not Available lisinopril 10 mg tablet 11/27 completed Not Available Not Available Not Available losartan 25 mg tablet 11/27 completed Not Available Not Available Not Available nitroglycer in 0.[address] 1 TABLET UNDER THE TONGUE EVERY 5 MINUTES IF NEEDED FOR CHEST PAIN. UP TO 3 TABLETS IN 15 MINUTES active Not Available Not Available No t Available furosemide 20 mg tablet active Not Available Not Available Not Available metoprolol succinate ER 25 mg tablet,exte nded release 24 hr Take 0.5 tablets every day by oral route. active Not Available Not Available No t Available ketoconazol e 2 % topical cream APPLY TOPICALLY TO THE AFFECTED AREA TWICE DAILY NEEDED FOR IRRITATIO N OR RASH active Not Available Not Available No t Available clotrimazol e 1 % topical cream active Not Available Not Available Not Available glipizide 5 mg tablet TAKE 1/2 TABLET BY MOUTH ONCE A DAY BEFORE A MEAL 11/27 completed Not Available Not Available Not Available mirtazapine 7.5 mg tablet active Not Available Not Available Not Available diclofenac 1 % topical gel active Not Available Not Available Not Available Contour Next Test Strips TEST FOUR TIMES DAILY active Not Available Not Available No t Available Eliquis 5 mg tablet active Not Available Not Available No t Available Farxiga 10 mg tablet active Not Available Not Available No t Available Entresto 24 mg-26 mg tablet TAKE 1 TABLET BY MOUTH TWICE DAILY 11/27 completed Not Available Not Available Not Available Basaglar KwikPen U-100 Insulin 100 unit/mL (3 mL) subcutaneou s ADMINISTE R 34 UNITS UNDER THE SKIN EVERY NIGHT AT BEDTIME active Not Available Not Available No t Available Fiasp FlexTouch U-100 Insulin 100 unit/mL (3 mL) subcutaneou s pen GIVE 8 UNITS THREE TIMES DAILY WITH MEALS PLUS SLIDING SCALE UP TO 60 UNITS DAILY 11/27 completed Not Available Not Available Not Available Vitals Date Recorded Body weight Body mass index (BMI) Body height Provider Name and Address Organization Details Last Updated DateTime 11/28/2023 38615.78 g 23 kg/m2 177.8 cm Shlomomichael lainezo [facility] 11/28/2023 14:16:54 Social History Question Answer Notes LastModified by Organizat ion Details LastModified Time Tobacco Smoking Status [facility]/28/2023 14:22:10 What Is Your Level Of Alcohol Consumption? Occasional Information not available 11/28/2023 What Is Your Level Of Caffeine Consumption? Moderate Information not available 11/28/2023 What Was The Date Of Your Most Recent Tobacco Screening? 11/28/2023 Information not available 11/28/2023 Do You Use Any Illicit Or Recreational Drugs? No Information not available 11/28/2023 Sex: Unknown Functional Status None recorded. Mental Status None recorded. Family History Relationship Description Onset Age of this Age Resolved Age Notes Sister Family history of ca ncer of colon Sister Family history of br east cancer Notes:skin cancer-dad Medical History Condition Response Diabetes Y High Blood Pressure Y Kidney Stones N High Cholesterol Y Immunizations Vaccine Type Date Status Provider Name and Address Organization Details Recorded Time Influenza, adjuvanted, trivalent, PF 01/10/2018 completed Bennett winn, [facility] 11/28/2023 14:17:02 Influenza, adjuvanted, trivalent, PF 02/12/2020 completed Bennett winn, [facility] 11/28/2023 14:17:02 Influenza, high-dose, quadrivalent, PF 03/09/2021 completed Bennett winn, [facility] 11/28/2023 14:17:02 Influenza, high-dose, quadrivalent, PF 04/05/2022 completed Bennett winn, [facility] 11/28/2023 14:17:02 Influenza, adjuvanted, quadrivalent, PF 03/05/2023 completed Bennett Kimrigal-Valer o null, [facility] 11/28/2023 14:17:02 COVID-19, mRNA, LNP-S, PF, 100 mcg/0.5mL dose or 50 mcg/0.25mL dose 03/09/2021 completed Bennett Kimrigal-Valer o null, [facility] 11/28/2023 14:17:02 COVID-19, mRNA, LNP-S, PF, 30 mcg/0.3 mL dose 07/03/2020 completed Bennett Kimrigal-Valer o null, [facility] 11/28/2023 14:17:02 COVID-19, mRNA, LNP-S, PF, 30 mcg/0.3 mL dose 07/24/2020 completed Bennett Kimrigal-Valer o null, [facility] 11/28/2023 14:17:02 COVID-19, mRNA, LNP-S, bivalent, PF, 50 mcg/0.5 mL or 25mcg/0.25 mL dose 03/29/2022 completed Bennett Kimrigal-Valer o null, [facility] 11/28/2023 14:17:02 RSV, bivalent, protein subunit RSVpreF, diluent reconstituted, 0.5 mL, PF 03/05/2023 completed Bennett Kimrigal-Valer o null, [facility] 11/28/2023 14:17:02 COVID-19, mRNA, LNP-S, PF, estrella-sucrose, 30 mcg/0.3 mL 03/05/2023 completed Bennett Kimrigal-Valer o null, [facility] 11/28/2023 14:17:02 pneumococcal polysaccharide PPV23 02/09/2011 completed Bennett Kimrigal-Valer o null, [facility] 11/28/2023 14:17:02 pneumococcal polysaccharide PPV23 03/06/2006 completed Bennett Kimrigal-Valer o null, [facility] 11/28/2023 14:17:02 influenza, unspecified formulation 03/15/2017 completed Miletzi Mg-Valer o null, [facility] 11/28/2023 14:17:02 Pneumococcal conjugate PCV 13 01/21/2015 completed Milraymoni Mg-Valer o null, [facility] 11/28/2023 14:17:02 Influenza, high-dose, trivalent, PF 01/21/2015 completed Miletzi Mg-Valer o null, [facility] 11/28/2023 14:17:02 Influenza, high-dose, trivalent, PF 03/07/2019 completed [facility] Mg-Valer o null, [facility] 11/28/2023 14:17:02 Influenza, split virus, trivalent, preservative 01/30/2013 completed Miletzi Mg-Valer o null, [facility] 11/28/2023 14:17:02 Influenza, split virus, trivalent, preservative 02/26/2003 completed [facility]tzi Mg-Valer o null, [facility] 11/28/2023 14:17:02 Influenza, split virus, trivalent, preservative 03/01/2004 [facility] 11/28/2023 14:17:02 Influenza, split virus, trivalent, preservative 03/05/2007 completed Miletzi Mg-Valer o null, [facility] 11/28/2023 14:17:02 Influenza, split virus, trivalent, preservative 03/06/2006 completed Miletzi Mg-Valer o null, [facility] 11/28/2023 14:17:02 Influenza, split virus, trivalent, preservative 03/09/2005 completed Miletzi Mg-Valer o null, [facility] 11/28/2023 14:17:03 Influenza, split virus, trivalent, preservative 03/09/2008 completed Miletzi Mg-Valer o null, [facility] 11/28/2023 14:17:03 Influenza, split virus, trivalent, preservative 03/13/2012 completed Miletzi Mg-Valer o null, [facility] 11/28/2023 14:17:03 Influenza, split virus, trivalent, preservative 04/28/2010 completed Bennett Kimrigal-Valer o null, [facility] 11/28/2023 14:17:03 Influenza, split virus, trivalent, PF 02/09/2011 completed Jeffninfa Duncanal-Andriaer o null, [facility] 11/28/2023 14:17:03 Influenza, split virus, trivalent, PF 04/05/2009 completed Bennett Kimrigal-Andriaer o null, [facility] 11/28/2023 14:17:03 Td (adult), 5 Lf tetanus toxoid, preservative free, adsorbed 03/06/2006 completed Bennett Kimrigal-Andriaer o null, [facility] 11/28/2023 14:17:03 Past Encounters Encounter ID Performer Location Encounter Start Date Encounter Closed Date Diagnosis/Indication Diagnosis SNOMED-CT Code [id number] Roberto Carballo MD [facility] [address] [place] [id number] 11/28/2023 13:46:09 12/04/2023 16:43:22 Phimosis [id number] Health Concerns Section Related Observation LastModified by Organization Detai ls LastModified Time None Recorded Concern Status LastModified by Organization Details LastModified Time None Recorded Payers Encounter Date Sequence Insurance Name Policy Number Policy Cherry Covered Member ID Cherry Member ID Guarantor Name 11/28/2023 1 [place] - MEDICARE COST [id number] Rosalina Bowers [id number] Rosalina Bowers Notes Date Note Type Note Provider Name and Address Organization Details Recorded Time 11/28/2023 text/html HPI Notes: 83 yo male with history of CAD (on Plavix), A.fib (on Eliquis), HTN, hyperlipidemia, DM (with neuropathy), HFrEF, hypothyroidism, and CKD (stage 3) - presents for evaluation of phimosis. He has tried steroid cream - no improvement. He reports difficulty / unable to retracting his foreskin for the past several months. He denies trouble with infections / balanitis. He denies trouble with urination. PSA - 1.38 (03/05/07) - 1.40 (04/28/10) Roberto Carballo MD [address] [place] [address], [place], [address], [facility] 11/30/2023 11:21:51
--- OUTSIDE RECORDS SUMMARY | 2023-12-05 15:35 | XMS_ITS | Clinical Summary ---
Author Organization [facility] Address [address] [place] [address] Care Team Providers Care Manager Steel Name Role Phone Elsewhere, Pcp Primary Care Provider Unavailabl e Source Comments Patient records contain information from all sites at [facility]. For routine questions regarding patient records, call [phone] during business hours, M-F 8:00 AM - 5:00 PM Central Time. Record requests for emergency care only can be directed to [phone] at any time.[facility] Allergies No known active allergies [...] Other Complications Of Amputation Stump 06/15/19 24 Overview (06/15/2023): Part of the scab came off when the nurse was cleaning the area with saline and a guaze. Assessment & Plan (06/15/2023 4:18 PM TEACHER OF THE EMOTIONALLY DISTURBED): The wound bed is clean. A thin layer of silver stat will be applied with a gauze. Change daily. 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 Left Heel: Area continues to improve. Wound measures [id number]. Edges well defined, attached and 100% re-epithelialized tissues. Granulation tissue is observed along the lining of the edges under the bed of slough/eschar. Eschar is soft but not mushy. Wound bed is still approx 95% or more of slough/eschar. Scant drainage with dressing change. Resident tolerated cares without any concerns. New wound orders as follows: Assessment & Plan (06/15/2023 4:10 PM TEACHER OF THE EMOTIONALLY DISTURBED): 1: Gently cleanse area with NS. Pat dry. 2. Skin prep to gonsalo-wound. 3. Santyl to wound bed only. 4. Place gauze over wound. 5. cover with island dressing. 6. Change dressing daily. He may be discharged to home with home nursing for wound care . Assessment & Plan (06/01/2023 2:33 PM TEACHER OF THE EMOTIONALLY DISTURBED): Continue wound care and have HEATING AND VENTILATING TENDER evaluate in one week. Dementia 05/20/2023 Overview (05/24/2023): No documented dementia or behaviors Assessment & Plan (05/24/2023 5:57 PM TEACHER OF THE EMOTIONALLY DISTURBED): He has low hearing which could contribute to him not understanding Assessment & Plan (05/20/2023 4:20 PM TEACHER OF THE EMOTIONALLY DISTURBED): Although initial BIMS testing scored 14, he has had episodes of what seems to be sundowning with strong suspicion of underlying dementia. Will have OT further evaluate. Hyperglycemia 04/22/2023 Overview (04/22/2023): Prior to recent hospitalization, insulin glargine dose was 25 units daily and short-acting insulin 10 units with meals. Assessment & Plan (05/24/2023 6:00 PM TEACHER OF THE EMOTIONALLY DISTURBED): A1C 7.2 He will follow up with his PCP in [place] Assessment & Plan (04/22/2023 8:28 PM TEACHER OF THE EMOTIONALLY DISTURBED): His appetite has been poor and he has been getting much less insulin than he is used to. His sugars however have been high. Will gradually increase mealtime insulin to 7 units. Previously on 10 units with meals. Mcc (Current) Anticoagulant Treatment 08/2022 Overview (04/16/2023): On apixaban in the setting of atrial fibrillation. 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 Assessment & Plan (05/24/2023 5:18 PM TEACHER OF THE EMOTIONALLY DISTURBED): He has a brace/cast on right BKA. He will need a standard wheelchair Mr. Woods was admitted to [facility] April 10 following BK right [...] continue to provide support to amputation site Assessment & Plan (04/16/2023 7:55 PM TEACHER OF THE EMOTIONALLY DISTURBED): Pain is well controlled. Stump care consists of washing with normal saline and dry. Cover with dry gauze or ABD b.i.d. he is wearing the knee brace to maintain extension in his working with therapies. He has follow-up with vascular surgery 05/11/2023. Assessment & Plan (04/12/2023 4:53 PM TEACHER OF THE EMOTIONALLY DISTURBED): Patient and mentioned he is doing well physically and with his mood. They both felt they have made the right decision because the leg was really given him problems before the amputation. He endorsed right BKA pain is well controlled at this time. He has been working with PT and tolerating therapy. Hypothyroidism 03/11/2023 Overview (06/05/2023): Lab Results Component Value Date TSH 14.20 (H) 06/05/2023 Component Ref Range & Units 1 mo ago 04/24/23 1 mo ago 04/13/23 2 mo ago 03/11/23 EXT TSH, Sensitive, S 0.27 - 4.20 uIU/mL 16.80 18.20 11.70 Levothyroxine 50mcg increase to 75mcg. Assessment & Plan (06/05/2023 9:25 PM TEACHER OF THE EMOTIONALLY DISTURBED): TSH value improved compared to prior value of 16.0 a month ago. Resident /nursing denied symptoms of hypothyroidism. Last T4 was 0.92 in April 2023. campus president confirmed levothyroxine is given every morning (6am) without other medications. Therefore, we will increase levothyroxine 50mcg to 75mcg and rechecked TSH in 6 weeks. Nursing instructed to continue monitoring for symptoms of hypothyroidism and contact [place] provider if any concerns. Assessment & Plan (05/24/2023 5:24 PM TEACHER OF THE EMOTIONALLY DISTURBED): Increase levothyroxine to 50 mcg daily. longterm may give two 25 mcg tablets to equal 50 mcg. He will be discharging in a week Assessment & Plan (04/23/2023 12:56 PM TEACHER OF THE EMOTIONALLY DISTURBED): TSH will be done. He is currently on levothyroxine 25 mcg daily. Dose will need to be adjusted if TSH is elevated. Assessment & Plan (04/16/2023 7:56 PM TEACHER OF THE EMOTIONALLY DISTURBED): Recheck TSH mid April. Assessment & Plan (04/12/2023 4:45 PM TEACHER OF THE EMOTIONALLY DISTURBED): Continue levothyroxine. TSH reordered. 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 Assessment & Plan (04/12/2023 4:08 PM TEACHER OF THE EMOTIONALLY DISTURBED): Plans to discharge back home. Patient remains appropriate SNF resident. Order summary paperwork signed following our visit, this included review of medications and orders. Current comorbidities, ADL need/level of debility requires skilled care/therapy. Medications and labs all reviewed and appropriate related to comorbidities, unless otherwise indicated. Physician order sheet signed. Continue PT/OT therapy, nutrition intervention, skin protection, and fall prevention. Assessment & Plan (01/17/2023 2:38 PM CDT): Patient discharging home with home health care. [facility] Assessment & Plan (01/17/2023 2:06 PM CDT): Patient remains appropriate SNF resident. Order summary paperwork signed following our visit, this included review of medications and orders. Current comorbidities, ADL need/level of debility requires skilled care/therapy. Medications and labs all reviewed and appropriate related to comorbidities, unless otherwise indicated. Physician order sheet signed. Continue PT/OT therapy, nutrition intervention, skin protection, and fall prevention. Advanced Care Planning 01/16/2023 Overview (01/17/2023): Full code status Assessment & Plan (05/24/2023 5:15 PM TEACHER OF THE EMOTIONALLY DISTURBED): He will be full code Assessment & Plan (01/17/2023 2:30 PM CDT): Continue full code status Hyperlipidemia 01/16/2023 Overview (05/24/2023): On atorvastatin Assessment & Plan (05/24/2023 6:01 PM TEACHER OF THE EMOTIONALLY DISTURBED): Stay on statin Assessment & Plan (01/17/2023 2:35 PM CDT): Continue atorvastatin Assessment & Plan (01/17/2023 2:01 PM CDT): Continue atorvastatin Weakness General 01/16/2023 Overview (01/16/2023): This is multifactorial and related to recent hospitalizations and multiple comorbidities. Assessment & Plan (06/05/2023 9:26 PM TEACHER OF THE EMOTIONALLY DISTURBED): Denied weakness. We will continue therapy. Assessment & Plan (05/24/2023 6:05 PM TEACHER OF THE EMOTIONALLY DISTURBED): He is getting stronger with therapy. He will continue therapy when he gets his prosthesis. He will have a wheelchair upon discharge. Assessment & Plan (04/12/2023 4:09 PM TEACHER OF THE EMOTIONALLY DISTURBED): Verbalized improvement with weakness. We will continue therapy. Assessment & Plan (01/17/2023 2:39 PM CDT): Verbalized improvement with weakness. We will continue therapy post discharge. Assessment & Plan (01/17/2023 2:08 PM CDT): Verbalized improvement with weakness. We will continue therapy post discharge. Assessment & Plan (01/16/2023 6:55 PM CDT): This is expected to improve with continued resolution of acute issues and with therapies. Anemia Iron Deficiency 01/16/2023 Overview (04/12/2023): Previously identified iron deficiency anemia receiving iron infusions. Lab Results Component Value Date WBC 9.0 04/11/2023 HGB 7.8 (L) 04/11/2023 HCT 24.9 (L) 04/11/2023 MCV 95 04/11/2023 PLT 381 04/11/2023 Assessment & Plan (04/12/2023 3:58 PM TEACHER OF THE EMOTIONALLY DISTURBED): Stable. Denied dizziness, lightheadedness, shortness of breaths and palpitation. Assessment & Plan (01/17/2023 2:30 PM CDT): Stable. Assessment & Plan (01/17/2023 1:58 PM CDT): Stable. Assessment & Plan (01/16/2023 7:16 PM CDT): Most recent hemoglobin 9.3. Atherosclerotic Heart Diseas e Of [place] Coronary Artery Without Angina Pectoris 01/15/2023 Overview (01/16/2023): NSTEMI 12/09/2022. Occluded saphenous vein graft to obtuse marginal. No PCI. PET stress test 01/05/2023 showed new area of infarct with no revascularization secondary to questionable benefit. Assessment & Plan (01/17/2023 2:31 PM CDT): Medical management including blood pressure and blood glucose control, statin, clopidogrel. Assessment & Plan (01/16/2023 7:16 PM CDT): Medical management including blood pressure and blood glucose control, statin, clopidogrel. Assessment & Plan (01/17/2023 1:59 PM CDT): Medical management including blood pressure and blood glucose control, statin, clopidogrel. Continue care plan. Congestive Heart Failure 01/15/2023 Overview (04/12/2023): EF: ECHO with EF 10-20% on 12/28/2022 [...] right atrial pressure (32 mmHg plus RAP). Assessment & Plan (05/24/2023 5:52 PM TEACHER OF THE EMOTIONALLY DISTURBED): Stable on current meds Assessment & Plan (04/23/2023 1:02 PM TEACHER OF THE EMOTIONALLY DISTURBED): BNAP 31,578 on 04/16/23. Dr. Gerardo increased furosemide to 40 mg bid and added spironolactone 25 mg daily. Weight today in [place] was 174 lb. No edema noted in left leg. No dyspnea. On O2 per N/C continuous. No change in medications until renal function results are available. Assessment & Plan (04/16/2023 7:41 PM TEACHER OF THE EMOTIONALLY DISTURBED): He had multiple medication changes during hospitalization including discontinuation of spironolactone and Entresto. Farxiga is being held. Metoprolol and furosemide doses were decreased. Assessment & Plan (04/12/2023 4:01 PM TEACHER OF THE EMOTIONALLY DISTURBED): No admission weight yet. Nursing to check patient's weight Assessment & Plan (01/17/2023 2:32 PM CDT): Has had significant improvement in weight, symptoms, and edema. Assessment & Plan (01/16/2023 7:09 PM CDT): Has had significant improvement in weight, symptoms, and edema. Assessment & Plan (01/16/2023 8:28 AM CDT): Continue care plan Hypertension Heart Disease With Congestive Heart Failure 12/22/2022 Assessment & Plan (04/22/2023 8:26 PM TEACHER OF THE EMOTIONALLY DISTURBED): Pro BN AP earlier today greater than 31,000. Doubling furosemide dose to 40 mg b.i.d. and adding spironolactone back at 25 mg daily. CBC and BMP on 02/17. Assessment & Plan (01/17/2023 2:39 PM CDT): CHF stable. Assessment & Plan (01/17/2023 2:07 PM CDT): CHF stable. Atrial Fibrillation Other Persistent 12/13/2022 Overview (01/16/2023): Diagnosis: 12/13/2022 Treatment: Well controlled with metoprolol, plavix and apixaban CHADS2-Vasc Score: 6 Anticoagulation: Apixaban Assessment & Plan (05/24/2023 5:53 PM TEACHER OF THE EMOTIONALLY DISTURBED): senior living anticoagulation on apixaban Assessment & Plan (04/23/2023 1:03 PM TEACHER OF THE EMOTIONALLY DISTURBED): Ventricular rate controlled today Assessment & Plan (04/12/2023 3:59 PM TEACHER OF THE EMOTIONALLY DISTURBED): HR well controlled ranging from 82-85. Continue care plan. Assessment & Plan (01/17/2023 2:31 PM CDT): HR well controlled ranging from 64-99. Continue care plan. Assessment & Plan (01/16/2023 8:24 AM CDT): HR well controlled. Continue care plan. 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 Assessment & Plan (05/24/2023 5:20 PM TEACHER OF THE EMOTIONALLY DISTURBED): Nurse reports he is nonadherent to his diabetic diet. He is also on a sliding scale. Assessment & Plan (01/17/2023 2:37 PM CDT): Blood sugar trending high. Patient started on glipizide 2.5 mg p.o. daily. Continue insulin aspart as ordered Assessment & Plan (01/17/2023 2:05 PM CDT): Blood sugar trending high. Patient started on glipizide 2.5 mg p.o. daily. 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 Assessment & Plan (05/29/2023 7:56 PM TEACHER OF THE EMOTIONALLY DISTURBED): Patient's blood sugar continued to be on [...] sees his endocrinology as soon as possible. Assessment & Plan (05/24/2023 5:59 PM TEACHER OF THE EMOTIONALLY DISTURBED): Insulin dependent not always compliant with diet. Glargine will be increased to 17 units. Assessment & Plan (05/22/2023 6:43 PM TEACHER OF THE EMOTIONALLY DISTURBED): Blood sugar continued to be elevated mostly in the evenings -530-9pm (in 400s) while blood sugar in the mornings and noon range from 164-67. Nursing/patient mentioned possible hyperglycemia due to snacking after dinner (sometimes per patient). Patient//nursing denied hypoglycemia. His mentioned he was on insulin aspart sliding scale at home and was counting his carbohydrate. Both patient and mentioned he has been eating more carb [...] 3 times daily with meals. Follow-up with HEATING AND VENTILATING TENDER next week. Dietitian/dietary to visit with patient and to discuss food options. Assessment & Plan (05/20/2023 4:22 PM TEACHER OF THE EMOTIONALLY DISTURBED): Recent blood sugars in the SNF setting have been elevated. Short and long-acting insulin doses have changed significantly since admission. Will have him follow- up with HEATING AND VENTILATING TENDER for further review of blood sugars. Assessment & Plan (04/23/2023 1:04 PM TEACHER OF THE EMOTIONALLY DISTURBED): Blood sugars not controlled. Increase Lantus to 14 units from 12. Assessment & Plan (04/16/2023 7:42 PM TEACHER OF THE EMOTIONALLY DISTURBED): Was previously on glipizide and higher doses of mealtime aspart. Blood sugars are being checked 4 times daily. May need insulin readjusted. Assessment & Plan (04/12/2023 4:04 PM TEACHER OF THE EMOTIONALLY DISTURBED): Blood sugars have been I< 200s. Currently on Glipizide, showed and long-acting insulins. Blood sugar check 4 times daily. Nursing/patient denied episodes of hypoglycemia. We will continue care plan. Assessment & Plan (01/17/2023 2:33 PM CDT): Previously on glipizide which was discontinued during recent hospitalization. Long and short-acting insulins were started. Blood sugars have been into the 300s. Glipizide restarted. We have PCP follow-up on diabetes mellitus 2 management Assessment & Plan (01/16/2023 7:05 PM CDT): Previously on glipizide which was discontinued during recent hospitalization. Long and short-acting insulins were started. Blood sugars have been into the 300s. Will increase Lantus insulin from 20 to 25 units and follow-up. 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 Managed with nitroglycerin. Assessment & Plan (01/17/2023 2:31 PM CDT): Denied chest pain. Continue nitroglycerin as needed. Assessment & Plan (01/16/2023 8:13 AM CDT): Denied chest pain. Continue nitroglycerin as needed. 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 Blood pressure normotensive. Continue care plan. Assessment & Plan (01/17/2023 2:36 PM CDT): Images from the original note were not included. Blood pressure normotensive. Continue care plan. Assessment & Plan (01/17/2023 2:03 PM CDT): Images from the original note were not included. Blood pressure normotensive. Continue care plan. Resolved Problems Problem Noted Date Diagnosed Date Resolved Date Wound Ankle Open Subsequent Left 04/25/2023 05/24/2023 Overview (04/25/2023): 04/25/23: Nursing reported left lower calf/ankle redness. Assessment & Plan (05/24/2023 5:14 PM TEACHER OF THE EMOTIONALLY DISTURBED): Stable Assessment & Plan (04/29/2023 7:54 PM TEACHER OF THE EMOTIONALLY DISTURBED): Today, nursing had reported left lower calf and ankle redness with open wound. On assessing the left calf/ankle, there was an open skin area (abrasion) that has no redness, swelling nor drainage. The skin was not warmth to touch and patient denied pain at 0/10 (nurse technical product manager was in attendance during visit). Nursing stated does look better than what it was this morning. They have been cleaning the wound area in apply Mepilex. Since there was no symptoms or evidence of infection on the left lower calf and ankle redness with open wound, nursing was instructed to continue skin check daily and current dressing. Contact [facility] providers if worsening skin condition. Of note, patient's left lower extremity skin was very dry which could cause skin break, therefore, we will start Vanicream application twice daily to the left lower extremity for dry skin. Polypharmacy 04/12/2023 05/24/2023 Overview (04/12/2023): All medications reviewed at least bimonthly for adverse events, interactions, and continued indication/appropriateness. Reduction as able. Personal History Of Infectio us And Parasitic Disease (COVID-19) 01/16/2023 05/24/2023 Overview (01/16/2023): Tested positive for COVID-19 12/27/2022. Treated with remdesivir at [facility]. Anemia 01/16/2023 04/12/2023 Overview (04/12/2023): Lab Results Component Value Date WBC 9.0 04/11/2023 HGB 7.8 (L) 04/11/2023 HCT 24.9 (L) 04/11/2023 MCV 95 04/11/2023 PLT 381 04/11/2023 Assessment & Plan (04/12/2023 3:57 PM TEACHER OF THE EMOTIONALLY DISTURBED): CBC reordered. Denied dizziness, lightheadedness, shortness of breaths or palpitation. Hyperkalemia 01/15/2023 05/24/2023 Overview (04/12/2023): Lab Results Component Value Date NA 134 (L) 04/11/2023 KSERUM 3.9 04/11/2023 CL 97 (L) 04/11/2023 BICARB 32 (H) 04/11/2023 BICARB 26 04/11/2023 CREATININE 1.21 (H) 04/11/2023 EGFRBLKAA >60 06/23/2021 EGFRNONBLKAA 53 (L) 06/23/2021 BUN 19 04/11/2023 ANIONGAP 11 04/11/2023 GLUCOSE 169 (H) 04/11/2023 CALCIUM 8.7 (L) 04/11/2023 Assessment & Plan (04/12/2023 4:05 PM TEACHER OF THE EMOTIONALLY DISTURBED): BMP ordered. Assessment & Plan (01/17/2023 2:35 PM CDT): Hyperkalemia resolved. Assessment & Plan (01/16/2023 8:31 AM CDT): No symptoms of hyperkalemia. We will rechecked BMP. Other Abnormalities Of Gait And Mobility 01/15/2023 05/24/2023 Assessment & Plan (01/16/2023 8:33 AM CDT): Continue PT/OT. Failure Renal Acute (Acute Kidney Injury) 12/28/2022 05/24/2023 Overview (04/12/2023): Lab Results Component Value Date CREATININE 1.21 (H) 04/11/2023 Diabetes Mellitus Type 2 Ulcer Foot 12/10/2022 04/23/2023 Non-ST Elevation Myocardial Infarction 12/09/2022 04/22/2023 Onychomycosis 04/29/2019 05/24/2023 Overview (01/15/2023): Onychomycosis of toenails; Original Code: [id number] Original Codesystem: SNOMED CT Classification: Medical Confirmation [...] Comments Blood Pressure 107/66 06/18/2023 1:10 PM TEACHER OF THE EMOTIONALLY DISTURBED Pulse 78 06/18/2023 1:10 PM TEACHER OF THE EMOTIONALLY DISTURBED Temperature 36.6 ??C (97.8 ??F) 06/18/2023 1:10 PM CS T Respiratory Rate 16 06/18/2023 1:10 PM TEACHER OF THE EMOTIONALLY DISTURBED Oxygen Saturation 95% 06/18/2023 1:10 PM TEACHER OF THE EMOTIONALLY DISTURBED Inhaled Oxygen Concentration - - Weight 75.8 kg (167 lb) 06/18/2023 1:10 PM TEACHER OF THE EMOTIONALLY DISTURBED Height 175.3 cm (5' 9) 04/12/2023 3:21 PM TEACHER OF THE EMOTIONALLY DISTURBED Body Mass Index 24.66 04/12/2023 3:21 PM TEACHER OF THE EMOTIONALLY DISTURBED Plan of Treatment Health Maintenance Due Date Last Done Comments Hepatitis B Vaccines (1 of 3 - Risk 3-dose series) 2001 COVID-19 Vaccine (2022-2 4 season) 2023 03/29/2022, 03/09/2021, 07/24/2020, Additional history exists Fall Risk Screen (Annual) 05/14/2023 Influenza Vaccine (#1) 2024 , 03/09/2021, 03/09/2021, Additional history exists DTaP,Tdap,and Td Vaccines (2 - Td or Tdap) 01/21/2031 01/21/2021, 03/06/2006 Pneumococcal vaccine (65+ years) Completed 01/21/2015, 02/09/2011, 03/06/2006 Zoster Vaccines Completed 01/21/2021, 10/21/2020 Advance Directives For more information, please contact: [phone] * DNR/DNI (Latest Code Status on File) Date Activated Date Inactivated Comments 05/24/2023 6:14 PM * DNR/DNI Date Activated Date Inactivated Comments 04/12/2023 4:11 PM 04/16/2023 7:15 AM Care Teams Manager Steel Relationship Specialty Start Date End Date Elsewhere, Pcp PCP - General Internal Medicine 08/28/23
--- OUTSIDE RECORDS SUMMARY | 2023-12-05 15:35 | XMS_ITS | Clinical Summary ---
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 Test 3 times daily 1 Device 07/09/2020 Active Insulin [place], Disposable, (Novofine 32) 32 gauge x 1/4Indications:2 [...] be used to read blood sugars, follow regular senior care provider directions. 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, unspecified vessel or [...] units daily 30 mL 11 11/21/2023 Active nitroglycerin (NITROSTAT) 0.4 mg sublingual tabletIndications :Coronary artery disease involving belkofski heart without angina pectoris, unspecified vessel or [...] 04/09/2023 4 Discontinu ed(Reorder (E-cancel not sent)) Basaglar KwikPen U-100 Insulin 100 unit/mL (3 [...] 60 units daily 45 mL 5 10/04/2023 4 Discontinu ed(*Availa bility/For mulary change/Cos [...] 11/13/2023 4 Discontinu ed(Reorder (E-cancel not sent)) insulin [...] to 60 units daily 30 mL 11 11/22/2023 4 Discontinu ed(*Availa bility/For mulary change/Cos t [...] associated with type 2 diabetes mellitus 12/09/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 12/09/2022 NSTEMI (non-ST elevated myocardial infarction) 0 12/09/2022 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 11/25/2019 HTN (hypertension) 10/28/2015 Hyperlipidemia LDL goal <70 10/28/2015 Adenomatous colon polyp 04/13/2015 Overview: Colonoscopy 04/2015 polyps repeat in 5 years Colonoscopy 03/2020 polyps, repeat in 5 years Background diabetic retinopathy(362.01) 07/10/19 08 Unspecified hearing loss 07/10/2007 Coronary atherosclerosis of unspecified type of vessel, belkofski or graft Overview: 4 vessel CABG 2001 Lexiscan only for cardiac evaluation - no treadmill Other ill-defined and unknow n causes of morbidity and mortality Impotence of organic origin Resolved Problems Problem Noted Date Diagnosed Date Resolved Date Type 2 diabetes mellitus with complication 11/16/2017 12/22/2022 Heart disease, unspecified 0 07/10/2007 Encounters Date Type Department Care Team Description 12/05/2023 Telephone [facility] [address] [place] [address] VoteMelquiades lewis MD 12/04/2023 Telephone [facility] [address] [place] [address] VotelMelquiades MD insulin clarification orders 11/26/2023 12:57 PM CDT - 11/26/2023 11:59 PM CDT Hospital Encounter [facility] ? [facility] [address] [place] [address] VotelMelquiades MD Oswald, Rebecca L, PT 11/26/2023 Travel 11/22/2023 1:26 PM CDT - 11/22/2023 11:59 PM T Hospital Encounter [facility] ? [facility] [address] [place] [address] VotelMelquiades MD Manuell, Kayla, PT 11/22/2023 Travel 11/22/2023 Refill [facility] [address] [place] [address] VoteMelquiades lewis MD Refill Request (Needs alternative sent in for ~ Insulin Aspart Flexpen Inj 3ml ) 11/20/2023 1:38 PM CDT - 11/20/2023 11:59 PM CDT Hospital Encounter [facility] [address] [place] [address] Votedebbie, MD Edgar Cleary Rebecca L, PT 11/20/2023 Travel 11/19/2023 Telephone [facility] [address] [place] [address] Votel, Melquiades Gray MD Concerns 11/14/2023 Telephone [facility] [address] [place] [address] GunnarteMelquiades lewis MD Prior Authorization (insulin aspart, U-100, (NOVOLOG FLEXPEN) 100 unit/mL (3 mL) pen - APPROVED 11/08/23- until further notice) 11/13/2023 2:00 PM CDT Patient Outreach [facility] [address] [place] [address] Priyanka Hummel home inspector (Review Dexcom report/insulin management) 11/12/2023 12:55 PM CDT - 11/12/2023 11:59 PM CDT Hospital Encounter [facility] [address] [place] [address] GunnarteMelquiades lewis MD Oswald, Rebecca L, PT 11/12/2023 Travel 11/07/2023 Telephone [facility] [address] [place] [address] Melquiades Man MD INSULIN ASPART FLEXPEN 11/06/2023 10:25 AM CDT Office Visit [facility] [address] [place] [address] Melquiades Man MD Medicare ANNUAL (subsequent) Visit (83 year old male); Medication Management (insulin) 11/06/2023 Telephone [facility] [address] [place] [address] Votel, Melquiades Gray MD Form 11/05/2023 12:49 PM CDT - 11/05/2023 11:59 PM CDT Hospital Encounter [facility] [address] [place] [address] Votel, MD Edgar Cleary Rebecca L, PT 11/05/2023 Travel 11/01/2023 1:00 PM CDT - 11/01/2023 11:59 PM CDT Hospital Encounter [facility] [address], [place] [address] Votel, MD Edgar Cleary Rebecca L, PT 11/01/2023 Travel 10/31/2023 Telephone [facility] [address] [place] [address] Votel, Melquiades Gray MD 10/30/2023 10:00 AM CDT Patient Outreach [address] [address] Priyanka Hummel home inspector (Insulin management/education ) 10/29/2023 12:25 PM CDT - 10/29/2023 11:59 PM CDT Hospital Encounter [facility] [address] [address] Votel, MD Edgar Cleary Rebecca L, PT 10/29/2023 Travel 10/25/2023 1:15 PM CDT - 10/25/2023 11:59 PM CDT Hospital Encounter [facility] [address] [place] [address] Votel, MD Edgar Cleary Rebecca L, PT 10/25/2023 Travel 10/23/2023 Telephone [facility] [address] [place] [address] Melquiades Man MD 10/22/2023 1:21 PM CDT - 10/22/2023 11:59 PM CDT Hospital Encounter [facility] ? [facility] [address] [place] [address] Melquiades Man MD Oswald, Rebecca L, PT 10/22/2023 Travel 10/18/2023 1:45 PM CDT - 10/18/2023 11:59 PM CDT Hospital Encounter [facility] ? [facility] [address] [place] [address] Melquiades Man MD Manuell, Kayla, PT 10/18/2023 Travel 10/17/2023 Telephone [facility] [address] [place] [address] Melquiades Man MD Outside Order (regarding frequency of home health visits) 10/15/2023 12:55 PM CDT - 10/15/2023 11:59 PM CDT [facility] ? [facility] [address] [place] [address] Melquiades Man MD Tonsfeldt, Isabelle, PT 10/15/2023 Travel 10/11/2023 12:51 PM CDT - 10/11/2023 11:59 PM CDT Hospital Encounter [facility] ? [facility] [address] [address] Melquiades Man MD Tonsfeldt, Isabelle, PT 10/11/2023 Travel 10/11/2023 Telephone [facility] [address] [place] [address] Melquiades Man MD 10/09/2023 Telephone [facility] [address] [place] [address] VotelMelquiades MD Form 10/05/2023 Transcribe Orders [facility] [address] [place] [address] Isatu Hanley MD 10/04/2023 1:42 PM CDT - 10/04/2023 11:59 PM CDT Hospital Encounter [facility] [address] [place] [address] VoteMelquiades lewis MD Tonsfeldt, Isabelle, PT 10/04/2023 9:35 AM CDT Office Visit [facility] [address] [place] [address] Rachel Sauceda, DO Diabetes 10/04/2023 Telephone [facility] [address] [place] [address] Rachel Sauceda, DO Medication Management 10/04/2023 Travel 10/03/2023 Refill [facility] [address] [facility] [address] [place] [address] Shade Manuel MD Refill Request (Farxiga) 10/01/2023 12:58 PM CDT - 10/01/2023 11:59 PM CDT Hospital Encounter [facility] [address] [place] [address] GunnarteMelquiades lewis MD Tonsfeldt, Isabelle, PT 10/01/2023 Travel 09/30/2023 Refill [facility] [address] [facility] [address] [place] [address] Shade Manuel MD Refill Request (Dapagliflozin Propanediol) 09/27/2023 12:56 PM CDT - 09/27/2023 11:59 PM CDT Hospital Encounter [facility] ? [facility] [address] [place] [address] Melquiades Man MD Tonsfeldt, Isabelle, PT 09/27/2023 Travel 09/24/2023 12:57 PM CDT - 09/24/2023 11:59 PM CDT [facility] ? [facility] [address] [place] [address] Melquiades Man MD Tonsfeldt, Isabelle, PT 09/24/2023 Travel 09/20/2023 11:45 AM CDT - 09/20/2023 11:59 PM CDT Hospital Encounter [facility] ? [facility] [address] [place] [address] Melquiades Man MD Tonsfeldt, Isabelle, PT 09/20/2023 Travel 09/19/2023 Telephone [facility] [address] [place] [address] Melquiades Man MD 09/17/2023 Telephone [facility] [address] [place] [address] Melquiades Man MD orders (wound care 2 times per week) 09/13/2023 1:00 PM CDT - 09/13/2023 11:59 PM CDT Hospital Encounter [facility] [address] [place] [address] Melquiades Man MD Tonsfeldt, Isabelle, PT 09/13/2023 Travel 09/10/2023 12:53 PM CDT - 09/10/2023 11:59 PM CDT Hospital Encounter [facility] ? [facility] [address] [place] [address] Votel, MD Lesly Cleary Isabelle, PT 09/10/2023 Travel 09/06/2023 9:27 AM CDT - 09/06/2023 11:59 PM CDT Hospital Encounter [facility] [address] [place] [address] Votel, MD Lesly Cleary Isabelle, PT 09/06/2023 Travel from Last 3 Months Immunizations Name Administration Dates Next Due COVID-19 vaccine (Moderna 100mcg/0.5mL) PF, MDV 03/09/2021 COVID-19 vaccine (Moderna 50 mcg/0.5mL) 12YO+ BIVALENT PF, MDV 03/29/2022 COVID-19 vaccine (Pfizer-Bio NTech 30mcg/0.3mL) PF, MDV 03/09/2021,07/24/2020,07/03/2020 COVID-19 vaccine Comirnaty (Pfizer-BioNTech 30mcg/0.3mL) 12YO+ [id number] Formula PF, SDV, PFS 03/05/2023 Influenza Virus, [...] Brother kidney problems Heart Disease Father 1st NV at 65 d 77 yo CHF Diabetes Mother Heart Disease Mother d 64 yo NV Genetic Other There is a posi tive [...] CDT Respiratory Rate 24 05/03/2023 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 Oxygen Saturation 99% 11/06/2023 10: 30 AM CDT Inhaled Oxygen Concentration - - Weight 71.7 kg (158 lb) 10/04/2023 9:26 AM CDT patient reported Height 175.3 cm (5' 9.02) 07/27/2023 1 1:51 AM CDT Body Mass Index 23.32 07/27/2023 11:51 AM CDT Plan of Treatment Upcoming Encounters Date Type Department Care Team (Late st Contact Info) Description 12/06/2023 1:00 PM CDT Appointment [facility] [address] [place] [address] Farheen Puentes, PT [address] [address] 12/10/2023 1:45 PM CDT Appointment [facility] [address] [facility] [place] [address] Farheen Puentes, PT [address] [place] [address] 12/13/2023 1:45 PM CDT Appointment [facility] [address] [place] [address] Farheen Puentes, PT [address], [place] [address] 12/17/2023 1:00 PM CDT Appointment [facility] [address] [facility] [place] [address] Farheen Puentes, PT [address] [place] [address] 12/20/2023 11:00 AM CDT Patient Outreach [address] [facility] [facility] [address] Priyanka Hummel, RN [address] [facility] [place] [address] 12/20/2023 1:00 PM CDT App[facility]ment [facility] [address] [place] [address] Farheen Puentes, PT [address] [place] [address] 12/24/2023 1:00 PM CDT Appointment [facility] [address] [place] [address] Farheen Puentes, PT [address] [place] [address] 12/27/2023 1:00 PM CDT [facility] [address] [place] [address] Farheen Puentes, PT [address] [place] [address] 12/31/2023 1:00 PM CDT [facility] [address] [place] [address] Jasmin Hernández, PT [address] [place] [address] 01/01/2024 10:50 AM CDT Office Visit [address] [address] Melquiades Man MD [address] [place] [address] 01/02/2024 1:45 PM CDT Appointment [facility] [address] [place] [address] Farheen Puentes, PT [address] [place] [address] 01/08/2024 1:30 PM CDT Office Visit [address] [place] [address] Shade Manuel MD [address] [facility] [address] [place] [address] Health Maintenance Due Date Last Done Comments [...] 11.0 thou/cu mm 11/06/2023 12:44 PM CDT [facility] RED BLOOD COUNT 3.98(L) 4.30 - 5.90 mil/cu mm 11/06/2023 12:44 PM CDT [facility] HEMOGLOBIN 12.0(L) 13.5 - 17.5 g/dL 11/06/2023 12:44 PM CDT [facility] HEMATOCRIT 36.7(L) 37.0 - 53.0 % 11/06/2023 12:44 PM CDT [facility] MCV 92 80 - 100 fL 11/06/2023 12:44 PM CDT [facility] MCH 30.2 26.0 - 34.0 pg 11/06/2023 12:44 PM CDT [facility] MCHC 32.7 32.0 - 36.0 g/dL 11/06/2023 12:44 PM CDT [facility] RDW 15.9(H) 11.5 - 15.5 % 11/06/2023 12:44 PM CDT [facility] PLATELET COUNT 273 140 - 440 thou/cu mm 11/06/2023 12:44 PM CDT [facility] MPV 9.6 6.5 - 11.0 fL 11/06/2023 12:44 PM CDT [facility] % NEUT 69.0 % 11/06/2023 12:44 PM CDT [facility] % LYMPH 18.8 % 11/06/2023 12:44 PM CDT [facility] % MONO 7.6 % 11/06/2023 12:44 PM CDT [facility] % EOS 3.8 % 11/06/2023 12:44 PM CDT [facility] % BASO 0.8 % 11/06/2023 12:44 PM CDT [facility] ABSOLUTE NEUTROPHILS 5.9 1.7 - 7.0 thou/cu mm 11/06/2023 12:44 PM CDT [facility] ABSOLUTE LYMPHOCYTES 1.6 0.9 - 2.9 thou/cu mm 11/06/2023 12:44 PM CDT [facility] ABSOLUTE MONOCYTES 0.6 <0.9 thou/cu mm 11/06/2023 12:44 PM CDT [facility] ABSOLUTE EOSINOPHILS 0.3 <0.5 thou/cu mm 11/06/2023 12:44 PM CDT [facility] ABSOLUTE BASOPHILS 0.1 <0.3 thou/cu mm 11/06/2023 12:44 PM CDT [facility] Blood BLOOD SPECIMEN / Unknown Butterfly / Unknown 11/06/2023 12:33 PM CDT 11/06/2023 12:37 PM CDT Melquiades Man MD HEMATOLOGY [facility] [address] [place] [address], [place] [phone] * LIPID PANEL W REFLEX MEASURED LDL (11/06/2023 12:33 PM CDT) CHOLESTEROL,TOTAL 156 100 - 199 mg/dL 11/07/2023 1:57 AM CDT [facility] Comment: Cholesterol, Total Reference Ranges Desirable <200 mg/dL Borderline 200-239 mg/dL High >=240 mg/dL TRIGLYCERIDES 124 <150 mg/dL 11/07/2023 1:57 AM CDT [facility] HDL CHOLESTEROL 56 >40 mg/dL 1:57 AM CDT [facility] NON-HDL CHOLESTEROL 100 <145 mg/dl 11/07/2023 1:57 AM CDT [facility] CHOL/HDL RATIO 2.79 <4.50 11/07/2023 1:57 AM CDT [facility] LDL CHOLESTEROL 75 <=130 mg/dL 11/07/2023 1:57 AM CDT [facility] VLDL CHOLESTEROL 25 <=30 mg/dL 11/07/2023 1:57 AM CDT [facility] PROVIDER ORDERED STATUS RANDOM 11/07/2023 1:57 AM CDT [facility] Blood BLOOD SPECIMEN / Unknown Butterfly / Unknown 11/06/2023 12:33 PM CDT 11/06/2023 12:37 PM CDT Melquiades Man MD [facility] [address] [place] [address], [place] * TSH (11/06/2023 12:33 PM CDT) TSH 2.24 0.27 - 4.20 uIU/mL 11/07/2023 1:57 AM CDT [facility] Blood BLOOD SPECIMEN / Unknown Butterfly / Unknown 11/06/2023 12:33 PM CDT 11/06/2023 12:37 PM CDT Narrative [facility] - 11/07/2023 1:57 AM CDT In Adults, TSH values between 5.00 and 10.00 uIU/ml do not necessarily indicate the presence of Hypothyroidism. Correlation with clinical findings such as presence of goiter and/or Thyroperoxidase (TPO) Antibody may be helpful. For more information please refer to RONNIE 2004; 291: 228-238. Melquiades Man MD CHEMISTRY Performing Organization Address City/[facility]/ZIP Co de Phone Number [facility] [address] [place] [address], * ALT (SGPT) (11/06/2023 12:33 PM CDT) ALT (SGPT) 21 10 - 50 IU/L 11/07/2023 1:57 AM CDT [facility] Blood BLOOD SPECIMEN / Unknown Butterfly / Unknown 11/06/2023 12:33 PM CDT 11/06/2023 12:37 PM CDT Melquiades Man MD CHEMISTRY Performing Organization Address [facility] Co de Phone Number [facility] [address] [place] [address], * (ABNORMAL) BASIC METABOLIC PANEL (11/06/2023 12:33 PM CDT) SODIUM 139 136 - 145 mmol/L 11/07/2023 1:57 AM CDT [facility] POTASSIUM 4.8 3.5 - 5.1 mmol/L 11/07/2023 1:57 AM CDT [facility] CHLORIDE 102 98 - 107 mmol/L 11/07/2023 1:57 AM CDT [facility] CO2,TOTAL 23 22 - 29 mmol/L 11/07/2023 1:57 AM CDT [facility] ANION GAP 14 5 - 18 11/07/2023 1:57 AM CDT [facility] GLUCOSE 137(H) 70 - 99 mg/dL 11/07/2023 1:57 AM CDT [facility] CALCIUM 10.0 8.8 - 10.2 mg/dL 11/07/2023 1:57 AM CDT [facility] BUN 42(H) 8 - 23 mg/dL 11/07/2023 1:57 AM CDT [facility] CREATININE 1.65(H) 0.70 - 1.20 mg/dL 11/07/2023 1:57 AM CDT [facility] BUN/CREAT RATIO 25(H) 10 - 20 1:57 AM CDT [facility] eGFR 41(L) >90 mL/min/1.7 3m2 11/07/2023 1:57 AM CDT [facility] Comment:As of 2021, eG [...] CDT Melquiades Man MD [facility] [address] [place] [address], * (ABNORMAL) HEMOGLOBIN A1C MONITORING (POCT) (10/04/2023 9:44 AM CDT) HEMOGLOBIN A1C MONITORING (POCT) 11.6(H) <=6.4 % 10/04/2023 9:53 AM CDT [facility] Blood BLOOD SPECIMEN / Unknown Venipuncture / Unknown 10/04/2023 9:44 AM CDT 10/04/2023 9:44 AM CDT Narrative [facility] - 10/04/2023 9:53 AM CDT ? [...] Anemias, Splenectomy ? 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 [address] Hameed [facility] [place] [address] Cardiovascular Disease 01/24/23
--- OUTSIDE RECORDS SUMMARY | 2023-12-05 15:35 | XMS_ITS | Data Portability ---
Author Organization [facility] Dominick gy, [facility] Address [address] [place] [address] Care Team Providers Care Inflatable Buildings Laminator Name Role Phone VOTELPARVEZ Primary Care Provider Assessment No assessment recorded. [...] Address Organization Details Last Updated DateTime 11/28/2023 34791.78 g 23 kg/m2 177.8 cm Bennett lainezo [facility] 11/28/2023 14:16:54 Social History Question Answer Notes LastModified by Organizat ion Details LastModified Time Tobacco Smoking Status [facility] 11/28/2023 14:22:10 What Is Your Level [...] adjuvanted, trivalent, PF 01/10/2018 completed Bennett winn, [facility] 11/28/2023 14:17:02 Influenza, adjuvanted, trivalent, PF 02/12/2020 completed Bennett Mg-Odilia winn, [facility] 11/28/2023 14:17:02 Influenza, high-dose, quadrivalent, PF 03/09/2021 completed Bennett Mg-Odilia winn, [facility] 11/28/2023 14:17:02 Influenza, high-dose, quadrivalent, PF 04/05/2022 completed Bennett winn, [facility] 11/28/2023 14:17:02 Influenza, adjuvanted, quadrivalent, PF 03/05/2023 completed Bennett Mg-Andriaer o null, [facility] 11/28/2023 14:17:02 COVID-19, mRNA, LNP-S, PF, 100 mcg/0.5mL dose or 50 mcg/0.25mL dose 03/09/2021 completed Bennett Duncanal-Valer o null, [facility] 11/28/2023 14:17:02 COVID-19, mRNA, LNP-S, PF, 30 mcg/0.3 mL dose 07/03/2020 completed Bennett Mg-Valer o null, [facility] 11/28/2023 14:17:02 COVID-19, mRNA, LNP-S, PF, 30 mcg/0.3 mL dose 07/24/2020 completed Bennett Mg-Andriaer o null, [facility] 11/28/2023 14:17:02 COVID-19, mRNA, LNP-S, bivalent, PF, 50 mcg/0.5 mL or 25mcg/0.25 mL dose 03/29/2022 completed Bennett Mg-Valer o null, [facility] 11/28/2023 14:17:02 RSV, bivalent, protein subunit RSVpreF, diluent reconstituted, 0.5 mL, PF 03/05/2023 completed Bennett Mg-Odilia o null, [facility] 11/28/2023 14:17:02 COVID-19, mRNA, LNP-S, PF, estrella-sucrose, 30 mcg/0.3 mL 03/05/2023 completed Bennett Mg-Valer o null, [facility] 11/28/2023 14:17:02 pneumococcal polysaccharide PPV23 02/09/2011 completed Bennett Duncanal-Valer o null, [facility] 11/28/2023 14:17:02 pneumococcal polysaccharide PPV23 03/06/2006 completed Bennett Mg-Andriaer o null, [facility] 11/28/2023 14:17:02 influenza, unspecified formulation 03/15/2017 completed Milraymoni Mg-Valer o null, [facility] 11/28/2023 14:17:02 Pneumococcal conjugate PCV 13 01/21/2015 completed [facility] Mg-Valer o null, [facility] 11/28/2023 14:17:02 Influenza, high-dose, trivalent, PF 01/21/2015 completed [facility] Mg-Valer o null, [facility] 11/28/2023 14:17:02 Influenza, high-dose, trivalent, PF 03/07/2019 completed [facility] Mg-Valer o null, [facility] 11/28/2023 14:17:02 Influenza, split virus, trivalent, preservative 01/30/[address] [facility] Mg-Valer o null, [facility] 11/28/2023 14:17:02 Influenza, split virus, trivalent, preservative 02/26/2003 completed [facility] Mg-Valer o null, [facility] 11/28/2023 14:17:02 Influenza, split virus, trivalent, preservative 03/01/2004 completed [facility] Mg-Valer o null, [facility] 11/28/2023 14:17:02 Influenza, split virus, trivalent, preservative 03/05/2007 completed [facility] Mg-Valer o null, [facility] 11/28/2023 14:17:02 Influenza, split virus, trivalent, preservative 03/06/2006 [facility], [facility] 11/28/2023 14:17:02 Influenza, split virus, trivalent, preservative 03/09/2005 completed [facility] Mg-Valer o null, [facility] 11/28/2023 14:17:03 Influenza, split virus, trivalent, preservative 03/09/2008 [facility], [facility] 11/28/2023 14:17:03 Influenza, split virus, trivalent, preservative 03/13/2012 [facility] 11/28/2023 14:17:03 Influenza, split virus, trivalent, preservative 04/28/2010 completed Jeff Mg-Valer o null, [facility] 11/28/2023 14:17:03 Influenza, split virus, trivalent, PF 02/09/2011 [facility], [facility] 11/28/2023 14:17:03 Influenza, split virus, trivalent, PF 04/05/2009 completed [facility] Mg-Valer o null, [facility] 11/28/2023 14:17:03 Td (adult), 5 Lf tetanus toxoid, preservative free, adsorbed 03/06/2006 [facility], [facility] 11/28/2023 14:17:03 Past Encounters Encounter ID Performer Location Encounter Start Date Encounter Closed Date Diagnosis/Indication Diagnosis SNOMED-CT Code [id number] Roberto Carballo MD [facility] [address] [place] [id number] 11/28/2023 13:46:09 12/04/2023 16:43:22 Phimosis [id number] Health Concerns Section Related Observation LastModified by Organization Detai ls LastModified Time None Recorded Concern Status LastModified by Organization Details LastModified Time None Recorded Advance Directives Directive None Recorded Payers Encounter Date Sequence Insurance Name Policy Number Policy Cherry Covered Member ID Cherry Member ID Guarantor Name 11/28/2023 1 [place] MEDICARE COST [id number] Rosalina Bowers [id number] Rosalina Bowers Notes Date Note Type Note [...] (03/05/07) - 1.40 (04/28/10) Roberto Carballo MD [address] [place] [address],[place] [address], [place], [address], [facility] 11/30/2023 11:21:51
--- OUTSIDE RECORDS SUMMARY | 2023-12-05 15:36 | XMS_ITS | Referral Summary ---
Author Organization [facility] Address [address] [place] [address] Care Team Providers Care Cart Pusher Name Role Phone Elsewhere, Pcp Primary Care Provider Unavailabl e Source Comments Patient records contain information from all sites at [facility]. For routine questions regarding patient records, call [phone] during business hours, M-F 8:00 AM - 5:00 PM Central Time. Record requests for emergency care only can be directed to [phone] at any time.[facility] Allergies No known active allergies [...] guaze. Assessment & Plan (06/15/2023 4:18 PM DIE DESIGNER): The wound bed is clean. A thin layer of silver stat will be applied with a gauze. Change daily. 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 Left Heel: Area continues to improve. Wound measures [id number]. Edges well defined, attached and 100% re-epithelialized tissues. Granulation tissue is observed along the lining of the edges under the bed of slough/eschar. Eschar is soft but not mushy. Wound bed is still approx 95% or more of slough/eschar. Scant drainage with dressing change. Resident tolerated cares without any concerns. New wound orders as follows: Assessment & Plan (06/15/2023 4:10 PM DIE DESIGNER): 1: Gently cleanse area with NS. Pat dry. 2. Skin prep to gonsalo-wound. 3. Santyl to wound bed only. 4. Place gauze over wound. 5. cover with island dressing. 6. Change dressing daily. He may be discharged to home with home nursing for wound care . Assessment & Plan (06/01/2023 2:33 PM DIE DESIGNER): Continue wound care and have [facility] evaluate in one week. Dementia 05/20/2023 Overview (05/24/2023): No documented dementia or behaviors Assessment & Plan (05/24/2023 5:57 PM DIE DESIGNER): He has low hearing which could contribute to him not understanding Assessment & Plan (05/20/2023 4:20 PM DIE DESIGNER): Although initial BIMS testing scored 14, he has had episodes of what seems to be sundowning with strong suspicion of underlying dementia. Will have OT further evaluate. Hyperglycemia 04/22/2023 Overview (04/22/2023): Prior to recent hospitalization, insulin glargine dose was 25 units daily and short-acting insulin 10 units with meals. Assessment & Plan (05/24/2023 6:00 PM DIE DESIGNER): A1C 7.2 He will follow up with his PCP in [place] Assessment & Plan (04/22/2023 8:28 PM DIE DESIGNER): His appetite has been poor and he has been getting much less insulin than he is used to. His sugars however have been high. Will gradually increase mealtime insulin to 7 units. Previously on 10 units with meals. Custodial (Current) Anticoagulant Treatment 08/2022 Overview (04/16/2023): On [...] side. 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 He will need a standard wheelchair Mr. Woods was admitted to [facility] April 10 following BK right lower extremity. [...] site Assessment & Plan (04/16/2023 7:55 PM DIE DESIGNER): Pain is well controlled. Stump care consists of washing with normal saline and dry. Cover with dry gauze or ABD b.i.d. he is wearing the knee brace to maintain extension in his working with therapies. He has follow-up with vascular surgery 05/11/2023. Assessment & Plan (04/12/2023 4:53 PM DIE DESIGNER): Patient and mentioned he is doing well [...] 75mcg. Assessment & Plan (06/05/2023 9:25 PM DIE DESIGNER): TSH value improved compared to prior value of 16.0 a month ago. Resident /nursing denied symptoms of hypothyroidism. Last T4 was 0.92 in April 2023. vice president media relations confirmed levothyroxine is given every morning (6am) without other medications. Therefore, we will increase levothyroxine 50mcg to 75mcg and rechecked TSH in 6 weeks. Nursing instructed to continue monitoring for symptoms of hypothyroidism and contact [facility] provider if any concerns. Assessment & Plan (05/24/2023 5:24 PM DIE DESIGNER): Increase levothyroxine to 50 mcg daily. USP may give two 25 mcg tablets to equal 50 mcg. He will be discharging in a week Assessment & Plan (04/23/2023 12:56 PM DIE DESIGNER): TSH will be done. He is currently on levothyroxine 25 mcg daily. Dose will need to be adjusted if TSH is elevated. Assessment & Plan (04/16/2023 7:56 PM DIE DESIGNER): Recheck TSH mid April. Assessment & Plan (04/12/2023 4:45 PM DIE DESIGNER): Continue levothyroxine. TSH reordered. 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 Assessment & Plan (04/12/2023 4:08 PM DIE DESIGNER): Plans to discharge back home. Patient remains [...] status Assessment & Plan (05/24/2023 5:15 PM DIE DESIGNER): He will be full code Assessment & Plan (01/17/2023 2:30 PM CDT): Continue full code status Hyperlipidemia 01/16/2023 Overview (05/24/2023): On atorvastatin Assessment & Plan (05/24/2023 6:01 PM DIE DESIGNER): Stay on statin Assessment & Plan (01/17/2023 2:35 PM CDT): Continue atorvastatin Assessment & Plan (01/17/2023 2:01 PM CDT): Continue atorvastatin Weakness General 01/16/2023 Overview (01/16/2023): This is multifactorial and related to recent hospitalizations and multiple comorbidities. Assessment & Plan (06/05/2023 9:26 PM DIE DESIGNER): Denied weakness. We will continue therapy. Assessment & Plan (05/24/2023 6:05 PM DIE DESIGNER): He is getting stronger with therapy. He will continue therapy when he gets his prosthesis. He will have a wheelchair upon discharge. Assessment & Plan (04/12/2023 4:09 PM DIE DESIGNER): Verbalized improvement with weakness. We will continue [...] 04/11/2023 Assessment & Plan (04/12/2023 3:58 PM DIE DESIGNER): Stable. Denied dizziness, lightheadedness, shortness of breaths and palpitation. Assessment & Plan (01/17/2023 2:30 PM CDT): Stable. Assessment & Plan (01/17/2023 1:58 PM CDT): Stable. Assessment & Plan (01/16/2023 7:16 PM CDT): Most recent hemoglobin 9.3. 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 Assessment & Plan (05/24/2023 5:52 PM DIE DESIGNER): Stable on current meds Assessment & Plan (04/23/2023 1:02 PM DIE DESIGNER): BNAP 31,578 on 04/16/23. Dr. Gerardo increased furosemide to 40 mg bid and added spironolactone 25 mg daily. Weight today in [place] was 174 lb. No edema noted in left leg. No dyspnea. On O2 per N/C continuous. No change in medications until renal function results are available. Assessment & Plan (04/16/2023 7:41 PM DIE DESIGNER): He had multiple medication changes during hospitalization including discontinuation of spironolactone and Entresto. Farxiga is being held. Metoprolol and furosemide doses were decreased. Assessment & Plan (04/12/2023 4:01 PM DIE DESIGNER): No admission weight yet. Nursing to check [...] 12/22/2022 Assessment & Plan (04/22/2023 8:26 PM DIE DESIGNER): Pro BN AP earlier today greater than [...] Apixaban Assessment & Plan (05/24/2023 5:53 PM DIE DESIGNER): prison anticoagulation on apixaban Assessment & Plan (04/23/2023 1:03 PM DIE DESIGNER): Ventricular rate controlled today Assessment & Plan (04/12/2023 3:59 PM DIE DESIGNER): HR well controlled ranging from 82-85. Continue care plan. Assessment & Plan (01/17/2023 2:31 PM CDT): HR well controlled ranging from 64-99. Continue care plan. Assessment & Plan (01/16/2023 8:24 AM CDT): HR well controlled. Continue care plan. Reel Winder Use Of Insulin Active 12/09/2022 Overview (01/16/2023): On insulin glargine and aspart started during hospitalization December 2022. Assessment & Plan (05/24/2023 5:20 PM DIE DESIGNER): Nurse reports he is nonadherent to his [...] daily Assessment & Plan (06/07/2023 2:51 PM DIE DESIGNER): Blood sugars have been elevated due to [...] hypoglycemia. Assessment & Plan (05/29/2023 7:56 PM DIE DESIGNER): Patient's blood sugar continued to be on [...] possible. Assessment & Plan (05/24/2023 5:59 PM DIE DESIGNER): Insulin dependent not always compliant with diet. Glargine will be increased to 17 units. Assessment & Plan (05/22/2023 6:43 PM DIE DESIGNER): Blood sugar continued to be elevated mostly [...] 3 times daily with meals. Follow-up with [facility] next week. Dietitian/dietary to visit with patient and to discuss food options. Assessment & Plan (05/20/2023 4:22 PM DIE DESIGNER): Recent blood sugars in the SNF setting have been elevated. Short and long-acting insulin doses have changed significantly since admission. Will have him follow- up with [facility] for further review of blood sugars. Assessment & Plan (04/23/2023 1:04 PM DIE DESIGNER): Blood sugars not controlled. Increase Lantus to 14 units from 12. Assessment & Plan (04/16/2023 7:42 PM DIE DESIGNER): Was previously on glipizide and higher doses of mealtime aspart. Blood sugars are being checked 4 times daily. May need insulin readjusted. Assessment & Plan (04/12/2023 4:04 PM DIE DESIGNER): Blood sugars have been I< 200s. Currently [...] to 25 units and follow-up. 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 Assessment & Plan (05/24/2023 5:14 PM DIE DESIGNER): Stable Assessment & Plan (04/29/2023 7:54 PM DIE DESIGNER): Today, nursing had reported left lower calf and ankle redness with open wound. On assessing the left calf/ankle, there was an open skin area (abrasion) that has no redness, swelling nor drainage. The skin was not warmth to touch and patient denied pain at 0/10 (nurse housekeeping manager was in attendance during visit). Nursing stated does look better than what it was this morning. They have been cleaning the wound area in apply Mepilex. Since there was no symptoms or evidence of infection on the left lower calf and ankle redness with open wound, nursing was instructed to continue skin check daily and current dressing. Contact [facility] providers if worsening skin condition. Of note, [...] for COVID-19 12/27/2022. Treated with remdesivir at [facility]. Anemia 01/16/2023 04/12/2023 Overview (04/12/2023): Lab Results Component Value Date WBC 9.0 04/11/2023 HGB 7.8 (L) 04/11/2023 HCT 24.9 (L) 04/11/2023 MCV 95 04/11/2023 PLT 381 04/11/2023 Assessment & Plan (04/12/2023 3:57 PM DIE DESIGNER): CBC reordered. Denied dizziness, lightheadedness, shortness of [...] 04/11/2023 Assessment & Plan (04/12/2023 4:05 PM DIE DESIGNER): BMP ordered. Assessment & Plan (01/17/2023 2:35 [...] Overview (01/15/2023): Onychomycosis of toenails; Original Code: [id number] Original Codesystem: SNOMED CT Classification: Medical Confirmation [...] Comments Blood Pressure 107/66 06/18/2023 1:10 PM DIE DESIGNER Pulse 78 06/18/2023 1:10 PM DIE DESIGNER Temperature 36.6 ??C (97.8 ??F) 06/18/2023 1:10 PM CS T Respiratory Rate 16 06/18/2023 1:10 PM DIE DESIGNER Oxygen Saturation 95% 06/18/2023 1:10 PM DIE DESIGNER Inhaled Oxygen Concentration - - Weight 75.8 kg (167 lb) 06/18/2023 1:10 PM DIE DESIGNER Height 175.3 cm (5' 9) 04/12/2023 3:21 PM DIE DESIGNER Body Mass Index 24.66 04/12/2023 3:21 PM DIE DESIGNER Plan of Treatment Not on file Advance Directives For more information, please contact: [phone] * DNR/DNI (Latest Code Status on File) Date Activated Date Inactivated Comments 05/24/2023 6:14 PM * DNR/DNI Date Activated Date Inactivated Comments 04/12/2023 4:11 PM 04/16/2023 7:15 AM Care Teams Cart Pusher Relationship Specialty Start Date End Date Elsewhere, Pcp PCP - General Internal Medicine 08/28/23
--- OUTSIDE RECORDS SUMMARY | 2023-12-05 15:36 | XMS_ITS ---
Author Organization [facility] Address [address] [place] [address] Care Team Providers Care Cellophaner Name Role Phone Unavailable Unavailable Unavailable Surgery Details Not on file Complications Check Surgery Details section. Procedure Estimated Blood Loss Check Surgery Details section. Procedure Findings Check Surgery Details section. Procedure Specimens Taken Check Surgery Details section.
== END 2023-12-05 15:33 | disposition home or self-care (01) ==
LOC: WOUND 15:32
PROVIDERS: PCP Family Medicine; Visit Provider Physician Assistant
DX: E11.621 Type 2 diabetes mellitus with foot ulcer (principal); L97.422 Non-pressure chronic ulcer of left heel and midfoot with fat layer exposed; Z79.4 Long term (current) use of insulin; Z79.84 Long term (current) use of oral hypoglycemic drugs
CPT/HCPCS: 97597

== ENCOUNTER 2023-12-12 08:57 | Outpatient (CLI) | payer MEDICARE, BC, SELFPAY ==
--- OUTSIDE RECORDS SUMMARY | 2023-12-12 09:02 | XMS_ITS | Data Portability ---
Author Organization [facility] Dominick gy, [facility] Address [address] [place] [address] Care Team Providers Care Office Messenger Helper Name Role Phone VOTELPARVEZ Primary Care Provider [phone] Assessment No assessment recorded. Plan of Treatment [...] Address Organization Details Last Updated DateTime 11/28/2023 02789.78 g 23 kg/m2 177.8 cm Bennett lainezo [facility] 11/28/2023 14:16:54 Social History Question Answer Notes LastModified by Organizat ion Details LastModified Time Tobacco Smoking Status [facility] 11/28/2023 14:22:10 [...] Hospital 11/28/2023 14:17:02 COVID-19, mRNA, LNP-S, PF, setrella-sucrose, 30 mcg/0.3 mL 03/05/2023 completed Bennett Mg-Valer o null, [facility] 11/28/2023 14:17:02 pneumococcal polysaccharide PPV23 02/09/2011 completed Bennett Duncanal-Valer o null, [facility] 11/28/2023 14:17:02 pneumococcal polysaccharide PPV23 03/06/2006 completed Bennett Mg-Andriaer o null, [facility] 11/28/2023 14:17:02 influenza, unspecified formulation 03/15/2017 completed Milraymoni Mg-Valer o null, [facility] 11/28/2023 14:17:02 Pneumococcal conjugate PCV 13 01/21/2015 completed [facility] Mg-Valer o null, [facility] 11/28/2023 14:17:02 Influenza, high-dose, trivalent, PF 01/21/2015 completed [facility] Mg-Valer o null, [facility] 11/28/2023 14:17:02 Influenza, high-dose, trivalent, PF 03/07/2019 completed [facility] Mg-Valer o null, [facility] 11/28/2023 14:17:02 Influenza, split virus, trivalent, preservative 01/30/2013 [facility], [facility] 11/28/2023 14:17:02 Influenza, split virus, trivalent, preservative 02/26/2003 completed [facility] Mg-Valer o null, [facility] 11/28/2023 14:17:02 Influenza, split virus, trivalent, preservative 03/01/2004 completed [facility] Mg-Valer o null, [facility] 11/28/2023 14:17:02 Influenza, split virus, trivalent, preservative 03/05/2007 completed [facility] Mg-Valer o null, [facility] 11/28/2023 14:17:02 Influenza, split virus, trivalent, preservative 03/06/2006 [facility], [facility] 11/28/2023 14:17:02 Influenza, split virus, trivalent, preservative 03/09/2005 completed [facility] Mg-Valer o null, [facility] 11/28/2023 14:17:03 Influenza, split virus, trivalent, preservative 03/09/2008 [facility], [facility] 11/28/2023 14:17:03 Influenza, split virus, trivalent, preservative 03/13/2012 [facility], [facility] 11/28/2023 14:17:03 Influenza, split virus, trivalent, preservative 04/28/2010 completed Jeff Mg-Valer o null, [facility] 11/28/2023 14:17:03 Influenza, split virus, trivalent, PF 02/09/[address] [facility] null, [facility] 11/28/2023 14:17:03 Influenza, split virus, trivalent, PF 04/05/2009 completed [facility] Mg-Valer o null, [facility] 11/28/2023 14:17:03 Td (adult), 5 Lf tetanus toxoid, preservative free, adsorbed 03/06/2006 [facility] null, [facility] 11/28/2023 14:17:03 Past Encounters Encounter ID Performer Location Encounter Start Date Encounter Closed Date Diagnosis/Indication Diagnosis SNOMED-CT Code [id number] Roberto Carballo MD [facility] [address] [place] [address] 11/28/2023 13:46:09 12/04/2023 16:43:22 Phimosis [id number] Health Concerns Section Related Observation LastModified by Organization Detai ls LastModified Time None Recorded Concern Status LastModified by Organization Details LastModified Time None Recorded Advance Directives Directive None Recorded Payers Encounter Date Sequence Insurance Name Policy Number Policy Cherry Covered Member ID Cherry Member ID Guarantor Name 11/28/2023 1 [place] COST [id number] Rosalina Bowers [id number] Rosalina Bowers Notes Date Note Type Note [...] (03/05/07) - 1.40 (04/28/10) Roberto Carballo MD [address] [place] [address],[place] [address], [place], [address], [facility] 11/30/2023 11:21:51
--- OUTSIDE RECORDS SUMMARY | 2023-12-12 09:02 | XMS_ITS | Continuity of Care Document ---
Author Name [facility] Organization [facility] Care Team Providers Care Stock Raiser Name Role Phone [facility] Unavailable Unavailable Problems Combined list of problems from Department of Defense and Veterans Affairs facilities. It does not include entries that were removed or entered in error. Problem Status Onset Date Problem Type Date of Resolution Comments Source Exposure to potentially hazardous substance ([facility] [id number]) Active 07/20/19 24 Condition Jul 20, 2023 Entered By: MECHELLE DEMPSEY [facility]: [facility] T[facility] Documentation Initiative [facility] CAD - Coronary Artery Disease ([facility] [id number]) Active Condition [facility] ([facility]) CHF - Congestive Heart Failure ([facility] [id number]) Active Condition [facility] ([facility]) Diabetes Mellitus Type 2 ([facility] [id number]) Active Condition [facility] ([facility]) History of amputation of right leg through tibia and fibula [facility] HTN - Hypertension ([facility] [id number]) Active Condition [facility] ([facility]) Hyperlipidemia ([facility] [id number]) Active Condition [facility]) Hypothyroidism ([facility] [id number]) Active Condition [facility] ([facility]) Long-term current use of insulin Active Condition [facility] ([facility]) Peripheral neuropathy due to type 2 diabetes mellitus Active Condition [facility] ([facility]) Diagnosis: ICD-10-CM E11.9 Type 2 diabetes mellitus without complications Active Diagnosis [facility] ([facility]) Diagnosis: ICD-10-CM H90.3 Sensorineural hearing loss, bilateral Active Diagnosis [facility] Diagnosis: ICD-10-CM I50.9 Heart failure, unspecified Active Diagnosis [facility] ([facility]) Diagnosis: ICD-10-CM R26.89 Other abnormalities of [...] Feb 15, 2023 40 Feb 16, 2024 [id number] Feb 20, 2023 [facility] MURPHY [facility] ACTIVE 02/16/2024 [id number] KATHY MURPHY 2022 40 [facility] [place] [facility] CLOPIDOGREL BISULFATE 75MG TAB CLOPIDOG REL [...] 22, 2020 [place] Document ed by: JERMAINE CHESTRE Document ed at: [facility] ([facility]) NOT [...] Nov 08, 2023 10 Nov 08, 2024 [id number] Nov 09, 2023 JERMAINE CHESTER [facility] ([facility]) SUBCUT ANEOUS ACTIVE 11/08/2024 [id number] RYAN CHESTER 2023 10 [facility] ([facility]) [...] ed at: [facility] ([facility]) ORAL ACTIVE HENRIKRYNA K 2022 [facility] ([facility]) SPIRONOLACT ONE [...] Site Reaction Lot Number CVX Code 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 Status Comments Source COVID-19 ([employer]), MRNA, LNP-S, PF, NAVYA-SUCROSE, 30 MCG/0.3 ML (AGES 12+ YEARS) 2022 309 complet ed [facility] INFLUENZA, ADJUVANTED, QUADRIVALENT, PF 2022 205 complet ed [facility] RSV, BIVALENT, PROTEIN SUBUNIT RSVPREF, DILUENT RECONSTITUTED , 0.5 ML, PF 2022 305 complet [facility] INFLUENZA, HIGH-DOSE, QUADRIVALENT 1 2021 197 complet [facility] COVID-19 (MODERNA), MRNA, LNP-S, BIVALENT, PF, 50 MCG/0.5 ML OR 25MCG/0.25 ML DOSE 1 2021 229 complet ed [facility] COVID-19 ([facility]ERNA), MRNA, LNP-S, PF, 100 MCG/0.5ML DOSE OR 50 MCG/0.25ML DOSE 2020 207 complet ed [facility] COVID-19 (PFIZER), MRNA, LNP-S, PF, 30 MCG/0.3 ML DOSE 3 2020 208 complet ed [facility] INFLUENZA, HIGH-DOSE, QUADRIVALENT, PF 2020 197 complet ed [facility] INFLUENZA, UNSPECIFIED FORMULATION 2020 88 complet ed [...] ed [facility] INFLUENZA, ADJUVANTED, TRIVALENT, PF 2019 168 complet ed [facility] INFLUENZA, UNSPECIFIED FORMULATION 2019 88 complet ed [facility] INFLUENZA, HIGH-DOSE, TRIVALENT, PF 2018 135 complet ed [facility] INFLUENZA, ADJUVANTED, TRIVALENT, PF 2017 168 complet ed [facility] INFLUENZA, UNSPECIFIED FORMULATION 2016 88 complet ed [facility] INFLUENZA, HIGH-DOSE, TRIVALENT, PF 2014 135 complet ed [facility] PNEUMOCOCCAL CONJUGATE PCV 13 2014 133 complet ed Per [facility] INFLUENZA, SPLIT VIRUS, TRIVALENT, PRESERVATIVE 2012 141 complet ed [facility] INFLUENZA, SPLIT VIRUS, TRIVALENT, PRESERVATIVE 2011 141 complet ed [facility] INFLUENZA, SPLIT VIRUS, TRIVALENT, PF 2010 140 complet ed [facility] PNEUMOCOCCAL POLYSACCHARID E PPV23 2010 33 complet ed [facility] INFLUENZA, SPLIT VIRUS, TRIVALENT, PRESERVATIVE 2009 141 complet ed [facility] INFLUENZA, SPLIT VIRUS, TRIVALENT, PF 2008 140 complet ed [facility] INFLUENZA, SPLIT VIRUS, TRIVALENT, PRESERVATIVE 2007 141 complet ed [facility] INFLUENZA, SPLIT VIRUS, TRIVALENT, PRESERVATIVE 2006 141 complet ed [facility] INFLUENZA, SPLIT VIRUS, TRIVALENT, PRESERVATIVE 2005 141 complet ed [facility] PNEUMOCOCCAL POLYSACCHARID E PPV23 2005 33 complet ed [employer] TD (ADULT), 5 LF TETANUS TOXOID, PRESERVATIVE FREE, ADSORBED 2005 113 complet ed [facility] INFLUENZA, SPLIT VIRUS, TRIVALENT, PRESERVATIVE 2004 141 complet ed [facility] INFLUENZA, SPLIT VIRUS, TRIVALENT, PRESERVATIVE 2003 141 complet ed [facility] INFLUENZA, SPLIT VIRUS, TRIVALENT, PRESERVATIVE 2002 141 complet ed [facility] Results Combined list of recent chemistry, hematology [...] 23, 2023 02:00 PM Reporting Lab: [facility] [address] Performing Lab: [facility] [address] [facility] ([facility]) BASIC METABOLIC PANEL+MG UREA NITROGEN [MASS/VOLUM E] IN SERUM OR PLASMA 35 mg/dL 8 - 26 01/23 H Specimen Type: PLASMA No comment entered. Ordering Provider: AILIN CHESTER Report Released Date/Time: Jan 23, 2023 02:00 PM Reporting Lab: [facility] [address] Performing Lab: [facility] [address] [facility] ([facility]) BASIC METABOLIC PANEL+MG GLUCOSE [MASS/VOLUM E] IN SERUM OR PLASMA 239 mg/dL 70 - 100 01/23 H Specimen Type: PLASMA No comment entered. Ordering Provider: AILIN CHESTER Report Released Date/Time: Jan 23, 2023 02:00 PM Reporting Lab: [facility] [address] Performing Lab: [place] [address] [place] [address] ([facility]) BASIC METABOLIC PANEL+MG SODIUM [MOLES/VOLU ME] IN SERUM OR PLASMA 140 mmol/L 136 - 145 01/23 Specimen Type: PLASMA No comment entered. Ordering Provider: AILIN CHESTER Report Released Date/Time: Jan 23, 2023 02:00 PM Reporting Lab: [place] [id number] Performing Lab: [address] (CB) BASIC METABOLIC PANEL+MG POTASSIUM [MOLES/VOLU ME] IN SERUM OR PLASMA 5.1 mmol/L 3.5 - 5.1 01/23 Specimen Type: PLASMA No comment entered. Ordering Provider: AILIN CHESTER Report Released Date/Time: Jan 23, 2023 02:00 PM Reporting Lab: [facility] [address] Performing Lab: [facility] [id number] [place] [address] ([facility]) BASIC METABOLIC PANEL+MG CHLORIDE [MOLES/VOLU ME] IN SERUM OR PLASMA 109 mmol/L 98 - 107 01/23 H Specimen Type: PLASMA No comment entered. Ordering Provider: AILIN CHESTER Report Released Date/Time: Jan 23, 2023 02:00 PM Reporting Lab: [facility] [address] Performing Lab: [facility] [phone] [place] [address] ([facility]) BASIC METABOLIC PANEL+MG CARBON DIOXIDE, TOTAL [MOLES/VOLU ME] IN SERUM OR PLASMA 21 mmol/L 22 - 29 01/23 L Specimen Type: PLASMA No comment entered. Ordering Provider: AILIN CHESTER Report Released Date/Time: Jan 23, 2023 02:00 PM Reporting Lab: [facility] [address] Performing Lab: [place] [address] [facility] ([facility]) BASIC METABOLIC PANEL+MG CALCIUM [MASS/VOLUM E] IN SERUM OR PLASMA 9.4 mg/dL 8.4 - 10.2 01/23 Specimen Type: PLASMA No comment entered. Ordering Provider: AILIN CHESTER Report Released Date/Time: Jan 23, 2023 02:00 PM Reporting Lab: [address] Performing Lab: [address] [place] [address] ([facility]) BASIC METABOLIC PANEL+MG MAGNESIUM [MASS/VOLUM E] IN SERUM OR PLASMA 1.7 mg/dL 1.6 - 2.6 01/23 Specimen Type: PLASMA No comment entered. Ordering Provider: AILIN CHESTER Report Released Date/Time: Jan 23, 2023 02:00 PM Reporting Lab: [place] [address] Performing Lab: [address] ([facility]) BASIC METABOLIC PANEL+MG ANION GAP IN SERUM OR PLASMA 10 mmol/L 5 - 15 01/23 Specimen Type: PLASMA No comment entered. Ordering Provider: AILIN CHESTER Report Released Date/Time: Jan 23, 2023 02:00 PM Reporting Lab: [place] [address] Performing Lab: [address] [place] [address] ([facility]) BASIC METABOLIC PANEL+MG GLOMERULAR FILTRATION RATE/1.73 SQ M.PREDICTED [VOLUME RATE/AREA] IN SERUM, PLASMA OR BLOOD BY CREATININE- BASED FORMULA (CKD-EPI 2020) 61 60 01/23 Specimen Type: PLASMA No comment entered. Ordering Provider: AILIN CHESTER Report Released Date/Time: Jan 23, 2023 02:00 PM Reporting Lab: [facility] [address] Performing Lab: [address] [facility] ([facility]) BNP NATRIURETIC PEPTIDE B [MASS/VOLUM E] IN SERUM OR PLASMA 1549 pg/mL <99 - 99 01/23 H Specimen Type: PLASMA No comment entered. Ordering Provider: AILIN CHESTER Report Released Date/Time: Jan 23, 2023 02:00 PM Reporting Lab: [facility] [address] Performing Lab: [facility] [address] [facility] ([facility]) MICROALBU MIN/CREAT ININE RATIO URINE CREATININE [MASS/VOLUM E] IN URINE 132.8 mg/dL 58.0 - 161.0 11/23 Specimen Type: URINE No comment entered. Ordering Provider: AILIN CHESTER Report Released Date/Time: Nov 23, 2022 11:58 AM Reporting Lab: [facility] [address] Performing Lab: [facility] [address] [facility] ([facility]) MICROALBU MIN/CREAT ININE RATIO URINE MICROALBUMI N/CREATININ E [MASS RATIO] IN URINE 28.0 mg/g{c reat} 11/23 Specimen Type: URINE No comment entered. Ordering Provider: AILIN CHESTER Report Released Date/Time: Nov 23, 2022 11:58 AM Reporting Lab: [facility] [address] Performing Lab: [facility] [address] [facility] ([facility]) MICROALBU MIN/CREAT ININE RATIO URINE MICROALBUMI N [MASS/VOLUM E] IN URINE 37.2 mg/L 11/23 H Specimen Type: URINE No comment entered. Ordering Provider: AILIN CHESTER Report Released Date/Time: Nov 23, 2022 11:58 AM Reporting Lab: [facility] [address] Performing Lab: [facility] [address] [facility] ([facility]) LIPID PANEL,NON -FASTING CHOLESTEROL [MASS/VOLUM E] IN SERUM OR PLASMA 130 mg/dL 11/23 Specimen Type: PLASMA No comment entered. Ordering Provider: AILIN CHESTER Report Released Date/Time: Nov 23, 2022 11:58 AM Reporting Lab: [facility] [address] Performing Lab: [facility] [address] [facility] ([facility]) LIPID PANEL,NON -FASTING CHOLESTEROL IN HDL [MASS/VOLUM E] IN SERUM OR PLASMA 39 mg/dL 11/23 L Specimen Type: PLASMA No comment entered. Ordering Provider: AILIN CHESTER Report Released Date/Time: Nov 23, 2022 11:58 AM Reporting Lab: [facility] [address] Performing Lab: [address] [place] [address] (CB) LIPID PANEL,NON -FASTING CHOLESTEROL IN LDL [MASS/VOLUM E] IN SERUM OR PLASMA BY CALCULATION 73 mg/dL 11/23 Specimen Type: PLASMA No comment entered. Ordering Provider: AILIN CHESTER Report Released Date/Time: Nov 23, 2022 11:58 AM Reporting Lab: [facility] [address] Performing Lab: [facility] [phone] [place] [address] ([facility]) LIPID PANEL,NON -FASTING CHOLESTEROL IN VLDL [MASS/VOLUM E] IN SERUM OR PLASMA BY CALCULATION 18 mg/dL 11/23 Specimen Type: PLASMA No comment entered. Ordering Provider: AILIN CHESTER Report Released Date/Time: Nov 23, 2022 11:58 AM Reporting Lab: [facility] [address] Performing Lab: [facility] [id number] [place] [address] ([facility]) LIPID PANEL,NON -FASTING CHOLESTEROL NON HDL [MASS/VOLUM E] IN SERUM OR PLASMA 91 mg/dL 11/23 Specimen Type: PLASMA No comment entered. Ordering Provider: AILIN CHESTER Report Released Date/Time: Nov 23, 2022 11:58 AM Reporting Lab: [facility] [address] Performing Lab: [facility] [address] [facility] ([facility]) LIPID PANEL,NON -FASTING TRIGLYCERID E [MASS/VOLUM E] IN SERUM OR PLASMA 92 mg/dL 11/23 Specimen Type: PLASMA No comment entered. Ordering Provider: AILIN CHESTER Report Released Date/Time: Nov 23, 2022 11:58 AM Reporting Lab: [facility] [address] Performing Lab: [facility] [address] [facility] ([facility]) CBC LEUKOCYTES [#/VOLUME] IN BLOOD BY AUTOMATED COUNT 10.80 10*3/u L 4.0 - 11.0 11/23 Specimen Type: BLOOD No comment entered. Ordering Provider: AILIN CHESTER Report Released Date/Time: Nov 23, 2022 11:58 AM Reporting Lab: [facility] [address] Performing Lab: [address] [facility] ([facility]) CBC ERYTHROCYTE S [#/VOLUME] IN BLOOD BY AUTOMATED COUNT 3.87 10*6/u L 4.6 - 6.2 11/23 L Specimen Type: BLOOD No comment entered. Ordering Provider: AILIN CHESTER Report Released Date/Time: Nov 23, 2022 11:58 AM Reporting Lab: [facility] [address] Performing Lab: [address] [place] [address] (CB) CBC HEMOGLOBIN [MASS/VOLUM E] IN BLOOD 12.1 g/dL 13.5 - 17.9 11/23 L Specimen Type: BLOOD No comment entered. Ordering Provider: AILIN CHESTER Report Released Date/Time: Nov 23, 2022 11:58 AM Reporting Lab: [facility] [address] Performing Lab: [facility] [address] [facility] ([facility]) CBC HEMATOCRIT [VOLUME FRACTION] OF BLOOD BY AUTOMATED COUNT 37.5 41 - 54 11/23 L Specimen Type: BLOOD No comment entered. Ordering Provider: AILIN CHESTER Report Released Date/Time: Nov 23, 2022 11:58 AM Reporting Lab: [facility] [address] Performing Lab: [place] [phone] [place] [address] (CB) CBC MCV [ENTITIC VOLUME] BY AUTOMATED COUNT 96.9 fL 80 - 100 11/23 Specimen Type: BLOOD No comment entered. Ordering Provider: AILIN CHESTER Report Released Date/Time: Nov 23, 2022 11:58 AM Reporting Lab: [facility] [address] Performing Lab: [address] ([facility]) CBC MCH [ENTITIC MASS] BY AUTOMATED COUNT 31.3 pg 27 - 33 11/23 Specimen Type: BLOOD No comment entered. Ordering Provider: AILIN CHESTER Report Released Date/Time: Nov 23, 2022 11:58 AM Reporting Lab: [address] Performing Lab: [address] ([facility]) CBC MCHC [MASS/VOLUM E] BY AUTOMATED COUNT 32.3 g/dL 32.0 - 37.5 11/23 Specimen Type: BLOOD No comment entered. Ordering Provider: AILIN CHESTER Report Released Date/Time: Nov 23, 2022 11:58 AM Reporting Lab: [facility] [address] Performing Lab: [address] ([facility]) CBC PLATELETS [#/VOLUME] IN BLOOD BY AUTOMATED COUNT 293 10*3/u L 150 - 400 11/23 Specimen Type: BLOOD No comment entered. Ordering Provider: AILIN CHESTER Report Released Date/Time: Nov 23, 2022 11:58 AM Reporting Lab: [facility] [address] Performing Lab: [facility] [phone] [place] [address] ([facility]) CBC PLATELET MEAN VOLUME [ENTITIC VOLUME] IN BLOOD BY AUTOMATED COUNT 10.3 fL 7.4 - 10.4 11/23 Specimen Type: BLOOD No comment entered. Ordering Provider: AILIN CHESTER Report Released Date/Time: Nov 23, 2022 11:58 AM Reporting Lab: [facility] [address] Performing Lab: [address] ([facility]) CBC ERYTHROCYTE DISTRIBUTIO N WIDTH [RATIO] BY AUTOMATED COUNT 13.2 11.5 - 14.5 11/23 Specimen Type: BLOOD No comment entered. Ordering Provider: AILIN CHESTER Report Released Date/Time: Nov 23, 2022 11:58 AM Reporting Lab: [facility] [address] Performing Lab: [address] ([facility]) TSH W/REFLEX TO FREE T4 THYROTROPIN [UNITS/VOLU ME] IN SERUM OR PLASMA 4.59 u[IU]/ mL 0.35 - 4.94 11/23 Specimen Type: PLASMA No comment entered. Ordering Provider: AILIN CHESTER Report Released Date/Time: Nov 23, 2022 11:58 AM Reporting Lab: [facility] [address] Performing Lab: [place] [address] [facility] ([facility]) HEMOGLOBI N A1C HEMOGLOBIN A1C/HEMOGLO BIN.TOTAL [...] Nov 23, 2022 11:58 AM Reporting Lab: [place] [phone] Performing Lab: [facility] [address] [facility] ([facility]) COMPREHEN SIVE METABOLIC PANEL+MG CREATININE [MASS/VOLUM E] IN SERUM OR PLASMA 1.2 mg/dL 0.7 - 1.2 11/23 Specimen Type: PLASMA No comment entered. Ordering Provider: AILIN CHESTER Report Released Date/Time: Nov 23, 2022 11:58 AM Reporting Lab: [facility] [address] Performing Lab: [place] [address] [facility] ([facility]) COMPREHEN SIVE METABOLIC PANEL+MG UREA NITROGEN [MASS/VOLUM E] IN SERUM OR PLASMA 34 mg/dL 8 - 26 11/23 H Specimen Type: PLASMA No comment entered. Ordering Provider: AILIN CHESTER Report Released Date/Time: Nov 23, 2022 11:58 AM Reporting Lab: [place] [phone] Performing Lab: [place] [address] [facility] ([facility]) COMPREHEN SIVE METABOLIC PANEL+MG GLUCOSE [MASS/VOLUM E] IN SERUM OR PLASMA 54 mg/dL 70 - 100 11/23 L Specimen Type: PLASMA No comment entered. Ordering Provider: AILIN CHESTER Report Released Date/Time: Nov 23, 2022 11:58 AM Reporting Lab: [facility] [address] Performing Lab: [facility] [address] [facility] ([facility]) COMPREHEN SIVE METABOLIC PANEL+MG SODIUM [MOLES/VOLU ME] IN SERUM OR PLASMA 143 mmol/L 136 - 145 11/23 Specimen Type: PLASMA No comment entered. Ordering Provider: AILIN CHESTER Report Released Date/Time: Nov 23, 2022 11:58 AM Reporting Lab: [facility] [address] Performing Lab: [place] [phone] [facility] ([facility]) COMPREHEN SIVE METABOLIC PANEL+MG POTASSIUM [MOLES/VOLU ME] IN SERUM OR PLASMA 4.4 mmol/L 3.5 - 5.1 11/23 Specimen Type: PLASMA No comment entered. Ordering Provider: AILIN CHESTER Report Released Date/Time: Nov 23, 2022 11:58 AM Reporting Lab: [facility] [address] Performing Lab: [facility] [address] [facility] ([facility]) COMPREHEN SIVE METABOLIC PANEL+MG CHLORIDE [MOLES/VOLU ME] IN SERUM OR PLASMA 107 mmol/L 98 - 107 11/23 Specimen Type: PLASMA No comment entered. Ordering Provider: AILIN CHESTER Report Released Date/Time: Nov 23, 2022 11:58 AM Reporting Lab: [facility] [address] Performing Lab: [facility] [address] [facility] ([facility]) COMPREHEN SIVE METABOLIC PANEL+MG CARBON DIOXIDE, TOTAL [MOLES/VOLU ME] IN SERUM OR PLASMA 23 mmol/L 22 - 29 11/23 Specimen Type: PLASMA No comment entered. Ordering Provider: AILIN CHESTER Report Released Date/Time: Nov 23, 2022 11:58 AM Reporting Lab: [facility] [address] Performing Lab: [facility] [address] [facility] ([facility]) COMPREHEN SIVE METABOLIC PANEL+MG CALCIUM [MASS/VOLUM E] IN SERUM OR PLASMA 9.7 mg/dL 8.4 - 10.2 11/23 Specimen Type: PLASMA No comment entered. Ordering Provider: AILIN CHESTER Report Released Date/Time: Nov 23, 2022 11:58 AM Reporting Lab: [place] [address] Performing Lab: [address] ([facility]) COMPREHEN SIVE METABOLIC PANEL+MG PROTEIN [MASS/VOLUM E] IN SERUM OR PLASMA 7.2 g/dL 6.0 - 8.3 11/23 Specimen Type: PLASMA No comment entered. Ordering Provider: AILIN CHESTER Report Released Date/Time: Nov 23, 2022 11:58 AM Reporting Lab: [place] [address] Performing Lab: [address] ([facility]) COMPREHEN SIVE METABOLIC PANEL+MG ALBUMIN [MASS/VOLUM E] IN SERUM OR PLASMA 4.1 g/dL 3.5 - 5.2 11/23 Specimen Type: PLASMA No comment entered. Ordering Provider: AILIN CHESTER Report Released Date/Time: Nov 23, 2022 11:58 AM Reporting Lab: [place] [phone] Performing Lab: [address] ([facility]) COMPREHEN SIVE METABOLIC PANEL+MG BILIRUBIN.T OTAL [MASS/VOLUM E] IN SERUM OR PLASMA 0.5 mg/dL 0.2 - 1.2 11/23 Specimen Type: PLASMA No comment entered. Ordering Provider: AILIN CHESTER Report Released Date/Time: Nov 23, 2022 11:58 AM Reporting Lab: [place] [address] Performing Lab: [address] ([facility]) COMPREHEN SIVE METABOLIC PANEL+MG MAGNESIUM [MASS/VOLUM E] IN SERUM OR PLASMA 1.4 mg/dL 1.6 - 2.6 11/23 L Specimen Type: PLASMA No comment entered. Ordering Provider: AILIN CHESTER Report Released Date/Time: Nov 23, 2022 11:58 AM Reporting Lab: [facility] [address] Performing Lab: [facility] [address] [facility] ([facility]) COMPREHEN SIVE METABOLIC PANEL+MG ANION GAP IN SERUM OR PLASMA 13 mmol/L 5 - 15 11/23 Specimen Type: PLASMA No comment entered. Ordering Provider: AILIN CHESTER Report Released Date/Time: Nov 23, 2022 11:58 AM Reporting Lab: [facility] [address] Performing Lab: [facility] [address] [facility] ([facility]) COMPREHEN SIVE METABOLIC PANEL+MG ALKALINE PHOSPHATASE [ENZYMATIC ACTIVITY/VO LUME] IN SERUM OR PLASMA 87 U/L 40 - 150 11/23 Specimen Type: PLASMA No comment entered. Ordering Provider: AILIN CHESTER Report Released Date/Time: Nov 23, 2022 11:58 AM Reporting Lab: [facility] [address] Performing Lab: [facility] [address] [facility]) COMPREHEN SIVE METABOLIC PANEL+MG ALANINE AMINOTRANSF ERASE [ENZYMATIC ACTIVITY/VO LUME] IN SERUM OR PLASMA 28 U/L 11/23 Specimen Type: PLASMA No comment entered. Ordering Provider: AILIN CHESTER Report Released Date/Time: Nov 23, 2022 11:58 AM Reporting Lab: [facility] [phone] Performing Lab: [facility] [address] [facility] ([facility]) COMPREHEN SIVE METABOLIC PANEL+MG ASPARTATE AMINOTRANSF ERASE [ENZYMATIC ACTIVITY/VO LUME] IN SERUM OR PLASMA 33 U/L 11/23 Specimen Type: PLASMA No comment entered. Ordering Provider: AILIN CHESTER Report Released Date/Time: Nov 23, 2022 11:58 AM Reporting Lab: [facility] [id number] Performing Lab: [facility] [phone] [facility] ([facility]) COMPREHEN SIVE METABOLIC PANEL+MG GLOMERULAR FILTRATION RATE/1.73 SQ M.PREDICTED [VOLUME RATE/AREA] IN SERUM, PLASMA OR BLOOD BY CREATININE- BASED FORMULA (CKD-EPI 2020) 61 11/23 Specimen Type: PLASMA No comment entered. Ordering Provider: AILIN CHESTER Report Released Date/Time: Nov 23, 2022 11:58 AM Reporting Lab: [facility] [phone] Performing Lab: [facility] [phone] [facility] ([facility]) Vital Signs Combined list of inpatient and outpatient Vital Signs from Department of Defense and [facility], ranging from 12 months to all on record, depending upon the facility. Vital Sign Value Date Comments Source Encounters Combined list of: 1) Encounters from Department of Veterans Affairs facilities going back up to thelast 18 months. 2) Encounters from the Department of [facility] facilities going back up to 280 months. Location Location Details Encounter Type Encounter Number Reason For Visit Attending Provider ADM Date DC Date Status Disposition Source [facility] Outpatient [facility]counter [id number] [facility] Outpatient Encounter [id number] 08/21 [facility] Outpatient Encounter [id number] 09/20 [facility] Outpatient Encounter [id number] 11/11 [facility] Outpatient Encounter [id number] ZARI POWER 11/16 [facility] Outpatient Encounter [id number] 11/21 [facility] ([facility]) OFFICE O/P EST MOD 30-39 MIN [id number] Diagnos is: ICD-10- CM Z00.00 Encntr for general adult medical exam w/o abnorma l finding s
CANDELARIO CHESTER 11/23 [facility] ([facility]) [facility] ([facility]) GAIT TRAINING THERAPY [id number] Diagnos is: ICD-10- CM R26.89 Other abnorma lities of gait and mobilit y
OMAYRA JAMESON V 11/23 [facility] ([facility]) [place] [facility] Outpatient Encounter [id number] SA TRINO RA R 12/11 [place] [facility] [place] [facility] Outpatient Encounter [id number] 12/25 [place] [facility] [place] [facility] Outpatient Encounter [id number] SA TRINO RA R 12/28 [place] [facility] [place] [facility] Outpatient Encounter [id number] 01/05 [place] [facility] [place] [facility] Outpatient Encounter [id number] 01/11 [place] [facility] [place] [facility] Outpatient Encounter [id number] 01/16 [place] [facility] OFFICE O/P EST HI 40-54 MIN [id number] Diagnos is: ICD-10- CM I50.9 Heart failure , unspeci fied
CANDELARIO CHESTER 01/23 [facility] ([facility] [place] [facility] Outpatient Encounter [id number] Marcus PTOTS I 01/24 [place] [facility] [place] [facility] Outpatient Encounter [id number] Danica TORRE 02/05 [place] [facility] [place] [facility] Outpatient Encounter [id number] 02/09 [place] [facility] [place] [facility] Outpatient Encounter [id number] Danica TORRE 02/09 [place] [facility] [place] [facility] Outpatient Encounter [id number] 02/14 [place] [facility] [place] [facility] Outpatient Encounter [id number] 02/15 [place] [facility] [place] [facility] Outpatient Encounter [id number] 02/19 [place] [facility] [place] [facility] Outpatient Encounter [id number] 02/20 [place] [facility] [place] [facility] Outpatient Encounter [id number] 02/20 [place] [facility] [place] [facility] Outpatient Encounter [id number] 02/20 [place] [facility] [place] [facility] Outpatient Encounter [id number] 02/20 [place] [facility] [place] [facility] Outpatient Encounter [id number] 02/21 [place] [facility] [place] [facility] QNHP OL DIG ASSMT&MGMT 5-10 [id number] Diagnos is: ICD-10- CM E11.9 Type 2 diabete s mellitu s without complic ations< br/> HARDER,SIVA LY 02/22 [place] [facility] PRO PHONE CALL 11-20 MIN [id number] Diagnos is: ICD-10- CM I50.9 Heart failure , unspeci fied
JERMAINE ALCANTAR ANDMARIA INES Frey 02/23 [facility] ([facility] [place] [facility] Outpatient Encounter [id number] 02/26 [place] [facility] [place] [facility] Outpatient Encounter [id number] 03/01 [place] [facility] [place] [facility] Outpatient Encounter [id number] 03/05 [place] [facility] [place] [facility] Outpatient Encounter [id number] SA RA Sandra JAMESON 03/09 [place] [facility] [place] [facility] Outpatient Encounter [id number] 03/14 [place] [facility] [place] [facility] Outpatient Encounter [id number] SA JAMARI JAMESON R 04/12 [facility] [place] [facility] Outpatient Encounter [id number] TRINO R 04/16 [facility] [place] [facility] Outpatient Encounter [id number] TRINO R 05/01 [facility] [place] [facility] Outpatient Encounter [id number] 07/11 [facility] [place] [facility] Outpatient Encounter [id number] [facility] [place] [facility] Outpatient Encounter [id number] 07/12 [facility] PRO PHONE CALL 5-10 MIN [id number] Diagnos is: ICD-10- CM 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
VIV BARFIELD 07/19 [facility] HEARING AID REPAIR/MOD IFYING [id number] Diagnos is: ICD-10- CM 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
CARY CORCORAN 08/09 [facility] HEARING AID FITTING/CH ECKING [id number] Diagnos is: ICD-10- CM 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
Sy MAKI 09/17 [facility] Outpatient Encounter [id number] 10/17 [facility] ([facility]) OFFICE O/P EST HI 40 MIN [id number] Diagnos is: ICD-10- CM E11.9 Type 2 diabete s mellitu s without complic ations< br/> CANDELARIO CHESTER 11/07 [place] ([facility]) Social History Combined list of available smoking, tobacco, and other social history from Department of Defense and Veterans Affairs facilities. Social History Type Response Date Comment Sourc e Tobacco smoking status NHIS VA-TOBACCO FORMER USER 11/08/2023 [facility] ([facility]) History of tobacco use VA-TOBACCO QUIT 1 5 YRS OR MORE 11/08/2023 [facility] ([facility]) History of tobacco use VA-TOBACCO QUIT 1 5 YRS OR MORE 11/23/2022 [facility] ([facility]) History of tobacco use VA-TOBACCO FORMER USER 11/29/2021 [facility] ([facility]) History of tobacco use VA-TOBACCO FORMER USER 10/21/2020 [facility] ([facility]) Plan of Care List of future care activities from Department of Veterans Affairs facilities. Additional future care activities may be listed in the Assessment and Plan section. Date/Time Care Activity Care Activity Detail Facili ty 12/18/2023 AMBULATORY - REHAB MEDICINE AMBULATORY - REHAB MEDICINE [facility] ([facility]) 11/08/2023 Consult Order REHAB OUTPT [place] MOBILITY Cons Straddle Carrier Operator's Choice [facility] ([facility])
--- OUTSIDE RECORDS SUMMARY | 2023-12-12 09:03 | XMS_ITS | Continuity of Care Document ---
Author Organization [facility] Mario gy, [facility] Address [address] [place] [address] Care Team Providers Care Radioisotope Technician Name Role Phone HARMANTEPARVEZ To Primary Care Provider [phone] Assessment No assessment recorded. Plan of Treatment [...] Address Organization Details Last Updated DateTime 11/28/2023 53382.78 g 23 kg/m2 177.8 cm Shlomomichael lainezo [facility] 11/28/2023 14:16:54 Social History Question Answer Notes LastModified by Organizat ion Details LastModified Time Tobacco Smoking Status [facility] 14:22:10 What Is Your Level [...] adjuvanted, trivalent, PF 01/10/2018 completed Bennett winn, [facility] 11/28/2023 14:17:02 Influenza, adjuvanted, trivalent, PF 02/12/2020 completed Bennett winn, [facility] 11/28/2023 14:17:02 Influenza, high-dose, quadrivalent, PF 03/09/2021 completed Bennett winn, [facility] 11/28/2023 14:17:02 Influenza, high-dose, quadrivalent, PF 04/05/2022 completed Bennett winn, [facility] 11/28/2023 14:17:02 Influenza, adjuvanted, quadrivalent, PF 03/05/2023 completed Bennett Kimrigal-Valer o null, [facility] 11/28/2023 14:17:02 COVID-19, mRNA, LNP-S, PF, 100 mcg/0.5mL dose or 50 mcg/0.25mL dose 03/09/2021 completed Bennett Kimrigal-Valer o null, [facility] 11/28/2023 14:17:02 COVID-19, mRNA, LNP-S, PF, 30 mcg/0.3 mL dose 07/03/2020 completed Bennett Kimrigal-Valer o null, [facility] 11/28/2023 14:17:02 COVID-19, mRNA, LNP-S, PF, 30 mcg/0.3 mL dose 07/24/2020 completed Bennett Kimrigal-Valer o null, [facility] 11/28/2023 14:17:02 COVID-19, mRNA, LNP-S, bivalent, PF, 50 mcg/0.5 mL or 25mcg/0.25 mL dose 03/29/2022 completed Bennett Kimrigal-Valer o null, [facility] 11/28/2023 14:17:02 RSV, bivalent, protein subunit RSVpreF, diluent reconstituted, 0.5 mL, PF 03/05/2023 completed Bennett Kimrigal-Valer o null, [facility] 11/28/2023 14:17:02 COVID-19, mRNA, LNP-S, PF, estrella-sucrose, 30 mcg/0.3 mL 03/05/2023 completed Bennett Kimrigal-Valer o null, [facility] 11/28/2023 14:17:02 pneumococcal polysaccharide PPV23 02/09/2011 completed Bennett Kimrigal-Valer o null, [facility] 11/28/2023 14:17:02 pneumococcal polysaccharide PPV23 03/06/2006 completed Bennett Kimrigal-Valer o null, [facility] 11/28/2023 14:17:02 influenza, unspecified formulation 03/15/2017 completed Miletzi Mg-Valer o null, [facility] 11/28/2023 14:17:02 Pneumococcal conjugate PCV 13 01/21/2015 completed Milraymoni Mg-Valer o null, [facility] 11/28/2023 14:17:02 Influenza, high-dose, trivalent, PF 01/21/2015 completed [facility] Mg-Valer o null, [facility] 11/28/2023 14:17:02 Influenza, high-dose, trivalent, PF 03/07/2019 completed [facility] Mg-[facility]er o null, [facility] 11/28/2023 14:17:02 Influenza, split virus, trivalent, preservative 01/30/2013 completed [facility] o null, [facility] 11/28/2023 14:17:02 Influenza, split virus, trivalent, preservative 02/26/2003 completed [facility]er o null, [facility] 11/28/2023 14:17:02 Influenza, split virus, trivalent, preservative 03/01/2004 [facility] 11/28/2023 14:17:02 Influenza, split virus, trivalent, preservative 03/05/2007 completed [facility] Mg-Valer o null, [facility] 11/28/2023 14:17:02 Influenza, split virus, trivalent, preservative 03/06/2006 completed [facility] Mg-Valer o null, [facility] 11/28/2023 14:17:02 Influenza, split virus, trivalent, preservative 03/09/2005 completed [facility] Mg-Valer o null, [facility] 11/28/2023 14:17:03 Influenza, split virus, trivalent, preservative 03/09/2008 completed [facility] Mg-Valer o null, [facility] 11/28/2023 14:17:03 Influenza, split virus, trivalent, preservative 03/13/2012 completed Miletzi Mg-Valer o null, [facility] 11/28/2023 14:17:03 Influenza, split virus, trivalent, preservative 04/28/2010 completed Bennett Kimrigal-Valer o null, [facility] 11/28/2023 14:17:03 Influenza, split virus, trivalent, PF 02/09/2011 completed Jeffninfa Duncanal-Andriaer o null, [facility] 11/28/2023 14:17:03 Influenza, split virus, trivalent, PF 04/05/2009 completed Bennett Kimrigal-Andriaer o null, [facility] 11/28/2023 14:17:03 Td (adult), 5 Lf tetanus toxoid, preservative free, adsorbed 03/06/2006 completed Bennett iKmrigal-Andriaer o null, [facility] 11/28/2023 14:17:03 Past Encounters Encounter ID Performer Location Encounter Start Date Encounter Closed Date Diagnosis/Indication Diagnosis SNOMED-CT Code [id number] Roberto Carballo MD [facility] [address] [place] [id number] 11/28/2023 13:46:09 12/04/2023 16:43:22 Phimosis [id number] Health Concerns Section Related Observation LastModified by Organization Detai ls LastModified Time None Recorded Concern Status LastModified by Organization Details LastModified Time None Recorded Payers Encounter Date Sequence Insurance Name Policy Number Policy Cherry Covered Member ID Cherry Member ID Guarantor Name 11/28/2023 1 [employer] MEDICARE COST [id number] Rosalina Bowers [id number] Rosalina Bowers Notes Date Note Type Note [...] (03/05/07) - 1.40 (04/28/10) Roberto Carballo MD [address] [place] [address], [place], [id number], [facility] 11/30/2023 11:21:51
--- OUTSIDE RECORDS SUMMARY | 2023-12-12 09:03 | XMS_ITS | Clinical Summary ---
Author Organization [facility] Address [address] [place] [address] Care Team Providers Care Adoption Coordinator Name Role Phone Elsewhere, Pcp Primary Care Provider Unavailabl e Source Comments Patient records contain information from all sites at [facility]. For routine questions regarding patient records, call [phone] during business hours, M-F 8:00 AM - 5:00 PM Central Time. Record requests for emergency care only can be directed to [phone] at any time.[facility] Allergies No known active allergies Medications Medication [...] guaze. Assessment & Plan (06/15/2023 4:18 PM PROVISIONING ANALYST): The wound bed is clean. A thin layer of silver stat will be applied with a gauze. Change daily. 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 Left Heel: Area continues to improve. Wound measures [id number]. Edges well defined, attached and 100% re-epithelialized tissues. Granulation tissue is observed along the lining of the edges under the bed of slough/eschar. Eschar is soft but not mushy. Wound bed is still approx 95% or more of slough/eschar. Scant drainage with dressing change. Resident tolerated cares without any concerns. New wound orders as follows: Assessment & Plan (06/15/2023 4:10 PM PROVISIONING ANALYST): 1: Gently cleanse area with NS. Pat dry. 2. Skin prep to gonsalo-wound. 3. Santyl to wound bed only. 4. Place gauze over wound. 5. cover with island dressing. 6. Change dressing daily. He may be discharged to home with home nursing for wound care . Assessment & Plan (06/01/2023 2:33 PM PROVISIONING ANALYST): Continue wound care and have [facility] [employer] evaluate in one week. Dementia 05/20/2023 Overview (05/24/2023): No documented dementia or behaviors Assessment & Plan (05/24/2023 5:57 PM PROVISIONING ANALYST): He has low hearing which could contribute to him not understanding Assessment & Plan (05/20/2023 4:20 PM PROVISIONING ANALYST): Although initial BIMS testing scored 14, he has had episodes of what seems to be sundowning with strong suspicion of underlying dementia. Will have OT further evaluate. Hyperglycemia 04/22/2023 Overview (04/22/2023): Prior to recent hospitalization, insulin glargine dose was 25 units daily and short-acting insulin 10 units with meals. Assessment & Plan (05/24/2023 6:00 PM PROVISIONING ANALYST): A1C 7.2 He will follow up with his PCP in [place] Assessment & Plan (04/22/2023 8:28 PM PROVISIONING ANALYST): His appetite has been poor and he has been getting much less insulin than he is used to. His sugars however have been high. Will gradually increase mealtime insulin to 7 units. Previously on 10 units with meals. [facility] (Current) Anticoagulant Treatment 08/2022 Overview (04/16/2023): On [...] side. 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 He will need a standard wheelchair Mr. Woods was admitted to [facility] April 10 following BK right lower extremity. [...] site Assessment & Plan (04/16/2023 7:55 PM PROVISIONING ANALYST): Pain is well controlled. Stump care consists of washing with normal saline and dry. Cover with dry gauze or ABD b.i.d. he is wearing the knee brace to maintain extension in his working with therapies. He has follow-up with vascular surgery 05/11/2023. Assessment & Plan (04/12/2023 4:53 PM PROVISIONING ANALYST): Patient and mentioned he is doing well [...] 75mcg. Assessment & Plan (06/05/2023 9:25 PM PROVISIONING ANALYST): TSH value improved compared to prior value of 16.0 a month ago. Resident /nursing denied symptoms of hypothyroidism. Last T4 was 0.92 in April 2023. vice president planning confirmed levothyroxine is given every morning (6am) without other medications. Therefore, we will increase levothyroxine 50mcg to 75mcg and rechecked TSH in 6 weeks. Nursing instructed to continue monitoring for symptoms of hypothyroidism and contact [place] provider if any concerns. Assessment & Plan (05/24/2023 5:24 PM PROVISIONING ANALYST): Increase levothyroxine to 50 mcg daily. prison may give two 25 mcg tablets to equal 50 mcg. He will be discharging in a week Assessment & Plan (04/23/2023 12:56 PM PROVISIONING ANALYST): TSH will be done. He is currently on levothyroxine 25 mcg daily. Dose will need to be adjusted if TSH is elevated. Assessment & Plan (04/16/2023 7:56 PM PROVISIONING ANALYST): Recheck TSH mid April. Assessment & Plan (04/12/2023 4:45 PM PROVISIONING ANALYST): Continue levothyroxine. TSH reordered. 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 01/16/2023 Overview (01/16/2023): Short-term stay. Assessment & Plan (04/12/2023 4:08 PM PROVISIONING ANALYST): Plans to discharge back home. Patient remains [...] status Assessment & Plan (05/24/2023 5:15 PM PROVISIONING ANALYST): He will be full code Assessment & Plan (01/17/2023 2:30 PM CDT): Continue full code status Hyperlipidemia 01/16/2023 Overview (05/24/2023): On atorvastatin Assessment & Plan (05/24/2023 6:01 PM PROVISIONING ANALYST): Stay on statin Assessment & Plan (01/17/2023 2:35 PM CDT): Continue atorvastatin Assessment & Plan (01/17/2023 2:01 PM CDT): Continue atorvastatin Weakness General 01/16/2023 Overview (01/16/2023): This is multifactorial and related to recent hospitalizations and multiple comorbidities. Assessment & Plan (06/05/2023 9:26 PM PROVISIONING ANALYST): Denied weakness. We will continue therapy. Assessment & Plan (05/24/2023 6:05 PM PROVISIONING ANALYST): He is getting stronger with therapy. He will continue therapy when he gets his prosthesis. He will have a wheelchair upon discharge. Assessment & Plan (04/12/2023 4:09 PM PROVISIONING ANALYST): Verbalized improvement with weakness. We will continue [...] 04/11/2023 Assessment & Plan (04/12/2023 3:58 PM PROVISIONING ANALYST): Stable. Denied dizziness, lightheadedness, shortness of breaths and palpitation. Assessment & Plan (01/17/2023 2:30 PM CDT): Stable. Assessment & Plan (01/17/2023 1:58 PM CDT): Stable. Assessment & Plan (01/16/2023 7:16 PM CDT): Most recent hemoglobin 9.3. Atherosclerotic Heart Diseas e Of [place] Coronary Artery Without Angina Pectoris 01/15/2023 Overview [...] RAP). Assessment & Plan (05/24/2023 5:52 PM PROVISIONING ANALYST): Stable on current meds Assessment & Plan (04/23/2023 1:02 PM PROVISIONING ANALYST): BNAP 31,578 on 04/16/23. Dr. Gerardo increased furosemide to 40 mg bid and added spironolactone 25 mg daily. Weight today in [place] was 174 lb. No edema noted in left leg. No dyspnea. On O2 per N/C continuous. No change in medications until renal function results are available. Assessment & Plan (04/16/2023 7:41 PM PROVISIONING ANALYST): He had multiple medication changes during hospitalization including discontinuation of spironolactone and Entresto. Farxiga is being held. Metoprolol and furosemide doses were decreased. Assessment & Plan (04/12/2023 4:01 PM PROVISIONING ANALYST): No admission weight yet. Nursing to check [...] 12/22/2022 Assessment & Plan (04/22/2023 8:26 PM PROVISIONING ANALYST): Pro BN AP earlier today greater than [...] Apixaban Assessment & Plan (05/24/2023 5:53 PM PROVISIONING ANALYST): prison anticoagulation on apixaban Assessment & Plan (04/23/2023 1:03 PM PROVISIONING ANALYST): Ventricular rate controlled today Assessment & Plan (04/12/2023 3:59 PM PROVISIONING ANALYST): HR well controlled ranging from 82-85. Continue care plan. Assessment & Plan (01/17/2023 2:31 PM CDT): HR well controlled ranging from 64-99. Continue care plan. Assessment & Plan (01/16/2023 8:24 AM CDT): HR well controlled. Continue care plan. 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 Assessment & Plan (05/24/2023 5:20 PM PROVISIONING ANALYST): Nurse reports he is nonadherent to his [...] daily Assessment & Plan (06/07/2023 2:51 PM PROVISIONING ANALYST): Blood sugars have been elevated due to [...] hypoglycemia. Assessment & Plan (05/29/2023 7:56 PM PROVISIONING ANALYST): Patient's blood sugar continued to be on [...] possible. Assessment & Plan (05/24/2023 5:59 PM PROVISIONING ANALYST): Insulin dependent not always compliant with diet. Glargine will be increased to 17 units. Assessment & Plan (05/22/2023 6:43 PM PROVISIONING ANALYST): Blood sugar continued to be elevated mostly [...] 3 times daily with meals. Follow-up with [facility] [employer] next week. Dietitian/dietary to visit with patient and to discuss food options. Assessment & Plan (05/20/2023 4:22 PM PROVISIONING ANALYST): Recent blood sugars in the SNF setting have been elevated. Short and long-acting insulin doses have changed significantly since admission. Will have him follow- up with [employer] [employer] for further review of blood sugars. Assessment & Plan (04/23/2023 1:04 PM PROVISIONING ANALYST): Blood sugars not controlled. Increase Lantus to 14 units from 12. Assessment & Plan (04/16/2023 7:42 PM PROVISIONING ANALYST): Was previously on glipizide and higher doses of mealtime aspart. Blood sugars are being checked 4 times daily. May need insulin readjusted. Assessment & Plan (04/12/2023 4:04 PM PROVISIONING ANALYST): Blood sugars have been I< 200s. Currently [...] to 25 units and follow-up. 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 Managed with nitroglycerin. Assessment & Plan (01/17/2023 2:31 PM CDT): Denied chest pain. Continue nitroglycerin as needed. Assessment & Plan (01/16/2023 8:13 AM CDT): Denied chest pain. Continue nitroglycerin as needed. 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 Assessment & Plan (05/24/2023 5:14 PM PROVISIONING ANALYST): Stable Assessment & Plan (04/29/2023 7:54 PM PROVISIONING ANALYST): Today, nursing had reported left lower calf and ankle redness with open wound. On assessing the left calf/ankle, there was an open skin area (abrasion) that has no redness, swelling nor drainage. The skin was not warmth to touch and patient denied pain at 0/10 (nurse trailer park manager was in attendance during visit). Nursing stated does look better than what it was this morning. They have been cleaning the wound area in apply Mepilex. Since there was no symptoms or evidence of infection on the left lower calf and ankle redness with open wound, nursing was instructed to continue skin check daily and current dressing. Contact [facility] providers if worsening skin condition. Of note, [...] remdesivir at [facility]. Anemia 01/16/2023 04/12/2023 Overview (04/12/2023): Lab Results Component Value Date WBC 9.0 04/11/2023 HGB 7.8 (L) 04/11/2023 HCT 24.9 (L) 04/11/2023 MCV 95 04/11/2023 PLT 381 04/11/2023 Assessment & Plan (04/12/2023 3:57 PM PROVISIONING ANALYST): CBC reordered. Denied dizziness, lightheadedness, shortness of [...] 04/11/2023 Assessment & Plan (04/12/2023 4:05 PM PROVISIONING ANALYST): BMP ordered. Assessment & Plan (01/17/2023 2:35 [...] Overview (01/15/2023): Onychomycosis of toenails; Original Code: [id number] Original Codesystem: SNOMED CT Classification: Medical Confirmation Status: Confirmed Diabetes Mellitus Type 2 01/10/2019 Loss Hearing Right 07/10/2007 4 Social History Tobacco Use Types Packs/Day Years [...] Comments Blood Pressure 107/66 06/18/2023 1:10 PM PROVISIONING ANALYST Pulse 78 06/18/2023 1:10 PM PROVISIONING ANALYST Temperature 36.6 ??C (97.8 ??F) 06/18/2023 1:10 PM CS T Respiratory Rate 16 06/18/2023 1:10 PM PROVISIONING ANALYST Oxygen Saturation 95% 06/18/2023 1:10 PM PROVISIONING ANALYST Inhaled Oxygen Concentration - - Weight 75.8 kg (167 lb) 06/18/2023 1:10 PM PROVISIONING ANALYST Height 175.3 cm (5' 9) 04/12/2023 3:21 PM PROVISIONING ANALYST Body Mass Index 24.66 04/12/2023 3:21 PM PROVISIONING ANALYST Plan of Treatment Health Maintenance Due Date [...] Advance Directives For more information, please contact: [phone] * DNR/DNI (Latest Code Status on File) Date Activated Date Inactivated Comments 05/24/2023 6:14 PM * DNR/DNI Date Activated Date Inactivated Comments 04/12/2023 4:11 PM 04/16/2023 7:15 AM Care Teams Adoption Coordinator Relationship Specialty Start Date End Date Elsewhere, Pcp PCP - General Internal Medicine 08/28/23
--- OUTSIDE RECORDS SUMMARY | 2023-12-12 09:03 | XMS_ITS | Clinical Summary ---
Author Organization [facility] Address [place], [place] [address] Care Team Providers Care Community Integration Specialist Name Role Phone VotelMelquiades MD Primary Care Provider + Nurses, Advanced Heart Failure Unavailable + Shade Manuel MD Unavailable [phone] Allergies No known active allergies Medications Medication Sig Dispensed Refills Start Date End Date Status blood-glucose meterIndications: Type 2 diabetes mellitus with complication (HC) Ascensia Glucometer, Dispense meter, test strips, lancets covered by pt ins. Test 3 times daily 1 Device 07/09/2020 Active Insulin [place], Disposable, (Novofine 32) 32 gauge x 1/4Indications:2 [...] be used to read blood sugars, follow trimmer loader directions. 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 11/25/2019 HTN (hypertension) 10/28/2015 Hyperlipidemia LDL goal <70 10/28/2015 Adenomatous colon polyp 04/13/2015 Overview: Colonoscopy 04/2015 polyps repeat in 5 years Colonoscopy 03/2020 polyps, repeat in 5 years Background diabetic retinopathy(362.01) 07/10/19 08 Unspecified hearing loss 07/10/2007 Coronary atherosclerosis of unspecified type of vessel, [place] or graft Overview: 4 vessel CABG 2001 Lexiscan only for cardiac evaluation - no treadmill Other ill-defined and unknow n causes of morbidity and mortality Impotence of organic origin Resolved Problems Problem Noted Date Diagnosed Date Resolved Date Type 2 diabetes mellitus with complication 11/16/2017 12/22/2022 Heart disease, unspecified 0 07/10/2007 Encounters Date Type Department Care Team Description 12/11/2023 Telephone [facility] [address] [place] [address] Votel, Melquiades Gray MD 12/10/2023 1:45 PM CDT - 12/10/2023 11:59 PM CDT Hospital Encounter [facility] ? [facility] [address] [place] [address] Votel, MD Deloris Cleary Kayla, PT 12/10/2023 Travel 12/06/2023 12:55 PM CDT - 12/06/2023 11:59 PM CDT Hospital Encounter [facility] ? [facility] [address] [place] [address] Votel, MD Deloris Cleary Kayla, PT 12/06/2023 Travel 12/05/2023 Orders Only [facility] Scanner 1 scan: (1-Ord) RC, 12/05/2023 12/05/2023 Telephone [facility] [address] [place] [address] VoteMelquiades lewis MD 12/04/2023 Telephone [facility] [address] [place] [address] Votel, Melquiades Gray MD insulin clarification orders 11/26/2023 12:57 PM CDT - 11/26/2023 11:59 PM CDT Hospital Encounter [facility] ? [facility] [address] [place] [address] Votel, MD Edgar Cleary Rebecca L, PT 11/26/2023 Travel 11/22/2023 1:26 PM CDT - 11/22/2023 11:59 PM CDT Hospital Encounter [facility] ? [facility] [address], [place] [address] Votel, MD Deloris Cleary Kayla, PT 11/22/2023 Travel 11/22/2023 Refill [facility] [address] [place] [address] Magda, Melquiades Gray MD Refill Request (Needs alternative sent in for ~ Insulin Aspart Flexpen Inj 3ml ) 11/20/2023 1:38 PM CDT - 11/20/2023 11:59 PM CDT Hospital Encounter [facility] ? [facility] [address], [place] [address] Votel, MD Edgar Cleary Rebecca L, PT 11/20/2023 Travel 11/19/2023 Telephone [facility] [address] [place] [address] Votel, Melquiades Gray MD Concerns 11/14/2023 Telephone [facility] [address] [place] [address] Votel, Melquiades Gray MD Prior Authorization (insulin aspart, U-100, (NOVOLOG FLEXPEN) 100 unit/mL (3 mL) pen - APPROVED 11/08/23- until further notice) 11/13/2023 2:00 PM CDT Patient Outreach [address] [address] Priyanka Hummel RN Diabetes (Review Dexcom report/insulin management) 11/12/2023 12:55 PM CDT - 11/12/2023 11:59 PM CDT Hospital Encounter [facility] and [facility] [address] [place] [address] Votel, MD Edgar Cleary Rebecca L, PT 11/12/2023 Travel 11/07/2023 Telephone [facility] [address] [place] [address] Votedebbie, Melquiades Gray MD INSULIN ASPART FLEXPEN 11/06/2023 10:25 AM CDT Office Visit [facility] [address] [place] [address] GunnarteMelquiades lewis MD Medicare ANNUAL (subsequent) Visit (83 year old male); Medication Management (insulin) 11/06/2023 Telephone [facility] [address] [place] [address] Melquiades Man MD Form 11/05/2023 12:49 PM CDT - 11/05/2023 11:59 PM CDT Hospital Encounter [facility] [address] [place] [address] Votel, MD Edgar Cleary Rebecca L, PT 11/05/2023 Travel 11/01/2023 1:00 PM CDT - 11/01/2023 11:59 PM CDT Hospital Encounter [facility] ? [facility] [address] [place] [address] Votel, MD Edgar Cleary Rebecca L, PT 11/01/2023 Travel 10/31/2023 Telephone [facility] [address] [place] [address] Votel, Melquiades Gray MD 10/30/2023 10:00 AM CDT Patient Outreach [facility] [address] [place] [address] Priyanka Hummel software sales consultant (Insulin management/education ) 10/29/2023 12:25 PM CDT - 10/29/2023 11:59 PM CDT Hospital Encounter [facility] ? [facility] [address] [place] [address] Votel, MD Edgar Cleary Rebecca L, PT 10/29/2023 Travel 10/25/2023 1:15 PM CDT - 10/25/2023 11:59 PM CDT Hospital Encounter [facility] ? [facility] [address] [place] [address] Votel, MD Edgar Cleary Rebecca L, PT 10/25/2023 Travel 10/23/2023 Telephone [facility] [address] [place] [address] Votel, Melquiades Gray MD 10/22/2023 1:21 PM CDT - 10/22/2023 11:59 PM CDT Hospital Encounter [facility] ? [facility] [address] [place] [address] VoteMelquiades lewis MD Oswald, Rebecca L, PT 10/22/2023 Travel 10/18/2023 1:45 PM CDT - 10/18/2023 11:59 PM CDT Hospital Encounter [facility] ? [facility] [address] [place] [address] VoteMelquiades lewis MD Manuell, Kayla, PT 10/18/2023 Travel 10/17/2023 Telephone [facility] [address] [place] [address] Melquiades Man MD Outside Order (regarding frequency of home health visits) 10/15/2023 12:55 PM CDT - 10/15/2023 11:59 PM CDT Hospital Encounter [facility] ? [facility] [address] [place] [address] Votedebbie, MD Lesly Cleary Isabelle, PT 10/15/2023 Travel 10/11/2023 12:51 PM CDT - 10/11/2023 11:59 PM CDT Hospital Encounter [facility] ? [facility] [address] [place] [address] Melquiades Man MD Tonsfeldt, Isabelle, PT 10/11/2023 Travel 10/11/2023 Telephone [facility] [address] [place] [address] Melquiades Man MD 10/09/2023 Telephone [facility] [address] [place] [address] Melquiades Man MD Form 10/05/2023 Transcribe Orders [address] [phone] Isatu Hanley MD 10/04/2023 1:42 PM CDT - 10/04/2023 11:59 PM CDT Hospital Encounter [facility] [address], [place] [address] Melquiades Man MD Tonsfeldt, Isabelle, PT 10/04/2023 9:35 AM CDT Office Visit [facility] [address] [place] [address] Rachel Sauceda, DO Diabetes 10/04/2023 Telephone [facility] [address] [place] [address] Rachel Sauceda, DO Medication Management 10/04/2023 Travel 10/03/2023 Refill [facility] [address] [facility] [address] [place] [phone] Shade Manuel MD Refill Request (Farxiga) 10/01/2023 12:58 PM CDT - 10/01/2023 11:59 PM CDT Hospital Encounter [facility] [address], [place] [address] Melquiades Man MD Tonsfeldt, Isabelle, PT 10/01/2023 Travel 09/30/2023 Refill [facility] [address] [facility] [address] [place] [phone] Shade Manuel MD Refill Request (Dapagliflozin Propanediol) 09/27/2023 12:56 PM CDT - 09/27/2023 11:59 PM CDT Hospital Encounter [facility] [address] [place] [address] Melquiades Man MD Tonsfeldt, Isabelle, PT 09/27/2023 Travel 09/24/2023 12:57 PM CDT - 09/24/2023 11:59 PM CDT Hospital Encounter [facility] [address] [place] [address] VoteMelquiades lewis MD Tonsfeldt, Isabelle, PT 09/24/2023 Travel 09/20/2023 11:45 AM CDT - 09/20/2023 11:59 PM CDT Hospital Encounter [facility] [address] [place] [address] Votel, MD Lesly Cleary Isabelle, PT 09/20/2023 Travel 09/19/2023 Telephone [facility] [address] [place] [address] Melquiades Man MD 09/17/2023 Telephone [facility] [address] [place] [address] Melquiades Man MD orders (wound care 2 times per week) 09/13/2023 1:00 PM CDT - 09/13/2023 11:59 PM CDT Hospital Encounter [facility] [address] [place] [address] Votel, MD Lesly Cleary Isabelle, PT 09/13/2023 Travel from Last 3 Months Immunizations Name Administration Dates Next Due COVID-19 vaccine (Moderna 100mcg/0.5mL) PF, MDV 03/09/2021 COVID-19 vaccine (Moderna 50 mcg/0.5mL) 12YO+ BIVALENT PF, MDV 03/29/2022 COVID-19 vaccine (Pfizer-Bio NTech 30mcg/0.3mL) PF, MDV 03/09/2021,07/24/2020,07/03/2020 COVID-19 vaccine Comirnaty ([employer]-BioNTech 30mcg/0.3mL) 12YO+ [id number] Formula PF, SDV, PFS 03/05/2023 Influenza Virus, [...] CDT Respiratory Rate 24 05/03/2023 7:04 AM HIM ASSISTANT Oxygen Saturation 99% 11/06/2023 10: 30 AM CDT Inhaled Oxygen Concentration - - Weight 71.7 kg (158 lb) 10/04/2023 9:26 AM CDT patient reported Height 175.3 cm (5' 9.02) 07/27/2023 1 1:51 AM CDT Body Mass Index 23.32 07/27/2023 11:51 AM CDT Plan of Treatment Upcoming Encounters Date Type Department Care Team (Late st Contact Info) Description 12/13/2023 1:45 PM CDT Appointment [facility] [address] [place] [address] Farheen Puentes, PT [address] [place] [address] 12/17/2023 1:00 PM CDT Appointment [facility] [address] [place] [address] Farheen Puentes, PT [address] [place] [address] 12/20/2023 11:00 AM CDT Patient Outreach [address] [phone] Priyanka Hummel, RN [address] [place] [address] 12/20/2023 1:00 PM CDT Appointment [facility] [address], [place] [address] Farheen Puentes, PT [address] [place] [address] 12/24/2023 1:00 PM CDT Appointment [facility] [address], [place] [address] Farheen Puentes, PT [address] [place] [address] 12/27/2023 1:00 PM CDT Appointment [facility] [address] [place] [address] Farheen Puentes, PT [address] [place] [address] 12/31/2023 1:00 PM CDT Appointment [facility] [address], [place] [address] Jasmin Hernández, PT [address] [place] [address] 01/01/2024 10:50 AM CDT Office Visit [facility] [address] [place] [address] Melquiades Man MD [address] [place] [address] 01/02/2024 1:45 PM CDT Appointment [facility] [address] [place] [address] Farheen Puentes, PT [address] [place] [address] 01/08/2024 1:30 PM CDT Office Visit [address] [place] [address] [place] [address] Shade Manuel MD [address] [facility] [address] [place] [address] Health Maintenance Due Date Last Done Comments [...] Priority Date/Time Associated Diagnosis Comments SCAN-EYE EXAM 12/05/2023 12:00 AM CDT CBC WITH AUTO DIFFERENTIAL Routine 11/06/2023 12:33 [...] Last 3 Months Results * SCAN-EYE EXAM (12/05/2023 12:00 AM CDT) Scanner OTHER * (ABNORMAL) CBC WITH AUTO DIFFERENTIAL (11/06/2023 [...] MD HEMATOLOGY [facility] [address] [place] [address], * LIPID PANEL W REFLEX MEASURED LDL (11/06/2023 12:33 PM CDT) CHOLESTEROL,TOTAL 156 100 - 199 mg/dL 11/07/2023 1:57 AM CDT [facility] Comment: Cholesterol, Total Reference Ranges Desirable <200 mg/dL Borderline 200-239 mg/dL High >=240 mg/dL TRIGLYCERIDES 124 <150 mg/dL 11/07/2023 1:57 AM CDT [facility] HDL CHOLESTEROL 56 >40 mg/dL 1:57 AM CDT [facility] NON-HDL CHOLESTEROL 100 <145 mg/dl 11/07/2023 1:57 AM CDT [facility] CHOL/HDL RATIO 2.79 <4.50 11/07/2023 1:57 AM CDT [facility] LDL CHOLESTEROL 75 <=130 mg/dL 11/07/2023 1:57 AM CDT [facility] VLDL CHOLESTEROL 25 <=30 mg/dL 11/07/2023 1:57 AM CDT [facility] PROVIDER ORDERED STATUS RANDOM 11/07/2023 1:57 AM CDT [facility] Blood BLOOD SPECIMEN / Unknown Butterfly / Unknown 11/06/2023 12:33 PM CDT 11/06/2023 12:37 PM CDT Melquiades Man MD [facility] [address] [place] [address], [place] * TSH (11/06/2023 12:33 PM CDT) TSH 2.24 0.27 - 4.20 uIU/mL 11/07/2023 1:57 AM CDT [facility] Blood BLOOD SPECIMEN / Unknown Butterfly / Unknown 11/06/2023 12:33 PM CDT 11/06/2023 12:37 PM CDT Narrative [facility] - 11/07/2023 1:57 AM CDT In Adults, TSH values between 5.00 and 10.00 uIU/ml do not necessarily indicate the presence of Hypothyroidism. Correlation with clinical findings such as presence of goiter and/or Thyroperoxidase (TPO) Antibody may be helpful. For more information please refer to RONNIE 2004; 291: 228-238. Melquiades Man MD CHEMISTRY Performing Organization Address City/[facility]/ZIP Co de Phone Number [facility] [address] [place] [address], * ALT (SGPT) (11/06/2023 12:33 PM CDT) ALT (SGPT) 21 10 - 50 IU/L 11/07/2023 1:57 AM CDT [facility] Blood BLOOD SPECIMEN / Unknown Butterfly / Unknown 11/06/2023 12:33 PM CDT 11/06/2023 12:37 PM CDT Melquiades Man MD CHEMISTRY [facility] [address] [place] [address], [place] * (ABNORMAL) BASIC METABOLIC PANEL (11/06/2023 12:33 PM CDT) SODIUM 139 136 - 145 mmol/L 11/07/2023 1:57 AM CDT [facility] POTASSIUM 4.8 3.5 - 5.1 mmol/L 11/07/2023 1:57 AM CDT [facility] CHLORIDE 102 98 - 107 mmol/L 11/07/2023 1:57 AM [facility] CO2,TOTAL 23 22 - 29 mmol/L 11/07/2023 1:57 AM T [facility] ANION GAP 14 5 - 18 11/07/2023 1:57 AM T [facility] GLUCOSE 137(H) 70 - 99 mg/dL 11/07/2023 1:57 AM T [facility] CALCIUM 10.0 8.8 - 10.2 mg/dL 11/07/2023 1:57 AM T [facility] BUN 42(H) 8 - 23 mg/dL 11/07/2023 1:57 AM T [facility] CREATININE 1.65(H) 0.70 - 1.20 mg/dL 11/07/2023 1:57 AM [facility] BUN/CREAT RATIO 25(H) 10 - 20 1:57 AM T [facility] eGFR 41(L) >90 mL/min/1.7 3m2 11/07/2023 1:57 AM [facility] Comment:As of 2021, eG [...] 12:37 PM CDT Melquiades Man MD [facility] [address] [place] [address], * (ABNORMAL) HEMOGLOBIN A1C MONITORING (POCT) (10/04/2023 [...] Sauceda DO CHEMISTRY [facility] [address] [place] [address], [place] [phone] from Last 3 Months Additional Health Concerns [...] Documents on File Type Date Recorded Patient Change Management Director Harjinder QUINONEZ 03/26/2023 * Full Code [...] Code Status Discussion: Reviewed Preferences Care Teams Community Integration Specialist Relationship Specialty Start Date End Date Votel, Melquiades Gray MD [address] [place] [address] PCP - General 11/20/05 Nurses, Advanced Heart Failure [address] [place] [address] Advanced Heart Failure/Transplant Card 01/24/23 Shade Manuel MD [address] [place] [address] [place] [address] Cardiovascular Disease 01/24/23
--- OUTSIDE RECORDS SUMMARY | 2023-12-12 09:04 | XMS_ITS | Referral Summary ---
Author Organization [facility] Address [address] [place] [address] Care Team Providers Care Skimmer Scoop Operator Name Role Phone Elsewhere, Pcp Primary Care Provider Unavailabl e Source Comments Patient records contain information from all sites at [facility]. For routine questions regarding patient records, call [phone] during business hours, M-F 8:00 AM - 5:00 PM Central Time. Record requests for emergency care only can be directed to [phone] at any time.[facility] Allergies No known active allergies Medications Medication [...] guaze. Assessment & Plan (06/15/2023 4:18 PM REGIONAL EHS MANAGER): The wound bed is clean. A thin layer of silver stat will be applied with a gauze. Change daily. 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 Left Heel: Area continues to improve. Wound measures [id number]. Edges well defined, attached and 100% re-epithelialized tissues. Granulation tissue is observed along the lining of the edges under the bed of slough/eschar. Eschar is soft but not mushy. Wound bed is still approx 95% or more of slough/eschar. Scant drainage with dressing change. Resident tolerated cares without any concerns. New wound orders as follows: Assessment & Plan (06/15/2023 4:10 PM REGIONAL EHS MANAGER): 1: Gently cleanse area with NS. Pat dry. 2. Skin prep to gonsalo-wound. 3. Santyl to wound bed only. 4. Place gauze over wound. 5. cover with island dressing. 6. Change dressing daily. He may be discharged to home with home nursing for wound care . Assessment & Plan (06/01/2023 2:33 PM REGIONAL EHS MANAGER): Continue wound care and have [facility] evaluate in one week. Dementia 05/20/2023 Overview (05/24/2023): No documented dementia or behaviors Assessment & Plan (05/24/2023 5:57 PM REGIONAL EHS MANAGER): He has low hearing which could contribute to him not understanding Assessment & Plan (05/20/2023 4:20 PM REGIONAL EHS MANAGER): Although initial BIMS testing scored 14, he has had episodes of what seems to be sundowning with strong suspicion of underlying dementia. Will have OT further evaluate. Hyperglycemia 04/22/2023 Overview (04/22/2023): Prior to recent hospitalization, insulin glargine dose was 25 units daily and short-acting insulin 10 units with meals. Assessment & Plan (05/24/2023 6:00 PM REGIONAL EHS MANAGER): A1C 7.2 He will follow up with his PCP in [place] Assessment & Plan (04/22/2023 8:28 PM REGIONAL EHS MANAGER): His appetite has been poor and he has been getting much less insulin than he is used to. His sugars however have been high. Will gradually increase mealtime insulin to 7 units. Previously on 10 units with meals. Jail (Current) Anticoagulant Treatment 08/2022 Overview (04/16/2023): On [...] side. 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 [...] site Assessment & Plan (04/16/2023 7:55 PM REGIONAL EHS MANAGER): Pain is well controlled. Stump care consists of washing with normal saline and dry. Cover with dry gauze or ABD b.i.d. he is wearing the knee brace to maintain extension in his working with therapies. He has follow-up with vascular surgery 05/11/2023. Assessment & Plan (04/12/2023 4:53 PM REGIONAL EHS MANAGER): Patient and mentioned he is doing well [...] 75mcg. Assessment & Plan (06/05/2023 9:25 PM REGIONAL EHS MANAGER): TSH value improved compared to prior value of 16.0 a month ago. Resident /nursing denied symptoms of hypothyroidism. Last T4 was 0.92 in April 2023. president + publisher confirmed levothyroxine is given every morning (6am) without other medications. Therefore, we will increase levothyroxine 50mcg to 75mcg and rechecked TSH in 6 weeks. Nursing instructed to continue monitoring for symptoms of hypothyroidism and contact [place] provider if any concerns. Assessment & Plan (05/24/2023 5:24 PM REGIONAL EHS MANAGER): Increase levothyroxine to 50 mcg daily. detention may give two 25 mcg tablets to equal 50 mcg. He will be discharging in a week Assessment & Plan (04/23/2023 12:56 PM REGIONAL EHS MANAGER): TSH will be done. He is currently on levothyroxine 25 mcg daily. Dose will need to be adjusted if TSH is elevated. Assessment & Plan (04/16/2023 7:56 PM REGIONAL EHS MANAGER): Recheck TSH mid April. Assessment & Plan (04/12/2023 4:45 PM REGIONAL EHS MANAGER): Continue levothyroxine. TSH reordered. 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 Assessment & Plan (04/12/2023 4:08 PM REGIONAL EHS MANAGER): Plans to discharge back home. Patient remains [...] status Assessment & Plan (05/24/2023 5:15 PM REGIONAL EHS MANAGER): He will be full code Assessment & Plan (01/17/2023 2:30 PM CDT): Continue full code status Hyperlipidemia 01/16/2023 Overview (05/24/2023): On atorvastatin Assessment & Plan (05/24/2023 6:01 PM REGIONAL EHS MANAGER): Stay on statin Assessment & Plan (01/17/2023 2:35 PM CDT): Continue atorvastatin Assessment & Plan (01/17/2023 2:01 PM CDT): Continue atorvastatin Weakness General 01/16/2023 Overview (01/16/2023): This is multifactorial and related to recent hospitalizations and multiple comorbidities. Assessment & Plan (06/05/2023 9:26 PM REGIONAL EHS MANAGER): Denied weakness. We will continue therapy. Assessment & Plan (05/24/2023 6:05 PM REGIONAL EHS MANAGER): He is getting stronger with therapy. He will continue therapy when he gets his prosthesis. He will have a wheelchair upon discharge. Assessment & Plan (04/12/2023 4:09 PM REGIONAL EHS MANAGER): Verbalized improvement with weakness. We will continue [...] 04/11/2023 Assessment & Plan (04/12/2023 3:58 PM REGIONAL EHS MANAGER): Stable. Denied dizziness, lightheadedness, shortness of breaths and palpitation. Assessment & Plan (01/17/2023 2:30 PM CDT): Stable. Assessment & Plan (01/17/2023 1:58 PM CDT): Stable. Assessment & Plan (01/16/2023 7:16 PM CDT): Most recent hemoglobin 9.3. Atherosclerotic Heart Diseas e Of [place] Coronary Artery Without Angina Pectoris 01/15/2023 Overview [...] RAP). Assessment & Plan (05/24/2023 5:52 PM REGIONAL EHS MANAGER): Stable on current meds Assessment & Plan (04/23/2023 1:02 PM REGIONAL EHS MANAGER): BNAP 31,578 on 04/16/23. Dr. Gerardo increased furosemide to 40 mg bid and added spironolactone 25 mg daily. Weight today in [place] was 174 lb. No edema noted in left leg. No dyspnea. On O2 per N/C continuous. No change in medications until renal function results are available. Assessment & Plan (04/16/2023 7:41 PM REGIONAL EHS MANAGER): He had multiple medication changes during hospitalization including discontinuation of spironolactone and Entresto. Farxiga is being held. Metoprolol and furosemide doses were decreased. Assessment & Plan (04/12/2023 4:01 PM REGIONAL EHS MANAGER): No admission weight yet. Nursing to check [...] 12/22/2022 Assessment & Plan (04/22/2023 8:26 PM REGIONAL EHS MANAGER): Pro BN AP earlier today greater than [...] Apixaban Assessment & Plan (05/24/2023 5:53 PM REGIONAL EHS MANAGER): prison anticoagulation on apixaban Assessment & Plan (04/23/2023 1:03 PM REGIONAL EHS MANAGER): Ventricular rate controlled today Assessment & Plan (04/12/2023 3:59 PM REGIONAL EHS MANAGER): HR well controlled ranging from 82-85. Continue care plan. Assessment & Plan (01/17/2023 2:31 PM CDT): HR well controlled ranging from 64-99. Continue care plan. Assessment & Plan (01/16/2023 8:24 AM CDT): HR well controlled. Continue care plan. 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 Assessment & Plan (05/24/2023 5:20 PM REGIONAL EHS MANAGER): Nurse reports he is nonadherent to his [...] daily Assessment & Plan (06/07/2023 2:51 PM REGIONAL EHS MANAGER): Blood sugars have been elevated due to [...] hypoglycemia. Assessment & Plan (05/29/2023 7:56 PM REGIONAL EHS MANAGER): Patient's blood sugar continued to be on [...] possible. Assessment & Plan (05/24/2023 5:59 PM REGIONAL EHS MANAGER): Insulin dependent not always compliant with diet. Glargine will be increased to 17 units. Assessment & Plan (05/22/2023 6:43 PM REGIONAL EHS MANAGER): Blood sugar continued to be elevated mostly [...] 3 times daily with meals. Follow-up with [facility] next week. Dietitian/dietary to visit with patient and to discuss food options. Assessment & Plan (05/20/2023 4:22 PM REGIONAL EHS MANAGER): Recent blood sugars in the SNF setting have been elevated. Short and long-acting insulin doses have changed significantly since admission. Will have him follow- up with [facility] for further review of blood sugars. Assessment & Plan (04/23/2023 1:04 PM REGIONAL EHS MANAGER): Blood sugars not controlled. Increase Lantus to 14 units from 12. Assessment & Plan (04/16/2023 7:42 PM REGIONAL EHS MANAGER): Was previously on glipizide and higher doses of mealtime aspart. Blood sugars are being checked 4 times daily. May need insulin readjusted. Assessment & Plan (04/12/2023 4:04 PM REGIONAL EHS MANAGER): Blood sugars have been I< 200s. Currently [...] to 25 units and follow-up. Atherosclerosis Of [place] Ar teries Of Other Extremities With Ulceration [...] 120-130 Assessment & Plan (04/12/2023 4:07 PM REGIONAL EHS MANAGER): Images from the original note were not [...] redness. Assessment & Plan (05/24/2023 5:14 PM REGIONAL EHS MANAGER): Stable Assessment & Plan (04/29/2023 7:54 PM REGIONAL EHS MANAGER): Today, nursing had reported left lower calf and ankle redness with open wound. On assessing the left calf/ankle, there was an open skin area (abrasion) that has no redness, swelling nor drainage. The skin was not warmth to touch and patient denied pain at 0/10 (nurse environmental department manager was in attendance during visit). Nursing stated does look better than what it was this morning. They have been cleaning the wound area in apply Mepilex. Since there was no symptoms or evidence of infection on the left lower calf and ankle redness with open wound, nursing was instructed to continue skin check daily and current dressing. Contact [facility] providers if worsening skin condition. Of note, [...] for COVID-19 12/27/2022. Treated with remdesivir at [facility]. Anemia 01/16/2023 04/12/2023 Overview (04/12/2023): Lab Results Component Value Date WBC 9.0 04/11/2023 HGB 7.8 (L) 04/11/2023 HCT 24.9 (L) 04/11/2023 MCV 95 04/11/2023 PLT 381 04/11/2023 Assessment & Plan (04/12/2023 3:57 PM REGIONAL EHS MANAGER): CBC reordered. Denied dizziness, lightheadedness, shortness of [...] 04/11/2023 Assessment & Plan (04/12/2023 4:05 PM REGIONAL EHS MANAGER): BMP ordered. Assessment & Plan (01/17/2023 2:35 [...] Overview (01/15/2023): Onychomycosis of toenails; Original Code: [id number] Original Codesystem: SNOMED CT Classification: Medical Confirmation [...] Comments Blood Pressure 107/66 06/18/2023 1:10 PM REGIONAL EHS MANAGER Pulse 78 06/18/2023 1:10 PM REGIONAL EHS MANAGER Temperature 36.6 ??C (97.8 ??F) 06/18/2023 1:10 PM CS T Respiratory Rate 16 06/18/2023 1:10 PM REGIONAL EHS MANAGER Oxygen Saturation 95% 06/18/2023 1:10 PM REGIONAL EHS MANAGER Inhaled Oxygen Concentration - - Weight 75.8 kg (167 lb) 06/18/2023 1:10 PM REGIONAL EHS MANAGER Height 175.3 cm (5' 9) 04/12/2023 3:21 PM REGIONAL EHS MANAGER Body Mass Index 24.66 04/12/2023 3:21 PM REGIONAL EHS MANAGER Plan of Treatment Not on file Advance Directives For more information, please contact: [phone] * DNR/DNI (Latest Code Status on File) Date Activated Date Inactivated Comments 05/24/2023 6:14 PM * DNR/DNI Date Activated Date Inactivated Comments 04/12/2023 4:11 PM 04/16/2023 7:15 AM Care Teams Skimmer Scoop Operator Relationship Specialty Start Date End Date Elsewhere, Pcp PCP - General Internal Medicine 08/28/23
--- OUTSIDE RECORDS SUMMARY | 2023-12-12 09:04 | XMS_ITS ---
Author Organization [facility] Address [address] [place] [address] Care Team Providers Care District Home Economics Agent Name Role Phone Unavailable Unavailable Unavailable Surgery Details Not on file Complications Check Surgery Details section. Procedure Estimated Blood Loss Check Surgery Details section. Procedure Findings Check Surgery Details section. Procedure Specimens Taken Check Surgery Details section.
== END 2023-12-12 08:58 | disposition home or self-care (01) ==
LOC: WOUND 09:00
PROVIDERS: PCP Family Medicine; Visit Provider Surgery
DX: E11.621 Type 2 diabetes mellitus with foot ulcer (principal); L97.422 Non-pressure chronic ulcer of left heel and midfoot with fat layer exposed
CPT/HCPCS: G0463

== ENCOUNTER 2023-12-19 09:05 | Outpatient (CLI) | payer MEDICARE, BC, SELFPAY ==
--- OUTSIDE RECORDS SUMMARY | 2023-12-19 09:07 | XMS_ITS | Encounter Summary ---
Author Name [facility] [place] Organization [facility] Address [address] [place] [address] Care Team Providers Care Preservationist Name Role Phone JIMENEZ CHESTER Primary Care [...] Cherry's Name Patient's Relationship to Policy Cherry [facility] (WNR) MEDICARE ADVANTAGE [facility] (WNR) May 14, 2020 [id number] [phone] PITER [facility] PATIENT Selected Encounter This section includes the information on record at [place] for the Encounter. Date/Time Encounter Type Encounter Description Reason Provider Source Dec 18, 2023 10:45 AM PT EVAL MOD COMPLEX 30 MIN PHYSICAL THERAPY ICD-10-CM Z74.09 Other reduced mobility CINTHIA JAMESON Encounter Template Text not used by [place] Assessments - Encounter Diagnoses This section includes the primary and secondary diagnoses documented for the Encounter. Date/Time Primary/Secondary Diagnosis Diagnosis Name Provider Source Dec 18, 2023 12:53 PM PRIMARY Other reduced mobility CINTHIA JAMESON ([facility]) Plan of Treatment: Future Appointments (+ 6 months) and Future Tests (+/- 45 days) The Plan of Treatment section includes [facility] care activities for the [facility] [place] [facility] This section includes future appointments and future orders which are active, pending or scheduled. Active, Pending, and Scheduled Orders This section includes a listing of several types of active, pending, and scheduled orders, including clinic medications orders, diagnostic test orders, procedure orders and consult orders; where the start date of the order is 45 days before the date of the Encounter or 45 days after the date of theEncounter. The data comes from all [place] treatment facilities. Test Date/Time Test Type Test Details Facility Name Dec 18, 2023 12:55 PM Consult Order REHAB OUTP T POWER MOBILITY PM&R PT Cons Special Services Director's Choice [facility] ([facility]) Social History: Smoking Status (Most current) and Tobacco Use (All prior to encounter date) This section includes the most current, and the historical, smoking and tobacco- related health factors from the [place] facility where the Encounter took place. Current Smoking Status This section includes the most current smoking, or tobacco-related health factor, from the [place] facility where the Encounter took place. Date/Time Current Smoking Status Comment Facil ity Nov 08, 2023 10:00 AM VA-TOBACCO QUIT 15 YRS OR MORE [place] ([facility]) Tobacco Use History This section includes a history of the smoking, or tobacco-related health factors, that were collected on or before the date of the Encounter. The data comes from the [place] facility where the Encounter took place. Date/Time Smoking Status/Tobacco Use Comment F acility Nov 08, 2023 10:00 AM VA-TOBACCO QUIT 15 YRS OR MORE [facility] ([facility]) Nov 23, 2022 11:00 AM VA-TOBACCO FORMER USER [facility] ([facility]) Nov 23, 2022 11:00 AM VA-TOBACCO QUIT 15 YRS OR MORE [facility] ([facility]) Nov 29, 2021 10:00 AM VA-TOBACCO FORMER USER [facility] ([facility]) Nov 29, 2021 10:00 AM VA-TOBACCO QUIT 15 YRS OR MORE [facility] ([facility]) Oct 21, 2020 10:30 AM VA-TOBACCO FORMER USER [place] ([facility]) Oct 21, 2020 10:30 AM VA-TOBACCO QUIT 15 YRS OR MORE [place] ([facility]) Encounter Notes: All associated encounter notes This section contains the clinical notes associated to the Encounter. Date/Time Encounter Note(s) Provider Source Dec 18, 2023 10:50 AM PHYSICAL THERAPY C ONSULT: LOCAL TITLE: PHYSICAL THERAPY CONSULT STANDARD TITLE: PHYSICAL THERAPY CONSULT DATE OF NOTE: DEC 18, 2023@10:50 ENTRY DATE: DEC 18, 2023@10:50:21 AUTHOR: CINTHIA JAMESON V EXP COSIGNER: URGENCY: STATUS: COMPLETED PT tx: PT Eval Mod Comp 40' PT dx: Reduced Mobility SUBJECTIVE: Relevant PMH/personal factors impacting rehab: Active problems - Computerized Problem List is the source for the followin. CAD - Coronary Artery Disease ([facility] [id number]) 2. Diabetes Mellitus Type 2 ([facility] [id number]) 3. HTN - Hypertension ([facility] [id number]) 4. Peripheral neuropathy due to type 2 diabetes mellitus 5. Long-term current use of insulin 6. Hyperlipidemia ([facility] [id number]) 7. CHF - Congestive Heart Failure ([facility] [id number]) 8. Exposure to potentially hazardous substance ([facility] [id number]) - Entered through [facility] TAM Documentation Initiative 9. Hypothyroidism ([facility] [id number]) 10. History of amputation of right leg through tibia and fibula Weight/Height for DME purposes: 166.1 lb [75.34 kg] (11/08/2023 09:55) 69 in [175.3 cm] (11/08/2023 09:55) Chief Concern: Pt is a 83 year old Harper who presents to PT for functional mobility assessment to determine eligibility for power mobility. Pt states he gets easily fatigued and will desaturate with increased exertion and walking anything more than 20 feet. Has a R sided BKA as well and has difficulty maintaining balance with any type of AD. Prior Level of Function/Mobility: Ind with mobility in MWC being pushed by caregivers, Mod Ind with FWW for short ambulation(less than 20 feet) Fall History: 1 fall out of bed shortly after he got out of the care center months ago. Orthopedic History (e.g. prior surgeries): R sided BKA 03/2023, Cardiopulmonary History: CAD, CHF, quadruple bypass in 2001, multiple VA's, A- fib Home Environment: Type of home: Single story home with no basement and no KAEL, 4 inch lip at front door and 6 inch lip at back door. Stairs to enter: None Ramp Required: N Stairs within home: None Assistance available: Assistance from for getting around house Immediate outdoor terrain of home: Cement Community Environment: PT 2x/week, wound care 1x/week, visits friends and family routinely and enjoy going out to eat. Current Equipment (note if VA issued or not): MWC provided from Medicare and 4WW provided from [place] Pain: General aches and pains throughout the day. Red Flags: History of skin cancer thats in remission. Denies any UE or LE progressive weakness, unexplained weight loss, loss of bowel/bladder control, pain with rest, fevers, chills, infections. Patient's Goal: Main goal with physical therapy is to obtain a power mobility device for community ambulation and decrease burden on for pushing him around in the MWC. OBJECTIVE: VITALS: Blood Pressure: 118/74 mmHg Heart Rate: 74 bpm O2 Sats: 97% OBSERVATION: INTEGUMENT SCREEN: Skin Integrity: Sore on the back of the heel from May that is almost fully healed now GAIT/MOBILITY Assistive Device Used: 4WW Quality of Gait: Slow, unsteady gait with decreased foot clearance. Forward flexed posture with multiple cues needed to keep walker close to body. Gait speed: 0.26 m/s (measure over 10 feet or 5 ceiling tiles; convert to m/s {10/sec*0.305}) < 0.4 m/s increased falls risk, more likely dependent in ADLs/IADLs 0.4 - 0.8 m/s limited community ambulator, potential need for falls intervention > 0.8 m/s safe community ambulator and no need for falls intervention (MCID: 0.1 m/s) *Timed Up and Go (TUG): -Trial 1: 44.8 sec -Trial 2: 47.6 sec -Average: 46.2 sec -Assisted Device >12 seconds indicated increased risk for falling FUNCTIONAL STRENGTH SCREEN: Transfers (method/assist): Mod Ind with 4WW for stability Gross UE ROM/Strength Screen (indicate pain on testing): 5/5 Gross LE ROM/Strength Screen (indicate pain on testing): 4/5 30-Second Chair Stand Test: 4 reps with use of armrests Normative Repetitions (Alexus & Fidel, 2013) Age Men 80-84 10-15 BALANCE Four Stage Balance Test: (_/10sec) Romber seconds with moderate body swaying throughout test Modified Tandem: 6 seconds before LOB and UE support needed Tandem: Unable Single leg Stance: Unable GOALS: 1. Pt will complete functional mobility assessment in order to determine eligibility for electric mobility in one visit. MET ASSESSMENT: Pt is a 83 year old who presents to PT for functional mobility assessment to determine eligibility for power mobility, with the primary goal of pursuing power mobility for improved ability to travel community and longer distances. Impairments: [ ] 3 limb involvement (explain): [X] dyspnea on exertion with limited activity tolerance [ ] desaturation with activity [ ] significant fatigue from neurological disease or interventions (e.g. chemo or dialysis) limiting activity tolerance [X] other: CHF and R BKA with decreased balance with prosthetic use Functional Status/Limitations: [X] decreased functional mobility from impairments not likely to improve with conventional rehab, non-powered mobility device, or medical intervention [ ] decreased mobility with ability or potential to self-propel optimally configured standard/lightweight manual wheelchair functionally [ ] ability to ambulate functionally with/without assistive device Participation Restrictions: Mobility, decreased balance REHAB POTENTIAL: Fair CLINICAL PRESENTATION: evolving PLAN: Functional mobility assessment complete; automobile service writer will place Rehab Outpatient Power Mobility Consult for further review. Patient Education on Treatment Plan: PT role, POC, rehab expectations. Patient indicated readiness to learn, verbalizes understanding, agreement and satisfaction with the treatment plan. Denies further questions. /riccardo/ CINTHIA JAMESON Physical Therapist Signed: 12/18/2023 12:53 CINTHIA JAMESON ([facility])
--- OUTSIDE RECORDS SUMMARY | 2023-12-19 09:07 | XMS_ITS | Continuity of Care Document ---
Author Name [facility] Organization [facility] Care Team Providers Care Career Advisor Name Role Phone [facility] Unavailable Unavailable Problems Combined list of problems from Department of Defense and Veterans Affairs facilities. It does not include entries that were removed or entered in error. Problem Status Onset Date Problem Type Date of Resolution Comments Source Exposure to potentially hazardous substance ([facility] [id number]) Active 07/20/19 24 Condition Jul 20, 2023 Entered By: MECHELLE DEMPSEY [facility]: [facility] Documentation Initiative [facility] CAD - Coronary Artery Disease ([facility] [id number]) Active Condition [place] ([facility]) CHF - Congestive Heart Failure ([facility] [id number]) Active Condition [place] ([facility]) Diabetes Mellitus Type 2 ([facility] [id number]) Active Condition [place] ([facility]) History of amputation of right leg through tibia and fibula [facility] HTN - Hypertension ([facility] [id number]) Active Condition [place] ([facility]) Hyperlipidemia ([facility] [id number]) Active Condition [facility] Hypothyroidism ([facility] [id number]) Active Condition [place] ([facility]) Long-term current use of insulin Active Condition [place] ([facility]) Peripheral neuropathy due to type 2 diabetes mellitus Active Condition [place] ([facility]) Diagnosis: ICD-10-CM Z74.09 Other reduced mobility Active Diagnosis [place] ([facility]) Diagnosis: ICD-10-CM E11.9 Type 2 diabetes mellitus without complications Active Diagnosis [place] ([facility]) Diagnosis: ICD-10-CM H90.3 Sensorineural hearing loss, bilateral Active Diagnosis [facility] Diagnosis: ICD-10-CM I50.9 Heart failure, unspecified Active Diagnosis [place] ([facility]) Diagnosis: ICD-10-CM R26.89 Other abnormalities of [...] Feb 15, 2023 40 Feb 16, 2024 [id number] Feb 20, 2023 KATHY MURPHY [facility] [facility] ACTIVE 02/16/2024 [id number] KATHY MURPHY 2022 40 [facility] CLOPIDOGREL BISULFATE 75MG TAB CLOPIDOG REL BISULFAT [...] Nov 08, 2023 10 Nov 08, 2024 [id number] Nov 09, 2023 JERMAINE CHESTER [facility] [facility] SUBCUT ANEOUS ACTIVE 11/08/2024 [id number] RYAN CHESTER 2023 10 [facility] [...] at: [facility] [facility] ACTIVE RYAN CHESTER 2020 [facility] ([facility]) Immunizations Combined list of available immunizations from the Department of Defense and Veterans Affairs facilities. Immunization Series Date Given Administered By Site Reaction Lot Number CVX Code Drug Lpn Rn Status Comments Source COVID-19 (PFIZER), MRNA, LNP-S, PF, NAVYA-SUCROSE, 30 MCG/0.3 ML (AGES 12+ YEARS) [address] [facility] INFLUENZA, ADJUVANTED, QUADRIVALENT, PF [address] [facility] RSV, BIVALENT, PROTEIN SUBUNIT RSVPREF, DILUENT RECONSTITUTED , 0.5 ML, PF [address] [facility] INFLUENZA, HIGH-DOSE, QUADRIVALENT [address] [facility] COVID-19 (MODERNA), MRNA, LNP-S, BIVALENT, PF, 50 MCG/0.5 ML OR 25MCG/0.25 ML DOSE [address] [facility] COVID-19 (MODERNA), MRNA, LNP-S, PF, 100 MCG/0.5ML DOSE OR 50 MCG/0.25ML DOSE [address] [facility] COVID-19 (PFIZER), MRNA, LNP-S, PF, 30 MCG/0.3 ML DOSE 3 2020 208 complet ed [facility] INFLUENZA, HIGH-DOSE, QUADRIVALENT, PF [address] [facility] INFLUENZA, UNSPECIFIED FORMULATION 2020 88 complet ed [facility] TDAP 2020 115 complet ed GlaxPositive[facility] hKline, [id number] , exp-2022 and given VIS [...] [address] [facility] INFLUENZA, ADJUVANTED, TRIVALENT, PF [address] [facility] INFLUENZA, UNSPECIFIED FORMULATION 2019 88 complet ed [facility] INFLUENZA, HIGH-DOSE, TRIVALENT, PF [address] [facility] INFLUENZA, ADJUVANTED, TRIVALENT, PF [address] [facility] INFLUENZA, UNSPECIFIED FORMULATION [address] [facility] INFLUENZA, HIGH-DOSE, TRIVALENT, PF [address] [facility] PNEUMOCOCCAL CONJUGATE PCV 13 2014 133 complet ed Per [facility] INFLUENZA, SPLIT VIRUS, TRIVALENT, PRESERVATIVE [address] [facility] INFLUENZA, SPLIT VIRUS, TRIVALENT, PRESERVATIVE [address] [facility] INFLUENZA, SPLIT VIRUS, TRIVALENT, PF [address] [facility] PNEUMOCOCCAL POLYSACCHARID E PPV23 2010 33 complet ed [facility] INFLUENZA, SPLIT VIRUS, TRIVALENT, PRESERVATIVE [address] [facility] INFLUENZA, SPLIT VIRUS, TRIVALENT, PF [address] [facility] INFLUENZA, SPLIT VIRUS, TRIVALENT, PRESERVATIVE [address] [facility] INFLUENZA, SPLIT VIRUS, TRIVALENT, PRESERVATIVE [address] [facility] INFLUENZA, SPLIT VIRUS, TRIVALENT, PRESERVATIVE [address] [facility] PNEUMOCOCCAL POLYSACCHARID E PPV23 2005 33 complet ed [facility] TD (ADULT), 5 LF TETANUS TOXOID, PRESERVATIVE FREE, ADSORBED [address] [facility] INFLUENZA, SPLIT VIRUS, TRIVALENT, PRESERVATIVE [address] [facility] INFLUENZA, SPLIT VIRUS, TRIVALENT, PRESERVATIVE [address] [facility] INFLUENZA, SPLIT VIRUS, TRIVALENT, PRESERVATIVE [address] [facility] Results Combined list of recent chemistry, [...] Jan 23, 2023 02:00 PM Reporting Lab: [facility] [address] Performing Lab: [facility] [address] [place] ([facility]) BASIC METABOLIC PANEL+MG UREA NITROGEN [MASS/VOLUM E] IN SERUM OR PLASMA 35 mg/dL 8 - 26 01/23 H Specimen Type: PLASMA No comment entered. Ordering Provider: AILIN CHESTER Report Released Date/Time: Jan 23, 2023 02:00 PM Reporting Lab: [facility] [address] Performing Lab: [facility] [address] [place] ([facility]) BASIC METABOLIC PANEL+MG GLUCOSE [MASS/VOLUM E] IN SERUM OR PLASMA 239 mg/dL 70 - 100 01/23 H Specimen Type: PLASMA No comment entered. Ordering Provider: AILIN CHESTER Report Released Date/Time: Jan 23, 2023 02:00 PM Reporting Lab: [place] [address] Performing Lab: [address] ([facility]) BASIC METABOLIC PANEL+MG SODIUM [MOLES/VOLU ME] IN SERUM OR PLASMA 140 mmol/L 136 - 145 01/23 Specimen Type: PLASMA No comment entered. Ordering Provider: AILIN CHESTER Report Released Date/Time: Jan 23, 2023 02:00 PM Reporting Lab: [place] [address] Performing Lab: [address] ([facility]) BASIC METABOLIC PANEL+MG POTASSIUM [MOLES/VOLU ME] IN SERUM OR PLASMA 5.1 mmol/L 3.5 - 5.1 01/23 Specimen Type: PLASMA No comment entered. Ordering Provider: AILIN CHESTER Report Released Date/Time: Jan 23, 2023 02:00 PM Reporting Lab: [place] [address] Performing Lab: [place] [address] [place] [address] ([facility]) BASIC METABOLIC PANEL+MG CHLORIDE [MOLES/VOLU ME] IN SERUM OR PLASMA 109 mmol/L 98 - 107 01/23 H Specimen Type: PLASMA No comment entered. Ordering Provider: AILIN CHESTER Report Released Date/Time: Jan 23, 2023 02:00 PM Reporting Lab: [facility] [address] Performing Lab: [address] ([facility]) BASIC METABOLIC PANEL+MG CARBON DIOXIDE, TOTAL [MOLES/VOLU ME] IN SERUM OR PLASMA 21 mmol/L 22 - 29 01/23 L Specimen Type: PLASMA No comment entered. Ordering Provider: AILIN CHESTER Report Released Date/Time: Jan 23, 2023 02:00 PM Reporting Lab: [facility] [address] Performing Lab: [facility] [address] [place] ([facility]) BASIC METABOLIC PANEL+MG CALCIUM [MASS/VOLUM E] IN SERUM OR PLASMA 9.4 mg/dL 8.4 - 10.2 01/23 Specimen Type: PLASMA No comment entered. Ordering Provider: AILIN CHESTER Report Released Date/Time: Jan 23, 2023 02:00 PM Reporting Lab: [place] [address] Performing Lab: [place] [phone] [place] ([facility]) BASIC METABOLIC PANEL+MG MAGNESIUM [MASS/VOLUM E] IN SERUM OR PLASMA 1.7 mg/dL 1.6 - 2.6 01/23 Specimen Type: PLASMA No comment entered. Ordering Provider: AILIN CHESTER Report Released Date/Time: Jan 23, 2023 02:00 PM Reporting Lab: [facility] [address] Performing Lab: [facility] [address] [place] ([facility]) BASIC METABOLIC PANEL+MG ANION GAP IN SERUM OR PLASMA 10 mmol/L 5 - 15 01/23 Specimen Type: PLASMA No comment entered. Ordering Provider: AILIN CHESTER Report Released Date/Time: Jan 23, 2023 02:00 PM Reporting Lab: [facility] [address] Performing Lab: [place] [phone] [place] [address] ([facility]) BASIC METABOLIC PANEL+MG GLOMERULAR FILTRATION RATE/1.73 SQ M.PREDICTED [VOLUME RATE/AREA] IN SERUM, PLASMA OR BLOOD BY CREATININE- BASED FORMULA (CKD-EPI 2020) 61 60 01/23 Specimen Type: PLASMA No comment entered. Ordering Provider: AILIN CHESTER Report Released Date/Time: Jan 23, 2023 02:00 PM Reporting Lab: [place] [phone] Performing Lab: [place] [phone] [place] (OC) BNP NATRIURETIC PEPTIDE B [MASS/VOLUM E] IN SERUM OR PLASMA 1549 pg/mL <99 - 99 01/23 H Specimen Type: PLASMA No comment entered. Ordering Provider: AILIN CHESTER Report Released Date/Time: Jan 23, 2023 02:00 PM Reporting Lab: [facility] [address] Performing Lab: [facility] [address] [place] ([facility]) MICROALBU MIN/CREAT ININE RATIO URINE CREATININE [MASS/VOLUM E] IN URINE 132.8 mg/dL 58.0 - 161.0 11/23 Specimen Type: URINE No comment entered. Ordering Provider: AILIN CHESTER Report Released Date/Time: Nov 23, 2022 11:58 AM Reporting Lab: [facility] [address] Performing Lab: [facility] [address] [place] ([facility]) MICROALBU MIN/CREAT ININE RATIO URINE MICROALBUMI N/CREATININ E [MASS RATIO] IN URINE 28.0 mg/g{c reat} 11/23 Specimen Type: URINE No comment entered. Ordering Provider: AILIN CHESTER Report Released Date/Time: Nov 23, 2022 11:58 AM Reporting Lab: [facility] [address] Performing Lab: [facility] [address] [place] ([facility]) MICROALBU MIN/CREAT ININE RATIO URINE MICROALBUMI N [MASS/VOLUM E] IN URINE 37.2 mg/L 11/23 H Specimen Type: URINE No comment entered. Ordering Provider: AILIN CHESTER Report Released Date/Time: Nov 23, 2022 11:58 AM Reporting Lab: [facility] [address] Performing Lab: [facility] [address] [place] ([facility]) LIPID PANEL,NON -FASTING CHOLESTEROL [MASS/VOLUM E] IN SERUM OR PLASMA 130 mg/dL 11/23 Specimen Type: PLASMA No comment entered. Ordering Provider: AILIN CHESTER Report Released Date/Time: Nov 23, 2022 11:58 AM Reporting Lab: [facility] [address] Performing Lab: [facility] [address] [place] ([facility]) LIPID PANEL,NON -FASTING CHOLESTEROL IN HDL [MASS/VOLUM E] IN SERUM OR PLASMA 39 mg/dL 11/23 L Specimen Type: PLASMA No comment entered. Ordering Provider: AILIN CHESTER Report Released Date/Time: Nov 23, 2022 11:58 AM Reporting Lab: [facility] [address] Performing Lab: [facility] [phone] [place] [address] ([facility]) LIPID PANEL,NON -FASTING CHOLESTEROL IN LDL [MASS/VOLUM E] IN SERUM OR PLASMA BY CALCULATION 73 mg/dL 11/23 Specimen Type: PLASMA No comment entered. Ordering Provider: AILIN CHESTER Report Released Date/Time: Nov 23, 2022 11:58 AM Reporting Lab: [facility] [address] Performing Lab: [address] ([facility]) LIPID PANEL,NON -FASTING CHOLESTEROL IN VLDL [MASS/VOLUM E] IN SERUM OR PLASMA BY CALCULATION 18 mg/dL 11/23 Specimen Type: PLASMA No comment entered. Ordering Provider: AILIN CHESTER Report Released Date/Time: Nov 23, 2022 11:58 AM Reporting Lab: [facility] [address] Performing Lab: [facility] [phone] [place] [address] ([facility]) LIPID PANEL,NON -FASTING CHOLESTEROL NON HDL [MASS/VOLUM E] IN SERUM OR PLASMA 91 mg/dL 11/23 Specimen Type: PLASMA No comment entered. Ordering Provider: AILIN CHESTER Report Released Date/Time: Nov 23, 2022 11:58 AM Reporting Lab: [facility] [address] Performing Lab: [facility] [address] [place] ([facility]) LIPID PANEL,NON -FASTING TRIGLYCERID E [MASS/VOLUM E] IN SERUM OR PLASMA 92 mg/dL 11/23 Specimen Type: PLASMA No comment entered. Ordering Provider: AILIN CHESTER Report Released Date/Time: Nov 23, 2022 11:58 AM Reporting Lab: [facility] [address] Performing Lab: [facility] [address] [place] ([facility]) CBC LEUKOCYTES [#/VOLUME] IN BLOOD BY AUTOMATED COUNT 10.80 10*3/u L 4.0 - 11.0 11/23 Specimen Type: BLOOD No comment entered. Ordering Provider: AILIN CHESTER Report Released Date/Time: Nov 23, 2022 11:58 AM Reporting Lab: [facility] [address] Performing Lab: [place] [address] [place] ([facility]) CBC ERYTHROCYTE S [#/VOLUME] IN BLOOD BY AUTOMATED COUNT 3.87 10*6/u L 4.6 - 6.2 11/23 L Specimen Type: BLOOD No comment entered. Ordering Provider: AILIN CHESTER Report Released Date/Time: Nov 23, 2022 11:58 AM Reporting Lab: [facility] [address] Performing Lab: [place] [phone] [place] ([facility]) CBC HEMOGLOBIN [MASS/VOLUM E] IN BLOOD 12.1 g/dL 13.5 - 17.9 11/23 L Specimen Type: BLOOD No comment entered. Ordering Provider: AILIN CHESTER Report Released Date/Time: Nov 23, 2022 11:58 AM Reporting Lab: [facility] [address] Performing Lab: [facility] [address] [place] ([facility]) CBC HEMATOCRIT [VOLUME FRACTION] OF BLOOD BY AUTOMATED COUNT 37.5 41 - 54 11/23 L Specimen Type: BLOOD No comment entered. Ordering Provider: AILIN CHESTER Report Released Date/Time: Nov 23, 2022 11:58 AM Reporting Lab: [facility] [address] Performing Lab: [facility] [phone] [place] [address] ([facility]) CBC MCV [ENTITIC VOLUME] BY AUTOMATED COUNT 96.9 fL 80 - 100 11/23 Specimen Type: BLOOD No comment entered. Ordering Provider: AILIN CHESTER Report Released Date/Time: Nov 23, 2022 11:58 AM Reporting Lab: [facility] [address] Performing Lab: [address] [place] ([facility]) CBC MCH [ENTITIC MASS] BY AUTOMATED COUNT 31.3 pg 27 - 33 11/23 Specimen Type: BLOOD No comment entered. Ordering Provider: AILIN CHESTER Report Released Date/Time: Nov 23, 2022 11:58 AM Reporting Lab: [facility] [address] Performing Lab: [place] [phone] [place] [address] ([facility]) CBC MCHC [MASS/VOLUM E] BY AUTOMATED COUNT 32.3 g/dL 32.0 - 37.5 11/23 Specimen Type: BLOOD No comment entered. Ordering Provider: AILIN CHESTER Report Released Date/Time: Nov 23, 2022 11:58 AM Reporting Lab: [address] Performing Lab: [address] ([facility]) CBC PLATELETS [#/VOLUME] IN BLOOD BY AUTOMATED COUNT 293 10*3/u L 150 - 400 11/23 Specimen Type: BLOOD No comment entered. Ordering Provider: AILIN CHESTER Report Released Date/Time: Nov 23, 2022 11:58 AM Reporting Lab: [facility] [address] Performing Lab: [facility] [phone] [place] [address] ([facility]) CBC PLATELET MEAN VOLUME [ENTITIC VOLUME] IN BLOOD BY AUTOMATED COUNT 10.3 fL 7.4 - 10.4 11/23 Specimen Type: BLOOD No comment entered. Ordering Provider: AILIN CHESTER Report Released Date/Time: Nov 23, 2022 11:58 AM Reporting Lab: [facility] [address] Performing Lab: [facility] [address] [place] ([facility]) CBC ERYTHROCYTE DISTRIBUTIO N WIDTH [RATIO] BY AUTOMATED COUNT 13.2 11.5 - 14.5 11/23 Specimen Type: BLOOD No comment entered. Ordering Provider: AILIN CHESTER Report Released Date/Time: Nov 23, 2022 11:58 AM Reporting Lab: [facility] [address] Performing Lab: [facility] [address] [place] ([facility]) TSH W/REFLEX TO FREE T4 THYROTROPIN [UNITS/VOLU ME] IN SERUM OR PLASMA 4.59 u[IU]/ mL 0.35 - 4.94 11/23 Specimen Type: PLASMA No comment entered. Ordering Provider: AILIN CHESTER Report Released Date/Time: Nov 23, 2022 11:58 AM Reporting Lab: [place] [address] Performing Lab: [address] ([facility]) COMPREHEN SIVE METABOLIC PANEL+MG CREATININE [MASS/VOLUM E] IN SERUM OR PLASMA 1.2 mg/dL 0.7 - 1.2 11/23 Specimen Type: PLASMA No comment entered. Ordering Provider: AILIN CHESTER Report Released Date/Time: Nov 23, 2022 11:58 AM Reporting Lab: [place] [address] Performing Lab: [address] ([facility]) COMPREHEN SIVE METABOLIC PANEL+MG UREA NITROGEN [MASS/VOLUM E] IN SERUM OR PLASMA 34 mg/dL 8 - 26 11/23 H Specimen Type: PLASMA No comment entered. Ordering Provider: AILIN CHESTER Report Released Date/Time: Nov 23, 2022 11:58 AM Reporting Lab: [place] [address] Performing Lab: [address] ([facility]) COMPREHEN SIVE METABOLIC PANEL+MG GLUCOSE [MASS/VOLUM E] IN SERUM OR PLASMA 54 mg/dL 70 - 100 11/23 L Specimen Type: PLASMA No comment entered. Ordering Provider: AILIN CHESTER Report Released Date/Time: Nov 23, 2022 11:58 AM Reporting Lab: [place] [address] Performing Lab: [address] ([facility]) COMPREHEN SIVE METABOLIC PANEL+MG SODIUM [MOLES/VOLU ME] IN SERUM OR PLASMA 143 mmol/L 136 - 145 11/23 Specimen Type: PLASMA No comment entered. Ordering Provider: IALIN CHESTER Report Released Date/Time: Nov 23, 2022 11:58 AM Reporting Lab: [place] [phone] Performing Lab: [facility] [address] [place] ([facility]) COMPREHEN SIVE METABOLIC PANEL+MG POTASSIUM [MOLES/VOLU ME] IN SERUM OR PLASMA 4.4 mmol/L 3.5 - 5.1 11/23 Specimen Type: PLASMA No comment entered. Ordering Provider: AILIN CHESTER Report Released Date/Time: Nov 23, 2022 11:58 AM Reporting Lab: [place] [phone] Performing Lab: [place] [phone] [place] ([facility]) COMPREHEN SIVE METABOLIC PANEL+MG CHLORIDE [MOLES/VOLU ME] IN SERUM OR PLASMA 107 mmol/L 98 - 107 11/23 Specimen Type: PLASMA No comment entered. Ordering Provider: AILIN CHESTER Report Released Date/Time: Nov 23, 2022 11:58 AM Reporting Lab: [facility] [address] Performing Lab: [facility] [address] [place] ([facility]) COMPREHEN SIVE METABOLIC PANEL+MG CARBON DIOXIDE, TOTAL [MOLES/VOLU ME] IN SERUM OR PLASMA 23 mmol/L 22 - 29 11/23 Specimen Type: PLASMA No comment entered. Ordering Provider: AILIN CHESTER Report Released Date/Time: Nov 23, 2022 11:58 AM Reporting Lab: [facility] [address] Performing Lab: [facility] [address] [place] ([facility]) COMPREHEN SIVE METABOLIC PANEL+MG CALCIUM [MASS/VOLUM E] IN SERUM OR PLASMA 9.7 mg/dL 8.4 - 10.2 11/23 Specimen Type: PLASMA No comment entered. Ordering Provider: AILIN CHESTER Report Released Date/Time: Nov 23, 2022 11:58 AM Reporting Lab: [facility] [address] Performing Lab: [facility] [address] [place] ([facility]) COMPREHEN SIVE METABOLIC PANEL+MG PROTEIN [MASS/VOLUM E] IN SERUM OR PLASMA 7.2 g/dL 6.0 - 8.3 11/23 Specimen Type: PLASMA No comment entered. Ordering Provider: AILIN CHESTER Report Released Date/Time: Nov 23, 2022 11:58 AM Reporting Lab: [place] [phone] Performing Lab: [facility] [phone] [place] [address] ([facility]) COMPREHEN SIVE METABOLIC PANEL+MG ALBUMIN [MASS/VOLUM E] IN SERUM OR PLASMA 4.1 g/dL 3.5 - 5.2 11/23 Specimen Type: PLASMA No comment entered. Ordering Provider: AILIN CHESTER Report Released Date/Time: Nov 23, 2022 11:58 AM Reporting Lab: [facility] [address] Performing Lab: [address] [place] [address] ([facility]) COMPREHEN SIVE METABOLIC PANEL+MG BILIRUBIN.T OTAL [MASS/VOLUM E] IN SERUM OR PLASMA 0.5 mg/dL 0.2 - 1.2 11/23 Specimen Type: PLASMA No comment entered. Ordering Provider: AILIN CHESTER Report Released Date/Time: Nov 23, 2022 11:58 AM Reporting Lab: [facility] [address] Performing Lab: [facility] [phone] [place] [address] ([facility]) COMPREHEN SIVE METABOLIC PANEL+MG MAGNESIUM [MASS/VOLUM E] IN SERUM OR PLASMA 1.4 mg/dL 1.6 - 2.6 11/23 L Specimen Type: PLASMA No comment entered. Ordering Provider: AILIN CHESTER Report Released Date/Time: Nov 23, 2022 11:58 AM Reporting Lab: [facility] [address] Performing Lab: [facility] [phone] [place] [address] ([facility]) COMPREHEN SIVE METABOLIC PANEL+MG ANION GAP IN SERUM OR PLASMA 13 mmol/L 5 - 15 11/23 Specimen Type: PLASMA No comment entered. Ordering Provider: AILIN CHESTER Report Released Date/Time: Nov 23, 2022 11:58 AM Reporting Lab: [facility] [address] Performing Lab: [facility] [phone] ([facility]) COMPREHEN SIVE METABOLIC PANEL+MG ALKALINE PHOSPHATASE [ENZYMATIC ACTIVITY/VO LUME] IN SERUM OR PLASMA 87 U/L 40 - 150 11/23 Specimen Type: PLASMA No comment entered. Ordering Provider: AILIN CHESTER Report Released Date/Time: Nov 23, 2022 11:58 AM Reporting Lab: [place] [address] Performing Lab: [address] ([facility]) COMPREHEN SIVE METABOLIC PANEL+MG ALANINE AMINOTRANSF ERASE [ENZYMATIC ACTIVITY/VO LUME] IN SERUM OR PLASMA 28 U/L 11/23 Specimen Type: PLASMA No comment entered. Ordering Provider: AILIN CHESTER Report Released Date/Time: Nov 23, 2022 11:58 AM Reporting Lab: [place] [address] Performing Lab: [address] ([facility]) COMPREHEN SIVE METABOLIC PANEL+MG ASPARTATE AMINOTRANSF ERASE [ENZYMATIC ACTIVITY/VO LUME] IN SERUM OR PLASMA 33 U/L 11/23 Specimen Type: PLASMA No comment entered. Ordering Provider: AILIN CHESTER Report Released Date/Time: Nov 23, 2022 11:58 AM Reporting Lab: [place] [address] Performing Lab: [address] ([facility]) COMPREHEN SIVE METABOLIC PANEL+MG GLOMERULAR FILTRATION RATE/1.73 SQ M.PREDICTED [VOLUME RATE/AREA] IN SERUM, PLASMA OR BLOOD BY CREATININE- BASED FORMULA (CKD-EPI 2020) 61 11/23 Specimen Type: PLASMA No comment entered. Ordering Provider: AILIN CHESTER Report Released Date/Time: Nov 23, 2022 11:58 AM Reporting Lab: [place] [address] Performing Lab: [address] ([facility]) HEMOGLOBI N A1C HEMOGLOBIN A1C/HEMOGLO BIN.TOTAL [...] Nov 23, 2022 11:58 AM Reporting Lab: [facility] [id number] Performing Lab: [facility] [id number] [place] ([facility]) Vital Signs Combined list of inpatient and outpatient Vital Signs from Department of [facility] and [facility], ranging from 12 months to all on record, depending upon the facility. Vital Sign Value Date Comments Source Encounters Combined list of: 1) Encounters from Department of Veterans Affairs facilities going back up to thelast 18 months. 2) Encounters from the Department of [facility] facilities going back up to 280 months. Location Location Details Encounter Type Encounter Number Reason For Visit Attending Provider ADM Date DC Date Status Disposition Source [facility] En[facility] [id number] 07/31 [facility] Encounter [id number] 08/21 [facility] Outpatient Encounter [id number] 09/20 [facility] Outpatient Encounter [id number] 11/11 [facility] Outpatient Encounter [id number] ZARI POWER 11/16 [facility] Encounter [id number] 11/21 [facility] ([facility]) OFFICE O/P EST MOD 30-39 MIN [id number] Diagnos is: ICD-10- CM Z00.00 Encntr for general adult medical exam w/o abnorma l finding s
CANDELARIO CHESTER 11/23 [facility] ([facility]) [facility]) GAIT TRAINING THERAPY [id number] Diagnos is: ICD-10- CM R26.89 Other abnorma lities of gait and mobilit y
OMAYRA JAMESON V 11/23 [place] ([facility] [place] [facility] Out[facility] Encounter [id number] SA JAMARI JAMESON R 12/11 [place] [facility] [place] [facility] Encounter [id number] 12/25 [place] [facility] [place] [facility] Encounter [id number] SA TRINO RA R 12/28 [place] [facility] [place] [facility] Encounter [id number] 01/05 [place] [facility] [place] [facility] Out[facility] Encounter [id number] 01/11 [place] [facility] [place] [facility] Outpatient Encounter [id number] 01/16 [place] [facility] ([facility]) OFFICE O/P EST HI 40-54 MIN [id number] Diagnos is: ICD-10- CM I50.9 Heart failure , unspeci fied
CANDELARIO CHESTER 01/23 [facility] ([facility] [place] [facility] Outpatient Encounter [id number] Marcus POTTS I 01/24 [place] [facility] [place] [facility] Out[facility] Encounter [id number] Danica TORRE 02/05 [place] [facility] [place] [facility] Out[facility] Encounter [id number] 02/09 [place] [facility] [place] [facility] Out[facility] Encounter [id number] Danica TORRE 02/09 [place] [facility] [place] [facility] Out[facility] Encounter [id number] 02/14 [place] [facility] [place] [facility] Out[facility] Encounter [id number] 02/15 [place] [facility] [place] [facility] Encounter [id number] 02/19 [place] [facility] [place] [facility] Outpatient Encounter [id number] 02/20 [place] [facility] [place] [facility] Out[facility] Encounter [id number] 02/20 [place] [facility] [place] [facility] Out[facility] Encounter [id number] 02/20 [place] [facility] [place] [facility] Outpatient Encounter [id number] 02/20 [place] [facility] [place] [facility] Out[facility] Encounter [id number] 02/21 [place] [facility] [place] [facility] QNHP OL DIG ASSMT&MGMT 5-10 [id number] Diagnos is: ICD-10- CM E11.9 Type 2 diabete s mellitu s without complic ations< br/> HARDER,SIVA LY 02/22 [place] [facility] PRO PHONE CALL 11-20 MIN [id number] Diagnos is: ICD-10- CM I50.9 Heart failure , unspeci fied
JERMAINE ALCANTAR ANDON M 02/23 [place] ([facility] [place] [facility] Outpatient Encounter [id number] 02/26 [place] [facility] [place] [facility] Out[facility] Encounter [id number] 03/01 [place] [facility] [place] [facility] Outpatient Encounter [id number] 03/05 [place] [facility] [place] [facility] Outpatient Encounter [id number] SA RA Sandra JAMESON 03/09 [place] [facility] [place] [facility] Outpatient Encounter [id number] 03/14 [place] [facility] [place] [facility] Outpatient Encounter [id number] TRINO RA R 04/12 [place] [facility] [place] [facility] Outpatient Encounter [id number] TRINO RA R 04/16 [place] [facility] [place] [facility] Outpatient Encounter [id number] TRINO RA R 05/01 [place] [facility] [place] [facility] Outpatient Encounter [id number] 07/11 [facility] [place] [facility] Out[facility] Encounter [id number] [facility] [place] [facility] Out[facility] Encounter [id number] 07/12 [facility] [place] [facility] PRO PHONE CALL 5-10 MIN [id number] Diagnos is: ICD-10- CM 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
VIV BARFIELD 07/19 [facility] HEARING AID REPAIR/MOD IFYING [id number] Diagnos is: ICD-10- CM 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
CARY CORCORAN 08/09 [facility] [place] [facility]ING A[facility] FITTING/CH ECKING [id number] Diagnos is: ICD-10- CM 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
Sy MAKI 09/17 [facility] [place] [facility] Outpatient Encounter [id number] 10/17 [facility] ([facility]) OFFICE O/P EST HI 40 MIN [id number] Diagnos is: ICD-10- CM E11.9 Type 2 diabete s mellitu s without complic ations< br/> CANDELARIO CHESTER DA K 11/07 [place] ([facility]) [place] ([facility]) PT EVAL MOD COMPLEX 30 MIN [id number] Diagnos is: ICD-10- CM Z74.09 Other reduced mobilit y
[facility]ON [facility] V [facility] Social History Combined list of available smoking, tobacco, and other social history from Department of Defense and Veterans Affairs facilities. Social History Type Response Date Comment Sourc e Tobacco smoking status NHIS VA-TOBACCO FORMER USER 11/08/2023 [place] ([facility]) History of tobacco use VA-TOBACCO QUIT 1 5 YRS OR MORE 11/08/2023 [place] ([facility]) History of tobacco use VA-TOBACCO FORMER USER 11/23/2022 [place] ([facility]) History of tobacco use VA-TOBACCO FORMER USER 11/29/2021 [place] ([facility]) History of tobacco use VA-TOBACCO FORMER USER 10/21/2020 [place] ([facility]) Plan of Care List of future care activities from Department of Veterans Affairs facilities. Additional future care activities may be listed in the Assessment and Plan section. Date/Time Care Activity Care Activity Detail Facili ty 12/18/2023 Consult Order REHAB OUTPT [place] [facility] PM&R PT Cons Pl[employer]er[employer] Choice [place] ([facility])
--- OUTSIDE RECORDS SUMMARY | 2023-12-19 09:08 | XMS_ITS | Clinical Summary ---
Author Organization [facility] Address [address] [place] [address] Care Team Providers Care Human Resource Advisor Name Role Phone Elsewhere, Pcp Primary Care Provider Unavailabl e Source Comments Patient records contain information from all sites at [facility]. For routine questions regarding patient records, call [phone] during business hours, M-F 8:00 AM - 5:00 PM Central Time. Record requests for emergency care only can be directed to [phone] at any time.[facility] Allergies No known active allergies Medications Medication [...] guaze. Assessment & Plan (06/15/2023 4:18 PM RELEASE MANAGER): The wound bed is clean. A thin layer of silver stat will be applied with a gauze. Change daily. 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 Left Heel: Area continues to improve. Wound measures 1.5sfW0sp. Edges well defined, attached and 100% re-epithelialized tissues. Granulation tissue is observed along the lining of the edges under the bed of slough/eschar. Eschar is soft but not mushy. Wound bed is still approx 95% or more of slough/eschar. Scant drainage with dressing change. Resident tolerated cares without any concerns. New wound orders as follows: Assessment & Plan (06/15/2023 4:10 PM RELEASE MANAGER): 1: Gently cleanse area with NS. Pat dry. 2. Skin prep to gonsalo-wound. 3. Santyl to wound bed only. 4. Place gauze over wound. 5. cover with island dressing. 6. Change dressing daily. He may be discharged to home with home nursing for wound care . Assessment & Plan (06/01/2023 2:33 PM RELEASE MANAGER): Continue wound care and have [facility] evaluate in one week. Dementia 05/20/2023 Overview (05/24/2023): No documented dementia or behaviors Assessment & Plan (05/24/2023 5:57 PM RELEASE MANAGER): He has low hearing which could contribute to him not understanding Assessment & Plan (05/20/2023 4:20 PM RELEASE MANAGER): Although initial BIMS testing scored 14, he has had episodes of what seems to be sundowning with strong suspicion of underlying dementia. Will have OT further evaluate. Hyperglycemia 04/22/2023 Overview (04/22/2023): Prior to recent hospitalization, insulin glargine dose was 25 units daily and short-acting insulin 10 units with meals. Assessment & Plan (05/24/2023 6:00 PM RELEASE MANAGER): A1C 7.2 He will follow up with his PCP in [place] Assessment & Plan (04/22/2023 8:28 PM RELEASE MANAGER): His appetite has been poor and he has been getting much less insulin than he is used to. His sugars however have been high. Will gradually increase mealtime insulin to 7 units. Previously on 10 units with meals. 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 He will need a standard wheelchair Mr. Woods was admitted to [facility] April 10 following BK right lower extremity. [...] site Assessment & Plan (04/16/2023 7:55 PM RELEASE MANAGER): Pain is well controlled. Stump care consists of washing with normal saline and dry. Cover with dry gauze or ABD b.i.d. he is wearing the knee brace to maintain extension in his working with therapies. He has follow-up with vascular surgery 05/11/2023. Assessment & Plan (04/12/2023 4:53 PM RELEASE MANAGER): Patient and mentioned he is doing [...] 75mcg. Assessment & Plan (06/05/2023 9:25 PM RELEASE MANAGER): TSH value improved compared to prior value of 16.0 a month ago. Resident /nursing denied symptoms of hypothyroidism. Last T4 was 0.92 in April 2023. vice president of news confirmed levothyroxine is given every morning (6am) without other medications. Therefore, we will increase levothyroxine 50mcg to 75mcg and rechecked TSH in 6 weeks. Nursing instructed to continue monitoring for symptoms of hypothyroidism and contact [facility] provider if any concerns. Assessment & Plan (05/24/2023 5:24 PM RELEASE MANAGER): Increase levothyroxine to 50 mcg daily. [facility] may give two 25 mcg tablets to equal 50 mcg. He will be discharging in a week Assessment & Plan (04/23/2023 12:56 PM RELEASE MANAGER): TSH will be done. He is currently on levothyroxine 25 mcg daily. Dose will need to be adjusted if TSH is elevated. Assessment & Plan (04/16/2023 7:56 PM RELEASE MANAGER): Recheck TSH mid April. Assessment & Plan (04/12/2023 4:45 PM RELEASE MANAGER): Continue levothyroxine. TSH reordered. 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 Assessment & Plan (04/12/2023 4:08 PM RELEASE MANAGER): Plans to discharge back home. Patient [...] status Assessment & Plan (05/24/2023 5:15 PM RELEASE MANAGER): He will be full code Assessment & Plan (01/17/2023 2:30 PM CDT): Continue full code status Hyperlipidemia 01/16/2023 Overview (05/24/2023): On atorvastatin Assessment & Plan (05/24/2023 6:01 PM RELEASE MANAGER): Stay on statin Assessment & Plan (01/17/2023 2:35 PM CDT): Continue atorvastatin Assessment & Plan (01/17/2023 2:01 PM CDT): Continue atorvastatin Weakness General 01/16/2023 Overview (01/16/2023): This is multifactorial and related to recent hospitalizations and multiple comorbidities. Assessment & Plan (06/05/2023 9:26 PM RELEASE MANAGER): Denied weakness. We will continue therapy. Assessment & Plan (05/24/2023 6:05 PM RELEASE MANAGER): He is getting stronger with therapy. He will continue therapy when he gets his prosthesis. He will have a wheelchair upon discharge. Assessment & Plan (04/12/2023 4:09 PM RELEASE MANAGER): Verbalized improvement with weakness. We will [...] 04/11/2023 Assessment & Plan (04/12/2023 3:58 PM RELEASE MANAGER): Stable. Denied dizziness, lightheadedness, shortness of breaths and palpitation. Assessment & Plan (01/17/2023 2:30 PM CDT): Stable. Assessment & Plan (01/17/2023 1:58 PM CDT): Stable. Assessment & Plan (01/16/2023 7:16 PM CDT): Most recent hemoglobin 9.3. 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 Assessment & Plan (05/24/2023 5:52 PM RELEASE MANAGER): Stable on current meds Assessment & Plan (04/23/2023 1:02 PM RELEASE MANAGER): BNAP 31,578 on 04/16/23. Dr. Gerardo increased furosemide to 40 mg bid and added spironolactone 25 mg daily. Weight today in [place] was 174 lb. No edema noted in left leg. No dyspnea. On O2 per N/C continuous. No change in medications until renal function results are available. Assessment & Plan (04/16/2023 7:41 PM RELEASE MANAGER): He had multiple medication changes during hospitalization including discontinuation of spironolactone and Entresto. Farxiga is being held. Metoprolol and furosemide doses were decreased. Assessment & Plan (04/12/2023 4:01 PM RELEASE MANAGER): No admission weight yet. 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 Continue care plan. Assessment & Plan (01/17/2023 2:31 PM CDT): HR well controlled ranging from 64-99. Continue care plan. Assessment & Plan (01/16/2023 8:24 AM CDT): HR well controlled. Continue care plan. 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 Assessment & Plan (05/24/2023 5:20 PM RELEASE MANAGER): Nurse reports he is nonadherent to [...] daily Assessment & Plan (06/07/2023 2:51 PM RELEASE MANAGER): Blood sugars have been elevated due [...] hypoglycemia. Assessment & Plan (05/29/2023 7:56 PM RELEASE MANAGER): Patient's blood sugar continued to be [...] possible. Assessment & Plan (05/24/2023 5:59 PM RELEASE MANAGER): Insulin dependent not always compliant with diet. Glargine will be increased to 17 units. Assessment & Plan (05/22/2023 6:43 PM RELEASE MANAGER): Blood sugar continued to be elevated [...] 3 times daily with meals. Follow-up with [facility] next week. Dietitian/dietary to visit with patient and to discuss food options. Assessment & Plan (05/20/2023 4:22 PM RELEASE MANAGER): Recent blood sugars in the SNF setting have been elevated. Short and long-acting insulin doses have changed significantly since admission. Will have him follow- up with [facility] for further review of blood sugars. Assessment & Plan (04/23/2023 1:04 PM RELEASE MANAGER): Blood sugars not controlled. Increase Lantus to 14 units from 12. Assessment & Plan (04/16/2023 7:42 PM RELEASE MANAGER): Was previously on glipizide and higher doses of mealtime aspart. Blood sugars are being checked 4 times daily. May need insulin readjusted. Assessment & Plan (04/12/2023 4:04 PM RELEASE MANAGER): Blood sugars have been I< 200s. [...] to 25 units and follow-up. 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 Assessment & Plan (05/24/2023 5:14 PM RELEASE MANAGER): Stable Assessment & Plan (04/29/2023 7:54 PM RELEASE MANAGER): Today, nursing had reported left lower calf and ankle redness with open wound. On assessing the left calf/ankle, there was an open skin area (abrasion) that has no redness, swelling nor drainage. The skin was not warmth to touch and patient denied pain at 0/10 (nurse self storage manager was in attendance during visit). Nursing stated does look better than what it was this morning. They have been cleaning the wound area in apply Mepilex. Since there was no symptoms or evidence of infection on the left lower calf and ankle redness with open wound, nursing was instructed to continue skin check daily and current dressing. Contact [facility] providers if worsening skin condition. Of note, [...] for COVID-19 12/27/2022. Treated with remdesivir at [facility]. Anemia 01/16/2023 04/12/2023 Overview (04/12/2023): Lab Results Component Value Date WBC 9.0 04/11/2023 HGB 7.8 (L) 04/11/2023 HCT 24.9 (L) 04/11/2023 MCV 95 04/11/2023 PLT 381 04/11/2023 Assessment & Plan (04/12/2023 3:57 PM RELEASE MANAGER): CBC reordered. Denied dizziness, lightheadedness, shortness [...] 04/11/2023 Assessment & Plan (04/12/2023 4:05 PM RELEASE MANAGER): BMP ordered. Assessment & Plan (01/17/2023 [...] Overview (01/15/2023): Onychomycosis of toenails; Original Code: [id number] Original Codesystem: SNOMED CT Classification: Medical Confirmation [...] Comments Blood Pressure 107/66 06/18/2023 1:10 PM RELEASE MANAGER Pulse 78 06/18/2023 1:10 PM RELEASE MANAGER Temperature 36.6 ??C (97.8 ??F) 06/18/2023 1:10 PM CS T Respiratory Rate 16 06/18/2023 1:10 PM RELEASE MANAGER Oxygen Saturation 95% 06/18/2023 1:10 PM RELEASE MANAGER Inhaled Oxygen Concentration - - Weight 75.8 kg (167 lb) 06/18/2023 1:10 PM RELEASE MANAGER Height 175.3 cm (5' 9) 04/12/2023 3:21 PM RELEASE MANAGER Body Mass Index 24.66 04/12/2023 3:21 PM RELEASE MANAGER Plan of Treatment Health Maintenance Due Date [...] Advance Directives For more information, please contact: [phone] * DNR/DNI (Latest Code Status on File) Date Activated Date Inactivated Comments 05/24/2023 6:14 PM * DNR/DNI Date Activated Date Inactivated Comments 04/12/2023 4:11 PM 04/16/2023 7:15 AM Care Teams Human Resource Advisor Relationship Specialty Start Date End Date Elsewhere, Pcp PCP - General Internal Medicine 08/28/23
--- OUTSIDE RECORDS SUMMARY | 2023-12-19 09:08 | XMS_ITS | Clinical Summary ---
Author Organization [facility] Address [place], [place] [address] Care Team Providers Care Habilitation Training Specialist Name Role Phone VotelMelquiades MD Primary Care Provider + Nurses, Advanced Heart Failure Unavailable + Shade Manuel MD Unavailable [phone] Allergies No known active allergies Medications Medication Sig Dispensed Refills Start Date End Date Status blood-glucose meterIndications: Type 2 diabetes mellitus with complication (HC) Ascensia Glucometer, Dispense meter, test strips, lancets covered by pt ins. Test 3 times daily 1 Device 07/09/2020 Active Insulin [place], Disposable, (Novofine 32) 32 gauge x 1/4Indications:2 [...] used to read blood sugars, follow supply officer directions. 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 11/25/2019 HTN (hypertension) 10/28/2015 Hyperlipidemia LDL goal <70 10/28/2015 Adenomatous colon polyp 04/13/2015 Overview: Colonoscopy 04/2015 polyps repeat in 5 years Colonoscopy 03/2020 polyps, repeat in 5 years Background diabetic retinopathy(362.01) 07/10/19 08 Unspecified hearing loss 07/10/2007 Coronary atherosclerosis of unspecified type of vessel, chicken ranch or graft Overview: 4 vessel CABG 2001 Lexiscan only for cardiac evaluation - no treadmill Other ill-defined and unknow n causes of morbidity and mortality Impotence of organic origin Resolved Problems Problem Noted Date Diagnosed Date Resolved Date Type 2 diabetes mellitus with complication 11/16/2017 12/22/2022 Heart disease, unspecified 0 07/10/2007 Encounters Date Type Department Care Team Description 12/17/2023 12:58 PM CDT - 12/17/2023 11:59 PM CDT Hospital Encounter [facility] ? [facility] [address] [place] [address] Votel, MD Deloris Cleary Kayla, PT 12/17/2023 Travel 12/17/2023 Telephone [facility] [address] [place] [address] GunnarteMelquiades lewis MD Verbal Orders 12/11/2023 Orders Only [facility] Scanner 1 scan: (1-Ord) [facility], 12/11/2023 12/11/2023 Telephone [facility] [address] [place] [address] Melquiades Man MD 12/10/2023 1:45 PM CDT - 12/10/2023 11:59 PM CDT Hospital Encounter [facility] ? [facility] [address] [place] [address] GunnarteMelquiades lewis MD Manuell, Kayla, PT 12/10/2023 Travel 12/06/2023 12:55 PM CDT - 12/06/2023 11:59 PM CDT Hospital Encounter [facility] ? [facility] [address] [place] [address] Votedebbie, MD Deloris Cleary Kayla, PT 12/06/2023 Travel 12/05/2023 Orders Only [facility] Scanner 1 scan: (1-Ord) R[facility], 12/05/2023 12/05/2023 Telephone [facility] [address] [place] [address] Melquiades Man MD 12/04/2023 Telephone [facility] [address] [place] [address] Melquiades Man MD insulin clarification orders 11/26/2023 12:57 PM CDT - 11/26/2023 11:59 PM CDT Hospital Encounter [facility] [address] [place] [address] GunnarteMelquiades lewis MD Oswald, Rebecca L, PT 11/26/2023 Travel 11/22/2023 1:26 PM CDT - 11/22/2023 11:59 PM CDT Hospital Encounter [facility] [address] [place] [address] Votel, MD Deloris Cleary Kayla, PT 11/22/2023 Travel 11/22/2023 Refill [facility] [address] [place] [address] Votel, Melquiades Gray MD Refill Request (Needs alternative sent in for ~ Insulin Aspart Flexpen Inj 3ml ) 11/20/2023 1:38 PM CDT - 11/20/2023 11:59 PM CDT Hospital Encounter [facility] [address], [place] [address] Votel, MD Edgar Cleary Rebecca L, PT 11/20/2023 Travel 11/19/2023 Telephone [facility] [address] [place] [address] Votel, Melquiades Grya MD Concerns 11/14/2023 Telephone [facility] [address] [place] [address] Gunnartedebbie, Melquiades Gray MD Prior Authorization (insulin aspart, U-100, (NOVOLOG FLEXPEN) 100 unit/mL (3 mL) pen - APPROVED 11/08/23- until further notice) 11/13/2023 2:00 PM CDT Patient Outreach [address] [phone] Priyanka Hummel, pharmaceutical service representative (Review Dexcom report/insulin management) 11/12/2023 12:55 PM CDT - 11/12/2023 11:59 PM CDT Hospital Encounter [facility] [address] [place] [address] Votel, MD Edgar Cleary Rebecca L, PT 11/12/2023 Travel 11/07/2023 Telephone [facility] [address] [place] [address] Melquiades Man MD INSULIN ASPART FLEXPEN 11/06/2023 10:25 AM CDT Office Visit [facility] [address] [place] [address] VoteMelquiades lewis MD Medicare ANNUAL (subsequent) Visit (83 year old male); Medication Management (insulin) 11/06/2023 Telephone [facility] [address] [place] [address] Votel, Melquiades Gray MD Form 11/05/2023 12:49 PM CDT - 11/05/2023 11:59 PM CDT Hospital Encounter [facility] [address], [place] [address] Votel, MD Edgar Cleary Rebecca L, PT 11/05/2023 Travel 11/01/2023 1:00 PM CDT - 11/01/2023 11:59 PM CDT Hospital Encounter [facility] [address], [place] [address] Votedebbie, MD Edgar Cleary Rebecca L, PT 11/01/2023 Travel 10/31/2023 Telephone [facility] [address] [place] [address] GunnarteMelquiades lewis MD 10/30/2023 10:00 AM CDT Patient Outreach [address] [phone] Priyanka Hummel, pharmaceutical service representative (Insulin management/education ) 10/29/2023 12:25 PM CDT - 10/29/2023 11:59 PM CDT Hospital Encounter [facility] [address] [place] [address] VoteMelquiades lewis MD Oswald, Rebecca L, PT 10/29/2023 Travel 10/25/2023 1:15 PM CDT - 10/25/2023 11:59 PM CDT Hospital Encounter [facility] [address], [place] [address] VoteMelquiades lewis MD Oswald, Rebecca L, PT 10/25/2023 Travel 10/23/2023 Telephone [facility] [address] [place] [address] Melquiades Man MD 10/22/2023 1:21 PM CDT - 10/22/2023 11:59 PM CDT Hospital Encounter [facility] ? [facility] [place] [address] VoMelquiades sotomayor MD Oswald, Rebecca L, PT 10/22/2023 Travel 10/18/2023 1:45 PM CDT - 10/18/2023 11:59 PM CDT Hospital Encounter [facility] ? [facility] [address] [place] [address] Melquiades Man MD Manuell, Kayla, PT 10/18/2023 Travel 10/17/2023 Telephone [facility] [address] [place] [address] Melquiades Man MD Outside Order (regarding frequency of home health visits) 10/15/2023 12:55 PM CDT - 10/15/2023 11:59 PM CDT Hospital Encounter [facility] ? [facility] [address] [place] [address] Magda, MD Lesly Cleary Isabelle, PT 10/15/2023 Travel 10/11/2023 12:51 PM CDT - 10/11/2023 11:59 PM CDT Hospital En[facility] ? [facility] [address] [place] [address] Melquiades Man MD Tonsfeldt, Isabelle, PT 10/11/2023 Travel 10/11/2023 Telephone [facility] [address] [place] [address] Melquiades Man MD 10/09/2023 Telephone [facility] [address] [place] [address] VoteMelquiades lewis MD Form 10/05/2023 Transcribe Orders [facility] [address] [place] [address] Isatu Hanley MD 10/04/2023 1:42 PM CDT - 10/04/2023 11:59 PM CDT Hospital Encounter [facility] ? [facility] [address] [place] [address] Votedebbie, MD Lesly Cleary Isabelle, PT 10/04/2023 9:35 AM CDT Office Visit [facility] [address] [place] [address] Rachel Sauceda, DO Diabetes 10/04/2023 Telephone [facility] [address] [place] [address] Rachel Sauceda, DO Medication Management 10/04/2023 Travel 10/03/2023 Refill [facility] [address] [facility] [address] [place] [address] Shade Manuel MD Refill Request ([facility]) 10/01/2023 12:58 PM CDT - 10/01/2023 11:59 PM CDT Hospital Encounter [facility] ? [facility] [address] [place] [address] VoteMelquiades lewis MD Tonsfeldt, Isabelle, PT 10/01/2023 Travel 09/30/2023 Refill [facility] [address] [place] [address] [place] [address] Shade Manuel MD Refill Request (Dapagliflozin Propanediol) 09/27/2023 12:56 PM CDT - 09/27/2023 11:59 PM CDT Hospital Encounter [facility] ? [facility] [address] [place] [address] VoteMelquiades lewis MD Tonsfeldt, Isabelle, PT 09/27/2023 Travel 09/24/2023 12:57 PM CDT - 09/24/2023 11:59 PM CDT Hospital Encounter [facility] ? [facility] [address] [place] [address] VotelMelquiades MD Tonsfeldt, Isabelle, PT 09/24/2023 Travel 09/20/2023 11:45 AM CDT - 09/20/2023 11:59 PM T Hospital Encounter [facility] [address] [place] [address] VoteMelquiades lewis MD Tonsfeldt, Isabelle, PT 09/20/2023 Travel 09/19/2023 Telephone [facility] [address] [place] [address] VoteMelquiades lewis MD from Last 3 Months Immunizations Name Administration Dates Next Due COVID-19 vaccine (Moderna 100mcg/0.5mL) KATHERINE CAMEJO 03/09/2021 COVID-19 vaccine (Moderna 50 mcg/0.5mL) 12YO+ BIVALENT KATHERINE CAMEJO 03/29/2022 COVID-19 vaccine (Pfizer-Bio NTech 30mcg/0.3mL) PF, MDV 03/09/2021,07/24/2020,07/03/2020 COVID-19 vaccine Comirnaty (Docalytics 30mcg/0.3mL) 12YO+ [id number] Formula PF, SDV, PFS 03/05/2023 Influenza Virus, [...] CDT Respiratory Rate 24 05/03/2023 7:04 AM FIRER RETORT Oxygen Saturation 99% 11/06/2023 10: 30 AM CDT Inhaled Oxygen Concentration - - Weight 71.7 kg (158 lb) 10/04/2023 9:26 AM CDT patient reported Height 175.3 cm (5' 9.02) 07/27/2023 1 1:51 AM CDT Body Mass Index 23.32 07/27/2023 11:51 AM CDT Plan of Treatment Upcoming Encounters Date Type Department Care Team (Late st Contact Info) Description 12/20/2023 11:00 AM CDT Patient Outreach [address] [place] [phone] Priyanka Hummel, RN [address] [place] [address] 12/20/2023 1:00 PM CDT Appointment [facility] [address] [place] [address] Farheen Puentes, [place] [address] [address] 12/24/2023 1:00 PM CDT Appointment [facility] [address] [place] [address] Farheen Puentes, PT [address] [place] [address] 12/27/2023 1:00 PM CDT Appointment [facility] [address] [place] [address] Farheen Puentes, PT [address] [place] [address] 12/31/2023 1:00 PM CDT Appointment [facility] [address] [place] [address] Jasmin Hernández, PT [address] [place] [address] 01/01/2024 10:50 AM CDT Office Visit [facility] [address] [place] [address] Melquiades Man MD [address] [place] [address] 01/02/2024 1:45 PM CDT Appointment [facility] [address], [place] [address] JamesFarheen calvo, PT [address] [place] [address] 01/08/2024 1:30 PM CDT Office Visit [facility] [address] [facility] [address] [place] [address] Shade Manuel MD [address] [facility] [address] [place] [address] Health Maintenance Due Date Last Done Comments [...] Priority Date/Time Associated Diagnosis Comments SCAN-EYE EXAM 12/11/2023 12:00 AM CDT SCAN-EYE EXAM 12/05/2023 12:00 AM CDT CBC [...] Last 3 Months Results * SCAN-EYE EXAM (12/11/2023 12:00 AM CDT) Scanner OTHER * SCAN-EYE EXAM (12/05/2023 12:00 AM CDT) Scanner OTHER * (ABNORMAL) CBC WITH AUTO DIFFERENTIAL (11/06/2023 12:33 PM CDT) WHITE BLOOD COUNT 8.5 4.5 - 11.0 thou/cu mm 11/06/2023 12:44 PM CDT [facility] RED BLOOD COUNT 3.98(L) 4.30 - 5.90 mil/cu mm 11/06/2023 12:44 PM CDT [facility] HEMOGLOBIN 12.0(L) 13.5 - 17.5 g/dL 11/06/2023 12:44 PM CDT [facility] HEMATOCRIT 36.7(L) 37.0 - 53.0 % 11/06/2023 12:44 PM CDT [facility] MCV 92 80 - 100 fL 11/06/2023 12:44 PM CDT [facility] MCH 30.2 26.0 - 34.0 pg 11/06/2023 12:44 PM CDT [facility] MCHC 32.7 32.0 - 36.0 g/dL 11/06/2023 12:44 PM CDT [facility] RDW 15.9(H) 11.5 - 15.5 % 11/06/2023 12:44 PM CDT [facility] PLATELET COUNT 273 140 - 440 thou/cu mm 11/06/2023 12:44 PM CDT [facility] MPV 9.6 6.5 - 11.0 fL 11/06/2023 12:44 PM CDT [facility] % NEUT 69.0 % 11/06/2023 12:44 PM CDT [facility] % LYMPH 18.8 % 11/06/2023 12:44 PM CDT [facility] % MONO 7.6 % 11/06/2023 12:44 PM CDT [facility] % EOS 3.8 % 11/06/2023 12:44 PM CDT [facility] % BASO 0.8 % 11/06/2023 12:44 PM CDT [facility] ABSOLUTE NEUTROPHILS 5.9 1.7 - 7.0 thou/cu mm 11/06/2023 12:44 PM CDT [facility] ABSOLUTE LYMPHOCYTES 1.6 0.9 - 2.9 thou/cu mm 11/06/2023 12:44 PM CDT [facility] ABSOLUTE MONOCYTES 0.6 <0.9 thou/cu mm 11/06/2023 12:44 PM CDT [facility] ABSOLUTE EOSINOPHILS 0.3 <0.5 thou/cu mm 11/06/2023 12:44 PM CDT [facility] ABSOLUTE BASOPHILS 0.1 <0.3 thou/cu mm 11/06/2023 12:44 PM CDT [facility] Blood BLOOD SPECIMEN / Unknown Butterfly / Unknown 11/06/2023 12:33 PM CDT 11/06/2023 12:37 PM CDT Melquiades Man MD HEMATOLOGY [facility] [address] [place] [address], * LIPID PANEL W REFLEX MEASURED LDL (11/06/2023 12:33 PM CDT) CHOLESTEROL,TOTAL 156 100 - 199 mg/dL 11/07/2023 1:57 AM CDT [facility] Comment: Cholesterol, Total Reference Ranges Desirable <200 mg/dL Borderline 200-239 mg/dL High >=240 mg/dL TRIGLYCERIDES 124 <150 mg/dL 11/07/2023 1:57 AM CDT [facility] HDL CHOLESTEROL 56 >40 mg/dL 1:57 AM CDT [facility] NON-HDL CHOLESTEROL 100 <145 mg/dl 11/07/2023 1:57 AM CDT [facility] CHOL/HDL RATIO 2.79 <4.50 11/07/2023 1:57 AM CDT [facility] LDL CHOLESTEROL 75 <=130 mg/dL 11/07/2023 1:57 AM CDT [facility] VLDL CHOLESTEROL 25 <=30 mg/dL 11/07/2023 1:57 AM CDT [facility] PROVIDER ORDERED STATUS RANDOM 11/07/2023 1:57 AM CDT [facility] Blood BLOOD SPECIMEN / Unknown Butterfly / Unknown 11/06/2023 12:33 PM CDT 11/06/2023 12:37 PM CDT Melquiades Man MD [facility] [address] [place] [address], * TSH (11/06/2023 12:33 PM CDT) TSH 2.24 0.27 - 4.20 uIU/mL 11/07/2023 1:57 AM CDT [facility] Blood BLOOD SPECIMEN / Unknown Butterfly / Unknown 11/06/2023 12:33 PM CDT 11/06/2023 12:37 PM CDT Narrative [facility] - 11/07/2023 1:57 AM CDT In Adults, TSH values between 5.00 and 10.00 uIU/ml do not necessarily indicate the presence of Hypothyroidism. Correlation with clinical findings such as presence of goiter and/or Thyroperoxidase (TPO) Antibody may be helpful. For more information please refer to RONNIE 2004; 291: 228-238. Melquiades Man MD CHEMISTRY Performing Organization Address City/[facility]/ZIP Co de Phone Number [facility] [address] [place] [address], * ALT (SGPT) (11/06/2023 12:33 PM CDT) ALT (SGPT) 21 10 - 50 IU/L 11/07/2023 1:57 AM CDT [facility] Blood BLOOD SPECIMEN / Unknown Butterfly / Unknown 11/06/2023 12:33 PM CDT 11/06/2023 12:37 PM CDT Melquiades Man MD CHEMISTRY Performing Organization Address City/[facility]/ZIP Co de Phone Number [facility] [address] [place] [address], * (ABNORMAL) BASIC METABOLIC PANEL (11/06/2023 12:33 PM CDT) SODIUM 139 136 - 145 mmol/L 11/07/2023 1:57 AM CDT [facility] POTASSIUM 4.8 3.5 - 5.1 mmol/L 11/07/2023 1:57 AM CDT [facility] CHLORIDE 102 98 - 107 mmol/L 11/07/2023 1:57 AM CDT [facility] CO2,TOTAL 23 22 - 29 mmol/L 11/07/2023 1:57 AM CDT [facility] ANION GAP 14 5 - 18 11/07/2023 1:57 AM CDT [facility] GLUCOSE 137(H) 70 - 99 mg/dL 11/07/2023 1:57 AM CDT [facility] CALCIUM 10.0 8.8 - 10.2 mg/dL 11/07/2023 1:57 AM CDT [facility] BUN 42(H) 8 - 23 mg/dL 11/07/2023 1:57 AM CDT [facility] CREATININE 1.65(H) 0.70 - 1.20 mg/dL 11/07/2023 1:57 AM T [facility] BUN/CREAT RATIO 25(H) 10 - 20 1:57 AM CDT [facility] eGFR 41(L) >90 mL/min/1.7 3m2 11/07/2023 1:57 AM T [facility] Comment:As of 2021, eG FR [...] CDT Melquiades Man MD [facility] [address] [place] [address], * (ABNORMAL) HEMOGLOBIN A1C MONITORING (POCT) (10/04/2023 9:44 AM CDT) HEMOGLOBIN A1C MONITORING (POCT) 11.6(H) <=6.4 % 10/04/2023 9:53 AM CDT [facility] Blood BLOOD SPECIMEN / Unknown Venipuncture / Unknown 10/04/2023 9:44 AM CDT 10/04/2023 9:44 AM CDT Narrative [facility] - 10/04/2023 9:53 AM CDT [...] Anemias, Splenectomy ? Rachel Sauceda DO CHEMISTRY [facility] [address] [place] [address], from Last 3 Months Additional Health Concerns [...] 12 months since positive culture): resides in acute/prison care, receiving hemodialysis, has chronic open wounds/skin damage, has long-term percutaneous indwelling medical devices Exclusions for nares collection (if <12 months since positive culture) include all of the previous exclusions plus patients on antibiotics 7 days prior to collection 03/08/2023 05/31/2023 MDRO-GNB 04/26/2023 04/26/2023 Advance Directives Documents on File Type Date Recorded Patient Cupola Melter Helper Expl anation POLST 03/26/2023 * Full Code [...] Code Status Discussion: Reviewed Preferences Care Teams Habilitation Training Specialist Relationship Specialty Start Date End Date Votel, Melquiades Gray MD [address] [facility] [place] [address] PCP - General 11/20/05 Nurses, Advanced Heart Failure [address] [place] [address] Advanced Heart Failure/Transplant Card 01/24/23 Shade Manuel MD [address] [facility] [address] [facility] [place] [address] Cardiovascular Disease 01/24/23
--- OUTSIDE RECORDS SUMMARY | 2023-12-19 09:08 | XMS_ITS | Data Portability ---
Author Organization [facility] Dominick gy, [facility] Address [address] [place] [address] Care Team Providers Care Cdl Bulk Driver Name Role Phone VOTELPARVEZ Primary Care Provider [...] Address Organization Details Last Updated DateTime 11/28/2023 15327.78 g 23 kg/m2 177.8 cm Bennett lainezo [facility] 11/28/2023 14:16:54 Social History Question Answer Notes LastModified by Organizat ion Details LastModified Time Tobacco Sm[facility] Status [facility] 11/28/2023 14:22:10 What Is Your Level [...] adjuvanted, trivalent, PF 01/10/2018 completed Bennett winn, [facility] 11/28/2023 14:17:02 Influenza, adjuvanted, trivalent, PF 02/12/2020 completed Bennett Mg-Odilia winn, [facility] 11/28/2023 14:17:02 Influenza, high-dose, quadrivalent, PF 03/09/2021 completed Bennett Mg-Odilia winn, [facility] 11/28/2023 14:17:02 Influenza, high-dose, quadrivalent, PF 04/05/2022 completed Bennett winn, [facility] 11/28/2023 14:17:02 Influenza, adjuvanted, quadrivalent, PF 03/05/2023 completed Bennett Mg-Andriaer o null, [facility] 11/28/2023 14:17:02 COVID-19, mRNA, LNP-S, PF, 100 mcg/0.5mL dose or 50 mcg/0.25mL dose 03/09/2021 completed Bennett Duncanal-Valer o null, [facility] 11/28/2023 14:17:02 COVID-19, mRNA, LNP-S, PF, 30 mcg/0.3 mL dose 07/03/2020 completed Bennett Mg-Valer o null, [facility] 11/28/2023 14:17:02 COVID-19, mRNA, LNP-S, PF, 30 mcg/0.3 mL dose 07/24/2020 completed Bennett Mg-Andriaer o null, [facility] 11/28/2023 14:17:02 COVID-19, mRNA, LNP-S, bivalent, PF, 50 mcg/0.5 mL or 25mcg/0.25 mL dose 03/29/2022 completed Bennett Mg-Valer o null, [facility] 11/28/2023 14:17:02 RSV, bivalent, protein subunit RSVpreF, diluent reconstituted, 0.5 mL, PF 03/05/2023 completed Bennett Mg-Odilia o null, [facility] 11/28/2023 14:17:02 COVID-19, mRNA, LNP-S, PF, estrella-sucrose, 30 mcg/0.3 mL 03/05/2023 completed Bennett Mg-Valer o null, [facility] 11/28/2023 14:17:02 pneumococcal polysaccharide PPV23 02/09/2011 completed Bennett Duncanal-Valer o null, [facility] 11/28/2023 14:17:02 pneumococcal polysaccharide PPV23 03/06/2006 completed Bennett Mg-Andriaer o null, [facility] 11/28/2023 14:17:02 influenza, unspecified formulation 03/15/2017 completed Milraymoni Mg-Valer o null, [facility] 11/28/2023 14:17:02 Pneumococcal conjugate PCV 13 01/21/2015 completed [facility] Mg-Valer o null, [facility] 11/28/2023 14:17:02 Influenza, high-dose, trivalent, PF 01/21/2015 completed [facility] Mg-Valer o null, [facility] 11/28/2023 14:17:02 Influenza, high-dose, trivalent, PF 03/07/2019 completed [facility] Gm-Valer o null, [facility] 11/28/2023 14:17:02 Influenza, split virus, trivalent, preservative 01/30/2013 [facility], [facility] 11/28/2023 14:17:02 Influenza, split virus, trivalent, preservative 02/26/2003 completed [facility] Mg-Valer o null, [facility] 11/28/2023 14:17:02 Influenza, split virus, trivalent, preservative 03/01/2004 completed [facility] Mg-Valer o null, [facility] 11/28/2023 14:17:02 Influenza, split virus, trivalent, preservative 03/05/2007 completed [facility] Mg-Valer o null, [facility] 11/28/2023 14:17:02 Influenza, split virus, trivalent, preservative 03/06/2006 [facility], [facility] 11/28/2023 14:17:02 Influenza, split virus, trivalent, preservative 03/09/2005 completed Miletzi Mg-Valer o null, [facility] 11/28/2023 14:17:03 Influenza, split virus, trivalent, preservative 03/09/2008 [facility], [facility] 11/28/2023 14:17:03 Influenza, split virus, trivalent, preservative 03/13/2012 [facility] 11/28/2023 14:17:03 Influenza, split virus, trivalent, preservative 04/28/2010 completed Jeff Mg-Valer o null, [facility] 11/28/2023 14:17:03 Influenza, split virus, trivalent, PF 02/09/2011 completed [facility] Mg[facility]Val[facility] null, [facility] 11/28/2023 14:17:03 Influenza, split virus, trivalent, PF 04/05/2009 completed [facility] Mg-Valer o null, [facility] 11/28/2023 14:17:03 Td (adult), 5 Lf tetanus toxoid, preservative free, adsorbed 03/06/2006 [facility], [facility] 11/28/2023 14:17:03 Past Encounters Encounter ID Performer Location Encounter Start Date Encounter Closed Date Diagnosis/Indication Diagnosis SNOMED-CT Code [id number] Roberto Carballo MD [facility] [address] [place] [address] 11/28/2023 13:46:09 12/04/2023 16:43:22 Phimosis [id number] Health Concerns Section Related Observation LastModified by Organization Detai ls LastModified Time None Recorded Concern Status LastModified by Organization Details LastModified Time None Recorded Advance Directives Directive None Recorded Payers Encounter Date Sequence Insurance Name Policy Number Policy Cherry Covered Member ID Cherry Member ID Guarantor Name 11/28/2023 1 [place] - MEDICARE COST [id number] Rosalina Bowers [id number] Rosalina Bowers Notes Date Note Type Note [...] - 1.40 (04/28/10) Roberto Carballo MD [address] [place] [address],[place] [address], [place], [address], [facility] 11/30/2023 11:21:51
--- OUTSIDE RECORDS SUMMARY | 2023-12-19 09:08 | XMS_ITS | Continuity of Care Document ---
Author Organization [facility] Mario gy, [facility] Address [address] [place] [address] Care Team Providers Care Marble Mason Name Role Phone HARMANTEPARVEZ To Primary Care Provider [phone] Assessment No assessment recorded. Plan of Treatment [...] Address Organization Details Last Updated DateTime 11/28/2023 86599.78 g 23 kg/m2 177.8 cm Shlomomichael lainezo [facility] 11/28/2023 14:16:54 Social History Question Answer Notes LastModified by Organizat ion Details LastModified Time Tobacco Smoking Status Former Smoker [facility] winn [facility] 11/28/2023 14:22:10 What Is Your Level Of [...] cancer Notes:skin cancer-dad Medical History Condition Response High Blood Pressure Y Kidney Stones N High Cholesterol Y Diabetes Y Immunizations Vaccine Type Date Status Provider Name and Address Organization Details Recorded Time Influenza, adjuvanted, trivalent, PF 01/10/2018 completed Bennett winn, [facility] 11/28/2023 14:17:02 Influenza, adjuvanted, trivalent, PF 02/12/2020 completed Bennett winn, [facility] 11/28/2023 14:17:02 Influenza, high-dose, quadrivalent, PF 03/09/2021 completed Bennett winn, [facility] 11/28/2023 14:17:02 Influenza, high-dose, quadrivalent, PF 04/05/2022 completed Bennett winn, [facility] 11/28/2023 14:17:02 Influenza, adjuvanted, quadrivalent, PF 03/05/2023 completed Bennett Kimrigal-Valer o null, [facility] 11/28/2023 14:17:02 COVID-19, mRNA, LNP-S, PF, 100 mcg/0.5mL dose or 50 mcg/0.25mL dose 03/09/2021 completed Bennett Kimrigal-Valer o null, [facility] 11/28/2023 14:17:02 COVID-19, mRNA, LNP-S, PF, 30 mcg/0.3 mL dose 07/03/2020 completed Bennett Kimrigal-Valer o null, [facility] 11/28/2023 14:17:02 COVID-19, mRNA, LNP-S, PF, 30 mcg/0.3 mL dose 07/24/2020 completed Bennett Kimrigal-Valer o null, [facility] 11/28/2023 14:17:02 COVID-19, mRNA, LNP-S, bivalent, PF, 50 mcg/0.5 mL or 25mcg/0.25 mL dose 03/29/2022 completed Bennett Kimrigal-Valer o null, [facility] 11/28/2023 14:17:02 RSV, bivalent, protein subunit RSVpreF, diluent reconstituted, 0.5 mL, PF 03/05/2023 completed Bennett Kimrigal-Valer o null, [facility] 11/28/2023 14:17:02 COVID-19, mRNA, LNP-S, PF, estrella-sucrose, 30 mcg/0.3 mL 03/05/2023 completed Bennett Kimrigal-Valer o null, [facility] 11/28/2023 14:17:02 pneumococcal polysaccharide PPV23 02/09/2011 completed Bennett Kimrigal-Valer o null, [facility] 11/28/2023 14:17:02 pneumococcal polysaccharide PPV23 03/06/2006 completed Bennett Kimrigal-Valer o null, [facility] 11/28/2023 14:17:02 influenza, unspecified formulation 03/15/2017 completed Miletzi Mg-Valer o null, [facility] 11/28/2023 14:17:02 Pneumococcal conjugate PCV 13 01/21/2015 completed Milraymoni Mg-Valer o null, [facility] 11/28/2023 14:17:02 Influenza, high-dose, trivalent, PF 01/21/2015 completed Miletzi Mg-Valer o null, [facility] 11/28/2023 14:17:02 Influenza, high-dose, trivalent, PF 03/07/2019 completed Miletzi Mg-Valer o null, [facility] 11/28/2023 14:17:02 Influenza, split virus, trivalent, preservative 01/30/2013 completed Miletzi Mg-Valer o null, [facility] 11/28/2023 14:17:02 Influenza, split virus, trivalent, preservative 02/26/2003 completed Miletzi Mg-Valer o null, [facility] 11/28/2023 14:17:02 Influenza, split virus, trivalent, preservative 03/01/2004 [facility], [facility] 11/28/2023 14:17:02 Influenza, split virus, trivalent, preservative 03/05/2007 completed Miletzi Mg-Valer o null, [facility] 11/28/2023 14:17:02 Influenza, split virus, trivalent, preservative 03/06/2006 completed Miletzi Mg-Valer o null, [facility] 11/28/2023 14:17:02 Influenza, split virus, trivalent, preservative 03/09/2005 completed Miletzi Mg-Valer o null, [facility] 11/28/2023 14:17:03 Influenza, split virus, trivalent, preservative 03/09/2008 completed Miletzi Mg-Valer o null, [facility] 11/28/2023 14:17:03 Influenza, split virus, trivalent, preservative 03/13/2012 completed Miletzi Mg-Valer o null, [facility] 11/28/2023 14:17:03 Influenza, split virus, trivalent, preservative 04/28/2010 completed Bennett Kimrigal-Valer o null, [facility] 11/28/2023 14:17:03 Influenza, split virus, trivalent, PF 02/09/2011 completed Jeffninfa Duncanal-Andriaer o null, [facility] 11/28/2023 14:17:03 Influenza, split virus, trivalent, PF 04/05/2009 completed Bennett Kimrigal-Andriaer o null, [facility] 11/28/2023 14:17:03 Td (adult), 5 Lf tetanus toxoid, preservative free, adsorbed 03/06/2006 completed Bennett Kimrigal-Andriaer o null, [facility] 11/28/2023 14:17:03 Past Encounters Encounter ID Performer Location Encounter Start Date Encounter Closed Date Diagnosis/Indication Diagnosis SNOMED-CT Code [id number] Roberto Carballo MD [facility] [address] [place] [id number] 11/28/2023 13:46:09 12/04/2023 16:43:22 Phimosis [id number] Health Concerns Section Related Observation LastModified by Organization Detai ls LastModified Time None Recorded Concern Status LastModified by Organization Details LastModified Time None Recorded Payers Encounter Date Sequence Insurance Name Policy Number Policy Cherry Covered Member ID Cherry Member ID Guarantor Name 11/28/2023 1 [place] COST [id number] Rosalina Bowers [id number] Rosalina Bowers Notes Date Note Type Note [...] (03/05/07) - 1.40 (04/28/10) Roberto Carballo MD [address] [place] [address], [place], [address], [facility] 11/30/2023 11:21:51
--- OUTSIDE RECORDS SUMMARY | 2023-12-19 09:09 | XMS_ITS | Referral Summary ---
Author Organization [facility] Address [address] [place] [address] Care Team Providers Care Diamond Picker Name Role Phone Elsewhere, Pcp Primary Care Provider Unavailabl e Source Comments Patient records contain information from all sites at [facility]. For routine questions regarding patient records, call [phone] during business hours, M-F 8:00 AM - 5:00 PM Central Time. Record requests for emergency care only can be directed to [phone] at any time.[facility] Allergies No known active allergies Medications [...] guaze. Assessment & Plan (06/15/2023 4:18 PM SINTER MACHINE OPERATOR): The wound bed is clean. A thin layer of silver stat will be applied with a gauze. Change daily. 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 Left Heel: Area continues to improve. Wound measures [id number]. Edges well defined, attached and 100% re-epithelialized tissues. Granulation tissue is observed along the lining of the edges under the bed of slough/eschar. Eschar is soft but not mushy. Wound bed is still approx 95% or more of slough/eschar. Scant drainage with dressing change. Resident tolerated cares without any concerns. New wound orders as follows: Assessment & Plan (06/15/2023 4:10 PM SINTER MACHINE OPERATOR): 1: Gently cleanse area with NS. Pat dry. 2. Skin prep to gonsalo-wound. 3. Santyl to wound bed only. 4. Place gauze over wound. 5. cover with island dressing. 6. Change dressing daily. He may be discharged to home with home nursing for wound care . Assessment & Plan (06/01/2023 2:33 PM SINTER MACHINE OPERATOR): Continue wound care and have REMOTE OPERATIONS PRODUCER evaluate in one week. Dementia 05/20/2023 Overview (05/24/2023): No documented dementia or behaviors Assessment & Plan (05/24/2023 5:57 PM SINTER MACHINE OPERATOR): He has low hearing which could contribute to him not understanding Assessment & Plan (05/20/2023 4:20 PM SINTER MACHINE OPERATOR): Although initial BIMS testing scored 14, he has had episodes of what seems to be sundowning with strong suspicion of underlying dementia. Will have OT further evaluate. Hyperglycemia 04/22/2023 Overview (04/22/2023): Prior to recent hospitalization, insulin glargine dose was 25 units daily and short-acting insulin 10 units with meals. Assessment & Plan (05/24/2023 6:00 PM SINTER MACHINE OPERATOR): A1C 7.2 He will follow up with his PCP in [place] Assessment & Plan (04/22/2023 8:28 PM SINTER MACHINE OPERATOR): His appetite has been poor and he has been getting much less insulin than he is used to. His sugars however have been high. Will gradually increase mealtime insulin to 7 units. Previously on 10 units with meals. Finishing Supervisor (Current) Anticoagulant Treatment 08/2022 Overview (04/16/2023): On [...] side. 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 He will need a standard wheelchair Mr. Woods was admitted to [facility] April 10 following BK right lower extremity. [...] site Assessment & Plan (04/16/2023 7:55 PM SINTER MACHINE OPERATOR): Pain is well controlled. Stump care consists of washing with normal saline and dry. Cover with dry gauze or ABD b.i.d. he is wearing the knee brace to maintain extension in his working with therapies. He has follow-up with vascular surgery 05/11/2023. Assessment & Plan (04/12/2023 4:53 PM SINTER MACHINE OPERATOR): Patient and mentioned he is doing well [...] 75mcg. Assessment & Plan (06/05/2023 9:25 PM SINTER MACHINE OPERATOR): TSH value improved compared to prior value of 16.0 a month ago. Resident /nursing denied symptoms of hypothyroidism. Last T4 was 0.92 in April 2023. president educational institution confirmed levothyroxine is given every morning (6am) without other medications. Therefore, we will increase levothyroxine 50mcg to 75mcg and rechecked TSH in 6 weeks. Nursing instructed to continue monitoring for symptoms of hypothyroidism and contact [place] provider if any concerns. Assessment & Plan (05/24/2023 5:24 PM SINTER MACHINE OPERATOR): Increase levothyroxine to 50 mcg daily. prison may give two 25 mcg tablets to equal 50 mcg. He will be discharging in a week Assessment & Plan (04/23/2023 12:56 PM SINTER MACHINE OPERATOR): TSH will be done. He is currently on levothyroxine 25 mcg daily. Dose will need to be adjusted if TSH is elevated. Assessment & Plan (04/16/2023 7:56 PM SINTER MACHINE OPERATOR): Recheck TSH mid April. Assessment & Plan (04/12/2023 4:45 PM SINTER MACHINE OPERATOR): Continue levothyroxine. TSH reordered. 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 Assessment & Plan (04/12/2023 4:08 PM SINTER MACHINE OPERATOR): Plans to discharge back home. Patient remains [...] status Assessment & Plan (05/24/2023 5:15 PM SINTER MACHINE OPERATOR): He will be full code Assessment & Plan (01/17/2023 2:30 PM CDT): Continue full code status Hyperlipidemia 01/16/2023 Overview (05/24/2023): On atorvastatin Assessment & Plan (05/24/2023 6:01 PM SINTER MACHINE OPERATOR): Stay on statin Assessment & Plan (01/17/2023 2:35 PM CDT): Continue atorvastatin Assessment & Plan (01/17/2023 2:01 PM CDT): Continue atorvastatin Weakness General 01/16/2023 Overview (01/16/2023): This is multifactorial and related to recent hospitalizations and multiple comorbidities. Assessment & Plan (06/05/2023 9:26 PM SINTER MACHINE OPERATOR): Denied weakness. We will continue therapy. Assessment & Plan (05/24/2023 6:05 PM SINTER MACHINE OPERATOR): He is getting stronger with therapy. He will continue therapy when he gets his prosthesis. He will have a wheelchair upon discharge. Assessment & Plan (04/12/2023 4:09 PM SINTER MACHINE OPERATOR): Verbalized improvement with weakness. We will continue [...] 04/11/2023 Assessment & Plan (04/12/2023 3:58 PM SINTER MACHINE OPERATOR): Stable. Denied dizziness, lightheadedness, shortness of breaths and palpitation. Assessment & Plan (01/17/2023 2:30 PM CDT): Stable. Assessment & Plan (01/17/2023 1:58 PM CDT): Stable. Assessment & Plan (01/16/2023 7:16 PM CDT): Most recent hemoglobin 9.3. Atherosclerotic Heart Diseas e Of [place] Coronary Artery Without Angina Pectoris 01/15/2023 Overview [...] RAP). Assessment & Plan (05/24/2023 5:52 PM SINTER MACHINE OPERATOR): Stable on current meds Assessment & Plan (04/23/2023 1:02 PM SINTER MACHINE OPERATOR): BNAP 31,578 on 04/16/23. Dr. Gerardo increased furosemide to 40 mg bid and added spironolactone 25 mg daily. Weight today in [place] was 174 lb. No edema noted in left leg. No dyspnea. On O2 per N/C continuous. No change in medications until renal function results are available. Assessment & Plan (04/16/2023 7:41 PM SINTER MACHINE OPERATOR): He had multiple medication changes during hospitalization including discontinuation of spironolactone and Entresto. Farxiga is being held. Metoprolol and furosemide doses were decreased. Assessment & Plan (04/12/2023 4:01 PM SINTER MACHINE OPERATOR): No admission weight yet. 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 Continue care plan. Assessment & Plan (01/17/2023 2:31 PM CDT): HR well controlled ranging from 64-99. Continue care plan. Assessment & Plan (01/16/2023 8:24 AM CDT): HR well controlled. Continue care plan. Finishing Supervisor Use Of Insulin Active 12/09/2022 Overview (01/16/2023): On insulin glargine and aspart started during hospitalization December 2022. Assessment & Plan (05/24/2023 5:20 PM SINTER MACHINE OPERATOR): Nurse reports he is nonadherent to his [...] daily Assessment & Plan (06/07/2023 2:51 PM SINTER MACHINE OPERATOR): Blood sugars have been elevated due to [...] hypoglycemia. Assessment & Plan (05/29/2023 7:56 PM SINTER MACHINE OPERATOR): Patient's blood sugar continued to be on [...] possible. Assessment & Plan (05/24/2023 5:59 PM SINTER MACHINE OPERATOR): Insulin dependent not always compliant with diet. Glargine will be increased to 17 units. Assessment & Plan (05/22/2023 6:43 PM SINTER MACHINE OPERATOR): Blood sugar continued to be elevated mostly [...] 3 times daily with meals. Follow-up with REMOTE OPERATIONS PRODUCER next week. Dietitian/dietary to visit with patient and to discuss food options. Assessment & Plan (05/20/2023 4:22 PM SINTER MACHINE OPERATOR): Recent blood sugars in the SNF setting have been elevated. Short and long-acting insulin doses have changed significantly since admission. Will have him follow- up with REMOTE OPERATIONS PRODUCER for further review of blood sugars. Assessment & Plan (04/23/2023 1:04 PM SINTER MACHINE OPERATOR): Blood sugars not controlled. Increase Lantus to 14 units from 12. Assessment & Plan (04/16/2023 7:42 PM SINTER MACHINE OPERATOR): Was previously on glipizide and higher doses of mealtime aspart. Blood sugars are being checked 4 times daily. May need insulin readjusted. Assessment & Plan (04/12/2023 4:04 PM SINTER MACHINE OPERATOR): Blood sugars have been I< 200s. Currently [...] to 25 units and follow-up. Atherosclerosis Of [place] Ar teries Of Other Extremities With Ulceration [...] 120-130 Assessment & Plan (04/12/2023 4:07 PM SINTER MACHINE OPERATOR): Images from the original note were not [...] redness. Assessment & Plan (05/24/2023 5:14 PM SINTER MACHINE OPERATOR): Stable Assessment & Plan (04/29/2023 7:54 PM SINTER MACHINE OPERATOR): Today, nursing had reported left lower calf and ankle redness with open wound. On assessing the left calf/ankle, there was an open skin area (abrasion) that has no redness, swelling nor drainage. The skin was not warmth to touch and patient denied pain at 0/10 (nurse manager sales was in attendance during visit). Nursing stated does look better than what it was this morning. They have been cleaning the wound area in apply Mepilex. Since there was no symptoms or evidence of infection on the left lower calf and ankle redness with open wound, nursing was instructed to continue skin check daily and current dressing. Contact [facility] providers if worsening skin condition. Of [...] for COVID-19 12/27/2022. Treated with remdesivir at [facility]. Anemia 01/16/2023 04/12/2023 Overview (04/12/2023): Lab Results Component Value Date WBC 9.0 04/11/2023 HGB 7.8 (L) 04/11/2023 HCT 24.9 (L) 04/11/2023 MCV 95 04/11/2023 PLT 381 04/11/2023 Assessment & Plan (04/12/2023 3:57 PM SINTER MACHINE OPERATOR): CBC reordered. Denied dizziness, lightheadedness, shortness of [...] 04/11/2023 Assessment & Plan (04/12/2023 4:05 PM SINTER MACHINE OPERATOR): BMP ordered. Assessment & Plan (01/17/2023 2:35 [...] Overview (01/15/2023): Onychomycosis of toenails; Original Code: [id number] Original Codesystem: SNOMED CT Classification: Medical Confirmation [...] Comments Blood Pressure 107/66 06/18/2023 1:10 PM SINTER MACHINE OPERATOR Pulse 78 06/18/2023 1:10 PM SINTER MACHINE OPERATOR Temperature 36.6 ??C (97.8 ??F) 06/18/2023 1:10 PM CS T Respiratory Rate 16 06/18/2023 1:10 PM SINTER MACHINE OPERATOR Oxygen Saturation 95% 06/18/2023 1:10 PM SINTER MACHINE OPERATOR Inhaled Oxygen Concentration - - Weight 75.8 kg (167 lb) 06/18/2023 1:10 PM SINTER MACHINE OPERATOR Height 175.3 cm (5' 9) 04/12/2023 3:21 PM SINTER MACHINE OPERATOR Body Mass Index 24.66 04/12/2023 3:21 PM SINTER MACHINE OPERATOR Plan of Treatment Not on file Advance Directives For more information, please contact: [phone] * DNR/DNI (Latest Code Status on File) Date Activated Date Inactivated Comments 05/24/2023 6:14 PM * DNR/DNI Date Activated Date Inactivated Comments 04/12/2023 4:11 PM 04/16/2023 7:15 AM Care Teams Diamond Picker Relationship Specialty Start Date End Date Elsewhere, Pcp PCP - General Internal Medicine 08/28/23
--- OUTSIDE RECORDS SUMMARY | 2023-12-19 09:09 | XMS_ITS ---
Author Organization [facility] Address [address] [place] [address] Care Team Providers Care Power And Recovery Superintendent Name Role Phone Unavailable Unavailable Unavailable Surgery Details Not on file Complications Check Surgery Details section. Procedure Estimated Blood Loss Check Surgery Details section. Procedure Findings Check Surgery Details section. Procedure Specimens Taken Check Surgery Details section.
== END 2023-12-19 09:06 | disposition home or self-care (01) ==
LOC: WOUND 09:05
PROVIDERS: PCP Family Medicine; Visit Provider Surgery
DX: E11.621 Type 2 diabetes mellitus with foot ulcer (principal); I70.25 Atherosclerosis of native arteries of other extremities with ulceration; L97.428 Non-pressure chronic ulcer of left heel and midfoot with other specified severity; Z79.4 Long term (current) use of insulin; Z79.84 Long term (current) use of oral hypoglycemic drugs
CPT/HCPCS: G0463

== ENCOUNTER 2024-01-02 09:08 | Outpatient (CLI) | payer MEDICARE, BC, SELFPAY ==
--- OUTSIDE RECORDS SUMMARY | 2024-01-02 09:10 | XMS_ITS | Continuity of Care Document ---
Author Name [facility] Organization [facility] Care Team Providers Care Gliding Pilot Instructor Name Role Phone [facility] Unavailable Unavailable Problems Combined list of problems from Department of Defense and Veterans Affairs facilities. It does not include entries that were removed or entered in error. Problem Status Onset Date Problem Type Date of Resolution Comments Source Exposure to potentially hazardous substance ([facility] [id number]) Active 07/20/19 24 Condition Jul 20, 2023 Entered By: MECHELLE DEMPSEY [facility]: [facility] Documentation Initiative [facility] CAD - Coronary Artery Disease ([facility] [id number]) Active Condition [place] ([facility]) CHF - Congestive Heart Failure ([facility] [id number]) Active Condition [place] ([facility]) Diabetes Mellitus Type 2 ([facility] [id number]) Active Condition [place] ([facility]) History of amputation of right leg through tibia and fibula [facility] HTN - Hypertension ([facility] [id number]) Active Condition [place] ([facility]) Hyperlipidemia ([facility] [id number]) Active Condition [facility]) Hypothyroidism ([facility] [id number]) Active Condition [place] ([facility]) Long-term current use of insulin Active Condition [place] ([facility]) Peripheral neuropathy due to type 2 diabetes mellitus Active Condition [place] ([facility]) Diagnosis: ICD-10-CM Z74.09 Other reduced mobility Active Diagnosis [place] ([facility]) Diagnosis: ICD-10-CM E11.9 Type 2 diabetes mellitus without complications Active Diagnosis [place] ([facility]) Diagnosis: ICD-10-CM H90.3 Sensorineural hearing loss, bilateral Active Diagnosis [facility] Diagnosis: ICD-10-CM I50.9 Heart failure, unspecified Active Diagnosis [place] ([facility]) Diagnosis: ICD-10-CM R26.89 Other abnormalities of [...] Feb 15, 2023 40 Feb 16, 2024 [id number] Feb 20, 2023 KATHY MURPHY [facility] L[facility] ACTIVE 02/16/2024 [id number] KATHY MURPHY 2022 40 [facility] OLIS [facility] CLOPIDOGREL BISULFATE 75MG TAB CLOPIDOG REL [...] Nov 08, 2023 10 Nov 08, 2024 [id number] Nov 09, 2023 JERMAINE CHESTER [facility] ([facility]) SUBCUT ANEOUS ACTIVE 11/08/2024 [id number] RYAN CHESTER 2023 10 [facility] ([facility]) [...] Site Reaction Lot Number CVX Code Drug Corral Boss Status Comments Source COVID-19 (PFIZER), MRNA, LNP-S, PF, NAVYA-SUCROSE, 30 MCG/0.3 ML (AGES 12+ YEARS) 2022 309 complet ed [facility] INFLUENZA, ADJUVANTED, QUADRIVALENT, PF 2022 205 complet ed [facility] RSV, BIVALENT, PROTEIN SUBUNIT RSVPREF, DILUENT RECONSTITUTED , 0.5 ML, PF 2022 305 complet ed [facility] INFLUENZA, HIGH-DOSE, QUADRIVALENT 1 2021 197 complet ed [facility] COVID-19 (MODERNA), MRNA, LNP-S, BIVALENT, PF, 50 MCG/0.5 ML OR 25MCG/0.25 ML DOSE 1 2021 229 complet ed [facility] COVID-19 (MODERNA), MRNA, LNP-S, PF, 100 MCG/0.5ML DOSE OR 50 MCG/0.25ML DOSE 2020 207 complet ed [facility] COVID-19 (PFIZER), MRNA, LNP-S, PF, 30 MCG/0.3 ML DOSE 3 2020 208 complet ed [facility] INFLUENZA, HIGH-DOSE, QUADRIVALENT, PF 2020 197 complet ed [facility] INFLUENZA, UNSPECIFIED FORMULATION 2020 88 complet ed [facility] TDAP 2020 115 complet ed [employer], [id number] , exp-2022 and given VIS dated 12/17/2020 [facility] ([facility]) ZOSTER RECOMBINANT 2 2020 187 complet ed [facility] [facility] ([facility]) ZOSTER RECOMBINANT 1 2020 187 complet ed [facility] [facility] ([facility]) COVID-19 (PFIZER), MRNA, LNP-S, PF, 30 MCG/0.3 ML DOSE 2 2020 208 complet ed [facility] COVID-19 (PFIZER), MRNA, LNP-S, PF, 30 MCG/0.3 ML DOSE 1 2020 208 complet ed [facility] INFLUENZA, ADJUVANTED, TRIVALENT, PF 2019 168 complet ed [facility] INFLUENZA, UNSPECIFIED FORMULATION 2019 88 complet ed [facility] INFLUENZA, HIGH-DOSE, TRIVALENT, PF 2018 135 complet ed [facility] INFLUENZA, ADJUVANTED, TRIVALENT, PF 2017 168 complet ed [facility] INFLUENZA, UNSPECIFIED FORMULATION 2016 88 complet ed [facility] INFLUENZA, HIGH-DOSE, TRIVALENT, PF 2014 135 complet ed [facility] PNEUMOCOCCAL CONJUGATE PCV 13 2014 133 complet ed Per [facility] INFLUENZA, SPLIT VIRUS, TRIVALENT, PRESERVATIVE 2012 141 complet ed [facility] INFLUENZA, SPLIT VIRUS, TRIVALENT, PRESERVATIVE 2011 141 complet ed [facility] INFLUENZA, SPLIT VIRUS, TRIVALENT, PF 2010 140 complet ed [facility] PNEUMOCOCCAL POLYSACCHARID E PPV23 2010 33 complet ed [facility] INFLUENZA, SPLIT VIRUS, TRIVALENT, PRESERVATIVE 2009 141 complet ed [facility] INFLUENZA, SPLIT VIRUS, TRIVALENT, PF 2008 140 complet ed [facility] INFLUENZA, SPLIT VIRUS, TRIVALENT, PRESERVATIVE 2007 141 complet ed [facility] INFLUENZA, SPLIT VIRUS, TRIVALENT, PRESERVATIVE 2006 141 complet ed [facility] INFLUENZA, SPLIT VIRUS, TRIVALENT, PRESERVATIVE 2005 141 complet ed [facility] PNEUMOCOCCAL POLYSACCHARID E PPV23 2005 33 complet ed [facility] TD (ADULT), 5 LF TETANUS TOXOID, PRESERVATIVE FREE, ADSORBED 2005 113 complet ed [facility] INFLUENZA, SPLIT VIRUS, TRIVALENT, PRESERVATIVE 2004 141 complet ed [facility] INFLUENZA, SPLIT VIRUS, TRIVALENT, PRESERVATIVE 2003 141 complet ed [facility] INFLUENZA, SPLIT VIRUS, TRIVALENT, PRESERVATIVE 2002 141 complet ed [facility] Results Combined list of recent chemistry, hematology [...] Jan 23, 2023 02:00 PM Reporting Lab: [facility] [address] Performing Lab: [facility] [address] [place] ([facility]) BASIC METABOLIC PANEL+MG UREA NITROGEN [MASS/VOLUM E] IN SERUM OR PLASMA 35 mg/dL 8 - 26 01/23 H Specimen Type: PLASMA No comment entered. Ordering Provider: AILIN CHESTER Report Released Date/Time: Jan 23, 2023 02:00 PM Reporting Lab: [facility] [address] Performing Lab: [facility] [address] [place] ([facility]) BASIC METABOLIC PANEL+MG GLUCOSE [MASS/VOLUM E] IN SERUM OR PLASMA 239 mg/dL 70 - 100 01/23 H Specimen Type: PLASMA No comment entered. Ordering Provider: AILIN CHESTER Report Released Date/Time: Jan 23, 2023 02:00 PM Reporting Lab: [place] [address] Performing Lab: [address] ([facility]) BASIC METABOLIC PANEL+MG SODIUM [MOLES/VOLU ME] IN SERUM OR PLASMA 140 mmol/L 136 - 145 01/23 Specimen Type: PLASMA No comment entered. Ordering Provider: AILIN CHESTER Report Released Date/Time: Jan 23, 2023 02:00 PM Reporting Lab: [place] [address] Performing Lab: [address] ([facility]) BASIC METABOLIC PANEL+MG POTASSIUM [MOLES/VOLU ME] IN SERUM OR PLASMA 5.1 mmol/L 3.5 - 5.1 01/23 Specimen Type: PLASMA No comment entered. Ordering Provider: AILIN CHESTER Report Released Date/Time: Jan 23, 2023 02:00 PM Reporting Lab: [place] [address] Performing Lab: [place] [phone] [place] [address] ([facility]) BASIC METABOLIC PANEL+MG CHLORIDE [MOLES/VOLU ME] IN SERUM OR PLASMA 109 mmol/L 98 - 107 01/23 H Specimen Type: PLASMA No comment entered. Ordering Provider: AILIN CHESTER Report Released Date/Time: Jan 23, 2023 02:00 PM Reporting Lab: [facility] [address] Performing Lab: [address] ([facility]) BASIC METABOLIC PANEL+MG CARBON DIOXIDE, TOTAL [MOLES/VOLU ME] IN SERUM OR PLASMA 21 mmol/L 22 - 29 01/23 L Specimen Type: PLASMA No comment entered. Ordering Provider: AILIN CHESTER Report Released Date/Time: Jan 23, 2023 02:00 PM Reporting Lab: [facility] [address] Performing Lab: [facility] [phone] [place] ([facility]) BASIC METABOLIC PANEL+MG CALCIUM [MASS/VOLUM E] IN SERUM OR PLASMA 9.4 mg/dL 8.4 - 10.2 01/23 Specimen Type: PLASMA No comment entered. Ordering Provider: AILIN CHESTER Report Released Date/Time: Jan 23, 2023 02:00 PM Reporting Lab: [place] [phone] Performing Lab: [place] [phone] [place] ([facility]) BASIC METABOLIC PANEL+MG MAGNESIUM [MASS/VOLUM E] IN SERUM OR PLASMA 1.7 mg/dL 1.6 - 2.6 01/23 Specimen Type: PLASMA No comment entered. Ordering Provider: AILIN CHESTER Report Released Date/Time: Jan 23, 2023 02:00 PM Reporting Lab: [facility] [phone] Performing Lab: [facility] [phone] [place] ([facility]) BASIC METABOLIC PANEL+MG ANION GAP IN SERUM OR PLASMA 10 mmol/L 5 - 15 01/23 Specimen Type: PLASMA No comment entered. Ordering Provider: AILIN CHESTER Report Released Date/Time: Jan 23, 2023 02:00 PM Reporting Lab: [facility] [phone] Performing Lab: [place] [phone] [place] [address] ([facility]) BASIC METABOLIC PANEL+MG GLOMERULAR FILTRATION RATE/1.73 SQ M.PREDICTED [VOLUME RATE/AREA] IN SERUM, PLASMA OR BLOOD BY CREATININE- BASED FORMULA (CKD-EPI 2020) 61 60 01/23 Specimen Type: PLASMA No comment entered. Ordering Provider: AILIN CHESTER Report Released Date/Time: Jan 23, 2023 02:00 PM Reporting Lab: [place] [phone] Performing Lab: [place] [phone] [place] ([facility]) BNP NATRIURETIC PEPTIDE B [MASS/VOLUM E] IN SERUM OR PLASMA 1549 pg/mL <99 - 99 01/23 H Specimen Type: PLASMA No comment entered. Ordering Provider: AILIN CHESTER Report Released Date/Time: Jan 23, 2023 02:00 PM Reporting Lab: [facility] [address] Performing Lab: [place] [phone] [place] ([facility]) MICROALBU MIN/CREAT ININE RATIO URINE CREATININE [MASS/VOLUM E] IN URINE 132.8 mg/dL 58.0 - 161.0 11/23 Specimen Type: URINE No comment entered. Ordering Provider: AILIN CHESTER Report Released Date/Time: Nov 23, 2022 11:58 AM Reporting Lab: [facility] [address] Performing Lab: [place] [phone] [place] ([facility]) MICROALBU MIN/CREAT ININE RATIO URINE MICROALBUMI N/CREATININ E [MASS RATIO] IN URINE 28.0 mg/g{c reat} 11/23 Specimen Type: URINE No comment entered. Ordering Provider: AILIN CHESTER Report Released Date/Time: Nov 23, 2022 11:58 AM Reporting Lab: [facility] [phone] Performing Lab: [facility] [phone] [place] ([facility]) MICROALBU MIN/CREAT ININE RATIO URINE MICROALBUMI N [MASS/VOLUM E] IN URINE 37.2 mg/L 11/23 H Specimen Type: URINE No comment entered. Ordering Provider: AILIN CHESTER Report Released Date/Time: Nov 23, 2022 11:58 AM Reporting Lab: [facility] [phone] Performing Lab: [facility] [address] [place] ([facility]) CBC LEUKOCYTES [#/VOLUME] IN BLOOD BY AUTOMATED COUNT 10.80 10*3/u L 4.0 - 11.0 11/23 Specimen Type: BLOOD No comment entered. Ordering Provider: AILIN CHESTER Report Released Date/Time: Nov 23, 2022 11:58 AM Reporting Lab: [facility] [address] Performing Lab: [place] [phone] [place] ([facility]) CBC ERYTHROCYTE S [#/VOLUME] IN BLOOD BY AUTOMATED COUNT 3.87 10*6/u L 4.6 - 6.2 11/23 L Specimen Type: BLOOD No comment entered. Ordering Provider: AILIN CHESTER Report Released Date/Time: Nov 23, 2022 11:58 AM Reporting Lab: [facility] [address] Performing Lab: [place] [phone] [place] ([facility]) CBC HEMOGLOBIN [MASS/VOLUM E] IN BLOOD 12.1 g/dL 13.5 - 17.9 11/23 L Specimen Type: BLOOD No comment entered. Ordering Provider: AILIN CHESTER Report Released Date/Time: Nov 23, 2022 11:58 AM Reporting Lab: [place] [phone] Performing Lab: [place] [phone] [place] ([facility]) CBC HEMATOCRIT [VOLUME FRACTION] OF BLOOD BY AUTOMATED COUNT 37.5 41 - 54 11/23 L Specimen Type: BLOOD No comment entered. Ordering Provider: AILIN CHESTER Report Released Date/Time: Nov 23, 2022 11:58 AM Reporting Lab: [facility] [phone] Performing Lab: [facility] [phone] [place] ([facility]) CBC MCV [ENTITIC VOLUME] BY AUTOMATED COUNT 96.9 fL 80 - 100 11/23 Specimen Type: BLOOD No comment entered. Ordering Provider: AILIN CHESTER Report Released Date/Time: Nov 23, 2022 11:58 AM Reporting Lab: [facility] [phone] Performing Lab: [facility] [phone] [place] ([facility]) CBC MCH [ENTITIC MASS] BY AUTOMATED COUNT 31.3 pg 27 - 33 11/23 Specimen Type: BLOOD No comment entered. Ordering Provider: AILIN CHESTER Report Released Date/Time: Nov 23, 2022 11:58 AM Reporting Lab: [facility] [address] Performing Lab: [facility] [phone] [place] ([facility]) CBC MCHC [MASS/VOLUM E] BY AUTOMATED COUNT 32.3 g/dL 32.0 - 37.5 11/23 Specimen Type: BLOOD No comment entered. Ordering Provider: AILIN CHESTER Report Released Date/Time: Nov 23, 2022 11:58 AM Reporting Lab: [facility] [phone] Performing Lab: [place] [phone] [place] [address] ([facility]) CBC PLATELETS [#/VOLUME] IN BLOOD BY AUTOMATED COUNT 293 10*3/u L 150 - 400 11/23 Specimen Type: BLOOD No comment entered. Ordering Provider: AILIN CHESTER Report Released Date/Time: Nov 23, 2022 11:58 AM Reporting Lab: [address] Performing Lab: [address] ([facility]) CBC PLATELET MEAN VOLUME [ENTITIC VOLUME] IN BLOOD BY AUTOMATED COUNT 10.3 fL 7.4 - 10.4 11/23 Specimen Type: BLOOD No comment entered. Ordering Provider: AILIN CHESTER Report Released Date/Time: Nov 23, 2022 11:58 AM Reporting Lab: [facility] [phone] Performing Lab: [facility] [phone] ([facility]) CBC ERYTHROCYTE DISTRIBUTIO N WIDTH [RATIO] BY AUTOMATED COUNT 13.2 11.5 - 14.5 11/23 Specimen Type: BLOOD No comment entered. Ordering Provider: AILIN CHESTER Report Released Date/Time: Nov 23, 2022 11:58 AM Reporting Lab: [place] [phone] Performing Lab: [place] [phone] ([facility]) COMPREHEN SIVE METABOLIC PANEL+MG CREATININE [MASS/VOLUM E] IN SERUM OR PLASMA 1.2 mg/dL 0.7 - 1.2 11/23 Specimen Type: PLASMA No comment entered. Ordering Provider: AILIN CHESTER Report Released Date/Time: Nov 23, 2022 11:58 AM Reporting Lab: [facility] [phone] Performing Lab: [address] ([facility]) COMPREHEN SIVE METABOLIC PANEL+MG UREA NITROGEN [MASS/VOLUM E] IN SERUM OR PLASMA 34 mg/dL 8 - 26 11/23 H Specimen Type: PLASMA No comment entered. Ordering Provider: AILIN CHESTER Report Released Date/Time: Nov 23, 2022 11:58 AM Reporting Lab: [facility] [phone] Performing Lab: [facility] [phone] [place] ([facility]) COMPREHEN SIVE METABOLIC PANEL+MG GLUCOSE [MASS/VOLUM E] IN SERUM OR PLASMA 54 mg/dL 70 - 100 11/23 L Specimen Type: PLASMA No comment entered. Ordering Provider: AILIN CHESTER Report Released Date/Time: Nov 23, 2022 11:58 AM Reporting Lab: [address] Performing Lab: [place] [phone] [place] ([facility]) COMPREHEN SIVE METABOLIC PANEL+MG SODIUM [MOLES/VOLU ME] IN SERUM OR PLASMA 143 mmol/L 136 - 145 11/23 Specimen Type: PLASMA No comment entered. Ordering Provider: AILIN CHESTER Report Released Date/Time: Nov 23, 2022 11:58 AM Reporting Lab: [facility] [phone] Performing Lab: [facility] [phone] [place] [address] ([facility]) COMPREHEN SIVE METABOLIC PANEL+MG POTASSIUM [MOLES/VOLU ME] IN SERUM OR PLASMA 4.4 mmol/L 3.5 - 5.1 11/23 Specimen Type: PLASMA No comment entered. Ordering Provider: AILIN CHESTER Report Released Date/Time: Nov 23, 2022 11:58 AM Reporting Lab: [facility] [phone] Performing Lab: [facility] [phone] [place] [address] ([facility]) COMPREHEN SIVE METABOLIC PANEL+MG CHLORIDE [MOLES/VOLU ME] IN SERUM OR PLASMA 107 mmol/L 98 - 107 11/23 Specimen Type: PLASMA No comment entered. Ordering Provider: AILIN CHESTER Report Released Date/Time: Nov 23, 2022 11:58 AM Reporting Lab: [place] [phone] Performing Lab: [facility] [phone] [place] ([facility]) COMPREHEN SIVE METABOLIC PANEL+MG CARBON DIOXIDE, TOTAL [MOLES/VOLU ME] IN SERUM OR PLASMA 23 mmol/L 22 - 29 11/23 Specimen Type: PLASMA No comment entered. Ordering Provider: AILIN CHESTER Report Released Date/Time: Nov 23, 2022 11:58 AM Reporting Lab: [place] [phone] Performing Lab: [place] [phone] [place] ([facility]) COMPREHEN SIVE METABOLIC PANEL+MG CALCIUM [MASS/VOLUM E] IN SERUM OR PLASMA 9.7 mg/dL 8.4 - 10.2 11/23 Specimen Type: PLASMA No comment entered. Ordering Provider: AILIN CHESTER Report Released Date/Time: Nov 23, 2022 11:58 AM Reporting Lab: [place] [phone] Performing Lab: [place] [phone] [place] ([facility]) COMPREHEN SIVE METABOLIC PANEL+MG PROTEIN [MASS/VOLUM E] IN SERUM OR PLASMA 7.2 g/dL 6.0 - 8.3 11/23 Specimen Type: PLASMA No comment entered. Ordering Provider: AILIN CHESTER Report Released Date/Time: Nov 23, 2022 11:58 AM Reporting Lab: [facility] [phone] Performing Lab: [place] [phone] [place] ([facility]) COMPREHEN SIVE METABOLIC PANEL+MG ALBUMIN [MASS/VOLUM E] IN SERUM OR PLASMA 4.1 g/dL 3.5 - 5.2 11/23 Specimen Type: PLASMA No comment entered. Ordering Provider: AILIN CHESTER Report Released Date/Time: Nov 23, 2022 11:58 AM Reporting Lab: [facility] [address] Performing Lab: [facility] [phone] [place] ([facility]) COMPREHEN SIVE METABOLIC PANEL+MG BILIRUBIN.T OTAL [MASS/VOLUM E] IN SERUM OR PLASMA 0.5 mg/dL 0.2 - 1.2 11/23 Specimen Type: PLASMA No comment entered. Ordering Provider: AILIN CHESTER Report Released Date/Time: Nov 23, 2022 11:58 AM Reporting Lab: [facility] [phone] Performing Lab: [facility] [phone] [place] ([facility]) COMPREHEN SIVE METABOLIC PANEL+MG MAGNESIUM [MASS/VOLUM E] IN SERUM OR PLASMA 1.4 mg/dL 1.6 - 2.6 11/23 L Specimen Type: PLASMA No comment entered. Ordering Provider: AILIN CHESTER Report Released Date/Time: Nov 23, 2022 11:58 AM Reporting Lab: [facility] [address] Performing Lab: [address] [place] ([facility]) COMPREHEN SIVE METABOLIC PANEL+MG ANION GAP IN SERUM OR PLASMA 13 mmol/L 5 - 15 11/23 Specimen Type: PLASMA No comment entered. Ordering Provider: AILIN CHESTER Report Released Date/Time: Nov 23, 2022 11:58 AM Reporting Lab: [facility] [address] Performing Lab: [facility] [phone] [place] ([facility]) COMPREHEN SIVE METABOLIC PANEL+MG ALKALINE PHOSPHATASE [ENZYMATIC ACTIVITY/VO LUME] IN SERUM OR PLASMA 87 U/L 40 - 150 11/23 Specimen Type: PLASMA No comment entered. Ordering Provider: AILIN CHESTER Report Released Date/Time: Nov 23, 2022 11:58 AM Reporting Lab: [facility] [address] Performing Lab: [facility] [phone] [place] ([facility]) COMPREHEN SIVE METABOLIC PANEL+MG ALANINE AMINOTRANSF ERASE [ENZYMATIC ACTIVITY/VO LUME] IN SERUM OR PLASMA 28 U/L 11/23 Specimen Type: PLASMA No comment entered. Ordering Provider: AILIN CHESTER Report Released Date/Time: Nov 23, 2022 11:58 AM Reporting Lab: [facility] [address] Performing Lab: [facility] [phone] [place] ([facility]) COMPREHEN SIVE METABOLIC PANEL+MG ASPARTATE AMINOTRANSF ERASE [ENZYMATIC ACTIVITY/VO LU[place]] IN SERUM OR PLASMA 33 U/L 11/23 Specimen Type: PLASMA No comment entered. Ordering Provider: AILIN CHESTER Report Released Date/Time: Nov 23, 2022 11:58 AM Reporting Lab: [facility] [address] Performing Lab: [facility] [phone] [place] ([facility]) COMPREHEN SIVE METABOLIC PANEL+MG GLOMERULAR FILTRATION RATE/1.73 SQ M.PREDICTED [VOLUME RATE/AREA] IN SERUM, PLASMA OR BLOOD BY CREATININE- BASED FORMULA (CKD-EPI 2020) 61 11/23 Specimen Type: PLASMA No comment entered. Ordering Provider: AILIN CHESTER Report Released Date/Time: Nov 23, 2022 11:58 AM Reporting Lab: [facility] [address] Performing Lab: [facility] [address] [place] ([facility]) HEMOGLOBI N A1C HEMOGLOBIN A1C/HEMOGLO BIN.TOTAL [...] Nov 23, 2022 11:58 AM Reporting Lab: [facility] [address] Performing Lab: [facility] [phone] [place] ([facility]) LIPID PANEL,NON -FASTING CHOLESTEROL [MASS/VOLUM E] IN SERUM OR PLASMA 130 mg/dL 11/23 Specimen Type: PLASMA No comment entered. Ordering Provider: AILIN CHESTER Report Released Date/Time: Nov 23, 2022 11:58 AM Reporting Lab: [facility] [address] Performing Lab: [facility] [address] [place] ([facility]) LIPID PANEL,NON -FASTING CHOLESTEROL IN HDL [MASS/VOLUM E] IN SERUM OR PLASMA 39 mg/dL 11/23 L Specimen Type: PLASMA No comment entered. Ordering Provider: AILIN CHESTER Report Released Date/Time: Nov 23, 2022 11:58 AM Reporting Lab: [facility] [address] Performing Lab: [facility] [address] [place] ([facility]) LIPID PANEL,NON -FASTING CHOLESTEROL IN LDL [MASS/VOLUM E] IN SERUM OR PLASMA BY CALCULATION 73 mg/dL 11/23 Specimen Type: PLASMA No comment entered. Ordering Provider: AILIN CHESTER Report Released Date/Time: Nov 23, 2022 11:58 AM Reporting Lab: [facility] [address] Performing Lab: [facility] [address] [place] ([facility]) LIPID PANEL,NON -FASTING CHOLESTEROL IN VLDL [MASS/VOLUM E] IN SERUM OR PLASMA BY CALCULATION 18 mg/dL 11/23 Specimen Type: PLASMA No comment entered. Ordering Provider: AILIN CHESTER Report Released Date/Time: Nov 23, 2022 11:58 AM Reporting Lab: [facility] [address] Performing Lab: [facility] [address] [place] ([facility]) LIPID PANEL,NON -FASTING CHOLESTEROL NON HDL [MASS/VOLUM E] IN SERUM OR PLASMA 91 mg/dL 11/23 Specimen Type: PLASMA No comment entered. Ordering Provider: AILIN CHESTER Report Released Date/Time: Nov 23, 2022 11:58 AM Reporting Lab: [facility] [address] Performing Lab: [facility] [address] [place] ([facility]) LIPID PANEL,NON -FASTING TRIGLYCERID E [MASS/VOLUM E] IN SERUM OR PLASMA 92 mg/dL 11/23 Specimen Type: PLASMA No comment entered. Ordering Provider: AILIN CHESTER Report Released Date/Time: Nov 23, 2022 11:58 AM Reporting Lab: [facility] [id number] Performing Lab: [facility] [phone] [facility]) TSH W/REFLEX TO FREE T4 THYROTROPIN [UNITS/VOLU ME] IN SERUM OR PLASMA 4.59 u[IU]/ mL 0.35 - 4.94 11/23 Specimen Type: PLASMA No comment entered. Ordering Provider: AILIN CHESTER Report Released Date/Time: Nov 23, 2022 11:58 AM Reporting Lab: [facility] [phone] Performing Lab: [facility] [phone] [place] ([facility]) Vital Signs Combined list of inpatient and outpatient Vital Signs from [facility] and [facility], ranging from 12 months to all on record, depending upon the facility. Vital Sign Value Date Comments Source Encounters Combined list of: 1) Encounters from [facility] facilities going back up to thelast 18 months. 2) Encounters from the Department [facility] facilities going back up to 280 months. Location Location Details Encounter Type Encounter Number Reason For Visit Attending Provider ADM Date DC Date Status Disposition Source [facility] Outpatient Encounter [id number] 07/31 [facility] Outpatient Encounter [id number] 08/21 [facility] Outpatient Encounter [id number] 09/20 [facility] Outpatient Encounter [id number] 11/11 [facility] Outpatient Encounter [id number] ZARI POWER 11/16 [facility] Outpatient Encounter [id number] 11/21 [facility] ([facility]) OFFICE O/P EST MOD 30-39 MIN [id number] Diagnos is: ICD-10- CM Z00.00 Encntr for general adult medical exam w/o abnorma l finding s
CANDELARIO CHESTER 11/23 [facility]) GAIT TRAINING THERAPY [id number] Diagnos is: ICD-10- CM R26.89 Other abnorma lities of gait and mobilit y
OMAYRA JAMESON V 11/23 [facility] ([facility] [place] [facility] Outpatient Encounter [id number] SA JAMARI JAMESON R 12/11 [place] [facility] [place] [facility] Outpatient Encounter [id number] 12/25 [place] [facility] [place] [facility] Outpatient Encounter [id number] SA TRINO RA R 12/28 [place] [facility] [place] [facility] Outpatient Encounter [id number] 01/05 [place] [facility] [place] [facility] Outpatient Encounter [id number] 01/[address] [place] [facility] [place] [facility] Outpatient Encounter [id number] 01/16 [place] [facility] ([facility]) OFFICE O/P EST HI 40-54 MIN [id number] Diagnos is: ICD-10- CM I50.9 Heart failure , unspeci fied
CANDELARIO CHESTER 01/23 [facility] [place] [facility] Outpatient Encounter [id number] Marcus POTTS I 01/24 [place] [facility] [place] [facility] Outpatient Encounter [id number] Danica TORRE 02/05 [place] [facility] [place] [facility] Outpatient Encounter [id number] 02/09 [place] [facility] [place] [facility] Outpatient Encounter [id number] Danica TORRE 02/09 [place] [facility] [place] [facility] Outpatient Encounter [id number] 02/14 [place] [facility] [place] [facility] Outpatient Encounter [id number] 02/15 [place] [facility] [place] [facility] Outpatient Encounter [id number] 02/19 [place] [facility] [place] [facility] Outpatient Encounter [id number] 02/20 [place] [facility] [place] [facility] Outpatient Encounter [id number] 02/20 [place] [facility] [place] [facility] Outpatient Encounter [id number] 02/20 [place] [facility] [place] [facility] Outpatient Encounter [id number] 02/20 [place] [facility] [place] [facility] Outpatient Encounter [id number] 02/21 [place] [facility] [place] [facility] QNHP OL DIG ASSMT&MGMT 5-10 [id number] Diagnos is: ICD-10- CM E11.9 Type 2 diabete s mellitu s without complic ations< br/> HARDER,SIVA LY 02/22 [place] [facility] PRO PHONE CALL 11-20 MIN [id number] Diagnos is: ICD-10- CM I50.9 Heart failure , unspeci fied
JERMAINE ALCANTAR ANDON M 02/23 [facility] [place] [facility] Outpatient Encounter [id number] 02/26 [place] [facility] [place] [facility] Outpatient Encounter [id number] 03/01 [place] [facility] [place] [facility] Outpatient Encounter [id number] 03/05 [place] [facility] [place] [facility] Outpatient Encounter [id number] SA RA Sandra JAMESON 03/[address] [place] [facility] [place] [facility] Outpatient Encounter [id number] 03/14 [place] [facility] [place] [facility] Outpatient Encounter [id number] TRINO RA R 04/12 [place] [facility] [place] [facility] Outpatient Encounter [id number] TRINO RA R 04/16 [place] [facility] [place] [facility] Outpatient Encounter [id number] TRINO RA R 05/01 [place] [facility] [place] [facility] Outpatient Encounter [id number] 07/11 [facility] [place] [facility] Outpatient Encounter [id number] [facility] [place] [facility] Outpatient Encounter [id number] 07/12 [facility] [place] [facility] PRO PHONE CALL 5-10 MIN [id number] Diagnos is: ICD-10- CM 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
VIV BARFIELD 07/19 [facility] HEARING AID REPAIR/MOD IFYING [id number] Diagnos is: ICD-10- CM 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
CARY CORCORAN 08/09 [facility] [place] [facility] HEARING AID FITTING/CH ECKING [id number] Diagnos is: ICD-10- CM 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
Sy MAKI 09/17 [facility] [place] [facility] Outpatient Encounter [id number] 10/17 [facility] ([facility]) OFFICE O/P EST HI 40 MIN [id number] Diagnos is: ICD-10- CM E11.9 Type 2 diabete s mellitu s without complic ations< br/> CANDELARIO CHESTER DA K 11/07 [facility] ([facility] [place] ([facility]) PT EVAL MOD COMPLEX 30 MIN [id number] Diagnos is: ICD-10- CM Z74.09 Other reduced mobilit y
OMAYRA JAMESON NTER V 12/17 [place] ([facility]) Social History Combined list of available smoking, tobacco, and other social history from Department of Defense and Veterans Affairs facilities. Social History Type Response Date Comment Sourc e Tobacco smoking status NHIS VA-TOBACCO FORMER USER 11/08/2023 [place] ([facility]) History of tobacco use VA-TOBACCO QUIT 1 5 YRS OR MORE 11/08/2023 [place] ([facility]) History of tobacco use VA-TOBACCO FORMER USER 11/23/2022 [place] ([facility]) History of tobacco use VA-TOBACCO FORMER USER 11/29/2021 [place] ([facility]) History of tobacco use VA-TOBACCO FORMER USER 10/21/2020 [place] ([facility]) Plan of Care List of future care activities from Department of Veterans Affairs facilities. Additional future care activities may be listed in the Assessment and Plan section. Date/Time Care Activity Care Activity Detail Facili ty 01/30/2024 AMBULATORY - REHAB MEDICINE AMBULATORY - REHAB MEDICINE [facility] 12/18/2023 Consult Order REHAB OUTPT [place] MOBILITY PM&R PT Cons Chip Mixer's Choice [facility] ([facility])
--- OUTSIDE RECORDS SUMMARY | 2024-01-02 09:10 | XMS_ITS | Continuity of Care Document ---
Author Organization [facility] Mario gy, [facility] Address [address] [place] [address] Care Team Providers Care Chemistry Associate Name Role Phone HARMANTEPARVEZ To Primary Care [...] Address Organization Details Last Updated DateTime 11/28/2023 93935.78 g 23 kg/m2 177.[address] [facility] 11/28/2023 14:16:54 Social History Question Answer Notes LastModified by Organizat ion Details LastModified Time Tobacco Smoking Status [facility]/28[facility]2023 14:22:10 What Is Your Level Of [...] adjuvanted, trivalent, PF 01/10/2018 completed Bennett winn, [facility] 11/28/2023 14:17:02 Influenza, adjuvanted, trivalent, PF 02/12/2020 completed Bennett winn, [facility] 11/28/2023 14:17:02 Influenza, high-dose, quadrivalent, PF 03/09/2021 completed Bennett winn, [facility] 11/28/2023 14:17:02 Influenza, high-dose, quadrivalent, PF 04/05/2022 completed Bennett winn, [facility] 11/28/2023 14:17:02 Influenza, adjuvanted, quadrivalent, PF 03/05/2023 completed Bennett Kimrigal-Valer o null, [facility] 11/28/2023 14:17:02 COVID-19, mRNA, LNP-S, PF, 100 mcg/0.5mL dose or 50 mcg/0.25mL dose 03/09/2021 completed Bennett Kimrigal-Valer o null, [facility] 11/28/2023 14:17:02 COVID-19, mRNA, LNP-S, PF, 30 mcg/0.3 mL dose 07/03/2020 completed Bennett Kimrigal-Valer o null, [facility] 11/28/2023 14:17:02 COVID-19, mRNA, LNP-S, PF, 30 mcg/0.3 mL dose 07/24/2020 completed Bennett Kimrigal-Valer o null, [facility] 11/28/2023 14:17:02 COVID-19, mRNA, LNP-S, bivalent, PF, 50 mcg/0.5 mL or 25mcg/0.25 mL dose 03/29/2022 completed Bennett Kimrigal-Valer o null, [facility] 11/28/2023 14:17:02 RSV, bivalent, protein subunit RSVpreF, diluent reconstituted, 0.5 mL, PF 03/05/2023 completed Bennett Kimrigal-Valer o null, [facility] 11/28/2023 14:17:02 COVID-19, mRNA, LNP-S, PF, estrella-sucrose, 30 mcg/0.3 mL 03/05/2023 completed Bennett Kimrigal-Valer o null, [facility] 11/28/2023 14:17:02 pneumococcal polysaccharide PPV23 02/09/2011 completed Bennett Kimrigal-Valer o null, [facility] 11/28/2023 14:17:02 pneumococcal polysaccharide PPV23 03/06/2006 completed Bennett Kimrigal-Valer o null, [facility] 11/28/2023 14:17:02 influenza, unspecified formulation 03/15/2017 completed Miletzi Mg-Valer o null, [facility] 11/28/2023 14:17:02 Pneumococcal conjugate PCV 13 01/21/2015 completed Milraymoni Mg-Valer o null, [facility] 11/28/2023 14:17:02 Influenza, high-dose, trivalent, PF 01/21/2015 completed Miletzi Mg-Valer o null, [facility] 11/28/2023 14:17:02 Influenza, high-dose, trivalent, PF 03/07/2019 completed Miletzi Mg-Valer o null, [facility] 11/28/2023 14:17:02 Influenza, split virus, trivalent, preservative 01/30/2013 completed Miletzi Mg-Valer o null, [facility] 11/28/2023 14:17:02 Influenza, split virus, trivalent, preservative 02/26/2003 completed Miletzi Mg-Valer o null, [facility] 11/28/2023 14:17:02 Influenza, split virus, trivalent, preservative 03/01/[address] [facility] 11/28/2023 14:17:02 Influenza, split virus, trivalent, preservative 03/05/2007 completed Miletzi Mg-Valer o null, [facility] 11/28/2023 14:17:02 Influenza, split virus, trivalent, preservative 03/06/2006 completed Miletzi Mg-Valer o null, [facility] 11/28/2023 14:17:02 Influenza, split virus, trivalent, preservative 03/09/2005 completed Miletzi Mg-Valer o null, [facility] 11/28/2023 14:17:03 Influenza, split virus, trivalent, preservative 03/09/2008 completed Miletzi Mg-Valer o null, [facility] 11/28/2023 14:17:03 Influenza, split virus, trivalent, preservative 03/13/2012 completed Miletzi Mg-Valer o null, [facility] 11/28/2023 14:17:03 Influenza, split virus, trivalent, preservative 04/28/2010 completed Bennett Kimrigal-Valer o null, [facility] 11/28/2023 14:17:03 Influenza, split virus, trivalent, PF 02/09/2011 completed Jeffninfa Duncanal-Andriaer o null, [facility] 11/28/2023 14:17:03 Influenza, split virus, trivalent, PF 04/05/2009 completed Bennett Kimrigal-Andriaer o null, [facility] 11/28/2023 14:17:03 Td (adult), 5 Lf tetanus toxoid, preservative free, adsorbed 03/06/2006 completed Bennett Kimrigal-Andriaer o null, [facility] 11/28/2023 14:17:03 Past Encounters Encounter ID Performer Location Encounter Start Date Encounter Closed Date Diagnosis/Indication Diagnosis SNOMED-CT Code [id number] Roberto Carballo MD [facility] [address] [place] [id number] 11/28/2023 13:46:09 12/04/2023 16:43:22 [facility] [id number] Health Concerns Section Related Observation LastModified by Organization Detai ls LastModified Time None Recorded Concern Status LastModified by Organization Details LastModified Time None Recorded Payers Encounter Date Sequence Insurance Name Policy Number Policy Cherry Covered Member ID Cherry Member ID Guarantor Name 11/28/2023 1 [place] COST [id number] Rosalina Bowers [id number] Rosalina Bowers Notes Date Note Type Note [...] (03/05/07) - 1.40 (04/28/10) Roberto Carballo MD [address] [place] [address], [place], [address], [facility] 11/30/2023 11:21:51
--- OUTSIDE RECORDS SUMMARY | 2024-01-02 09:10 | XMS_ITS | Data Portability ---
Author Organization [facility] Dominick gy, [facility] Address [address] [place] [address] Care Team Providers Care Dip Painter Name Role Phone VOTELPARVEZ Primary Care Provider [phone] Assessment No assessment recorded. Plan of Treatment [...] Address Organization Details Last Updated DateTime 11/28/2023 83581.78 g 23 kg/m2 177.8 cm Bennett lainezo [facility] 11/28/2023 14:16:54 Social History Question Answer Notes LastModified by Organizat ion Details LastModified Time Tobacco Smoking Status [facility] 11/28/2023 14:22:10 What Is Your Level [...] High Blood Pressure Y Kidney Stones N Diabetes Y High Cholesterol Y Immunizations Vaccine Type Date Status Provider Name and Address Organization Details Recorded Time Influenza, adjuvanted, trivalent, PF 01/10/2018 completed Bennett winn, [facility] 11/28/2023 14:17:02 Influenza, adjuvanted, trivalent, PF 02/12/2020 completed Bennett Mg-Andriaer jina winn, [facility] 11/28/2023 14:17:02 Influenza, high-dose, quadrivalent, PF 03/09/2021 completed Bennett Mg-Odilia winn, [facility] 11/28/2023 14:17:02 Influenza, high-dose, quadrivalent, PF 04/05/2022 completed Bennett Mg-Valer o null, [facility] 11/28/2023 14:17:02 Influenza, adjuvanted, quadrivalent, PF 03/05/2023 completed Bennett Mg-Andriaer o null, [facility] 11/28/2023 14:17:02 COVID-19, mRNA, LNP-S, PF, 100 mcg/0.5mL dose or 50 mcg/0.25mL dose 03/09/2021 completed Bennett Duncanal-Valer o null, [facility] 11/28/2023 14:17:02 COVID-19, mRNA, LNP-S, PF, 30 mcg/0.3 mL dose 07/03/2020 completed Bennett Mg-Valer o null, [facility] 11/28/2023 14:17:02 COVID-19, mRNA, LNP-S, PF, 30 mcg/0.3 mL dose 07/24/2020 completed Bennett Mg-Andriaer o null, [facility] 11/28/2023 14:17:02 COVID-19, mRNA, LNP-S, bivalent, PF, 50 mcg/0.5 mL or 25mcg/0.25 mL dose 03/29/2022 completed Bennett Mg-Valer o null, [facility] 11/28/2023 14:17:02 RSV, bivalent, protein subunit RSVpreF, diluent reconstituted, 0.5 mL, PF 03/05/2023 completed Bennett Mg-Odilia o null, [facility] 11/28/2023 14:17:02 COVID-19, mRNA, LNP-S, PF, estrella-sucrose, 30 mcg/0.3 mL 03/05/2023 completed Bennett Mg-Valer o null, [facility] 11/28/2023 14:17:02 pneumococcal polysaccharide PPV23 02/09/2011 completed Bennett Duncanal-Valer o null, [facility] 11/28/2023 14:17:02 pneumococcal polysaccharide PPV23 03/06/2006 completed Bennett Mg-Andriaer o null, [facility] 11/28/2023 14:17:02 influenza, unspecified formulation 03/15/2017 completed Milraymoni Mg-Valer o null, [facility] 11/28/2023 14:17:02 Pneumococcal conjugate PCV 13 01/21/2015 completed [facility] Mg-Valer o null, [facility] 11/28/2023 14:17:02 Influenza, high-dose, trivalent, PF 01/21/2015 completed [facility] Mg-Valer o null, [facility] 11/28/2023 14:17:02 Influenza, high-dose, trivalent, PF 03/07/2019 completed [facility] Mg-Valer o null, [facility] 11/28/2023 14:17:02 Influenza, split virus, trivalent, preservative 01/30/2013 [facility] 11/28/2023 14:17:02 Influenza, split virus, trivalent, preservative 02/26/2003 completed [facility] Mg-Valer o null, [facility] 11/28/2023 14:17:02 Influenza, split virus, trivalent, preservative 03/01/2004 completed [facility] Mg-Valer o null, [facility] 11/28/2023 14:17:02 Influenza, split virus, trivalent, preservative 03/05/2007 completed [facility] Mg-Valer o null, [facility] 11/28/2023 14:17:02 Influenza, split virus, trivalent, preservative 03/06/2006 [facility] 11/28/2023 14:17:02 Influenza, split virus, trivalent, preservative 03/09/2005 completed [facility] Mg-Valer o null, [facility] 11/28/2023 14:17:03 Influenza, split virus, trivalent, preservative 03/09/2008 [facility], [facility] 11/28/2023 14:17:03 Influenza, split virus, trivalent, preservative 03/13/2012 completed [facility], [facility] 11/28/2023 14:17:03 Influenza, split virus, trivalent, preservative 04/28/2010 completed Jeff Mg-Valer o null, [facility] 11/28/2023 14:17:03 Influenza, split virus, trivalent, PF 02/09/2011 [facility], [facility] 11/28/2023 14:17:03 Influenza, split virus, trivalent, PF 04/05/2009 completed [facility] Mg-Valer o null, [facility] 11/28/2023 14:17:03 Td (adult), 5 Lf tetanus toxoid, preservative free, adsorbed 03/06/2006 completed [facility] null, [facility] 11/28/2023 14:17:03 Past Encounters Encounter ID Performer Location Encounter Start Date Encounter Closed Date Diagnosis/Indication Diagnosis SNOMED-CT Code [id number] Roberto Carballo MD [facility] [address] [place] [id number] 11/28/2023 13:46:09 12/04/2023 16:43:22 Phimosis [id number] Health Concerns Section Related Observation LastModified by Organization Detai ls LastModified Time None Recorded Concern Status LastModified by Organization Details LastModified Time None Recorded Advance Directives Directive None Recorded Payers Encounter Date Sequence Insurance Name Policy Number Policy Cherry Covered Member ID Cherry Member ID Guarantor Name 11/28/2023 1 [place] MEDICARE COST [id number] Rosalina Bowers [id number] Rosalina Bowers Notes Date Note Type Note [...] (03/05/07) - 1.40 (04/28/10) Roberto Carballo MD [address] [place] [address],[place] [address], [place], [address], [facility] 11/30/2023 11:21:51
--- OUTSIDE RECORDS SUMMARY | 2024-01-02 09:11 | XMS_ITS | Referral Summary ---
Author Organization [facility] Address [address] [place] [address] Care Team Providers Care Design Drafter Name Role Phone Elsewhere, Pcp Primary Care Provider Unavailabl e Source Comments Patient records contain information from all sites at [facility]. For routine questions regarding patient records, call [phone] during business hours, M-F 8:00 AM - 5:00 PM Central Time. Record requests for emergency care only can be directed to [phone] at any time.[facility] Allergies No known active allergies Medications [...] guaze. Assessment & Plan (06/15/2023 4:18 PM APPLIANCE MECHANIC): The wound bed is clean. A thin layer of silver stat will be applied with a gauze. Change daily. 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 Left Heel: Area continues to improve. Wound measures [id number]. Edges well defined, attached and 100% re-epithelialized tissues. Granulation tissue is observed along the lining of the edges under the bed of slough/eschar. Eschar is soft but not mushy. Wound bed is still approx 95% or more of slough/eschar. Scant drainage with dressing change. Resident tolerated cares without any concerns. New wound orders as follows: Assessment & Plan (06/15/2023 4:10 PM APPLIANCE MECHANIC): 1: Gently cleanse area with NS. Pat dry. 2. Skin prep to gonsalo-wound. 3. Santyl to wound bed only. 4. Place gauze over wound. 5. cover with island dressing. 6. Change dressing daily. He may be discharged to home with home nursing for wound care . Assessment & Plan (06/01/2023 2:33 PM APPLIANCE MECHANIC): Continue wound care and have COKE CRANE OPERATOR evaluate in one week. Dementia 05/20/2023 Overview (05/24/2023): No documented dementia or behaviors Assessment & Plan (05/24/2023 5:57 PM APPLIANCE MECHANIC): He has low hearing which could contribute to him not understanding Assessment & Plan (05/20/2023 4:20 PM APPLIANCE MECHANIC): Although initial BIMS testing scored 14, he has had episodes of what seems to be sundowning with strong suspicion of underlying dementia. Will have OT further evaluate. Hyperglycemia 04/22/2023 Overview (04/22/2023): Prior to recent hospitalization, insulin glargine dose was 25 units daily and short-acting insulin 10 units with meals. Assessment & Plan (05/24/2023 6:00 PM APPLIANCE MECHANIC): A1C 7.2 He will follow up with his PCP in [place] Assessment & Plan (04/22/2023 8:28 PM APPLIANCE MECHANIC): His appetite has been poor and he has been getting much less insulin than he is used to. His sugars however have been high. Will gradually increase mealtime insulin to 7 units. Previously on 10 units with meals. Provider Relations Specialist (Current) Anticoagulant Treatment 08/2022 Overview (04/16/2023): On [...] side. 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 He will need a standard wheelchair Mr. Woods was admitted to [facility] April 10 following BK right [...] site Assessment & Plan (04/16/2023 7:55 PM APPLIANCE MECHANIC): Pain is well controlled. Stump care consists of washing with normal saline and dry. Cover with dry gauze or ABD b.i.d. he is wearing the knee brace to maintain extension in his working with therapies. He has follow-up with vascular surgery 05/11/2023. Assessment & Plan (04/12/2023 4:53 PM APPLIANCE MECHANIC): Patient and mentioned he is doing well [...] 75mcg. Assessment & Plan (06/05/2023 9:25 PM APPLIANCE MECHANIC): TSH value improved compared to prior value of 16.0 a month ago. Resident /nursing denied symptoms of hypothyroidism. Last T4 was 0.92 in April 2023. president consumer [employer] confirmed levothyroxine is given every morning (6am) without other medications. Therefore, we will increase levothyroxine 50mcg to 75mcg and rechecked TSH in 6 weeks. Nursing instructed to continue monitoring for symptoms of hypothyroidism and contact [facility] provider if any concerns. Assessment & Plan (05/24/2023 5:24 PM APPLIANCE MECHANIC): Increase levothyroxine to 50 mcg daily. alf may give two 25 mcg tablets to equal 50 mcg. He will be discharging in a week Assessment & Plan (04/23/2023 12:56 PM APPLIANCE MECHANIC): TSH will be done. He is currently on levothyroxine 25 mcg daily. Dose will need to be adjusted if TSH is elevated. Assessment & Plan (04/16/2023 7:56 PM APPLIANCE MECHANIC): Recheck TSH mid April. Assessment & Plan (04/12/2023 4:45 PM APPLIANCE MECHANIC): Continue levothyroxine. TSH reordered. 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 01/16/2023 Overview (01/16/2023): Short-term stay. Assessment & Plan (04/12/2023 4:08 PM APPLIANCE MECHANIC): Plans to discharge back home. Patient remains [...] status Assessment & Plan (05/24/2023 5:15 PM APPLIANCE MECHANIC): He will be full code Assessment & Plan (01/17/2023 2:30 PM CDT): Continue full code status Hyperlipidemia 01/16/2023 Overview (05/24/2023): On atorvastatin Assessment & Plan (05/24/2023 6:01 PM APPLIANCE MECHANIC): Stay on statin Assessment & Plan (01/17/2023 2:35 PM CDT): Continue atorvastatin Assessment & Plan (01/17/2023 2:01 PM CDT): Continue atorvastatin Weakness General 01/16/2023 Overview (01/16/2023): This is multifactorial and related to recent hospitalizations and multiple comorbidities. Assessment & Plan (06/05/2023 9:26 PM APPLIANCE MECHANIC): Denied weakness. We will continue therapy. Assessment & Plan (05/24/2023 6:05 PM APPLIANCE MECHANIC): He is getting stronger with therapy. He will continue therapy when he gets his prosthesis. He will have a wheelchair upon discharge. Assessment & Plan (04/12/2023 4:09 PM APPLIANCE MECHANIC): Verbalized improvement with weakness. We will continue [...] 04/11/2023 Assessment & Plan (04/12/2023 3:58 PM APPLIANCE MECHANIC): Stable. Denied dizziness, lightheadedness, shortness of breaths and palpitation. Assessment & Plan (01/17/2023 2:30 PM CDT): Stable. Assessment & Plan (01/17/2023 1:58 PM CDT): Stable. Assessment & Plan (01/16/2023 7:16 PM CDT): Most recent hemoglobin 9.3. Atherosclerotic Heart Diseas e Of [place] Coronary Artery Without Angina Pectoris 01/15/2023 Overview [...] RAP). Assessment & Plan (05/24/2023 5:52 PM APPLIANCE MECHANIC): Stable on current meds Assessment & Plan (04/23/2023 1:02 PM APPLIANCE MECHANIC): BNAP 31,578 on 04/16/23. Dr. Gerardo increased furosemide to 40 mg bid and added spironolactone 25 mg daily. Weight today in [place] was 174 lb. No edema noted in left leg. No dyspnea. On O2 per N/C continuous. No change in medications until renal function results are available. Assessment & Plan (04/16/2023 7:41 PM APPLIANCE MECHANIC): He had multiple medication changes during hospitalization including discontinuation of spironolactone and Entresto. Farxiga is being held. Metoprolol and furosemide doses were decreased. Assessment & Plan (04/12/2023 4:01 PM APPLIANCE MECHANIC): No admission weight yet. Nursing to check [...] 12/22/2022 Assessment & Plan (04/22/2023 8:26 PM APPLIANCE MECHANIC): Pro BN AP earlier today greater than [...] Apixaban Assessment & Plan (05/24/2023 5:53 PM APPLIANCE MECHANIC): half-way anticoagulation on apixaban Assessment & Plan (04/23/2023 1:03 PM APPLIANCE MECHANIC): Ventricular rate controlled today Assessment & Plan (04/12/2023 3:59 PM APPLIANCE MECHANIC): HR well controlled ranging from 82-85. Continue care plan. Assessment & Plan (01/17/2023 2:31 PM CDT): HR well controlled ranging from 64-99. Continue care plan. Assessment & Plan (01/16/2023 8:24 AM CDT): HR well controlled. Continue care plan. Provider Relations Specialist Use Of Insulin Active 12/09/2022 Overview (01/16/2023): On insulin glargine and aspart started during hospitalization December 2022. Assessment & Plan (05/24/2023 5:20 PM APPLIANCE MECHANIC): Nurse reports he is nonadherent to his [...] daily Assessment & Plan (06/07/2023 2:51 PM APPLIANCE MECHANIC): Blood sugars have been elevated due to [...] hypoglycemia. Assessment & Plan (05/29/2023 7:56 PM APPLIANCE MECHANIC): Patient's blood sugar continued to be on [...] possible. Assessment & Plan (05/24/2023 5:59 PM APPLIANCE MECHANIC): Insulin dependent not always compliant with diet. Glargine will be increased to 17 units. Assessment & Plan (05/22/2023 6:43 PM APPLIANCE MECHANIC): Blood sugar continued to be elevated mostly [...] 3 times daily with meals. Follow-up with COKE CRANE OPERATOR next week. Dietitian/dietary to visit with patient and to discuss food options. Assessment & Plan (05/20/2023 4:22 PM APPLIANCE MECHANIC): Recent blood sugars in the SNF setting have been elevated. Short and long-acting insulin doses have changed significantly since admission. Will have him follow- up with COKE CRANE OPERATOR for further review of blood sugars. Assessment & Plan (04/23/2023 1:04 PM APPLIANCE MECHANIC): Blood sugars not controlled. Increase Lantus to 14 units from 12. Assessment & Plan (04/16/2023 7:42 PM APPLIANCE MECHANIC): Was previously on glipizide and higher doses of mealtime aspart. Blood sugars are being checked 4 times daily. May need insulin readjusted. Assessment & Plan (04/12/2023 4:04 PM APPLIANCE MECHANIC): Blood sugars have been I< 200s. Currently [...] to 25 units and follow-up. 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 Assessment & Plan (05/24/2023 5:14 PM APPLIANCE MECHANIC): Stable Assessment & Plan (04/29/2023 7:54 PM APPLIANCE MECHANIC): Today, nursing had reported left lower calf and ankle redness with open wound. On assessing the left calf/ankle, there was an open skin area (abrasion) that has no redness, swelling nor drainage. The skin was not warmth to touch and patient denied pain at 0/10 (nurse manager database was in attendance during visit). Nursing stated does look better than what it was this morning. They have been cleaning the wound area in apply Mepilex. Since there was no symptoms or evidence of infection on the left lower calf and ankle redness with open wound, nursing was instructed to continue skin check daily and current dressing. Contact [facility] providers if worsening skin condition. Of [...] at [facility]. Anemia 01/16/2023 04/12/2023 Overview (04/12/2023): Lab Results Component Value Date WBC 9.0 04/11/2023 HGB 7.8 (L) 04/11/2023 HCT 24.9 (L) 04/11/2023 MCV 95 04/11/2023 PLT 381 04/11/2023 Assessment & Plan (04/12/2023 3:57 PM APPLIANCE MECHANIC): CBC reordered. Denied dizziness, lightheadedness, shortness of [...] 04/11/2023 Assessment & Plan (04/12/2023 4:05 PM APPLIANCE MECHANIC): BMP ordered. Assessment & Plan (01/17/2023 2:35 [...] Overview (01/15/2023): Onychomycosis of toenails; Original Code: [id number] Original Codesystem: SNOMED CT Classification: Medical Confirmation [...] Comments Blood Pressure 107/66 06/18/2023 1:10 PM APPLIANCE MECHANIC Pulse 78 06/18/2023 1:10 PM APPLIANCE MECHANIC Temperature 36.6 ??C (97.8 ??F) 06/18/2023 1:10 PM CS T Respiratory Rate 16 06/18/2023 1:10 PM APPLIANCE MECHANIC Oxygen Saturation 95% 06/18/2023 1:10 PM APPLIANCE MECHANIC Inhaled Oxygen Concentration - - Weight 75.8 kg (167 lb) 06/18/2023 1:10 PM APPLIANCE MECHANIC Height 175.3 cm (5' 9) 04/12/2023 3:21 PM APPLIANCE MECHANIC Body Mass Index 24.66 04/12/2023 3:21 PM APPLIANCE MECHANIC Plan of Treatment Not on file Advance Directives For more information, please contact: [phone] * DNR/DNI (Latest Code Status on File) Date Activated Date Inactivated Comments 05/24/2023 6:14 PM * DNR/DNI Date Activated Date Inactivated Comments 04/12/2023 4:11 PM 04/16/2023 7:15 AM Care Teams Design Drafter Relationship Specialty Start Date End Date Elsewhere, Pcp PCP - General Internal Medicine 08/28/23
--- OUTSIDE RECORDS SUMMARY | 2024-01-02 09:11 | XMS_ITS ---
Author Organization [facility] Address [address] [place] [address] Care Team Providers Care Applied Behavior Specialist Name Role Phone Unavailable Unavailable Unavailable Surgery Details Not on file Complications Check Surgery Details section. Procedure Estimated Blood Loss Check Surgery Details section. Procedure Findings Check Surgery Details section. Procedure Specimens Taken Check Surgery Details section.
--- OUTSIDE RECORDS SUMMARY | 2024-01-02 09:11 | XMS_ITS | Clinical Summary ---
Author Organization [facility] Address [address] [place] [address] Care Team Providers Care Dam Operator Name Role Phone Elsewhere, Pcp Primary Care Provider Unavailabl e Source Comments Patient records contain information from all sites at [facility]. For routine questions regarding patient records, call [phone] during business hours, M-F 8:00 AM - 5:00 PM Central Time. Record requests for emergency care only can be directed to [phone] at any time.[facility] Allergies No known active allergies Medications [...] guaze. Assessment & Plan (06/15/2023 4:18 PM MATURITY CHECKER): The wound bed is clean. A thin layer of silver stat will be applied with a gauze. Change daily. 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 Left Heel: Area continues to improve. Wound measures [id number]. Edges well defined, attached and 100% re-epithelialized tissues. Granulation tissue is observed along the lining of the edges under the bed of slough/eschar. Eschar is soft but not mushy. Wound bed is still approx 95% or more of slough/eschar. Scant drainage with dressing change. Resident tolerated cares without any concerns. New wound orders as follows: Assessment & Plan (06/15/2023 4:10 PM MATURITY CHECKER): 1: Gently cleanse area with NS. Pat dry. 2. Skin prep to gonsalo-wound. 3. Santyl to wound bed only. 4. Place gauze over wound. 5. cover with island dressing. 6. Change dressing daily. He may be discharged to home with home nursing for wound care . Assessment & Plan (06/01/2023 2:33 PM MATURITY CHECKER): Continue wound care and have [facility] [employer] [facility] [facility] evaluate in one week. Dementia 05/20/2023 Overview (05/24/2023): No documented dementia or behaviors Assessment & Plan (05/24/2023 5:57 PM MATURITY CHECKER): He has low hearing which could contribute to him not understanding Assessment & Plan (05/20/2023 4:20 PM MATURITY CHECKER): Although initial BIMS testing scored 14, he has had episodes of what seems to be sundowning with strong suspicion of underlying dementia. Will have OT further evaluate. Hyperglycemia 04/22/2023 Overview (04/22/2023): Prior to recent hospitalization, insulin glargine dose was 25 units daily and short-acting insulin 10 units with meals. Assessment & Plan (05/24/2023 6:00 PM MATURITY CHECKER): A1C 7.2 He will follow up with his PCP in [place] Assessment & Plan (04/22/2023 8:28 PM MATURITY CHECKER): His appetite has been poor and he has been getting much less insulin than he is used to. His sugars however have been high. Will gradually increase mealtime insulin to 7 units. Previously on 10 units with meals. 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 He will need a standard wheelchair Mr. Woods was admitted to [facility] April 10 following BK right lower extremity. [...] site Assessment & Plan (04/16/2023 7:55 PM MATURITY CHECKER): Pain is well controlled. Stump care consists of washing with normal saline and dry. Cover with dry gauze or ABD b.i.d. he is wearing the knee brace to maintain extension in his working with therapies. He has follow-up with vascular surgery 05/11/2023. Assessment & Plan (04/12/2023 4:53 PM MATURITY CHECKER): Patient and mentioned he is doing well [...] 75mcg. Assessment & Plan (06/05/2023 9:25 PM MATURITY CHECKER): TSH value improved compared to prior value of 16.0 a month ago. Resident /nursing denied symptoms of hypothyroidism. Last T4 was 0.92 in April 2023. student affairs vice president confirmed levothyroxine is given every morning (6am) without other medications. Therefore, we will increase levothyroxine 50mcg to 75mcg and rechecked TSH in 6 weeks. Nursing instructed to continue monitoring for symptoms of hypothyroidism and contact [place] provider if any concerns. Assessment & Plan (05/24/2023 5:24 PM MATURITY CHECKER): Increase levothyroxine to 50 mcg daily. [facility] may give two 25 mcg tablets to equal 50 mcg. He will be discharging in a week Assessment & Plan (04/23/2023 12:56 PM MATURITY CHECKER): TSH will be done. He is currently on levothyroxine 25 mcg daily. Dose will need to be adjusted if TSH is elevated. Assessment & Plan (04/16/2023 7:56 PM MATURITY CHECKER): Recheck TSH mid April. Assessment & Plan (04/12/2023 4:45 PM MATURITY CHECKER): Continue levothyroxine. TSH reordered. 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 Assessment & Plan (04/12/2023 4:08 PM MATURITY CHECKER): Plans to discharge back home. Patient remains [...] status Assessment & Plan (05/24/2023 5:15 PM MATURITY CHECKER): He will be full code Assessment & Plan (01/17/2023 2:30 PM CDT): Continue full code status Hyperlipidemia 01/16/2023 Overview (05/24/2023): On atorvastatin Assessment & Plan (05/24/2023 6:01 PM MATURITY CHECKER): Stay on statin Assessment & Plan (01/17/2023 2:35 PM CDT): Continue atorvastatin Assessment & Plan (01/17/2023 2:01 PM CDT): Continue atorvastatin Weakness General 01/16/2023 Overview (01/16/2023): This is multifactorial and related to recent hospitalizations and multiple comorbidities. Assessment & Plan (06/05/2023 9:26 PM MATURITY CHECKER): Denied weakness. We will continue therapy. Assessment & Plan (05/24/2023 6:05 PM MATURITY CHECKER): He is getting stronger with therapy. He will continue therapy when he gets his prosthesis. He will have a wheelchair upon discharge. Assessment & Plan (04/12/2023 4:09 PM MATURITY CHECKER): Verbalized improvement with weakness. We will continue [...] 04/11/2023 Assessment & Plan (04/12/2023 3:58 PM MATURITY CHECKER): Stable. Denied dizziness, lightheadedness, shortness of breaths and palpitation. Assessment & Plan (01/17/2023 2:30 PM CDT): Stable. Assessment & Plan (01/17/2023 1:58 PM CDT): Stable. Assessment & Plan (01/16/2023 7:16 PM CDT): Most recent hemoglobin 9.3. Atherosclerotic Heart Diseas e Of [place] Coronary Artery Without Angina Pectoris 01/15/2023 Overview [...] RAP). Assessment & Plan (05/24/2023 5:52 PM MATURITY CHECKER): Stable on current meds Assessment & Plan (04/23/2023 1:02 PM MATURITY CHECKER): BNAP 31,578 on 04/16/23. Dr. Gerardo increased furosemide to 40 mg bid and added spironolactone 25 mg daily. Weight today in [place] was 174 lb. No edema noted in left leg. No dyspnea. On O2 per N/C continuous. No change in medications until renal function results are available. Assessment & Plan (04/16/2023 7:41 PM MATURITY CHECKER): He had multiple medication changes during hospitalization including discontinuation of spironolactone and Entresto. Farxiga is being held. Metoprolol and furosemide doses were decreased. Assessment & Plan (04/12/2023 4:01 PM MATURITY CHECKER): No admission weight yet. Nursing to check [...] 12/22/2022 Assessment & Plan (04/22/2023 8:26 PM MATURITY CHECKER): Pro BN AP earlier today greater than [...] Apixaban Assessment & Plan (05/24/2023 5:53 PM MATURITY CHECKER): halfway anticoagulation on apixaban Assessment & Plan (04/23/2023 1:03 PM MATURITY CHECKER): Ventricular rate controlled today Assessment & Plan (04/12/2023 3:59 PM MATURITY CHECKER): HR well controlled ranging from 82-85. Continue care plan. Assessment & Plan (01/17/2023 2:31 PM CDT): HR well controlled ranging from 64-99. Continue care plan. Assessment & Plan (01/16/2023 8:24 AM CDT): HR well controlled. Continue care plan. 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 Assessment & Plan (05/24/2023 5:20 PM MATURITY CHECKER): Nurse reports he is nonadherent to his [...] daily Assessment & Plan (06/07/2023 2:51 PM MATURITY CHECKER): Blood sugars have been elevated due to [...] hypoglycemia. Assessment & Plan (05/29/2023 7:56 PM MATURITY CHECKER): Patient's blood sugar continued to be on [...] possible. Assessment & Plan (05/24/2023 5:59 PM MATURITY CHECKER): Insulin dependent not always compliant with diet. Glargine will be increased to 17 units. Assessment & Plan (05/22/2023 6:43 PM MATURITY CHECKER): Blood sugar continued to be elevated mostly [...] 3 times daily with meals. Follow-up with [facility] [employer] next week. Dietitian/dietary to visit with patient and to discuss food options. Assessment & Plan (05/20/2023 4:22 PM MATURITY CHECKER): Recent blood sugars in the SNF setting have been elevated. Short and long-acting insulin doses have changed significantly since admission. Will have him follow- up with [facility] [employer] for further review of blood sugars. Assessment & Plan (04/23/2023 1:04 PM MATURITY CHECKER): Blood sugars not controlled. Increase Lantus to 14 units from 12. Assessment & Plan (04/16/2023 7:42 PM MATURITY CHECKER): Was previously on glipizide and higher doses of mealtime aspart. Blood sugars are being checked 4 times daily. May need insulin readjusted. Assessment & Plan (04/12/2023 4:04 PM MATURITY CHECKER): Blood sugars have been I< 200s. Currently [...] to 25 units and follow-up. 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 Assessment & Plan (05/24/2023 5:14 PM MATURITY CHECKER): Stable Assessment & Plan (04/29/2023 7:54 PM MATURITY CHECKER): Today, nursing had reported left lower calf and ankle redness with open wound. On assessing the left calf/ankle, there was an open skin area (abrasion) that has no redness, swelling nor drainage. The skin was not warmth to touch and patient denied pain at 0/10 (nurse accounting manager cpa was in attendance during visit). Nursing stated does look better than what it was this morning. They have been cleaning the wound area in apply Mepilex. Since there was no symptoms or evidence of infection on the left lower calf and ankle redness with open wound, nursing was instructed to continue skin check daily and current dressing. Contact [facility] providers if worsening skin condition. Of [...] for COVID-19 12/27/2022. Treated with remdesivir at [facility]. Anemia 01/16/2023 04/12/2023 Overview (04/12/2023): Lab Results Component Value Date WBC 9.0 04/11/2023 HGB 7.8 (L) 04/11/2023 HCT 24.9 (L) 04/11/2023 MCV 95 04/11/2023 PLT 381 04/11/2023 Assessment & Plan (04/12/2023 3:57 PM MATURITY CHECKER): CBC reordered. Denied dizziness, lightheadedness, shortness of [...] 04/11/2023 Assessment & Plan (04/12/2023 4:05 PM MATURITY CHECKER): BMP ordered. Assessment & Plan (01/17/2023 2:35 [...] Overview (01/15/2023): Onychomycosis of toenails; Original Code: [id number] Original Codesystem: SNOMED CT Classification: Medical Confirmation [...] Comments Blood Pressure 107/66 06/18/2023 1:10 PM MATURITY CHECKER Pulse 78 06/18/2023 1:10 PM MATURITY CHECKER Temperature 36.6 ??C (97.8 ??F) 06/18/2023 1:10 PM CS T Respiratory Rate 16 06/18/2023 1:10 PM MATURITY CHECKER Oxygen Saturation 95% 06/18/2023 1:10 PM MATURITY CHECKER Inhaled Oxygen Concentration - - Weight 75.8 kg (167 lb) 06/18/2023 1:10 PM MATURITY CHECKER Height 175.3 cm (5' 9) 04/12/2023 3:21 PM MATURITY CHECKER Body Mass Index 24.66 04/12/2023 3:21 PM MATURITY CHECKER Plan of Treatment Health Maintenance Due Date [...] Advance Directives For more information, please contact: [phone] * DNR/DNI (Latest Code Status on File) Date Activated Date Inactivated Comments 05/24/2023 6:14 PM * DNR/DNI Date Activated Date Inactivated Comments 04/12/2023 4:11 PM 04/16/2023 7:15 AM Care Teams Dam Operator Relationship Specialty Start Date End Date Elsewhere, Pcp PCP - General Internal Medicine 08/28/23
--- OUTSIDE RECORDS SUMMARY | 2024-01-02 09:11 | XMS_ITS | Clinical Summary ---
Author Organization [facility] Address [place], [place] [address] Care Team Providers Care Grinder Operator Name Role Phone VotelMelquiades MD Primary Care Provider + Nurses, Advanced Heart Failure Unavailable + Shade Manuel MD Unavailable [phone] Allergies No known active allergies Medications Medication Sig Dispensed Refills Start Date End Date Status blood-glucose meterIndications: Type 2 diabetes mellitus with complication (HC) Ascensia Glucometer, Dispense meter, test strips, lancets covered by pt ins. Test 3 times daily 1 Device 07/09/2020 Active Insulin [place], Disposable, (Novofine 32) 32 gauge x 1/4Indications:2 [...] be used to read blood sugars, follow joiner directions. Change each sensor every 10 days [...] mg sublingual tabletIndications :Coronary artery disease involving standing rock heart without angina pectoris, unspecified vessel or lesion type Place 1 Tablet (0.4 mg) under the tongue every 5 minutes if needed for Chest Pain. Up to 3 tablets in 15 minutes. 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 Up to 60 units dailyGive 10 units three times daily with meals + sliding scale <150 no additional insulin, 150-199: 2 unit, 200-249: 4 units, 250-299: 6 units, 300-349: 8 units, 350-399: 10 units, >400: 12 units and call MD. Up to 60 units daily 12/20/2023 Active pregabalin (LYRICA) 50 mg capsuleIndication s:Phantom limb pain (HC) Take 1 Capsule (50 mg) by mouth three times daily. 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 11/25/2019 HTN (hypertension) 10/28/2015 Hyperlipidemia LDL goal <70 10/28/2015 Adenomatous colon polyp 04/13/2015 Overview: Colonoscopy 04/2015 polyps repeat in 5 years Colonoscopy 03/2020 polyps, repeat in 5 years Background diabetic retinopathy(362.01) 07/10/19 08 Unspecified hearing loss 07/10/2007 Coronary atherosclerosis of unspecified type of vessel, standing rock or graft Overview: 4 vessel CABG 2001 Lexiscan only for cardiac evaluation - no treadmill Other ill-defined and unknow n causes of morbidity and mortality Impotence of organic origin Resolved Problems Problem Noted Date Diagnosed Date Resolved Date Type 2 diabetes mellitus with complication 11/16/2017 12/22/2022 Heart disease, unspecified 0 07/10/2007 Encounters Date Type Department Care Team Description 01/01/2024 10:50 AM CDT Office Visit [facility] [address] [place] [address] VotelMelquiades MD Pain (Phantom pain in rt foot, surgeon recommends yasmine); Derm Problem (Dark spot on left religious) 01/01/2024 Travel 12/27/2023 1:00 PM CDT - 12/27/2023 11:59 PM CDT Hospital Encounter [facility] [address] [place] [address] VoteMelquiades lewis MD Manuell, Kayla, PT 12/27/2023 Travel 12/25/2023 Telephone [facility] [address] [place] [address] VoteMelquiades lewis MD 12/25/2023 Telephone [facility] [address] [place] [address] VoteMelquiades lewis MD Form 12/24/2023 12:54 PM CDT - 12/24/2023 11:59 PM CDT Hospital Encounter [facility] ? [facility] [address] [place] [address] VotelMelquiades MD Manuell, Kayla, PT 12/24/2023 Travel 12/20/2023 12:58 PM CDT - 12/20/2023 11:59 PM CDT Hospital Encounter [facility] ? [facility] [address] [place] [address] Votel, MD Deloris Cleary Kayla, PT 12/20/2023 11:00 AM CDT Patient Outreach [address] [address] Priyanka Hummel RN Diabetes (F/u for insulin management/download CGM) 12/20/2023 Travel 12/17/2023 12:58 PM CDT - 12/17/2023 11:59 PM CDT Hospital Encounter [facility] [address] [place] [address] Votel, MD Deloris Cleary Kayla, PT 12/17/2023 Travel 12/17/2023 Telephone [facility] [address] [place] [address] Votedebbie, Melquiades Gray MD Verbal Orders 12/11/2023 Orders Only [facility] Scanner 1 scan: (1-Ord) [facility], 12/11/2023 12/11/2023 Telephone [facility] [address] [place] [address] VoteMelquiades lewis MD 12/10/2023 1:45 PM CDT - 12/10/2023 11:59 PM CDT Hospital Encounter [facility] [address] [place] [address] Votel, MD Deloris Cleary Kayla, PT 12/10/2023 Travel 12/06/2023 12:55 PM CDT - 12/06/2023 11:59 PM CDT Hospital Encounter [facility] [address] [place] [address] Votel, MD Deloris Cleary Kayla, PT 12/06/2023 Travel 12/05/2023 Orders Only [facility] Scanner 1 scan: (1-Ord) RC, 12/05/2023 12/05/2023 Telephone [facility] [address] [place] [address] Melquiades Man MD 12/04/2023 Telephone [facility] [address] [place] [address] GunnarteMelquiades lewis MD insulin clarification orders 11/26/2023 12:57 PM CDT - 11/26/2023 11:59 PM CDT Hospital Encounter [facility] [address] [place] [address] Votel, MD Edgar Cleary Rebecca L, PT 11/26/2023 Travel 11/22/2023 1:26 PM CDT - 11/22/2023 11:59 PM CDT Hospital Encounter [facility] [address] [place] [address] Gunnartedebbie, MD Deloris Cleary Kayla, PT 11/22/2023 Travel 11/22/2023 Refill [facility] [address] [place] [address] Melquiades Man MD Refill Request (Needs alternative sent in for ~ Insulin Aspart Flexpen Inj 3ml ) 11/20/2023 1:38 PM CDT - 11/20/2023 11:59 PM CDT Hospital Encounter 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 [address] [place] [address] Votel, MD Edgar Cleary Rebecca L, PT 11/12/2023 Travel 11/07/2023 Telephone [facility] [address] [place] [address] VotelMelquiades MD INSULIN ASPART FLEXPEN 11/06/2023 10:25 AM CDT Office Visit [facility] [address] [place] [address] VotelMelquiades MD Medicare ANNUAL (subsequent) Visit (83 year old male); Medication Management (insulin) 11/06/2023 Telephone [facility] [address] [place] [address] Votel, Melquiades Gray MD Form 11/05/2023 12:49 PM CDT - 11/05/2023 11:59 PM CDT Hospital Encounter [facility] [address] [place] [address] Votel, MD Edgar Cleary Rebecca L, PT 11/05/2023 Travel 11/01/2023 1:00 PM CDT - 11/01/2023 11:59 PM CDT Hospital Encounter [facility] [address] [place] [address] Votel, MD Edgar Cleary Rebecca L, PT 11/01/2023 Travel 10/31/2023 Telephone [facility] [address] [place] [address] VoteMelquiades lewis MD 10/30/2023 10:00 AM CDT Patient Outreach [facility] [address] [place] [address] Priyanka Hummel, boot and saddle repair person (Insulin management/education ) 10/29/2023 12:25 PM CDT - 10/29/2023 11:59 PM CDT Hospital Encounter [facility] ? [facility] [address] [place] [address] Votel, MD Edgar Cleary Rebecca L, PT 10/29/2023 Travel 10/25/2023 1:15 PM CDT - 10/25/2023 11:59 PM CDT Hospital Encounter [facility] ? [facility] [address] [place] [address] Votel, MD Edgar Cleary Rebecca L, PT 10/25/2023 Travel 10/23/2023 Telephone [facility] [address] [place] [address] Votedebbie, Melquiades Gray MD 10/22/2023 1:21 PM CDT - 10/22/2023 11:59 PM CDT Hospital Encounter [facility] ? [facility] [address] [place] [address] Votel, MD Edgar Cleary Rebecca L, PT 10/22/2023 Travel 10/18/2023 1:45 PM CDT - 10/18/2023 11:59 PM CDT Hospital Encounter [facility] ? [facility] [address] [place] [address] Melquiades Man MD Manuell, Kayla, PT 10/18/2023 Travel 10/17/2023 Telephone [facility] [address] [place] [address] Melquiades Man MD Outside Order (regarding frequency of home health visits) 10/15/2023 12:55 PM CDT - 10/15/2023 11:59 PM CDT Hospital Encounter [facility] ? [facility] [address] [place] [address] VoteMelquiades lewis MD Tonsfeldt, Isabelle, PT 10/15/2023 Travel 10/11/2023 12:51 PM CDT - 10/11/2023 11:59 PM CDT Hospital Encounter [facility] [address], [place] [address] Melquiades Man MD Tonsfeldt, Isabelle, PT 10/11/2023 Travel 10/11/2023 Telephone [facility] [address] [place] [address] Melquiades Man MD 10/09/2023 Telephone [facility] [address] [place] [address] Melquiades Man MD Form 10/05/2023 Transcribe Orders [address] [address] Isatu Hanley MD 10/04/2023 1:42 PM CDT - 10/04/2023 11:59 PM CDT Hospital Encounter [facility] [address], [place] [address] Melquiades Man MD Tonsfeldt, Isabelle, PT 10/04/2023 9:35 AM CDT Office Visit [facility] [address] [place] [address] Rachel Sauceda, DO Diabetes 10/04/2023 Telephone [facility] [address] [place] [address] Rachel Sauceda, DO Medication Management 10/04/2023 Travel 10/03/2023 Refill [facility] [address] [place] [address] Shade Manuel MD Refill Request (Adriennega) from Last 3 Months Immunizations Name Administration Dates Next Due COVID-19 vaccine (Moderna 100mcg/0.5mL) PF, MDV 03/09/2021 COVID-19 vaccine (Moderna 50 mcg/0.5mL) 12YO+ BIVALENT PF, MDV 03/29/2022 COVID-19 vaccine (Pfizer-Bio NTech 30mcg/0.3mL) PF, MDV 03/09/2021,07/24/2020,07/03/2020 COVID-19 vaccine Comirnaty (Frograms-BioNTech 30mcg/0.3mL) 12YO+ [id number] Formula PF, SDV, PFS 03/05/2023 Influenza Virus, [...] Sign Reading Time Taken Comments Blood Pressure 104/63 01/01/2024 11:03 AM CDT Pulse 63 01/01/2024 11:03 AM CDT Temperature 36.4 ??C (97.5 ??F) 11/06/2023 1 0:30 AM CDT Respiratory Rate 24 05/03/2023 7:04 AM COMMUNITY HEALTH DIRECTOR Oxygen Saturation 98% 01/01/2024 11: 03 AM CDT Inhaled Oxygen Concentration - - Weight 71.7 kg (158 lb) 10/04/2023 9:26 AM CDT patient reported Height 175.3 cm (5' 9.02) 07/27/2023 1 1:51 AM CDT Body Mass Index 23.32 07/27/2023 11:51 AM CDT Plan of Treatment Upcoming Encounters Date Type Department Care Team (Late st Contact Info) Description 01/04/2024 2:00 PM CDT Office Visit [facility] [address] [place] [address] Tatyana Nguyen PA [address] [place] [address] 01/08/2024 1:30 PM CDT Office Visit [facility] [address] [facility] [address] [facility] [place] [address] Shade Manuel MD [address] [facility] [address] [place] [address] 01/17/2024 11:00 AM CDT Patient Outreach [facility] [address] [place] [address] Priyanka Hummel, RN [address] [place] [address] Health Maintenance Due Date Last Done Comments [...] 11.0 thou/cu mm 11/06/2023 12:44 PM CDT [facility] RED BLOOD COUNT 3.98(L) 4.30 - 5.90 mil/cu mm 11/06/2023 12:44 PM CDT [facility] HEMOGLOBIN 12.0(L) 13.5 - 17.5 g/dL 11/06/2023 12:44 PM CDT [facility] HEMATOCRIT 36.7(L) 37.0 - 53.0 % 11/06/2023 12:44 PM CDT [facility] MCV 92 80 - 100 fL 11/06/2023 12:44 PM CDT [facility] MCH 30.2 26.0 - 34.0 pg 11/06/2023 12:44 PM CDT [facility] MCHC 32.7 32.0 - 36.0 g/dL 11/06/2023 12:44 PM CDT [facility] RDW 15.9(H) 11.5 - 15.5 % 11/06/2023 12:44 PM CDT [facility] PLATELET COUNT 273 140 - 440 thou/cu mm 11/06/2023 12:44 PM CDT [facility] MPV 9.6 6.5 - 11.0 fL 11/06/2023 12:44 PM CDT [facility] % NEUT 69.0 % 11/06/2023 12:44 PM CDT [facility] % LYMPH 18.8 % 11/06/2023 12:44 PM CDT [facility] % MONO 7.6 % 11/06/2023 12:44 PM CDT [facility] % EOS 3.8 % 11/06/2023 12:44 PM CDT [facility] % BASO 0.8 % 11/06/2023 12:44 PM CDT [facility] ABSOLUTE NEUTROPHILS 5.9 1.7 - 7.0 thou/cu mm 11/06/2023 12:44 PM CDT [facility] ABSOLUTE LYMPHOCYTES 1.6 0.9 - 2.9 thou/cu mm 11/06/2023 12:44 PM CDT [facility] ABSOLUTE MONOCYTES 0.6 <0.9 thou/cu mm 11/06/2023 12:44 PM CDT [facility] ABSOLUTE EOSINOPHILS 0.3 <0.5 thou/cu mm 11/06/2023 12:44 PM CDT [facility] ABSOLUTE BASOPHILS 0.1 <0.3 thou/cu mm 11/06/2023 12:44 PM CDT [facility] Blood BLOOD SPECIMEN / Unknown Butterfly / Unknown 11/06/2023 12:33 PM CDT 11/06/2023 12:37 PM CDT Melquiades Man MD HEMATOLOGY [facility] [address] [place] [address], * LIPID PANEL W REFLEX MEASURED LDL (11/06/2023 12:33 PM CDT) CHOLESTEROL,TOTAL 156 100 - 199 mg/dL 11/07/2023 1:57 AM T [facility] Comment: Cholesterol, Total Reference Ranges Desirable <200 mg/dL Borderline 200-239 mg/dL High >=240 mg/dL TRIGLYCERIDES 124 <150 mg/dL 11/07/2023 1:57 AM CDT [facility] HDL CHOLESTEROL 56 >40 mg/dL 1:57 AM T [facility] NON-HDL CHOLESTEROL 100 <145 mg/dl 11/07/2023 1:57 AM T [facility] CHOL/HDL RATIO 2.79 <4.50 11/07/2023 1:57 AM T [facility] LDL CHOLESTEROL 75 <=130 mg/dL 11/07/2023 1:57 AM CDT [facility] VLDL CHOLESTEROL 25 <=30 mg/dL 11/07/2023 1:57 AM CDT [facility] PROVIDER ORDERED STATUS RANDOM 11/07/2023 1:57 AM CDT [facility] Blood BLOOD SPECIMEN / Unknown Butterfly / Unknown 11/06/2023 12:33 PM CDT 11/06/2023 12:37 PM CDT Melquiades Man MD CHEMISTRY Performing Organization Address [facility] Co de Phone Number [facility] [address] [place] [id number], [place] * TSH (11/06/2023 12:33 PM CDT) TSH 2.24 0.27 - 4.20 uIU/mL 11/07/2023 1:57 AM CDT [facility] Blood BLOOD SPECIMEN / Unknown Butterfly / Unknown 11/06/2023 12:33 PM CDT 11/06/2023 12:37 PM CDT Narrative [facility] - 11/07/2023 1:57 AM CDT In Adults, TSH values between 5.00 and 10.00 uIU/ml do not necessarily indicate the presence of Hypothyroidism. Correlation with clinical findings such as presence of goiter and/or Thyroperoxidase (TPO) Antibody may be helpful. For more information please refer to RONNIE 2004; 291: 228-238. Melquiades Mna MD CHEMISTRY Performing Organization Address [facility] Co de Phone Number [facility] [address] [place] [id number], [place] * ALT (SGPT) (11/06/2023 12:33 PM CDT) ALT (SGPT) 21 10 - 50 IU/L 11/07/2023 1:57 AM CDT [facility] Blood BLOOD SPECIMEN / Unknown Butterfly / Unknown 11/06/2023 12:33 PM CDT 11/06/2023 12:37 PM CDT Melquiades Man MD CHEMISTRY [facility] [address] [place] [address], * (ABNORMAL) BASIC METABOLIC PANEL (11/06/2023 12:33 PM CDT) SODIUM 139 136 - 145 mmol/L 11/07/2023 1:57 AM CDT [facility] POTASSIUM 4.8 3.5 - 5.1 mmol/L 11/07/2023 1:57 AM CDT [facility] CHLORIDE 102 98 - 107 mmol/L 11/07/2023 1:57 AM CDT [facility] CO2,TOTAL 23 22 - 29 mmol/L 11/07/2023 1:57 AM T [facility] ANION GAP 14 5 - 18 11/07/2023 1:57 AM T [facility] GLUCOSE 137(H) 70 - 99 mg/dL 11/07/2023 1:57 AM T [facility] CALCIUM 10.0 8.8 - 10.2 mg/dL 11/07/2023 1:57 AM T [facility] BUN 42(H) 8 - 23 mg/dL 11/07/2023 1:57 AM T [facility] CREATININE 1.65(H) 0.70 - 1.20 mg/dL 11/07/2023 1:57 AM T [facility] BUN/CREAT RATIO 25(H) 10 - 20 1:57 AM T [facility] eGFR 41(L) >90 mL/min/1.7 3m2 11/07/2023 1:57 AM T [facility] Comment:As of 2021, [...] Melquiades Man MD CHEMISTRY Performing Organization Address [facility] de Phone Number [facility] [address] [place] [address], * (ABNORMAL) HEMOGLOBIN A1C MONITORING (POCT) (10/04/2023 9:44 AM CDT) HEMOGLOBIN A1C MONITORING (POCT) 11.6(H) <=6.4 % 10/04/2023 9:53 AM CDT [facility] Blood BLOOD SPECIMEN / Unknown Venipuncture / Unknown 10/04/2023 9:44 AM CDT 10/04/2023 9:44 AM CDT Narrative [facility] - 10/04/2023 9:53 AM CDT [...] Rachel Sauceda DO CHEMISTRY Performing Organization Address [facility] Co de Phone Number [facility] [address] [place] [address], [place] [phone] from Last 3 Months Additional Health Concerns [...] 12 months since positive culture): resides in acute/shelter care, receiving hemodialysis, has chronic open wounds/skin damage, has long-term percutaneous indwelling medical devices Exclusions for nares collection (if <12 months since positive culture) include all of the previous exclusions plus patients on antibiotics 7 days prior to collection 03/08/2023 05/31/2023 ESBL 04/26/2023 04/26/2023 Advance Directives Documents on File Type Date Recorded 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
== END 2024-01-02 09:09 | disposition home or self-care (01) ==
LOC: WOUND 09:08
PROVIDERS: PCP Family Medicine; Visit Provider Surgery
DX: Z86.31 Personal history of diabetic foot ulcer (principal); Z79.4 Long term (current) use of insulin; Z79.84 Long term (current) use of oral hypoglycemic drugs
CPT/HCPCS: G0463

== ENCOUNTER 2024-02-04 11:42 | Emergency (ER) | payer MEDICARE, BC, SELFPAY ==
[2024-02-04 11:50] VITALS: BP 101/63; PULSE 104; RESP 18; TEMP 37; O2SAT 96; BMI 25.1
--- NOTE | 2024-02-04 12:19 | CRLHL7_ITS ---
For Patients: As a result of the Cures Act, medical imaging exams and procedure reports are released immediately into your electronic medical record. You may view this report before your referring provider. If you have questions, please contact your health care provider. INDICATION: Fall. TECHNIQUE: Head CT without contrast. COMPARISON: None. FINDINGS: CSF spaces: Within normal limits for age. Brain parenchyma and extra-axial spaces: There are nonspecific low attenuation white matter changes consistent with chronic microvascular disease. 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 No sign of mass, hemorrhage, or midline shift. Skull base and calvarium: The visualized paranasal sinuses and mastoid air cells demonstrate no acute or significant findings. The visualized orbits are grossly unremarkable. No skull fractures. IMPRESSION: No intracranial hemorrhage identified. No skull fracture is identified. Please note that all CT scans at this facility use dose modulation, iterative reconstruction, and/or weight-based dosing when appropriate to reduce radiation dose to as low as reasonably achievable. Dictated by Jessenia Strickland MD @ 02/04/2024 1:59:23 PM (Electronically Signed)
--- NOTE | 2024-02-04 12:19 | CRLHL7_ITS ---
For Patients: As a result of the Century Cures Act, medical imaging exams and procedure reports are released immediately into your electronic medical record. You may view this report before your referring provider. If you have questions, please contact your health care provider. INDICATION: FALL. NECK PAIN. HX OF FRACTURE. TECHNIQUE: CT cervical spine without contrast. COMPARISON: None. FINDINGS: Vertebrae: There is kyphosis centered at the C5-C6 level.. There are no fractures or suspicious bony lesions. Discs and facet joints: There are diffuse degenerative changes in the disc spaces and facet joints. Extraspinal findings: Calcifications along the nuchal ligament. Otherwise, paraspinous soft tissues are unremarkable. IMPRESSION: 1. No sign of acute injury. 2. Multilevel degenerative spondylosis. Please note that all CT scans at this facility use dose modulation, iterative reconstruction, and/or weight-based dosing when appropriate to reduce radiation dose to as low as reasonably achievable. Dictated by Jessenia Strickland MD @ 02/04/2024 2:04:01 PM (Electronically Signed)
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
[2024-02-04 13:06] LABS: Basophils Absolute Auto 0.03 K/uL (0.00-0.30); Basophils Percent Auto 0.3 % (0.0-3.0); Eosinophils Absolute Auto 0.22 K/uL (0.00-0.50); Eosinophils Percent Auto 2.1 % (0.0-7.0); Hematocrit 38.2 % (37.0-53.0); Hemoglobin* 11.8 gm/dL (13.5-17.5); Immature Granulocytes Abs Auto 0.04 K/uL (0.00-0.30); Immature Granulocytes Pct Auto 0.4 %; Lymphocytes Percent Auto 11.2 % (20-44); Mean Corpuscular HGB Conc 31 gm/dL (32-36); Mean Corpuscular Hemoglobin 30 pg (26-34); Mean Corpuscular Volume 97 fL (80-100); Monocytes Percent Auto 9.1 % (0.0-11.0); Neutrophils Percent Auto 76.9 % (42.0-72.0); Platelet Count* 240 K/uL (140-440); RDW Coefficient of Variation % 14.8 % (11.5-15.5); Red Blood Count 3.96 m/uL (4.30-5.90); Slide Review Reflex No; White Blood Count* 10.71 K/uL (4.50-11.00)
--- OUTSIDE RECORDS SUMMARY | 2024-02-04 13:09 | XMS_ITS | Continuity of Care Document ---
Author Name [facility] Organization [facility] Care Team Providers Care Fitness Attendant Name Role Phone [facility] Unavailable Unavailable Problems Combined list of problems from Department of Defense and Veterans Affairs facilities. It does not include entries that were removed or entered in error. Problem Status Onset Date Problem Type Date of Resolution Comments Source Exposure to potentially hazardous substance ([facility] [id number]) Active 07/20/19 24 Condition Jul 20, 2023 Entered By: MECHELLE DEMPSEY Comment: [facility] TAM Documentation Initiative [facility] CAD - Coronary Artery Disease ([facility] [id number]) Active Condition [place] ([facility]) CHF - Congestive Heart Failure ([facility] [id number]) Active Condition [place] ([facility]) Diabetes Mellitus Type 2 ([facility] [id number]) Active Condition [place] ([facility]) History of amputation of right leg through tibia and fibula [facility] HTN - Hypertension ([facility] [id number]) Active Condition [place] ([facility]) Hyperlipidemia ([facility] [id number]) Active Condition [place] ([facility]) Hypothyroidism ([facility] [id number]) Active Condition [place] ([facility]) Long-term current use of insulin Active Condition [place] ([facility]) Peripheral neuropathy due to type 2 diabetes mellitus Active Condition [place] ([facility]) Diagnosis: ICD-10-CM Z46.1 Encounter for fitting and adjustment of hearing aid Active Diagnosis [facility] Diagnosis: ICD-10-CM R53.1 Weakness Active Diagnosis [facility] Diagnosis: ICD-10-CM Z74.09 Other reduced mobility Active Diagnosis [place] ([facility]) Diagnosis: ICD-10-CM E11.9 Type 2 diabetes mellitus without complications Active Diagnosis [place] ([facility]) Diagnosis: ICD-10-CM H90.3 Sensorineural hearing loss, bilateral Active Diagnosis [facility] Diagnosis: ICD-10-CM I50.9 Heart failure, unspecified Active Diagnosis [place] ([facility]) Diagnosis: ICD-10-CM R26.89 Other abnormalities of gait and mobility Active Diagnosis [place] ([facility]) Diagnosis: ICD-10-CM Z00.00 Encntr for general adult [...] Feb 15, 2023 40 Feb 16, 2024 [id number] Feb 20, 2023 KATHY MURPHY [facility] ACTIVE 02/16/2024 [id number] KATHY MURPHY 2022 40 [facility] CLOPIDOGREL BISULFATE 75MG TAB CLOPIDOG REL [...] at: [place] ([facility]) ORAL ACTIVE HENRIKRYAN 2023 [place] ([facility]) FUROSEMIDE 20MG TAB [...] at: [place] ([facility]) SUBCUT ANEOUS ACTIVE HENRIKRYAN 2023 [place] ([facility]) INSULIN,ASP ART,HUMAN (EQV-NOVOLO G) 100 UNIT/ML,FLE XPEN,3ML INSULIN, ASPART,H UMAN (EQV-NOV OLOG) 100 UNIT/ML, FLEXPEN, 3ML Active INJECT 16 UNITS UNDER THE SKIN BEFORE MEALS FOR DIABETES SLIDING SCALE 2 UNITS FOR BLOOD SUGARS 150-199, 4 UNITS 200-249, 6 UNITS 250-299, 8 UNITS 300-349, 10 UNITS FOR 350-390, AND 12 UNITS FOR GREATER THAN 400 UNITS AND CALL MD. MAY USE UP TO 60 UNITS/DA Y FOR DIABETES Jan 10, 2024 10 Jan 10, 2025 [id number] Jan 11, 2024 JERMAINE CHESTER [place] ([facility]) SUBCUT ANEOUS ACTIVE 01/10/2025 [id number] RYAN CHESTER 2023 10 [place] ([facility]) INSULIN,ASP ART,HUMAN (EQV-NOVOLO G) 100 UNIT/ML,FLE XPEN,3ML INSULIN, ASPART,H UMAN (EQV-NOV OLOG) 100 UNIT/ML, FLEXPEN, 3ML Disconti nued INJECT 8 UNITS UNDER THE SKIN BEFORE [...] Nov 08, 2023 10 Nov 08, 2024 [id number] Nov 09, 2023 JERMAINE CHESTER [place] ([facility]) SUBCUT ANEOUS DISCONT INUED (EDIT) 11/08/2024 [id number] RYAN CHESTER 2023 10 [place] ([facility]) [...] 26, 2023 [facility]-[place] Document ed by: ZANDRA CHESTER P Document ed at: [place] ([facility]) [...] Site Reaction Lot Number CVX Code Drug Business Office Technician Status Comments Source COVID-19 ([employer]), MRNA, LNP-S, PF, NAVYA-SUCROSE, 30 MCG/0.3 ML (AGES 12+ YEARS) 2022 309 complet ed [facility] INFLUENZA, ADJUVANTED, QUADRIVALENT, PF 2022 205 complet ed [facility] RSV, BIVALENT, PROTEIN SUBUNIT RSVPREF, DILUENT RECONSTITUTED , 0.5 ML, PF 2022 305 complet ed [facility] INFLUENZA, HIGH-DOSE, QUADRIVALENT 1 2021 197 complet ed [facility] COVID-19 (MODERNA), MRNA, LNP-S, BIVALENT, PF, 50 MCG/0.5 ML OR 25MCG/0.25 ML DOSE 1 2021 229 complet ed [facility] COVID-19 (MODERNA), MRNA, LNP-S, PF, 100 MCG/0.5ML DOSE OR 50 MCG/0.25ML DOSE 2020 207 complet ed [facility] COVID-19 (PFIZER), MRNA, LNP-S, PF, 30 MCG/0.3 ML DOSE 3 2020 208 complet ed [facility] INFLUENZA, HIGH-DOSE, QUADRIVALENT, PF 2020 197 complet ed [facility] INFLUENZA, UNSPECIFIED FORMULATION 2020 88 complet ed [facility] TDAP 2020 115 complet ed [employer]line, lot-[id number] , exp-2022 and given VIS dated 12/17/2020 [place] ([facility]) ZOSTER RECOMBINANT 2 2020 187 complet ed [place] ([facility]) ZOSTER RECOMBINANT 1 2020 187 complet ed [place] ([facility]) COVID-19 ([employer]), MRNA, LNP-S, PF, 30 MCG/0.3 ML DOSE 2 2020 208 complet ed [facility] COVID-19 ([employer]), MRNA, LNP-S, PF, 30 MCG/0.3 ML DOSE 1 2020 208 complet ed [facility] INFLUENZA, ADJUVANTED, TRIVALENT, PF 2019 168 complet ed [facility] INFLUENZA, UNSPECIFIED FORMULATION 2019 88 complet ed [facility] INFLUENZA, HIGH-DOSE, TRIVALENT, PF 2018 135 complet ed [facility] INFLUENZA, ADJUVANTED, TRIVALENT, PF 2017 168 complet ed [facility] INFLUENZA, UNSPECIFIED FORMULATION 2016 88 complet ed [facility] INFLUENZA, HIGH-DOSE, TRIVALENT, PF 2014 135 complet ed [facility] PNEUMOCOCCAL CONJUGATE PCV 13 2014 133 complet ed [facility] INFLUENZA, SPLIT VIRUS, TRIVALENT, PRESERVATIVE 2012 141 complet ed [facility] INFLUENZA, SPLIT VIRUS, TRIVALENT, PRESERVATIVE 2011 141 complet ed [facility] INFLUENZA, SPLIT VIRUS, TRIVALENT, PF 2010 140 complet ed [facility] PNEUMOCOCCAL POLYSACCHARID E PPV23 2010 33 complet ed [facility] INFLUENZA, SPLIT VIRUS, TRIVALENT, PRESERVATIVE 2009 141 complet ed [facility] INFLUENZA, SPLIT VIRUS, TRIVALENT, PF 2008 140 complet [facility] INFLUENZA, SPLIT VIRUS, TRIVALENT, PRESERVATIVE 2007 141 complet ed [facility] INFLUENZA, SPLIT VIRUS, TRIVALENT, PRESERVATIVE 2006 141 complet ed [facility] INFLUENZA, SPLIT VIRUS, TRIVALENT, PRESERVATIVE 2005 141 complet ed [facility] PNEUMOCOCCAL POLYSACCHARID E PPV23 2005 33 complet ed [facility] TD (ADULT), 5 LF TETANUS TOXOID, PRESERVATIVE FREE, ADSORBED 2005 113 complet [facility] INFLUENZA, SPLIT VIRUS, TRIVALENT, PRESERVATIVE 2004 141 complet ed [facility] INFLUENZA, SPLIT VIRUS, TRIVALENT, PRESERVATIVE 2003 141 complet [facility] INFLUENZA, SPLIT VIRUS, TRIVALENT, PRESERVATIVE 2002 141 complet ed [facility] Results Combined list of recent chemistry, hematology and other laboratory results from Department of Defense and Veterans Affairs, ranging from 15 months to all on record, depending upon the facility. Order Name Results Value Reference Range Date Interpretation Specimen Comments Source BNP NATRIURETIC PEPTIDE B [MASS/VOLUM E] IN SERUM OR PLASMA 1549 pg/mL <99 - 99 01/23 H Specimen Type: PLASMA No comment entered. Ordering Provider: AILIN CHESTER Report Released Date/Time: Jan 23, 2023 02:00 PM Reporting Lab: [facility] [address] Performing Lab: [facility] [address] [place] ([facility]) BASIC METABOLIC PANEL+MG CREATININE [MASS/VOLUM E] IN SERUM OR PLASMA 1.2 mg/dL 0.7 - 1.2 01/23 Specimen Type: PLASMA No comment entered. Ordering Provider: AILIN CHESTER Report Released Date/Time: Jan 23, 2023 02:00 PM Reporting Lab: [facility] [address] Performing Lab: [facility] [address] [place] ([facility]) BASIC METABOLIC PANEL+MG UREA NITROGEN [MASS/VOLUM E] IN SERUM OR PLASMA 35 mg/dL 8 - 26 01/23 H Specimen Type: PLASMA No comment entered. Ordering Provider: AILIN CHESTER Report Released Date/Time: Jan 23, 2023 02:00 PM Reporting Lab: [facility] [address] Performing Lab: [facility] [address] [place] ([facility]) BASIC METABOLIC PANEL+MG GLUCOSE [MASS/VOLUM E] IN SERUM OR PLASMA 239 mg/dL 70 - 100 01/23 H Specimen Type: PLASMA No comment entered. Ordering Provider: AILIN CHESTER Report Released Date/Time: Jan 23, 2023 02:00 PM Reporting Lab: [facility] [address] Performing Lab: [facility] [address] [place] ([facility]) BASIC METABOLIC PANEL+MG SODIUM [MOLES/VOLU ME] IN SERUM OR PLASMA 140 mmol/L 136 - 145 01/23 Specimen Type: PLASMA No comment entered. Ordering Provider: AILIN CHESTER Report Released Date/Time: Jan 23, 2023 02:00 PM Reporting Lab: [address] Performing Lab: [address] [place] [address] ([facility]) BASIC METABOLIC PANEL+MG POTASSIUM [MOLES/VOLU ME] IN SERUM OR PLASMA 5.1 mmol/L 3.5 - 5.1 01/23 Specimen Type: PLASMA No comment entered. Ordering Provider: AILIN CHESTER Report Released Date/Time: Jan 23, 2023 02:00 PM Reporting Lab: [place] [id number] Performing Lab: [address] ([facility]) BASIC METABOLIC PANEL+MG CHLORIDE [MOLES/VOLU ME] IN SERUM OR PLASMA 109 mmol/L 98 - 107 01/23 H Specimen Type: PLASMA No comment entered. Ordering Provider: AILIN CHESTER Report Released Date/Time: Jan 23, 2023 02:00 PM Reporting Lab: [address] Performing Lab: [address] ([facility]) BASIC METABOLIC PANEL+MG CARBON DIOXIDE, TOTAL [MOLES/VOLU ME] IN SERUM OR PLASMA 21 mmol/L 22 - 29 01/23 L Specimen Type: PLASMA No comment entered. Ordering Provider: AILIN CHESTER Report Released Date/Time: Jan 23, 2023 02:00 PM Reporting Lab: [place] [address] Performing Lab: [address] [place] [address] ([facility]) BASIC METABOLIC PANEL+MG CALCIUM [MASS/VOLUM E] IN SERUM OR PLASMA 9.4 mg/dL 8.4 - 10.2 01/23 Specimen Type: PLASMA No comment entered. Ordering Provider: AILIN CHESTER Report Released Date/Time: Jan 23, 2023 02:00 PM Reporting Lab: [facility] [address] Performing Lab: [place] [address] [place] ([facility]) BASIC METABOLIC PANEL+MG MAGNESIUM [MASS/VOLUM E] IN SERUM OR PLASMA 1.7 mg/dL 1.6 - 2.6 01/23 Specimen Type: PLASMA No comment entered. Ordering Provider: AILIN CHESTER Report Released Date/Time: Jan 23, 2023 02:00 PM Reporting Lab: [facility] [address] Performing Lab: [facility] [address] [place] ([facility]) BASIC METABOLIC PANEL+MG ANION GAP IN SERUM OR PLASMA 10 mmol/L 5 - 15 01/23 Specimen Type: PLASMA No comment entered. Ordering Provider: AILIN CHESTER Report Released Date/Time: Jan 23, 2023 02:00 PM Reporting Lab: [facility] [address] Performing Lab: [facility] [address] [place] ([facility]) BASIC METABOLIC PANEL+MG GLOMERULAR FILTRATION RATE/1.73 SQ M.PREDICTED [VOLUME RATE/AREA] IN SERUM, PLASMA OR BLOOD BY CREATININE- BASED FORMULA (CKD-EPI 2020) 61 60 01/23 Specimen Type: PLASMA No comment entered. Ordering Provider: AILIN CHESTER Report Released Date/Time: Jan 23, 2023 02:00 PM Reporting Lab: [facility] [address] Performing Lab: [facility] [address] [place] ([facility]) MICROALBU MIN/CREAT ININE RATIO URINE CREATININE [MASS/VOLUM E] IN URINE 132.8 mg/dL 58.0 - 161.0 11/23 Specimen Type: URINE No comment entered. Ordering Provider: AILIN CHESTER Report Released Date/Time: Nov 23, 2022 11:58 AM Reporting Lab: [facility] [address] Performing Lab: [facility] [address] [place] ([facility]) MICROALBU MIN/CREAT ININE RATIO URINE MICROALBUMI N/CREATININ E [MASS RATIO] IN URINE 28.0 mg/g{c reat} 11/23 Specimen Type: URINE No comment entered. Ordering Provider: AILIN CHESTER Report Released Date/Time: Nov 23, 2022 11:58 AM Reporting Lab: [facility] [address] Performing Lab: [address] ([facility]) MICROALBU MIN/CREAT ININE RATIO URINE MICROALBUMI N [MASS/VOLUM E] IN URINE 37.2 mg/L 11/23 H Specimen Type: URINE No comment entered. Ordering Provider: AILIN CHESTER Report Released Date/Time: Nov 23, 2022 11:58 AM Reporting Lab: [place] [address] Performing Lab: [address] ([facility]) LIPID PANEL,NON -FASTING CHOLESTEROL [MASS/VOLUM E] IN SERUM OR PLASMA 130 mg/dL 11/23 Specimen Type: PLASMA No comment entered. Ordering Provider: AILIN CHESTER Report Released Date/Time: Nov 23, 2022 11:58 AM Reporting Lab: [place] [address] Performing Lab: [address] ([facility]) LIPID PANEL,NON -FASTING CHOLESTEROL IN HDL [MASS/VOLUM E] IN SERUM OR PLASMA 39 mg/dL 11/23 L Specimen Type: PLASMA No comment entered. Ordering Provider: AILIN CHESTER Report Released Date/Time: Nov 23, 2022 11:58 AM Reporting Lab: [place] [address] Performing Lab: [address] ([facility]) LIPID PANEL,NON -FASTING CHOLESTEROL IN LDL [MASS/VOLUM E] IN SERUM OR PLASMA BY CALCULATION 73 mg/dL 11/23 Specimen Type: PLASMA No comment entered. Ordering Provider: AILIN CHESTER Report Released Date/Time: Nov 23, 2022 11:58 AM Reporting Lab: [place] [address] Performing Lab: [address] ([facility]) LIPID PANEL,NON -FASTING CHOLESTEROL IN VLDL [MASS/VOLUM E] IN SERUM OR PLASMA BY CALCULATION 18 mg/dL 11/23 Specimen Type: PLASMA No comment entered. Ordering Provider: AILIN CHESTER Report Released Date/Time: Nov 23, 2022 11:58 AM Reporting Lab: [facility] [address] Performing Lab: [facility] [address] [place] ([facility]) LIPID PANEL,NON -FASTING CHOLESTEROL NON HDL [MASS/VOLUM E] IN SERUM OR PLASMA 91 mg/dL 11/23 Specimen Type: PLASMA No comment entered. Ordering Provider: AILIN CHESTER Report Released Date/Time: Nov 23, 2022 11:58 AM Reporting Lab: [place] [phone] Performing Lab: [place] [address] [place] [address] ([facility]) LIPID PANEL,NON -FASTING TRIGLYCERID E [MASS/VOLUM E] IN SERUM OR PLASMA 92 mg/dL 11/23 Specimen Type: PLASMA No comment entered. Ordering Provider: AILIN CHESTER Report Released Date/Time: Nov 23, 2022 11:58 AM Reporting Lab: [facility] [address] Performing Lab: [address] ([facility]) CBC LEUKOCYTES [#/VOLUME] IN BLOOD BY AUTOMATED COUNT 10.80 10*3/u L 4.0 - 11.0 11/23 Specimen Type: BLOOD No comment entered. Ordering Provider: AILIN CHESTER Report Released Date/Time: Nov 23, 2022 11:58 AM Reporting Lab: [facility] [address] Performing Lab: [place] [address] [place] [address] ([facility]) CBC ERYTHROCYTE S [#/VOLUME] IN BLOOD BY AUTOMATED COUNT 3.87 10*6/u L 4.6 - 6.2 11/23 L Specimen Type: BLOOD No comment entered. Ordering Provider: AILIN CHESTER Report Released Date/Time: Nov 23, 2022 11:58 AM Reporting Lab: [place] [phone] Performing Lab: [address] ([facility]) CBC HEMOGLOBIN [MASS/VOLUM E] IN BLOOD 12.1 g/dL 13.5 - 17.9 11/23 L Specimen Type: BLOOD No comment entered. Ordering Provider: AILIN CHESTER Report Released Date/Time: Nov 23, 2022 11:58 AM Reporting Lab: [place] [address] Performing Lab: [address] ([facility]) CBC HEMATOCRIT [VOLUME FRACTION] OF BLOOD BY AUTOMATED COUNT 37.5 41 - 54 11/23 L Specimen Type: BLOOD No comment entered. Ordering Provider: AILIN CHESTER Report Released Date/Time: Nov 23, 2022 11:58 AM Reporting Lab: [place] [address] Performing Lab: [address] ([facility]) CBC MCV [ENTITIC VOLUME] BY AUTOMATED COUNT 96.9 fL 80 - 100 11/23 Specimen Type: BLOOD No comment entered. Ordering Provider: AILIN CHESTER Report Released Date/Time: Nov 23, 2022 11:58 AM Reporting Lab: [place] [address] Performing Lab: [address] ([facility]) CBC MCH [ENTITIC MASS] BY AUTOMATED COUNT 31.3 pg 27 - 33 11/23 Specimen Type: BLOOD No comment entered. Ordering Provider: AILIN CHESTER Report Released Date/Time: Nov 23, 2022 11:58 AM Reporting Lab: [address] Performing Lab: [address] ([facility]) CBC MCHC [MASS/VOLUM E] BY AUTOMATED COUNT 32.3 g/dL 32.0 - 37.5 11/23 Specimen Type: BLOOD No comment entered. Ordering Provider: AILIN CHESTER Report Released Date/Time: Nov 23, 2022 11:58 AM Reporting Lab: [address] Performing Lab: [address] ([facility]) CBC PLATELETS [#/VOLUME] IN BLOOD BY AUTOMATED COUNT 293 10*3/u L 150 - 400 11/23 Specimen Type: BLOOD No comment entered. Ordering Provider: AILIN CHESTER Report Released Date/Time: Nov 23, 2022 11:58 AM Reporting Lab: [facility] [address] Performing Lab: [facility] [address] [place] ([facility]) CBC PLATELET MEAN VOLUME [ENTITIC VOLUME] IN BLOOD BY AUTOMATED COUNT 10.3 fL 7.4 - 10.4 11/23 Specimen Type: BLOOD No comment entered. Ordering Provider: AILIN CHESTER Report Released Date/Time: Nov 23, 2022 11:58 AM Reporting Lab: [address] Performing Lab: [place] [address] [place] ([facility]) CBC ERYTHROCYTE DISTRIBUTIO N WIDTH [RATIO] BY AUTOMATED COUNT 13.2 11.5 - 14.5 11/23 Specimen Type: BLOOD No comment entered. Ordering Provider: AILIN CHESTER Report Released Date/Time: Nov 23, 2022 11:58 AM Reporting Lab: [address] Performing Lab: [place] [phone] [place] ([facility]) TSH W/REFLEX TO FREE T4 THYROTROPIN [UNITS/VOLU ME] IN SERUM OR PLASMA 4.59 u[IU]/ mL 0.35 - 4.94 11/23 Specimen Type: PLASMA No comment entered. Ordering Provider: AILIN CHESTER Report Released Date/Time: Nov 23, 2022 11:58 AM Reporting Lab: [facility] [address] Performing Lab: [address] [place] ([facility]) HEMOGLOBI N A1C HEMOGLOBIN A1C/HEMOGLO BIN.TOTAL [...] 2022 11:58 AM Reporting Lab: [place] [phone] Performing Lab: [facility] [address] [place] ([facility]) COMPREHEN SIVE METABOLIC PANEL+MG CREATININE [MASS/VOLUM E] IN SERUM OR PLASMA 1.2 mg/dL 0.7 - 1.2 11/23 Specimen Type: PLASMA No comment entered. Ordering Provider: AILIN CHESTER Report Released Date/Time: Nov 23, 2022 11:58 AM Reporting Lab: [facility] [address] Performing Lab: [facility] [address] [place] ([facility]) COMPREHEN SIVE METABOLIC PANEL+MG UREA NITROGEN [MASS/VOLUM E] IN SERUM OR PLASMA 34 mg/dL 8 - 26 11/23 H Specimen Type: PLASMA No comment entered. Ordering Provider: AILIN CHESTER Report Released Date/Time: Nov 23, 2022 11:58 AM Reporting Lab: [facility] [address] Performing Lab: [facility] [address] [place] ([facility]) COMPREHEN SIVE METABOLIC PANEL+MG GLUCOSE [MASS/VOLUM E] IN SERUM OR PLASMA 54 mg/dL 70 - 100 11/23 L Specimen Type: PLASMA No comment entered. Ordering Provider: AILIN CHESTER Report Released Date/Time: Nov 23, 2022 11:58 AM Reporting Lab: [facility] [address] Performing Lab: [facility] [address] [place] ([facility]) COMPREHEN SIVE METABOLIC PANEL+MG SODIUM [MOLES/VOLU ME] IN SERUM OR PLASMA 143 mmol/L 136 - 145 11/23 Specimen Type: PLASMA No comment entered. Ordering Provider: AILIN CHESTER Report Released Date/Time: Nov 23, 2022 11:58 AM Reporting Lab: [facility] [address] Performing Lab: [facility] [address] [place] ([facility]) COMPREHEN SIVE METABOLIC PANEL+MG POTASSIUM [MOLES/VOLU ME] IN SERUM OR PLASMA 4.4 mmol/L 3.5 - 5.1 11/23 Specimen Type: PLASMA No comment entered. Ordering Provider: AILIN CHESTER Report Released Date/Time: Nov 23, 2022 11:58 AM Reporting Lab: [facility] [address] Performing Lab: [facility] [address] [place] ([facility]) COMPREHEN SIVE METABOLIC PANEL+MG CHLORIDE [MOLES/VOLU ME] IN SERUM OR PLASMA 107 mmol/L 98 - 107 11/23 Specimen Type: PLASMA No comment entered. Ordering Provider: AILIN CHESTER Report Released Date/Time: Nov 23, 2022 11:58 AM Reporting Lab: [facility] [address] Performing Lab: [facility] [address] [place] ([facility]) COMPREHEN SIVE METABOLIC PANEL+MG CARBON DIOXIDE, TOTAL [MOLES/VOLU ME] IN SERUM OR PLASMA 23 mmol/L 22 - 29 11/23 Specimen Type: PLASMA No comment entered. Ordering Provider: AILIN CHESTER Report Released Date/Time: Nov 23, 2022 11:58 AM Reporting Lab: [facility] [address] Performing Lab: [facility] [address] [place] ([facility]) COMPREHEN SIVE METABOLIC PANEL+MG CALCIUM [MASS/VOLUM E] IN SERUM OR PLASMA 9.7 mg/dL 8.4 - 10.2 11/23 Specimen Type: PLASMA No comment entered. Ordering Provider: AILIN CHESTER Report Released Date/Time: Nov 23, 2022 11:58 AM Reporting Lab: [facility] [address] Performing Lab: [facility] [address] [place] ([facility]) COMPREHEN SIVE METABOLIC PANEL+MG PROTEIN [MASS/VOLUM E] IN SERUM OR PLASMA 7.2 g/dL 6.0 - 8.3 11/23 Specimen Type: PLASMA No comment entered. Ordering Provider: AILIN CHESTER Report Released Date/Time: Nov 23, 2022 11:58 AM Reporting Lab: [facility] [address] Performing Lab: [facility] [address] [place] ([facility]) COMPREHEN SIVE METABOLIC PANEL+MG ALBUMIN [MASS/VOLUM E] IN SERUM OR PLASMA 4.1 g/dL 3.5 - 5.2 11/23 Specimen Type: PLASMA No comment entered. Ordering Provider: AILIN CHESTER Report Released Date/Time: Nov 23, 2022 11:58 AM Reporting Lab: [facility] [address] Performing Lab: [facility] [address] [place] ([facility]) COMPREHEN SIVE METABOLIC PANEL+MG BILIRUBIN.T OTAL [MASS/VOLUM E] IN SERUM OR PLASMA 0.5 mg/dL 0.2 - 1.2 11/23 Specimen Type: PLASMA No comment entered. Ordering Provider: AILIN CHESTER Report Released Date/Time: Nov 23, 2022 11:58 AM Reporting Lab: [facility] [address] Performing Lab: [place] [address] [place] ([facility]) COMPREHEN SIVE METABOLIC PANEL+MG MAGNESIUM [MASS/VOLUM E] IN SERUM OR PLASMA 1.4 mg/dL 1.6 - 2.6 11/23 L Specimen Type: PLASMA No comment entered. Ordering Provider: AILIN CHESTER Report Released Date/Time: Nov 23, 2022 11:58 AM Reporting Lab: [facility] [address] Performing Lab: [facility] [address] [place] ([facility]) COMPREHEN SIVE METABOLIC PANEL+MG ANION GAP IN SERUM OR PLASMA 13 mmol/L 5 - 15 11/23 Specimen Type: PLASMA No comment entered. Ordering Provider: AILIN CHESTER Report Released Date/Time: Nov 23, 2022 11:58 AM Reporting Lab: [facility] [address] Performing Lab: [facility] [phone] [place] [address] ([facility]) COMPREHEN SIVE METABOLIC PANEL+MG ALKALINE PHOSPHATASE [ENZYMATIC ACTIVITY/VO LUME] IN SERUM OR PLASMA 87 U/L 40 - 150 11/23 Specimen Type: PLASMA No comment entered. Ordering Provider: AILIN CHESTER Report Released Date/Time: Nov 23, 2022 11:58 AM Reporting Lab: [place] [id number] Performing Lab: [facility] [id number] [place] ([facility]) COMPREHEN SIVE METABOLIC PANEL+MG ALANINE AMINOTRANSF ERASE [ENZYMATIC ACTIVITY/VO LUME] IN SERUM OR PLASMA 28 U/L 11/23 Specimen Type: PLASMA No comment entered. Ordering Provider: AILIN CHESTER Report Released Date/Time: Nov 23, 2022 11:58 AM Reporting Lab: [facility] [id number] Performing Lab: [facility] [id number] [place] ([facility]) COMPREHEN SIVE METABOLIC PANEL+MG ASPARTATE AMINOTRANSF ERASE [ENZYMATIC ACTIVITY/VO LUME] IN SERUM OR PLASMA 33 U/L 11/23 Specimen Type: PLASMA No comment entered. Ordering Provider: AILIN CHESTER Report Released Date/Time: Nov 23, 2022 11:58 AM Reporting Lab: [facility] [id number] Performing Lab: [facility] [id number] [place] ([facility]) COMPREHEN SIVE METABOLIC PANEL+MG GLOMERULAR FILTRATION RATE/1.73 SQ M.PREDICTED [VOLUME RATE/AREA] IN SERUM, PLASMA OR BLOOD BY CREATININE- BASED FORMULA (CKD-EPI 2020) 61 11/23 Specimen Type: PLASMA No comment entered. Ordering Provider: AILIN CHESTER Report Released Date/Time: Nov 23, 2022 11:58 AM Reporting Lab: [facility] [id number] Performing Lab: [facility] [phone] [place] ([facility]) Vital Signs Combined list of inpatient and outpatient Vital Signs from Department of Defense and Veterans Affairs, ranging from 12 months to all on record, depending upon the facility. Vital Sign Value Date Comments Source SYSTOLIC BLOOD PRESSURE 116 11/08/2023 09:55:16 [place] ([facility]) DIASTOLIC BLOOD PRESSURE 69 11/08/2023 09:55:16 [place] ([facility]) PULSE OXIMETRY 97 11/08/2023 09:55:16 [place] ([facility]) WEIGHT 166.1 11/08/2023 09:55:16 [place] ([facility]) BMI 25kg/m2 11/08/2023 09:55:16 [place] ([facility]) PAIN 0 11/08/2023 09:55:16 [place] ([facility] HEIGHT 69 11/08/2023 09:55:16 [place] ([facility]) TEMPERATURE 98.7 11/08/2023 09:55:16 [place] ([facility]) PULSE 72 11/08/2023 09:55:16 [place] ([facility]) RESPIRATION 16 11/08/2023 09:55:16 [place] ([facility]) Encounters Combined list of: 1) Encounters from Department of [facility] Affairs facilities going back up to thelast 18 months. 2) Encounters from the Department of [facility] facilities going back up to 280 months. Location Location Details Encounter Type Encounter Number Reason For Visit Attending Provider ADM Date DC Date Status Disposition Source [facility] Outpatient Encounter [id number] 08/21 [facility] Outpatient Encounter [id number] 09/20 [facility] Outpatient Encounter [id number] 11/11 [facility] Outpatient Encounter [id number] ZARI POWER 11/16 [facility] Outpatient Encounter [id number] 11/21 [facility] ([facility]) OFFICE O/P EST MOD 30-39 MIN [id number] Diagnos is: ICD-10- CM Z00.00 Encntr for general adult medical exam w/o abnorma l finding s
CANDELARIO CHESTER 11/23 [place] ([facility]) [facility]) GAIT TRAINING THERAPY [id number] Diagnos is: ICD-10- CM R26.89 Other abnorma lities of gait and mobilit y
OMAYRA JAMESON V 11/23 [place] ([facility]) [facility] Outpatient Encounter [id number] SA RA Sandra JAMESON 12/11 [place] [facility] [place] [facility] Outpatient Encounter [id number] 12/25 [place] [facility] [place] [facility] Outpatient Encounter [id number] SA TRINO RA R 12/28 [place] [facility] [place] [facility] Outpatient Encounter [id number] 01/05 [place] [facility] [place] [facility] Outpatient Encounter [id number] 01/11 [place] [facility] [place] [facility] Outpatient Encounter [id number] 01/16 [place] [facility] ([facility]) OFFICE O/P EST HI 40-54 MIN [id number] Diagnos is: ICD-10- CM I50.9 Heart failure , unspeci fied
[facility]ARIO [facility]STER [facility] [place] [facility] Outpatient Encounter [id number] Marcus POTTS I 01/24 [place] [facility] [place] [facility] Outpatient Encounter [id number] Danica TORRE 02/05 [place] [facility] [place] [facility] Outpatient Encounter [id number] 02/09 [place] [facility] [place] [facility] Outpatient Encounter [id number] Danica TORRE 02/09 [place] [facility] [place] [facility] Outpatient Encounter [id number] 02/14 [place] [facility] [place] [facility] Outpatient Encounter [id number] 02/15 [place] [facility] [place] [facility] Outpatient Encounter [id number] 02/19 [place] [facility] [place] [facility] Outpatient Encounter [id number] 02/20 [place] [facility] [place] [facility] Outpatient Encounter [id number] 02/20 [place] [facility] [place] [facility] Outpatient Encounter [id number] 02/20 [place] [facility] [place] [facility] Outpatient Encounter [id number] 02/20 [place] [facility] [place] [facility] Outpatient Encounter [id number] 02/21 [place] [facility] [place] [facility] QNHP OL DIG ASSMT&MGMT 5-10 [id number] Diagnos is: ICD-10- CM E11.9 Type 2 diabete s mellitu s without complic ations< br/> HARDER,SIVA LY 02/22 [place] [facility]) PRO PHONE CALL 11-20 MIN [id number] Diagnos is: ICD-10- CM I50.9 Heart failure , unspeci fied
JERMAINE ALCANTAR 02/23 [place] ([facility]) [place] [facility] Outpatient Encounter [id number] 02/26 [place] [facility] [place] [facility] Outpatient [facility]counter [id number] 03/01 [place] [facility] [place] [facility] Outpatient Encounter [id number] 03/05 [place] [facility] [place] [facility] Outpatient Encounter [id number] SA RA Sandra JAMESON 03/09 [place] [facility] [place] [facility] Outpatient Encounter [id number] 03/14 [place] [facility] [place] [facility] Outpatient Encounter [id number] SA RA Sandra JAMESON 04/12 [facility] [place] [facility] Outpatient Encounter [id number] SA JAMARI JAMESON R 04/16 [facility] [place] [facility] Outpatient Encounter [id number] SA JAMARI JAMESON R 05/01 [facility] [place] [facility] Outpatient Encounter [id number] 07/11 [facility] [place] [facility] Outpatient Encounter [id number] [facility] [place] [facility] Outpatient Encounter [id number] 07/12 [facility] PRO PHONE CALL 5-10 MIN [id number] Diagnos is: ICD-10- CM 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
VIV BARFIELD 07/19 [facility] HEARING AID REPAIR/MOD IFYING [id number] Diagnos is: ICD-10- CM 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
CARY CORCORAN 08/09 [facility] HEARING AID FITTING/CH ECKING [id number] Diagnos is: ICD-10- CM 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
Sy MAKI 09/17 [facility] Outpatient Encounter [id number] 10/17 [facility] ([facility]) OFFICE O/P EST HI 40 MIN [id number] Diagnos is: ICD-10- CM E11.9 Type 2 diabete s mellitu s without complic ations< br/> CANDELARIO CHESTER [facility] [place] ([facility]) PT EVAL MOD COMPLEX 30 MIN [id number] Diagnos is: ICD-10- CM Z74.09 Other reduced mobilit y
OMAYRA JAMESON NTER V 12/17 [place] [facility] [place] [facility] Outpatient Encounter [id number] 01/03 [facility] [place] [facility] Outpatient Encounter [id number] 01[facility]09 [facility] [place] [facility] WHEELCHAIR MNGMENT TRAINING [id number] Diagnos is: ICD-10- CM R53.1 Weaknes s
ANDERS EATON R 01/29 [facility] [place] [facility] Outpatient Encounter [id number] 01/30 [facility] [place] [facility] HEARING AID REPAIR/MOD IFYING [id number] Diagnos is: ICD-10- CM Z46.1 Encount er for fitting and adjustm ent of hearing aid<br/ > SUZY BLACK AEL F 02/01 [facility] Social History Combined list of available smoking, tobacco, and other social history from Department of Defense and Veterans Affairs facilities. Social History Type Response Date Comment [facility] e Tobacco smoking status [facility] VA-TOBACCO FORMER USER 11/08/2023 [place] ([facility]) History of tobacco use VA-TOBACCO QUIT 1 5 YRS OR MORE 11/08/2023 [place] ([facility]) History of tobacco use VA-TOBACCO QUIT 1 5 YRS OR MORE 11/23/2022 [place] ([facility]) History of tobacco use VA-TOBACCO FORMER USER 11/29/2021 [facility]) History of tobacco use VA-TOBACCO FORMER USER 10/21/2020 [facility])
--- OUTSIDE RECORDS SUMMARY | 2024-02-04 13:10 | XMS_ITS | Encounter Summary ---
Author Name [place] Address [address] [place] [address] Care Team Providers Care Slab Puller Name Role Phone JIMENEZ CHESTER Primary Care [...] Cherry's Name Patient's Relationship to Policy Cherry [facility] (WNR) MEDICARE ADVANTAGE [facility] (WNR) May 14, 2020 [id number] [phone] PITER CASAS ERD PATIENT Selected Encounter This section includes the information on record at [place] for the Encounter. Date/Time Encounter Type Encounter Description Reason Provider Source September 18, 2023 01:00 PM HEARING AID FITTING/CHECKIN G AUDIOLOGY ICD-10-CM H90.3 Sensorineural hearing loss, bilateral RADHA MAKI IHEmerald Encounter Template Text not used by [place] Assessments - Encounter Diagnoses This section includes the primary and secondary diagnoses documented for the Encounter. Date/Time Primary/Secondary Diagnosis Diagnosis Name Provider Source September 18, 2023 04:52 PM PRIMARY Sensorineural hearing loss, bilateral RADHA MAKI [facility] September 18, 2023 04:52 PM SECONDARY Encounter for fitting and adjustment of hearing aid RADHA MAKI [facility] Plan of Treatment: Future Appointments (+ 6 months) and Future Tests (+/- 45 days) The Plan of Treatment section includes future care activities for the patient from all [place] [facility]. This section includes future appointments and future orders which are active, pending or scheduled. Future Appointments This section includes appointments that were scheduled to occur 6 months from the date of the Encounter, up to a maximum of 20 appointments. The data comes from all [place] treatment facilities. Appointment Date/Time Appointment Type Appointme nt Facility Name Nov 08, 2023 10:00 AM AMBULATORY - MEDICINE [facility] ([facility]) Dec 18, 2023 10:45 AM AMBULATORY - REHAB MEDICIN [place] ([facility]) Jan 30, 2024 10:00 AM AMBULATORY - REHAB MEDICIN [facility] Feb 02, 2024 10:15 AM AMBULATORY - SURGERY [facility] Encounter Notes: All associated encounter notes [...] AID SERVICE Diagnosis: Bilateral Sensorineural Hearing Loss [place] was accompanied today by his , Shellie. The following hearing aid problem/s were presented: [place] and his are typically seen through [facility]. They reported that the eligibility criteria recently changed and now they have to drive here to [place] for appointments. This is understandably frustrating. [place] would like help pairing his remote control and multi-carrie to his aids. Shellie noted that the manual only provided instructions for battery-powered aids. Reason for visit: Therapeutic hearing aid service Otoscopy: Both Ears: Free of excessive cerumen Hearing Aid Check: - Visual inspection revealed aids in good condition. - Biologic listening check indicated good sound quality from aids. Hearing aids right/left; Issued 12/07/2020 ([facility]): Make: Resound Model: One 61 miniRIC-R Style: RICs Serial #s: [id number] Acoustics: 2MP, silicone micro molds Action: - Aids cleaned and checked. - Paired remote control and multi-carrie to hearing aids. given brief tutorial per his request, as he has already used both of these devices before. Verified functionality. - [place] and informed that we offer video and phone call appointments for future concerns. They will keep this in mind. Plan: - [place] will contact this clinic if questions or problems arise. - is in agreement with this plan. /es/ MADI MAKI Rate Clerk Signed: 09/18/2023 16:53 MADI MAKI [facility]
--- OUTSIDE RECORDS SUMMARY | 2024-02-04 13:10 | XMS_ITS | Encounter Summary ---
Author Name [place] Address [address] [place] [address] Care Team Providers Care Tie Fastener Name Role Phone JIMENEZ CHESTER Primary Care [...] Cherry's Name Patient's Relationship to Policy Cherry [facility] (WNR) MEDICARE ADVANTAGE [facility] (WNR) May 14, 2020 [id number] [phone] PITER CASAS ERD PATIENT Selected Encounter This section includes the information on record at [place] for the Encounter. Date/Time Encounter Type Encounter [...] care activities for the patient from all [place] [facility]. This section includes future appointments and future orders which are active, pending or scheduled. Future Appointments This section includes appointments that were scheduled to occur 6 months from the date of the Encounter, up to a maximum of 20 appointments. The data comes from all [place] treatment facilities. Appointment Date/Time Appointment Type Appointme nt Facility Name Jan 30, 2024 10:00 AM AMBULATORY - REHAB MEDICIN E [facility] Feb 02, 2024 10:15 AM AMBULATORY - SURGERY [facility] Active, Pending, and Scheduled Orders This section includes a listing of several types of active, pending, and scheduled orders, including clinic medications orders, diagnostic test orders, procedure orders and consult orders; where the start date of the order is 45 days before the date of the Encounter or 45 days after the date of theEncounter. The data comes from all [facility]. Test Date/Time Test Type Test Details Facility Name Dec 18, 2023 12:55 PM Consult Order REHAB OUTP T POWER MOBILITY PM&R PT Cons Desktop Support Specialist's [facility] ([facility]) Social History: Smoking Status (Most current) and Tobacco Use (All prior to encounter date) This section includes the most current, and the historical, smoking and tobacco- related health factors from the [place] facility where the Encounter took place. Current Smoking Status This section includes the most current smoking, or tobacco-related health factor, from the [place] facility where the Encounter took place. Date/Time Current Smoking Status Comment Facil ity Nov 08, 2023 10:00 AM VA-TOBACCO FORMER USER [place] ([facility]) Tobacco Use History This section includes a history of the smoking, or tobacco-related health factors, that were collected on or before the date of the Encounter. The data comes from the [place] facility where the Encounter took place. Date/Time Smoking Status/Tobacco Use Comment F acility Nov 08, 2023 10:00 AM VA-TOBACCO QUIT 15 YRS OR MORE [place] ([facility]) Nov 23, 2022 11:00 AM VA-TOBACCO FORMER USER [place] ([facility]) Nov 23, 2022 11:00 AM VA-TOBACCO QUIT 15 YRS OR MORE [place] ([facility]) Nov 29, 2021 10:00 AM VA-TOBACCO FORMER USER [place] ([facility]) Nov 29, 2021 10:00 AM VA-TOBACCO QUIT 15 YRS OR MORE [place] ([facility]) Oct 21, 2020 10:30 AM VA-TOBACCO FORMER USER [place] ([facility]) Oct 21, 2020 10:30 AM VA-TOBACCO QUIT 15 YRS OR MORE [place] ([facility]) Encounter Notes: All associated encounter notes [...] the followin. CAD - Coronary Artery Disease ([facility] [id number]) 2. Diabetes Mellitus Type 2 ([facility] [id number]) 3. HTN - Hypertension ([facility] [id number]) 4. Peripheral neuropathy due to type 2 diabetes mellitus 5. Long-term current use of insulin 6. Hyperlipidemia ([facility] [id number]) 7. CHF - Congestive Heart Failure ([facility] [id number]) 8. Exposure to potentially hazardous substance ([facility] [id number]) - Entered through [facility] TAM Documentation Initiative 9. Hypothyroidism ([facility] [id number]) 10. History of amputation of right leg through tibia and fibula Weight/Height for DME purposes: 166.1 lb [75.34 kg] (11/08/2023 09:55) 69 in [175.3 cm] (11/08/2023 09:55) Chief Concern: Pt is a 83 year old [place] who presents to PT for functional mobility [...] CAD, CHF, quadruple bypass in 2001, multiple RI's, A- fib Home Environment: Type of home: [...] provided from Medicare and 4WW provided from [place] Pain: General aches and pains throughout the [...] PRESENTATION: evolving PLAN: Functional mobility assessment complete; fiction writer will place Rehab Outpatient Power Mobility Consult for further review. Patient Education on Treatment Plan: PT role, POC, rehab expectations. Patient indicated readiness to learn, verbalizes understanding, agreement and satisfaction with the treatment plan. Denies further questions. /riccardo/ CINTHIA JAMESON Physical Therapist Signed: 12/18/2023 12:53 CINTHIA JAMESON ([facility])
--- OUTSIDE RECORDS SUMMARY | 2024-02-04 13:10 | XMS_ITS | Encounter Summary ---
Author Name [place] Organization [place] Address [address] [place] [address] Care Team Providers Care Welder Gas Automatic Name Role Phone JIMENEZ CHESTER Primary Care [...] Cherry's Name Patient's Relationship to Policy Cherry [facility] (WNR) MEDICARE ADVANTAGE [facility] (WNR) May 14, 2020 [id number] [phone] PITER CASAS ERD PATIENT Selected Encounter This section includes the information on record at [place] for the Encounter. Date/Time Encounter Type Encounter Description Reason Pro vider Source Jan 04, 2024 03:16 PM Outpatient Encounter COMMUNITY CARE CONSULT IHE Encounter Template Text not used by [place] Plan of Treatment: Future Appointments (+ 6 [...] 20 appointments. The data comes from all [place] treatment facilities. Appointment Date/Time Appointment Type Appointme nt Facility Name Jan 30, 2024 10:00 AM AMBULATORY - REHAB MEDICIN [facility] Feb 02, 2024 10:15 AM AMBULATORY - SURGERY [facility] Active, Pending, and Scheduled Orders This section includes a listing of several types of active, pending, and scheduled orders, including clinic medications orders, diagnostic test orders, procedure orders and consult orders; where the start date of the order is 45 days before the date of the Encounter or 45 days after the date of theEncounter. The data comes from all [place] treatment [facility]. Test Date/Time Test Type Test Details Facility Name Dec 18, 2023 12:55 PM Consult Order REHAB OUTP T POWER MOBILITY PM&R PT Cons Corrugated Box Machine Operator's [facility] ([facility]) Encounter Notes: All associated encounter notes This section contains the clinical notes associated to the Encounter. Date/Time Encounter Note(s) Provider Source Jan 04, 2024 03:16 PM PHARMACY NOTE: LOCAL TITLE: PHARMACY NON [place] CARE MEDICATIONS STANDARD TITLE: PHARMACY NOTE DATE OF NOTE: JAN 04, 2024@15:16 ENTRY DATE: JAN 04, 2024@15:17:04 AUTHOR: BONNIE GONZALEZ EXP COSIGNER: URGENCY: STATUS: COMPLETED [facility] RECEIVED electronic prescription(s) (eRX(s)) from NON-VA Provider: Dr. Tatyana Nguyen Date eRX received: Dec Outside (NON-VA) provider not authorized to write for prescription(s) through [place] pharmacy. Prescription request REDIRECTED via FAX to one of the following for review: [X][facility] (Dual) Care [ ]Other: eRx Prescription Information: 1. [id number] insulin aspart (U-100) TATYANA NGUYEN MA 01/04/24 eRx Qty: 30 eRx # of Refills: 11 SIG: Give 16 units three times daily with meals + [...] units, 300-349: 8 units, 350-399: 10 units, > 400: 12 units and call MD. Up to 60 units daily /riccardo/ BONNIE GONZALEZ PHARMACIST Signed: 01/04/2024 15:18 [facility]IE [facility]ALEZ [facility]
--- OUTSIDE RECORDS SUMMARY | 2024-02-04 13:10 | XMS_ITS | Encounter Summary ---
Author Name [place] Address [address] [place] [address] Care Team Providers Care Edge Bander Hand Name Role Phone JIMENEZ CHESTER Primary Care [...] Cherry's Name Patient's Relationship to Policy Cherry [facility] (WNR) MEDICARE ADVANTAGE [facility] (WNR) May 14, 2020 [id number] [phone] PITER CASAS ERD PATIENT Selected Encounter This section includes the information on record at [place] for the Encounter. Date/Time Encounter Type Encounter Description Reason Pro vider Source Jan 31, 2024 10:16 AM Outpatient Encounter WHEELCHAIR & ADVAN MOBILITY IHE Encounter Template Text not used by [place] Plan of Treatment: Future Appointments (+ 6 [...] 20 appointments. The data comes from all [place] treatment facilities. Appointment Date/Time Appointment Type Appointme nt Facility Name Feb 02, 2024 10:15 AM AMBULATORY - SURGERY [facility] Active, Pending, and Scheduled Orders This section includes a listing of several types of active, pending, and scheduled orders, including clinic medications orders, diagnostic test orders, procedure orders and consult orders; where the start date of the order is 45 days before the date of the Encounter or 45 days after the date of theEncounter. The data comes from all [place] treatment [facility]. Test Date/Time Test Type Test Details Facility Name Dec 18, 2023 12:55 PM Consult Order REHAB OUTP T POWER MOBILITY PM&R PT Cons Machine Setter Sheet [employer] [facility] ([facility]) Encounter Notes: All associated encounter notes This section contains the clinical notes associated to the Encounter. Date/Time Encounter Note(s) Provider Source Jan 31, 2024 10:16 AM REPORT OF CONTACT: LOCAL TITLE: PATIENT CONTACT NOTE STANDARD TITLE: REPORT OF CONTACT DATE OF NOTE: JAN 31, 2024@10:16 ENTRY DATE: JAN 31, 2024@10:16:22 AUTHOR: ANABELLA JAMIL EXP COSIGNER: URGENCY: STATUS: COMPLETED PATIENT CONTACT NOTE Has ADDENDA Patient contact Name of : YESSENIAYUKIBibi CARRILLO Name/Relationship of Contact if other than : Shellie/Spouse Date & Time of Contact: Jan@10:16 Type of Contact: Telephone Reason for Contact: Received a call from Shellie, opal spouse. She would like to speak with you regarding questions on the Lift for veterans wheelchair. They are looking for authorization for the side entrance where the can drive the wheelchair into the van & stay in the chair. Please contact Shellie at [phone] /es/ ANABELLA JAMIL Advanced MSA Signed: 01/31/2024 10:18 Receipt Acknowledged By: 01/31/2024 10:21 /es/ Ronald Franks OTR/L, ATP OCCUPATIONAL THERAPIST 01/31/2024 ADDENDUM STATUS: COMPLETED Call returned. Discussed that hitch or interior mount lifts would be approved through [place] prosthetics. If ramped entry is desired, it would go through the safe passenger clinic. Although given his service connections, it does not appear he would meet approval for the 450[address] and this was discussed. Vet/ would be responsible for self-purchasing a side or rear ramped entry vehicle. She noted understanding. /riccardo/ KASIA Rai/Yousuf, ATP OCCUPATIONAL THERAPIST Signed: 01/31/2024 10:23 ANABELLA JAMIL [facility]
--- OUTSIDE RECORDS SUMMARY | 2024-02-04 13:10 | XMS_ITS | Encounter Summary ---
Author Name [place] Address [address] [place] [address] Care Team Providers Care Assistant Child Care Teacher Name Role Phone JIMENEZ CHESTER Primary Care [...] Cherry's Name Patient's Relationship to Policy Cherry [facility] (WNR) MEDICARE ADVANTAGE [facility] (WNR) May 14, 2020 [id number] [phone] PITER CASAS ERD PATIENT Selected Encounter This section includes the information on record at [place] for the Encounter. Date/Time Encounter Type Encounter Description Reason Provider Source Nov 08, 2023 10:00 AM OFFICE O/P EST HI 40 MIN PRIMARY CARE/MEDICINE ICD-10-CM E11.9 Type 2 diabetes mellitus without complications JIMENEZ CHESTER [facility] Encounter Template Text not used by [place] Assessments - Encounter Diagnoses This section includes the primary and secondary diagnoses documented for the Encounter. Date/Time Primary/Secondary Diagnosis Diagnosis Name Provider Source Nov 09, 2023 07:19 AM PRIMARY Type 2 diabetes mellitus without complications JIMENEZ CHESTER ([facility]) Nov 09, 2023 07:19 AM SECONDARY Athscl heart disease of [place] coronary artery w/o ang pctrs HENRIKJIMENEZ WOODARD ([facility]) Nov 09, 2023 07:19 AM SECONDARY Encntr for general adult medical exam w/o abnormal findings HENRIKJIMENEZ WOODARD ([facility]) Nov 09, 2023 07:19 AM SECONDARY Essential (primary) hypertension JIMENEZ CHESTER ([facility]) Nov 09, 2023 07:19 AM SECONDARY Heart failure, unspecified JIMENEZ CHESTER ([facility]) Nov 09, 2023 07:19 AM SECONDARY Hyperlipidemia, unspecified JIMENEZ CHESTER ([facility]) Nov 09, 2023 07:19 AM SECONDARY Hypothyroidism, unspecified JIMENEZ CHESTER ([facility]) Nov 09, 2023 07:19 AM SECONDARY FPC (current) use of insulin JIMENEZ CHESTER ([facility]) Plan of Treatment: Future Appointments (+ 6 months) and Future Tests (+/- 45 days) The Plan of Treatment section includes future care activities for the patient from all [place] [facility]. This section includes future appointments and future orders which are active, pending or scheduled. Future Appointments This section includes appointments that were scheduled to occur 6 months from the date of the Encounter, up to a maximum of 20 appointments. The data comes from all [facility] facilities. Appointment Date/Time Appointment Type Appointme nt Facility Name Dec 18, 2023 10:45 AM AMBULATORY - REHAB MEDICIN E [place] ([facility]) Jan 30, 2024 10:00 AM AMBULATORY - REHAB [facility] Feb 02, 2024 10:15 AM AMBULATORY - SURGERY [facility] Active, Pending, and Scheduled Orders This section includes a listing of several types of active, pending, and scheduled orders, including clinic medications orders, diagnostic test orders, procedure orders and consult orders; where the start date of the order is 45 days before the date of the Encounter or 45 days after the date of theEncounter. The data comes from all [facility]. Test Date/Time Test Type Test Details Facility Name Dec 18, 2023 12:55 PM Consult Order REHAB OUTP T POWER MOBILITY PM&R PT Cons Senior Packaging Engineer's Choice [place] ([facility]) Vital Signs: All taken on the encounter date This section contains inpatient and outpatient Vital Signs collected on the date of the Encounter. Date/Time Temperature Pulse Blood Pressure Respiratory Rate SP02 Pain Height Weight Body Mass Index Source Nov 08, 2023 09:55 AM 98.7 72 116/69 16 97 0 69 166.1 25 [facility] ([facility]) Social History: Smoking Status (Most current) and Tobacco Use (All prior to encounter date) This section includes the most current, and the historical, smoking and tobacco- related health factors from the [place] facility where the Encounter took place. Current Smoking Status This section includes the most current smoking, or tobacco-related health factor, from the [place] facility where the Encounter took place. Date/Time Current Smoking Status Comment Facil ity Nov 08, 2023 10:00 AM VA-TOBACCO QUIT 15 YRS OR MORE [facility] ([facility]) Tobacco Use History This section includes a history of the smoking, or tobacco-related health factors, that were collected on or before the date of the Encounter. The data comes from the [place] facility where the Encounter took place. Date/Time Smoking Status/Tobacco Use Comment F acility Nov 08, 2023 10:00 AM VA-TOBACCO QUIT 15 YRS OR MORE [facility] ([facility]) Nov 23, 2022 11:00 AM VA-TOBACCO FORMER USER [facility] ([facility]) Nov 23, 2022 11:00 AM VA-TOBACCO QUIT 15 YRS OR MORE [facility] [facility] ([facility]) Nov 29, 2021 10:00 AM VA-TOBACCO FORMER USER [facility] ([facility]) Nov 29, 2021 10:00 AM VA-TOBACCO QUIT 15 YRS OR MORE [facility] ([facility]) Oct 21, 2020 10:30 AM VA-TOBACCO FORMER USER [facility] ([facility]) Oct 21, 2020 10:30 AM VA-TOBACCO QUIT 15 YRS OR MORE [facility] [place] ([facility]) Encounter Notes: All associated encounter notes [...] year-old MALE here for his annual visit. Daniel was last seen on 11/23/2022 for his annual visit. Since that time he was followed up on 01/23/2023 after hospital discharge for hyperkalemia and decompensated heart failure. Since that time Rory has had care in the community wound [...] point. He is working with provider at [facility]. Rory has had a right lower extremity below [...] be receiving his insulin aspart through the [place]. Co-managed: [facility] - Melquiades Man MD - 11/06/2023 [...] Rare 4. Illicit drugs: none 5. Employment: [employer] work 39 years 6. Service: [email or web address] Allergies: NKDA Physical Exam: Temp: 98.7 F [...] with Reduced EF - Follow-up planned at [facility] (private insurance) - LDL goal < 70, [...] COVID-19 (PFIZER), MRNA, LNP-S, * 2 07/24/2020 [facility]* COVID-19 (PFIZER), MRNA, LNP-S, * 1 07/03/2020 [facility]* INFLUENZA, HIGH-DOSE, QUADRIVALE* 1 04/05/2022 [facility] PNEUMOCOCCAL CONJUGATE PCV 13 01/21/2015 [facility]* <C> PNEUMOCOCCAL POLYSACCHARIDE PPV23 02/09/2011 [facility]* PNEUMOCOCCAL POLYSACCHARIDE PPV23 03/06/2006 [facility]* TDAP 01/21/2021 [facility]* <C> ZOSTER RECOMBINANT 2 01/21/2021 [facility]* ZOSTER RECOMBINANT 1 10/21/2020 [facility]* RTC in 1 year annual visit CPRS [...] were also reviewed/updated for accuracy. Allergies/ADR from [facility] may not display in CPRS. Use JLV MRT5 - Allergies/ADRs FACILITY ALLERGY/ADR -------- No Remote Allergy/ADR Data available for this patient [facility] [facility] No Known Allergies Active and Recently Outpatient [...] TWO TIMES A DAY 28 Total Medications /riccardo/ JIMENEZ CHESTER MD PHYSICIAN Signed: 11/09/2023 07:20 JIMENEZ CHESTER ([facility]) Nov 08, 2023 10:11 AM ADVANCE DIRECTIVE: LOCAL TITLE: AD NOTIFICATION AND SCREENING STANDARD TITLE: ADVANCE DIRECTIVE DATE OF NOTE: NOV 08, 2023@10:11 ENTRY DATE: NOV 08, 2023@10:12:18 AUTHOR: ZARI ANTHONY COSIGNER: URGENCY: STATUS: COMPLETED ADVANCE DIRECTIVE NOTIFICATION: Patient was given written notification of the following rights: 1. Accept or refuse any medical treatment. 2. Complete a durable power of employment law attorney for health care. 3. Complete a living will. ADVANCE DIRECTIVE SCREENING: Does patient have an Advance Directive? The patient does not have an Advance Directive. The patient wishes to create an Advance Directive for health care. The patient has no questions about completing the Advance Directive forms. /riccardo/ ZARI ANTHONY LPN Signed: 11/08/2023 10:12 ZARI ANTHONY ([facility]) Nov 08, 2023 10:01 AM PRIMARY CARE NOTE: LOCAL TITLE: [facility] PROGRESS NOTE-[place] STANDARD TITLE: PRIMARY CARE NOTE DATE OF [...] Not at all Suicide Screen: C-SSRS Screening [place] Suicide Severity Rating Scale (C-SSRS) screener 1. [...] ulcers, or a wound from a medical insurance coding specialist or Patient is bed-confined or a wheelchair-user or Patient requires assistance to transfer/change position No, Skin Screen is Negative Home Abuse/Violence Screen Is your home free of abuse and violence? Yes MOVE! Program Screen Body Mass Index (BMI)= 24.6 [place]: Collection DT Specimen Test Name Result Units Ref Range 11/23/2022 12:09 BLOOD !! HEMOGLOBIN A1C 7.4 H % 4.0 - 6.0 !! Indicates COMMENTS AVAILABLE...Refer to Interim Lab Report. [place] Hgb A1C: No data available [place] Hgb A1C: No data available Point of Care Hgb A1C: POC HGB A1C____ Outpatient Nutrition Screen Body Mass Index (BMI)= 24.6 [place]: Collection DT Specimen Test Name Result Units Ref Range 11/23/2022 12:09 BLOOD !! HEMOGLOBIN A1C 7.4 H % 4.0 - 6.0 !! Indicates COMMENTS AVAILABLE...Refer to Interim Lab Report. [place] Hgb A1C: No data available [place] Hgb A1C: No data available Point of [...] Abnormal( is being followed by PCP through [facility] and the [facility]. 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 /riccardo/ ZARI ANTHONY LPN Signed: 11/08/2023 10:10 ZARI ANTHONY ([facility])
--- OUTSIDE RECORDS SUMMARY | 2024-02-04 13:10 | XMS_ITS | Encounter Summary ---
Author Name [place] Organization [place] Address [address] [place] [address] Care Team Providers Care Magistrate Judge Name Role Phone JIMENEZ CHESTER Primary Care [...] Cherry's Name Patient's Relationship to Policy [facility] MEDICARE ADVANTAGE [facility] (WNR) May 14, 2020 [id number] [phone] PITER CASAS ERD PATIENT Selected Encounter This section includes the information on record at [place] for the Encounter. Date/Time Encounter Type Encounter Description Reason Provider Source Jan 30, 2024 10:00 AM WHEELCHAIR MNGMENT TRAINING WHEELCHAIR & ADVAN MOBILITY ICD-10-CM R53.1 Weakness SUSANNA EATON [facility] Encounter Template Text not used by [place] Assessments - Encounter Diagnoses This section includes the primary and secondary diagnoses documented for the Encounter. Date/Time Primary/Secondary Diagnosis Diagnosis Name Provider Source Jan 31, 2024 02:29 PM PRIMARY Weakness SUSANNA EATON [facility] Plan of Treatment: Future Appointments (+ 6 months) and Future Tests (+/- 45 days) The Plan of Treatment section includes future care activities for the patient from all [place] treatmentfacilities. This section includes future appointments and future orders which are active, pending or scheduled. Future Appointments This section includes appointments that were scheduled to occur 6 months from the date of the Encounter, up to a maximum of 20 appointments. The data comes from all [place] treatment facilities. Appointment Date/Time Appointment Type Appointme nt Facility Name Feb 02, 2024 10:15 AM AMBULATORY - SURGERY [facility] Active, Pending, and Scheduled Orders This section includes a listing of several types of active, pending, and scheduled orders, including clinic medications orders, diagnostic test orders, procedure orders and consult orders; where the start date of the order is 45 days before the date of the Encounter or 45 days after the date of theEncounter. The data comes from all [place] treatment facilities. Test Date/Time Test Type Test Details Facility Name Dec 18, 2023 12:55 PM Consult Order REHAB OUTP T POWER MOBILITY PM&R PT Cons [employer] [facility] ([facility]) Encounter Notes: All associated encounter notes This section contains the clinical notes associated to the Encounter. Date/Time Encounter Note(s) Provider Source Jan 31, 2024 02:16 PM OCCUPATIONAL THERA PY NOTE: LOCAL TITLE: OT-PROGRESS NOTE STANDARD TITLE: OCCUPATIONAL THERAPY NOTE DATE OF NOTE: JAN 31, 2024@14:16 ENTRY DATE: JAN 31, 2024@14:16:23 AUTHOR: SUSANNA EATON COSIGNER: URGENCY: STATUS: COMPLETED OCCUPATONAL THERAPY ADVANCED MOBILITY ASSESSMENT Referring provider: CINTHIA JAMESON V Diagnosis for which patient is referred to OT: Weakness Consult request: power mobility Precautions: R BKA Encounters: -OT Evaluation - Low Complexity (1): 20m -Wheelchair management (4): 60m ASSESSMENT: Cesar is a 83 yo male referred to custom seating and mobility clinic for assessment of: power mobility. The lives with his in a single family home with 1 step to enter and all cares met on the main floor. He transfers with Mod I, is dependent on a standard MWC for mobility, and had a recent buttocks pressure injury. The and his would like to obtain a power device to assist with increased independent in and around his home. Discussed current barriers including storage in-home (1 step) and transport limitations (vehicle tongue weight ~100-350#). A midwheel drive PWC with power tilt to assist with pressure reduction and pelvic positioning is recommended at this time. The would also benefit from power elevate for transfers and functional reach. The and his noted understanding that accessible transport could be used for the PWC and agreed to ramped entry on their home. Although, they would like to explore self- purchasing a new vehicle that would be able to accommodate an interior vehicle lift for the PWC. OT provided resources for Jake (lift apple solutions consultant) and Mukul brown (lift street railway line installer) to discuss options prior to purchasing a new vehicle. OT will hold on any orders until a return call is received from the veterans . Direct number provided. ALL ITEMS ON HOLD until return call is received from vet/: -Item: Tagitotto (16x18, power tilt and elevate, Hayder Comfort SPP 2 cushion) -Vendor: [employer] -Quote #: CPQ - [id number] -Estimated weight: 391.88# -Vehicle lift -Modular ramp (1 step, garage preferred, front door secondary) PLAN: Hold on above orders until return call is received from veterans . SHORT TERM GOAL: 1. Vet will complete trial of power mobility demonstrating safety with use. - MET 2. Vet will complete final fitting, trial, and issuance of power mobility in- clinic demonstrating improved posturing, pain reduction, pressure reduction, and verbalize understanding of safety and proper maintenance. EDUCATION ON TREATMENT PLAN: Patient indicates readiness to learn, verbalizes understanding, agreement and satisfaction with the treatment plan. Denies further questions. CURRENT MEDICAL HISTORY: CAD - Coronary Artery Disease (SCT 90346Gaummiyr Mellitus Type 2 (SCT 56617130) HTN - Hypertension (SCT 13101409) Peripheral neuropathy due to type 2 diabetes mellitus (SCT 4617055819238) Long-term current use of insulin (SCT 71Hyperlipidemia (SCT 21138255) CHF - Congestive Heart Failure (SCT 4234Exposure to potentially hazardous substance (SCT 497860737465854) Hypothyroidism (SCT 96637601) History of amputation of right leg through tibia and fibula ([facility] [id number]) SUBJECTIVE: Identified goal(s) with wheelchair use: -Take stress off of (May) with caregiver propulsion -M[employer]uel [employer] -Medical appts. -Go out to eat -Sisters live nearby -Use in yard (discussed appropriate use and safety concerns with use on terrain) Home Environment: Type of home: Single story [...] out to eat. Current Equipment (note if [place] issued or not): MWC provided from Medicare and 4WW provided from [facility] accessibility: -All cares met on main floor -Front door (primary) -Unheated 3 car garage PRIOR LEVEL OF INDEPENDENCE: Vet/ reports: -Transferring: Mod I - present for stability as needed -Mobility: -In-home: MWC use primarily in-home w/ self-propulsion -Community: MWC with caregiver propulsion -Falls: 1 fall (slide off of bed after STR stay) -Driving: Dependent -2022 Osprey XT5 - only drives currently Seating and mobility equipment: -Invacare Tracer SX5 25.5 handrim to handrim total width (Medicare obtained) -~2 foam cushion, elements basic foam backrest PAIN ASSESSMENT: Pain Present: Yes If pain present intensity: Very very little 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 Session completed trial of midwheel drive PWC with the demonstrating safety with operation in and around clinic. Discussed barriers with storage in home (step to enter) and transportation (vehicle tongue weight limiting lift options). The and his note that they plan to explore purchasing of a new vehicle that could accommodate a lift and make it easier for the to enter/exit. Reviewed that a minivan would provide the most options and likely would be the most accessible option shelter. Recommended they look at vehicles for self-purchase. Once they narrow down to 2-3 vehicles, recommended they contact the primary lift apple solutions consultant ([employer]) and lift street railway line installer ([employer]) to confirm there would be no issues with a vehicle lift installation. Numbers provided for both, OTs direct number, and prosthetics. We reviewed the order form for the new PWC and this will be placed on hold until a vehicle is determined. Power tilt and elevate are currently recommended. If weight savings is needed, OT would recommended tilt over elevate. They noted agreement. Measurements: -Height: 69 in [175.3 cm] (11/08/2023 09:55) -Weight: 166.1 lb [75.34 kg] (11/08/2023 09:55) Hip width = __16.25___ Widest part of the hips including adipose tissue (body fat). Take measurement in-front of the individual. Chest width = _14.5____ Axilla (armpit) to axilla (armpit). Take measurement in-front of the individual. Shoulder width = __19.5___ Middle deltoid (middle of shoulder) to middle deltoid (middle of shoulder). Take measurement in-front of the individual. Upper leg length = __20.5___ Back of buttock to popliteal fossa (back of knee). Take measurement at the side of the individual. Lower leg length = __18___ Bottom of desired footwear to popliteal fossa (back of knee). Take measurement at the side of the individual. Elbow height = __7.5___ Top of sitting surface (bottom of upper leg) to bottom of elbow bent to 90 degrees. Take measurement at the side of the individual. Axilla height = __19___ Top of sitting surface (or bottom of buttocks) to axilla (armpit). Take measurement behind the individual. Shoulder height = _25.5____ Top of sitting surface (or bottom of buttocks) to acromion process (top of shoulder). Take measurement behind the individual. Top of head height = ___35__ Top of sitting surface (or bottom of buttocks) to the crown (top) of the head. Take measurement behind the individual. Current wheelchair measurements: Wheelchair width = __18___ Width of the seat sling. Inside armrest to inside armrest. Hip clearance = __1___ Space between the armrest/side guards and the hips on both sides added together. Wheelchair depth = __18___ Depth of the seat sling. Popliteal clearance = __2___ Space between the front of the cushion and the back of the knee. Seated Posture: -Obliquity: no noted concerns -Rotation: no noted concerns -Pelvic Tilt: mild posterior, correctable -Scoliosis: no noted concerns COGNITION: -A&O x4 -Intact to conversation Sensation and Skin Integrity: - notes bed sores Feb-Mar 2023 to buttocks red and just rashy, swollen and bumpy. Wore mepilex and received wound cares. describes as coccyx/sacrum injury. Davey Scale for Predicting Pressure Sore Risk: Sensory Perception: ___Completed limited (1) ___Very limited (2) _x__Slightly limited (3) ___No impairment (4) Moisture: ___Constantly moist (1) ___Often moist (2) _x__Occasionally moist (3) - depends for urinary incontinence ___Rarely moist (4) Activity: ___Bedfast (1) ___Chairfast (2) _x__Walks occasionally (3) ___Walks frequently (4) Mobility: ___Completely immobile (1) ___Very limited (2) ___Slightly limited (3) _x__No limitations (4) Nutrition: ___Very poor (1) ___Probably inadequate (2) ___Adequate (3) _x__Excellent (4) Friction and Shear: ___Problem (1) _x__Potential problem (2) ___No apparent problem (3) Davey Score Scale: ___Very high risk (6-9) ___High risk (10-12) ___Moderate risk (13-14) ___Mild risk (15-18) _x__No risk (19-23) Source: Carmen Mariscal & Estephanie Terry, Copyrighted 1987. Reprinted with permission. All rights reserved. /riccardo/ KASIA Rai/ALEAH To OCCUPATIONAL THERAPIST Signed: 01/31/2024 14:29 SUSANNA EATON [facility]
--- OUTSIDE RECORDS SUMMARY | 2024-02-04 13:10 | XMS_ITS | Encounter Summary ---
Author Name [facility] [place] Address [address] [place] [address] Care Team Providers Care Pe Teacher Name Role Phone JIMENEZ CHESTER Primary [...] Cherry's Name Patient's Relationship to Policy Cherry [facility] (WNR) MEDICARE ADVANTAGE [facility] (WNR) May 14, 2020 [id number] [phone] PITER CASAS ERD PATIENT Selected Encounter This [...] PRIMARY Sensorineural hearing loss, bilateral LUDWIN CORCORAN [facility] Aug 10, 2023 11:22 AM SECONDARY Encounter for fitting and adjustment of hearing aid [facility] CORCORAN [facility] Plan of Treatment: Future Appointments (+ 6 months) and Future Tests (+/- 45 days) The Plan of Treatment section includes future care activities for the patient [facility] [place] [facility] This section includes future appointments and future orders which are active, pending or scheduled. Future Appointments This section includes appointments that were scheduled to occur 6 months from the date of the Encounter, up to a maximum of 20 appointments. The data comes from all [facility] facilities. Appointment Date/Time Appointment Type Appointme nt Facility Name September 18, 2023 01:00 PM AMBULATORY - SURGERY [facility] Nov 08, 2023 10:00 AM AMBULATORY - MEDICINE [facility] ([facility]) Dec 18, 2023 10:45 AM AM[facility]ATORY - [facility] [place] ([facility]) Jan 30, 2024 10:00 AM AMBULATORY - REHAB MEDIC[facility] Feb 02, 2024 10:15 AM AMBULATORY - SURGERY [facility] Encounter Notes: All associated encounter [...] CLEARED VENTS Problem will require repair by network support administrator and left aid was mailed to network support administrator today. Also sent micro cary in for repair Device can be programmed/ mailed to once repaired. Ordered replacement remote control 2-mail to was counseled using a curriculum on the cleaning,care and use of hearing aids. Plan: Vet will contact call center as needed for follow up Patient is in agreement with this plan. Transit Mixer Operator:MAIL AID AND DEVICES TO RECEIVED /riccardo/ MICK CORCORAN AUDIO TECH Signed: 08/10/2023 11:22 08/16/2023 ADDENDUM STATUS: COMPLETED RECEIVED, CERTIFIED AND ISSUED RESOUND REMOTE CONTROL 2 DEVICE MAILED TO AT THE ADDRESS ON FILE /riccardo/ MICK CORCORAN AUDIO TECH Signed: 08/16/2023 16:07 08/16/2023 ADDENDUM STATUS: COMPLETED MAILING REPAIRED HEARING AIDS TO THE ADDRESS ON FILE /riccardo/ MICK Rand [facility] DISKER Signed: 08/16/2023 17:33 08/17/2023 ADDENDUM STATUS: COMPLETED RECEIVED AND CERTIFIED REPAIRED RESOUND MICRO CARY DEVICE MAILED TO AT THE ADDRESS ON FILE /riccardo/ MICK CORCORAN AUDIO TECH Signed: 08/17/2023 15:12 MICK CORCORAN [facility]
--- OUTSIDE RECORDS SUMMARY | 2024-02-04 13:10 | XMS_ITS | Encounter Summary ---
Author Name [place] Address [address] [place] [address] Care Team Providers Care Records Coordinator Name Role Phone JIMENEZ CHESTER Primary Care [...] [facility] (WNR) MEDICARE ADVANTAGE [facility] (WNR) May 14, 2020 [id number] [phone] PITER CASAS ERD PATIENT Selected Encounter This [...] 09, 2023 08:41 PM AMBULATORY - NONE [facility] Apr 12, 2023 11:56 [facility] Apr 16, 2023 09:26 PM [facility] May 01, 2023 06:28 PM [facility] Aug 10, 2023 10:45 AM AMBULATORY - SURGERY [facility] Lab Results: +/- 30 days of the encounter This section includes the Chemistry and Hematology Lab Results on record with [place] for the patient. Radiology Reports and Pathology Reports are provided separately, in subsequent sections. Lab Results This section contains the Chemistry/Hematology Results that were resulted 30 days before or 30 daysafter the date of the Encounter. Date/Time Source Result Type Result - Unit Interpretation Reference Range Comment Jan 23, 2023 02:14 PM [place] ([facility]) BNP Specimen Type: PLASMA No comment entered. Ordering Provider: JIMENEZ CHESTER Report Released Date/Time: Jan 23, 2023 02:00 PM Reporting Lab: [facility] [id number] Performing Lab: [facility] [id number] BNP 1549 pg/mL H <99 Jan 23, 2023 02:14 PM [place] ([facility]) BASIC METABOLIC PANEL+MG Specimen Type: PLASMA No comment entered. Ordering Provider: JIMENEZ CHESTER Report Released Date/Time: Jan 23, 2023 02:00 PM Reporting Lab: [facility] [id number] Performing Lab: [facility] [id number] CREATININE 1.2 mg/dL 0.7-1.2 UREA NITROGEN 35 [...] YELITZA CALVIN EXP COSIGNER: URGENCY: STATUS: COMPLETED [facility] RECEIVED faxed prescription(s) from NON- VA Provider: Brenda Hart Date RX received: Feb Prescription request REDIRECTED via FAX to [facility] to submit a Prosthetic consult eRx Prescription Information: Heel Protection Pad Skil-Care ultrasoft one size fits most SIG: Wear daily on both feet to protect heels Quantity:2 Refills: 1 /riccardo/ YELITZA CALVIN, PharmD CLINICAL PHARMACIST Signed: 02/20/2023 14:33 Receipt Acknowledged By: 02/21/2023 09:12 /riccardo/ Araceli Cottrell RN, BSN, [facility] director of slot operations Interior Assemblies Installer YELITZA CALVIN [facility]
--- OUTSIDE RECORDS SUMMARY | 2024-02-04 13:10 | XMS_ITS | Encounter Summary ---
Author Name [place] Organization [place] Address [address] [place] [address] Care Team Providers Care Veterinary Technologist Name Role Phone JIMENEZ CHESTER Primary Care [...] Cherry's Name Patient's Relationship to Policy Cherry [facility] (WNR) MEDICARE ADVANTAGE [facility] (WNR) May 14, 2020 [id number] [phone] PITER CASAS ERD PATIENT Selected Encounter This section includes the information on record at [place] for the Encounter. Date/Time Encounter Type Encounter [...] 20 appointments. The data comes from all [place] treatment facilities. Appointment Date/Time Appointment Type Appointme nt Facility Name Feb 23, 2023 11:00 AM AMBULATORY - MEDICINE [place] ([facility]) Mar 09, 2023 08:41 PM AMBULATORY - NONE [facility] Apr 12, 2023 11:56 PM [facility] Apr 16, 2023 09:26 PM [facility] - [facility]ONE [facility] May 01, 2023 06:28 PM [facility] Aug 10, 2023 10:45 AM AMBULATORY - SURGERY [facility] Lab Results: +/- 30 days of the encounter This section includes the Chemistry and Hematology Lab Results on record with [place] for the patient. Radiology Reports and Pathology Reports are provided separately, in subsequent sections. Lab Results This section contains the Chemistry/Hematology Results that were resulted 30 days before or 30 daysafter the date of the Encounter. Date/Time Source Result Type Result - Unit Interpretation Reference Range Comment Jan 23, 2023 02:14 PM [place] ([facility]) BNP Specimen Type: PLASMA No comment entered. Ordering Provider: JIMENEZ CHESTER Report Released Date/Time: Jan 23, 2023 02:00 PM Reporting Lab: [facility] [id number] Performing Lab: [facility] [id number] BNP 1549 pg/mL H <99 Jan 23, 2023 02:14 PM [place] ([facility]) BASIC METABOLIC PANEL+MG Specimen Type: PLASMA No comment entered. Ordering Provider: JIMENEZ CHESTER Report Released Date/Time: Jan 23, 2023 02:00 PM Reporting Lab: [facility] [phone] Performing Lab: [facility] [address] CREATININE 1.2 mg/dL 0.7-1.2 UREA NITROGEN 35 [...] COSIGNER: URGENCY: STATUS: COMPLETED Received prescriptions at [facility] CG are not a co-managed item. Forwarding to pact team to see if qualifies and to contact him to talk with him about it. /riccardo/ DANNY MORTON LPN Co-Customer Service Advocate Signed: 02/20/2023 14:50 Receipt Acknowledged By: 02/21/2023 08:30 /es/ JACKY GARVEY PHARMD, [facility] CLINICAL HADOOP JAVA DEVELOPER 02/22/2023 13:45 /es/ Aamir Hazel RN [facility] --- Original Document --- 02/20/23 PHARMACY NON [place] CARE MEDICATIONS: [facility] RECEIVED electronic prescription(s) (eRX(s))from NON- [facility] Provider: KATHY FORTE Date eRX received: Feb The outside (NON-VA) provider is not authorized to write for prescription(s) through [place] pharmacy at this time. 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 /riccardo/ Aamir Hazel RN [facility] Signed: 02/22/2023 13:45 DANNY MORTON [facility] Feb 20, 2023 11:11 AM PHARMACY NOTE: LOCAL TITLE: PHARMACY NON [facility] CARE MEDICATIONS STANDARD TITLE: PHARMACY NOTE DATE OF NOTE: FEB 20, 2023@11:11 ENTRY DATE: FEB 20, 2023@11:11:45 AUTHOR: YELITZA CALVIN EXP COSIGNER: URGENCY: STATUS: COMPLETED PHARMACY NON [facility] CARE MEDICATIONS Has ADDENDA [facility] RECEIVED electronic prescription(s) (eRX(s))from NON- VA Provider: KATHY FORTE Date eRX received: Feb The outside (NON-VA) provider is not authorized to write for prescription(s) through [place] pharmacy at this time. 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 Forwarding to pact team to see if qualifies and to contact him to talk with him about it. /nallely MORTON LPN Co-Customer Service Advocate Signed: 02/20/2023 14:50 Receipt Acknowledged By: 02/21/2023 08:30 /riccardo/ JACKY GARVEY, SARAD, [facility] CLINICAL HADOOP JAVA DEVELOPER 02/22/2023 13:45 /riccardo/ Aamir Hazel RN [facility] 02/22/2023 ADDENDUM STATUS: COMPLETED See Feb 22 Pharmacotherapy for more information. /riccardo/ Aamir Hazel RN [facility] Signed: 02/22/2023 13:45 YELITZA CALVIN [facility]
--- OUTSIDE RECORDS SUMMARY | 2024-02-04 13:11 | XMS_ITS | Data Portability ---
Author Organization [facility] Dominick gy, [facility] Address [address] [place] [address] Care Team Providers Care Audit Associate Name Role Phone VOTELPARVEZ Primary Care Provider [...] Address Organization Details Last Updated DateTime 11/28/2023 24669.78 g 23 kg/m2 177.8 cm [facility] 11/28/2023 14:16:54 Social History Question Answer Notes LastModified by Organizat ion Details LastModified Time Tobacco Smoking Status Former Smoker [facility] Ryan winn [facility] 11/28/2023 14:22:10 What Is Your Level [...] Age of this Age Resolved Age Notes LastModified by Organization Details LastModified Time Sister Family history of cancer of colon [place] Not available 11/28/2023 14:20:31 Sister Family history of breast cancer [place] Not available 11/28/2023 14:20:36 Notes:skin cancer-dad Medical History Condition Response High Blood Pressure Y Kidney Stones N Diabetes Y High Cholesterol Y Immunizations Vaccine Type Date Status Provider Name and Address Organization Details Recorded Time Influenza, adjuvanted, trivalent, PF 01/10/2018 completed Bennett winn [facility] 11/28/2023 14:17:02 Influenza, adjuvanted, trivalent, PF 02/12/2020 completed Bennett winn [facility] 11/28/2023 14:17:02 Influenza, high-dose, quadrivalent, PF 03/09/2021 completed Bennett winn [facility] 11/28/2023 14:17:02 Influenza, high-dose, quadrivalent, PF 04/05/2022 completed [facility] null, [facility] 11/28/2023 14:17:02 Influenza, adjuvanted, quadrivalent, PF 03/05/2023 completed [facility] Mg-Valer o null, [facility] 11/28/2023 14:17:02 COVID-19, mRNA, LNP-S, PF, 100 mcg/0.5mL dose or 50 mcg/0.25mL dose 03/09/2021 completed [facility] null, [facility] 11/28/2023 14:17:02 COVID-19, mRNA, LNP-S, PF, 30 mcg/0.3 mL dose 07/03/2020 [facility], [facility] 11/28/2023 14:17:02 COVID-19, mRNA, LNP-S, PF, 30 mcg/0.3 mL dose 07/24/2020 [facility], [facility] 11/28/2023 14:17:02 COVID-19, mRNA, LNP-S, bivalent, PF, 50 mcg/0.5 mL or 25mcg/0.25 mL dose 03/29/2022 completed [facility] Mg-Valer o null, [facility] 11/28/2023 14:17:02 RSV, bivalent, protein subunit RSVpreF, diluent reconstituted, 0.5 mL, PF 03/05/2023 [facility], [facility] 11/28/2023 14:17:02 COVID-19, mRNA, LNP-S, PF, estrella-sucrose, 30 mcg/0.3 mL 03/05/2023 [facility], [facility] 11/28/2023 14:17:02 pneumococcal polysaccharide PPV23 02/09/2011 [facility], [facility] 11/28/2023 14:17:02 pneumococcal polysaccharide PPV23 03/06/2006 [facility], [facility] 11/28/2023 14:17:02 influenza, unspecified formulation 03/15/2017 [facility], [facility] 11/28/2023 14:17:02 Pneumococcal conjugate PCV 13 01/21/2015 completed [facility] Mg-Valer o null, [facility] 11/28/2023 14:17:02 Influenza, high-dose, trivalent, PF 01/21/2015 [facility], [facility] 11/28/2023 14:17:02 Influenza, high-dose, trivalent, PF 03/07/2019 [facility], [facility] 11/28/2023 14:17:02 Influenza, split virus, trivalent, preservative 01/30/2013 completed [facility] Mg-Valer o null, [facility] 11/28/2023 14:17:02 Influenza, split virus, trivalent, preservative 02/26/2003 completed [facility] Mg-Valer o null, [facility] 11/28/2023 14:17:02 Influenza, split virus, trivalent, preservative 03/01/2004 [facility], [facility] 11/28/2023 14:17:02 Influenza, split virus, trivalent, preservative 03/05/2007 [facility], [facility] 11/28/2023 14:17:02 Influenza, split virus, trivalent, preservative 03/06/2006 completed [facility] null, [facility] 11/28/2023 14:17:02 Influenza, split virus, trivalent, preservative 03/09/2005 [facility], [facility] 11/28/2023 14:17:03 Influenza, split virus, trivalent, preservative 03/09/2008 [facility], [facility] 11/28/2023 14:17:03 Influenza, split virus, trivalent, preservative 03/13/2012 completed [facility] Mg-Valer o null, [facility] 11/28/2023 14:17:03 Influenza, split virus, trivalent, preservative 04/28/2010 completed [facility] Mg-Valer o null, [facility] 11/28/2023 14:17:03 Influenza, split virus, trivalent, PF 02/09/2011 completed [facility] Mg-Valer o null, [facility] 11/28/2023 14:17:03 Influenza, split virus, trivalent, PF 04/05/2009 completed [facility] Mg-Valer o null, [facility] 11/28/2023 14:17:03 Td (adult), 5 Lf tetanus toxoid, preservative free, adsorbed 03/06/2006 [facility], [facility] 11/28/2023 14:17:03 Past Encounters Encounter ID Performer Location Encounter Start Date Encounter Closed Date Diagnosis/Indication Diagnosis SNOMED-CT Code Diagnosis ICD10 Code [id number] Roberto Carballo MD [facility] [address] [place] [address] 11/28/2023 13:46:09 12/04/2023 16:43:22 Phimosis 096547773 N47.1 Health Concerns Section Related Observation LastModified by Organization Detai ls LastModified Time None Recorded Concern Status LastModified by Organization Details LastModified Time None Recorded Advance Directives Directive None Recorded Payers Encounter Date Sequence Insurance Name Policy Number Policy Cherry Covered Member ID Cherry Member ID Guarantor Name 11/28/2023 1 [place] [employer] [place] [employer] - MEDICARE COST [id number] Rosalina Bowers [id number] Rosalina Bowers Notes Date Note Type Note [...] (03/05/07) - 1.40 (04/28/10) Roberto Carballo MD [address] [place] [address],[address], [place], [address], [facility] 11/30/2023 11:21:51
--- OUTSIDE RECORDS SUMMARY | 2024-02-04 13:11 | XMS_ITS | Clinical Summary ---
Author Organization [facility] Address [address] [place] [address] Care Team Providers Care Urban Gardening Specialist Name Role Phone Elsewhere, Pcp Primary Care Provider Unavailabl e Source Comments Patient records contain information from all sites at [facility]. For routine questions regarding patient records, call [phone] during business hours, M-F 8:00 AM - 5:00 PM Central Time. Record requests for emergency care only can be directed to [phone] at any time.[facility] Allergies No known active [...] guaze. Assessment & Plan (06/15/2023 4:18 PM ABRASIVE GRADER HELPER): The wound bed is clean. A thin layer of silver stat will be applied with a gauze. Change daily. 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 Left Heel: Area continues to improve. Wound measures [id number]. Edges well defined, attached and 100% re-epithelialized tissues. Granulation tissue is observed along the lining of the edges under the bed of slough/eschar. Eschar is soft but not mushy. Wound bed is still approx 95% or more of slough/eschar. Scant drainage with dressing change. Resident tolerated cares without any concerns. New wound orders as follows: Assessment & Plan (06/15/2023 4:10 PM ABRASIVE GRADER HELPER): 1: Gently cleanse area with NS. Pat dry. 2. Skin prep to gonsalo-wound. 3. Santyl to wound bed only. 4. Place gauze over wound. 5. cover with island dressing. 6. Change dressing daily. He may be discharged to home with home nursing for wound care . Assessment & Plan (06/01/2023 2:33 PM ABRASIVE GRADER HELPER): Continue wound care and have PARING MACHINE OPERATOR evaluate in one week. Dementia 05/20/2023 Overview (05/24/2023): No documented dementia or behaviors Assessment & Plan (05/24/2023 5:57 PM ABRASIVE GRADER HELPER): He has low hearing which could contribute to him not understanding Assessment & Plan (05/20/2023 4:20 PM ABRASIVE GRADER HELPER): Although initial BIMS testing scored 14, he has had episodes of what seems to be sundowning with strong suspicion of underlying dementia. Will have OT further evaluate. Hyperglycemia 04/22/2023 Overview (04/22/2023): Prior to recent hospitalization, insulin glargine dose was 25 units daily and short-acting insulin 10 units with meals. Assessment & Plan (05/24/2023 6:00 PM ABRASIVE GRADER HELPER): A1C 7.2 He will follow up with his PCP in [place] Assessment & Plan (04/22/2023 8:28 PM ABRASIVE GRADER HELPER): His appetite has been poor and he has been getting much less insulin than he is used to. His sugars however have been high. Will gradually increase mealtime insulin to 7 units. Previously on 10 units with meals. Long-Term (Current) Anticoagulant Treatment 08/2022 Overview (04/16/2023): On [...] side. 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 He will need a standard wheelchair Mr. Woods was admitted to [facility] April 10 following BK right [...] site Assessment & Plan (04/16/2023 7:55 PM ABRASIVE GRADER HELPER): Pain is well controlled. Stump care consists of washing with normal saline and dry. Cover with dry gauze or ABD b.i.d. he is wearing the knee brace to maintain extension in his working with therapies. He has follow-up with vascular surgery 05/11/2023. Assessment & Plan (04/12/2023 4:53 PM ABRASIVE GRADER HELPER): Patient and mentioned he is doing well [...] 75mcg. Assessment & Plan (06/05/2023 9:25 PM ABRASIVE GRADER HELPER): TSH value improved compared to prior value of 16.0 a month ago. Resident /nursing denied symptoms of hypothyroidism. Last T4 was 0.92 in April 2023. president commercial bank confirmed levothyroxine is given every morning (6am) without other medications. Therefore, we will increase levothyroxine 50mcg to 75mcg and rechecked TSH in 6 weeks. Nursing instructed to continue monitoring for symptoms of hypothyroidism and contact [facility] provider if any concerns. Assessment & Plan (05/24/2023 5:24 PM ABRASIVE GRADER HELPER): Increase levothyroxine to 50 mcg daily. group home may give two 25 mcg tablets to equal 50 mcg. He will be discharging in a week Assessment & Plan (04/23/2023 12:56 PM ABRASIVE GRADER HELPER): TSH will be done. He is currently on levothyroxine 25 mcg daily. Dose will need to be adjusted if TSH is elevated. Assessment & Plan (04/16/2023 7:56 PM ABRASIVE GRADER HELPER): Recheck TSH mid April. Assessment & Plan (04/12/2023 4:45 PM ABRASIVE GRADER HELPER): Continue levothyroxine. TSH reordered. 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 Assessment & Plan (04/12/2023 4:08 PM ABRASIVE GRADER HELPER): Plans to discharge back home. Patient remains [...] status Assessment & Plan (05/24/2023 5:15 PM ABRASIVE GRADER HELPER): He will be full code Assessment & Plan (01/17/2023 2:30 PM CDT): Continue full code status Hyperlipidemia 01/16/2023 Overview (05/24/2023): On atorvastatin Assessment & Plan (05/24/2023 6:01 PM ABRASIVE GRADER HELPER): Stay on statin Assessment & Plan (01/17/2023 2:35 PM CDT): Continue atorvastatin Assessment & Plan (01/17/2023 2:01 PM CDT): Continue atorvastatin Weakness General 01/16/2023 Overview (01/16/2023): This is multifactorial and related to recent hospitalizations and multiple comorbidities. Assessment & Plan (06/05/2023 9:26 PM ABRASIVE GRADER HELPER): Denied weakness. We will continue therapy. Assessment & Plan (05/24/2023 6:05 PM ABRASIVE GRADER HELPER): He is getting stronger with therapy. He will continue therapy when he gets his prosthesis. He will have a wheelchair upon discharge. Assessment & Plan (04/12/2023 4:09 PM ABRASIVE GRADER HELPER): Verbalized improvement with weakness. We will continue [...] 04/11/2023 Assessment & Plan (04/12/2023 3:58 PM ABRASIVE GRADER HELPER): Stable. Denied dizziness, lightheadedness, shortness of breaths and palpitation. Assessment & Plan (01/17/2023 2:30 PM CDT): Stable. Assessment & Plan (01/17/2023 1:58 PM CDT): Stable. Assessment & Plan (01/16/2023 7:16 PM CDT): Most recent hemoglobin 9.3. Atherosclerotic Heart Diseas e Of [place] Coronary Artery Without Angina Pectoris 01/15/2023 Overview [...] RAP). Assessment & Plan (05/24/2023 5:52 PM ABRASIVE GRADER HELPER): Stable on current meds Assessment & Plan (04/23/2023 1:02 PM ABRASIVE GRADER HELPER): BNAP 31,578 on 04/16/23. Dr. Gerardo increased furosemide to 40 mg bid and added spironolactone 25 mg daily. Weight today in [place] was 174 lb. No edema noted in left leg. No dyspnea. On O2 per N/C continuous. No change in medications until renal function results are available. Assessment & Plan (04/16/2023 7:41 PM ABRASIVE GRADER HELPER): He had multiple medication changes during hospitalization including discontinuation of spironolactone and Entresto. Farxiga is being held. Metoprolol and furosemide doses were decreased. Assessment & Plan (04/12/2023 4:01 PM ABRASIVE GRADER HELPER): No admission weight yet. Nursing to check [...] 12/22/2022 Assessment & Plan (04/22/2023 8:26 PM ABRASIVE GRADER HELPER): Pro BN AP earlier today greater than [...] Apixaban Assessment & Plan (05/24/2023 5:53 PM ABRASIVE GRADER HELPER): skilled nursing anticoagulation on apixaban Assessment & Plan (04/23/2023 1:03 PM ABRASIVE GRADER HELPER): Ventricular rate controlled today Assessment & Plan (04/12/2023 3:59 PM ABRASIVE GRADER HELPER): HR well controlled ranging from 82-85. Continue care plan. Assessment & Plan (01/17/2023 2:31 PM CDT): HR well controlled ranging from 64-99. Continue care plan. Assessment & Plan (01/16/2023 8:24 AM CDT): HR well controlled. Continue care plan. [facility] Use Of Insulin Active 12/09/2022 Overview (01/16/2023): On insulin glargine and aspart started during hospitalization December 2022. Assessment & Plan (05/24/2023 5:20 PM ABRASIVE GRADER HELPER): Nurse reports he is nonadherent to his [...] daily Assessment & Plan (06/07/2023 2:51 PM ABRASIVE GRADER HELPER): Blood sugars have been elevated due to [...] hypoglycemia. Assessment & Plan (05/29/2023 7:56 PM ABRASIVE GRADER HELPER): Patient's blood sugar continued to be on [...] possible. Assessment & Plan (05/24/2023 5:59 PM ABRASIVE GRADER HELPER): Insulin dependent not always compliant with diet. Glargine will be increased to 17 units. Assessment & Plan (05/22/2023 6:43 PM ABRASIVE GRADER HELPER): Blood sugar continued to be elevated mostly [...] 3 times daily with meals. Follow-up with PARING MACHINE OPERATOR next week. Dietitian/dietary to visit with patient and to discuss food options. Assessment & Plan (05/20/2023 4:22 PM ABRASIVE GRADER HELPER): Recent blood sugars in the SNF setting have been elevated. Short and long-acting insulin doses have changed significantly since admission. Will have him follow- up with PARING MACHINE OPERATOR for further review of blood sugars. Assessment & Plan (04/23/2023 1:04 PM ABRASIVE GRADER HELPER): Blood sugars not controlled. Increase Lantus to 14 units from 12. Assessment & Plan (04/16/2023 7:42 PM ABRASIVE GRADER HELPER): Was previously on glipizide and higher doses of mealtime aspart. Blood sugars are being checked 4 times daily. May need insulin readjusted. Assessment & Plan (04/12/2023 4:04 PM ABRASIVE GRADER HELPER): Blood sugars have been I< 200s. Currently [...] to 25 units and follow-up. 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 Assessment & Plan (05/24/2023 5:14 PM ABRASIVE GRADER HELPER): Stable Assessment & Plan (04/29/2023 7:54 PM ABRASIVE GRADER HELPER): Today, nursing had reported left lower calf and ankle redness with open wound. On assessing the left calf/ankle, there was an open skin area (abrasion) that has no redness, swelling nor drainage. The skin was not warmth to touch and patient denied pain at 0/10 (nurse training project manager was in attendance during visit). Nursing stated does look better than what it was this morning. They have been cleaning the wound area in apply Mepilex. Since there was no symptoms or evidence of infection on the left lower calf and ankle redness with open wound, nursing was instructed to continue skin check daily and current dressing. Contact [facility] providers if worsening skin condition. [...] for COVID-19 12/27/2022. Treated with remdesivir at [facility]. Anemia 01/16/2023 04/12/2023 Overview (04/12/2023): Lab Results Component Value Date WBC 9.0 04/11/2023 HGB 7.8 (L) 04/11/2023 HCT 24.9 (L) 04/11/2023 MCV 95 04/11/2023 PLT 381 04/11/2023 Assessment & Plan (04/12/2023 3:57 PM ABRASIVE GRADER HELPER): CBC reordered. Denied dizziness, lightheadedness, shortness of [...] 04/11/2023 Assessment & Plan (04/12/2023 4:05 PM ABRASIVE GRADER HELPER): BMP ordered. Assessment & Plan (01/17/2023 2:35 [...] Overview (01/15/2023): Onychomycosis of toenails; Original Code: [id number] Original Codesystem: SNOMED CT Classification: Medical Confirmation [...] Comments Blood Pressure 107/66 06/18/2023 1:10 PM ABRASIVE GRADER HELPER Pulse 78 06/18/2023 1:10 PM ABRASIVE GRADER HELPER Temperature 36.6 ??C (97.8 ??F) 06/18/2023 1:10 PM CS T Respiratory Rate 16 06/18/2023 1:10 PM ABRASIVE GRADER HELPER Oxygen Saturation 95% 06/18/2023 1:10 PM ABRASIVE GRADER HELPER Inhaled Oxygen Concentration - - Weight 75.8 kg (167 lb) 06/18/2023 1:10 PM ABRASIVE GRADER HELPER Height 175.3 cm (5' 9) 04/12/2023 3:21 PM ABRASIVE GRADER HELPER Body Mass Index 24.66 04/12/2023 3:21 PM ABRASIVE GRADER HELPER Plan of Treatment Health Maintenance Due Date Last Done Comments Hepatitis B Vaccines (1 of 3 - Risk 3-dose series) 2001 RSV vaccine - (32-3 6 weeks) or 60+ years (1 - 1-dose 75+ series) 2016 Fall Risk Screen (Annual) 05/14/2023 COVID-19 Vaccine (5 - 2023-2 5 season) 2024 03/29/2022, 03/09/2021, 07/24/2020, Additional history exists Influenza Vaccine (#1) 2024 , 03/09/2021, 03/09/2021, Additional history exists DTaP,Tdap,and Td Vaccines (2 - Td or Tdap) 01/21/2031 01/21/2021, 03/06/2006 Pneumococcal vaccine (65+ years) Completed 01/21/2015, 02/09/2011, 03/06/2006 Zoster Vaccines Completed 01/21/2021, 10/21/2020 Advance Directives For more information, please contact: [phone] * DNR/DNI (Latest Code Status on File) Date Activated Date Inactivated Comments 05/24/2023 6:14 PM * DNR/DNI Date Activated Date Inactivated Comments 04/12/2023 4:11 PM 04/16/2023 7:15 AM Care Teams Urban Gardening Specialist Relationship Specialty Start Date End Date Elsewhere, Pcp PCP - General Internal Medicine 08/28/23
--- OUTSIDE RECORDS SUMMARY | 2024-02-04 13:11 | XMS_ITS | Referral Summary ---
Author Organization [facility] Address [address] [place] [address] Care Team Providers Care Horse Buyer Name Role Phone Elsewhere, Pcp Primary Care Provider Unavailabl e Source Comments Patient records contain information from all sites at [facility]. For routine questions regarding patient records, call [phone] during business hours, M-F 8:00 AM - 5:00 PM Central Time. Record requests for emergency care only can be directed to [phone] at any time.[facility] Allergies No known active [...] guaze. Assessment & Plan (06/15/2023 4:18 PM EMERGENCY DEPARTMENT NURSE): The wound bed is clean. A thin layer of silver stat will be applied with a gauze. Change daily. 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 Left Heel: Area continues to improve. Wound measures [id number]. Edges well defined, attached and 100% re-epithelialized tissues. Granulation tissue is observed along the lining of the edges under the bed of slough/eschar. Eschar is soft but not mushy. Wound bed is still approx 95% or more of slough/eschar. Scant drainage with dressing change. Resident tolerated cares without any concerns. New wound orders as follows: Assessment & Plan (06/15/2023 4:10 PM EMERGENCY DEPARTMENT NURSE): 1: Gently cleanse area with NS. Pat dry. 2. Skin prep to gonsalo-wound. 3. Santyl to wound bed only. 4. Place gauze over wound. 5. cover with island dressing. 6. Change dressing daily. He may be discharged to home with home nursing for wound care . Assessment & Plan (06/01/2023 2:33 PM EMERGENCY DEPARTMENT NURSE): Continue wound care and have STAGE DIRECTOR evaluate in one week. Dementia 05/20/2023 Overview (05/24/2023): No documented dementia or behaviors Assessment & Plan (05/24/2023 5:57 PM EMERGENCY DEPARTMENT NURSE): He has low hearing which could contribute to him not understanding Assessment & Plan (05/20/2023 4:20 PM EMERGENCY DEPARTMENT NURSE): Although initial BIMS testing scored 14, he has had episodes of what seems to be sundowning with strong suspicion of underlying dementia. Will have OT further evaluate. Hyperglycemia 04/22/2023 Overview (04/22/2023): Prior to recent hospitalization, insulin glargine dose was 25 units daily and short-acting insulin 10 units with meals. Assessment & Plan (05/24/2023 6:00 PM EMERGENCY DEPARTMENT NURSE): A1C 7.2 He will follow up with his PCP in [place] Assessment & Plan (04/22/2023 8:28 PM EMERGENCY DEPARTMENT NURSE): His appetite has been poor and he has been getting much less insulin than he is used to. His sugars however have been high. Will gradually increase mealtime insulin to 7 units. Previously on 10 units with meals. Skilled Nursing (Current) Anticoagulant Treatment 08/2022 Overview (04/16/2023): On [...] side. 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 He will need a standard wheelchair Mr. Woods was admitted to [facility] April 10 following BK right lower extremity. [...] site Assessment & Plan (04/16/2023 7:55 PM EMERGENCY DEPARTMENT NURSE): Pain is well controlled. Stump care consists of washing with normal saline and dry. Cover with dry gauze or ABD b.i.d. he is wearing the knee brace to maintain extension in his working with therapies. He has follow-up with vascular surgery 05/11/2023. Assessment & Plan (04/12/2023 4:53 PM EMERGENCY DEPARTMENT NURSE): Patient and mentioned he is doing well [...] 75mcg. Assessment & Plan (06/05/2023 9:25 PM EMERGENCY DEPARTMENT NURSE): TSH value improved compared to prior value of 16.0 a month ago. Resident /nursing denied symptoms of hypothyroidism. Last T4 was 0.92 in April 2023. residential service technician confirmed levothyroxine is given every morning (6am) without other medications. Therefore, we will increase levothyroxine 50mcg to 75mcg and rechecked TSH in 6 weeks. Nursing instructed to continue monitoring for symptoms of hypothyroidism and contact [place] provider if any concerns. Assessment & Plan (05/24/2023 5:24 PM EMERGENCY DEPARTMENT NURSE): Increase levothyroxine to 50 mcg daily. longterm may give two 25 mcg tablets to equal 50 mcg. He will be discharging in a week Assessment & Plan (04/23/2023 12:56 PM EMERGENCY DEPARTMENT NURSE): TSH will be done. He is currently on levothyroxine 25 mcg daily. Dose will need to be adjusted if TSH is elevated. Assessment & Plan (04/16/2023 7:56 PM EMERGENCY DEPARTMENT NURSE): Recheck TSH mid April. Assessment & Plan (04/12/2023 4:45 PM EMERGENCY DEPARTMENT NURSE): Continue levothyroxine. TSH reordered. 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 Assessment & Plan (04/12/2023 4:08 PM EMERGENCY DEPARTMENT NURSE): Plans to discharge back home. Patient remains [...] status Assessment & Plan (05/24/2023 5:15 PM EMERGENCY DEPARTMENT NURSE): He will be full code Assessment & Plan (01/17/2023 2:30 PM CDT): Continue full code status Hyperlipidemia 01/16/2023 Overview (05/24/2023): On atorvastatin Assessment & Plan (05/24/2023 6:01 PM EMERGENCY DEPARTMENT NURSE): Stay on statin Assessment & Plan (01/17/2023 2:35 PM CDT): Continue atorvastatin Assessment & Plan (01/17/2023 2:01 PM CDT): Continue atorvastatin Weakness General 01/16/2023 Overview (01/16/2023): This is multifactorial and related to recent hospitalizations and multiple comorbidities. Assessment & Plan (06/05/2023 9:26 PM EMERGENCY DEPARTMENT NURSE): Denied weakness. We will continue therapy. Assessment & Plan (05/24/2023 6:05 PM EMERGENCY DEPARTMENT NURSE): He is getting stronger with therapy. He will continue therapy when he gets his prosthesis. He will have a wheelchair upon discharge. Assessment & Plan (04/12/2023 4:09 PM EMERGENCY DEPARTMENT NURSE): Verbalized improvement with weakness. We will continue [...] 04/11/2023 Assessment & Plan (04/12/2023 3:58 PM EMERGENCY DEPARTMENT NURSE): Stable. Denied dizziness, lightheadedness, shortness of breaths and palpitation. Assessment & Plan (01/17/2023 2:30 PM CDT): Stable. Assessment & Plan (01/17/2023 1:58 PM CDT): Stable. Assessment & Plan (01/16/2023 7:16 PM CDT): Most recent hemoglobin 9.3. Atherosclerotic Heart Diseas e Of [place] Coronary Artery Without Angina Pectoris 01/15/2023 Overview [...] RAP). Assessment & Plan (05/24/2023 5:52 PM EMERGENCY DEPARTMENT NURSE): Stable on current meds Assessment & Plan (04/23/2023 1:02 PM EMERGENCY DEPARTMENT NURSE): BNAP 31,578 on 04/16/23. Dr. Gerardo increased furosemide to 40 mg bid and added spironolactone 25 mg daily. Weight today in [place] was 174 lb. No edema noted in left leg. No dyspnea. On O2 per N/C continuous. No change in medications until renal function results are available. Assessment & Plan (04/16/2023 7:41 PM EMERGENCY DEPARTMENT NURSE): He had multiple medication changes during hospitalization including discontinuation of spironolactone and Entresto. Farxiga is being held. Metoprolol and furosemide doses were decreased. Assessment & Plan (04/12/2023 4:01 PM EMERGENCY DEPARTMENT NURSE): No admission weight yet. Nursing to check [...] 12/22/2022 Assessment & Plan (04/22/2023 8:26 PM EMERGENCY DEPARTMENT NURSE): Pro BN AP earlier today greater than [...] Apixaban Assessment & Plan (05/24/2023 5:53 PM EMERGENCY DEPARTMENT NURSE): jail anticoagulation on apixaban Assessment & Plan (04/23/2023 1:03 PM EMERGENCY DEPARTMENT NURSE): Ventricular rate controlled today Assessment & Plan (04/12/2023 3:59 PM EMERGENCY DEPARTMENT NURSE): HR well controlled ranging from 82-85. Continue care plan. Assessment & Plan (01/17/2023 2:31 PM CDT): HR well controlled ranging from 64-99. Continue care plan. Assessment & Plan (01/16/2023 8:24 AM CDT): HR well controlled. Continue care plan. Brand Communications Manager Use Of Insulin Active 12/09/2022 Overview (01/16/2023): On insulin glargine and aspart started during hospitalization December 2022. Assessment & Plan (05/24/2023 5:20 PM EMERGENCY DEPARTMENT NURSE): Nurse reports he is nonadherent to his [...] daily Assessment & Plan (06/07/2023 2:51 PM EMERGENCY DEPARTMENT NURSE): Blood sugars have been elevated due to [...] hypoglycemia. Assessment & Plan (05/29/2023 7:56 PM EMERGENCY DEPARTMENT NURSE): Patient's blood sugar continued to be on [...] possible. Assessment & Plan (05/24/2023 5:59 PM EMERGENCY DEPARTMENT NURSE): Insulin dependent not always compliant with diet. Glargine will be increased to 17 units. Assessment & Plan (05/22/2023 6:43 PM EMERGENCY DEPARTMENT NURSE): Blood sugar continued to be elevated mostly [...] 3 times daily with meals. Follow-up with STAGE DIRECTOR next week. Dietitian/dietary to visit with patient and to discuss food options. Assessment & Plan (05/20/2023 4:22 PM EMERGENCY DEPARTMENT NURSE): Recent blood sugars in the SNF setting have been elevated. Short and long-acting insulin doses have changed significantly since admission. Will have him follow- up with STAGE DIRECTOR for further review of blood sugars. Assessment & Plan (04/23/2023 1:04 PM EMERGENCY DEPARTMENT NURSE): Blood sugars not controlled. Increase Lantus to 14 units from 12. Assessment & Plan (04/16/2023 7:42 PM EMERGENCY DEPARTMENT NURSE): Was previously on glipizide and higher doses of mealtime aspart. Blood sugars are being checked 4 times daily. May need insulin readjusted. Assessment & Plan (04/12/2023 4:04 PM EMERGENCY DEPARTMENT NURSE): Blood sugars have been I< 200s. Currently [...] to 25 units and follow-up. 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 Assessment & Plan (05/24/2023 5:14 PM EMERGENCY DEPARTMENT NURSE): Stable Assessment & Plan (04/29/2023 7:54 PM EMERGENCY DEPARTMENT NURSE): Today, nursing had reported left lower calf and ankle redness with open wound. On assessing the left calf/ankle, there was an open skin area (abrasion) that has no redness, swelling nor drainage. The skin was not warmth to touch and patient denied pain at 0/10 (nurse legal project manager was in attendance during visit). Nursing stated does look better than what it was this morning. They have been cleaning the wound area in apply Mepilex. Since there was no symptoms or evidence of infection on the left lower calf and ankle redness with open wound, nursing was instructed to continue skin check daily and current dressing. Contact [facility] providers if worsening skin [...] for COVID-19 12/27/2022. Treated with remdesivir at [facility]. Anemia 01/16/2023 04/12/2023 Overview (04/12/2023): Lab Results Component Value Date WBC 9.0 04/11/2023 HGB 7.8 (L) 04/11/2023 HCT 24.9 (L) 04/11/2023 MCV 95 04/11/2023 PLT 381 04/11/2023 Assessment & Plan (04/12/2023 3:57 PM EMERGENCY DEPARTMENT NURSE): CBC reordered. Denied dizziness, lightheadedness, shortness of [...] 04/11/2023 Assessment & Plan (04/12/2023 4:05 PM EMERGENCY DEPARTMENT NURSE): BMP ordered. Assessment & Plan (01/17/2023 2:35 [...] Overview (01/15/2023): Onychomycosis of toenails; Original Code: [id number] Original Codesystem: SNOMED CT Classification: Medical Confirmation [...] Comments Blood Pressure 107/66 06/18/2023 1:10 PM EMERGENCY DEPARTMENT NURSE Pulse 78 06/18/2023 1:10 PM EMERGENCY DEPARTMENT NURSE Temperature 36.6 ??C (97.8 ??F) 06/18/2023 1:10 PM CS T Respiratory Rate 16 06/18/2023 1:10 PM EMERGENCY DEPARTMENT NURSE Oxygen Saturation 95% 06/18/2023 1:10 PM EMERGENCY DEPARTMENT NURSE Inhaled Oxygen Concentration - - Weight 75.8 kg (167 lb) 06/18/2023 1:10 PM EMERGENCY DEPARTMENT NURSE Height 175.3 cm (5' 9) 04/12/2023 3:21 PM EMERGENCY DEPARTMENT NURSE Body Mass Index 24.66 04/12/2023 3:21 PM EMERGENCY DEPARTMENT NURSE Plan of Treatment Not on file Advance Directives For more information, please contact: [phone] * DNR/DNI (Latest Code Status on File) Date Activated Date Inactivated Comments 05/24/2023 6:14 PM * DNR/DNI Date Activated Date Inactivated Comments 04/12/2023 4:11 PM 04/16/2023 7:15 AM Care Teams Horse Buyer Relationship Specialty Start Date End Date Elsewhere, Pcp PCP - General Internal Medicine 08/28/23
--- OUTSIDE RECORDS SUMMARY | 2024-02-04 13:11 | XMS_ITS | Encounter Summary ---
Author Name [facility] Organization [facility] Address [address] [place] [address] Care Team Providers Care Manufacturing Shift Supervisor Name Role Phone JIMENEZ CHESTER Primary Care [...] Cherry's Name Patient's Relationship to Policy Cherry [facility] (WNR) MEDICARE ADVANTAGE [facility] (WNR) May 14, 2020 [id number] [phone] PITER CASAS ERD PATIENT Selected Encounter This section includes the information on record at [place] for the Encounter. Date/Time Encounter Type Encounter Description Reason Provider Source Feb 02, 2024 10:15 AM HEARING AID REPAIR/MODIFYIN G AUDIOLOGY ICD-10-CM Z46.1 Encounter for fitting and adjustment of hearing aid MICK LBACK [facility] Encounter Template Text not used by [place] Assessments - Encounter Diagnoses This section includes the primary and secondary diagnoses documented for the Encounter. Date/Time Primary/Secondary Diagnosis Diagnosis Name Provider Source Feb 02, 2024 10:36 AM PRIMARY Encounter for fitting and adjustment of hearing aid MICK CUBA [facility]
--- OUTSIDE RECORDS SUMMARY | 2024-02-04 13:11 | XMS_ITS ---
Author Organization [facility] Address [address] [place] [address] Care Team Providers Care Template Layout Worker Name Role Phone Unavailable Unavailable Unavailable Surgery Details Not on file Complications Check Surgery Details section. Procedure Estimated Blood Loss Check Surgery Details section. Procedure Findings Check Surgery Details section. Procedure Specimens Taken Check Surgery Details section.
--- OUTSIDE RECORDS SUMMARY | 2024-02-04 13:11 | XMS_ITS | Clinical Summary ---
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 Test 3 times daily 1 Device 07/09/2020 Active Insulin Cary, Disposable, (Novofine 32) 32 gauge x 1/4Indications:2 [...] be used to read blood sugars, follow machine filler shredder directions. 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 Up to 3 tablets in 15 minutes. 50 Tablet 1 11/06/2023 Active pregabalin (LYRICA) 50 mg capsuleIndication s:Phantom limb pain (HC) Take 1 Capsule (50 mg) by mouth three times daily. 90 Capsule 3 01/01/2024 Active sacubitril-valsar walters (ENTRESTO 24 MG-26 MG TABLET) 24-26 mg tabletIndications :HFrEF (heart failure with reduced ejection fraction) (HC) Take 0.5 Tablets by mouth two times daily. 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 Surveillance due 2025. 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 11/25/2019 HTN (hypertension) 10/28/2015 Hyperlipidemia LDL goal <70 10/28/2015 Adenomatous colon polyp 04/13/2015 Overview (03/16/2020): Colonoscopy 04/2015 polyps repeat in 5 years Colonoscopy 03/2020 polyps, repeat in 5 years Background diabetic retinopathy(362.01) 07/10/19 08 Unspecified hearing loss 07/10/2007 Coronary atherosclerosis of unspecified type of vessel, peoria or graft Overview (11/08/2011): 4 vessel CABG 2001 Lexiscan only for cardiac evaluation - no treadmill Other ill-defined and unknow n causes of morbidity and mortality Impotence of organic origin Resolved Problems Problem Noted Date Diagnosed Date Resolved Date Type 2 diabetes mellitus with complication 11/16/2017 12/22/2022 Heart disease, unspecified 0 07/10/2007 Encounters Date Type Department Care Team Description 02/04/2024 Nurse Triage [facility] [address] [place] [address] Melquiades Man MD Neck Pain/problem 01/17/2024 12:40 PM CDT Orders Only [address] [phone] Lab, [facility] 01/17/2024 11:00 AM CDT Patient Outreach [address] [phone] Priyanka Hummel smudger (Download CGM for insulin management) 01/17/2024 Telephone [facility] [address] [place] [address] Melquiades Man MD 01/17/2024 Travel 01/11/2024 Nurse Triage [facility] [address] [place] [address] Melquiades Man MD Low Blood Pressure 01/11/2024 Nurse Triage [facility] [address] [place] [address] Melquiades Man MD Low Blood Pressure 01/08/2024 1:30 PM CDT Office Visit [facility]ie Mackay [address] [place] [address] [place] [address] Shade Manuel MD CV Heart Failure Est (EST PT. 6 MONTH F/U) 01/08/2024 Travel 01/04/2024 2:00 PM CDT Office Visit [facility] [address] [place] [address] Tatyana Nguyen PA Diabetes (a1c check ) 01/04/2024 Travel 01/04/2024 Telephone [facility] [address] [place] [address] Melquiades Man MD Procedure (DISCHARGE) 01/04/2024 Telephone [facility] [address] [place] [address] Tatyana Nguyen PA Appointment 01/01/2024 10:50 AM CDT Office Visit [facility] [address] [place] [address] Melquiades Man MD Pain (Phantom pain in rt foot, surgeon recommends yasmine); Derm Problem (Dark spot on left faith) 01/01/2024 Travel 12/27/2023 1:00 PM CDT - 12/27/2023 11:59 PM CDT Hospital Encounter [facility] [address] [address] Melquiades Man MD Manuell, Kayla, PT 12/27/2023 Travel 12/25/2023 Telephone [facility] [address] [place] [address] Melquiades Man MD 12/25/2023 Telephone [facility] [address] [place] [address] Melquiades Man MD Form 12/24/2023 12:54 PM CDT - 12/24/2023 11:59 PM CDT Hospital [facility] [address] [address] Melquiades Man MD Manuell, Kayla, PT 12/24/2023 Travel 12/20/2023 12:58 PM CDT - 12/20/2023 11:59 PM CDT Hospital [facility] [address] [address] Melquiades Man MD Manuell, Kayla, PT 12/20/2023 11:00 AM CDT Patient Outreach [address] [phone] Priyanka Hummel RN Diabetes (F/u for insulin management/download CGM) 12/20/2023 Travel 12/17/2023 12:58 PM CDT - 12/17/2023 11:59 PM CDT Hospital Encounter [facility] ? [facility] [address] [place] [address] VoteMelquiades lewis MD Manuell, Kayla, PT 12/17/2023 Travel 12/17/2023 Telephone [facility] [address] [place] [address] Melquiades Man MD Verbal Orders 12/11/2023 Orders Only [facility] Scanner 1 scan: (1-Ord) [facility], 12/11/2023 12/11/2023 Telephone [facility] [address] [place] [address] Melquiades Man MD 12/10/2023 1:45 PM CDT - 12/10/2023 11:59 PM CDT Hospital Encounter [facility] ? [facility] [address] [place] [address] VoteMelquiades lewis MD Manuell, Kayla, PT 12/10/2023 Travel 12/06/2023 12:55 PM CDT - 12/06/2023 11:59 PM CDT Hospital Encounter [facility] ? [facility] [address] [place] [address] Votedebbie, MD Deloris Cleary Kayla, PT 12/06/2023 Travel 12/05/2023 Orders Only [facility] Scanner 1 scan: (1-Ord) RCM, 12/05/2023 12/05/2023 Telephone [facility] [address] [place] [address] Melquiades Man MD 12/04/2023 Telephone [facility] [address] [place] [address] VoteMelquiades lewis MD insulin clarification orders 11/26/2023 12:57 PM CDT - 11/26/2023 11:59 PM CDT Hospital Encounter [facility] [address] [place] [address] Votel, MD Edgar Cleary Rebecca L, PT 11/26/2023 Travel 11/22/2023 1:26 PM CDT - 11/22/2023 11:59 PM CDT Hospital Encounter [facility] [address] [address] Votel, MD Deloris Cleary Kayla, PT 11/22/2023 Travel 11/22/2023 Refill [facility] [address] [place] [address] Votel, Melquiades Gray MD Refill Request (Needs alternative sent in for ~ Insulin Aspart Flexpen Inj 3ml ) 11/20/2023 1:38 PM CDT - 11/20/2023 11:59 PM CDT Hospital Encounter [facility] [address] [place] [address] Votel, MD Edgar Cleary Rebecca L, PT 11/20/2023 Travel 11/19/2023 Telephone [facility] [address] [place] [address] Votel, Melquiades Gray MD Concerns 11/14/2023 Telephone [facility] [address] [place] [address] GunnarteMelquiades lewis MD Prior Authorization (insulin aspart, U-100, (NOVOLOG FLEXPEN) 100 unit/mL (3 mL) pen - APPROVED 11/08/23- until further notice) 11/13/2023 2:00 PM CDT Patient Outreach [facility] [address] [facility] [place] [address] Priyanka Hummel smudger (Review Dexcom report/insulin management) 11/12/2023 12:55 PM CDT - 11/12/2023 11:59 PM CDT Hospital Encounter [facility] [address] [place] [address] VoteMelquiades lewis MD Oswald, Rebecca L, PT 11/12/2023 Travel 11/07/2023 Telephone [facility] [address] [place] [address] Melquiades Man MD INSULIN ASPART FLEXPEN 11/06/2023 10:25 AM CDT Office Visit [facility] [address] [place] [address] Melquiades Man MD Medicare ANNUAL (subsequent) Visit (83 year old male); Medication Management (insulin) 11/06/2023 Telephone [facility] [address] [place] [address] VoMelquiades sotomayor MD Form 11/05/2023 12:49 PM CDT - 11/05/2023 11:59 PM CDT Hospital Encounter [facility] [address] [place] [address] GunnarteMelquiades lewis MD Oswald, Rebecca L, PT 11/05/2023 Travel from Last 3 Months Immunizations Name Administration Dates Next Due COVID-19 VACCINE COMIRNATY (PFIZER-BIONTECH 30MCG/0.3ML) 12YO+ PFS 03/05/2023 COVID-19 vaccine (Moderna 100mcg/0.5mL) KATHERINE CAMEJO 03/09/2021 COVID-19 vaccine (Moderna 50 mcg/0.5mL) 12YO+ BIVALENT PF MDV 03/29/2022 COVID-19 vaccine (Pfizer-Bio NTech 30mcg/0.3mL) MD NELLV 03/09/2021,07/24/2020,07/03/2020 Influenza Virus, Unspecified 03/09/2021,02/12/20,03/15/2017 Influenza, High-dose Inactivated [...] Sign Reading Time Taken Comments Blood Pressure 100/56 01/08/2024 1:48 PM CDT Pulse 74 01/08/2024 1:48 PM CDT Temperature 36.4 ??C (97.5 ??F) 11/06/2023 1 0:30 AM CDT Respiratory Rate 24 05/03/2023 7:04 AM ENVIRONMENTAL ANALYST Oxygen Saturation 98% 01/08/2024 1:4 8 PM CDT Inhaled Oxygen Concentration - - Weight 80.7 kg (178 lb) 01/08/2024 1:48 PM CDT with pros. leg Height 175.3 cm (5' 9.02) 01/08/2024 1 :48 PM CDT Body Mass Index 26.27 01/08/2024 1:48 PM CDT Plan of Treatment Upcoming Encounters Date Type Department Care Team (Late st Contact Info) Description 02/07/2024 11:00 AM CDT Patient Outreach [address] [phone] Priyanka Hummel RN [address] [place] [address] Health Maintenance Due Date Last Done Comments COVID-19 vaccine series ( season) 2024 03/05/2023, 03/29/2022, 03/09/2021, Additional history exists Influenza for age 65+ 01/13/2024 03/05/2023 , 04/05/2022, 03/09/2021, Additional history exists Depression screening for age 12+ 11/06/2024 11/07/2023, 11/06/2023, 11/06/2023, Additional history exists Medicare Wellness for age 65+ 11/06/2024, 08/01/2022, 11/25/2019, Additional history exists BMI (ht and wt on same day) for age 18+ 01/07/2025 01/08/2024, 07/27/2023, 02/20/2023, Additional history exists Tetanus booster 01/21/2031 01/21/2021, 02/12, 03/06/2006, Additional history exists Pneumococcal series for age 65+ Completed 01/21/2015, 02/09/2011, 03/06/2006 Tdap Completed 01/21/2021 Zoster (shingles) series for age 50+ Completed 01/21/2021, 10/21/2020 RSV vaccine for adults or Completed 03/05/2023 Procedures Procedure Name Priority Date/Time Associated Diagnosis Comments BASIC METABOLIC PANEL Routine 01/17/2024 11:44 AM CDT HFrEF (heart failure with reduced ejection fraction) (HC) HEMOGLOBIN A1C Routine 01/04/2024 2:14 PM CDT 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 SODIUM 140 136 - 145 mmol/L 01/17/2024 12:24 PM [facility] POTASSIUM 4.4 3.5 - 5.1 mmol/L 01/17/2024 12:24 PM [facility] CHLORIDE 108(H) 98 - 107 mmol/L 01/17/2024 12:24 PM [facility] CO2,TOTAL 25 22 - 29 mmol/L 01/17/2024 12:24 PM [facility] ANION GAP 7 5 - 18 01/17/2024 12:24 PM [facility] GLUCOSE 118(H) 70 - 99 mg/dL 01/17/2024 12:24 PM [facility] CALCIUM 9.6 8.8 - 10.2 mg/dL 01/17/2024 12:24 PM [facility] BUN 44(H) 8 - 23 mg/dL 01/17/2024 12:24 PM [facility] CREATININE 1.82(H) 0.70 - 1.20 mg/dL 01/17/2024 12:24 PM [facility] BUN/CREAT RATIO 24(H) 10 - 20 12:24 PM [facility] eGFR 37(L) >90 mL/min/1.7 3m2 01/17/2024 12:24 PM [facility] Comment:As of 2021, eG FR is calculated by the CKD-EPI creatinine equation without race adjustment. ??eGFR can be influenced by muscle mass, exercise, and diet. ??The reported eGFR is an estimation only and is only applicable if the renal function is stable. Blood BLOOD SPECIMEN / Unknown Venipuncture / Unknown 01/17/2024 11:44 AM CDT 01/17/2024 11:45 AM CDT Shade Manuel MD CHEMISTRY Performing Organization Address City/[facility]/ZIP Co de Phone Number [facility] [address] [place] [address] * (ABNORMAL) HEMOGLOBIN A1C MONITORING (POCT) (01/04/2024 2:14 PM CDT) HEMOGLOBIN A1C MONITORING (POCT) 9.7(H) <=6.4 % 01/04/2024 2:24 PM CDT [facility] Blood BLOOD SPECIMEN / Unknown Venipuncture / Unknown 01/04/2024 2:14 PM CDT 01/04/2024 2:16 PM CDT Narrative [facility] - 01/04/2024 2:24 PM CDT ? (<=6.9%) ? Indicates good control ? (7.0% to 7.9%) ? Indicates fair control ? (>=8.0%) ? Indicates poor control ?? NOTE: ??These thresholds are guidelines and ?individual targets may vary. Falsely low levels may be seen with: Recent Transfusion, Recent Significant Blood Loss, Hemolytic Diseases, or Falsely elevated levels may be seen with: Untreated Anemias, Splenectomy ? Tatyana JENNINGS CHEMISTRY Performing Organization Address City/[facility]/ZIP Co de Phone Number [facility] [address] [place] [address], * SCAN-EYE EXAM (12/11/2023 12:00 AM CDT) Scanner OTHER * SCAN-EYE EXAM (12/05/2023 12:00 AM CDT) Scanner OTHER * (ABNORMAL) CBC WITH AUTO DIFFERENTIAL (11/06/2023 12:33 PM CDT) WHITE BLOOD COUNT 8.5 4.5 - 11.0 thou/cu mm 11/06/2023 12:44 PM CDT [facility] RED BLOOD COUNT 3.98(L) 4.30 - 5.90 mil/cu mm 11/06/2023 12:44 PM CDT [facility] HEMOGLOBIN 12.0(L) 13.5 - 17.5 g/dL 11/06/2023 12:44 PM CDT [facility] HEMATOCRIT 36.7(L) 37.0 - 53.0 % 11/06/2023 12:44 PM CDT [facility] MCV 92 80 - 100 fL 11/06/2023 12:44 PM CDT [facility] MCH 30.2 26.0 - 34.0 pg 11/06/2023 12:44 PM CDT [facility] MCHC 32.7 32.0 - 36.0 g/dL 11/06/2023 12:44 PM CDT [facility] RDW 15.9(H) 11.5 - 15.5 % 11/06/2023 12:44 PM CDT [facility] PLATELET COUNT 273 140 - 440 thou/cu mm 11/06/2023 12:44 PM CDT [facility] MPV 9.6 6.5 - 11.0 fL 11/06/2023 12:44 PM CDT [facility] % NEUT 69.0 % 11/06/2023 12:44 PM CDT [facility] % LYMPH 18.8 % 11/06/2023 12:44 PM CDT [facility] % MONO 7.6 % 11/06/2023 12:44 PM CDT [facility] % EOS 3.8 % 11/06/2023 12:44 PM CDT [facility] % BASO 0.8 % 11/06/2023 12:44 PM CDT [facility] ABSOLUTE NEUTROPHILS 5.9 1.7 - 7.0 thou/cu mm 11/06/2023 12:44 PM CDT [facility] ABSOLUTE LYMPHOCYTES 1.6 0.9 - 2.9 thou/cu mm 11/06/2023 12:44 PM CDT [facility] ABSOLUTE MONOCYTES 0.6 <0.9 thou/cu mm 11/06/2023 12:44 PM CDT [facility] ABSOLUTE EOSINOPHILS 0.3 <0.5 thou/cu mm 11/06/2023 12:44 PM CDT [facility] ABSOLUTE BASOPHILS 0.1 <0.3 thou/cu mm 11/06/2023 12:44 PM CDT [facility] Blood BLOOD SPECIMEN / Unknown Butterfly / Unknown 11/06/2023 12:33 PM CDT 11/06/2023 12:37 PM CDT Melquiades Man MD HEMATOLOGY [facility] [address] [place] [address], * LIPID PANEL W REFLEX MEASURED LDL (11/06/2023 12:33 PM CDT) CHOLESTEROL,TOTAL 156 100 - 199 mg/dL 11/07/2023 1:57 AM T [facility] Comment: Cholesterol, Total Reference Ranges Desirable <200 mg/dL Borderline 200-239 mg/dL High >=240 mg/dL TRIGLYCERIDES 124 <150 mg/dL 11/07/2023 1:57 AM CDT [facility] HDL CHOLESTEROL 56 >40 mg/dL 1:57 AM T [facility] NON-HDL CHOLESTEROL 100 <145 mg/dl 11/07/2023 1:57 AM T [facility] CHOL/HDL RATIO 2.79 <4.50 11/07/2023 1:57 AM T [facility] LDL CHOLESTEROL 75 <=130 mg/dL 11/07/2023 1:57 AM CDT [facility] VLDL CHOLESTEROL 25 <=30 mg/dL 11/07/2023 1:57 AM CDT [facility] PROVIDER ORDERED STATUS RANDOM 11/07/2023 1:57 AM CDT [facility] Blood BLOOD SPECIMEN / Unknown Butterfly / Unknown 11/06/2023 12:33 PM CDT 11/06/2023 12:37 PM CDT Melquiades Man MD CHEMISTRY Performing Organization Address [facility] Co de Phone Number [facility] [address] [place] [address], [place] * TSH (11/06/2023 12:33 PM CDT) TSH 2.24 0.27 - 4.20 uIU/mL 11/07/2023 1:57 AM CDT [facility] Blood BLOOD SPECIMEN / Unknown Butterfly / Unknown 11/06/2023 12:33 PM CDT 11/06/2023 12:37 PM CDT Narrative [facility] - 11/07/2023 1:57 AM CDT In Adults, TSH values between 5.00 and 10.00 uIU/ml do not necessarily indicate the presence of Hypothyroidism. Correlation with clinical findings such as presence of goiter and/or Thyroperoxidase (TPO) Antibody may be helpful. For more information please refer to RONNIE 2004; 291: 228-238. Melquiades Man MD CHEMISTRY Performing Organization Address City/[facility] Co de Phone Number [facility] [address] [place] [address], [place] * ALT (SGPT) (11/06/2023 12:33 PM CDT) ALT (SGPT) 21 10 - 50 IU/L 11/07/2023 1:57 AM CDT [facility] Blood BLOOD SPECIMEN / Unknown Butterfly / Unknown 11/06/2023 12:33 PM CDT 11/06/2023 12:37 PM CDT Melquiades Man MD [facility] 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
[2024-02-04 13:14] LABS: Troponin, Point-of-Care* 0.04 ng/ml (0.01-0.04)
[2024-02-04 13:28] LABS: Chloride* 107 mmol/L (96-114)
[2024-02-04 13:29] LABS: Potassium* 4.6 mmol/L (3.6-5.1); Sodium* 140 mmol/L (135-149)
[2024-02-04 13:31] LABS: Creatinine* 1.6 mg/dL (0.5-1.5); Estimated Glomerular Filt Rate 43 ml/min
[2024-02-04 13:32] LABS: Anion Gap 11 mEq/L (7-15); Blood Urea Nitrogen* 48 mg/dL (7-30); Calcium* 9.6 mg/dL (8.4-10.6); Carbon Dioxide* 22 mmol/L (20-32); Glucose* 292 mg/dL (60-115)
[2024-02-04] MEDS: HYDROmorphone 0.5 mg/0.5 ml inj 0.3 MG IVP (13:39)
[2024-02-04 13:42] VITALS: PULSE 77; O2SAT 100
[2024-02-04 13:45] VITALS: PULSE 83; O2SAT 99
[2024-02-04 13:49] VITALS: BP 120/70; PULSE 80; RESP 16; O2SAT 99
[2024-02-04 14:02] LABS: Strep A DNA Probe* NOT DETECTED (Not Detectd)
== END 2024-02-04 14:38 | disposition home or self-care (01) ==
PROVIDERS: Emergency Provider Emergency Medicine Emergency Medical Services; PCP Family Medicine
DX: M54.2 Cervicalgia (principal)
CPT/HCPCS: 36415; 70450; 72125; 80048; 84484; 85025; 87651; 93005; 94761; 99284; 99285; J1170

== ENCOUNTER 2024-03-18 12:40 | Outpatient (CLI) | payer OTHER, MEDICARE, BC, SELFPAY ==
--- OUTSIDE RECORDS SUMMARY | 2024-03-18 12:42 | XMS_ITS | Continuity of Care Document ---
Author Name [facility] Organization [facility] Care Team Providers Care Network Services Project Manager Name Role Phone [facility] Unavailable Unavailable Problems Combined list of problems from Department of Defense and Veterans Affairs facilities. It does not include entries that were removed or entered in error. Problem Status Onset Date Problem Type Date of Resolution Comments Source Exposure to potentially hazardous substance ([facility] [id number]) Active 07/20/19 24 Condition Jul 20, 2023 Entered By: MECHELLE DEMPSEY Comment: [facility] Documentation Initiative [facility] CAD - Coronary Artery Disease ([facility] [id number]) Active Condition [place] [facility] CHF - Congestive Heart Failure ([facility] [id number]) Active Condition [facility]) Diabetes Mellitus Type 2 ([facility] [id number]) Active Condition [place] [facility]) History of amputation of right leg through tibia and fibula Active Condition [place] [facility] HTN - Hypertension ([facility] 13878592) Active Condition [place] [facility]) Hyperlipidemia ([facility] [id number]) Active Condition [facility]) Hypothyroidism ([facility] [id number]) Active Condition [place] [facility]) Long-term current use of insulin Active Condition [place] [facility]) Peripheral neuropathy due to type 2 diabetes mellitus Active Condition [place] [facility]) Diagnosis: ICD-10-CM L89.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, stage 3 Active Diagnosis [facility]) Diagnosis: ICD-10-CM Z46.1 Encounter for fitting and adjustment of hearing aid Active Diagnosis [facility] Diagnosis: ICD-10-CM R53.[address] [facility] Diagnosis: ICD-10-CM Z74.09 Other reduced mobility Active Diagnosis [facility]) Diagnosis: ICD-10-CM E11.9 Type 2 diabetes mellitus without complications Active Diagnosis [facility]) Diagnosis: ICD-10-CM H90.3 Sensorineural hearing loss, bilateral Active Diagnosis [facility] Diagnosis: ICD-10-CM I50.9 Heart failure, unspecified Active Diagnosis [facility] ([facility]) Diagnosis: ICD-10-CM R26.89 Other abnormalities of gait and mobility Active Diagnosis [facility] ([facility]) Diagnosis: ICD-10-CM Z00.00 Encntr for general [...] TABLET BY MOUTH EVERY 12 HOURS ORAL ACTIVE RYAN CHESTER 2022 [place] ([facility]) ATORVASTATI N CA 40MG TAB TAKE ONE TABLET BY MOUTH DAILY ORAL ACTIVE RYAN CHESTER 2022 [place] ([facility]) CADEXOMER IODINE 0.9% GEL,TOP APPLY THIN LAYER TOPICALL Y DIRECTED FOLLOWIN G WOUND CARE ORDERS TOPICA L 02/16/2024 [id number] KATHY MURPHY 2022 40 [facility] CLOPIDOGREL BISULFATE 75MG TAB TAKE ONE TABLET BY MOUTH DAILY ORAL ACTIVE RYAN CHESTER 2022 [place] ([facility] CONTOUR NEXT (GLUCOSE) TEST STRIP USE 1 STRIP THREE TIMES A DAY NOT APPLIC ABLE RYAN GLASS 2020 [place] ([facility]) DAPAGLIFLOZ IN 10MG TAB TAKE ONE TABLET BY MOUTH DAILY ORAL ACTIVE RYAN CHESTER 2023 [place] ([facility]) INSULIN GLARGINE 300UNITS/ML 3ML PEN INJ INJECT 34 UNITS UNDER THE SKIN DAILY SUBCUT ANEOUS ACTIVE RYAN CHESTER 2023 [place] ([facility]) INSULIN,ASP ART,HUMAN (EQV-NOVOLO G) 100 UNIT/ML,FLE XPEN,3ML INJECT 20 UNITS UNDER THE SKIN EVERY MORNING AND INJECT 24 UNITS EVERYDAY AT NOON AND INJECT 24 UNITS EVERY EVENING SLIDING SCALE 2 UNITS FOR BLOOD SUGARS 150-199, 4 UNITS FOR 200-249, 6 UNITS FOR 250-299, 8 UNITS FOR 300-349, 10 UNITS FOR 350-399, AND 12 UNITS FOR > 400 UNITS AND CALL MD. MAY USE UP TO 90 UNITS/DA Y SLIDING SCALE 2 UNITS FOR BLOOD SUGARS 150-199, 4 UNITS FOR 200-249, 6 UNITS FOR 250-299, 8 UNITS FOR 300-349, 10 UNITS FOR 350-399, AND 12 UNITS FOR > 400 UNITS AND CALL MD. MAY USE UP TO 90 UNITS/DA Y SUBCUT ANEOUS ACTIVE 03/12/2025 [id number] HENRIKRYAN Cason 2023 15 [place] ([facility]) INSULIN,ASP ART,HUMAN (EQV-NOVOLO G) 100 UNIT/ML,FLE XPEN,3ML INJECT 16 UNITS UNDER THE SKIN BEFORE MEALS FOR DIABETES SLIDING SCALE 2 UNITS FOR BLOOD SUGARS 150-199, 4 UNITS 200-249, 6 UNITS 250-299, 8 UNITS 300-349, 10 UNITS FOR 350-390, AND 12 UNITS FOR GREATER THAN 400 UNITS AND CALL MD. MAY USE UP TO 60 UNITS/DA Y SUBCUT ANEOUS DISCONT INUED (EDIT) 01/10/2025 [id number] RYAN CHESTER 2023 10 [place] ([facility]) INSULIN,ASP ART,HUMAN (EQV-NOVOLO G) 100 UNIT/ML,FLE XPEN,3ML INJECT 8 UNITS UNDER THE SKIN BEFORE [...] MAY USE UP TO 60 UNITS/DA Y SUBCUT ANEOUS DISCONT INUED (EDIT) 11/08/2024 [id number] RYAN CHESTER 2023 10 [place] ([facility]) LEVOTHYROXI NE NA 75MCG TAB (SYNTHROID) TAKE ONE TABLET BY MOUTH EVERY DAY ORAL ACTIVE RYAN CHESTER 2023 [place] ([facility]) METOPROLOL SUCCINATE TAB,SA TAKE 12.5 MG BY MOUTH TWICE A DAY ORAL ACTIVE RYAN CHESTER 2023 [place] ([facility]) MIRTAZAPINE TAB TAKE 7.5 MG BY MOUTH AT BEDTIME ORAL RYAN GLASS 2023 [place] ([facility]) NITROGLYCER IN 0.4MG [...] SKIN FOUR TIMES A DAY SUBCUT ANEOUS RYAN GLASS 2020 [place] ([facility]) PANTOPRAZOL E NA 40MG TAB,EC TAKE ONE TABLET BY MOUTH DAILY ORAL ACTIVE RYAN CHESTER 2022 [place] ([facility]) SPIRONOLACT ONE 25MG TAB TAKE ONE TABLET BY MOUTH DAILY ORAL ACTIVE HENRIKFELICITY BOB P 2022 [place] ([facility]) TRIAMCINOLO NE ACETONIDE 0.1% OINT,TOP APPLY SMALL AMOUNT TOPICALL Y THREE TIMES A DAY NEEDED TOPICA L RYAN GLASS 2020 [place] ([facility]) Immunizations Combined list of available immunizations from the Department of Defense and Veterans Affairs facilities. Immunization Series Date Given Administered By Site Reaction Lot Number CVX Code Drug Bomb Loader Status Comments Source COVID-19 (All At Home), MRNA, LNP-S, PF, NAVYA-SUCROSE, 30 MCG/0.3 ML (AGES 12+ YEARS) 2023 309 complet ed [facility] INFLUENZA, ADJUVANTED, TRIVALENT, PF 2023 168 complet [facility] COVID-19 (All At Home), MRNA, LNP-S, PF, NAVYA-SUCROSE, 30 MCG/0.3 ML (AGES 12+ YEARS) 2022 309 complet ed [facility] INFLUENZA, ADJUVANTED, QUADRIVALENT, PF 2022 205 complet ed [facility] RSV, BIVALENT, PROTEIN SUBUNIT RSVPREF, DILUENT RECONSTITUTED , 0.5 ML, PF 2022 305 complet ed [facility] INFLUENZA, HIGH-DOSE, QUADRIVALENT 1 2021 197 complet ed [facility] COVID-19 (MODERNA), MRNA, LNP-S, BIVALENT, PF, 50 MCG/0.5 ML OR 25MCG/0.25 ML DOSE 1 2021 229 complet ed [facility] COVID-19 (MODERNA), MRNA, LNP-S, PF, 100 MCG/0.5ML DOSE OR 50 MCG/0.25ML DOSE 2020 207 complet ed [facility] COVID-19 (PFIZER), MRNA, LNP-S, PF, 30 MCG/0.3 ML DOSE 3 2020 208 complet ed [facility] INFLUENZA, HIGH-DOSE, QUADRIVALENT, PF 2020 197 complet ed [facility] INFLUENZA, UNSPECIFIED FORMULATION 2020 88 complet ed [facility] TDAP 2020 115 complet ed [employer], [id number] , exp-2022 and given VIS dated 12/17/2020 [place] ([facility]) ZOSTER RECOMBINANT 2 2020 187 complet ed [place] ([facility]) ZOSTER RECOMBINANT 1 2020 187 complet ed [place] ([facility]) COVID-19 (PFIZER), MRNA, LNP-S, PF, 30 MCG/0.3 ML DOSE 2 2020 208 complet ed [facility] COVID-19 (PFIZER), MRNA, LNP-S, PF, 30 MCG/0.3 ML DOSE 1 2020 208 complet ed [facility] INFLUENZA, ADJUVANTED, TRIVALENT, PF 2019 168 complet ed [facility] INFLUENZA, UNSPECIFIED FORMULATION 2019 88 complet ed [facility] INFLUENZA, HIGH-DOSE, TRIVALENT, PF 2018 135 complet ed [facility] INFLUENZA, ADJUVANTED, TRIVALENT, PF 2017 168 complet ed [facility] INFLUENZA, UNSPECIFIED FORMULATION 2016 88 complet ed [facility] INFLUENZA, HIGH-DOSE, TRIVALENT, PF 2014 135 complet ed [facility] PNEUMOCOCCAL CONJUGATE PCV 13 2014 133 complet ed Per [facility] INFLUENZA, SPLIT VIRUS, TRIVALENT, PRESERVATIVE 2012 141 complet ed [facility] INFLUENZA, SPLIT VIRUS, TRIVALENT, PRESERVATIVE 2011 141 complet ed [facility] INFLUENZA, SPLIT VIRUS, TRIVALENT, PF 2010 140 complet ed [facility] PNEUMOCOCCAL POLYSACCHARID E PPV23 2010 33 complet [facility] INFLUENZA, SPLIT VIRUS, TRIVALENT, PRESERVATIVE 2009 141 complet ed [facility] INFLUENZA, SPLIT VIRUS, TRIVALENT, PF 2008 140 complet ed [facility] INFLUENZA, SPLIT VIRUS, TRIVALENT, PRESERVATIVE 2007 141 complet ed [facility] INFLUENZA, SPLIT VIRUS, TRIVALENT, PRESERVATIVE 2006 141 complet ed [facility] INFLUENZA, SPLIT VIRUS, TRIVALENT, PRESERVATIVE 2005 141 complet ed [facility] PNEUMOCOCCAL POLYSACCHARID E PPV23 2005 33 complet [facility] TD (ADULT), 5 LF TETANUS TOXOID, PRESERVATIVE FREE, ADSORBED 2005 113 complet [facility] INFLUENZA, SPLIT VIRUS, TRIVALENT, PRESERVATIVE 2004 141 complet [facility] INFLUENZA, SPLIT VIRUS, TRIVALENT, PRESERVATIVE 2003 141 complet ed [facility] INFLUENZA, SPLIT VIRUS, TRIVALENT, PRESERVATIVE 2002 141 complet ed [facility] Results Combined list of recent chemistry, [...] Jan 23, 2023 02:00 PM Reporting Lab: [place] [phone] Performing Lab: [address] (CB) BASIC METABOLIC PANEL+MG UREA NITROGEN [MASS/VOLUM E] IN SERUM OR PLASMA 35 mg/dL 8 - 26 01/23 H Specimen Type: PLASMA No comment entered. Ordering Provider: AILIN CHESTER Report Released Date/Time: Jan 23, 2023 02:00 PM Reporting Lab: [place] [phone] Performing Lab: [place] [phone] [place] [address] ([facility]) BASIC METABOLIC PANEL+MG GLUCOSE [MASS/VOLUM E] IN SERUM OR PLASMA 239 mg/dL 70 - 100 01/23 H Specimen Type: PLASMA No comment entered. Ordering Provider: AILIN CHESTER Report Released Date/Time: Jan 23, 2023 02:00 PM Reporting Lab: [place] [phone] Performing Lab: [address] [place] [address] ([facility]) BASIC METABOLIC PANEL+MG SODIUM [MOLES/VOLU ME] IN SERUM OR PLASMA 140 mmol/L 136 - 145 01/23 Specimen Type: PLASMA No comment entered. Ordering Provider: AILIN CHESTER Report Released Date/Time: Jan 23, 2023 02:00 PM Reporting Lab: [place] [phone] Performing Lab: [address] ([facility]) BASIC METABOLIC PANEL+MG POTASSIUM [MOLES/VOLU ME] IN SERUM OR PLASMA 5.1 mmol/L 3.5 - 5.1 01/23 Specimen Type: PLASMA No comment entered. Ordering Provider: AILIN CHESTER Report Released Date/Time: Jan 23, 2023 02:00 PM Reporting Lab: [facility] [phone] Performing Lab: [place] [phone] [place] ([facility]) BASIC METABOLIC PANEL+MG CHLORIDE [MOLES/VOLU ME] IN SERUM OR PLASMA 109 mmol/L 98 - 107 01/23 H Specimen Type: PLASMA No comment entered. Ordering Provider: AILIN CHESTER Report Released Date/Time: Jan 23, 2023 02:00 PM Reporting Lab: [facility] [phone] Performing Lab: [facility] [phone] [place] ([facility]) BASIC METABOLIC PANEL+MG CARBON DIOXIDE, TOTAL [MOLES/VOLU ME] IN SERUM OR PLASMA 21 mmol/L 22 - 29 01/23 L Specimen Type: PLASMA No comment entered. Ordering Provider: AILIN CHESTER Report Released Date/Time: Jan 23, 2023 02:00 PM Reporting Lab: [facility] [phone] Performing Lab: [facility] [address] [place] [facility]) BASIC METABOLIC PANEL+MG CALCIUM [MASS/VOLUM E] IN SERUM OR PLASMA 9.4 mg/dL 8.4 - 10.2 01/23 Specimen Type: PLASMA No comment entered. Ordering Provider: AILIN CHESTER Report Released Date/Time: Jan 23, 2023 02:00 PM Reporting Lab: [facility] [address] Performing Lab: [facility] [address] [place] ([facility]) BASIC METABOLIC PANEL+MG MAGNESIUM [MASS/VOLUM E] IN SERUM OR PLASMA 1.7 mg/dL 1.6 - 2.6 01/23 Specimen Type: PLASMA No comment entered. Ordering Provider: AILIN CHESTER Report Released Date/Time: Jan 23, 2023 02:00 PM Reporting Lab: [facility] [address] Performing Lab: [facility] [phone] [place] ([facility]) BASIC METABOLIC PANEL+MG ANION GAP IN SERUM OR PLASMA 10 mmol/L 5 - 15 01/23 Specimen Type: PLASMA No comment entered. Ordering Provider: AILIN CHESTER Report Released Date/Time: Jan 23, 2023 02:00 PM Reporting Lab: [facility] [address] Performing Lab: [facility] [address] [place] ([facility]) BASIC METABOLIC PANEL+MG GLOMERULAR FILTRATION RATE/1.73 SQ M.PREDICTED [VOLUME RATE/AREA] IN SERUM, PLASMA OR BLOOD BY CREATININE- BASED FORMULA (CKD-EPI 2020) 61 60 01/23 Specimen Type: PLASMA No comment entered. Ordering Provider: AILIN CHESTER Report Released Date/Time: Jan 23, 2023 02:00 PM Reporting Lab: [facility] [address] Performing Lab: [facility] [phone] [place] [facility]) BNP NATRIURETIC PEPTIDE B [MASS/VOLUM E] IN SERUM OR PLASMA 1549 pg/mL <99 - 99 01/23 H Specimen Type: PLASMA No comment entered. Ordering Provider: AILIN CHESTER Report Released Date/Time: Jan 23, 2023 02:00 PM Reporting Lab: [place] [phone] Performing Lab: [place] [phone] [place] [facility]) MICROALBU MIN/CREAT ININE RATIO URINE CREATININE [MASS/VOLUM E] IN URINE 132.8 mg/dL 58.0 - 161.0 11/23 Specimen Type: URINE No comment entered. Ordering Provider: AILIN CHESTER Report Released Date/Time: Nov 23, 2022 11:58 AM Reporting Lab: [facility] [address] Performing Lab: [facility] [phone] [place] [facility]) MICROALBU MIN/CREAT ININE RATIO URINE MICROALBUMI N/CREATININ E [MASS RATIO] IN URINE 28.0 mg/g{c reat} 11/23 Specimen Type: URINE No comment entered. Ordering Provider: AILIN CHESTER Report Released Date/Time: Nov 23, 2022 11:58 AM Reporting Lab: [facility] [phone] Performing Lab: [facility] [phone] [place] ([facility]) MICROALBU MIN/CREAT ININE RATIO URINE MICROALBUMI N [MASS/VOLUM E] IN URINE 37.2 mg/L 11/23 H Specimen Type: URINE No comment entered. Ordering Provider: AILIN CHESTER Report Released Date/Time: Nov 23, 2022 11:58 AM Reporting Lab: [facility] [address] Performing Lab: [facility] [phone] [place] ([facility]) CBC LEUKOCYTES [#/VOLUME] IN BLOOD BY AUTOMATED COUNT 10.80 10*3/u L 4.0 - 11.0 11/23 Specimen Type: BLOOD No comment entered. Ordering Provider: AILIN CHESTER Report Released Date/Time: Nov 23, 2022 11:58 AM Reporting Lab: [place] [phone] Performing Lab: [address] ([facility]) CBC ERYTHROCYTE S [#/VOLUME] IN BLOOD BY AUTOMATED COUNT 3.87 10*6/u L 4.6 - 6.2 11/23 L Specimen Type: BLOOD No comment entered. Ordering Provider: AILIN CHESTER Report Released Date/Time: Nov 23, 2022 11:58 AM Reporting Lab: [facility] [phone] Performing Lab: [place] [phone] [place] ([facility]) CBC HEMOGLOBIN [MASS/VOLUM E] IN BLOOD 12.1 g/dL 13.5 - 17.9 11/23 L Specimen Type: BLOOD No comment entered. Ordering Provider: AILIN CHESTER Report Released Date/Time: Nov 23, 2022 11:58 AM Reporting Lab: [facility] [phone] Performing Lab: [facility] [phone] [place] [address] ([facility]OC) CBC HEMATOCRIT [VOLUME FRACTION] OF BLOOD BY AUTOMATED COUNT 37.5 41 - 54 11/23 L Specimen Type: BLOOD No comment entered. Ordering Provider: AILIN CHESTER Report Released Date/Time: Nov 23, 2022 11:58 AM Reporting Lab: [facility] [phone] Performing Lab: [address] ([facility]) CBC MCV [ENTITIC VOLUME] BY AUTOMATED COUNT 96.9 fL 80 - 100 11/23 Specimen Type: BLOOD No comment entered. Ordering Provider: AILIN CHESTER Report Released Date/Time: Nov 23, 2022 11:58 AM Reporting Lab: [facility] [phone] Performing Lab: [facility] [address] [place] ([facility]) CBC MCH [ENTITIC MASS] BY AUTOMATED COUNT 31.3 pg 27 - 33 11/23 Specimen Type: BLOOD No comment entered. Ordering Provider: AILIN CHESTER Report Released Date/Time: Nov 23, 2022 11:58 AM Reporting Lab: [facility] [address] Performing Lab: [facility] [phone] [place] ([facility]) CBC MCHC [MASS/VOLUM E] BY AUTOMATED COUNT 32.3 g/dL 32.0 - 37.5 11/23 Specimen Type: BLOOD No comment entered. Ordering Provider: AILIN CHESTER Report Released Date/Time: Nov 23, 2022 11:58 AM Reporting Lab: [facility] [address] Performing Lab: [facility] [address] [place] [facility]) CBC PLATELETS [#/VOLUME] IN BLOOD BY AUTOMATED COUNT 293 10*3/u L 150 - 400 11/23 Specimen Type: BLOOD No comment entered. Ordering Provider: AILIN CHESTER Report Released Date/Time: Nov 23, 2022 11:58 AM Reporting Lab: [facility] [address] Performing Lab: [facility] [phone] [place] [facility]) CBC PLATELET MEAN VOLUME [ENTITIC VOLUME] IN BLOOD BY AUTOMATED COUNT 10.3 fL 7.4 - 10.4 11/23 Specimen Type: BLOOD No comment entered. Ordering Provider: AILIN CHESTER Report Released Date/Time: Nov 23, 2022 11:58 AM Reporting Lab: [facility] [address] Performing Lab: [facility] [address] [place] [facility]) CBC ERYTHROCYTE DISTRIBUTIO N WIDTH [RATIO] BY AUTOMATED COUNT 13.2 11.5 - 14.5 11/23 Specimen Type: BLOOD No comment entered. Ordering Provider: AILIN CHESTER Report Released Date/Time: Nov 23, 2022 11:58 AM Reporting Lab: [facility] [address] Performing Lab: [facility] [address] [place] [facility]) COMPREHEN SIVE METABOLIC PANEL+MG CREATININE [MASS/VOLUM E] IN SERUM OR PLASMA 1.2 mg/dL 0.7 - 1.2 11/23 Specimen Type: PLASMA No comment entered. Ordering Provider: AILIN CHESTER Report Released Date/Time: Nov 23, 2022 11:58 AM Reporting Lab: [facility] [phone] Performing Lab: [facility] [address] [place] [facility]) COMPREHEN SIVE METABOLIC PANEL+MG UREA NITROGEN [MASS/VOLUM E] IN SERUM OR PLASMA 34 mg/dL 8 - 26 11/23 H Specimen Type: PLASMA No comment entered. Ordering Provider: AILIN CHESTER Report Released Date/Time: Nov 23, 2022 11:58 AM Reporting Lab: [facility] [address] Performing Lab: [facility] [phone] [place] [facility]) COMPREHEN SIVE METABOLIC PANEL+MG GLUCOSE [MASS/VOLUM E] IN SERUM OR PLASMA 54 mg/dL 70 - 100 11/23 L Specimen Type: PLASMA No comment entered. Ordering Provider: AILIN CHESTER Report Released Date/Time: Nov 23, 2022 11:58 AM Reporting Lab: [facility] [address] Performing Lab: [facility] [address] [place] [facility]) COMPREHEN SIVE METABOLIC PANEL+MG SODIUM [MOLES/VOLU ME] IN SERUM OR PLASMA 143 mmol/L 136 - 145 11/23 Specimen Type: PLASMA No comment entered. Ordering Provider: AILIN CHESTER Report Released Date/Time: Nov 23, 2022 11:58 AM Reporting Lab: [facility] [address] Performing Lab: [facility] [address] [place] [facility]) COMPREHEN SIVE METABOLIC PANEL+MG POTASSIUM [MOLES/VOLU ME] IN SERUM OR PLASMA 4.4 mmol/L 3.5 - 5.1 11/23 Specimen Type: PLASMA No comment entered. Ordering Provider: AILIN CHESTER Report Released Date/Time: Nov 23, 2022 11:58 AM Reporting Lab: [facility] [address] Performing Lab: [facility] [address] [place] [facility]) COMPREHEN SIVE METABOLIC PANEL+MG CHLORIDE [MOLES/VOLU ME] IN SERUM OR PLASMA 107 mmol/L 98 - 107 11/23 Specimen Type: PLASMA No comment entered. Ordering Provider: AILIN CHESTER Report Released Date/Time: Nov 23, 2022 11:58 AM Reporting Lab: [facility] [phone] Performing Lab: [facility] [address] [place] [facility]) COMPREHEN SIVE METABOLIC PANEL+MG CARBON DIOXIDE, TOTAL [MOLES/VOLU ME] IN SERUM OR PLASMA 23 mmol/L 22 - 29 11/23 Specimen Type: PLASMA No comment entered. Ordering Provider: AILIN CHESTER Report Released Date/Time: Nov 23, 2022 11:58 AM Reporting Lab: [facility] [address] Performing Lab: [facility] [address] [place] [facility]) COMPREHEN SIVE METABOLIC PANEL+MG CALCIUM [MASS/VOLUM E] IN SERUM OR PLASMA 9.7 mg/dL 8.4 - 10.2 11/23 Specimen Type: PLASMA No comment entered. Ordering Provider: AILIN CHESTER Report Released Date/Time: Nov 23, 2022 11:58 AM Reporting Lab: [facility] [address] Performing Lab: [facility] [address] [place] [facility]) COMPREHEN SIVE METABOLIC PANEL+MG PROTEIN [MASS/VOLUM E] IN SERUM OR PLASMA 7.2 g/dL 6.0 - 8.3 11/23 Specimen Type: PLASMA No comment entered. Ordering Provider: AILIN CHESTER Report Released Date/Time: Nov 23, 2022 11:58 AM Reporting Lab: [facility] [address] Performing Lab: [facility] [address] [place] [facility]) COMPREHEN SIVE METABOLIC PANEL+MG ALBUMIN [MASS/VOLUM E] IN SERUM OR PLASMA 4.1 g/dL 3.5 - 5.2 11/23 Specimen Type: PLASMA No comment entered. Ordering Provider: AILIN CHESTER Report Released Date/Time: Nov 23, 2022 11:58 AM Reporting Lab: [place] [phone] Performing Lab: [facility] [address] [place] [facility]) COMPREHEN SIVE METABOLIC PANEL+MG BILIRUBIN.T OTAL [MASS/VOLUM E] IN SERUM OR PLASMA 0.5 mg/dL 0.2 - 1.2 11/23 Specimen Type: PLASMA No comment entered. Ordering Provider: AILIN CHESTER Report Released Date/Time: Nov 23, 2022 11:58 AM Reporting Lab: [address] Performing Lab: [address] ([facility]) COMPREHEN SIVE METABOLIC PANEL+MG MAGNESIUM [MASS/VOLUM E] IN SERUM OR PLASMA 1.4 mg/dL 1.6 - 2.6 11/23 L Specimen Type: PLASMA No comment entered. Ordering Provider: AILIN CHESTER Report Released Date/Time: Nov 23, 2022 11:58 AM Reporting Lab: [place] [phone] Performing Lab: [place] [phone] [place] [facility]) COMPREHEN SIVE METABOLIC PANEL+MG ANION GAP IN SERUM OR PLASMA 13 mmol/L 5 - 15 11/23 Specimen Type: PLASMA No comment entered. Ordering Provider: AILNI CHESTER Report Released Date/Time: Nov 23, 2022 11:58 AM Reporting Lab: [facility] [address] Performing Lab: [address] ([facility]) COMPREHEN SIVE METABOLIC PANEL+MG ALKALINE PHOSPHATASE [ENZYMATIC ACTIVITY/VO LUME] IN SERUM OR PLASMA 87 U/L 40 - 150 11/23 Specimen Type: PLASMA No comment entered. Ordering Provider: AILIN CHESTER Report Released Date/Time: Nov 23, 2022 11:58 AM Reporting Lab: [facility] [address] Performing Lab: [facility] [id number] [place] ([facility]) COMPREHEN SIVE METABOLIC PANEL+MG ALANINE AMINOTRANSF ERASE [ENZYMATIC ACTIVITY/VO LUME] IN SERUM OR PLASMA 28 U/L 11/23 Specimen Type: PLASMA No comment entered. Ordering Provider: AILIN CHESTER Report Released Date/Time: Nov 23, 2022 11:58 AM Reporting Lab: [address] Performing Lab: [place] [id number] [place] ([facility]) COMPREHEN SIVE METABOLIC PANEL+MG ASPARTATE AMINOTRANSF ERASE [ENZYMATIC ACTIVITY/VO LUME] IN SERUM OR PLASMA 33 U/L 11/23 Specimen Type: PLASMA No comment entered. Ordering Provider: AILIN CHESTER Report Released Date/Time: Nov 23, 2022 11:58 AM Reporting Lab: [place] [address] Performing Lab: [address] [place] ([facility]) COMPREHEN SIVE METABOLIC PANEL+MG GLOMERULAR FILTRATION RATE/1.73 SQ M.PREDICTED [VOLUME RATE/AREA] IN SERUM, PLASMA OR BLOOD BY CREATININE- BASED FORMULA (CKD-EPI 2020) 61 11/23 Specimen Type: PLASMA No comment entered. Ordering Provider: AILIN CHESTER Report Released Date/Time: Nov 23, 2022 11:58 AM Reporting Lab: [facility] [id number] Performing Lab: [place] [id number] [place] ([facility]) HEMOGLOBI N A1C HEMOGLOBIN A1C/HEMOGLO BIN.TOTAL [...] 2022 11:58 AM Reporting Lab: [facility] [id number] Performing Lab: [facility] [phone] [place] ([facility]) LIPID PANEL,NON -FASTING CHOLESTEROL [MASS/VOLUM E] IN SERUM OR PLASMA 130 mg/dL 11/23 Specimen Type: PLASMA No comment entered. Ordering Provider: AILIN CHESTER Report Released Date/Time: Nov 23, 2022 11:58 AM Reporting Lab: [facility] [id number] Performing Lab: [facility] [address] [place] ([facility]) LIPID PANEL,NON -FASTING CHOLESTEROL IN HDL [MASS/VOLUM E] IN SERUM OR PLASMA 39 mg/dL 11/23 L Specimen Type: PLASMA No comment entered. Ordering Provider: AILIN CHESTER Report Released Date/Time: Nov 23, 2022 11:58 AM Reporting Lab: [facility] [address] Performing Lab: [facility] [address] [place] ([facility]) LIPID PANEL,NON -FASTING CHOLESTEROL IN LDL [MASS/VOLUM E] IN SERUM OR PLASMA BY CALCULATION 73 mg/dL 11/23 Specimen Type: PLASMA No comment entered. Ordering Provider: AILIN CHESTER Report Released Date/Time: Nov 23, 2022 11:58 AM Reporting Lab: [facility] [address] Performing Lab: [facility] [address] [place] ([facility]) LIPID PANEL,NON -FASTING CHOLESTEROL IN VLDL [MASS/VOLUM E] IN SERUM OR PLASMA BY CALCULATION 18 mg/dL 11/23 Specimen Type: PLASMA No comment entered. Ordering Provider: AILIN CHESTER Report Released Date/Time: Nov 23, 2022 11:58 AM Reporting Lab: [facility] [address] Performing Lab: [facility] [id number] [place] [address] (CBOC) LIPID PANEL,NON -FASTING CHOLESTEROL NON HDL [MASS/VOLUM E] IN SERUM OR PLASMA 91 mg/dL 11/23 Specimen Type: PLASMA No comment entered. Ordering Provider: AILIN CHESTER Report Released Date/Time: Nov 23, 2022 11:58 AM Reporting Lab: [facility] [address] Performing Lab: [facility] [address] [place] (CB) LIPID PANEL,NON -FASTING TRIGLYCERID E [MASS/VOLUM E] IN SERUM OR PLASMA 92 mg/dL 11/23 Specimen Type: PLASMA No comment entered. Ordering Provider: AILIN CHESTER Report Released Date/Time: Nov 23, 2022 11:58 AM Reporting Lab: [facility] [address] Performing Lab: [facility] [address] [place] (OC) TSH W/REFLEX TO FREE T4 THYROTROPIN [UNITS/VOLU ME] IN SERUM OR PLASMA 4.59 u[IU]/ mL 0.35 - 4.94 11/23 Specimen Type: PLASMA No comment entered. Ordering Provider: AILIN CHESTER Report Released Date/Time: Nov 23, 2022 11:58 AM Reporting Lab: [facility] [address] Performing Lab: [facility] [address] [place] (CB) Vital Signs Combined list of inpatient and outpatient Vital Signs from Department of Defense and Veterans Affairs, ranging from 12 months to all on record, depending upon the facility. Vital Sign Value Date Comments Source SYSTOLIC BLOOD PRESSURE 103 03/11/2024 11:40:16 [place] ([facility]) DIASTOLIC BLOOD PRESSURE 62 03/11/2024 11:40:16 [place] ([facility]) PULSE OXIMETRY 98 03/11/2024 11:40:16 [place] ([facility]) WEIGHT 185.8 03/11/2024 11:40:16 [place] ([facility]) BMI 27kg/m2 03/11/2024 11:40:16 [place] ([facility]) PAIN 0 03/11/2024 11:40:16 [place] ([facility]) TEMPERATURE 97.9 03/11/2024 11:40:16 [place] ([facility]) PULSE 85 03/11/2024 11:40:16 [place] ([facility]) RESPIRATION 18 03/11/2024 11:40:16 [place] ([facility]) SYSTOLIC BLOOD PRESSURE 116 11/08/2023 09:55:16 [place] ([facility]) DIASTOLIC BLOOD PRESSURE 69 11/08/2023 09:55:16 [place] ([facility]) PULSE OXIMETRY 97 11/08/2023 09:55:16 [place] ([facility]) WEIGHT 166.1 11/08/2023 09:55:16 [place] ([facility]) BMI 25kg/m2 11/08/2023 09:55:16 [place] ([facility]) PAIN 0 11/08/2023 09:55:16 [place] ([facility]) HEIGHT 69 11/08/2023 09:55:16 [place] ([facility]) TEMPERATURE 98.7 11/08/2023 09:55:16 [place] ([facility]) PULSE 72 11/08/2023 09:55:16 [place] ([facility]) RESPIRATION 16 11/08/2023 09:55:16 [place] ([facility]) Encounters Combined list of: 1) Encounters from Department of [facility] facilities going back up to thelast 18 months. 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 Location Location Details Encounter Type Encounter Number Reason For Visit Attending Provider ADM Date DC Date Status Disposition Source [facility] Outpatient Encounter [id number] 09/20 [facility] Outpatient Encounter [id number] [id number] 11/11 [facility] Outpatient Encounter [id number] ZARI POWER 11/16 [facility] Outpatient Encounter [id number] 11/21 [facility] OFFICE O/P EST MOD 30-39 MIN [id number] Diagnos is: ICD-10- CM Z00.00 Encntr for general adult medical exam w/o abnorma l finding s
CANDELARIO CHESTER 11/23 [place] ([facility] [place] ([facility] GAIT TRAINING THERAPY [id number] Diagnos is: ICD-10- CM R26.89 Other abnorma lities of gait and mobilit y
OMAYRA JAMESON NTRIVKA V 11/23 [place] ([facility]) [place] [facility] Outpatient Encounter [id number] SA JAMARI AJMESON R 12/11 [facility] [place] [facility] Out[facility] Encounter [id number] 12/25 [place] [place] [facility] Outpatient Encounter [id number] SA JAMARI JAMESON R 12/28 [place] [facility] [place] [facility] Outpatient Encounter [id number] 01/05 [place] [facility] [place] [facility] Outpatient Encounter [id number] 01/11 [place] [place] [facility] Outpatient Encounter [id number] 01/16 [place] [facility] [place] ([facility]) OFFICE O/P EST HI 40-54 MIN [id number] Diagnos is: ICD-10- CM I50.9 Heart failure , unspeci fied
CANDELARIO CHESTER 01/23 [place] [facility] [place] [facility] Outpatient Encounter [id number] Marcus POTTS I 01/24 [facility] [place] [facility] Outpatient Encounter [id number] Danica TORRE 02/05 [place] [facility] [place] [facility] Outpatient Encounter [id number] 02/09 [place] [facility] [place] [facility] Outpatient Encounter [id number] Danica TORRE 02/09 [place] [facility] [place] [facility] Outpatient Encounter [id number] 02/14 [place] [facility] [place] [facility] Outpatient Encounter [id number] 02/15 [place] [facility] [place] [facility] Outpatient Encounter [id number] 02/19 [place] [facility] [place] [facility] Outpatient Encounter [id number] 02/20 [place] [facility] [place] [facility] Outpatient Encounter [id number] 02/20 [place] [facility] [place] [facility] Outpatient Encounter [id number] 02/20 [place] [facility] [place] [facility] Outpatient Encounter [id number] 02/20 [place] [facility] [place] [facility] Outpatient Encounter [id number] 02/21 [place] [facility] [place] [facility] QNHP OL DIG ASSMT&MGMT 5-10 [id number] Diagnos is: ICD-10- CM E11.9 Type 2 diabete s mellitu s without complic ations< br/> HARDER,SIVA LY 02/22 [facility] PRO PHONE CALL 11-20 MIN [id number] Diagnos is: ICD-10- CM I50.9 Heart failure , unspeci fied
JERMAINE ALCANTAR ANDON M 02/23 [place] [facility] [place] [facility] Outpatient Encounter [id number] 02/26 [facility] [facility] [place] [facility] Outpatient Encounter [id number] 03/01 [place] [facility] [place] [facility] Outpatient Encounter [id number] 03/05 [place] [facility] [place] [facility] Outpatient Encounter [id number] SA RA Sandra JAMESON 03/09 [place] [facility] [place] [facility] Outpatient Encounter [id number] 03/14 [facility] [place] [facility] Outpatient Encounter [id number] SA JAMARI JAMESON R 04/12 [facility] [place] [facility] Outpatient Encounter [id number] SA JAMARI JAMESON R 04/16 [facility] [place] [facility] Outpatient Encounter [id number] SA JAMARI JAMESON R 05/01 [facility] [place] [facility] Outpatient Encounter [id number] 07/11 [facility] [place] [facility] Outpatient Encounter [id number] [facility] [place] [facility] Outpatient Encounter [id number] 07/12 [facility] PRO PHONE CALL 5-10 MIN [id number] Diagnos is: ICD-10- CM 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
VIV BARFIELD 07/19 [facility] HEARING AID REPAIR/MOD IFYING [id number] Diagnos is: ICD-10- CM 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
CARY CORCORAN 08/09 [facility] HEARING AID FITTING/CH ECKING [id number] Diagnos is: ICD-10- CM 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
Sy MAKI 09/17 [facility] Outpatient Encounter [id number] 10/17 [facility] ([facility]) OFFICE O/P EST HI 40 MIN [id number] Diagnos is: ICD-10- CM E11.9 Type 2 diabete s mellitu s without complic ations< br/> CANDELARIO CHESTER 11/07 [place] [place] [facility] PT EVAL MOD COMPLEX 30 MIN [id number] Diagnos is: ICD-10- CM Z74.09 Other reduced mobilit y
OMAYRA JAMESON NTER V 12/17 [place] [facility] Outpatient Encounter [id number] 01/03 [facility] Outpatient Encounter [id number] 01/09 [facility] WHEELCHAIR MNGMENT TRAINING [id number] Diagnos is: ICD-10- CM R53.1 Weaknes s
ANDERS EATON R 01/29 [facility] Outpatient Encounter [id number] 01/30 [facility] HEARING AID CHECK BOTH EARS [id number] Diagnos is: ICD-10- CM Z46.1 Encount er for fitting and adjustm ent of hearing aid<br/ > SUZY BLACK AEYousuf F 02/01 [facility] Outpatient Encounter [id number] SA JAMARI JAMESON R 02/11 [facility] Outpatient Encounter [id number] 02/25 [facility] Outpatient Encounter [id number] JYOTSNA SMART 03/10 [facility] OFFICE O/P EST MOD 30 MIN [id number] Diagnos is: ICD-10- CM L89.623 Pressur e ulcer of left heel, stage 3
CANDELARIO CHESTER 03/11 [place] [facility] [place] [facility] Outpatient Encounter [id number] Danica TORRE 03/12 [facility] [place] [facility] Outpatient Encounter [id number] 03/12 [facility] Social History Combined list of available smoking, tobacco, and other social history from Department of Defense and Veterans Affairs facilities. Social History Type Response Date Comment Sourc e Tobacco smoking status WVIS VA-TOBACCO QUIT 15 YRS OR MORE 11/08/2023 [place] [facility] History of tobacco use VA-TOBACCO FORMER USER 11/08/2023 [place] [facility] History of tobacco use VA-TOBACCO QUIT 1 5 YRS OR MORE 11/23/2022 [place] [facility] History of tobacco use VA-TOBACCO FORMER USER 11/29/2021 [place] [facility] History of tobacco use VA-TOBACCO FORMER USER 10/21/2020 [place] [facility]) Plan of Care List of future care activities from Department [facility] facilities. Additional future care activities may be listed in the Assessment and Plan section. Date/Time Care Activity Care Activity Detail Facili ty 03/20/2024 AMBULATORY - REHAB MEDICINE AMBULATORY - REHAB MEDICINE [facility] 03/20/2024 AMBULATORY - SURGERY AMBULATORY - SURGERY [facility] 04/07/2024 AMBULATORY - REHAB MEDICINE AMBULATORY - REHAB MEDICINE [facility] 02/21/2024 Consult Order SURFACING MACHINE OPERATOR REHAB OUT PT SAFE PASSENGER Cons Glass Wool Blanket Machine Feeder's Choice [place] [facility] 03/11/2024 Consult Order COMMUNITY CARE-W OUND CARE [place] Cons [place] Machine Feeder's Choice [place] [facility] 03/16/2024 Consult Order [facility] INT EREST-OUTPT Cons [place]et Machine Feeder's Choice [place] ([facility])
--- OUTSIDE RECORDS SUMMARY | 2024-03-18 12:43 | XMS_ITS | Encounter Summary ---
Author Name Department of Vetera Affairs ([place]) Organization [facility] of Vetera [facility] ([place]) Address [address] [place] [address] Care Team Providers Care Small Business Representative Name Role Phone JIMENEZ CHESTER Primary Care [...] Cherry's Name Patient's Relationship to Policy Cherry [facility] (WNR) MEDICARE ADVANTAGE [facility] (WNR) May 14, 2020 [id number] [phone] PITER CASAS ERD PATIENT Selected Encounter This section includes the information on record at [place] for the Encounter. Date/Time Encounter Type Encounter Description Reason Pro vider Source Mar 12, 2024 09:42 AM Outpatient Encounter COMMUNITY CARE CONSULT IHE [...] Date/Time Appointment Type Appointme nt Facility Name Mar 20, 2024 09:00 AM AMBULATORY - RE[facility]AB [facility]ICIN E [facility] Mar 20, 2024 02:30 PM AMBULATORY - SURGERY [facility] Apr 07, 2024 10:30 AM AMBULATORY - REHAB MEDICIN E [facility] Active, Pending, and Scheduled Orders This section includes a listing of several types of active, pending, and scheduled orders, including clinic medications orders, diagnostic test orders, procedure orders and consult orders; where the start date of the order is 45 days before the date of the Encounter or 45 days after the date of theEncounter. The data comes from all [facility]. Test Date/Time Test Type Test Details Facility Name Feb 21, 2024 11:45 AM Consult Order DIRECTOR OF LEARNING GIUSEPPE AB OUTPT SAFE PASSENGER Cons State Assessed Properties Director's Choice [place] ([facility]) Mar 11, 2024 12:16 PM Consult Order COMMUNITY CARE-WOUND CARE [place] Cons State Assessed Properties Director's [facility] ([facility]) Mar 16, 2024 06:41 PM Consult Order BEST MEDIC AL INTEREST-OUTPT Cons State Assessed Properties Director's [facility] ([facility]) Encounter Notes: All associated encounter notes This section contains the clinical notes associated to the Encounter. Date/Time Encounter Note(s) Provider Source Mar 12, 2024 09:42 AM NONVA NOTE: LOCAL TITLE: COMMUNITY CARE PRE-AUTH LETTER (AUTOPRINT) STANDARD TITLE: NONVA NOTE DATE OF NOTE: MAR 12, 2024@09:42 ENTRY DATE: MAR 12, 2024@09:42:47 AUTHOR: ROBINSON NAVARRETE COSIGNER: URGENCY: STATUS: COMPLETED Feb JUNG CASAS [address], [place] [address] Dear JUNG CASAS, Your VA provider has referred you to a provider within the community for care. Your medical care for Wound Care has been authorized with the community care provider listed below. DO NOT REPORT TO THE [facility] Provider info: Care has been approved for the following vendor: Office name, address, and phone number: [address] [address] Please contact the identified provider to schedule your community appointment. If you need assistance with this appointment, please call your facility community care office [facility] Office of Community Care at [phone] during the hours of 8:30AM - 3:00PM. Please follow up with your local [facility] community care office once this is scheduled. This step is needed to ensure your referral duration is maximized and the [place] has accurate referral information for billing purposes. Authorization Number: [id number] Referral Issue Date: Feb Expiration Date: Aug (subject to change based on first appointment) If you are unable to schedule this appointment or the appointment is no longer needed, please contact the community provider above for notification/rescheduling and then call the [facility] Office of Community Care at [phone] during the hours of 8:30AM - 3:00PM. If you need additional care/services not mentioned above or your authorization has and additional care is needed, please contact your primary care provider for a new referral. To review all care/service(s) approved under your referral, please go to the following link: [facility] [place] Portal(iJukebox) Co-Payments: If you are required to pay a VA co-payment, you will be billed by the [place] for each authorized visit that you attend. However, you are NOT REQUIRED to make co-payments to a community provider. Thank you for the opportunity to serve you. Sincerely, [place] Community Care (CROW) /riccardo/ ROBINSON NAVARRETE MSA Signed: 03/12/2024 09:[address] [facility]
--- OUTSIDE RECORDS SUMMARY | 2024-03-18 12:43 | XMS_ITS | Encounter Summary ---
Author Name [facility] [place]) Organization [facility] of [place] [place] Affairs ([place] Address [address] [place] [address] Care Team Providers Care Hand Cigar Making Supervisor Name Role Phone JIMENEZ CHESTER Primary [...] Cherry's Name Patient's Relationship to Policy Cherry [facility] (WNR) MEDICARE ADVANTAGE [facility] (WNR) May 14, 2020 [id number] [phone] PITER BOWERS ERD PATIENT Selected Encounter This section includes the information on record at [place] for the Encounter. Date/Time Encounter Type Encounter Description Reason Provider Source Mar 12, 2024 08:55 AM Outpatient Encounter COMMUNITY CARE CONSULT ARACELI TORRE E Encounter Template Text not used by [place] Plan of Treatment: Future Appointments (+ 6 [...] 20 appointments. The data comes from all [facility]. Appointment Date/Time Appointment Type Appointme nt Facility Name Mar 20, 2024 09:00 AM AMBULATORY - REHAB MEDICIN E [facility] Mar 20, 2024 02:30 PM AMBULATORY - SURGERY [facility] Apr 07, 2024 10:30 AM AMBULATORY - REHAB MEDICIN E [facility] Active, Pending, and Scheduled Orders This section includes a listing of several types of active, pending, and scheduled orders, including clinic medications orders, diagnostic test orders, procedure orders and consult orders; where the start date of the order is 45 days before the date of the Encounter or 45 days after the date of theEncounter. The data comes from all [facility]. Test Date/Time Test Type Test Details Facility Name Feb 21, 2024 11:45 AM Consult Order HOSPITALIST NOCTURNIST PHYSICIAN GIUSEPPE AB OUTPT SAFE PASSENGER Cons Icing Machine Operator's [facility] ([facility]) Mar 11, 2024 12:16 PM Consult Order COMMUNITY CARE-WOUND CARE SC Cons Icing Machine Operator's [facility] ([facility]) Mar 16, 2024 06:41 PM Consult Order [facility] INTEREST-OUTPT Cons Icing Machine Operator's [facility] ([facility]) Encounter Notes: All associated encounter notes This section contains the clinical notes associated to the Encounter. Date/Time Encounter Note(s) Provider Source Mar 12, 2024 09:00 AM NONVA NOTE: LOCAL TITLE: COMMUNITY CARE-CARE COORDINATION PLAN NOTE STANDARD TITLE: NONVA NOTE DATE OF NOTE: MAR 12, 2024@09:00 ENTRY DATE: MAR 12, 2024@09:00:16 AUTHOR: ARACELI TORRE EXP COSIGNER: URGENCY: STATUS: COMPLETED SUBJECT: Community Care Hardship Determination Consult # [id number] COMMUNITY CARE-CARE COORDINATION PLAN NOTE Has ADDENDA PLEASE ADDRESS Please note that Community Care Hardship Determination Consult # [id number] 02/10/2024. ALBA-Hardship request approved by COS or designee: 12 months HDL-Hardship decision letter sent to [place]: 02/09/[address] new consult if this hardship determination is still needed. /riccardo/ Araceli Torre RN, BSN, CCM managing partner digital content marketing [place] Prorate Clerk Signed: 03/12/2024 09:02 Receipt Acknowledged By: 03/16/2024 18:40 /es/ JIMENEZ CHESTER MD PHYSICIAN 03/12/2024 13:18 /riccardo/ Aamir Hazel RN [facility] 03/16/2024 ADDENDUM STATUS: COMPLETED Best medical interest consult placed. /riccardo/ JIMENEZ CHESTER MD PHYSICIAN Signed: 03/16/2024 18:41 ARACELI TORRE [facility] Mar 12, 2024 08:55 AM NONVA NOTE: LOCAL TITLE: COMMUNITY CARE-CARE COORDINATION PLAN NOTE STANDARD TITLE: NONVA NOTE DATE OF NOTE: MAR 12, 2024@08:55 ENTRY DATE: MAR 12, 2024@08:55:22 AUTHOR: ARACELI TORRE EXP COSIGNER: URGENCY: STATUS: COMPLETED SUBJECT: Community Care Wound Care Consult No: [id number] Community Care Consult: Community Care Wound Care Consult No: [id number] Chief Complaint: [place] is a with diabetes and history of right LE amputation. He has a new ulcer on the left heel that has worsened over the last 10 days. This is now open and weeping some. Request wound care services. Patient Admitted? No Level of Care Coordination Complex/Chronic Care Coordination was determined from: Chart Review Facility Community Care Office Contact Care Coordination Point of Contact: Araceli Torre Services: Moderate Care Coordination Services Case Management, if appropriate Direct communications with interdisciplinary team Plan: assessed as needing complex care coordination which may include case management if appropriate, direct communication with interdisciplinary team and/or , chronic disease management if appropriate. and/or caregiver provided direct contact information for community care department by letter. This letter assists with any follow up needs or additional requests for services. to schedule and attend appt. Records will be reviewed by clinical staff and future needs/updated plan of care determined at that time. Multiple comorbidities noted. Proceed with scheduling Placed as HR-High risk consult Placed on [facility] same Day tracker. /riccardo/ Araceli Torre RN, BSN, CCM managing partner digital content marketing [place] Prorate Clerk Signed: 03/12/2024 08:57 ARACELI TORRE [facility]
--- OUTSIDE RECORDS SUMMARY | 2024-03-18 12:43 | XMS_ITS | Encounter Summary ---
Author Name [facility] [place] Organization [place] Address [address] [place] [address] Care Team Providers Care Manpower Development Specialist Manager Name Role Phone JIMENEZ CHESTER Primary Care [...] Policy Cherry [facility] (WNR) MEDICARE ADVANTAGE [facility] (WNR) May 14, 2020 [id number] [phone] PITER CASAS ERD PATIENT Selected Encounter This section includes the information on record at [place] for the Encounter. Date/Time Encounter Type Encounter Description Reason Pro vider Source Mar 10, 2024 12:00 PM Outpatient Encounter TELEPHONE TRIAGE JYOTSNA SMART Encounter Template Text not used by [place] [...] 20 appointments. The data comes from all [facility] treatment facilities. Appointment Date/Time Appointment Type Appointme nt Facility Name Mar 11, 2024 11:30 AM AMBULATORY - MEDICINE [facility] ([facility]) Mar 20, 2024 09:00 AM AMBULATORY - REHAB MEDICIN [facility] Mar 20, 2024 02:30 PM AMBULATORY - SURGERY [facility] Apr 07, 2024 10:30 AM AMBULATORY - REHAB MEDICIN [facility] Active, Pending, and Scheduled Orders This section includes a listing of several types of active, pending, and scheduled orders, including clinic medications orders, diagnostic test orders, procedure orders and consult orders; where the start date of the order is 45 days before the date of the Encounter or 45 days after the date of theEncounter. The data comes from all [facility]. Test Date/Time Test Type Test Details Facility Name Feb 21, 2024 11:45 AM Consult Order WINDOW AIR CONDITIONER INSTALLER GIUSEPPE AB OUTPT SAFE PASSENGER Cons Carding Machine [facility]eder[facility] [place] ([facility]) Mar 11, 2024 12:16 PM Consult Order COMMUNITY CARE-WOUND CARE [place] Cons Carding Machine [facility] ([facility]) Mar 16, 2024 06:41 PM Consult Order BEST MEDIC AL INTEREST-OUTPT Cons Carding Machine Feeder[facility] ([facility]) Encounter Notes: All associated encounter notes This section contains the clinical notes associated to the Encounter. Date/Time Encounter Note(s) Provider Source Mar 10, 2024 12:00 PM RN PROGRESS NOTE: LOCAL TITLE: CCC: CLINICAL TRIAGE STANDARD TITLE: RN PROGRESS NOTE DATE OF NOTE: MAR 10, 2024@12:00:34 ENTRY DATE: MAR 10, 2024@12:00:34 AUTHOR: JYOTSNA SMART EXP COSIGNER: URGENCY: STATUS: COMPLETED Patient Demographics Patient Name: JUNG CASAS Patient Primary Address: [address] [place] [address] Patient Primary Phone: [phone] Patient : 1940 Patient Age: 83 Call Back Number: [phone] Caller/Recipient Relation to Patient: Other If Other Describe Relation to Patient: Spouse Caller Name: Shellie Emergency Contact: SHELLIE CASAS Triage Summary Chief Complaint: Pressure Ulcer System WHEN: Within 8 Hours Nurse's Recommendation / WHEN: Within 24 Hours System WHERE: Urgent care center Nurse's Recommendation / WHERE: Clinic/[facility] Nursing Plan and Disposition Referred Patient for In-Person Appt Transferred patient to Sched & Admin-Apt Nurse Summary Nurse Summary: PATIENT CONCERN/DURATION/ONSET: [place] spouse Shellie is calling to get Authorization for [facility] appt. Shellie reports that the had a non healing pressure ulcer on his left heel, which [facility] was managing. ''It closed. A week ago we noticed it being red. I checked it today and it is opened. The size of redness is about a quarter size and size of the opening is about a dime size. The dressing on it did have yellow drainage and he is reporting pain.'' Shellie denies the to have fevers, nausea, chills, vomiting, and sweats. See [facility] script for symptom assessment, pertinent positives and negatives. WHAT HAS PATIENT TRIED TO TREAT THE SYMPTOMS: Dressing, padded bandaid and wound medication HISTORY/PREVIOUS TREATMENT: Pressure Ulcer, DMII, History of amputation of right leg through tibia and fibula WHAT IS PATIENT GOAL FOR THE CALL: Clinical eval, requesting for authorization of wound management to [facility] Was Virtual Care Visit considered (TELE or VVC)? 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 Educated on the reasoning for triage recommendation, risks and benefits. agreeable to proceed with scheduling. Warm hand off to appropriate scheduling, appts available with PACT within time frame. Appointment scheduled. Educated on education as listed below. Discussed with verbal understand of type of symptoms when to call triage back, seek ER//[phone] eval. Best contact for [place] is [phone] (Verified). This note was created by a V23 [facility] Connect RN. Please do not alert this nurse by adding as a signer for future communications. Alerts are not monitored by this user, please reach out to [facility] Leadership instead if indicated. Clinical Contact Center Codes Clinic/Location: V23 [facility] PHONE CCC RN Decision Support System Output: Triage Complete Triage Date: 03/10/2024, 11:52 AM Triage Note: Decision Support Tool Used: [facility] Phone Triage 10 Mar 2024 16:43:32 +0000 [facility] Demographics 83 y/o Male Results CC: Pressure Ulcer Software suggested: Within 8 Hours Software suggested follow-up location: Urgent care center, consider virtual care Values and Measures Duration of CC: 1 Weeks Positive Responses HPI: skin ulcer erythema, worsening HPI: skin ulcer, purulent drainage MEDS: insulin PMH: diabetes VS: temperature not taken Negative Responses Denies: HPI: fever, subjective Denies: HPI: vomiting Denies: HPI: weakness, with diaphoresis Education Log Home care for a skin ulcer includes: Monitor Dressing Avoid pressure on music director daily To call back for new or worsening symptoms Please seek ER if you endorse any of the following symptoms: Severe pain around the site Pus draining from the ulcer Fever over 101 degrees F (38.3 C) SOB Sudden weakness, chills, sweats Confusion IMPORTANT: This note was created by [facility] Clinical Contact Center staff. Please do not alert the staff member by adding them as a signer for future communications. Alerts are not monitored by this user. /riccardo/ JYOTSNA SMART RN VISN 23 DAYTIME LIFE SCIENCES MANAGER Signed: 03/10/2024 12:00 JYOTSNA SMART [facility]
--- OUTSIDE RECORDS SUMMARY | 2024-03-18 12:43 | XMS_ITS | Encounter Summary ---
Author Name [facility] [place] Organization [place] Address [address] [place] [address] Care Team Providers Care Refrigerator Mover Name Role Phone JIMENEZ CHESTER Primary Care [...] Cherry's Name Patient's Relationship to Policy Cherry [facility] (WNR) MEDICARE ADVANTAGE [facility] (WNR) May 14, 2020 [id number] [phone] PITER CASAS ERD PATIENT Selected Encounter This section includes the information on record at [place] for the Encounter. Date/Time Encounter Type Encounter Description Reason Provider Source Mar 11, 2024 11:30 AM OFFICE O/P EST MOD 30 MIN PRIMARY CARE/MEDICINE ICD-10-CM L89.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, stage 3 JIMENEZ CHESTER [place] Encounter Template Text not used by [place] Assessments - Encounter Diagnoses This section includes the primary and secondary diagnoses documented for the Encounter. Date/Time Primary/Secondary Diagnosis Diagnosis Name Provider Source Mar 11, 2024 02:18 PM PRIMARY Pressure ulcer of left heel, stage 3 JIMENEZ CHESTER ([facility]) Mar 11, 2024 02:18 PM SECONDARY Type 2 diabetes mellitus without complications JIMENEZ CHESTER [place] ([facility]) Plan of Treatment: Future Appointments (+ 6 months) and Future Tests (+/- 45 days) The Plan of Treatment section includes future care activities for the patient from all [place] [facility]. This section includes future appointments and future orders which are active, pending or scheduled. Future Appointments This section includes appointments that were scheduled to occur 6 months from the date of the Encounter, up to a maximum of 20 appointments. The data comes from all [facility]. Appointment Date/Time Appointment Type Appointme nt Facility Name Mar 20, 2024 09:00 AM AMBULATORY - REHAB MEDICIN E [facility] Mar 20, 2024 02:30 PM AMBULATORY - SURGERY [facility] Apr 07, 2024 10:30 AM AMBULATORY - REHAB MEDICIN [facility] Active, Pending, and Scheduled Orders This section includes a listing of several types of active, pending, and scheduled orders, including clinic medications orders, diagnostic test orders, procedure orders and consult orders; where the start date of the order is 45 days before the date of the Encounter or 45 days after the date of the Encounter. The data comes from all [facility]. Test Date/Time Test Type Test Details Facility Name Feb 21, 2024 11:45 AM Consult Order MECHANIC SENIOR GIUSEPPE AB OUTPT SAFE PASSENGER Cons Medical Device Sales Consultant's [facility] ([facility]) Mar 11, 2024 12:16 PM Consult Order COMMUNITY CARE-WOUND CARE SC Cons Medical Device Sales Consultant's [facility] ([facility]) Mar 16, 2024 06:41 PM Consult Order BEST MEDIC AL INTEREST-OUTPT Cons Medical Device Sales Consultant's [facility] ([facility]) Vital Signs: All taken on the encounter date This section contains inpatient and outpatient Vital Signs collected on the date of the Encounter. Date/Time Temperature Pulse Blood Pressure Respiratory Rate SP02 Pain Height Weight Body Mass Index Source Mar 11, 2024 11:40 AM 97.9 85 103/62 18 98 0 185.8 27 [facility] ([facility]) Social History: Smoking Status (Most current) and Tobacco Use (All prior to encounter date) This section includes the most current, and the historical, smoking and tobacco- related health factors from the [place] facility where the Encounter took place. Current Smoking Status This section includes the most current smoking, or tobacco-related health factor, from the [place] facility where the Encounter took place. Date/Time Current Smoking Status Comment Federico armenta Nov 08, 2023 10:00 AM VA-TOBACCO FORMER USER [place] ([facility]) Tobacco Use History This section includes a history of the smoking, or tobacco-related health factors, that were collected on or before the date of the Encounter. The data comes from the [place] facility where the Encounter took place. Date/Time Smoking Status/Tobacco Use Comment F acility Nov 08, 2023 10:00 AM VA-TOBACCO QUIT 15 YRS OR MORE [place] ([facility]) Nov 23, 2022 11:00 AM VA-TOBACCO FORMER USER [place] ([facility]) Nov 23, 2022 11:00 AM VA-TOBACCO QUIT 15 YRS OR MORE [place] ([facility]) Nov 29, 2021 10:00 AM VA-TOBACCO FORMER USER [place] ([facility]) Nov 29, 2021 10:00 AM VA-TOBACCO QUIT 15 YRS OR MORE [place] ([facility]) Oct 21, 2020 10:30 AM VA-TOBACCO FORMER USER [place] ([facility]) Oct 21, 2020 10:30 AM VA-TOBACCO QUIT 15 YRS OR MORE [place] ([facility]) Encounter Notes: All associated encounter notes This section contains the clinical notes associated to the Encounter. Date/Time Encounter Note(s) Provider Source Mar 11, 2024 11:55 AM PRIMARY CARE NOTE: LOCAL TITLE: CB PROGRESS NOTE-[place] STANDARD TITLE: PRIMARY CARE NOTE DATE OF NOTE: MAR 11, 2024@11:55 ENTRY DATE: MAR 11, 2024@08:56:48 AUTHOR: JIMENEZ CHESTER EXP COSIGNER: URGENCY: STATUS: COMPLETED Type of Visit: Face to Face Reason for Visit: Pressure ulcer heel HPI: 83 year-old MALE here for concerns regarding a pressure ulcer. We received a phone call from clinical triage with the following concerns: PATIENT CONCERN/DURATION/ONSET: spouse Shellie is calling to get Authorization for [facility] appt. Shellie reports that the had a non healing pressure ulcer on his left heel, which [facility] was managing. ''It closed. A week ago [...] fevers, nausea, chills, vomiting, and sweats. See [facility] script for symptom assessment, pertinent positives and negatives. WHAT HAS PATIENT TRIED TO TREAT THE SYMPTOMS: Dressing, padded bandaid and wound medication HISTORY/PREVIOUS TREATMENT: Pressure Ulcer, DMII, History of amputation of right leg through tibia and fibula WHAT IS PATIENT GOAL FOR THE CALL: Clinical eval, requesting for authorization of wound management to [facility] has had wound care photos completed already prior to provider presence. Noticed some redness with a white center that had surrounding redness. Over the course of 10 days this became an ulcer. They have received wound care services in the community and then had home care services for the regular wound care. Co-managed: VA PCP Home medications: reviewed and updated Review of systems: otherwise negative Past Medical History: 1. Coronary artery disease 2. Congestive heart failure with reduce Ejection fraction (10-20%) 3. Hypertension 4. Hyperlipidemia 5. Type 2 diabetes 6. peripheral neuropathy 7. Long-term current use of insulin 8. Macular edema 9. Exposure to potentially hazardous substance 10. Hypothyroidism 11. History of amputation of right leg through tibia and fibula Past Surgical History: 1. CABG x 4 [...] Rare 4. Illicit drugs: none 5. Employment: [employer] work 39 years 6. Service: [employer] Allergies: NKDA Physical Exam: Temp: 97.9 F [36.6 C] (03/11/2024 11:40) Pulse:85 (03/11/2024 11:40) BP: 103/62 (03/11/2024 11:40) Resp: 18 (03/11/2024 11:40) O2 Sat: 98% (03/11/2024 11:40) Weight: 185.8 lb [84.28 kg] (03/11/2024 11:40) BMI: 27.5 Pain: 0 (03/11/2024 11:40) General: AAOx3, NAD HEENT: AT/NC Skin: 1 cm x 1 cm stage 2-3 ulcer, lateral left heel, minimal redness around the lesion, no hair growth, mild swelling of foot/lower leg, absent pulses. No warmth noted, yellow moist base to ulcer, no drainage. Labs: Imaging Assessment/Plan: 1. Pressure ulcer heel - Recurrent pressure sore on left lateral heel - Same area of previous ulcer. - CITC - wound care consult has been placed. - Wound pictures completed to add to the consult - No current signs of infection - placed mepilex dressing today, can leave on for 3 days 2. Type 2 diabetes with peripheral neuropathy - Continue to monitor glucose with Dexcom monitor - HgA1C 11.6 10/04/2023 - HgA1C 9.7 01/04/2024 - Insulin glargine 34 units at bedtime - Insulin aspart 20 units AM and 24 units noon and evening meals - Continue sliding scale insulin for 2 units every 50 - New prescription with up to 90 units daily - insulin prescription through the [facility] - Will follow-up with non-VA PCP - Patient will follow-up through [facility] clinic with PCP CVF - Future Appointment: 03/20/2024 09:00 BRAYDON DRIVERS OT DION 1U 03/20/2024 14:30 MSP AUD TECH 2S 04/07/2024 10:30 BRAYDON ADV MBLTY OT TAD 11/07/2024 11:00 DANA PACT CHELSEY RTC as needed CPRS chart review/chart prep: 3 minutes Time with patient: 30 minutes Chart completion: 5 minutes Clinical Reminders: Medication Reconciliation: Education Evaluations [...] Remote Allergy/ADR Data available for this patient [facility] No Known Allergies Active and Recently Outpatient Medications (including Supplies): Issue Date Status Last Fill Active Outpatient Medications Refills Expiration 1) NEEDLE,PEN 31G,8MM Qty: 300 for 90 days ACTIVE Issu:11-08-23 Sig: USE 1 NEEDLE UNDER THE SKIN Refills: 3 Last:11-09-23 DIRECTED *DISPOSE OF IN A HARD-PLASTIC Expr:11-08-24 CONTAINER WITH A SCREW-ON LID CONTACT GARBAGE HAULER FOR PROPER DISPOSAL Issue Date Status Last Fill Pending Outpatient Medications Refills Expiration 1) INSULIN ASPART (HUMAN) INJ Qty: 15 PENDING Sig: INJECT 20 UNITS UNDER THE SKIN Refills: 0 EVERY MORNING AND INJECT 24 UNITS EVERYDAY AT NOON AND INJECT 24 UNITS EVERY EVENING Issue Date Status Last Fill Inactive Outpatient Medications Refills Expiration 1) CADEXOMER IODINE 0.9% TOP GEL Qty: 40 Issu:02-15-23 for 30 days Sig: APPLY THIN LAYER Refills: 1 Last:02-20-23 TOPICALLY DIRECTED FOLLOWING WOUND Expr:02-16-24 CARE ORDERS 2) DRESSING,MEPILEX 4IN X 4IN Qty: 10 for Issu:02-15-23 30 days Sig: APPLY 1 DRESSING Refills: 1 Last:02-20-23 TOPICALLY DIRECTED USE FOLLOWING Expr:02-16-24 WOUND CARE ORDERS 3) GAUZE PAD 4IN X 4IN 8-PLY NONSTERILE Issu:02-15-23 Qty: 200 for 30 days Sig: USE GAUZE Refills: 1 Last:02-20-23 TOPICALLY DIRECTED APPLY ONE TO Expr:02-16-24 EACH WOUND AND NEEDED FOLLOWING WOUND CARE ORDERS 4) INSULIN,ASPART(EQV-NOVLG)1 00UN/ML FLXPEN DISCONTINUED Issu:01-10-24 Qty: 10 for 50 days Sig: INJECT 16 (EDIT) Last:01-11-24 UNITS UNDER THE SKIN BEFORE MEALS FOR Refills: 5 Expr:01-10-25 DIABETES SLIDING SCALE 2 UNITS FOR BLOOD SUGARS 150-199, 4 UNITS 200-249, 6 UNITS 250-299, 8 UNITS 300-349, 10 UNITS FOR 350-390, AND 12 UNITS FOR GREATER THAN 400 UNITS AND CALL MD. MAY USE UP TO 60 UNITS/DAY 5) INSULIN,ASPART(EQV-NOVLG)1 00UN/ML FLXPEN DISCONTINUED Issu:11-08-23 Qty: 10 for 50 days Sig: INJECT 8 (EDIT) Last:11-09-23 UNITS UNDER THE SKIN BEFORE MEALS Refills: 5 Expr:11-08-24 SLIDING SCALE 2 UNITS FOR BLOOD SUGARS 150-199, 4 UNITS 200-249, 6 UNITS 250-299, 8 UNITS 300-349, 10 UNITS FOR 350-390, AND 12 UNITS FOR GREATER THAN 400 UNITS AND CALL MD. MAY USE UP TO 60 UNITS/DAY Start Date Active Non-VA Medications Refills Expiration 1) Non-VA APIXABAN 5MG TAB SiMG MOUTH ACTIVE EVERY 12 HOURS 2) Non-VA ATORVASTATIN CALCIUM 40MG TAB ACTIVE SiMG MOUTH DAILY 3) Non-VA CLOPIDOGREL BISULFATE 75MG TAB ACTIVE SiMG MOUTH DAILY 4) Non-VA CONTOUR NEXT (GLUCOSE) TEST STRIP ACTIVE Si STRIP THREE TIMES A DAY 5) Non-VA DAPAGLIFLOZIN 10MG TAB SiMG ACTIVE MOUTH DAILY 6) Non-VA INSULIN GLARGINE 300UNITS/ML 3ML ACTIVE PEN INJ Si UNITS UNDER THE SKIN DAILY 7) Non-VA LEVOTHYROXINE NA (SYNTHROID) ACTIVE 75MCG TAB SiMCG MOUTH EVERY DAY 8) Non-VA METOPROLOL SUCCINATE TAB,SA Sig: ACTIVE 12.5 MG MOUTH TWICE A DAY 9) Non-VA MIRTAZAPINE TAB Si.5 MG ACTIVE MOUTH AT BEDTIME 10) Non-VA NEEDLE,PEN 32G,6MM Si NEEDLE ACTIVE UNDER THE SKIN FOUR TIMES A DAY 11) Non-VA NITROGLYCERIN 0.4MG SL TAB Sig: ACTIVE 0.4MG UNDER THE TONGUE NEEDED 12) Non-VA NON VA MED NOT LISTED ACTIVE MISCELLANEOUS Sig: ACCU-CHECK ALEJO PLUS METER THREE TIMES A DAY 13) Non-VA PANTOPRAZOLE NA 40MG EC TAB Sig: ACTIVE 40MG MOUTH DAILY 14) Non-VA SPIRONOLACTONE 25MG TAB Sig: ACTIVE 25MG MOUTH DAILY 15) Non-VA TRIAMCINOLONE ACETONIDE 0.1% OINT ACTIVE Sig: SMALL AMOUNT TOPICALLY THREE TIMES A DAY NEEDED Start Date Inactive Non-VA Medications Refills Expiration 1) Non-VA FUROSEMIDE 20MG TAB SiMG DISCONTINUED MOUTH DAILY 23 Total Medications /es/ JIMENEZ CHESTER MD PHYSICIAN Signed: 03/11/2024 14:18 JIMENEZ CHESTER ([facility]) Mar 11, 2024 11:41 AM PRIMARY CARE NOTE: LOCAL TITLE: [facility] PROGRESS NOTE-[place] STANDARD TITLE: PRIMARY CARE NOTE DATE OF NOTE: MAR 11, 2024@11:41 ENTRY DATE: MAR 11, 2024@11:41:39 AUTHOR: ZARI ANTHONYIGNER: URGENCY: STATUS: COMPLETED TYPE OF VISIT: Appointment Check In Type of appointment: In-person appointment REASON FOR VISIT: Pressure sore on left heel. ALLERGIES: Patient has answered NKA VITAL SIGNS: Blood Pressure: 103/62 (03/11/2024 11:40) Pulse: 85 (03/11/2024 11:40) Respiration: 18 (03/11/2024 11:40) Temperature: 97.9 F [36.6 C] (03/11/2024 11:40) Weight: 185.8 lb [84.28 kg] (03/11/2024 11:40) Height: 69 in [175.3 cm] (11/08/2023 09:55) BMI: 27.5 O2 Sat: 98% (03/11/2024 11:40) Pain: 0 (03/11/2024 11:40) PAIN SCREEN: Patient is not having significant pain that they wish to discuss with their provider today. MEDICATION Active Outpatient Medications (including Supplies): INSULIN,ASPART(EQV-NOVLG)1 00UN/ML FLXPEN INJECT 16 UNITS ACTIVE UNDER THE SKIN BEFORE MEALS FOR DIABETES SLIDING SCALE 2 UNITS FOR BLOOD SUGARS 150-199, 4 UNITS 200-249, 6 UNITS 250-299, 8 UNITS 300-349, 10 UNITS FOR 350-390, AND 12 UNITS FOR GREATER THAN 400 UNITS AND CALL MD. MAY USE UP TO 60 UNITS/DAY NEEDLE,PEN 31G,8MM USE 1 NEEDLE UNDER THE SKIN DIRECTED ACTIVE *DISPOSE OF IN A HARD-PLASTIC CONTAINER WITH A SCREW-ON LID CONTACT GARBAGE HAULER FOR PROPER DISPOSAL Non-VA APIXABAN 5MG TAB 5MG MOUTH EVERY 12 HOURS ACTIVE Non-VA ATORVASTATIN CALCIUM 40MG TAB 40MG MOUTH DAILY ACTIVE Non-VA CLOPIDOGREL BISULFATE 75MG TAB 75MG MOUTH DAILY ACTIVE Non-VA CONTOUR NEXT (GLUCOSE) TEST STRIP 1 STRIP THREE ACTIVE TIMES A DAY Non-VA DAPAGLIFLOZIN 10MG TAB 10MG MOUTH DAILY ACTIVE Non-VA INSULIN GLARGINE 300UNITS/ML 3ML PEN INJ 34 UNITS ACTIVE UNDER THE SKIN DAILY Non-VA LEVOTHYROXINE NA (SYNTHROID) 75MCG TAB 75MCG MOUTH ACTIVE EVERY DAY Non-VA METOPROLOL SUCCINATE TAB,SA 12.5 MG MOUTH TWICE A ACTIVE DAY Non-VA MIRTAZAPINE TAB 7.5 MG MOUTH AT BEDTIME ACTIVE Non-VA NEEDLE,PEN 32G,6MM 1 NEEDLE UNDER THE SKIN FOUR ACTIVE TIMES A DAY Non-VA NITROGLYCERIN 0.4MG SL TAB 0.4MG UNDER THE TONGUE ACTIVE NEEDED Non-VA NON VA MED NOT LISTED MISCELLANEOUS ACCU-CHECK ACTIVE ALEJO PLUS METER THREE TIMES A DAY Non-VA PANTOPRAZOLE NA 40MG EC TAB 40MG MOUTH DAILY ACTIVE Non-VA SPIRONOLACTONE 25MG TAB 25MG MOUTH DAILY ACTIVE Non-VA TRIAMCINOLONE ACETONIDE 0.1% OINT SMALL AMOUNT ACTIVE TOPICALLY THREE TIMES A DAY NEEDED Homelessness/Food Insecurity Screen: In the past 2 [...] have money to get more. Never true Food Assistance Programs [facility] Food Assistance Programs [facility] Nursing Annual Screening: Whole Health Screen is due OR due soon (within 90 days). Whole Health Screening Why is addressing your overall health important to you? Longevity What do you want your health for (why do you want to be healthy)? Longevity, see tomorrow /riccardo/ ZARI ANTHONY LPN Signed: 03/11/2024 11:43 ZARI ANTHONY [place] ([facility])
--- OUTSIDE RECORDS SUMMARY | 2024-03-18 12:43 | XMS_ITS | Encounter Summary ---
Author Name [facility] [place] Address [address] [place] [address] Care Team Providers Care Restaurant Service Manager Name Role Phone JIMENEZ CHESTER Primary [...] Cherry's Name Patient's Relationship to Policy [facility] (WNR) May 14, 2020 [id number] [phone] PITER CASAS ERD PATIENT Selected Encounter This section includes the information on record at [place] for the Encounter. Date/Time Encounter Type Encounter Description Reason Provider Source Jan 30, 2024 10:00 AM WHEELCHAIR MNGMENT TRAINING WHEELCHAIR & ADVAN MOBILITY ICD-10-CM R53.1 Weakness SUSANNA EATON [facility] Encounter Template Text not used by [place] Assessments - Encounter Diagnoses This section includes the primary and secondary diagnoses documented for the Encounter. Date/Time Primary/Secondary Diagnosis Diagnosis Name Provider Source Jan 31, 2024 02:29 PM PRIMARY Weakness SUSANNA EATON [facility] Plan of Treatment: Future Appointments (+ 6 months) and Future Tests (+/- 45 days) The Plan of Treatment section includes future care activities for the patient from all [place] [facility]. This section includes future appointments and future orders which are active, pending or scheduled. Future Appointments This section includes appointments that were scheduled to occur 6 months from the date of the Encounter, up to a maximum of 20 appointments. The data comes from all [facility]. Appointment Date/Time Appointment Type Appointme nt Facility Name Feb 02, 2024 10:15 AM AMBULATORY - SURGERY [facility] Feb 12, 2024 02:00 PM AMBULATORY - NONE [facility] Mar 11, 2024 11:30 AM AMBULATORY - MEDICINE [facility] ([facility]) Mar 20, 2024 09:00 AM AMBULATORY - REHAB [facility] Mar 20, 2024 02:30 PM AMBULATORY - SURGERY [facility] Apr 07, 2024 10:30 AM AMBULATORY - REHAB [facility] Active, Pending, and Scheduled Orders This section includes a listing of several types of active, pending, and scheduled orders, including clinic medications orders, diagnostic test orders, procedure orders and consult orders; where the start date of the order is 45 days before the date of the Encounter or 45 days after the date of theEncounter. The data comes from all [facility]. Test Date/Time Test Type Test Details Facility Name Feb 21, 2024 11:45 AM Consult Order NETWORK INFRASTRUCTURE ARCHITECT GIUSEPPE AB OUTPT SAFE PASSENGER Cons Variety Performer's [facility] Mar 11, 2024 12:16 PM Consult Order COMMUNITY CARE-WOUND CARE SC Cons Variety Performer's [facility] Encounter Notes: All associated encounter notes This section contains the clinical notes associated to the Encounter. Date/Time Encounter Note(s) Provider Source Feb 20, 2024 11:30 AM ADDENDUM: LOCAL TITLE: Addendum STANDARD TITLE: ADDENDUM DATE OF NOTE: FEB 20, 2024@11:30:59 ENTRY DATE: FEB 20, 2024@11:31 AUTHOR: SUSANNA EATON COSIGNER: URGENCY: STATUS: COMPLETED Recommend consult to OT [facility]. Consult pathway: New Consult -> 20 Outpt Consult menu -> Extended Care and Rehab Services Outpt -> Non-Drying Rack Changer Safe Passenger Evaluation Second VM received from veterans after conversation with prosthetics equipment lead sales consultant. Discussed that the custom seating and mobility clinic would be able to assist with ordering of a vehicle lift if their vehicle is able to accommodate the proposed power wheelchair and vehicle lift. His notes they are looking at self-purchasing an accessible minivan with side ramped entry and a removable front passenger seat. The will not longer drive and only be a passenger. His asked if the vehicle lift kramer could be used towards purchasing of a new accessible van. Discussed that this is not feasible, although a Safe Passenger evaluation was recommended to determine if there is any assistance that could be provided for the accessible components of a new vehicle. His noted agreement to receiving a consult. She also noted agreement to consulting for a modular ramp and the PWC. At this time, it appears the and his may self-purchase an accessible van prior to evaluation. It was made clear that [place] will not reimburse or manage self- purchased equipment. They will also be responsible for transporting the new PWC home after the final fitting, training, and issuance occurs. She noted understanding. /es/ Susanna Eaton OTR/L, ALEAH OCCUPATIONAL THERAPIST Signed: 02/20/2024 11:39 Receipt Acknowledged By: 02/21/2024 11:45 /es/ JIMENEZ CHESTER MD PHYSICIAN 02/21/2024 08:39 /es/ Aamir Hazel RN [facility] --- Original Document --- 02/19/24 PATIENT CONTACT NOTE: Patient contact Name of : JUNG CASAS Name/Relationship of Contact if other than : Date & Time of Contact: Feb@14:54 Type of Contact: Telephone Reason for Contact: Voicemail received from veterans stating she was at [employer] and would like guidance on what vehicle will interface with the proposed PWC (below) and a vehicle lift. Will alert Nikunj Villalta, prosthetics equipment lead sales consultant to contact to assist. Proposed PWC: -Item: Quantum Stretto (16x18, power tilt and elevate, Hayder Comfort SPP 2 cushion) -Vendor: [employer] -Quote #: CPQ - [id number] -Estimated weight: 391.88# /riccardo/ Susanna Eaton, OTR/L, ATP OCCUPATIONAL THERAPIST Signed: 02/19/2024 14:56 Receipt Acknowledged By: 02/19/2024 15:10 /es/ NIKUNJ VILLALTA Mobility Tech/Prosthetics 02/19/2024 ADDENDUM STATUS: COMPLETED Spoke with Moe, gave her some insight. They are looking at either a Chrysler Omaha with a ramp installed, or a Odyssey with a fold-down ramp. Also let her know that she may contact his primary care provider and ask about vehicle grants. Reiterated that [place] WILL NOT pay for repair or maintenance of self-purchased ramps, shell shop supervisor seats, or EZ-Lock type devices. /es/ NIKUNJ VILLALTA Mobility Tech/Prosthetics Signed: 02/19/2024 15:10 02/21/2024 ADDENDUM STATUS: COMPLETED Consult placed for PCP reviewal and signature. /riccardo/ Aamir Hazel RN [facility] Signed: 02/21/2024 08:39 SUSANNA EATON [facility] Feb 19, 2024 02:53 PM REPORT OF CONTACT: LOCAL TITLE: PATIENT CONTACT NOTE STANDARD TITLE: REPORT OF CONTACT DATE OF NOTE: FEB 19, 2024@14:53 ENTRY DATE: FEB 19, 2024@14:53:51 AUTHOR: SUSANNA EATON EXP COSIGNER: URGENCY: STATUS: COMPLETED PATIENT CONTACT NOTE Has ADDENDA Patient contact Name of Cos Cob: JUNG CASAS Name/Relationship of Contact if other than Cos Cob: Date & Time of Contact: Feb@14:54 Type of Contact: Telephone Reason for Contact: Voicemail received from veterans stating she was at [employer] and would like guidance on what vehicle will interface with the proposed PWC (below) and a vehicle lift. Will alert Nikunj Villalta prosthetics equipment lead sales consultant to contact to assist. Proposed PWC: -Item: Quantum Stretto (16x18, power tilt and elevate, Hayder Comfort SPP 2 cushion) -Vendor: [employer] -Quote #: CPQ - [id number] -Estimated weight: 391.88# /riccardo/ KASIA Rai/Yousuf, ATP OCCUPATIONAL THERAPIST Signed: 02/19/2024 14:56 Receipt Acknowledged By: 02/19/2024 15:10 /riccardo/ NIKUNJ RICHRE Mobility Tech/Prosthetics 02/19/2024 ADDENDUM STATUS: COMPLETED Spoke with Moe, gave her some insight. They are looking at either a Chrysler Omaha with a ramp installed, or a Odyssey with a fold-down ramp. Also let her know that she may contact his primary care provider and ask about vehicle grants. Reiterated that [place] WILL NOT pay for repair or maintenance of self-purchased ramps, shell shop supervisor seats, or EZ-Lock type devices. /riccardo/ NIKUNJ VILLALTA Mobility Tech/Prosthetics Signed: 02/19/2024 15:10 02/20/2024 ADDENDUM STATUS: COMPLETED Recommend consult to OT [facility]. Consult pathway: New Consult -> 20 Outpt Consult menu -> Extended Care and Rehab Services Outpt -> Non-Drying Rack Changer Safe Passenger Evaluation Second VM received from veterans after conversation with prosthetics equipment lead sales consultant. Discussed that the custom seating and mobility clinic would be able to assist with ordering of a vehicle lift if their vehicle is able to accommodate the proposed power wheelchair and vehicle lift. His notes they are looking at self-purchasing an accessible minivan with side ramped entry and a removable front passenger seat. The will not longer drive and only be a passenger. His asked if the vehicle lift kramer could be used towards purchasing of a new accessible van. Discussed that this is not feasible, although a Safe Passenger evaluation was recommended to determine if there is any assistance that could be provided for the accessible components of a new vehicle. His noted agreement to receiving a consult. She also noted agreement to consulting for a modular ramp and the PWC. At this time, it appears the and his may self-purchase an accessible van prior to evaluation. It was made clear that [place] will not reimburse or manage self- purchased equipment. They will also be responsible for transporting the new PWC home after the final fitting, training, and issuance occurs. She noted understanding. /riccardo/ KASIA Rai/Yousuf, ATP OCCUPATIONAL THERAPIST Signed: 02/20/2024 11:39 Receipt Acknowledged By: * AWAITING SIGNATURE * JIMENEZ CHESTER Kamla 02/21/2024 08:39 /riccardo/ Aamir Hazel RN [facility] 02/21/2024 ADDENDUM STATUS: COMPLETED Consult placed for PCP reviewal and signature. /riccardo/ Aamir Hazel RN [facility] Signed: 02/21/2024 08:39 SUSANNA EATON [facility] Feb 19, 2024 02:52 PM OCCUPATIONAL THERA PY CONSULT: LOCAL TITLE: OCCUPATIONAL THERAPY CONSULT STANDARD TITLE: OCCUPATIONAL THERAPY CONSULT DATE OF NOTE: FEB 19, 2024@14:52 ENTRY DATE: FEB 19, 2024@14:52:37 AUTHOR: SUSANNA EATON EXP COSIGNER: URGENCY: STATUS: COMPLETED See OT note from 01/31/24 with full details. OCCUPATIONAL THERAPY EVALUATION COMPLEXITY Identifying and reporting the complexity level of an evaluation focuses on the first three of these factors--profile and history, assessment and determination of deficits, and clinical decision making. These three factors must be scored and defensible documentation written to support the choice of a level. (Information taken from: https://www.aota.org) PROFILE AND HISTORY (including chart view) Brief history of medical and/or therapy records relating to the presenting problem (low complexity) ASSESSMENT & PERFORMANCE DEFICITS (select all that apply): Physical: strength, mobility 1-3 performance deficits (Low complexity) LEVEL OF CLINICAL DECISION MAKING Comorbidities affect occupational performance: Yes (moderate or high complexity) Modifications of tasks or assistance to enable completion of evaluation: Not necessary (Low complexity) Problem-focused assessment(s), consideration of a limited number of treatment options, presents with no comorbidities and modification of tasks or assistance is not necessary.(Low complexity) LOW COMPLEXITY Brief history of medical/or therapy records relating to the presenting problem. An assessment(s) that identifies 1-3 performance deficits that result in activity limitation and/or participating restrictions. Includes analysis of the occupational profile, analysis of date from problem- focused assessment(s), and consideration of a limited number of treatment options. Patient presents with no comorbidities that affect occupational performance. Modification of tasks or assistance with assessment(s) is not necessary to enable completion of evaluation component. /es/ Susanna Etaon, OTR/L, ATP OCCUPATIONAL THERAPIST Signed: 02/19/2024 14:53 SUSANNA EATON [facility] Jan 31, 2024 02:16 PM OCCUPATIONAL THERA PY NOTE: LOCAL TITLE: OT-PROGRESS NOTE STANDARD TITLE: OCCUPATIONAL THERAPY NOTE DATE OF NOTE: JAN 31, 2024@14:16 ENTRY DATE: JAN 31, 2024@14:16:23 AUTHOR: SUSANNA EATON EXP COSIGNER: URGENCY: STATUS: COMPLETED OCCUPATONAL THERAPY ADVANCED MOBILITY ASSESSMENT Referring provider: CINTHIA JAMESON V Diagnosis for which patient is referred to OT: Weakness Consult request: power mobility Precautions: R BKA Encounters: -OT Evaluation - Low Complexity (1): 20m -Wheelchair management (4): 60m ASSESSMENT: Vet is a 83 yo male referred to [...] PWC. OT provided resources for Jake (lift freight handler) and [employer] (lift final installer inspector) to discuss options prior to purchasing a new vehicle. OT will hold on any orders until a return call is received from the veterans . Direct number provided. ALL ITEMS ON HOLD until return call is received from vet/: -Item: Quantum Stretto (16x18, power tilt and elevate, Hayder Comfort SPP 2 cushion) -Vendor: [employer] -Quote #: CPQ - [id number] -Estimated weight: 391.88# -Vehicle lift -Modular ramp [...] MEDICAL HISTORY: CAD - Coronary Artery Disease ([facility] [id number] Mellitus Type 2 ([facility] [id number]) HTN - Hypertension ([facility] [id number]) Peripheral neuropathy due to type 2 diabetes mellitus ([facility] [id number]) Long-term current use of insulin (SCT 71Hyperlipidemia ([facility] [id number]) CHF - Congestive Heart Failure (SCT 4234Exposure to potentially hazardous substance ([facility] [id number]) Hypothyroidism ([facility] [id number]) History of amputation of right leg through tibia and fibula ([facility] [id number]) SUBJECTIVE: Identified goal(s) with wheelchair use: -Take [...] out to eat. Current Equipment (note if [place] issued or not): MWC provided from Medicare and 4WW provided from [place] Home accessibility: -All cares met on main floor -Front door (primary) -Unheated 3 car garage PRIOR LEVEL OF INDEPENDENCE: Vet/ reports: -Transferring: Mod I - present for stability as needed -Mobility: -In-home: MWC use primarily in-home w/ self-propulsion -Community: [facility] [place] with caregiver propulsion -Falls: 1 fall (slide off of bed after STR stay) -Driving: Dependent -2022 [employer] XT5 - only drives currently Seating and mobility equipment: -[employer]are Tracer SX5 25.5 handrim to handrim total width (Medicare obtained) -~2 foam cushion, elements basic foam backrest PAIN ASSESSMENT: Pain Present: Yes If pain present intensity: Very very little 6/10 phantom limb pain OBJECTIVE: Vet arrives to session seated in standard MW with providing caregiver propulsion. Session completed trial [...] likely would be the most accessible option terminal carman. Recommended they look at vehicles for self-purchase. Once they narrow down to 2-3 vehicles, recommended they contact the primary lift freight handler ([employer]) and lift final installer inspector ([employer]) to confirm there would be no issues [...] with permission. All rights reserved. /riccardo/ KASIA Rai/Yousuf, ALEAH OCCUPATIONAL THERAPIST Signed: 01/31/2024 14:29 SUSANNA EATON [facility]
--- OUTSIDE RECORDS SUMMARY | 2024-03-18 12:43 | XMS_ITS | Encounter Summary ---
Author Name [facility] [place] Address [address] [place] [address] Care Team Providers Care Distribution Sales Manager Name Role Phone JIMENEZ CHESTER Primary [...] Name Patient's Relationship to Policy Cherry [facility] (WNR) MEDICARE ADVANTAGE [facility] (WNR) May 14, 2020 [id number] [phone] PITER CASAS ERD PATIENT Selected Encounter This section includes the information on record [place] for the Encounter. Date/Time Encounter Type Encounter Description Reason Pro vider Source Jan 10, 2024 09:52 AM Outpatient Encounter TELEPHONE PRIMARY CARE IHE Encounter Template Text not used by [place] Plan of Treatment: Future Appointments (+ 6 [...] 10:00 AM AMBULATORY - REHAB [facility] Feb 02, 2024 10:15 AM AMBULATORY - SURGERY [facility] Feb 12, 2024 02:00 PM AMBULATORY - NONE [facility] Mar 11, 2024 11:30 AM AMBULATORY - MEDICINE [facility] ([facility] Mar 20, 2024 09:00 AM AMBULATORY - REHAB MEDICIN [facility] Mar 20, 2024 02:30 PM AMBULATORY - SURGERY [facility] Apr 07, 2024 10:30 AM AMBULATORY - REHAB MEDICIN [facility] Active, Pending, and Scheduled Orders This section includes a listing of several types of active, pending, and scheduled orders, including clinic medications orders, diagnostic test orders, procedure orders and consult orders; where the start date of the order is 45 days before the date of the Encounter or 45 days after the date of theEncounter. The data comes from all [facility]. Test Date/Time Test Type Test Details Facility Name Feb 21, 2024 11:45 AM Consult Order CURB WORKER GIUSEPPE AB OUTPT SAFE PASSENGER Cons Cycle Consultant'[facility]) Encounter Notes: All associated encounter notes This section contains the clinical notes associated to the Encounter. Date/Time Encounter Note(s) Provider Source Jan 10, 2024 09:52 AM PRIMARY CARE NONVA NOTE: LOCAL TITLE: CO-MANAGED CARE NOTE STANDARD TITLE: PRIMARY CARE NONVA NOTE DATE OF NOTE: JAN 10, 2024@09:52 ENTRY DATE: JAN 10, 2024@09:53:03 AUTHOR: DANNY MORTON COSIGNER: URGENCY: STATUS: COMPLETED CO-MANAGED CARE NOTE Has ADDENDA Received request for: 1. change: insulin aspart (U-100) 100 unit/ml (3 ml) pen Give 16 units three times daily with meals + sliding scale <150 no additional insulin, 150-199: 2 unit, 200-249: 4 units, 250-299: 6 units, 300-349: 8 units, 350-399: 10 units, >400: 12 units and call MD. Up to 60 units daily Qty: 30 Refills: 11 Indication: diabetes Rx written by: Tatyana Nguyen MD Facility: [facility] Local provider phone # [phone] Local provider fax # [phone] Records scanned and available for review in [employer] or [employer]. Please view alert underwriter solicitation director if: [facility] PCP needs further information to make decision (specify) -or- [facility] PCP recommends alternative (specify) -or- Request is denied (pt. will need to continue to fill outside of [place]). Etch [employer] will then relay the above to local prescriber's office. /riccardo/ DANNY MORTON LPN Co-Tile Helper Signed: 01/10/2024 09:57 Receipt Acknowledged By: 01/10/2024 18:14 /riccardo/ JIMENEZ CHESTER MD PHYSICIAN 01/10/2024 ADDENDUM STATUS: COMPLETED Prescription updated to the pharmacy 1. change: insulin aspart (U-100) 100 unit/ml (3 ml) pen Give 16 units three times daily with meals + sliding scale <150 no additional insulin, 150-199: 2 unit, 200-249: 4 units, 250-299: 6 units, 300-349: 8 units, 350-399: 10 units, >400: 12 units and call MD. Up to 60 units daily Qty: 30 Refills: 11 Indication: diabetes /riccardo/ JIMENEZ CHESTER MD PHYSICIAN Signed: 01/10/2024 18:15 DANNY MORTON [facility]
--- OUTSIDE RECORDS SUMMARY | 2024-03-18 12:43 | XMS_ITS | Encounter Summary ---
Author Name [facility] [place] Organization [place] Address [address] [place] [address] Care Team Providers Care Forepart Rasper Name Role Phone JIMENEZ CHESTER Primary Care [...] Cherry [facility] (WNR) MEDICARE ADVANTAGE [facility] (WNR) May 14, 2020 [id number] [phone] PITER CASAS ERD PATIENT Selected Encounter This section includes the information on record at [place] for the Encounter. Date/Time Encounter Type Encounter Description Reason Provider Source Feb 02, 2024 10:15 AM HEARING AID CHECK BOTH EARS AUDIOLOGY ICD-10-CM Z46.1 Encounter for fitting and adjustment of hearing aid MICK BLACK [place] Encounter Template Text not used by [place] Assessments - Encounter Diagnoses This section includes the primary and secondary diagnoses documented for the Encounter. Date/Time Primary/Secondary Diagnosis Diagnosis Name Provider Source Feb 02, 2024 10:36 AM PRIMARY Encounter for fitting and adjustment of hearing aid MICK CUBA [facility] Plan of Treatment: Future Appointments (+ 6 months) and Future Tests (+/- 45 days) The Plan of Treatment section includes future care activities for the patient from all [place] [facility] [place]. This section includes future appointments and future orders which are active, pending or scheduled. Future Appointments This section includes appointments that were scheduled to occur 6 months from the date of the Encounter, up to a maximum of 20 appointments. The data comes from all [facility]. Appointment Date/Time Appointment Type Appointme nt Facility Name Feb 12, 2024 02:00 PM AMBULATORY - NONE [facility] Mar 11, 2024 11:30 AM AMBULATORY - MEDICINE [facility] ([facility]) Mar 20, 2024 09:00 AM [facility] Mar 20, 2024 02:30 PM AMBULATORY - SURGERY [facility] Apr 07, 2024 10:30 AM AMBULATORY - REHAB MEDICIN [facility] Active, Pending, and Scheduled Orders This section includes a listing of several types of active, pending, and scheduled orders, including clinic medications orders, diagnostic test orders, procedure orders and consult orders; where the start date of the order is 45 days before the date of the Encounter or 45 days after the date of theEncounter. The data comes from all [facility]. Test Date/Time Test Type Test Details Facility Name Feb 21, 2024 11:45 AM Consult Order FLATWORK TIER GIUSEPPE AB OUTPT SAFE PASSENGER Cons [facility] ([facility]) Mar 11, 2024 12:16 PM Consult Order COMMUNITY CARE-WOUND CARE [place] Cons [facility] ([facility]) Mar 16, 2024 06:41 PM Consult Order BEST MEDIC AL INTEREST-OUTPT Cons [facility] ([facility]) Encounter Notes: All associated encounter notes This section contains the clinical notes associated to the Encounter. Date/Time Encounter Note(s) Provider Source Feb 02, 2024 10:30 AM AUDIOLOGY NOTE: LOCAL TITLE: AUDIOLOGY CLINIC NOTE STANDARD TITLE: AUDIOLOGY NOTE DATE OF NOTE: FEB 02, 2024@10:30 ENTRY DATE: FEB 02, 2024@10:30:48 AUTHOR: MICK CUBA EXP COSIGNER: MICK BLACK URGENCY: STATUS: COMPLETED AUDIOLOGY CLINIC NOTE Has ADDENDA DIAGNOSIS: Sensorineural Hearing Loss Reason for visit: Encounter for fitting adjustment Otoscopy: Free of excessive cerumen, normal anatomy bilaterally. History: Patient seen for a hearing aid service/hearing aid check. Hearing Aids (right/left): GN RESOUND RESOUND ONE 61 MINI FRANKO-R R [id number] GN RESOUND RESOUND ONE 61 MINI FRANKO-R L [id number] The following hearing aid problem/s were presented: RIGHT HEARING AID - clean & check, intermittent, earmold split LEFT HEARING AID - clean & check Action: Hearing aids were cleaned and checked. Listening check revealed good sound quality The following parts were replaced: wax guards The was seen today for a clean & check. He stated that the right hearing aid was cutting in and out, and the silicone earmold was beginning to split. I cleaned the hearing aids; changed the wax guards, brushed the carrie ports, and cleaned the earmolds. Both aids functioning properly post clean & check. I am ordering a new right silicone earmold and will mail to the vet once completed. Supplies provided to patient today: wax guards Ordering wax guards via ES was counseled on the cleaning, care and use of hearing aids. Plan: Patient will schedule an appointment to return to the clinic as needed Patient is in agreement with this plan. Mail new silicone earmold to the address on file. The 's knows how to change/replace /riccardo/ MICK [facility] SMELTING ENGINEER Signed: 02/02/2024 10:36 /Pauly Hernández Ph.D. Cook Soup Chief, Audiology Cosigned: 02/11/2024 06:26 02/11/2024 ADDENDUM STATUS: COMPLETED I have reviewed the audiological note and concur with the findings, procedures and recommendations for the . The health orthotic and prosthetic technician provided services to the during the time of the entire appointment. /Pauly Hernández Ph.D. Cook Soup Chief, Audiology Signed: 02/11/2024 06:26 02/14/2024 ADDENDUM STATUS: COMPLETED RECEIVED AND CERTIFIED RIGHT RESOUND FRANKO MICRO MOLD MAILED EARMOLD TO INSTRUCTED AT THE ADDRESS ON FILE /nallely CORCORAN AUDIO TECH Signed: 02/14/2024 07:46 /riccardo/ Pauly Cespedes Clinical Printed Circuit Board Panels Trimmer Cosigned: 02/20/2024 09:56 MICK CUBA [facility]
--- OUTSIDE RECORDS SUMMARY | 2024-03-18 12:43 | XMS_ITS | Encounter Summary ---
Author Name [facility] [place] Address [address] [place] [address] Care Team Providers Care Pointing Machine Operator Name Role Phone JIMENEZ CHESTER [...] Cherry's Name Patient's Relationship to Policy [facility]) [facility] ADVANTAGE [facility] (WNR) May 14, 2020 [id number] [phone] PITER BOWERS ERD PATIENT Selected Encounter This section includes the information on record at [place] for the Encounter. Date/Time Encounter Type Encounter Description Reason Provider Source Feb 12, 2024 02:00 PM Outpatient Encounter ADMIN PAT ACTIVTIES (MASNONCT) MIYA JAMESON Encounter Template Text not used by [place] Plan of Treatment: Future Appointments (+ 6 [...] 20 appointments. The data comes from all [facility]. Appointment Date/Time Appointment Type Appointme nt Facility Name Mar 11, 2024 11:30 AM AMBULATORY - MEDICINE [facility] ([facility]) Mar 20, 2024 09:00 AM AMBULATORY - [facility]AB [facility] Mar 20, 2024 02:30 PM AMBULATORY - SURGERY [facility] Apr 07, 2024 10:30 AM AMBULATORY - REHAB MEDICIN [facility] Active, Pending, and Scheduled Orders This section includes a listing of several types of active, pending, and scheduled orders, including clinic medications orders, diagnostic test orders, procedure orders and consult orders; where the start date of the order is 45 days before the date of the Encounter or 45 days after the date of theEncounter. The data comes from all [facility]. Test Date/Time Test Type Test Details Facility Name Feb 21, 2024 11:45 AM Consult Order WHALE FISHERMAN GIUSEPPE AB OUTPT SAFE PASSENGER Cons Assistant Auditor[facility] ([facility]) Mar 11, 2024 12:16 PM Consult Order COMMUNITY CARE-WOUND CARE [place] Cons Assistant Auditor's [facility] ([facility]) Mar 16, 2024 06:41 PM Consult Order BEST MEDIC AL INTEREST-OUTPT Cons Assistant Auditor's [facility] ([facility]) Encounter Notes: All associated encounter notes This section contains the clinical notes associated to the Encounter. Date/Time Encounter Note(s) Provider Source Feb 13, 2024 01:43 PM ADDENDUM: LOCAL TITLE: Addendum STANDARD TITLE: ADDENDUM DATE OF NOTE: FEB 13, 2024@13:43:43 ENTRY DATE: FEB 13, 2024@13:43:44 AUTHOR: ANGEL ARMSTRONG EXP COSIGNER: URGENCY: STATUS: COMPLETED was seen in a Community ED. Records uploaded to chart. Please review and follow up as appropriate. /riccardo/ ANGEL ARMSTRONG .Carito.Advanced Wire Straightening Machine Operator Signed: 02/13/2024 13:43 Receipt Acknowledged By: 02/13/2024 19:51 /es/ JIMENEZ CHESTER MD PHYSICIAN 02/13/2024 14:33 /es/ Aamir Hazel RN [facility] --- Original Document --- 02/10/24 [facility] SELF PRESENTING CARE COORD PLAN NOTE: Emergency Notification Intake Date Presenting to the Facility: Jan Method of Contact: Notified from ECR worklist Notification ID: [id number] [facility] Referral #: [facility] Name: Hospital: [facility] Address: City: [place] State: [place] Zip Code: Phone : [facility] Point of Contact: Name: [facility] DEPT Chief complaint: UTI Primary Diagnosis: Disposition Unknown at time of intake note entry /riccardo/ GRIFFIN [facility] CANE STRIPPER Signed: 02/12/2024 14:02 Receipt Acknowledged By: 02/13/2024 08:47 /nallely ESPINOZAA MSN manager wound Photoflash Powder Mixer 02/13/2024 ADDENDUM STATUS: COMPLETED Notification acknowledged by RN, medical and clinical information not reviewed. /nallely ESPINOZAA MSN manager wound Photoflash Powder Mixer Signed: 02/13/2024 08:47 02/13/2024 ADDENDUM STATUS: COMPLETED Note from [facility] 03/06 ED encounter: Rosalina Bowers is a 83 y.o. male presents for evaluation of generalized weakness and lethargy. Patient arrived hemodynamically stable and well- appearing. Blood work obtained which has creatinine of 2.10 which slightly elevated from patient's baseline. Urine without signs of infection. Hemoglobin at patient's baseline. CT head negative for intracranial pathology. It is possible patient's altered mental status is related to oxycodone and Flexeril he was prescribed. Patient also arrived appearing dehydrated. Given fluid here with improvement in symptoms. I suspect he is likely over diuresed and I advised to discuss with patient's primary care doctor. I discussed admission with them however they ultimately decided they felt comfortable discharge Phoned . Spoke with SO Sonali as has Dementia. -Sonali notes they have already been in contact with CHF doctor and they D/c'd Furosemide. They have labs next week and will f/u with cardiology as needed. -No needs from PACT. /riccardo/ Aamir Hazel RN [facility] Signed: 02/13/2024 14:35 ANGEL ARMSTRONG [facility] Feb 10, 2024 02:01 PM NONVA NOTE: LOCAL TITLE: COMMUNITY CARE-[facility]ES[facility] SELF PRESENTING CARE COORD PLAN STANDARD TITLE: NONVA NOTE DATE OF NOTE: FEB 10, 2024@14:01 ENTRY DATE: FEB 12, 2024@14:01:24 AUTHOR: GRIFFIN LEGER EXP COSIGNER: URGENCY: STATUS: COMPLETED COMMUNITY CARE-[facility]ES[facility] SELF PRESENTING CARE COORD PLAN NOTE Has ADDENDA Emergency Notification Intake Date Presenting to the Facility: Jan Method of Contact: Notified from kwiry worklist Notification ID: [id number] [facility] Referral #: [facility] Name: Hospital: [facility] Address: City: [place] State: [place] Zip Code: Phone : [facility] Point of Contact: Name: DEPT Chief complaint: UTI Primary Diagnosis: Disposition Unknown at time of intake note entry /riccardo/ [facility]RIFFIN [facility]GER [facility] CANE STRIPPER Signed: 02/12/2024 14:02 Receipt Acknowledged By: 02/13/2024 08:47 /riccardo/ Miya Jameson RN LISA MSN manager wound Photoflash Powder Mixer 02/13/2024 ADDENDUM STATUS: COMPLETED Notification acknowledged by RN, medical and clinical information not reviewed. /nallely Jameson RN LISA MSN manager wound Photoflash Powder Mixer Signed: 02/13/2024 08:47 02/13/2024 ADDENDUM STATUS: COMPLETED was seen in a Community ED. Records uploaded to chart. Please review and follow up as appropriate. /riccardo/ ANGEL ARMSTRONG ...Advanced Wire Straightening Machine Operator Signed: 02/13/2024 13:43 Receipt Acknowledged By: * AWAITING SIGNATURE * JIMENEZ CHESTER 02/13/2024 14:33 /riccardo/ Aamir Hazel RN [facility] 02/13/2024 ADDENDUM STATUS: COMPLETED Note from [facility] 03/06 ED encounter: Rosalina Bowers is a 83 y.o. male presents for evaluation of generalized weakness and lethargy. Patient arrived hemodynamically stable and well- appearing. Blood work obtained which has creatinine of 2.10 which slightly elevated from patient's baseline. Urine without signs of infection. Hemoglobin at patient's baseline. CT head negative for intracranial pathology. It is possible patient's altered mental status is related to oxycodone and Flexeril he was prescribed. Patient also arrived appearing dehydrated. Given fluid here with improvement in symptoms. I suspect he is likely over diuresed and I advised to discuss with patient's primary care doctor. I discussed admission with them however they ultimately decided they felt comfortable discharge Phoned [place]. Spoke with SO Sonali as has Dementia. -Sonali notes they have already been in contact with CHF doctor and they D/c'd Furosemide. They have labs next week and will f/u with cardiology as needed. -No needs from PACT. /riccardo/ Aamir Hazel RN [facility] Signed: 02/13/2024 14:35 GRIFFIN LEGER [facility]
--- OUTSIDE RECORDS SUMMARY | 2024-03-18 12:43 | XMS_ITS | Encounter Summary ---
Author Name [facility] [place] Address [address] [place] [address] Care Team Providers Care Community Outreach Director Name Role Phone JIMENEZ CHESTER Primary Care [...] Name Patient's Relationship to Policy Cherry [facility] (WNR) MEDICARE ADVANTAGE [facility] (WNR) May 14, 2020 [id number] [phone] PITER CASAS ERD PATIENT Selected Encounter This section includes the information on record at [place] for the Encounter. Date/Time Encounter Type Encounter Description Reason Pro vider Source Feb 26, 2024 12:00 AM Outpatient Encounter EVENT (HISTORICAL) IHE [...] 11, 2024 11:30 AM AMBULATORY - MEDICINE [facility] ([facility]) Mar 20, 2024 09:00 AM AMBULATORY - REHAB [facility] Mar 20, 2024 02:30 PM AMBULATORY - SURGERY [facility] Apr 07, 2024 10:30 AM AMBULATORY - REHAB MEDICIN [facility] Active, Pending, and Scheduled Orders This section includes a listing of several types of active, pending, and scheduled orders, including clinic medications orders, diagnostic test orders, procedure orders and consult orders; where the start date of the order is 45 days before the date of the Encounter or 45 days after the date of theEncounter. The data comes from all [facility]. Test Date/Time Test Type Test Details Facility Name Feb 21, 2024 11:45 AM Consult Order MANAGER RESORT GIUSEPPE AB OUTPT SAFE PASSENGER Cons [facility] [place] ([facility]) Mar 11, 2024 12:16 PM Consult Order COMMUNITY CARE-WOUND CARE [place] Cons Data [facility] [place] ([facility]) Mar 16, 2024 06:41 PM Consult Order BEST MEDIC AL INTEREST-OUTPT Cons Data [facility] [place] ([facility]) Immunizations: All administered on the encounter date This section contains immunizations associated to the Encounter. Immunization Series Date Issued Reaction Comments COVID-19 (Band Digital), MRNA, LNP -S, PF, NAVYA-SUCROSE, 30 MCG/0.3 ML (AGES 12+ YEARS) Feb 26, 2024 INFLUENZA, ADJUVANTED, TRIVALENT, PF Feb 25
--- OUTSIDE RECORDS SUMMARY | 2024-03-18 12:44 | XMS_ITS | Clinical Summary ---
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 Test 3 times daily 1 Device 07/09/2020 Active Insulin [place], Disposable, (Novofine 32) 32 gauge x 1/4Indications:25 [...] 3 02/06/2023 Active acetaminophen (TYLENOL) 325 mg tabletIndications: Pain [...] to affected area(s) two times daily. Active levothyroxine (Synthroid) 75 mcg tabletIndications: Hypothyroidism (acquired) Take 1 Tablet (75 mcg) by mouth before breakfast. 90 Tablet 3 07/17/2023 Active blood sugar diagnostic (Contour Next Test Strips) stripIndications:T ype 2 diabetes mellitus with complication (HC) Dispense item covered by pt ins. E10.9 IDDM type I - Test 4 times/day. Reason: complicated diabetes. 400 Each 3 07/17/2023 Active Farxiga 10 mg tabletIndications: HFrEF (heart failure with reduced ejection fraction) (HC) Take 1 Tablet (10 mg) by mouth once daily. 90 Tablet 3 10/03/2023 Active clotrimazole (LOTRIMIN) 1 % creamIndications:B alanitis Apply topically to affected area(s) two times daily. Use for 3 weeks. 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 Change each sensor every 10 days 9 Each 10/30/2023 Active metoprolol succinate (Toprol XL) 25 mg Sustained-Release tabletIndications: HFrEF (heart failure with reduced ejection fraction) (HC) Take 0.5 Tablets (12.5 mg) by mouth once daily in the evening. 45 Tablet 3 11/06/2023 Active clopidogreL (PLAVIX) 75 mg tabletIndications: NSTEMI (non-ST elevated myocardial infarction) (HC) TAKE 1 TABLET(75 MG) BY MOUTH EVERY MORNING 90 Tablet 3 11/06/2023 Active apixaban (Eliquis) 5 mg tabletIndications: Paroxysmal atrial fibrillation (HC) TAKE 1 TABLET(5 MG) BY MOUTH TWICE DAILY 180 Tablet 3 11/06/2023 Active pantoprazole (PROTONIX) 40 mg delayed-release tabletIndications: Gastroesophageal reflux disease, unspecified whether esophagitis present Take 1 Tablet (40 mg) by mouth once daily. 90 Tablet 3 11/06/2023 Active nitroglycerin (NITROSTAT) 0.4 mg sublingual tabletIndications: Coronary artery disease involving [place] croix heart without angina pectoris, unspecified vessel or lesion type Place 1 Tablet (0.4 mg) under the tongue every 5 minutes if needed for Chest Pain. Up to 3 tablets in 15 minutes. 50 Tablet 1 11/06/2023 Active pregabalin (LYRICA) 50 mg capsuleIndications :Phantom limb pain (HC) Take 1 Capsule (50 mg) by mouth three times daily. 90 Capsule 3 01/01/2024 Active sacubitril-valsart an (ENTRESTO 24 MG-26 MG TABLET) 24-26 mg tabletIndications: HFrEF (heart failure with reduced ejection fraction) (HC) Take 0.5 Tablets by mouth two times daily. 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 Up to 80 units daily 02/07/2024 Active furosemide (LASIX) 20 mg tabletIndications: HFrEF (heart failure with reduced ejection fraction) (HC) Take 1 tablet (20 mg) once every other day 45 Tablet 2 02/25/2024 Active Active Problems Problem Noted Date Diagnosed [...] associated with type 2 diabetes mellitus 12/09/2022 correction current use of insulin 12/09/2022 NSTEMI (non-ST elevated myocardial infarction) 0 12/09/[address] [place] gu[place] of extremity with ulceration 11/25/2019 HTN (hypertension) 10/28/2015 Hyperlipidemia LDL goal <70 10/28/2015 Adenomatous colon polyp 04/13/2015 Overview (03/16/2020): Colonoscopy 04/2015 polyps repeat in 5 years Colonoscopy 03/2020 polyps, repeat in 5 years Background diabetic retinopathy(362.01) 07/10/19 08 Unspecified hearing loss 07/10/2007 Coronary atherosclerosis of unspecified type of vessel, st. croix or graft Overview (11/08/2011): 4 vessel CABG 2001 Lexiscan only for cardiac evaluation - no treadmill Other ill-defined and unknow n causes of morbidity and mortality Impotence of organic origin Resolved Problems Problem Noted Date Diagnosed Date Resolved Date Type 2 diabetes mellitus with complication 11/16/2017 12/22/2022 Heart disease, unspecified 0 07/10/2007 Encounters Date Type Department Care Team Description 03/14/2024 Telephone [facility] [address] [facility] [address] [place] [address] Shade Manuel MD 03/13/2024 11:00 AM CDT Patient Outreach [facility] [address] [place] [address] 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 [address] Shira Morley MD Del Castillo, Isabelle Jennifer Rose Farro, MD Altered mental status, unspecified altered mental status type (Primary Dx); Lethargy; ALEX (acute kidney injury) (HC); Dehydration Discharge Disposition: Home Self Care 02/10/2024 Travel 02/07/2024 11:00 AM CDT Patient Outreach [address] [address] Priyanka Hummel RN Diabetes (F/u insulin management) 02/07/2024 Travel 02/04/2024 Orders Only [facility] Scanner 1 scan: (1-Ord) [facility], CERVICAL SPINE WO, 02/04/2024 02/04/2024 Orders Only [facility] Scanner 1 scan: (1-Ord) [place], CT HEAD/BRAIN WO CON, 02/04/2024 02/04/2024 Nurse Triage [facility] [address] [place] [address] Melquiades Man MD Neck Pain/problem 01/17/2024 12:40 PM CDT Orders Only [facility] [address] [place] [address] Lab, Sherita Lab 01/17/2024 11:00 AM CDT Patient Outreach [facility] [address] [place] [address] Grevious, Priyanka L, marine painter (Download CGM for insulin management) 01/17/2024 Telephone [facility] [address] [place] [address] Melquiades Man MD 01/17/2024 Travel 01/11/2024 Nurse Triage [facility] [address] [place] [address] Melquiades Man MD Low Blood Pressure 01/11/2024 Nurse Triage [facility] [address] [place] [address] Melquiades Man MD Low Blood Pressure 01/08/2024 1:30 PM CDT Office Visit [facility] [address] [place] [address] Dr [facility]ed [facility] [place] [address] Shade Manuel MD CV Heart Failure Est (EST PT. 6 MONTH F/U) 01/08/2024 Travel 01/04/2024 2:00 PM CDT Office Visit [facility] [address] [place] [address] Tatyana Nguyen PA Diabetes (a1c check ) 01/04/2024 Travel 01/04/[address] [address] Melquiades Man MD Procedure (DISCHARGE) 01/04/[address] [address] Tatyana gNuyen PA Appointment 01/01/2024 10:50 AM CDT Office Visit [address] [address] Melquiades Man MD Pain (Phantom pain in rt foot, surgeon recommends yasmine); Derm Problem (Dark spot on left jewish) 01/01/2024 Travel 12/27/2023 1:00 PM CDT - 12/27/2023 11:59 PM CDT Hospital [facility] [address] [place] [address] Melquiades Man MD Medberry, Kayla, PT 12/27/2023 Travel 12/25/2023 Telephone [facility] [address] [place] [address] Melquiades Man MD 12/25/2023 Telephone [facility] [address] [place] [address] VoteMelquiades lewis MD Form 12/24/2023 12:54 PM CDT - 12/24/2023 11:59 PM CDT Hospital Encounter [facility] [address] [place] [address] Melquiades Man MD Medberry, Kayla, PT 12/24/2023 Travel 12/20/2023 12:58 PM CDT - 12/20/2023 11:59 PM CDT Hospital Encounter [facility] [address] [place] [address] Gunnartedebbie, MD Marco Cleary Kayla, PT 12/20/2023 11:00 AM CDT Patient Outreach [address] [address] Priyanka Hummel RN Diabetes (F/u for insulin management/downloa d CGM) 12/20/2023 Travel 12/17/2023 12:58 PM CDT - 12/17/2023 11:59 PM CDT Hospital Encounter [facility] [address] [place] [address] Melquiades Man MD Medberry, Kayla, PT 12/17/2023 Travel 12/17/2023 Telephone [facility] [address] [place] [address] Melquiades Man MD Verbal Orders from Last 3 Months Immunizations Name Administration Dates Next Due COVID-19 VACCINE COMIRNATY (PFIZER-BIONTECH 30MCG/0.3ML) 12YO+ PFS 03/05/2023 COVID-19 vaccine (Moderna 100mcg/0.5mL) PF, MDV 03/09/2021 COVID-19 vaccine (Moderna 50 mcg/0.5mL) 12YO+ BIVALENT PF, MDV 03/29/2022 COVID-19 vaccine (Pfizer-Bio NTech 30mcg/0.3mL) PF, MDV 03/09/2021,07/24/2020,07/03/2020 Influenza Virus, Unspecified 03/09/2021,02/12/20,03/15/2017 Influenza, High-dose [...] 0 11/06/2023 Social Connections Answer Date Recorded Do you often feel lonely or isolated from those around you? 0 04/30/2023 Financial Resource Strain Answer Date R ecorded Difficulty of Paying Living Expenses 3 04/11/2022 Difficulty of Paying Living Expenses Not on file 04/11/2022 Food Insecurity Answer Date Recorded Do you worry your food will run out before you are able to buy more? 1 03/30/2023 Transportation Needs Answer Date Record ed Does lack of transportation keep you from medica l appointments? 1 04/30/2023 Does lack of transportation keep you from work, meetings or getting things that you need? 1 04/30/2023 Housing Stability Answer Date Recorded What is your housing situation today? 1 04/30/2023 Sex and Gender Information Value Date Recorded Sex Assigned at Not on file Gender Identity Not on file Sexual Orientation Not on file Obstetrics History Last Filed Vital Signs Vital Sign Reading Time Taken Comments Blood Pressure 116/64 02/10/2024 12:30 PM CDT Pulse 81 02/10/2024 12:30 PM CDT Temperature 36.8 ??C (98.2 ??F) 02/10/2024 8:20 AM CD T Respiratory Rate 16 02/10/2024 8:20 AM CDT Oxygen Saturation 94% 02/10/2024 12:30 PM CDT Inhaled Oxygen Concentration - - Weight 90.5 kg (199 lb 8.3 oz) 02/10/2024 8:20 A M CDT Height 175.3 cm (5' 9) 02/10/2024 8:20 AM CDT Body Mass Index 29.46 02/10/2024 8:20 AM CDT Plan of Treatment Upcoming Encounters Date Type Department Care Team (Late st Contact Info) Description 04/15/2024 11: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 Procedure [facility] [address] [facility] [address] [place] [address] Health Maintenance Due Date Last Done Comments Influenza for age 65+ 01/13/2024 03/05/2023 , [...] RSV vaccine for adults or Completed 03/05/2023 COVID-19 vaccine series Completed 02/26/20, 03/05/2023, 03/29/2022, Additional history exists Procedures Procedure Name Priority Date/Time Associated Diagnosis Comments BASIC METABOLIC PANEL Routine 03/13/2024 11:23 AM CDT HFrEF (heart failure with reduced ejection fraction) (HC) BASIC METABOLIC PANEL STAT 02/22/2024 2:36 PM CDT HFrEF (heart failure with reduced ejection fraction) (HC) URINALYSIS MICROSCOPIC STAT 10:19 AM CDT URINE CULTURE ASHLEE 02/10/2024 10:19 AM CDT UA W/ SEDIMENT EXAM REFLEXED PER CRITERIA STAT 02/10/2024 10:[address] HEAD BRAIN WO STAT 02/10/2024 9:00 AM CDT CBC WITH AUTO DIFFERENTIAL STAT 02/10/2024 8:41 AM CDT TSH STAT 02/10/2024 8:41 AM CDT AMMONIA STAT 02/10/2024 8:41 AM CDT LACTATE VENOUS STAT 02/10/2024 8:41 AM CDT HEPATIC FUNCTION PANEL STAT 8:41 AM CDT BASIC METABOLIC PANEL STAT 02/10/2024 8:41 AM CDT CBC WITH AUTO DIFFERENTIAL STAT 02/10/2024 8:41 AM CDT SCAN-CT INTERPRETATION 4 12:00 AM CDT SCAN-CT INTERPRETATION 4 12:00 AM CDT BASIC METABOLIC PANEL Routine 01/17/2024 11:44 AM CDT HFrEF (heart failure with reduced ejection fraction) (HC) HEMOGLOBIN A1C MONITORING (POCT) Routine 01/04/2024 2:14 PM CDT 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 GLUCOSE 115 65 - 139 mg/dL [facility] Comment: ? Non-fasting reference interval UREA NITROGEN (BUN) 38(H) 7 - 25 mg/dL [facility] CREATININE 1.85(H) 0.70 - 1.22 mg/dL [facility] EGFR 36(L) > OR = 60 mL/min/1.7 3m2 [facility] BUN/CREATININE RATIO 21 6 - 22 (calc) [facility] SODIUM 141 135 - 146 mmol/L [facility] POTASSIUM 4.0 3.5 - 5.3 mmol/L [facility] CHLORIDE 108 98 - 110 mmol/L [facility] CARBON DIOXIDE 24 20 - 32 mmol/L [facility] ELECTROLYTE BALANCE 9 7 - 17 mmol/L (calc) [facility] CALCIUM 8.8 8.6 - 10.3 mg/dL [facility] Blood BLOOD SPECIMEN / Unknown 03/13/2024 11:23 AM CDT 03/13/2024 11:24 AM CDT Narrative [facility] - 03/14/2024 3:00 AM CDT FASTING:NO FASTING: NO Shade Manuel MD CHEMISTRY Performing Organization Address City/State/[facility] Co de Phone Number [facility] [address] [place] [address], [facility] [place] [address] [place] [address] * URINALYSIS MICROSCOPIC (02/10/2024 10:19 AM CDT) RBC None Seen 0-2, None Seen /HPF 02/10/2024 10:45 AM CDT [facility] WBC None Seen 0-2, 3-5, None Seen /HPF 02/10/2024 10:45 AM CDT [facility] BACTERIA None Seen None Seen, Rare, Few Bacteria/ HPF 02/10/2024 10:45 AM CDT [facility] EPITHELIAL CELLS Few None Seen, Few Epi/HPF 02/10/2024 10:45 AM CDT [facility] Urine URINE SPECIMEN / Unknown Non-Blood / Unknown 02/10/2024 10:19 AM CDT 02/10/2024 10:23 AM CDT Shira Morley MD URINE [facility] [address] [place] [address] * URINE CULTURE (02/10/2024 10:19 AM CDT) CULTURE 10-50,000 CFU/mL of multiple organisms, probable contaminants 02/11/2024 10:36 AM CDT [facility] Urine URINE SPECIMEN / Unknown Non-Blood / Unknown 02/10/2024 10:19 AM CDT 02/10/2024 10:23 AM CDT Shira Morley MD MICROBIOLOGY [facility] [address] [place] [address], [place] * (ABNORMAL) UA W/ SEDIMENT EXAM REFLEXED PER CRITERIA (02/10/2024 10:19 AM CDT) COLOR Yellow Yellow Color 02/10/2024 10:28 AM [facility] CLARITY Clear Clear Clarity 02/10/2024 10:28 AM [facility] SPECIFIC GRAVITY,URINE 1.015 1.010, 1.015, 1.020, 1.025 02/10/2024 10:28 AM [facility] PH,URINE 5.5 6.0, 7.0, 8.0, 5.5, 6.5, 7.5, 8.5 02/10/2024 10:28 AM [facility] UROBILINOGEN, QUALITATIVE Normal Normal EU/dl 02/10/2024 10:28 AM [facility] PROTEIN, URINE Negative Negative mg/dL 02/10/2024 10:28 AM [facility] GLUCOSE, URINE >=1000(A) Negative mg/dL 02/10/2024 10:28 AM [facility] KETONES,URINE Negative Negative mg/dL 02/10/2024 10:28 AM [facility] BILIRUBIN,URI NE Negative Negative 02/10/2024 10:28 AM CDT [facility] OCCULT BLOOD,URINE Negative Negative 02/10/2024 10:28 AM CDT [facility] NITRITE Negative Negative 02/10/2024 10:28 AM CDT [facility] LEUKOCYTE ESTERASE Negative Negative 02/10/2024 10:28 AM CDT [facility] Urine URINE SPECIMEN / Unknown Non-Blood / Unknown 02/10/2024 10:19 AM CDT 02/10/2024 10:23 AM CDT Shira Morley MD URINE [facility] [address] [place] [address] * CT HEAD BRAIN WO (02/10/2024 9:00 AM CDT) Anatomical Region Laterality Modality HEAD, BRAIN Computed Tomogra phy 02/10/2024 9:10 AM CDT Impressions 02/10/2024 9:10 AM CDT Involutional changes consisting of atrophy and white matter disease. 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 No acute posttraumatic findings intracranially. Please note that all CT scans at this facility use dose modulation, iterative reconstruction, and/or weight-based dosing when appropriate to reduce radiation dose to as low as reasonably achievable. Dictated by Tom Stauffer MD @ 02/10/2024 9:10:59 AM (Electronically Signed) Narrative 02/10/2024 9:10 AM CDT For Patients: ??As a result of the 21st Century Cures Act, medical imaging exams and procedure reports are released immediately into your electronic medical record. ??You may view this report before your referring provider. ??If you have questions, please contact your health care provider. INDICATION: Trauma COMPARISON: None TECHNIQUE: CT examination of the head was performed as axial sections without intravenous contrast. Images were obtained from the vertex of the skull through the skull base. Please note that all CT scans at this facility use dose modulation, iterative reconstruction, and/or weight-based dosing when appropriate to reduce radiation dose to as low as reasonably achievable. FINDINGS: The brain shows no sign of mass lesion, mass effect, hemorrhage, or edema. There are areas of encephalomalacia in the right frontal lobe consistent with old right frontal infarcts. There is also encephalomalacia of the right cerebellar hemisphere consistent with an old infarct. There are involutional changes. There is mild to moderate cortical atrophy and there is mild to moderate white matter disease. There is no hydrocephalus. The visualized portions of the orbits are normal in appearance. The osseous structures are normal in appearance with no sign of abnormality in the skull base or calvarium. Procedure Note Tom Stauffer MD - 02/10/2024 For Patients: As a result of the Cures Act, medical imagingexams and procedure reports are released immediately into your electronicmedical record. You may view this report before your referring provider.If you have questions, please contact your health care provider. INDICATION: Trauma COMPARISON: None TECHNIQUE: CT examination of the head was performed as axial sections withoutintravenous contrast. Images were obtained from the vertex of the skullthrough the skull base. Please note that all CT scans at this facility use dose modulation,iterative reconstruction, and/or weight-based dosing when appropriate toreduce radiation dose to as low as reasonably achievable. FINDINGS: The brain shows no sign of mass lesion, mass effect, hemorrhage, or edema. There are areas of encephalomalacia in the right frontal lobe consistentwith old right frontal infarcts. There is also encephalomalacia of theright cerebellar hemisphere consistent with an old infarct. There are involutional changes. There is mild to moderate cortical atrophyand there is mild to moderate white matter disease. There is nohydrocephalus. The visualized portions of the orbits are normal in appearance. The osseous structures are normal in appearance with no sign ofabnormality in the skull base or calvarium. IMPRESSION: Involutional changes consisting of atrophy and white matter disease. Oldright frontal and old right cerebellar infarcts. No acute posttraumaticfindings intracranially. Please note that all CT scans at this facility use dose modulation,iterative reconstruction, and/or weight-based dosing when appropriate toreduce radiation dose to as low as reasonably achievable. Dictated by Tom Stauffer MD @ 02/10/2024 9:10:59 AM (Electronically Signed) Shira Morley MD CT * (ABNORMAL) CBC WITH AUTO DIFFERENTIAL (02/10/2024 8:41 AM T) WHITE BLOOD COUNT 7.6 4.5 - 11.0 thou/cu mm 02/10/2024 8:58 AM [facility] RED BLOOD COUNT 3.47(L) 4.30 - 5.90 mil/cu mm 02/10/2024 8:58 AM [facility] HEMOGLOBIN 10.2(L) 13.5 - 17.5 g/dL 02/10/2024 8:58 AM [facility] HEMATOCRIT 32.8(L) 37.0 - 53.0 % 02/10/2024 8:58 AM [facility] MCV 95 80 - 100 fL 02/10/2024 8:58 AM [facility] MCH 29.4 26.0 - 34.0 pg 02/10/2024 8:58 AM [facility] MCHC 31.1(L) 32.0 - 36.0 g/dL 02/10/2024 8:58 AM [facility] RDW 14.9 11.5 - 15.5 % 02/10/2024 8:58 AM [facility] PLATELET COUNT 271 140 - 440 thou/cu mm 02/10/2024 8:58 AM [facility] MPV 10.1 6.5 - 11.0 fL 02/10/2024 8:58 AM [facility] % NEUT 70.9 % 02/10/2024 8:58 AM [facility] % LYMPH 14.1 % 02/10/2024 8:58 AM [facility] % MONO 8.8 % 02/10/2024 8:58 AM [facility] % EOS 5.9 % 02/10/2024 8:58 AM [facility] % BASO 0.3 % 02/10/2024 8:58 AM [facility] ABSOLUTE NEUTROPHILS 5.4 1.7 - 7.0 thou/cu mm 02/10/2024 8:58 AM CDT [facility] ABSOLUTE LYMPHOCYTES 1.1 0.9 - 2.9 thou/cu mm 02/10/2024 8:58 AM CDT [facility] ABSOLUTE MONOCYTES 0.7 <0.9 thou/cu mm 02/10/2024 8:58 AM CDT [facility] ABSOLUTE EOSINOPHILS 0.5(H) <0.5 thou/cu mm 02/10/2024 8:58 AM CDT [facility] ABSOLUTE BASOPHILS 0.0 <0.3 thou/cu mm 02/10/2024 8:58 AM CDT [facility] Blood BLOOD SPECIMEN / Unknown Butterfly / Unknown 02/10/2024 8:41 AM CDT 02/10/2024 8:45 AM CDT Shira Morley MD HEMATOLOGY Performing Organization Address City/[facility]/ZIP Co de Phone Number [facility] [address] [place] [address] * LACTATE VENOUS (02/10/2024 8:41 AM CDT) Pathologist [facility] LACTATE,VENOUS 1.6 0.5 - 2.0 mmol/L 02/10/2024 9:07 AM CDT [facility] Blood BLOOD SPECIMEN / Unknown Butterfly / Unknown 02/10/2024 8:41 AM CDT 02/10/2024 8:45 AM CDT Shira Morley MD CHEMISTRY [facility] [address] [place] [address] * TSH (02/10/2024 8:41 AM CDT) TSH 2.91 0.27 - 4.20 uIU/mL 02/10/2024 9:16 AM CDT [facility] Blood BLOOD SPECIMEN / Unknown Butterfly / Unknown 02/10/2024 8:41 AM CDT 02/10/2024 8:45 AM CDT [facility] - 02/10/2024 9:16 AM CDT In Adults, TSH values between 5.00 and 10.00 uIU/ml do not necessarily indicate the presence of Hypothyroidism. Correlation with clinical findings such as presence of goiter and/or Thyroperoxidase (TPO) Antibody may be helpful. For more information please refer to RONNIE 2004; 291: [id number]. Shira Morley MD CHEMISTRY Performing Organization Address [facility] [facility] Co de Phone Number [facility] [address] [place] [address] * AMMONIA (02/10/2024 8:41 AM CDT) Pathologist [facility] AMMONIA 14 11 - 51 umol/L 02/10/2024 9:07 AM CDT [facility] Blood BLOOD SPECIMEN / Unknown Butterfly / Unknown 02/10/2024 8:41 AM CDT 02/10/2024 8:45 AM CDT [facility] - 02/10/2024 9:07 AM CDT 1. ??Sulfasalazine and its metabolite Sulfapyridine at therapeutic concentrations may lead to falsely low results. 2. ??Temozolomide and its metabolite MTIC may lead to falsely elevated results, and its metabolite AIC may lead to falsely low results. Shira Morley MD CHEMISTRY Performing Organization Address [facility] Co de Phone Number [facility] [address] [place] [address] * (ABNORMAL) HEPATIC FUNCTION PANEL (02/10/2024 8:41 AM CDT) Pathologist [facility] ALBUMIN 3.6(L) 4.0 - 4.9 g/dL 02/10/2024 9:16 AM CDT [facility] PROTEIN,TOTAL 7.5 6.0 - 8.0 g/dL 02/10/2024 9:16 AM CDT [facility] BILIRUBIN,TOTAL 0.3 0.0 - 1.2 mg/dL 02/10/2024 9:16 AM CDT [facility] BILIRUBIN,DIRECT 0.1 0.0 - 0.2 mg/dL 02/10/2024 9:16 AM CDT [facility] BILIRUBIN,INDIRE CT 02/10/2024 9:16 AM CDT [facility] Comment:Unable to calculate, Direct Bili <0.2 ALK PHOSPHATASE 95 40 - 129 IU/L 02/10/2024 9:16 AM CDT [facility] ALT (SGPT) 13 10 - 50 IU/L 02/10/2024 9:16 AM CDT [facility] AST (SGOT) 19 10 - 50 IU/L 02/10/2024 9:16 AM CDT [facility] Blood BLOOD SPECIMEN / Unknown Butterfly / Unknown 02/10/2024 8:41 AM CDT 02/10/2024 8:45 AM CDT Shira Morley MD CHEMISTRY [facility] [address] [place] [address] * SCAN-CT INTERPRETATION (02/04/2024 12:00 AM CDT) Only the most recent of2 resultswithin the time period is included. Anatomical Region Laterality Modality Other Scanner OTHER * (ABNORMAL) HEMOGLOBIN A1C MONITORING (POCT) (01/04/2024 2:14 PM CDT) HEMOGLOBIN A1C MONITORING (POCT) 9.7(H) <=6.4 % 01/04/2024 2:24 PM CDT [facility] Blood BLOOD SPECIMEN / Unknown Venipuncture / Unknown 01/04/2024 2:14 PM CDT 01/04/2024 2:16 PM CDT Narrative [facility] - 01/04/2024 2:24 PM CDT ? (<=6.9%) [...] Untreated Anemias, Splenectomy ? 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, has chronic open wounds/skin damage, has long-term percutaneous indwelling medical devices Exclusions for nares collection (if <12 months since positive culture) include all of the previous exclusions plus patients on antibiotics 7 days prior to collection 03/08/2023 05/31/2023 ESBL 04/26/2023 04/26/2023 Advance Directives Documents on File Type Date Recorded Patient Digital Advertising Analyst Harjinder QUINONEZ 03/26/2023 * Full Code (Latest [...] Code Status Discussion: Reviewed Preferences Care Teams All Terrain Vehicle Racer Relationship Specialty Start Date End Date Votel, Melquiades Gray MD [address] [place] [address] PCP - General 11/20/05 Nurses, Advanced Heart Failure [address] [place] [address] Advanced Heart Failure/Transplant Card 01/24/23 Shade Manuel MD [address] [facility] [address] [facility] [place] [id number] Cardiovascular Disease 01/24/23
--- OUTSIDE RECORDS SUMMARY | 2024-03-18 12:44 | XMS_ITS | Clinical Summary ---
Author Organization [facility] Address [address] [place] [address] Care Team Providers Care Electric Distribution Checker Name Role Phone Elsewhere, Pcp Primary Care Provider Unavailabl e Source Comments Patient records contain information from all sites at [facility]. For routine questions regarding patient records, call [phone] during business hours, M-F 8:00 AM - 5:00 PM Central Time. Record requests for emergency care only can be directed to [phone] at any time.[facility] Allergies No known active allergies Medications blood sugar diagnostic strips (Contour Next Test Strips) Dispense item covered by pt ins. E10.9 IDDM type I - Test 4 times/day. Reason: complicated diabetes. 3 Active sennosides-docu sate sodium (SENOKOT-S) 8.6-50 mg per tablet Take 2 tablets by mouth 2 (two) times a day. Active nitroglycerin (NITROSTAT) 0.[address] 1 tablet (0.4 mg total) under the tongue every 5 (five) minutes as needed for chest pain. 25 tablet 11 4 05/23/19 25 Active multivitamin tablet Take 1 tablet by mouth daily. 90 tablet 3 4 05/23/19 25 Active sulfamethoxazol e-trimethoprim (BACTRIM DS) 800-160 mg per tablet Take 1 tablet by mouth 2 (two) times a day. 14 tablet 4 Active acetaminophen (TYLENOL) 325 mg tablet Take 2 tablets (650 mg total) by mouth 3 (three) times a day. In once daily prn 180 tablet 11 4 06/17/19 25 Active apixaban (ELIQUIS) 5 mg tablet Take 1 tablet (5 mg total) by mouth 2 (two) times a day. 180 tablet 3 06/17/19 25 Active atorvastatin (LIPITOR) 40 mg tablet Take 1 tablet (40 mg total) by mouth daily. 90 tablet 3 4 06/17/19 25 Active clopidogreL (PLAVIX) 75 mg tablet Take 1 tablet (75 mg total) by mouth daily. 30 tablet 11 4 06/17/19 25 Active diclofenac sodium (VOLTAREN) 1 % gel Apply 2 g topically 4 (four) times a day. Apply to right shoulder, right neck, right lower back for pain.. 100 g 4 06/17/19 25 Active emollient cream, VANICREAM, Apply 1 Application topically 2 (two) times a day. Apply to bilateral lower extremities for dry skin. 120 g 4 Active furosemide (LASIX) 20 mg tablet Take 1 tablet (20 mg total) by mouth 2 (two) times a day. 180 tablet 06/17/19 25 Active insulin aspart U-100 (NovoLOG Flexpen U-100 [...] than 399 give 12 units 15 mL 06/17/19 25 Active insulin glargine (LANTUS) 100 unit/mL injection Inject 19 Units under the skin every morning. 5.7 mL 4 Active ketoconazole (NIZORAL) 2 % cream Apply 1 Application topically 2 (two) times a day as needed for irritation or rash. 15 g 4 Active metoprolol succinate (TOPROL-XL) 25 mg 24 hr tablet Take 0.5 tablets (12.5 mg total) by mouth daily. 45 tablet 3 4 06/17/19 25 Active mirtazapine (REMERON) 7.5 mg tablet Take 1 tablet (7.5 mg total) by mouth at bedtime. 90 tablet 04/20 25 Active spironolactone (ALDACTONE) 25 mg tablet Take 1 tablet (25 mg total) by mouth daily. 90 tablet 3 4 06/17/19 25 Active triamcinolone (KENALOG) 0.1 % cream Apply 1 Application topically 2 (two) times a day as needed for irritation. 30 g 4 Active polyethylene glycol (MIRALAX) 17 gram powder packet Take 1 packet (17 g total) by mouth daily. 90 packet 3 4 06/17/19 25 Active peg 400-propylene glycol, PF, (SYSTANE) 0.4-0.3 % ophthalmic solution Administer 2 drops into both eyes at bedtime as needed for dry eyes. 1 each 4 Active levothyroxine (SYNTHROID, LEVOTHROID) 75 mcg tablet Take 1 tablet (75 mcg total) by mouth every morning before breakfast. 90 tablet 3 4 06/17/19 25 Active Active Problems Problem Noted Date Diagnosed Date Other Complications Of Amputation Stump 06/15/19 24 Overview (06/15/2023): Part of the scab came off when the nurse was cleaning the area with saline and a guaze. Assessment & Plan (06/15/2023 4:18 PM PUBLIC HOUSING INTERVIEWER): The wound bed is clean. A thin layer of silver stat will be applied with a gauze. Change daily. 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 Left Heel: Area continues to improve. Wound measures 1.0ifV7eg. Edges well defined, attached and 100% re-epithelialized tissues. Granulation tissue is observed along the lining of the edges under the bed of slough/eschar. Eschar is soft but not mushy. Wound bed is still approx 95% or more of slough/eschar. Scant drainage with dressing change. Resident tolerated cares without any concerns. New wound orders as follows: Assessment & Plan (06/15/2023 4:10 PM PUBLIC HOUSING INTERVIEWER): 1: Gently cleanse area with NS. Pat dry. 2. Skin prep to gonsalo-wound. 3. Santyl to wound bed only. 4. Place gauze over wound. 5. cover with island dressing. 6. Change dressing daily. He may be discharged to home with home nursing for wound care . Assessment & Plan (06/01/2023 2:33 PM PUBLIC HOUSING INTERVIEWER): Continue wound care and have LINE CAMERA OPERATOR evaluate in one week. Dementia 05/20/2023 Overview (05/24/2023): No documented dementia or behaviors Assessment & Plan (05/24/2023 5:57 PM PUBLIC HOUSING INTERVIEWER): He has low hearing which could contribute to him not understanding Assessment & Plan (05/20/2023 4:20 PM PUBLIC HOUSING INTERVIEWER): Although initial BIMS testing scored 14, he has had episodes of what seems to be sundowning with strong suspicion of underlying dementia. Will have OT further evaluate. Hyperglycemia 04/22/2023 Overview (04/22/2023): Prior to recent hospitalization, insulin glargine dose was 25 units daily and short-acting insulin 10 units with meals. Assessment & Plan (05/24/2023 6:00 PM PUBLIC HOUSING INTERVIEWER): A1C 7.2 He will follow up with his PCP in [place] Assessment & Plan (04/22/2023 8:28 PM PUBLIC HOUSING INTERVIEWER): His appetite has been poor and he has been getting much less insulin than he is used to. His sugars however have been high. Will gradually increase mealtime insulin to 7 units. Previously on 10 units with meals. 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 [...] site Assessment & Plan (04/16/2023 7:55 PM PUBLIC HOUSING INTERVIEWER): Pain is well controlled. Stump care consists of washing with normal saline and dry. Cover with dry gauze or ABD b.i.d. he is wearing the knee brace to maintain extension in his working with therapies. He has follow-up with vascular surgery 05/11/2023. Assessment & Plan (04/12/2023 4:53 PM PUBLIC HOUSING INTERVIEWER): Patient and mentioned he is doing well [...] 75mcg. Assessment & Plan (06/05/2023 9:25 PM PUBLIC HOUSING INTERVIEWER): TSH value improved compared to prior value of 16.0 a month ago. Resident /nursing denied symptoms of hypothyroidism. Last T4 was 0.92 in April 2023. vice president corporate communications confirmed levothyroxine is given every morning (6am) without other medications. Therefore, we will increase levothyroxine 50mcg to 75mcg and rechecked TSH in 6 weeks. Nursing instructed to continue monitoring for symptoms of hypothyroidism and contact [facility] provider if any concerns. Assessment & Plan (05/24/2023 5:24 PM PUBLIC HOUSING INTERVIEWER): Increase levothyroxine to 50 mcg daily. long term may give two 25 mcg tablets to equal 50 mcg. He will be discharging in a week Assessment & Plan (04/23/2023 12:56 PM PUBLIC HOUSING INTERVIEWER): TSH will be done. He is currently on levothyroxine 25 mcg daily. Dose will need to be adjusted if TSH is elevated. Assessment & Plan (04/16/2023 7:56 PM PUBLIC HOUSING INTERVIEWER): Recheck TSH mid April. Assessment & Plan (04/12/2023 4:45 PM PUBLIC HOUSING INTERVIEWER): Continue levothyroxine. TSH reordered. 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 Assessment & Plan (04/12/2023 4:08 PM PUBLIC HOUSING INTERVIEWER): Plans to discharge back home. Patient remains [...] status Assessment & Plan (05/24/2023 5:15 PM PUBLIC HOUSING INTERVIEWER): He will be full code Assessment & Plan (01/17/2023 2:30 PM CDT): Continue full code status Hyperlipidemia 01/16/2023 Overview (05/24/2023): On atorvastatin Assessment & Plan (05/24/2023 6:01 PM PUBLIC HOUSING INTERVIEWER): Stay on statin Assessment & Plan (01/17/2023 2:35 PM CDT): Continue atorvastatin Assessment & Plan (01/17/2023 2:01 PM CDT): Continue atorvastatin Weakness General 01/16/2023 Overview (01/16/2023): This is multifactorial and related to recent hospitalizations and multiple comorbidities. Assessment & Plan (06/05/2023 9:26 PM PUBLIC HOUSING INTERVIEWER): Denied weakness. We will continue therapy. Assessment & Plan (05/24/2023 6:05 PM PUBLIC HOUSING INTERVIEWER): He is getting stronger with therapy. He will continue therapy when he gets his prosthesis. He will have a wheelchair upon discharge. Assessment & Plan (04/12/2023 4:09 PM PUBLIC HOUSING INTERVIEWER): Verbalized improvement with weakness. We will continue [...] 04/11/2023 Assessment & Plan (04/12/2023 3:58 PM PUBLIC HOUSING INTERVIEWER): Stable. Denied dizziness, lightheadedness, shortness of breaths and palpitation. Assessment & Plan (01/17/2023 2:30 PM CDT): Stable. Assessment & Plan (01/17/2023 1:58 PM CDT): Stable. Assessment & Plan (01/16/2023 7:16 PM CDT): Most recent hemoglobin 9.3. Atherosclerotic Heart Diseas e Of [place] Coronary Artery Without Angina Pectoris 01/15/2023 [...] RAP). Assessment & Plan (05/24/2023 5:52 PM PUBLIC HOUSING INTERVIEWER): Stable on current meds Assessment & Plan (04/23/2023 1:02 PM PUBLIC HOUSING INTERVIEWER): BNAP 31,578 on 04/16/23. Dr. Gerardo increased furosemide to 40 mg bid and added spironolactone 25 mg daily. Weight today in [place] was 174 lb. No edema noted in left leg. No dyspnea. On O2 per N/C continuous. No change in medications until renal function results are available. Assessment & Plan (04/16/2023 7:41 PM PUBLIC HOUSING INTERVIEWER): He had multiple medication changes during hospitalization including discontinuation of spironolactone and Entresto. Farxiga is being held. Metoprolol and furosemide doses were decreased. Assessment & Plan (04/12/2023 4:01 PM PUBLIC HOUSING INTERVIEWER): No admission weight yet. Nursing to check [...] 12/22/2022 Assessment & Plan (04/22/2023 8:26 PM PUBLIC HOUSING INTERVIEWER): Pro BN AP earlier today greater than [...] Apixaban Assessment & Plan (05/24/2023 5:53 PM PUBLIC HOUSING INTERVIEWER): jail anticoagulation on apixaban Assessment & Plan (04/23/2023 1:03 PM PUBLIC HOUSING INTERVIEWER): Ventricular rate controlled today Assessment & Plan (04/12/2023 3:59 PM PUBLIC HOUSING INTERVIEWER): HR well controlled ranging from 82-85. Continue care plan. Assessment & Plan (01/17/2023 2:31 PM CDT): HR well controlled ranging from 64-99. Continue care plan. Assessment & Plan (01/16/2023 8:24 AM CDT): HR well controlled. Continue care plan. 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 Assessment & Plan (05/24/2023 5:20 PM PUBLIC HOUSING INTERVIEWER): Nurse reports he is nonadherent to his [...] daily Assessment & Plan (06/07/2023 2:51 PM PUBLIC HOUSING INTERVIEWER): Blood sugars have been elevated due to [...] hypoglycemia. Assessment & Plan (05/29/2023 7:56 PM PUBLIC HOUSING INTERVIEWER): Patient's blood sugar continued to be on [...] possible. Assessment & Plan (05/24/2023 5:59 PM PUBLIC HOUSING INTERVIEWER): Insulin dependent not always compliant with diet. Glargine will be increased to 17 units. Assessment & Plan (05/22/2023 6:43 PM PUBLIC HOUSING INTERVIEWER): Blood sugar continued to be elevated mostly [...] 3 times daily with meals. Follow-up with LINE CAMERA OPERATOR next week. Dietitian/dietary to visit with patient and to discuss food options. Assessment & Plan (05/20/2023 4:22 PM PUBLIC HOUSING INTERVIEWER): Recent blood sugars in the SNF setting have been elevated. Short and long-acting insulin doses have changed significantly since admission. Will have him follow- up with LINE CAMERA OPERATOR for further review of blood sugars. Assessment & Plan (04/23/2023 1:04 PM PUBLIC HOUSING INTERVIEWER): Blood sugars not controlled. Increase Lantus to 14 units from 12. Assessment & Plan (04/16/2023 7:42 PM PUBLIC HOUSING INTERVIEWER): Was previously on glipizide and higher doses of mealtime aspart. Blood sugars are being checked 4 times daily. May need insulin readjusted. Assessment & Plan (04/12/2023 4:04 PM PUBLIC HOUSING INTERVIEWER): Blood sugars have been I< 200s. Currently [...] to 25 units and follow-up. Atherosclerosis Of [place] Ar teries Of Other Extremities With [...] 120-130 Assessment & Plan (04/12/2023 4:07 PM PUBLIC HOUSING INTERVIEWER): Images from the original note were not [...] redness. Assessment & Plan (05/24/2023 5:14 PM PUBLIC HOUSING INTERVIEWER): Stable Assessment & Plan (04/29/2023 7:54 PM PUBLIC HOUSING INTERVIEWER): Today, nursing had reported left lower calf and ankle redness with open wound. On assessing the left calf/ankle, there was an open skin area (abrasion) that has no redness, swelling nor drainage. The skin was not warmth to touch and patient denied pain at 0/10 (nurse diabetes manager was in attendance during visit). Nursing stated does look better than what it was this morning. They have been cleaning the wound area in apply Mepilex. Since there was no symptoms or evidence of infection on the left lower calf and ankle redness with open wound, nursing was instructed to continue skin check daily and current dressing. Contact [facility] providers if worsening skin condition. Of [...] COVID-19 12/27/2022. Treated with remdesivir at [facility]. Anemia 01/16/2023 04/12/2023 Overview (04/12/2023): Lab Results Component Value Date WBC 9.0 04/11/2023 HGB 7.8 (L) 04/11/2023 HCT 24.9 (L) 04/11/2023 MCV 95 04/11/2023 PLT 381 04/11/2023 Assessment & Plan (04/12/2023 3:57 PM PUBLIC HOUSING INTERVIEWER): CBC reordered. Denied dizziness, lightheadedness, shortness of [...] 04/11/2023 Assessment & Plan (04/12/2023 4:05 PM PUBLIC HOUSING INTERVIEWER): BMP ordered. 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 Med Refill from Last 3 Months Social History Tobacco Use Types Packs/Day Years Used Date Smoking Tobacco: Former Cigarettes Smokeless Tobacco: Never Tobacco Cessation:Counseling Given: Not Answered Nutrition Answer Date Recorded Nutrition: EVOO Fat Source Unknown 10/15 Nutrition: Servings of Fruits/Vegetables per Day Not on file 10/15/2020 Dental Answer Date Recorded Dental: Regular Dentist Unknown 11/04/19 Sex and Gender Information Value Date Recorded Sex Assigned at Not on file Legal Sex Male 11:26 AM CDT Gender Identity Not on file Sexual Orientation Not on file Last Filed Vital Signs Vital Sign Reading Time Taken Comments Blood Pressure 107/66 06/18/2023 1:10 PM PUBLIC HOUSING INTERVIEWER Pulse 78 06/18/2023 1:10 PM PUBLIC HOUSING INTERVIEWER Temperature 36.6 ??C (97.8 ??F) 06/18/2023 1:10 PM CS T Respiratory Rate 16 06/18/2023 1:10 PM PUBLIC HOUSING INTERVIEWER Oxygen Saturation 95% 06/18/2023 1:10 PM PUBLIC HOUSING INTERVIEWER Inhaled Oxygen Concentration - - Weight 75.8 kg (167 lb) 06/18/2023 1:10 PM PUBLIC HOUSING INTERVIEWER Height 175.3 cm (5' 9) 04/12/2023 3:21 PM PUBLIC HOUSING INTERVIEWER Body Mass Index 24.66 04/12/2023 3:21 PM PUBLIC HOUSING INTERVIEWER Plan of Treatment Health Maintenance Due Date Last Done Comments Hepatitis B Vaccines (1 of 3 - Risk 3-dose series) 2001 Fall Risk Screen (Annual) 05/14/2023 DTaP,Tdap,and Td Vaccines (2 - Td or Tdap) 01/21/2031 01/21/2021, 03/06/2006 Pneumococcal vaccine (65+ years) Completed 01/21/2015, 02/09/2011, 03/06/2006 Zoster Vaccines Completed 01/21/2021, 10/21/2020 RSV vaccine - (32-36 weeks) or 60+ years Completed 03/05/2023 COVID-19 Vaccine Completed 02/26/2024, , 03/29/2022, Additional history exists Influenza Vaccine Completed 02/26/2024, , 04/05/2022, Additional history exists IPV Vaccines Aged Out No longer eligi ble based on patient's age to complete this topic Insurance MEDICARE [facility] Advance Directives For more information, please contact: [phone] * DNR/DNI (Latest Code Status on File) Date Activated Date Inactivated Comments 05/24/2023 6:14 PM * DNR/DNI Date Activated Date Inactivated Comments 04/12/2023 4:11 PM 04/16/2023 7:15 AM Care Teams Electric Distribution Checker Relationship Specialty Start Date End Date Elsewhere, Pcp PCP - General Internal Medicine 08/28/23
--- OUTSIDE RECORDS SUMMARY | 2024-03-18 12:44 | XMS_ITS | Data Portability ---
Author Organization [facility] Dominick gy, [facility] Address [address] [place] [address] Care Team Providers Care Director Information Name Role Phone VOTELPARVEZ Primary Care Provider [...] Address Organization Details Last Updated DateTime 11/28/2023 07981.78 g 23 kg/m2 177.8 cm [facility] 11/28/2023 14:16:54 Social History Question Answer Notes LastModified by Organizat ion Details LastModified Time Tobacco Smoking Status Former Smoker [facility] Ryan winn [facility] 11/28/2023 14:22:10 What Is Your Level [...] 14:20:36 Notes:skin cancer-dad Medical History Condition Response Diabetes Y High Blood Pressure Y Kidney Stones N High Cholesterol Y Immunizations Vaccine Type Date Status Provider Name and Address Organization Details Recorded Time Influenza, adjuvanted, trivalent, PF 01/10/2018 completed Bennett winn [facility] 11/28/2023 14:17:02 Influenza, adjuvanted, trivalent, PF 02/12/2020 completed Bennett winn [facility] 11/28/2023 14:17:02 Influenza, high-dose, quadrivalent, PF 03/09/2021 completed Bennett winn [facility] 11/28/2023 14:17:02 Influenza, high-dose, quadrivalent, PF 04/05/2022 completed [facility] null, [facility] 11/28/2023 14:17:02 Influenza, adjuvanted, quadrivalent, PF 03/05/2023 completed [facility] Mg-Valer o null, [facility] 11/28/2023 14:17:02 COVID-19, mRNA, LNP-S, PF, 100 mcg/0.5mL dose or 50 mcg/0.25mL dose 03/09/2021 completed [facility] null, [facility] 11/28/2023 14:17:02 COVID-19, mRNA, LNP-S, PF, 30 mcg/0.3 mL dose 07/03/2020 completed [facility] null, [facility] 11/28/2023 14:17:02 COVID-19, mRNA, LNP-S, PF, 30 mcg/0.3 mL dose 07/24/2020 completed [facility] null, [facility] 11/28/2023 14:17:02 COVID-19, mRNA, LNP-S, bivalent, PF, 50 mcg/0.5 mL or 25mcg/0.25 mL dose 03/29/2022 completed [facility] Mg-Valer o null, [facility] 11/28/2023 14:17:02 RSV, bivalent, protein subunit RSVpreF, diluent reconstituted, 0.5 mL, PF 03/05/2023 [facility], [facility] 11/28/2023 14:17:02 COVID-19, mRNA, LNP-S, PF, estrella-sucrose, 30 mcg/0.3 mL 03/05/2023 completed [facility] null, [facility] 11/28/2023 14:17:02 pneumococcal polysaccharide PPV23 02/09/2011 [facility], [facility] 11/28/2023 14:17:02 pneumococcal polysaccharide PPV23 03/06/2006 completed [facility] null, [facility] 11/28/2023 14:17:02 influenza, unspecified formulation 03/15/2017 completed [facility] null, [facility] 11/28/2023 14:17:02 Pneumococcal conjugate PCV 13 01/21/2015 completed [facility] Mg[facility]Valer o null, [facility] 11/28/2023 14:17:02 Influenza, high-dose, trivalent, PF 01/21/2015 completed [facility] null, [facility] 11/28/2023 14:17:02 Influenza, high-dose, trivalent, PF 03/07/2019 completed [facility], [facility] 11/28/2023 14:17:02 Influenza, split virus, trivalent, preservative 01/30/2013 completed [facility]er o null, [facility] 11/28/2023 14:17:02 Influenza, split virus, trivalent, preservative 02/26/2003 completed [facility]Valer o null, [facility] 11/28/2023 14:17:02 Influenza, split virus, trivalent, preservative 03/01/2004 completed [facility] null, [facility] 11/28/2023 14:17:02 Influenza, split virus, trivalent, preservative 03/05/2007 completed [facility], [facility] 11/28/2023 14:17:02 Influenza, split virus, trivalent, preservative 03/06/2006 completed [facility] null, [facility] 11/28/2023 14:17:02 Influenza, split virus, trivalent, preservative 03/09/2005 completed [facility], [facility] 11/28/2023 14:17:03 Influenza, split virus, trivalent, preservative 03/09/2008 [facility], [facility] 11/28/2023 14:17:03 Influenza, split virus, trivalent, preservative 03/13/2012 completed [facility] Mg[facility]Valer o null, [facility] 11/28/2023 14:17:03 Influenza, split virus, trivalent, preservative 04/28/2010 completed [facility] Mg[facility]Valer o null, [facility] 11/28/2023 14:17:03 Influenza, split virus, trivalent, PF 02/09/2011 completed [facility] Mg-Valer o null, [facility] 11/28/2023 14:17:03 Influenza, split virus, trivalent, PF 04/05/2009 completed [facility] Mg-Valer o null, [facility] 11/28/2023 14:17:03 Td (adult), 5 Lf tetanus toxoid, preservative free, adsorbed 03/06/2006 [facility], [facility] 11/28/2023 14:17:03 Past Encounters Encounter ID Performer Location Encounter Start Date Encounter Closed Date Diagnosis/Indication Diagnosis SNOMED-CT Code Diagnosis ICD10 Code [id number] Roberto Carballo MD [facility] [address] [place] [address] 11/28/2023 13:46:09 12/04/2023 16:43:22 Phimosis 122137964 N47.1 Health Concerns Section Related Observation LastModified by Organization Detai ls LastModified Time None Recorded Concern Status LastModified by Organization Details LastModified Time None Recorded Advance Directives Directive None Recorded Payers Encounter Date Sequence Insurance Name Policy Number Policy Cherry Covered Member ID Cherry Member ID Guarantor Name 11/28/2023 1 [place] MEDICARE COST [id number] Rosalina Bowers [id number] Rosalina Bowers Notes Date Note Type Note [...] (03/05/07) - 1.40 (04/28/10) Roberto Carballo MD [address] [place] [address],[address], [place], [address], [facility] 11/30/2023 11:21:51
--- OUTSIDE RECORDS SUMMARY | 2024-03-18 12:45 | XMS_ITS ---
Author Organization [facility] Address [address] [place] [address] Care Team Providers Care Lapping Machine Tender Name Role Phone Unavailable Unavailable Unavailable Surgery Details Not on file Complications Check Surgery Details section. Procedure Estimated Blood Loss Check Surgery Details section. Procedure Findings Check Surgery Details section. Procedure Specimens Taken Check Surgery Details section.
--- OUTSIDE RECORDS SUMMARY | 2024-03-18 12:45 | XMS_ITS | Referral Summary ---
Author Organization [facility] Address [address] [place] [address] Care Team Providers Care Environmental Programs Manager Name Role Phone Elsewhere, Pcp Primary Care Provider Unavailabl e Source Comments Patient records contain information from all sites at [facility]. For routine questions regarding patient records, call [phone] during business hours, M-F 8:00 AM - 5:00 PM Central Time. Record requests for emergency care only can be directed to [phone] at any time.[facility] Encounters Date Type Department Care Team Description 03/12/2024 Refill Senior [facility] in [facility] [address] [place] [address] Hannah Castillo, ARYNA, C.N.P. Med Refill from Last 3 Months Allergies No known active allergies Medications blood [...] day. In once daily prn 180 tablet 06/17/19 25 Active apixaban (ELIQUIS) 5 mg tablet Take 1 tablet (5 mg total) by mouth 2 (two) times a day. 180 tablet 06/17/19 25 Active atorvastatin (LIPITOR) 40 mg tablet Take 1 tablet (40 mg total) by mouth daily. 90 tablet 06/17/19 25 Active clopidogreL (PLAVIX) 75 mg tablet Take 1 tablet (75 mg total) by mouth daily. 30 tablet 06/17/19 25 Active diclofenac sodium (VOLTAREN) 1 % gel Apply 2 g topically 4 (four) times a day. Apply to right shoulder, right neck, right lower back for pain.. 100 g 06/17/19 25 Active emollient cream, VANICREAM, Apply [...] than 399 give 12 units 15 mL 4 06/17/19 25 Active insulin glargine (LANTUS) 100 [...] by mouth at bedtime. 90 tablet 3 4 06/17/19 25 Active spironolactone (ALDACTONE) 25 mg tablet [...] guaze. Assessment & Plan (06/15/2023 4:18 PM FLOUR MIXER): The wound bed is clean. A thin layer of silver stat will be applied with a gauze. Change daily. 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 Left Heel: Area continues to improve. Wound measures [id number]. Edges well defined, attached and 100% re-epithelialized tissues. Granulation tissue is observed along the lining of the edges under the bed of slough/eschar. Eschar is soft but not mushy. Wound bed is still approx 95% or more of slough/eschar. Scant drainage with dressing change. Resident tolerated cares without any concerns. New wound orders as follows: Assessment & Plan (06/15/2023 4:10 PM FLOUR MIXER): 1: Gently cleanse area with NS. Pat dry. 2. Skin prep to gonsalo-wound. 3. Santyl to wound bed only. 4. Place gauze over wound. 5. cover with island dressing. 6. Change dressing daily. He may be discharged to home with home nursing for wound care . Assessment & Plan (06/01/2023 2:33 PM FLOUR MIXER): Continue wound care and have PHYSICAL THERAPIST CENTER MANAGER evaluate in one week. Dementia 05/20/2023 Overview (05/24/2023): No documented dementia or behaviors Assessment & Plan (05/24/2023 5:57 PM FLOUR MIXER): He has low hearing which could contribute to him not understanding Assessment & Plan (05/20/2023 4:20 PM FLOUR MIXER): Although initial BIMS testing scored 14, he has had episodes of what seems to be sundowning with strong suspicion of underlying dementia. Will have OT further evaluate. Hyperglycemia 04/22/2023 Overview (04/22/2023): Prior to recent hospitalization, insulin glargine dose was 25 units daily and short-acting insulin 10 units with meals. Assessment & Plan (05/24/2023 6:00 PM FLOUR MIXER): A1C 7.2 He will follow up with his PCP in [place] Assessment & Plan (04/22/2023 8:28 PM FLOUR MIXER): His appetite has been poor and he has been getting much less insulin than he is used to. His sugars however have been high. Will gradually increase mealtime insulin to 7 units. Previously on 10 units with meals. Gi Asst (Current) Anticoagulant Treatment 08/2022 Overview (04/16/2023): On [...] side. 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 He will need a standard wheelchair Mr. Woods was admitted to [facility] April 10 following BK right lower [...] site Assessment & Plan (04/16/2023 7:55 PM FLOUR MIXER): Pain is well controlled. Stump care consists of washing with normal saline and dry. Cover with dry gauze or ABD b.i.d. he is wearing the knee brace to maintain extension in his working with therapies. He has follow-up with vascular surgery 05/11/2023. Assessment & Plan (04/12/2023 4:53 PM FLOUR MIXER): Patient and mentioned he is doing well [...] 75mcg. Assessment & Plan (06/05/2023 9:25 PM FLOUR MIXER): TSH value improved compared to prior value of 16.0 a month ago. Resident /nursing denied symptoms of hypothyroidism. Last T4 was 0.92 in April 2023. residential roofer confirmed levothyroxine is given every morning (6am) without other medications. Therefore, we will increase levothyroxine 50mcg to 75mcg and rechecked TSH in 6 weeks. Nursing instructed to continue monitoring for symptoms of hypothyroidism and contact [place] provider if any concerns. Assessment & Plan (05/24/2023 5:24 PM FLOUR MIXER): Increase levothyroxine to 50 mcg daily. senior living may give two 25 mcg tablets to equal 50 mcg. He will be discharging in a week Assessment & Plan (04/23/2023 12:56 PM FLOUR MIXER): TSH will be done. He is currently on levothyroxine 25 mcg daily. Dose will need to be adjusted if TSH is elevated. Assessment & Plan (04/16/2023 7:56 PM FLOUR MIXER): Recheck TSH mid April. Assessment & Plan (04/12/2023 4:45 PM FLOUR MIXER): Continue levothyroxine. TSH reordered. 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 Assessment & Plan (04/12/2023 4:08 PM FLOUR MIXER): Plans to discharge back home. Patient remains [...] home with home health care. Follow-up with [place] provider Assessment & Plan (01/17/2023 2:06 PM [...] status Assessment & Plan (05/24/2023 5:15 PM FLOUR MIXER): He will be full code Assessment & Plan (01/17/2023 2:30 PM CDT): Continue full code status Hyperlipidemia 01/16/2023 Overview (05/24/2023): On atorvastatin Assessment & Plan (05/24/2023 6:01 PM FLOUR MIXER): Stay on statin Assessment & Plan (01/17/2023 2:35 PM CDT): Continue atorvastatin Assessment & Plan (01/17/2023 2:01 PM CDT): Continue atorvastatin Weakness General 01/16/2023 Overview (01/16/2023): This is multifactorial and related to recent hospitalizations and multiple comorbidities. Assessment & Plan (06/05/2023 9:26 PM FLOUR MIXER): Denied weakness. We will continue therapy. Assessment & Plan (05/24/2023 6:05 PM FLOUR MIXER): He is getting stronger with therapy. He will continue therapy when he gets his prosthesis. He will have a wheelchair upon discharge. Assessment & Plan (04/12/2023 4:09 PM FLOUR MIXER): Verbalized improvement with weakness. We will continue [...] 04/11/2023 Assessment & Plan (04/12/2023 3:58 PM FLOUR MIXER): Stable. Denied dizziness, lightheadedness, shortness of breaths and palpitation. Assessment & Plan (01/17/2023 2:30 PM CDT): Stable. Assessment & Plan (01/17/2023 1:58 PM CDT): Stable. Assessment & Plan (01/16/2023 7:16 PM CDT): Most recent hemoglobin 9.3. Atherosclerotic Heart Diseas e Of [place] Coronary Artery Without Angina Pectoris 01/15/2023 Overview [...] RAP). Assessment & Plan (05/24/2023 5:52 PM FLOUR MIXER): Stable on current meds Assessment & Plan (04/23/2023 1:02 PM FLOUR MIXER): BNAP 31,578 on 04/16/23. Dr. Gerardo increased furosemide to 40 mg bid and added spironolactone 25 mg daily. Weight today in [place] was 174 lb. No edema noted in left leg. No dyspnea. On O2 per N/C continuous. No change in medications until renal function results are available. Assessment & Plan (04/16/2023 7:41 PM FLOUR MIXER): He had multiple medication changes during hospitalization including discontinuation of spironolactone and Entresto. Farxiga is being held. Metoprolol and furosemide doses were decreased. Assessment & Plan (04/12/2023 4:01 PM FLOUR MIXER): No admission weight yet. Nursing to check [...] 12/22/2022 Assessment & Plan (04/22/2023 8:26 PM FLOUR MIXER): Pro BN AP earlier today greater than [...] Apixaban Assessment & Plan (05/24/2023 5:53 PM FLOUR MIXER): [facility] anticoagulation on apixaban Assessment & Plan (04/23/2023 1:03 PM FLOUR MIXER): Ventricular rate controlled today Assessment & Plan (04/12/2023 3:59 PM FLOUR MIXER): HR well controlled ranging from 82-85. Continue care plan. Assessment & Plan (01/17/2023 2:31 PM CDT): HR well controlled ranging from 64-99. Continue care plan. Assessment & Plan (01/16/2023 8:24 AM CDT): HR well controlled. Continue care plan. Senior Care Use Of Insulin Active 12/09/2022 Overview (01/16/2023): On insulin glargine and aspart started during hospitalization December 2022. Assessment & Plan (05/24/2023 5:20 PM FLOUR MIXER): Nurse reports he is nonadherent to his [...] daily Assessment & Plan (06/07/2023 2:51 PM FLOUR MIXER): Blood sugars have been elevated due to [...] hypoglycemia. Assessment & Plan (05/29/2023 7:56 PM FLOUR MIXER): Patient's blood sugar continued to be on [...] sugar diets like he does at the [facility]. I have discussed with nursing on encouraging [...] possible. Assessment & Plan (05/24/2023 5:59 PM FLOUR MIXER): Insulin dependent not always compliant with diet. Glargine will be increased to 17 units. Assessment & Plan (05/22/2023 6:43 PM FLOUR MIXER): Blood sugar continued to be elevated mostly [...] 3 times daily with meals. Follow-up with PHYSICAL THERAPIST CENTER MANAGER next week. Dietitian/dietary to visit with patient and to discuss food options. Assessment & Plan (05/20/2023 4:22 PM FLOUR MIXER): Recent blood sugars in the SNF setting have been elevated. Short and long-acting insulin doses have changed significantly since admission. Will have him follow- up with PHYSICAL THERAPIST CENTER MANAGER for further review of blood sugars. Assessment & Plan (04/23/2023 1:04 PM FLOUR MIXER): Blood sugars not controlled. Increase Lantus to 14 units from 12. Assessment & Plan (04/16/2023 7:42 PM FLOUR MIXER): Was previously on glipizide and higher doses of mealtime aspart. Blood sugars are being checked 4 times daily. May need insulin readjusted. Assessment & Plan (04/12/2023 4:04 PM FLOUR MIXER): Blood sugars have been I< 200s. Currently [...] to 25 units and follow-up. 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 Assessment & Plan (05/24/2023 5:14 PM FLOUR MIXER): Stable Assessment & Plan (04/29/2023 7:54 PM FLOUR MIXER): Today, nursing had reported left lower calf and ankle redness with open wound. On assessing the left calf/ankle, there was an open skin area (abrasion) that has no redness, swelling nor drainage. The skin was not warmth to touch and patient denied pain at 0/10 (nurse information technology security manager was in attendance during visit). Nursing stated does look better than what it was this morning. They have been cleaning the wound area in apply Mepilex. Since there was no symptoms or evidence of infection on the left lower calf and ankle redness with open wound, nursing was instructed to continue skin check daily and current dressing. Contact [facility] providers if worsening skin condition. Of note, [...] remdesivir at [facility]. Anemia 01/16/2023 04/12/2023 Overview (04/12/2023): Lab Results Component Value Date WBC 9.0 04/11/2023 HGB 7.8 (L) 04/11/2023 HCT 24.9 (L) 04/11/2023 MCV 95 04/11/2023 PLT 381 04/11/2023 Assessment & Plan (04/12/2023 3:57 PM FLOUR MIXER): CBC reordered. Denied dizziness, lightheadedness, shortness of [...] 04/11/2023 Assessment & Plan (04/12/2023 4:05 PM FLOUR MIXER): BMP ordered. Assessment & Plan (01/17/2023 2:35 [...] Overview (01/15/2023): Onychomycosis of toenails; Original Code: [id number] Original Codesystem: SNOMED CT Classification: Medical Confirmation [...] Date Recorded Dental: Regular Dentist Unknown 11/04/19 23 Sex and Gender Information Value Date Recorded Sex Assigned at Not on file Legal Sex Male 11:26 AM CDT Gender Identity Not on file Sexual Orientation Not on file Last Filed Vital Signs Vital Sign Reading Time Taken Comments Blood Pressure 107/66 06/18/2023 1:10 PM FLOUR MIXER Pulse 78 06/18/2023 1:10 PM FLOUR MIXER Temperature 36.6 ??C (97.8 ??F) 06/18/2023 1:10 PM CS T Respiratory Rate 16 06/18/2023 1:10 PM FLOUR MIXER Oxygen Saturation 95% 06/18/2023 1:10 PM FLOUR MIXER Inhaled Oxygen Concentration - - Weight 75.8 kg (167 lb) 06/18/2023 1:10 PM FLOUR MIXER Height 175.3 cm (5' 9) 04/12/2023 3:21 PM FLOUR MIXER Body Mass Index 24.66 04/12/2023 3:21 PM FLOUR MIXER Plan of Treatment Not on file Insurance MEDICARE [facility] Advance Directives For more information, please contact: [phone] * DNR/DNI (Latest Code Status on File) Date Activated Date Inactivated Comments 05/24/2023 6:14 PM * DNR/DNI Date Activated Date Inactivated Comments 04/12/2023 4:11 PM 04/16/2023 7:15 AM Care Teams Environmental Programs Manager Relationship Specialty Start Date End Date Elsewhere, Pcp PCP - General Internal Medicine 08/28/23
--- OUTSIDE RECORDS SUMMARY | 2024-03-18 12:45 | XMS_ITS | Encounter Summary ---
Author Organization [facility] Address [address] [place] [address] Care Team Providers Care Bale Stacker Name Role Phone Elsewhere, Pcp Primary Care Provider Unavailabl e Reason for Visit * Reason Comments Med Refill Encounter Details Date Type Department Care Team (Late st Contact Info) Description 03/12/2024 Refill Senior Services in [facility] [address], [place] [phone] Hannah Castillo, RAYNA, C.N.P. [address] [facility] [address] [place] [phone] Med Refill Social History Tobacco Use Types Packs/Day Years [...] on filedocumented in this encounter Care Teams Bale Stacker Relationship Specialty Start Date End Date Elsewhere, Pcp PCP - General Internal Medicine 08/28/23 documented as of this encounter
== END 2024-03-18 12:41 | disposition home or self-care (01) ==
LOC: WOUND 12:41
PROVIDERS: PCP Family Medicine; Visit Provider Nurse Practitioner Family
DX: E11.621 Type 2 diabetes mellitus with foot ulcer (principal); L89.620 Pressure ulcer of left heel, unstageable; Z89.611 Acquired absence of right leg above knee; Z79.4 Long term (current) use of insulin; Z79.84 Long term (current) use of oral hypoglycemic drugs
CPT/HCPCS: 11042; G0463

== ENCOUNTER 2024-03-25 12:19 | Outpatient (CLI) | payer OTHER, MEDICARE, BC, SELFPAY ==
--- OUTSIDE RECORDS SUMMARY | 2024-03-25 12:22 | XMS_ITS | Continuity of Care Document ---
Author Name [facility] Organization [facility] Care Team Providers Care Engine Dynamometer Tester Name Role Phone [facility] Unavailable Unavailable Problems Combined list of problems from Department of Defense and Veterans Affairs facilities. It does not include entries that were removed or entered in error. Problem Status Onset Date Problem Type Date of Resolution Comments Source Exposure to potentially hazardous substance ([facility] [id number]) Active 07/20/19 24 Condition Jul 20, 2023 Entered By: MECHELLE DEMPSEY Comment: [facility] Documentation Initiative [facility] CAD - Coronary Artery Disease ([facility] [id number]) Active Condition [place] ([facility]) CHF - Congestive Heart Failure ([facility] [id number]) Active Condition [place] ([facility]) Diabetes Mellitus Type 2 ([facility] [id number]) Active Condition [place] ([facility]) History of amputation of right leg through tibia and fibula Active Condition [place] ([facility]) HTN - Hypertension ([facility] [id number]) Active Condition [place] ([facility]) Hyperlipidemia ([facility] [id number]) Active Condition [facility]) Hypothyroidism ([facility] [id number]) Active Condition [place] ([facility]) Long-term current use of insulin Active Condition [place] ([facility]) Peripheral neuropathy due to type 2 diabetes mellitus Active Condition [place] ([facility]) Diagnosis: ICD-10-CM H90.3 Sensorineural hearing loss, bilateral Active Diagnosis [facility] Diagnosis: ICD-10-CM Z89.511 Acquired absence of right leg below knee Active Diagnosis [facility] Diagnosis: ICD-10-CM L89.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, stage 3 Active Diagnosis [place] ([facility]) Diagnosis: ICD-10-CM Z46.1 Encounter for fitting and adjustment of hearing aid Active Diagnosis [facility] Diagnosis: ICD-10-CM R53.1 Weakness Active Diagnosis [facility] Diagnosis: ICD-10-CM Z74.09 Other reduced mobility Active Diagnosis [facility]) Diagnosis: ICD-10-CM E11.9 Type 2 diabetes mellitus without complications Active Diagnosis [place] ([facility]) Diagnosis: ICD-10-CM I50.9 Heart failure, unspecified Active Diagnosis [place] ([facility]) Diagnosis: ICD-10-CM R26.89 Other abnormalities of [...] KAYLI Jackson WOUND CARE ORDERS TOPICA L 02/16/2024 [id number] KATHY MURPHY 2022 40 [facility] CLOPIDOGREL BISULFATE 75MG TAB TAKE ONE [...] 90 UNITS/DA Y SUBCUT ANEOUS ACTIVE 03/12/2025 [id number] RYAN [place] 2023 15 [place] [facility] ([facility]) INSULIN,ASP ART,HUMAN [...] Y SUBCUT ANEOUS DISCONT INUED (EDIT) 01/10/2025 [id number] HENRIKRYAN 2023 10 [place] [facility] ([facility]) INSULIN,ASP ART,HUMAN [...] Y SUBCUT ANEOUS DISCONT INUED (EDIT) 11/08/2024 [id number] RYAN [place] 2023 10 [place] [facility] ([facility]) LEVOTHYROXI NE NA 75MCG TAB (SYNTHROID) TAKE ONE TABLET BY MOUTH EVERY DAY ORAL ACTIVE RYAN [place] 2023 [place] [facility] ([facility]) METOPROLOL SUCCINATE TAB,SA TAKE 12.5 MG BY MOUTH TWICE A DAY ORAL ACTIVE RYAN [place] 2023 [place] [facility] ([facility]) MIRTAZAPINE TAB TAKE 7.5 MG BY MOUTH AT BEDTIME ORAL ACTIVE R[facility]AN [place] 2023 [place] [facility] [...] Site Reaction Lot Number CVX Code Drug Resource Forester Status Comments Source COVID-19 (YieldBuild), MRNA, LNP-S, PF, NAVYA-SUCROSE, 30 MCG/0.3 ML (AGES 12+ YEARS) 2023 309 complet ed [facility] INFLUENZA, ADJUVANTED, TRIVALENT, PF 2023 168 complet ed [facility] COVID-19 (YieldBuild), MRNA, LNP-S, PF, NAVYA-SUCROSE, 30 MCG/0.3 ML (AGES 12+ YEARS) 2022 309 complet ed [facility] INFLUENZA, ADJUVANTED, QUADRIVALENT, PF 2022 205 complet ed [facility] RSV, BIVALENT, PROTEIN SUBUNIT RSVPREF, DILUENT RECONSTITUTED , 0.5 ML, PF 2022 305 complet ed [facility] INFLUENZA, HIGH-DOSE, QUADRIVALENT 1 2021 197 complet ed [facility] COVID-19 (MODERNA), MRNA, LNP-S, BIVALENT, PF, 50 MCG/0.5 ML OR 25MCG/0.25 ML DOSE 1 2021 229 complet ed [facility] COVID-19 (MODERNA), MRNA, LNP-S, PF, 100 MCG/0.5ML DOSE OR 50 MCG/0.25ML DOSE 2020 207 complet ed [facility] COVID-19 (PFIZER), MRNA, LNP-S, PF, 30 MCG/0.3 ML DOSE 3 2020 208 complet ed [facility] INFLUENZA, HIGH-DOSE, QUADRIVALENT, PF 2020 197 complet ed [facility] INFLUENZA, UNSPECIFIED FORMULATION 2020 88 complet ed [facility] TDAP 2020 115 complet ed [employer], [id number] , exp-2022 and given VIS dated 12/17/2020 [place] ([facility]) ZOSTER RECOMBINANT 2 2020 187 complet ed [place] [facility] ([facility]) ZOSTER RECOMBINANT 1 2020 187 complet ed [place] [facility] ([facility]) COVID-19 (PFIZER), MRNA, LNP-S, PF, 30 MCG/0.3 ML DOSE 2 2020 208 complet ed [facility] COVID-19 (PFIZER), MRNA, LNP-S, PF, 30 MCG/0.3 ML DOSE 1 2020 208 complet ed [facility] INFLUENZA, ADJUVANTED, TRIVALENT, PF 2019 168 complet ed [facility] INFLUENZA, UNSPECIFIED FORMULATION 2019 88 complet ed [facility] INFLUENZA, HIGH-DOSE, TRIVALENT, PF 2018 135 complet ed [facility] INFLUENZA, ADJUVANTED, TRIVALENT, PF 2017 168 complet ed [facility] INFLUENZA, UNSPECIFIED FORMULATION 2016 88 complet ed [facility] INFLUENZA, HIGH-DOSE, TRIVALENT, PF 2014 135 complet ed [facility] PNEUMOCOCCAL CONJUGATE PCV 13 2014 133 complet ed Per [facility] INFLUENZA, SPLIT VIRUS, TRIVALENT, PRESERVATIVE 2012 141 complet ed [facility] INFLUENZA, SPLIT VIRUS, TRIVALENT, PRESERVATIVE 2011 141 complet ed [facility] INFLUENZA, SPLIT VIRUS, TRIVALENT, PF 2010 140 complet ed [facility] PNEUMOCOCCAL POLYSACCHARID E PPV23 2010 33 complet [facility] INFLUENZA, SPLIT VIRUS, TRIVALENT, PRESERVATIVE 2009 141 complet ed [facility] INFLUENZA, SPLIT VIRUS, TRIVALENT, PF 2008 140 complet ed [facility] INFLUENZA, SPLIT VIRUS, TRIVALENT, PRESERVATIVE 2007 141 complet ed [facility] INFLUENZA, SPLIT VIRUS, TRIVALENT, PRESERVATIVE 2006 141 complet ed [facility] INFLUENZA, SPLIT VIRUS, TRIVALENT, PRESERVATIVE 2005 141 complet [facility] PNEUMOCOCCAL POLYSACCHARID E PPV23 2005 33 complet ed [facility] TD (ADULT), 5 LF TETANUS TOXOID, PRESERVATIVE FREE, ADSORBED 2005 113 complet [facility] INFLUENZA, SPLIT VIRUS, TRIVALENT, PRESERVATIVE 2004 141 complet [facility] INFLUENZA, SPLIT VIRUS, TRIVALENT, PRESERVATIVE 2003 141 complet [facility] INFLUENZA, SPLIT VIRUS, TRIVALENT, PRESERVATIVE 2002 141 complet [facility] Results Combined list of recent chemistry, hematology [...] Jan 23, 2023 02:00 PM Reporting Lab: [facility] [address] Performing Lab: [facility] [address] [place] ([facility]) BASIC METABOLIC PANEL+MG UREA NITROGEN [MASS/VOLUM E] IN SERUM OR PLASMA 35 mg/dL 8 - 26 01/23 H Specimen Type: PLASMA No comment entered. Ordering Provider: AILIN CHESTER Report Released Date/Time: Jan 23, 2023 02:00 PM Reporting Lab: [facility] [address] Performing Lab: [facility] [address] [place] ([facility]) BASIC METABOLIC PANEL+MG GLUCOSE [MASS/VOLUM E] IN SERUM OR PLASMA 239 mg/dL 70 - 100 01/23 H Specimen Type: PLASMA No comment entered. Ordering Provider: AILIN [place] Report Released Date/Time: Jan 23, 2023 02:00 PM Reporting Lab: [facility] [address] Performing Lab: [facility] [address] [place] ([facility]) BASIC METABOLIC PANEL+MG SODIUM [MOLES/VOLU ME] IN SERUM OR PLASMA 140 mmol/L 136 - 145 01/23 Specimen Type: PLASMA No comment entered. Ordering Provider: AILIN CHESTER Report Released Date/Time: Jan 23, 2023 02:00 PM Reporting Lab: [facility] [address] Performing Lab: [facility] [address] [place] ([facility]) BASIC METABOLIC PANEL+MG POTASSIUM [MOLES/VOLU ME] IN SERUM OR PLASMA 5.1 mmol/L 3.5 - 5.1 01/23 Specimen Type: PLASMA No comment entered. Ordering Provider: AILIN CHESTER Report Released Date/Time: Jan 23, 2023 02:00 PM Reporting Lab: [facility] [address] Performing Lab: [facility] [address] [place] ([facility]) BASIC METABOLIC PANEL+MG CHLORIDE [MOLES/VOLU ME] IN SERUM OR PLASMA 109 mmol/L 98 - 107 01/23 H Specimen Type: PLASMA No comment entered. Ordering Provider: AILIN [place] Report Released Date/Time: Jan 23, 2023 02:00 PM Reporting Lab: [place] [phone] Performing Lab: [place] [phone] [place] ([facility]) BASIC METABOLIC PANEL+MG CARBON DIOXIDE, TOTAL [MOLES/VOLU ME] IN SERUM OR PLASMA 21 mmol/L 22 - 29 01/23 L Specimen Type: PLASMA No comment entered. Ordering Provider: AILIN [place] Report Released Date/Time: Jan 23, 2023 02:00 PM Reporting Lab: [place] [phone] Performing Lab: [address] [place] ([facility]) BASIC METABOLIC PANEL+MG CALCIUM [MASS/VOLUM E] IN SERUM OR PLASMA 9.4 mg/dL 8.4 - 10.2 01/23 Specimen Type: PLASMA No comment entered. Ordering Provider: AILIN [place] Report Released Date/Time: Jan 23, 2023 02:00 PM Reporting Lab: [facility] [address] Performing Lab: [place] [address] [place] ([facility]) BASIC METABOLIC PANEL+MG MAGNESIUM [MASS/VOLUM E] IN SERUM OR PLASMA 1.7 mg/dL 1.6 - 2.6 01/23 Specimen Type: PLASMA No comment entered. Ordering Provider: AILIN [place] Report Released Date/Time: Jan 23, 2023 02:00 PM Reporting Lab: [facility] [address] Performing Lab: [facility] [address] [place] ([facility]) BASIC METABOLIC PANEL+MG ANION GAP IN SERUM OR PLASMA 10 mmol/L 5 - 15 01/23 Specimen Type: PLASMA No comment entered. Ordering Provider: AILIN [place] Report Released Date/Time: Jan 23, 2023 02:00 PM Reporting Lab: [facility] [address] Performing Lab: [address] [place] ([facility]) BASIC METABOLIC PANEL+MG GLOMERULAR FILTRATION RATE/1.73 SQ M.PREDICTED [VOLUME RATE/AREA] IN SERUM, PLASMA OR BLOOD BY CREATININE- BASED FORMULA (CKD-EPI 2020) 61 60 01/23 Specimen Type: PLASMA No comment entered. Ordering Provider: AILIN [place] Report Released Date/Time: Jan 23, 2023 02:00 PM Reporting Lab: [address] Performing Lab: [address] ([facility]) BNP NATRIURETIC PEPTIDE B [MASS/VOLUM E] IN SERUM OR PLASMA 1549 pg/mL <99 - 99 01/23 H Specimen Type: PLASMA No comment entered. Ordering Provider: AILIN [place] Report Released Date/Time: Jan 23, 2023 02:00 PM Reporting Lab: [address] Performing Lab: [address] [place] ([facility]) MICROALBU MIN/CREAT ININE RATIO URINE CREATININE [MASS/VOLUM E] IN URINE 132.8 mg/dL 58.0 - 161.0 11/23 Specimen Type: URINE No comment entered. Ordering Provider: AILIN CHE[place] Report Released Date/Time: Nov 23, 2022 11:58 AM Reporting Lab: [place] [phone] Performing Lab: [address] ([facility]) MICROALBU MIN/CREAT ININE RATIO URINE MICROALBUMI N/CREATININ E [MASS RATIO] IN URINE 28.0 mg/g{c reat} 11/23 Specimen Type: URINE No comment entered. Ordering Provider: AILIN CHESTER Report Released Date/Time: Nov 23, 2022 11:58 AM Reporting Lab: [place] [phone] Performing Lab: [facility] [id number] [place] [address] ([facility]) MICROALBU MIN/CREAT ININE RATIO URINE MICROALBUMI N [MASS/VOLUM E] IN URINE 37.2 mg/L 11/23 H Specimen Type: URINE No comment entered. Ordering Provider: AILIN [place] Report Released Date/Time: Nov 23, 2022 11:58 AM Reporting Lab: [address] Performing Lab: [address] ([facility]) LIPID PANEL,NON -FASTING CHOLESTEROL [MASS/VOLUM E] IN SERUM OR PLASMA 130 mg/dL 11/23 Specimen Type: PLASMA No comment entered. Ordering Provider: AILIN [place] Report Released Date/Time: Nov 23, 2022 11:58 AM Reporting Lab: [place] [phone] Performing Lab: [address] ([facility]) LIPID PANEL,NON -FASTING CHOLESTEROL IN HDL [MASS/VOLUM E] IN SERUM OR PLASMA 39 mg/dL 11/23 L Specimen Type: PLASMA No comment entered. Ordering Provider: AILIN [place] Report Released Date/Time: Nov 23, 2022 11:58 AM Reporting Lab: [place] [phone] Performing Lab: [address] ([facility]) LIPID PANEL,NON -FASTING CHOLESTEROL IN LDL [MASS/VOLUM E] IN SERUM OR PLASMA BY CALCULATION 73 mg/dL 11/23 Specimen Type: PLASMA No comment entered. Ordering Provider: AILIN [place] Report Released Date/Time: Nov 23, 2022 11:58 AM Reporting Lab: [place] [phone] Performing Lab: [address] ([facility]) LIPID PANEL,NON -FASTING CHOLESTEROL IN VLDL [MASS/VOLUM E] IN SERUM OR PLASMA BY CALCULATION 18 mg/dL 11/23 Specimen Type: PLASMA No comment entered. Ordering Provider: AILIN [place] Report Released Date/Time: Nov 23, 2022 11:58 AM Reporting Lab: [place] [phone] Performing Lab: [address] ([facility]) LIPID PANEL,NON -FASTING CHOLESTEROL NON HDL [MASS/VOLUM E] IN SERUM OR PLASMA 91 mg/dL 11/23 Specimen Type: PLASMA No comment entered. Ordering Provider: AILIN [place] Report Released Date/Time: Nov 23, 2022 11:58 AM Reporting Lab: [address] Performing Lab: [address] ([facility]) LIPID PANEL,NON -FASTING TRIGLYCERID E [MASS/VOLUM E] IN SERUM OR PLASMA 92 mg/dL 11/23 Specimen Type: PLASMA No comment entered. Ordering Provider: AILIN [place] Report Released Date/Time: Nov 23, 2022 11:58 AM Reporting Lab: [place] [phone] Performing Lab: [address] ([facility]) TSH W/REFLEX TO FREE T4 THYROTROPIN [UNITS/VOLU ME] IN SERUM OR PLASMA 4.59 u[IU]/ mL 0.35 - 4.94 11/23 Specimen Type: PLASMA No comment entered. Ordering Provider: AILIN [place] Report Released Date/Time: Nov 23, 2022 11:58 AM Reporting Lab: [address] Performing Lab: [address] ([facility]) CBC LEUKOCYTES [#/VOLUME] IN BLOOD BY AUTOMATED COUNT 10.80 10*3/u L 4.0 - 11.0 11/23 Specimen Type: BLOOD No comment entered. Ordering Provider: AILIN [place] Report Released Date/Time: Nov 23, 2022 11:58 AM Reporting Lab: [address] Performing Lab: [address] ([facility]) CBC ERYTHROCYTE S [#/VOLUME] IN BLOOD BY AUTOMATED COUNT 3.87 10*6/u L 4.6 - 6.2 11/23 L Specimen Type: BLOOD No comment entered. Ordering Provider: AILIN [place] Report Released Date/Time: Nov 23, 2022 11:58 AM Reporting Lab: [place] [phone] Performing Lab: [address] ([facility]) CBC HEMOGLOBIN [MASS/VOLUM E] IN BLOOD 12.1 g/dL 13.5 - 17.9 11/23 L Specimen Type: BLOOD No comment entered. Ordering Provider: AILIN [place]STER Report Released Date/Time: Nov 23, 2022 11:58 AM Reporting Lab: [place] [phone] Performing Lab: [place] [phone] [place] ([facility]) CBC HEMATOCRIT [VOLUME FRACTION] OF BLOOD BY AUTOMATED COUNT 37.5 41 - 54 11/23 L Specimen Type: BLOOD No comment entered. Ordering Provider: AILIN [place] Report Released Date/Time: Nov 23, 2022 11:58 AM Reporting Lab: [place] [phone] Performing Lab: [address] ([facility]) CBC MCV [ENTITIC VOLUME] BY AUTOMATED COUNT 96.9 fL 80 - 100 11/23 Specimen Type: BLOOD No comment entered. Ordering Provider: AILIN [place] Report Released Date/Time: Nov 23, 2022 11:58 AM Reporting Lab: [facility] [address] Performing Lab: [facility] [address] [place] ([facility]) CBC MCH [ENTITIC MASS] BY AUTOMATED COUNT 31.3 pg 27 - 33 11/23 Specimen Type: BLOOD No comment entered. Ordering Provider: AILIN [place] Report Released Date/Time: Nov 23, 2022 11:58 AM Reporting Lab: [facility] [address] Performing Lab: [place] [phone] [place] ([facility]) CBC MCHC [MASS/VOLUM E] BY AUTOMATED COUNT 32.3 g/dL 32.0 - 37.5 11/23 Specimen Type: BLOOD No comment entered. Ordering Provider: AILIN CHESTER Report Released Date/Time: Nov 23, 2022 11:58 AM Reporting Lab: [place] [phone] Performing Lab: [address] [place] [address] ([facility]) CBC PLATELETS [#/VOLUME] IN BLOOD BY AUTOMATED COUNT 293 10*3/u L 150 - 400 11/23 Specimen Type: BLOOD No comment entered. Ordering Provider: AILIN CHESTER Report Released Date/Time: Nov 23, 2022 11:58 AM Reporting Lab: [address] Performing Lab: [address] [place] [address] ([facility]) CBC PLATELET MEAN VOLUME [ENTITIC VOLUME] IN BLOOD BY AUTOMATED COUNT 10.3 fL 7.4 - 10.4 11/23 Specimen Type: BLOOD No comment entered. Ordering Provider: AILIN [place]STER Report Released Date/Time: Nov 23, 2022 11:58 AM Reporting Lab: [facility] [address] Performing Lab: [facility] [address] [place] ([facility]) CBC ERYTHROCYTE DISTRIBUTIO N WIDTH [RATIO] BY AUTOMATED COUNT 13.2 11.5 - 14.5 11/23 Specimen Type: BLOOD No comment entered. Ordering Provider: AILIN CHESTER Report Released Date/Time: Nov 23, 2022 11:58 AM Reporting Lab: [facility] [address] Performing Lab: [facility] [phone] [place] [address] ([facility]) HEMOGLOBI N A1C HEMOGLOBIN A1C/HEMOGLO BIN.TOTAL [...] Nov 23, 2022 11:58 AM Reporting Lab: [facility] [address] Performing Lab: [facility] [phone] [place] [address] ([facility]) COMPREHEN SIVE METABOLIC PANEL+MG CREATININE [MASS/VOLUM E] IN SERUM OR PLASMA 1.2 mg/dL 0.7 - 1.2 11/23 Specimen Type: PLASMA No comment entered. Ordering Provider: AILIN [place] Report Released Date/Time: Nov 23, 2022 11:58 AM Reporting Lab: [facility] [address] Performing Lab: [facility] [address] [place] ([facility]) COMPREHEN SIVE METABOLIC PANEL+MG UREA NITROGEN [MASS/VOLUM E] IN SERUM OR PLASMA 34 mg/dL 8 - 26 11/23 H Specimen Type: PLASMA No comment entered. Ordering Provider: AILIN [place] Report Released Date/Time: Nov 23, 2022 11:58 AM Reporting Lab: [facility] [address] Performing Lab: [facility] [address] [place] ([facility]) COMPREHEN SIVE METABOLIC PANEL+MG GLUCOSE [MASS/VOLUM E] IN SERUM OR PLASMA 54 mg/dL 70 - 100 11/23 L Specimen Type: PLASMA No comment entered. Ordering Provider: AILIN [place] Report Released Date/Time: Nov 23, 2022 11:58 AM Reporting Lab: [facility] [address] Performing Lab: [facility] [address] [place] ([facility]) COMPREHEN SIVE METABOLIC PANEL+MG SODIUM [MOLES/VOLU ME] IN SERUM OR PLASMA 143 mmol/L 136 - 145 11/23 Specimen Type: PLASMA No comment entered. Ordering Provider: AILIN [place] Report Released Date/Time: Nov 23, 2022 11:58 AM Reporting Lab: [facility] [address] Performing Lab: [facility] [address] [place] ([facility]) COMPREHEN SIVE METABOLIC PANEL+MG POTASSIUM [MOLES/VOLU ME] IN SERUM OR PLASMA 4.4 mmol/L 3.5 - 5.1 11/23 Specimen Type: PLASMA No comment entered. Ordering Provider: AILIN [place] Report Released Date/Time: Nov 23, 2022 11:58 AM Reporting Lab: [facility] [address] Performing Lab: [facility] [address] [place] ([facility]) COMPREHEN SIVE METABOLIC PANEL+MG CHLORIDE [MOLES/VOLU ME] IN SERUM OR PLASMA 107 mmol/L 98 - 107 11/23 Specimen Type: PLASMA No comment entered. Ordering Provider: AILIN CHESTER Report Released Date/Time: Nov 23, 2022 11:58 AM Reporting Lab: [facility] [address] Performing Lab: [facility] [address] [place] ([facility]) COMPREHEN SIVE METABOLIC PANEL+MG CARBON DIOXIDE, TOTAL [MOLES/VOLU ME] IN SERUM OR PLASMA 23 mmol/L 22 - 29 11/23 Specimen Type: PLASMA No comment entered. Ordering Provider: AILIN CHE[place] Report Released Date/Time: Nov 23, 2022 11:58 AM Reporting Lab: [address] Performing Lab: [address] [place] [address] ([facility]) COMPREHEN SIVE METABOLIC PANEL+MG CALCIUM [MASS/VOLUM E] IN SERUM OR PLASMA 9.7 mg/dL 8.4 - 10.2 11/23 Specimen Type: PLASMA No comment entered. Ordering Provider: AILIN [place] Report Released Date/Time: Nov 23, 2022 11:58 AM Reporting Lab: [facility] [address] Performing Lab: [facility] [phone] [place] [address] ([facility]) COMPREHEN SIVE METABOLIC PANEL+MG PROTEIN [MASS/VOLUM E] IN SERUM OR PLASMA 7.2 g/dL 6.0 - 8.3 11/23 Specimen Type: PLASMA No comment entered. Ordering Provider: AILIN CHESTER Report Released Date/Time: Nov 23, 2022 11:58 AM Reporting Lab: [facility] [address] Performing Lab: [facility] [address] [place] ([facility]) COMPREHEN SIVE METABOLIC PANEL+MG ALBUMIN [MASS/VOLUM E] IN SERUM OR PLASMA 4.1 g/dL 3.5 - 5.2 11/23 Specimen Type: PLASMA No comment entered. Ordering Provider: AILIN [place] Report Released Date/Time: Nov 23, 2022 11:58 AM Reporting Lab: [facility] [address] Performing Lab: [facility] [address] [place] ([facility]) COMPREHEN SIVE METABOLIC PANEL+MG BILIRUBIN.T OTAL [MASS/VOLUM E] IN SERUM OR PLASMA 0.5 mg/dL 0.2 - 1.2 11/23 Specimen Type: PLASMA No comment entered. Ordering Provider: AILIN [place] Report Released Date/Time: Nov 23, 2022 11:58 AM Reporting Lab: [facility] [address] Performing Lab: [facility] [address] [place] ([facility]) COMPREHEN SIVE METABOLIC PANEL+MG MAGNESIUM [MASS/VOLUM E] IN SERUM OR PLASMA 1.4 mg/dL 1.6 - 2.6 11/23 L Specimen Type: PLASMA No comment entered. Ordering Provider: AILIN [place] Report Released Date/Time: Nov 23, 2022 11:58 AM Reporting Lab: [facility] [address] Performing Lab: [facility] [address] [place] ([facility]) COMPREHEN SIVE METABOLIC PANEL+MG ANION GAP IN SERUM OR PLASMA 13 mmol/L 5 - 15 11/23 Specimen Type: PLASMA No comment entered. Ordering Provider: AILIN [place] Report Released Date/Time: Nov 23, 2022 11:58 AM Reporting Lab: [facility] [address] Performing Lab: [facility] [address] [place] ([facility]) COMPREHEN SIVE METABOLIC PANEL+MG ALKALINE PHOSPHATASE [ENZYMATIC ACTIVITY/VO LUME] IN SERUM OR PLASMA 87 U/L 40 - 150 11/23 Specimen Type: PLASMA No comment entered. Ordering Provider: AILIN [place] Report Released Date/Time: Nov 23, 2022 11:58 AM Reporting Lab: [facility] [address] Performing Lab: [facility] [phone] [place] [address] ([facility]) COMPREHEN SIVE METABOLIC PANEL+MG ALANINE AMINOTRANSF ERASE [ENZYMATIC ACTIVITY/VO LUME] IN SERUM OR PLASMA 28 U/L 11/23 Specimen Type: PLASMA No comment entered. Ordering Provider: AILIN CHESTER Report Released Date/Time: Nov 23, 2022 11:58 AM Reporting Lab: [facility] [id number] Performing Lab: [facility] [id number] [place] [facility]) COMPREHEN SIVE METABOLIC PANEL+MG ASPARTATE AMINOTRANSF ERASE [ENZYMATIC ACTIVITY/VO LUME] IN SERUM OR PLASMA 33 U/L 11/23 Specimen Type: PLASMA No comment entered. Ordering Provider: AILIN CHESTER Report Released Date/Time: Nov 23, 2022 11:58 AM Reporting Lab: [facility] [id number] Performing Lab: [facility] [id number] [place] [facility] COMPREHEN SIVE METABOLIC PANEL+MG GLOMERULAR FILTRATION RATE/1.73 SQ M.PREDICTED [VOLUME RATE/AREA] IN SERUM, PLASMA OR BLOOD BY CREATININE- BASED FORMULA (CKD-EPI 2020) 61 11/23 Specimen Type: PLASMA No comment entered. Ordering Provider: AILIN CHESTER Report Released Date/Time: Nov 23, 2022 11:58 AM Reporting Lab: [facility] [phone] Performing Lab: [facility] [id number] [place] [facility] Vital Signs Combined list of inpatient and [...] months. 2) Encounters from the [facility] of [facility] facilities going back up to 280 months. Location Location Details Encounter Type Encounter Number Reason For Visit Attending Provider ADM Date DC Date Status Disposition Source [facility] Outpatient Encounter [id number] 0[id number] 11/11 [facility] Outpatient Encounter [id number] ZARI POWER 11/16 [facility] Outpatient Encounter [id number] 11/21 [facility] ([facility]) OFFICE O/P EST MOD 30-39 MIN [id number] Diagnos is: ICD-10- CM Z00.00 Encntr for general adult medical exam w/o abnorma l finding s
CANDELARIO CHESTER 11/23 [facility] [place] ([facility]) GAIT TRAINING THERAPY [id number] Diagnos is: ICD-10- CM R26.89 Other abnorma lities of gait and mobilit y
OMAYRA JAMESON V 11/23 [facility] [place] [facility] Outpatient Encounter [id number] SA JAMARI JAMESON R 12/11 [place] [facility] [place] [facility] Outpatient Encounter [id number] 12/25 [place] [facility] [place] [facility] Outpatient Encounter [id number] SA JAMARI JAMESON R 12/28 [place] [facility] [place] [facility] Outpatient Encounter [id number] 01/05 [place] [facility] [place] [facility] Outpatient Encounter [id number] 01/11 [place] [facility] [place] [facility] Outpatient Encounter [id number] 01/16 [place] [facility] OFFICE O/P EST HI 40-54 MIN [id number] Diagnos is: ICD-10- CM I50.9 Heart failure , unspeci fied
CANDELARIO CHESTER 01/23 [facility] [place] [facility] Outpatient Encounter [id number] Marcus POTTS I 01/24 [place] [facility] [place] [facility] Outpatient Encounter [id number] Danica TORRE 02/05 [place] [facility] [place] [facility] Outpatient Encounter [id number] 02/09 [place] [facility] [place] [facility] Outpatient Encounter [id number] Danica TORRE 02/09 [place] [facility] [place] [facility] Outpatient Encounter [id number] 02/14 [place] [facility] [place] [facility] Outpatient Encounter [id number] 02/15 [place] [facility] [place] [facility] Outpatient Encounter [id number] 02/19 [place] [facility] [place] [facility] Outpatient Encounter [id number] 02/20 [place] [facility] [place] [facility] Outpatient Encounter [id number] 02/20 [place] [facility] [place] [facility] Outpatient Encounter [id number] 02/20 [place] [facility] [place] [facility] Outpatient Encounter [id number] 02/20 [place] [facility] [place] [facility] Outpatient Encounter [id number] 02/21 [place] [facility] [place] [facility] QNHP OL DIG ASSMT&MGMT 5-10 [id number] Diagnos is: ICD-10- CM E11.9 Type 2 diabete s mellitu s without complic ations< br/> HARDER,SIVA LY 02/22 [place] [facility] ([facility]) PRO PHONE CALL 11-20 MIN [id number] Diagnos is: ICD-10- CM I50.9 Heart failure , unspeci fied
JERMAINE ALCANTAR ANDON M 02/23 [facility] [place] [facility] Outpatient Encounter [id number] 02/26 [place] [facility] [place] [facility] Outpatient Encounter [id number] 03/01 [place] [facility] [place] [facility] Outpatient Encounter [id number] 03/05 [place] [facility] [place] [facility] Outpatient Encounter [id number] SA RA Sandra JAMESON 03/09 [place] [facility] [place] [facility] Outpatient Encounter [id number] 03/14 [facility] [place] [facility] Outpatient Encounter [id number] SA JAMARI JAMESON R 04/12 [facility] [place] [facility] Outpatient Encounter [id number] SA JAMARI JAMESON R 04/16 [facility] [place] [facility] Outpatient Encounter [id number] SA TRINO RA R 05/01 [facility] [place] [facility] Outpatient Encounter [id number] 07/11 [facility] [place] [facility] Outpatient Encounter [id number] [facility] [place] [facility] Outpatient Encounter [id number] 07/12 [facility] PRO PHONE CALL 5-10 MIN [id number] Diagnos is: ICD-10- CM 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
VIV BARFIELD M 07/19 [facility] HEARING AID REPAIR/MOD IFYING [id number] Diagnos is: ICD-10- CM 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
CARY CORCORAN 08/09 [facility] HEARING AID FITTING/CH ECKING [id number] Diagnos is: ICD-10- CM 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
Sy MAKI 09/17 [facility] Outpatient Encounter [id number] 10/17 [facility] OFFICE O/P EST HI 40 MIN [id number] [id number] Diagnos is: ICD-10- CM E11.9 Type 2 diabete s mellitu s without complic ations< br/> CANDELARIO CHESTER 11/07 [facility] [place] [facility]) PT EVAL MOD COMPLEX 30 MIN [id number] [id number] Diagnos is: ICD-10- CM Z74.09 Other reduced mobilit y
OMAYRA JAMESON NTER V 12/17 [facility] Outpatient Encounter [id number] 01/03 [facility] Outpatient Encounter [id number] 01/09 [facility] WHEELCHAIR MNGMENT TRAINING [id number] Diagnos is: ICD-10- CM R53.1 Weaknes s
ANDERS EATON R 01/29 [facility] Outpatient Encounter [id number] 01/30 [facility] HEARING AID CHECK BOTH EARS [id number] [id number] Diagnos is: ICD-10- CM Z46.1 Encount er for fitting and adjustm ent of hearing aid<br/ > SUZY BLACK AEL F 02/01 [facility] Outpatient Encounter [id number] SA RA Sandra JAMESON 02/11 [facility] Outpatient Encounter [id number] 02/25 [facility] Outpatient Encounter [id number] JYOTSNA SMART 03/10 [facility] ([facility]) OFFICE O/P EST MOD 30 MIN [id number] [id number] Diagnos is: ICD-10- CM L89.623 Pressur e ulcer of left heel, stage 3
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
CIARA BALDERRAMA ID J 03/20 [facility] [place] [facility] HEARING AID REPAIR/MOD IFYING [id number] Diagnos is: ICD-10- CM 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
SHARONDA MCMULLEN RTHA R 03/20 [facility] [place] [facility] Outpatient Encounter [id number] KAYLEE HORTON IE G 03/20 [facility] Social History Combined list of available smoking, tobacco, and other social history from Department of Defense and Veterans Affairs facilities. Social History Type Response Date Comment Sourc e Tobacco smoking status NHIS VA-TOBACCO QUIT 15 YRS OR MORE 11/08/2023 [facility] ([facility]) History of tobacco use [place]-TOBACCO FORMER USER 11/08/2023 [facility] ([facility]) History of tobacco use RI-TOBACCO QUIT 1 5 YRS OR MORE 11/23/2022 [facility] ([facility]) History of tobacco use VA-TOBACCO FORMER USER 11/29/2021 [facility] ([facility]) History of tobacco use RI-TOBACCO FORMER USER 10/21/2020 [facility] ([facility]) Plan of Care List of future care activities from Department of Veterans Affairs facilities. Additional future care activities may be listed in the Assessment and Plan section. Date/Time Care Activity Care Activity Detail Facili ty 04/07/2024 AMBULATORY - REHAB MEDICINE AMBULATORY - REHAB MEDICINE [facility] 03/11/2024 Consult Order [facility] Cons Therapy Tech's Choice [facility] ([facility]) 03/22/2024 Consult Order MAJOR MED ECONSU LT Cons Therapy Tech's Choice [facility]
--- OUTSIDE RECORDS SUMMARY | 2024-03-25 12:23 | XMS_ITS | Encounter Summary ---
Author Name [facility] [place] [facility] [place] Address [address] [place] [address] Care Team Providers Care Farmworker Machine Name Role Phone RABIA MOLINA Primary Care [...] Cherry's Name Patient's Relationship to Policy Cherry [facility] (WNR) MEDICARE ADVANTAGE [facility] (WNR) May 14, 2020 [id number] [phone] PITER BOWERS ERD PATIENT Selected Encounter This section includes the information on record at [place] for the Encounter. Date/Time Encounter Type Encounter Description Reason Provider Source Mar 20, 2024 09:00 AM COMMUNITY/WORK REINTEGRATION PM&RS CORPORATE LAWYER TRAINING ICD-10-CM Z89.511 Acquired absence of right leg below knee SHORTY BALDERRAMA [facility] Encounter Template Text not used by [place] Assessments - Encounter Diagnoses This section includes the primary and secondary diagnoses documented for the Encounter. Date/Time Primary/Secondary Diagnosis Diagnosis Name Provider Source Mar 20, 2024 03:26 PM PRIMARY Acquired absence of right leg below knee SHORTY BALDERRAMA [facility] Mar 20, 2024 03:26 PM SECONDARY Type 2 diabetes mellitus with diabetic polyneuropathy SHORTY BALDERRAMA [facility] Plan of Treatment: Future Appointments (+ 6 months) and Future Tests (+/- 45 days) The Plan of Treatment section includes future care activities for the patient from [facility] [place] [facility] This section includes future appointments and future orders which are active, pending or scheduled. Future Appointments This section includes appointments that were scheduled to occur 6 months from the date of the Encounter, up to a maximum of 20 appointments. The data comes from all [facility]. Appointment Date/Time Appointment Type Appointme nt Facility Name Apr 07, 2024 10:30 AM AMBULATORY - REHAB MEDICIN [facility] Active, Pending, and Scheduled Orders This section includes a listing of several types of active, pending, and scheduled orders, including clinic medications orders, diagnostic test orders, procedure orders and consult orders; where the start date of the order is 45 days before the date of the Encounter or 45 days after the date of theEncounter. The data comes from all [facility]. Test Date/Time Test Type Test Details Facility Name Mar 11, 2024 12:16 PM Consult Order COMMUNITY CARE-WOUND CARE [place] [facility] Senior Cost Estim[facility] [place] ([facility]) Mar 22, 2024 03:44 PM Consult Order MAJOR MED ECONSULT Cons Senior Cost Estimator[facility] Encounter Notes: All associated encounter notes This section contains the clinical notes associated to the Encounter. Date/Time Encounter Note(s) Provider Source Mar 20, 2024 04:30 PM OCCUPATIONAL THERA PY CONSULT: LOCAL TITLE: CORPORATE LAWYER TRAINING CONSULT STANDARD TITLE: OCCUPATIONAL THERAPY CONSULT DATE OF NOTE: MAR 20, 2024@16:30 ENTRY DATE: MAR 22, 2024@15:19:57 AUTHOR: HSORTY BALDERRAMA EXP COSIGNER: URGENCY: STATUS: COMPLETED OT CORPORATE LAWYER REHAB CONSULT NOTE VEHICLE ACCESS EVALUATION NOTE REFERRING PROVIDER: Rabia Molina, PCP/PACT DIAGNOSIS/REASON FOR REFERRAL: Acquired absence of right leg below knee; Non- Low Emission Automobile Designer Safe Passenger Evaluation: Assess for Vehicle Modification and Equipment. SIGNIFICANT MEDICAL HX: Right BKA; peripheral neuropathy due to type II diabetes mellitus; CAD; CHF; hearing loss. PRECAUTIONS: Falls risk; pressure sore on left heel foot. PAIN: Vet reported c/o mild phantom limb pain (intensity 2/10) in his residual right LE at time of today's session. Vet was seen 03/20/24 for total of 57 minutes including 45 minutes (1 unit) OT evaluation-moderate complexity and 12 minutes (1 unit) Instrumental Activities of Daily Living (IADLs)/community reintegration skills. ASSESSMENT: Mr. Bowers is a 83 year-old male from [facility]) referred to OT Low Emission Automobile Designer Rehab clinic to complete vehicle access evaluation. Dk currently resides with his in their own home. Dk's , Moe, attended the entirety of today's session with dk. Dk and his verbalized their agreement with participating in today's vehicle access session. Mr. Bowers and his , Moe, confirmed that dk no longer independently operates a motor vehicle and only accesses a vehicle via the passenger position at this time. Dk's reported that they currently have a 2022 [employer] four-door crossover, and that dk has been experiencing increased difficulty accessing the vehicle and requiring increased caregiver assistance from his for ingress/egress of front passenger side position of the vehicle. Dk's reported that she is not sure how much longer she is able to provide her present level of assistance with his vehicle transfers. Dk's , Moe, reported that they are planning to purchase a minivan vehicle. Mr. Bowers and his , Moe, were educated that dk is currently listed as having [place] for loss of use/loss of an extremity or an eye; therefore, dk and his were educated that kd would not be eligible for the [place] Auto [place] and AAE [place] ([place] Form [id number]). Dk and his were educated that, if needed, dk could pursue a funding request for AAE and/or vehicle modification needed for ingress/egress of the passenger position of vehicle via the local [facility] committee. Author extensively reviewed the process to pursue [facility] funding assistance for AAE and/or vehicle modification to allow dk to access a vehicle [facility]ress/egress of front passenger-side position. Mr. Bowers's functional mobility is significantly limited secondary to his Right BKA, peripheral neuropathy, and current pressure sore on his left heel. During today's session, dk required Minimum to Moderate physical assistance from his during today's session to complete ingress/egress of the front passenger- side position of their 2022 [place] STS. Dk's /caregiver assisted annabellet while holding dk's waistband and the front door during dk's pivot transfers. Dk benefitted from moderate direct verbal cues and tactile cues for body positioning and hand placement during the vehicle transfer. When dk was seated onto factory-installed front passenger-side seat, he required physical assistance from his /caregiver to push him onto the front passenger seat and into the vehicle. Mr. Bowers's also had to physical assist with swing dk's LLE into and out of the vehicle. Dk is dependent on /caregiver for stowage and retrieval of his MWC and PWC into and out of the rear cargo area of their vehicle. Mr. Bowers his were educated on possible automotive adaptive equipment (AAE) recommendations for vehicle access of passenger-side position of a minivan vehicle via dk's PWC. Dk and his , Moe, reported that they are most interested in pursuing purchase of a new vehicle. Mr. Bowers and his , Moe, were educated that author could submit a funding request for vehicle modification to the [facility] committee for review. AUTOMOTIVE ADAPTIVE EQUIPMENT (AAE) AND/OR VEHICLE MODIFICATION RECOMMENDATIONS FOR INGRESS/EGRESS OF PASSENGER POSITION: Dk would likely benefit from the following AAE and vehicle modification for ingress/egress of the front passenger-side position of a minivan vehicle: 1. Full wheelchair-accessible minivan conversion package (i.e., lowered floors, lowered doors, keyless entry, power sliding doors) with standard 54-inch side- entry door opening height with power fold-out vs. power in-floor ramp. 2. Q'Straint QLK, EZ-Lock, or equivalent, wheelchair docking system for dk's Quantum Q6 Edge 3 PWC, with a&p technician positioned in front passenger-side position of vehicle. Dk's has recent h/o knee fracture and is not able to bend down onto her knees to floor of vehicle to utilize manual wheelchair tie-downs. 3. Seat belt a&p technician extension secured to floor via in-floor track system, compatible with factory-installed occupant restraint system, to be used when dk rides in his PWC in the front passenger-side position of the vehicle. PLAN: [facility] OT Low Emission Automobile Designer Rehab vehicle access evaluation initiated and education provided in regards to possible AAE and vehicle modification recommendations, as well as, process for funding assistance via a [facility] committee referral for AAE and vehicle modification needed for ingress/egress of front passenger-side position of minivan vehicle. Dk and his reported that they are most interested in pursuing purchase of a new minivan vehicle. Dk and his are interested in submitting a funding request to the [facility] committee for review of AAE and vehicle modification. Author to remain available to dk and his , Moe, to address further education concerns or questions, as needed, as they pursue purchase of new vehicle and vehicle modification. Please contact KASIA Reyes/Yousuf, GAB, at ph. #[phone] or work cell #[phone] with further questions or concerns regarding this session; thank you for this referral. SHORT-TERM GOALS TO BE MET: Within One Session on 03/20/2024: 1. Annabellet will participate in vehicle access evaluation to determine AAE and vehicle modification recommendations for vefaviola's ingress/egress of vehicle via his MWC and PWC.--MET 03/20/2024. 2. Vet and his /caregiver will verbalize their understanding of the AAE recommendations, and funding process for recommended AAE and/or vehicle modification.--MET 03/20/2024. EDUCATION ON TREATMENT PLAN: 1:1 teaching strategy with dk and annabellet's , Moe. -Author educated dk and his on [facility] OT Low Emission Automobile Designer Rehab program, AAE and vehicle modification recommendations for vehicle access including ingress/egress of passenger-side position of vehicle via vet's MWC and PWC. -Author educated dk and his regarding funding process for AAE and vehicle modification for ingress/egress needs via the [facility] committee. -Dk and his were provided with author's direct contact number and they were encouraged to contact author directly with any additional questions they may have about the [facility] OT Low Emission Automobile Designer Rehab program, AAE and vehicle modification recommendations, or funding options. -Author educated dk and his , Moe, on today's OT Low Emission Automobile Designer Rehab results, AAE and/or vehicle modification recommendations, and treatment plan. -Dk and his indicated their readiness to learn, verbalized their understanding, agreement, and satisfaction with the OT Low Emission Automobile Designer Rehab results, AAE and/or vehicle modification recommendations, and treatment plan. -Dk and his denied further questions at this time and thanked author for his assistance today. The results of this OT Low Emission Automobile Designer Rehab session were obtained during completion of an evaluation of 's vehicle access needs for ingress/egress of passenger position of a vehicle. The results should not be viewed as an indication of the individual's functional driving ability at the time of the session, nor as a comprehensive measure of driving potential or predictor of future driving performance. Final recommendations/determination s regarding this individual's ability to independently operate a motorized vehicle is made by his primary medical providers and the [place] Department of Public Safety. OBJECTIVE: CURRENT VEHICLES: Year: 2022 Make: [employer] Model: XTS Crossover with: 4 doors, Automatic Transmission, Power Brakes, Power Steering. -Existing vehicle modification and/or Automotive Adaptive Equipment (AAE): None VEHICLE TRANSFER AND MOBILITY: -Dk's functional mobility is currently significantly limited secondary to his Right BKA, peripheral neuropathy, and his current pressure sore on his left heel. Dk requires caregiver assistance for all functional transfers. Dk required Minimum to Moderate physical caregiver assistance from his to complete squat-pivot transfers from his [facility] during today's session into/out of their vehicle. Dk required lifting assistance and moderate direct verbal cues and tactile cues for positioning of his hands during the squat-pivot transfers. When dk was seated onto factory-installed front passenger-side seat, he required physical assistance from his /caregiver to push him onto the front passenger seat and into the vehicle. Dk's also had to physical assist with swing dk's LLE into and out of the vehicle. Dk is dependent on /caregiver for stowage and retrieval of his MWC and PWC into and out of the rear cargo area of their vehicle. -Dk is currently dependent on use of his MWC or PWC for all mobility, with his /caregiver pushing him in the MWC. AUTOMOTIVE ADAPTIVE EQUIPMENT (AAE) AND VEHICLE MODIFICATION RECOMMENDATIONS FOR INGRESS/EGRESS OF PASSENGER POSITION: Dk would likely benefit from the following AAE and vehicle modification for ingress/egress of the front passenger-side position of a minivan vehicle: 1. Full wheelchair-accessible minivan conversion package (i.e., lowered floors, lowered doors, keyless entry, power sliding doors) with standard 54-inch side- entry door opening height with power fold-out vs. power in-floor ramp. 2. Q'Straint QLK, EZ-Lock, or equivalent, wheelchair docking system for dk's Quantum Q6 Edge 3 PWC, with a&p technician positioned in front passenger-side position of vehicle. 3. Seat belt a&p technician extension secured to floor via in-floor track system, compatible with factory-installed occupant restraint system, to be used when dk rides in his PWC in the front passenger-side position of the vehicle. MOBILITY DEVICES: Manual Wheelchair (MWC): -Dk currently utilizes his MWC for all community mobility. Dk is dependent on his /caregiver to push him in the MWC. -Dk has a VA-issued Quantum Stretto PWC currently on order. Power Wheelchair (PWC): VA-issued PWC on order -Quantum Stretto PWC Estimated weight: 391.88 lbs. FUNDING: -[place] Auto [place] and AAE program ([place] Form [id number]): Dk and his were educated that dk is currently not listed as having [place] for loss of or loss of use of an extremity or an eye. Therefore, dk and his were educated that dk would not be eligible for the [place] Auto [place] and AAE [place] ([place] Form [id number]). -[facility] committee funding request: Dk and his were educated that dk could pursue a funding request for AAE and/or vehicle modification needed for ingress/egress of the passenger position of vehicle via the local [facility] committee. Author extensively reviewed process to pursue funding assistance for vehicle modification and/or AAE to allow dk to access a vehicle via his MWC or PWC for ingress/egress of front passenger-side position. Dk and his , Moe, were educated that the [facility] committee funding request is only for AAE and/or vehicle modification to allow for ingress/egress of the vehicle and it does not include any funding or nakul monies towards the purchase of a different vehicle. Dk and his were also educated that if their funding request is approved by the [facility] committee, then [facility] and [facility] will solicit local adapted mobility vendors for bids on the project and that the process is competitive and typically requires three bids to be reviewed. Once reviewed, the [facility] Departments will award the bid project to the selected adapted mobility vendor. Dk and his were educated that under the [facility] process, they are not free to choose the adapted mobility vendor on their own. ADAPTED MOBILITY VENDOR: -Unknown; To Be Determined. PAIN: Dk reported c/o mild phantom limb pain (intensity 2/10) in his residual right LE at time of today's session. OCCUPATIONAL THERAPY EVALUATION COMPLEXITY Identifying and reporting [...] relating to the presenting problem (low complexity) Expanded review of medical and/or therapy records and additional review of physical, cognitive, or psychosocial history related to current functional performance (moderate complexity) Review of medical and/or therapy records and extensive additional review of physical, cognitive, or psychosocial history related to current functional performance (high complexity) ASSESSMENT & PERFORMANCE DEFICITS (select all that apply): Inability to complete activities due to the lack of skills in one or more of the categories (physical, cognitive, or psychosocial skills). Physical: balance, mobility, strength, endurance, fine or gross motor coordination, sensation dexterity. Cognitive: attend, perceive, think, understand, problem solve, mentally sequence, learn, and remember, resulting in the ability to organize occupational in a timely and safe manner. Psychosocial: interpersonal interactions, habits, routines and behaviors, active use of coping strategies, and/or environmental adaptations to develop skills necessary to successfully and appropriately participate in everyday tasks and social situations. Physical: Cognition: Psychosocial: JENKINS: 1-3 performance deficits = Low Complexity 3-5 performance deficits = Moderate Complexity 5 or more performance deficits = High Complexity LEVEL OF CLINICAL DECISION MAKING Comorbidities affect occupational performance: No (low complexity) Yes (moderate or high complexity) Modifications of tasks or assistance to enable completion of evaluation: Not necessary (Low complexity) Minimal to moderate modifications (Moderate complexity) Significant modifications (High complexity) Level of Clinical Decision Making: Problem-focused assessment(s), consideration of a limited number of treatment options, presents with no comorbidities and modification of tasks or assistance is not necessary. (Low complexity) Detailed assessment(s), consideration of several treatment options, may present with comorbidities and minimal to moderate modifications of tasks or assistance. (Moderate complexity) Comprehensive assessment(s), consideration of multiple treatment options, may present with comorbidities and significant modifications of tasks or assistance. (High complexity) OVERALL EVALUATION COMPLEXITY: Overall rating is the lowest of the three components (Profile & History, Assessment of Occupational Performance & Performance Deficits, and Level of Clinical Decision Making). In order to move to a higher level of evaluation, all three components must be of the higher level. LOW COMPLEXITY Brief history of medical/or therapy records relating to the presenting problem. An assessment(s) that identifies 1-3 performance deficits that result in activity limitation and/or participating restrictions. Includes analysis of the occupational profile, analysis of date from problem-focused assessment(s), and consideration of a limited number of treatment options. Patient presents with no comorbidities that affect occupational performance. Modification of tasks or assistance with assessment(s) is not necessary to enable completion of evaluation component. MODERATE COMPLEXITY Expanded review of medical/or therapy records and additional review of physical, cognitive, or psychosocial history related to current functional performance. An assessment(s) that identifies 3-5 performance deficits that result in activity limitation and/or participating restrictions. Analysis of the occupational profile, analysis of date from detailed assessment(s), and consideration of several treatment options. Patient may present with comorbidities that affect occupational performance. Minimal to moderate modifications of tasks or assistance with assessment(s) is necessary to enable completion of evaluation component. HIGH COMPLEXITY Review of medical/or therapy records and extensive additional review of physical, cognitive, or psychosocial history related to current functional performance. An assessment(s) that identifies 5 or more performance deficits that result in activity limitation and/or participating restrictions. Analysis of the occupational profile, analysis of date from comprehensive assessment(s), and consideration of multiple treatment options. Patient may present with comorbidities that affect occupational performance. Significant modifications of tasks or assistance with assessment(s) is necessary to enable completion of evaluation component. PROFILE AND HISTORY (including chart view) Expanded review of medical and/or therapy records and additional review of physical, cognitive, or psychosocial history related to current functional performance (moderate complexity) ASSESSMENT & PERFORMANCE DEFICITS (select all that apply): Physical: Right BKA; peripheral neuropathy; pressure sore on heel of left foot; hearing loss; impaired functional mobility - utilizes MWC or PWC for mobility. 3-5 performance deficits (Moderate complexity) LEVEL OF CLINICAL DECISION MAKING Comorbidities affect occupational performance: Yes (moderate or high complexity) Modifications of tasks or assistance to enable completion of evaluation: Minimal to moderate modifications (Moderate complexity) Detailed assessment(s), consideration of several treatment options, may present with comorbidities and minimal to moderate modifications of tasks or assistance. (Moderate complexity) MODERATE COMPLEXITY Expanded review of medical/or therapy records and additional review of physical, cognitive, or psychosocial history related to current functional performance. An assessment(s) that identifies 3-5 performance deficits that result in activity limitation and/or participating restrictions. Analysis of the occupational profile, analysis of date from detailed assessment(s), and consideration of several treatment options. Patient may present with comorbidities that affect occupational performance. Minimal to moderate modifications of tasks or assistance with assessment(s) is necessary to enable completion of evaluation component. /es/ KASIA Vaca/Yousuf Occupational Therapist Signed: 03/22/2024 15:40 SHORTY BALDERRAMA [facility]
--- OUTSIDE RECORDS SUMMARY | 2024-03-25 12:23 | XMS_ITS | Encounter Summary ---
Author Name [facility] [place] Organization [facility] [place] Address [address] [place] [address] Care Team Providers Care Commercial Diver Name Role Phone JIMENEZ CHESTER Primary Care [...] Cherry's Name Patient's Relationship to Policy Cherry [facility] (WNR) MEDICARE ADVANTAGE [facility] (WNR) May 14, 2020 [id number] [phone] PITER CASAS ERD PATIENT Selected Encounter This section includes the information on record at [place] for the Encounter. Date/Time Encounter Type Encounter Description Reason Provider Source Mar 20, 2024 03:24 PM Outpatient Encounter PRIMARY CARE/MEDICINE CLAUDIA HORTON Encounter Template Text not used by [place] Plan of Treatment: Future Appointments (+ 6 [...] comes from all [facility]. Appointment Date/Time Appointment Type Appointme nt Facility Name Apr 07, 2024 10:30 AM AMBULATORY - REHAB MEDICIN [facility] Active, Pending, and Scheduled Orders This [...] comes from all [facility]. Test Date/Time Test Type Test Details Facility Name Mar 11, 2024 12:16 PM Consult Order COMMUNITY CARE-WOUND CARE [place] Cons Research Advisor's Choice [facility] ([facility]) Mar 22, 2024 03:44 PM Consult Order MAJOR MED ECONSULT Cons Research Advisor's [facility] Encounter Notes: All associated encounter notes This section contains the clinical notes associated to the Encounter. Date/Time Encounter Note(s) Provider Source Mar 20, 2024 03:24 PM SOCIAL WORK RISK A SSESSMENT SCREENING NOTE: LOCAL TITLE: SOCIAL WORK TRIAGE ASSESSMENT STANDARD TITLE: SOCIAL WORK RISK ASSESSMENT SCREENING NOTE DATE OF NOTE: MAR 20, 2024@15:24 ENTRY DATE: MAR 20, 2024@15:24:47 AUTHOR: CLAUDIA HORTON COSIGNER: URGENCY: STATUS: COMPLETED 03/20/2024 voicemail Jung Amin [phone] Sent up from Benefits to ask about caregiver benefits. Wondering if she can get paid for caregiving. Goes to [employer] but wants to meet with someone in-person today. 20%SC SOCIAL WORK TRIAGE ASSESSMENT Referral source: Patient Presenting issues: Caregiver distress inquiring into caregiver compensation >>>>Brief summary: and his Moe are asking if it is possible to have 's compensated for the care she provides to the . Due to patient's current service connection of 20%, he is not eligible for the Program of Comprehensive Assistance for Family Caregivers (PCAFC)which requires to be 70% sc. is applying for an increase in [place]. SW discussed with patient and the route to becoming a compensated caregiver if the got certified and hired by a homecare agency. decided that would be outside of her ability. >>>>Social Work Interventions and Plan: SW discussed with patient and the route to becoming a compensated caregiver if the got certified and hired by a homecare agency. decided that would be outside of her ability. ALECIA provided and his with info sheets on: Program of General Caregiver Support Services (PGCSS) Program of Comprehensive Assistance for Family Caregivers (PCAFC) [place] Respite Care MAR/APR caregiver ramón /riccardo/ YONI PEREZ J2Ee Architect Signed: 03/20/2024 15:34 Receipt Acknowledged By: * AWAITING SIGNATURE * TREV CADENA JULIE G [facility]
--- OUTSIDE RECORDS SUMMARY | 2024-03-25 12:23 | XMS_ITS | Encounter Summary ---
Author Name [facility] [place] Organization [place] Address [address] [place] [address] Care Team Providers Care Tire Maintenance Technician Name Role Phone JIMENEZ CHESTER Primary Care [...] Cherry's Name Patient's Relationship to Policy Cherry [facility] (WNR) MEDICARE ADVANTAGE [facility] (WNR) May 14, 2020 [id number] [phone] PITER CASAS ERD PATIENT Selected Encounter This section includes the information on record at [place] for the Encounter. Date/Time Encounter Type Encounter Description Reason Provider Source Mar 20, 2024 02:30 PM HEARING AID REPAIR/MODIFYIN G AUDIOLOGY ICD-10-CM H90.3 Sensorineural hearing loss, bilateral JOHN MCMULLEN Encounter Template Text not used by [place] Assessments - Encounter Diagnoses This section includes the primary and secondary diagnoses documented for the Encounter. Date/Time Primary/Secondary Diagnosis Diagnosis Name Provider Source Mar 20, 2024 03:29 PM PRIMARY Sensorineural hearing loss, bilateral LUDWIN CORCORAN [facility] Mar 20, 2024 03:29 PM SECONDARY Encounter for fitting and adjustment of hearing aid LUDWIN CORCORAN [facility] Plan of Treatment: Future Appointments (+ 6 months) and Future Tests (+/- 45 days) The Plan of Treatment section includes future care activities for the patient from all [place] [facility] This section includes future appointments and future orders which are active, pending or scheduled. Future Appointments This section includes appointments that were scheduled to occur 6 months from the date of the Encounter, up to a maximum of 20 appointments. The data comes from all [facility]. Appointment Date/Time Appointment Type Appointme nt Facility Name Apr 07, 2024 10:30 AM AMBULATORY - REHAB MEDICIN E [facility] Active, Pending, and Scheduled Orders This section includes a listing of several types of active, pending, and scheduled orders, including clinic medications orders, diagnostic test orders, procedure orders and consult orders; where the start date of the order is 45 days before the date of the Encounter or 45 days after the date of theEncounter. The data comes from all [facility]. Test Date/Time Test Type Test Details Facility Name Mar 11, 2024 12:16 PM Consult Order COMMUNITY CARE-WOUND CARE [place] Cons Director Of Provider Relations's Choice [facility] ([facility]) Mar 22, 2024 03:44 PM Consult Order MAJOR MED ECONSULT Cons Director Of Provider Relations's Choice [facility] Encounter Notes: All associated encounter notes This section contains the clinical notes associated to the Encounter. Date/Time Encounter Note(s) Provider Source Mar 20, 2024 03:25 PM AUDIOLOGY NOTE: LOCAL TITLE: AUDIOLOGY CLINIC NOTE STANDARD TITLE: AUDIOLOGY NOTE DATE OF NOTE: MAR 20, 2024@15:25 ENTRY DATE: MAR 20, 2024@15:25:21 AUTHOR: MICK CORCORAN EXP COSIGNER: PRATEEK MCMULLEN URGENCY: STATUS: COMPLETED DIAGNOSIS Encounter for fitting and Adjustment of Hearing Aids Sensorineural Hearing Loss, Bilateral Reason for Visit: Hearing Aid Service Location of Visit(Room Number):2S-109 was seen for Hearing Aid Service/Repair: 30 minute Appointment Otoscopy: Free of Excessive Cerumen, Normal anatomy bilaterally DIAGNOSIS History: Patient seen for a hearing aid service/hearing aid check Make:RESOUND Model: ONE 61-R FRANKO Serial Number:[id number] Dome/Mold: FRANKO MICRO SILICONE MOLD The following Hearing aid problem(s) were presented Right Hearing Aid:COURTESY DRIVER TOO SHORT Left Hearing Aid:CLEAN AND CHECK-EARMOLD DEFECTIVE/TORN Action: Hearing Aids were cleaned and checked. A listening check revealed good sound quality: REPLACED WAX GUARDS, REPLACED RIGHT COURTESY DRIVER -3M ORDERED REPLACEMENT LEFT FRANKO MICRO MOLD-MAIL OUT [place] was counseled using a curriculum on the cleaning,care and use of hearing aids. Plan: Vet will contact call center as needed for follow up Patient is in agreement with this plan. Toxicology Supervisor:MAIL OUT NEW LEFT EARMOLD TO PATIENT, HE HAS CHANGED OUT RECEIVERS BEFORE /riccardo/ MICK CORCORAN AUDIO TECH Signed: 03/20/2024 15:30 /es/ Isidro Combs CCC-A Tutoring Manager Cosigned: 03/20/2024 16:20 MICK CORCORAN [facility]
--- OUTSIDE RECORDS SUMMARY | 2024-03-25 12:24 | XMS_ITS | Encounter Summary ---
Author Organization [facility] Address [address] [place] [address] Care Team Providers Care Tuber Machine Cutter Name Role Phone Elsewhere, Pcp Primary Care Provider Unavailabl e Reason for Visit * Reason Comments Med Refill Encounter Details Date Type Department Care Team (Late st Contact Info) Description 03/12/2024 Refill Senior Services in [facility] [address] [phone] Hannah Castillo, RAYNA, C.N.P. [address] [facility] [place] [phone] Med Refill Social History Tobacco Use Types [...] on filedocumented in this encounter Care Teams Tuber Machine Cutter Relationship Specialty Start Date End Date Elsewhere, Pcp PCP - General Internal Medicine 08/28/23 documented as of this encounter
--- OUTSIDE RECORDS SUMMARY | 2024-03-25 12:24 | XMS_ITS | Clinical Summary ---
Author Organization [facility] Address [address] [place] [address] Care Team Providers Care Gear Machine Operator General Name Role Phone Elsewhere, Pcp Primary Care Provider Unavailabl e Source Comments Patient records contain information from all sites at [facility]. For routine questions regarding patient records, call [phone] during business hours, M-F 8:00 AM - 5:00 PM Central Time. Record requests for emergency care only can be directed to [phone] at any time.[facility] Allergies No known active allergies Medications blood [...] guaze. Assessment & Plan (06/15/2023 4:18 PM ENGINEERING FACULTY): The wound bed is clean. A thin layer of silver stat will be applied with a gauze. Change daily. 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 Left Heel: Area continues to improve. Wound measures [id number]. Edges well defined, attached and 100% re-epithelialized tissues. Granulation tissue is observed along the lining of the edges under the bed of slough/eschar. Eschar is soft but not mushy. Wound bed is still approx 95% or more of slough/eschar. Scant drainage with dressing change. Resident tolerated cares without any concerns. New wound orders as follows: Assessment & Plan (06/15/2023 4:10 PM ENGINEERING FACULTY): 1: Gently cleanse area with NS. Pat dry. 2. Skin prep to gonsalo-wound. 3. Santyl to wound bed only. 4. Place gauze over wound. 5. cover with island dressing. 6. Change dressing daily. He may be discharged to home with home nursing for wound care . Assessment & Plan (06/01/2023 2:33 PM ENGINEERING FACULTY): Continue wound care and have ROVING CARRIER evaluate in one week. Dementia 05/20/2023 Overview (05/24/2023): No documented dementia or behaviors Assessment & Plan (05/24/2023 5:57 PM ENGINEERING FACULTY): He has low hearing which could contribute to him not understanding Assessment & Plan (05/20/2023 4:20 PM ENGINEERING FACULTY): Although initial BIMS testing scored 14, he has had episodes of what seems to be sundowning with strong suspicion of underlying dementia. Will have OT further evaluate. Hyperglycemia 04/22/2023 Overview (04/22/2023): Prior to recent hospitalization, insulin glargine dose was 25 units daily and short-acting insulin 10 units with meals. Assessment & Plan (05/24/2023 6:00 PM ENGINEERING FACULTY): A1C 7.2 He will follow up with his PCP in [place] Assessment & Plan (04/22/2023 8:28 PM ENGINEERING FACULTY): His appetite has been poor and he has been getting much less insulin than he is used to. His sugars however have been high. Will gradually increase mealtime insulin to 7 units. Previously on 10 units with meals. Snf (Current) Anticoagulant Treatment 08/2022 Overview (04/16/2023): On [...] side. Assessment & Plan (05/24/2023 5:18 PM ENGINEERING FACULTY): He has a brace/cast on right BKA. [...] site Assessment & Plan (04/16/2023 7:55 PM ENGINEERING FACULTY): Pain is well controlled. Stump care consists of washing with normal saline and dry. Cover with dry gauze or ABD b.i.d. he is wearing the knee brace to maintain extension in his working with therapies. He has follow-up with vascular surgery 05/11/2023. Assessment & Plan (04/12/2023 4:53 PM ENGINEERING FACULTY): Patient and mentioned he is doing well [...] 75mcg. Assessment & Plan (06/05/2023 9:25 PM ENGINEERING FACULTY): TSH value improved compared to prior value of 16.0 a month ago. Resident /nursing denied symptoms of hypothyroidism. Last T4 was 0.92 in April 2023. ceo and president confirmed levothyroxine is given every morning (6am) without other medications. Therefore, we will increase levothyroxine 50mcg to 75mcg and rechecked TSH in 6 weeks. Nursing instructed to continue monitoring for symptoms of hypothyroidism and contact [facility] provider if any concerns. Assessment & Plan (05/24/2023 5:24 PM ENGINEERING FACULTY): Increase levothyroxine to 50 mcg daily. senior living may give two 25 mcg tablets to equal 50 mcg. He will be discharging in a week Assessment & Plan (04/23/2023 12:56 PM ENGINEERING FACULTY): TSH will be done. He is currently on levothyroxine 25 mcg daily. Dose will need to be adjusted if TSH is elevated. Assessment & Plan (04/16/2023 7:56 PM ENGINEERING FACULTY): Recheck TSH mid April. Assessment & Plan (04/12/2023 4:45 PM ENGINEERING FACULTY): Continue levothyroxine. TSH reordered. 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 Assessment & Plan (04/12/2023 4:08 PM ENGINEERING FACULTY): Plans to discharge back home. Patient remains [...] status Assessment & Plan (05/24/2023 5:15 PM ENGINEERING FACULTY): He will be full code Assessment & Plan (01/17/2023 2:30 PM CDT): Continue full code status Hyperlipidemia 01/16/2023 Overview (05/24/2023): On atorvastatin Assessment & Plan (05/24/2023 6:01 PM ENGINEERING FACULTY): Stay on statin Assessment & Plan (01/17/2023 2:35 PM CDT): Continue atorvastatin Assessment & Plan (01/17/2023 2:01 PM CDT): Continue atorvastatin Weakness General 01/16/2023 Overview (01/16/2023): This is multifactorial and related to recent hospitalizations and multiple comorbidities. Assessment & Plan (06/05/2023 9:26 PM ENGINEERING FACULTY): Denied weakness. We will continue therapy. Assessment & Plan (05/24/2023 6:05 PM ENGINEERING FACULTY): He is getting stronger with therapy. He will continue therapy when he gets his prosthesis. He will have a wheelchair upon discharge. Assessment & Plan (04/12/2023 4:09 PM ENGINEERING FACULTY): Verbalized improvement with weakness. We will continue [...] 04/11/2023 Assessment & Plan (04/12/2023 3:58 PM ENGINEERING FACULTY): Stable. Denied dizziness, lightheadedness, shortness of breaths and palpitation. Assessment & Plan (01/17/2023 2:30 PM CDT): Stable. Assessment & Plan (01/17/2023 1:58 PM CDT): Stable. Assessment & Plan (01/16/2023 7:16 PM CDT): Most recent hemoglobin 9.3. 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 Assessment & Plan (05/24/2023 5:52 PM ENGINEERING FACULTY): Stable on current meds Assessment & Plan (04/23/2023 1:02 PM ENGINEERING FACULTY): BNAP 31,578 on 04/16/23. Dr. Gerardo increased furosemide to 40 mg bid and added spironolactone 25 mg daily. Weight today in [place] was 174 lb. No edema noted in left leg. No dyspnea. On O2 per N/C continuous. No change in medications until renal function results are available. Assessment & Plan (04/16/2023 7:41 PM ENGINEERING FACULTY): He had multiple medication changes during hospitalization including discontinuation of spironolactone and Entresto. Farxiga is being held. Metoprolol and furosemide doses were decreased. Assessment & Plan (04/12/2023 4:01 PM ENGINEERING FACULTY): No admission weight yet. Nursing to check [...] 12/22/2022 Assessment & Plan (04/22/2023 8:26 PM ENGINEERING FACULTY): Pro BN AP earlier today greater than [...] Apixaban Assessment & Plan (05/24/2023 5:53 PM ENGINEERING FACULTY): [facility] anticoagulation on apixaban Assessment & Plan (04/23/2023 1:03 PM ENGINEERING FACULTY): Ventricular rate controlled today Assessment & Plan (04/12/2023 3:59 PM ENGINEERING FACULTY): HR well controlled ranging from 82-85. Continue care plan. Assessment & Plan (01/17/2023 2:31 PM CDT): HR well controlled ranging from 64-99. Continue care plan. Assessment & Plan (01/16/2023 8:24 AM CDT): HR well controlled. Continue care plan. Skiagrapher Use Of Insulin Active 12/09/2022 Overview (01/16/2023): On insulin glargine and aspart started during hospitalization December 2022. Assessment & Plan (05/24/2023 5:20 PM ENGINEERING FACULTY): Nurse reports he is nonadherent to his [...] daily Assessment & Plan (06/07/2023 2:51 PM ENGINEERING FACULTY): Blood sugars have been elevated due to [...] hypoglycemia. Assessment & Plan (05/29/2023 7:56 PM ENGINEERING FACULTY): Patient's blood sugar continued to be on [...] possible. Assessment & Plan (05/24/2023 5:59 PM ENGINEERING FACULTY): Insulin dependent not always compliant with diet. Glargine will be increased to 17 units. Assessment & Plan (05/22/2023 6:43 PM ENGINEERING FACULTY): Blood sugar continued to be elevated mostly [...] 3 times daily with meals. Follow-up with R[facility]ING CARRIER next week. Dietitian/dietary to visit with patient and to discuss food options. Assessment & Plan (05/20/2023 4:22 PM ENGINEERING FACULTY): Recent blood sugars in the SNF setting have been elevated. Short and long-acting insulin doses have changed significantly since admission. Will have him follow- up with [facility] for further review of blood sugars. Assessment & Plan (04/23/2023 1:04 PM ENGINEERING FACULTY): Blood sugars not controlled. Increase Lantus to 14 units from 12. Assessment & Plan (04/16/2023 7:42 PM ENGINEERING FACULTY): Was previously on glipizide and higher doses of mealtime aspart. Blood sugars are being checked 4 times daily. May need insulin readjusted. Assessment & Plan (04/12/2023 4:04 PM ENGINEERING FACULTY): Blood sugars have been I< 200s. Currently [...] to 25 units and follow-up. Atherosclerosis Of Kaw Ar teries Of Other Extremities With Ulceration [...] 120-130 Assessment & Plan (04/12/2023 4:07 PM ENGINEERING FACULTY): Images from the original note were not [...] redness. Assessment & Plan (05/24/2023 5:14 PM ENGINEERING FACULTY): Stable Assessment & Plan (04/29/2023 7:54 PM ENGINEERING FACULTY): Today, nursing had reported left lower calf and ankle redness with open wound. On assessing the left calf/ankle, there was an open skin area (abrasion) that has no redness, swelling nor drainage. The skin was not warmth to touch and patient denied pain at 0/10 (nurse patient care manager was in attendance during visit). Nursing stated does look better than what it was this morning. They have been cleaning the wound area in apply Mepilex. Since there was no symptoms or evidence of infection on the left lower calf and ankle redness with open wound, nursing was instructed to continue skin check daily and current dressing. Contact [facility] providers if worsening skin condition. Of note, [...] for COVID-19 12/27/2022. Treated with remdesivir at . Anemia 01/16/2023 04/12/2023 Overview (04/12/2023): Lab Results Component Value Date WBC 9.0 04/11/2023 HGB 7.8 (L) 04/11/2023 HCT 24.9 (L) 04/11/2023 MCV 95 04/11/2023 PLT 381 04/11/2023 Assessment & Plan (04/12/2023 3:57 PM ENGINEERING FACULTY): CBC reordered. Denied dizziness, lightheadedness, shortness of [...] 04/11/2023 Assessment & Plan (04/12/2023 4:05 PM ENGINEERING FACULTY): BMP ordered. Assessment & Plan (01/17/2023 2:35 [...] Overview (01/15/2023): Onychomycosis of toenails; Original Code: [id number] Original Codesystem: SNOMED CT Classification: Medical Confirmation Status: Confirmed Diabetes Mellitus Type 2 01/10/2019 Loss Hearing Right 07/10/2007 4 Encounters Date Type Department Care Team Description 03/12/2024 Refill Senior Services in [facility] [address] [phone] Hannah Castillo APRN, C.N.P. Med [...] Comments Blood Pressure 107/66 06/18/2023 1:10 PM ENGINEERING FACULTY Pulse 78 06/18/2023 1:10 PM ENGINEERING FACULTY Temperature 36.6 ??C (97.8 ??F) 06/18/2023 1:10 PM CS T Respiratory Rate 16 06/18/2023 1:10 PM ENGINEERING FACULTY Oxygen Saturation 95% 06/18/2023 1:10 PM ENGINEERING FACULTY Inhaled Oxygen Concentration - - Weight 75.8 kg (167 lb) 06/18/2023 1:10 PM ENGINEERING FACULTY Height 175.3 cm (5' 9) 04/12/2023 3:21 PM ENGINEERING FACULTY Body Mass Index 24.66 04/12/2023 3:21 PM ENGINEERING FACULTY Plan of Treatment Health Maintenance Due Date [...] age to complete this topic Insurance MEDICARE [facility] Advance Directives For more information, please contact: [phone] * DNR/DNI (Latest Code Status on File) Date Activated Date Inactivated Comments 05/24/2023 6:14 PM * DNR/DNI Date Activated Date Inactivated Comments 04/12/2023 4:11 PM 04/16/2023 7:15 AM Care Teams Gear Machine Operator General Relationship Specialty Start Date End Date Elsewhere, Pcp PCP - General Internal Medicine 08/28/23
--- OUTSIDE RECORDS SUMMARY | 2024-03-25 12:24 | XMS_ITS ---
Author Organization [facility] Address [address] [place] [address] Care Team Providers Care Technical Data Analyst Name Role Phone Unavailable Unavailable Unavailable Surgery Details Not on file Complications Check Surgery Details section. Procedure Estimated Blood Loss Check Surgery Details section. Procedure Findings Check Surgery Details section. Procedure Specimens Taken Check Surgery Details section.
--- OUTSIDE RECORDS SUMMARY | 2024-03-25 12:24 | XMS_ITS | Clinical Summary ---
Author Organization [employer] (Inspect [employer]) s & [employer] [facility] Address [place], [place] [address] Care Team Providers Care Employee Communications Intern Name Role Phone VotelMelquiades MD Primary Care Provider + Nurses, Advanced Heart Failure Unavailable + Shade Manuel MD Unavailable [phone] Allergies No known active allergies Medications Medication Sig Dispensed Refills Start Date End Date Status blood-glucose meterIndications: Type 2 diabetes mellitus with complication (HC) Ascensia Glucometer, Dispense meter, test strips, lancets covered by pt ins. Test 3 times daily 1 Device 1 Active Insulin [place]dale, Disposable, (Novofine 32) 32 gauge x 1/4Indications:2 50.00 Diabetes Type 2, insulin dependent For administering insulin at home 4 times daily or as needed 400 Each 3 2 Active ketoconazole 2% topical (NIZORAL) cream Apply topically to affected area(s) once daily if needed. APPLY TO AFFECTED AREA BETWEEN EYEBROWS 1-2X DAILY FOR 2 WEEKS AT A TIME NEEDED FOR FLARES 1 Active artificial tears, peg 400-propylene glycol, (Systane) [...] at bedtime. 90 Tablet 3 3 Active acetaminophen (TYLENOL) 325 mg tabletIndications [...] times daily. Active levothyroxine (Synthroid) 75 mcg tabletIndications :Hypothyroidism (acquired) Take 1 Tablet (75 mcg) by mouth before breakfast. 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 E10.9 IDDM type I - Test 4 times/day. Reason: complicated diabetes. 400 Each 3 4 Active Farxiga 10 mg tabletIndications :HFrEF (heart failure with reduced ejection fraction) (HC) Take 1 Tablet (10 mg) by mouth once daily. 90 Tablet 3 4 Active clotrimazole (LOTRIMIN) 1 % creamIndications: Balanitis Apply topically to affected area(s) two times daily. Use for 3 weeks. 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 Change each sensor every 10 days 9 Each 3 4 Active metoprolol succinate (Toprol XL) 25 mg Sustained-Release tabletIndications :HFrEF (heart failure with reduced ejection fraction) (HC) Take 0.5 Tablets (12.5 mg) by mouth once daily in the evening. 45 Tablet 3 4 Active clopidogreL (PLAVIX) 75 mg tabletIndications :NSTEMI (non-ST elevated myocardial infarction) (HC) TAKE 1 TABLET(75 MG) BY MOUTH EVERY MORNING 90 Tablet 3 4 Active apixaban (Eliquis) 5 mg tabletIndications :Paroxysmal atrial fibrillation (HC) TAKE 1 TABLET(5 MG) BY MOUTH TWICE DAILY 180 Tablet 3 4 Active pantoprazole (PROTONIX) 40 mg delayed-release tabletIndications :Gastroesophageal reflux disease, unspecified whether esophagitis present Take 1 Tablet (40 mg) by mouth once daily. 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 Up to 3 tablets in 15 minutes. 50 Tablet 1 4 Active pregabalin (LYRICA) 50 mg capsuleIndication s:Phantom limb pain (HC) Take 1 Capsule (50 mg) by mouth three times daily. 90 Capsule 3 4 Active sacubitril-valsar walters (ENTRESTO 24 MG-26 MG TABLET) 24-26 mg tabletIndications :HFrEF (heart failure with reduced ejection fraction) (HC) Take 0.5 Tablets by mouth two times daily. 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 11/25/2019 HTN (hypertension) 10/28/2015 Hyperlipidemia LDL goal <70 10/28/2015 Adenomatous colon polyp 04/13/2015 Overview (03/16/2020): Colonoscopy 04/2015 polyps repeat in 5 years Colonoscopy 03/2020 polyps, repeat in 5 years Background diabetic retinopathy(362.01) 07/10/19 08 Unspecified hearing loss 07/10/2007 Coronary atherosclerosis of unspecified type of vessel, oneida or graft Overview (11/08/2011): 4 vessel CABG 2001 Lexiscan only for cardiac evaluation - no treadmill Other ill-defined and unknow n causes of morbidity and mortality Impotence of organic origin Resolved Problems Problem Noted Date Diagnosed Date Resolved Date Type 2 diabetes mellitus with complication 11/16/2017 12/22/2022 Heart disease, unspecified 0 07/10/2007 Encounters Date Type Department Care Team Description 03/14/2024 Telephone [facility] [address] [place] [phone] Shade Manuel MD 03/13/2024 11:00 AM CDT Patient Outreach [facility] [address] [place] [phone] Priyanka Hummel fisher mussel (Follow-up) 03/13/2024 Travel 03/12/2024 Refill [facility] [address] [place] [address] Melquiades Man MD Refill Request (Treasure Zimmer U-100 Insulin) 02/22/2024 1:40 PM CDT Orders Only [facility] [address] [place] [address] Lab, Sherita Lab 02/22/2024 Travel 02/17/2024 Travel 02/12/2024 Telephone [facility] [address] [facility] [address] [place] [address] Shade Manuel MD Follow Up 02/10/2024 8:12 AM CDT - 02/10/2024 12:50 PM CDT Emergency [facility] [address] [place] [address] Shira Morley MD Del Castillo, Isabelle Jennifer Rose Farro, MD Altered mental status, unspecified altered mental status type (Primary Dx); Lethargy; ALEX (acute kidney injury) (HC); Dehydration Discharge Disposition: Home Self Care 02/10/2024 Travel 02/07/2024 11:00 AM CDT Patient Outreach [address] [phone] Priyanka Hummel RN Diabetes (F/u insulin management) 02/07/2024 Travel 02/04/2024 Orders Only [facility] Scanner 1 scan: (1-Ord) [facility], CERVICAL SPINE WO, 02/04/2024 02/04/2024 Orders Only [facility] Scanner 1 scan: (1-Ord) ANAHEIM, CT HEAD/BRAIN WO CON, 02/04/2024 02/04/2024 Nurse Triage [facility] [address] [place] [address] Melquiades Man MD Neck Pain/problem 01/17/2024 12:40 PM CDT Orders Only [facility] [address] [place] [address] Lab, Sherita Lab 01/17/2024 11:00 AM CDT Patient Outreach [facility] [address] [facility] [place] [address] Priyanka Hummel fisher mussel (Download CGM for insulin management) 01/17/2024 Telephone [facility] [address] [place] [address] Melquiades Man MD 01/17/2024 Travel 01/11/2024 Nurse Triage [facility] [address] [place] [address] Melquiades Man MD Low Blood Pressure 01/11/2024 Nurse Triage [facility] [address] [place] [address] Melquiades Man MD Low Blood Pressure 01/08/2024 1:30 PM CDT Office Visit [facility] [address] [place] [address] Shade Manuel MD CV Heart Failure Est (EST PT. 6 MONTH F/U) 01/08/2024 Travel 01/04/2024 2:00 PM CDT Office Visit [facility] [address] [place] [address] Tatyana Nguyen PA Diabetes (a1c check ) 01/04/2024 Travel 01/04/2024 Telephone [facility] [address] [place] [address] Melquiades Man MD Procedure (DISCHARGE) 01/04/2024 Telephone [facility] [address] [place] [address] Tatyana Nguyen PA Appointment 01/01/2024 10:50 AM CDT Office Visit [facility] [address] [place] [address] Melquiades Man MD Pain (Phantom pain in rt foot, surgeon recommends lyrica); Derm Problem (Dark spot on left tenriism) 01/01/2024 Travel 12/27/2023 1:00 PM CDT - 12/27/2023 11:59 PM CDT Hospital Encounter [facility] ? [facility] [address] [place] [address] VotelMelquiades MD Medberry, Kayla, PT 12/27/2023 Travel 12/25/2023 Telephone [facility] [address] [place] [address] VoteMelquiades lewis MD 12/25/2023 Telephone [facility] [address] [place] [address] Votel, Melquiades Gray MD Form 12/24/2023 12:54 PM CDT - 12/24/2023 11:59 PM CDT [facility] [address] [place] [address] Votel, MD Marco Cleary Kayla, PT 12/24/2023 Travel from Last 3 Months Immunizations Name Administration Dates Next Due COVID-19 VACCINE COMIRNATY (PFIZER-BIONTECH 30MCG/0.3ML) 12YO+ PFS 03/05/2023 COVID-19 vaccine (Moderna 100mcg/0.5mL) PF, MDV 03/09/2021 COVID-19 vaccine (Moderna 50 mcg/0.5mL) 12YO+ BIVALENT PF, MDV 03/29/2022 COVID-19 vaccine (Pfizer-Bio NTech 30mcg/0.3mL) PF, MDV 03/09/2021,07/24/2020,07/03/2020 Influenza Virus, Unspecified 03/09/2021,02/12/20 20,03/15/2017 Influenza, High-dose [...] Brother kidney problems Heart Disease Father 1st [place] at 65 d 77 yo CHF Diabetes Mother Heart Disease Mother d 64 yo [place] Genetic Other There is a posi tive [...] st Contact Info) Description 04/15/2024 11:00 AM 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 [address] [place] [address] Health Maintenance Due Date Last Done Comments [...] STAT 02/10/2024 8:41 AM CDT SCAN-CT INTERPRETATION 09/23/202 4 12:00 AM CDT SCAN-CT INTERPRETATION 4 [...] of4 resultswithin the time period is included. Pathologist [facility] GLUCOSE 115 65 - 139 mg/dL [facility] Comment: ? Non-fasting reference interval UREA NITROGEN (BUN) 38(H) 7 - 25 mg/dL [facility] CREATININE 1.85(H) 0.70 - 1.22 mg/dL [facility] EGFR 36(L) > OR = 60 mL/min/1.7 3m2 [facility] BUN/CREATININE RATIO 21 6 - [...] FASTING:NO FASTING: NO Shade Manuel MD CHEMISTRY [facility] [address] [place] [address], [facility] [address] [place] [address] * URINALYSIS MICROSCOPIC (02/10/2024 10:19 AM CDT) Pathologist [facility] RBC None Seen 0-2, None Seen /HPF 02/10/2024 10:45 AM CDT [facility] WBC None Seen 0-2, 3-5, None Seen /HPF 02/10/2024 10:45 AM CDT [facility] BACTERIA None Seen None Seen, Rare, Few Bacteria/ HPF 02/10/2024 10:45 AM CDT [facility] EPITHELIAL CELLS Few None Seen, Few Epi/HPF 02/10/2024 10:45 AM CDT [facility] Urine URINE SPECIMEN / Unknown Non-Blood / Unknown 02/10/2024 10:19 AM CDT 02/10/2024 10:23 AM CDT Shira Morley MD URINE [facility] [address] [place] [address] * URINE CULTURE (02/10/2024 10:19 AM CDT) [facility] CULTURE 10-50,000 CFU/mL of multiple organisms, probable contaminants 02/11/2024 10:36 AM CDT [facility] Urine URINE SPECIMEN / Unknown Non-Blood / Unknown 02/10/2024 10:19 AM CDT 02/10/2024 10:23 AM CDT Shira Morley MD MICROBIOLOGY [facility] [address] [place] [address], [place] * (ABNORMAL) UA W/ SEDIMENT EXAM REFLEXED PER CRITERIA (02/10/2024 10:19 AM CDT) Pathologist [facility] COLOR Yellow Yellow Color 02/10/2024 10:28 AM [facility] CLARITY Clear Clear Clarity 02/10/2024 10:28 AM [facility] SPECIFIC GRAVITY,URINE 1.015 1.010, 1.015, 1.020, 1.025 02/10/2024 10:28 AM [facility] PH,URINE 5.5 6.0, 7.0, 8.0, 5.5, 6.5, 7.5, 8.5 02/10/2024 10:28 AM [facility] UROBILINOGEN, QUALITATIVE Normal Normal EU/dl 02/10/2024 10:28 AM [facility] PROTEIN, URINE Negative Negative mg/dL 02/10/2024 10:28 AM [facility] GLUCOSE, URINE >=1000(A) Negative mg/dL 02/10/2024 10:28 AM [facility] KETONES,URINE Negative Negative mg/dL 02/10/2024 10:28 AM [facility] BILIRUBIN,URI NE Negative Negative 02/10/2024 10:28 AM [facility] OCCULT BLOOD,URINE Negative Negative 02/10/2024 10:28 AM [facility] NITRITE Negative Negative 02/10/2024 10:28 AM [facility] LEUKOCYTE ESTERASE Negative Negative 02/10/2024 10:28 AM [facility] Urine URINE SPECIMEN / Unknown Non-Blood / Unknown 02/10/2024 10:19 AM CDT 02/10/2024 10:23 AM T Shira Morley MD URINE [facility] [address] [place] [address] * CT HEAD BRAIN WO (02/10/2024 9:00 [...] For Patients: ??As a result of the Cures Act, medical imaging exams and procedure [...] CBC WITH AUTO DIFFERENTIAL (02/10/2024 8:41 AM CDT) WHITE BLOOD COUNT 7.6 4.5 - 11.0 thou/cu mm 02/10/2024 8:58 AM [facility] RED BLOOD COUNT 3.47(L) 4.30 - 5.90 mil/cu mm 02/10/2024 8:58 AM [facility] HEMOGLOBIN 10.2(L) 13.5 - 17.5 g/dL 02/10/2024 8:58 AM [facility] HEMATOCRIT 32.8(L) 37.0 - 53.0 % 02/10/2024 8:58 AM [facility] MCV 95 80 - 100 fL 02/10/2024 8:58 AM [facility] MCH 29.4 26.0 - 34.0 pg 02/10/2024 8:58 AM [facility] MCHC 31.1(L) 32.0 - 36.0 g/dL 02/10/2024 8:58 AM [facility] RDW 14.9 11.5 - 15.5 % 02/10/2024 8:58 AM [facility] PLATELET COUNT 271 140 - 440 thou/cu mm 02/10/2024 8:58 AM [facility] MPV 10.1 6.5 - 11.0 fL 02/10/2024 8:58 AM [facility] % NEUT 70.9 % 02/10/2024 8:58 AM [facility] % LYMPH 14.1 % 02/10/2024 8:58 AM [facility] % MONO 8.8 % 02/10/2024 8:58 AM [facility] % EOS 5.9 % 02/10/2024 8:58 AM [facility] % BASO 0.3 % 02/10/2024 8:58 AM [facility] ABSOLUTE NEUTROPHILS 5.4 1.7 - 7.0 thou/cu mm 02/10/2024 8:58 AM [facility] ABSOLUTE LYMPHOCYTES 1.1 0.9 - 2.9 thou/cu mm 02/10/2024 8:58 AM [facility] ABSOLUTE MONOCYTES 0.7 <0.9 thou/cu mm 02/10/2024 8:58 AM [facility] ABSOLUTE EOSINOPHILS 0.5(H) <0.5 thou/cu mm 02/10/2024 8:58 AM [facility] ABSOLUTE BASOPHILS 0.0 <0.3 thou/cu mm 02/10/2024 8:58 AM [facility] Blood BLOOD SPECIMEN / Unknown Butterfly / Unknown 02/10/2024 8:41 AM [facility] 02/10/2024 8:45 AM [facility] Shira Morley MD HEMATOLOGY [facility] [address] [place] [address] * LACTATE VENOUS (02/10/2024 8:41 AM CDT) LACTATE,VENOUS 1.6 0.5 - 2.0 mmol/L 02/10/2024 9:07 AM CDT [facility] Blood BLOOD SPECIMEN / Unknown Butterfly / Unknown 02/10/2024 8:41 AM CDT 02/10/2024 8:45 AM CDT Shira Morley MD CHEMISTRY Performing Organization Address [facility]/ZIP Co de Phone Number [facility] [address] [place] [address] * TSH (02/10/2024 8:41 AM CDT) TSH 2.91 0.27 - 4.20 uIU/mL 02/10/2024 9:16 AM CDT [facility] Blood BLOOD SPECIMEN / Unknown Butterfly / Unknown 02/10/2024 8:41 AM CDT 02/10/2024 8:45 AM CDT Narrative [facility] - 02/10/2024 9:16 AM CDT In Adults, TSH values between 5.00 and 10.00 uIU/ml do not necessarily indicate the presence of Hypothyroidism. Correlation with clinical findings such as presence of goiter and/or Thyroperoxidase (TPO) Antibody may be helpful. For more information please refer to RONNIE 2004; 291: 228-238. Shira Morley MD CHEMISTRY [facility] [address] [place] [address] * AMMONIA (02/10/2024 8:41 AM CDT) AMMONIA 14 11 - 51 umol/L 02/10/2024 9:07 AM CDT [facility] Blood BLOOD SPECIMEN / Unknown Butterfly / Unknown 02/10/2024 8:41 AM CDT 02/10/2024 8:45 AM CDT Narrative [facility] - 02/10/2024 9:07 AM CDT 1. ??Sulfasalazine and its metabolite Sulfapyridine at therapeutic concentrations may lead to falsely low results. 2. ??Temozolomide and its metabolite MTIC may lead to falsely elevated results, and its metabolite AIC may lead to falsely low results. Shira Morley MD CHEMISTRY Performing Organization Address City/State/[facility] Co de Phone Number [facility] [address] [place] [address] * (ABNORMAL) HEPATIC FUNCTION PANEL (02/10/2024 8:41 AM CDT) ALBUMIN 3.6(L) 4.0 - 4.9 g/dL 02/10/2024 9:16 AM T [facility] PROTEIN,TOTAL 7.5 6.0 - 8.0 g/dL 02/10/2024 9:16 AM [facility] BILIRUBIN,TOTAL 0.3 0.0 - 1.2 mg/dL 02/10/2024 9:16 AM [facility] BILIRUBIN,DIRECT 0.1 0.0 - 0.2 mg/dL 02/10/2024 9:16 AM [facility] BILIRUBIN,INDIRE CT 02/10/2024 9:16 AM [facility] Comment:Unable to calculate, Direct Bili <0.2 ALK PHOSPHATASE 95 40 - 129 IU/L 02/10/2024 9:16 AM [facility] ALT (SGPT) 13 10 - 50 IU/L 02/10/2024 9:16 AM [facility] AST (SGOT) 19 10 - 50 IU/L 02/10/2024 9:16 AM [facility] Blood BLOOD SPECIMEN / Unknown Butterfly / Unknown 02/10/2024 8:41 AM CDT 02/10/2024 8:45 AM CDT Shira Morley MD CHEMISTRY [facility] [address] [place] [address] * SCAN-CT INTERPRETATION (02/04/2024 12:00 AM CDT) Only the most recent of2 resultswithin the time period is included. Anatomical Region Laterality Modality Other Scanner OTHER * (ABNORMAL) HEMOGLOBIN A1C MONITORING (POCT) (01/04/2024 2:14 PM CDT) HEMOGLOBIN A1C MONITORING (POCT) 9.7(H) <=6.4 % 01/04/2024 2:24 PM CDT [facility] Blood BLOOD SPECIMEN / Unknown Venipuncture / Unknown 01/04/2024 2:14 PM CDT 01/04/2024 2:16 PM CDT Narrative [facility] - 01/04/2024 2:24 PM CDT ? [...] Untreated Anemias, Splenectomy ? 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
--- OUTSIDE RECORDS SUMMARY | 2024-03-25 12:24 | XMS_ITS | Referral Summary ---
Author Organization [facility] Address [address] [place] [address] Care Team Providers Care Long Term Care Phlebotomist Name Role Phone Elsewhere, Pcp Primary Care Provider Unavailabl e Source Comments Patient records contain information from all sites at [facility]. For routine questions regarding patient records, call [phone] during business hours, M-F 8:00 AM - 5:00 PM Central Time. Record requests for emergency care only can be directed to [phone] at any time.[facility] Encounters Date Type Department Care Team Description 03/12/2024 Refill [facility] in [facility] [address] [place] [address] Hannah Castillo, RAYNA, C.N.P. Med Refill from Last 3 Months [...] guaze. Assessment & Plan (06/15/2023 4:18 PM DAMPENER): The wound bed is clean. A thin layer of silver stat will be applied with a gauze. Change daily. 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 Left Heel: Area continues to improve. Wound measures [id number]. Edges well defined, attached and 100% re-epithelialized tissues. Granulation tissue is observed along the lining of the edges under the bed of slough/eschar. Eschar is soft but not mushy. Wound bed is still approx 95% or more of slough/eschar. Scant drainage with dressing change. Resident tolerated cares without any concerns. New wound orders as follows: Assessment & Plan (06/15/2023 4:10 PM DAMPENER): 1: Gently cleanse area with NS. Pat dry. 2. Skin prep to gonsalo-wound. 3. Santyl to wound bed only. 4. Place gauze over wound. 5. cover with island dressing. 6. Change dressing daily. He may be discharged to home with home nursing for wound care . Assessment & Plan (06/01/2023 2:33 PM DAMPENER): Continue wound care and have [facility] evaluate in one week. Dementia 05/20/2023 Overview (05/24/2023): No documented dementia or behaviors Assessment & Plan (05/24/2023 5:57 PM DAMPENER): He has low hearing which could contribute to him not understanding Assessment & Plan (05/20/2023 4:20 PM DAMPENER): Although initial BIMS testing scored 14, he has had episodes of what seems to be sundowning with strong suspicion of underlying dementia. Will have OT further evaluate. Hyperglycemia 04/22/2023 Overview (04/22/2023): Prior to recent hospitalization, insulin glargine dose was 25 units daily and short-acting insulin 10 units with meals. Assessment & Plan (05/24/2023 6:00 PM DAMPENER): A1C 7.2 He will follow up with his PCP in [place] Assessment & Plan (04/22/2023 8:28 PM DAMPENER): His appetite has been poor and he has been getting much less insulin than he is used to. His sugars however have been high. Will gradually increase mealtime insulin to 7 units. Previously on 10 units with meals. Fpc (Current) Anticoagulant Treatment 08/2022 Overview (04/16/2023): On [...] side. 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 He will need a standard wheelchair Mr. Woods was admitted to [facility] April 10 following BK right lower [...] site Assessment & Plan (04/16/2023 7:55 PM DAMPENER): Pain is well controlled. Stump care consists of washing with normal saline and dry. Cover with dry gauze or ABD b.i.d. he is wearing the knee brace to maintain extension in his working with therapies. He has follow-up with vascular surgery 05/11/2023. Assessment & Plan (04/12/2023 4:53 PM DAMPENER): Patient and mentioned he is doing well [...] 75mcg. Assessment & Plan (06/05/2023 9:25 PM DAMPENER): TSH value improved compared to prior value of 16.0 a month ago. Resident /nursing denied symptoms of hypothyroidism. Last T4 was 0.92 in April 2023. radiology resident confirmed levothyroxine is given every morning (6am) without other medications. Therefore, we will increase levothyroxine 50mcg to 75mcg and rechecked TSH in 6 weeks. Nursing instructed to continue monitoring for symptoms of hypothyroidism and contact [place] provider if any concerns. Assessment & Plan (05/24/2023 5:24 PM DAMPENER): Increase levothyroxine to 50 mcg daily. halfway may give two 25 mcg tablets to equal 50 mcg. He will be discharging in a week Assessment & Plan (04/23/2023 12:56 PM DAMPENER): TSH will be done. He is currently on levothyroxine 25 mcg daily. Dose will need to be adjusted if TSH is elevated. Assessment & Plan (04/16/2023 7:56 PM DAMPENER): Recheck TSH mid April. Assessment & Plan (04/12/2023 4:45 PM DAMPENER): Continue levothyroxine. TSH reordered. 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 Assessment & Plan (04/12/2023 4:08 PM DAMPENER): Plans to discharge back home. Patient remains [...] home with home health care. Follow-up with ID provider Assessment & Plan (01/17/2023 2:06 PM [...] status Assessment & Plan (05/24/2023 5:15 PM DAMPENER): He will be full code Assessment & Plan (01/17/2023 2:30 PM CDT): Continue full code status Hyperlipidemia 01/16/2023 Overview (05/24/2023): On atorvastatin Assessment & Plan (05/24/2023 6:01 PM DAMPENER): Stay on statin Assessment & Plan (01/17/2023 2:35 PM CDT): Continue atorvastatin Assessment & Plan (01/17/2023 2:01 PM CDT): Continue atorvastatin Weakness General 01/16/2023 Overview (01/16/2023): This is multifactorial and related to recent hospitalizations and multiple comorbidities. Assessment & Plan (06/05/2023 9:26 PM DAMPENER): Denied weakness. We will continue therapy. Assessment & Plan (05/24/2023 6:05 PM DAMPENER): He is getting stronger with therapy. He will continue therapy when he gets his prosthesis. He will have a wheelchair upon discharge. Assessment & Plan (04/12/2023 4:09 PM DAMPENER): Verbalized improvement with weakness. We will continue [...] 04/11/2023 Assessment & Plan (04/12/2023 3:58 PM DAMPENER): Stable. Denied dizziness, lightheadedness, shortness of breaths and palpitation. Assessment & Plan (01/17/2023 2:30 PM CDT): Stable. Assessment & Plan (01/17/2023 1:58 PM CDT): Stable. Assessment & Plan (01/16/2023 7:16 PM CDT): Most recent hemoglobin 9.3. Atherosclerotic Heart Diseas e Of [place] Coronary Artery Without Angina Pectoris 01/15/2023 Overview [...] RAP). Assessment & Plan (05/24/2023 5:52 PM DAMPENER): Stable on current meds Assessment & Plan (04/23/2023 1:02 PM DAMPENER): BNAP 31,578 on 04/16/23. Dr. Gerardo increased furosemide to 40 mg bid and added spironolactone 25 mg daily. Weight today in [place] was 174 lb. No edema noted in left leg. No dyspnea. On O2 per N/C continuous. No change in medications until renal function results are available. Assessment & Plan (04/16/2023 7:41 PM DAMPENER): He had multiple medication changes during hospitalization including discontinuation of spironolactone and Entresto. Farxiga is being held. Metoprolol and furosemide doses were decreased. Assessment & Plan (04/12/2023 4:01 PM DAMPENER): No admission weight yet. Nursing to check [...] 12/22/2022 Assessment & Plan (04/22/2023 8:26 PM DAMPENER): Pro BN AP earlier today greater than [...] Apixaban Assessment & Plan (05/24/2023 5:53 PM DAMPENER): USP anticoagulation on apixaban Assessment & Plan (04/23/2023 1:03 PM DAMPENER): Ventricular rate controlled today Assessment & Plan (04/12/2023 3:59 PM DAMPENER): HR well controlled ranging from 82-85. Continue care plan. Assessment & Plan (01/17/2023 2:31 PM CDT): HR well controlled ranging from 64-99. Continue care plan. Assessment & Plan (01/16/2023 8:24 AM CDT): HR well controlled. Continue care plan. Fpc Use Of Insulin Active 12/09/2022 Overview (01/16/2023): On insulin glargine and aspart started during hospitalization December 2022. Assessment & Plan (05/24/2023 5:20 PM DAMPENER): Nurse reports he is nonadherent to his [...] daily Assessment & Plan (06/07/2023 2:51 PM DAMPENER): Blood sugars have been elevated due to [...] hypoglycemia. Assessment & Plan (05/29/2023 7:56 PM DAMPENER): Patient's blood sugar continued to be on [...] sugar diets like he does at the . I have discussed with nursing on encouraging [...] possible. Assessment & Plan (05/24/2023 5:59 PM DAMPENER): Insulin dependent not always compliant with diet. Glargine will be increased to 17 units. Assessment & Plan (05/22/2023 6:43 PM DAMPENER): Blood sugar continued to be elevated mostly [...] 3 times daily with meals. Follow-up with [facility] next week. Dietitian/dietary to visit with patient and to discuss food options. Assessment & Plan (05/20/2023 4:22 PM DAMPENER): Recent blood sugars in the SNF setting have been elevated. Short and long-acting insulin doses have changed significantly since admission. Will have him follow- up with [facility] for further review of blood sugars. Assessment & Plan (04/23/2023 1:04 PM DAMPENER): Blood sugars not controlled. Increase Lantus to 14 units from 12. Assessment & Plan (04/16/2023 7:42 PM DAMPENER): Was previously on glipizide and higher doses of mealtime aspart. Blood sugars are being checked 4 times daily. May need insulin readjusted. Assessment & Plan (04/12/2023 4:04 PM DAMPENER): Blood sugars have been I< 200s. Currently [...] to 25 units and follow-up. 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 Assessment & Plan (05/24/2023 5:14 PM DAMPENER): Stable Assessment & Plan (04/29/2023 7:54 PM DAMPENER): Today, nursing had reported left lower calf and ankle redness with open wound. On assessing the left calf/ankle, there was an open skin area (abrasion) that has no redness, swelling nor drainage. The skin was not warmth to touch and patient denied pain at 0/10 (nurse er manager was in attendance during visit). Nursing stated does look better than what it was this morning. They have been cleaning the wound area in apply Mepilex. Since there was no symptoms or evidence of infection on the left lower calf and ankle redness with open wound, nursing was instructed to continue skin check daily and current dressing. Contact [facility] providers if worsening skin condition. Of [...] for COVID-19 12/27/2022. Treated with remdesivir at [facility]. Anemia 01/16/2023 04/12/2023 Overview (04/12/2023): Lab Results Component Value Date WBC 9.0 04/11/2023 HGB 7.8 (L) 04/11/2023 HCT 24.9 (L) 04/11/2023 MCV 95 04/11/2023 PLT 381 04/11/2023 Assessment & Plan (04/12/2023 3:57 PM DAMPENER): CBC reordered. Denied dizziness, lightheadedness, shortness of [...] 04/11/2023 Assessment & Plan (04/12/2023 4:05 PM DAMPENER): BMP ordered. Assessment & Plan (01/17/2023 2:35 [...] Overview (01/15/2023): Onychomycosis of toenails; Original Code: [id number] Original Codesystem: SNOMED CT Classification: Medical Confirmation [...] Comments Blood Pressure 107/66 06/18/2023 1:10 PM DAMPENER Pulse 78 06/18/2023 1:10 PM DAMPENER Temperature 36.6 ??C (97.8 ??F) 06/18/2023 1:10 PM CS T Respiratory Rate 16 06/18/2023 1:10 PM DAMPENER Oxygen Saturation 95% 06/18/2023 1:10 PM DAMPENER Inhaled Oxygen Concentration - - Weight 75.8 kg (167 lb) 06/18/2023 1:10 PM DAMPENER Height 175.3 cm (5' 9) 04/12/2023 3:21 PM DAMPENER Body Mass Index 24.66 04/12/2023 3:21 PM DAMPENER Plan of Treatment Not on file Insurance MEDICARE [facility] Advance Directives For more information, please contact: [phone] * DNR/DNI (Latest Code Status on File) Date Activated Date Inactivated Comments 05/24/2023 6:14 PM * DNR/DNI Date Activated Date Inactivated Comments 04/12/2023 4:11 PM 04/16/2023 7:15 AM Care Teams Long Term Care Phlebotomist Relationship Specialty Start Date End Date Elsewhere, Pcp PCP - General Internal Medicine 08/28/23
== END 2024-03-25 12:20 | disposition home or self-care (01) ==
LOC: WOUND 12:19
PROVIDERS: PCP Family Medicine; Visit Provider Family Medicine
DX: L89.621 Pressure ulcer of left heel, stage 1 (principal); E11.621 Type 2 diabetes mellitus with foot ulcer; S81.801A Unspecified open wound, right lower leg, initial encounter; Z89.511 Acquired absence of right leg below knee; Z79.4 Long term (current) use of insulin; Z79.84 Long term (current) use of oral hypoglycemic drugs
CPT/HCPCS: 11042; G0463

== ENCOUNTER 2024-04-03 10:18 | Outpatient (CLI) | payer OTHER, MEDICARE, BC, SELFPAY ==
--- OUTSIDE RECORDS SUMMARY | 2024-04-03 10:21 | XMS_ITS | Encounter Summary ---
Author Name [facility] [facility] [place] Address [address] [place] [address] Care Team Providers Care Pressure Dispatcher Name Role Phone JIMENEZ CHESTER Primary [...] Relationship to Policy Cherry [facility] (WNR) MEDICARE ADVANTAGE [facility] (WNR) May 14, 2020 [id number] [phone] PITER CASAS ERD PATIENT Selected Encounter This section includes the information on record at [place] for the Encounter. Date/Time Encounter Type Encounter Description Reason Provider Source Aug 10, 2023 10:45 AM HEARING AID REPAIR/MODIFYIN G AUDIOLOGY ICD-10-CM H90.3 Sensorineural hearing loss, bilateral LUDWIN CORCORAN [facility] Encounter Template Text not used by [place] Assessments - Encounter Diagnoses This section includes the primary and secondary diagnoses documented for the Encounter. Date/Time Primary/Secondary Diagnosis Diagnosis Name Provider Source Aug 10, 2023 11:22 AM PRIMARY Sensorineural hearing loss, bilateral LUDWIN CORCORAN [facility] Aug 10, 2023 11:22 AM SECONDARY Encounter for fitting and adjustment of hearing aid LUDWIN CORCORAN [facility] Plan of Treatment: Future Appointments (+ 6 months) and Future Tests (+/- 45 days) The Plan of Treatment section includes future care activities for the patient from all [place] [facility] This section includes future appointments and future orders which are active, pending or scheduled. Future Appointments This section includes appointments that were scheduled to occur 6 months from the date of the Encounter, up to a maximum of 20 appointments. The data comes from all [facility] facilities. Appointment Date/Time Appointment Type Appointme nt Facility Name September 18, 2023 01:00 PM AMBULATORY - SURGERY [facility] Nov 08, 2023 10:00 AM AMBULATORY - MEDICINE [facility] ([facility] Dec 18, 2023 10:45 AM AMBULATORY - RE[facility]AB [facility] ([facility]) Jan 30, 2024 10:00 AM AMBULATORY - REHAB MEDICIN E [facility] Feb 02, 2024 10:15 AM AMBULATORY - SURGERY [facility] Encounter Notes: All associated encounter notes [...] CLEARED VENTS Problem will require repair by facility mechanic and left aid was mailed to facility mechanic today. Also sent micro cary in for repair Device can be programmed/ mailed to [facility] once repaired. Ordered replacement remote control 2-mail to Isabel was counseled using a curriculum on the cleaning,care and use of hearing aids. Plan: Vet will contact call center as needed for follow up Patient is in agreement with this plan. Performance Reporter:MAIL AID AND DEVICES TO RECEIVED /riccardo/ MICK CORCORAN AUDIO TECH Signed: 08/10/2023 11:22 08/16/2023 ADDENDUM STATUS: COMPLETED RECEIVED, CERTIFIED AND ISSUED RESOUND REMOTE CONTROL 2 DEVICE MAILED TO AT THE ADDRESS ON FILE /riccardo/ MICK CORCORAN AUDIO TECH Signed: 08/16/2023 16:07 08/16/2023 ADDENDUM STATUS: COMPLETED MAILING REPAIRED HEARING AIDS TO THE ADDRESS ON FILE /riccardo/ MICK Rand [facility] DIESEL ENGINE II PIPE FITTER Signed: 08/16/2023 17:33 08/17/2023 ADDENDUM STATUS: COMPLETED RECEIVED AND CERTIFIED REPAIRED RESOUND MICRO CARY DEVICE MAILED TO AT THE ADDRESS ON FILE /riccardo/ MICK CORCORAN AUDIO TECH Signed: 08/17/2023 15:12 MICK CORCORAN [facility]
--- OUTSIDE RECORDS SUMMARY | 2024-04-03 10:21 | XMS_ITS | Encounter Summary ---
Author Name [place] Address [address] [place] [address] Care Team Providers Care Child Guidance Counselor Name Role Phone JIMENEZ CHESTER Primary [...] Cherry's Name Patient's Relationship to Policy [facility] ([facility] MEDIC[facility] ADVANTAGE [facility] (WNR) May 14, 2020 [id number] [phone] PITER CASAS ERD PATIENT Selected Encounter This section includes the information on record at [place] for the Encounter. Date/Time Encounter Type Encounter Description Reason Provider Source Jan 30, 2024 10:00 AM WHEELCHAIR MNGMENT TRAINING WHEELCHAIR & ADVAN MOBILITY ICD-10-CM R53.1 Weakness SUSANNA EATON [facility] Encounter Template Text not used by [place] Assessments - Encounter Diagnoses This section includes the primary and secondary diagnoses documented for the Encounter. Date/Time Primary/Secondary Diagnosis Diagnosis Name Provider Source Jan 31, 2024 02:29 PM PRIMARY Weakness SUSANNA EATON [facility] Plan of Treatment: Future Appointments (+ 6 months) and Future Tests (+/- 45 days) The Plan of Treatment section includes future care activities for the patient from all [place] [facility]. This section includes future appointments and future orders which are active, pending or scheduled. Future Appointments This section includes appointments that were scheduled to occur 6 months from the date of the Encounter, up to a maximum of 20 appointments. The data comes from all [facility]. Appointment Date/Time Appointment Type Appointme nt Facility Name Feb 02, 2024 10:15 AM AMBULATORY - SURGERY [facility] Feb 12, 2024 02:00 PM AMBULATORY - NONE [facility] Mar 11, 2024 11:30 AM AMB[facility]ATORY - MEDICINE [facility] ([facility] Mar 18, 2024 07:01 AM AMBULATORY - NONE [facility] Mar 20, 2024 09:00 AM AMBULATORY - REHAB MEDICIN E [facility] Mar 20, 2024 02:30 PM AMBULATORY - SURGERY [facility] Apr 07, 2024 10:30 AM [facility] Encounter Notes: All associated encounter notes [...] Extended Care and Rehab Services Outpt -> Non-Assistant Facility Manager Safe Passenger Evaluation Second VM received from veterans after conversation with prosthetics equipment customer servicer. Discussed that the custom seating and mobility [...] to evaluation. It was made clear that [place] will not reimburse or manage self- purchased equipment. They will also be responsible for transporting the new PWC home after the final fitting, training, and issuance occurs. She noted understanding. /KASIA Jurado/ALEAH To OCCUPATIONAL THERAPIST Signed: 02/20/2024 11:39 Receipt Acknowledged By: 02/21/2024 11:45 /es/ JIMENEZ CHESTER MD PHYSICIAN 02/21/2024 08:39 /es/ Aamir Hazel RN [facility] --- Original Document --- 02/19/24 PATIENT CONTACT NOTE: Patient contact Name of : JUNG CASAS Name/Relationship of Contact if other than : Date & Time of Contact: Feb@14:54 Type of Contact: Telephone Reason for Contact: Voicemail received from veterans stating she was at [employer] and would like guidance on what vehicle will interface with the proposed PWC (below) and a vehicle lift. Will alert Nikunj Singh prosthetics equipment customer servicer to contact to assist. Proposed PWC: -Item: Quantum Stretto (16x18, power tilt and elevate, Hayder Comfort SPP 2 cushion) -Vendor: [employer] [facility] -Quote #: CPQ - [id number] -Estimated weight: 391.88# /riccardo/ KASIA Rai/Yousuf, ATP OCCUPATIONAL THERAPIST Signed: 02/19/2024 14:56 Receipt Acknowledged By: 02/19/2024 15:10 /es/ NIKUNJ Hood Tech/Prosthetics 02/19/2024 ADDENDUM STATUS: COMPLETED Spoke with Moe, gave her some insight. They are looking at either a [employer] [place] with a ramp installed, or a Odyssey with a fold-down ramp. Also let her know that she may contact his primary care provider and ask about vehicle grants. Reiterated that [place] WILL NOT pay for repair or maintenance of self-purchased ramps, property appraiser seats, or EZ-Lock type devices. /es/ NIKUNJ SINGH Mobility Tech/Prosthetics Signed: 02/19/2024 15:10 02/21/2024 ADDENDUM STATUS: COMPLETED Consult placed for PCP reviewal and signature. /es/ Aamir Hazel RN [facility] Signed: 02/21/2024 08:39 SUSANNA EATON [facility] Feb 19, 2024 02:53 PM REPORT OF CONTACT: LOCAL TITLE: PATIENT CONTACT NOTE STANDARD TITLE: REPORT OF CONTACT DATE OF NOTE: FEB 19, 2024@14:53 ENTRY DATE: FEB 19, 2024@14:53:51 AUTHOR: SUSANNA EATON EXP COSIGNER: URGENCY: STATUS: COMPLETED PATIENT CONTACT NOTE Has ADDENDA Patient contact Name of : YESSENIAYUKIBibi CARRILLO Name/Relationship of Contact if other than [place]: Date & Time of Contact: Feb@14:54 Type of Contact: Telephone Reason for Contact: Voicemail received from veterans stating she was at [employer] and would like guidance on what vehicle will interface with the proposed PWC (below) and a vehicle lift. Will alert Nikunj Singh, prosthetics equipment customer servicer to contact to assist. Proposed PWC: -Item: [employer] Stretto (16x18, power tilt and elevate, Hayder Comfort SPP 2 cushion) -Vendor: [employer] [facility] -Quote #: CPQ - [id number] -Estimated weight: 391.88# /es/ Susanna Eaton, OTR/L, ATP OCCUPATIONAL THERAPIST Signed: 02/19/2024 14:56 Receipt Acknowledged By: 02/19/2024 15:10 /riccardo/ NIKUNJ SINGH Mobility Tech/Prosthetics 02/19/2024 ADDENDUM STATUS: COMPLETED Spoke with Moe, gave her some insight. They are looking at either a Alannah Shelley with a ramp installed, or a Odyssey with a fold-down ramp. Also let her know that she may contact his primary care provider and ask about vehicle grants. Reiterated that [place] WILL NOT pay for repair or maintenance of self-purchased ramps, property appraiser seats, or EZ-Lock type devices. /riccardo/ NIKUNJ SINGH Mobility Tech/Prosthetics Signed: 02/19/2024 15:10 02/20/2024 ADDENDUM STATUS: COMPLETED Recommend consult to OT [facility]. Consult pathway: New Consult -> 20 Outpt Consult menu -> Extended Care and Rehab Services Outpt -> Non-Assistant Facility Manager Safe Passenger Evaluation Second VM received from veterans after conversation with prosthetics equipment customer servicer. Discussed that the custom seating and mobility [...] to evaluation. It was made clear that [place] will not reimburse or manage self- purchased equipment. They will also be responsible for transporting the new PWC home after the final fitting, training, and issuance occurs. She noted understanding. /riccardo/ Susanna Eaton OTR/L, ATP OCCUPATIONAL THERAPIST Signed: 02/20/2024 11:39 Receipt Acknowledged By: * AWAITING SIGNATURE * JIMENEZ CHESTER 02/21/2024 08:39 /riccardo/ Aamir Hazel RN [facility] 02/21/2024 ADDENDUM STATUS: COMPLETED Consult placed for PCP reviewal and signature. /riccardo/ Aamir Hazel RN [facility] Signed: 02/21/2024 08:39 SUSANNA EATON [facility] Feb 19, 2024 02:52 PM OCCUPATIONAL THERA [...] necessary to enable completion of evaluation component. /riccardo/ Susanna Eaton, OTR/L, ATP OCCUPATIONAL THERAPIST Signed: 02/19/2024 14:53 SUSANNA EATON [facility] Jan 31, 2024 02:16 PM OCCUPATIONAL THERA SAMIR NOTE: LOCAL TITLE: OT-PROGRESS NOTE STANDARD TITLE: [...] for the PWC. OT provided resources for [employer] (lift plate painter apprentice) and [employer] (lift resilient tile installer) to discuss options prior to purchasing a new vehicle. OT will hold on any orders until a return call is received from the veterans . Direct number provided. ALL ITEMS ON HOLD until return call is received from vet/: -Item: [employer] Internationaltto (16x18, power tilt and elevate, Hayder Comfort SPP 2 cushion) -Vendor: [employer] -Quote #: CPQ - [id number] -Estimated weight: 391.88# -Vehicle lift -Modular ramp [...] MEDICAL HISTORY: CAD - Coronary Artery Disease ([facility] 51123Rsfkbkla Mellitus Type 2 ([facility] [id number]) HTN - Hypertension ([facility] [id number]) Peripheral neuropathy due to type 2 diabetes mellitus ([facility] [id number]) Long-term current use of insulin (SCT 71Hyperlipidemia ([facility] [id number]) CHF - Congestive Heart Failure ([facility] 4234Exposure to potentially hazardous substance ([facility] [id number]) Hypothyroidism ([facility] 25165067) History of amputation of right leg through tibia and fibula ([facility] [id number]) SUBJECTIVE: Identified goal(s) with wheelchair use: -Take [...] provided from Medicare and 4WW provided from [place] Home accessibility: -All cares met on main floor -Front door (primary) -Unheated 3 car garage PRIOR LEVEL OF INDEPENDENCE: Vet/ reports: -Transferring: Mod I - present for stability as needed -Mobility: -In-home: MWC use primarily in-home w/ self-propulsion -Community: MWC with caregiver propulsion -Falls: 1 fall (slide off of bed after STR stay) -Driving: Dependent -2022 Executive Caddie XT5 - only drives currently Seating and mobility equipment: -[employer]are Tracer SX5 25.5 handrim to handrim total width (Medicare obtained) -~2 foam cushion, elements basic foam backrest PAIN ASSESSMENT: Pain Present: Yes If pain present intensity: Very very little 6/10 phantom limb pain OBJECTIVE: Vet arrives to session seated in standard MWC with providing caregiver propulsion. Session completed trial of midwheel drive C with the demonstrating safety with operation in [...] likely would be the most accessible option fdc. Recommended they look at vehicles for self-purchase. Once they narrow down to 2-3 vehicles, recommended they contact the primary lift plate painter apprentice (CIRQY) and lift resilient tile installer (Action) to confirm there would be no issues [...] Source: Carmen Mariscal & Estephanie Terry, Copyrighted 1988. Reprinted with permission. All rights reserved. /riccardo/ Susanna Eaton OTR/Yousuf, ALEAH OCCUPATIONAL THERAPIST Signed: 01/31/2024 14:29 SUSANNA EATON [facility]
--- OUTSIDE RECORDS SUMMARY | 2024-04-03 10:21 | XMS_ITS | Encounter Summary ---
Author Name Department [place] Organization [place] Address [address] [place] [address] Care Team Providers Care Validation Scientist Name Role Phone JIMENEZ CHESTER Primary Care [...] Cherry's Name Patient's Relationship to Policy Cherry [facility] (WNR) MEDICARE ADVANTAGE [facility] (WNR) May 14, 2020 [id number] [phone] PITER CASAS ERD PATIENT Selected Encounter This section includes the information on record at [place] for the Encounter. Date/Time Encounter Type Encounter Description Reason Pro vider Source Jan 10, 2024 09:52 AM Outpatient Encounter TELEPHONE PRIMARY CARE IHE Encounter Template Text not used by [place] Plan of Treatment: Future Appointments (+ 6 [...] 20 appointments. The data comes from all [place] treatment facilities. Appointment Date/Time Appointment Type Appointme nt Facility Name Jan 30, 2024 10:00 AM AMBULATORY - REHAB MEDICIN E [facility] Feb 02, 2024 10:15 AM AMBULATORY - SURGERY [facility] Feb 12, 2024 02:00 PM AMBULATORY - NONE [facility] Mar 11, 2024 11:30 AM AMBULATORY - MEDICINE [facility] ([facility] Mar 18, 2024 07:01 AM AMBULATORY - NONE [facility] Mar 20, 2024 09:00 AM AMBULATORY - REHAB MEDICIN E [facility] Mar 20, 2024 02:30 PM AMBULATORY - SURGERY [facility] Apr 07, 2024 10:30 AM AMBULATORY - REHAB MEDICIN E [facility] Encounter Notes: All associated encounter notes This section contains the clinical notes associated to the Encounter. Date/Time Encounter Note(s) Provider Source Jan 10, 2024 09:52 AM PRIMARY CARE NONVA NOTE: LOCAL TITLE: CO-MANAGED CARE NOTE STANDARD TITLE: PRIMARY CARE NONVA NOTE DATE OF NOTE: JAN 10, 2024@09:52 ENTRY DATE: JAN 10, 2024@09:53:03 AUTHOR: DANNY MORTON EXP COSIGNER: URGENCY: STATUS: COMPLETED CO-MANAGED CARE NOTE [...] Rx written by: Tatyana Nguyen MD Facility: [facility] Local provider phone # [phone] Local provider fax # [phone] Records scanned and available for review in [employer] or [employer]. Please view alert justowriter operator if: [facility] PCP needs further information to make decision (specify) -or- [facility] PCP recommends alternative (specify) -or- Request is denied (pt. will need to continue to fill outside of [facility]). Manager Of Manufacturing will then relay the above to local prescriber's office. /riccardo/ DANNY MORTON LPN Co-Material Planner Signed: 01/10/2024 09:57 Receipt Acknowledged By: 01/10/2024 [...] daily Qty: 30 Refills: 11 Indication: diabetes /es/ JIMENEZ CHESTER MD PHYSICIAN Signed: 01/10/2024 18:15 DANNY MORTON [facility]
--- OUTSIDE RECORDS SUMMARY | 2024-04-03 10:21 | XMS_ITS | Encounter Summary ---
Author Name [place] Address [address] [place] [address] Care Team Providers Care Parasitology Teacher Name Role Phone JIMENEZ CHESTER Primary [...] Cherry's Name Patient's Relationship to Policy Cherry [facility] ([facility]) MEDICARE ADVANTAGE [facility] (WNR) May 14, 2020 [id number] [phone] PITER CASAS ERD PATIENT Selected Encounter This section includes the information on record at [place] for the Encounter. Date/Time Encounter Type Encounter Description Reason Pro vider Source Jan 31, 2024 10:16 AM Outpatient Encounter WHEELCHAIR & ADVAN MOBILITY IHE Encounter Template Text not used by [place] Plan of Treatment: Future Appointments (+ 6 [...] 20 appointments. The data comes from all [place] treatment [facility]. Appointment Date/Time Appointment Type Appointme nt Facility Name Feb 02, 2024 10:15 AM AMBULATORY - SURGERY [facility] Feb 12, 2024 02:00 PM AMBULATORY - NONE [facility] Mar 11, 2024 11:30 AM AMBULATORY - MEDICINE [facility] ([facility] Mar 18, 2024 07:01 AM AMBULATORY - NONE [facility] Mar 20, 2024 09:00 AM AMBULATORY - REHAB MEDICIN E [facility] Mar 20, 2024 02:30 PM AMBULATORY - SURGERY [facility] Apr 07, 2024 10:30 AM AMBULATORY - REHAB MEDICIN E [facility] Encounter Notes: All associated encounter notes This [...] NOTE Has ADDENDA Patient contact Name of Dawson: JUNG CASAS Name/Relationship of Contact if other [...] in the chair. Please contact Shellie at [phone] /riccardo/ ANABELLA JAMIL Advanced MSA Signed: 01/31/2024 10:18 Receipt Acknowledged By: 01/31/2024 10:21 /es/ Ronald Franks OTR/L, ATP OCCUPATIONAL THERAPIST 01/31/2024 ADDENDUM STATUS: COMPLETED Call returned. Discussed that hitch or interior mount lifts would be approved through [place] prosthetics. If ramped entry is desired, it would go through the safe passenger clinic. Although given his service connections, it does not appear he would meet approval for the 4502 [address] and this was discussed. Vet/ would be responsible for self-purchasing a side or rear ramped entry vehicle. She noted understanding. /riccardo/ Ronald Franks, OTR/L, ATP OCCUPATIONAL THERAPIST Signed: 01/31/2024 10:23 ANABELLA JAMIL [facility]
--- OUTSIDE RECORDS SUMMARY | 2024-04-03 10:21 | XMS_ITS | Encounter Summary ---
Author Name Department [place] Organization [place] Address [address] [place] [address] Care Team Providers Care Machinist Helper Name Role Phone JIMENEZ CHESTER Primary Care [...] Cherry's Name Patient's Relationship to Policy Cherry [facility] (WNR) MEDICARE ADVANTAGE [facility] (WNR) May 14, 2020 [id number] [phone] PITER CASAS ERD PATIENT Selected Encounter This section includes the information on record at [place] for the Encounter. Date/Time Encounter Type Encounter Description Reason Provider Source September 18, 2023 01:00 PM HEARING AID FITTING/CHECKIN G AUDIOLOGY ICD-10-CM H90.3 Sensorineural hearing loss, bilateral RADHA MAKI [facility] Encounter Template Text not used by [place] Assessments - Encounter Diagnoses This section includes the primary and secondary diagnoses documented for the Encounter. Date/Time Primary/Secondary Diagnosis Diagnosis Name Provider Source September 18, 2023 04:52 PM PRIMARY Sensorineural hearing loss, bilateral RADHA MAKI [facility] September 18, 2023 04:52 PM SECONDARY Encounter for fitting and adjustment of hearing aid RADHA MAKI [facility] Plan of Treatment: Future Appointments (+ 6 months) and Future Tests (+/- 45 days) The Plan of Treatment section includes future care activities for the patient from all [place] [facility]. This section includes future appointments and future orders which are active, pending or scheduled. Future Appointments This section includes appointments that were scheduled to occur 6 months from the date of the Encounter, up to a maximum of 20 appointments. The data comes from all [facility] facilities. Appointment Date/Time Appointment Type Appointme nt Facility Name Nov 08, 2023 10:00 AM AMBULATORY - MEDICINE [facility] ([facility]) Dec 18, 2023 10:45 AM AMBULATORY - [place] [facility] Jan 30, 2024 10:00 AM AMBULATORY - REHAB MEDICIN E [facility] Feb 02, 2024 10:15 AM AMBULATORY - SURGERY [facility] Feb 12, 2024 02:00 PM AMBULATORY - NONE [facility] Mar 11, 2024 11:30 AM [facility]ATORY - [facility]ICINE [facility] Mar 18, 2024 07:01 AM AMBULATORY - NONE [facility] Mar 20, 2024 09:00 AM AMBULATORY - REHAB MEDICFL E [facility] Mar 20, 2024 02:30 PM AMBULATORY - SURGERY [facility] Encounter Notes: All associated encounter notes [...] The following hearing aid problem/s were presented: Oriska and his are typically seen through community care. They reported that the eligibility criteria recently changed and now they have to drive here to [place] for appointments. This is understandably frustrating. would [...] from aids. Hearing aids right/left; Issued 12/07/2020 ([facility]): Make: Resound Model: One 61 miniRIC-R Style: [facility] Serial #s: [id number] Acoustics: 2MP, silicone micro molds Action: - Aids cleaned and checked. - Paired remote control and multi-carrie to hearing aids. given brief tutorial per his request, as he has already used both of these devices before. Verified functionality. - and informed that we offer video and phone call appointments for future concerns. They will keep this in mind. Plan: - Oriska will contact this clinic if questions or problems arise. - Oriska is in agreement with this plan. /riccardo/ MADI MAKI [employer] Pneudraulic Systems Mechanic Signed: 09/18/2023 16:[address] [facility]
--- OUTSIDE RECORDS SUMMARY | 2024-04-03 10:21 | XMS_ITS | Encounter Summary ---
Author Name [facility] [place] Organization [facility] [place] Address [address] [place] [address] Care Team Providers Care Piling Cutter Name Role Phone JIMENEZ CHESTER Primary Care [...] Cherry's Name Patient's Relationship to Policy Cherry [facility] (WNR) MEDICARE ADVANTAGE [facility] (WNR) May 14, 2020 [id number] [phone] PITER CASAS ERD PATIENT Selected Encounter This section includes the information on record at [place] for the Encounter. Date/Time Encounter Type Encounter Description Reason Provider Source Nov 08, 2023 10:00 AM OFFICE O/P EST HI 40 MIN PRIMARY CARE/MEDICINE ICD-10-CM E11.9 Type 2 diabetes mellitus without complications JIMENEZ CHESTER [place] Encounter Template Text not used by [place] Assessments - Encounter Diagnoses This section includes the primary and secondary diagnoses documented for the Encounter. Date/Time Primary/Secondary Diagnosis Diagnosis Name Provider Source Nov 09, 2023 07:19 AM PRIMARY Type 2 diabetes mellitus without complications JIMENEZ CHESTER ([facility]) Nov 09, 2023 07:19 AM SECONDARY Athscl heart disease of [place] coronary artery w/o ang pctrs JIMENEZ CHESTER ([facility]) Nov 09, 2023 07:19 AM SECONDARY Encntr for general adult medical exam w/o abnormal findings JIMENEZ CHESTER ([facility]) Nov 09, 2023 07:19 AM SECONDARY Essential (primary) hypertension JIMENEZ CHESTER [place] ([facility]) Nov 09, 2023 07:19 AM SECONDARY Heart failure, unspecified JIMENEZ CHESTER [place] ([facility]) Nov 09, 2023 07:19 AM SECONDARY Hyperlipidemia, unspecified JIMENEZ CHESTER [place] ([facility]) Nov 09, 2023 07:19 AM SECONDARY Hypothyroidism, unspecified JIMENEZ CHESTER [place] ([facility]) Nov 09, 2023 07:19 AM 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 This section includes future appointments and future orders which are active, pending or scheduled. Future Appointments This section includes appointments that were scheduled to occur 6 months from the date of the Encounter, up to a maximum of 20 appointments. The data comes from all [facility] facilities. Appointment Date/Time Appointment Type Appointme nt Facility Name Dec 18, 2023 10:45 AM AMBULATORY - RE[facility] MEDIC[facility] E [facility] ([facility]) Jan 30, 2024 10:00 AM AMBULATORY - REHAB MEDICIN [facility] Feb 02, 2024 10:15 AM AMBULATORY - SURGERY [facility] Feb 12, 2024 02:00 PM AMBULATORY - NONE [facility] Mar 11, 2024 11:30 AM AMBULATORY - MEDICINE [facility] ([facility]) Mar 18, 2024 07:01 AM AMBULATORY - NONE [facility] Mar 20, 2024 09:00 [facility] Mar 20, 2024 02:30 PM [facility] - SURGERY [facility] Apr 07, 2024 10:30 [facility] Vital Signs: All taken on the encounter date This section contains inpatient and outpatient Vital Signs collected on the date of the Encounter. Date/Time Temperature Pulse Blood Pressure Respiratory Rate SP02 Pain Height Weight Body Mass Index Source Nov 08, 2023 09:55 AM 98.7 72 116/69 16 97 0 69 166.1 25 [facility] ([facility]) Social History: Smoking Status (Most current) [...] 08, 2023 10:00 AM VA-TOBACCO FORMER USER [facility] ([facility]) Tobacco Use History This section includes a history of the smoking, or tobacco-related health factors, that were collected on or before the date of the Encounter. The data comes from the [place] facility where the Encounter took place. Date/Time Smoking Status/Tobacco Use Comment F acility Nov 08, 2023 10:00 AM VA-TOBACCO QUIT 15 YRS OR MORE [facility] ([facility]) Nov 23, 2022 11:00 AM VA-TOBACCO FORMER USER [facility] ([facility]) Nov 23, 2022 11:00 AM VA-TOBACCO QUIT 15 YRS OR MORE [facility] ([facility]) Nov 29, 2021 10:00 AM VA-TOBACCO FORMER USER [facility] ([facility]) Nov 29, 2021 10:00 AM VA-TOBACCO QUIT 15 YRS OR MORE [facility] ([facility]) Oct 21, 2020 10:30 AM VA-TOBACCO FORMER USER [facility] ([facility]) Oct 21, 2020 10:30 AM VA-TOBACCO QUIT 15 YRS OR MORE [facility] ([facility]) Encounter Notes: All associated encounter notes This section contains the clinical notes associated to the Encounter. Date/Time Encounter Note(s) Provider Source Nov 08, 2023 10:18 AM H & P NOTE: LOCAL TITLE: [facility] ANNUAL VISIT STANDARD TITLE: H & P [...] point. He is working with provider at [facility]. Rory has had a right lower extremity [...] be receiving his insulin aspart through the [place]. Co-managed: [facility] - Melquiades Man MD - 11/06/2023 [...] Rare 4. Illicit drugs: none 5. Employment: [employer] work 39 years 6. Service: [employer] Allergies: NKDA Physical Exam: Temp: 98.7 F [...] with Reduced EF - Follow-up planned at [facility] (private insurance) - LDL goal < 70, [...] LNP-S, * 3 03/09/2021 [facility]* COVID-19 ([employer]), MRNA, LNP-S, * 2 07/24/2020 [facility]* COVID-19 ([employer]), MRNA, LNP-S, * 1 07/03/2020 [facility]* INFLUENZA, HIGH-DOSE, QUADRIVALE* 1 04/05/2022 [facility] PNEUMOCOCCAL CONJUGATE PCV 13 01/21/2015 [facility]* <C> PNEUMOCOCCAL POLYSACCHARIDE PPV23 02/09/2011 [facility]* PNEUMOCOCCAL POLYSACCHARIDE PPV23 03/06/2006 [facility]* TDAP 01/21/2021 [facility]* <C> ZOSTER RECOMBINANT 2 01/21/2021 [facility]* ZOSTER RECOMBINANT 1 10/21/2020 [facility]* RTC in 1 year annual visit CPRS [...] were also reviewed/updated for accuracy. Allergies/ADR from [facility] may not display in CPRS. Use JLV MRT5 - Allergies/ADRs FACILITY ALLERGY/ADR -------- No Remote Allergy/ADR Data available for this patient [facility] No Known Allergies Active and [...] MD PHYSICIAN Signed: 11/09/2023 07:20 JIMENEZ CHESTER ([facility]) Nov 08, 2023 10:11 AM ADVANCE DIRECTIVE: LOCAL TITLE: AD NOTIFICATION AND SCREENING STANDARD TITLE: ADVANCE DIRECTIVE DATE OF NOTE: NOV 08, 2023@10:11 ENTRY DATE: NOV 08, 2023@10:12:18 AUTHOR: ZARI ANTHONY COSIGNER: URGENCY: STATUS: COMPLETED ADVANCE DIRECTIVE NOTIFICATION: Patient was given written notification of the following rights: 1. Accept or refuse any medical treatment. 2. Complete a durable power of equestrian trainer for health care. 3. Complete a living will. ADVANCE DIRECTIVE SCREENING: Does patient have an Advance Directive? The patient does not have an Advance Directive. The patient wishes to create an Advance Directive for health care. The patient has no questions about completing the Advance Directive forms. /riccardo/ ZARI ANTHONY LPN Signed: 11/08/2023 10:12 ZARI ANTHONY ([facility]) Nov 08, 2023 10:01 AM PRIMARY CARE NOTE: LOCAL TITLE: [facility] PROGRESS NOTE-[facility] STANDARD TITLE: PRIMARY CARE NOTE DATE OF [...] Not at all Suicide Screen: C-SSRS Screening Drew Suicide Severity Rating Scale (C-SSRS) screener 1. [...] ulcers, or a wound from a medical assistant float or Patient is bed-confined or a wheelchair-user or Patient requires assistance to transfer/change position No, Skin Screen is Negative Home Abuse/Violence Screen Is your home free of abuse and violence? Yes MOVE! Program Screen Body Mass Index (BMI)= 24.6 [place]: Collection DT Specimen Test Name Result Units Ref Range 11/23/2022 12:09 BLOOD !! HEMOGLOBIN A1C 7.4 H % 4.0 - 6.0 !! Indicates COMMENTS AVAILABLE...Refer to Interim Lab Report. [place] Hgb A1C: No data available [place] Hgb A1C: No data available Point of Care Hgb A1C: POC HGB A1C____ Outpatient Nutrition Screen Body Mass Index (BMI)= 24.6 [place]: Collection DT Specimen Test Name Result Units Ref Range 11/23/2022 12:09 BLOOD !! HEMOGLOBIN A1C 7.4 H % 4.0 - 6.0 !! Indicates COMMENTS AVAILABLE...Refer to Interim Lab Report. [place] Hgb A1C: No data available [place] Hgb A1C: No data available Point of [...] Abnormal( is being followed by PCP through [facility] and the [facility]. is a Right below the knee amputee. /riccardo/ ZARI ANTHONY LPN Signed: 11/08/2023 10:10 ZARI ANTHONY ([facility])
--- OUTSIDE RECORDS SUMMARY | 2024-04-03 10:21 | XMS_ITS | Encounter Summary ---
Author Name [facility] [place] Organization [place] Address [address] [place] [address] Care Team Providers Care Regulatory Compliance Director Name Role Phone JIMENEZ CHESTER Primary [...] Cherry's Name Patient's Relationship to Policy Cherry [facility] (WNR) MEDICARE ADVANTAGE [facility] (WNR) May 14, 2020 [id number] [phone] PITER CASAS ERD PATIENT Selected Encounter This section includes the information on record at [place] for the Encounter. Date/Time Encounter Type Encounter Description Reason Pro vider Source Jan 04, 2024 03:16 PM Outpatient Encounter COMMUNITY CARE CONSULT I[facility] Encounter Template Text not used by [place] Plan of Treatment: Future Appointments (+ 6 [...] 20 appointments. The data comes from all [place] treatment facilities. Appointment Date/Time Appointment Type Appointme nt Facility Name Jan 30, 2024 10:00 AM AMBULATORY - REHAB MEDICIN E [facility] Feb 02, 2024 10:15 AM AMBUL[facility]ORY [facility] SUR[facility]ERY [facility] Feb 12, 2024 02:00 PM AMBULATORY - NONE [facility] Mar 11, 2024 11:30 AM AMBULATORY - MEDICINE [facility] ([facility]) Mar 18, 2024 07:01 AM AMBULATORY - NONE [facility] Mar 20, 2024 09:00 AM AMBULATORY - REHAB MEDICIN E [facility] Mar 20, 2024 02:30 PM AMBULATORY - SURGERY [facility] Apr 07, 2024 10:30 AM AMBULATORY - REHAB MEDICIN E [facility] Encounter Notes: All associated encounter notes This section contains the clinical notes associated to the Encounter. Date/Time Encounter Note(s) Provider Source Jan 04, 2024 03:16 PM PHARMACY NOTE: LOCAL TITLE: PHARMACY NON [place] CARE MEDICATIONS STANDARD TITLE: PHARMACY NOTE DATE OF NOTE: JAN 04, 2024@15:16 ENTRY DATE: JAN 04, 2024@15:17:04 AUTHOR: BONNIE GONZALEZ COSIGNER: URGENCY: STATUS: COMPLETED [facility] RECEIVED electronic prescription(s) (eRX(s)) from NON-VA Provider: Dr. Tatyana Nguyen Date eRX received: Dec Outside (NON-VA) provider not authorized to write for prescription(s) through [place] pharmacy. Prescription request REDIRECTED via FAX to one of the following for review: [X][facility] (Dual) Care [ ]Other: eRx Prescription Information: 1. [id number] insulin aspart (U-100) TATYANA NGUYEN MA 01/04/24 [...] GONZALEZ PHARMACIST Signed: 01/04/2024 15:18 BONNIE GONZALEZ [facility]
--- OUTSIDE RECORDS SUMMARY | 2024-04-03 10:21 | XMS_ITS | Continuity of Care Document ---
Author Name [facility] Organization [facility] Care Team Providers Care Graduate Assistant Name Role Phone [facility] Unavailable Unavailable Problems Combined list of problems from Department of Defense and Veterans Affairs facilities. It does not include entries that were removed or entered in error. Problem Status Onset Date Problem Type Date of Resolution Comments Source Exposure to potentially hazardous substance ([facility] [id number]) Active 07/20/19 24 Condition Jul 20, 2023 Entered By: MECHELLE DEMPSEY [facility]: [facility] Initiative [facility] CAD - Coronary Artery Disease ([facility] [id number]) Active Condition [place] ([facility]) CHF - Congestive Heart Failure ([facility] [id number]) Active Condition [place] ([facility]) Diabetes Mellitus Type 2 ([facility] [id number]) Active Condition [place] ([facility]) History of amputation of right leg through tibia and fibula Active Condition [place] ([facility]) HTN - Hypertension ([facility] [id number]) Active Condition [place] ([facility]) Hyperlipidemia ([facility] [id number]) Active Condition [facility]) Hypothyroidism ([facility] [id number]) Active Condition [place] ([facility]) Long-term current use of insulin Active Condition [place] ([facility]) Peripheral neuropathy due to type 2 diabetes mellitus Active Condition [place] ([facility]) Diagnosis: ICD-10-CM Z89.511 Acquired absence of right leg below knee Active Diagnosis [facility] Diagnosis: ICD-10-CM Z65.8 Oth problems related to psychosocial circumstances Active Diagnosis [facility] Diagnosis: ICD-10-CM H90.3 Sensorineural hearing loss, bilateral Active Diagnosis [facility] Diagnosis: ICD-10-CM L89.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, stage 3 Active Diagnosis [place] ([facility]) Diagnosis: ICD-10-CM Z46.1 Encounter for fitting and adjustment of hearing aid Active Diagnosis [facility] Diagnosis: ICD-10-CM R53.1 Weakness Active Diagnosis [facility] Diagnosis: ICD-10-CM Z74.09 Other reduced mobility Active Diagnosis [place] ([facility]) Diagnosis: ICD-10-CM E11.9 Type 2 diabetes mellitus without complications Active Diagnosis [place] ([facility]) Diagnosis: ICD-10-CM I50.9 Heart failure, unspecified Active Diagnosis [place] ([facility]) Diagnosis: ICD-10-CM R26.89 Other abnormalities of gait [...] GEL,TOP APPLY THIN LAYER TOPICALL Y DIRECTED FOLLOWKATRINA Jackson WOUND CARE ORDERS TOPICA L 02/16/2024 [id number] KATHY MURPHY 2022 40 [facility] CLOPIDOGREL BISULFATE 75MG TAB TAKE ONE [...] THE SKIN DAILY SUBCUT ANEOUS RYAN GLASS 2023 [place] ([facility]) INSULIN,ASP ART,HUMAN (EQV-NOVOLO [...] 90 UNITS/DA Y SUBCUT ANEOUS ACTIVE 03/12/2025 [id number] HENRIKRYAN Cason 2023 15 [place] [...] Y SUBCUT ANEOUS DISCONT INUED (EDIT) 01/10/2025 [id number] HENRIKRYAN Cason 2023 10 [place] ([facility]) INSULIN,ASP ART,HUMAN [...] Y SUBCUT ANEOUS DISCONT INUED (EDIT) 11/08/2024 [id number] HENRIKRYAN Cason 2023 10 [place] ([facility]) LEVOTHYROXI NE [...] TABLET UNDER THE TONGUE PRN SUBLIN GUAL ACTIVE RYAN [place]STER 2020 [place] [...] BY MOUTH DAILY ORAL ACTIVE FELICITY [place] BOB P 2022 [place] ([facility]) TRIAMCINOLO NE ACETONIDE 0.1% OINT,TOP APPLY SMALL AMOUNT TOPICALL Y THREE TIMES A DAY NEEDED TOPICA L RYAN GLASS 2020 [place] ([facility]) Immunizations Combined list of available immunizations from the Department of Defense and Veterans Affairs facilities. Immunization Series Date Given Administered By Site Reaction Lot Number CVX Code Drug Appliquer Status Comments Source COVID-19 (Acousticeye), MRNA, LNP-S, PF, NAVYA-SUCROSE, 30 MCG/0.3 ML (AGES 12+ YEARS) 2023 309 complet ed [facility] INFLUENZA, ADJUVANTED, TRIVALENT, PF 2023 168 complet ed [facility] COVID-19 (PFIZER), MRNA, LNP-S, PF, NAVYA-SUCROSE, 30 MCG/0.3 ML (AGES 12+ YEARS) 2022 309 complet ed [facility] INFLUENZA, ADJUVANTED, QUADRIVALENT, PF 2022 205 complet ed [facility] RSV, BIVALENT, PROTEIN SUBUNIT RSVPREF, DILUENT RECONSTITUTED , 0.5 ML, PF 2022 305 complet ed [facility] INFLUENZA, HIGH-DOSE, QUADRIVALENT 1 2021 197 complet ed [facility] COVID-19 (MODERNA), MRNA, LNP-S, BIVALENT, PF, 50 MCG/0.5 ML OR 25MCG/0.25 ML DOSE 1 2021 229 complet ed [facility] COVID-19 (MODERNA), MRNA, LNP-S, PF, 100 MCG/0.5ML DOSE OR 50 MCG/0.25ML DOSE 2020 207 complet ed [facility] COVID-19 (PFIZER), MRNA, LNP-S, PF, 30 MCG/0.3 ML DOSE 3 2020 208 complet ed [facility] INFLUENZA, HIGH-DOSE, QUADRIVALENT, PF 2020 197 complet ed [facility] INFLUENZA, UNSPECIFIED FORMULATION 2020 88 complet ed [facility] TDAP 2020 115 complet ed [employer], [id number] , exp-2022 and given VIS dated 12/17/2020 [place] ([facility]) ZOSTER RECOMBINANT 2 2020 187 complet ed [place] ([facility]) ZOSTER RECOMBINANT 1 2020 187 complet ed [place] ([facility]) COVID-19 (PFIZER), MRNA, LNP-S, PF, 30 MCG/0.3 ML DOSE 2 2020 208 complet ed [facility] COVID-19 (PFIZER), MRNA, LNP-S, PF, 30 MCG/0.3 ML DOSE 1 2020 208 complet ed [facility] INFLUENZA, ADJUVANTED, TRIVALENT, PF 2019 168 complet ed [facility] INFLUENZA, UNSPECIFIED FORMULATION 2019 88 complet ed [facility] INFLUENZA, HIGH-DOSE, TRIVALENT, PF 2018 135 complet ed [facility] INFLUENZA, ADJUVANTED, TRIVALENT, PF 2017 168 complet ed [facility] INFLUENZA, UNSPECIFIED FORMULATION 2016 88 complet ed [facility] INFLUENZA, HIGH-DOSE, TRIVALENT, PF 2014 135 complet ed [facility] PNEUMOCOCCAL CONJUGATE PCV 13 2014 133 complet ed [facility] INFLUENZA, SPLIT VIRUS, TRIVALENT, PRESERVATIVE 2012 141 complet ed [facility] INFLUENZA, SPLIT VIRUS, TRIVALENT, PRESERVATIVE 2011 141 complet ed [facility] INFLUENZA, SPLIT VIRUS, TRIVALENT, PF 2010 140 complet ed [facility] PNEUMOCOCCAL POLYSACCHARID E PPV23 2010 33 complet ed [facility] INFLUENZA, SPLIT VIRUS, TRIVALENT, PRESERVATIVE 2009 141 complet ed [facility] INFLUENZA, SPLIT VIRUS, TRIVALENT, PF 2008 140 complet ed [facility] INFLUENZA, SPLIT VIRUS, TRIVALENT, PRESERVATIVE 2007 141 complet ed [facility] INFLUENZA, SPLIT VIRUS, TRIVALENT, PRESERVATIVE 2006 141 complet ed [facility] INFLUENZA, SPLIT VIRUS, TRIVALENT, PRESERVATIVE 2005 141 complet ed [facility] PNEUMOCOCCAL POLYSACCHARID E PPV23 2005 33 complet ed [facility] TD (ADULT), 5 LF TETANUS TOXOID, PRESERVATIVE FREE, ADSORBED 2005 113 complet ed [facility] INFLUENZA, SPLIT VIRUS, TRIVALENT, PRESERVATIVE 2004 141 complet ed [facility] INFLUENZA, SPLIT VIRUS, TRIVALENT, PRESERVATIVE 2003 141 complet ed [facility] INFLUENZA, SPLIT VIRUS, TRIVALENT, PRESERVATIVE 2002 141 complet [facility] Results Combined list of recent chemistry, hematology [...] Jan 23, 2023 02:00 PM Reporting Lab: [facility] [address] Performing Lab: [facility] [address] [place] ([facility]) BASIC METABOLIC PANEL+MG UREA NITROGEN [MASS/VOLUM E] IN SERUM OR PLASMA 35 mg/dL 8 - 26 01/23 H Specimen Type: PLASMA No comment entered. Ordering Provider: AILIN CHESTER Report Released Date/Time: Jan 23, 2023 02:00 PM Reporting Lab: [place] [address] Performing Lab: [facility] [address] [place] ([facility]) BASIC METABOLIC PANEL+MG GLUCOSE [MASS/VOLUM E] IN SERUM OR PLASMA 239 mg/dL 70 - 100 01/23 H Specimen Type: PLASMA No comment entered. Ordering Provider: AILIN CHESTER Report Released Date/Time: Jan 23, 2023 02:00 PM Reporting Lab: [facility] [address] Performing Lab: [facility] [address] [place] ([facility]) BASIC METABOLIC PANEL+MG SODIUM [MOLES/VOLU ME] IN SERUM OR PLASMA 140 mmol/L 136 - 145 01/23 Specimen Type: PLASMA No comment entered. Ordering Provider: AILIN CHESTER Report Released Date/Time: Jan 23, 2023 02:00 PM Reporting Lab: [facility] [address] Performing Lab: [facility] [address] [place] ([facility]) BASIC METABOLIC PANEL+MG POTASSIUM [MOLES/VOLU ME] IN SERUM OR PLASMA 5.1 mmol/L 3.5 - 5.1 01/23 Specimen Type: PLASMA No comment entered. Ordering Provider: AILIN CHESTER Report Released Date/Time: Jan 23, 2023 02:00 PM Reporting Lab: [facility] [address] Performing Lab: [facility] [address] [place] ([facility]) BASIC METABOLIC PANEL+MG CHLORIDE [MOLES/VOLU ME] IN SERUM OR PLASMA 109 mmol/L 98 - 107 01/23 H Specimen Type: PLASMA No comment entered. Ordering Provider: AILIN CHESTER Report Released Date/Time: Jan 23, 2023 02:00 PM Reporting Lab: [place] [id number] Performing Lab: [address] ([facility]) BASIC METABOLIC PANEL+MG CARBON DIOXIDE, TOTAL [MOLES/VOLU ME] IN SERUM OR PLASMA 21 mmol/L 22 - 29 01/23 L Specimen Type: PLASMA No comment entered. Ordering Provider: AILIN CHESTER Report Released Date/Time: Jan 23, 2023 02:00 PM Reporting Lab: [place] [id number] Performing Lab: [address] ([facility]) BASIC METABOLIC PANEL+MG CALCIUM [MASS/VOLUM E] IN SERUM OR PLASMA 9.4 mg/dL 8.4 - 10.2 01/23 Specimen Type: PLASMA No comment entered. Ordering Provider: AILIN CHESTER Report Released Date/Time: Jan 23, 2023 02:00 PM Reporting Lab: [place] [phone] Performing Lab: [place] [address] [place] ([facility]) BASIC METABOLIC PANEL+MG MAGNESIUM [MASS/VOLUM E] IN SERUM OR PLASMA 1.7 mg/dL 1.6 - 2.6 01/23 Specimen Type: PLASMA No comment entered. Ordering Provider: AILIN CHESTER Report Released Date/Time: Jan 23, 2023 02:00 PM Reporting Lab: [place] [address] Performing Lab: [address] ([facility]) BASIC METABOLIC PANEL+MG ANION GAP IN SERUM OR PLASMA 10 mmol/L 5 - 15 01/23 Specimen Type: PLASMA No comment entered. Ordering Provider: AILIN CHESTER Report Released Date/Time: Jan 23, 2023 02:00 PM Reporting Lab: [address] Performing Lab: [facility] [address] [place] ([facility]) BASIC METABOLIC PANEL+MG GLOMERULAR FILTRATION RATE/1.73 SQ M.PREDICTED [VOLUME RATE/AREA] IN SERUM, PLASMA OR BLOOD BY CREATININE- BASED FORMULA (CKD-EPI 2020) 61 60 01/23 Specimen Type: PLASMA No comment entered. Ordering Provider: AILIN CHESTER Report Released Date/Time: Jan 23, 2023 02:00 PM Reporting Lab: [place] [phone] Performing Lab: [place] [phone] [place] ([facility]) BNP NATRIURETIC PEPTIDE B [MASS/VOLUM E] IN SERUM OR PLASMA 1549 pg/mL <99 - 99 01/23 H Specimen Type: PLASMA No comment entered. Ordering Provider: AILIN CHESTER Report Released Date/Time: Jan 23, 2023 02:00 PM Reporting Lab: [place] [phone] Performing Lab: [place] [phone] [place] ([facility]) MICROALBU MIN/CREAT ININE RATIO URINE CREATININE [MASS/VOLUM E] IN URINE 132.8 mg/dL 58.0 - 161.0 11/23 Specimen Type: URINE No comment entered. Ordering Provider: AILIN CHESTER Report Released Date/Time: Nov 23, 2022 11:58 AM Reporting Lab: [facility] [address] Performing Lab: [place] [phone] [place] ([facility]) MICROALBU MIN/CREAT ININE RATIO URINE MICROALBUMI N/CREATININ E [MASS RATIO] IN URINE 28.0 mg/g{c reat} 11/23 Specimen Type: URINE No comment entered. Ordering Provider: AILIN CHESTER Report Released Date/Time: Nov 23, 2022 11:58 AM Reporting Lab: [place] [phone] Performing Lab: [facility] [address] [place] ([facility]) MICROALBU MIN/CREAT ININE RATIO URINE MICROALBUMI N [MASS/VOLUM E] IN URINE 37.2 mg/L 11/23 H Specimen Type: URINE No comment entered. Ordering Provider: AILIN CHESTER Report Released Date/Time: Nov 23, 2022 11:58 AM Reporting Lab: [facility] [address] Performing Lab: [facility] [address] [place] ([facility]) CBC LEUKOCYTES [#/VOLUME] IN BLOOD BY AUTOMATED COUNT 10.80 10*3/u L 4.0 - 11.0 11/23 Specimen Type: BLOOD No comment entered. Ordering Provider: AILIN CHESTER Report Released Date/Time: Nov 23, 2022 11:58 AM Reporting Lab: [facility] [address] Performing Lab: [address] [place] ([facility]) CBC ERYTHROCYTE S [#/VOLUME] IN BLOOD BY AUTOMATED COUNT 3.87 10*6/u L 4.6 - 6.2 11/23 L Specimen Type: BLOOD No comment entered. Ordering Provider: AILIN CHESTER Report Released Date/Time: Nov 23, 2022 11:58 AM Reporting Lab: [facility] [address] Performing Lab: [facility] [address] [place] ([facility]) CBC HEMOGLOBIN [MASS/VOLUM E] IN BLOOD 12.1 g/dL 13.5 - 17.9 11/23 L Specimen Type: BLOOD No comment entered. Ordering Provider: AILIN CHESTER Report Released Date/Time: Nov 23, 2022 11:58 AM Reporting Lab: [facility] [address] Performing Lab: [facility] [address] [place] ([facility]) CBC HEMATOCRIT [VOLUME FRACTION] OF BLOOD BY AUTOMATED COUNT 37.5 41 - 54 11/23 L Specimen Type: BLOOD No comment entered. Ordering Provider: AILIN CHESTER Report Released Date/Time: Nov 23, 2022 11:58 AM Reporting Lab: [facility] [address] Performing Lab: [facility] [address] [place] ([facility]) CBC MCV [ENTITIC VOLUME] BY AUTOMATED COUNT 96.9 fL 80 - 100 11/23 Specimen Type: BLOOD No comment entered. Ordering Provider: AILIN CHESTER Report Released Date/Time: Nov 23, 2022 11:58 AM Reporting Lab: [facility] [address] Performing Lab: [facility] [address] [place] ([facility]) CBC MCH [ENTITIC MASS] BY AUTOMATED COUNT 31.3 pg 27 - 33 11/23 Specimen Type: BLOOD No comment entered. Ordering Provider: AILIN CHESTER Report Released Date/Time: Nov 23, 2022 11:58 AM Reporting Lab: [facility] [address] Performing Lab: [facility] [address] [place] ([facility]) CBC MCHC [MASS/VOLUM E] BY AUTOMATED COUNT 32.3 g/dL 32.0 - 37.5 11/23 Specimen Type: BLOOD No comment entered. Ordering Provider: AILIN CHESTER Report Released Date/Time: Nov 23, 2022 11:58 AM Reporting Lab: [facility] [address] Performing Lab: [facility] [address] [place] ([facility]) CBC PLATELETS [#/VOLUME] IN BLOOD BY AUTOMATED COUNT 293 10*3/u L 150 - 400 11/23 Specimen Type: BLOOD No comment entered. Ordering Provider: AILIN CHESTER Report Released Date/Time: Nov 23, 2022 11:58 AM Reporting Lab: [facility] [address] Performing Lab: [facility] [address] [place] ([facility]) CBC PLATELET MEAN VOLUME [ENTITIC VOLUME] IN BLOOD BY AUTOMATED COUNT 10.3 fL 7.4 - 10.4 11/23 Specimen Type: BLOOD No comment entered. Ordering Provider: AILIN CHESTER Report Released Date/Time: Nov 23, 2022 11:58 AM Reporting Lab: [facility] [address] Performing Lab: [facility] [address] [place] ([facility]) CBC ERYTHROCYTE DISTRIBUTIO N WIDTH [RATIO] BY AUTOMATED COUNT 13.2 11.5 - 14.5 11/23 Specimen Type: BLOOD No comment entered. Ordering Provider: AILIN CHESTER Report Released Date/Time: Nov 23, 2022 11:58 AM Reporting Lab: [facility] [address] Performing Lab: [facility] [address] [place] ([facility]) COMPREHEN SIVE METABOLIC PANEL+MG CREATININE [MASS/VOLUM E] IN SERUM OR PLASMA 1.2 mg/dL 0.7 - 1.2 11/23 Specimen Type: PLASMA No comment entered. Ordering Provider: AILIN CHESTER Report Released Date/Time: Nov 23, 2022 11:58 AM Reporting Lab: [facility] [address] Performing Lab: [place] [phone] [place] ([facility]) COMPREHEN SIVE METABOLIC PANEL+MG UREA NITROGEN [MASS/VOLUM E] IN SERUM OR PLASMA 34 mg/dL 8 - 26 11/23 H Specimen Type: PLASMA No comment entered. Ordering Provider: AILIN CHESTER Report Released Date/Time: Nov 23, 2022 11:58 AM Reporting Lab: [facility] [address] Performing Lab: [facility] [address] [place] ([facility]) COMPREHEN SIVE METABOLIC PANEL+MG GLUCOSE [MASS/VOLUM E] IN SERUM OR PLASMA 54 mg/dL 70 - 100 11/23 L Specimen Type: PLASMA No comment entered. Ordering Provider: AILIN CHESTER Report Released Date/Time: Nov 23, 2022 11:58 AM Reporting Lab: [facility] [address] Performing Lab: [facility] [address] [place] ([facility]) COMPREHEN SIVE METABOLIC PANEL+MG SODIUM [MOLES/VOLU ME] IN SERUM OR PLASMA 143 mmol/L 136 - 145 11/23 Specimen Type: PLASMA No comment entered. Ordering Provider: AILIN CHESTER Report Released Date/Time: Nov 23, 2022 11:58 AM Reporting Lab: [facility] [address] Performing Lab: [facility] [phone] [place] [address] ([facility]) COMPREHEN SIVE METABOLIC PANEL+MG POTASSIUM [MOLES/VOLU ME] IN SERUM OR PLASMA 4.4 mmol/L 3.5 - 5.1 11/23 Specimen Type: PLASMA No comment entered. Ordering Provider: AILIN CHESTER Report Released Date/Time: Nov 23, 2022 11:58 AM Reporting Lab: [address] Performing Lab: [address] [place] [address] ([facility]) COMPREHEN SIVE METABOLIC PANEL+MG CHLORIDE [MOLES/VOLU ME] IN SERUM OR PLASMA 107 mmol/L 98 - 107 11/23 Specimen Type: PLASMA No comment entered. Ordering Provider: AILIN CHESTER Report Released Date/Time: Nov 23, 2022 11:58 AM Reporting Lab: [place] [phone] Performing Lab: [address] ([facility]) COMPREHEN SIVE METABOLIC PANEL+MG CARBON DIOXIDE, TOTAL [MOLES/VOLU ME] IN SERUM OR PLASMA 23 mmol/L 22 - 29 11/23 Specimen Type: PLASMA No comment entered. Ordering Provider: AILIN CHESTER Report Released Date/Time: Nov 23, 2022 11:58 AM Reporting Lab: [address] Performing Lab: [address] ([facility]) COMPREHEN SIVE METABOLIC PANEL+MG CALCIUM [MASS/VOLUM E] IN SERUM OR PLASMA 9.7 mg/dL 8.4 - 10.2 11/23 Specimen Type: PLASMA No comment entered. Ordering Provider: AILIN CHESTER Report Released Date/Time: Nov 23, 2022 11:58 AM Reporting Lab: [place] [phone] Performing Lab: [address] [place] ([facility]) COMPREHEN SIVE METABOLIC PANEL+MG PROTEIN [MASS/VOLUM E] IN SERUM OR PLASMA 7.2 g/dL 6.0 - 8.3 11/23 Specimen Type: PLASMA No comment entered. Ordering Provider: AILIN CHESTER Report Released Date/Time: Nov 23, 2022 11:58 AM Reporting Lab: [facility] [address] Performing Lab: [facility] [address] [place] ([facility]) COMPREHEN SIVE METABOLIC PANEL+MG ALBUMIN [MASS/VOLUM E] IN SERUM OR PLASMA 4.1 g/dL 3.5 - 5.2 11/23 Specimen Type: PLASMA No comment entered. Ordering Provider: AILIN CHESTER Report Released Date/Time: Nov 23, 2022 11:58 AM Reporting Lab: [place] [phone] Performing Lab: [facility] [address] [place] ([facility]) COMPREHEN SIVE METABOLIC PANEL+MG BILIRUBIN.T OTAL [MASS/VOLUM E] IN SERUM OR PLASMA 0.5 mg/dL 0.2 - 1.2 11/23 Specimen Type: PLASMA No comment entered. Ordering Provider: AILIN CHESTER Report Released Date/Time: Nov 23, 2022 11:58 AM Reporting Lab: [facility] [address] Performing Lab: [facility] [address] [place] ([facility]) COMPREHEN SIVE METABOLIC PANEL+MG MAGNESIUM [MASS/VOLUM E] IN SERUM OR PLASMA 1.4 mg/dL 1.6 - 2.6 11/23 L Specimen Type: PLASMA No comment entered. Ordering Provider: AILIN CHESTER Report Released Date/Time: Nov 23, 2022 11:58 AM Reporting Lab: [facility] [address] Performing Lab: [facility] [address] [place] ([facility]) COMPREHEN SIVE METABOLIC PANEL+MG ANION GAP IN SERUM OR PLASMA 13 mmol/L 5 - 15 11/23 Specimen Type: PLASMA No comment entered. Ordering Provider: AILIN CHESTER Report Released Date/Time: Nov 23, 2022 11:58 AM Reporting Lab: [facility] [address] Performing Lab: [facility] [address] [place] ([facility]) COMPREHEN SIVE METABOLIC PANEL+MG ALKALINE PHOSPHATASE [ENZYMATIC ACTIVITY/VO LUME] IN SERUM OR PLASMA 87 U/L 40 - 150 11/23 Specimen Type: PLASMA No comment entered. Ordering Provider: AILIN CHESTER Report Released Date/Time: Nov 23, 2022 11:58 AM Reporting Lab: [facility] [address] Performing Lab: [facility] [address] [place] ([facility]) COMPREHEN SIVE METABOLIC PANEL+MG ALANINE AMINOTRANSF ERASE [ENZYMATIC ACTIVITY/VO LUME] IN SERUM OR PLASMA 28 U/L 11/23 Specimen Type: PLASMA No comment entered. Ordering Provider: AILIN CHESTER Report Released Date/Time: Nov 23, 2022 11:58 AM Reporting Lab: [facility] [address] Performing Lab: [facility] [address] [place] ([facility]) COMPREHEN SIVE METABOLIC PANEL+MG ASPARTATE AMINOTRANSF ERASE [ENZYMATIC ACTIVITY/VO LUME] IN SERUM OR PLASMA 33 U/L 11/23 Specimen Type: PLASMA No comment entered. Ordering Provider: AILIN CHESTER Report Released Date/Time: Nov 23, 2022 11:58 AM Reporting Lab: [facility] [address] Performing Lab: [facility] [address] [place] ([facility]) COMPREHEN SIVE METABOLIC PANEL+MG GLOMERULAR FILTRATION RATE/1.73 SQ M.PREDICTED [VOLUME RATE/AREA] IN SERUM, PLASMA OR BLOOD BY CREATININE- BASED FORMULA (CKD-EPI 2020) 61 11/23 Specimen Type: PLASMA No comment entered. Ordering Provider: AILIN CHESTER Report Released Date/Time: Nov 23, 2022 11:58 AM Reporting Lab: [facility] [address] Performing Lab: [facility] [address] [place] ([facility]) HEMOGLOBI N A1C HEMOGLOBIN A1C/HEMOGLO BIN.TOTAL IN BLOOD 7.4 4.0 - 6.0 11/23 H Specimen Type: BLOOD Comment: Values obtained from A1C measurement s can vary. For typical A1C assays, a reported value of 7.0 could actually be between 6.7 and 7.3 if measured by a reference method. A reported value of 9.0 could actually be between 8.7 and 9.3. Ref: [email or web address] Ordering Provider: AILIN CHESTER Report Released Date/Time: Nov 23, 2022 11:58 AM Reporting Lab: [facility] [address] Performing Lab: [facility] [address] [facility] [place] ([facility]) LIPID PANEL,NON -FASTING CHOLESTEROL [MASS/VOLUM E] IN SERUM OR PLASMA 130 mg/dL 11/23 Specimen Type: PLASMA No comment entered. Ordering Provider: AILIN CHESTER Report Released Date/Time: Nov 23, 2022 11:58 AM Reporting Lab: [facility] [id number] Performing Lab: [facility] [address] [facility] [place] ([facility]) LIPID PANEL,NON -FASTING CHOLESTEROL IN HDL [MASS/VOLUM E] IN SERUM OR PLASMA 39 mg/dL 11/23 L Specimen Type: PLASMA No comment entered. Ordering Provider: AILIN CHESTER Report Released Date/Time: Nov 23, 2022 11:58 AM Reporting Lab: [facility] [address] Performing Lab: [facility] [address] [place] ([facility]) LIPID PANEL,NON -FASTING CHOLESTEROL IN LDL [MASS/VOLUM E] IN SERUM OR PLASMA BY CALCULATION 73 mg/dL 11/23 Specimen Type: PLASMA No comment entered. Ordering Provider: AILIN CHESTER Report Released Date/Time: Nov 23, 2022 11:58 AM Reporting Lab: [facility] [address] Performing Lab: [facility] [address] [place] ([facility]) LIPID PANEL,NON -FASTING CHOLESTEROL IN VLDL [MASS/VOLUM E] IN SERUM OR PLASMA BY CALCULATION 18 mg/dL 11/23 Specimen Type: PLASMA No comment entered. Ordering Provider: AILIN CHESTER Report Released Date/Time: Nov 23, 2022 11:58 AM Reporting Lab: [facility] [address] Performing Lab: [facility] [address] [place] ([facility]) LIPID PANEL,NON -FASTING CHOLESTEROL NON HDL [MASS/VOLUM E] IN SERUM OR PLASMA 91 mg/dL 11/23 Specimen Type: PLASMA No comment entered. Ordering Provider: AILIN CHESTER Report Released Date/Time: Nov 23, 2022 11:58 AM Reporting Lab: [facility] [address] Performing Lab: [facility] [address] [place] ([facility]) LIPID PANEL,NON -FASTING TRIGLYCERID E [MASS/VOLUM E] IN SERUM OR PLASMA 92 mg/dL 11/23 Specimen Type: PLASMA No comment entered. Ordering Provider: AILIN CHESTER Report Released Date/Time: Nov 23, 2022 11:58 AM Reporting Lab: [facility] [address] Performing Lab: [facility] [address] [place] ([facility]) TSH W/REFLEX TO FREE T4 THYROTROPIN [UNITS/VOLU ME] IN SERUM OR PLASMA 4.59 u[IU]/ mL 0.35 - 4.94 11/23 Specimen Type: PLASMA No comment entered. Ordering Provider: AILIN CHESTER Report Released Date/Time: Nov 23, 2022 11:58 AM Reporting Lab: [facility] [address] Performing Lab: [facility] [address] [place] ([facility]) Vital Signs Combined list of inpatient and [...] list of: 1) Encounters from Department of [facility] Affairs facilities going back up to thelast 18 months. 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 Location Location Details Encounter Type Encounter Number Reason For Visit Attending Provider ADM Date DC Date Status Disposition Source [facility] Outpatient Encounter [id number] 0[facility].38731 513 11/11 [facility] Outpatient Encounter [id number] ZARI POWER 11/16 [facility] Outpatient Encounter [id number] 11/21 [facility] ([facility] OFFICE O/P EST MOD 30-39 MIN [id number] Diagnos is: ICD-10- CM Z00.00 Encntr for general adult medical exam w/o abnorma l finding s
CANDELARIO CHESTER 11/23 [place] [facility] ([facility]) GAIT TRAINING THERAPY [id number] Diagnos is: ICD-10- CM R26.89 Other abnorma lities of gait and mobilit y
TRINOOMAYRA MCDERMOTT V 11/23 [place] ([facility]) [place] [facility] Outpatient Encounter [id number] SA TRINO RA R 12/11 [place] [facility] [place] [facility] Outpatient Encounter [id number] 12/25 [place] [facility] [place] [facility] Outpatient Encounter [id number] SA TRINO RA R 12/28 [place] [facility] [place] [facility] Outpatient Encounter [id number] 01/05 [place] [facility] [place] [facility] Outpatient Encounter [id number] 01/11 [place] [facility] [place] [facility] Outpatient Encounter [id number] 01/16 [place] [facility] ([facility]) OFFICE O/P EST HI 40-54 MIN [id number] Diagnos is: ICD-10- CM I50.9 Heart failure , unspeci fied
CANDELARIO CHESTER 01/23 [place] ([facility] [place] [facility] Outpatient Encounter [id number] Marcus POTTS I 01/24 [place] [facility] [place] [facility] Outpatient Encounter [id number] Danica TORRE 02/05 [place] [facility] [place] [facility] Outpatient Encounter [id number] 02/09 [place] [facility] [place] [facility] Outpatient Encounter [id number] Danica TORRE 02/09 [place] [facility] [place] [facility] Outpatient Encounter [id number] 02/14 [place] [facility] [place] [facility] Outpatient Encounter [id number] 02/15 [place] [facility] [place] [facility] Outpatient Encounter [id number] 02/[address] [place] [address] [place] [facility] Outpatient Encounter [id number] 02/[address] [place] [address] [place] [facility] Outpatient Encounter [id number] 02/[address] [place] [address] [address] [facility] [place] [facility] Outpatient Encounter [id number] 02/20 [place] [facility] [place] [facility] Outpatient Encounter [id number] 02/20 [place] [facility] [place] [facility] Outpatient Encounter [id number] 02/21 [place] [facility] [place] [facility] QNHP OL DIG ASSMT&MGMT 5-10 [id number] Diagnos is: ICD-10- CM E11.9 Type 2 diabete s mellitu s without complic ations< br/> HARDER,SIVA LY 02/22 [place] [facility] [place] ([facility]) PRO PHONE CALL 11-20 MIN [id number] Diagnos is: ICD-10- CM I50.9 Heart failure , unspeci fied
JERMAINE ALCANTAR ANDMARIA INES M 02/23 [place] ([facility] [place] [facility] Outpatient Encounter [id number] 02/26 [place] [facility] [place] [facility] Outpatient [facility]counter [id number] 03/01 [place] [facility] [place] [facility] Outpatient Encounter [id number] 03/05 [place] [facility] [place] [facility] Outpatient Encounter [id number] SA RA Sandra JAMESON 03/09 [place] [facility] [place] [facility] Outpatient Encounter [id number] 03/14 [place] [facility] [place] [facility] Outpatient Encounter [id number] TRINO R 04/12 [facility] [place] [facility] Outpatient Encounter [id number] [facility] 04/16 [facility] [place] [facility] Outpatient Encounter [id number] [facility] 05/01 [facility] [place] [facility] Outpatient Encounter [id number] 07/11 [facility] [place] [facility] Outpatient Encounter [id number] [facility] [place] [facility] Outpatient Encounter [id number] 07/12 [facility] PRO PHONE CALL 5-10 MIN [id number] Diagnos is: ICD-10- CM 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
VIV BARFIELD 07/19 [facility] HEARING AID REPAIR/MOD IFYING [id number] Diagnos is: ICD-10- CM 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
CARY CORCORAN 08/09 [facility] HEARING AID FITTING/CH ECKING [id number] Diagnos is: ICD-10- CM 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
Sy MAKI 09/17 [facility] [place] [facility] Outpatient Encounter [id number] 10/17 [facility] ([facility]) OFFICE O/P EST HI 40 MIN [id number] Diagnos is: ICD-10- CM E11.9 Type 2 diabete s mellitu s without complic ations< br/> CANDELARIO CHESTER 11/07 [place] ([facility]) [place] ([facility]) PT EVAL MOD COMPLEX 30 MIN [id number] Diagnos is: ICD-10- CM Z74.09 Other reduced mobilit y
OMAYRA JAMESON NTER V 12/17 [place] ([facility]) [facility] Outpatient Encounter [id number] 01/03 [facility] [place] [facility] Outpatient Encounter [id number] 01/09 [facility] WHEELCHAIR MNGMENT TRAINING [id number] Diagnos is: ICD-10- CM R53.1 Weaknes s
ANDERS EATON R 01/29 [facility] Outpatient Encounter [id number] 01/30 [facility] HEARING AID CHECK BOTH EARS [id number] Diagnos is: ICD-10- CM Z46.1 Encount er for fitting and adjustm ent of hearing aid<br/ > SUZY BLACK AEL F 02/01 [facility] Outpatient Encounter [id number] SA TRINO RA R 02/11 [facility] [place] [facility] Outpatient Encounter [id number] 02/25 [facility] [place] [facility] Outpatient Encounter [id number] JYOTSNA SMART 03/10 [facility] ([facility]) OFFICE O/P EST MOD 30 MIN [id number] Diagnos is: ICD-10- CM L89.623 Pressur e ulcer of left heel, stage 3
CANDELARIO CHESTER 03/11 [place] ([facility]) 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
CIARA BALDERRAMA J 03/20 [facility] HEARING AID REPAIR/MOD IFYING [id number] Diagnos is: ICD-10- CM 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
KEIRA JEAN 04/01 [facility] Social History Combined list of available smoking, tobacco, and other social history from Department of Defense and Veterans Affairs facilities. Social History Type Response Date Comment Sourc e Tobacco smoking status [facility] VA-TOBACCO FORMER USER 11/08/2023 [place] ([facility]) History of tobacco use CT-TOBACCO QUIT 1 5 YRS OR MORE 11/08/2023 [place] ([facility]) History of tobacco use VA-TOBACCO FORMER USER 11/23/2022 [place] ([facility]) History of tobacco use VA-TOBACCO FORMER USER 11/29/[address] [place] [address] ([facility]) History of tobacco use CT-TOBACCO FORMER USER 10/21/2020 [place] ([facility]) Plan of Care List of future care activities from Department of Veterans Affairs facilities. Additional future care activities may be listed in the Assessment and Plan section. Date/Time Care Activity Care Activity Detail Facili ty 04/07/2024 AMBULATORY - REHAB MEDICINE AMBULATORY - REHAB MEDICINE [facility]
--- OUTSIDE RECORDS SUMMARY | 2024-04-03 10:21 | XMS_ITS | Encounter Summary ---
Author Name [facility] [place] [facility] [place] Address [address] [place] [address] Care Team Providers Care Aircraft Part Assembler Name Role Phone JIMENEZ CHESTER Primary Care [...] Cherry's Name Patient's Relationship to Policy Cherry [facility] (WNR) MEDICARE ADVANTAGE [facility] (WNR) May 14, 2020 [id number] [phone] PITER CASAS ERD PATIENT Selected Encounter This [...] activities for the patient from all [place] [facility]. This section includes future appointments and [...] 2024 10:00 AM AMBULATORY - REHAB [facility]ICIN [facility] Feb 02, 2024 10:15 AM AMBULATORY - SURGERY [facility] Feb 12, 2024 02:00 PM AMBULATORY - NONE [facility] Mar 11, 2024 11:30 AM AMBULATORY - MEDICINE [facility] ([facility]) Mar 18, 2024 07:01 AM AMBULATORY - NONE [facility] Mar 20, 2024 09:00 [facility] Mar 20, 2024 02:30 PM AMBULATORY - SURGERY [facility] Apr 07, 2024 10:30 AM AMBULATORY - RE[facility]AB [facility] Social History: Smoking Status (Most current) and Tobacco Use (All prior to encounter date) This section includes the most current, and the historical, smoking and tobacco- related health factors from the [place] facility where the Encounter took place. Current Smoking Status This section includes the most current smoking, or tobacco-related health factor, from the [place] facility where the Encounter took place. Date/Time Current Smoking Status Comment Federico itcris Nov 08, 2023 10:00 AM VA-TOBACCO FORMER USER [place] ([facility]) Tobacco Use History This section includes a history of the smoking, or tobacco-related health factors, that were collected on or before the date of the Encounter. The data comes from the [place] facility where the Encounter took place. Date/Time Smoking Status/Tobacco Use Comment F acility Nov 08, 2023 10:00 AM VA-TOBACCO QUIT 15 YRS OR MORE [facility] ([facility]) Nov 23, 2022 11:00 AM VA-TOBACCO FORMER USER [place] ([facility]) Nov 23, 2022 11:00 AM VA-TOBACCO QUIT 15 YRS OR MORE [place] ([facility]) Nov 29, 2021 10:00 AM VA-TOBACCO FORMER USER [place] ([facility]) Nov 29, 2021 10:00 AM VA-TOBACCO QUIT 15 YRS OR MORE [place] ([facility]) Oct 21, 2020 10:30 AM VA-TOBACCO FORMER USER [place] ([facility]) Oct 21, 2020 10:30 AM VA-TOBACCO QUIT 15 YRS OR MORE [place] ([facility]) Encounter Notes: All associated encounter notes This section contains the clinical notes associated to the Encounter. Date/Time Encounter Note(s) Provider Source Dec 18, 2023 10:50 AM PHYSICAL THERAPY C ONSULT: LOCAL TITLE: PHYSICAL THERAPY CONSULT STANDARD TITLE: PHYSICAL THERAPY CONSULT DATE OF NOTE: DEC 18, 2023@10:50 ENTRY DATE: DEC 18, 2023@10:50:21 AUTHOR: CINTHIA JAMESON COSIGNER: URGENCY: STATUS: COMPLETED PT tx: PT Eval Mod Comp 40' PT dx: Reduced Mobility SUBJECTIVE: Relevant PMH/personal factors impacting rehab: Active problems - Computerized Problem List is the source for the followin. CAD - Coronary Artery Disease ([facility] [id number]) 2. Diabetes Mellitus Type 2 ([facility] [id number]) 3. HTN - Hypertension ([facility] [id number]) 4. Peripheral neuropathy due to type 2 diabetes mellitus 5. Long-term current use of insulin 6. Hyperlipidemia ([facility] [id number]) 7. CHF - Congestive Heart Failure ([facility] [id number]) 8. Exposure to potentially hazardous substance ([facility] [id number]) - Entered through [facility] TAM Documentation Initiative 9. Hypothyroidism ([facility] [id number]) 10. History of amputation of right leg through tibia and fibula Weight/Height for DME purposes: 166.1 lb [75.34 kg] (11/08/2023 09:55) 69 in [175.3 cm] (11/08/2023 09:55) Chief Concern: Pt is a 83 year old [place] who presents to PT for functional mobility [...] CAD, CHF, quadruple bypass in 2001, multiple MA's, A- fib Home Environment: Type of home: [...] provided from Medicare and 4WW provided from [place] Pain: General aches and pains throughout the [...] PRESENTATION: evolving PLAN: Functional mobility assessment complete; proposal lead writer will place Rehab Outpatient Power Mobility Consult for further review. Patient Education on Treatment Plan: PT role, POC, rehab expectations. Patient indicated readiness to learn, verbalizes understanding, agreement and satisfaction with the treatment plan. Denies further questions. /riccardo/ CINTHIA JAMESON Physical Therapist Signed: 12/18/2023 12:53 CINTHIA JAMESON (CB)
--- OUTSIDE RECORDS SUMMARY | 2024-04-03 10:22 | XMS_ITS | Encounter Summary ---
Author Name [facility] [place] Address [address] [place] [address] Care Team Providers Care Tip Tester Name Role Phone JIMENEZ CHESTER Primary Care [...] Cherry's Name Patient's Relationship to Policy Cherry [facility] (WNR) MEDICARE ADVANTAGE [facility] (WNR) May 14, 2020 [id number] [phone] PITER CASAS ERD PATIENT Selected Encounter This section includes the information on record at [place] for the Encounter. Date/Time Encounter Type Encounter Description Reason Provider Source Mar 20, 2024 03:24 PM CASE MANAGEMENT PRIMARY CARE/MEDICINE ICD-10-CM Z65.8 Oth problems related to psychosocial circumstances CLAUDIA HORTON [facility] Encounter Template Text not used by [place] Assessments - Encounter Diagnoses This section includes the primary and secondary diagnoses documented for the Encounter. Date/Time Primary/Secondary Diagnosis Diagnosis Name Provider Source Apr 01, 2024 03:13 PM PRIMARY Oth problems related to psychosocial circumstances CLAUDIA HORTON [facility] Plan of Treatment: Future Appointments (+ 6 months) and Future Tests (+/- 45 days) The Plan of Treatment section includes future care activities for the patient from all [place] treatmentfacilities. This section includes future appointments and future orders which are active, pending or scheduled. Future Appointments This section includes appointments that were scheduled to occur 6 months from the date of the Encounter, up to a maximum of 20 appointments. The data comes from all [facility] facilities. Appointment Date/Time Appointment Type Appointme nt Facility Name Apr 07, 2024 10:30 AM AMBULATORY - REHAB [facility] Encounter Notes: All associated encounter [...] AUTHOR: CLAUDIA HORTON COSIGNER: URGENCY: STATUS: COMPLETED SOCIAL WORK TRIAGE ASSESSMENT Has ADDENDA 03/20/2024 voicemail Jung Amin [phone] Sent up from Benefits to ask about caregiver benefits. Wondering if she can get paid for caregiving. Goes to [place] but wants to meet with someone in-person [...] Caregivers (PCAFC)which requires to be 70% sc. [place] is applying for an increase in [place]. [...] that would be outside of her ability. SW provided and his with info sheets on: Program of General Caregiver Support Services (PGCSS) Program of Comprehensive Assistance for Family Caregivers (PCAFC) [place] Respite [facility] MAR/APR caregiver corner /riccardo/ CLAUDIA LEUNG, SUPERVISOR CHEMICAL Ethnology Teacher Signed: 03/20/2024 15:34 Receipt Acknowledged By: 03/28/2024 15:43 /riccardo/ XOCHITL Nayak, LATENT PRINT EXAMINER Primary Care Social Work 03/28/2024 ADDENDUM STATUS: COMPLETED The above note has been reviewed and approved as part of clinical supervision by this real estate underwriter. [place] was seen today for: Care planning, resources, case management Diagnosis: Z65.9 Problems related to unspecified Psychosocial Circumstances /riccardo/ XOCHITL Nayak, LATENT PRINT EXAMINER Primary Care Social Work Signed: 03/28/2024 15:44 CLAUDIA HORTON [facility]
--- OUTSIDE RECORDS SUMMARY | 2024-04-03 10:22 | XMS_ITS | Encounter Summary ---
Author Name [place] Address [address] [place] [address] Care Team Providers Care Court Officer Name Role Phone JIMENEZ CHESTER Primary Care [...] Cherry's Name Patient's Relationship to Policy Cherry [facility] (WNR) MEDICARE ADVANTAGE [facility] (WNR) May 14, 2020 [id number] [phone] PITER CASAS ERD PATIENT Selected Encounter This section includes the information on record at [place] for the Encounter. Date/Time Encounter Type Encounter Description Reason Provider Source Mar 11, 2024 11:30 AM OFFICE O/P EST MOD 30 MIN PRIMARY CARE/MEDICINE ICD-10-CM L89.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, stage 3 JIMENEZ CHESTER Emerald Encounter Template Text not used by [place] Assessments - Encounter Diagnoses This section includes the primary and secondary diagnoses documented for the Encounter. Date/Time Primary/Secondary Diagnosis Diagnosis Name Provider Source Mar 11, 2024 02:18 PM PRIMARY Pressure ulcer of left heel, stage 3 JIMENEZ CHESTER ([facility]) Mar 11, 2024 02:18 PM SECONDARY Type 2 diabetes mellitus without complications JIMENEZ CHESTER ([facility]) Plan of Treatment: Future Appointments (+ 6 months) and Future Tests (+/- 45 days) The Plan of Treatment section includes future care activities for the patient from all [place] [facility]. This section includes future appointments and future orders which are active, pending or scheduled. Future Appointments This section includes appointments that were scheduled to occur 6 months from the date of the Encounter, up to a maximum of 20 appointments. The data comes from all [facility]. Appointment Date/Time Appointment Type Appointme nt Facility Name Mar 18, 2024 07:01 AM AMBULATORY - NONE [facility] Mar 20, 2024 09:00 AM [facility] Mar 20, 2024 02:30 PM AMBULATORY - SURGERY [facility] Apr 07, 2024 10:30 AM AMBULATORY - REHAB [facility] Vital Signs: All taken on the encounter date This section contains inpatient and outpatient Vital Signs collected on the date of the Encounter. Date/Time Temperature Pulse Blood Pressure Respiratory Rate SP02 Pain Height Weight Body Mass Index Source Mar 11, 2024 11:40 AM 97.9 85 103/62 18 98 0 185.8 27 [facility] ([facility]) Social History: Smoking Status (Most current) [...] Federico armenta Nov 08, 2023 10:00 AM [place]-TOBACCO FORMER USER [facility] ([facility]) Tobacco Use History This section includes a history of the smoking, or tobacco-related health factors, that were collected on or before the date of the Encounter. The data comes from the [place] facility where the Encounter took place. Date/Time Smoking Status/Tobacco Use Comment F bo Nov 08, 2023 10:00 AM [place]-TOBACCO QUIT 15 YRS OR MORE [facility] ([facility]) Nov 23, 2022 11:00 AM [place]-TOBACCO FORMER USER [facility] ([facility]) Nov 23, 2022 11:00 AM [place]-TOBACCO QUIT 15 YRS OR MORE [facility] ([facility]) Nov 29, 2021 10:00 AM VA-TOBACCO FORMER USER [facility] ([facility]) Nov 29, 2021 10:00 AM VA-TOBACCO QUIT 15 YRS OR MORE [facility] ([facility]) Oct 21, 2020 10:30 AM VA-TOBACCO FORMER USER [facility] ([facility]) Oct 21, 2020 10:30 AM VA-TOBACCO QUIT 15 YRS OR MORE [facility] ([facility]) Encounter Notes: All associated encounter notes This section contains the clinical notes associated to the Encounter. Date/Time Encounter Note(s) Provider Source Mar 11, 2024 11:55 AM PRIMARY CARE NOTE: LOCAL TITLE: [facility] PROGRESS NOTE-[facility] STANDARD TITLE: PRIMARY CARE NOTE DATE OF NOTE: MAR 11, 2024@11:55 ENTRY DATE: MAR 11, 2024@08:56:48 AUTHOR: JIMENEZ CHESTER COSIGNER: URGENCY: STATUS: COMPLETED Type of Visit: Face to Face Reason for Visit: Pressure ulcer heel HPI: 83 year-old MALE here for concerns regarding a pressure ulcer. We received a phone call from clinical triage with the following concerns: PATIENT CONCERN/DURATION/ONSET: [place] spouse Shellie is calling to get Authorization for [facility] appt. Shellie reports that the had a non healing pressure ulcer on his left heel, which [facility] was managing. ''It closed. A week ago [...] fevers, nausea, chills, vomiting, and sweats. See [facility] script for symptom assessment, pertinent positives and negatives. WHAT HAS PATIENT TRIED TO TREAT THE SYMPTOMS: Dressing, padded bandaid and wound medication HISTORY/PREVIOUS TREATMENT: Pressure Ulcer, DMII, History of amputation of right leg through tibia and fibula WHAT IS PATIENT GOAL FOR THE CALL: Clinical eval, requesting for authorization of wound management to [facility] has had wound care photos completed already prior to provider presence. Noticed some redness with a white center that had surrounding redness. Over the course of 10 days this became an ulcer. They have received wound care services in the community and then had home care services for the regular wound care. Co-managed: [place] PCP Home medications: reviewed and updated Review [...] Rare 4. Illicit drugs: none 5. Employment: [employer] work 39 years 6. Service: [employer] Allergies: NKDA Physical Exam: Temp: 97.9 F [36.6 C] (03/11/2024 11:40) Pulse:85 (03/11/2024 11:40) BP: 103/62 (03/11/2024 11:40) Resp: 18 (03/11/2024 11:40) O2 Sat: 98% (03/11/2024 11:40) Weight: 185.8 lb [84.28 kg] (03/11/2024 11:40) BMI: 27.5 Pain: 0 (03/11/2024 11:40) General: AAOx3, NAD HEENT: AT/AK Skin: 1 cm x 1 cm stage [...] non-VA PCP - Patient will follow-up through [facility] with PCP CVF - Future Appointment: 03/20/2024 09:00 [facility] DRIVERS OT DION 1U 03/20/2024 14:30 [facility]SP AUD TECH 2S 04/07/2024 10:30 MSP ADV MBLTY OT TAD 11/07/2024 11:00 DANA PACT TWOLVES RTC as needed CPRS chart review/chart prep: [...] Allergy/ADR Data available for this patient [facility] No Known Allergies Active and Recently [...] MD PHYSICIAN Signed: 03/11/2024 14:18 JIMENEZ CHESTER ([facility]) Mar 11, 2024 11:41 AM PRIMARY CARE NOTE: LOCAL TITLE: [facility]: PRIMARY CARE NOTE DATE OF NOTE: MAR 11, 2024@11:41 ENTRY DATE: MAR 11, 2024@11:41:39 AUTHOR: ZARI ANTHONY EXP COSIGNER: URGENCY: STATUS: [...] Not worried about housing near future The [place] reports the following: Within the past 12 months, you worried whether your food would run out before you got money to buy more. Never true Within the past 12 months, the food you bought just didn't last and you didn't have money to get more. Never true Food Assistance Programs [facility] Food Assistance Programs [facility] Annual Screening: Whole Health Screen is due OR due soon (within 90 days). Whole Health Screening Why is addressing your overall health important to you? Longevity What do you want your health for (why do you want to be healthy)? Longevity, see tomorrow /riccardo/ ZARI ANTHONY LPN Signed: 03/11/2024 11:43 ZARI ANTHONY [facility] ([facility])
--- OUTSIDE RECORDS SUMMARY | 2024-04-03 10:22 | XMS_ITS | Encounter Summary ---
Author Name Department [place] Address [address] [place] [address] Care Team Providers Care Curling Machine Operator Name Role Phone JIMENEZ CHESTER [...] Cherry's Name Patient's Relationship to Policy Cherry [facility] (WNR) MEDICARE ADVANTAGE [facility] (WNR) May 14, 2020 [id number] [phone] PITER CASAS ERD PATIENT Selected Encounter This section includes the information on record at [place] for the Encounter. Date/Time Encounter Type Encounter Description Reason Provider Source Mar 20, 2024 02:30 PM HEARING AID REPAIR/MODIFYIN G AUDIOLOGY ICD-10-CM H90.3 Sensorineural hearing loss, bilateral JOHN MCMULLEN Encounter Template Text not used by [place] Assessments - Encounter Diagnoses This section includes the primary and secondary diagnoses documented for the Encounter. Date/Time Primary/Secondary Diagnosis Diagnosis Name Provider Source Mar 20, 2024 03:29 PM PRIMARY Sensorineural hearing loss, bilateral LUDWIN CORCORAN [facility] Mar 20, 2024 03:29 PM SECONDARY Encounter for fitting and adjustment of hearing aid LUDWIN CORCORAN [facility] Plan of Treatment: Future Appointments (+ 6 months) and Future Tests (+/- 45 days) The Plan of Treatment section includes future care activities for the patient from all [place] [facility]. This section includes future appointments and future orders which are active, pending or scheduled. Future Appointments This section includes appointments that were scheduled to occur 6 months from the date of the Encounter, up to a maximum of 20 appointments. The data comes from all [facility] facilities. Appointment Date/Time Appointment Type Appointme nt Facility Name Apr 07, 2024 10:30 AM AMBULATORY - REHAB MEDICIN [facility] Encounter Notes: All associated encounter notes This section contains the clinical notes associated to the Encounter. Date/Time Encounter Note(s) Provider Source Mar 20, 2024 03:25 PM AUDIOLOGY NOTE: LOCAL TITLE: AUDIOLOGY CLINIC NOTE STANDARD TITLE: AUDIOLOGY NOTE DATE OF NOTE: MAR 20, 2024@15:25 ENTRY DATE: MAR 20, 2024@15:25:21 AUTHOR: MICK CORCORAN COSIGNER: PRATEEK MCMULLEN URGENCY: STATUS: COMPLETED DIAGNOSIS Encounter for fitting and Adjustment of Hearing Aids Sensorineural Hearing Loss, Bilateral Reason for Visit: Hearing Aid Service Location of Visit(Room Number):2S[address] [place] was seen for Hearing Aid Service/Repair: 30 minute Appointment Otoscopy: Free of Excessive Cerumen, Normal anatomy bilaterally DIAGNOSIS History: Patient seen for a hearing aid service/hearing aid check Make:RESOUND Model: ONE 61-R FRANKO Serial Number:[id number] Dome/Mold: FRANKO MICRO SILICONE MOLD The following Hearing aid problem(s) were presented Right Hearing Aid:COMMISSION SALES ASSOCIATE TOO SHORT Left Hearing Aid:CLEAN AND CHECK-EARMOLD DEFECTIVE/TORN Action: Hearing Aids were cleaned and checked. A listening check revealed good sound quality: REPLACED WAX GUARDS, REPLACED RIGHT COMMISSION SALES ASSOCIATE -3M ORDERED REPLACEMENT LEFT FRANKO MICRO MOLD-MAIL OUT [place] was counseled using a curriculum on the cleaning,care and use of hearing aids. Plan: Vet will contact call center as needed for follow up Patient is in agreement with this plan. Proof Passer:MAIL OUT NEW LEFT EARMOLD TO PATIENT, HE HAS CHANGED OUT RECEIVERS BEFORE /es/ MICK CORCORAN AUDIO TECH Signed: 03/20/2024 15:30 /riccardo/ Isidro Combs, CCC-A Condenser Operator Cosigned: 03/20/2024 16:20 MICK CORCORAN [facility]
--- OUTSIDE RECORDS SUMMARY | 2024-04-03 10:22 | XMS_ITS | Encounter Summary ---
Author Name [place] Address [address] [place] [address] Care Team Providers Care Faro Dealer Name Role Phone JIMENEZ CHESTER Primary Care [...] Cherry's Name Patient's Relationship to Policy Cherry [facility] (WNR) MEDICARE ADVANTAGE [facility] (WNR) May 14, 2020 [id number] [phone] PITER BOWERS ERD PATIENT Selected Encounter This section includes the information on record at [place] for the Encounter. Date/Time Encounter Type Encounter Description Reason Provider Source Feb 12, 2024 02:00 PM Outpatient Encounter ADMIN PAT ACTIVTIES (MASNONCT) MIYA JAMESON Encounter Template Text not used by [place] [...] 18, 2024 07:01 AM AMBULATORY - NONE [facility] Mar 20, 2024 09:00 AM AMBULATORY - REHAB [facility]ICIN [facility] Mar 20, 2024 02:30 PM AMBULATORY - SURGERY ETHAN [facility] Apr 07, 2024 10:30 AM AMBULATORY - REHAB MEDICIN [facility] Encounter Notes: All associated encounter notes This section contains the clinical notes associated to the Encounter. Date/Time Encounter Note(s) Provider Source Feb 13, 2024 01:43 PM ADDENDUM: LOCAL TITLE: Addendum STANDARD TITLE: ADDENDUM DATE OF NOTE: FEB 13, 2024@13:43:43 ENTRY DATE: FEB 13, 2024@13:43:44 AUTHOR: ANGEL ARMSTRONG EXP COSIGNER: URGENCY: STATUS: COMPLETED [place] was seen in a Community ED. Records uploaded to chart. Please review and follow up as appropriate. /riccardo/ ANGEL ARMSTRONG ...Advanced Sales And Marketing Associate Signed: 02/13/2024 13:43 Receipt Acknowledged By: 02/13/2024 19:51 /es/ JIMENEZ CHESTER MD PHYSICIAN 02/13/2024 14:33 /es/ Aamir Hazel RN [facility] --- Original Document --- 02/10/24 [facility] CARE-THERESA SELF PRESENTING CARE COORD PLAN NOTE: Emergency Notification Intake Date Presenting to the Facility: Jan Method of Contact: Notified from ECR worklist Notification ID: [id number] [facility] Referral #: [facility] Hospital Name: Hospital: [facility] Address: City: [place] State: [place] Zip Code: Phone : [facility] Point of Contact: Name: [facility] DEPT Chief complaint: UTI Primary Diagnosis: Disposition Unknown at time of intake note entry /riccardo/ GRIFFIN LEGER [facility] PACK[facility] FUSER Signed: 02/12/2024 14:02 Receipt Acknowledged By: 02/13/2024 08:47 /riccardo/ Miya Jameson RN LISA MSN inspector soldering Light Rail Operator 02/13/2024 ADDENDUM STATUS: COMPLETED Notification acknowledged by RN, medical and clinical information not reviewed. /riccardo/ Miya Jameson RN LISA MSN inspector soldering Light Rail Operator Signed: 02/13/2024 08:47 02/13/2024 ADDENDUM STATUS: COMPLETED Note from [facility] 03/06 ED encounter: Rosalina Bowers [...] ultimately decided they felt comfortable discharge Phoned [place]. Spoke with SO Sonali as has Dementia. -Sonali notes they have already been in contact with CHF doctor and they D/c'd Furosemide. They have labs next week and will f/u with cardiology as needed. -No needs from PACT. /riccardo/ Aamir Hazel RN [facility] Signed: 02/13/2024 14:35 ANGEL ARMSTRONG [facility] Feb 10, 2024 02:01 PM NONVA NOTE: [...] Contact: Notified from ECR worklist Notification ID: [id number] [facility] Referral #: Community Hospital Name: Hospital: [facility] Address: City: [place] State: [place] Zip Code: Phone : Community Facility Point of Contact: Name: [facility] ASHLEY Chief complaint: UTI Primary Diagnosis: Disposition Unknown at time of intake note entry /es/ GRIFFIN LEGER [facility] PACKER FUSER Signed: 02/12/2024 14:02 Receipt Acknowledged By: 02/13/2024 08:47 /es/ Miya Jameson RN LISA MSN inspector soldering Light Rail Operator 02/13/2024 ADDENDUM STATUS: COMPLETED Notification acknowledged by RN, medical and clinical information not reviewed. /riccardo/ Miya Jameson RN LISA MSN inspector soldering Light Rail Operator Signed: 02/13/2024 08:47 02/13/2024 ADDENDUM STATUS: COMPLETED [place] was seen in a Community ED. Records uploaded to chart. Please review and follow up as appropriate. /es/ ANGEL ARMSTRONG ...Advanced Sales And Marketing Associate Signed: 02/13/2024 13:43 Receipt Acknowledged By: * AWAITING SIGNATURE * JIMENEZ CHESTER 02/13/2024 14:33 /es/ Aamir Hazel RN [facility] 02/13/2024 ADDENDUM STATUS: COMPLETED Note from [facility] 03/06 ED encounter: Rosalina Bowers [...] ultimately decided they felt comfortable discharge Phoned [place]. Spoke with SHOLA [place] as has Dementia. -Sonali notes they have already been in contact with CHF doctor and they D/c'd Furosemide. They have labs next week and will f/u with cardiology as needed. -No needs from PACT. /es/ Aamir Hazel RN [facility] Signed: 02/13/2024 14:35 GRIFFIN LEGER [facility]
--- OUTSIDE RECORDS SUMMARY | 2024-04-03 10:22 | XMS_ITS | Encounter Summary ---
Author Name Department of [place] Organization [place] Address [address] [place] [address] Care Team Providers Care Soft Top Installer Name Role Phone JIMENEZ CHESTER Primary Care [...] Name Patient's Relationship to Policy Cherry [facility] (WNR) MEDICARE ADVANTAGE [facility] (WNR) May 14, 2020 [id number] [phone] PITER CASAS ERD PATIENT Selected Encounter This section includes the information on record at [place] for the Encounter. Date/Time Encounter Type Encounter Description Reason Pro vider Source Mar 10, 2024 12:00 PM Outpatient Encounter TELEPHONE TRIAGE JYOTSNA SMART Encounter Template Text not used by MD [...] 2024 07:01 AM AMBULATORY - NONE [facility] Mar 20, 2024 09:00 AM AMBULATORY - REHAB [facility] Mar 20, 2024 02:30 PM AMBULATORY - SURGERY [facility]AN [facility] Apr 07, 2024 10:30 AM AMBULATORY - REHAB [facility] Encounter Notes: All associated encounter notes This section contains the clinical notes associated to the Encounter. Date/Time Encounter Note(s) Provider Source Mar 10, 2024 12:00 PM RN PROGRESS NOTE: LOCAL TITLE: CCC: CLINICAL TRIAGE STANDARD TITLE: RN PROGRESS NOTE DATE OF NOTE: MAR 10, 2024@12:00:34 ENTRY DATE: MAR 10, 2024@12:00:34 AUTHOR: JYOTSNA SMART COSIGNER: URGENCY: STATUS: COMPLETED Patient Demographics Patient Name: JUNG CASAS Patient Primary Address: [address] [place] [address] Patient Primary Phone: [phone] Patient : 1940 Patient Age: 83 Call Back Number: [phone] Caller/Recipient Relation to Patient: Other If Other Describe Relation to Patient: Spouse Caller Name: Shellie Emergency Contact: SHELLIE YESSENIA Triage Summary Chief Complaint: Pressure Ulcer System WHEN: Within 8 Hours Nurse's Recommendation / WHEN: Within 24 Hours System WHERE: Urgent care center Nurse's Recommendation / WHERE: Clinic/[facility] Nursing Plan and Disposition Referred Patient for In-Person Appt Transferred patient to Sched & Admin-Apt Nurse Summary Nurse Summary: PATIENT CONCERN/DURATION/ONSET: [place] spouse Shellie is calling to get Authorization for [facility] appt. Shellie reports that the had a non healing pressure ulcer on his left heel, which [facility] was managing. ''It closed. A [...] fevers, nausea, chills, vomiting, and sweats. See [facility] script for symptom assessment, pertinent positives and negatives. WHAT HAS PATIENT TRIED TO TREAT THE SYMPTOMS: Dressing, padded bandaid and wound medication HISTORY/PREVIOUS TREATMENT: Pressure Ulcer, DMII, History of amputation of right leg through tibia and fibula WHAT IS PATIENT GOAL FOR THE CALL: Clinical eval, requesting for authorization of wound management to [facility] Was Virtual Care Visit considered (TELE or VVC)? NA INSTRUMENT DESIGNER DISPOSITION: Recommended triage is <24 hours secondary [...] back, seek ER//911 eval. Best contact for is [phone] (Verified). This note was created by a 3 [facility] RN. Please do not alert this nurse by adding as a signer for future communications. Alerts are not monitored by this user, please reach out to [facility] Leadership instead if indicated. Clinical Contact Center Codes Clinic/Location: 3 [facility] PHONE CCC RN Decision Support System Output: Triage Complete Triage Date: 03/10/2024, 11:52 AM Triage Note: Decision Support Tool Used: [facility] Phone Triage 10 Mar 2024 16:43:32 +0000 [facility] Demographics 83 y/o Male Results CC: [...] ulcer includes: Monitor Dressing Avoid pressure on cafe site attendant daily To call back for new or worsening symptoms Please seek ER if you endorse any of the following symptoms: Severe pain around the site Pus draining from the ulcer Fever over 101 degrees F (38.3 C) SOB Sudden weakness, chills, sweats Confusion IMPORTANT: This note was created by [facility] Clinical Contact Center staff. Please do not alert the staff member by adding them as a signer for future communications. Alerts are not monitored by this user. /riccardo/ SIS SERRANO 23 DAYTIME MOTION STUDY ENGINEER Signed: 03/10/2024 12:00 JYOTSNA SMART [facility]
--- OUTSIDE RECORDS SUMMARY | 2024-04-03 10:22 | XMS_ITS | Encounter Summary ---
Author Name [place] Address [address] [place] [address] Care Team Providers Care [employer] Name Role Phone JIMENEZ CHESTER Primary Care [...] Name Patient's Relationship to Policy Cherry [facility] (WNR) MEDICARE ADVANTAGE [facility] (WNR) May 14, 2020 [id number] [phone] PITER CASAS ERD PATIENT Selected Encounter This [...] 18, 2024 07:01 AM [facility] Mar 20, 2024 09:00 [facility] Mar 20, 2024 02:30 PM [facility] - [facility] Apr 07, 2024 10:30 AM AMBULATORY - REHAB [facility] Immunizations: All administered on the encounter date This section contains immunizations associated to the Encounter. Immunization Series Date Issued Reaction Comments COVID-19 (PFIZER), MRNA, LNP -S, PF, NAVYA-SUCROSE, 30 MCG/0.3 ML (AGES 12+ YEARS) Feb 26, 2024 INFLUENZA, ADJUVANTED, TRIVALENT, PF Feb 25 24
--- OUTSIDE RECORDS SUMMARY | 2024-04-03 10:22 | XMS_ITS | Encounter Summary ---
Author Name [place] Address [address] [place] [address] Care Team Providers Care Feed Inspection Supervisor Name Role Phone JIMENEZ CHESTER Primary [...] Cherry's Name Patient's Relationship to Policy Cherry [facility] (WNR) MEDICARE ADVANTAGE [facility] (WNR) May 14, 2020 [id number] [phone] PITER CASAS ERD PATIENT Selected Encounter This section includes the information on record at [place] for the Encounter. Date/Time Encounter Type Encounter Description Reason Provider Source Feb 02, 2024 10:15 AM HEARING AID CHECK BOTH EARS AUDIOLOGY ICD-10-CM Z46.1 Encounter for fitting and adjustment of hearing aid MICK BLACK Emerald Encounter Template Text not used by [place] Assessments - Encounter Diagnoses This section includes the primary and secondary diagnoses documented for the Encounter. Date/Time Primary/Secondary Diagnosis Diagnosis Name Provider Source Feb 02, 2024 10:36 AM PRIMARY Encounter for fitting and adjustment of hearing aid MICK CUBA [facility] Plan of Treatment: Future Appointments (+ 6 months) and Future Tests (+/- 45 days) The Plan of Treatment section includes future care activities for the patient from [facility] [place] [facility] This section includes future appointments and future orders which are active, pending or scheduled. Future Appointments This section includes appointments that were scheduled to occur 6 months from the date of the Encounter, up to a maximum of 20 appointments. The data comes from all [facility]. Appointment Date/Time Appointment Type Appointme nt Facility Name Feb 12, 2024 02:00 PM AMBULATORY - NONE [facility] Mar 11, 2024 11:30 AM AMBULATORY - MEDICINE [facility] ([facility]) Mar 18, 2024 07:01 AM AMBULATORY - NONE [facility] Mar 20, 2024 09:00 AM AMBULATORY - REHAB [facility] Mar 20, 2024 02:30 PM AMBULATORY - SURGERY [facility] Apr 07, 2024 10:30 AM AMBULATORY - REHAB MEDICIN E [facility] Encounter Notes: All associated encounter notes [...] RESOUND RESOUND ONE 61 MINI FRANKO-R R [id number] GN RESOUND RESOUND ONE 61 MINI FRANKO-R L [id number] The following hearing aid problem/s were presented: [...] today: wax guards Ordering wax guards via [employer] was counseled on the cleaning, care and use of hearing aids. Plan: Patient will schedule an appointment to return to the clinic as needed Patient is in agreement with this plan. Mail new silicone earmold to the address on file. The 's knows how to change/replace /riccardo/ MICK CUBA [facility] CORRECTIONS OFFICER Signed: 02/02/2024 10:36 /riccardo/ Pauly Perez Ph.D. Dental Manager Chief, Audiology Cosigned: 02/11/2024 06:26 02/11/2024 ADDENDUM STATUS: COMPLETED I have reviewed the audiological note and concur with the findings, procedures and recommendations for the . The health photocopier technician provided services to the during the time of the entire appointment. /riccardo/ Pauly Perez Ph.D. Dental Manager Chief, Audiology Signed: 02/11/2024 06:26 02/14/2024 ADDENDUM STATUS: COMPLETED RECEIVED AND CERTIFIED RIGHT RESOUND FRANKO MICRO MOLD MAILED EARMOLD TO INSTRUCTED AT THE ADDRESS ON FILE /riccardo/ MICK CORCORAN AUDIO TECH Signed: 02/14/2024 07:46 /riccardo/ Pauly Cespedes Clinical Nailing Machine Operator Cosigned: 02/20/2024 09:56 MICK CUBA [facility]
--- OUTSIDE RECORDS SUMMARY | 2024-04-03 10:22 | XMS_ITS | Encounter Summary ---
Author Name [place] Address [address] [place] [address] Care Team Providers Care Sorter Upholstery Parts Name Role Phone JIMENEZ CHESTER Primary Care [...] Cherry's Name Patient's Relationship to Policy Cherry [facility] ([facility]) MEDICARE ADVANTAGE [facility] (WNR) May 14, 2020 [id number] [phone] PITER CASAS ERD PATIENT Selected Encounter This section includes the information on record at [place] for the Encounter. Date/Time Encounter Type Encounter Description Reason Pro vider Source Mar 18, 2024 12:00 PM Outpatient Encounter ADMIN PAT ACTIVTIES (MASNONCT) IHE Encounter Template Text not used by [...] The data comes from all [place] treatment [facility]. Appointment Date/Time Appointment Type Appointme nt Facility Name Mar 20, 2024 09:00 AM AMBULATORY - REHAB [facility] Mar 20, 2024 02:30 PM AMBULATORY - SURGERY [facility] Apr 07, 2024 10:30 AM AMBULATORY - REHAB [facility] Encounter Notes: All associated encounter notes This section contains the clinical notes associated to the Encounter. Date/Time Encounter Note(s) Provider Source Mar 18, 2024 12:00 PM NONVA CONSULT: LOCAL TITLE: COMMUNITY CARE CONSULT RESULT WOUND CARE [place] STANDARD TITLE: NONVA CONSULT DATE OF NOTE: MAR 18, 2024@12:00 ENTRY DATE: APR 01, 2024@14:38:04 AUTHOR: PRAFUL PALACIOS EXP COSIGNER: URGENCY: STATUS: COMPLETED VistA Imaging - Scanned Document SCANNED DOCUMENT SIGNATURE NOT REQUIRED Electronically Filed: 04/01/2024 by: FERNANDEZ [facility] INFORMATION CONDUCTOR FREIGHT PRAFUL PALACIOS [facility]
--- OUTSIDE RECORDS SUMMARY | 2024-04-03 10:22 | XMS_ITS | Encounter Summary ---
Author Name Department [place] Address [address] [place] [address] Care Team Providers Care Clarifier Operator Name Role Phone JIMENEZ CHESTER Primary [...] [facility] (WNR) MEDICARE ADVANTAGE [facility] (WNR) May 14, 2020 [id number] [phone] PITER CASAS ERD PATIENT Selected Encounter This section includes the information on record at [place] for the Encounter. Date/Time Encounter Type Encounter Description Reason Provider Source Apr 01, 2024 07:10 AM Outpatient Encounter PM&RS PHYSICIAN ICD-10-CM Z89.511 Acquired absence of right leg below knee JUAN JEAN Emerald Encounter Template Text not used by [place] Assessments - Encounter Diagnoses This section includes the primary and secondary diagnoses documented for the Encounter. Date/Time Primary/Secondary Diagnosis Diagnosis Name Provider Source Apr 01, 2024 07:13 AM PRIMARY Acquired absence of right leg below knee JUAN JEAN [facility] Plan of Treatment: Future Appointments [...] appointments. The data comes from all [facility] facilities. Appointment Date/Time Appointment Type Appointme nt Facility Name Apr 07, 2024 10:30 AM AMBULATORY - REHAB [facility] Encounter Notes: All associated encounter notes This section contains the clinical notes associated to the Encounter. Date/Time Encounter Note(s) Provider Source Apr 01, 2024 07:10 AM ORTHOTICS PROSTHET ICS CONSULT: LOCAL TITLE: [facility] CONS[facility] STANDARD TITLE: ORTHOTICS PROSTHETICS CONSULT DATE OF NOTE: APR 01, 2024@07:10 ENTRY DATE: APR 01, 2024@07:10:40 AUTHOR: JUAN JEAN COSIGNER: URGENCY: STATUS: COMPLETED Major Medical E-Consult Patient is a 83 yo with right BKA, polyneuropathy, and CHF who uses a wheelchair for mobility. He is unable to transfer from a wheelchair into a vehicle independently. He has been referred for a one time van conversion to allow patient wheelchair- in-vehicle access. Specific equipment being requested for ingress/egress of the front passenger-side position of a minivan vehicle via his [employer] PWC includes: Vet and plan to purchase a 2023 [employer] [place] 1. Full wheelchair-accessible minivan conversion package (i.e., lowered floors, lowered doors, keyless entry, power sliding doors) with standard 54-inch side-entry door opening height with power fold-out vs. power in-floor ramp. 2. Q'Straint QLK, EZ-Lock, or equivalent, wheelchair docking system for vet's [employer] Q6 Edge 3 PWC, with survey research center director positioned in front passenger- side position of vehicle. 3. Seat belt survey research center director extension secured to floor via in-floor track system, compatible with factory-installed occupant restraint system, to be used when vet rides in his PWC in the front passenger-side position of the vehicle. Given his condition and diagnosis, he meets criteria for this and request is approved. Prosthetics consult will be generated once three bids have been received. Total time spent on e-consult: 5-10 minutes /riccardo/ JUAN JEAN MD STAFF PHYSICIAN Signed: 04/01/2024 07:13 Receipt Acknowledged By: 04/01/2024 09:17 /riccardo/ VLADIMIR NGUYỄN Prosthetics * AWAITING SIGNATURE * LISANDRA GUTIERREZ [facility]
--- OUTSIDE RECORDS SUMMARY | 2024-04-03 10:22 | XMS_ITS | Encounter Summary ---
Author Name Department [place] Address [address] [place] [address] Care Team Providers Care Woods Rider Name Role Phone RABIA MOLINA Primary Care [...] Cherry's Name Patient's Relationship to Policy Cherry [facility] (WNR) MEDICARE ADVANTAGE [facility] (WNR) May 14, 2020 [id number] [phone] PITER BOWERS ERD PATIENT Selected Encounter This section includes the information on record at [place] for the Encounter. Date/Time Encounter Type Encounter Description Reason Provider Source Mar 20, 2024 09:00 AM COMMUNITY/WORK REINTEGRATION PM&RS OVEN TECHNICIAN TRAINING ICD-10-CM Z89.511 Acquired absence of right leg below knee SHORTY BALDERRAMA Emerald Encounter Template Text not used by [place] Assessments - Encounter Diagnoses This section includes the primary and secondary diagnoses documented for the Encounter. Date/Time Primary/Secondary Diagnosis Diagnosis Name Provider Source Mar 20, 2024 03:26 PM PRIMARY Acquired absence of right leg below knee SHORTY BALDERRAMA [facility] Mar 20, 2024 03:26 PM SECONDARY Type 2 diabetes mellitus with diabetic polyneuropathy SHORTY BALDERRAMA [facility] Plan of Treatment: Future Appointments (+ 6 months) and Future Tests (+/- 45 days) The Plan of Treatment section includes future care activities for the patient from all [place] treatmentfacilities. This section includes future appointments and future orders which are active, pending or scheduled. Future Appointments This section includes appointments that were scheduled to occur 6 months from the date of the Encounter, up to a maximum of 20 appointments. The data comes from all [place] treatment facilities. Appointment Date/Time Appointment Type Appointme nt Facility Name Apr 07, 2024 10:30 AM AMBULATORY - REHAB [facility] Encounter Notes: All associated encounter notes This section contains the clinical notes associated to the Encounter. Date/Time Encounter Note(s) Provider Source Mar 20, 2024 04:30 PM OCCUPATIONAL THERA PY CONSULT: LOCAL TITLE: OVEN TECHNICIAN TRAINING CONSULT STANDARD TITLE: OCCUPATIONAL THERAPY CONSULT DATE OF NOTE: MAR 20, 2024@16:30 ENTRY DATE: MAR 22, 2024@15:19:57 AUTHOR: SHORTY BALDERRAMA EXP COSIGNER: URGENCY: STATUS: COMPLETED OT OVEN TECHNICIAN REHAB CONSULT NOTE VEHICLE ACCESS EVALUATION NOTE REFERRING PROVIDER: Rabia Molina, PCP/PACT DIAGNOSIS/REASON FOR REFERRAL: Acquired absence of right leg below knee; Non- Assistant Professor Of Economics Safe Passenger Evaluation: Assess for Vehicle Modification and Equipment. SIGNIFICANT MEDICAL HX: Right BKA; peripheral neuropathy due to type II diabetes mellitus; CAD; CHF; hearing loss. PRECAUTIONS: Falls risk; pressure sore on left heel foot. PAIN: Annabellet reported c/o mild phantom limb pain (intensity 2/10) in his residual right LE at time of today's session. Dk was seen 03/20/24 for total of 57 minutes including 45 minutes (1 unit) OT evaluation-moderate complexity and 12 minutes (1 unit) Instrumental Activities of Daily Living (IADLs)/community reintegration skills. ASSESSMENT: Mr. Bowers is a 83 year-old male from [facility] in [place]) referred to OT Assistant Professor Of Economics Rehab clinic to complete vehicle access evaluation. Dk currently resides with his in their own home. Dk's , Moe, attended the entirety of today's session with vet. Dk and his verbalized their agreement with participating in today's vehicle access session. Mr. Bowers and his , Moe, confirmed that dk no longer independently operates a motor vehicle and only accesses a vehicle via the passenger position at this time. Dk's reported that they currently have a 2022 James XTS four-door crossover, and that dk has been [...] therefore, dk and his were educated that dk would not be eligible for the [place] Auto Nakul and AAE program ([place] Form 95-0240). Dk and his were educated that, if needed, dk could pursue a funding request for AAE and/or vehicle modification needed for ingress/egress of the passenger position of vehicle via the local [facility] Major Medicine Clinic committee. Author extensively reviewed the process to pursue [facility] funding assistance for AAE and/or vehicle modification to allow dk to access a vehicle via his VA-ordered [employer] [facility] for ingress/egress of front passenger-side position. Mr. Archuletas functional mobility is significantly limited secondary to his Right BKA, peripheral neuropathy, and current pressure sore on his left heel. During today's session, dk required Minimum to Moderate physical assistance from his during today's session to complete ingress/egress of the front passenger- side position of their 2022 James STS. Dk's /caregiver assisted dk while holding dk's waistband and the front [...] funding request for vehicle modification to the [facility] committee for review. AUTOMOTIVE [...] dk's [employer] Q6 Edge 3 PWC, with license and permit specialist positioned in front passenger-side position of vehicle. Dk's has recent h/o knee fracture and is not able to bend down onto her knees to floor of vehicle to utilize manual wheelchair tie-downs. 3. Seat belt license and permit specialist extension secured to floor via in-floor track system, compatible with factory-installed occupant restraint system, to be used when dk rides in his PWC in the front passenger-side position of the vehicle. PLAN: [facility] OT Assistant Professor Of Economics Rehab vehicle access evaluation initiated and education provided in regards to possible AAE and vehicle modification recommendations, as well as, process for funding assistance via a [facility] committee referral for AAE and vehicle modification needed for ingress/egress of front passenger-side position of minivan vehicle. Dk and his reported that they are most interested in pursuing purchase of a new minivan vehicle. Dk and his are interested in submitting a funding request to the [facility] committee for review of AAE and vehicle modification. Author to remain available to dk and his , Moe, to address further education concerns or questions, as needed, as they pursue purchase of new vehicle and vehicle modification. Please contact KASIA Reyes/Yousuf, GAB, at ph. #[phone] or work cell #[phone] with further questions or concerns regarding this session; thank you for this referral. SHORT-TERM GOALS TO BE MET: Within One Session on 03/20/2024: 1. Dk will participate in vehicle access evaluation to determine AAE and vehicle modification recommendations for vet's ingress/egress of vehicle via his MWC and PWC.--MET 03/20/2024. 2. Dk and his /caregiver will verbalize their understanding of the AAE recommendations, and funding process for recommended AAE and/or vehicle modification.--MET 03/20/2024. EDUCATION ON TREATMENT PLAN: 1:1 teaching strategy with dk and dk's , Moe. -Author educated dk and his on [facility] OT Assistant Professor Of Economics Rehab program, AAE and vehicle modification recommendations for vehicle access including ingress/egress of passenger-side position of vehicle via vet's MWC and PWC. -Author educated dk and his regarding funding process for AAE and vehicle modification for ingress/egress needs via the [facility] committee. -Dk and his were provided with author's direct contact number and they were encouraged to contact author directly with any additional questions they may have about the [facility] OT Assistant Professor Of Economics Rehab program, AAE and vehicle modification recommendations, or funding options. -Author educated dk and his , Moe, on today's OT Assistant Professor Of Economics Rehab results, AAE and/or vehicle modification recommendations, and treatment plan. -Annabellet and his indicated their readiness to learn, verbalized their understanding, agreement, and satisfaction with the OT Assistant Professor Of Economics Rehab results, AAE and/or vehicle modification recommendations, and treatment plan. -Dk and his denied further questions at this time and thanked author for his assistance today. The results of this OT Assistant Professor Of Economics Rehab session were obtained during completion of [...] by his primary medical providers and the [place] Department of Public Safety. OBJECTIVE: CURRENT VEHICLES: Year: 2022 Make: [employer] Model: XTS Crossover with: 4 doors, Automatic [...] his to complete squat-pivot transfers from his MWC during today's session into/out of their vehicle. [...] dk's Quantum Q6 Edge 3 PWC, with license and permit specialist positioned in front passenger-side position of vehicle. 3. Seat belt license and permit specialist extension secured to floor via in-floor track [...] Auto Nakul and AAE program ([place] Form 21-4656): Dk and his were educated that dk is currently not listed as having [place] for loss of or loss of use of an extremity or an eye. Therefore, kd and his were educated that dk would not be eligible for the [place] Auto Nakul and AAE program ([place] Form [id number]). -[facility] committee funding request: Dk and his were educated that dk could pursue a funding request for AAE and/or vehicle modification needed for ingress/egress of the passenger position of vehicle via the local [facility] committee. Author extensively reviewed process to pursue funding assistance for vehicle modification and/or AAE to allow dk to access a vehicle via his MWC or PWC for ingress/egress of front passenger-side position. Dk and his , Moe, were educated that the [facility] committee funding request is only for AAE and/or vehicle modification to allow for ingress/egress of the vehicle and it does not include any funding or nakul monies towards the purchase of a different vehicle. Dk and his were also educated that if their funding request is approved by the [facility] committee, then [facility] Prosthetics and Ameya Departments will solicit local adapted mobility vendors for bids on the project and that the process is competitive and typically requires three bids to be reviewed. Once reviewed, the [facility] Prosthetics/Ameya Departments will award the bid project to the selected adapted mobility vendor. Dk and his were educated that under the [facility] process, they are not free to choose [...] Occupational Therapist Signed: 03/22/2024 15:40 SHORTY BALDERRAMA [facility]
--- OUTSIDE RECORDS SUMMARY | 2024-04-03 10:22 | XMS_ITS | Encounter Summary ---
Author Name [place] Address [address] [place] [address] Care Team Providers Care Hop Farm Worker Name Role Phone JIMENEZ CHESTER Primary Care [...] Cherry's Name Patient's Relationship to Policy Cherry [facility] (WNR) MEDICARE ADVANTAGE [facility] (WNR) May 14, 2020 [id number] [phone] PITER CASAS ERD PATIENT Selected Encounter This section includes the information on record at [place] for the Encounter. Date/Time Encounter Type Encounter Description Reason Provider Source Mar 12, 2024 08:55 AM Outpatient Encounter COMMUNITY CARE CONSULT ARACELI TORRE E Encounter Template Text not used by [place] Plan of Treatment: Future Appointments (+ 6 [...] 2024 07:01 AM AMBULATORY - NONE [facility] Mar 20, 2024 09:00 AM AMBULATORY - REHAB [facility] Mar 20, 2024 02:30 PM AMBULATORY - SURGERY [facility] Apr 07, 2024 10:30 AM AMBULATORY - REHAB [facility] Encounter Notes: All associated encounter notes This [...] SUBJECT: Community Care Hardship Determination Consult # [id number] COMMUNITY CARE-CARE COORDINATION PLAN NOTE Has ADDENDA PLEASE ADDRESS Please note that Community Care Hardship Determination Consult # [id number] 02/10/2024. ALBA-Hardship request approved by COS or designee: 12 months HDL-Hardship decision letter sent to [place]: 02/09/[address] new consult if this hardship determination is still needed. /nallely Torre RN, BSN, [facility] podiatrist assistant [employer] Signed: 03/12/2024 09:02 Receipt Acknowledged By: 03/16/2024 18:40 /riccardo/ JIMENEZ CHESTER MD PHYSICIAN 03/12/2024 13:18 /riccardo/ Aamir Hazel RN [facility] 03/16/2024 ADDENDUM STATUS: COMPLETED Best medical interest [...] SUBJECT: Community Care Wound Care Consult No: [id number] Community Care Consult: Community Care Wound Care Consult No: [id number] Chief Complaint: Robinson is a with diabetes and history of [...] appropriate Direct communications with interdisciplinary team Plan: [place] assessed as needing complex care coordination which may include case management if appropriate, direct communication with interdisciplinary team and/or [place], chronic disease management if appropriate. [place] and/or caregiver provided direct contact information for [...] tracker. /riccardo/ Araceli Torre RN, BSN, CCM podiatrist assistant [employer] Signed: 03/12/2024 08:57 ARACELI TORRE [facility]
--- OUTSIDE RECORDS SUMMARY | 2024-04-03 10:22 | XMS_ITS | Encounter Summary ---
Author Name [facility] Organization [facility] [place] Address [address] [place] [address] Care Team Providers Care Tool Hardener Name Role Phone JIMENEZ CHESTER Primary Care [...] Name Patient's Relationship to Policy Cherry [facility] (WNR) MEDICARE ADVANTAGE [facility] (WNR) May 14, 2020 [id number] [phone] PITER CASAS ERD PATIENT Selected Encounter This [...] 20 appointments. The data comes from all [place] treatment facilities. Appointment Date/Time Appointment Type Appointme nt Facility Name Mar 18, 2024 07:01 AM AMBULATORY - NONE [facility] Mar 20, 2024 09:00 AM AMBULATORY - REHAB [facility]IC[facility] Mar 20, 2024 02:30 PM AMBULATORY - SURGERY [facility] Apr 07, 2024 10:30 AM AMBULATORY - REHAB MEDICIN [facility] Encounter Notes: All associated encounter notes This section contains the clinical notes associated to the Encounter. Date/Time Encounter Note(s) Provider Source Mar 12, 2024 09:42 AM NONVA NOTE: LOCAL TITLE: COMMUNITY CARE PRE-AUTH LETTER (AUTOPRINT) STANDARD TITLE: NONVA NOTE DATE OF NOTE: MAR 12, 2024@09:42 ENTRY DATE: MAR 12, 2024@09:42:47 AUTHOR: ROBINSON NAVARRETE COSIGNER: URGENCY: STATUS: COMPLETED Feb JUNG CASAS [address], [place] [address] Dear JUNG CASAS, Your VA provider has referred you to a provider within the community for care. Your medical care for Wound Care has been authorized with the community care provider listed below. DO NOT REPORT TO THE [facility] Provider info: Care has been approved for the following vendor: Office name, address, and phone number: [address] [address] Please contact the identified provider to schedule your community appointment. If you need assistance with this appointment, please call your facility community care office [facility] Community Care at [phone] during the hours of 8:30AM - 3:00PM. Please follow up with your local [facility] community care office once this is scheduled. This step is needed to ensure your referral duration is maximized and the [place] has accurate referral information for billing purposes. Authorization Number: [id number] Referral Issue Date: Feb Expiration Date: Aug (subject to change based on first appointment) If you are unable to schedule this appointment or the appointment is no longer needed, please contact the community provider above for notification/rescheduling and then call the [facility] Community [facility] at [phone] during the hours of 8:30AM - 3:00PM. If you need additional care/services not mentioned above or your authorization has and additional care is needed, please contact your primary care provider for a new referral. To review all care/service(s) approved under your referral, please go to the following link: [employer] Co-Payments: If you are required to pay a VA co-payment, you will be billed by the VA for each authorized visit that you attend. However, you are NOT REQUIRED to make co-payments to a community provider. Thank you for the opportunity to serve you. Sincerely, [place] Community Care (VACC) /riccardo/ ROBINSON NAVARRETE MSA Signed: 03/12/2024 09:43 ROBINSON NAVARRETE [facility]
--- OUTSIDE RECORDS SUMMARY | 2024-04-03 10:23 | XMS_ITS | Referral Summary ---
Author Organization [facility] Address [address] [place] [address] Care Team Providers Care Motor Vehicle Field Representative Name Role Phone None Reported, Pcp Primary Care Provider Unavail able Source Comments Patient records contain information from all sites at [facility]. For routine questions regarding patient records, call [phone] during business hours, M-F 8:00 AM - 5:00 PM Central Time. Record requests for emergency care only can be directed to [phone] at any time.[facility] Encounters Date Type Department Care Team Description 03/12/2024 Refill Senior Services in [facility] [address] [place] [address] Hannah Castillo, RAYNA, C.N.P. Med [...] guaze. Assessment & Plan (06/15/2023 4:18 PM RUBBER BOOTS AND SHOES REPAIRER): The wound bed is clean. A thin layer of silver stat will be applied with a gauze. Change daily. 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 Left Heel: Area continues to improve. Wound measures 1.0inE9ic. Edges well defined, attached and 100% re-epithelialized tissues. Granulation tissue is observed along the lining of the edges under the bed of slough/eschar. Eschar is soft but not mushy. Wound bed is still approx 95% or more of slough/eschar. Scant drainage with dressing change. Resident tolerated cares without any concerns. New wound orders as follows: Assessment & Plan (06/15/2023 4:10 PM RUBBER BOOTS AND SHOES REPAIRER): 1: Gently cleanse area with NS. Pat dry. 2. Skin prep to gonsalo-wound. 3. Santyl to wound bed only. 4. Place gauze over wound. 5. cover with island dressing. 6. Change dressing daily. He may be discharged to home with home nursing for wound care . Assessment & Plan (06/01/2023 2:33 PM RUBBER BOOTS AND SHOES REPAIRER): Continue wound care and have MANAGER OF SALES evaluate in one week. Dementia 05/20/2023 Overview (05/24/2023): No documented dementia or behaviors Assessment & Plan (05/24/2023 5:57 PM RUBBER BOOTS AND SHOES REPAIRER): He has low hearing which could contribute to him not understanding Assessment & Plan (05/20/2023 4:20 PM RUBBER BOOTS AND SHOES REPAIRER): Although initial BIMS testing scored 14, he has had episodes of what seems to be sundowning with strong suspicion of underlying dementia. Will have OT further evaluate. Hyperglycemia 04/22/2023 Overview (04/22/2023): Prior to recent hospitalization, insulin glargine dose was 25 units daily and short-acting insulin 10 units with meals. Assessment & Plan (05/24/2023 6:00 PM RUBBER BOOTS AND SHOES REPAIRER): A1C 7.2 He will follow up with his PCP in [place] Assessment & Plan (04/22/2023 8:28 PM RUBBER BOOTS AND SHOES REPAIRER): His appetite has been poor and he has been getting much less insulin than he is used to. His sugars however have been high. Will gradually increase mealtime insulin to 7 units. Previously on 10 units with meals. Alf (Current) Anticoagulant Treatment 08/2022 Overview (04/16/2023): On [...] side. 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 He will need a standard wheelchair Mr. Woods was admitted to [facility] April 10 following BK right lower extremity. [...] site Assessment & Plan (04/16/2023 7:55 PM RUBBER BOOTS AND SHOES REPAIRER): Pain is well controlled. Stump care consists of washing with normal saline and dry. Cover with dry gauze or ABD b.i.d. he is wearing the knee brace to maintain extension in his working with therapies. He has follow-up with vascular surgery 05/11/2023. Assessment & Plan (04/12/2023 4:53 PM RUBBER BOOTS AND SHOES REPAIRER): Patient and mentioned he is doing well [...] 75mcg. Assessment & Plan (06/05/2023 9:25 PM RUBBER BOOTS AND SHOES REPAIRER): TSH value improved compared to prior value of 16.0 a month ago. Resident /nursing denied symptoms of hypothyroidism. Last T4 was 0.92 in April 2023. residential sales confirmed levothyroxine is given every morning (6am) without other medications. Therefore, we will increase levothyroxine 50mcg to 75mcg and rechecked TSH in 6 weeks. Nursing instructed to continue monitoring for symptoms of hypothyroidism and contact [place] provider if any concerns. Assessment & Plan (05/24/2023 5:24 PM RUBBER BOOTS AND SHOES REPAIRER): Increase levothyroxine to 50 mcg daily. longterm may give two 25 mcg tablets to equal 50 mcg. He will be discharging in a week Assessment & Plan (04/23/2023 12:56 PM RUBBER BOOTS AND SHOES REPAIRER): TSH will be done. He is currently on levothyroxine 25 mcg daily. Dose will need to be adjusted if TSH is elevated. Assessment & Plan (04/16/2023 7:56 PM RUBBER BOOTS AND SHOES REPAIRER): Recheck TSH mid April. Assessment & Plan (04/12/2023 4:45 PM RUBBER BOOTS AND SHOES REPAIRER): Continue levothyroxine. TSH reordered. 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 Assessment & Plan (04/12/2023 4:08 PM RUBBER BOOTS AND SHOES REPAIRER): Plans to discharge back home. Patient remains [...] home with home health care. Follow-up with [place] provider Assessment & Plan (01/17/2023 2:06 PM [...] status Assessment & Plan (05/24/2023 5:15 PM RUBBER BOOTS AND SHOES REPAIRER): He will be full code Assessment & Plan (01/17/2023 2:30 PM CDT): Continue full code status Hyperlipidemia 01/16/2023 Overview (05/24/2023): On atorvastatin Assessment & Plan (05/24/2023 6:01 PM RUBBER BOOTS AND SHOES REPAIRER): Stay on statin Assessment & Plan (01/17/2023 2:35 PM CDT): Continue atorvastatin Assessment & Plan (01/17/2023 2:01 PM CDT): Continue atorvastatin Weakness General 01/16/2023 Overview (01/16/2023): This is multifactorial and related to recent hospitalizations and multiple comorbidities. Assessment & Plan (06/05/2023 9:26 PM RUBBER BOOTS AND SHOES REPAIRER): Denied weakness. We will continue therapy. Assessment & Plan (05/24/2023 6:05 PM RUBBER BOOTS AND SHOES REPAIRER): He is getting stronger with therapy. He will continue therapy when he gets his prosthesis. He will have a wheelchair upon discharge. Assessment & Plan (04/12/2023 4:09 PM RUBBER BOOTS AND SHOES REPAIRER): Verbalized improvement with weakness. We will continue [...] 04/11/2023 Assessment & Plan (04/12/2023 3:58 PM RUBBER BOOTS AND SHOES REPAIRER): Stable. Denied dizziness, lightheadedness, shortness of breaths and palpitation. Assessment & Plan (01/17/2023 2:30 PM CDT): Stable. Assessment & Plan (01/17/2023 1:58 PM CDT): Stable. Assessment & Plan (01/16/2023 7:16 PM CDT): Most recent hemoglobin 9.3. Atherosclerotic Heart Diseas e Of [place] Coronary Artery Without Angina Pectoris 01/15/2023 Overview [...] RAP). Assessment & Plan (05/24/2023 5:52 PM RUBBER BOOTS AND SHOES REPAIRER): Stable on current meds Assessment & Plan (04/23/2023 1:02 PM RUBBER BOOTS AND SHOES REPAIRER): BNAP 31,578 on 04/16/23. Dr. Gerardo increased furosemide to 40 mg bid and added spironolactone 25 mg daily. Weight today in [place] was 174 lb. No edema noted in left leg. No dyspnea. On O2 per N/C continuous. No change in medications until renal function results are available. Assessment & Plan (04/16/2023 7:41 PM RUBBER BOOTS AND SHOES REPAIRER): He had multiple medication changes during hospitalization including discontinuation of spironolactone and Entresto. Farxiga is being held. Metoprolol and furosemide doses were decreased. Assessment & Plan (04/12/2023 4:01 PM RUBBER BOOTS AND SHOES REPAIRER): No admission weight yet. Nursing to check [...] 12/22/2022 Assessment & Plan (04/22/2023 8:26 PM RUBBER BOOTS AND SHOES REPAIRER): Pro BN AP earlier today greater than [...] Apixaban Assessment & Plan (05/24/2023 5:53 PM RUBBER BOOTS AND SHOES REPAIRER): manager software development anticoagulation on apixaban Assessment & Plan (04/23/2023 1:03 PM RUBBER BOOTS AND SHOES REPAIRER): Ventricular rate controlled today Assessment & Plan (04/12/2023 3:59 PM RUBBER BOOTS AND SHOES REPAIRER): HR well controlled ranging from 82-85. Continue care plan. Assessment & Plan (01/17/2023 2:31 PM CDT): HR well controlled ranging from 64-99. Continue care plan. Assessment & Plan (01/16/2023 8:24 AM CDT): HR well controlled. Continue care plan. Alf Use Of Insulin Active 12/09/2022 Overview (01/16/2023): On insulin glargine and aspart started during hospitalization December 2022. Assessment & Plan (05/24/2023 5:20 PM RUBBER BOOTS AND SHOES REPAIRER): Nurse reports he is nonadherent to his [...] daily Assessment & Plan (06/07/2023 2:51 PM RUBBER BOOTS AND SHOES REPAIRER): Blood sugars have been elevated due to [...] hypoglycemia. Assessment & Plan (05/29/2023 7:56 PM RUBBER BOOTS AND SHOES REPAIRER): Patient's blood sugar continued to be on [...] sugar diets like he [facility] at the [facility]. I have discussed with nursing on encouraging [...] possible. Assessment & Plan (05/24/2023 5:59 PM RUBBER BOOTS AND SHOES REPAIRER): Insulin dependent not always compliant with diet. Glargine will be increased to 17 units. Assessment & Plan (05/22/2023 6:43 PM RUBBER BOOTS AND SHOES REPAIRER): Blood sugar continued to be elevated mostly [...] times daily with meals. Follow-up with MANAGER OF SALES next week. Dietitian/dietary to visit with patient and to discuss food options. Assessment & Plan (05/20/2023 4:22 PM RUBBER BOOTS AND SHOES REPAIRER): Recent blood sugars in the SNF setting have been elevated. Short and long-acting insulin doses have changed significantly since admission. Will have him follow- up with MANAGER OF SALES for further review of blood sugars. Assessment & Plan (04/23/2023 1:04 PM RUBBER BOOTS AND SHOES REPAIRER): Blood sugars not controlled. Increase Lantus to 14 units from 12. Assessment & Plan (04/16/2023 7:42 PM RUBBER BOOTS AND SHOES REPAIRER): Was previously on glipizide and higher doses of mealtime aspart. Blood sugars are being checked 4 times daily. May need insulin readjusted. Assessment & Plan (04/12/2023 4:04 PM RUBBER BOOTS AND SHOES REPAIRER): Blood sugars have been I< 200s. Currently [...] to 25 units and follow-up. Atherosclerosis Of [place] Ar teries Of Other Extremities With Ulceration [...] 120-130 Assessment & Plan (04/12/2023 4:07 PM RUBBER BOOTS AND SHOES REPAIRER): Images from the original note were not [...] redness. Assessment & Plan (05/24/2023 5:14 PM RUBBER BOOTS AND SHOES REPAIRER): Stable Assessment & Plan (04/29/2023 7:54 PM RUBBER BOOTS AND SHOES REPAIRER): Today, nursing had reported left lower calf and ankle redness with open wound. On assessing the left calf/ankle, there was an open skin area (abrasion) that has no redness, swelling nor drainage. The skin was not warmth to touch and patient denied pain at 0/10 (nurse financial sales manager was in attendance during visit). Nursing stated does look better than what it was this morning. They have been cleaning the wound area in apply Mepilex. Since there was no symptoms or evidence of infection on the left lower calf and ankle redness with open wound, nursing was instructed to continue skin check daily and current dressing. Contact [facility] providers if worsening skin condition. Of [...] 04/11/2023 Assessment & Plan (04/12/2023 3:57 PM RUBBER BOOTS AND SHOES REPAIRER): CBC reordered. Denied dizziness, lightheadedness, shortness of [...] 04/11/2023 Assessment & Plan (04/12/2023 4:05 PM RUBBER BOOTS AND SHOES REPAIRER): BMP ordered. Assessment & Plan (01/17/2023 2:35 [...] Overview (01/15/2023): Onychomycosis of toenails; Original Code: [id number] Original Codesystem: SNOMED CT Classification: Medical Confirmation [...] Comments Blood Pressure 107/66 06/18/2023 1:10 PM RUBBER BOOTS AND SHOES REPAIRER Pulse 78 06/18/2023 1:10 PM RUBBER BOOTS AND SHOES REPAIRER Temperature 36.6 C (97.8 F) 06/18/2023 1:10 PM RUBBER BOOTS AND SHOES REPAIRER Respiratory Rate 16 06/18/2023 1:10 PM RUBBER BOOTS AND SHOES REPAIRER Oxygen Saturation 95% 06/18/2023 1:10 PM RUBBER BOOTS AND SHOES REPAIRER Inhaled Oxygen Concentration - - Weight 75.8 kg (167 lb) 06/18/2023 1:10 PM RUBBER BOOTS AND SHOES REPAIRER Height 175.3 cm (5' 9) 04/12/2023 3:21 PM RUBBER BOOTS AND SHOES REPAIRER Body Mass Index 24.66 04/12/2023 3:21 PM RUBBER BOOTS AND SHOES REPAIRER Plan of Treatment Not on file Insurance MEDICARE [facility] Advance Directives For more information, please contact: [phone] * DNR/DNI (Latest Code Status on File) Date Activated Date Inactivated Comments 05/24/2023 6:14 PM * DNR/DNI Date Activated Date Inactivated Comments 04/12/2023 4:11 PM 04/16/2023 7:15 AM Care Teams Motor Vehicle Field Representative Relationship Specialty Start Date End Date None Reported, Pcp PCP - General 03/21/24
--- OUTSIDE RECORDS SUMMARY | 2024-04-03 10:23 | XMS_ITS | Encounter Summary ---
Author Organization [facility] Address [address] [place] [address] Care Team Providers Care Gold Wheel Blocker And Polisher Name Role Phone None Reported, Pcp Primary Care Provider Unavail able Reason for Visit * Reason Comments Med Refill Encounter Details Date Type Department Care Team (Late st Contact Info) Description 03/12/2024 Refill Senior Services in [facility] [address] [place] [phone] Hannah Castillo, RAYNA, C.N.P. [address] [facility] [place] [phone] Med Refill Social History Tobacco Use Types [...] on filedocumented in this encounter Care Teams Gold Wheel Blocker And Polisher Relationship Specialty Start Date End Date None Reported, Pcp PCP - General 03/21/24 documented as of this encounter
--- OUTSIDE RECORDS SUMMARY | 2024-04-03 10:23 | XMS_ITS | Data Portability ---
Author Organization [facility] Dominick gy, [facility] Address [address] [place] [address] Care Team Providers Care Otologist Name Role Phone VOTELPARVEZ Primary Care Provider [...] Address Organization Details Last Updated DateTime 11/28/2023 51098.78 g 23 kg/m2 177.[address] [facility] 11/28/2023 14:16:54 Social History Question Answer Notes LastModified by Organizat ion Details LastModified Time Tobacco Smoking Status Former Smoker [facility] Ryan [facility] 11/28/2023 14:22:10 What Is Your [...] adjuvanted, trivalent, PF 01/10/2018 completed [facility] 11/28/2023 14:17:02 Influenza, adjuvanted, trivalent, PF 02/12/2020 completed [facility] 11/28/2023 14:17:02 Influenza, high-dose, quadrivalent, PF 03/09/2021 completed [facility] 11/28/2023 14:17:02 Influenza, high-dose, quadrivalent, PF 04/05/2022 completed [facility] null, [facility] 11/28/2023 14:17:02 Influenza, adjuvanted, quadrivalent, PF 03/05/2023 completed [facility] null, [facility] 11/28/2023 14:17:02 COVID-19, mRNA, LNP-S, PF, 100 mcg/0.5mL dose or 50 mcg/0.25mL dose 03/09/2021 completed [facility] null, [facility] 11/28/2023 14:17:02 COVID-19, mRNA, LNP-S, PF, 30 mcg/0.3 mL dose 07/03/2020 [facility] 11/28/2023 14:17:02 COVID-19, mRNA, LNP-S, PF, 30 mcg/0.3 mL dose 07/24/2020 [facility] 11/28/2023 14:17:02 COVID-19, mRNA, LNP-S, bivalent, PF, 50 mcg/0.5 mL or 25mcg/0.25 mL dose 03/29/2022 completed [facility] Mg-Valer o null, [facility] 11/28/2023 14:17:02 RSV, bivalent, protein subunit RSVpreF, diluent reconstituted, 0.5 mL, PF 03/05/2023 [facility] 11/28/2023 14:17:02 COVID-19, mRNA, LNP-S, PF, estrella-sucrose, 30 mcg/0.3 mL 03/05/2023 [facility] 11/28/2023 14:17:02 pneumococcal polysaccharide PPV23 02/09/2011 [facility], [facility] 11/28/2023 14:17:02 pneumococcal polysaccharide PPV23 03/06/2006 [facility], [facility] 11/28/2023 14:17:02 influenza, unspecified formulation 03/15/2017 [facility], [facility] 11/28/2023 14:17:02 Pneumococcal conjugate PCV 13 01/21/2015 completed [facility] null, [facility] 11/28/2023 14:17:02 Influenza, high-dose, trivalent, PF 01/21/2015 [facility], [facility] 11/28/2023 14:17:02 Influenza, high-dose, trivalent, PF 03/07/2019 [facility], [facility] 11/28/2023 14:17:02 Influenza, split virus, trivalent, preservative 01/30/2013 completed [facility] null, [facility] 11/28/2023 14:17:02 Influenza, split virus, trivalent, preservative 02/26/2003 completed [facility] null, [facility] 11/28/2023 14:17:02 Influenza, split virus, trivalent, preservative 03/01/2004 [facility], [facility] 11/28/2023 14:17:02 Influenza, split virus, trivalent, preservative 03/05/2007 [facility], [facility] 11/28/2023 14:17:02 Influenza, split virus, trivalent, preservative 03/06/2006 completed [facility], [facility] 11/28/2023 14:17:02 Influenza, split virus, trivalent, preservative 03/09/2005 [facility], [facility] 11/28/2023 14:17:03 Influenza, split virus, trivalent, preservative 03/09/[address] [facility], [facility] 11/28/2023 14:17:03 Influenza, split virus, trivalent, preservative 03/13/2012 completed [facility] null, [facility] 11/28/2023 14:17:03 Influenza, split virus, trivalent, preservative 04/28/2010 completed [facility] null, [facility] 11/28/2023 14:17:03 Influenza, split virus, trivalent, PF 02/09/2011 completed [facility] null, [facility] 11/28/2023 14:17:03 Influenza, split virus, trivalent, PF 04/05/2009 completed [facility] null, [facility] 11/28/2023 14:17:03 Td (adult), 5 Lf tetanus toxoid, preservative free, adsorbed 03/06/[address] [facility], [facility] 11/28/2023 14:17:03 Past Encounters Encounter ID Performer Location Encounter Start Date Encounter Closed Date Diagnosis/Indication Diagnosis SNOMED-CT Code Diagnosis ICD10 Code [id number] Roberto Carballo MD [facility] [address] [place] [address] 11/28/2023 13:46:09 12/04/2023 16:43:22 Phimosis 247200139 N47.1 Health Concerns Section Related Observation LastModified by Organization Detai ls LastModified Time None Recorded Concern Status LastModified by Organization Details LastModified Time None Recorded Advance Directives Directive None Recorded Payers Encounter Date Sequence Insurance Name Policy Number Policy Cherry Covered Member ID Cherry Member ID Guarantor Name 11/28/2023 1 [place] - MEDICARE COST [id number] Rosalina Bowers [id number] Rosalina Bowers Notes Date Note Type Note Provider Name and Address Organization Details Recorded Time 11/28/2023 text/html 83 yo male with history of CAD (on Plavix), A.fib (on Eliquis), HTN, hyperlipidemia, DM (with neuropathy), HFrEF, hypothyroidism, and CKD (stage 3) - presents for evaluation of phimosis. He has tried steroid cream - no improvement. He reports difficulty / unable to retracting his foreskin for the past several months. He denies trouble with infections / balanitis. He denies trouble with urination. ____PSA - 1.38 (03/05/07)- 1.40 (04/28/10) Roberto Carballo MD [address] [place] [address],[facility], [place], [phone], [facility] 11/30/2023 11:21:51
--- OUTSIDE RECORDS SUMMARY | 2024-04-03 10:23 | XMS_ITS | Clinical Summary ---
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 Test 3 times daily 1 Device 1 Active Insulin Heavener, Disposable, (Novofine 32) 32 gauge x 1/4Indications:2 [...] be used to read blood sugars, follow hog ringer directions. 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 11/25/2019 HTN (hypertension) 10/28/2015 Hyperlipidemia LDL goal <70 10/28/2015 Adenomatous colon polyp 04/13/2015 Overview (03/16/2020): Colonoscopy 04/2015 polyps repeat in 5 years Colonoscopy 03/2020 polyps, repeat in 5 years Background diabetic retinopathy(362.01) 07/10/19 08 Unspecified hearing loss 07/10/2007 Coronary atherosclerosis of unspecified type of vessel, [place] or graft Overview (11/08/2011): 4 vessel CABG 2001 Lexiscan only for cardiac evaluation - no treadmill Other ill-defined and unknow n causes of morbidity and mortality Impotence of organic origin Resolved Problems Problem Noted Date Diagnosed Date Resolved Date Type 2 diabetes mellitus with complication 11/16/2017 12/22/2022 Heart disease, unspecified 0 07/10/2007 Encounters Date Type Department Care Team Description 04/02/2024 10:30 AM WORKERS' COMPENSATION CLAIMS EXAMINER Home Care [facility] [address] [facility] [phone] Lidia Mccoy, RN SN - OASIS START OF CARE 04/02/2024 Plan of Care Documentation [facility] [address] [facility] [place] [phone] 03/31/2024 Transcribe Orders [facility] [address] [facility] [phone] Brenda Hart NP 03/14/2024 Telephone [facility] [address] [place] [address] Shade Manuel MD 03/13/2024 11:00 AM CDT Patient Outreach [facility] [address] [place] [address] Priyanka Hummel bail attacher (Follow-up) 03/13/2024 Travel 03/12/2024 Refill [facility] [address] [place] [address] Melquiades Man MD Refill Request (Basaglar Kwikpen U-100 Insulin) 02/22/2024 1:40 PM CDT Orders Only [address] [phone] Sherita Adamson Lab 02/22/2024 Travel 02/17/2024 Travel 02/12/2024 Telephone [facility] [address] [facility] [address] [place] [address] Shade Manuel MD Follow Up 02/10/2024 8:12 AM CDT - 02/10/2024 12:50 PM CDT Emergency [facility] [address] [place] [address] Shira Morley MD Del Castillo, Isabelle Jennifer Rose Farro, MD Altered mental status, unspecified altered mental status type (Primary Dx); Lethargy; ALEX (acute kidney injury) (HC); Dehydration Discharge Disposition: Home Self Care 02/10/2024 Travel 02/07/2024 11:00 AM CDT Patient Outreach [facility] [address] [place] [address] Priyanka Hummel bail attacher (F/u insulin management) 02/07/2024 Travel 02/04/2024 Orders Only [facility] Scanner 1 scan: (1-Ord) [facility], CERVICAL SPINE WO, 02/04/2024 02/04/2024 Orders Only [facility] Scanner 1 scan: (1-Ord) [place], CT HEAD/BRAIN WO CON, 02/04/2024 02/04/2024 Nurse Triage [facility] [address] [place] [address] Melquiades Man MD Neck Pain/problem 01/17/2024 12:40 PM CDT Orders Only [address] [phone] Lab, Located Within [facility] Lab 01/17/2024 11:00 AM CDT Patient Outreach [address] [phone] Priyanka Hummel bail attacher (Download CGM for insulin management) 01/17/2024 Telephone [facility] [address] [place] [address] Melquiades Man MD 01/17/2024 Travel 01/11/2024 Nurse Triage [facility] [address] [place] [address] Melquiades Man MD Low Blood Pressure 01/11/2024 Nurse Triage [facility] [address] [place] [address] Melquiades aMn MD Low Blood Pressure 01/08/2024 1:30 PM CDT Office [facility] [address] [place] [address] Dr [address] [facility] [place] [address] Shade Manuel MD CV Heart Failure Est (EST PT. 6 MONTH F/U) 01/08/2024 Travel 01/04/2024 2:00 PM CDT Office Visit [facility] [address] [place] [address] Tatyana Nguyen PA Diabetes (a1c check ) 01/04/2024 Travel 01/04/2024 Telephone [facility] [address] [place] [address] VotelMelquiades MD Procedure (DISCHARGE) 01/04/2024 Telephone [facility] [address] [place] [address] Tatyana Nguyen PA Appointment from Last 3 Months Immunizations Name Administration [...] Brother kidney problems Heart Disease Father 1st [place] at 65 d 77 yo CHF Diabetes Mother Heart Disease Mother d 64 yo [place] Genetic Other There is a posi tive [...] Sign Reading Time Taken Comments Blood Pressure 103/58 04/02/2024 2:50 PM WORKERS' COMPENSATION CLAIMS EXAMINER Pulse 71 04/02/2024 1:52 PM WORKERS' COMPENSATION CLAIMS EXAMINER Temperature 36.6 C (97.9 F) 04/02/2024 1:52 PM WORKERS' COMPENSATION CLAIMS EXAMINER Respiratory Rate 16 04/02/2024 1:52 PM WORKERS' COMPENSATION CLAIMS EXAMINER Oxygen Saturation 96% 04/02/2024 1:52 PM WORKERS' COMPENSATION CLAIMS EXAMINER Inhaled Oxygen Concentration - - Weight 86.2 kg (190 lb) 04/02/2024 1:52 PM WORKERS' COMPENSATION CLAIMS EXAMINER Height 175.3 cm (5' 9) 02/10/2024 8:20 AM CDT Body Mass Index 28.06 02/10/2024 8:20 AM CDT Plan of Treatment Upcoming Encounters Date Type Department Care Team (Late st Contact Info) Description 04/15/2024 11:00 AM WORKERS' COMPENSATION CLAIMS EXAMINER Ancillary Procedure [facility] [address] [facility] [address] [place] [address] Health Maintenance Due Date Last Done Comments [...] included. GLUCOSE 115 65 - 139 mg/dL [facility] Comment: Non-fasting reference interval UREA NITROGEN (BUN) 38(H) 7 - 25 mg/dL [facility] CREATININE 1.85(H) 0.70 - 1.22 mg/dL [facility] [...] AM CDT 03/13/2024 11:24 AM CDT Narrative [facility] - 03/14/2024 3:00 AM CDT FASTING:NO FASTING: NO Shade Manuel MD CHEMISTRY [facility] [address] [place] [address], [facility] [address] [place] [address] * URINALYSIS MICROSCOPIC (02/10/2024 10:19 AM CDT) RBC None Seen 0-2, None Seen /HPF 02/10/2024 10:45 AM T [facility] WBC None Seen 0-2, 3-5, None Seen /HPF 02/10/2024 10:45 AM T [facility] BACTERIA None Seen None Seen, Rare, Few Bacteria/ HPF 02/10/2024 10:45 AM T [facility] EPITHELIAL CELLS Few None Seen, Few Epi/HPF 02/10/2024 10:45 AM T [facility] Urine URINE SPECIMEN / Unknown Non-Blood / Unknown 02/10/2024 10:19 AM CDT 02/10/2024 10:23 AM CDT Shira Morley MD URINE Performing Organization Address City/[facility]/ZIP Co de Phone Number [facility] [address] [place] [address] * URINE CULTURE (02/10/2024 10:19 AM CDT) CULTURE 10-50,000 CFU/mL of multiple organisms, probable contaminants 02/11/2024 10:36 AM CDT [facility] Urine URINE SPECIMEN / Unknown Non-Blood / Unknown 02/10/2024 10:19 AM CDT 02/10/2024 10:23 AM CDT Shira Morley MD MICROBIOLOGY Performing Organization Address [facility]/ZIP Co de Phone Number [facility] [address] [address], * (ABNORMAL) UA W/ SEDIMENT EXAM REFLEXED PER CRITERIA (02/10/2024 10:19 AM CDT) COLOR Yellow Yellow Color 02/10/2024 10:28 AM [facility] CLARITY Clear Clear Clarity 02/10/2024 10:28 AM [facility] SPECIFIC GRAVITY,URINE 1.015 1.010, 1.015, 1.020, 1.025 02/10/2024 10:28 AM [facility] PH,URINE 5.5 6.0, 7.0, 8.0, 5.5, 6.5, 7.5, 8.5 02/10/2024 10:28 AM [facility] UROBILINOGEN, QUALITATIVE Normal Normal EU/dl 02/10/2024 10:28 AM [facility] PROTEIN, URINE Negative Negative mg/dL 02/10/2024 10:28 AM [facility] GLUCOSE, URINE >=1000(A) Negative mg/dL 02/10/2024 10:28 AM [facility] KETONES,URINE Negative Negative mg/dL 02/10/2024 10:28 AM CDT [facility] BILIRUBIN,URI NE Negative Negative 02/10/2024 10:28 AM CDT [facility] OCCULT BLOOD,URINE Negative Negative 02/10/2024 10:28 AM CDT [facility] NITRITE Negative Negative 02/10/2024 10:28 AM CDT [facility] LEUKOCYTE ESTERASE Negative Negative 02/10/2024 10:28 AM CDT [facility] Urine URINE SPECIMEN / Unknown Non-Blood / Unknown 02/10/2024 10:19 AM CDT 02/10/2024 10:23 AM CDT Shira Morley MD URINE [facility] [address] [place] [address] * CT HEAD BRAIN WO (02/10/2024 9:00 [...] Narrative 02/10/2024 9:10 AM CDT For Patients: As a result of the 21st Century Cures Act, medical imaging exams and procedure reports are released immediately into your electronic medical record. You may view this report before your referring provider. If you have questions, please contact your health [...] - 11.0 thou/cu mm 02/10/2024 8:58 AM [facility] RED BLOOD COUNT 3.47(L) 4.30 - 5.90 mil/cu mm 02/10/2024 8:58 AM [facility] HEMOGLOBIN 10.2(L) 13.5 - 17.5 g/dL 02/10/2024 8:58 AM [facility] HEMATOCRIT 32.8(L) 37.0 - 53.0 % 02/10/2024 8:58 AM [facility] MCV 95 80 - 100 fL 02/10/2024 8:58 AM [facility] MCH 29.4 26.0 - 34.0 pg 02/10/2024 8:58 AM [facility] MCHC 31.1(L) 32.0 - 36.0 g/dL 02/10/2024 8:58 AM [facility] RDW 14.9 11.5 - 15.5 % 02/10/2024 8:58 AM [facility] PLATELET COUNT 271 140 - 440 thou/cu mm 02/10/2024 8:58 AM [facility] MPV 10.1 6.5 - 11.0 fL 02/10/2024 8:58 AM [facility] % NEUT 70.9 % 02/10/2024 8:58 AM [facility] % LYMPH 14.1 % 02/10/2024 8:58 AM [facility] % MONO 8.8 % 02/10/2024 8:58 AM [facility] % EOS 5.9 % 02/10/2024 8:58 AM [facility] % BASO 0.3 % 02/10/2024 8:58 AM CDT [facility] ABSOLUTE NEUTROPHILS 5.4 1.7 - 7.0 thou/cu mm 02/10/2024 8:58 AM CDT [facility] ABSOLUTE LYMPHOCYTES 1.1 0.9 - 2.9 thou/cu mm 02/10/2024 8:58 AM CDT [facility] ABSOLUTE MONOCYTES 0.7 <0.9 thou/cu mm 02/10/2024 8:58 AM CDT [facility] ABSOLUTE EOSINOPHILS 0.5(H) <0.5 thou/cu mm 02/10/2024 8:58 AM CDT [facility] ABSOLUTE BASOPHILS 0.0 <0.3 thou/cu mm 02/10/2024 8:58 AM CDT [facility] Blood BLOOD SPECIMEN / Unknown Butterfly / Unknown 02/10/2024 8:41 AM CDT 02/10/2024 8:45 AM CDT Shira Morley MD HEMATOLOGY Performing Organization Address City/[facility]/ZIP Co de Phone Number [facility] [address] [place] [address] * LACTATE VENOUS (02/10/2024 8:41 AM CDT) Pathologist [facility] LACTATE,VENOUS 1.6 0.5 - 2.0 mmol/L 02/10/2024 9:07 AM CDT [facility] Blood BLOOD SPECIMEN / Unknown Butterfly / Unknown 02/10/2024 8:41 AM CDT 02/10/2024 8:45 AM CDT Shira Morley MD CHEMISTRY [facility] [address] [place] [address] * TSH (02/10/2024 8:41 AM CDT) TSH 2.91 0.27 - 4.20 uIU/mL 02/10/2024 9:16 AM CDT [facility] Blood BLOOD SPECIMEN / Unknown Butterfly / Unknown 02/10/2024 8:41 AM CDT 02/10/2024 8:45 AM CDT [facility] - 02/10/2024 9:16 AM CDT In Adults, TSH values between 5.00 and 10.00 uIU/ml do not necessarily indicate the presence of Hypothyroidism. Correlation with clinical findings such as presence of goiter and/or Thyroperoxidase (TPO) Antibody may be helpful. For more information please refer to RONNIE 2004; 291: 228-238. Shira Morley MD CHEMISTRY Performing Organization Address [facility] Co de Phone Number [facility] [address] [place] [address] * AMMONIA (02/10/2024 8:41 AM CDT) Pathologist [facility] AMMONIA 14 11 - 51 umol/L 02/10/2024 9:07 AM CDT [facility] Blood BLOOD SPECIMEN / Unknown Butterfly / Unknown 02/10/2024 8:41 AM CDT 02/10/2024 8:45 AM CDT [facility] - 02/10/2024 9:07 AM CDT 1. Sulfasalazine and its metabolite Sulfapyridine at therapeutic concentrations may lead to falsely low results. 2. Temozolomide and its metabolite MTIC may lead to falsely elevated results, and its metabolite AIC may lead to falsely low results. Shira Morley MD CHEMISTRY Performing Organization Address [facility]/ZIP Co de Phone Number [facility] [address] [place] [address] * (ABNORMAL) HEPATIC FUNCTION PANEL (02/10/2024 8:41 AM CDT) ALBUMIN 3.6(L) 4.0 - 4.9 g/dL 02/10/2024 9:16 AM CDT [facility] PROTEIN,TOTAL 7.5 6.0 - 8.0 g/dL 02/10/2024 9:16 AM CDT [facility] BILIRUBIN,TOTAL 0.3 0.0 - 1.2 mg/dL 02/10/2024 9:16 AM CDT [facility] BILIRUBIN,DIRECT 0.1 0.0 - 0.2 mg/dL 02/10/2024 9:16 AM CDT [facility] BILIRUBIN,INDIRE CT 02/10/2024 9:16 AM CDT [facility] Comment:Unable to calculate, Direct Bili <0.2 ALK PHOSPHATASE 95 40 - 129 IU/L 02/10/2024 9:16 AM CDT [facility] ALT (SGPT) 13 10 - 50 IU/L 02/10/2024 9:16 AM CDT [facility] AST (SGOT) 19 10 - 50 IU/L 02/10/2024 9:16 AM CDT [facility] Blood BLOOD SPECIMEN / Unknown Butterfly / Unknown 02/10/2024 8:41 AM CDT 02/10/2024 8:45 AM CDT Shira Morley MD CHEMISTRY [facility] [address] [place] [address] * SCAN-CT INTERPRETATION (02/04/2024 12:00 AM CDT) Only the most recent of2 resultswithin the time period is included. Anatomical Region Laterality Modality Other Scanner OTHER * (ABNORMAL) HEMOGLOBIN A1C MONITORING (POCT) (01/04/2024 2:14 PM CDT) HEMOGLOBIN A1C MONITORING (POCT) 9.7(H) <=6.4 % 01/04/2024 2:24 PM CDT [facility] Blood BLOOD SPECIMEN / Unknown Venipuncture / Unknown 01/04/2024 2:14 PM CDT 01/04/2024 2:16 PM CDT Narrative [facility] - 01/04/2024 2:24 PM CDT (<=6.9%) Indicates good control (7.0% to 7.9%) Indicates fair control (>=8.0%) Indicates poor control NOTE: These thresholds are guidelines and individual targets may vary. Falsely low levels may be seen with: Recent Transfusion, Recent Significant Blood Loss, Hemolytic Diseases, or Falsely elevated levels may be seen with: Untreated Anemias, Splenectomy Tatyana JENNINGS CHEMISTRY [facility] [address] [place] [address], [place] [phone] from Last 3 Months Additional Health Concerns [...] 12 months since positive culture): resides in acute/half-way care, receiving hemodialysis, has chronic open wounds/skin damage, has long-term percutaneous indwelling medical devices Exclusions for nares collection (if <12 months since positive culture) include all of the previous exclusions plus patients on antibiotics 7 days prior to collection 03/08/2023 05/31/2023 ESBL 04/26/2023 04/26/2023 Advance Directives Documents on File Type Date Recorded Patient Fly Tier Expl anation POLST 03/26/2023 * Full Code [...] Code Status Discussion: Reviewed Preferences Care Teams [employer] C[employer] Relationship Specialty Start Date End Date Votel, Melquiades Gray MD [address] [place] [address] PCP - General 11/20/05 Nurses, Advanced Heart Failure [address] [place] [address] Advanced Heart Failure/Transplant Card 01/24/23 Shade Manuel MD [address] [facility] [place] [address] Cardiovascular Disease 01/24/23 [facility] [address] [address] 03/31/24
--- OUTSIDE RECORDS SUMMARY | 2024-04-03 10:23 | XMS_ITS | Clinical Summary ---
Author Organization [facility] Address [address] [place] [address] Care Team Providers Care Risk Control Representative Name Role Phone None Reported, Pcp Primary Care Provider Unavail able Source Comments Patient records contain information from all sites at [facility]. For routine questions regarding patient records, call [phone] during business hours, M-F 8:00 AM - 5:00 PM Central Time. Record requests for emergency care only can be directed to [phone] at any time.[facility] Allergies No known active allergies Medications blood [...] guaze. Assessment & Plan (06/15/2023 4:18 PM HEARING HEALTHCARE PRACTITIONER): The wound bed is clean. A thin layer of silver stat will be applied with a gauze. Change daily. 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 Left Heel: Area continues to improve. Wound measures [id number]. Edges well defined, attached and 100% re-epithelialized tissues. Granulation tissue is observed along the lining of the edges under the bed of slough/eschar. Eschar is soft but not mushy. Wound bed is still approx 95% or more of slough/eschar. Scant drainage with dressing change. Resident tolerated cares without any concerns. New wound orders as follows: Assessment & Plan (06/15/2023 4:10 PM HEARING HEALTHCARE PRACTITIONER): 1: Gently cleanse area with NS. Pat dry. 2. Skin prep to gonsalo-wound. 3. Santyl to wound bed only. 4. Place gauze over wound. 5. cover with island dressing. 6. Change dressing daily. He may be discharged to home with home nursing for wound care . Assessment & Plan (06/01/2023 2:33 PM HEARING HEALTHCARE PRACTITIONER): Continue wound care and have FELT FINISHING SUPERVISOR evaluate in one week. Dementia 05/20/2023 Overview (05/24/2023): No documented dementia or behaviors Assessment & Plan (05/24/2023 5:57 PM HEARING HEALTHCARE PRACTITIONER): He has low hearing which could contribute to him not understanding Assessment & Plan (05/20/2023 4:20 PM HEARING HEALTHCARE PRACTITIONER): Although initial BIMS testing scored 14, he has had episodes of what seems to be sundowning with strong suspicion of underlying dementia. Will have OT further evaluate. Hyperglycemia 04/22/2023 Overview (04/22/2023): Prior to recent hospitalization, insulin glargine dose was 25 units daily and short-acting insulin 10 units with meals. Assessment & Plan (05/24/2023 6:00 PM HEARING HEALTHCARE PRACTITIONER): A1C 7.2 He will follow up with his PCP in [place] Assessment & Plan (04/22/2023 8:28 PM HEARING HEALTHCARE PRACTITIONER): His appetite has been poor and he has been getting much less insulin than he is used to. His sugars however have been high. Will gradually increase mealtime insulin to 7 units. Previously on 10 units with meals. Web Analyst (Current) Anticoagulant Treatment 08/2022 Overview (04/16/2023): On [...] side. 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 He will need a standard wheelchair Mr. Woods was admitted to [facility] April 10 following BK right lower extremity. [...] site Assessment & Plan (04/16/2023 7:55 PM HEARING HEALTHCARE PRACTITIONER): Pain is well controlled. Stump care consists of washing with normal saline and dry. Cover with dry gauze or ABD b.i.d. he is wearing the knee brace to maintain extension in his working with therapies. He has follow-up with vascular surgery 05/11/2023. Assessment & Plan (04/12/2023 4:53 PM HEARING HEALTHCARE PRACTITIONER): Patient and mentioned he is doing well [...] 75mcg. Assessment & Plan (06/05/2023 9:25 PM HEARING HEALTHCARE PRACTITIONER): TSH value improved compared to prior value of 16.0 a month ago. Resident /nursing denied symptoms of hypothyroidism. Last T4 was 0.92 in April 2023. residential housekeeper confirmed levothyroxine is given every morning (6am) without other medications. Therefore, we will increase levothyroxine 50mcg to 75mcg and rechecked TSH in 6 weeks. Nursing instructed to continue monitoring for symptoms of hypothyroidism and contact [facility] provider if any concerns. Assessment & Plan (05/24/2023 5:24 PM HEARING HEALTHCARE PRACTITIONER): Increase levothyroxine to 50 mcg daily. halfway may give two 25 mcg tablets to equal 50 mcg. He will be discharging in a week Assessment & Plan (04/23/2023 12:56 PM HEARING HEALTHCARE PRACTITIONER): TSH will be done. He is currently on levothyroxine 25 mcg daily. Dose will need to be adjusted if TSH is elevated. Assessment & Plan (04/16/2023 7:56 PM HEARING HEALTHCARE PRACTITIONER): Recheck TSH mid April. Assessment & Plan (04/12/2023 4:45 PM HEARING HEALTHCARE PRACTITIONER): Continue levothyroxine. TSH reordered. 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 Assessment & Plan (04/12/2023 4:08 PM HEARING HEALTHCARE PRACTITIONER): Plans to discharge back home. Patient remains [...] status Assessment & Plan (05/24/2023 5:15 PM HEARING HEALTHCARE PRACTITIONER): He will be full code Assessment & Plan (01/17/2023 2:30 PM CDT): Continue full code status Hyperlipidemia 01/16/2023 Overview (05/24/2023): On atorvastatin Assessment & Plan (05/24/2023 6:01 PM HEARING HEALTHCARE PRACTITIONER): Stay on statin Assessment & Plan (01/17/2023 2:35 PM CDT): Continue atorvastatin Assessment & Plan (01/17/2023 2:01 PM CDT): Continue atorvastatin Weakness General 01/16/2023 Overview (01/16/2023): This is multifactorial and related to recent hospitalizations and multiple comorbidities. Assessment & Plan (06/05/2023 9:26 PM HEARING HEALTHCARE PRACTITIONER): Denied weakness. We will continue therapy. Assessment & Plan (05/24/2023 6:05 PM HEARING HEALTHCARE PRACTITIONER): He is getting stronger with therapy. He will continue therapy when he gets his prosthesis. He will have a wheelchair upon discharge. Assessment & Plan (04/12/2023 4:09 PM HEARING HEALTHCARE PRACTITIONER): Verbalized improvement with weakness. We will continue [...] 04/11/2023 Assessment & Plan (04/12/2023 3:58 PM HEARING HEALTHCARE PRACTITIONER): Stable. Denied dizziness, lightheadedness, shortness of breaths and palpitation. Assessment & Plan (01/17/2023 2:30 PM CDT): Stable. Assessment & Plan (01/17/2023 1:58 PM CDT): Stable. Assessment & Plan (01/16/2023 7:16 PM CDT): Most recent hemoglobin 9.3. 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 Assessment & Plan (05/24/2023 5:52 PM HEARING HEALTHCARE PRACTITIONER): Stable on current meds Assessment & Plan (04/23/2023 1:02 PM HEARING HEALTHCARE PRACTITIONER): BNAP 31,578 on 04/16/23. Dr. Gerardo increased furosemide to 40 mg bid and added spironolactone 25 mg daily. Weight today in [place] was 174 lb. No edema noted in left leg. No dyspnea. On O2 per N/C continuous. No change in medications until renal function results are available. Assessment & Plan (04/16/2023 7:41 PM HEARING HEALTHCARE PRACTITIONER): He had multiple medication changes during hospitalization including discontinuation of spironolactone and Entresto. Farxiga is being held. Metoprolol and furosemide doses were decreased. Assessment & Plan (04/12/2023 4:01 PM HEARING HEALTHCARE PRACTITIONER): No admission weight yet. Nursing to check [...] 12/22/2022 Assessment & Plan (04/22/2023 8:26 PM HEARING HEALTHCARE PRACTITIONER): Pro BN AP earlier today greater than [...] Apixaban Assessment & Plan (05/24/2023 5:53 PM HEARING HEALTHCARE PRACTITIONER): [facility] anticoagulation on apixaban Assessment & Plan (04/23/2023 1:03 PM HEARING HEALTHCARE PRACTITIONER): Ventricular rate controlled today Assessment & Plan (04/12/2023 3:59 PM HEARING HEALTHCARE PRACTITIONER): HR well controlled ranging from 82-85. Continue care plan. Assessment & Plan (01/17/2023 2:31 PM CDT): HR well controlled ranging from 64-99. Continue care plan. Assessment & Plan (01/16/2023 8:24 AM CDT): HR well controlled. Continue care plan. Half-Way Use Of Insulin Active 12/09/2022 Overview (01/16/2023): On insulin glargine and aspart started during hospitalization December 2022. Assessment & Plan (05/24/2023 5:20 PM HEARING HEALTHCARE PRACTITIONER): Nurse reports he is nonadherent to his [...] daily Assessment & Plan (06/07/2023 2:51 PM HEARING HEALTHCARE PRACTITIONER): Blood sugars have been elevated due to [...] hypoglycemia. Assessment & Plan (05/29/2023 7:56 PM HEARING HEALTHCARE PRACTITIONER): Patient's blood sugar continued to be on [...] possible. Assessment & Plan (05/24/2023 5:59 PM HEARING HEALTHCARE PRACTITIONER): Insulin dependent not always compliant with diet. Glargine will be increased to 17 units. Assessment & Plan (05/22/2023 6:43 PM HEARING HEALTHCARE PRACTITIONER): Blood sugar continued to be elevated mostly [...] 3 times daily with meals. Follow-up with FELT FINISHING SUPERVISOR next week. Dietitian/dietary to visit with patient and to discuss food options. Assessment & Plan (05/20/2023 4:22 PM HEARING HEALTHCARE PRACTITIONER): Recent blood sugars in the SNF setting have been elevated. Short and long-acting insulin doses have changed significantly since admission. Will have him follow- up with FELT FINISHING SUPERVISOR for further review of blood sugars. Assessment & Plan (04/23/2023 1:04 PM HEARING HEALTHCARE PRACTITIONER): Blood sugars not controlled. Increase Lantus to 14 units from 12. Assessment & Plan (04/16/2023 7:42 PM HEARING HEALTHCARE PRACTITIONER): Was previously on glipizide and higher doses of mealtime aspart. Blood sugars are being checked 4 times daily. May need insulin readjusted. Assessment & Plan (04/12/2023 4:04 PM HEARING HEALTHCARE PRACTITIONER): Blood sugars have been I< 200s. Currently [...] to 25 units and follow-up. 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 Assessment & Plan (05/24/2023 5:14 PM HEARING HEALTHCARE PRACTITIONER): Stable Assessment & Plan (04/29/2023 7:54 PM HEARING HEALTHCARE PRACTITIONER): Today, nursing had reported left lower calf and ankle redness with open wound. On assessing the left calf/ankle, there was an open skin area (abrasion) that has no redness, swelling nor drainage. The skin was not warmth to touch and patient denied pain at 0/10 (nurse inbound sales manager was in attendance during visit). Nursing stated does look better than what it was this morning. They have been cleaning the wound area in apply Mepilex. Since there was no symptoms or evidence of infection on the left lower calf and ankle redness with open wound, nursing was instructed to continue skin check daily and current dressing. Contact [facility] providers if worsening skin condition. Of note, [...] Treated with remdesivir at [facility]. Anemia 01/16/2023 04/12/2023 Overview (04/12/2023): Lab Results Component Value Date WBC 9.0 04/11/2023 HGB 7.8 (L) 04/11/2023 HCT 24.9 (L) 04/11/2023 MCV 95 04/11/2023 PLT 381 04/11/2023 Assessment & Plan (04/12/2023 3:57 PM HEARING HEALTHCARE PRACTITIONER): CBC reordered. Denied dizziness, lightheadedness, shortness of [...] 04/11/2023 Assessment & Plan (04/12/2023 4:05 PM HEARING HEALTHCARE PRACTITIONER): BMP ordered. 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 [id number] [id number] Hannah Castillo APRN, C.N.P. Med [...] Comments Blood Pressure 107/66 06/18/2023 1:10 PM HEARING HEALTHCARE PRACTITIONER Pulse 78 06/18/2023 1:10 PM HEARING HEALTHCARE PRACTITIONER Temperature 36.6 C (97.8 F) 06/18/2023 1:10 PM HEARING HEALTHCARE PRACTITIONER Respiratory Rate 16 06/18/2023 1:10 PM HEARING HEALTHCARE PRACTITIONER Oxygen Saturation 95% 06/18/2023 1:10 PM HEARING HEALTHCARE PRACTITIONER Inhaled Oxygen Concentration - - Weight 75.8 kg (167 lb) 06/18/2023 1:10 PM HEARING HEALTHCARE PRACTITIONER Height 175.3 cm (5' 9) 04/12/2023 3:21 PM HEARING HEALTHCARE PRACTITIONER Body Mass Index 24.66 04/12/2023 3:21 PM HEARING HEALTHCARE PRACTITIONER Plan of Treatment Health Maintenance Due Date [...] patient's age to complete this topic Insurance [facility] [place] [address] MEDICARE [facility] Advance Directives For more information, please contact: [phone] * DNR/DNI (Latest Code Status on File) Date Activated Date Inactivated Comments 05/24/2023 6:14 PM * DNR/DNI Date Activated Date Inactivated Comments 04/12/2023 4:11 PM 04/16/2023 7:15 AM Care Teams Risk Control Representative Relationship Specialty Start Date End Date None Reported, Pcp PCP - General 03/21/24
--- OUTSIDE RECORDS SUMMARY | 2024-04-03 10:23 | XMS_ITS ---
Author Organization [facility] Address [address] [place] [address] Care Team Providers Care Greens Keeper Name Role Phone Unavailable Unavailable Unavailable Surgery Details Not on file Complications Check Surgery Details section. Procedure Estimated Blood Loss Check Surgery Details section. Procedure Findings Check Surgery Details section. Procedure Specimens Taken Check Surgery Details section.
== END 2024-04-03 10:19 | disposition home or self-care (01) ==
LOC: WOUND 10:19
PROVIDERS: PCP Family Medicine; Visit Provider Nurse Practitioner Family
DX: E11.621 Type 2 diabetes mellitus with foot ulcer (principal); L89.629 Pressure ulcer of left heel, unspecified stage; S81.801A Unspecified open wound, right lower leg, initial encounter; Z89.511 Acquired absence of right leg below knee; Z79.4 Long term (current) use of insulin
CPT/HCPCS: 97597

== ENCOUNTER 2024-04-08 12:47 | Outpatient (CLI) | payer OTHER, MEDICARE, BC, SELFPAY ==
--- OUTSIDE RECORDS SUMMARY | 2024-04-08 12:49 | XMS_ITS | Continuity of Care Document ---
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 It does not include entries that were removed or entered in error. Problem Status Onset Date Problem Type Date of Resolution Comments Source Exposure to potentially hazardous substance ([facility] [id number]) Active 07/20/19 24 Condition Jul 20, 2023 Entered By: MECHELLE DEMPSEY Comment: [facility] Documentation Initiative [facility] CAD - Coronary Artery Disease ([facility] [id number]) Active Condition [place] ([facility]) CHF - Congestive Heart Failure ([facility] [id number]) Active Condition [facility]) Diabetes Mellitus Type 2 ([facility] [id number]) Active Condition [place] ([facility]) History of amputation of right leg through tibia and fibula Active Condition [place] ([facility]) HTN - Hypertension ([facility] [id number]) Active Condition [place] ([facility]) Hyperlipidemia ([facility] [id number]) Active Condition [facility]) Hypothyroidism ([facility] [id number]) Active Condition [place] ([facility]) Long-term current use of insulin Active Condition [place] ([facility]) Peripheral neuropathy due to type 2 diabetes mellitus Active Condition [place] ([facility]) Diagnosis: ICD-10-CM R53.1 Weakness Active Diagnosis [facility] Diagnosis: ICD-10-CM Z89.511 Acquired absence of right leg below knee Active Diagnosis [facility] Diagnosis: ICD-10-CM Z65.8 Oth problems related to psychosocial circumstances Active Diagnosis [facility] Diagnosis: ICD-10-CM H90.3 Sensorineural hearing loss, bilateral Active Diagnosis [facility] Diagnosis: ICD-10-CM L89.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, stage 3 Active Diagnosis [facility]) Diagnosis: ICD-10-CM Z46.1 Encounter for fitting and adjustment of hearing aid Active Diagnosis [facility] Diagnosis: ICD-10-CM Z74.09 Other reduced mobility Active Diagnosis [place] ([facility]) Diagnosis: ICD-10-CM E11.9 Type 2 diabetes mellitus without complications Active Diagnosis [place] ([facility]) Diagnosis: ICD-10-CM I50.9 Heart failure, unspecified Active Diagnosis [place] ([facility]) Diagnosis: ICD-10-CM R26.89 Other abnormalities of [...] [facility] WOUND CARE ORDERS TOPICA L 02/16/2024 [id number] KATHY MURPHY 2022 40 [facility] CLOPIDOGREL BISULFATE 75MG TAB TAKE ONE [...] 90 UNITS/DA Y SUBCUT ANEOUS ACTIVE 03/12/2025 [id number] HENRIKRYAN Cason 2023 15 [facility] [...] Y SUBCUT ANEOUS DISCONT INUED (EDIT) 01/10/2025 [id number] HENRIKRYAN Cason 2023 10 [facility] [...] Y SUBCUT ANEOUS DISCONT INUED (EDIT) 11/08/2024 [id number] HENRIKRYAN Cason 2023 10 [facility] [...] Site Reaction Lot Number CVX Code 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 Comments Source COVID-19 ([employer]), MRNA, LNP-S, PF, NAVYA-SUCROSE, 30 MCG/0.3 ML (AGES 12+ YEARS) 2023 309 complet ed [facility] INFLUENZA, ADJUVANTED, TRIVALENT, PF 2023 168 complet ed [facility] COVID-19 ([employer]), MRNA, LNP-S, PF, NAVYA-SUCROSE, 30 MCG/0.3 ML (AGES 12+ YEARS) 2022 309 complet ed [facility] INFLUENZA, ADJUVANTED, QUADRIVALENT, PF 2022 205 complet ed [facility] RSV, BIVALENT, PROTEIN SUBUNIT RSVPREF, DILUENT RECONSTITUTED , 0.5 ML, PF 2022 305 complet ed [facility] INFLUENZA, HIGH-DOSE, QUADRIVALENT 1 2021 197 complet ed [facility] COVID-19 ([employer]ER[employer]), MRNA, LNP-S, BIVALENT, PF, 50 MCG/0.5 ML OR 25MCG/0.25 ML DOSE 1 2021 229 complet ed [facility] COVID-19 ([employer]), MRNA, LNP-S, PF, 100 MCG/0.5ML DOSE OR 50 MCG/0.25ML DOSE 2020 207 complet ed [facility] COVID-19 ([employer]), MRNA, LNP-S, PF, 30 MCG/0.3 ML DOSE 3 2020 208 complet ed [facility] INFLUENZA, HIGH-DOSE, QUADRIVALENT, PF 2020 197 complet ed [facility] INFLUENZA, UNSPECIFIED FORMULATION 2020 88 complet ed [facility] TDAP 2020 115 complet ed [employer], [id number] , exp-2022 and given VIS dated 12/17/2020 [place] ([facility]) ZOSTER RECOMBINANT 2 2020 187 complet ed [place] [facility] ([facility]) ZOSTER RECOMBINANT 1 2020 187 complet ed [place] ([facility]) COVID-19 ([employer]), MRNA, LNP-S, PF, 30 MCG/0.3 ML DOSE 2 2020 208 complet ed [facility] COVID-19 ([employer]), MRNA, LNP-S, PF, 30 MCG/0.3 ML DOSE 1 2020 208 complet ed [facility] INFLUENZA, ADJUVANTED, TRIVALENT, PF 2019 168 complet ed [facility] INFLUENZA, UNSPECIFIED FORMULATION 2019 88 complet ed [facility] INFLUENZA, HIGH-DOSE, TRIVALENT, PF 2018 135 complet ed [facility] INFLUENZA, ADJUVANTED, TRIVALENT, PF 2017 168 complet ed [facility] INFLUENZA, UNSPECIFIED FORMULATION 2016 88 complet ed [facility] INFLUENZA, HIGH-DOSE, TRIVALENT, PF 2014 135 complet ed [facility] PNEUMOCOCCAL CONJUGATE PCV 13 2014 133 complet ed [facility] INFLUENZA, SPLIT VIRUS, TRIVALENT, PRESERVATIVE 2012 141 complet ed [facility] INFLUENZA, SPLIT VIRUS, TRIVALENT, PRESERVATIVE 2011 141 complet ed [facility] INFLUENZA, SPLIT VIRUS, TRIVALENT, PF 2010 140 complet ed [facility] PNEUMOCOCCAL POLYSACCHARID E PPV23 2010 33 complet ed [facility] INFLUENZA, SPLIT VIRUS, TRIVALENT, PRESERVATIVE 2009 141 complet ed [facility] INFLUENZA, SPLIT VIRUS, TRIVALENT, PF 2008 140 complet ed [facility] INFLUENZA, SPLIT VIRUS, TRIVALENT, PRESERVATIVE 2007 141 complet ed [facility] INFLUENZA, SPLIT VIRUS, TRIVALENT, PRESERVATIVE 2006 141 complet ed [facility] INFLUENZA, SPLIT VIRUS, TRIVALENT, PRESERVATIVE 2005 141 complet ed [facility] PNEUMOCOCCAL POLYSACCHARID E PPV23 2005 33 complet ed [facility] TD (ADULT), 5 LF TETANUS TOXOID, PRESERVATIVE FREE, ADSORBED 2005 113 complet ed [facility] INFLUENZA, SPLIT VIRUS, TRIVALENT, PRESERVATIVE 2004 141 complet ed [facility] INFLUENZA, SPLIT VIRUS, TRIVALENT, PRESERVATIVE 2003 141 complet ed [facility] INFLUENZA, SPLIT VIRUS, TRIVALENT, PRESERVATIVE 2002 [...] Jan 23, 2023 02:00 PM Reporting Lab: [place] [phone] Performing Lab: [address] ([facility]) BASIC METABOLIC PANEL+MG CREATININE [MASS/VOLUM E] IN SERUM OR PLASMA 1.2 mg/dL 0.7 - 1.2 01/23 Specimen Type: PLASMA No comment entered. Ordering Provider: AILIN CHESTER Report Released Date/Time: Jan 23, 2023 02:00 PM Reporting Lab: [place] [id number] Performing Lab: [address] ([facility]) BASIC METABOLIC PANEL+MG UREA NITROGEN [MASS/VOLUM E] IN SERUM OR PLASMA 35 mg/dL 8 - 26 01/23 H Specimen Type: PLASMA No comment entered. Ordering Provider: AILIN CHESTER Report Released Date/Time: Jan 23, 2023 02:00 PM Reporting Lab: [facility] [address] Performing Lab: [address] ([facility]) BASIC METABOLIC PANEL+MG GLUCOSE [MASS/VOLUM E] IN SERUM OR PLASMA 239 mg/dL 70 - 100 01/23 H Specimen Type: PLASMA No comment entered. Ordering Provider: AILIN CHESTER Report Released Date/Time: Jan 23, 2023 02:00 PM Reporting Lab: [place] [phone] Performing Lab: [address] ([facility]) BASIC METABOLIC PANEL+MG SODIUM [MOLES/VOLU ME] IN SERUM OR PLASMA 140 mmol/L 136 - 145 01/23 Specimen Type: PLASMA No comment entered. Ordering Provider: AILIN CHESTER Report Released Date/Time: Jan 23, 2023 02:00 PM Reporting Lab: [facility] [address] Performing Lab: [address] [place] ([facility]) BASIC METABOLIC PANEL+MG POTASSIUM [MOLES/VOLU ME] IN SERUM OR PLASMA 5.1 mmol/L 3.5 - 5.1 01/23 Specimen Type: PLASMA No comment entered. Ordering Provider: AILIN CHESTER Report Released Date/Time: Jan 23, 2023 02:00 PM Reporting Lab: [address] Performing Lab: [place] [phone] [place] ([facility]) BASIC METABOLIC PANEL+MG CHLORIDE [MOLES/VOLU ME] IN SERUM OR PLASMA 109 mmol/L 98 - 107 01/23 H Specimen Type: PLASMA No comment entered. Ordering Provider: AILIN CHESTER Report Released Date/Time: Jan 23, 2023 02:00 PM Reporting Lab: [address] Performing Lab: [address] ([facility]) BASIC METABOLIC PANEL+MG CARBON DIOXIDE, TOTAL [MOLES/VOLU ME] IN SERUM OR PLASMA 21 mmol/L 22 - 29 01/23 L Specimen Type: PLASMA No comment entered. Ordering Provider: AILIN CHESTER Report Released Date/Time: Jan 23, 2023 02:00 PM Reporting Lab: [place] [phone] Performing Lab: [place] [phone] [place] ([facility]) BASIC METABOLIC PANEL+MG CALCIUM [MASS/VOLUM E] IN SERUM OR PLASMA 9.4 mg/dL 8.4 - 10.2 01/23 Specimen Type: PLASMA No comment entered. Ordering Provider: AILIN CHESTER Report Released Date/Time: Jan 23, 2023 02:00 PM Reporting Lab: [facility] [address] Performing Lab: [facility] [phone] [place] [address] ([facility]) BASIC METABOLIC PANEL+MG MAGNESIUM [MASS/VOLUM E] IN SERUM OR PLASMA 1.7 mg/dL 1.6 - 2.6 01/23 Specimen Type: PLASMA No comment entered. Ordering Provider: AILIN CHESTER Report Released Date/Time: Jan 23, 2023 02:00 PM Reporting Lab: [facility] [address] Performing Lab: [facility] [address] [place] ([facility]) BASIC METABOLIC PANEL+MG ANION GAP IN SERUM OR PLASMA 10 mmol/L 5 - 15 01/23 Specimen Type: PLASMA No comment entered. Ordering Provider: AILIN CHESTER Report Released Date/Time: Jan 23, 2023 02:00 PM Reporting Lab: [place] [phone] Performing Lab: [place] [phone] [place] [address] ([facility]) BASIC METABOLIC PANEL+MG GLOMERULAR FILTRATION RATE/1.73 SQ M.PREDICTED [VOLUME RATE/AREA] IN SERUM, PLASMA OR BLOOD BY CREATININE- BASED FORMULA (CKD-EPI 2020) 61 60 01/23 Specimen Type: PLASMA No comment entered. Ordering Provider: AILIN CHESTER Report Released Date/Time: Jan 23, 2023 02:00 PM Reporting Lab: [place] [phone] Performing Lab: [place] [phone] [place] ([facility]) MICROALBU MIN/CREAT ININE RATIO URINE CREATININE [MASS/VOLUM E] IN URINE 132.8 mg/dL 58.0 - 161.0 11/23 Specimen Type: URINE No comment entered. Ordering Provider: AILIN CHESTER Report Released Date/Time: Nov 23, 2022 11:58 AM Reporting Lab: [place] [phone] Performing Lab: [place] [phone] [place] [address] ([facility]) MICROALBU MIN/CREAT ININE RATIO URINE MICROALBUMI N/CREATININ E [MASS RATIO] IN URINE 28.0 mg/g{c reat} 11/23 Specimen Type: URINE No comment entered. Ordering Provider: AILIN CHESTER Report Released Date/Time: Nov 23, 2022 11:58 AM Reporting Lab: [place] [phone] Performing Lab: [facility] [phone] [place] [address] ([facility]) MICROALBU MIN/CREAT ININE RATIO URINE MICROALBUMI N [MASS/VOLUM E] IN URINE 37.2 mg/L 11/23 H Specimen Type: URINE No comment entered. Ordering Provider: AILIN CHESTER Report Released Date/Time: Nov 23, 2022 11:58 AM Reporting Lab: [facility] [address] Performing Lab: [facility] [address] [place] ([facility]) LIPID PANEL,NON -FASTING CHOLESTEROL [MASS/VOLUM E] IN SERUM OR PLASMA 130 mg/dL 11/23 Specimen Type: PLASMA No comment entered. Ordering Provider: AILIN CHESTER Report Released Date/Time: Nov 23, 2022 11:58 AM Reporting Lab: [facility] [address] Performing Lab: [facility] [address] [place] ([facility]) LIPID PANEL,NON -FASTING CHOLESTEROL IN HDL [MASS/VOLUM E] IN SERUM OR PLASMA 39 mg/dL 11/23 L Specimen Type: PLASMA No comment entered. Ordering Provider: AILIN CHESTER Report Released Date/Time: Nov 23, 2022 11:58 AM Reporting Lab: [facility] [address] Performing Lab: [facility] [address] [place] ([facility]) LIPID PANEL,NON -FASTING CHOLESTEROL IN LDL [MASS/VOLUM E] IN SERUM OR PLASMA BY CALCULATION 73 mg/dL 11/23 Specimen Type: PLASMA No comment entered. Ordering Provider: AILIN CHESTER Report Released Date/Time: Nov 23, 2022 11:58 AM Reporting Lab: [facility] [address] Performing Lab: [facility] [address] [place] ([facility]) LIPID PANEL,NON -FASTING CHOLESTEROL IN VLDL [MASS/VOLUM E] IN SERUM OR PLASMA BY CALCULATION 18 mg/dL 11/23 Specimen Type: PLASMA No comment entered. Ordering Provider: AILIN CHESTER Report Released Date/Time: Nov 23, 2022 11:58 AM Reporting Lab: [facility] [address] Performing Lab: [facility] [address] [place] ([facility]) LIPID PANEL,NON -FASTING CHOLESTEROL NON HDL [MASS/VOLUM E] IN SERUM OR PLASMA 91 mg/dL 11/23 Specimen Type: PLASMA No comment entered. Ordering Provider: AILIN CHESTER Report Released Date/Time: Nov 23, 2022 11:58 AM Reporting Lab: [place] [phone] Performing Lab: [address] ([facility]) LIPID PANEL,NON -FASTING TRIGLYCERID E [MASS/VOLUM E] IN SERUM OR PLASMA 92 mg/dL 11/23 Specimen Type: PLASMA No comment entered. Ordering Provider: AILIN CHESTER Report Released Date/Time: Nov 23, 2022 11:58 AM Reporting Lab: [place] [address] Performing Lab: [address] ([facility]) TSH W/REFLEX TO FREE T4 THYROTROPIN [UNITS/VOLU ME] IN SERUM OR PLASMA 4.59 u[IU]/ mL 0.35 - 4.94 11/23 Specimen Type: PLASMA No comment entered. Ordering Provider: AILIN CHESTER Report Released Date/Time: Nov 23, 2022 11:58 AM Reporting Lab: [address] Performing Lab: [address] ([facility]) CBC LEUKOCYTES [#/VOLUME] IN BLOOD BY AUTOMATED COUNT 10.80 10*3/u L 4.0 - 11.0 11/23 Specimen Type: BLOOD No comment entered. Ordering Provider: AILIN CHESTER Report Released Date/Time: Nov 23, 2022 11:58 AM Reporting Lab: [place] [phone] Performing Lab: [address] ([facility]) CBC ERYTHROCYTE S [#/VOLUME] IN BLOOD BY AUTOMATED COUNT 3.87 10*6/u L 4.6 - 6.2 11/23 L Specimen Type: BLOOD No comment entered. Ordering Provider: AILIN CHESTER Report Released Date/Time: Nov 23, 2022 11:58 AM Reporting Lab: [place] [phone] Performing Lab: [address] ([facility]) CBC HEMOGLOBIN [MASS/VOLUM E] IN BLOOD 12.1 g/dL 13.5 - 17.9 11/23 L Specimen Type: BLOOD No comment entered. Ordering Provider: AILIN CHESTER Report Released Date/Time: Nov 23, 2022 11:58 AM Reporting Lab: [facility] [address] Performing Lab: [facility] [address] [place] ([facility]) CBC HEMATOCRIT [VOLUME FRACTION] OF BLOOD BY AUTOMATED COUNT 37.5 41 - 54 11/23 L Specimen Type: BLOOD No comment entered. Ordering Provider: AILIN CHESTER Report Released Date/Time: Nov 23, 2022 11:58 AM Reporting Lab: [place] [phone] Performing Lab: [address] [place] [address] ([facility]) CBC MCV [ENTITIC VOLUME] BY AUTOMATED COUNT 96.9 fL 80 - 100 11/23 Specimen Type: BLOOD No comment entered. Ordering Provider: AILIN CHESTER Report Released Date/Time: Nov 23, 2022 11:58 AM Reporting Lab: [facility] [address] Performing Lab: [facility] [phone] [place] [address] ([facility]) CBC MCH [ENTITIC MASS] BY AUTOMATED COUNT 31.3 pg 27 - 33 11/23 Specimen Type: BLOOD No comment entered. Ordering Provider: AILIN CHESTER Report Released Date/Time: Nov 23, 2022 11:58 AM Reporting Lab: [facility] [address] Performing Lab: [facility] [address] [place] ([facility]) CBC MCHC [MASS/VOLUM E] BY AUTOMATED COUNT 32.3 g/dL 32.0 - 37.5 11/23 Specimen Type: BLOOD No comment entered. Ordering Provider: AILIN CHESTER Report Released Date/Time: Nov 23, 2022 11:58 AM Reporting Lab: [facility] [address] Performing Lab: [place] [phone] [place] ([facility]) CBC PLATELETS [#/VOLUME] IN BLOOD BY AUTOMATED COUNT 293 10*3/u L 150 - 400 11/23 Specimen Type: BLOOD No comment entered. Ordering Provider: AILIN CHESTER Report Released Date/Time: Nov 23, 2022 11:58 AM Reporting Lab: [facility] [address] Performing Lab: [facility] [address] [place] ([facility]) CBC PLATELET MEAN VOLUME [ENTITIC VOLUME] IN BLOOD BY AUTOMATED COUNT 10.3 fL 7.4 - 10.4 11/23 Specimen Type: BLOOD No comment entered. Ordering Provider: AILIN CHESTER Report Released Date/Time: Nov 23, 2022 11:58 AM Reporting Lab: [address] Performing Lab: [address] ([facility]) CBC ERYTHROCYTE DISTRIBUTIO N WIDTH [RATIO] BY AUTOMATED COUNT 13.2 11.5 - 14.5 11/23 Specimen Type: BLOOD No comment entered. Ordering Provider: AILIN CHESTER Report Released Date/Time: Nov 23, 2022 11:58 AM Reporting Lab: [facility] [address] Performing Lab: [facility] [phone] [place] [address] ([facility]) HEMOGLOBI N A1C HEMOGLOBIN A1C/HEMOGLO BIN.TOTAL [...] 11:58 AM Reporting Lab: [facility] [address] Performing Lab: [facility] [address] [place] ([facility]) COMPREHEN SIVE METABOLIC PANEL+MG CREATININE [MASS/VOLUM E] IN SERUM OR PLASMA 1.2 mg/dL 0.7 - 1.2 11/23 Specimen Type: PLASMA No comment entered. Ordering Provider: AILIN CHESTER Report Released Date/Time: Nov 23, 2022 11:58 AM Reporting Lab: [facility] [address] Performing Lab: [facility] [address] [place] ([facility]) COMPREHEN SIVE METABOLIC PANEL+MG UREA NITROGEN [MASS/VOLUM E] IN SERUM OR PLASMA 34 mg/dL 8 - 26 11/23 H Specimen Type: PLASMA No comment entered. Ordering Provider: AILIN CHESTER Report Released Date/Time: Nov 23, 2022 11:58 AM Reporting Lab: [facility] [address] Performing Lab: [facility] [address] [place] ([facility]) COMPREHEN SIVE METABOLIC PANEL+MG GLUCOSE [MASS/VOLUM E] IN SERUM OR PLASMA 54 mg/dL 70 - 100 11/23 L Specimen Type: PLASMA No comment entered. Ordering Provider: AILIN CHESTER Report Released Date/Time: Nov 23, 2022 11:58 AM Reporting Lab: [facility] [address] Performing Lab: [facility] [address] [place] ([facility]) COMPREHEN SIVE METABOLIC PANEL+MG SODIUM [MOLES/VOLU ME] IN SERUM OR PLASMA 143 mmol/L 136 - 145 11/23 Specimen Type: PLASMA No comment entered. Ordering Provider: AILIN CHESTER Report Released Date/Time: Nov 23, 2022 11:58 AM Reporting Lab: [facility] [address] Performing Lab: [facility] [address] [place] ([facility]) COMPREHEN SIVE METABOLIC PANEL+MG POTASSIUM [MOLES/VOLU ME] IN SERUM OR PLASMA 4.4 mmol/L 3.5 - 5.1 11/23 Specimen Type: PLASMA No comment entered. Ordering Provider: AILIN CHESTER Report Released Date/Time: Nov 23, 2022 11:58 AM Reporting Lab: [facility] [address] Performing Lab: [facility] [address] [place] ([facility]) COMPREHEN SIVE METABOLIC PANEL+MG CHLORIDE [MOLES/VOLU ME] IN SERUM OR PLASMA 107 mmol/L 98 - 107 11/23 Specimen Type: PLASMA No comment entered. Ordering Provider: AILIN CHESTER Report Released Date/Time: Nov 23, 2022 11:58 AM Reporting Lab: [facility] [address] Performing Lab: [facility] [address] [place] ([facility]) COMPREHEN SIVE METABOLIC PANEL+MG CARBON DIOXIDE, TOTAL [MOLES/VOLU ME] IN SERUM OR PLASMA 23 mmol/L 22 - 29 11/23 Specimen Type: PLASMA No comment entered. Ordering Provider: AILIN CHESETR Report Released Date/Time: Nov 23, 2022 11:58 AM Reporting Lab: [place] [phone] Performing Lab: [place] [phone] [place] ([facility]) COMPREHEN SIVE METABOLIC PANEL+MG CALCIUM [MASS/VOLUM E] IN SERUM OR PLASMA 9.7 mg/dL 8.4 - 10.2 11/23 Specimen Type: PLASMA No comment entered. Ordering Provider: AILIN CHESTER Report Released Date/Time: Nov 23, 2022 11:58 AM Reporting Lab: [facility] [address] Performing Lab: [facility] [address] [place] ([facility]) COMPREHEN SIVE METABOLIC PANEL+MG PROTEIN [MASS/VOLUM E] IN SERUM OR PLASMA 7.2 g/dL 6.0 - 8.3 11/23 Specimen Type: PLASMA No comment entered. Ordering Provider: AILIN CHESTER Report Released Date/Time: Nov 23, 2022 11:58 AM Reporting Lab: [facility] [address] Performing Lab: [facility] [address] [place] ([facility]) COMPREHEN SIVE METABOLIC PANEL+MG ALBUMIN [MASS/VOLUM E] IN SERUM OR PLASMA 4.1 g/dL 3.5 - 5.2 11/23 Specimen Type: PLASMA No comment entered. Ordering Provider: AILIN CHESTER Report Released Date/Time: Nov 23, 2022 11:58 AM Reporting Lab: [facility] [address] Performing Lab: [facility] [address] [place] ([facility]) COMPREHEN SIVE METABOLIC PANEL+MG BILIRUBIN.T OTAL [MASS/VOLUM E] IN SERUM OR PLASMA 0.5 mg/dL 0.2 - 1.2 11/23 Specimen Type: PLASMA No comment entered. Ordering Provider: AILIN CHESTER Report Released Date/Time: Nov 23, 2022 11:58 AM Reporting Lab: [facility] [address] Performing Lab: [facility] [address] [place] ([facility]) COMPREHEN SIVE METABOLIC PANEL+MG MAGNESIUM [MASS/VOLUM E] IN SERUM OR PLASMA 1.4 mg/dL 1.6 - 2.6 11/23 L Specimen Type: PLASMA No comment entered. Ordering Provider: AILIN CHESTER Report Released Date/Time: Nov 23, 2022 11:58 AM Reporting Lab: [facility] [address] Performing Lab: [facility] [address] [place] ([facility]) COMPREHEN SIVE METABOLIC PANEL+MG ANION GAP IN SERUM OR PLASMA 13 mmol/L 5 - 15 11/23 Specimen Type: PLASMA No comment entered. Ordering Provider: AILIN CHESTER Report Released Date/Time: Nov 23, 2022 11:58 AM Reporting Lab: [facility] [address] Performing Lab: [facility] [address] [place] ([facility]) COMPREHEN SIVE METABOLIC PANEL+MG ALKALINE PHOSPHATASE [ENZYMATIC ACTIVITY/VO LUME] IN SERUM OR PLASMA 87 U/L 40 - 150 11/23 Specimen Type: PLASMA No comment entered. Ordering Provider: AILIN CHESTER Report Released Date/Time: Nov 23, 2022 11:58 AM Reporting Lab: [facility] [address] Performing Lab: [facility] [address] [place] ([facility]) COMPREHEN SIVE METABOLIC PANEL+MG ALANINE AMINOTRANSF ERASE [ENZYMATIC ACTIVITY/VO LUME] IN SERUM OR PLASMA 28 U/L 11/23 Specimen Type: PLASMA No comment entered. Ordering Provider: AILIN CHESTER Report Released Date/Time: Nov 23, 2022 11:58 AM Reporting Lab: [facility] [address] Performing Lab: [facility] [address] [place] ([facility]) COMPREHEN SIVE METABOLIC PANEL+MG ASPARTATE AMINOTRANSF ERASE [ENZYMATIC ACTIVITY/VO LUME] IN SERUM OR PLASMA 33 U/L 11/23 Specimen Type: PLASMA No comment entered. Ordering Provider: AILIN CHESTER Report Released Date/Time: Nov 23, 2022 11:58 AM Reporting Lab: [facility] [id number] Performing Lab: [facility] [address] [place] ([facility]) COMPREHEN SIVE METABOLIC PANEL+MG GLOMERULAR FILTRATION RATE/1.73 SQ M.PREDICTED [VOLUME RATE/AREA] IN SERUM, PLASMA OR BLOOD BY CREATININE- BASED FORMULA (CKD-EPI 2020) 61 11/23 Specimen Type: PLASMA No comment entered. Ordering Provider: AILIN CHESTER Report Released Date/Time: Nov 23, 2022 11:58 AM Reporting Lab: [facility] [id number] Performing Lab: [facility] [id number] [place] ([facility]) Vital Signs Combined list of inpatient [...] list of: 1) Encounters from Department of [facility] facilities going back up to thelast 18 months. 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 Location Location Details Encounter Type Encounter Number Reason For Visit Attending Provider ADM Date DC Date Status Disposition Source [facility] [facility] Outpatient Encounter [id number] [facility] [id number] 11/11 [facility] Outpatient Encounter [id number] ZARI POWER 11/16 [facility] Outpatient Encounter [id number] 11/21 [facility] ([facility] OFFICE O/P EST MOD 30-39 MIN [id number] Diagnos is: ICD-10- CM Z00.00 Encntr for general adult medical exam w/o abnorma l finding s
CANDELARIO CHESTER 11/23 [facility] GAIT TRAINING THERAPY [id number] Diagnos is: ICD-10- CM R26.89 Other abnorma lities of gait and mobilit y
TRINOOMAYRA MCDERMOTT V 11/23 [facility] [place] [facility] Outpatient Encounter [id number] SA TRINO RA R 12/11 [place] [facility] [place] [facility] Outpatient Encounter [id number] 12/25 [place] [facility] [place] [facility] Outpatient Encounter [id number] SA TRINO RA R 12/28 [place] [facility] [place] [facility] Outpatient Encounter [id number] 01/05 [place] [facility] [place] [facility] Outpatient Encounter [id number] 01/11 [place] [facility] [place] [facility] Outpatient Encounter [id number] 01/16 [place] [facility] OFFICE O/P EST HI 40-54 MIN [id number] Diagnos is: ICD-10- CM I50.9 Heart failure , unspeci fied
CANDELARIO CHESTER 01/23 [facility] [place] [facility] Outpatient Encounter [id number] Marcus POTTS I 01/24 [place] [facility] [place] [facility] Outpatient Encounter [id number] Danica TORRE 02/05 [place] [facility] [place] [facility] Outpatient Encounter [id number] 02/09 [place] [facility] [place] [facility] Outpatient Encounter [id number] Danica TORRE 02/09 [place] [facility] [place] [facility] Outpatient Encounter [id number] 02/14 [place] [facility] [place] [facility] Outpatient Encounter [id number] 02/15 [place] [facility] [place] [facility] Outpatient Encounter [id number] 02/19 [place] [facility] [place] [facility] Outpatient Encounter [id number] 02/20 [place] [facility] [place] [facility] Outpatient Encounter [id number] 02/20 [place] [facility] [place] [facility] Outpatient Encounter [id number] 02/20 [place] [facility] [place] [facility] Outpatient Encounter [id number] 02/20 [place] [facility] [place] [facility] Outpatient Encounter [id number] 02/21 [place] [facility] [place] [facility] QNHP OL DIG ASSMT&MGMT 5-10 [id number] Diagnos is: ICD-10- CM E11.9 Type 2 diabete s mellitu s without complic ations< br/> HARDER,SIVA LY 02/22 [place] [facility] PRO PHONE CALL 11-20 MIN [id number] Diagnos is: ICD-10- CM I50.9 Heart failure , unspeci fied
JERMAINE ALCANTAR ANDMARIA INES M 02/23 [facility] [place] [facility] Outpatient Encounter [id number] 02/26 [place] [facility] [place] [facility] Outpatient Encounter [id number] 03/01 [place] [facility] [place] [facility] Outpatient Encounter [id number] 03/05 [place] [facility] [place] [facility] Outpatient Encounter [id number] SA RA Sandra JAMESON 03/09 [place] [facility] [place] [facility] Outpatient Encounter [id number] 03/14 [place] [facility] [place] [facility] Outpatient Encounter [id number] TRINO R 04/12 [facility] [place] [facility] Outpatient Encounter [id number] [facility] 04/16 [facility] [place] [facility] Outpatient Encounter [id number] [facility] R 05/01 [facility] [place] [facility] Outpatient Encounter [id number] 07/11 [facility] [place] [facility] Outpatient Encounter [id number] [facility] [place] [facility] Outpatient Encounter [id number] 07/12 [facility] PRO PHONE CALL 5-10 MIN [id number] Diagnos is: ICD-10- CM 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
VIV BARFIELD 07/19 [facility] HEARING AID REPAIR/MOD IFYING [id number] Diagnos is: ICD-10- CM 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
CARY CORCORAN 08/09 [facility] HEARING AID FITTING/CH ECKING [id number] Diagnos is: ICD-10- CM 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
Sy MAKI 09/17 [facility] [place] [facility] Outpatient Encounter [id number] 10/17 [facility] ([facility]) OFFICE O/P EST HI 40 MIN [id number] Diagnos is: ICD-10- CM E11.9 Type 2 diabete s mellitu s without complic ations< br/> CANDELARIO CHESTER 11/07 [facility] PT EVAL MOD COMPLEX 30 MIN [id number] Diagnos is: ICD-10- CM Z74.09 Other reduced mobilit y
OMAYRA JAMESON NTER V 12/17 [facility] Outpatient Encounter [id number] 01/03 [facility] [place] [facility] Outpatient Encounter [id number] 01/09 [facility] WHEELCHAIR MNGMENT TRAINING [id number] Diagnos is: ICD-10- CM R53.1 Weaknes s
ANDERS EATON R 01/29 [facility] Outpatient Encounter [id number] 01/30 [facility] HEARING AID CHECK BOTH EARS [id number] Diagnos is: ICD-10- CM Z46.1 Encount er for fitting and adjustm ent of hearing aid<br/ > SUZY BLACK AEL F 02/01 [facility] Outpatient Encounter [id number] SA TRINO RA R 02/11 [facility] [place] [facility] Outpatient Encounter [id number] 02/25 [facility] [place] [facility] Outpatient Encounter [id number] JYOTSNA SMART 03/10 [facility] OFFICE O/P EST MOD 30 MIN [id number] Diagnos is: ICD-10- CM L89.623 Pressur e ulcer of left heel, stage 3
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
CIARA BALDERRAMA J 03/20 [facility] HEARING AID REPAIR/MOD IFYING [id number] Diagnos is: ICD-10- CM 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
KEIRA JEAN 04/01 [facility] WHEELCHAIR MNGMENT TRAINING [id number] Diagnos is: ICD-10- CM R53.1 Weaknes s
ANDERS EATON R 04/07 [facility] Social History Combined list of available smoking, tobacco, and other social history from [facility] of Defense and [facility] Affairs facilities. Social History Type Response Date Comment [facility] e Tobacco smoking status [facility] VA-TOBACCO FORMER USER 11/08/2023 [facility] History of tobacco use VA-TOBACCO QUIT 1 5 YRS OR MORE 11/08/2023 [facility] History of tobacco use VA-TOBACCO FORMER USER 11/23/2022 [facility] History of tobacco use VA-TOBACCO QUIT 1 5 YRS OR MORE 11/29/2021 [facility] History of tobacco use VA-TOBACCO FORMER USER 10/21/2020 [facility])
--- OUTSIDE RECORDS SUMMARY | 2024-04-08 12:51 | XMS_ITS | Encounter Summary ---
Author Name [facility] [place] [facility] Address [address] [place] [address] Care Team Providers Care Tech Ed/Woodshop Teacher Name Role Phone JIMENEZ CHESTER Primary [...] Cherry's Name Patient's Relationship to Policy Cherry [facility] (WNR) MEDICARE ADVANTAGE [facility] (WNR) May 14, 2020 [id number] [phone] PITER CASSA ERD PATIENT Selected Encounter This section includes the information on record at [place] for the Encounter. Date/Time Encounter Type Encounter Description Reason Provider Source Apr 07, 2024 10:30 AM WHEELCHAIR MNGMENT TRAINING WHEELCHAIR & ADVAN MOBILITY ICD-10-CM R53.1 Weakness SUSANNA EATON [facility] Encounter Template Text not used by [place] Assessments - Encounter Diagnoses This section includes the primary and secondary diagnoses documented for the Encounter. Date/Time Primary/Secondary Diagnosis Diagnosis Name Provider Source Apr 07, 2024 02:53 PM PRIMARY Weakness SUSANNA EATON [facility] Encounter Notes: All associated encounter notes This section contains the clinical notes associated to the Encounter. Date/Time Encounter Note(s) Provider Source Apr 07, 2024 02:40 PM OCCUPATIONAL THERA PY DISCHARGE NOTE: LOCAL TITLE: OT-DISCHARGE NOTE STANDARD TITLE: OCCUPATIONAL THERAPY DISCHARGE NOTE DATE OF NOTE: APR 07, 2024@14:40 ENTRY DATE: APR 07, 2024@14:40:21 AUTHOR: SUSANNA EATON EXP COSIGNER: URGENCY: STATUS: COMPLETED OT-DISCHARGE NOTE Has ADDENDA OCCUPATONAL THERAPY ADVANCED MOBILITY FOLLOW-UP/DISCHARGE Referring provider: CINTHIA JAMESON V Diagnosis for which patient is referred to OT: Weakness Consult request: power mobility Precautions: R BKA Encounters: -Wheelchair management (4): 65m ASSESSMENT: Vet is a 83 yo male referred to custom seating and mobility clinic for assessment of: power mobility. The lives with his in a single family home with 1 step to enter and all cares met on the main floor. He transfers with Mod I, is dependent on a standard MWC for mobility, and had a recent buttocks pressure injury. A midwheel drive PWC was recommended with power tilt to assist with pressure reduction and pelvic positioning. Power elevate was also recommended for transfers and functional reach. Session today completed fitting, training, and issuance of the new Quantum Stretto with power tilt and elevate. The demonstrated safety with operation with reductions to total speed, acceleration, turn sensitivity, reverse speed, and turn speed. His was also present throughout for training and will assist with re-enforcing joystick operation. At the end of the session, the PWC was brought back down to prosthetics line-up at the end of the visit for vendor pick-up for vehicle securement. No further cares identified at this time. ISSUED: -Item: Quantum Stretto (16x18, power tilt and elevate, Hayder Comfort SPP 2 cushion) -Vendor: [employer] -Quote #: CPQ - [id number] -Total weight: 398# -Serial #: [id number] PLAN: Goal to evaluate for advanced mobility was met. No further advanced mobility needs are identified at this time. Vet is discharged from OP advanced mobility clinic. SHORT TERM GOAL: 1. Vet will complete trial of power mobility demonstrating safety with use. - MET 2. Vet will complete final fitting, trial, and issuance of power mobility in- clinic demonstrating improved posturing, pain reduction, pressure reduction, and verbalize understanding of safety and proper maintenance. -MET EDUCATION ON TREATMENT PLAN: Patient indicates readiness to learn, verbalizes understanding, agreement and satisfaction with the treatment plan. Denies further questions. CURRENT MEDICAL HISTORY: CAD - Coronary Artery Disease (SCT 27442Bmgclwyz Mellitus Type 2 (SCT 76446316) HTN - Hypertension (SCT 98892176) Peripheral neuropathy due to type 2 diabetes mellitus (SCT 1853769327427) Long-term current use of insulin (SCT 71Hyperlipidemia (SCT 89362078) CHF - Congestive Heart Failure (SCT 4234Exposure to potentially hazardous substance (SCT 894722481111653) Hypothyroidism (SCT 02137757) History of amputation of right leg through tibia and fibula (SCT 386767904427615) SUBJECTIVE: Identified goal(s) with wheelchair use: -Take [...] out to eat. Current Equipment (note if [place] issued or not): MWC provided from Medicare and 4WW provided from [place] Home accessibility: -All cares met on main floor -Front door (primary) -Unheated 3 car garage PRIOR LEVEL OF INDEPENDENCE: Vet/ reports: -Transferring: Mod I - present for stability as needed -Mobility: -In-home: MWC use primarily in-home w/ self-propulsion -Community: MWC with caregiver propulsion -Falls: 1 fall (slide off of bed after STR stay) -Driving: Dependent -2022 bright box XT5 - only drives currently Seating and mobility equipment: -[employer] Tracer SX5 25.5 handrim to handrim total width (Medicare obtained) -~2 foam cushion, elements basic foam backrest OBJECTIVE: Vet arrives to session today seated in with present. Slide board transfer with 24 therapy slide board. Vet noted satisfaction with length as his current at home is 30. Requested ordering and a consult was placed for home issuance. Vet demonstrated delayed processing during education on the joystick operation, although operated the PWC safely throughout the visit with reductions to total speed, acceleration, turn sensitivity, reverse speed, and turn speed. Seat depth increased by ~1.5 to decrease popliteal clearance with posterior pelvic tilt. Discussed charging, maintenance, power features, and safe transport. Vet/ noted understanding. PWC was jacki back down to prosthetics line-up at the end of the visit for vendor pick-up for vehicle securement. Measurements: -Height: 69 in [175.3 cm] (11/08/2023 [...] the head. Take measurement behind the individual. Seated Posture: -Obliquity: no noted concerns -Rotation: [...] with permission. All rights reserved. /riccardo/ Susanna Eaton, OTR/Yousuf, ATP Supervisory Occupational Therapist Signed: 04/07/2024 14:53 04/07/2024 ADDENDUM STATUS: COMPLETED SYSTEMS SCREEN Relevant past medical/surgical history and personal factors impacting rehab: ---Any recent falls/trauma, worsening balance/coordination, dizziness/lightheadedness/emelyn ting, blurred vision, nausea/vomiting? No ---Red Flags-- Personal history of cancer: none Progressive weakness: denies Unexplained weight loss: denies Loss of bowel/bladder control: denies Recent fevers, chills, infections: denies --Mental Health screen-- Patient Health Questionnaire-2 (PHQ-2)Over the last 2 weeks, how often have you been bothered by the following problems? 1. Little interest or pleasure in doing things Not at all (0 points) 2. Feeling down, depressed or hopeless Not at all (0 points) Total Score: PHQ-2 ranges from 0-6. A score of 3 points is the published cut-off If above screen positive, additional follow up was reviewed including-- n/a Generalized Anxiety Disorder 2-item (ARLEY-2) Over the last 2 weeks, how often have you been bothered by the following problems? 1. Feeling nervous, anxious or on edge Not at all (0 points) 2. Not being able to stop or control worrying Not at all (0 points) Total Score: ARLEY-2 ranges from 0-6. A score of 3 points is the published cut-off If above screen positive, additional follow up was reviewed including-- n/a PHYSICAL EXAMINATION ---Vitals--- Blood pressure: 109/65 Heart rate: 60 Oxygen saturation: 97 /es/ Susanna Eaton, OTR/L, ATP Supervisory Occupational Therapist Signed: 04/07/2024 14:55 SUSANNA EATON [facility]
--- OUTSIDE RECORDS SUMMARY | 2024-04-08 12:52 | XMS_ITS | Referral Summary ---
Author Organization [facility] Address [address] [place] [address] Care Team Providers Care Pad Machine Offbearer Name Role Phone None Reported, Pcp Primary Care Provider Unavail able Source Comments Patient records contain information from all sites at [facility]. For routine questions regarding patient records, call [phone] during business hours, M-F 8:00 AM - 5:00 PM Central Time. Record requests for emergency care only can be directed to [phone] at any time.[facility] Encounters Date Type Department Care Team Description 03/12/2024 Refill [facility] in [facility] [id number] [place] [address] Hannah Castillo, RAYNA, C.N.P. Med [...] guaze. Assessment & Plan (06/15/2023 4:18 PM FILTER CLOTH MAKER): The wound bed is clean. A thin layer of silver stat will be applied with a gauze. Change daily. 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 Left Heel: Area continues to improve. Wound measures [id number]. Edges well defined, attached and 100% re-epithelialized tissues. Granulation tissue is observed along the lining of the edges under the bed of slough/eschar. Eschar is soft but not mushy. Wound bed is still approx 95% or more of slough/eschar. Scant drainage with dressing change. Resident tolerated cares without any concerns. New wound orders as follows: Assessment & Plan (06/15/2023 4:10 PM FILTER CLOTH MAKER): 1: Gently cleanse area with NS. Pat dry. 2. Skin prep to gonsalo-wound. 3. Santyl to wound bed only. 4. Place gauze over wound. 5. cover with island dressing. 6. Change dressing daily. He may be discharged to home with home nursing for wound care . Assessment & Plan (06/01/2023 2:33 PM FILTER CLOTH MAKER): Continue wound care and have [facility] evaluate in one week. Dementia 05/20/2023 Overview (05/24/2023): No documented dementia or behaviors Assessment & Plan (05/24/2023 5:57 PM FILTER CLOTH MAKER): He has low hearing which could contribute to him not understanding Assessment & Plan (05/20/2023 4:20 PM FILTER CLOTH MAKER): Although initial BIMS testing scored 14, he has had episodes of what seems to be sundowning with strong suspicion of underlying dementia. Will have OT further evaluate. Hyperglycemia 04/22/2023 Overview (04/22/2023): Prior to recent hospitalization, insulin glargine dose was 25 units daily and short-acting insulin 10 units with meals. Assessment & Plan (05/24/2023 6:00 PM FILTER CLOTH MAKER): A1C 7.2 He will follow up with his PCP in [place] Assessment & Plan (04/22/2023 8:28 PM FILTER CLOTH MAKER): His appetite has been poor and he has been getting much less insulin than he is used to. His sugars however have been high. Will gradually increase mealtime insulin to 7 units. Previously on 10 units with meals. Usp (Current) Anticoagulant Treatment 08/2022 Overview (04/16/2023): On [...] side. Assessment & Plan (05/24/2023 5:18 PM FILTER CLOTH MAKER): He has a brace/cast on right BKA. He will need a standard wheelchair Mr. Woods was admitted to [facility] April 10 following BK [...] site Assessment & Plan (04/16/2023 7:55 PM FILTER CLOTH MAKER): Pain is well controlled. Stump care consists of washing with normal saline and dry. Cover with dry gauze or ABD b.i.d. he is wearing the knee brace to maintain extension in his working with therapies. He has follow-up with vascular surgery 05/11/2023. Assessment & Plan (04/12/2023 4:53 PM FILTER CLOTH MAKER): Patient and mentioned he is doing well [...] 75mcg. Assessment & Plan (06/05/2023 9:25 PM FILTER CLOTH MAKER): TSH value improved compared to prior value of 16.0 a month ago. Resident /nursing denied symptoms of hypothyroidism. Last T4 was 0.92 in April 2023. vice president network confirmed levothyroxine is given every morning (6am) without other medications. Therefore, we will increase levothyroxine 50mcg to 75mcg and rechecked TSH in 6 weeks. Nursing instructed to continue monitoring for symptoms of hypothyroidism and contact [place] provider if any concerns. Assessment & Plan (05/24/2023 5:24 PM FILTER CLOTH MAKER): Increase levothyroxine to 50 mcg daily. assisted may give two 25 mcg tablets to equal 50 mcg. He will be discharging in a week Assessment & Plan (04/23/2023 12:56 PM FILTER CLOTH MAKER): TSH will be done. He is currently on levothyroxine 25 mcg daily. Dose will need to be adjusted if TSH is elevated. Assessment & Plan (04/16/2023 7:56 PM FILTER CLOTH MAKER): Recheck TSH mid April. Assessment & Plan (04/12/2023 4:45 PM FILTER CLOTH MAKER): Continue levothyroxine. TSH reordered. 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 Assessment & Plan (04/12/2023 4:08 PM FILTER CLOTH MAKER): Plans to discharge back home. Patient remains [...] status Assessment & Plan (05/24/2023 5:15 PM FILTER CLOTH MAKER): He will be full code Assessment & Plan (01/17/2023 2:30 PM CDT): Continue full code status Hyperlipidemia 01/16/2023 Overview (05/24/2023): On atorvastatin Assessment & Plan (05/24/2023 6:01 PM FILTER CLOTH MAKER): Stay on statin Assessment & Plan (01/17/2023 2:35 PM CDT): Continue atorvastatin Assessment & Plan (01/17/2023 2:01 PM CDT): Continue atorvastatin Weakness General 01/16/2023 Overview (01/16/2023): This is multifactorial and related to recent hospitalizations and multiple comorbidities. Assessment & Plan (06/05/2023 9:26 PM FILTER CLOTH MAKER): Denied weakness. We will continue therapy. Assessment & Plan (05/24/2023 6:05 PM FILTER CLOTH MAKER): He is getting stronger with therapy. He will continue therapy when he gets his prosthesis. He will have a wheelchair upon discharge. Assessment & Plan (04/12/2023 4:09 PM FILTER CLOTH MAKER): Verbalized improvement with weakness. We will continue [...] 04/11/2023 Assessment & Plan (04/12/2023 3:58 PM FILTER CLOTH MAKER): Stable. Denied dizziness, lightheadedness, shortness of breaths and palpitation. Assessment & Plan (01/17/2023 2:30 PM CDT): Stable. Assessment & Plan (01/17/2023 1:58 PM CDT): Stable. Assessment & Plan (01/16/2023 7:16 PM CDT): Most recent hemoglobin 9.3. Atherosclerotic Heart Diseas e Of [place] Coronary Artery Without Angina Pectoris 01/15/2023 Overview [...] RAP). Assessment & Plan (05/24/2023 5:52 PM FILTER CLOTH MAKER): Stable on current meds Assessment & Plan (04/23/2023 1:02 PM FILTER CLOTH MAKER): BNAP 31,578 on 04/16/23. Dr. Gerardo increased furosemide to 40 mg bid and added spironolactone 25 mg daily. Weight today in [place] was 174 lb. No edema noted in left leg. No dyspnea. On O2 per N/C continuous. No change in medications until renal function results are available. Assessment & Plan (04/16/2023 7:41 PM FILTER CLOTH MAKER): He had multiple medication changes during hospitalization including discontinuation of spironolactone and Entresto. Farxiga is being held. Metoprolol and furosemide doses were decreased. Assessment & Plan (04/12/2023 4:01 PM FILTER CLOTH MAKER): No admission weight yet. 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 Continue care plan. Assessment & Plan (01/17/2023 2:31 PM CDT): HR well controlled ranging from 64-99. Continue care plan. Assessment & Plan (01/16/2023 8:24 AM CDT): HR well controlled. Continue care plan. Usp Use Of Insulin Active 12/09/2022 Overview (01/16/2023): On insulin glargine and aspart started during hospitalization December 2022. Assessment & Plan (05/24/2023 5:20 PM FILTER CLOTH MAKER): Nurse reports he is nonadherent to his [...] daily Assessment & Plan (06/07/2023 2:51 PM FILTER CLOTH MAKER): Blood sugars have been elevated due to [...] hypoglycemia. Assessment & Plan (05/29/2023 7:56 PM FILTER CLOTH MAKER): Patient's blood sugar continued to be on [...] sugar diets like he does at the [facility]. I have discussed with nursing on [...] possible. Assessment & Plan (05/24/2023 5:59 PM FILTER CLOTH MAKER): Insulin dependent not always compliant with diet. Glargine will be increased to 17 units. Assessment & Plan (05/22/2023 6:43 PM FILTER CLOTH MAKER): Blood sugar continued to be elevated mostly [...] 3 times daily with meals. Follow-up with [facility] next week. Dietitian/dietary to visit with patient and to discuss food options. Assessment & Plan (05/20/2023 4:22 PM FILTER CLOTH MAKER): Recent blood sugars in the SNF setting have been elevated. Short and long-acting insulin doses have changed significantly since admission. Will have him follow- up with [facility] for further review of blood sugars. Assessment & Plan (04/23/2023 1:04 PM FILTER CLOTH MAKER): Blood sugars not controlled. Increase Lantus to 14 units from 12. Assessment & Plan (04/16/2023 7:42 PM FILTER CLOTH MAKER): Was previously on glipizide and higher doses of mealtime aspart. Blood sugars are being checked 4 times daily. May need insulin readjusted. Assessment & Plan (04/12/2023 4:04 PM FILTER CLOTH MAKER): Blood sugars have been I< 200s. Currently [...] to 25 units and follow-up. Atherosclerosis Of [place] Ar teries Of Other Extremities With Ulceration [...] 120-130 Assessment & Plan (04/12/2023 4:07 PM FILTER CLOTH MAKER): Images from the original note were not [...] redness. Assessment & Plan (05/24/2023 5:14 PM FILTER CLOTH MAKER): Stable Assessment & Plan (04/29/2023 7:54 PM FILTER CLOTH MAKER): Today, nursing had reported left lower calf and ankle redness with open wound. On assessing the left calf/ankle, there was an open skin area (abrasion) that has no redness, swelling nor drainage. The skin was not warmth to touch and patient denied pain at 0/10 (nurse performance improvement manager was in attendance during visit). Nursing stated does look better than what it was this morning. They have been cleaning the wound area in apply Mepilex. Since there was no symptoms or evidence of infection on the left lower calf and ankle redness with open wound, nursing was instructed to continue skin check daily and current dressing. Contact [facility] providers if worsening skin condition. Of [...] for COVID-19 12/27/2022. Treated with remdesivir at [facility]. Anemia 01/16/2023 04/12/2023 Overview (04/12/2023): Lab Results Component Value Date WBC 9.0 04/11/2023 HGB 7.8 (L) 04/11/2023 HCT 24.9 (L) 04/11/2023 MCV 95 04/11/2023 PLT 381 04/11/2023 Assessment & Plan (04/12/2023 3:57 PM FILTER CLOTH MAKER): CBC reordered. Denied dizziness, lightheadedness, shortness of [...] 04/11/2023 Assessment & Plan (04/12/2023 4:05 PM FILTER CLOTH MAKER): BMP ordered. Assessment & Plan (01/17/2023 2:35 [...] Overview (01/15/2023): Onychomycosis of toenails; Original Code: [id number] Original Codesystem: SNOMED CT Classification: Medical Confirmation [...] Comments Blood Pressure 107/66 06/18/2023 1:10 PM FILTER CLOTH MAKER Pulse 78 06/18/2023 1:10 PM FILTER CLOTH MAKER Temperature 36.6 C (97.8 F) 06/18/2023 1:10 PM FILTER CLOTH MAKER Respiratory Rate 16 06/18/2023 1:10 PM FILTER CLOTH MAKER Oxygen Saturation 95% 06/18/2023 1:10 PM FILTER CLOTH MAKER Inhaled Oxygen Concentration - - Weight 75.8 kg (167 lb) 06/18/2023 1:10 PM FILTER CLOTH MAKER Height 175.3 cm (5' 9) 04/12/2023 3:21 PM FILTER CLOTH MAKER Body Mass Index 24.66 04/12/2023 3:21 PM FILTER CLOTH MAKER Plan of Treatment Not on file Insurance MEDICARE [facility] Advance Directives For more information, please contact: [phone] * DNR/DNI (Latest Code Status on File) Date Activated Date Inactivated Comments 05/24/2023 6:14 PM * DNR/DNI Date Activated Date Inactivated Comments 04/12/2023 4:11 PM 04/16/2023 7:15 AM Care Teams Pad Machine Offbearer Relationship Specialty Start Date End Date None Reported, Pcp PCP - General 03/21/24
--- OUTSIDE RECORDS SUMMARY | 2024-04-08 12:52 | XMS_ITS | Clinical Summary ---
Author Organization [facility] Address [address] [place] [address] Care Team Providers Care Peripatologist Name Role Phone None Reported, Pcp Primary Care Provider Unavail able Source Comments Patient records contain information from all sites at [facility]. For routine questions regarding patient records, call [phone] during business hours, M-F 8:00 AM - 5:00 PM Central Time. Record requests for emergency care only can be directed to [phone] at any time.[facility] Allergies No known active allergies Medications blood [...] guaze. Assessment & Plan (06/15/2023 4:18 PM LABORATORY EQUIPMENT INSTALLER): The wound bed is clean. A thin layer of silver stat will be applied with a gauze. Change daily. 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 Left Heel: Area continues to improve. Wound measures [id number]. Edges well defined, attached and 100% re-epithelialized tissues. Granulation tissue is observed along the lining of the edges under the bed of slough/eschar. Eschar is soft but not mushy. Wound bed is still approx 95% or more of slough/eschar. Scant drainage with dressing change. Resident tolerated cares without any concerns. New wound orders as follows: Assessment & Plan (06/15/2023 4:10 PM LABORATORY EQUIPMENT INSTALLER): 1: Gently cleanse area with NS. Pat dry. 2. Skin prep to gonsalo-wound. 3. Santyl to wound bed only. 4. Place gauze over wound. 5. cover with island dressing. 6. Change dressing daily. He may be discharged to home with home nursing for wound care . Assessment & Plan (06/01/2023 2:33 PM LABORATORY EQUIPMENT INSTALLER): Continue wound care and have [facility] evaluate in one week. Dementia 05/20/2023 Overview (05/24/2023): No documented dementia or behaviors Assessment & Plan (05/24/2023 5:57 PM LABORATORY EQUIPMENT INSTALLER): He has low hearing which could contribute to him not understanding Assessment & Plan (05/20/2023 4:20 PM LABORATORY EQUIPMENT INSTALLER): Although initial BIMS testing scored 14, he has had episodes of what seems to be sundowning with strong suspicion of underlying dementia. Will have OT further evaluate. Hyperglycemia 04/22/2023 Overview (04/22/2023): Prior to recent hospitalization, insulin glargine dose was 25 units daily and short-acting insulin 10 units with meals. Assessment & Plan (05/24/2023 6:00 PM LABORATORY EQUIPMENT INSTALLER): A1C 7.2 He will follow up with his PCP in [place] Assessment & Plan (04/22/2023 8:28 PM LABORATORY EQUIPMENT INSTALLER): His appetite has been poor and he has been getting much less insulin than he is used to. His sugars however have been high. Will gradually increase mealtime insulin to 7 units. Previously on 10 units with meals. Medical Lab Technician (Current) Anticoagulant Treatment 08/2022 Overview (04/16/2023): On [...] side. 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 He will need a standard wheelchair Mr. Woods was admitted to [facility] April 10 following BK right [...] site Assessment & Plan (04/16/2023 7:55 PM LABORATORY EQUIPMENT INSTALLER): Pain is well controlled. Stump care consists of washing with normal saline and dry. Cover with dry gauze or ABD b.i.d. he is wearing the knee brace to maintain extension in his working with therapies. He has follow-up with vascular surgery 05/11/2023. Assessment & Plan (04/12/2023 4:53 PM LABORATORY EQUIPMENT INSTALLER): Patient and mentioned he is doing well [...] 75mcg. Assessment & Plan (06/05/2023 9:25 PM LABORATORY EQUIPMENT INSTALLER): TSH value improved compared to prior value of 16.0 a month ago. Resident /nursing denied symptoms of hypothyroidism. Last T4 was 0.92 in April 2023. vice president of consulting services confirmed levothyroxine is given every morning (6am) without other medications. Therefore, we will increase levothyroxine 50mcg to 75mcg and rechecked TSH in 6 weeks. Nursing instructed to continue monitoring for symptoms of hypothyroidism and contact [facility] provider if any concerns. Assessment & Plan (05/24/2023 5:24 PM LABORATORY EQUIPMENT INSTALLER): Increase levothyroxine to 50 mcg daily. retirement may give two 25 mcg tablets to equal 50 mcg. He will be discharging in a week Assessment & Plan (04/23/2023 12:56 PM LABORATORY EQUIPMENT INSTALLER): TSH will be done. He is currently on levothyroxine 25 mcg daily. Dose will need to be adjusted if TSH is elevated. Assessment & Plan (04/16/2023 7:56 PM LABORATORY EQUIPMENT INSTALLER): Recheck TSH mid April. Assessment & Plan (04/12/2023 4:45 PM LABORATORY EQUIPMENT INSTALLER): Continue levothyroxine. TSH reordered. 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 Assessment & Plan (04/12/2023 4:08 PM LABORATORY EQUIPMENT INSTALLER): Plans to discharge back home. Patient remains [...] status Assessment & Plan (05/24/2023 5:15 PM LABORATORY EQUIPMENT INSTALLER): He will be full code Assessment & Plan (01/17/2023 2:30 PM CDT): Continue full code status Hyperlipidemia 01/16/2023 Overview (05/24/2023): On atorvastatin Assessment & Plan (05/24/2023 6:01 PM LABORATORY EQUIPMENT INSTALLER): Stay on statin Assessment & Plan (01/17/2023 2:35 PM CDT): Continue atorvastatin Assessment & Plan (01/17/2023 2:01 PM CDT): Continue atorvastatin Weakness General 01/16/2023 Overview (01/16/2023): This is multifactorial and related to recent hospitalizations and multiple comorbidities. Assessment & Plan (06/05/2023 9:26 PM LABORATORY EQUIPMENT INSTALLER): Denied weakness. We will continue therapy. Assessment & Plan (05/24/2023 6:05 PM LABORATORY EQUIPMENT INSTALLER): He is getting stronger with therapy. He will continue therapy when he gets his prosthesis. He will have a wheelchair upon discharge. Assessment & Plan (04/12/2023 4:09 PM LABORATORY EQUIPMENT INSTALLER): Verbalized improvement with weakness. We will continue [...] 04/11/2023 Assessment & Plan (04/12/2023 3:58 PM LABORATORY EQUIPMENT INSTALLER): Stable. Denied dizziness, lightheadedness, shortness of breaths and palpitation. Assessment & Plan (01/17/2023 2:30 PM CDT): Stable. Assessment & Plan (01/17/2023 1:58 PM CDT): Stable. Assessment & Plan (01/16/2023 7:16 PM CDT): Most recent hemoglobin 9.3. Atherosclerotic Heart Diseas e Of [place] Coronary Artery Without Angina Pectoris 01/15/2023 Overview [...] RAP). Assessment & Plan (05/24/2023 5:52 PM LABORATORY EQUIPMENT INSTALLER): Stable on current meds Assessment & Plan (04/23/2023 1:02 PM LABORATORY EQUIPMENT INSTALLER): BNAP 31,578 on 04/16/23. Dr. Gerardo increased furosemide to 40 mg bid and added spironolactone 25 mg daily. Weight today in [place] was 174 lb. No edema noted in left leg. No dyspnea. On O2 per N/C continuous. No change in medications until renal function results are available. Assessment & Plan (04/16/2023 7:41 PM LABORATORY EQUIPMENT INSTALLER): He had multiple medication changes during hospitalization including discontinuation of spironolactone and Entresto. Farxiga is being held. Metoprolol and furosemide doses were decreased. Assessment & Plan (04/12/2023 4:01 PM LABORATORY EQUIPMENT INSTALLER): No admission weight yet. Nursing to check [...] 12/22/2022 Assessment & Plan (04/22/2023 8:26 PM LABORATORY EQUIPMENT INSTALLER): Pro BN AP earlier today greater than [...] Apixaban Assessment & Plan (05/24/2023 5:53 PM LABORATORY EQUIPMENT INSTALLER): senior living anticoagulation on apixaban Assessment & Plan (04/23/2023 1:03 PM LABORATORY EQUIPMENT INSTALLER): Ventricular rate controlled today Assessment & Plan (04/12/2023 3:59 PM LABORATORY EQUIPMENT INSTALLER): HR well controlled ranging from 82-85. Continue care plan. Assessment & Plan (01/17/2023 2:31 PM CDT): HR well controlled ranging from 64-99. Continue care plan. Assessment & Plan (01/16/2023 8:24 AM CDT): HR well controlled. Continue care plan. Assisted Use Of Insulin Active 12/09/2022 Overview (01/16/2023): On insulin glargine and aspart started during hospitalization December 2022. Assessment & Plan (05/24/2023 5:20 PM LABORATORY EQUIPMENT INSTALLER): Nurse reports he is nonadherent to his [...] daily Assessment & Plan (06/07/2023 2:51 PM LABORATORY EQUIPMENT INSTALLER): Blood sugars have been elevated due to [...] hypoglycemia. Assessment & Plan (05/29/2023 7:56 PM LABORATORY EQUIPMENT INSTALLER): Patient's blood sugar continued to be on [...] possible. Assessment & Plan (05/24/2023 5:59 PM LABORATORY EQUIPMENT INSTALLER): Insulin dependent not always compliant with diet. Glargine will be increased to 17 units. Assessment & Plan (05/22/2023 6:43 PM LABORATORY EQUIPMENT INSTALLER): Blood sugar continued to be elevated mostly [...] 3 times daily with meals. Follow-up with [facility] next week. Dietitian/dietary to visit with patient and to discuss food options. Assessment & Plan (05/20/2023 4:22 PM LABORATORY EQUIPMENT INSTALLER): Recent blood sugars in the SNF setting have been elevated. Short and long-acting insulin doses have changed significantly since admission. Will have him follow- up with [facility] for further review of blood sugars. Assessment & Plan (04/23/2023 1:04 PM LABORATORY EQUIPMENT INSTALLER): Blood sugars not controlled. Increase Lantus to 14 units from 12. Assessment & Plan (04/16/2023 7:42 PM LABORATORY EQUIPMENT INSTALLER): Was previously on glipizide and higher doses of mealtime aspart. Blood sugars are being checked 4 times daily. May need insulin readjusted. Assessment & Plan (04/12/2023 4:04 PM LABORATORY EQUIPMENT INSTALLER): Blood sugars have been I< 200s. Currently [...] to 25 units and follow-up. 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 Assessment & Plan (05/24/2023 5:14 PM LABORATORY EQUIPMENT INSTALLER): Stable Assessment & Plan (04/29/2023 7:54 PM LABORATORY EQUIPMENT INSTALLER): Today, nursing had reported left lower calf and ankle redness with open wound. On assessing the left calf/ankle, there was an open skin area (abrasion) that has no redness, swelling nor drainage. The skin was not warmth to touch and patient denied pain at 0/10 (nurse manager occupational was in attendance during visit). Nursing stated does look better than what it was this morning. They have been cleaning the wound area in apply Mepilex. Since there was no symptoms or evidence of infection on the left lower calf and ankle redness with open wound, nursing was instructed to continue skin check daily and current dressing. Contact [facility] providers if worsening skin condition. Of note, [...] for COVID-19 12/27/2022. Treated with remdesivir at [facility]. Anemia 01/16/2023 04/12/2023 Overview (04/12/2023): Lab Results Component Value Date WBC 9.0 04/11/2023 HGB 7.8 (L) 04/11/2023 HCT 24.9 (L) 04/11/2023 MCV 95 04/11/2023 PLT 381 04/11/2023 Assessment & Plan (04/12/2023 3:57 PM LABORATORY EQUIPMENT INSTALLER): CBC reordered. Denied dizziness, lightheadedness, shortness of [...] 04/11/2023 Assessment & Plan (04/12/2023 4:05 PM LABORATORY EQUIPMENT INSTALLER): BMP ordered. 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 Med [...] Blood Pressure 107/66 06/18/2023 1:10 PM LABORATORY EQUIPMENT INSTALLER Pulse 78 06/18/2023 1:10 PM LABORATORY EQUIPMENT INSTALLER Temperature 36.6 C (97.8 F) 06/18/2023 1:10 PM LABORATORY EQUIPMENT INSTALLER Respiratory Rate 16 06/18/2023 1:10 PM LABORATORY EQUIPMENT INSTALLER Oxygen Saturation 95% 06/18/2023 1:10 PM LABORATORY EQUIPMENT INSTALLER Inhaled Oxygen Concentration - - Weight 75.8 kg (167 lb) 06/18/2023 1:10 PM LABORATORY EQUIPMENT INSTALLER Height 175.3 cm (5' 9) 04/12/2023 3:21 PM LABORATORY EQUIPMENT INSTALLER Body Mass Index 24.66 04/12/2023 3:21 PM LABORATORY EQUIPMENT INSTALLER Plan of Treatment Health Maintenance Due Date [...] patient's age to complete this topic Insurance [facility] [place] [address] MEDICARE [facility] Advance Directives For more information, please contact: [phone] * DNR/DNI (Latest Code Status on File) Date Activated Date Inactivated Comments 05/24/2023 6:14 PM * DNR/DNI Date Activated Date Inactivated Comments 04/12/2023 4:11 PM 04/16/2023 7:15 AM Care Teams Peripatologist Relationship Specialty Start Date End Date None Reported, Pcp PCP - General 03/21/24
--- OUTSIDE RECORDS SUMMARY | 2024-04-08 12:52 | XMS_ITS ---
Author Organization [facility] Address [address] [place] [address] Care Team Providers Care Leather Stitcher Name Role Phone Unavailable Unavailable Unavailable Surgery Details Not on file Complications Check Surgery Details section. Procedure Estimated Blood Loss Check Surgery Details section. Procedure Findings Check Surgery Details section. Procedure Specimens Taken Check Surgery Details section.
--- OUTSIDE RECORDS SUMMARY | 2024-04-08 12:52 | XMS_ITS | Encounter Summary ---
Author Organization [facility] Address [address] [place] [address] Care Team Providers Care Irrigation Supervisor Name Role Phone None Reported, Pcp Primary Care Provider Unavail able Reason for Visit * Reason Comments Med Refill Encounter Details Date Type Department Care Team (Late st Contact Info) Description 03/12/2024 Refill Senior Services in [facility] [address] [place] [phone] Hannah Castillo, RAYNA, C.N.P. [address] [facility] [place] [phone] Med Refill Social History Tobacco Use Types [...] on filedocumented in this encounter Care Teams Irrigation Supervisor Relationship Specialty Start Date End Date None Reported, Pcp PCP - General 03/21/24 documented as of this encounter
--- OUTSIDE RECORDS SUMMARY | 2024-04-08 12:52 | XMS_ITS | Clinical Summary ---
Author Organization [employer] [facility] Address [place], [place] [address] Care Team Providers Care Log Check Scaler Name Role Phone VotelMelquiades MD Primary Care Provider + Nurses, Advanced Heart Failure Unavailable + Shade Manuel MD Unavailable [facility], [place] Unavailable Allergies No known active allergies Medications Medication Sig Dispensed Refills Start Date End Date Status blood-glucose meterIndications: Type 2 diabetes mellitus with complication (HC) Ascensia Glucometer, Dispense meter, test strips, lancets covered by pt ins. Test 3 times daily 1 Device 1 Active Insulin [place], Disposable, (Novofine 32) 32 gauge x 1/4Indications:2 [...] be used to read blood sugars, follow physical chemistry teacher directions. 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 11/25/2019 HTN (hypertension) 10/28/2015 Hyperlipidemia LDL goal <70 10/28/2015 Adenomatous colon polyp 04/13/2015 Overview (03/16/2020): Colonoscopy 04/2015 polyps repeat in 5 years Colonoscopy 03/2020 polyps, repeat in 5 years Background diabetic retinopathy(362.01) 07/10/19 08 Unspecified hearing loss 07/10/2007 Coronary atherosclerosis of unspecified type of vessel, [place] or graft Overview (11/08/2011): 4 vessel CABG 2001 Lexiscan only for cardiac evaluation - no treadmill Other ill-defined and unknow n causes of morbidity and mortality Impotence of organic origin Resolved Problems Problem Noted Date Diagnosed Date Resolved Date Type 2 diabetes mellitus with complication 11/16/2017 12/22/2022 Heart disease, unspecified 0 07/10/2007 Encounters Date Type Department Care Team Description 04/04/2024 Telephone [facility] [address] [place] [address] Lidia Mccoy RN Home Care (Patient was admitted to Home Care ) 04/03/2024 Telephone [address] [place] [address] Melquiades Man MD Medication Management (The following severe interactions and/or contraindicated drug combinations were noted today:/1. apixaban and clopidogreL/Concurren t use of apixaban with antiplatelets may increase the risk of bleeding.(1-4)//Provi meron: Please advise if any changes are indicated. ) 04/02/2024 10:30 AM [facility] Home Care Visit [facility] [place] [address] [place] [address] Lidia Mccoy, SIS SN - OASIS START OF CARE 04/02/2024 Plan of Care Documentation [facility] [address] [place] [phone] 03/31/2024 Transcribe Orders [facility] [address] [place] [address] Brenda Hart NP 03/14/2024 Telephone [facility] [address] [facility] [address] [place] [phone] Shade Manuel MD 03/13/2024 11:00 AM CDT Patient Outreach [address] [address] Priyanka Hummel RN Diabetes (Follow-up) 03/13/2024 Travel 03/12/2024 Refill [facility] [address] [place] [address] Melquiades Man MD Refill Request (Basaglar Kwikpen U-100 Insulin) 02/22/2024 1:40 PM CDT Orders Only [facility] [address] [place] [address] Lab, Sherita Lab 02/22/2024 Travel 02/17/2024 Travel 02/12/2024 Telephone [facility] [address] [facility] [address] [place] [phone] Shade Manuel MD Follow Up 02/10/2024 8:12 AM CDT - 02/10/2024 12:50 PM CDT [facility] [address] [place] [address] Shira Morley MD Del Castillo, Isabelle Jennifer Rose Farro, MD Altered mental status, unspecified altered mental status type (Primary Dx); Lethargy; ALEX (acute kidney injury) (HC); Dehydration Discharge Disposition: Home Self Care 02/10/2024 Travel 02/07/2024 11:00 AM CDT Patient Outreach [address] [address] Priyanka Hummel RN Diabetes (F/u insulin management) 02/07/2024 Travel 02/04/2024 Orders Only [facility] Scanner 1 scan: (1-Ord) [facility], CERVICAL SPINE WO, 02/04/2024 02/04/2024 Orders Only [facility] Scanner 1 scan: (1-Ord) [place], CT HEAD/BRAIN WO CON, 02/04/2024 02/04/2024 Nurse Triage [address] [place] [address] Melquiades Man MD Neck Pain/problem 01/17/2024 12:40 PM CDT Orders Only [address] [address] LabSherita Lab 01/17/2024 11:00 AM CDT Patient Outreach [address] [address] Priyanka Hummel RN Diabetes (Download CGM for insulin management) 01/17/2024 Telephone [facility] [address] [place] [address] Melquiades Man MD 01/17/2024 Travel 01/11/2024 Nurse Triage [facility] [address] [place] [address] Melquiades Man MD Low Blood Pressure 01/11/2024 Nurse Triage [facility] [address] [place] [address] Melquiades Man MD Low Blood Pressure 01/08/2024 1:30 PM CDT Office Visit [facility] Lizzie Mackay [address] [facility] [place] [address] Shade Manuel MD CV Heart Failure Est (EST PT. 6 MONTH F/U) 01/08/2024 Travel from Last 3 Months Immunizations Name [...] Td, Preservative Free (age >= 7 Years) 10/24/200 6 Tdap 01/21/2021 Zoster (Shingrix-RZV, recombinant) 01/21/2021, [...] Comments Blood Pressure 103/58 04/02/2024 2:50 PM [facility] Pulse 71 04/02/2024 1:52 PM [facility] Temperature 36.6 C (97.9 F) 04/02/2024 1:52 PM [facility] Respiratory Rate 16 04/02/2024 1:52 PM [facility] Oxygen Saturation 96% 04/02/2024 1:52 PM [facility] Inhaled Oxygen Concentration - - Weight 86.2 kg (190 lb) 04/02/2024 1:52 PM [facility] Height 175.3 cm (5' 9) 02/10/2024 8:20 AM CDT Body Mass Index 28.06 02/10/2024 8:20 AM CDT Plan of Treatment Upcoming Encounters Date Type Department Care Team (Late st Contact Info) Description 04/11/2024 4:00 AM [facility] Home Care Visit [facility] [address] [place] [address] Lidia Mccoy, SIS 04/15/2024 11:00 AM [facility] Ancillary Procedure [facility] [address] [place] [address] 04/16/2024 4:00 AM [facility] Home Care Visit [facility] [address] [place] [address] Lidia Mccoy, SIS 04/18/2024 4:00 AM [place] Home Care Visit [facility] [address] [place] [phone] Lidia Mccoy, SIS 04/23/2024 4:00 AM [place] Home Care Visit [facility] [address] [place] [address] Lidia Mccoy, SIS 04/25/2024 4:00 AM [place] Home Care Visit [facility] [address] [place] [phone] Lidia Mccoy, RN 04/30/2024 4:00 AM [place] Home Care Visit [facility] [address] [place] [phone] Lidia Mccoy, RN 05/02/2024 4:00 AM [place] Home Care Visit [facility] [address] [place] [phone] Lidia Mccoy, RN 2024 4:00 AM [place] Home Care Visit [facility] [address] [place] [phone] Lidia Mccoy, SIS 05/09/2024 4:00 AM [place] Home Care Visit [facility] [address] [place] [address] Lidia Mccoy, SIS 05/14/2024 4:00 AM [place] Home Care Visit [facility] [address] [place] [address] Lidia Mccoy, SIS 05/15/2024 11:10 AM [place] Orders Only [facility] [address] [place] [address], [place] [address] Lab, Sherita 05/16/2024 4:00 AM [place] Home Care Visit [facility] [address] [place] [address] Lidia Mccoy, SIS 05/21/2024 4:00 AM [place] Home Care Visit [facility] [address] [place] [address] Lidia Mccoy, SIS 05/22/2024 10:30 AM [place] Office Visit [facility] Lizzie Mackay [address] [place] [address] Dr Flower [address] [place] [address] Shade Manuel MD [address] [facility] [address] [place] [address] 05/23/2024 4:00 AM [place] Home Care Visit [facility] [address] [place] [address] Lidia Mccoy, SIS 05/28/2024 4:00 AM [place] Home Care Visit [facility] [address] [place] [address] Lidia Mccoy, SIS 05/30/2024 4:00 AM [facility] Home Care Visit [facility] [address] [place] [address] Lidia Mccoy, RN Health Maintenance Due Date Last Done Comments [...] INTERPRETATION 4 12:00 AM CDT SCAN-CT INTERPRETATION 12:00 AM CDT BASIC METABOLIC PANEL Routine 01/17/2024 11:44 AM CDT HFrEF (heart failure with reduced ejection fraction) (HC) from Last 3 Months Results * (ABNORMAL) BASIC METABOLIC PANEL (03/13/2024 11:23 AM CDT) Only the most recent of4 resultswithin the time period is included. GLUCOSE 115 65 - 139 mg/dL [facility] Comment: Non-fasting reference interval UREA NITROGEN (BUN) [...] FASTING:NO FASTING: NO Shade Manuel MD CHEMISTRY [facility] [address] [place] [address], [facility] [address] [place] [address] * URINALYSIS MICROSCOPIC (02/10/2024 10:19 AM CDT) RBC None Seen 0-2, None Seen /HPF 02/10/2024 10:45 AM CDT [facility] WBC None Seen 0-2, 3-5, None Seen /HPF 02/10/2024 10:45 AM CDT [facility] BACTERIA None Seen None Seen, Rare, Few Bacteria/ HPF 02/10/2024 10:45 AM CDT [facility] EPITHELIAL CELLS Few None Seen, Few Epi/HPF 02/10/2024 10:45 AM CDT [facility] Urine URINE SPECIMEN / Unknown Non-Blood / Unknown 02/10/2024 10:19 AM CDT 02/10/2024 10:23 AM CDT Shira Morley MD URINE [facility] [address] [place] [address] * URINE CULTURE (02/10/2024 10:19 AM CDT) CULTURE 10-50,000 CFU/mL of multiple organisms, probable contaminants 02/11/2024 10:36 AM CDT [facility] Urine URINE SPECIMEN / Unknown Non-Blood / Unknown 02/10/2024 10:19 AM CDT 02/10/2024 10:23 AM [facility] Shira Morley MD MICROBIOLOGY [facility] [address] [place] [address], [place] * (ABNORMAL) UA W/ SEDIMENT EXAM REFLEXED PER CRITERIA (02/10/2024 10:19 AM CDT) COLOR Yellow Yellow Color 02/10/2024 10:28 AM [facility] CLARITY Clear Clear Clarity 02/10/2024 10:28 AM [facility] SPECIFIC GRAVITY,URINE 1.015 1.010, 1.015, 1.020, 1.025 02/10/2024 10:28 AM [facility] PH,URINE 5.5 6.0, 7.0, 8.0, 5.5, 6.5, 7.5, 8.5 02/10/2024 10:28 AM [facility] UROBILINOGEN, QUALITATIVE Normal Normal EU/dl 02/10/2024 10:28 AM [facility] PROTEIN, URINE Negative Negative mg/dL 02/10/2024 10:28 AM [facility] GLUCOSE, URINE >=1000(A) Negative mg/dL 02/10/2024 10:28 AM [facility] KETONES,URINE Negative Negative mg/dL 02/10/2024 10:28 AM [facility] BILIRUBIN,URI NE Negative Negative 02/10/2024 10:28 AM [facility] OCCULT BLOOD,URINE Negative Negative 02/10/2024 10:28 AM [facility] NITRITE Negative Negative 02/10/2024 10:28 AM [facility] LEUKOCYTE ESTERASE Negative Negative 02/10/2024 10:28 AM [facility] Urine URINE SPECIMEN / Unknown Non-Blood / Unknown 02/10/2024 10:19 AM CDT 02/10/2024 10:23 AM CDT Shira Morley MD URINE [facility] [address] [place] [address] * CT HEAD BRAIN WO (02/10/2024 9:00 [...] For Patients: As a result of the Century Cures Act, medical imaging exams and [...] For Patients: As a result of the Century Cures Act, medical imagingexams and procedure reports [...] @ 02/10/2024 9:10:59 AM (Electronically Signed) Shira Molrey MD CT * (ABNORMAL) CBC WITH AUTO DIFFERENTIAL (02/10/2024 8:41 AM CDT) WHITE BLOOD COUNT 7.6 4.5 - 11.0 thou/cu mm 02/10/2024 8:58 AM CDT [facility] RED BLOOD COUNT 3.47(L) 4.30 - 5.90 mil/cu mm 02/10/2024 8:58 AM CDT [facility] HEMOGLOBIN 10.2(L) 13.5 - 17.5 g/dL 02/10/2024 8:58 AM [facility] HEMATOCRIT 32.8(L) 37.0 - 53.0 % 02/10/2024 8:58 AM [facility] MCV 95 80 - 100 fL 02/10/2024 8:58 AM [facility] MCH 29.4 26.0 - 34.0 pg 02/10/2024 8:58 AM [facility] MCHC 31.1(L) 32.0 - 36.0 g/dL 02/10/2024 8:58 AM [facility] RDW 14.9 11.5 - 15.5 % 02/10/2024 8:58 AM [facility] PLATELET COUNT 271 140 - 440 thou/cu mm 02/10/2024 8:58 AM [facility] MPV 10.1 6.5 - 11.0 fL 02/10/2024 8:58 AM [facility] % NEUT 70.9 % 02/10/2024 8:58 AM [facility] % LYMPH 14.1 % 02/10/2024 8:58 AM [facility] % MONO 8.8 % 02/10/2024 8:58 AM [facility] % EOS 5.9 % 02/10/2024 8:58 AM [facility] % BASO 0.3 % 02/10/2024 8:58 AM [facility] ABSOLUTE NEUTROPHILS 5.4 1.7 - 7.0 thou/cu mm 02/10/2024 8:58 AM [facility] ABSOLUTE LYMPHOCYTES 1.1 0.9 - 2.9 thou/cu mm 02/10/2024 8:58 AM [facility] ABSOLUTE MONOCYTES 0.7 <0.9 thou/cu mm 02/10/2024 8:58 AM [facility] ABSOLUTE EOSINOPHILS 0.5(H) <0.5 thou/cu mm 02/10/2024 8:58 AM CDT [facility] ABSOLUTE BASOPHILS 0.0 <0.3 thou/cu mm 02/10/2024 8:58 AM CDT [facility] Blood BLOOD SPECIMEN / Unknown Butterfly / Unknown 02/10/2024 8:41 AM CDT 02/10/2024 8:45 AM CDT Shira Morley MD HEMATOLOGY Performing Organization Address City/[facility]/ZIP Co de Phone Number [facility] [address] [place] [address] * LACTATE VENOUS (02/10/2024 8:41 AM CDT) LACTATE,VENOUS 1.6 0.5 - 2.0 mmol/L 02/10/2024 9:07 AM CDT [facility] Blood BLOOD SPECIMEN / Unknown Butterfly / Unknown 02/10/2024 8:41 AM CDT 02/10/2024 8:45 AM CDT Shira Morley MD CHEMISTRY [facility] [address] [place] [address] * TSH (02/10/2024 8:41 AM CDT) TSH 2.91 0.27 - 4.20 uIU/mL 02/10/2024 9:16 AM CDT [facility] Blood BLOOD SPECIMEN / Unknown Butterfly / Unknown 02/10/2024 8:41 AM CDT 02/10/2024 8:45 AM CDT Narrative [facility] - 02/10/2024 9:16 AM CDT In Adults, TSH values between 5.00 and 10.00 uIU/ml do not necessarily indicate the presence of Hypothyroidism. Correlation with clinical findings such as presence of goiter and/or Thyroperoxidase (TPO) Antibody may be helpful. For more information please refer to RONNIE 2004; 291: 228-238. Shira Morley MD CHEMISTRY Performing Organization Address [facility]/ZIP Co de Phone Number [facility] [address] [place] [address] * AMMONIA (02/10/2024 8:41 AM CDT) [facility] AMMONIA 14 11 - 51 umol/L 02/10/2024 9:07 AM CDT [facility] Blood BLOOD SPECIMEN / Unknown Butterfly / Unknown 02/10/2024 8:41 AM CDT 02/10/2024 8:45 AM CDT [facility] - 02/10/2024 9:07 AM CDT 1. Sulfasalazine and its metabolite Sulfapyridine at therapeutic concentrations may lead to falsely low results. 2. Temozolomide and its metabolite MTIC may lead to falsely elevated results, and its metabolite AIC may lead to falsely low results. Shira Morley MD CHEMISTRY Performing Organization Address [facility] Co de Phone Number [facility] [address] [place] [address] * (ABNORMAL) HEPATIC FUNCTION PANEL (02/10/2024 8:41 AM CDT) [facility] ALBUMIN 3.6(L) 4.0 - 4.9 g/dL 02/10/2024 9:16 AM T [facility] PROTEIN,TOTAL 7.5 6.0 - 8.0 g/dL 02/10/2024 9:16 AM T [facility] BILIRUBIN,TOTAL 0.3 0.0 - 1.2 mg/dL 02/10/2024 9:16 AM [facility] BILIRUBIN,DIRECT 0.1 0.0 - 0.2 mg/dL 02/10/2024 9:16 AM [facility] BILIRUBIN,INDIRE CT 02/10/2024 9:16 AM [facility] Comment:Unable to calculate, Direct Bili <0.2 ALK PHOSPHATASE 95 40 - 129 IU/L 02/10/2024 9:16 AM CDT [facility] ALT (SGPT) 13 10 - 50 IU/L 02/10/2024 9:16 AM CDT [facility] AST (SGOT) 19 10 - 50 IU/L 02/10/2024 9:16 AM CDT [facility] Blood BLOOD SPECIMEN / Unknown Butterfly / Unknown 02/10/2024 8:41 AM CDT 02/10/2024 8:45 AM CDT Shira Morley MD CHEMISTRY [facility] [address] [place] [address] * SCAN-CT INTERPRETATION (02/04/2024 12:00 AM CDT) Only the most recent of2 resultswithin the time period is included. 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
== END 2024-04-08 12:48 | disposition home or self-care (01) ==
PROVIDERS: PCP Family Medicine; Visit Provider Nurse Practitioner Family
DX: E11.621 Type 2 diabetes mellitus with foot ulcer (principal); L89.620 Pressure ulcer of left heel, unstageable; Z79.84 Long term (current) use of oral hypoglycemic drugs
CPT/HCPCS: G0463

== ENCOUNTER 2024-04-14 14:46 | Outpatient (CLI) | payer OTHER, MEDICARE, BC, SELFPAY ==
--- OUTSIDE RECORDS SUMMARY | 2024-04-14 14:55 | XMS_ITS | Continuity of Care Document ---
Author Name [facility] Organization [facility] Care Team Providers Care Duct Installer Name Role Phone [facility] Unavailable Unavailable Problems Combined list of problems from Department of Defense and Veterans Affairs facilities. It does not include entries that were removed or entered in error. Problem Status Onset Date Problem Type Date of Resolution Comments Source Exposure to potentially hazardous substance ([facility] [id number]) Active 07/20/19 24 Condition Jul 20, 2023 Entered By: MECHELLE DEMPSEY Comment: [facility] Documentation Initiative [facility] CAD - Coronary Artery Disease ([facility] [id number]) Active Condition [place] ([facility]) CHF - Congestive Heart Failure ([facility] [id number]) Active Condition [facility]) Diabetes Mellitus Type 2 ([facility] [id number]) Active Condition [place] ([facility]) History of amputation of right leg through tibia and fibula Active Condition [place] [facility] ([facility]) HTN - Hypertension ([facility] [id number]) Active Condition [place] ([facility]) Hyperlipidemia ([facility] [id number]) Active Condition [facility] Hypothyroidism ([facility] 48321191) Active Condition [place] ([facility]) Long-term current use of insulin Active Condition [place] ([facility]) Peripheral neuropathy due to type 2 diabetes mellitus Active Condition [place] ([facility]) Diagnosis: ICD-10-CM R53.1 Weakness Active Diagnosis [facility] Diagnosis: ICD-10-CM Z89.511 Acquired absence of right leg below knee Active Diagnosis [facility] Diagnosis: ICD-10-CM Z65.8 Oth problems related to psychosocial circumstances Active Diagnosis [facility] Diagnosis: ICD-10-CM H90.3 Sensorineural hearing loss, bilateral Active Diagnosis [facility] Diagnosis: ICD-10-CM L89.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, stage 3 Active Diagnosis [facility]) Diagnosis: ICD-10-CM Z46.1 Encounter for fitting and adjustment of hearing aid Active Diagnosis [facility] Diagnosis: ICD-10-CM Z74.09 Other reduced mobility Active Diagnosis [place] ([facility]) Diagnosis: ICD-10-CM E11.9 Type 2 diabetes mellitus without complications Active Diagnosis [place] ([facility]) Diagnosis: ICD-10-CM I50.9 Heart failure, unspecified Active Diagnosis [place] ([facility]) Diagnosis: ICD-10-CM R26.89 Other abnormalities of [...] [facility] WOUND CARE ORDERS TOPICA L 02/16/2024 [id number] KATHY MURPHY 2022 40 [facility] CLOPIDOGREL BISULFATE 75MG TAB TAKE ONE TABLET [...] 90 UNITS/DA Y SUBCUT ANEOUS ACTIVE 03/12/2025 [id number] HENRIKRYAN Cason 2023 15 [facility] [...] Y SUBCUT ANEOUS DISCONT INUED (EDIT) 01/10/2025 [id number] HENRIKRYNA Cason 2023 10 [facility] ([facility]) INSULIN,ASP [...] Y SUBCUT ANEOUS DISCONT INUED (EDIT) 11/08/2024 [id number] HENRIKRYAN Cason 2023 10 [facility] [...] Site Reaction Lot Number CVX Code Drug Analysis Lead Status Comments Source COVID-19 ([employer]), MRNA, LNP-S, PF, NAVYA-SUCROSE, 30 MCG/0.3 ML (AGES 12+ YEARS) 2023 309 complet ed [facility] INFLUENZA, ADJUVANTED, TRIVALENT, PF 2023 168 complet ed [facility] COVID-19 ([employer]), MRNA, LNP-S, PF, NAVYA-SUCROSE, 30 MCG/0.3 ML (AGES 12+ YEARS) 2022 309 complet ed [facility] INFLUENZA, ADJUVANTED, QUADRIVALENT, PF 2022 205 complet ed [facility] RSV, BIVALENT, PROTEIN SUBUNIT RSVPREF, DILUENT RECONSTITUTED , 0.5 ML, PF 2022 305 complet ed [facility] INFLUENZA, HIGH-DOSE, QUADRIVALENT 1 2021 197 complet ed [facility] COVID-19 (MODERNA), MRNA, LNP-S, BIVALENT, PF, 50 MCG/0.5 ML OR 25MCG/0.25 ML DOSE 1 2021 229 complet ed [facility] COVID-19 (MODERNA), MRNA, LNP-S, PF, 100 MCG/0.5ML DOSE OR 50 MCG/0.25ML DOSE 2020 207 complet ed [facility] COVID-19 (P[employer]ER), MRNA, LNP-S, PF, 30 MCG/0.3 ML DOSE 3 2020 208 complet ed [facility] INFLUENZA, HIGH-DOSE, QUADRIVALENT, PF 2020 197 complet ed [facility] INFLUENZA, UNSPECIFIED FORMULATION 2020 88 complet ed [facility] TDAP 2020 115 complet ed [employer], [id number] , exp-2022 and given VIS [...] complet ed [facility] INFLUENZA, ADJUVANTED, TRIVALENT, PF 2019 168 complet ed [facility] INFLUENZA, UNSPECIFIED FORMULATION 2019 88 complet ed [facility] INFLUENZA, HIGH-DOSE, TRIVALENT, PF 2018 135 complet ed [facility] INFLUENZA, ADJUVANTED, TRIVALENT, PF 2017 168 complet ed [facility] INFLUENZA, UNSPECIFIED FORMULATION 2016 88 complet ed [facility] INFLUENZA, HIGH-DOSE, TRIVALENT, PF 2014 135 complet ed [facility] PNEUMOCOCCAL CONJUGATE PCV 13 2014 133 complet ed [facility] INFLUENZA, SPLIT VIRUS, TRIVALENT, PRESERVATIVE 2012 141 complet ed [facility] INFLUENZA, SPLIT VIRUS, TRIVALENT, PRESERVATIVE 2011 141 complet ed [facility] INFLUENZA, SPLIT VIRUS, TRIVALENT, PF 2010 140 complet ed [facility] PNEUMOCOCCAL POLYSACCHARID E PPV23 2010 33 complet ed [facility] INFLUENZA, SPLIT VIRUS, TRIVALENT, PRESERVATIVE 2009 141 complet ed [facility] INFLUENZA, SPLIT VIRUS, TRIVALENT, PF 2008 140 complet ed [facility] INFLUENZA, SPLIT VIRUS, TRIVALENT, PRESERVATIVE 2007 141 complet ed [facility] INFLUENZA, SPLIT VIRUS, TRIVALENT, PRESERVATIVE 2006 141 complet ed [facility] INFLUENZA, SPLIT VIRUS, TRIVALENT, PRESERVATIVE 2005 141 complet ed [facility] PNEUMOCOCCAL POLYSACCHARID E PPV23 2005 33 complet ed [facility] TD (ADULT), 5 LF TETANUS TOXOID, PRESERVATIVE FREE, ADSORBED 2005 113 complet ed [facility] INFLUENZA, SPLIT VIRUS, TRIVALENT, PRESERVATIVE 2004 141 complet ed [facility] INFLUENZA, SPLIT VIRUS, TRIVALENT, PRESERVATIVE 2003 141 complet ed [facility] INFLUENZA, SPLIT VIRUS, TRIVALENT, PRESERVATIVE 2002 141 complet [facility] Results Combined list of recent [...] 2023 02:00 PM Reporting Lab: [place] [address] Performing Lab: [address] ([place]) BASIC METABOLIC PANEL+MG CREATININE [MASS/VOLUM E] IN SERUM OR PLASMA 1.2 mg/dL 0.7 - 1.2 01/23 Specimen Type: PLASMA No comment entered. Ordering Provider: AILIN CHESTER Report Released Date/Time: Jan 23, 2023 02:00 PM Reporting Lab: [place] [id number] Performing Lab: [address] ([facility]) BASIC METABOLIC PANEL+MG UREA NITROGEN [MASS/VOLUM E] IN SERUM OR PLASMA 35 mg/dL 8 - 26 01/23 H Specimen Type: PLASMA No comment entered. Ordering Provider: AILIN CHESTER Report Released Date/Time: Jan 23, 2023 02:00 PM Reporting Lab: [facility] [address] Performing Lab: [address] ([facility]) BASIC METABOLIC PANEL+MG GLUCOSE [MASS/VOLUM E] IN SERUM OR PLASMA 239 mg/dL 70 - 100 01/23 H Specimen Type: PLASMA No comment entered. Ordering Provider: AILIN CHESTER Report Released Date/Time: Jan 23, 2023 02:00 PM Reporting Lab: [place] [address] Performing Lab: [address] ([facility]) BASIC METABOLIC PANEL+MG SODIUM [MOLES/VOLU ME] IN SERUM OR PLASMA 140 mmol/L 136 - 145 01/23 Specimen Type: PLASMA No comment entered. Ordering Provider: AILIN CHESTER Report Released Date/Time: Jan 23, 2023 02:00 PM Reporting Lab: [facility] [address] Performing Lab: [address] [place] ([facility]) BASIC METABOLIC PANEL+MG POTASSIUM [MOLES/VOLU ME] IN SERUM OR PLASMA 5.1 mmol/L 3.5 - 5.1 01/23 Specimen Type: PLASMA No comment entered. Ordering Provider: AILIN CHESTER Report Released Date/Time: Jan 23, 2023 02:00 PM Reporting Lab: [address] Performing Lab: [place] [address] [place] ([facility]) BASIC METABOLIC PANEL+MG CHLORIDE [MOLES/VOLU ME] IN SERUM OR PLASMA 109 mmol/L 98 - 107 01/23 H Specimen Type: PLASMA No comment entered. Ordering Provider: AILIN CHESTER Report Released Date/Time: Jan 23, 2023 02:00 PM Reporting Lab: [address] Performing Lab: [address] ([facility]) BASIC METABOLIC PANEL+MG CARBON DIOXIDE, TOTAL [MOLES/VOLU ME] IN SERUM OR PLASMA 21 mmol/L 22 - 29 01/23 L Specimen Type: PLASMA No comment entered. Ordering Provider: AILIN CHESTER Report Released Date/Time: Jan 23, 2023 02:00 PM Reporting Lab: [place] [phone] Performing Lab: [place] [phone] [place] ([facility]) BASIC METABOLIC PANEL+MG CALCIUM [MASS/VOLUM E] IN SERUM OR PLASMA 9.4 mg/dL 8.4 - 10.2 01/23 Specimen Type: PLASMA No comment entered. Ordering Provider: AILIN CHESTER Report Released Date/Time: Jan 23, 2023 02:00 PM Reporting Lab: [facility] [address] Performing Lab: [facility] [id number] [place] [address] ([facility]) BASIC METABOLIC PANEL+MG MAGNESIUM [MASS/VOLUM E] IN SERUM OR PLASMA 1.7 mg/dL 1.6 - 2.6 01/23 Specimen Type: PLASMA No comment entered. Ordering Provider: AILIN CHESTER Report Released Date/Time: Jan 23, 2023 02:00 PM Reporting Lab: [facility] [address] Performing Lab: [facility] [address] [place] ([facility]) BASIC METABOLIC PANEL+MG ANION GAP IN SERUM OR PLASMA 10 mmol/L 5 - 15 01/23 Specimen Type: PLASMA No comment entered. Ordering Provider: AILIN CHESTER Report Released Date/Time: Jan 23, 2023 02:00 PM Reporting Lab: [place] [phone] Performing Lab: [place] [phone] [place] [address] ([facility]) BASIC METABOLIC PANEL+MG GLOMERULAR FILTRATION RATE/1.73 SQ M.PREDICTED [VOLUME RATE/AREA] IN SERUM, PLASMA OR BLOOD BY CREATININE- BASED FORMULA (CKD-EPI 2020) 61 60 01/23 Specimen Type: PLASMA No comment entered. Ordering Provider: AILIN CHESTER Report Released Date/Time: Jan 23, 2023 02:00 PM Reporting Lab: [place] [phone] Performing Lab: [place] [phone] [place] ([facility]) MICROALBU MIN/CREAT ININE RATIO URINE CREATININE [MASS/VOLUM E] IN URINE 132.8 mg/dL 58.0 - 161.0 11/23 Specimen Type: URINE No comment entered. Ordering Provider: AILIN CHESTER Report Released Date/Time: Nov 23, 2022 11:58 AM Reporting Lab: [place] [phone] Performing Lab: [place] [phone] [place] [address] ([facility]) MICROALBU MIN/CREAT ININE RATIO URINE MICROALBUMI N/CREATININ E [MASS RATIO] IN URINE 28.0 mg/g{c reat} 11/23 Specimen Type: URINE No comment entered. Ordering Provider: AILIN CHESTER Report Released Date/Time: Nov 23, 2022 11:58 AM Reporting Lab: [place] [phone] Performing Lab: [facility] [id number] [place] [address] ([facility]) MICROALBU MIN/CREAT ININE RATIO URINE MICROALBUMI N [MASS/VOLUM E] IN URINE 37.2 mg/L 11/23 H Specimen Type: URINE No comment entered. Ordering Provider: AILIN CHESTER Report Released Date/Time: Nov 23, 2022 11:58 AM Reporting Lab: [facility] [address] Performing Lab: [facility] [address] [place] ([facility]) LIPID PANEL,NON -FASTING CHOLESTEROL [MASS/VOLUM E] IN SERUM OR PLASMA 130 mg/dL 11/23 Specimen Type: PLASMA No comment entered. Ordering Provider: AILIN CHESTER Report Released Date/Time: Nov 23, 2022 11:58 AM Reporting Lab: [facility] [address] Performing Lab: [facility] [address] [place] ([facility]) LIPID PANEL,NON -FASTING CHOLESTEROL IN HDL [MASS/VOLUM E] IN SERUM OR PLASMA 39 mg/dL 11/23 L Specimen Type: PLASMA No comment entered. Ordering Provider: AILIN CHESTER Report Released Date/Time: Nov 23, 2022 11:58 AM Reporting Lab: [facility] [address] Performing Lab: [facility] [address] [place] ([facility]) LIPID PANEL,NON -FASTING CHOLESTEROL IN LDL [MASS/VOLUM E] IN SERUM OR PLASMA BY CALCULATION 73 mg/dL 11/23 Specimen Type: PLASMA No comment entered. Ordering Provider: AILNI CHESTER Report Released Date/Time: Nov 23, 2022 11:58 AM Reporting Lab: [facility] [address] Performing Lab: [facility] [address] [place] ([facility]) LIPID PANEL,NON -FASTING CHOLESTEROL IN VLDL [MASS/VOLUM E] IN SERUM OR PLASMA BY CALCULATION 18 mg/dL 11/23 Specimen Type: PLASMA No comment entered. Ordering Provider: AILIN CHESTER Report Released Date/Time: Nov 23, 2022 11:58 AM Reporting Lab: [facility] [address] Performing Lab: [facility] [address] [place] ([facility]) LIPID PANEL,NON -FASTING CHOLESTEROL NON HDL [MASS/VOLUM E] IN SERUM OR PLASMA 91 mg/dL 11/23 Specimen Type: PLASMA No comment entered. Ordering Provider: AILIN CHESTER Report Released Date/Time: Nov 23, 2022 11:58 AM Reporting Lab: [place] [phone] Performing Lab: [address] ([facility]) LIPID PANEL,NON -FASTING TRIGLYCERID E [MASS/VOLUM E] IN SERUM OR PLASMA 92 mg/dL 11/23 Specimen Type: PLASMA No comment entered. Ordering Provider: AILIN CHESTER Report Released Date/Time: Nov 23, 2022 11:58 AM Reporting Lab: [place] [phone] Performing Lab: [address] ([facility]) TSH W/REFLEX TO FREE T4 THYROTROPIN [UNITS/VOLU ME] IN SERUM OR PLASMA 4.59 u[IU]/ mL 0.35 - 4.94 11/23 Specimen Type: PLASMA No comment entered. Ordering Provider: AILIN CHESTER Report Released Date/Time: Nov 23, 2022 11:58 AM Reporting Lab: [address] Performing Lab: [address] ([facility]) CBC LEUKOCYTES [#/VOLUME] IN BLOOD BY AUTOMATED COUNT 10.80 10*3/u L 4.0 - 11.0 11/23 Specimen Type: BLOOD No comment entered. Ordering Provider: AILIN CHESTER Report Released Date/Time: Nov 23, 2022 11:58 AM Reporting Lab: [place] [phone] Performing Lab: [address] ([facility]) CBC ERYTHROCYTE S [#/VOLUME] IN BLOOD BY AUTOMATED COUNT 3.87 10*6/u L 4.6 - 6.2 11/23 L Specimen Type: BLOOD No comment entered. Ordering Provider: AILIN CHESTER Report Released Date/Time: Nov 23, 2022 11:58 AM Reporting Lab: [place] [phone] Performing Lab: [address] ([facility]) CBC HEMOGLOBIN [MASS/VOLUM E] IN BLOOD 12.1 g/dL 13.5 - 17.9 11/23 L Specimen Type: BLOOD No comment entered. Ordering Provider: AILIN CHESTER Report Released Date/Time: Nov 23, 2022 11:58 AM Reporting Lab: [facility] [address] Performing Lab: [facility] [address] [place] ([facility]) CBC HEMATOCRIT [VOLUME FRACTION] OF BLOOD BY AUTOMATED COUNT 37.5 41 - 54 11/23 L Specimen Type: BLOOD No comment entered. Ordering Provider: AILIN CHESTER Report Released Date/Time: Nov 23, 2022 11:58 AM Reporting Lab: [place] [phone] Performing Lab: [address] [place] [address] ([facility]) CBC MCV [ENTITIC VOLUME] BY AUTOMATED COUNT 96.9 fL 80 - 100 11/23 Specimen Type: BLOOD No comment entered. Ordering Provider: AILIN CHESTER Report Released Date/Time: Nov 23, 2022 11:58 AM Reporting Lab: [facility] [address] Performing Lab: [facility] [phone] [place] [address] ([facility]) CBC MCH [ENTITIC MASS] BY AUTOMATED COUNT 31.3 pg 27 - 33 11/23 Specimen Type: BLOOD No comment entered. Ordering Provider: AILIN CHESTER Report Released Date/Time: Nov 23, 2022 11:58 AM Reporting Lab: [facility] [address] Performing Lab: [facility] [address] [place] ([facility]) CBC MCHC [MASS/VOLUM E] BY AUTOMATED COUNT 32.3 g/dL 32.0 - 37.5 11/23 Specimen Type: BLOOD No comment entered. Ordering Provider: AILIN CHESTER Report Released Date/Time: Nov 23, 2022 11:58 AM Reporting Lab: [facility] [address] Performing Lab: [place] [phone] [place] ([facility]) CBC PLATELETS [#/VOLUME] IN BLOOD BY AUTOMATED COUNT 293 10*3/u L 150 - 400 11/23 Specimen Type: BLOOD No comment entered. Ordering Provider: AILIN CHESTER Report Released Date/Time: Nov 23, 2022 11:58 AM Reporting Lab: [facility] [address] Performing Lab: [facility] [address] [place] ([facility]) CBC PLATELET MEAN VOLUME [ENTITIC VOLUME] IN BLOOD BY AUTOMATED COUNT 10.3 fL 7.4 - 10.4 11/23 Specimen Type: BLOOD No comment entered. Ordering Provider: AILIN CHESTER Report Released Date/Time: Nov 23, 2022 11:58 AM Reporting Lab: [address] Performing Lab: [address] ([facility]) CBC ERYTHROCYTE DISTRIBUTIO N WIDTH [RATIO] BY AUTOMATED COUNT 13.2 11.5 - 14.5 11/23 Specimen Type: BLOOD No comment entered. Ordering Provider: AILIN CHESTER Report Released Date/Time: Nov 23, 2022 11:58 AM Reporting Lab: [facility] [address] Performing Lab: [facility] [phone] [place] [address] ([facility]) HEMOGLOBI N A1C HEMOGLOBIN A1C/HEMOGLO BIN.TOTAL IN [...] 2022 11:58 AM Reporting Lab: [facility] [address] Performing Lab: [facility] [address] [place] ([facility]) COMPREHEN SIVE METABOLIC PANEL+MG CREATININE [MASS/VOLUM E] IN SERUM OR PLASMA 1.2 mg/dL 0.7 - 1.2 11/23 Specimen Type: PLASMA No comment entered. Ordering Provider: AILIN CHESTER Report Released Date/Time: Nov 23, 2022 11:58 AM Reporting Lab: [facility] [address] Performing Lab: [facility] [address] [place] ([facility]) COMPREHEN SIVE METABOLIC PANEL+MG UREA NITROGEN [MASS/VOLUM E] IN SERUM OR PLASMA 34 mg/dL 8 - 26 11/23 H Specimen Type: PLASMA No comment entered. Ordering Provider: AILIN CHESTER Report Released Date/Time: Nov 23, 2022 11:58 AM Reporting Lab: [facility] [address] Performing Lab: [facility] [address] [place] ([facility]) COMPREHEN SIVE METABOLIC PANEL+MG GLUCOSE [MASS/VOLUM E] IN SERUM OR PLASMA 54 mg/dL 70 - 100 11/23 L Specimen Type: PLASMA No comment entered. Ordering Provider: AILIN CHESTER Report Released Date/Time: Nov 23, 2022 11:58 AM Reporting Lab: [facility] [address] Performing Lab: [facility] [address] [place] ([facility]) COMPREHEN SIVE METABOLIC PANEL+MG SODIUM [MOLES/VOLU ME] IN SERUM OR PLASMA 143 mmol/L 136 - 145 11/23 Specimen Type: PLASMA No comment entered. Ordering Provider: AILIN CHESTER Report Released Date/Time: Nov 23, 2022 11:58 AM Reporting Lab: [facility] [address] Performing Lab: [facility] [address] [place] ([facility]) COMPREHEN SIVE METABOLIC PANEL+MG POTASSIUM [MOLES/VOLU ME] IN SERUM OR PLASMA 4.4 mmol/L 3.5 - 5.1 11/23 Specimen Type: PLASMA No comment entered. Ordering Provider: AILIN CHESTER Report Released Date/Time: Nov 23, 2022 11:58 AM Reporting Lab: [facility] [address] Performing Lab: [facility] [address] [place] ([facility]) COMPREHEN SIVE METABOLIC PANEL+MG CHLORIDE [MOLES/VOLU ME] IN SERUM OR PLASMA 107 mmol/L 98 - 107 11/23 Specimen Type: PLASMA No comment entered. Ordering Provider: AILIN CHESTER Report Released Date/Time: Nov 23, 2022 11:58 AM Reporting Lab: [facility] [address] Performing Lab: [facility] [address] [place] ([facility]) COMPREHEN SIVE METABOLIC PANEL+MG CARBON DIOXIDE, TOTAL [MOLES/VOLU ME] IN SERUM OR PLASMA 23 mmol/L 22 - 29 11/23 Specimen Type: PLASMA No comment entered. Ordering Provider: AILIN CHESTER Report Released Date/Time: Nov 23, 2022 11:58 AM Reporting Lab: [place] [phone] Performing Lab: [place] [phone] [place] ([facility]) COMPREHEN SIVE METABOLIC PANEL+MG CALCIUM [MASS/VOLUM E] IN SERUM OR PLASMA 9.7 mg/dL 8.4 - 10.2 11/23 Specimen Type: PLASMA No comment entered. Ordering Provider: AILIN CHESTER Report Released Date/Time: Nov 23, 2022 11:58 AM Reporting Lab: [facility] [address] Performing Lab: [facility] [address] [place] ([facility]) COMPREHEN SIVE METABOLIC PANEL+MG PROTEIN [MASS/VOLUM E] IN SERUM OR PLASMA 7.2 g/dL 6.0 - 8.3 11/23 Specimen Type: PLASMA No comment entered. Ordering Provider: AILIN CHESTER Report Released Date/Time: Nov 23, 2022 11:58 AM Reporting Lab: [facility] [address] Performing Lab: [facility] [address] [place] ([facility]) COMPREHEN SIVE METABOLIC PANEL+MG ALBUMIN [MASS/VOLUM E] IN SERUM OR PLASMA 4.1 g/dL 3.5 - 5.2 11/23 Specimen Type: PLASMA No comment entered. Ordering Provider: AILIN CHESTER Report Released Date/Time: Nov 23, 2022 11:58 AM Reporting Lab: [facility] [address] Performing Lab: [facility] [address] [place] ([facility]) COMPREHEN SIVE METABOLIC PANEL+MG BILIRUBIN.T OTAL [MASS/VOLUM E] IN SERUM OR PLASMA 0.5 mg/dL 0.2 - 1.2 11/23 Specimen Type: PLASMA No comment entered. Ordering Provider: AILIN CHESTER Report Released Date/Time: Nov 23, 2022 11:58 AM Reporting Lab: [facility] [address] Performing Lab: [facility] [address] [place] ([facility]) COMPREHEN SIVE METABOLIC PANEL+MG MAGNESIUM [MASS/VOLUM E] IN SERUM OR PLASMA 1.4 mg/dL 1.6 - 2.6 11/23 L Specimen Type: PLASMA No comment entered. Ordering Provider: AILIN CHESTER Report Released Date/Time: Nov 23, 2022 11:58 AM Reporting Lab: [facility] [address] Performing Lab: [facility] [address] [place] ([facility]) COMPREHEN SIVE METABOLIC PANEL+MG ANION GAP IN SERUM OR PLASMA 13 mmol/L 5 - 15 11/23 Specimen Type: PLASMA No comment entered. Ordering Provider: AILIN CHESTER Report Released Date/Time: Nov 23, 2022 11:58 AM Reporting Lab: [facility] [address] Performing Lab: [facility] [address] [place] ([facility]) COMPREHEN SIVE METABOLIC PANEL+MG ALKALINE PHOSPHATASE [ENZYMATIC ACTIVITY/VO LUME] IN SERUM OR PLASMA 87 U/L 40 - 150 11/23 Specimen Type: PLASMA No comment entered. Ordering Provider: AILIN CHESTER Report Released Date/Time: Nov 23, 2022 11:58 AM Reporting Lab: [facility] [address] Performing Lab: [facility] [address] [place] ([facility]) COMPREHEN SIVE METABOLIC PANEL+MG ALANINE AMINOTRANSF ERASE [ENZYMATIC ACTIVITY/VO LUME] IN SERUM OR PLASMA 28 U/L 11/23 Specimen Type: PLASMA No comment entered. Ordering Provider: AILIN CHESTER Report Released Date/Time: Nov 23, 2022 11:58 AM Reporting Lab: [facility] [address] Performing Lab: [facility] [address] [place] ([facility]) COMPREHEN SIVE METABOLIC PANEL+MG ASPARTATE AMINOTRANSF ERASE [ENZYMATIC ACTIVITY/VO LUME] IN SERUM OR PLASMA 33 U/L 11/23 Specimen Type: PLASMA No comment entered. Ordering Provider: AILIN CHESTER Report Released Date/Time: Nov 23, 2022 11:58 AM Reporting Lab: [facility] [id number] Performing Lab: [facility] [id number] [facility] ([facility]) COMPREHEN SIVE METABOLIC PANEL+MG GLOMERULAR FILTRATION RATE/1.73 SQ M.PREDICTED [VOLUME RATE/AREA] IN SERUM, PLASMA OR BLOOD BY CREATININE- BASED FORMULA (CKD-EPI 2020) 61 11/23 Specimen Type: PLASMA No comment entered. Ordering Provider: AILIN CHESTER Report Released Date/Time: Nov 23, 2022 11:58 AM Reporting Lab: [facility] [phone] Performing Lab: [facility] [address] [facility] ([facility]) Vital Signs Combined list of inpatient and [...] list of: 1) Encounters from Department of [facility] facilities going back up to thelast 18 months. 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 Location Location Details Encounter Type Encounter Number Reason For Visit Attending Provider ADM Date DC Date Status Disposition Source [facility] Outpatient Encounter [id number] 0[facility] [place].[id number] 513 11/11 [facility] Outpatient [facility]counter [id number] ZARI POWER 11/16 [facility] IS [facility] Outpatient Encounter [id number] 11/21 [facility] ([facility]) OFFICE O/P EST MOD 30-39 MIN [id number] Diagnos is: ICD-10- CM Z00.00 Encntr for general adult medical exam w/o abnorma l finding s
CANDELARIO CHESTER 11/23 [facility] ([facility]) [place] ([facility]) GAIT TRAINING THERAPY [id number] Diagnos is: ICD-10- CM R26.89 Other abnorma lities of gait and mobilit y
TRINOOMAYRA MCDERMOTT V 11/23 [facility] ([facility]) [place] [facility] Outpatient Encounter [id number] SA TRINO RA R 12/11 [place] [facility] [place] [facility] Outpatient Encounter [id number] 12/25 [place] [facility] [place] [facility] Outpatient Encounter [id number] SA TRINO RA R 12/28 [place] [facility] [place] [facility] Outpatient Encounter [id number] 01/05 [place] [facility] [place] [facility] Outpatient Encounter [id number] 01/11 [place] [facility] [place] [facility] Outpatient Encounter [id number] 01/16 [place] [facility] [place] ([facility]) OFFICE O/P EST HI 40-54 MIN [id number] Diagnos is: ICD-10- CM I50.9 Heart failure , unspeci fied
CANDELARIO CHESTER 01/23 [facility] ([facility] [place] [facility] Outpatient Encounter [id number] Marcus POTTS I 01/24 [place] [facility] [place] [facility] Outpatient Encounter [id number] Danica TORRE 02/05 [place] [facility] [place] [facility] Outpatient Encounter [id number] 02/09 [place] [facility] [place] [facility] Outpatient Encounter [id number] Danica TORRE 02/09 [place] [facility] [place] [facility] Outpatient Encounter [id number] 02/14 [place] [facility] [place] [facility] Outpatient Encounter [id number] 02/15 [place] [facility] [place] [facility] Outpatient Encounter [id number] 02/19 [place] [facility] [place] [facility] Outpatient Encounter [id number] 02/20 [place] [facility] [place] [facility] Outpatient Encounter [id number] 02/20 [place] [facility] [place] [facility] Outpatient Encounter [id number] 02/20 [place] [facility] [place] [facility] Outpatient Encounter [id number] 02/20 [place] [facility] [place] [facility] Outpatient Encounter [id number] 02/21 [place] [facility] [place] [facility] QNHP OL DIG ASSMT&MGMT 5-10 [id number] Diagnos is: ICD-10- CM E11.9 Type 2 diabete s mellitu s without complic ations< br/> HARDER,SIVA LY 02/22 [place] [facility] PRO PHONE CALL 11-20 MIN [id number] Diagnos is: ICD-10- CM I50.9 Heart failure , unspeci fied
JERMAINE ALCANTAR ANDMARIA INES M 02/23 [facility] ([facility] [place] [facility] Outpatient Encounter [id number] 02/26 [place] [facility] [place] [facility] Outpatient Encounter [id number] 03/01 [place] [facility] [place] [facility] Outpatient Encounter [id number] 03/05 [place] [facility] [place] [facility] Outpatient Encounter [id number] SA RA Sandra JAMESON 03/09 [place] [facility] [place] [facility] Outpatient Encounter [id number] 03/14 [place] [facility] [place] [facility] Outpatient Encounter [id number] TRINO R 04/12 [facility] [place] [facility] Outpatient Encounter [id number] [facility] R 04/16 [facility] [place] [facility] Outpatient Encounter [id number] [facility] R 05/01 [facility] [place] [facility] Outpatient Encounter [id number] 07/11 [facility] [place] [facility] Outpatient Encounter [id number] [facility] [place] [facility] Outpatient Encounter [id number] 07/12 [facility] IS [facility] PRO PHONE CALL 5-10 MIN [id number] Diagnos is: ICD-10- CM 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
VIV BARFIELD 07/19 [facility] HEARING AID REPAIR/MOD IFYING [id number] Diagnos is: ICD-10- CM 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
CARY CORCORAN 08/09 [facility] HEARING AID FITTING/CH ECKING [id number] Diagnos is: ICD-10- CM 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
Sy MAKI 09/17 [facility] [place] [facility] Outpatient Encounter [id number] 10/17 [facility] ([facility]) OFFICE O/P EST HI 40 MIN [id number] Diagnos is: ICD-10- CM E11.9 Type 2 diabete s mellitu s without complic ations< br/> CANDELARIO CHESTER 11/07 [facility] ([facility]) [place] ([facility]) PT EVAL MOD COMPLEX 30 MIN [id number] Diagnos is: ICD-10- CM Z74.09 Other reduced mobilit y
OMAYRA JAMESON NTER V 12/17 [facility] ([facility]) [facility] IS [facility] Outpatient Encounter [id number] 01/03 [facility] [place] [facility] Outpatient Encounter [id number] 01/09 [facility] WHEELCHAIR MNGMENT TRAINING [id number] Diagnos is: ICD-10- CM R53.1 Weaknes s
ANDERS EATON R 01/29 [facility] Outpatient Encounter [id number] 01/30 [facility] HEARING AID CHECK BOTH EARS [id number] Diagnos is: ICD-10- CM Z46.1 Encount er for fitting and adjustm ent of hearing aid<br/ > SUZY BLACK AEL F 02/01 [facility] Outpatient Encounter [id number] SA TRINO RA R 02/11 [facility] [place] [facility] Outpatient Encounter [id number] 02/25 [facility] [place] [facility] Outpatient Encounter [id number] JYOTSNA SMART 03/10 [facility] ([facility]) OFFICE O/P EST MOD 30 MIN [id number] Diagnos is: ICD-10- CM L89.623 Pressur e ulcer of left heel, stage 3
CANDELARIO CHESTER 03/11 [facility] ([facility]) [facility] Outpatient Encounter [id number] Danica TORRE 03/12 [facility] Outpatient Encounter [id number] 03/12 [facility] Outpatient Encounter [id number] 03/18 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
CIARA BALDERRAMA J 03/20 [facility] HEARING AID REPAIR/MOD IFYING [id number] Diagnos is: ICD-10- CM 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
SHARONDA MCMULLEN RTHA R 03/20 [facility] CASE MANAGEMENT [id number] Diagnos is: ICD-10- CM Z65.8 Oth problem s related to psychos ocial circums tances< br/> KAYLEE HORTON G 03/20 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
KEIRA JEAN 04/01 [facility] IS [facility] WHEELCHAIR MNGMENT TRAINING [id number] Diagnos is: ICD-10- CM R53.1 Weaknes s
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 Social History Type Response Date Comment [facility] e Tobacco smoking status [facility] QUIT 15 YRS OR MORE 11/08/2023 [place] ([facility]) History of tobacco use [facility] FORMER [facility] 11/08/2023 [place] ([facility] History of tobacco use [facility] FORMER US[facility] 11/23/2022 [place] ([facility] History of tobacco use [facility] FORMER US[facility] 11/29/2021 [place] ([facility] History of tobacco use [facility] FORMER US[facility] 10/21/2020 [place] ([facility]
--- OUTSIDE RECORDS SUMMARY | 2024-04-14 14:56 | XMS_ITS | Encounter Summary ---
Author Name [facility] [place] [facility] [place] Address [address] [place] [address] Care Team Providers Care Lining Baster Name Role Phone JIMENEZ CHESTER Primary Care [...] [facility] (WNR) MEDICARE ADVANTAGE [facility] (WNR) May 14, 2020 [id number] [phone] [id number] [phone] PITER CASAS ERD PATIENT Selected Encounter This [...] of right leg below knee [facility] Plan of Treatment: Future Appointments (+ 6 months) and Future Tests (+/- 45 days) The Plan of Treatment section includes future care activities for the patient from all [place] treatmentfacilities. This section includes future appointments and future orders which are active, pending or scheduled. Future Appointments This section includes appointments that were scheduled to occur 6 months from the date of the Encounter, up to a maximum of 20 appointments. The data comes from all [facility] facilities. Appointment Date/Time Appointment Type Appointme nt Facility Name Apr 07, 2024 10:30 AM AMBULATORY - REHAB [facility] Encounter Notes: All associated encounter [...] position of a minivan vehicle via his [employer] Stretto PWC includes: Vet and plan to purchase a 2023 [employer] [place] 1. Full wheelchair-accessible minivan conversion package (i.e., lowered floors, lowered doors, keyless entry, power sliding doors) with standard 54-inch side-entry door opening height with power fold-out vs. power in-floor ramp. 2. Q'Straint QLK, EZ-Lock, or equivalent, wheelchair docking system for vet's [employer] Q6 Edge 3 PWC, with flight operations dispatch clerk positioned in front passenger- side position of vehicle. 3. Seat belt flight operations dispatch clerk extension secured to floor via in-floor track [...] 04/01/2024 07:13 Receipt Acknowledged By: 04/01/2024 09:17 /irccardo/ VLADIMIR NGUYỄN Prosthetics 04/08/2024 15:41 /riccardo/ LISANDRA GUTIERREZ PROSTHETIC REP (TCF) [facility]
--- OUTSIDE RECORDS SUMMARY | 2024-04-14 14:57 | XMS_ITS | Referral Summary ---
Author Organization [facility] Address [address] [place] [address] Care Team Providers Care Reaming Machine Operator For Plastic Name Role Phone None Reported, Pcp Primary Care Provider Unavail able Source Comments Patient records contain information from all sites at [facility]. For routine questions regarding patient records, call [phone] during business hours, M-F 8:00 AM - 5:00 PM Central Time. Record requests for emergency care only can be directed to [phone] at any time.[facility] Encounters Date Type Department Care Team Description 03/12/2024 Refill [facility] [address] [place] [address] Hannah Castillo, RAYNA, C.N.P. Med [...] guaze. Assessment & Plan (06/15/2023 4:18 PM CLAIMS DIRECTOR): The wound bed is clean. A thin layer of silver stat will be applied with a gauze. Change daily. 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 Left Heel: Area continues to improve. Wound measures [id number]. Edges well defined, attached and 100% re-epithelialized tissues. Granulation tissue is observed along the lining of the edges under the bed of slough/eschar. Eschar is soft but not mushy. Wound bed is still approx 95% or more of slough/eschar. Scant drainage with dressing change. Resident tolerated cares without any concerns. New wound orders as follows: Assessment & Plan (06/15/2023 4:10 PM CLAIMS DIRECTOR): 1: Gently cleanse area with NS. Pat dry. 2. Skin prep to gonsalo-wound. 3. Santyl to wound bed only. 4. Place gauze over wound. 5. cover with island dressing. 6. Change dressing daily. He may be discharged to home with home nursing for wound care . Assessment & Plan (06/01/2023 2:33 PM CLAIMS DIRECTOR): Continue wound care and have PAIN MEDICINE PHYSICIAN evaluate in one week. Dementia 05/20/2023 Overview (05/24/2023): No documented dementia or behaviors Assessment & Plan (05/24/2023 5:57 PM CLAIMS DIRECTOR): He has low hearing which could contribute to him not understanding Assessment & Plan (05/20/2023 4:20 PM CLAIMS DIRECTOR): Although initial BIMS testing scored 14, he has had episodes of what seems to be sundowning with strong suspicion of underlying dementia. Will have OT further evaluate. Hyperglycemia 04/22/2023 Overview (04/22/2023): Prior to recent hospitalization, insulin glargine dose was 25 units daily and short-acting insulin 10 units with meals. Assessment & Plan (05/24/2023 6:00 PM CLAIMS DIRECTOR): A1C 7.2 He will follow up with his PCP in [place] Assessment & Plan (04/22/2023 8:28 PM CLAIMS DIRECTOR): His appetite has been poor and he [...] side. 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 He will need a standard wheelchair Mr. Woods was admitted to [facility] April 10 following BK right lower extremity. [...] site Assessment & Plan (04/16/2023 7:55 PM CLAIMS DIRECTOR): Pain is well controlled. Stump care consists of washing with normal saline and dry. Cover with dry gauze or ABD b.i.d. he is wearing the knee brace to maintain extension in his working with therapies. He has follow-up with vascular surgery 05/11/2023. Assessment & Plan (04/12/2023 4:53 PM CLAIMS DIRECTOR): Patient and mentioned he is doing well [...] 75mcg. Assessment & Plan (06/05/2023 9:25 PM CLAIMS DIRECTOR): TSH value improved compared to prior value of 16.0 a month ago. Resident /nursing denied symptoms of hypothyroidism. Last T4 was 0.92 in April 2023. chaplain resident confirmed levothyroxine is given every morning (6am) without other medications. Therefore, we will increase levothyroxine 50mcg to 75mcg and rechecked TSH in 6 weeks. Nursing instructed to continue monitoring for symptoms of hypothyroidism and contact [facility] provider if any concerns. Assessment & Plan (05/24/2023 5:24 PM CLAIMS DIRECTOR): Increase levothyroxine to 50 mcg daily. alf may give two 25 mcg tablets to equal 50 mcg. He will be discharging in a week Assessment & Plan (04/23/2023 12:56 PM CLAIMS DIRECTOR): TSH will be done. He is currently on levothyroxine 25 mcg daily. Dose will need to be adjusted if TSH is elevated. Assessment & Plan (04/16/2023 7:56 PM CLAIMS DIRECTOR): Recheck TSH mid April. Assessment & Plan (04/12/2023 4:45 PM CLAIMS DIRECTOR): Continue levothyroxine. TSH reordered. 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 Assessment & Plan (04/12/2023 4:08 PM CLAIMS DIRECTOR): Plans to discharge back home. Patient remains [...] home with home health care. Follow-up with [facility] provider Assessment & Plan (01/17/2023 2:06 PM [...] status Assessment & Plan (05/24/2023 5:15 PM CLAIMS DIRECTOR): He will be full code Assessment & Plan (01/17/2023 2:30 PM CDT): Continue full code status Hyperlipidemia 01/16/2023 Overview (05/24/2023): On atorvastatin Assessment & Plan (05/24/2023 6:01 PM CLAIMS DIRECTOR): Stay on statin Assessment & Plan (01/17/2023 2:35 PM CDT): Continue atorvastatin Assessment & Plan (01/17/2023 2:01 PM CDT): Continue atorvastatin Weakness General 01/16/2023 Overview (01/16/2023): This is multifactorial and related to recent hospitalizations and multiple comorbidities. Assessment & Plan (06/05/2023 9:26 PM CLAIMS DIRECTOR): Denied weakness. We will continue therapy. Assessment & Plan (05/24/2023 6:05 PM CLAIMS DIRECTOR): He is getting stronger with therapy. He will continue therapy when he gets his prosthesis. He will have a wheelchair upon discharge. Assessment & Plan (04/12/2023 4:09 PM CLAIMS DIRECTOR): Verbalized improvement with weakness. We will continue [...] 04/11/2023 Assessment & Plan (04/12/2023 3:58 PM CLAIMS DIRECTOR): Stable. Denied dizziness, lightheadedness, shortness of breaths and palpitation. Assessment & Plan (01/17/2023 2:30 PM CDT): Stable. Assessment & Plan (01/17/2023 1:58 PM CDT): Stable. Assessment & Plan (01/16/2023 7:16 PM CDT): Most recent hemoglobin 9.3. Atherosclerotic Heart Diseas e Of [place] Coronary Artery Without Angina Pectoris 01/15/2023 Overview [...] RAP). Assessment & Plan (05/24/2023 5:52 PM CLAIMS DIRECTOR): Stable on current meds Assessment & Plan (04/23/2023 1:02 PM CLAIMS DIRECTOR): BNAP 31,578 on 04/16/23. Dr. Gerardo increased furosemide to 40 mg bid and added spironolactone 25 mg daily. Weight today in [place] was 174 lb. No edema noted in left leg. No dyspnea. On O2 per N/C continuous. No change in medications until renal function results are available. Assessment & Plan (04/16/2023 7:41 PM CLAIMS DIRECTOR): He had multiple medication changes during hospitalization including discontinuation of spironolactone and Entresto. Farxiga is being held. Metoprolol and furosemide doses were decreased. Assessment & Plan (04/12/2023 4:01 PM CLAIMS DIRECTOR): No admission weight yet. Nursing to check [...] 12/22/2022 Assessment & Plan (04/22/2023 8:26 PM CLAIMS DIRECTOR): Pro BN AP earlier today greater than [...] Apixaban Assessment & Plan (05/24/2023 5:53 PM CLAIMS DIRECTOR): half-way anticoagulation on apixaban Assessment & Plan (04/23/2023 1:03 PM CLAIMS DIRECTOR): Ventricular rate controlled today Assessment & Plan (04/12/2023 3:59 PM CLAIMS DIRECTOR): HR well controlled ranging from 82-85. Continue care plan. Assessment & Plan (01/17/2023 2:31 PM CDT): HR well controlled ranging from 64-99. Continue care plan. Assessment & Plan (01/16/2023 8:24 AM CDT): HR well controlled. Continue care plan. Skilled Nursing Use Of Insulin Active 12/09/2022 Overview (01/16/2023): On insulin glargine and aspart started during hospitalization December 2022. Assessment & Plan (05/24/2023 5:20 PM CLAIMS DIRECTOR): Nurse reports he is nonadherent to his [...] daily Assessment & Plan (06/07/2023 2:51 PM CLAIMS DIRECTOR): Blood sugars have been elevated due to [...] hypoglycemia. Assessment & Plan (05/29/2023 7:56 PM CLAIMS DIRECTOR): Patient's blood sugar continued to be on [...] sugar diets like he does at the [facility]. I have discussed with nursing on encouraging [...] possible. Assessment & Plan (05/24/2023 5:59 PM CLAIMS DIRECTOR): Insulin dependent not always compliant with diet. Glargine will be increased to 17 units. Assessment & Plan (05/22/2023 6:43 PM CLAIMS DIRECTOR): Blood sugar continued to be elevated mostly [...] 3 times daily with meals. Follow-up with PAIN MEDICINE PHYSICIAN next week. Dietitian/dietary to visit with patient and to discuss food options. Assessment & Plan (05/20/2023 4:22 PM CLAIMS DIRECTOR): Recent blood sugars in the SNF setting have been elevated. Short and long-acting insulin doses have changed significantly since admission. Will have him follow- up with PAIN MEDICINE PHYSICIAN for further review of blood sugars. Assessment & Plan (04/23/2023 1:04 PM CLAIMS DIRECTOR): Blood sugars not controlled. Increase Lantus to 14 units from 12. Assessment & Plan (04/16/2023 7:42 PM CLAIMS DIRECTOR): Was previously on glipizide and higher doses of mealtime aspart. Blood sugars are being checked 4 times daily. May need insulin readjusted. Assessment & Plan (04/12/2023 4:04 PM CLAIMS DIRECTOR): Blood sugars have been I< 200s. Currently [...] to 25 units and follow-up. Atherosclerosis Of [place] Ar teries Of Other Extremities With Ulceration [...] 120-130 Assessment & Plan (04/12/2023 4:07 PM CLAIMS DIRECTOR): Images from the original note were not [...] redness. Assessment & Plan (05/24/2023 5:14 PM CLAIMS DIRECTOR): Stable Assessment & Plan (04/29/2023 7:54 PM CLAIMS DIRECTOR): Today, nursing had reported left lower calf and ankle redness with open wound. On assessing the left calf/ankle, there was an open skin area (abrasion) that has no redness, swelling nor drainage. The skin was not warmth to touch and patient denied pain at 0/10 (nurse manager of housekeeping was in attendance during visit). Nursing stated does look better than what it was this morning. They have been cleaning the wound area in apply Mepilex. Since there was no symptoms or evidence of infection on the left lower calf and ankle redness with open wound, nursing was instructed to continue skin check daily and current dressing. Contact [facility] providers if worsening skin condition. Of note, [...] for COVID-19 12/27/2022. Treated with remdesivir at [facility]. Anemia 01/16/2023 04/12/2023 Overview (04/12/2023): Lab Results Component Value Date WBC 9.0 04/11/2023 HGB 7.8 (L) 04/11/2023 HCT 24.9 (L) 04/11/2023 MCV 95 04/11/2023 PLT 381 04/11/2023 Assessment & Plan (04/12/2023 3:57 PM CLAIMS DIRECTOR): CBC reordered. Denied dizziness, lightheadedness, shortness of [...] 04/11/2023 Assessment & Plan (04/12/2023 4:05 PM CLAIMS DIRECTOR): BMP ordered. Assessment & Plan (01/17/2023 2:35 [...] Overview (01/15/2023): Onychomycosis of toenails; Original Code: [id number] Original Codesystem: SNOMED CT Classification: Medical Confirmation [...] Comments Blood Pressure 107/66 06/18/2023 1:10 PM CLAIMS DIRECTOR Pulse 78 06/18/2023 1:10 PM CLAIMS DIRECTOR Temperature 36.6 C (97.8 F) 06/18/2023 1:10 PM CLAIMS DIRECTOR Respiratory Rate 16 06/18/2023 1:10 PM CLAIMS DIRECTOR Oxygen Saturation 95% 06/18/2023 1:10 PM CLAIMS DIRECTOR Inhaled Oxygen Concentration - - Weight 75.8 kg (167 lb) 06/18/2023 1:10 PM CLAIMS DIRECTOR Height 175.3 cm (5' 9) 04/12/2023 3:21 PM CLAIMS DIRECTOR Body Mass Index 24.66 04/12/2023 3:21 PM CLAIMS DIRECTOR Plan of Treatment Not on file Insurance MEDICARE [facility] Advance Directives For more information, please contact: [phone] * DNR/DNI (Latest Code Status on File) Date Activated Date Inactivated Comments 05/24/2023 6:14 PM * DNR/DNI Date Activated Date Inactivated Comments 04/12/2023 4:11 PM 04/16/2023 7:15 AM Care Teams Reaming Machine Operator For Plastic Relationship Specialty Start Date End Date None Reported, Pcp PCP - General 03/21/24
--- OUTSIDE RECORDS SUMMARY | 2024-04-14 14:57 | XMS_ITS | Clinical Summary ---
Author Organization [facility] Address [place], [place] [address] Care Team Providers Care Manager Pacu Name Role Phone VotelMelquiades MD Primary Care Provider + Nurses, Advanced Heart Failure Unavailable + Shade Manuel MD Unavailable [facility], [place] Unavailable [phone] Allergies No known active allergies Medications Medication Sig Dispensed Refills Start Date End Date Status blood-glucose meterIndications :Type 2 diabetes mellitus with complication (HC) Ascensia Glucometer, Dispense meter, test strips, lancets covered by pt ins. Test 3 times daily 1 Device 1 Active Insulin [place], Disposable, (Novofine 32) 32 gauge x 1/4Indications: [...] 3 3 Active acetaminophen (TYLENOL) 325 mg tabletIndication [...] times daily. Active levothyroxine (Synthroid) 75 mcg tabletIndication s:Hypothyroidism [...] 3 4 Active clotrimazole (LOTRIMIN) 1 % creamIndications :Balanitis Apply topically to affected area(s) two times daily. Use for 3 weeks. 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 Change each sensor every 10 days 9 Each 3 4 Active metoprolol succinate (Toprol XL) 25 mg Sustained-Releas e tabletIndication s:HFrEF (heart failure with reduced ejection fraction) (HC) Take 0.5 Tablets (12.5 mg) by mouth once daily in the evening. 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 Up to 3 tablets in 15 minutes. 50 Tablet 1 4 Active pregabalin (LYRICA) 50 mg capsuleIndicatio ns:Phantom limb pain (HC) Take 1 Capsule (50 mg) by mouth three times daily. 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 30 mL 3 4 Active pantoprazole (PROTONIX) 40 mg delayed-release tabletIndication s:Gastroesophage al reflux disease, unspecified whether esophagitis present TAKE 1 TABLET(40 MG) BY MOUTH EVERY DAY 90 Tablet 1 4 Active pantoprazole (PROTONIX) 40 mg delayed-release tabletIndication s:Gastroesophage al reflux disease, unspecified whether esophagitis present Take 1 Tablet (40 mg) by mouth once daily. 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 11/25/2019 HTN (hypertension) 10/28/2015 Hyperlipidemia LDL goal <70 10/28/2015 Adenomatous colon polyp 04/13/2015 Overview (03/16/2020): Colonoscopy 04/2015 polyps repeat in 5 years Colonoscopy 03/2020 polyps, repeat in 5 years Background diabetic retinopathy(362.01) 07/10/19 08 Unspecified hearing loss 07/10/2007 Coronary atherosclerosis of unspecified type of vessel, prairie band or graft Overview (11/08/2011): 4 vessel CABG 2001 Lexiscan only for cardiac evaluation - no treadmill Other ill-defined and unknow n causes of morbidity and mortality Impotence of organic origin Resolved Problems Problem Noted Date Diagnosed Date Resolved Date Type 2 diabetes mellitus with complication 11/16/2017 12/22/2022 Heart disease, unspecified 0 07/10/2007 Encounters Date Type Department Care Team Description 04/11/2024 12:00 PM LOCKSTITCH HEMMER Home Care Visit [facility] [address] [place] [address] Lidia Mccoy RN SN - HOME VISIT 04/09/2024 Refill [facility] [address] [place] [address] Melquiades Man MD Refill Request (Pantoprazole) 04/04/2024 Telephone [facility] [address] [facility] [place] [address] Lidia Mccoy RN Home Care (Patient was admitted to Home Care ) 04/03/2024 Telephone [facility] [address] [place] [address] Melquiades Man MD Medication Management (The following severe interactions and/or contraindicated drug combinations were noted today:/1. apixaban and clopidogreL/Concurren t use of apixaban with antiplatelets may increase the risk of bleeding.(1-4)//Provi meron: Please advise if any changes are indicated. ) 04/02/2024 10:30 AM LOCKSTITCH HEMMER Home Care Visit [facility] [address] [place] [address] Lidia Mccoy RN SN - OASIS START OF CARE 04/02/2024 Plan of Care Documentation [facility] [address] [place] [address] 03/31/2024 Transcribe Orders [facility] [address] [place] [address] Brenda Hart NP 03/14/2024 Telephone [facility] [address] [place] [phone] Shade Manuel MD Follow Up 03/13/2024 11:00 AM CDT Patient Outreach [facility] [address] [place] [address] Priyanka Hummel RN Diabetes (Follow-up) 03/13/2024 Travel 03/12/2024 Refill [facility] [address] [place] [address] Melquiades Man MD Refill Request ([place] U-100 Insulin) 02/22/2024 1:40 PM CDT Orders Only [facility] [address] [place] [address] Lab, [facility] 02/22/2024 Travel 02/17/2024 Travel 02/12/2024 Telephone [facility] [address] [place] [address] Shade Manuel MD Follow Up 02/10/2024 8:12 AM CDT - 02/10/2024 12:50 PM CDT Emergency [facility] [address] [place] [address] Shira Morley MD Del Castillo, Isabelle Jennifer Rose Farro, MD Altered mental status, unspecified altered mental status type (Primary Dx); Lethargy; ALEX (acute kidney injury) (HC); Dehydration Discharge Disposition: Home Self Care 02/10/2024 Travel 02/07/2024 11:00 AM CDT Patient Outreach [address] [address] 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 Hummel music teacher (F/u insulin management) 02/07/2024 Travel 02/04/2024 Orders Only [facility] Scanner 1 scan: (1-Ord) [facility], CERVICAL SPINE WO, 02/04/2024 02/04/2024 Orders Only [facility] Scanner 1 scan: (1-Ord) [facility], CT HEAD/BRAIN WO CON, 02/04/2024 02/04/2024 Nurse Triage [facility] [address] [place] [address] Melquiades Man MD Neck Pain/problem 01/17/2024 12:40 PM CDT Orders Only [address] [address] Lab, [facility] 01/17/2024 11:00 AM CDT Patient Outreach [facility] [address] [place] [phone] Priyanka Hummel RN Diabetes (Download CGM for insulin management) 01/17/2024 Telephone [facility] [address] [place] [address] Votel, Melquiades Gray MD 01/17/2024 Travel from Last 3 Months Immunizations Name [...] Brother kidney problems Heart Disease Father 1st [place] at 65 d 77 yo CHF Diabetes Mother Heart Disease Mother d 64 yo [place] Genetic Other There is a posi tive [...] Sign Reading Time Taken Comments Blood Pressure 91/43 04/11/2024 2:16 PM LOCKSTITCH HEMMER Pulse 71 04/11/2024 2:16 PM LOCKSTITCH HEMMER Temperature 36.9 C (98.4 F) 04/11/2024 1:51 PM LOCKSTITCH HEMMER Respiratory Rate 18 04/11/2024 2:16 PM LOCKSTITCH HEMMER Oxygen Saturation 99% 04/11/2024 1:51 PM LOCKSTITCH HEMMER Inhaled Oxygen Concentration - - Weight 86.2 kg (190 lb) 04/02/2024 1:52 PM LOCKSTITCH HEMMER Height 175.3 cm (5' 9) 02/10/2024 8:20 AM CDT Body Mass Index 28.06 02/10/2024 8:20 AM CDT Plan of Treatment Upcoming Encounters Date Type Department Care Team (Late st Contact Info) Description 04/15/2024 11:00 AM LOCKSTITCH HEMMER Ancillary Procedure [facility] [address] [place] [address] 04/16/2024 4:00 AM LOCKSTITCH HEMMER Home Care Visit [facility] [address] [place] [phone] Lidia Mccoy, RN 04/18/2024 4:00 AM LOCKSTITCH HEMMER Home Care Visit [facility] [address] [place] [phone] Lidia Mccoy, RN 04/23/2024 4:00 AM LOCKSTITCH HEMMER Home Care Visit [facility] [address] [place] [phone] Lidia Mccoy, RN 04/25/2024 4:00 AM LOCKSTITCH HEMMER Home Care Visit [facility] [address] [place] [phone] Lidia Mccoy, RN 04/30/2024 4:00 AM LOCKSTITCH HEMMER Home Care Visit [facility] [address] [place] [phone] Lidia Mccoy, RN 05/02/2024 4:00 AM LOCKSTITCH HEMMER Home Care Visit [facility] [address] [place] [phone] Lidia Mccoy, RN 2024 4:00 AM LOCKSTITCH HEMMER Home Care Visit [facility] [address] [place] [phone] Lidia Mccoy, RN 05/09/2024 4:00 AM LOCKSTITCH HEMMER Home Care Visit [facility] [address] [place] [phone] Lidia Mccoy, RN 05/14/2024 4:00 AM LOCKSTITCH HEMMER Home Care Visit [facility] [address] [place] [address], [place] [address] Lidia Mccoy, RN 05/15/2024 11:10 AM LOCKSTITCH HEMMER Orders Only [place] [address] [facility] [place] [address] Lab, [facility] 05/16/2024 4:00 AM LOCKSTITCH HEMMER Home Care Visit [facility] [address] [place] [phone] Lidia Mccoy, SIS 05/21/2024 4:00 AM LOCKSTITCH HEMMER Home Care Visit [facility] [address] [place] [address], [place] [address] Lidia Mccoy, SIS 05/22/2024 10:30 AM LOCKSTITCH HEMMER Office Visit [facility] [address] [place] [address] Dr [address] [place] [address] Shade Manuel MD [address] [address] 05/23/2024 4:00 AM LOCKSTITCH HEMMER Home Care Visit [facility] [address] [place] [phone] Lidia Mccoy, SIS 05/28/2024 4:00 AM LOCKSTITCH HEMMER Home Care Visit [facility] [address] [place] [phone] Lidia Mccoy, RN 05/30/2024 4:00 AM LOCKSTITCH HEMMER Home Care Visit [facility] [address] [place] [address], [place] [address] Lidia Mccoy, RN Health Maintenance Due Date [...] STAT 02/10/2024 8:41 AM CDT SCAN-CT INTERPRETATION 12:00 AM CDT SCAN-CT INTERPRETATION 12:00 AM CDT BASIC METABOLIC PANEL Routine 01/17/2024 11:44 AM CDT HFrEF (heart failure with reduced ejection fraction) (HC) from Last 3 Months Results * (ABNORMAL) BASIC METABOLIC PANEL (03/13/2024 11:23 AM CDT) Only the most recent of4 resultswithin the time period is included. GLUCOSE 115 65 - 139 mg/dL [facility] Comment: Non-fasting reference interval UREA [...] NO Shade Manuel MD CHEMISTRY [facility] [address] [place] [address], [facility] [address] [place] [address] * URINALYSIS MICROSCOPIC (02/10/2024 10:19 AM CDT) RBC None Seen 0-2, None Seen /HPF 02/10/2024 10:45 AM CDT [facility] WBC None Seen 0-2, 3-5, None Seen /HPF 02/10/2024 10:45 AM CDT [facility] BACTERIA None Seen None Seen, Rare, Few Bacteria/ HPF 02/10/2024 10:45 AM CDT [facility] EPITHELIAL CELLS Few None Seen, Few Epi/HPF 02/10/2024 10:45 AM CDT [facility] Urine URINE SPECIMEN / Unknown Non-Blood / Unknown 02/10/2024 10:19 AM CDT 02/10/2024 10:23 AM CDT Shira Morley MD URINE [facility] [address] [place] [address] * URINE CULTURE (02/10/2024 10:19 AM CDT) CULTURE 10-50,000 CFU/mL of multiple organisms, probable contaminants 02/11/2024 10:36 AM CDT [facility] Urine URINE SPECIMEN / Unknown Non-Blood / Unknown 02/10/2024 10:19 AM CDT 02/10/2024 10:23 AM T Shira Morley MD MICROBIOLOGY [facility] [address] [place] [address], [place] * (ABNORMAL) UA W/ SEDIMENT EXAM REFLEXED PER CRITERIA (02/10/2024 10:19 AM CDT) COLOR Yellow Yellow Color 02/10/2024 10:28 AM [facility] CLARITY Clear Clear Clarity 02/10/2024 10:28 AM [facility] SPECIFIC GRAVITY,URINE 1.015 1.010, 1.015, 1.020, 1.025 02/10/2024 10:28 AM [facility] PH,URINE 5.5 6.0, 7.0, 8.0, 5.5, 6.5, 7.5, 8.5 02/10/2024 10:28 AM [facility] UROBILINOGEN, QUALITATIVE Normal Normal EU/dl 02/10/2024 10:28 AM [facility] PROTEIN, URINE Negative Negative mg/dL 02/10/2024 10:28 AM [facility] GLUCOSE, URINE >=1000(A) Negative mg/dL 02/10/2024 10:28 AM [facility] KETONES,URINE Negative Negative mg/dL 02/10/2024 10:28 AM [facility] BILIRUBIN,URI NE Negative Negative 02/10/2024 10:28 AM [facility] OCCULT BLOOD,URINE Negative Negative 02/10/2024 10:28 AM [facility] NITRITE Negative Negative 02/10/2024 10:28 AM [facility] LEUKOCYTE ESTERASE Negative Negative 02/10/2024 10:28 AM [facility] Urine URINE SPECIMEN / Unknown Non-Blood / Unknown 02/10/2024 10:19 AM CDT 02/10/2024 10:23 AM CDT Shira Morley MD URINE [facility] [address] [place] [address] * CT HEAD BRAIN WO (02/10/2024 9:00 [...] 11.0 thou/cu mm 02/10/2024 8:58 AM CDT [facility] RED BLOOD COUNT 3.47(L) 4.30 - 5.90 mil/cu mm 02/10/2024 8:58 AM CDT [facility] HEMOGLOBIN 10.2(L) 13.5 - 17.5 g/dL 02/10/2024 8:58 AM [facility] HEMATOCRIT 32.8(L) 37.0 - 53.0 % 02/10/2024 8:58 AM [facility] MCV 95 80 - 100 fL 02/10/2024 8:58 AM [facility] MCH 29.4 26.0 - 34.0 pg 02/10/2024 8:58 AM [facility] MCHC 31.1(L) 32.0 - 36.0 g/dL 02/10/2024 8:58 AM [facility] RDW 14.9 11.5 - 15.5 % 02/10/2024 8:58 AM [facility] PLATELET COUNT 271 140 - 440 thou/cu mm 02/10/2024 8:58 AM [facility] MPV 10.1 6.5 - 11.0 fL 02/10/2024 8:58 AM [facility] % NEUT 70.9 % 02/10/2024 8:58 AM [facility] % LYMPH 14.1 % 02/10/2024 8:58 AM [facility] % MONO 8.8 % 02/10/2024 8:58 AM [facility] % EOS 5.9 % 02/10/2024 8:58 AM [facility] % BASO 0.3 % 02/10/2024 8:58 AM [facility] ABSOLUTE NEUTROPHILS 5.4 1.7 - 7.0 thou/cu mm 02/10/2024 8:58 AM [facility] ABSOLUTE LYMPHOCYTES 1.1 0.9 - 2.9 thou/cu mm 02/10/2024 8:58 AM [facility] ABSOLUTE MONOCYTES 0.7 <0.9 thou/cu mm 02/10/2024 8:58 AM [facility] ABSOLUTE EOSINOPHILS 0.5(H) <0.5 thou/cu mm 02/10/2024 8:58 AM [facility] ABSOLUTE BASOPHILS 0.0 <0.3 thou/cu mm 02/10/2024 8:58 AM CDT [facility] Blood BLOOD SPECIMEN / Unknown Butterfly / Unknown 02/10/2024 8:41 AM CDT 02/10/2024 8:45 AM CDT Shira Morley MD HEMATOLOGY Performing Organization Address [facility] Co de Phone Number [facility] [address] [place] [address] * LACTATE VENOUS (02/10/2024 8:41 AM CDT) LACTATE,VENOUS 1.6 0.5 - 2.0 mmol/L 02/10/2024 9:07 AM CDT [facility] Blood BLOOD SPECIMEN / Unknown Butterfly / Unknown 02/10/2024 8:41 AM CDT 02/10/2024 8:45 AM CDT Shira Morley MD CHEMISTRY Performing Organization Address [facility] Co de Phone Number [facility] [address] [place] [address] * TSH (02/10/2024 8:41 AM CDT) Pathologist [facility] TSH 2.91 0.27 - 4.20 uIU/mL 02/10/2024 9:16 AM CDT [facility] Blood BLOOD SPECIMEN / Unknown Butterfly / Unknown 02/10/2024 8:41 AM CDT 02/10/2024 8:45 AM CDT Narrative [facility] - 02/10/2024 9:16 AM CDT In Adults, TSH values between 5.00 and 10.00 uIU/ml do not necessarily indicate the presence of Hypothyroidism. Correlation with clinical findings such as presence of goiter and/or Thyroperoxidase (TPO) Antibody may be helpful. For more information please refer to RONNIE 2004; 291: 228-238. Shira Morley MD CHEMISTRY [facility] [address] [place] [address] * AMMONIA (02/10/2024 8:41 AM CDT) [facility] [address] AMMONIA 14 11 - 51 umol/L 02/10/2024 9:07 AM T [facility] Blood BLOOD SPECIMEN / Unknown Butterfly / Unknown 02/10/2024 8:41 AM CDT 02/10/2024 8:45 AM CDT [facility] - 02/10/2024 9:07 AM CDT 1. Sulfasalazine and its metabolite Sulfapyridine at therapeutic concentrations may lead to falsely low results. 2. Temozolomide and its metabolite MTIC may lead to falsely elevated results, and its metabolite AIC may lead to falsely low results. Shira Morley MD CHEMISTRY Performing Organization Address [facility]/State/ZIP Co de Phone Number [facility] [address] [place] [address] * (ABNORMAL) HEPATIC FUNCTION PANEL (02/10/2024 8:41 AM CDT) [facility] [address] ALBUMIN 3.6(L) 4.0 - 4.9 g/dL 02/10/2024 9:16 AM [facility] PROTEIN,TOTAL 7.5 6.0 - 8.0 g/dL 02/10/2024 9:16 AM [facility] BILIRUBIN,TOTAL 0.3 0.0 - 1.2 mg/dL 02/10/2024 9:16 AM [facility] BILIRUBIN,DIRECT 0.1 0.0 - 0.2 mg/dL 02/10/2024 9:16 AM [facility] BILIRUBIN,INDIRE CT 02/10/2024 9:16 AM [facility] Comment:Unable to calculate, Direct Bili <0.2 ALK PHOSPHATASE 95 40 - 129 IU/L 02/10/2024 9:16 AM [facility] ALT (SGPT) 13 10 - 50 IU/L 02/10/2024 9:16 AM CDT [facility] AST (SGOT) 19 10 - 50 IU/L 02/10/2024 9:16 AM CDT [facility] Blood BLOOD SPECIMEN / Unknown Butterfly / Unknown 02/10/2024 8:41 AM CDT 02/10/2024 8:45 AM CDT Shira Morley MD CHEMISTRY [facility] [address] [place] [address] * SCAN-CT INTERPRETATION (02/04/2024 12:00 AM CDT) [...] 12 months since positive culture): resides in acute/fpc care, receiving hemodialysis, has chronic open wounds/skin damage, has long-term percutaneous indwelling medical devices Exclusions for nares collection (if <12 months since positive culture) include all of the previous exclusions plus patients on antibiotics 7 days prior to collection 03/08/2023 05/31/2023 ESBL 04/26/2023 04/26/2023 Advance Directives Documents on File Type Date Recorded 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
--- OUTSIDE RECORDS SUMMARY | 2024-04-14 14:57 | XMS_ITS | Clinical Summary ---
Author Organization [facility] Address [address] [place] [address] Care Team Providers Care Elementary Tutor Name Role Phone None Reported, Pcp Primary Care Provider Unavail able Source Comments Patient records contain information from all sites at [facility]. For routine questions regarding patient records, call [phone] during business hours, M-F 8:00 AM - 5:00 PM Central Time. Record requests for emergency care only can be directed to [phone] at any time.[facility] Allergies No known active allergies Medications blood [...] guaze. Assessment & Plan (06/15/2023 4:18 PM RESISTANCE BRAZER): The wound bed is clean. A thin layer of silver stat will be applied with a gauze. Change daily. 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 Left Heel: Area continues to improve. Wound measures [id number]. Edges well defined, attached and 100% re-epithelialized tissues. Granulation tissue is observed along the lining of the edges under the bed of slough/eschar. Eschar is soft but not mushy. Wound bed is still approx 95% or more of slough/eschar. Scant drainage with dressing change. Resident tolerated cares without any concerns. New wound orders as follows: Assessment & Plan (06/15/2023 4:10 PM RESISTANCE BRAZER): 1: Gently cleanse area with NS. Pat dry. 2. Skin prep to gonsalo-wound. 3. Santyl to wound bed only. 4. Place gauze over wound. 5. cover with island dressing. 6. Change dressing daily. He may be discharged to home with home nursing for wound care . Assessment & Plan (06/01/2023 2:33 PM RESISTANCE BRAZER): Continue wound care and have IMMIGRATION COORDINATOR evaluate in one week. Dementia 05/20/2023 Overview (05/24/2023): No documented dementia or behaviors Assessment & Plan (05/24/2023 5:57 PM RESISTANCE BRAZER): He has low hearing which could contribute to him not understanding Assessment & Plan (05/20/2023 4:20 PM RESISTANCE BRAZER): Although initial BIMS testing scored 14, he has had episodes of what seems to be sundowning with strong suspicion of underlying dementia. Will have OT further evaluate. Hyperglycemia 04/22/2023 Overview (04/22/2023): Prior to recent hospitalization, insulin glargine dose was 25 units daily and short-acting insulin 10 units with meals. Assessment & Plan (05/24/2023 6:00 PM RESISTANCE BRAZER): A1C 7.2 He will follow up with his PCP in [place] Assessment & Plan (04/22/2023 8:28 PM RESISTANCE BRAZER): His appetite has been poor and he has been getting much less insulin than he is used to. His sugars however have been high. Will gradually increase mealtime insulin to 7 units. Previously on 10 units with meals. Fingerprint Clerk (Current) Anticoagulant Treatment 08/2022 Overview (04/16/2023): On [...] side. 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 He will need a standard wheelchair Mr. Woods was admitted to [facility] April 10 following BK right lower extremity. [...] site Assessment & Plan (04/16/2023 7:55 PM RESISTANCE BRAZER): Pain is well controlled. Stump care consists of washing with normal saline and dry. Cover with dry gauze or ABD b.i.d. he is wearing the knee brace to maintain extension in his working with therapies. He has follow-up with vascular surgery 05/11/2023. Assessment & Plan (04/12/2023 4:53 PM RESISTANCE BRAZER): Patient and mentioned he is doing well [...] 75mcg. Assessment & Plan (06/05/2023 9:25 PM RESISTANCE BRAZER): TSH value improved compared to prior value of 16.0 a month ago. Resident /nursing denied symptoms of hypothyroidism. Last T4 was 0.92 in April 2023. college president confirmed levothyroxine is given every morning (6am) without other medications. Therefore, we will increase levothyroxine 50mcg to 75mcg and rechecked TSH in 6 weeks. Nursing instructed to continue monitoring for symptoms of hypothyroidism and contact [facility] provider if any concerns. Assessment & Plan (05/24/2023 5:24 PM RESISTANCE BRAZER): Increase levothyroxine to 50 mcg daily. skilled nursing may give two 25 mcg tablets to equal 50 mcg. He will be discharging in a week Assessment & Plan (04/23/2023 12:56 PM RESISTANCE BRAZER): TSH will be done. He is currently on levothyroxine 25 mcg daily. Dose will need to be adjusted if TSH is elevated. Assessment & Plan (04/16/2023 7:56 PM RESISTANCE BRAZER): Recheck TSH mid April. Assessment & Plan (04/12/2023 4:45 PM RESISTANCE BRAZER): Continue levothyroxine. TSH reordered. 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 Assessment & Plan (04/12/2023 4:08 PM RESISTANCE BRAZER): Plans to discharge back home. Patient remains [...] status Assessment & Plan (05/24/2023 5:15 PM RESISTANCE BRAZER): He will be full code Assessment & Plan (01/17/2023 2:30 PM CDT): Continue full code status Hyperlipidemia 01/16/2023 Overview (05/24/2023): On atorvastatin Assessment & Plan (05/24/2023 6:01 PM RESISTANCE BRAZER): Stay on statin Assessment & Plan (01/17/2023 2:35 PM CDT): Continue atorvastatin Assessment & Plan (01/17/2023 2:01 PM CDT): Continue atorvastatin Weakness General 01/16/2023 Overview (01/16/2023): This is multifactorial and related to recent hospitalizations and multiple comorbidities. Assessment & Plan (06/05/2023 9:26 PM RESISTANCE BRAZER): Denied weakness. We will continue therapy. Assessment & Plan (05/24/2023 6:05 PM RESISTANCE BRAZER): He is getting stronger with therapy. He will continue therapy when he gets his prosthesis. He will have a wheelchair upon discharge. Assessment & Plan (04/12/2023 4:09 PM RESISTANCE BRAZER): Verbalized improvement with weakness. We will continue [...] 04/11/2023 Assessment & Plan (04/12/2023 3:58 PM RESISTANCE BRAZER): Stable. Denied dizziness, lightheadedness, shortness of breaths and palpitation. Assessment & Plan (01/17/2023 2:30 PM CDT): Stable. Assessment & Plan (01/17/2023 1:58 PM CDT): Stable. Assessment & Plan (01/16/2023 7:16 PM CDT): Most recent hemoglobin 9.3. Atherosclerotic Heart Diseas e Of [place] Coronary Artery Without Angina Pectoris 01/15/2023 Overview [...] RAP). Assessment & Plan (05/24/2023 5:52 PM RESISTANCE BRAZER): Stable on current meds Assessment & Plan (04/23/2023 1:02 PM RESISTANCE BRAZER): BNAP 31,578 on 04/16/23. Dr. Gerardo increased furosemide to 40 mg bid and added spironolactone 25 mg daily. Weight today in [place] was 174 lb. No edema noted in left leg. No dyspnea. On O2 per N/C continuous. No change in medications until renal function results are available. Assessment & Plan (04/16/2023 7:41 PM RESISTANCE BRAZER): He had multiple medication changes during hospitalization including discontinuation of spironolactone and Entresto. Farxiga is being held. Metoprolol and furosemide doses were decreased. Assessment & Plan (04/12/2023 4:01 PM RESISTANCE BRAZER): No admission weight yet. Nursing to check [...] 12/22/2022 Assessment & Plan (04/22/2023 8:26 PM RESISTANCE BRAZER): Pro BN AP earlier today greater than [...] Apixaban Assessment & Plan (05/24/2023 5:53 PM RESISTANCE BRAZER): FCI anticoagulation on apixaban Assessment & Plan (04/23/2023 1:03 PM RESISTANCE BRAZER): Ventricular rate controlled today Assessment & Plan (04/12/2023 3:59 PM RESISTANCE BRAZER): HR well controlled ranging from 82-85. Continue care plan. Assessment & Plan (01/17/2023 2:31 PM CDT): HR well controlled ranging from 64-99. Continue care plan. Assessment & Plan (01/16/2023 8:24 AM CDT): HR well controlled. Continue care plan. Custodial Use Of Insulin Active 12/09/2022 Overview (01/16/2023): On insulin glargine and aspart started during hospitalization December 2022. Assessment & Plan (05/24/2023 5:20 PM RESISTANCE BRAZER): Nurse reports he is nonadherent to his [...] daily Assessment & Plan (06/07/2023 2:51 PM RESISTANCE BRAZER): Blood sugars have been elevated due to [...] hypoglycemia. Assessment & Plan (05/29/2023 7:56 PM RESISTANCE BRAZER): Patient's blood sugar continued to be on [...] possible. Assessment & Plan (05/24/2023 5:59 PM RESISTANCE BRAZER): Insulin dependent not always compliant with diet. Glargine will be increased to 17 units. Assessment & Plan (05/22/2023 6:43 PM RESISTANCE BRAZER): Blood sugar continued to be elevated mostly [...] 3 times daily with meals. Follow-up with IMMIGRATION COORDINATOR next week. Dietitian/dietary to visit with patient and to discuss food options. Assessment & Plan (05/20/2023 4:22 PM RESISTANCE BRAZER): Recent blood sugars in the SNF setting have been elevated. Short and long-acting insulin doses have changed significantly since admission. Will have him follow- up with IMMIGRATION COORDINATOR for further review of blood sugars. Assessment & Plan (04/23/2023 1:04 PM RESISTANCE BRAZER): Blood sugars not controlled. Increase Lantus to 14 units from 12. Assessment & Plan (04/16/2023 7:42 PM RESISTANCE BRAZER): Was previously on glipizide and higher doses of mealtime aspart. Blood sugars are being checked 4 times daily. May need insulin readjusted. Assessment & Plan (04/12/2023 4:04 PM RESISTANCE BRAZER): Blood sugars have been I< 200s. Currently [...] to 25 units and follow-up. Atherosclerosis Of [place] Ar teries Of [...] 120-130 Assessment & Plan (04/12/2023 4:07 PM RESISTANCE BRAZER): Images from the original note were not [...] redness. Assessment & Plan (05/24/2023 5:14 PM RESISTANCE BRAZER): Stable Assessment & Plan (04/29/2023 7:54 PM RESISTANCE BRAZER): Today, nursing had reported left lower calf and ankle redness with open wound. On assessing the left calf/ankle, there was an open skin area (abrasion) that has no redness, swelling nor drainage. The skin was not warmth to touch and patient denied pain at 0/10 (nurse radiology services manager was in attendance during visit). Nursing stated does look better than what it was this morning. They have been cleaning the wound area in apply Mepilex. Since there was no symptoms or evidence of infection on the left lower calf and ankle redness with open wound, nursing was instructed to continue skin check daily and current dressing. Contact [facility] providers if worsening skin condition. Of note, [...] at [facility]. Anemia 01/16/2023 04/12/2023 Overview (04/12/2023): Lab Results Component Value Date WBC 9.0 04/11/2023 HGB 7.8 (L) 04/11/2023 HCT 24.9 (L) 04/11/2023 MCV 95 04/11/2023 PLT 381 04/11/2023 Assessment & Plan (04/12/2023 3:57 PM RESISTANCE BRAZER): CBC reordered. Denied dizziness, lightheadedness, shortness of [...] 04/11/2023 Assessment & Plan (04/12/2023 4:05 PM RESISTANCE BRAZER): BMP ordered. 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 Med [...] Comments Blood Pressure 107/66 06/18/2023 1:10 PM RESISTANCE BRAZER Pulse 78 06/18/2023 1:10 PM RESISTANCE BRAZER Temperature 36.6 C (97.8 F) 06/18/2023 1:10 PM RESISTANCE BRAZER Respiratory Rate 16 06/18/2023 1:10 PM RESISTANCE BRAZER Oxygen Saturation 95% 06/18/2023 1:10 PM RESISTANCE BRAZER Inhaled Oxygen Concentration - - Weight 75.8 kg (167 lb) 06/18/2023 1:10 PM RESISTANCE BRAZER Height 175.3 cm (5' 9) 04/12/2023 3:21 PM RESISTANCE BRAZER Body Mass Index 24.66 04/12/2023 3:21 PM RESISTANCE BRAZER Plan of Treatment Health Maintenance Due Date [...] patient's age to complete this topic Insurance [facility] [place] [address] MEDICARE [facility] [[email or web address]] Advance Directives For more information, please contact: [phone] * DNR/DNI (Latest Code Status on File) Date Activated Date Inactivated Comments 05/24/2023 6:14 PM * DNR/DNI Date Activated Date Inactivated Comments 04/12/2023 4:11 PM 04/16/2023 7:15 AM Care Teams Elementary Tutor Relationship Specialty Start Date End Date None Reported, Pcp PCP - General 03/21/24
--- OUTSIDE RECORDS SUMMARY | 2024-04-14 14:57 | XMS_ITS | Encounter Summary ---
Author Organization [facility] Address [address] [place] [address] Care Team Providers Care Drywall Finishing Foreman Name Role Phone None Reported, Pcp Primary Care Provider Unavail able Reason for Visit * Reason Comments Med Refill Encounter Details Date Type Department Care Team (Late st Contact Info) Description 03/12/2024 Refill Senior Services in [facility] [address], [place] [phone] Hannah Castillo, RAYNA, C.N.P. [address] [facility] [place] [phone] Med Refill Social History Tobacco Use Types [...] on filedocumented in this encounter Care Teams Drywall Finishing Foreman Relationship Specialty Start Date End Date None Reported, Pcp PCP - General 03/21/24 documented as of this encounter
--- OUTSIDE RECORDS SUMMARY | 2024-04-14 14:57 | XMS_ITS ---
Author Organization [facility] Address [address] [place] [address] Care Team Providers Care Grain Farmer Name Role Phone Unavailable Unavailable Unavailable Surgery Details Not on file Complications Check Surgery Details section. Procedure Estimated Blood Loss Check Surgery Details section. Procedure Findings Check Surgery Details section. Procedure Specimens Taken Check Surgery Details section.
--- OUTSIDE RECORDS SUMMARY | 2024-04-14 14:57 | XMS_ITS | Data Portability ---
Author Organization [facility] Dominick gy, [facility] Address [address] [place] [address] Care Team Providers Care Oceanographer Physical Name Role Phone VOTELPARVEZ Primary Care Provider [...] Address Organization Details Last Updated DateTime 11/28/2023 34724.78 g 23 kg/m2 177.8 cm [facility] 11/28/2023 14:16:54 Social History Question Answer Notes LastModified by Organizat ion Details LastModified Time Tobacco Smoking Status Former Smoker [facility] Ryan winn [facility] 11/28/2023 14:22:10 What Is Your Level Of [...] adjuvanted, trivalent, PF 01/10/2018 completed Bennett winn [facility] 11/28/2023 14:17:02 Influenza, adjuvanted, trivalent, PF 02/12/2020 completed Bennett winn [facility] 11/28/2023 14:17:02 Influenza, high-dose, quadrivalent, PF 03/09/2021 completed Bennett winn [facility] 11/28/2023 14:17:02 Influenza, high-dose, quadrivalent, PF 04/05/2022 completed [facility] null, [facility] 11/28/2023 14:17:02 Influenza, adjuvanted, quadrivalent, PF 03/05/2023 completed [facility] Mg[facility]er [facility] null, [facility] 11/28/2023 14:17:02 COVID-19, mRNA, LNP-S, PF, 100 mcg/0.5mL dose or 50 mcg/0.25mL dose 03/09/2021 completed [facility] null, [facility] 11/28/2023 14:17:02 COVID-19, mRNA, LNP-S, PF, 30 mcg/0.3 mL dose 07/03/2020 [facility], [facility] 11/28/2023 14:17:02 COVID-19, mRNA, LNP-S, PF, 30 mcg/0.3 mL dose 07/24/2020 [facility], [facility] 11/28/2023 14:17:02 COVID-19, mRNA, LNP-S, bivalent, PF, 50 mcg/0.5 mL or 25mcg/0.25 mL dose 03/29/2022 completed [facility] Mg-Valer [facility] null, [facility] 11/28/2023 14:17:02 RSV, bivalent, protein subunit RSVpreF, diluent reconstituted, 0.5 mL, PF 03/05/2023 [facility] 11/28/2023 14:17:02 COVID-19, mRNA, LNP-S, PF, estrella-sucrose, 30 mcg/0.3 mL 03/05/2023 completed [facility], [facility] 11/28/2023 14:17:02 pneumococcal polysaccharide PPV23 02/09/2011 [facility], [facility] 11/28/2023 14:17:02 pneumococcal polysaccharide PPV23 03/06/2006 completed [facility], [facility] 11/28/2023 14:17:02 influenza, unspecified formulation 03/15/2017 completed [facility], [facility] 11/28/2023 14:17:02 Pneumococcal conjugate PCV 13 01/21/2015 completed [facility] null, [facility] 11/28/2023 14:17:02 Influenza, high-dose, trivalent, PF 01/21/2015 completed [facility], [facility] 11/28/2023 14:17:02 Influenza, high-dose, trivalent, PF 03/07/2019 [facility], [facility] 11/28/2023 14:17:02 Influenza, split virus, trivalent, preservative 01/30/2013 completed [facility]er [facility] null, [facility] 11/28/2023 14:17:02 Influenza, split virus, trivalent, preservative 02/26/2003 completed [facility]Valer [facility] null, [facility] 11/28/2023 14:17:02 Influenza, split virus, trivalent, preservative 03/01/2004 completed [facility], [facility] 11/28/2023 14:17:02 Influenza, split virus, trivalent, preservative 03/05/2007 [facility], [facility] 11/28/2023 14:17:02 Influenza, split virus, trivalent, preservative 03/06/2006 completed [facility], [facility] 11/28/2023 14:17:02 Influenza, split virus, trivalent, preservative 03/09/2005 [facility], [facility] 11/28/2023 14:17:03 Influenza, split virus, trivalent, preservative 03/09/2008 [facility], [facility] 11/28/2023 14:17:03 Influenza, split virus, trivalent, preservative 03/13/2012 completed [facility]er [facility] null, [facility] 11/28/2023 14:17:03 Influenza, split virus, trivalent, preservative 04/28/2010 completed [facility]er [facility] null, [facility] 11/28/2023 14:17:03 Influenza, split virus, trivalent, PF 02/09/2011 completed [facility] Mg[facility]Valer [facility] null, [facility] 11/28/2023 14:17:03 Influenza, split virus, trivalent, PF 04/05/2009 completed [facility] null, [facility] 11/28/2023 14:17:03 Td (adult), 5 Lf tetanus toxoid, preservative free, adsorbed 03/06/2006 [facility], [facility] 11/28/2023 14:17:03 Past Encounters Encounter ID Performer Location Encounter Start Date Encounter Closed Date Diagnosis/Indication Diagnosis SNOMED-CT Code Diagnosis ICD10 Code [id number] Roberto Carballo MD [facility] [address] [place] [address] 11/28/2023 13:46:09 12/04/2023 16:43:22 Phimosis 173635411 N47.1 Health Concerns Section Related Observation LastModified by Organization Detai ls LastModified Time None Recorded Concern Status LastModified by Organization Details LastModified Time None Recorded Advance Directives Directive None Recorded Payers Encounter Date Sequence Insurance Name Policy Number Policy Cherry Covered Member ID Cherry Member ID Guarantor Name 11/28/2023 1 [place] [id number] Rosalina Bowers [id number] Rosalina Bowers Notes Date Note Type Note [...] 1.38 (03/05/07)- 1.40 (04/28/10) Roberto Carballo MD [address] [place] [address],[facility] [address], [place], [address], [facility] 11/30/2023 11:21:51
== END 2024-04-14 14:47 | disposition home or self-care (01) ==
PROVIDERS: PCP Family Medicine; Visit Provider Nurse Practitioner Family
DX: E11.621 Type 2 diabetes mellitus with foot ulcer (principal); L89.620 Pressure ulcer of left heel, unstageable; I89.0 Lymphedema, not elsewhere classified; Z79.4 Long term (current) use of insulin; Z79.84 Long term (current) use of oral hypoglycemic drugs
CPT/HCPCS: 11042

== ENCOUNTER 2024-04-21 14:17 | Outpatient (CLI) | payer OTHER, MEDICARE, BC, SELFPAY ==
--- OUTSIDE RECORDS SUMMARY | 2024-04-21 14:19 | XMS_ITS | Encounter Summary ---
Author Name [facility] Organization [facility] Address [address] [place] [address] Care Team Providers Care Supervisor Forming And Tempering Name Role Phone JIMENEZ CHESTER Primary Care [...] Name Patient's Relationship to Policy Cherry [facility] (WNR) MEDICARE ADVANTAGE [facility] (WNR) May 14, 2020 [id number] [phone] PITER CASAS ERD PATIENT Selected Encounter This section includes the information on record at [place] for the Encounter. Date/Time Encounter Type Encounter Description Reason Pro vider Source Jan 04, 2024 03:16 PM Outpatient Encounter COMMUNITY CARE CONSULT IHE Encounter Template Text not used by [place] [...] 10:00 AM AMBULATORY - REHAB MEDICIN E [facility] Feb 02, 2024 10:15 AM AMBULATORY - SURGERY [facility] Feb 12, 2024 02:00 PM AMBULATORY - NONE [facility] Mar 11, 2024 11:30 AM AMBULATORY - MEDICINE [facility] ([facility] Mar 18, 2024 07:01 AM AMBULATORY - NONE [facility] Mar 20, 2024 09:00 AM AMBULATORY - REHAB MEDICIN E [facility] Mar 20, 2024 02:30 PM AMBULATORY - SURGERY [facility] Apr 07, 2024 10:30 AM AMBULATORY - REHAB MEDICIN E [facility] Encounter Notes: All associated encounter notes This section contains the clinical notes associated to the Encounter. Date/Time Encounter Note(s) Provider Source Jan 04, 2024 03:16 PM PHARMACY NOTE: LOCAL TITLE: PHARMACY NON [place] CARE MEDICATIONS STANDARD TITLE: PHARMACY NOTE DATE OF NOTE: JAN 04, 2024@15:16 ENTRY DATE: JAN 04, 2024@15:17:04 AUTHOR: BONNIE GONZALEZ COSIGNER: URGENCY: STATUS: COMPLETED [facility] RECEIVED electronic prescription(s) (eRX(s)) from NON-VA Provider: Dr. Tatyana Nguyen Date eRX received: Dec Outside (NON-VA) provider not authorized to write for prescription(s) through [place] pharmacy. Prescription request REDIRECTED via FAX to one of the following for review: [X][facility] (Dual) Care [ ]Other: eRx Prescription Information: 1. [id number] insulin aspart (U-100) TATYANA NGUYEN MA 01/04/24 [...] GONZALEZ PHARMACIST Signed: 01/04/2024 15:18 BONNIE GONZALEZ [facility]
--- OUTSIDE RECORDS SUMMARY | 2024-04-21 14:19 | XMS_ITS | Encounter Summary ---
Author Name [facility] [place] Organization [place] Address [address] [place] [address] Care Team Providers Care Oracle Hrms Developer Name Role Phone JIEMNEZ CHESTER Primary Care Provider Unavailabl e Insurance [...] Cherry's Name Patient's Relationship to Policy Cherry [facility] (WNR) MEDICARE ADVANTAGE [facility] (WNR) May 14, 2020 [id number] [phone] PITER CASAS ERD PATIENT Selected Encounter This section includes the information on record at [place] for the Encounter. Date/Time Encounter Type Encounter [...] care activities for the patient from all [place] [facility]. This section includes future appointments and future orders which are active, pending or scheduled. Future Appointments This section includes appointments that were scheduled to occur 6 months from the date of the Encounter, up to a maximum of 20 appointments. The data comes from all [facility]. Appointment Date/Time Appointment Type Appointme nt Facility Name Jan 30, 2024 10:00 AM AMBULATORY - REHAB MEDICIN [facility] Feb 02, 2024 10:15 AM AMBULATORY - SURGERY [facility] Feb 12, 2024 02:00 PM AMBULATORY - NONE [facility] Mar 11, 2024 11:30 AM AMBULATORY - MEDICINE [facility] ([facility] Mar 18, 2024 07:01 AM AMBULATORY - NONE [facility] Mar 20, 2024 09:00 AM [facility] Mar 20, 2024 02:30 PM AMBULATORY - SURGERY [facility] Apr 07, 2024 10:30 AM AMBULATORY - REHAB MEDICIN [facility] Social History: Smoking Status (Most current) and Tobacco Use (All prior to encounter date) This section includes the most current, and the historical, smoking and tobacco- related health factors from the [place] facility where the Encounter took place. Current Smoking Status This section includes the most current smoking, or tobacco-related health factor, from the [place] facility where the Encounter took place. Date/Time Current Smoking Status Comment Federico itcris Nov 08, 2023 10:00 AM VA-TOBACCO QUIT 15 YRS OR MORE [place] ([facility]) Tobacco Use History This section includes a history of the smoking, or tobacco-related health factors, that were collected on or before the date of the Encounter. The data comes from the [place] facility where the Encounter took place. Date/Time Smoking Status/Tobacco Use Comment F acility Nov 08, 2023 10:00 AM VA-TOBACCO QUIT 15 YRS OR MORE [facility] ([facility]) Nov 23, 2022 11:00 AM VA-TOBACCO FORMER USER [place] ([facility]) Nov 23, 2022 11:00 AM VA-TOBACCO QUIT 15 YRS OR MORE [place] ([facility]) Nov 29, 2021 10:00 AM VA-TOBACCO FORMER USER [place] ([facility]) Nov 29, 2021 10:00 AM VA-TOBACCO QUIT 15 YRS OR MORE [place] ([facility]) Oct 21, 2020 10:30 AM VA-TOBACCO FORMER USER [place] ([facility]) Oct 21, 2020 10:30 AM VA-TOBACCO QUIT 15 YRS OR MORE [place] ([facility]) Encounter Notes: All associated encounter notes [...] the followin. CAD - Coronary Artery Disease ([facility] [id number]) 2. Diabetes Mellitus Type 2 ([facility] [id number]) 3. HTN - Hypertension ([facility] [id number]) 4. Peripheral neuropathy due to type 2 diabetes mellitus 5. Long-term current use of insulin 6. Hyperlipidemia ([facility] [id number]) 7. CHF - Congestive Heart Failure ([facility] [id number]) 8. Exposure to potentially hazardous substance ([facility] [id number]) - Entered through [facility] TAM Documentation Initiative 9. Hypothyroidism ([facility] [id number]) 10. History of amputation of right leg through tibia and fibula Weight/Height for DME purposes: 166.1 lb [75.34 kg] (11/08/2023 09:55) 69 in [175.3 cm] (11/08/2023 09:55) Chief Concern: Pt is a 83 year old who [...] CAD, CHF, quadruple bypass in 2001, multiple CA's, A- fib Home Environment: Type of home: [...] provided from Medicare and 4WW provided from [place] Pain: General aches and pains throughout the [...] ASSESSMENT: Pt is a 83 year old [place] who presents to PT for functional mobility [...] PRESENTATION: evolving PLAN: Functional mobility assessment complete; documentation writer will place Rehab Outpatient Power Mobility Consult for further review. Patient Education on Treatment Plan: PT role, POC, rehab expectations. Patient indicated readiness to learn, verbalizes understanding, agreement and satisfaction with the treatment plan. Denies further questions. /riccardo/ CINTHIA JAMESON Physical Therapist Signed: 12/18/2023 12:53 CINTHIA JAMESON (CB)
--- OUTSIDE RECORDS SUMMARY | 2024-04-21 14:19 | XMS_ITS | Encounter Summary ---
Author Name [facility] [place] Address [address] [place] [address] Care Team Providers Care Complaint Inspector Name Role Phone JIMENEZ CHESTER Primary Care [...] Name Patient's Relationship to Policy Cherry [facility] (WNR) MEDICARE ADVANTAGE [facility] (WNR) May 14, 2020 [id number] [phone] PITER CASAS ERD PATIENT Selected Encounter This section includes the information on record at [place] for the Encounter. Date/Time Encounter Type Encounter Description Reason Provider Source Aug 10, 2023 10:45 AM HEARING AID REPAIR/MODIFYIN G AUDIOLOGY ICD-10-CM H90.3 Sensorineural hearing loss, bilateral LUDWIN CORCORAN IHEmerald Encounter Template Text not used by [place] Assessments - Encounter Diagnoses This section includes the primary and secondary diagnoses documented for the Encounter. Date/Time Primary/Secondary Diagnosis Diagnosis Name Provider Source Aug 10, 2023 11:22 AM PRIMARY Sensorineural hearing loss, bilateral LUDWIN CORCORAN [facility] Aug 10, 2023 11:22 AM SECONDARY Encounter for fitting and adjustment of hearing aid LUDWIN CORCORAN [facility] Plan of Treatment: Future Appointments (+ 6 months) and Future Tests (+/- 45 days) The Plan of Treatment section includes future care activities for the patient from all [place] [facility]. This section includes future appointments and future orders which are active, pending or scheduled. Future Appointments This section includes appointments that were scheduled to occur 6 months from the date of the Encounter, up to a maximum of 20 appointments. The data comes from all [facility] facilities. Appointment Date/Time Appointment Type Appointme nt Facility Name September 18, 2023 01:00 PM AMBULATORY - SURGERY [facility] Nov 08, 2023 10:00 AM AMBULATORY - MEDICINE [facility] ([facility]) Dec 18, 2023 10:45 AM AMBULATORY - [facility]AB MEDICIN [facility] [place] ([facility]) Jan 30, 2024 10:00 AM AMBULATORY - REHAB MEDICIN [facility] Feb 02, 2024 10:15 AM AMBULATORY - SURGERY [facility] Encounter Notes: All associated encounter notes [...] CLEARED VENTS Problem will require repair by manager industrial and left aid was mailed to manager industrial today. Also sent micro cary in for repair Device can be programmed/ mailed to [place] once repaired. Ordered replacement remote control 2-mail to was counseled using a curriculum on the cleaning,care and use of hearing aids. Plan: Vet will contact call center as needed for follow up Patient is in agreement with this plan. 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:MAIL AID AND DEVICES TO RECEIVED /riccardo/ MICK CORCORAN AUDIO TECH Signed: 08/10/2023 11:22 08/16/2023 ADDENDUM STATUS: COMPLETED RECEIVED, CERTIFIED AND ISSUED RESOUND REMOTE CONTROL 2 DEVICE MAILED TO AT THE ADDRESS ON FILE /riccardo/ MICK CORCORAN AUDIO TECH Signed: 08/16/2023 16:07 08/16/2023 ADDENDUM STATUS: COMPLETED MAILING REPAIRED HEARING AIDS TO THE ADDRESS ON FILE /riccardo/ MICK Rand [facility] HEALTH FITTER HAND Signed: 08/16/2023 17:33 08/17/2023 ADDENDUM STATUS: COMPLETED RECEIVED AND CERTIFIED REPAIRED RESOUND MICRO CARY DEVICE MAILED TO AT THE ADDRESS ON FILE /riccardo/ MICK CORCORAN AUDIO TECH Signed: 08/17/2023 15:12 MICK CORCORAN [facility]
--- OUTSIDE RECORDS SUMMARY | 2024-04-21 14:19 | XMS_ITS | Continuity of Care Document ---
Author Name [facility] Organization [facility] Care Team Providers Care Validation Software Facilitator Name Role Phone [facility] Unavailable Unavailable Problems Combined list of problems from Department of Defense and Veterans Affairs facilities. It does not include entries that were removed or entered in error. Problem Status Onset Date Problem Type Date of Resolution Comments Source Exposure to potentially hazardous substance ([facility] [id number]) Active 07/20/19 24 Condition Jul 20, 2023 Entered By: MECHELLE DEMPSEY Comment[facility] Documentation Initiative [facility] CAD - Coronary Artery Disease ([facility] [id number]) Active Condition [place] ([facility]) CHF - Congestive Heart Failure ([facility] [id number]) Active Condition [facility]) Diabetes Mellitus Type 2 ([facility] [id number]) Active Condition [place] ([facility]) History of amputation of right leg through tibia and fibula Active Condition [place] ([facility]) HTN - Hypertension ([facility] [id number]) Active Condition [place] ([facility]) Hyperlipidemia ([facility] [id number]) Active Condition [facility]) Hypothyroidism ([facility] [id number]) Active Condition [place] ([facility]) Long-term current use of insulin Active Condition [place] ([facility]) Peripheral neuropathy due to type 2 diabetes mellitus Active Condition [place] ([facility]) Diagnosis: ICD-10-CM R53.1 Weakness Active Diagnosis [facility] Diagnosis: ICD-10-CM Z89.511 Acquired absence of right leg below knee Active Diagnosis [facility] Diagnosis: ICD-10-CM Z65.8 Oth problems related to psychosocial circumstances Active Diagnosis [facility] Diagnosis: ICD-10-CM H90.3 Sensorineural hearing loss, bilateral Active Diagnosis [facility] Diagnosis: ICD-10-CM L89.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, stage 3 Active Diagnosis [facility]) Diagnosis: ICD-10-CM Z46.1 Encounter for fitting and adjustment of hearing aid Active Diagnosis [facility] Diagnosis: ICD-10-CM Z74.09 Other reduced mobility Active Diagnosis [place] ([facility]) Diagnosis: ICD-10-CM E11.9 Type 2 diabetes mellitus without complications Active Diagnosis [place] ([facility]) Diagnosis: ICD-10-CM I50.9 Heart failure, unspecified Active Diagnosis [place] ([facility]) Diagnosis: ICD-10-CM R26.89 Other abnormalities of [...] [facility] WOUND CARE ORDERS TOPICA L 02/16/2024 [id number] KATHY MURPHY 2022 40 [facility] CLOPIDOGREL BISULFATE 75MG TAB TAKE ONE [...] 90 UNITS/DA Y SUBCUT ANEOUS ACTIVE 03/12/2025 [id number] HENRIKRYAN Cason 2023 15 [place] [facility] [...] Y SUBCUT ANEOUS DISCONT INUED (EDIT) 01/10/2025 [id number] HENRIKRYAN Cason 2023 10 [place] [facility] [...] Y SUBCUT ANEOUS DISCONT INUED (EDIT) 11/08/2024 [id number] HENRIKRYAN Cason 2023 10 [place] [facility] [...] Site Reaction Lot Number CVX Code Drug Coater Operator Insulation Board Status Comments Source COVID-19 (Urban Interactions), MRNA, LNP-S, PF, NAVYA-SUCROSE, 30 MCG/0.3 ML (AGES 12+ YEARS) 2023 309 complet ed [facility] INFLUENZA, ADJUVANTED, TRIVALENT, PF 2023 168 complet ed [facility] COVID-19 (PFIZER), MRNA, LNP-S, PF, NAVYA-SUCROSE, 30 MCG/0.3 ML (AGES 12+ YEARS) 2022 309 complet ed [facility] INFLUENZA, ADJUVANTED, QUADRIVALENT, PF 2022 205 complet ed [facility] RSV, BIVALENT, PROTEIN SUBUNIT RSVPREF, DILUENT RECONSTITUTED , 0.5 ML, PF 2022 305 complet ed [facility] INFLUENZA, HIGH-DOSE, QUADRIVALENT 1 2021 197 complet ed [facility] COVID-19 (MODERNA), MRNA, LNP-S, BIVALENT, PF, 50 MCG/0.5 ML OR 25MCG/0.25 ML DOSE 1 2021 229 complet ed [facility] COVID-19 (MODERNA), MRNA, LNP-S, PF, 100 MCG/0.5ML DOSE OR 50 MCG/0.25ML DOSE 2020 207 complet ed [facility] COVID-19 (PFIZER), MRNA, LNP-S, PF, 30 MCG/0.3 ML DOSE 3 2020 208 complet ed [facility] INFLUENZA, HIGH-DOSE, QUADRIVALENT, PF 2020 197 complet ed [facility] INFLUENZA, UNSPECIFIED FORMULATION 2020 88 complet ed [facility] TDAP 2020 115 complet ed [employer], [id number] , exp-2022 and given VIS dated 12/17/2020 [place] ([facility]) ZOSTER RECOMBINANT 2 2020 187 complet ed [place] ([facility]) ZOSTER RECOMBINANT 1 2020 187 complet ed [place] ([facility]) COVID-19 (PFIZER), MRNA, LNP-S, PF, 30 MCG/0.3 ML DOSE 2 2020 208 complet ed [facility] COVID-19 (PFIZER), MRNA, LNP-S, PF, 30 MCG/0.3 ML DOSE 1 2020 208 complet ed [facility] INFLUENZA, ADJUVANTED, TRIVALENT, PF 2019 168 complet ed [facility] INFLUENZA, UNSPECIFIED FORMULATION 2019 88 complet ed [facility] INFLUENZA, HIGH-DOSE, TRIVALENT, PF 2018 135 complet ed [facility] INFLUENZA, ADJUVANTED, TRIVALENT, PF 2017 168 complet ed [facility] INFLUENZA, UNSPECIFIED FORMULATION 2016 88 complet ed [facility] INFLUENZA, HIGH-DOSE, TRIVALENT, PF 2014 135 complet ed [facility] PNEUMOCOCCAL CONJUGATE PCV 13 2014 133 complet ed [facility] INFLUENZA, SPLIT VIRUS, TRIVALENT, PRESERVATIVE 2012 141 complet ed [facility] INFLUENZA, SPLIT VIRUS, TRIVALENT, PRESERVATIVE 2011 141 complet ed [facility] INFLUENZA, SPLIT VIRUS, TRIVALENT, PF 2010 140 complet ed [facility] PNEUMOCOCCAL POLYSACCHARID E PPV23 2010 33 complet ed [facility] INFLUENZA, SPLIT VIRUS, TRIVALENT, PRESERVATIVE 2009 141 complet ed [facility] INFLUENZA, SPLIT VIRUS, TRIVALENT, PF 2008 140 complet ed [facility] INFLUENZA, SPLIT VIRUS, TRIVALENT, PRESERVATIVE 2007 141 complet ed [facility] INFLUENZA, SPLIT VIRUS, TRIVALENT, PRESERVATIVE 2006 141 complet ed [facility] INFLUENZA, SPLIT VIRUS, TRIVALENT, PRESERVATIVE 2005 141 complet ed [facility] PNEUMOCOCCAL POLYSACCHARID E PPV23 2005 33 complet ed [facility] TD (ADULT), 5 LF TETANUS TOXOID, PRESERVATIVE FREE, ADSORBED 2005 113 complet ed [facility] INFLUENZA, SPLIT VIRUS, TRIVALENT, PRESERVATIVE 2004 141 complet ed [facility] INFLUENZA, SPLIT VIRUS, TRIVALENT, PRESERVATIVE 2003 141 complet ed [facility] INFLUENZA, SPLIT VIRUS, TRIVALENT, PRESERVATIVE 2002 141 complet [facility] Results Combined list of recent chemistry, [...] Jan 23, 2023 02:00 PM Reporting Lab: [place] [phone] Performing Lab: [address] ([place]) BASIC METABOLIC PANEL+MG CREATININE [MASS/VOLUM E] IN SERUM OR PLASMA 1.2 mg/dL 0.7 - 1.2 01/23 Specimen Type: PLASMA No comment entered. Ordering Provider: AILIN CHESTER Report Released Date/Time: Jan 23, 2023 02:00 PM Reporting Lab: [place] [id number] Performing Lab: [address] ([facility]) BASIC METABOLIC PANEL+MG UREA NITROGEN [MASS/VOLUM E] IN SERUM OR PLASMA 35 mg/dL 8 - 26 01/23 H Specimen Type: PLASMA No comment entered. Ordering Provider: AILIN CHESTER Report Released Date/Time: Jan 23, 2023 02:00 PM Reporting Lab: [facility] [address] Performing Lab: [address] ([facility]) BASIC METABOLIC PANEL+MG GLUCOSE [MASS/VOLUM E] IN SERUM OR PLASMA 239 mg/dL 70 - 100 01/23 H Specimen Type: PLASMA No comment entered. Ordering Provider: AILIN CHESTER Report Released Date/Time: Jan 23, 2023 02:00 PM Reporting Lab: [place] [phone] Performing Lab: [address] ([facility]) BASIC METABOLIC PANEL+MG SODIUM [MOLES/VOLU ME] IN SERUM OR PLASMA 140 mmol/L 136 - 145 01/23 Specimen Type: PLASMA No comment entered. Ordering Provider: AILIN CHESTER Report Released Date/Time: Jan 23, 2023 02:00 PM Reporting Lab: [facility] [address] Performing Lab: [address] [place] ([facility]) BASIC METABOLIC PANEL+MG POTASSIUM [MOLES/VOLU ME] IN SERUM OR PLASMA 5.1 mmol/L 3.5 - 5.1 01/23 Specimen Type: PLASMA No comment entered. Ordering Provider: AILIN CHESTER Report Released Date/Time: Jan 23, 2023 02:00 PM Reporting Lab: [address] Performing Lab: [place] [address] [place] ([facility]) BASIC METABOLIC PANEL+MG CHLORIDE [MOLES/VOLU ME] IN SERUM OR PLASMA 109 mmol/L 98 - 107 01/23 H Specimen Type: PLASMA No comment entered. Ordering Provider: AILIN CHESTER Report Released Date/Time: Jan 23, 2023 02:00 PM Reporting Lab: [address] Performing Lab: [address] ([facility]) BASIC METABOLIC PANEL+MG CARBON DIOXIDE, TOTAL [MOLES/VOLU ME] IN SERUM OR PLASMA 21 mmol/L 22 - 29 01/23 L Specimen Type: PLASMA No comment entered. Ordering Provider: AILIN CHESTER Report Released Date/Time: Jan 23, 2023 02:00 PM Reporting Lab: [place] [phone] Performing Lab: [place] [address] [place] ([facility]) BASIC METABOLIC PANEL+MG CALCIUM [MASS/VOLUM E] IN SERUM OR PLASMA 9.4 mg/dL 8.4 - 10.2 01/23 Specimen Type: PLASMA No comment entered. Ordering Provider: AILIN CHESTER Report Released Date/Time: Jan 23, 2023 02:00 PM Reporting Lab: [facility] [address] Performing Lab: [facility] [id number] [place] [address] ([facility]) BASIC METABOLIC PANEL+MG MAGNESIUM [MASS/VOLUM E] IN SERUM OR PLASMA 1.7 mg/dL 1.6 - 2.6 01/23 Specimen Type: PLASMA No comment entered. Ordering Provider: AILIN CHESTER Report Released Date/Time: Jan 23, 2023 02:00 PM Reporting Lab: [facility] [address] Performing Lab: [facility] [address] [place] ([facility]) BASIC METABOLIC PANEL+MG ANION GAP IN SERUM OR PLASMA 10 mmol/L 5 - 15 01/23 Specimen Type: PLASMA No comment entered. Ordering Provider: AILIN CHESTER Report Released Date/Time: Jan 23, 2023 02:00 PM Reporting Lab: [place] [phone] Performing Lab: [place] [phone] [place] [address] ([facility]) BASIC METABOLIC PANEL+MG GLOMERULAR FILTRATION RATE/1.73 SQ M.PREDICTED [VOLUME RATE/AREA] IN SERUM, PLASMA OR BLOOD BY CREATININE- BASED FORMULA (CKD-EPI 2020) 61 60 01/23 Specimen Type: PLASMA No comment entered. Ordering Provider: AILIN CHESTER Report Released Date/Time: Jan 23, 2023 02:00 PM Reporting Lab: [place] [phone] Performing Lab: [place] [phone] [place] ([facility]) MICROALBU MIN/CREAT ININE RATIO URINE CREATININE [MASS/VOLUM E] IN URINE 132.8 mg/dL 58.0 - 161.0 11/23 Specimen Type: URINE No comment entered. Ordering Provider: AILIN CHESTER Report Released Date/Time: Nov 23, 2022 11:58 AM Reporting Lab: [place] [phone] Performing Lab: [place] [phone] [place] [address] ([facility]) MICROALBU MIN/CREAT ININE RATIO URINE MICROALBUMI N/CREATININ E [MASS RATIO] IN URINE 28.0 mg/g{c reat} 11/23 Specimen Type: URINE No comment entered. Ordering Provider: AILIN CHESTER Report Released Date/Time: Nov 23, 2022 11:58 AM Reporting Lab: [place] [phone] Performing Lab: [facility] [phone] [place] [address] ([facility]) MICROALBU MIN/CREAT ININE RATIO URINE MICROALBUMI N [MASS/VOLUM E] IN URINE 37.2 mg/L 11/23 H Specimen Type: URINE No comment entered. Ordering Provider: AILIN CHESTER Report Released Date/Time: Nov 23, 2022 11:58 AM Reporting Lab: [facility] [address] Performing Lab: [facility] [address] [place] ([facility]) LIPID PANEL,NON -FASTING CHOLESTEROL [MASS/VOLUM E] IN SERUM OR PLASMA 130 mg/dL 11/23 Specimen Type: PLASMA No comment entered. Ordering Provider: AILIN CHESTER Report Released Date/Time: Nov 23, 2022 11:58 AM Reporting Lab: [facility] [phone] Performing Lab: [facility] [address] [place] ([facility]) LIPID PANEL,NON -FASTING CHOLESTEROL IN HDL [MASS/VOLUM E] IN SERUM OR PLASMA 39 mg/dL 11/23 L Specimen Type: PLASMA No comment entered. Ordering Provider: AILIN CHESTER Report Released Date/Time: Nov 23, 2022 11:58 AM Reporting Lab: [facility] [address] Performing Lab: [facility] [address] [place] ([facility]) LIPID PANEL,NON -FASTING CHOLESTEROL IN LDL [MASS/VOLUM E] IN SERUM OR PLASMA BY CALCULATION 73 mg/dL 11/23 Specimen Type: PLASMA No comment entered. Ordering Provider: AILIN CHESTER Report Released Date/Time: Nov 23, 2022 11:58 AM Reporting Lab: [facility] [address] Performing Lab: [facility] [address] [place] ([facility]) LIPID PANEL,NON -FASTING CHOLESTEROL IN VLDL [MASS/VOLUM E] IN SERUM OR PLASMA BY CALCULATION 18 mg/dL 11/23 Specimen Type: PLASMA No comment entered. Ordering Provider: AILIN CHESTER Report Released Date/Time: Nov 23, 2022 11:58 AM Reporting Lab: [facility] [address] Performing Lab: [facility] [phone] [place] ([facility]) LIPID PANEL,NON -FASTING CHOLESTEROL NON HDL [MASS/VOLUM E] IN SERUM OR PLASMA 91 mg/dL 11/23 Specimen Type: PLASMA No comment entered. Ordering Provider: AILIN CHESTER Report Released Date/Time: Nov 23, 2022 11:58 AM Reporting Lab: [place] [phone] Performing Lab: [address] ([facility]) LIPID PANEL,NON -FASTING TRIGLYCERID E [MASS/VOLUM E] IN SERUM OR PLASMA 92 mg/dL 11/23 Specimen Type: PLASMA No comment entered. Ordering Provider: AILIN CHESTER Report Released Date/Time: Nov 23, 2022 11:58 AM Reporting Lab: [place] [id number] Performing Lab: [address] ([facility]) TSH W/REFLEX TO FREE T4 THYROTROPIN [UNITS/VOLU ME] IN SERUM OR PLASMA 4.59 u[IU]/ mL 0.35 - 4.94 11/23 Specimen Type: PLASMA No comment entered. Ordering Provider: AILIN CHESTER Report Released Date/Time: Nov 23, 2022 11:58 AM Reporting Lab: [address] Performing Lab: [address] ([facility]) CBC LEUKOCYTES [#/VOLUME] IN BLOOD BY AUTOMATED COUNT 10.80 10*3/u L 4.0 - 11.0 11/23 Specimen Type: BLOOD No comment entered. Ordering Provider: AILIN CHESTER Report Released Date/Time: Nov 23, 2022 11:58 AM Reporting Lab: [place] [phone] Performing Lab: [address] ([facility]) CBC ERYTHROCYTE S [#/VOLUME] IN BLOOD BY AUTOMATED COUNT 3.87 10*6/u L 4.6 - 6.2 11/23 L Specimen Type: BLOOD No comment entered. Ordering Provider: AILIN CHESTER Report Released Date/Time: Nov 23, 2022 11:58 AM Reporting Lab: [place] [phone] Performing Lab: [address] ([facility]) CBC HEMOGLOBIN [MASS/VOLUM E] IN BLOOD 12.1 g/dL 13.5 - 17.9 11/23 L Specimen Type: BLOOD No comment entered. Ordering Provider: AILIN CHESTER Report Released Date/Time: Nov 23, 2022 11:58 AM Reporting Lab: [facility] [phone] Performing Lab: [facility] [address] [place] ([facility]) CBC HEMATOCRIT [VOLUME FRACTION] OF BLOOD BY AUTOMATED COUNT 37.5 41 - 54 11/23 L Specimen Type: BLOOD No comment entered. Ordering Provider: AILIN CHESTER Report Released Date/Time: Nov 23, 2022 11:58 AM Reporting Lab: [place] [phone] Performing Lab: [address] [place] [address] ([facility]) CBC MCV [ENTITIC VOLUME] BY AUTOMATED COUNT 96.9 fL 80 - 100 11/23 Specimen Type: BLOOD No comment entered. Ordering Provider: AILIN CHESTER Report Released Date/Time: Nov 23, 2022 11:58 AM Reporting Lab: [facility] [address] Performing Lab: [facility] [phone] [place] [address] ([facility]) CBC MCH [ENTITIC MASS] BY AUTOMATED COUNT 31.3 pg 27 - 33 11/23 Specimen Type: BLOOD No comment entered. Ordering Provider: AILIN CHESTER Report Released Date/Time: Nov 23, 2022 11:58 AM Reporting Lab: [facility] [address] Performing Lab: [facility] [address] [place] ([facility]) CBC MCHC [MASS/VOLUM E] BY AUTOMATED COUNT 32.3 g/dL 32.0 - 37.5 11/23 Specimen Type: BLOOD No comment entered. Ordering Provider: AILIN CHESTER Report Released Date/Time: Nov 23, 2022 11:58 AM Reporting Lab: [facility] [address] Performing Lab: [place] [phone] [place] ([facility]) CBC PLATELETS [#/VOLUME] IN BLOOD BY AUTOMATED COUNT 293 10*3/u L 150 - 400 11/23 Specimen Type: BLOOD No comment entered. Ordering Provider: AILIN CHESTER Report Released Date/Time: Nov 23, 2022 11:58 AM Reporting Lab: [facility] [address] Performing Lab: [facility] [address] [place] ([facility]) CBC PLATELET MEAN VOLUME [ENTITIC VOLUME] IN BLOOD BY AUTOMATED COUNT 10.3 fL 7.4 - 10.4 11/23 Specimen Type: BLOOD No comment entered. Ordering Provider: AILIN CHESTER Report Released Date/Time: Nov 23, 2022 11:58 AM Reporting Lab: [address] Performing Lab: [address] ([facility]) CBC ERYTHROCYTE DISTRIBUTIO N WIDTH [RATIO] BY AUTOMATED COUNT 13.2 11.5 - 14.5 11/23 Specimen Type: BLOOD No comment entered. Ordering Provider: AILIN CHESTER Report Released Date/Time: Nov 23, 2022 11:58 AM Reporting Lab: [facility] [address] Performing Lab: [facility] [phone] [place] [address] ([facility]) HEMOGLOBI N A1C HEMOGLOBIN A1C/HEMOGLO BIN.TOTAL [...] Nov 23, 2022 11:58 AM Reporting Lab: [facility] [address] Performing Lab: [facility] [address] [place] ([facility]) COMPREHEN SIVE METABOLIC PANEL+MG CREATININE [MASS/VOLUM E] IN SERUM OR PLASMA 1.2 mg/dL 0.7 - 1.2 11/23 Specimen Type: PLASMA No comment entered. Ordering Provider: AILIN CHESTER Report Released Date/Time: Nov 23, 2022 11:58 AM Reporting Lab: [facility] [address] Performing Lab: [facility] [address] [place] ([facility]) COMPREHEN SIVE METABOLIC PANEL+MG UREA NITROGEN [MASS/VOLUM E] IN SERUM OR PLASMA 34 mg/dL 8 - 26 11/23 H Specimen Type: PLASMA No comment entered. Ordering Provider: AILIN CHESTER Report Released Date/Time: Nov 23, 2022 11:58 AM Reporting Lab: [facility] [address] Performing Lab: [facility] [address] [place] ([facility]) COMPREHEN SIVE METABOLIC PANEL+MG GLUCOSE [MASS/VOLUM E] IN SERUM OR PLASMA 54 mg/dL 70 - 100 11/23 L Specimen Type: PLASMA No comment entered. Ordering Provider: AILIN CHESTER Report Released Date/Time: Nov 23, 2022 11:58 AM Reporting Lab: [facility] [address] Performing Lab: [facility] [address] [place] ([facility]) COMPREHEN SIVE METABOLIC PANEL+MG SODIUM [MOLES/VOLU ME] IN SERUM OR PLASMA 143 mmol/L 136 - 145 11/23 Specimen Type: PLASMA No comment entered. Ordering Provider: AILIN CHESTER Report Released Date/Time: Nov 23, 2022 11:58 AM Reporting Lab: [facility] [address] Performing Lab: [facility] [address] [place] ([facility]) COMPREHEN SIVE METABOLIC PANEL+MG POTASSIUM [MOLES/VOLU ME] IN SERUM OR PLASMA 4.4 mmol/L 3.5 - 5.1 11/23 Specimen Type: PLASMA No comment entered. Ordering Provider: AILIN CHESTER Report Released Date/Time: Nov 23, 2022 11:58 AM Reporting Lab: [facility] [address] Performing Lab: [facility] [address] [place] ([facility]) COMPREHEN SIVE METABOLIC PANEL+MG CHLORIDE [MOLES/VOLU ME] IN SERUM OR PLASMA 107 mmol/L 98 - 107 11/23 Specimen Type: PLASMA No comment entered. Ordering Provider: AILIN CHESTER Report Released Date/Time: Nov 23, 2022 11:58 AM Reporting Lab: [facility] [address] Performing Lab: [facility] [address] [place] ([facility]) COMPREHEN SIVE METABOLIC PANEL+MG CARBON DIOXIDE, TOTAL [MOLES/VOLU ME] IN SERUM OR PLASMA 23 mmol/L 22 - 29 11/23 Specimen Type: PLASMA No comment entered. Ordering Provider: AILIN CHESTER Report Released Date/Time: Nov 23, 2022 11:58 AM Reporting Lab: [place] [phone] Performing Lab: [place] [phone] [place] ([facility]) COMPREHEN SIVE METABOLIC PANEL+MG CALCIUM [MASS/VOLUM E] IN SERUM OR PLASMA 9.7 mg/dL 8.4 - 10.2 11/23 Specimen Type: PLASMA No comment entered. Ordering Provider: AILIN CHESTER Report Released Date/Time: Nov 23, 2022 11:58 AM Reporting Lab: [facility] [address] Performing Lab: [facility] [address] [place] ([facility]) COMPREHEN SIVE METABOLIC PANEL+MG PROTEIN [MASS/VOLUM E] IN SERUM OR PLASMA 7.2 g/dL 6.0 - 8.3 11/23 Specimen Type: PLASMA No comment entered. Ordering Provider: AILIN CHESTER Report Released Date/Time: Nov 23, 2022 11:58 AM Reporting Lab: [facility] [address] Performing Lab: [facility] [address] [place] ([facility]) COMPREHEN SIVE METABOLIC PANEL+MG ALBUMIN [MASS/VOLUM E] IN SERUM OR PLASMA 4.1 g/dL 3.5 - 5.2 11/23 Specimen Type: PLASMA No comment entered. Ordering Provider: AILIN CHESTER Report Released Date/Time: Nov 23, 2022 11:58 AM Reporting Lab: [facility] [address] Performing Lab: [facility] [address] [place] ([facility]) COMPREHEN SIVE METABOLIC PANEL+MG BILIRUBIN.T OTAL [MASS/VOLUM E] IN SERUM OR PLASMA 0.5 mg/dL 0.2 - 1.2 11/23 Specimen Type: PLASMA No comment entered. Ordering Provider: AILIN CHESTER Report Released Date/Time: Nov 23, 2022 11:58 AM Reporting Lab: [facility] [address] Performing Lab: [facility] [address] [place] ([facility]) COMPREHEN SIVE METABOLIC PANEL+MG MAGNESIUM [MASS/VOLUM E] IN SERUM OR PLASMA 1.4 mg/dL 1.6 - 2.6 11/23 L Specimen Type: PLASMA No comment entered. Ordering Provider: AILIN CHESTER Report Released Date/Time: Nov 23, 2022 11:58 AM Reporting Lab: [facility] [phone] Performing Lab: [facility] [address] [place] ([facility]) COMPREHEN SIVE METABOLIC PANEL+MG ANION GAP IN SERUM OR PLASMA 13 mmol/L 5 - 15 11/23 Specimen Type: PLASMA No comment entered. Ordering Provider: AILIN CHESTER Report Released Date/Time: Nov 23, 2022 11:58 AM Reporting Lab: [facility] [phone] Performing Lab: [facility] [address] [place] ([facility]) COMPREHEN SIVE METABOLIC PANEL+MG ALKALINE PHOSPHATASE [ENZYMATIC ACTIVITY/VO LUME] IN SERUM OR PLASMA 87 U/L 40 - 150 11/23 Specimen Type: PLASMA No comment entered. Ordering Provider: AILIN CHESTER Report Released Date/Time: Nov 23, 2022 11:58 AM Reporting Lab: [facility] [phone] Performing Lab: [facility] [phone] [place] ([facility]) COMPREHEN SIVE METABOLIC PANEL+MG ALANINE AMINOTRANSF ERASE [ENZYMATIC ACTIVITY/VO LUME] IN SERUM OR PLASMA 28 U/L 11/23 Specimen Type: PLASMA No comment entered. Ordering Provider: AILIN CHESTER Report Released Date/Time: Nov 23, 2022 11:58 AM Reporting Lab: [facility] [phone] Performing Lab: [facility] [phone] [place] ([facility]) COMPREHEN SIVE METABOLIC PANEL+MG ASPARTATE AMINOTRANSF ERASE [ENZYMATIC ACTIVITY/VO LUME] IN SERUM OR PLASMA 33 U/L 11/23 Specimen Type: PLASMA No comment entered. Ordering Provider: AILIN CHESTER Report Released Date/Time: Nov 23, 2022 11:58 AM Reporting Lab: [facility] [phone] Performing Lab: [facility] [phone] [place] ([facility]) COMPREHEN SIVE METABOLIC PANEL+MG GLOMERULAR FILTRATION RATE/1.73 SQ M.PREDICTED [VOLUME RATE/AREA] IN SERUM, PLASMA OR BLOOD BY CREATININE- BASED FORMULA (CKD-EPI 2020) 61 11/23 Specimen Type: PLASMA No comment entered. Ordering Provider: AILIN CHESTER Report Released Date/Time: Nov 23, 2022 11:58 AM Reporting Lab: [facility] [phone] Performing Lab: [facility] [id number] [place] ([facility]) Vital Signs Combined list of inpatient [...] list of: 1) Encounters from Department of [facility] Affairs facilities going back up to thelast 18 months. 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 Location Location Details Encounter Type Encounter Number Reason For Visit Attending Provider ADM Date DC Date Status Disposition Source [facility] Outpatient Encounter [id number] [id number] 11/11 [facility] Outpatient Encounter [id number] ZARI POWER 11/16 [facility] Outpatient Encounter [id number] 11/21 [facility] ([facility] OFFICE O/P EST MOD 30-39 MIN [id number] Diagnos is: ICD-10- CM Z00.00 Encntr for general adult medical exam w/o abnorma l finding s
CANDELARIO CHESTER 11/23 [place] ([facility]) [place] ([facility]) GAIT TRAINING THERAPY [id number] Diagnos is: ICD-10- CM R26.89 Other abnorma lities of gait and mobilit y
TRINOOMAYRA MCDERMOTT V 11/23 [place] ([facility]) [place] [facility] Outpatient Encounter [id number] SA TRINO RA R 12/11 [place] [facility] [place] [facility] Outpatient Encounter [id number] 12/25 [place] [facility] [place] [facility] Outpatient Encounter [id number] SA TRINO RA R 12/28 [place] [facility] [place] [facility] Outpatient Encounter [id number] 01/05 [place] [facility] [place] [facility] Outpatient Encounter [id number] 01/11 [place] [facility] [place] [facility] Outpatient Encounter [id number] 01/16 [place] [facility] [place] ([facility]) OFFICE O/P EST HI 40-54 MIN [id number] Diagnos is: ICD-10- CM I50.9 Heart failure , unspeci fied
CANDELARIO CHESTER 01/23 [place] ([facility] [place] [facility] Outpatient Encounter [id number] Marcus POTTS I 01/24 [place] [facility] [place] [facility] Outpatient Encounter [id number] Danica TORRE 02/05 [place] [facility] [place] [facility] Outpatient Encounter [id number] 02/09 [place] [facility] [place] [facility] Outpatient Encounter [id number] Danica TORRE 02/09 [place] [facility] [place] [facility] Outpatient Encounter [id number] 02/14 [place] [facility] [place] [facility] Outpatient Encounter [id number] 02/15 [place] [place] [facility] Outpatient Encounter [id number] 02/19 [place] [facility] [place] [facility] Outpatient Encounter [id number] 02/20 [place] [facility] [place] [facility] Outpatient Encounter [id number] 02/20 [place] [facility] [place] [facility] Outpatient Encounter [id number] 02/20 [place] [facility] [place] [facility] Outpatient Encounter [id number] 02/20 [place] [facility] [place] [facility] Outpatient Encounter [id number] 02/21 [place] [facility] [facility] [place] [facility] QNHP OL DIG ASSMT&MGMT 5-10 [id number] Diagnos is: ICD-10- CM E11.9 Type 2 diabete s mellitu s without complic ations< br/> HARDER,SIVA LY 02/22 [place] [facility] PRO PHONE CALL 11-20 MIN [id number] Diagnos is: ICD-10- CM I50.9 Heart failure , unspeci fied
JERMAINE ALCANTAR ANDMARIA INES M 02/23 [place] ([facility] [place] [facility] Outpatient Encounter [id number] 02/26 [place] [facility] [place] [facility] Outpatient Encounter [id number] 03/01 [place] [facility] [place] [facility] Outpatient Encounter [id number] 03/05 [place] [facility] [place] [facility] Outpatient Encounter [id number] SA RA Sandra JAMESON 03/09 [place] [facility] [place] [facility] Outpatient Encounter [id number] 03/14 [place] [facility] [place] [facility] Outpatient Encounter [id number] TRINO R 04/12 [facility] [place] [facility] Outpatient Encounter [id number] [facility] R 04/16 [facility] [place] [facility] Outpatient Encounter [id number] [facility] R 05/01 [facility] [place] [facility] Outpatient Encounter [id number] 07/11 [facility] [place] [facility] Outpatient Encounter [id number] [facility] [place] [facility] Outpatient Encounter [id number] 07/12 [facility] PRO PHONE CALL 5-10 MIN [id number] Diagnos is: ICD-10- CM 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
VIV BARFIELD 07/19 [facility] HEARING AID REPAIR/MOD IFYING [id number] Diagnos is: ICD-10- CM 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
CARY CORCORAN 08/09 [facility] HEARING AID FITTING/CH ECKING [id number] Diagnos is: ICD-10- CM 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
Sy MAKI 09/17 [facility] [place] [facility] Outpatient Encounter [id number] 10/17 [facility] ([facility]) OFFICE O/P EST HI 40 MIN [id number] Diagnos is: ICD-10- CM E11.9 Type 2 diabete s mellitu s without complic ations< br/> CANDELARIO CHESTER 11/07 [place] ([facility]) [place] ([facility]) PT EVAL MOD COMPLEX 30 MIN [id number] Diagnos is: ICD-10- CM Z74.09 Other reduced mobilit y
OMAYRA JAMESON NTER V 12/17 [place] ([facility]) [facility] Outpatient Encounter [id number] 01/03 [facility] [place] [facility] Outpatient Encounter [id number] 01/09 [facility] WHEELCHAIR MNGMENT TRAINING [id number] Diagnos is: ICD-10- CM R53.1 Weaknes s
ANDERS EATON R 01/29 [facility] Outpatient Encounter [id number] 01/30 [facility] HEARING AID CHECK BOTH EARS [id number] Diagnos is: ICD-10- CM Z46.1 Encount er for fitting and adjustm ent of hearing aid<br/ > SUZY BLACK AEL F 02/01 [facility] Outpatient Encounter [id number] SA TRINO RA R 02/11 [facility] [place] [facility] Outpatient Encounter [id number] 02/25 [facility] [place] [facility] Outpatient Encounter [id number] JYOTSNA SMART 03/10 [facility] ([facility]) OFFICE O/P EST MOD 30 MIN [id number] Diagnos is: ICD-10- CM L89.623 Pressur e ulcer of left heel, stage 3
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
CIARA BALDERRAMA J 03/20 [facility] HEARING AID REPAIR/MOD IFYING [id number] Diagnos is: ICD-10- CM 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
KEIRA JEAN 04/01 [facility] WHEELCHAIR MNGMENT TRAINING [id number] Diagnos is: ICD-10- CM R53.1 Weaknes s
ANDERS EATON R 04/07 [facility] Social History Combined list of available smoking, tobacco, and other social history from Department of Defense and Veterans Affairs facilities. Social History Type Response Date Comment [facility] e Tobacco smoking status [facility] VA-TOBACCO FORMER USER 11/08/2023 [place] ([facility]) History of tobacco use [place]-TO[place] QUIT 1 5 YRS OR MORE 11/08/2023 [place] ([facility]) History of tobacco use VA-TOBACCO FORMER USER 11/23/2022 [place] ([facility]) History of tobacco use VA-TOBACCO FORMER USER 11/29/2021 [place] ([facility]) History of tobacco use VA-TOBACCO FORMER USER 10/21/2020 [place] ([facility]) Plan of Care List of future care activities from Department of Veterans Affairs facilities. Additional future care activities may be listed in the Assessment and Plan section. Date/Time Care Activity Care Activity Detail Facili ty 04/18/2024 Consult Order PROSTHETICS REQU EST Cons Network Design Architect's Choice [facility]
--- OUTSIDE RECORDS SUMMARY | 2024-04-21 14:19 | XMS_ITS | Encounter Summary ---
Author Name [facility] [place] Address [address] [place] [address] Care Team Providers Care Industrial Automation Specialist Name Role Phone JIMENEZ CHESTER Primary Care [...] Cherry's Name Patient's Relationship to Policy Cherry [facility] (WNR) MEDICARE ADVANTAGE [facility] (WNR) May 14, 2020 [id number] [phone] PITER CASAS ERD PATIENT Selected Encounter This section includes the information on record at [place] for the Encounter. Date/Time Encounter Type Encounter Description Reason Provider Source September 18, 2023 01:00 PM HEARING AID FITTING/CHECKIN G AUDIOLOGY ICD-10-CM H90.3 Sensorineural hearing loss, bilateral RADHA MAKI IHEmerald Encounter Template Text not used by [place] Assessments - Encounter Diagnoses This section includes the primary and secondary diagnoses documented for the Encounter. Date/Time Primary/Secondary Diagnosis Diagnosis Name Provider Source September 18, 2023 04:52 PM PRIMARY Sensorineural hearing loss, bilateral RADHA MAKI [facility] September 18, 2023 04:52 PM SECONDARY Encounter for fitting and adjustment of hearing aid RADHA MAKI [facility] Plan of Treatment: Future Appointments (+ 6 months) and Future Tests (+/- 45 days) The Plan of Treatment section includes future care activities for the patient from [facility] [place] [facility] This section includes future appointments and future orders which are active, pending or scheduled. Future Appointments This section includes appointments that were scheduled to occur 6 months from the date of the Encounter, up to a maximum of 20 appointments. The data comes from all [facility] facilities. Appointment Date/Time Appointment Type Appointme nt Facility Name Nov 08, 2023 10:00 AM AMBULATORY - MEDICINE [place] ([facility]) Dec 18, 2023 10:45 AM AMBULATORY - [place]AB MEDICIN [place] ([facility]) Jan 30, 2024 10:00 AM AMBULATORY - REHAB MEDICIN E [facility] Feb 02, 2024 10:15 AM AMBULATORY - SURGERY [facility] Feb 12, 2024 02:00 PM AMBULATORY - NONE [facility] Mar 11, 2024 11:30 AM AMBULATORY - MEDICINE [place] ([facility]) Mar 18, 2024 07:01 AM AMBULATORY - NONE [facility] Mar 20, 2024 09:00 AM AMBULATORY - REHAB MEDICWA E [facility] Mar 20, 2024 02:30 PM AMBULATORY - SURGERY [facility] Encounter Notes: All associated encounter notes [...] The following hearing aid problem/s were presented: and his are typically seen through community care. They reported that the eligibility criteria recently changed and now they have to drive here to [place] for appointments. This is understandably frustrating. would [...] Hearing aids right/left; Issued 12/07/2020 ([facility]): Make: Resound Model: One 61 miniRIC-R Style: [facility] Serial #s: [id number] Acoustics: 2MP, silicone micro molds Action: - Aids cleaned and checked. - Paired remote control and multi-carrie to hearing aids. given brief tutorial per his request, as he has already used both of these devices before. Verified functionality. - [place] and informed that we offer video and phone call appointments for future concerns. They will keep this in mind. Plan: - will contact this clinic if questions or problems arise. - [place] is in agreement with this plan. /riccardo/ MADI MAKI Fifth Hand Signed: 09/18/2023 16:53 MADI MAKI [facility]
--- OUTSIDE RECORDS SUMMARY | 2024-04-21 14:19 | XMS_ITS | Encounter Summary ---
Author Name [place] Address [address] [place] [address] Care Team Providers Care Supervisor Sleeping Bag Department Name Role Phone JIMENEZ CHESTER Primary Care [...] Cherry's Name Patient's Relationship to Policy Cherry [facility] (WNR) MEDICARE ADVANTAGE [facility] (WNR) May 14, 2020 [id number] [phone] PITER CASAS ERD PATIENT Selected Encounter This section includes the information on record at [place] for the Encounter. Date/Time Encounter Type Encounter Description Reason Provider Source Nov 08, 2023 10:00 AM OFFICE O/P EST HI 40 MIN PRIMARY CARE/MEDICINE ICD-10-CM E11.9 Type 2 diabetes mellitus without complications JIMENEZ CHESTER [place] Encounter Template Text not used by [place] Assessments - Encounter Diagnoses This section includes the primary and secondary diagnoses documented for the Encounter. Date/Time Primary/Secondary Diagnosis Diagnosis Name Provider Source Nov 09, 2023 07:19 AM PRIMARY Type 2 diabetes mellitus without complications JIMENEZ CHESTER ([facility]) Nov 09, 2023 07:19 AM SECONDARY Athscl heart disease of [place] coronary artery w/o ang pctrs JIMENEZ CHESTER ([facility]) Nov 09, 2023 07:19 AM SECONDARY Encntr for general adult medical exam w/o abnormal findings JIMENEZ CHESTER ([facility]) Nov 09, 2023 07:19 AM SECONDARY Essential (primary) hypertension JIMENEZ CHESTER [place] ([facility]) Nov 09, 2023 07:19 AM SECONDARY Heart failure, unspecified JIMENEZ CHESTER [place] ([facility]) Nov 09, 2023 07:19 AM SECONDARY Hyperlipidemia, unspecified JIMENEZ CHESTER [place] ([facility]) Nov 09, 2023 07:19 AM SECONDARY Hypothyroidism, unspecified JIMENEZ CHESTER [place] (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) Plan of Treatment: Future Appointments (+ 6 months) and Future Tests (+/- 45 days) The Plan of Treatment section includes future care activities for the patient from all [place] [facility]. This section includes future appointments and future orders which are active, pending or scheduled. Future Appointments This section includes appointments that were scheduled to occur 6 months from the date of the Encounter, up to a maximum of 20 appointments. The data comes from all [facility] facilities. Appointment Date/Time Appointment Type Appointme nt Facility Name Dec 18, 2023 10:45 AM AMBULATORY - REH[place] MEDICIN [place] ([facility]) Jan 30, 2024 10:00 AM AMBULATORY - [facility] Feb 02, 2024 10:15 AM AMBULATORY - SURGERY [facility] Feb 12, 2024 02:00 PM AMBULATORY - NONE [facility] Mar 11, 2024 11:30 AM AMBULATORY - MEDICINE [facility] ([facility]) Mar 18, 2024 07:01 AM AMBULATORY - NONE [facility] Mar 20, 2024 09:00 AM [facility] Mar 20, 2024 02:30 PM AMBULATORY - SURGERY [facility] Apr 07, 2024 10:30 AM [facility] Vital Signs: All taken on the encounter date This section contains inpatient and outpatient Vital Signs collected on the date of the Encounter. Date/Time Temperature Pulse Blood Pressure Respiratory Rate SP02 Pain Height Weight Body Mass Index Source Nov 08, 2023 09:55 AM 98.7 72 116/69 16 97 0 69 166.1 25 [facility] ([facility]) Social History: Smoking Status (Most current) and Tobacco Use (All prior to encounter date) This section includes the most current, and the historical, smoking and tobacco- related health factors from the [place] facility where the Encounter took place. Current Smoking Status This section includes the most current smoking, or tobacco-related health factor, from the [place] facility where the Encounter took place. Date/Time Current Smoking Status Comment Federico ity Nov 08, 2023 10:00 AM VA-TOBACCO QUIT 15 YRS OR MORE [place] ([facility]) Tobacco Use History This section includes a history of the smoking, or tobacco-related health factors, that were collected on or before the date of the Encounter. The data comes from the [place] facility where the Encounter took place. Date/Time Smoking Status/Tobacco Use Comment F acility Nov 08, 2023 10:00 AM VA-TOBACCO QUIT 15 YRS OR MORE [place] ([facility]) Nov 23, 2022 11:00 AM VA-TOBACCO FORMER USER [place] ([facility]) Nov 23, 2022 11:00 AM VA-TOBACCO QUIT 15 YRS OR MORE [place] ([facility]) Nov 29, 2021 10:00 AM VA-TOBACCO FORMER USER [place] ([facility]) Nov 29, 2021 10:00 AM VA-TOBACCO QUIT 15 YRS OR MORE [place] ([facility]) Oct 21, 2020 10:30 AM VA-TOBACCO FORMER USER [place] ([facility]) Oct 21, 2020 10:30 AM VA-TOBACCO QUIT 15 YRS OR MORE [place] ([facility]) Encounter Notes: All associated encounter notes This section contains the clinical notes associated to the Encounter. Date/Time Encounter Note(s) Provider Source Nov 08, 2023 10:18 AM H & P NOTE: LOCAL TITLE: [facility] ANNUAL VISIT STANDARD TITLE: H & P NOTE DATE OF NOTE: NOV 08, 2023@10:18 ENTRY DATE: NOV 08, 2023@08:30:44 AUTHOR: JIMENEZ CHESTER EXP COSIGNER: URGENCY: STATUS: COMPLETED Type of Visit: Face to Face Reason for Visit: Annual review of chronic medical conditions HPI: 83 year-old MALE here for his annual visit. [place] was last seen on 11/23/2022 for his [...] point. He is working with provider at [facility]. Rory has had a right lower extremity [...] be receiving his insulin aspart through the [place]. Co-managed: [facility] - Melquiades Man MD - 11/06/2023 Annual [...] Rare 4. Illicit drugs: none 5. Employment: [employer] work 39 years 6. Service: [employer] Allergies: NKDA Physical Exam: Temp: 98.7 F [...] with Reduced EF - Follow-up planned at [facility] [place] (private [place]) - LDL goal < 70, [...] 01/21/2021 [place]* <C> ZOSTER RECOMBINANT 2 01/21/2021 [place]* ZOSTER RECOMBINANT 1 10/21/2020 [place]* RTC in 1 year annual visit CPRS [...] were also reviewed/updated for accuracy. Allergies/ADR from [facility] may not display in CPRS. Use JLV MRT5 - Allergies/ADRs FACILITY ALLERGY/ADR -------- No Remote Allergy/ADR Data available for this patient [facility] No Known Allergies Active and Recently Outpatient [...] MD PHYSICIAN Signed: 11/09/2023 07:20 JIMENEZ CHESTER ([facility]) Nov 08, 2023 10:11 AM ADVANCE DIRECTIVE: LOCAL TITLE: AD NOTIFICATION AND SCREENING STANDARD TITLE: ADVANCE DIRECTIVE DATE OF NOTE: NOV 08, 2023@10:11 ENTRY DATE: NOV 08, 2023@10:12:18 AUTHOR: ZARI ANTHONY COSIGNER: URGENCY: STATUS: COMPLETED ADVANCE DIRECTIVE NOTIFICATION: Patient was given written notification of the following rights: 1. Accept or refuse any medical treatment. 2. Complete a durable power of deputy prosecuting attorney for health care. 3. Complete a living will. ADVANCE DIRECTIVE SCREENING: Does patient have an Advance Directive? The patient does not have an Advance Directive. The patient wishes to create an Advance Directive for health care. The patient has no questions about completing the Advance Directive forms. /riccardo/ ZARI ANTHONY LPN Signed: 11/08/2023 10:12 ZARI ANTHONY ([facility]) Nov 08, 2023 10:01 AM PRIMARY CARE NOTE: LOCAL TITLE: [facility] STAND[facility] TITLE: PRIMARY CARE NOTE DATE OF NOTE: NOV 08, 2023@10:01 ENTRY DATE: NOV 08, 2023@10:01:58 AUTHOR: ZARI ANTHONY EXP COSIGNER: URGENCY: STATUS: COMPLETED TYPE OF VISIT: Appointment Check In Type of appointment: In-person appointment REASON FOR VISIT: Annual, co-managed Gena Lopez), non-fasting ALLERGIES: Patient has answered NKA VITAL [...] Not at all Suicide Screen: C-SSRS Screening [place] Suicide Severity Rating Scale (C-SSRS) screener 1. [...] ulcers, or a wound from a medical anthropologist or Patient is bed-confined or a wheelchair-user or Patient requires assistance to transfer/change position No, Skin Screen is Negative Home Abuse/Violence Screen Is your home free of abuse and violence? Yes MOVE! Program Screen Body Mass Index (BMI)= 24.6 [place]: Collection DT Specimen Test Name Result Units Ref Range 11/23/2022 12:09 BLOOD !! HEMOGLOBIN A1C 7.4 H % 4.0 - 6.0 !! Indicates COMMENTS AVAILABLE...Refer to Interim Lab Report. [place] Hgb A1C: No data available [place] Hgb A1C: No data available Point of Care Hgb A1C: POC HGB A1C____ Outpatient Nutrition Screen Body Mass Index (BMI)= 24.6 [place]: Collection DT Specimen Test Name Result Units Ref Range 11/23/2022 12:09 BLOOD !! HEMOGLOBIN A1C 7.4 H % 4.0 - 6.0 !! Indicates COMMENTS AVAILABLE...Refer to Interim Lab Report. [place] Hgb A1C: No data available [place] Hgb A1C: No data available Point of [...] Abnormal( is being followed by PCP through [facility] and [facility]. [place] is a Right below the knee amputee. /riccardo/ ZARI ANTHONY LPN Signed: 11/08/2023 10:10 ZARI ANTHONY ([facility])
--- OUTSIDE RECORDS SUMMARY | 2024-04-21 14:20 | XMS_ITS | Encounter Summary ---
Author Name [place] Address [address] [place] [address] Care Team Providers Care Drier And Grinder Tender Name Role Phone JIMENEZ CHESTER Primary Care [...] Name Patient's Relationship to Policy Cherry [facility] (WNR) MEDICARE ADVANTAGE [facility] (WNR) May 14, 2020 [id number] [phone] PITER CASAS ERD PATIENT Selected Encounter This section includes the information on record at [place] for the Encounter. Date/Time Encounter Type Encounter Description Reason Pro vider Source Mar 10, 2024 12:00 PM Outpatient Encounter TELEPHONE TRIAGE JYOTSNA SMART Encounter Template Text not used by [place] [...] 2024 07:01 AM AMBULATORY - NONE [facility] Mar 20, 2024 09:00 AM AMBULATORY - REHAB MEDICIN E [facility] Mar 20, 2024 02:30 PM AMBULATORY - SURGERY [facility] Apr 07, 2024 10:30 AM AMBULATORY - REHAB [facility] Active, Pending, and Scheduled Orders This section includes a listing of several types of active, pending, and scheduled orders, including clinic medications orders, diagnostic test orders, procedure orders and consult orders; where the start date of the order is 45 days before the date of the Encounter or 45 days after the date of theEncounter. The data comes from all [facility]. Test Date/Time Test Type Test Details Facility Name Apr 18, 2024 09:25 AM Consult Order PROSTHETIC S REQUEST Cons Hot Plate Plywood Press Laborer's Choice [facility] Encounter Notes: [...] Patient Name: JUNG CASAS Patient Primary Address: [address] [place] [address] Patient Primary Phone: [phone] Patient : 1940 Patient Age: 83 Call Back Number: [phone] Caller/Recipient Relation to Patient: Other If Other Describe Relation to Patient: Spouse Caller Name: Shellie Emergency Contact: SHELLIE CASAS Triage Summary Chief Complaint: Pressure Ulcer System WHEN: Within 8 Hours Nurse's Recommendation / WHEN: Within 24 Hours System WHERE: Urgent care center Nurse's Recommendation / WHERE: Clinic/[facility] Nursing Plan and Disposition Referred Patient for In-Person Appt Transferred patient to Sched & Admin-Apt Nurse Summary Nurse Summary: PATIENT CONCERN/DURATION/ONSET: [place] spouse Shellie is calling to get Authorization for [facility] appt. Shellie reports that the had a non healing pressure ulcer on his left heel, which [facility] was managing. ''It closed. A [...] requesting for authorization of wound management to [facility] Was Virtual Care Visit considered (TELE or VVC)? 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 Educated on the reasoning for triage recommendation, risks and benefits. [place] agreeable to proceed with scheduling. Warm hand off to appropriate scheduling, appts available with PACT within time frame. Appointment scheduled. Educated on education as listed below. Discussed with verbal understand of type of symptoms when to call triage back, seek ER//[facility] eval. Best contact for is [phone] (Verified). This note was created by a [facility] [place] [facility] RN. Please do not alert this nurse by adding as a signer for future communications. Alerts are not monitored by this user, please reach out to [place] [facility] Leadership instead if indicated. Clinical Contact Center Codes Clinic/Location: V23 [facility] PHONE CCC RN Decision Support System Output: Triage Complete Triage Date: 03/10/2024, 11:52 AM Triage Note: Decision Support Tool Used: TXCC Phone Triage 10 Mar 2024 16:43:32 +0000 [facility] Demographics 83 y/o Male Results CC: Pressure [...] ulcer includes: Monitor Dressing Avoid pressure on on site manager daily To call back for new or worsening symptoms Please seek ER if you endorse any of the following symptoms: Severe pain around the site Pus draining from the ulcer Fever over 101 degrees F (38.3 C) SOB Sudden weakness, chills, sweats Confusion IMPORTANT: This note was created by [facility] Clinical Contact Center staff. Please do not alert the staff member by adding them as a signer for future communications. Alerts are not monitored by this user. /riccardo/ JYOTSNA SMART RN VISN 23 DAYTIME FLEA MARKET SELLER Signed: 03/10/2024 12:00 JYOTSNA SMART [facility]
--- OUTSIDE RECORDS SUMMARY | 2024-04-21 14:20 | XMS_ITS | Encounter Summary ---
Author Name [place] Address [address] [place] [address] Care Team Providers Care Hurricane Tracker Name Role Phone JIMENEZ CHESTER Primary Care [...] Cherry's Name Patient's Relationship to Policy Cherry [facility] (WNR) MEDICARE ADVANTAGE [facility] (WNR) May 14, 2020 [id number] [phone] PITER CASAS ERD PATIENT Selected Encounter This [...] of left heel, stage 3 JIMENEZ CHESTER ([facility]) Mar 11, 2024 02:18 PM SECONDARY Type 2 diabetes mellitus without complications JIMENEZ CHESTER ([facility]) Plan of Treatment: Future Appointments (+ 6 months) and Future Tests (+/- 45 days) The Plan of Treatment section includes future care activities for the patient from all [place] [facility]. This section includes future appointments and future orders which are active, pending or scheduled. Future Appointments This section includes appointments that were scheduled to occur 6 months from the date of the Encounter, up to a maximum of 20 appointments. The data comes from all [facility]. Appointment Date/Time Appointment Type Appointme nt Facility Name Mar 18, 2024 07:01 AM AMBULATORY - NONE [facility] Mar 20, 2024 09:00 AM [facility] Mar 20, 2024 02:30 PM AMBULATORY - SURGERY [facility] Apr 07, 2024 10:30 AM AMBULATORY - REHAB [facility] Active, Pending, and Scheduled Orders This section includes a listing of several types of active, pending, and scheduled orders, including clinic medications orders, diagnostic test orders, procedure orders and consult orders; where the start date of the order is 45 days before the date of the Encounter or 45 days after the date of theEncounter. The data comes from all [facility]. Test Date/Time Test Type Test Details Facility Name Apr 18, 2024 09:25 AM Consult Order PROSTHETIC S REQUEST Cons Gas Stove Servicer Helper's Choice [facility] Vital Signs: All taken on the encounter date This section contains inpatient and outpatient Vital Signs collected on the date of the Encounter. Date/Time Temperature Pulse Blood Pressure Respiratory Rate SP02 Pain Height Weight Body Mass Index Source Mar 11, 2024 11:40 AM 97.9 85 103/62 18 98 0 185.8 27 [facility] ([facility]) Social History: Smoking Status (Most current) and Tobacco Use (All prior to encounter date) This section includes the most current, and the historical, smoking and tobacco- related health factors from the [place] facility where the Encounter took place. Current Smoking Status This section includes the most current smoking, or tobacco-related health factor, from the [place] facility where the Encounter took place. Date/Time Current Smoking Status Comment Federico armenta Nov 08, 2023 10:00 AM [place]-TOBACCO FORMER USER [facility] ([facility]) Tobacco Use History This section includes a history of the smoking, or tobacco-related health factors, that were collected on or before the date of the Encounter. The data comes from the [place] facility where the Encounter took place. Date/Time Smoking Status/Tobacco Use Comment F acility Nov 08, 2023 10:00 AM VA-TOBACCO QUIT 15 YRS OR MORE [facility] ([facility]) Nov 23, 2022 11:00 AM VA-TOBACCO FORMER USER [facility] ([facility]) Nov 23, 2022 11:00 AM VA-TOBACCO QUIT 15 YRS OR MORE [facility] ([facility]) Nov 29, 2021 10:00 AM VA-TOBACCO FORMER USER [facility] ([facility]) Nov 29, 2021 10:00 AM VA-TOBACCO QUIT 15 YRS OR MORE [facility] ([facility]) Oct 21, 2020 10:30 AM VA-TOBACCO FORMER USER [facility] ([facility]) Oct 21, 2020 10:30 AM VA-TOBACCO QUIT 15 YRS OR MORE [facility] ([facility]) Encounter Notes: All associated encounter notes This section contains the clinical notes associated to the Encounter. Date/Time Encounter Note(s) Provider Source Mar 11, 2024 11:55 AM PRIMARY CARE NOTE: LOCAL TITLE: [facility] PROGRESS NOTE-[facility] STANDARD TITLE: PRIMARY CARE NOTE DATE OF [...] Shellie is calling to get Authorization for [facility] appt. Shellie reports that the had a non healing pressure ulcer on his left heel, which [facility] was managing. ''It closed. A [...] fevers, nausea, chills, vomiting, and sweats. See [facility] script for symptom assessment, pertinent positives and negatives. WHAT HAS PATIENT TRIED TO TREAT THE SYMPTOMS: Dressing, padded bandaid and wound medication HISTORY/PREVIOUS TREATMENT: Pressure Ulcer, DMII, History of amputation of right leg through tibia and fibula WHAT IS PATIENT GOAL FOR THE CALL: Nguyễn cortes, requesting for authorization of wound management to [facility] has had wound care photos completed already [...] Rare 4. Illicit drugs: none 5. Employment: [employer] work 39 years 6. Service: [email or web address] Allergies: NKDA Physical Exam: Temp: 97.9 F [...] non-VA PCP - Patient will follow-up through [facility] clinic with PCP [facility] - Future Appointment: 03/20/2024 09:00 BRAYDON DRIVERS OT DION 1U 03/20/2024 14:30 BRAYDON AUD TECH 2S 04/07/2024 10:30 BRAYDON ADV [...] Remote Allergy/ADR Data available for this patient [facility] No Known Allergies Active and [...] MD PHYSICIAN Signed: 03/11/2024 14:18 JIMENEZ CHESTER ([facility]) Mar 11, 2024 11:41 AM PRIMARY CARE NOTE: LOCAL TITLE: [facility] PROGRESS NOTE-[facility] STANDARD TITLE: PRIMARY CARE NOTE DATE OF [...] get more. Never true Food Assistance Programs [facility] Food Assistance Programs [facility] Nursing Annual Screening: Whole Health Screen is due OR due soon (within 90 days). Whole Health Screening Why is addressing your overall health important to you? Longevity What do you want your health for (why do you want to be healthy)? Longevity, see tomorrow /es/ ZARI ANTHONY LPN Signed: 03/11/2024 11:43 ZARI ANTHONY [facility] ([facility])
--- OUTSIDE RECORDS SUMMARY | 2024-04-21 14:20 | XMS_ITS | Encounter Summary ---
Author Name [place] Address [address] [place] [address] Care Team Providers Care Clerical Grader Name Role Phone JIMENEZ CHESTER Primary Care [...] [facility] (WNR) MEDICARE ADVANTAGE [facility] (WNR) May 14, 2020 [id number] [phone] PITER CASAS ERD PATIENT Selected Encounter This section includes the information on record at [place] for the Encounter. Date/Time Encounter Type Encounter Description Reason Provider Source Mar 12, 2024 08:55 AM Outpatient Encounter COMMUNITY CARE CONSULT ARACELI TORRE E Encounter Template Text not used by [place] Plan of Treatment: Future Appointments (+ 6 [...] 20 appointments. The data comes from all [facility]. Appointment Date/Time Appointment Type Appointme nt Facility Name Mar 18, 2024 07:01 AM AMBULATORY - NONE [facility] Mar 20, 2024 09:00 AM AMBULATORY - REHAB MEDICIN E [facility] Mar 20, 2024 02:30 PM AMBULATORY - SURGERY [facility] Apr 07, 2024 10:30 AM AMBULATORY - REHAB [facility] Active, Pending, and Scheduled Orders This section includes a listing of several types of active, pending, and scheduled orders, including clinic medications orders, diagnostic test orders, procedure orders and consult orders; where the start date of the order is 45 days before the date of the Encounter or 45 days after the date of theEncounter. The data comes from all [facility]. Test Date/Time Test Type Test Details Facility Name Apr 18, 2024 09:25 AM Consult Order PROSTHETIC S REQUEST Cons Slot Operations Director's Choice [facility] Encounter Notes: All associated encounter notes This [...] SUBJECT: Community Care Hardship Determination Consult # [id number] COMMUNITY CARE-CARE COORDINATION PLAN NOTE Has ADDENDA PLEASE ADDRESS Please note that Community Care Hardship Determination Consult # [id number] 02/10/2024. ALBA-Hardship request approved by [facility] or designee: 12 months HDL-Hardship decision letter sent to [place]: 02/09/[address] new consult if this hardship determination is still needed. /riccardo/ Araceli Torre RN, BSN, [facility] cop winder Real Estate Administrator Signed: 03/12/2024 09:02 Receipt Acknowledged By: 03/16/2024 18:40 /riccardo/ JIMENEZ CHESTER MD PHYSICIAN 03/12/2024 13:18 /riccardo/ Aamir Hazel RN [facility] 03/16/2024 ADDENDUM STATUS: COMPLETED Best medical interest consult placed. /riccardo/ JIMENEZ CHESTER MD PHYSICIAN Signed: 03/16/2024 18:41 ARACELI TORRE [facility] Mar 12, 2024 08:55 AM NONVA NOTE: LOCAL TITLE: COMMUNITY CARE-CARE COORDINATION PLAN NOTE STANDARD TITLE: NONVA NOTE DATE OF NOTE: MAR 12, 2024@08:55 ENTRY DATE: MAR 12, 2024@08:55:22 AUTHOR: ARACELI TORRE EXP COSIGNER: URGENCY: STATUS: COMPLETED SUBJECT: Community Care Wound Care Consult No: [id number] Community Care Consult: Community Care Wound Care Consult No: [id number] Chief Complaint: Robinson is a with diabetes [...] appropriate Direct communications with interdisciplinary team Plan: [place] assessed as needing complex care coordination which may include case management if appropriate, direct communication with interdisciplinary team and/or [place], chronic disease management if appropriate. and/or caregiver provided direct contact information for community care department by letter. This letter assists with any follow up needs or additional requests for services. [place] to schedule and attend appt. Records will be reviewed by clinical staff and future needs/updated plan of care determined at that time. Multiple comorbidities noted. Proceed with scheduling Placed as HR-High risk consult Placed on [facility] same Day tracker. /riccardo/ Araceli Torre RN, BSN, CCM cop winder Real Estate Administrator Signed: 03/12/2024 08:57 ARACELI TORRE [facility]
--- OUTSIDE RECORDS SUMMARY | 2024-04-21 14:20 | XMS_ITS | Encounter Summary ---
Author Name [place] Address [address] [place] [address] Care Team Providers Care Forestry Aide Name Role Phone JIMENEZ CHESTER Primary Care [...] Cherry's Name Patient's Relationship to Policy Cherry [facility] (WNR) MEDICARE ADVANTAGE [facility] (WNR) May 14, 2020 [id number] [phone] PITER CASAS ERD PATIENT Selected Encounter This section includes the information on record at [place] for the Encounter. Date/Time Encounter Type Encounter Description Reason Pro vider Source Jan 31, 2024 10:16 AM Outpatient Encounter WHEELCHAIR & ADVAN MOBILITY IHE Encounter Template Text not used by [place] Plan of Treatment: Future Appointments (+ 6 [...] The data comes from all [place] treatment [facility]. Appointment Date/Time Appointment Type Appointme nt Facility Name Feb 02, 2024 10:15 AM AMBULATORY - SURGERY [facility] Feb 12, 2024 02:00 PM AMBULATORY - NONE [facility] Mar 11, 2024 11:30 AM AMBULATORY - MEDICINE [facility] ([facility]) Mar 18, 2024 07:01 AM AMBULATORY - NONE [facility] Mar 20, 2024 09:00 AM AMBULATORY - REHAB MEDICIN E [facility] Mar 20, 2024 02:30 PM AMBULATORY - SURGERY [facility] Apr 07, 2024 10:30 AM AMBULATORY - REHAB MEDICIN E [facility] Encounter Notes: All associated encounter notes [...] NOTE Has ADDENDA Patient contact Name of [place]: JUNG CASAS Name/Relationship of Contact if other than [place]: Shellie/Spouse Date & Time of Contact: Jan@10:16 Type of Contact: Telephone Reason for Contact: Received a call from Shellie, opal spouse. She would like to speak with you regarding questions on the Lift for veterans wheelchair. They are looking for authorization for the side entrance where the can drive the wheelchair into the van & stay in the chair. Please contact Shellie at [phone] /riccardo/ ANABELLA JAMIL Advanced MSA Signed: 01/31/2024 10:18 Receipt Acknowledged By: 01/31/2024 10:21 /es/ Ronald Franks OTR/L, ATP OCCUPATIONAL THERAPIST 01/31/2024 ADDENDUM STATUS: COMPLETED Call returned. Discussed that hitch or interior mount lifts would be approved through [place] prosthetics. If ramped entry is desired, it would go through the safe passenger clinic. Although given his service connections, it does not appear he would meet approval for the 4502 [address]ak[address] and this was discussed. Vet/ would be responsible for self-purchasing a side or rear ramped entry vehicle. She noted understanding. /riccardo/ Ronald Franks, OTR/L, ATP OCCUPATIONAL THERAPIST Signed: 01/31/2024 10:23 ANABELLA JAMIL [facility]
--- OUTSIDE RECORDS SUMMARY | 2024-04-21 14:20 | XMS_ITS | Encounter Summary ---
Author Name Department [place] Address [address] [place] [address] Care Team Providers Care Director Stage Name Role Phone JIMENEZ CHESTER Primary Care [...] Cherry's Name Patient's Relationship to Policy Cherry [facility] (WNR) MEDICARE ADVANTAGE [facility] (WNR) May 14, 2020 [id number] [phone] PITER CASAS ERD PATIENT Selected Encounter This [...] and adjustment of hearing aid [facility] Plan of Treatment: Future Appointments (+ 6 months) and Future Tests (+/- 45 days) The Plan of Treatment section includes future care activities for the patient from all [place] [facility]. This section includes future appointments and future orders which are active, pending or scheduled. Future Appointments This section includes appointments that were scheduled to occur 6 months from the date of the Encounter, up to a maximum of 20 appointments. The data comes from all [facility]. Appointment Date/Time Appointment Type Appointme nt Facility Name Feb 12, 2024 02:00 PM AMBULATORY - NONE [facility] Mar 11, 2024 11:30 AM AMBULATORY - MEDICINE [facility] ([facility]) Mar 18, 2024 07:01 AM AMBULATORY - NONE [facility] Mar 20, 2024 09:00 AM AMBULATORY - REHAB MEDICIN E [facility] Mar 20, 2024 02:30 PM AMBULATORY - SURGERY [facility] Apr 07, 2024 10:30 AM AMBULATORY - REHAB MEDICIN E [facility] Encounter Notes: All associated encounter notes This [...] RESOUND RESOUND ONE 61 MINI FRANKO-R R [id number] GN RESOUND RESOUND ONE 61 MINI FRANKO-R L [id number] The following hearing aid problem/s were presented: [...] today: wax guards Ordering wax guards via Dr. TATTOFFES was counseled on the cleaning, care and use of hearing aids. Plan: Patient will schedule an appointment to return to the clinic as needed Patient is in agreement with this plan. Mail new silicone earmold to the address on file. The 's knows how to change/replace /riccardo/ [facility] BLIND HOOKER Signed: 02/02/2024 10:36 /riccardo/ Pauly Perez Ph.D. Geospatial Technician Chief, Audiology Cosigned: 02/11/2024 06:26 02/11/2024 ADDENDUM STATUS: COMPLETED I have reviewed the audiological note and concur with the findings, procedures and recommendations for the . The health fishing tool technician oil well provided services to the during the time of the entire appointment. /riccardo/ Pauly Perez Ph.D. Geospatial Technician Chief, Audiology Signed: 02/11/2024 06:26 02/14/2024 ADDENDUM STATUS: COMPLETED RECEIVED AND CERTIFIED RIGHT RESOUND FRANKO MICRO MOLD MAILED EARMOLD TO INSTRUCTED AT THE ADDRESS ON FILE /riccardo/ MICK CORCORAN AUDIO TECH Signed: 02/14/2024 07:46 /riccardo/ Pauly Cespedes [employer] Pilot Cosigned: 02/20/2024 09:56 [facility]
--- OUTSIDE RECORDS SUMMARY | 2024-04-21 14:20 | XMS_ITS | Encounter Summary ---
Author Name [place] Address [address] [place] [address] Care Team Providers Care Sample Maker Hand Name Role Phone JMIENEZ CHESTER Primary Care Provider Unavailabl e Insurance [...] Cherry's Name Patient's Relationship to Policy [facility]IC[facility] ADVANTAGE [facility] (WNR) May 14, 2020 [id number] [phone] PITER BOWERS ERD PATIENT Selected Encounter This section includes the information on record at PA for the Encounter. Date/Time Encounter Type Encounter Description Reason Provider Source Feb 12, 2024 02:00 PM Outpatient Encounter ADMIN PAT ACTIVTIES (MASNONCT) MIYA JAMESON Encounter Template Text not used by PA Plan of Treatment: Future Appointments (+ 6 [...] 20 appointments. The data comes from all [place] treatment facilities. Appointment Date/Time Appointment Type Appointme nt Facility Name Mar 11, 2024 11:30 AM AMBULATORY - MEDICINE [facility] ([facility]) Mar 18, 2024 07:01 AM AMBULATORY - NONE [facility]ANG [facility] Mar 20, 2024 09:00 AM AMBULATORY - REHAB MEDICIN E [facility] Mar 20, 2024 02:30 PM AMBULATORY - SURGERY ETHAN CAMPOS [facility] Apr 07, 2024 10:30 AM AMBULATORY - REHAB MEDICIN E [facility] Encounter Notes: All associated encounter notes This section contains the clinical notes associated to the Encounter. Date/Time Encounter Note(s) Provider Source Feb 13, 2024 01:43 PM ADDENDUM: LOCAL TITLE: Addendum STANDARD TITLE: ADDENDUM DATE OF NOTE: FEB 13, 2024@13:43:43 ENTRY DATE: FEB 13, 2024@13:43:44 AUTHOR: ANGEL ARMSTRONG EXP COSIGNER: URGENCY: STATUS: COMPLETED [place] was seen in a Community ED. Records uploaded to chart. Please review and follow up as appropriate. /riccardo/ ANGEL ARMSTRONG ...Advanced English As A Second Language Instructor Signed: 02/13/2024 13:43 Receipt Acknowledged By: 02/13/2024 19:51 /es/ JIMENEZ CHESTER MD PHYSICIAN 02/13/2024 14:33 /es/ Aamir Hazel RN [facility] --- Original Document --- 02/10/24 COUNT INCLUDES THE [facility] CARE-THERESA SELF PRESENTING CARE COORD PLAN NOTE: Emergency Notification Intake Date Presenting to the Facility: Jan Method of Contact: Notified from ECR worklist Notification ID: [id number] [facility] Referral #: [facility] Name: Hospital: [facility] Address: City: [place] State: [place] Zip Code: Phone : [facility] Point of Contact: Name: [facility] DEPT Chief complaint: UTI Primary Diagnosis: Disposition Unknown at time of intake note entry /riccardo/ GRIFFIN LEGER [facility] WARDSPERSON Signed: 02/12/2024 14:02 Receipt Acknowledged By: 02/13/2024 08:47 /riccardo/ Miya Jameson RN LISA MSN banana ripening room supervisor Training Mgr 02/13/2024 ADDENDUM STATUS: COMPLETED Notification acknowledged by RN, medical and clinical information not reviewed. /riccardo/ Miya Jameson RN LISA MSN banana ripening room supervisor Training Mgr Signed: 02/13/2024 08:47 02/13/2024 ADDENDUM STATUS: COMPLETED Note from [facility] 03/06 ED encounter: Rosalina Bowers is [...] needs from PACT. /riccardo/ Aamir Hazel RN [facility] Signed: 02/13/2024 14:35 ANGEL ARMSTRONG [facility] Feb 10, 2024 02:01 PM NONVA [...] Contact: Notified from ECR worklist Notification ID: [id number] [facility] Name: Hospital: [facility] Address: City: [place] State: [place] Zip Code: Phone : Community Facility Point of Contact: Name: MOSHE ASHLEY Chief complaint: UTI Primary Diagnosis: Disposition Unknown at time of intake note entry /es/ GRIFFIN LEGER [facility] WARDSPERSON Signed: 02/12/2024 14:02 Receipt Acknowledged By: 02/13/2024 08:47 /es/ Miya Jameson RN LISA MSN banana ripening room supervisor Training Mgr 02/13/2024 ADDENDUM STATUS: COMPLETED Notification acknowledged by RN, medical and clinical information not reviewed. /riccardo/ Miya Jameson RN LISA MSN banana ripening room supervisor Training Mgr Signed: 02/13/2024 08:47 02/13/2024 ADDENDUM STATUS: COMPLETED was seen in a Community ED. Records uploaded to chart. Please review and follow up as appropriate. /es/ ANGEL ARMSTRONG ...Advanced English As A Second Language Instructor Signed: 02/13/2024 13:43 Receipt Acknowledged By: * AWAITING SIGNATURE * JIMENEZ CHESTER 02/13/2024 14:33 /es/ Aaimr Hazel RN [facility] 02/13/2024 ADDENDUM STATUS: COMPLETED Note from [facility] 03/06 ED encounter: Rosalina Bowers is [...] needs from PACT. /es/ Aamir Hazel RN [facility] Signed: 02/13/2024 14:35 GRIFFIN LEGER [facility]
--- OUTSIDE RECORDS SUMMARY | 2024-04-21 14:20 | XMS_ITS | Encounter Summary ---
Author Name [place] Address [address] [place] [address] Care Team Providers Care Batter Depositor Name Role Phone JIMENEZ CHESTER Primary Care [...] Name Patient's Relationship to Policy Cherry [facility] (WNR) MEDICARE ADVANTAGE [facility] (WNR) May 14, 2020 [id number] [phone] PITER CASAS ERD PATIENT Selected Encounter This [...] 20 appointments. The data comes from all [place] treatment facilities. Appointment Date/Time Appointment Type Appointme nt Facility Name Mar 11, 2024 11:30 AM AMBULATORY - MEDICINE [facility] ([facility]) Mar 18, 2024 07:01 AM [facility] Mar 20, 2024 09:00 AM [facility] Mar 20, 2024 02:30 PM [facility]UL[facility] Apr 07, 2024 10:30 AM AMBULATORY - REHAB [facility] Immunizations: All administered on the encounter date This section contains immunizations associated to the Encounter. Immunization Series Date Issued Reaction Comments COVID-19 (PFIZER), MRNA, LNP -S, PF, NAVYA-SUCROSE, 30 MCG/0.3 ML (AGES 12+ YEARS) Feb 26, 2024 INFLUENZA, ADJUVANTED, TRIVALENT, PF Feb 25 24
--- OUTSIDE RECORDS SUMMARY | 2024-04-21 14:20 | XMS_ITS | Encounter Summary ---
Author Name [place] Address [address] [place] [address] Care Team Providers Care Web Merchandiser Name Role Phone JIMENEZ CHESTER Primary Care [...] Cherry's Name Patient's Relationship to Policy Cherry [facility] (WNR) MEDICARE ADVANTAGE [facility] (WNR) May 14, 2020 [id number] [phone] PITER CASAS ERD PATIENT Selected Encounter This [...] 2024 07:01 AM AMBULATORY - NONE [facility] Mar 20, 2024 09:00 AM AMBULATORY - REHAB MEDICIN E [facility] Mar 20, 2024 02:30 PM AMBULATORY - SURGERY ETHAN CAMPOS [facility] Apr 07, 2024 10:30 AM AMBULATORY - REHAB MEDICME E [facility] Active, Pending, and Scheduled Orders This section includes a listing of several types of active, pending, and scheduled orders, including clinic medications orders, diagnostic test orders, procedure orders and consult orders; where the start date of the order is 45 days before the date of the Encounter or 45 days after the date of theEncounter. The data comes from all [facility]. Test Date/Time Test Type Test Details Facility Name Apr 18, 2024 09:25 AM Consult Order PROSTHETIC S REQUEST Cons Reception's Choice [facility] Encounter Notes: All associated encounter notes This section contains the clinical notes associated to the Encounter. Date/Time Encounter Note(s) Provider Source Mar 12, 2024 09:42 AM NONVA NOTE: LOCAL TITLE: COMMUNITY CARE PRE-AUTH LETTER (AUTOPRINT) STANDARD TITLE: NONVA NOTE DATE OF NOTE: MAR 12, 2024@09:42 ENTRY DATE: MAR 12, 2024@09:42:47 AUTHOR: ROBINSON NAVARRETE COSIGNER: URGENCY: STATUS: COMPLETED Feb JUNG CASAS [address], [place] [address] Dear JUNG CASSA, Your VA provider has referred you to a provider within the community for care. Your medical care for Wound Care has been authorized with the community care provider listed below. DO NOT REPORT TO THE [place] [facility] Provider info: Care has been approved for the following vendor: Office name, address, and phone number: [address] [address] Please contact the identified provider to schedule your community appointment. If you need assistance with this appointment, please call your facility community care office [facility] Office of Community Care at [phone] during the hours of 8:30AM - 3:00PM. Please follow up with your local [facility] community care office once this is scheduled. This step is needed to ensure your referral duration is maximized and the VA has accurate referral information for billing purposes. Authorization Number: [id number] Referral Issue Date: Feb Expiration Date: Aug (subject to change based on first appointment) If you are unable to schedule this appointment or the appointment is no longer needed, please contact the community provider above for notification/rescheduling and then call the [facility] Office of Community Care at [phone] during the hours of 8:30AM - 3:00PM. If you need additional care/services not mentioned above or your authorization has and additional care is needed, please contact your primary care provider for a new referral. To review all care/service(s) approved under your referral, please go to the following link: [employer] Portal([place]) Co-Payments: If you are required to pay a VA co-payment, you will be billed by the VA for each authorized visit that you attend. However, you are NOT REQUIRED to make co-payments to a community provider. Thank you for the opportunity to serve you. Sincerely, [place] [facility] ([facility]) /riccardo/ ROBINSON NAVARRETE MSA Signed: 03/12/2024 09:43 ROBINSON NAVARRETE [facility]
--- OUTSIDE RECORDS SUMMARY | 2024-04-21 14:21 | XMS_ITS | Encounter Summary ---
Author Name [place] Address [address] [place] [address] Care Team Providers Care Molding Associate Name Role Phone JIMENEZ CHESTER Primary [...] [facility] (WNR) MEDICARE ADVANTAGE [facility] (WNR) May 14, 2020 [id number] [phone] PITER CASAS ERD PATIENT Selected Encounter This section includes the information on record at [place] for the Encounter. Date/Time Encounter Type Encounter Description Reason Provider Source Mar 20, 2024 02:30 PM HEARING AID REPAIR/MODIFYIN G AUDIOLOGY ICD-10-CM H90.3 Sensorineural hearing loss, bilateral JOHN MCMULLEN Encounter Template Text not used by [place] Assessments - Encounter Diagnoses This section includes the primary and secondary diagnoses documented for the Encounter. Date/Time Primary/Secondary Diagnosis Diagnosis Name Provider Source Mar 20, 2024 03:29 PM PRIMARY Sensorineural hearing loss, bilateral LUDWIN CORCORAN [facility] Mar 20, 2024 03:29 PM SECONDARY Encounter for fitting and adjustment of hearing aid L[facility]WIN CORCORAN [facility] Plan of Treatment: Future Appointments (+ 6 months) and Future Tests (+/- 45 days) The Plan of Treatment section includes future care activities for the patient from all [place] [facility]. This section includes future appointments and future orders which are active, pending or scheduled. Future Appointments This section includes appointments that were scheduled to occur 6 months from the date of the Encounter, up to a maximum of 20 appointments. The data comes from all [facility]. Appointment Date/Time Appointment Type Appointme nt Facility Name Apr 07, 2024 10:30 AM AMBULATORY - REHAB MEDICIN E [facility] Active, Pending, and Scheduled Orders This section includes a listing of several types of active, pending, and scheduled orders, including clinic medications orders, diagnostic test orders, procedure orders and consult orders; where the start date of the order is 45 days before the date of the Encounter or 45 days after the date of theEncounter. The data comes from all [facility]. Test Date/Time Test Type Test Details Facility Name Apr 18, 2024 09:25 AM Consult Order PROSTHETIC S REQUEST Cons Meteorological Equipment Repairer[facility] Encounter Notes: All associated encounter notes [...] Hearing Aid Service Location of Visit(Room Number):2S-109 [place] was seen for Hearing Aid Service/Repair: 30 minute Appointment Otoscopy: Free of Excessive Cerumen, Normal anatomy bilaterally DIAGNOSIS History: Patient seen for a hearing aid service/hearing aid check Make:RESOUND Model: ONE 61-R FRANKO Serial Number:[id number] Dome/Mold: FRANKO MICRO SILICONE MOLD The following Hearing aid problem(s) were presented Right Hearing Aid:PHOTOGRAPHIC ARTIST TOO SHORT Left Hearing Aid:CLEAN AND CHECK-EARMOLD DEFECTIVE/TORN Action: Hearing Aids were cleaned and checked. A listening check revealed good sound quality: REPLACED WAX GUARDS, REPLACED RIGHT PHOTOGRAPHIC ARTIST -3M ORDERED REPLACEMENT LEFT FRANKO MICRO MOLD-MAIL OUT was counseled using a curriculum on the cleaning,care and use of hearing aids. Plan: Vet will contact call center as needed for follow up Patient is in agreement with this plan. Stockroom Selector:MAIL OUT NEW LEFT EARMOLD TO PATIENT, HE HAS CHANGED OUT RECEIVERS BEFORE /ricacrdo/ MICK CORCORAN AUDIO TECH Signed: 03/20/2024 15:30 /riccardo/ Isidro Combs, LOBO-A Groundwater Programs Director Cosigned: 03/20/2024 16:20 MICK CORCORAN [facility]
--- OUTSIDE RECORDS SUMMARY | 2024-04-21 14:21 | XMS_ITS | Encounter Summary ---
Author Name [place] Organization [place] Address [address] [place] [address] Care Team Providers Care Wastewater Manager Name Role Phone JIMENEZ CHESTER Primary [...] Cherry's Name Patient's Relationship to Policy Cherry [facility] (WNR) MEDICARE ADVANTAGE [facility] (WNR) May 14, 2020 [id number] [phone] PITER CASAS ERD PATIENT Selected Encounter This section includes the information on record at [place] for the Encounter. Date/Time Encounter Type Encounter Description Reason Provider Source Mar 20, 2024 03:24 PM CASE MANAGEMENT PRIMARY CARE/MEDICINE ICD-10-CM Z65.8 Oth problems related to psychosocial circumstances CLAUDIA HORTON [place] Encounter Template Text not used by [place] Assessments - Encounter Diagnoses This section includes the primary and secondary diagnoses documented for the Encounter. Date/Time Primary/Secondary Diagnosis Diagnosis Name Provider Source Apr 01, 2024 03:13 PM PRIMARY Oth problems related to psychosocial circumstances CLAUDIA HORTON [facility] Plan of Treatment: Future Appointments (+ 6 months) and Future Tests (+/- 45 days) The Plan of Treatment section includes future care activities for the patient from all [place] [facility]. This section includes future appointments and future orders which are active, pending or scheduled. Future Appointments This section includes appointments that were scheduled to occur 6 months from the date of the Encounter, up to a maximum of 20 appointments. The data comes from all [facility]. Appointment Date/Time Appointment Type Appointme nt Facility Name Apr 07, 2024 10:30 AM AMBULATORY - REHAB MEDICIN E [facility] Active, Pending, and Scheduled Orders This section includes a listing of several types of active, pending, and scheduled orders, including clinic medications orders, diagnostic test orders, procedure orders and consult orders; where the start date of the order is 45 days before the date of the Encounter or 45 days after the date of theEncounter. The data comes from all [facility]. Test Date/Time Test Type Test Details Facility Name Apr 18, 2024 09:25 AM Consult Order PROSTHETIC S REQUEST Cons Manager Shipping[facility] Encounter Notes: All associated encounter notes This section contains the clinical notes associated to the Encounter. Date/Time Encounter Note(s) Provider Source Mar 20, 2024 03:24 PM SOCIAL WORK RISK A SSESSMENT SCREENING NOTE: LOCAL TITLE: SOCIAL WORK TRIAGE ASSESSMENT STANDARD TITLE: SOCIAL WORK RISK ASSESSMENT SCREENING NOTE DATE OF NOTE: MAR 20, 2024@15:24 ENTRY DATE: MAR 20, 2024@15:24:47 AUTHOR: CLAUDIA HORTON EXP COSIGNER: URGENCY: STATUS: COMPLETED SOCIAL WORK TRIAGE ASSESSMENT Has ADDENDA 03/20/2024 voicemail Jung Amin [phone] Sent up from Benefits to ask about caregiver benefits. Wondering if she can get paid for caregiving. Goes to [place] but wants to meet with someone in-person [...] of Comprehensive Assistance for Family Caregivers (PCAFC) ID Respite Care MAR/APR caregiver corner /riccardo/ CLAUDIA LEUNG, [facility] Wound Care Technician Signed: 03/20/2024 15:34 Receipt Acknowledged By: 03/28/2024 15:43 /riccardo/ XOCHITL Nayak [facility] Primary Care Social Work 03/28/2024 ADDENDUM STATUS: COMPLETED The above note has been reviewed and approved as part of clinical supervision by this technical writer. [place] was seen today for: Care planning, resources, case management Diagnosis: Z65.9 Problems related to unspecified Psychosocial Circumstances /riccardo/ XOCHITL Nayak, GARBAGE PICK UP WORKER Primary Care Social Work Signed: 03/28/2024 15:44 CLAUDIA HORTON [facility]
--- OUTSIDE RECORDS SUMMARY | 2024-04-21 14:22 | XMS_ITS | Clinical Summary ---
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 Test 3 times daily 1 Device 07/09/19 21 Active Insulin [place], Disposable, (Novofine 32) 32 gauge x 1/4Indications: 250.00 Diabetes Type 2, insulin dependent For administering insulin at home 4 times daily or as needed 400 Each 3 06/23/19 22 Active ketoconazole 2% topical (NIZORAL) cream Apply topically to affected area(s) once daily if needed. APPLY TO AFFECTED AREA BETWEEN EYEBROWS 1-2X DAILY FOR 2 WEEKS AT A TIME NEEDED FOR FLARES 02/23/20 21 Active artificial tears, peg 400-propylene glycol, (Systane) 0.4-0.3 % ophthalmic dropperetteIndic ations:Dry eyes Place 2 Drops into both eyes once daily if needed for Dry Eyes. 0 01/09/20 23 Active triamcinolone (ARISTOCORT; KENALOG) 0.1 % creamIndications :Rash Apply topically to affected area(s) two times daily. APPLY to affected areas 2X DAILY FOR 2 WEEKS AT A TIME NEEDED FOR FLARES 60 g 4 01/09/20 23 Active atorvastatin (LIPITOR) 40 mg tabletIndication s:Hyperlipidemia LDL goal <70 Take one tab daily at bedtime. 90 Tablet 3 02/07/20 23 Active acetaminophen (TYLENOL) 325 mg tabletIndication s:Pain Take 2 Tablets (650 mg) by mouth every 4 hours if needed for Pain. Max acetaminophen dose: 4000mg in 24 hrs. 0 04/09/20 23 Active polyethylene glycol (MIRALAX; GLYCOLAX) 17 g per packet packetIndication s:Constipation, unspecified constipation type Mix 17 g in liquid then take by mouth once daily. 0 04/10/20 23 Active sennosides 17.2 mg tabIndications:C onstipation, unspecified constipation type Take 17.2 mg by mouth two times daily. 0 04/09/20 23 Active mirtazapine (REMERON) 7.5 mg as half [...] by mouth before breakfast. 90 Tablet 3 07/17/19 24 Active blood sugar diagnostic (Contour Next Test Strips) stripIndications :Type 2 diabetes mellitus with complication (HC) Dispense item covered by pt ins. E10.9 IDDM type I - Test 4 times/day. Reason: complicated diabetes. 400 Each 3 07/17/19 24 Active Farxiga 10 mg tabletIndication s:HFrEF (heart failure with reduced ejection fraction) (HC) Take 1 Tablet (10 mg) by mouth once daily. 90 Tablet 3 10/03/19 24 Active clotrimazole (LOTRIMIN) 1 % creamIndications :Balanitis Apply topically to affected area(s) two times daily. Use for 3 weeks. 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 Change each sensor every 10 days 9 Each 10/30/19 24 Active metoprolol succinate (Toprol XL) 25 mg Sustained-Releas e tabletIndication s:HFrEF (heart failure with reduced ejection fraction) (HC) Take 0.5 Tablets (12.5 mg) by mouth once daily in the evening. 45 Tablet 3 11/06/19 24 Active clopidogreL (PLAVIX) 75 mg tabletIndication s:NSTEMI (non-ST elevated myocardial infarction) (HC) TAKE 1 TABLET(75 MG) BY MOUTH EVERY MORNING 90 Tablet 3 11/06/19 24 Active apixaban (Eliquis) 5 mg tabletIndication s:Paroxysmal atrial fibrillation (HC) TAKE 1 TABLET(5 MG) BY MOUTH TWICE DAILY 180 Tablet 3 11/06/19 24 Active nitroglycerin (NITROSTAT) 0.4 mg sublingual tabletIndication s:Coronary artery disease involving [place] heart without angina pectoris, unspecified vessel or lesion type Place 1 Tablet (0.4 mg) under the tongue every 5 minutes if needed for Chest Pain. Up to 3 tablets in 15 minutes. 50 Tablet 1 11/06/19 24 Active pregabalin (LYRICA) 50 mg capsuleIndicatio ns:Phantom limb pain (HC) Take 1 Capsule (50 mg) by mouth three times daily. 90 Capsule 3 01/01/20 24 Active sacubitril-valsa rtan (ENTRESTO 24 MG-26 MG TABLET) 24-26 mg tabletIndication s:HFrEF (heart failure with reduced ejection fraction) (HC) Take 0.5 Tablets by mouth two times daily. 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 30 mL 3 03/18/20 24 Active pantoprazole (PROTONIX) 40 mg delayed-release tabletIndication s:Gastroesophage al reflux disease, unspecified whether esophagitis present TAKE 1 TABLET(40 MG) BY MOUTH EVERY DAY 90 Tablet 1 04/12/20 24 Active pantoprazole (PROTONIX) 40 mg delayed-release tabletIndication s:Gastroesophage al reflux disease, unspecified whether esophagitis present Take 1 Tablet (40 mg) by mouth once daily. 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 11/25/2019 HTN (hypertension) 10/28/2015 Hyperlipidemia LDL goal <70 10/28/2015 Adenomatous colon polyp 04/13/2015 Overview (03/16/2020): Colonoscopy 04/2015 polyps repeat in 5 years Colonoscopy 03/2020 polyps, repeat in 5 years Background diabetic retinopathy(362.01) 07/10/19 08 Unspecified hearing loss 07/10/2007 Coronary atherosclerosis of unspecified type of vessel, [place] or graft Overview (11/08/2011): 4 vessel CABG 2001 Lexiscan only for cardiac evaluation - no treadmill Other ill-defined and unknow n causes of morbidity and mortality Impotence of organic origin Resolved Problems Problem Noted Date Diagnosed Date Resolved Date Type 2 diabetes mellitus with complication 11/16/2017 12/22/2022 Heart disease, unspecified 0 07/10/2007 Encounters Date Type Department Care Team Description 04/18/2024 3:00 PM LITIGATION EXAMINER Home Care Visit [facility] [address] [facility] [id number] Lidia Mccoy, SIS SN - HOME VISIT 04/18/2024 Home Care Visit [facility] [address] [facility] [phone] Rafi Tolbert RN SN - WOUND/OSTOMY CHART CONSULT 04/18/2024 Telephone [facility] [address] [place] [address] Melquiades Man MD Questions (Following home care visit 04/18) 04/16/2024 1:30 PM LITIGATION EXAMINER Home Care Visit [facility] [address] [place] [address] Lidia Mccoy RN SN - HOME VISIT 04/16/2024 Plan of Care Documentation [facility] [address] [place] [address] 04/15/2024 11:00 AM LITIGATION EXAMINER Ancillary Procedure [facility] [address] [place] [address] 04/15/2024 Travel 04/11/2024 12:00 PM LITIGATION EXAMINER Home Care Visit [facility] [address] [place] [address] Lidia Mccoy RN SN - HOME VISIT 04/09/2024 Refill [facility] [address] [place] [address] Melquiades Man MD Refill Request (Pantoprazole) 04/04/2024 Telephone [facility] [address] [place] [address] Lidia Mccoy RN Home Care (Patient was admitted to Home Care ) 04/03/2024 Telephone [facility] [address] [place] [address] Melquiades Man MD Medication Management (The following severe interactions and/or contraindicated drug combinations were noted today:/1. apixaban and clopidogreL/Concurren t use of apixaban with antiplatelets may increase the risk of bleeding.(1-4)//Provi meron: Please advise if any changes are indicated. ) 04/02/2024 10:30 AM LITIGATION EXAMINER Home Care Visit [facility] [address] [place] [address] Lidia Mccoy, SIS SN - OASIS START OF CARE 03/31/2024 Transcribe Orders [facility] [address] [place] [phone] Brenda Hart NP 03/14/2024 Telephone [facility] [address] [place] [address] Shade Manuel MD Follow Up 03/13/2024 11:00 AM CDT Patient Outreach [facility] [address] [place] [address] Priyanka Hummel RN Diabetes (Follow-up) 03/13/2024 Travel 03/12/2024 Refill [facility] [address] [place] [address] Melquiades Man MD Refill Request (Basaglar Kwikpen U-100 Insulin) 02/22/2024 1:40 PM CDT Orders Only [facility] [address] [place] [address] Sherita Adamson Lab 02/22/2024 Travel 02/17/2024 Travel 02/12/2024 Telephone [facility] [address] [facility] [address] [place] [address] Shade Manuel MD Follow Up 02/10/2024 8:12 AM CDT - 02/10/2024 12:50 PM CDT Emergency [facility] [address] [place] [address] Shira Morley MD Del Castillo, Isabelle Jennifer Rose Farro, MD Altered mental status, unspecified altered mental status type (Primary Dx); Lethargy; ALEX (acute kidney injury) (HC); Dehydration Discharge Disposition: Home Self Care 02/10/2024 Travel 02/07/2024 11:00 AM CDT Patient Outreach [facility] [address] [place] [address] Priyanka Hummel RN Diabetes (F/u insulin management) 02/07/2024 Travel 02/04/2024 Orders Only [facility] Scanner 1 scan: (1-Ord) [facility], CERVICAL SPINE WO, 02/04/2024 02/04/2024 Orders Only [facility] Scanner 1 scan: (1-Ord) [place], CT HEAD/BRAIN WO CON, 02/04/2024 02/04/2024 Nurse Triage [facility] [address] [place] [address] Votel, Melquiades Gray MD Neck Pain/problem from Last 3 Months Immunizations Name Administration [...] Brother kidney problems Heart Disease Father 1st MD at 65 d 77 yo CHF Diabetes Mother Heart Disease Mother d 64 yo MD Genetic Other There is a posi tive [...] at Not on file Legal Sex Male 6:26 AM LITIGATION EXAMINER Gender Identity Not on file Sexual Orientation Not on file Occupation Industry Job Start Date Job End Date retired Not on file Not on file Not on file Obstetrics History Last Filed Vital Signs Vital Sign Reading Time Taken Comments Blood Pressure 90/46 04/18/2024 4:00 PM LITIGATION EXAMINER Pulse 65 04/18/2024 4:00 PM LITIGATION EXAMINER Temperature 37.1 C (98.7 F) 04/18/2024 4:00 PM LITIGATION EXAMINER Respiratory Rate 18 04/18/2024 4:00 PM LITIGATION EXAMINER Oxygen Saturation 93% 04/18/2024 4:00 PM LITIGATION EXAMINER Inhaled Oxygen Concentration - - Weight 86.2 kg (190 lb) 04/02/2024 1:52 PM LITIGATION EXAMINER Height 175.3 cm (5' 9) 02/10/2024 8:20 AM CDT Body Mass Index 28.06 02/10/2024 8:20 AM CDT Plan of Treatment Upcoming Encounters Date Type Department Care Team (Late st Contact Info) Description 04/23/2024 4:00 AM LITIGATION EXAMINER Home Care Visit [place] [id number] [place] [phone] Lidia Mccoy, RN 04/25/2024 4:00 AM LITIGATION EXAMINER Home Care Visit [facility] [address] [place] [address], [place] [address] Lidia Mccoy, RN 04/30/2024 4:00 AM LITIGATION EXAMINER Home Care Visit [place] [id number] [place] [address], [place] [address] Lidia Mccoy, RN 05/02/2024 4:00 AM LITIGATION EXAMINER Home Care Visit [place] [address] [place] [address], [place] [address] Lidia Mccoy, RN 2024 4:00 AM LITIGATION EXAMINER Home Care Visit [facility] [address] [place] [address], [place] [address] Lidia Mccoy, RN 05/09/2024 4:00 AM LITIGATION EXAMINER Home Care Visit [facility] [address] [place] [address], [place] [address] Lidia Mccoy, RN 05/14/2024 4:00 AM LITIGATION EXAMINER Home Care Visit [place] [address] [place] [phone] Lidia Mccoy, SIS 05/15/2024 11:10 AM LITIGATION EXAMINER Orders Only [facility] [address] [place] [address] Lab, Sherita 05/16/2024 4:00 AM LITIGATION EXAMINER Home Care Visit [facility] [address] [place] [address] Lidia Mccoy, SIS 05/21/2024 4:00 AM LITIGATION EXAMINER Home Care Visit [facility] [address] [facility] [address] Lidia Mccoy, SIS 05/22/2024 10:30 AM LITIGATION EXAMINER Office Visit [facility] [address] [place] [address] [address] [facility] [place] [address] Shade Manuel MD [address] [facility] [address] [place] [address] 05/23/2024 4:00 AM LITIGATION EXAMINER Home Care Visit [facility] [address] [facility] [address] Lidia Mccyo, SIS 05/28/2024 4:00 AM LITIGATION EXAMINER Home Care Visit [facility] [address] [place] [address] [place] [address] Lidia Mccoy, SIS 05/30/2024 4:00 AM LITIGATION EXAMINER Home Care Visit [facility] [address] [place] [phone] Lidia Mccoy, RN Health Maintenance Due Date [...] Procedure Name Priority Date/Time Associated Diagnosis Comments ECHO TTE COMPLETE WO CONTRAST Routine 04/15/2024 11:59 AM LITIGATION EXAMINER HFrEF (heart failure with reduced ejection fraction) (HC) BASIC METABOLIC PANEL Routine 03/13/2024 11:23 AM [...] 8:41 AM CDT HEPATIC FUNCTION PANEL STAT 4 8:41 AM CDT BASIC METABOLIC PANEL STAT 02/10/2024 8:41 AM CDT CBC WITH AUTO DIFFERENTIAL STAT 02/10/2024 8:41 AM CDT SCAN-CT INTERPRETATION 12:00 AM CDT SCAN-CT INTERPRETATION 4 12:00 AM CDT from Last 3 Months Results * ECHO TTE COMPLETE WO CONTRAST (04/15/2024 11:59 AM LITIGATION EXAMINER) AORTIC VALVE MEAN PG 3 mmHg EJECTION FRACTION 40 % PEAK TR VELOCITY 2.5 m/s LVEDD 5.3 cm EJECTION FRACTION 25 - 30% Anatomical Region Laterality Modality Ultrasound 04/15/2024 10:5 4 AM LITIGATION EXAMINER Narrative 04/15/2024 1:17 PM LITIGATION EXAMINER ECHOCARDIOGRAM ROSALINA CASAS : 1940 83 years Study Date: 04/15/2024 10:54:59 AM Gender: M BP: 91/43 mmHg Height: 175.26 cm BSA: 2.02 m Weight: 86.18 kg Tech: DIPIKAP Referring MD: SHADE MANUEL Site: [facility] Reading Location: MOBILE - OP Patient Location: Procedure: 2D, Color Doppler and Spectral Doppler. Indication for study: HFrEF Cardiac Rhythm: Atrial fibrillation.Study quality: Fair. Final Impressions: 1. Normal LV size, normal wall thickness, moderately severely reduced global systolic function with an estimated EF of 25 - 30%. 2. There is moderate-severe global left ventricular hypokinesis. 3. Right ventricular cavity size is normal, global systolic RV function is mildly reduced. 4. Mild biatrial enlargement 5. The mitral valve is sclerotic, trace mitral regurgitation. 6. Mild-moderate tricuspid regurgitation with normal estimated right sided cardiac pressures. 7. Compared to the prior study of 03/30/2023, the left and right ventricular systolic function has improved and the estimated right sided pressures are now normal. Chamber Sizes and Function Normal left ventricular size, normal wall thickness, moderately severely reduced global systolic function with an estimated EF of 25 - 30%. There is moderate global left ventricular hypokinesis. Global hypokinesis with basal to mid inferoseptal and inferior severe hypokinesis. Left atrial size is mildly enlarged. Left atrial pressure is normal. Right ventricular cavity size is normal, global systolic RV function is mildly reduced. RV wall thickness is normal. The right atrium is mildly enlarged. The pulmonary artery is of normal size and origin. The sinus of Valsalva is normal sized. The ascending aorta is normal sized. Valves, RV Pressures and Diastolic Function The aortic valve is normal in structure and trileaflet, no stenosis and no regurgitation. The mitral valve is sclerotic, trace mitral regurgitation. Indeterminate pattern of LV diastolic filling. The tricuspid valve is normal in structure. Tricuspid regurgitation is mild-moderate. The tricuspid regurgitant velocity is 2.5 m/s, the estimated right ventricular systolic pressure is 25 mmHg plus right atrial pressure. There is normal estimated pulmonary pressure by tricuspid regurgitation velocity and right atrial pressure. The pulmonic valve is normal. Mild pulmonary regurgitation. Masses, Effusion, Shunts There is no pericardial effusion. The inferior vena cava is normal sized, respiratory size variation greater than 50%. No left to right shunting was detected by limited color flow Doppler interrogation of the interatrial septum. MEASUREMENTS AND CALCULATIONS 2-D Measurements and LV Function: LVID (d) 5.3 cm LV FS% (2D) 23 % LVID (s) 4.1 cm LVOT diameter 2.4 cm IVS (d) 0.8 cm HR 77 bpm LVPW (d) 1.1 cm LA Vol index 33 ml/m2 Ao Sinus 3.8 cm Asc Ao 3.7 cm Diastology: Mitral Tissue Doppler E Peak 1.1 m/s e', Septum 0.07 m/s DT 157 msec e', Lateral 0.11 m/s E/e' Average 12.48 Aortic Valve: Vmax 1.1 m/s ANGÉLICA (V) 3.58 cm VTI 0.26 m ANGÉLICA (I) 3.33 cm LVOT V max 0.8 m/s Max PG 4 mmHg LVOT VTI 0.19 m Mean PG 3 mmHg SV 86 ml Dim Index 0.74 SV index 43 ml/m CO 6.6 l/min CI 3.3 l/min/m Mitral Valve: MVA 4.8 cm MV P 1/2 46 msec Tricuspid Valve and estimated PA pressures: TR Vmax 2.5 m/s TAPSE 1.5 cm TR maxG 25 mmHg . This study was interpreted by an [facility] accredited facility. Final Procedure Note Rafi Beck MD - 04/15/2024 ECHOCARDIOGRAM ROSALINA CASAS : 1940 83 years Study Date: 04/15/2024 10:54:59 AM Gender: M BP: 91/43 mmHg Height: 175.26 cm BSA: 2.02 m Weight: 86.18 kg Tech: RAMIN Referring MD: SHADE MANUEL Site: [facility] Reading Location: MOBILE - OP Patient Location: Procedure: 2D, Color Doppler and Spectral Doppler. Indication for study: HFrEF Cardiac Rhythm: Atrial fibrillation.Study quality: Fair. Final Impressions: 1. Normal LV size, normal wall thickness, moderately severely reducedglobal systolic function with an estimated EF of 25 - 30%. 2. There is moderate-severe global left ventricular hypokinesis. 3. Right ventricular cavity size is normal, global systolic RV functionis mildly reduced. 4. Mild biatrial enlargement 5. The mitral valve is sclerotic, trace mitral regurgitation. 6. Mild-moderate tricuspid regurgitation with normal estimated rightsided cardiac pressures. 7. Compared to the prior study of 03/30/2023, the left and rightventricular systolic function has improved and the estimated right sidedpressures are now normal. Chamber Sizes and Function Normal left ventricular size, normal wall thickness, moderately severelyreduced global systolic function with an estimated EF of 25 - 30%. Thereis moderate global left ventricular hypokinesis. Global hypokinesis withbasal to mid inferoseptal and inferior severe hypokinesis. Left atrialsize is mildly enlarged. Left atrial pressure is normal. Right ventricularcavity size is normal, global systolic RV function is mildly reduced. RVwall thickness is normal. The right atrium is mildly enlarged. Thepulmonary artery is of normal size and origin. The sinus of Valsalva isnormal sized. The ascending aorta is normal sized. Valves, RV Pressures and Diastolic Function The aortic valve is normal in structure and trileaflet, no stenosis and noregurgitation. The mitral valve is sclerotic, trace mitral regurgitation.Indeterminate pattern of LV diastolic filling. The tricuspid valve isnormal in structure. Tricuspid regurgitation is mild-moderate. Thetricuspid regurgitant velocity is 2.5 m/s, the estimated right ventricularsystolic pressure is 25 mmHg plus right atrial pressure. There is normalestimated pulmonary pressure by tricuspid regurgitation velocity and rightatrial pressure. The pulmonic valve is normal. Mild pulmonaryregurgitation. Masses, Effusion, Shunts There is no pericardial effusion. The inferior vena cava is normal sized,respiratory size variation greater than 50%. No left to right shunting wasdetected by limited color flow Doppler interrogation of the interatrialseptum. MEASUREMENTS AND CALCULATIONS 2-D Measurements and LV Function: LVID (d) 5.3 cm LV FS% (2D) 23 % LVID (s) 4.1 cm LVOT diameter 2.4 cm IVS (d) 0.8 cm HR 77 bpm LVPW (d) 1.1 cm LA Vol index 33 ml/m2 Ao Sinus 3.8 cm Asc Ao 3.7 cm Diastology: Mitral Tissue Doppler E Peak 1.1 m/s e', Septum 0.07 m/s DT 157 msec e', Lateral 0.11 m/s E/e' Average 12.48 Aortic Valve: Vmax 1.1 m/s ANGÉLICA (V) 3.58 cm VTI 0.26 m ANGÉLICA (I) 3.33 cm LVOT V max 0.8 m/s Max PG 4 mmHg LVOT VTI 0.19 m Mean PG 3 mmHg SV 86 ml Dim Index 0.74 SV index 43 ml/m CO 6.6 l/min CI 3.3 l/min/m Mitral Valve: MVA 4.8 cm MV P 1/2 46 msec Tricuspid Valve and estimated PA pressures: TR Vmax 2.5 m/s TAPSE 1.5 cm TR maxG 25 mmHg . This study was interpreted by an [facility] accredited facility. Final Shade Manuel MD ECHO ORD Final R esult * (ABNORMAL) BASIC METABOLIC PANEL (03/13/2024 11:23 AM CDT) Only the most recent of3 resultswithin the time period is included. Pathologist [facility] GLUCOSE 115 65 - 139 mg/dL [facility] Comment: Non-fasting reference interval UREA NITROGEN (BUN) 38(H) 7 - 25 mg/dL [facility] CREATININE 1.85(H) 0.70 - 1.22 mg/dL [facility] EGFR 36(L) > OR = 60 mL/min/1.7 3m2 [facility] BUN/CREATININE RATIO 21 6 [...] [facility] CALCIUM 8.8 8.6 - 10.3 mg/dL [facility] Blood BLOOD SPECIMEN / Unknown 03/13/2024 11:23 AM CDT 03/13/2024 11:24 AM CDT Narrative [facility] - 03/14/2024 3:00 AM CDT FASTING:NO FASTING: NO Shade Manuel MD CHEMISTRY Final R esult [facility] [address] [place] [address], [employer] [address] [place] [address] * URINALYSIS MICROSCOPIC (02/10/2024 10:19 AM CDT) RBC None Seen 0-2, None Seen /HPF 02/10/2024 10:45 AM CDT [facility] WBC None Seen 0-2, 3-5, None Seen /HPF 02/10/2024 10:45 AM CDT [facility] BACTERIA None Seen None Seen, Rare, Few Bacteria/ HPF 02/10/2024 10:45 AM CDT [facility] EPITHELIAL CELLS Few None Seen, Few Epi/HPF 02/10/2024 10:45 AM CDT [facility] Urine URINE SPECIMEN / Unknown Non-Blood / Unknown 02/10/2024 10:19 AM CDT 02/10/2024 10:23 AM CDT Shira Morley MD URINE Final Result [facility] [address] [place] [id number] * URINE CULTURE (02/10/2024 10:19 AM CDT) CULTURE 10-50,000 CFU/mL of multiple organisms, probable contaminants 02/11/2024 10:36 AM CDT [facility] Urine URINE SPECIMEN / Unknown Non-Blood / Unknown 02/10/2024 10:19 AM CDT 02/10/2024 10:23 AM CDT Shira Morley MD MICROBIOLOGY Final Result [facility] [address] [place] [address], [place] * (ABNORMAL) UA W/ SEDIMENT EXAM REFLEXED PER CRITERIA (02/10/2024 10:19 AM CDT) COLOR Yellow Yellow Color 02/10/2024 10:28 AM CDT [facility] CLARITY Clear Clear Clarity 02/10/2024 10:28 AM [facility] SPECIFIC GRAVITY,URINE 1.015 1.010, 1.015, 1.020, 1.025 02/10/2024 10:28 AM [facility] PH,URINE 5.5 6.0, 7.0, 8.0, 5.5, 6.5, 7.5, 8.5 02/10/2024 10:28 AM [facility] UROBILINOGEN, QUALITATIVE Normal Normal EU/dl 02/10/2024 10:28 AM [facility] PROTEIN, URINE Negative Negative mg/dL 02/10/2024 10:28 AM [facility] GLUCOSE, URINE >=1000(A) Negative mg/dL 02/10/2024 10:28 AM [facility] KETONES,URINE Negative Negative mg/dL 02/10/2024 10:28 AM [facility] BILIRUBIN,URI NE Negative Negative 02/10/2024 10:28 AM [facility] OCCULT BLOOD,URINE Negative Negative 02/10/2024 10:28 AM [facility] NITRITE Negative Negative 02/10/2024 10:28 AM [facility] LEUKOCYTE ESTERASE Negative Negative 02/10/2024 10:28 AM [facility] Urine URINE SPECIMEN / Unknown Non-Blood / Unknown 02/10/2024 10:19 AM CDT 02/10/2024 10:23 AM T us Shira Morley MD URINE Final Result [facility] [address] [place] [address] * CT HEAD BRAIN WO (02/10/2024 9:00 [...] AM (Electronically Signed) Shira Morley MD CT Final Result * (ABNORMAL) CBC WITH AUTO DIFFERENTIAL (02/10/2024 8:41 AM CDT) WHITE BLOOD COUNT 7.6 4.5 - 11.0 thou/cu mm 02/10/2024 8:58 AM [facility] RED BLOOD COUNT 3.47(L) 4.30 - 5.90 mil/cu mm 02/10/2024 8:58 AM [facility] HEMOGLOBIN 10.2(L) 13.5 - 17.5 g/dL 02/10/2024 8:58 AM [facility] HEMATOCRIT 32.8(L) 37.0 - 53.0 % 02/10/2024 8:58 AM [facility] MCV 95 80 - 100 fL 02/10/2024 8:58 AM [facility] MCH 29.4 26.0 - 34.0 pg 02/10/2024 8:58 AM [facility] MCHC 31.1(L) 32.0 - 36.0 g/dL 02/10/2024 8:58 AM [facility] RDW 14.9 11.5 - 15.5 % 02/10/2024 8:58 AM [facility] PLATELET COUNT 271 140 - 440 thou/cu mm 02/10/2024 8:58 AM [facility] MPV 10.1 6.5 - 11.0 fL 02/10/2024 8:58 AM [facility] % NEUT 70.9 % 02/10/2024 8:58 AM [facility] % LYMPH 14.1 % 02/10/2024 8:58 AM [facility] % MONO 8.8 % 02/10/2024 8:58 AM [facility] % EOS 5.9 % 02/10/2024 8:58 AM [facility] % BASO 0.3 % 02/10/2024 8:58 AM [facility] ABSOLUTE NEUTROPHILS 5.4 1.7 - 7.0 thou/cu mm 02/10/2024 8:58 AM [facility] ABSOLUTE LYMPHOCYTES 1.1 0.9 - 2.9 thou/cu mm 02/10/2024 8:58 AM [facility] ABSOLUTE MONOCYTES 0.7 <0.9 thou/cu mm 02/10/2024 8:58 AM [facility] ABSOLUTE EOSINOPHILS 0.5(H) <0.5 thou/cu mm 02/10/2024 8:58 AM [facility] ABSOLUTE BASOPHILS 0.0 <0.3 thou/cu mm 02/10/2024 8:58 AM [facility] Blood BLOOD SPECIMEN / Unknown Butterfly / Unknown 02/10/2024 8:41 AM [facility] 02/10/2024 8:45 AM [facility] us Shira Morley MD HEMATOLOGY Final Result [facility] [address] [place] [address] * LACTATE VENOUS (02/10/2024 8:41 AM CDT) Pathologist [facility] LACTATE,VENOUS 1.6 0.5 - 2.0 mmol/L 02/10/2024 9:07 AM CDT [facility] Blood BLOOD SPECIMEN / Unknown Butterfly / Unknown 02/10/2024 8:41 AM CDT 02/10/2024 8:45 AM CDT Shira Morley MD CHEMISTRY Final Result Performing Organization Address [facility] Co de Phone Number [facility] [address] [place] [address] * TSH (02/10/2024 8:41 AM CDT) [facility] TSH 2.91 0.27 - 4.20 uIU/mL 02/10/2024 9:16 AM CDT [facility] Blood BLOOD SPECIMEN / Unknown Butterfly / Unknown 02/10/2024 8:41 AM CDT 02/10/2024 8:45 AM CDT Narrative [facility] - 02/10/2024 9:16 AM CDT In Adults, TSH values between 5.00 and 10.00 uIU/ml do not necessarily indicate the presence of Hypothyroidism. Correlation with clinical findings such as presence of goiter and/or Thyroperoxidase (TPO) Antibody may be helpful. For more information please refer to RONNIE 2004; 291: 228-238. Shira Morley MD CHEMISTRY Final Result Performing Organization Address [facility] Co de Phone Number [facility] [address] [place] [address] * AMMONIA (02/10/2024 8:41 AM CDT) Pathologist [facility] AMMONIA 14 11 - 51 umol/L 02/10/2024 9:07 AM CDT [facility] Blood BLOOD SPECIMEN / Unknown Butterfly / Unknown 02/10/2024 8:41 AM CDT 02/10/2024 8:45 AM CDT Narrative [facility] - 02/10/2024 9:07 AM CDT 1. Sulfasalazine and its metabolite Sulfapyridine at therapeutic concentrations may lead to falsely low results. 2. Temozolomide and its metabolite MTIC may lead to falsely elevated results, and its metabolite AIC may lead to falsely low results. Shira Morley MD CHEMISTRY Final Result [facility] [address] [place] [address] * (ABNORMAL) HEPATIC FUNCTION PANEL (02/10/2024 8:41 AM CDT) ALBUMIN 3.6(L) 4.0 - 4.9 g/dL 02/10/2024 9:16 AM T [facility] PROTEIN,TOTAL 7.5 6.0 - 8.0 g/dL 02/10/2024 9:16 AM [facility] BILIRUBIN,TOTAL 0.3 0.0 - 1.2 mg/dL 02/10/2024 9:16 AM [facility] BILIRUBIN,DIRECT 0.1 0.0 - 0.2 mg/dL 02/10/2024 9:16 AM [facility] BILIRUBIN,INDIRE CT 02/10/2024 9:16 AM [facility] Comment:Unable to calculate, Direct Bili <0.2 ALK PHOSPHATASE 95 40 - 129 IU/L 02/10/2024 9:16 AM [facility] ALT (SGPT) 13 10 - 50 IU/L 02/10/2024 9:16 AM [facility] AST (SGOT) 19 10 - 50 IU/L 02/10/2024 9:16 AM [facility] Blood BLOOD SPECIMEN / Unknown Butterfly / Unknown 02/10/2024 8:41 AM CDT 02/10/2024 8:45 AM CDT Shira Morley MD CHEMISTRY Final Result [facility] [address] [place] [address] * SCAN-CT INTERPRETATION (02/04/2024 12:00 AM CDT) Only the most recent of2 resultswithin the time period is included. 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, receiving hemodialysis, has chronic open wounds/skin damage, has long-term percutaneous indwelling medical devices Exclusions for nares collection (if <12 months since positive culture) include all of the previous exclusions plus patients on antibiotics 7 days prior to collection 03/08/2023 05/31/2023 ESBL 04/26/2023 04/26/2023 Insurance MEDICARE PART B HB ONLY [place] BLUE MR PB ONLY [facility] MEDICARE PART A HB ONLY [place] BLUE HB ONLY MEDICARE PPS BLUE [place] BLUE HB ONLY Advance Directives Documents on File Type Date Recorded 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
--- OUTSIDE RECORDS SUMMARY | 2024-04-21 14:22 | XMS_ITS | Encounter Summary ---
Author Name [facility] [facility] [place] [facility] [place] Address [address] [place] [address] Care Team Providers Care Compensation And Benefits Administrator Name Role Phone JIMENEZ CHESTER Primary Care [...] [facility] MEDIC[facility] ADVANTAGE [facility] (WNR) May 14, 2020 [id number] [phone] PITER CASAS ERD PATIENT Selected Encounter This section includes the information on record at [place] for the Encounter. Date/Time Encounter Type Encounter Description Reason Pro vider Source Mar 18, 2024 12:00 PM Outpatient Encounter ADMIN PAT ACTIVTIES (MASNONCT) IHE Encounter Template Text not used by [place] Plan of Treatment: Future Appointments (+ 6 [...] 20 appointments. The data comes from all [facility]. Appointment Date/Time Appointment Type Appointme nt Facility Name Mar 20, 2024 09:00 AM [facility]ATORY - [facility] Mar 20, 2024 02:30 PM [facility] Apr 07, 2024 10:30 AM [facility]BULATORY - REHAB [facility] Active, Pending, and Scheduled Orders This section includes a listing of several types of active, pending, and scheduled orders, including clinic medications orders, diagnostic test orders, procedure orders and consult orders; where the start date of the order is 45 days before the date of the Encounter or 45 days after the date of theEncounter. The data comes from all [facility]. Test Date/Time Test Type Test Details Facility Name Apr 18, 2024 09:25 AM Consult Order PROSTHETIC S REQUEST Cons [facility] Encounter Notes: All associated encounter notes This section contains the clinical notes associated to the Encounter. Date/Time Encounter Note(s) Provider Source Mar 18, 2024 12:00 PM NONVA CONSULT: LOCAL TITLE: COMMUNITY CARE CONSULT RESULT WOUND CARE [place] STANDARD TITLE: NONVA CONSULT DATE OF NOTE: MAR 18, 2024@12:00 ENTRY DATE: APR 01, 2024@14:38:04 AUTHOR: PRAFUL PALACIOS EXP COSIGNER: URGENCY: STATUS: COMPLETED VistA Imaging - Scanned Document SCANNED DOCUMENT SIGNATURE NOT REQUIRED Electronically Filed: 04/01/2024 by: FERNANDEZ [facility] INFORMATION SOFT MUD MOLDER PRAFUL PALACIOS [facility]
--- OUTSIDE RECORDS SUMMARY | 2024-04-21 14:22 | XMS_ITS | Clinical Summary ---
Author Organization [facility] Address [address] [place] [address] Care Team Providers Care Driving School Instructor Name Role Phone None Reported, Pcp Primary Care Provider Unavail able Source Comments Patient records contain information from all sites at [facility]. For routine questions regarding patient records, call [phone] during business hours, M-F 8:00 AM - 5:00 PM Central Time. Record requests for emergency care only can be directed to [phone] at any time.[facility] Allergies No known active allergies Medications blood [...] guaze. Assessment & Plan (06/15/2023 4:18 PM [facility]): The wound bed is clean. A thin layer of silver stat will be applied with a gauze. Change daily. 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 Left Heel: Area continues to improve. Wound measures [id number]. Edges well defined, attached and 100% re-epithelialized tissues. Granulation tissue is observed along the lining of the edges under the bed of slough/eschar. Eschar is soft but not mushy. Wound bed is still approx 95% or more of slough/eschar. Scant drainage with dressing change. Resident tolerated cares without any concerns. New wound orders as follows: Assessment & Plan (06/15/2023 4:10 PM [facility]): 1: Gently cleanse area with NS. Pat dry. 2. Skin prep to gonsalo-wound. 3. Santyl to wound bed only. 4. Place gauze over wound. 5. cover with island dressing. 6. Change dressing daily. He may be discharged to home with home nursing for wound care . Assessment & Plan (06/01/2023 2:33 PM [facility]): Continue wound care and have NEGATIVE RESTORER evaluate in one week. Dementia 05/20/2023 Overview (05/24/2023): No documented dementia or behaviors Assessment & Plan (05/24/2023 5:57 PM [facility]): He has low hearing which could contribute to him not understanding Assessment & Plan (05/20/2023 4:20 PM [facility]): Although initial BIMS testing scored 14, he has had episodes of what seems to be sundowning with strong suspicion of underlying dementia. Will have OT further evaluate. Hyperglycemia 04/22/2023 Overview (04/22/2023): Prior to recent hospitalization, insulin glargine dose was 25 units daily and short-acting insulin 10 units with meals. Assessment & Plan (05/24/2023 6:00 PM [facility]): A1C 7.2 He will follow up with his PCP in [place] Assessment & Plan (04/22/2023 8:28 PM [facility]): His appetite has been poor and he has been getting much less insulin than he is used to. His sugars however have been high. Will gradually increase mealtime insulin to 7 units. Previously on 10 units with meals. 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 [...] site Assessment & Plan (04/16/2023 7:55 PM [facility]): Pain is well controlled. Stump care consists of washing with normal saline and dry. Cover with dry gauze or ABD b.i.d. he is wearing the knee brace to maintain extension in his working with therapies. He has follow-up with vascular surgery 05/11/2023. Assessment & Plan (04/12/2023 4:53 PM [facility]): Patient and mentioned he is doing well [...] 75mcg. Assessment & Plan (06/05/2023 9:25 PM [facility]): TSH value improved compared to prior value of 16.0 a month ago. Resident /nursing denied symptoms of hypothyroidism. Last T4 was 0.92 in April 2023. vice president of contracts confirmed levothyroxine is given every morning (6am) without other medications. Therefore, we will increase levothyroxine 50mcg to 75mcg and rechecked TSH in 6 weeks. Nursing instructed to continue monitoring for symptoms of hypothyroidism and contact [facility] provider if any concerns. Assessment & Plan (05/24/2023 5:24 PM [facility]): Increase levothyroxine to 50 mcg daily. group home may give two 25 mcg tablets to equal 50 mcg. He will be discharging in a week Assessment & Plan (04/23/2023 12:56 PM [facility]): TSH will be done. He is currently on levothyroxine 25 mcg daily. Dose will need to be adjusted if TSH is elevated. Assessment & Plan (04/16/2023 7:56 PM [facility]): Recheck TSH mid April. Assessment & Plan (04/12/2023 4:45 PM [facility]): Continue levothyroxine. TSH reordered. 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 Assessment & Plan (04/12/2023 4:08 PM [facility]): Plans to discharge back home. Patient remains [...] status Assessment & Plan (05/24/2023 5:15 PM [facility]): He will be full code Assessment & Plan (01/17/2023 2:30 PM CDT): Continue full code status Hyperlipidemia 01/16/2023 Overview (05/24/2023): On atorvastatin Assessment & Plan (05/24/2023 6:01 PM [facility]): Stay on statin Assessment & Plan (01/17/2023 2:35 PM CDT): Continue atorvastatin Assessment & Plan (01/17/2023 2:01 PM CDT): Continue atorvastatin Weakness General 01/16/2023 Overview (01/16/2023): This is multifactorial and related to recent hospitalizations and multiple comorbidities. Assessment & Plan (06/05/2023 9:26 PM [facility]): Denied weakness. We will continue therapy. Assessment & Plan (05/24/2023 6:05 PM [facility]): He is getting stronger with therapy. He will continue therapy when he gets his prosthesis. He will have a wheelchair upon discharge. Assessment & Plan (04/12/2023 4:09 PM [facility]): Verbalized improvement with weakness. We will continue [...] 04/11/2023 Assessment & Plan (04/12/2023 3:58 PM [facility]): Stable. Denied dizziness, lightheadedness, shortness of breaths and palpitation. Assessment & Plan (01/17/2023 2:30 PM CDT): Stable. Assessment & Plan (01/17/2023 1:58 PM CDT): Stable. Assessment & Plan (01/16/2023 7:16 PM CDT): Most recent hemoglobin 9.3. Atherosclerotic Heart Diseas e Of [place] Coronary Artery Without Angina Pectoris 01/15/2023 Overview [...] RAP). Assessment & Plan (05/24/2023 5:52 PM [facility]): Stable on current meds Assessment & Plan (04/23/2023 1:02 PM [facility]): BNAP 31,578 on 04/16/23. Dr. Gerardo increased furosemide to 40 mg bid and added spironolactone 25 mg daily. Weight today in [place] was 174 lb. No edema noted in left leg. No dyspnea. On O2 per N/C continuous. No change in medications until renal function results are available. Assessment & Plan (04/16/2023 7:41 PM [facility]): He had multiple medication changes during hospitalization including discontinuation of spironolactone and Entresto. Farxiga is being held. Metoprolol and furosemide doses were decreased. Assessment & Plan (04/12/2023 4:01 PM [facility]): No admission weight yet. Nursing to check [...] 12/22/2022 Assessment & Plan (04/22/2023 8:26 PM [facility]): Pro BN AP earlier today greater than [...] Apixaban Assessment & Plan (05/24/2023 5:53 PM [facility]): snf anticoagulation on apixaban Assessment & Plan (04/23/2023 1:03 PM [facility]): Ventricular rate controlled today Assessment & Plan (04/12/2023 3:59 PM [facility]): HR well controlled ranging from 82-85. Continue care plan. Assessment & Plan (01/17/2023 2:31 PM CDT): HR well controlled ranging from 64-99. Continue care plan. Assessment & Plan (01/16/2023 8:24 AM CDT): HR well controlled. Continue care plan. Residential Use Of Insulin Active 12/09/2022 Overview (01/16/2023): On insulin glargine and aspart started during hospitalization December 2022. Assessment & Plan (05/24/2023 5:20 PM [facility]): Nurse reports he is nonadherent to his [...] daily Assessment & Plan (06/07/2023 2:51 PM [facility]): Blood sugars have been elevated due to [...] hypoglycemia. Assessment & Plan (05/29/2023 7:56 PM [facility]): Patient's blood sugar continued to be on [...] possible. Assessment & Plan (05/24/2023 5:59 PM [facility]): Insulin dependent not always compliant with diet. Glargine will be increased to 17 units. Assessment & Plan (05/22/2023 6:43 PM [facility]): Blood sugar continued to be elevated mostly [...] 3 times daily with meals. Follow-up with NEGATIVE RESTORER next week. Dietitian/dietary to visit with patient and to discuss food options. Assessment & Plan (05/20/2023 4:22 PM [facility]): Recent blood sugars in the SNF setting have been elevated. Short and long-acting insulin doses have changed significantly since admission. Will have him follow- up with NEGATIVE RESTORER for further review of blood sugars. Assessment & Plan (04/23/2023 1:04 PM [facility]): Blood sugars not controlled. Increase Lantus to 14 units from 12. Assessment & Plan (04/16/2023 7:42 PM [facility]): Was previously on glipizide and higher doses of mealtime aspart. Blood sugars are being checked 4 times daily. May need insulin readjusted. Assessment & Plan (04/12/2023 4:04 PM [facility]): Blood sugars have been I< 200s. Currently [...] to 25 units and follow-up. Atherosclerosis Of [place] Ar teries Of Other Extremities With Ulceration [...] 120-130 Assessment & Plan (04/12/2023 4:07 PM [facility]): Images from the original note were not [...] redness. Assessment & Plan (05/24/2023 5:14 PM [facility]): Stable Assessment & Plan (04/29/2023 7:54 PM [facility]): Today, nursing had reported left lower calf and ankle redness with open wound. On assessing the left calf/ankle, there was an open skin area (abrasion) that has no redness, swelling nor drainage. The skin was not warmth to touch and patient denied pain at 0/10 (nurse manager warehouse was in attendance during visit). Nursing stated does look better than what it was this morning. They have been cleaning the wound area in apply Mepilex. Since there was no symptoms or evidence of infection on the left lower calf and ankle redness with open wound, nursing was instructed to continue skin check daily and current dressing. Contact [facility] providers if worsening skin condition. Of note, [...] for COVID-19 12/27/2022. Treated with remdesivir at [facility]. Anemia 01/16/2023 04/12/2023 Overview (04/12/2023): Lab Results Component Value Date WBC 9.0 04/11/2023 HGB 7.8 (L) 04/11/2023 HCT 24.9 (L) 04/11/2023 MCV 95 04/11/2023 PLT 381 04/11/2023 Assessment & Plan (04/12/2023 3:57 PM [facility]): CBC reordered. Denied dizziness, lightheadedness, shortness of [...] 04/11/2023 Assessment & Plan (04/12/2023 4:05 PM [facility]): BMP ordered. 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 Med Refill from Last [...] Comments Blood Pressure 107/66 06/18/2023 1:10 PM [facility] Pulse 78 06/18/2023 1:10 PM [facility] Temperature 36.6 C (97.8 F) 06/18/2023 1:10 PM [facility] Respiratory Rate 16 06/18/2023 1:10 PM [facility] Oxygen Saturation 95% 06/18/2023 1:10 PM [facility] Inhaled Oxygen Concentration - - Weight 75.8 kg (167 lb) 06/18/2023 1:10 PM [facility] Height 175.3 cm (5' 9) 04/12/2023 3:21 PM [facility] Body Mass Index 24.66 04/12/2023 3:21 PM [facility] Plan of Treatment Health Maintenance Due Date [...] patient's age to complete this topic Insurance [facility] [place] [address] MEDICARE [facility] Advance Directives For more information, please contact: [phone] * DNR/DNI (Latest Code Status on File) Date Activated Date Inactivated Comments 05/24/2023 6:14 PM * DNR/DNI Date Activated Date Inactivated Comments 04/12/2023 4:11 PM 04/16/2023 7:15 AM Care Teams Driving School Instructor Relationship Specialty Start Date End Date None Reported, Pcp PCP - General 03/21/24
--- OUTSIDE RECORDS SUMMARY | 2024-04-21 14:22 | XMS_ITS | Referral Summary ---
Author Organization [facility] Address [address] [place] [address] Care Team Providers Care Epic [facility] Name Role Phone None Reported, Pcp Primary Care Provider Unavail able Source Comments Patient records contain information from all sites at [facility]. For routine questions regarding patient records, call [phone] during business hours, M-F 8:00 AM - 5:00 PM Central Time. Record requests for emergency care only can be directed to [phone] at any time.[facility] Encounters Date Type Department Care Team Description 03/12/2024 Refill Senior [facility] in [facility] [address] [place] [address] Hannah Castillo, RAYNA, C.N.P. Med [...] guaze. Assessment & Plan (06/15/2023 4:18 PM SURGICAL ASSISTANT CERTIFIED): The wound bed is clean. A thin layer of silver stat will be applied with a gauze. Change daily. 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 Left Heel: Area continues to improve. Wound measures [id number]. Edges well defined, attached and 100% re-epithelialized tissues. Granulation tissue is observed along the lining of the edges under the bed of slough/eschar. Eschar is soft but not mushy. Wound bed is still approx 95% or more of slough/eschar. Scant drainage with dressing change. Resident tolerated cares without any concerns. New wound orders as follows: Assessment & Plan (06/15/2023 4:10 PM SURGICAL ASSISTANT CERTIFIED): 1: Gently cleanse area with NS. Pat dry. 2. Skin prep to gonsalo-wound. 3. Santyl to wound bed only. 4. Place gauze over wound. 5. cover with island dressing. 6. Change dressing daily. He may be discharged to home with home nursing for wound care . Assessment & Plan (06/01/2023 2:33 PM SURGICAL ASSISTANT CERTIFIED): Continue wound care and have TRANSPORTATION DEPARTMENT SUPERVISOR evaluate in one week. Dementia 05/20/2023 Overview (05/24/2023): No documented dementia or behaviors Assessment & Plan (05/24/2023 5:57 PM SURGICAL ASSISTANT CERTIFIED): He has low hearing which could contribute to him not understanding Assessment & Plan (05/20/2023 4:20 PM SURGICAL ASSISTANT CERTIFIED): Although initial BIMS testing scored 14, he has had episodes of what seems to be sundowning with strong suspicion of underlying dementia. Will have OT further evaluate. Hyperglycemia 04/22/2023 Overview (04/22/2023): Prior to recent hospitalization, insulin glargine dose was 25 units daily and short-acting insulin 10 units with meals. Assessment & Plan (05/24/2023 6:00 PM SURGICAL ASSISTANT CERTIFIED): A1C 7.2 He will follow up with his PCP in [place] Assessment & Plan (04/22/2023 8:28 PM SURGICAL ASSISTANT CERTIFIED): His appetite has been poor and he has been getting much less insulin than he is used to. His sugars however have been high. Will gradually increase mealtime insulin to 7 units. Previously on 10 units with meals. [facility] (Current) Anticoagulant Treatment 08/2022 Overview (04/16/2023): On [...] side. 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 He will need a standard wheelchair Mr. Woods was admitted to [facility] April 10 following BK right lower [...] site Assessment & Plan (04/16/2023 7:55 PM SURGICAL ASSISTANT CERTIFIED): Pain is well controlled. Stump care consists of washing with normal saline and dry. Cover with dry gauze or ABD b.i.d. he is wearing the knee brace to maintain extension in his working with therapies. He has follow-up with vascular surgery 05/11/2023. Assessment & Plan (04/12/2023 4:53 PM SURGICAL ASSISTANT CERTIFIED): Patient and mentioned he is doing well [...] 75mcg. Assessment & Plan (06/05/2023 9:25 PM SURGICAL ASSISTANT CERTIFIED): TSH value improved compared to prior value of 16.0 a month ago. Resident /nursing denied symptoms of hypothyroidism. Last T4 was 0.92 in April 2023. residential finish carpenter confirmed levothyroxine is given every morning (6am) without other medications. Therefore, we will increase levothyroxine 50mcg to 75mcg and rechecked TSH in 6 weeks. Nursing instructed to continue monitoring for symptoms of hypothyroidism and contact [place] provider if any concerns. Assessment & Plan (05/24/2023 5:24 PM SURGICAL ASSISTANT CERTIFIED): Increase levothyroxine to 50 mcg daily. half-way may give two 25 mcg tablets to equal 50 mcg. He will be discharging in a week Assessment & Plan (04/23/2023 12:56 PM SURGICAL ASSISTANT CERTIFIED): TSH will be done. He is currently on levothyroxine 25 mcg daily. Dose will need to be adjusted if TSH is elevated. Assessment & Plan (04/16/2023 7:56 PM SURGICAL ASSISTANT CERTIFIED): Recheck TSH mid April. Assessment & Plan (04/12/2023 4:45 PM SURGICAL ASSISTANT CERTIFIED): Continue levothyroxine. TSH reordered. 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 Assessment & Plan (04/12/2023 4:08 PM SURGICAL ASSISTANT CERTIFIED): Plans to discharge back home. Patient remains [...] home with home health care. Follow-up with OR provider Assessment & Plan (01/17/2023 2:06 PM [...] status Assessment & Plan (05/24/2023 5:15 PM SURGICAL ASSISTANT CERTIFIED): He will be full code Assessment & Plan (01/17/2023 2:30 PM CDT): Continue full code status Hyperlipidemia 01/16/2023 Overview (05/24/2023): On atorvastatin Assessment & Plan (05/24/2023 6:01 PM SURGICAL ASSISTANT CERTIFIED): Stay on statin Assessment & Plan (01/17/2023 2:35 PM CDT): Continue atorvastatin Assessment & Plan (01/17/2023 2:01 PM CDT): Continue atorvastatin Weakness General 01/16/2023 Overview (01/16/2023): This is multifactorial and related to recent hospitalizations and multiple comorbidities. Assessment & Plan (06/05/2023 9:26 PM SURGICAL ASSISTANT CERTIFIED): Denied weakness. We will continue therapy. Assessment & Plan (05/24/2023 6:05 PM SURGICAL ASSISTANT CERTIFIED): He is getting stronger with therapy. He will continue therapy when he gets his prosthesis. He will have a wheelchair upon discharge. Assessment & Plan (04/12/2023 4:09 PM SURGICAL ASSISTANT CERTIFIED): Verbalized improvement with weakness. We will continue [...] 04/11/2023 Assessment & Plan (04/12/2023 3:58 PM SURGICAL ASSISTANT CERTIFIED): Stable. Denied dizziness, lightheadedness, shortness of breaths and palpitation. Assessment & Plan (01/17/2023 2:30 PM CDT): Stable. Assessment & Plan (01/17/2023 1:58 PM CDT): Stable. Assessment & Plan (01/16/2023 7:16 PM CDT): Most recent hemoglobin 9.3. Atherosclerotic Heart Diseas e Of [place] Coronary Artery Without Angina Pectoris 01/15/2023 Overview [...] RAP). Assessment & Plan (05/24/2023 5:52 PM SURGICAL ASSISTANT CERTIFIED): Stable on current meds Assessment & Plan (04/23/2023 1:02 PM SURGICAL ASSISTANT CERTIFIED): BNAP 31,578 on 04/16/23. Dr. Gerardo increased furosemide to 40 mg bid and added spironolactone 25 mg daily. Weight today in [place] was 174 lb. No edema noted in left leg. No dyspnea. On O2 per N/C continuous. No change in medications until renal function results are available. Assessment & Plan (04/16/2023 7:41 PM SURGICAL ASSISTANT CERTIFIED): He had multiple medication changes during hospitalization including discontinuation of spironolactone and Entresto. Farxiga is being held. Metoprolol and furosemide doses were decreased. Assessment & Plan (04/12/2023 4:01 PM SURGICAL ASSISTANT CERTIFIED): No admission weight yet. Nursing to check [...] 12/22/2022 Assessment & Plan (04/22/2023 8:26 PM SURGICAL ASSISTANT CERTIFIED): Pro BN AP earlier today greater than [...] Apixaban Assessment & Plan (05/24/2023 5:53 PM SURGICAL ASSISTANT CERTIFIED): senior living anticoagulation on apixaban Assessment & Plan (04/23/2023 1:03 PM SURGICAL ASSISTANT CERTIFIED): Ventricular rate controlled today Assessment & Plan (04/12/2023 3:59 PM SURGICAL ASSISTANT CERTIFIED): HR well controlled ranging from 82-85. Continue care plan. Assessment & Plan (01/17/2023 2:31 PM CDT): HR well controlled ranging from 64-99. Continue care plan. Assessment & Plan (01/16/2023 8:24 AM CDT): HR well controlled. Continue care plan. [facility] Use Of Insulin Active 12/09/2022 Overview (01/16/2023): On insulin glargine and aspart started during hospitalization December 2022. Assessment & Plan (05/24/2023 5:20 PM SURGICAL ASSISTANT CERTIFIED): Nurse reports he is nonadherent to his [...] daily Assessment & Plan (06/07/2023 2:51 PM SURGICAL ASSISTANT CERTIFIED): Blood sugars have been elevated due to [...] hypoglycemia. Assessment & Plan (05/29/2023 7:56 PM SURGICAL ASSISTANT CERTIFIED): Patient's blood sugar continued to be on [...] sugar diets like he does at the [facility]. I have discussed with nursing on encouraging [...] possible. Assessment & Plan (05/24/2023 5:59 PM SURGICAL ASSISTANT CERTIFIED): Insulin dependent not always compliant with diet. Glargine will be increased to 17 units. Assessment & Plan (05/22/2023 6:43 PM SURGICAL ASSISTANT CERTIFIED): Blood sugar continued to be elevated mostly [...] 3 times daily with meals. Follow-up with TRANSPORTATION DEPARTMENT SUPERVISOR next week. Dietitian/dietary to visit with patient and to discuss food options. Assessment & Plan (05/20/2023 4:22 PM SURGICAL ASSISTANT CERTIFIED): Recent blood sugars in the SNF setting have been elevated. Short and long-acting insulin doses have changed significantly since admission. Will have him follow- up with TRANSPORTATION DEPARTMENT SUPERVISOR for further review of blood sugars. Assessment & Plan (04/23/2023 1:04 PM SURGICAL ASSISTANT CERTIFIED): Blood sugars not controlled. Increase Lantus to 14 units from 12. Assessment & Plan (04/16/2023 7:42 PM SURGICAL ASSISTANT CERTIFIED): Was previously on glipizide and higher doses of mealtime aspart. Blood sugars are being checked 4 times daily. May need insulin readjusted. Assessment & Plan (04/12/2023 4:04 PM SURGICAL ASSISTANT CERTIFIED): Blood sugars have been I< 200s. Currently [...] to 25 units and follow-up. Atherosclerosis Of [place] Ar teries Of Other Extremities With Ulceration [...] 120-130 Assessment & Plan (04/12/2023 4:07 PM SURGICAL ASSISTANT CERTIFIED): Images from the original note were not [...] redness. Assessment & Plan (05/24/2023 5:14 PM SURGICAL ASSISTANT CERTIFIED): Stable Assessment & Plan (04/29/2023 7:54 PM SURGICAL ASSISTANT CERTIFIED): Today, nursing had reported left lower calf and ankle redness with open wound. On assessing the left calf/ankle, there was an open skin area (abrasion) that has no redness, swelling nor drainage. The skin was not warmth to touch and patient denied pain at 0/10 (nurse clinical trials manager was in attendance during visit). Nursing stated does look better than what it was this morning. They have been cleaning the wound area in apply Mepilex. Since there was no symptoms or evidence of infection on the left lower calf and ankle redness with open wound, nursing was instructed to continue skin check daily and current dressing. Contact [facility] providers if worsening skin condition. Of [...] for COVID-19 12/27/2022. Treated with remdesivir at [facility]. Anemia 01/16/2023 04/12/2023 Overview (04/12/2023): Lab Results Component Value Date WBC 9.0 04/11/2023 HGB 7.8 (L) 04/11/2023 HCT 24.9 (L) 04/11/2023 MCV 95 04/11/2023 PLT 381 04/11/2023 Assessment & Plan (04/12/2023 3:57 PM SURGICAL ASSISTANT CERTIFIED): CBC reordered. Denied dizziness, lightheadedness, shortness of [...] 04/11/2023 Assessment & Plan (04/12/2023 4:05 PM SURGICAL ASSISTANT CERTIFIED): BMP ordered. Assessment & Plan (01/17/2023 2:35 [...] Overview (01/15/2023): Onychomycosis of toenails; Original Code: [id number] Original Codesystem: SNOMED CT Classification: Medical Confirmation [...] Comments Blood Pressure 107/66 06/18/2023 1:10 PM SURGICAL ASSISTANT CERTIFIED Pulse 78 06/18/2023 1:10 PM SURGICAL ASSISTANT CERTIFIED Temperature 36.6 C (97.8 F) 06/18/2023 1:10 PM SURGICAL ASSISTANT CERTIFIED Respiratory Rate 16 06/18/2023 1:10 PM SURGICAL ASSISTANT CERTIFIED Oxygen Saturation 95% 06/18/2023 1:10 PM SURGICAL ASSISTANT CERTIFIED Inhaled Oxygen Concentration - - Weight 75.8 kg (167 lb) 06/18/2023 1:10 PM SURGICAL ASSISTANT CERTIFIED Height 175.3 cm (5' 9) 04/12/2023 3:21 PM SURGICAL ASSISTANT CERTIFIED Body Mass Index 24.66 04/12/2023 3:21 PM SURGICAL ASSISTANT CERTIFIED Plan of Treatment Not on file Insurance MEDICARE [facility] Advance Directives For more information, please contact: [phone] * DNR/DNI (Latest Code Status on File) Date Activated Date Inactivated Comments 05/24/2023 6:14 PM * DNR/DNI Date Activated Date Inactivated Comments 04/12/2023 4:11 PM 04/16/2023 7:15 AM Care Teams Epic [facility] Relationship Specialty Start Date End Date None Reported, Pcp PCP - General 03/21/24
--- OUTSIDE RECORDS SUMMARY | 2024-04-21 14:22 | XMS_ITS | Encounter Summary ---
Author Name [facility] [place] [facility] [place] [facility] [place] Address [address] [place] [address] Care Team Providers Care Rn Hyperbaric Name Role Phone JIMENEZ CHESTER Primary Care [...] [facility] (WNR) MEDICARE ADVANTAGE [facility] (WNR) May 14, 2020 [id number] [phone] PITER CASAS ERD PATIENT Selected Encounter This [...] of right leg below knee JUAN JEAN [facility] Plan of Treatment: Future Appointments (+ 6 months) and Future Tests (+/- 45 days) The Plan of Treatment section includes future care activities for the patient from all [place] [facility]. This section includes future appointments and future orders which are active, pending or scheduled. Future Appointments This section includes appointments that were scheduled to occur 6 months from the date of the Encounter, up to a maximum of 20 appointments. The data comes from all [facility]. Appointment Date/Time Appointment Type Appointme nt Facility Name Apr 07, 2024 10:30 AM AMBULATORY - REHAB MEDICIN E [facility] Active, Pending, and Scheduled Orders This section includes a listing of several types of active, pending, and scheduled orders, including clinic medications orders, diagnostic test orders, procedure orders and consult orders; where the start date of the order is 45 days before the date of the Encounter or 45 days after the date of theEncounter. The data comes from all [facility]. Test Date/Time Test Type Test Details Facility Name Apr 18, 2024 09:25 AM Consult Order PROSTHETIC S REQUEST Cons Infection Prevention Practitioner's Choice [facility] Encounter Notes: All associated encounter [...] position of a minivan vehicle via his [employer] [facility] includes: Vet and plan to purchase a 2023 [employer] [place] 1. Full wheelchair-accessible minivan conversion package (i.e., lowered floors, lowered doors, keyless entry, power sliding doors) with standard 54-inch side-entry door opening height with power fold-out vs. power in-floor ramp. 2. Q'Straint QLK, EZ-Lock, or equivalent, wheelchair docking system for vet's Quantum Q6 Edge 3 PWC, with purse framer positioned in front passenger- side position of vehicle. 3. Seat belt purse framer extension secured to floor via in-floor track [...] By: 04/01/2024 09:17 /riccardo/ VLADIMIR NGUYỄN Prosthetics 04/08/2024 15:41 /riccardo/ LISANDRA GUTIERREZ PROSTHETIC REP (TCF) [facility]AN JEAN [facility]
--- OUTSIDE RECORDS SUMMARY | 2024-04-21 14:22 | XMS_ITS | Encounter Summary ---
Author Name [facility] [place] Organization [place] Address [address] [place] [address] Care Team Providers Care Records Tech Name Role Phone JIMENEZ CHESTER Primary Care [...] Patient's Relationship to Policy [facility] (WNR) MEDICARE ADVANTAGE [facility] (WNR) May 14, 2020 [id number] [phone] PITER CASAS ERD PATIENT Selected Encounter This section includes the information on record at [place] for the Encounter. Date/Time Encounter Type Encounter Description Reason Provider Source Apr 07, 2024 10:30 AM WHEELCHAIR MNGMENT TRAINING WHEELCHAIR & ADVAN MOBILITY ICD-10-CM R53.1 Weakness SUSANNA EATON [facility] Encounter Template Text not used by [place] Assessments - Encounter Diagnoses This section includes the primary and secondary diagnoses documented for the Encounter. Date/Time Primary/Secondary Diagnosis Diagnosis Name Provider Source Apr 07, 2024 02:53 PM PRIMARY Weakness SUSANNA EATON [facility] Plan of Treatment: Future Appointments (+ 6 months) and Future Tests (+/- 45 days) The Plan of Treatment section includes future care activities for the patient from all [place] treatmentfacilities. This section includes future appointments and [...] of theEncounter. The data comes from all [place] treatment facilities. Test Date/Time Test Type Test Details Facility Name Apr 18, 2024 09:25 AM Consult Order PROSTHETIC S REQUEST Cons Bacon Stringer's Choice [facility] Encounter Notes: All associated [...] BKA Encounters: -Wheelchair management (4): 65m ASSESSMENT: Vefaviola is a 83 yo male referred to [...] cares identified at this time. ISSUED: -Item: Letty Kapoor (16x18, power tilt and elevate, Hayder Comfort SPP 2 cushion) -Vendor: [employer] -Quote #: [id number] - [id number] -Total weight: 398# -Serial #: [id number] PLAN: Goal to evaluate for advanced mobility [...] MEDICAL HISTORY: CAD - Coronary Artery Disease ([facility] [id number] Mellitus Type 2 ([facility] [id number]) HTN - Hypertension ([facility] [id number]) Peripheral neuropathy due to type 2 diabetes mellitus ([facility] [id number]) Long-term current use of insulin (SCT 71Hyperlipidemia ([facility] [id number]) CHF - Congestive Heart Failure ([facility] 4234Exposure to potentially hazardous substance ([facility] [id number]) Hypothyroidism ([facility] [id number]) History of amputation of right leg through tibia and fibula ([facility] [id number]) SUBJECTIVE: Identified goal(s) with wheelchair use: -Take [...] provided from Medicare and 4WW provided from [facility] accessibility: -All cares met on main floor -Front door (primary) -Unheated 3 car garage PRIOR LEVEL OF INDEPENDENCE: Vet/ reports: -Transferring: Mod I - present for stability as needed -Mobility: -In-home: MWC use primarily in-home w/ self-propulsion -Community: MWC with caregiver propulsion -Falls: 1 fall (slide off of bed after STR stay) -Driving: Dependent -2022 [employer] XT5 - only drives currently Seating and [...] permission. All rights reserved. /riccardo/ Susanna Eaton, OTR/L, ATP Supervisory Occupational Therapist Signed: 04/07/2024 14:53 [...] Occupational Therapist Signed: 04/07/2024 14:55 SUSANNA EATON [facility]
--- OUTSIDE RECORDS SUMMARY | 2024-04-21 14:22 | XMS_ITS | Data Portability ---
Author Organization [facility] Dominick gy, [facility] Address [address] [place] [address] Care Team Providers Care Tie Fastener Name Role Phone VOTELPARVEZ Primary Care Provider [phone] Assessment No assessment recorded. Plan of Treatment [...] Address Organization Details Last Updated DateTime 11/28/2023 95987.78 g 23 kg/m2 177.8 [facility] 11/28/2023 14:16:54 Social History Question Answer Notes LastModified by Organizat ion Details LastModified Time Tobacco Smoking Status Former Smoker [facility] Ryan winn [facility] 11/28/2023 14:22:10 [...] 14:17:02 Influenza, adjuvanted, quadrivalent, PF 03/05/2023 completed [facility] null, [facility] 11/28/2023 14:17:02 COVID-19, mRNA, LNP-S, PF, 100 mcg/0.5mL dose or 50 mcg/0.25mL dose 03/09/2021 completed [facility] null, [facility] 11/28/2023 14:17:02 COVID-19, mRNA, LNP-S, PF, 30 mcg/0.3 mL dose 07/03/[address] [facility], [facility] 11/28/2023 14:17:02 COVID-19, mRNA, LNP-S, PF, 30 mcg/0.3 mL dose 07/24/[address] [facility], [facility] 11/28/2023 14:17:02 COVID-19, mRNA, LNP-S, bivalent, PF, 50 mcg/0.5 mL or 25mcg/0.25 mL dose 03/29/2022 completed [facility] null, [facility] 11/28/2023 14:17:02 RSV, bivalent, protein subunit RSVpreF, diluent reconstituted, 0.5 mL, PF 03/05/2023 [facility], [facility] 11/28/2023 14:17:02 COVID-19, mRNA, LNP-S, PF, estrella-sucrose, 30 mcg/0.3 mL 03/05/[address] [facility], [facility] 11/28/2023 14:17:02 pneumococcal polysaccharide PPV23 02/09/2011 [facility], [facility] 11/28/2023 14:17:02 pneumococcal polysaccharide PPV23 03/06/[address] [facility], [facility] 11/28/2023 14:17:02 influenza, unspecified formulation 03/15/[address] [facility], [facility] 11/28/2023 14:17:02 Pneumococcal conjugate PCV 13 01/21/2015 completed [facility] null, [facility] 11/28/2023 14:17:02 Influenza, high-dose, trivalent, PF 01/21/[address] [facility], [facility] 11/28/2023 14:17:02 Influenza, high-dose, trivalent, PF 03/07/2019 [facility], [facility] 11/28/2023 14:17:02 Influenza, split virus, trivalent, preservative 01/30/2013 completed [facility] null, [facility] 11/28/2023 14:17:02 Influenza, split virus, trivalent, preservative 02/26/2003 completed [facility] null, [facility] 11/28/2023 14:17:02 Influenza, split virus, trivalent, preservative 03/01/[address] [facility], [facility] 11/28/2023 14:17:02 Influenza, split virus, trivalent, preservative 03/05/2007 [facility], [facility] 11/28/2023 14:17:02 Influenza, split virus, trivalent, preservative 03/06/2006 completed [facility] null, [facility] 11/28/2023 14:17:02 Influenza, split virus, trivalent, preservative 03/09/2005 [facility], [facility] 11/28/2023 14:17:03 Influenza, split virus, trivalent, preservative 03/09/2008 [facility] 11/28/2023 14:17:03 Influenza, split virus, trivalent, preservative 03/13/2012 completed [facility] null, [facility] 11/28/2023 14:17:03 Influenza, split virus, trivalent, preservative 04/28/2010 completed [facility] null, [facility] 11/28/2023 14:17:03 Influenza, split virus, trivalent, PF 02/09/2011 completed [facility] null, [facility] 11/28/2023 14:17:03 Influenza, split virus, trivalent, PF 04/05/2009 completed [facility] null, [facility] 11/28/2023 14:17:03 Td (adult), 5 Lf tetanus toxoid, preservative free, adsorbed 03/06/2006 [facility] 11/28/2023 14:17:03 Past Encounters Encounter ID Performer Location Encounter Start Date Encounter Closed Date Diagnosis/Indication Diagnosis SNOMED-CT Code Diagnosis ICD10 Code [id number] Roberto Carballo MD [facility] [address] [place] [address] 11/28/2023 13:46:09 12/04/2023 16:43:22 Phimosis 885593901 N47.1 Health Concerns Section Related Observation LastModified by Organization Detai ls LastModified Time None Recorded Concern Status LastModified by Organization Details LastModified Time None Recorded Advance Directives Directive None Recorded Payers Encounter Date Sequence Insurance Name Policy Number Policy Cherry Covered Member ID Cherry Member ID Guarantor Name 11/28/2023 1 [employer] [id number] Rosalina Bowers [id number] Rosalina Bowers Notes Date Note Type Note [...] 1.38 (03/05/07)- 1.40 (04/28/10) Roberto Carballo MD [address] [place] [address],[facility] [address], [place], [address], [facility] 11/30/2023 11:21:51
--- OUTSIDE RECORDS SUMMARY | 2024-04-21 14:22 | XMS_ITS ---
Author Organization [facility] Address [address] [place] [address] Care Team Providers Care Advertising Sales Manager Name Role Phone Unavailable Unavailable Unavailable Surgery Details Not on file Complications Check Surgery Details section. Procedure Estimated Blood Loss Check Surgery Details section. Procedure Findings Check Surgery Details section. Procedure Specimens Taken Check Surgery Details section.
--- OUTSIDE RECORDS SUMMARY | 2024-04-21 14:23 | XMS_ITS | Encounter Summary ---
Author Organization [facility] Address [address] [place] [address] Care Team Providers Care Contact Lens Molder Name Role Phone None Reported, Pcp Primary Care Provider Unavail able Reason for Visit * Reason Comments Med Refill Encounter Details Date Type Department Care Team (Late st Contact Info) Description 03/12/2024 Refill [facility] [address] [place] [phone] Hannah Castillo, RAYNA, C.N.P. [address] [facility] [place] [phone] Med Refill Social History Tobacco Use Types [...] on filedocumented in this encounter Care Teams Contact Lens Molder Relationship Specialty Start Date End Date None Reported, Pcp PCP - General 03/21/24 documented as of this encounter
== END 2024-04-21 14:18 | disposition home or self-care (01) ==
LOC: WOUND 14:17
PROVIDERS: PCP Family Medicine; Visit Provider Nurse Practitioner Family
DX: E11.622 Type 2 diabetes mellitus with other skin ulcer (principal); L97.828 Non-pressure chronic ulcer of other part of left lower leg with other specified severity; L97.818 Non-pressure chronic ulcer of other part of right lower leg with other specified severity; Z89.511 Acquired absence of right leg below knee; L89.620 Pressure ulcer of left heel, unstageable; Z79.4 Long term (current) use of insulin; Z79.84 Long term (current) use of oral hypoglycemic drugs
CPT/HCPCS: 11042; 97602

== ENCOUNTER 2024-04-28 13:01 | Outpatient (CLI) | payer OTHER, MEDICARE, BC, SELFPAY | END 2024-04-28 13:02 | disposition home or self-care (01) | LOC: WOUND 13:02 | PROVIDERS: PCP Family Medicine; Visit Provider Nurse Practitioner Family | DX: E11.621 Type 2 diabetes mellitus with foot ulcer (principal); L97.428 Non-pressure chronic ulcer of left heel and midfoot with other specified severity; E11.622 Type 2 diabetes mellitus with other skin ulcer; L97.822 Non-pressure chronic ulcer of other part of left lower leg with fat layer exposed; Z79.4 Long term (current) use of insulin | CPT/HCPCS: 97597; 97602 ==

== ENCOUNTER 2024-05-05 13:10 | Inpatient (IN) | payer OTHER, SELFPAY ==
[2024-05-05] VITALS (7 sets, daily range): BP systolic 107–127; BP diastolic 60–71; PULSE 83–96; RESP 16–20; TEMP 36.5–36.8; O2SAT 96–99; BMI 28.6
--- OUTSIDE RECORDS SUMMARY | 2024-05-05 13:12 | XMS_ITS | Continuity of Care Document ---
Author Name [facility] Organization [facility] Care Team Providers Care Plating Foreman Name Role Phone [facility] Unavailable Unavailable Problems Combined list of problems from Department of Defense and Veterans Affairs facilities. It does not include entries that were removed or entered in error. Problem Status Onset Date Problem Type Date of Resolution Comments Source Exposure to potentially hazardous substance ([facility] [id number]) Active 07/20/19 24 Condition Jul 20, 2023 Entered By: MECHELLE DEMPSEY Comment: [facility] Documentation Initiative [facility] CAD - Coronary Artery Disease ([facility] [id number]) Active Condition [place] ([facility]) CHF - Congestive Heart Failure ([facility] [id number]) Active Condition [facility]) Diabetes Mellitus Type 2 ([facility] [id number]) Active Condition [facility] ([facility]) History of amputation of right leg through tibia and fibula Active Condition [place] ([facility]) HTN - Hypertension ([facility] [id number]) Active Condition [place] ([facility]) Hyperlipidemia ([facility] [id number]) Active Condition [facility]) Hypothyroidism ([facility] [id number]) Active Condition [place] ([facility]) Long-term current use of insulin Active Condition [place] ([facility]) Peripheral neuropathy due to type 2 diabetes mellitus Active Condition [place] ([facility]) Diagnosis: ICD-10-CM R53.1 Weakness Active Diagnosis [facility] Diagnosis: ICD-10-CM Z89.511 Acquired absence of right leg below knee Active Diagnosis [facility] Diagnosis: ICD-10-CM Z65.8 Oth problems related to psychosocial circumstances Active Diagnosis [facility] Diagnosis: ICD-10-CM H90.3 Sensorineural hearing loss, bilateral Active Diagnosis [facility] Diagnosis: ICD-10-CM L89.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, stage 3 Active Diagnosis [facility]) Diagnosis: ICD-10-CM Z46.1 Encounter for fitting and adjustment of hearing aid Active Diagnosis [facility] Diagnosis: ICD-10-CM Z74.09 Other reduced mobility Active Diagnosis [facility] ([facility]) Diagnosis: ICD-10-CM E11.9 Type 2 diabetes mellitus without complications Active Diagnosis [facility] ([facility]) Diagnosis: ICD-10-CM I50.9 Heart failure, unspecified Active Diagnosis [facility] ([facility]) Diagnosis: ICD-10-CM R26.89 Other abnormalities of [...] Jackson WOUND CARE ORDERS TOPICA L 02/16/2024 [id number] KATHY MURPHY [address] [facility] CLOPIDOGREL BISULFATE 75MG TAB TAKE ONE [...] 90 UNITS/DA Y SUBCUT ANEOUS ACTIVE 03/12/2025 [id number] HENRIKRYAN Cason 2023 15 [place] [facility] [...] Y SUBCUT ANEOUS DISCONT INUED (EDIT) 01/10/2025 [id number] HENRIKRYAN Cason 2023 10 [place] [facility] [...] Y SUBCUT ANEOUS DISCONT INUED (EDIT) 11/08/2024 [id number] HENRIKRYAN Cason 2023 10 [place] [facility] [...] Site Reaction Lot Number CVX Code Drug Ice [employer] Associate Status Comments Source COVID-19 ([email or web address]), MRNA, LNP-S, PF, NAVYA-SUCROSE, 30 MCG/0.3 ML (AGES 12+ YEARS) [address] [facility] INFLUENZA, ADJUVANTED, TRIVALENT, PF [address] [facility] COVID-19 (PFIZER), MRNA, LNP-S, PF, NAVYA-SUCROSE, 30 MCG/0.3 ML (AGES 12+ YEARS) [address] [facility] INFLUENZA, ADJUVANTED, QUADRIVALENT, PF [address] [facility] RSV, BIVALENT, PROTEIN SUBUNIT RSVPREF, DILUENT RECONSTITUTED , 0.5 ML, PF [address] [facility] INFLUENZA, HIGH-DOSE, QUADRIVALENT [address] [facility] COVID-19 (MODERNA), MRNA, LNP-S, BIVALENT, PF, 50 MCG/0.5 ML OR 25MCG/0.25 ML DOSE [address] [facility] COVID-19 (MODERNA), MRNA, LNP-S, PF, 100 MCG/0.5ML DOSE OR 50 MCG/0.25ML DOSE [address] [facility] COVID-19 (PFIZER), MRNA, LNP-S, PF, 30 MCG/0.3 ML DOSE 3 2020 208 complet ed [facility] INFLUENZA, HIGH-DOSE, QUADRIVALENT, PF [address] [facility] INFLUENZA, UNSPECIFIED FORMULATION 2020 88 complet ed [facility] TDAP 2020 115 complet ed [employer]line, lot-[id number] , exp-2022 and given VIS dated 12/17/2020 [place] [facility] ([facility]) ZOSTER RECOMBINANT 2 2020 187 complet ed [place] [facility] ([facility]) ZOSTER RECOMBINANT 1 2020 187 complet ed [place] ([facility]) COVID-19 (PFIZER), MRNA, LNP-S, PF, 30 MCG/0.3 ML DOSE [address] [facility] COVID-19 (PFIZER), MRNA, LNP-S, PF, 30 MCG/0.3 ML DOSE 1 [address] [facility] INFLUENZA, ADJUVANTED, TRIVALENT, PF [address] [facility] INFLUENZA, UNSPECIFIED FORMULATION 2019 88 complet ed [facility] INFLUENZA, HIGH-DOSE, TRIVALENT, PF [address] [facility] INFLUENZA, ADJUVANTED, TRIVALENT, PF [address] [facility] INFLUENZA, UNSPECIFIED FORMULATION [address] [facility] INFLUENZA, HIGH-DOSE, TRIVALENT, PF [address] [facility] PNEUMOCOCCAL CONJUGATE PCV 13 2014 133 complet ed [facility] INFLUENZA, SPLIT VIRUS, TRIVALENT, PRESERVATIVE [address] [facility] INFLUENZA, SPLIT VIRUS, TRIVALENT, PRESERVATIVE [address] [facility] INFLUENZA, SPLIT VIRUS, TRIVALENT, PF [address] [facility] PNEUMOCOCCAL POLYSACCHARID E PPV23 2010 33 complet ed [facility] INFLUENZA, SPLIT VIRUS, TRIVALENT, PRESERVATIVE [address] [facility] INFLUENZA, SPLIT VIRUS, TRIVALENT, PF [address] [facility] INFLUENZA, SPLIT VIRUS, TRIVALENT, PRESERVATIVE [address] [facility] INFLUENZA, SPLIT VIRUS, TRIVALENT, PRESERVATIVE [address] [facility] INFLUENZA, SPLIT VIRUS, TRIVALENT, PRESERVATIVE [address] [facility] PNEUMOCOCCAL POLYSACCHARID E PPV23 2005 33 complet ed [facility] TD (ADULT), 5 LF TETANUS TOXOID, PRESERVATIVE FREE, ADSORBED [address] [facility] INFLUENZA, SPLIT VIRUS, TRIVALENT, PRESERVATIVE [address] [facility] INFLUENZA, SPLIT VIRUS, TRIVALENT, PRESERVATIVE [address] [facility] INFLUENZA, SPLIT VIRUS, TRIVALENT, PRESERVATIVE [address] [facility] Results Combined list of recent [...] Jan 23, 2023 02:00 PM Reporting Lab: [facility] [address] Performing Lab: [facility] [address] [facility] ([facility]) BASIC METABOLIC PANEL+MG UREA NITROGEN [MASS/VOLUM E] IN SERUM OR PLASMA 35 mg/dL 8 - 26 01/23 H Specimen Type: PLASMA No comment entered. Ordering Provider: AILIN CHESTER Report Released Date/Time: Jan 23, 2023 02:00 PM Reporting Lab: [place] [address] Performing Lab: [facility] [address] [facility] ([facility]) BASIC METABOLIC PANEL+MG GLUCOSE [MASS/VOLUM E] IN SERUM OR PLASMA 239 mg/dL 70 - 100 01/23 H Specimen Type: PLASMA No comment entered. Ordering Provider: AILIN CHESTER Report Released Date/Time: Jan 23, 2023 02:00 PM Reporting Lab: [facility] [address] Performing Lab: [facility] [address] [facility] ([facility]) BASIC METABOLIC PANEL+MG SODIUM [MOLES/VOLU ME] IN SERUM OR PLASMA 140 mmol/L 136 - 145 01/23 Specimen Type: PLASMA No comment entered. Ordering Provider: AILIN CHESTER Report Released Date/Time: Jan 23, 2023 02:00 PM Reporting Lab: [facility] [address] Performing Lab: [facility] [address] [facility] ([facility]) BASIC METABOLIC PANEL+MG POTASSIUM [MOLES/VOLU ME] IN SERUM OR PLASMA 5.1 mmol/L 3.5 - 5.1 01/23 Specimen Type: PLASMA No comment entered. Ordering Provider: AILIN CHESTER Report Released Date/Time: Jan 23, 2023 02:00 PM Reporting Lab: [facility] [address] Performing Lab: [facility] [address] [facility] ([facility]) BASIC METABOLIC PANEL+MG CHLORIDE [MOLES/VOLU ME] IN SERUM OR PLASMA 109 mmol/L 98 - 107 01/23 H Specimen Type: PLASMA No comment entered. Ordering Provider: AILIN CHESTER Report Released Date/Time: Jan 23, 2023 02:00 PM Reporting Lab: [place] [id number] Performing Lab: [address] ([facility]) BASIC METABOLIC PANEL+MG CARBON DIOXIDE, TOTAL [MOLES/VOLU ME] IN SERUM OR PLASMA 21 mmol/L 22 - 29 01/23 L Specimen Type: PLASMA No comment entered. Ordering Provider: AILIN CHESTER Report Released Date/Time: Jan 23, 2023 02:00 PM Reporting Lab: [place] [id number] Performing Lab: [address] ([facility]) BASIC METABOLIC PANEL+MG CALCIUM [MASS/VOLUM E] IN SERUM OR PLASMA 9.4 mg/dL 8.4 - 10.2 01/23 Specimen Type: PLASMA No comment entered. Ordering Provider: AILIN CHESTER Report Released Date/Time: Jan 23, 2023 02:00 PM Reporting Lab: [place] [phone] Performing Lab: [place] [phone] [facility] ([facility]) BASIC METABOLIC PANEL+MG MAGNESIUM [MASS/VOLUM E] IN SERUM OR PLASMA 1.7 mg/dL 1.6 - 2.6 01/23 Specimen Type: PLASMA No comment entered. Ordering Provider: AILIN CHESTER Report Released Date/Time: Jan 23, 2023 02:00 PM Reporting Lab: [place] [phone] Performing Lab: [address] ([facility]) BASIC METABOLIC PANEL+MG ANION GAP IN SERUM OR PLASMA 10 mmol/L 5 - 15 01/23 Specimen Type: PLASMA No comment entered. Ordering Provider: AILIN CHESTER Report Released Date/Time: Jan 23, 2023 02:00 PM Reporting Lab: [address] Performing Lab: [facility] [address] [facility] ([facility]) BASIC METABOLIC PANEL+MG GLOMERULAR FILTRATION RATE/1.73 SQ M.PREDICTED [VOLUME RATE/AREA] IN SERUM, PLASMA OR BLOOD BY CREATININE- BASED FORMULA (CKD-EPI 2020) 61 60 01/23 Specimen Type: PLASMA No comment entered. Ordering Provider: AILIN CHESTER Report Released Date/Time: Jan 23, 2023 02:00 PM Reporting Lab: [place] [phone] Performing Lab: [place] [phone] [facility] ([facility]) BNP NATRIURETIC PEPTIDE B [MASS/VOLUM E] IN SERUM OR PLASMA 1549 pg/mL <99 - 99 01/23 H Specimen Type: PLASMA No comment entered. Ordering Provider: AILIN CHESTER Report Released Date/Time: Jan 23, 2023 02:00 PM Reporting Lab: [place] [phone] Performing Lab: [place] [phone] [facility] ([facility]) MICROALBU MIN/CREAT ININE RATIO URINE CREATININE [MASS/VOLUM E] IN URINE 132.8 mg/dL 58.0 - 161.0 11/23 Specimen Type: URINE No comment entered. Ordering Provider: AILIN CHESTER Report Released Date/Time: Nov 23, 2022 11:58 AM Reporting Lab: [facility] [address] Performing Lab: [place] [phone] [facility] ([facility]) MICROALBU MIN/CREAT ININE RATIO URINE MICROALBUMI N/CREATININ E [MASS RATIO] IN URINE 28.0 mg/g{c reat} 11/23 Specimen Type: URINE No comment entered. Ordering Provider: AILIN CHESTER Report Released Date/Time: Nov 23, 2022 11:58 AM Reporting Lab: [place] [phone] Performing Lab: [facility] [phone] [facility] ([facility]) MICROALBU MIN/CREAT ININE RATIO URINE MICROALBUMI N [MASS/VOLUM E] IN URINE 37.2 mg/L 11/23 H Specimen Type: URINE No comment entered. Ordering Provider: AILIN CHESTER Report Released Date/Time: Nov 23, 2022 11:58 AM Reporting Lab: [facility] [address] Performing Lab: [facility] [phone] [facility] ([facility]) CBC LEUKOCYTES [#/VOLUME] IN BLOOD BY AUTOMATED COUNT 10.80 10*3/u L 4.0 - 11.0 11/23 Specimen Type: BLOOD No comment entered. Ordering Provider: AILIN CHESTER Report Released Date/Time: Nov 23, 2022 11:58 AM Reporting Lab: [facility] [address] Performing Lab: [address] [facility] ([facility]) CBC ERYTHROCYTE S [#/VOLUME] IN BLOOD BY AUTOMATED COUNT 3.87 10*6/u L 4.6 - 6.2 11/23 L Specimen Type: BLOOD No comment entered. Ordering Provider: AILIN CHESTER Report Released Date/Time: Nov 23, 2022 11:58 AM Reporting Lab: [facility] [address] Performing Lab: [facility] [address] [facility] ([facility]) CBC HEMOGLOBIN [MASS/VOLUM E] IN BLOOD 12.1 g/dL 13.5 - 17.9 11/23 L Specimen Type: BLOOD No comment entered. Ordering Provider: AILIN CHESTER Report Released Date/Time: Nov 23, 2022 11:58 AM Reporting Lab: [facility] [address] Performing Lab: [facility] [address] [facility] ([facility]) CBC HEMATOCRIT [VOLUME FRACTION] OF BLOOD BY AUTOMATED COUNT 37.5 41 - 54 11/23 L Specimen Type: BLOOD No comment entered. Ordering Provider: AILIN CHESTER Report Released Date/Time: Nov 23, 2022 11:58 AM Reporting Lab: [facility] [address] Performing Lab: [facility] [address] [facility] ([facility]) CBC MCV [ENTITIC VOLUME] BY AUTOMATED COUNT 96.9 fL 80 - 100 11/23 Specimen Type: BLOOD No comment entered. Ordering Provider: AILIN CHESTER Report Released Date/Time: Nov 23, 2022 11:58 AM Reporting Lab: [facility] [address] Performing Lab: [facility] [address] [facility]) CBC MCH [ENTITIC MASS] BY AUTOMATED COUNT 31.3 pg 27 - 33 11/23 Specimen Type: BLOOD No comment entered. Ordering Provider: AILIN CHESTER Report Released Date/Time: Nov 23, 2022 11:58 AM Reporting Lab: [facility] [address] Performing Lab: [facility] [address] [facility] ([facility]) CBC MCHC [MASS/VOLUM E] BY AUTOMATED COUNT 32.3 g/dL 32.0 - 37.5 11/23 Specimen Type: BLOOD No comment entered. Ordering Provider: AILIN CHESTER Report Released Date/Time: Nov 23, 2022 11:58 AM Reporting Lab: [facility] [address] Performing Lab: [facility] [address] [facility] ([facility]) CBC PLATELETS [#/VOLUME] IN BLOOD BY AUTOMATED COUNT 293 10*3/u L 150 - 400 11/23 Specimen Type: BLOOD No comment entered. Ordering Provider: AILIN CHESTER Report Released Date/Time: Nov 23, 2022 11:58 AM Reporting Lab: [facility] [address] Performing Lab: [facility] [address] [facility] ([facility]) CBC PLATELET MEAN VOLUME [ENTITIC VOLUME] IN BLOOD BY AUTOMATED COUNT 10.3 fL 7.4 - 10.4 11/23 Specimen Type: BLOOD No comment entered. Ordering Provider: AILIN CHESTER Report Released Date/Time: Nov 23, 2022 11:58 AM Reporting Lab: [facility] [address] Performing Lab: [facility] [address] [facility] ([facility]) CBC ERYTHROCYTE DISTRIBUTIO N WIDTH [RATIO] BY AUTOMATED COUNT 13.2 11.5 - 14.5 11/23 Specimen Type: BLOOD No comment entered. Ordering Provider: AILIN CHESTER Report Released Date/Time: Nov 23, 2022 11:58 AM Reporting Lab: [facility] [address] Performing Lab: [facility] [address] [facility] ([facility]) COMPREHEN SIVE METABOLIC PANEL+MG CREATININE [MASS/VOLUM E] IN SERUM OR PLASMA 1.2 mg/dL 0.7 - 1.2 11/23 Specimen Type: PLASMA No comment entered. Ordering Provider: AILIN CHESTER Report Released Date/Time: Nov 23, 2022 11:58 AM Reporting Lab: [facility] [address] Performing Lab: [place] [phone] [facility] ([facility]) COMPREHEN SIVE METABOLIC PANEL+MG UREA NITROGEN [MASS/VOLUM E] IN SERUM OR PLASMA 34 mg/dL 8 - 26 11/23 H Specimen Type: PLASMA No comment entered. Ordering Provider: AILIN CHESTER Report Released Date/Time: Nov 23, 2022 11:58 AM Reporting Lab: [facility] [address] Performing Lab: [facility] [address] [facility] ([facility]) COMPREHEN SIVE METABOLIC PANEL+MG GLUCOSE [MASS/VOLUM E] IN SERUM OR PLASMA 54 mg/dL 70 - 100 11/23 L Specimen Type: PLASMA No comment entered. Ordering Provider: AILIN CHESTER Report Released Date/Time: Nov 23, 2022 11:58 AM Reporting Lab: [facility] [address] Performing Lab: [facility] [address] [facility] ([facility]) COMPREHEN SIVE METABOLIC PANEL+MG SODIUM [MOLES/VOLU ME] IN SERUM OR PLASMA 143 mmol/L 136 - 145 11/23 Specimen Type: PLASMA No comment entered. Ordering Provider: AILIN CHESTER Report Released Date/Time: Nov 23, 2022 11:58 AM Reporting Lab: [facility] [address] Performing Lab: [facility] [phone] [place] [address] ([facility]) COMPREHEN SIVE METABOLIC PANEL+MG POTASSIUM [MOLES/VOLU ME] IN SERUM OR PLASMA 4.4 mmol/L 3.5 - 5.1 11/23 Specimen Type: PLASMA No comment entered. Ordering Provider: AILIN CHESTER Report Released Date/Time: Nov 23, 2022 11:58 AM Reporting Lab: [address] Performing Lab: [address] [place] [address] ([facility]) COMPREHEN SIVE METABOLIC PANEL+MG CHLORIDE [MOLES/VOLU ME] IN SERUM OR PLASMA 107 mmol/L 98 - 107 11/23 Specimen Type: PLASMA No comment entered. Ordering Provider: AILIN CHESTER Report Released Date/Time: Nov 23, 2022 11:58 AM Reporting Lab: [place] [id number] Performing Lab: [address] ([facility]) COMPREHEN SIVE METABOLIC PANEL+MG CARBON DIOXIDE, TOTAL [MOLES/VOLU ME] IN SERUM OR PLASMA 23 mmol/L 22 - 29 11/23 Specimen Type: PLASMA No comment entered. Ordering Provider: AILIN CHESTER Report Released Date/Time: Nov 23, 2022 11:58 AM Reporting Lab: [address] Performing Lab: [address] ([facility]) COMPREHEN SIVE METABOLIC PANEL+MG CALCIUM [MASS/VOLUM E] IN SERUM OR PLASMA 9.7 mg/dL 8.4 - 10.2 11/23 Specimen Type: PLASMA No comment entered. Ordering Provider: AILIN CHESTER Report Released Date/Time: Nov 23, 2022 11:58 AM Reporting Lab: [place] [phone] Performing Lab: [address] [facility] ([facility]) COMPREHEN SIVE METABOLIC PANEL+MG PROTEIN [MASS/VOLUM E] IN SERUM OR PLASMA 7.2 g/dL 6.0 - 8.3 11/23 Specimen Type: PLASMA No comment entered. Ordering Provider: AILIN CHESTER Report Released Date/Time: Nov 23, 2022 11:58 AM Reporting Lab: [facility] [address] Performing Lab: [facility] [address] [facility] ([facility]) COMPREHEN SIVE METABOLIC PANEL+MG ALBUMIN [MASS/VOLUM E] IN SERUM OR PLASMA 4.1 g/dL 3.5 - 5.2 11/23 Specimen Type: PLASMA No comment entered. Ordering Provider: AILIN CHESTER Report Released Date/Time: Nov 23, 2022 11:58 AM Reporting Lab: [place] [phone] Performing Lab: [facility] [phone] [facility] ([facility]) COMPREHEN SIVE METABOLIC PANEL+MG BILIRUBIN.T OTAL [MASS/VOLUM E] IN SERUM OR PLASMA 0.5 mg/dL 0.2 - 1.2 11/23 Specimen Type: PLASMA No comment entered. Ordering Provider: AILIN CHESTER Report Released Date/Time: Nov 23, 2022 11:58 AM Reporting Lab: [facility] [address] Performing Lab: [facility] [address] [facility] ([facility]) COMPREHEN SIVE METABOLIC PANEL+MG MAGNESIUM [MASS/VOLUM E] IN SERUM OR PLASMA 1.4 mg/dL 1.6 - 2.6 11/23 L Specimen Type: PLASMA No comment entered. Ordering Provider: AILIN CHESTER Report Released Date/Time: Nov 23, 2022 11:58 AM Reporting Lab: [facility] [address] Performing Lab: [facility] [address] [facility] ([facility]) COMPREHEN SIVE METABOLIC PANEL+MG ANION GAP IN SERUM OR PLASMA 13 mmol/L 5 - 15 11/23 Specimen Type: PLASMA No comment entered. Ordering Provider: AILIN CHESTER Report Released Date/Time: Nov 23, 2022 11:58 AM Reporting Lab: [facility] [address] Performing Lab: [facility] [address] [facility] ([facility]) COMPREHEN SIVE METABOLIC PANEL+MG ALKALINE PHOSPHATASE [ENZYMATIC ACTIVITY/VO LUME] IN SERUM OR PLASMA 87 U/L 40 - 150 11/23 Specimen Type: PLASMA No comment entered. Ordering Provider: AILIN CHESTER Report Released Date/Time: Nov 23, 2022 11:58 AM Reporting Lab: [facility] [address] Performing Lab: [facility] [address] [facility] ([facility]) COMPREHEN SIVE METABOLIC PANEL+MG ALANINE AMINOTRANSF ERASE [ENZYMATIC ACTIVITY/VO LUME] IN SERUM OR PLASMA 28 U/L 11/23 Specimen Type: PLASMA No comment entered. Ordering Provider: AILIN CHESTER Report Released Date/Time: Nov 23, 2022 11:58 AM Reporting Lab: [facility] [address] Performing Lab: [facility] [address] [facility] ([facility]) COMPREHEN SIVE METABOLIC PANEL+MG ASPARTATE AMINOTRANSF ERASE [ENZYMATIC ACTIVITY/VO LUME] IN SERUM OR PLASMA 33 U/L 11/23 Specimen Type: PLASMA No comment entered. Ordering Provider: AILIN CHESTER Report Released Date/Time: Nov 23, 2022 11:58 AM Reporting Lab: [facility] [address] Performing Lab: [facility] [address] [facility] ([facility]) COMPREHEN SIVE METABOLIC PANEL+MG GLOMERULAR FILTRATION RATE/1.73 SQ M.PREDICTED [VOLUME RATE/AREA] IN SERUM, PLASMA OR BLOOD BY CREATININE- BASED FORMULA (CKD-EPI 2020) 61 11/23 Specimen Type: PLASMA No comment entered. Ordering Provider: AILIN CHESTER Report Released Date/Time: Nov 23, 2022 11:58 AM Reporting Lab: [facility] [address] Performing Lab: [facility] [address] [facility] ([facility]) HEMOGLOBI N A1C HEMOGLOBIN A1C/HEMOGLO BIN.TOTAL IN BLOOD 7.4 4.0 - 6.0 11/23 H Specimen Type: BLOOD Comment: Values obtained from A1C measurement s can vary. For typical A1C assays, a reported value of 7.0 could actually be between 6.7 and 7.3 if measured by a reference method. A reported value of 9.0 could actually be between 8.7 and 9.3. Ref: [email or web address] Ordering Provider: AILIN CHESTER Report Released Date/Time: Nov 23, 2022 11:58 AM Reporting Lab: [facility] [address] Performing Lab: [facility] [address] [facility] ([facility]) LIPID PANEL,NON -FASTING CHOLESTEROL [MASS/VOLUM E] IN SERUM OR PLASMA 130 mg/dL 11/23 Specimen Type: PLASMA No comment entered. Ordering Provider: AILIN CHESTER Report Released Date/Time: Nov 23, 2022 11:58 AM Reporting Lab: [facility] [address] Performing Lab: [facility] [address] [facility]) LIPID PANEL,NON -FASTING CHOLESTEROL IN HDL [MASS/VOLUM E] IN SERUM OR PLASMA 39 mg/dL 11/23 L Specimen Type: PLASMA No comment entered. Ordering Provider: AILIN CHESTER Report Released Date/Time: Nov 23, 2022 11:58 AM Reporting Lab: [facility] [address] Performing Lab: [facility] [address] [facility]) LIPID PANEL,NON -FASTING CHOLESTEROL IN LDL [MASS/VOLUM E] IN SERUM OR PLASMA BY CALCULATION 73 mg/dL 11/23 Specimen Type: PLASMA No comment entered. Ordering Provider: AILIN CHESTER Report Released Date/Time: Nov 23, 2022 11:58 AM Reporting Lab: [facility] [phone] Performing Lab: [facility] [address] [facility] ([facility]) LIPID PANEL,NON -FASTING CHOLESTEROL IN VLDL [MASS/VOLUM E] IN SERUM OR PLASMA BY CALCULATION 18 mg/dL 11/23 Specimen Type: PLASMA No comment entered. Ordering Provider: AILIN CHESTER Report Released Date/Time: Nov 23, 2022 11:58 AM Reporting Lab: [facility] [address] Performing Lab: [facility] [phone] [facility] ([facility]) LIPID PANEL,NON -FASTING CHOLESTEROL NON HDL [MASS/VOLUM E] IN SERUM OR PLASMA 91 mg/dL 11/23 Specimen Type: PLASMA No comment entered. Ordering Provider: AILIN CHESTER Report Released Date/Time: Nov 23, 2022 11:58 AM Reporting Lab: [facility] [phone] Performing Lab: [facility] [phone] [facility] ([facility]) LIPID PANEL,NON -FASTING TRIGLYCERID E [MASS/VOLUM E] IN SERUM OR PLASMA 92 mg/dL 11/23 Specimen Type: PLASMA No comment entered. Ordering Provider: AILIN CHESTER Report Released Date/Time: Nov 23, 2022 11:58 AM Reporting Lab: [facility] [phone] Performing Lab: [facility] [phone] G[facility] ([facility]) TSH W/REFLEX TO FREE T4 THYROTROPIN [UNITS/VOLU ME] IN SERUM OR PLASMA 4.59 u[IU]/ mL 0.35 - 4.94 11/23 Specimen Type: PLASMA No comment entered. Ordering Provider: AILIN CHESTER Report Released Date/Time: Nov 23, 2022 11:58 AM Reporting Lab: [facility] [phone] Performing Lab: [facility] [phone] GEM ([facility]) Vital Signs Combined list of inpatient [...] list of: 1) Encounters from Department of [facility] [facility] Affairs facilities going back up to thelast 18 months. 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 Location Location Details Encounter Type Encounter Number Reason For Visit Attending Provider ADM Date DC Date Status Disposition Source [facility] Outpatient Encounter [id number] [facility] [id number]11 [facility] [place] [facility] Outpatient Encounter [id number] ZARI POWER 11/16 [facility] Outpatient Encounter [id number] 11/21 [facility] ([facility] OFFICE O/P EST MOD 30-39 MIN [id number] Diagnos is: ICD-10- CM Z00.00 Encntr for general adult medical exam w/o abnorma l finding s
CANDELARIO CHESTER 11/23 [place] [facility] [place] [facility] GAIT TRAINING THERAPY [id number] Diagnos is: ICD-10- CM R26.89 Other abnorma lities of gait and mobilit y
TRINOOMAYRA MCDERMOTT V 11/23 [place] ([facility]) [place] [facility] Outpatient Encounter [id number] SA TRINO RA R 12/11 [place] [facility] [place] [facility] Outpatient Encounter [id number] 12/25 [place] [facility] [place] [facility] Outpatient Encounter [id number] SA TRINO RA R 12/28 [place] [facility] [place] [facility] Outpatient Encounter [id number] 01/05 [place] [facility] [place] [facility] Outpatient Encounter [id number] 01/11 [place] [facility] [place] [facility] Outpatient Encounter [id number] 01/16 [place] [facility] [place] ([facility]) OFFICE O/P EST HI 40-54 MIN [id number] Diagnos is: ICD-10- CM I50.9 Heart failure , unspeci fied
CANDELARIO CHESTER 01/23 [place] ([facility]) [place] [facility] Outpatient Encounter [id number] Marcus POTTS I 01/24 [place] [facility] [place] [facility] Outpatient Encounter [id number] Danica TORRE 02/05 [place] [facility] [place] [facility] Outpatient Encounter [id number] 02/09 [place] [facility] [place] [facility] Outpatient Encounter [id number] Danica TORRE 02/09 [place] [facility] [place] [facility] Outpatient Encounter [id number] 02/14 [place] [facility] [place] [facility] Outpatient Encounter [id number] 02/15 [place] [place] [facility] Outpatient Encounter [id number] 02/19 [place] [facility] [place] [facility] Outpatient Encounter [id number] 02/20 [place] [facility] [place] [facility] Outpatient Encounter [id number] 02/20 [place] [facility] [place] [facility] Outpatient Encounter [id number] 02/20 [place] [facility] [place] [facility] Outpatient Encounter [id number] 02/20 [place] [facility] [place] [facility] Outpatient Encounter [id number] 02/21 [place] [facility] [place] [facility] QNHP OL DIG ASSMT&MGMT 5-10 [id number] Diagnos is: ICD-10- CM E11.9 Type 2 diabete s mellitu s without complic ations< br/> HARDER,SIVA LY 02/22 [place] [facility] PRO PHONE CALL 11-20 MIN [id number] Diagnos is: ICD-10- CM I50.9 Heart failure , unspeci fied
JERMAINE ALCANTAR ANDMARIA INES M 02/23 [place] ([facility] [place] [facility] Outpatient Encounter [id number] 02/26 [place] [facility] [place] [facility] Outpatient Encounter [id number] 03/01 [place] [facility] [place] [facility] Outpatient Encounter [id number] 03/05 [place] [facility] [place] [facility] Outpatient Encounter [id number] SA RA Sandra JAMESON 03/09 [place] [facility] [place] [facility] Outpatient Encounter [id number] 03/14 [place] [facility] [place] [facility] Outpatient Encounter [id number] TRINO R 04/12 [facility] [place] [facility] Outpatient Encounter [id number] [facility] R 04/16 [facility] [place] [facility] Outpatient Encounter [id number] [facility] R 05/01 [facility] [place] [facility] Outpatient Encounter [id number] 07/11 [facility] [place] [facility] Outpatient Encounter [id number] [facility] [place] [facility] Outpatient Encounter [id number] 07/12 [facility] PRO PHONE CALL 5-10 MIN [id number] Diagnos is: ICD-10- CM 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
VIV BARFIELD 07/19 [facility] HEARING AID REPAIR/MOD IFYING [id number] Diagnos is: ICD-10- CM 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
CARY CORCORAN 08/09 [facility] HEARING AID FITTING/CH ECKING [id number] Diagnos is: ICD-10- CM 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
Sy MAKI 09/17 [facility] [place] [facility] Outpatient Encounter [id number] 10/17 [facility] ([facility]) OFFICE O/P EST HI 40 MIN [id number] Diagnos is: ICD-10- CM E11.9 Type 2 diabete s mellitu s without complic ations< br/> CANDELARIO CHESTER 11/07 [place] ([facility]) [place] ([facility]) PT EVAL MOD COMPLEX 30 MIN [id number] Diagnos is: ICD-10- CM Z74.09 Other reduced mobilit y
OMAYRA JAMESON NTER V 12/17 [place] ([facility]) [facility] Outpatient Encounter [id number] 01/03 [facility] [place] [facility] Outpatient Encounter [id number] 01/09 [facility] WHEELCHAIR MNGMENT TRAINING [id number] Diagnos is: ICD-10- CM R53.1 Weaknes s
ANDERS EATON R 01/29 [facility] Outpatient Encounter [id number] 01/30 [facility] HEARING AID CHECK BOTH EARS [id number] Diagnos is: ICD-10- CM Z46.1 Encount er for fitting and adjustm ent of hearing aid<br/ > SUZY BLACK AEL F 02/01 [facility] Outpatient Encounter [id number] SA TRINO RA R 02/11 [facility] [place] [facility] Outpatient Encounter [id number] 02/25 [facility] [place] [facility] Outpatient Encounter [id number] JYOTSNA SMART 03/10 [facility] ([facility]) OFFICE O/P EST MOD 30 MIN [id number] Diagnos is: ICD-10- CM L89.623 Pressur e ulcer of left heel, stage 3
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
CIARA BALDERRAMA J 03/20 [facility] HEARING AID REPAIR/MOD IFYING [id number] Diagnos is: ICD-10- CM 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
KEIRA JEAN 04/01 [facility] WHEELCHAIR MNGMENT TRAINING [id number] Diagnos is: ICD-10- CM R53.1 Weaknes s
ANDERS EATON R 04/07 [facility] Outpatient Encounter [id number] 04/23 [facility] Social History Combined list of available smoking, tobacco, and other social history from [employer] of [employer] and [facility] Affairs facilities. Social History Type Response Date Comment [facility] e Tobacco smoking status NHIS VA-TOBACCO FORMER USER 11/08/2023 [place] ([facility]) History of tobacco use VA-TOBACCO QUIT 1 5 YRS OR MORE 11/08/2023 [place] ([facility]) History of tobacco use VA-TOBACCO FORMER USER 11/23/2022 [place] ([facility]) History of tobacco use VA-TOBACCO FORMER USER 11/29/2021 [place] ([facility]) History of tobacco use VA-TOBACCO QUIT 1 5 YRS OR MORE 10/21/2020 [facility] ([facility])
--- OUTSIDE RECORDS SUMMARY | 2024-05-05 13:14 | XMS_ITS | Encounter Summary ---
Author Name [facility] [place] [facility] [place] Address [address] [place] [address] Care Team Providers Care Soft Sugar Cutter Name Role Phone JIMENEZ CHESTER Primary [...] Name Patient's Relationship to Policy Cherry [facility] (WNR) MEDICARE ADVANTAGE [facility] (WNR) May 14, 2020 [id number] [phone] PITER CASAS ERD PATIENT Selected Encounter This section includes the information on record at [place] for the Encounter. Date/Time Encounter Type Encounter Description Reason Provider Source Apr 01, 2024 07:10 AM Outpatient Encounter PM&RS PHYSICIAN ICD-10-CM Z89.511 Acquired absence of right leg below knee JUAN JEAN [facility] Encounter Template Text not used by [place] Assessments - Encounter Diagnoses This section includes the primary and secondary diagnoses documented for the Encounter. Date/Time Primary/Secondary Diagnosis Diagnosis Name Provider Source Apr 01, 2024 07:13 AM PRIMARY Acquired absence of right leg below knee JUAN JEAN [facility] Plan of Treatment: Future Appointments (+ 6 months) and Future Tests (+/- 45 days) The Plan of Treatment section includes future care activities for the patient from all [place] treatmentfacilities. This section includes future appointments and future orders which are active, pending or scheduled. Future Appointments This section includes appointments that were scheduled to occur 6 months from the date of the Encounter, up to a maximum of 20 appointments. The data comes from all [facility] facilities. Appointment Date/Time Appointment Type Appointme nt Facility Name Apr 07, 2024 10:30 AM AMBULATORY - REHAB [facility] Encounter Notes: All associated encounter notes [...] position of a minivan vehicle via his [employer] Stret[place] PWC includes: Vet and plan to purchase a 2023 [employer] [place] 1. Full wheelchair-accessible minivan conversion package (i.e., lowered floors, lowered doors, keyless entry, power sliding doors) with standard 54-inch side-entry door opening height with power fold-out vs. power in-floor ramp. 2. Q'Straint QLK, EZ-Lock, or equivalent, wheelchair docking system for vet's [employer] Q6 Edge 3 PWC, with program development specialist positioned in front passenger- side position of vehicle. 3. Seat belt program development specialist extension secured to floor via in-floor [...] LISANDRA GUTIERREZ PROSTHETIC REP (TCF) JUAN JEAN [facility]
--- OUTSIDE RECORDS SUMMARY | 2024-05-05 13:14 | XMS_ITS | Encounter Summary ---
Author Name [facility] [place] [facility] [place] Address [address] [place] [address] Care Team Providers Care Baby Sitter Name Role Phone JIMENEZ CHESTER Primary Care [...] Cherry's Name Patient's Relationship to Policy Cherry [facility] (WNR) MEDICARE ADVANTAGE [facility] (WNR) May 14, 2020 [id number] [phone] PITER CASAS ERD PATIENT Selected Encounter This [...] 20 appointments. The data comes from all [place] treatment facilities. Appointment Date/Time Appointment Type Appointme nt Facility Name Mar 11, 2024 11:30 AM AMBULATORY - MEDICINE [facility] ([facility]) Mar 18, 2024 07:01 AM [facility] Mar 20, 2024 09:[facility] Mar 20, 2024 02:30 PM [facility] Apr 07, 2024 10:30 AM [facility] - [facility] Immunizations: All administered on the encounter date This section contains immunizations associated to the Encounter. Immunization Series Date Issued Reaction Comments COVID-19 (PFIZER), MRNA, LNP -S, PF, NAVYA-SUCROSE, 30 MCG/0.3 ML (AGES 12+ YEARS) Feb 26, 2024 INFLUENZA, ADJUVANTED, TRIVALENT, PF Feb 25 24
--- OUTSIDE RECORDS SUMMARY | 2024-05-05 13:15 | XMS_ITS | Data Portability ---
Author Organization [place] - [facility], [employer] Address [address] [facility] [place] [address] Assessment Encounter Date Assessment Date Assessment LastModified by Organization Details LastModified Time 10/05/2022 10/05/2022 Pt. educated on offloading. Modifications made to Insoles . Ulcers debrided today. Follow for diabetic foot care. Keflex refilled today.. Sx shoe use to continue., Dry sterile dressing applied. Follow [address] cox [email or web address] Not available 10/06/2022 15:12:31 10/11/2022 10/11/2022 Discussed with the patient his diagnosis as detailed down below. Informed him at this time we will proceed with interdigital lind's wool application and betadine on a daily basis. The patient will continue with weightbearing restrictions in the form of the use of a post operative shoe and reduced activities for no more than 4 hours spread throughout the day. Due to non palpable pulses and reduced capillary refill I will also send an TRAN order to [facility] for further assessment. The patient will be seen back in 10 days for further assessment and will contact with any questions or concerns. I did discuss that we will proceed with flexor tenotomy procedures once the toe has healed for definitive management. I did discuss that we could pursue a 5th metatarsal head resection to the right foot for definitive management of his tailor's bunion and pre ulcerative lesion as well. [email or web address] Not available 10/11/2022 11:29:06 10/20/2022 10/20/2022 Discussed with the patient his diagnosis as detailed down below. Informed him at this time we will proceed with interdigital lind's wool application and betadine on a daily basis. The patient will continue with weightbearing restrictions in the form of the use of a post operative shoe and reduced activities for no more than 4 hours spread throughout the day. Due to non palpable pulses and reduced capillary refill I will also send an TRAN order to [facility] for further assessment. The patient will be seen back in 10 days for further assessment and will contact with any questions or concerns. I did discuss that we will proceed with flexor tenotomy procedures once the toe has healed for definitive management. I did discuss that we could pursue a 5th metatarsal head resection to the right foot for definitive management of his tailor's bunion and pre ulcerative lesion as well. Overall there is some loosening of the previous non stage able pressure ulcerations and we will continue to monitor at this time. Not available 10/21/2022 12:42:37 11/02/2022 11/02/2022 Discussed with the patient his diagnosis as detailed down below. Informed him at this time we will proceed with interdigital lind's wool application and betadine on a daily basis. The patient will continue with weightbearing restrictions in the form of the use of a post operative shoe and reduced activities for no more than 4 hours spread throughout the day. Due to non palpable pulses and reduced capillary refill I will also send an TRAN order to [facility] for further assessment. The patient will be seen back in 3 weeks for further assessment and will contact with any questions or concerns. I did discuss that we will proceed with flexor tenotomy procedures once the toe has healed for definitive management. I did discuss that we could pursue a 5th metatarsal head resection to the right foot for definitive management of his tailor's bunion and pre ulcerative lesion as well. Overall there is substantial improvement of the previous non stage able pressure ulcerations and we will continue to monitor at this time. 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 Not available 11/02/2022 19:00:31 11/22/2022 11/22/2022 Discussed with the patient his diagnosis as detailed down below. Informed him at this time we will proceed with interdigital lind's wool application and betadine on a daily basis. The patient will continue with weightbearing restrictions in the form of the use of a post operative shoe and reduced activities for no more than 4 hours spread throughout the day. The patient will be seen back in 3 weeks for further assessment and will contact with any questions or concerns. I did discuss that we will proceed with flexor tenotomy procedures once the toe has healed for definitive management. I did discuss that we could pursue a 5th metatarsal head resection to the right foot for definitive management of his tailor's bunion and pre ulcerative lesion as well. Overall there is improvement of the previous non stage able pressure ulcerations and we will continue to monitor at this time. 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 The patient does have an appointment with Vascular surgery and I agree with keeping this moving forward. Not available 11/22/2022 15:29:20 Plan of Treatment Reminders Order Date Submit Date Provider Last Modified By Organization Details Last Modified Time Details Appointments None recorded. Lab None recorded. Referral None recorded. Procedures None recorded. Surgeries None recorded. Imaging None recorded. Medication Orders cephalexin 500 mg capsule 2022 023 [id number], [address] [place], [place], [id number], 15:11:55 Patient TargetsNo targets recorded. Patient InstructionsNo instructions recorded. Reason for Referral None Reported. Results Created Date Observation Date Name Description Value Unit Range Abnormal Flag Note LastModifiedBy Organization Detail LastModifiedTime 10/12/[address] for refer ral* No observ ation record ed. [email or web address] Not Available 2022 11:46:14 11/16/19 23 11/08/2022 imagi ng/di agnos tic resul t No observ ation record ed. Not Available 11/15 16:27:18 11/16/19 23 11/15/2022 imagi ng/di agnos tic resul t No observ ation record ed. [facility] [address] , [place], [address], 11/17/2022 22:34:59 Result Notes None recorded. Problems Name Problem SNOMED Code Status Onset Date Resolution Date Notes Provider Name and Address Organization Details Recorded Time Diabetic care Active [address] Man 08/01/22 Elaina Torito null, [place] - [facility] 3 11:36:50 Onychomyc osis of toenails 051757153 Active 2018 Onychomyco sis of toenails; Original Code: 0868132004 Original Codesystem : SNOMED CT Classif ication: Medical Co nfirmation Status: Confirmed Not Available [facility] 3 08:53:59 Pressure ulcer stage 1 Active 2018 Pressure ulcer stage 1; Original Code: 9388091464 Original Codesystem : SNOMED CT Classif ication: Medical Co nfirmation Status: Confirmed Not Available [facility] 3 08:53:59 Type 2 diabetes mellitus 42219146 Active 2018 Type 2 diabetes mellitus; Original Code: 405031546 Original Codesystem : SNOMED CT Classif ication: Medical Co nfirmation Status: Confirmed Not Available [facility] 3 08:54:00 Notes:Diabetic neuropathy Or iginal Code: 139697768 Original Codesystem: SNOMED CT Classification: Medical Confirmation Status: Confirmed Problem Notes None recorded. Procedures Surgical History Date Name Laterality Status Provider Name and Address Organization Details Recorded Time 3 Ulcer Care completed Luis Carlos Valdovinos DPM [address] [place], [address], [facility] - [facility] 10/06/2022 15:08:57 3 Ulcer Care completed Luis Carlos Valdovinos DPM [address] [place], [address], [facility] - [facility] 09/28/2022 14:10:21 3 Ulcer Care completed Luis Carlos Valdovinos DPM [address] [place], [address], [place] - [facility] 07/14/2022 20:33:33 3 Ulcer Care completed Luis Carlos Valdovinos DPM [address] [place], [address], [facility] - [facility] 06/30/2022 12:06:[address] Rand completed Luis Carlos Valdovinos DPM [address] [place], [address], [place] - [facility] 06/30/2022 12:01:28 Imaging Results Imaging Date Name Status LastModified by Organiz ation Details LastModified Time 10/11/2022 request for referral* completed [email or web address] Information not available 10/11/2022 11:46:14 11/08/2022 imaging/diag nostic result active Information not available 11/15/2022 16:27:18 11/15/2022 imaging/diag nostic result active [facility] [address] , [place], [address], 11/17/2022 22:34:59 Procedure Notes None recorded. Medical Equipment None Reported. Allergies No known drug allergies Medications Name Sig Start Date Stop Date Status Note LastModified by Organization Details LastModified Time atorvastatin 40 mg tablet TAKE 1 TABLET BY MOUTH EVERY DAY active Not Available Not Available No t Available metoprolol succinate ER 50 mg tablet,exten ded release 24 hr TAKE 1 TABLET BY MOUTH ONCE DAILY active Not Available Not Available No t Available hydrochlorot hiazide 50 mg tablet TAKE 1 TABLET BY MOUTH ONCE DAILY active Not Available Not Available No t Available glipizide 10 mg tablet TAKE 1 TABLET BY MOUTH TWICE DAILY BEFORE MEALS active Not Available Not Available No t Available triamcinolon e acetonide 0.1 % topical cream APPLY TO AFFECTED AREA ON LOWER LEGS 1-2X DAILY FOR 2 WEEKS AT A TIME REPEAT NEEDED FOR FLARES active Not Available Not Available No t Available amoxicillin 875 mg tablet active Not Available Not Available Not Available cephalexin 500 mg capsule Take 1 capsule 3 times a day by oral route as directed for 10 days. active Not Available Not Available No t Available metformin 1,000 mg tablet TAKE 1 TABLET BY MOUTH TWICE DAILY WITH MEALS active Not Available Not Available No t Available nitroglyceri n 0.[address] 1 TABLET UNDER THE TONGUE EVERY 5 MINUTES NEEDED FOR CHEST FOR PAIN. MAY REPEAT X 2. IF NO RELIEF AFTER 3 TABLET CALL 911 active Not Available Not Available No t Available gabapentin 300 mg capsule active Not Available Not Available Not Available mupirocin 2 % topical ointment APPLY TO BIOPSY SITES 1-2X DAILY UNTIL WELL HEALED active Not Available Not Available Not Available gabapentin 100 mg capsule TAKE 1 CAPSULE BY MOUTH THREE TIMES DAILY INCREASE OVER 3 WEEKS TO 3 CAPSULES BY MOUTH THREE TIMES DAILY active Not Available Not Available Not Available ketoconazole 2 % topical cream APPLY TO AFFECTED AREA BETWEEN EYEBROWS 1-2X DAILY FOR 2 WEEKS AT A TIME REPEAT NEEDED FOR FLARES active Not Available Not Available No t Available lisinopril 40 mg tablet TAKE 1 TABLET BY MOUTH ONCE DAILY active Not Available Not Available No t Available Novolog FlexPen U-100 Insulin aspart 100 unit/mL (3 mL) subcutaneous INJECT 8 TO 10 UNITS SUBCUTANEOU S THREE TIMES DAILY BEFORE MEALS active Not Available Not Available No t Available Novofine 32 32 gauge x 1/4 needle USE FOUR TIMES DAILY active Not Available Not Available Not Available Contour Next Test Strips TEST 4 TIMES EVERY DAY active Not Available Not Available No t Available Basaglar KwikPen U-100 Insulin 100 unit/mL (3 mL) subcutaneous INJECT 12 UNITS UNDER THE SKIN BEFORE BEDTIME active Not Available Not Available No t Available Vitals None Recorded Social History None recorded. Functional Status None recorded. Mental Status None recorded. Family History Nothing Reported. Medical History No medical history recorded. Past Encounters Encounter ID Performer Location Encounter Start Date Encounter Closed Date Diagnosis/Indication Diagnosis SNOMED-CT Code Diagnosis ICD10 Code [id number] Luis Carlos Valdovinos DPM [employer] [facility] [address] [place] [address] 03/21/2022 16:04:53 03/21/2022 17:26:17 Disorder of nervous system due to type 2 diabetes mellitus 157157760 E11.42 Onychomycosis 922172418 B35.1 Acquired h ammer toe of right foot 8607155599 440681 M20.41 Acquired h ammer toe of left foot 4578444437 163805 M20.42 [id number] SAN[address] Shaw [employer] [facility] [address] [place] [address] 4 06/29/2022 11:49:44 06/30/2022 12:42:33 Disorder of nervous system due to type 2 diabetes mellitus 164443777 E11.42 Onychomycosis 394891835 B35.1 Acquired h ammer toe of right foot 9498987411 381098 M20.41 Acquired h ammer toe of left foot 1411577892 930386 M20.42 Foot ulcer due to type 2 diabetes mellitus 0675589824 100 E11.621 [id number] [facility] [address] [place] [address] 07/13/2022 12:14:14 07/17/2022 12:10:45 Pain in right foot 8951144013 02187 M79.671 Peripheral neuropathy due to type 2 diabetes mellitus 9337652243 107 E11.42 Diabetic foot ulcer 3710 22864 E13.621 [id number] Luis Carlos Valdovinos [facility] [address] [place] [address] 4 09/28/2022 11:23:39 09/29/2022 10:30:07 Cellulitis of toe of right foot 6560624072 1080960 L03.031 Pain in right foot 19820 14075 24586 M79.671 Peripheral neuropathy due to type 2 diabetes mellitus 3656553192 107 E11.42 Diabetic foot ulcer 3710 79886 E13.621 [id number] [facility] [facility] [address] [place] [address] 4 10/05/2022 10:25:28 10/10/2022 10:22:50 Cellulitis of toe of right foot 3184055781 0730066 L03.031 Pain in right foot 39732 13244 05521 M79.671 Peripheral neuropathy due to type 2 diabetes mellitus 7390035418 107 E11.42 Diabetic foot ulcer 3710 04114 E13.621 [id number] [address] [facility] [address] [place] [address] 4 10/11/2022 10:29:08 10/16/2022 16:43:21 Peripheral neuropathy due to type 2 diabetes mellitus 4010826968 107 E11.42 Foot ulcer due to type 2 diabetes mellitus 8081366732 100 E11.621 Hammer toe 689223562 M20 .41 M20.42 [id number] [facility] [address] [place] [address] 10/20/2022 15:29:18 10/24/2022 10:21:05 Foot ulcer due to type 2 diabetes mellitus 6540870502 100 E11.621 Peripheral neuropathy due to type 2 diabetes mellitus 2137262801 107 E11.42 Hammer toe 725370082 M20 .41 M20.42 [id number] Fabian Cox DPM [facility] Office [address] [facility] [place] [place] [address] 11/02/2022 15:08:49 11/03/2022 09:58:00 Foot ulcer due to type 2 diabetes mellitus 4736694276 100 E11.621 Peripheral neuropathy due to type 2 diabetes mellitus 7833034102 107 E11.42 Hammer toe 017708682 M20 .41 M20.42 [id number] Fabian Cox DPM [place] Office [address] [address] 11/22/2022 15:00:18 11/23/2022 10:17:01 Foot ulcer due to type 2 diabetes mellitus 6385752424 100 E11.621 Peripheral neuropathy due to type 2 diabetes mellitus 0237933914 107 E11.42 Hammer toe 993060619 M20 .41 M20.42 Health Concerns Section Related Observation LastModified by Organization Detai ls LastModified Time None Recorded Concern Status LastModified by Organization Details LastModified Time None Recorded Advance Directives Directive None Recorded Payers Encounter Date Sequence Insurance Name Policy Number Policy Cherry Covered Member ID Cherry Member ID Guarantor Name 10/05/2022 1 [employer] [id number] Wilferd D Dahl [id number] Wilferd Dahl 10/11/2022 1 [place] [id number] Wilferd D Dahl [id number] Wilferd Dahl 10/20/2022 1 [place] [id number] Wilferd D Dahl [id number] Wilferd Dahl 11/02/2022 1 [place] [id number] Wilferd D Dahl [id number] Wilferd Dahl 11/22/2022 1 [place] [id number] Wilferd D Dahl [id number] Wilferd Dahl Notes Date Note Type Note Provider Name and Address Organization Details Recorded Time 10/05/2022 text/html Pt. seen for [facility] ulcer care. Chronic diabetic foot ulcer. Recent ulcer right forefoot related to crest pad and too tight application of elastic band over toes. Erythema and swelling reducing right forefoot. Pt. no longer feels pain in foot. Tolerating antibiotics well. Luis Carlos Valdovinos, DICK [address] [place], [address], [facility] 10/06/2022 15:12:57 10/11/2022 text/html Patient is a 82 year old male established patient who presents to clinic today for evaluation of a right sided diabetic foot wound secondary to wearing a budin splint for hammertoes that was too tight and caused a deep pressure injury to the right foot. The patient did have cellulitis diagnosed by my partner Dr. Valdovinos and was given Cephalexin 500 mg for management. Patient mentions that he has tolerated this without complication and has noticed a substantial reduction in pain, swelling, and redness to the right foot with no evidence of current drainage present. The patient denies any systemic signs or symptoms of infection including: Nausea, vomiting, fever, chills, redness extending up the foot, or ongoing drainage. Fabian Cox DPM [address] [place] [address], [address], [facility] 10/11/2022 11:29:09 10/20/2022 text/html Patient is a 82 year old male established patient who presents to clinic today for re evaluation of a right sided diabetic foot wound secondary to wearing a budin splint for hammertoes that was too tight and caused a deep pressure injury to the right foot. The patient was instructed on performing interdigital lambs wool application in addition to betadine application on a daily basis and he has finished his previous antibiotic without complication. The patient denies any systemic signs or symptoms of infection including: Nausea, vomiting, fever, chills, redness extending up the foot, or ongoing drainage. Fabian Cox DPM [address] [place], [address], [facility] 10/21/2022 12:42:40 11/02/2022 text/html Patient is a 82 year old male established patient who presents to clinic today for re evaluation of a right sided diabetic foot wound secondary to wearing a budin splint for hammertoes that was too tight and caused a deep pressure injury to the right foot. The patient was instructed on performing interdigital lambs wool application in addition to betadine application on a daily basis and he has finished his previous antibiotic without complication. The patient denies any systemic signs or symptoms of infection including: Nausea, vomiting, fever, chills, redness extending up the foot, or ongoing drainage. Fabian Cox DPM [address] [place], [address], [facility] 11/02/2022 19:00:35 11/22/2022 text/html Patient is a 82 year old male established patient who presents to clinic today for re evaluation of a right sided diabetic foot wound secondary to wearing a budin splint for hammertoes that was too tight and caused a deep pressure injury to the right foot. The patient was instructed on performing interdigital lambs wool application in addition to betadine application on a daily basis. The patient denies any systemic signs or symptoms of infection including: Nausea, vomiting, fever, chills, redness extending up the foot, or ongoing drainage. The patient was previously called and reviewed the results of his TRAN report obtained on 11/16/2022 at which time it which revealed moderate infrapopliteal disease with TRAN at DP of 0.75 and PT of 0.79 with abnormal doppler signals noted. The patient does have an appointment with vascular surgery through [facility] on 12/08/2022 for a follow-up evaluation. Fabian Cox DPM [address] [place], [address], [facility] 11/22/2022 15:29:23
--- NOTE | 2024-05-05 13:24 | CRLHL7_ITS ---
For Patients: As a result of the Century Cures Act, medical imaging exams and procedure reports are released immediately into your electronic medical record. You may view this report before your referring provider. If you have questions, please contact your health care provider. Indication: PAIN, NO INJURY. Technique: Right elbow, 2 views. Comparison: None. Findings: Bones: Alignment is normal. No fractures or bone lesions. Joint spaces: Sail sign is noted. At least moderate effusion at the elbow joint.. Mild to moderate degenerative changes. Soft tissues: Dystrophic calcifications along the lateral epicondyle. A few adjacent to the proximal ulna as well. . Impression: No acute fractures identified. There is a moderate effusion and occult fracture is not excluded in the setting of trauma. Degenerative changes are noted. Dictated by Jessenia Strickland MD @ 05/05/2024 2:04:40 PM (Electronically Signed)
--- NOTE | 2024-05-05 13:24 | CRLHL7_ITS ---
For Patients: As a result of the Century Cures Act, medical imaging exams and procedure reports are released immediately into your electronic medical record. You may view this report before your referring provider. If you have questions, please contact your health care provider. INDICATION: Confusion COMPARISON: December 27, 2022 chest radiograph TECHNIQUE: Single frontal radiographic view(s) of the chest. FINDINGS: No large pleural effusion. No definite focal pulmonary consolidation. Postoperative changes of median sternotomy. Normal heart size. No acute osseous findings. IMPRESSION: No acute thoracic findings. Dictated by Damien Lima MD @ 05/05/2024 1:58:35 PM (Electronically Signed)
--- NOTE | 2024-05-05 13:24 | ED.WEAKNESS ---
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 Patient notes that he [facility] but EMS tells me that his has noted increased confusion in is wondering about the possibility of a UTI as he had an episode of incontinence last night. Will for himself denies chest pain shortness of breath fever or chills. Notes that he has been transferring himself quite a bit and that is why he thinks he has right elbow pain. He cannot straighten it entirely. Notes that his shoulder hurts as well. Denies any recent falls. Addendum: Patient's arrives and notes that he will friend has had increased weakness over the past 3 days which is quite unusual. She notes that normally he is a lot easier to transfer and now he is taking quite a bit a time getting to the bathroom and back. She notes that of T came to get him this morning for some therapy and they were unable to get him in the car and this is unusual. He did have a history of a UTI 1 year ago. Notes no falls or trauma that she knows of with the elbow. That has been hurting him over the last 3 days as well. Related Data Home Medications ?Medication ?Instructions ?Recorded ?Confirmed atorvastatin 40 mg tablet 40 mg PO HS 12/09/22 05/05/24 insulin aspart U-100 100 unit/mL 20 - 24 unit subcut TIDWM 12/09/22 05/05/24 (3 mL) subcutaneous pen (Novolog FlexPen U-100 Insulin aspart) insulin glargine 100 unit/mL (3 40 unit subcut HS 12/09/22 05/05/24 mL) subcutaneous pen (Basaglar KwikPen U-100 Insulin) nitroglycerin 0.4 mg sublingual 0.4 mg sublingual Q5M PRN 12/09/22 05/05/24 tablet apixaban 5 mg tablet (Eliquis) 5 mg PO BID 12/27/22 05/05/24 clopidogrel 75 mg tablet 75 mg PO DAILY 12/27/22 05/05/24 pantoprazole 40 mg tablet,delayed 40 mg PO DAILY 12/27/22 05/05/24 release metoprolol succinate 25 mg 12.5 mg PO DAILY 02/12/23 05/05/24 tablet,extended release 24 hr sacubitril 24 mg-valsartan 26 mg 0.5 tab PO BID 02/12/23 05/05/24 tablet (Entresto) spironolactone 25 mg tablet 25 mg PO DAILY 02/12/23 05/05/24 acetaminophen 325 mg tablet 650 mg PO Q4H PRN 05/05/24 05/05/24 dapagliflozin propanediol 10 mg 10 mg PO DAILY 05/05/24 05/05/24 tablet (Farxiga) furosemide 20 mg tablet 20 mg PO BID 05/05/24 05/05/24 levothyroxine 75 mcg tablet 75 mcg PO DAILY 05/05/24 05/05/24 mirtazapine 7.5 mg tablet 7.5 mg PO HS 05/05/24 05/05/24 polyethylene glycol 3350 17 17 g PO DAILY 05/05/24 05/05/24 gram/dose oral powder (ClearLax) pregabalin 50 mg capsule 50 mg PO TID 05/05/24 05/05/24 sennosides 8.6 mg tablet 17.2 mg PO BID 05/05/24 05/05/24 (Evac-U-Gen (sennosides)) Previous Rx's ?Medication ?Instructions ?Recorded blood-glucose meter,continuous #1 ea 02/15/23 (Dexcom G7 [employer]) blood-glucose sensor (Dexcom G7 #9 ea 02/15/23 Sensor device) foam bandage 4 X 4 (Optifoam #10 ea 02/15/23 Non-Adhesive) gauze bandage 4 X 4 (Bordered #25 ea 02/15/23 Gauze) cutimed sorbion border dressing #20 ea 04/22/24 hydrocolloid dressing 4 X 4 #5 ea 04/22/24 (DuoDERM CGF Extra Thin Dressing) miscellaneous medical supply #2 ea 04/22/24 foam bandage 4 X 4 (Mepilex #20 ea 04/25/24 Border) Allergies Allergy/AdvReac Type Severity Reaction Status Date / Time No Known Drug Allergies Allergy Verified 05/05/24 18:06 Review of Systems Status of ROS: Reports: 10 or more systems reviewed and unremarkable except as noted in History and below Const: Reports: fatigue; Denies: fever Eyes: Denies: change in vision ENMT: Denies: neck pain or nasal congestion Cardio: Denies: chest pain, swelling of feet/ankles, lightheadedness or shortness of breath with exertion Resp: Denies: shortness of breath or cough GI: Denies: abdominal pain, nausea, vomiting or diarrhea : Reports: urinary frequency and other (Urinary incontinence); Denies: painful urination Musculo: Denies: neck pain Endo: Reports: fatigue PFSH PFSH Medical History (Updated 05/05/24 @ 18:56 by Betty Matthew MD) HFrEF (heart failure with reduced ejection fraction) ?I50.20 - Unspecified systolic (congestive) heart failure (ICD-10) CKD stage 3b, GFR 30-44 ml/min ?N18.32 - Chronic kidney disease, stage 3b (ICD-10) Hypertension ?I10 - Essential (primary) hypertension (ICD-10) Type 2 diabetes with skin ulcer of lower extremity ?E11.622 - Type 2 diabetes mellitus with other skin ulcer (ICD-10) ?L97.909 - Non-pressure chronic ulcer of unspecified part of unspecified lower leg with unspecified severity (ICD-10) Uses hearing aid ?Z97.4 - Presence of external hearing-aid (ICD-10) Non-pressure chronic ulcer of other part of right lower leg with other specified severity ?L97.818 - Non-pressure chronic ulcer of other part of right lower leg with other specified severity (ICD-10) Non-pressure chronic ulcer of right heel and midfoot with other specified severity ?L97.418 - Non-pressure chronic ulcer of right heel and midfoot with other specified severity (ICD-10) Type 2 diabetes mellitus with foot ulcer ?E11.621 - Type 2 diabetes mellitus with foot ulcer (ICD-10) ?L97.509 - Non-pressure chronic ulcer of other part of unspecified foot with unspecified severity (ICD-10) Diabetic peripheral neuropathy ?E11.42 - Type 2 diabetes mellitus with diabetic polyneuropathy (ICD-10) Peripheral vascular disease ?I73.9 - Peripheral vascular disease, unspecified (ICD-10) Decubitus ulcer, heel, right, unstageable ?L89.610 - Pressure ulcer of right heel, unstageable (ICD-10) Decubitus ulcer, heel, left, unstageable ?L89.620 - Pressure ulcer of left heel, unstageable (ICD-10) Non-ST elevation MD (NSTEMI) ?I21.4 - Non-ST elevation (NSTEMI) myocardial infarction (ICD-10) Peripheral neuropathy ?G62.9 - Polyneuropathy, unspecified (ICD-10) CAD (coronary artery disease) ?I25.10 - Atherosclerotic heart disease of [place] coronary artery without angina pectoris (ICD-10) Surgical History Hx of colonoscopy ?Z98.890 - Other specified postprocedural states (ICD-10) Hx of right BKA ?Z89.511 - Acquired absence of right leg below knee (ICD-10) S/P CABG x 4 ?Z95.1 - Presence of aortocoronary bypass graft (ICD-10) Social History (Updated 05/05/24 @ 18:47 by Betty Matthew MD) Narrative: Lives independently with Moe (would be medical decision maker if needed) in [place]. Was in TCU from March 2023 through July of 2023 after R BKA. 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 Nonsmoker, no ETOH use. DNR/DNI. What is your current living situation?: I presently have a place to live Problems where you live: no known problems Problems where you live details: n/a In the past 12 months, utilities in danger of being shut off: no In past 12 months, lack of transportation kept you from medical appts, meetings, work, or getting things needed for daily living: no In the past 12 mos, have been you worried that your food would run out before you had money to buy more?: never true In the past 12 mos, the food you bought just didn't last and you didn't have money to buy more?: never true Highest level of school completed/degree received: high school graduate Smoking Status: Never smoker How often do you have a drink containing alcohol: never How many standard drinks containing alcohol do you have on a typical day: 1 or 2 AUDIT-C Alcohol total score: 0 Non-prescribed substance use: denies use Caffeine: Yes How often does anyone, including family, friends and others, physically hurt you: never How often does anyone, including family, friends and others, insult or talk down to you: never How often does anyone, including family, friends and others, threaten you with harm: never How often does anyone, including family, friends and others, scream or curse at you: never service: Yes ([employer]) Exam Narrative: Exam Narrative: Patient noted to be awake and alert. Rather a poor historian. GCS of 15. EOM is full. Eyebrow raise smile symmetrical. Neck is supple. Heart with a regular rate and rhythm. Lungs are clear. Abdomen for true Duane but nontender. Right BKA noted left lower extremity with support wrap and stockings that we will removed. Upper extremity strength and motor is intact. After removal of patient's stocking and dressings patient has discrete areas of skin breakdown ulceration through the fat. There may be slightly increased drainage that appears to be serosanguineous from the heel itself but there is no surrounding areas of erythema or foul smell. Re-examination of the right arm shows increased soft tissue swelling and warmth to the touch. There is erythema that is more prominent than initial arrival. Const: Vital Signs, click to edit/add: Vital Signs - 24 hr 05/05/24 13:23 05/05/24 16:04 Pulse Rate [Pulse Oximeter] 83 88 Respiratory Rate 16 16 Blood Pressure [Le ft Upper Arm] 112/67 127/68 Pulse Oximetry 99 97 Oxygen Delivery Me thod Room Air Room Air Documenting provider has reviewed patient's vital signs: yes Course Course ED Course: Differential diagnosis includes but is not limited to UTI, stroke, cellulitis, sepsis. Will place IV and draw labs to include CBC, comprehensive panel, troponin, CRP, urinalysis. Will also do a chest x-ray, swab for COVID influenza and RSV. Reevaluation(s) Reevaluation #1: After speaking with the weakness appears to be new in the last 3 days. Will also order head CT. Reevaluation #2: Patient will be staying as he has weakness and transfer difficulties from his wheelchair to bed or toilet given the right elbow pain. Will also consult with Orthopedics. Consultations Consultation #1: I did consult with MICHAELA Mcdowell from Orthopedics. At this time patient is indeed on a blood thinner Eliquis as well as Plavix. Given this as well as no systemic signs in terms of vital signs of sepsis will elect to hold off from placing needle in the elbow. It is noted that patient has some signs of pseudogout noted on CT. Discussed treatment with prednisone as we would want to avoid NSAIDs in this gentleman with an elevated creatinine of 1.6 as well as the use of antibiotics. Did elect to use steroid such as prednisone for the treatment of possible pseudogout. However will also cover with antibiotics. Vital Signs Vital signs: Initial Vital Signs Pulse Rate 83 05/05/24 13:23 Respiratory Rate 16 05/05/24 13:23 Blood Pressure 112/67 05/05/24 13:23 Blood Pressure Mean 82 05/05/24 13:23 Blood Pressure Position Sitting 05/05/24 13:23 Pulse Oximetry 99 05/05/24 13:23 Oxygen Delivery Method Room Air 05/05/24 13:23 Vital Signs Pulse Rate 83 05/05/24 13:23 Respiratory Rate 16 05/05/24 13:23 Blood Pressure 112/67 05/05/24 13:23 Pulse Oximetry 99 05/05/24 13:23 Oxygen Delivery Method Room Air 05/05/24 13:23 Temperature 97.9 F 05/05/24 17:05 Pulse Rate 89 05/05/24 18:27 Respiratory Rate 16 05/05/24 18:27 Blood Pressure 120/71 05/05/24 17:05 Pulse Oximetry 98 05/05/24 17:05 Oxygen Delivery Method Room Air 05/05/24 17:05 Medications Administered Medications: Generic Name Dose Route Start Last Admin Trade Name Freq PRN Reason Stop Dose Admin Vancomycin HCl 1,750 mg/ 517.5 mls @ 295.714 mls/hr 05/05/24 17:30 05/05/24 18:00 Sodium Chloride IVPB 05/05/24 19:14 295.71 mls/hr ONCE ONE Administration Discontinued Medications Generic Name Dose Route Start Last Admin Trade Name Freq PRN Reason Stop Dose Admin Piperacillin Sod/Tazobactam 100 mls @ 200 mls/hr 05/05/24 16:30 05/05/24 17:57 Sod 3.375 gm/ Sodium Chloride IVPB 05/05/24 16:31 Infused ONCE ONE Infusion MDM - Weakness MDM Narrative Medical decision making narrative: 1. Weakness-no evidence of stroke, UTI at this time. Question the appearance of the right elbow which was initially thought to strain as this may represent some sort of infection. White count minimally elevated. Will treat with Zosyn 3.375 g and vancomycin at this time. Evidence of possible pseudogout and would want to avoid NSAIDs in this case with baseline creatinine of 1.6 and thus we use prednisone 60 mg p.o. in the ED at this time. No evidence of COVID, pneumonia, UTI or stroke. 2. Right elbow pain-evidence of pseudogout noted on CT with effusion. Fortunately no evidence of fracture. Treatment as above. Ortho consulted this evening and will see patient tomorrow if desired. 3. History of diabetes and diabetic ulcers-left foot with some increased drainage but no real erythema or evidence of infection. 4. Disposition-admit to the floor under the care of Medical Records Attestation: I reviewed the patient's medical records. Lab Data Attestation: I reviewed the patient's lab results. Labs: Lab Results 05/05/24 05/05/24 Range/Units 14:25 15:52 WBC 11.21 H (4.50-11.00) K/uL RBC 3.75 L (4.30-5.90) m/uL Hgb 10.9 L (13.5-17.5) gm/dL Hct 34.9 L (37.0-53.0) % MCV 93 (80-100) fL MCH 29 (26-34) pg MCHC 31 L (32-36) gm/dL RDW Coeff of Carrillo 14.5 (11.5-15.5) % Plt Count 297 (140-440) K/uL Neut % (Auto) 76.9 H (42.0-72.0) % Lymph % (Auto) 12.7 L (20-44) % [place] % (Auto) 7.9 (0.0-11.0) % Eos % (Auto) 1.9 (0.0-7.0) % Baso % (Auto) 0.3 (0.0-3.0) % Neut # (Auto) 8.60 H (1.7-7.0) K/uL Lymph # (Auto) 1.40 (0.90-2.90) K/uL [place] # (Auto) 0.90 (0.00-0.90) K/UL Eos # (Auto) 0.20 (0.00-0.50) K/uL Baso # (Auto) 0.00 (0.00-0.30) K/uL Abs Immat Gran (auto) 0.00 (0.00-0.30) K/uL Imm/Tot Granulo (auto) 0.3 % Sodium 139 (135-149) mmol/L Potassium 4.2 (3.6-5.1) mmol/L Chloride 107 (96-114) mmol/L Carbon Dioxide 25 (20-32) mmol/L Anion Gap 7 (7-15) mEq/L BUN 31 H (7-30) mg/dL Creatinine 1.6 H (0.5-1.5) mg/dL Estimated GFR 43 ml/min Glucose 89 (60-115) mg/dL Uric Acid 7.5 (2.2-8.4) mg/dL Calcium 9.2 (8.4-10.6) mg/dL Total Bilirubin 0.6 (0.1-1.5) mg/dL AST 23 (12-35) U/L ALT 19 (4-50) U/L Alkaline Phosphatase 106 (40-150) U/L C-Reactive Protein 15.9 H (0.5-1.0) mg/dL Total Protein 7.6 (6.0-8.3) g/dL Albumin 3.9 (3.3-5.0) g/dL SARS-CoV-2 (PCR) Negative SARS-CoV-2 (Negative) Influenza Type A (PCR) Negative PCR FLU A (Negative) Influenza Type B (PCR) Negative PCR FLU B (Negative) RSV (PCR) Negative PCR RSV (Negative) Lab Acknowledgement Test Added Imaging Data Chest x-ray: Attestation: I have reviewed the pertinent imaging results. Radiologist's impression: No large pleural effusion. No definite focal pulmonary consolidation. Postoperative changes of median sternotomy. Normal heart size. No acute osseous findings. IMPRESSION: No acute thoracic findings. Elbow x-ray: Attestation: I have reviewed the pertinent imaging results. Radiologist's impression: Bones: Alignment is normal. No fractures or bone lesions. Joint spaces: Sail sign is noted. At least moderate effusion at the elbow joint.. Mild to moderate degenerative changes. Soft tissues: Dystrophic calcifications along the lateral epicondyle. A few adjacent to the proximal ulna as well. . Impression: No acute fractures identified. There is a moderate effusion and occult fracture is not excluded in the setting of trauma. Degenerative changes are noted. Elbow CT: Attestation: I have reviewed the pertinent imaging results. Radiologist's impression: No acute fracture. There are degenerative changes of the elbow with an elbow joint effusion. Chondrocalcinosis is present. There are also prominent calcifications associated with the common extensor tendon which closely related to calcium pyrophosphate deposition subcutaneous edema is noted. No soft tissue gas or localized collection. IMPRESSION: 1. 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 2. Calcifications associated with the common extensor tendon may also relate to calcium pyrophosphate deposition. 3. There is no acute fracture. 4. Subcutaneous edema, without localized collection or soft tissue gas. CT scan - head: Attestation: I have reviewed the pertinent imaging results. My impression: I do not note any acute findings Radiologist's impression: There is no intra-axial or extra-axial fluid collection. There is no mass effect or midline shift. There is age-related cortical atrophy with mild sulcal widening and ex vacuo dilatation of the lateral ventricles. Redemonstration of encephalomalacia of the right frontal lobe and right peripheral cerebellum. There is moderate chronic small vessel disease change within the subcortical and periventricular white matter. Otherwise, the brain parenchyma is preserved in attenuation and witt-white differentiation. The orbits and their contents are grossly within normal limits. The bony calvarium is grossly intact. The paranasal sinuses are clear. The mastoid air cells are well aerated. Impression: Stable remote ischemic, age-related and chronic small-vessel disease changes of the brain without acute intracranial abnormality. ECG Data Attestation: I personally reviewed and interpreted this ECG as follows: ECG interpretation date: 05/05/24 Interpretation: Atrial fibrillation at a rate of 82. No acute ST or T-wave changes. Discharge Plan Discharge Clinical Impression: Weakness, Elbow pain Patient Disposition: Admitted As Observation Condition: Improved
--- OUTSIDE RECORDS SUMMARY | 2024-05-05 14:01 | XMS_ITS | Continuity of Care Document ---
Author Name [facility] Organization [facility] Care Team Providers Care Bench Assembly Inspector Name Role Phone [facility] Unavailable Unavailable Problems Combined list of problems from Department of Defense and Veterans Affairs facilities. It does not include entries that were removed or entered in error. Problem Status Onset Date Problem Type Date of Resolution Comments Source Exposure to potentially hazardous substance ([facility] [id number]) Active 07/20/19 24 Condition Jul 20, 2023 Entered By: MECHELLE DEMPSEY Comment: [facility] Documentation Initiative [facility] CAD - Coronary Artery Disease ([facility] [id number]) Active Condition [place] ([facility]) CHF - Congestive Heart Failure ([facility] [id number]) Active Condition [facility]) Diabetes Mellitus Type 2 ([facility] [id number]) Active Condition [place] ([facility]) History of amputation of right leg through tibia and fibula Active Condition [place] ([facility]) HTN - Hypertension ([facility] [id number]) Active Condition [place] ([facility]) Hyperlipidemia ([facility] [id number]) Active Condition [facility]) Hypothyroidism ([facility] [id number]) Active Condition [place] ([facility]) Long-term current use of insulin Active Condition [place] ([facility]) Peripheral neuropathy due to type 2 diabetes mellitus Active Condition [place] ([facility]) Diagnosis: ICD-10-CM R53.1 Weakness Active Diagnosis [facility] Diagnosis: ICD-10-CM Z89.511 Acquired absence of right leg below knee Active Diagnosis [facility] Diagnosis: ICD-10-CM Z65.8 Oth problems related to psychosocial circumstances Active Diagnosis [facility] Diagnosis: ICD-10-CM H90.3 Sensorineural hearing loss, bilateral Active Diagnosis [facility] Diagnosis: ICD-10-CM L89.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, stage 3 Active Diagnosis [facility]) Diagnosis: ICD-10-CM Z46.1 Encounter for fitting and adjustment of hearing aid Active Diagnosis [facility] Diagnosis: ICD-10-CM Z74.09 Other reduced mobility Active Diagnosis [place] ([facility]) Diagnosis: ICD-10-CM E11.9 Type 2 diabetes mellitus without complications Active Diagnosis [place] ([facility]) Diagnosis: ICD-10-CM I50.9 Heart failure, unspecified Active Diagnosis [place] ([facility]) Diagnosis: ICD-10-CM R26.89 Other abnormalities of [...] [facility] WOUND CARE ORDERS TOPICA L 02/16/2024 [id number] KATHY MURPHY 2022 40 [facility] CLOPIDOGREL BISULFATE 75MG TAB TAKE ONE [...] 90 UNITS/DA Y SUBCUT ANEOUS ACTIVE 03/12/2025 [id number] HENRIKRYAN Cason 2023 15 [place] [facility] [...] Y SUBCUT ANEOUS DISCONT INUED (EDIT) 01/10/2025 [id number] HENRIKRYAN Cason 2023 10 [place] [facility] [...] Y SUBCUT ANEOUS DISCONT INUED (EDIT) 11/08/2024 [id number] HENRIKRYAN Cason 2023 10 [place] [facility] [...] Site Reaction Lot Number CVX Code 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 Comments Source COVID-19 (ITegris), MRNA, LNP-S, PF, NAVYA-SUCROSE, 30 MCG/0.3 ML (AGES 12+ YEARS) 2023 309 complet ed [facility] INFLUENZA, ADJUVANTED, TRIVALENT, PF 2023 168 complet ed [facility] COVID-19 (PFIZER), MRNA, LNP-S, PF, NAVYA-SUCROSE, 30 MCG/0.3 ML (AGES 12+ YEARS) 2022 309 complet ed [facility] INFLUENZA, ADJUVANTED, QUADRIVALENT, PF 2022 205 complet ed [facility] RSV, BIVALENT, PROTEIN SUBUNIT RSVPREF, DILUENT RECONSTITUTED , 0.5 ML, PF 2022 305 complet ed [facility] INFLUENZA, HIGH-DOSE, QUADRIVALENT 1 2021 197 complet ed [facility] COVID-19 (MODERNA), MRNA, LNP-S, BIVALENT, PF, 50 MCG/0.5 ML OR 25MCG/0.25 ML DOSE 1 2021 229 complet ed [facility] COVID-19 (MODERNA), MRNA, LNP-S, PF, 100 MCG/0.5ML DOSE OR 50 MCG/0.25ML DOSE 2020 207 complet ed [facility] COVID-19 (PFIZER), MRNA, LNP-S, PF, 30 MCG/0.3 ML DOSE 3 2020 208 complet ed [facility] INFLUENZA, HIGH-DOSE, QUADRIVALENT, PF 2020 197 complet ed [facility] INFLUENZA, UNSPECIFIED FORMULATION 2020 88 complet ed [facility] TDAP 2020 115 complet ed [facility] [employer], [id number] , exp-2022 and given VIS dated 12/17/2020 [place] ([facility]) ZOSTER RECOMBINANT 2 2020 187 complet ed [place] ([facility]) ZOSTER RECOMBINANT 1 2020 187 complet ed [place] ([facility]) COVID-19 (PFIZER), MRNA, LNP-S, PF, 30 MCG/0.3 ML DOSE 2 2020 208 complet ed [facility] COVID-19 (PFIZER), MRNA, LNP-S, PF, 30 MCG/0.3 ML DOSE 1 2020 208 complet ed [facility] INFLUENZA, ADJUVANTED, TRIVALENT, PF 2019 168 complet ed [facility] INFLUENZA, UNSPECIFIED FORMULATION 2019 88 complet ed [facility] INFLUENZA, HIGH-DOSE, TRIVALENT, PF 2018 135 complet ed [facility] INFLUENZA, ADJUVANTED, TRIVALENT, PF 2017 168 complet ed [facility] INFLUENZA, UNSPECIFIED FORMULATION 2016 88 complet ed [facility] INFLUENZA, HIGH-DOSE, TRIVALENT, PF 2014 135 complet ed [facility] PNEUMOCOCCAL CONJUGATE PCV 13 2014 133 complet ed [facility] INFLUENZA, SPLIT VIRUS, TRIVALENT, PRESERVATIVE 2012 141 complet ed [facility] INFLUENZA, SPLIT VIRUS, TRIVALENT, PRESERVATIVE 2011 141 complet ed [facility] INFLUENZA, SPLIT VIRUS, TRIVALENT, PF 2010 140 complet ed [facility] PNEUMOCOCCAL POLYSACCHARID E PPV23 2010 33 complet ed [facility] INFLUENZA, SPLIT VIRUS, TRIVALENT, PRESERVATIVE 2009 141 complet ed [facility] INFLUENZA, SPLIT VIRUS, TRIVALENT, PF 2008 140 complet ed [facility] INFLUENZA, SPLIT VIRUS, TRIVALENT, PRESERVATIVE 2007 141 complet ed [facility] INFLUENZA, SPLIT VIRUS, TRIVALENT, PRESERVATIVE 2006 141 complet ed [facility] INFLUENZA, SPLIT VIRUS, TRIVALENT, PRESERVATIVE 2005 141 complet ed [facility] PNEUMOCOCCAL POLYSACCHARID E PPV23 2005 33 complet ed [facility] TD (ADULT), 5 LF TETANUS TOXOID, PRESERVATIVE FREE, ADSORBED 2005 113 complet ed [facility] INFLUENZA, SPLIT VIRUS, TRIVALENT, PRESERVATIVE 2004 141 complet ed [facility] INFLUENZA, SPLIT VIRUS, TRIVALENT, PRESERVATIVE 2003 141 complet ed [facility] INFLUENZA, SPLIT VIRUS, TRIVALENT, PRESERVATIVE 2002 141 complet [facility] Results Combined list of recent [...] 2023 02:00 PM Reporting Lab: [facility] [address] Performing Lab: [facility] [phone] [place] ([facility]) BASIC METABOLIC PANEL+MG UREA NITROGEN [MASS/VOLUM E] IN SERUM OR PLASMA 35 mg/dL 8 - 26 01/23 H Specimen Type: PLASMA No comment entered. Ordering Provider: AILIN CHESTER Report Released Date/Time: Jan 23, 2023 02:00 PM Reporting Lab: [place] [address] Performing Lab: [facility] [address] [place] ([facility]) BASIC METABOLIC PANEL+MG GLUCOSE [MASS/VOLUM E] IN SERUM OR PLASMA 239 mg/dL 70 - 100 01/23 H Specimen Type: PLASMA No comment entered. Ordering Provider: AILIN CHESTER Report Released Date/Time: Jan 23, 2023 02:00 PM Reporting Lab: [facility] [address] Performing Lab: [facility] [address] [place] ([facility]) BASIC METABOLIC PANEL+MG SODIUM [MOLES/VOLU ME] IN SERUM OR PLASMA 140 mmol/L 136 - 145 01/23 Specimen Type: PLASMA No comment entered. Ordering Provider: AILIN CHESTER Report Released Date/Time: Jan 23, 2023 02:00 PM Reporting Lab: [facility] [address] Performing Lab: [facility] [address] [place] ([facility]) BASIC METABOLIC PANEL+MG POTASSIUM [MOLES/VOLU ME] IN SERUM OR PLASMA 5.1 mmol/L 3.5 - 5.1 01/23 Specimen Type: PLASMA No comment entered. Ordering Provider: AILIN CHESTER Report Released Date/Time: Jan 23, 2023 02:00 PM Reporting Lab: [facility] [address] Performing Lab: [facility] [address] [place] ([facility]) BASIC METABOLIC PANEL+MG CHLORIDE [MOLES/VOLU ME] IN SERUM OR PLASMA 109 mmol/L 98 - 107 01/23 H Specimen Type: PLASMA No comment entered. Ordering Provider: AILIN CHESTER Report Released Date/Time: Jan 23, 2023 02:00 PM Reporting Lab: [place] [id number] Performing Lab: [address] ([facility]) BASIC METABOLIC PANEL+MG CARBON DIOXIDE, TOTAL [MOLES/VOLU ME] IN SERUM OR PLASMA 21 mmol/L 22 - 29 01/23 L Specimen Type: PLASMA No comment entered. Ordering Provider: AILIN CHESTER Report Released Date/Time: Jan 23, 2023 02:00 PM Reporting Lab: [place] [id number] Performing Lab: [address] ([facility]) BASIC METABOLIC PANEL+MG CALCIUM [MASS/VOLUM E] IN SERUM OR PLASMA 9.4 mg/dL 8.4 - 10.2 01/23 Specimen Type: PLASMA No comment entered. Ordering Provider: AILIN CHESTER Report Released Date/Time: Jan 23, 2023 02:00 PM Reporting Lab: [place] [address] Performing Lab: [place] [address] [place] ([facility]) BASIC METABOLIC PANEL+MG MAGNESIUM [MASS/VOLUM E] IN SERUM OR PLASMA 1.7 mg/dL 1.6 - 2.6 01/23 Specimen Type: PLASMA No comment entered. Ordering Provider: AILIN CHESTER Report Released Date/Time: Jan 23, 2023 02:00 PM Reporting Lab: [place] [address] Performing Lab: [address] ([facility]) BASIC METABOLIC PANEL+MG ANION GAP IN SERUM OR PLASMA 10 mmol/L 5 - 15 01/23 Specimen Type: PLASMA No comment entered. Ordering Provider: AILIN CHESTER Report Released Date/Time: Jan 23, 2023 02:00 PM Reporting Lab: [address] Performing Lab: [facility] [address] [place] ([facility]) BASIC METABOLIC PANEL+MG GLOMERULAR FILTRATION RATE/1.73 SQ M.PREDICTED [VOLUME RATE/AREA] IN SERUM, PLASMA OR BLOOD BY CREATININE- BASED FORMULA (CKD-EPI 2020) 61 60 01/23 Specimen Type: PLASMA No comment entered. Ordering Provider: AILIN CHESTER Report Released Date/Time: Jan 23, 2023 02:00 PM Reporting Lab: [place] [phone] Performing Lab: [place] [phone] [place] ([facility]) BNP NATRIURETIC PEPTIDE B [MASS/VOLUM E] IN SERUM OR PLASMA 1549 pg/mL <99 - 99 01/23 H Specimen Type: PLASMA No comment entered. Ordering Provider: AILIN CHESTER Report Released Date/Time: Jan 23, 2023 02:00 PM Reporting Lab: [place] [phone] Performing Lab: [place] [phone] [place] ([facility]) MICROALBU MIN/CREAT ININE RATIO URINE CREATININE [MASS/VOLUM E] IN URINE 132.8 mg/dL 58.0 - 161.0 11/23 Specimen Type: URINE No comment entered. Ordering Provider: AILIN CHESTER Report Released Date/Time: Nov 23, 2022 11:58 AM Reporting Lab: [facility] [address] Performing Lab: [place] [phone] [place] ([facility]) MICROALBU MIN/CREAT ININE RATIO URINE MICROALBUMI N/CREATININ E [MASS RATIO] IN URINE 28.0 mg/g{c reat} 11/23 Specimen Type: URINE No comment entered. Ordering Provider: AILIN CHESTER Report Released Date/Time: Nov 23, 2022 11:58 AM Reporting Lab: [place] [phone] Performing Lab: [facility] [address] [place] ([facility]) MICROALBU MIN/CREAT ININE RATIO URINE MICROALBUMI N [MASS/VOLUM E] IN URINE 37.2 mg/L 11/23 H Specimen Type: URINE No comment entered. Ordering Provider: AILIN CHESTER Report Released Date/Time: Nov 23, 2022 11:58 AM Reporting Lab: [facility] [address] Performing Lab: [facility] [address] [place] ([facility]) CBC LEUKOCYTES [#/VOLUME] IN BLOOD BY AUTOMATED COUNT 10.80 10*3/u L 4.0 - 11.0 11/23 Specimen Type: BLOOD No comment entered. Ordering Provider: AILIN CHESTER Report Released Date/Time: Nov 23, 2022 11:58 AM Reporting Lab: [facility] [address] Performing Lab: [address] [place] ([facility]) CBC ERYTHROCYTE S [#/VOLUME] IN BLOOD BY AUTOMATED COUNT 3.87 10*6/u L 4.6 - 6.2 11/23 L Specimen Type: BLOOD No comment entered. Ordering Provider: AILIN CHESTER Report Released Date/Time: Nov 23, 2022 11:58 AM Reporting Lab: [facility] [phone] Performing Lab: [facility] [address] [place] ([facility]) CBC HEMOGLOBIN [MASS/VOLUM E] IN BLOOD 12.1 g/dL 13.5 - 17.9 11/23 L Specimen Type: BLOOD No comment entered. Ordering Provider: AILIN CHESTER Report Released Date/Time: Nov 23, 2022 11:58 AM Reporting Lab: [facility] [address] Performing Lab: [facility] [address] [place] ([facility]) CBC HEMATOCRIT [VOLUME FRACTION] OF BLOOD BY AUTOMATED COUNT 37.5 41 - 54 11/23 L Specimen Type: BLOOD No comment entered. Ordering Provider: AILIN CHESTER Report Released Date/Time: Nov 23, 2022 11:58 AM Reporting Lab: [facility] [address] Performing Lab: [facility] [address] [place] ([facility]) CBC MCV [ENTITIC VOLUME] BY AUTOMATED COUNT 96.9 fL 80 - 100 11/23 Specimen Type: BLOOD No comment entered. Ordering Provider: AILIN CHESTER Report Released Date/Time: Nov 23, 2022 11:58 AM Reporting Lab: [facility] [address] Performing Lab: [facility] [address] [place] ([facility]) CBC MCH [ENTITIC MASS] BY AUTOMATED COUNT 31.3 pg 27 - 33 11/23 Specimen Type: BLOOD No comment entered. Ordering Provider: AILIN CHESTER Report Released Date/Time: Nov 23, 2022 11:58 AM Reporting Lab: [facility] [address] Performing Lab: [facility] [address] [place] ([facility]) CBC MCHC [MASS/VOLUM E] BY AUTOMATED COUNT 32.3 g/dL 32.0 - 37.5 11/23 Specimen Type: BLOOD No comment entered. Ordering Provider: AILIN CHESTER Report Released Date/Time: Nov 23, 2022 11:58 AM Reporting Lab: [facility] [address] Performing Lab: [facility] [address] [place] ([facility]) CBC PLATELETS [#/VOLUME] IN BLOOD BY AUTOMATED COUNT 293 10*3/u L 150 - 400 11/23 Specimen Type: BLOOD No comment entered. Ordering Provider: AILIN CHESTER Report Released Date/Time: Nov 23, 2022 11:58 AM Reporting Lab: [facility] [address] Performing Lab: [facility] [address] [place] ([facility]) CBC PLATELET MEAN VOLUME [ENTITIC VOLUME] IN BLOOD BY AUTOMATED COUNT 10.3 fL 7.4 - 10.4 11/23 Specimen Type: BLOOD No comment entered. Ordering Provider: AILIN CHESTER Report Released Date/Time: Nov 23, 2022 11:58 AM Reporting Lab: [facility] [address] Performing Lab: [facility] [address] [place] ([facility]) CBC ERYTHROCYTE DISTRIBUTIO N WIDTH [RATIO] BY AUTOMATED COUNT 13.2 11.5 - 14.5 11/23 Specimen Type: BLOOD No comment entered. Ordering Provider: AILIN CHESTER Report Released Date/Time: Nov 23, 2022 11:58 AM Reporting Lab: [facility] [address] Performing Lab: [facility] [address] [place] ([facility]) COMPREHEN SIVE METABOLIC PANEL+MG CREATININE [MASS/VOLUM E] IN SERUM OR PLASMA 1.2 mg/dL 0.7 - 1.2 11/23 Specimen Type: PLASMA No comment entered. Ordering Provider: AILIN CHESTER Report Released Date/Time: Nov 23, 2022 11:58 AM Reporting Lab: [facility] [address] Performing Lab: [place] [phone] [place] ([facility]) COMPREHEN SIVE METABOLIC PANEL+MG UREA NITROGEN [MASS/VOLUM E] IN SERUM OR PLASMA 34 mg/dL 8 - 26 11/23 H Specimen Type: PLASMA No comment entered. Ordering Provider: AILIN CHESTER Report Released Date/Time: Nov 23, 2022 11:58 AM Reporting Lab: [facility] [address] Performing Lab: [facility] [address] [place] ([facility]) COMPREHEN SIVE METABOLIC PANEL+MG GLUCOSE [MASS/VOLUM E] IN SERUM OR PLASMA 54 mg/dL 70 - 100 11/23 L Specimen Type: PLASMA No comment entered. Ordering Provider: AILIN CHESTER Report Released Date/Time: Nov 23, 2022 11:58 AM Reporting Lab: [facility] [address] Performing Lab: [facility] [phone] [place] ([facility]) COMPREHEN SIVE METABOLIC PANEL+MG SODIUM [MOLES/VOLU ME] IN SERUM OR PLASMA 143 mmol/L 136 - 145 11/23 Specimen Type: PLASMA No comment entered. Ordering Provider: AILIN CHESTER Report Released Date/Time: Nov 23, 2022 11:58 AM Reporting Lab: [facility] [address] Performing Lab: [facility] [phone] [place] [address] ([facility]) COMPREHEN SIVE METABOLIC PANEL+MG POTASSIUM [MOLES/VOLU ME] IN SERUM OR PLASMA 4.4 mmol/L 3.5 - 5.1 11/23 Specimen Type: PLASMA No comment entered. Ordering Provider: AILIN CHESTER Report Released Date/Time: Nov 23, 2022 11:58 AM Reporting Lab: [address] Performing Lab: [address] [place] [address] ([facility]) COMPREHEN SIVE METABOLIC PANEL+MG CHLORIDE [MOLES/VOLU ME] IN SERUM OR PLASMA 107 mmol/L 98 - 107 11/23 Specimen Type: PLASMA No comment entered. Ordering Provider: AILIN CHESTER Report Released Date/Time: Nov 23, 2022 11:58 AM Reporting Lab: [place] [phone] Performing Lab: [address] ([facility]) COMPREHEN SIVE METABOLIC PANEL+MG CARBON DIOXIDE, TOTAL [MOLES/VOLU ME] IN SERUM OR PLASMA 23 mmol/L 22 - 29 11/23 Specimen Type: PLASMA No comment entered. Ordering Provider: AILIN CHESTER Report Released Date/Time: Nov 23, 2022 11:58 AM Reporting Lab: [address] Performing Lab: [address] ([facility]) COMPREHEN SIVE METABOLIC PANEL+MG CALCIUM [MASS/VOLUM E] IN SERUM OR PLASMA 9.7 mg/dL 8.4 - 10.2 11/23 Specimen Type: PLASMA No comment entered. Ordering Provider: AILIN CHESTER Report Released Date/Time: Nov 23, 2022 11:58 AM Reporting Lab: [place] [phone] Performing Lab: [address] [place] ([facility]) COMPREHEN SIVE METABOLIC PANEL+MG PROTEIN [MASS/VOLUM E] IN SERUM OR PLASMA 7.2 g/dL 6.0 - 8.3 11/23 Specimen Type: PLASMA No comment entered. Ordering Provider: AILIN CHESTER Report Released Date/Time: Nov 23, 2022 11:58 AM Reporting Lab: [facility] [address] Performing Lab: [facility] [address] [place] ([facility]) COMPREHEN SIVE METABOLIC PANEL+MG ALBUMIN [MASS/VOLUM E] IN SERUM OR PLASMA 4.1 g/dL 3.5 - 5.2 11/23 Specimen Type: PLASMA No comment entered. Ordering Provider: AILIN CHESTER Report Released Date/Time: Nov 23, 2022 11:58 AM Reporting Lab: [place] [phone] Performing Lab: [facility] [phone] [place] ([facility]) COMPREHEN SIVE METABOLIC PANEL+MG BILIRUBIN.T OTAL [MASS/VOLUM E] IN SERUM OR PLASMA 0.5 mg/dL 0.2 - 1.2 11/23 Specimen Type: PLASMA No comment entered. Ordering Provider: AILIN CHESTER Report Released Date/Time: Nov 23, 2022 11:58 AM Reporting Lab: [facility] [address] Performing Lab: [facility] [address] [place] ([facility]) COMPREHEN SIVE METABOLIC PANEL+MG MAGNESIUM [MASS/VOLUM E] IN SERUM OR PLASMA 1.4 mg/dL 1.6 - 2.6 11/23 L Specimen Type: PLASMA No comment entered. Ordering Provider: AILIN CHESTER Report Released Date/Time: Nov 23, 2022 11:58 AM Reporting Lab: [facility] [address] Performing Lab: [facility] [address] [place] ([facility]) COMPREHEN SIVE METABOLIC PANEL+MG ANION GAP IN SERUM OR PLASMA 13 mmol/L 5 - 15 11/23 Specimen Type: PLASMA No comment entered. Ordering Provider: AILIN CHESTER Report Released Date/Time: Nov 23, 2022 11:58 AM Reporting Lab: [facility] [address] Performing Lab: [facility] [address] [place] ([facility]) COMPREHEN SIVE METABOLIC PANEL+MG ALKALINE PHOSPHATASE [ENZYMATIC ACTIVITY/VO LUME] IN SERUM OR PLASMA 87 U/L 40 - 150 11/23 Specimen Type: PLASMA No comment entered. Ordering Provider: AILIN CHESTER Report Released Date/Time: Nov 23, 2022 11:58 AM Reporting Lab: [facility] [address] Performing Lab: [facility] [address] [place] ([facility]) COMPREHEN SIVE METABOLIC PANEL+MG ALANINE AMINOTRANSF ERASE [ENZYMATIC ACTIVITY/VO LUME] IN SERUM OR PLASMA 28 U/L 11/23 Specimen Type: PLASMA No comment entered. Ordering Provider: AILIN CHESTER Report Released Date/Time: Nov 23, 2022 11:58 AM Reporting Lab: [facility] [address] Performing Lab: [facility] [address] [place] ([facility]) COMPREHEN SIVE METABOLIC PANEL+MG ASPARTATE AMINOTRANSF ERASE [ENZYMATIC ACTIVITY/VO LUME] IN SERUM OR PLASMA 33 U/L 11/23 Specimen Type: PLASMA No comment entered. Ordering Provider: AILIN CHESTER Report Released Date/Time: Nov 23, 2022 11:58 AM Reporting Lab: [facility] [address] Performing Lab: [facility] [address] [place] ([facility]) COMPREHEN SIVE METABOLIC PANEL+MG GLOMERULAR FILTRATION RATE/1.73 SQ M.PREDICTED [VOLUME RATE/AREA] IN SERUM, PLASMA OR BLOOD BY CREATININE- BASED FORMULA (CKD-EPI 2020) 61 11/23 Specimen Type: PLASMA No comment entered. Ordering Provider: AILIN CHESTER Report Released Date/Time: Nov 23, 2022 11:58 AM Reporting Lab: [facility] [address] Performing Lab: [facility] [address] [place] ([facility]) [...] be between 8.7 and 9.3. Ref: [email or web address] Ordering Provider: AILIN CHESTER Report Released Date/Time: Nov 23, 2022 11:58 AM Reporting Lab: [facility] [id number] Performing Lab: [facility] [phone] [place] ([facility]) LIPID PANEL,NON -FASTING CHOLESTEROL [MASS/VOLUM E] IN SERUM OR PLASMA 130 mg/dL 11/23 Specimen Type: PLASMA No comment entered. Ordering Provider: AILIN CHESTER Report Released Date/Time: Nov 23, 2022 11:58 AM Reporting Lab: [facility] [id number] Performing Lab: [facility] [id number] [place] ([facility]) LIPID PANEL,NON -FASTING CHOLESTEROL IN HDL [MASS/VOLUM E] IN SERUM OR PLASMA 39 mg/dL 11/23 L Specimen Type: PLASMA No comment entered. Ordering Provider: AILIN CHESTER Report Released Date/Time: Nov 23, 2022 11:58 AM Reporting Lab: [facility] [phone] Performing Lab: [facility] [phone] [place] ([facility]) LIPID PANEL,NON -FASTING CHOLESTEROL IN LDL [MASS/VOLUM E] IN SERUM OR PLASMA BY CALCULATION 73 mg/dL 11/23 Specimen Type: PLASMA No comment entered. Ordering Provider: AILIN CHESTER Report Released Date/Time: Nov 23, 2022 11:58 AM Reporting Lab: [facility] [id number] Performing Lab: [facility] [phone] [place] ([facility]) LIPID PANEL,NON -FASTING CHOLESTEROL IN VLDL [MASS/VOLUM E] IN SERUM OR PLASMA BY CALCULATION 18 mg/dL 11/23 Specimen Type: PLASMA No comment entered. Ordering Provider: AILIN CHESTER Report Released Date/Time: Nov 23, 2022 11:58 AM Reporting Lab: [facility] [id number] Performing Lab: [facility] [address] [place] ([facility]) LIPID PANEL,NON -FASTING CHOLESTEROL NON HDL [MASS/VOLUM E] IN SERUM OR PLASMA 91 mg/dL 11/23 Specimen Type: PLASMA No comment entered. Ordering Provider: AILIN CHESTER Report Released Date/Time: Nov 23, 2022 11:58 AM Reporting Lab: [facility] [id number] Performing Lab: [facility] [address] [place] ([facility]) LIPID PANEL,NON -FASTING TRIGLYCERID E [MASS/VOLUM E] IN SERUM OR PLASMA 92 mg/dL 11/23 Specimen Type: PLASMA No comment entered. Ordering Provider: AILIN CHESTER Report Released Date/Time: Nov 23, 2022 11:58 AM Reporting Lab: [facility] [id number] Performing Lab: [facility] [address] [place] ([facility]) TSH W/REFLEX TO FREE T4 THYROTROPIN [UNITS/VOLU ME] IN SERUM OR PLASMA 4.59 u[IU]/ mL 0.35 - 4.94 11/23 Specimen Type: PLASMA No comment entered. Ordering Provider: AILIN CHESTER Report Released Date/Time: Nov 23, 2022 11:58 AM Reporting Lab: [facility] [phone] Performing Lab: [facility] [address] [place] ([facility]) [...] list of: 1) Encounters from Department of [facility] Affairs facilities going back up to thelast 18 months. 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 Location Location Details Encounter Type Encounter Number Reason For Visit Attending Provider ADM Date DC Date Status Disposition Source [facility] Outpatient Encounter [id number] 0[facility].[address] 513 11/11 [facility] Outpatient Encounter [id number] ZARI POWER 11/16 [facility] Outpatient Encounter [id number] 11/21 [facility] OFFICE O/P EST MOD 30-39 MIN [id number] Diagnos is: ICD-10- CM Z00.00 Encntr for general adult medical exam w/o abnorma l finding s
CANDELARIO CHESTER 11/23 [place] ([facility] [place] ([facility]) GAIT TRAINING THERAPY [id number] Diagnos is: ICD-10- CM R26.89 Other abnorma lities of gait and mobilit y
TRINOOMAYRA MCDERMOTT V 11/23 [place] ([facility]) [place] [facility] Outpatient Encounter [id number] SA TRINO RA R 12/11 [place] [facility] [place] [facility] Out[place] Encounter [id number] 12/25 [place] [facility] [place] [facility] Outpatient Encounter [id number] SA TRINO RA R 12/28 [place] [facility] [place] [facility] Outpatient Encounter [id number] 01/05 [place] [facility] [place] [facility] Outpatient Encounter [id number] 01/11 [place] [facility] [place] [facility] Outpatient Encounter [id number] 01/16 [place] [facility] [place] ([facility]) OFFICE O/P EST HI 40-54 MIN [id number] Diagnos is: ICD-10- CM I50.9 Heart failure , unspeci fied
CANDELARIO CHESTER 01/23 [place] ([facility] [place] [facility] Outpatient Encounter [id number] Marcus POTTS I 01/24 [place] [facility] [place] [facility] Outpatient Encounter [id number] Danica TORRE 02/05 [place] [facility] [place] [facility] Outpatient Encounter [id number] 02/09 [place] [facility] [place] [facility] Outpatient Encounter [id number] Danica TORRE 02/09 [place] [facility] [place] [facility] Outpatient Encounter [id number] 02/14 [place] [facility] [place] [facility] Outpatient Encounter [id number] 02/15 [place] [facility] [place] [facility] Outpatient Encounter [id number] 02/19 [place] [facility] [place] [facility] Outpatient Encounter [id number] 02/20 [place] [facility] [place] [facility] Outpatient Encounter [id number] 02/20 [place] [facility] [place] [facility] Outpatient Encounter [id number] 02/20 [place] [facility] [place] [facility] Outpatient Encounter [id number] 02/20 [place] [facility] [place] [facility] Outpatient Encounter [id number] 02/21 [place] [facility] [place] [facility] QNHP OL DIG ASSMT&MGMT 5-10 [id number] Diagnos is: ICD-10- CM E11.9 Type 2 diabete s mellitu s without complic ations< br/> HARDER,SIVA LY 02/22 [place] [facility] PRO PHONE CALL 11-20 MIN [id number] Diagnos is: ICD-10- CM I50.9 Heart failure , unspeci fied
JERMAINE ALCANTAR ANDMARIA INES M 02/23 [place] ([facility] [place] [facility] Outpatient Encounter [id number] 02/26 [place] [facility] [place] [facility] Outpatient Encounter [id number] 03/01 [place] [facility] [place] [facility] Outpatient Encounter [id number] 03/05 [place] [facility] [place] [facility] Outpatient Encounter [id number] SA RA Sandra JAMESON 03/09 [place] [facility] [place] [facility] Outpatient Encounter [id number] 03/14 [place] [facility] [place] [facility] Outpatient Encounter [id number] TRINO R 04/12 [facility] [place] [facility] Outpatient Encounter [id number] [facility] [place] [facility] Outpatient Encounter [id number] [facility] 05/01 [facility] [place] [facility] Outpatient Encounter [id number] 07/11 [facility] [place] [facility] Outpatient Encounter [id number] [facility] [place] [facility] Outpatient Encounter [id number] 07/12 [facility] PRO PHONE CALL 5-10 MIN [id number] Diagnos is: ICD-10- CM 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
VIV BARFIELD 07/19 [facility] HEARING AID REPAIR/MOD IFYING [id number] Diagnos is: ICD-10- CM 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
CARY CORCORAN 08/09 [facility] HEARING AID FITTING/CH ECKING [id number] Diagnos is: ICD-10- CM 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
Sy MAKI 09/17 [facility] [place] [facility] Outpatient Encounter [id number] 10/17 [facility] ([facility] OFFICE O/P EST HI 40 MIN [id number] Diagnos is: ICD-10- CM E11.9 Type 2 diabete s mellitu s without complic ations< br/> CANDELARIO CHESTER 11/07 [place] ([facility]) [place] ([facility]) PT EVAL MOD COMPLEX 30 MIN [id number] Diagnos is: ICD-10- CM Z74.09 Other reduced mobilit y
OMAYRA JAMESON NTER V 12/17 [place] ([facility]) [facility] Outpatient Encounter [id number] 01/03 [facility] [place] [facility] Outpatient Encounter [id number] 01/09 [facility] WHEELCHAIR MNGMENT TRAINING [id number] Diagnos is: ICD-10- CM R53.1 Weaknes s
ANDERS EATON R 01/29 [facility] Outpatient Encounter [id number] 01/30 [facility] HEARING AID CHECK BOTH EARS [id number] Diagnos is: ICD-10- CM Z46.1 Encount er for fitting and adjustm ent of hearing aid<br/ > SUZY BLACK AEL F 02/01 [facility] Outpatient Encounter [id number] SA TRINO RA R 02/11 [facility] [place] [facility] Outpatient Encounter [id number] 02/25 [facility] [place] [facility] Outpatient Encounter [id number] JYOTSNA SMART 03/10 [facility] ([facility]) OFFICE O/P EST MOD 30 MIN [id number] Diagnos is: ICD-10- CM L89.623 Pressur e ulcer of left heel, stage 3
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
CIARA BALDERRAMA J 03/20 [facility] HEARING AID REPAIR/MOD IFYING [id number] Diagnos is: ICD-10- CM 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
KEIRA JEAN 04/01 [facility] WHEELCHAIR MNGMENT TRAINING [id number] Diagnos is: ICD-10- CM R53.1 Weaknes s
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 Social History Type Response Date Comment [facility] e Tobacco smoking status NHIS VA-TOBACCO FORMER USER 11/08/2023 [place] ([facility]) History of tobacco use VA-TOBACCO QUIT 1 5 YRS OR MORE 11/08/2023 [place] ([facility]) History of tobacco use VA-TOBACCO FORMER USER 11/23/2022 [place] ([facility]) History of tobacco use VA-TOBACCO FORMER USER 11/29/2021 [place] ([facility]) History of tobacco use VA-TOBACCO QUIT 1 5 YRS OR MORE 10/21/2020 [place] ([facility])
--- NOTE | 2024-05-05 14:20 | CRLHL7_ITS ---
For Patients: As a result of the Century Cures Act, medical imaging exams and procedure reports are released immediately into your electronic medical record. You may view this report before your referring provider. If you have questions, please contact your health care provider. Indication: Weakness Technique: Volumetric multidetector CT images of the head were obtained without the administration of low osmolar intravenous contrast. Comparison: CT head February 04, 2024 Findings: There is no intra-axial or extra-axial fluid collection. There is no mass effect or midline shift. There is age-related cortical atrophy with mild sulcal widening and ex vacuo dilatation of the lateral ventricles. Redemonstration of encephalomalacia of the right frontal lobe and right peripheral cerebellum. There is moderate chronic small vessel disease change within the subcortical and periventricular white matter. Otherwise, the brain parenchyma is preserved in attenuation and witt-white differentiation. The orbits and their contents are grossly within normal limits. The bony calvarium is grossly intact. The paranasal sinuses are clear. The mastoid air cells are well aerated. Impression: Stable remote ischemic, age-related and chronic small-vessel disease changes of the brain without acute intracranial abnormality. Please note that all CT scans at this facility use dose modulation, iterative reconstruction, and/or weight-based dosing when appropriate to reduce radiation dose to as low as reasonably achievable. Dictated by Aamir Barahona MD @ 05/05/2024 3:56:07 PM (Electronically Signed)
--- NOTE | 2024-05-05 14:20 | CRLHL7_ITS ---
For Patients: As a result of the Cures Act, medical imaging exams and procedure reports are released immediately into your electronic medical record. You may view this report before your referring provider. If you have questions, please contact your health care provider. INDICATION: Right elbow pain. Effusion. TECHNIQUE: Noncontrast CT of the right elbow. COMPARISON: Radiographs from 05/05/2024. FINDINGS: No acute fracture. There are degenerative changes of the elbow with an elbow joint effusion. Chondrocalcinosis is present. There are also prominent calcifications associated with the common extensor tendon which closely related to calcium pyrophosphate deposition subcutaneous edema is noted. No soft tissue gas or localized collection. IMPRESSION: 1. 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 2. Calcifications associated with the common extensor tendon may also relate to calcium pyrophosphate deposition. 3. There is no acute fracture. 4. Subcutaneous edema, without localized collection or soft tissue gas. Dictated by Joseluis Thomas MD @ 05/05/2024 3:31:16 PM Please note that all CT scans at this facility use dose modulation, iterative reconstruction, and/or weight-based dosing when appropriate to reduce radiation dose to as low as reasonably achievable. Dictated by: Joseluis Thomas MD @ 05/05/2024 15:31:23 (Electronically Signed)
[2024-05-05 14:38] LABS: Basophils Percent Auto 0.3 % (0.0-3.0); Eosinophils Percent Auto 1.9 % (0.0-7.0); Hematocrit 34.9 % (37.0-53.0); Hemoglobin* 10.9 gm/dL (13.5-17.5); Immature Granulocytes Pct Auto 0.3 %; Lymphocytes Percent Auto 12.7 % (20-44); Mean Corpuscular HGB Conc 31 gm/dL (32-36); Mean Corpuscular Hemoglobin 29 pg (26-34); Mean Corpuscular Volume 93 fL (80-100); Monocytes Percent Auto 7.9 % (0.0-11.0); Neutrophils Percent Auto 76.9 % (42.0-72.0); Platelet Count* 297 K/uL (140-440); RDW Coefficient of Variation % 14.5 % (11.5-15.5); Red Blood Count 3.75 m/uL (4.30-5.90); White Blood Count* 11.21 K/uL (4.50-11.00)
[2024-05-05 14:44] LABS: Slide Review Reflex No
[2024-05-05 14:53] LABS: Albumin* 3.9 g/dL (3.3-5.0); Chloride* 107 mmol/L (96-114)
[2024-05-05 14:54] LABS: Potassium* 4.2 mmol/L (3.6-5.1); Sodium* 139 mmol/L (135-149)
[2024-05-05 14:55] LABS: Appearance Urine Slightly Cloudy (Clear); Bilirubin Urine Negative (Negative); Blood Urine Trace-lysed (Negative); Color Urine Yellow (Yellow); Glucose Urine 2+ (Negative); Ketones Urine Negative (Negative); Leukocyte Esterase Urine Negative (Negative); Nitrite Urine Negative (Negative); Protein Urine 2+ (Negative); Urobilinogen Urine 0.2 (0.2-1.0); pH Urine 5.5 (5.0-8.5)
[2024-05-05 14:56] LABS: Creatinine* 1.6 mg/dL (0.5-1.5); Estimated Glomerular Filt Rate 43 ml/min
[2024-05-05 14:57] LABS: Alanine Aminotransferase* 19 U/L (4-50); Alkaline Phosphatase* 106 U/L (40-150); Anion Gap 7 mEq/L (7-15); Aspartate Amino Transferase* 23 U/L (12-35); Bilirubin Total* 0.6 mg/dL (0.1-1.5); Blood Urea Nitrogen* 31 mg/dL (7-30); Calcium* 9.2 mg/dL (8.4-10.6); Carbon Dioxide* 25 mmol/L (20-32); Glucose* 89 mg/dL (60-115); Total Protein* 7.6 g/dL (6.0-8.3)
[2024-05-05 15:04] LABS: RBC Urine 0-2 (0-2); WBC Urine 0-2 (0-5)
[2024-05-05 15:05] LABS: Squamous Epithelial Cell Urine Moderate (None-Few)
[2024-05-05 15:10] LABS: C Reactive Protein* 15.9 mg/dL (0.5-1.0)
[2024-05-05 15:17] LABS: PCR FLU A Negative PCR FLU A (Negative); PCR FLU B Negative PCR FLU B (Negative); PCR RSV Negative PCR RSV (Negative); SARS PCR* Negative SARS-CoV-2 (Negative)
[2024-05-05] MEDS: PIPERACILLIN/TAZOBACTAM 3.375 GM in 0.9 % SODIUM CHLORIDE Mini-bag 100 ML IVPB (16:50)
--- NOTE | 2024-05-05 17:02 | P.IMHP_ITS ---
Hospitalist- H&P: HPI History of Present Illness Date Seen: 05/05/24 Chief complaint: Weakness Narrative: Rosalina Bowers is a 83 year old male with a history of IDDM2, PVD s/p R BKA, persistent a fib, CAD, and CKD who presented to the ER by EMS today for weakness and R elbow pain. Moe notes that patient has had increased weakness over the past 3 days, requiring more assistance with transfers at home. No recent falls or illness. Has had R sided elbow/shoulder pain over the past 2- 3 days, no injury. No history of gout. No fevers, no skin changes. Sugars are baseline (high-violeta; last A1C was 9.6). Chronic wounds of LLE, sees our wound clinic every Sunday for management. ER Course and Findings: - WBC 11.2 with 76% PMNs, Hgb 10.9 (baseline) - creatinine 1.6 (baseline) - no evidence of acute infectious process over any of his LLE wounds - R elbow with + erythema, degenerative changes, joint effusion and calcifications on CT - Orthopedic Surgery consulted, elected to defer aspiration as he is on Eliquis and Plavix - IV Zosyn and Vanco initiated, Prednisone ordered Given concern for cellulitis vs pseudogout in an insulin dependent diabetic patient with multiple comorbidities, patient admitted to the hospital. Histories updated below; notably had a BKA at [facility] in March 2023, was then discharged to a TCU until July of 2023. PCP is Dr. Man. Review of Systems Narrative: - denies CP, dyspnea - no GI or symptoms, eating well PFSH PFS Medical History (Updated 05/05/24 @ 18:56 by Betty Matthew MD) HFrEF (heart failure with reduced ejection fraction) ?I50.20 - Unspecified systolic (congestive) heart failure (ICD-10) CKD stage 3b, GFR 30-44 ml/min ?N18.32 - Chronic kidney disease, stage 3b (ICD-10) Hypertension ?I10 - Essential (primary) hypertension (ICD-10) Type 2 diabetes with skin ulcer of lower extremity ?E11.622 - Type 2 diabetes mellitus with other skin ulcer (ICD-10) ?L97.909 - Non-pressure chronic ulcer of unspecified part of unspecified lower leg with unspecified severity (ICD-10) Uses hearing aid ?Z97.4 - Presence of external hearing-aid (ICD-10) Non-pressure chronic ulcer of other part of right lower leg with other specified severity ?L97.818 - Non-pressure chronic ulcer of other part of right lower leg with other specified severity (ICD-10) Non-pressure chronic ulcer of right heel and midfoot with other specified severity ?L97.418 - Non-pressure chronic ulcer of right heel and midfoot with other specified severity (ICD-10) Type 2 diabetes mellitus with foot ulcer ?E11.621 - Type 2 diabetes mellitus with foot ulcer (ICD-10) ?L97.509 - Non-pressure chronic ulcer of other part of unspecified foot with unspecified severity (ICD-10) Diabetic peripheral neuropathy ?E11.42 - Type 2 diabetes mellitus with diabetic polyneuropathy (ICD-10) Peripheral vascular disease ?I73.9 - Peripheral vascular disease, unspecified (ICD-10) Decubitus ulcer, heel, right, unstageable ?L89.610 - Pressure ulcer of right heel, unstageable (ICD-10) Decubitus ulcer, heel, left, unstageable ?L89.620 - Pressure ulcer of left heel, unstageable (ICD-10) Non-ST elevation CT (NSTEMI) ?I21.4 - Non-ST elevation (NSTEMI) myocardial infarction (ICD-10) Peripheral neuropathy ?G62.9 - Polyneuropathy, unspecified (ICD-10) CAD (coronary artery disease) ?I25.10 - Atherosclerotic heart disease of [place] coronary artery without angina pectoris (ICD-10) Surgical History Hx of colonoscopy ?Z98.890 - Other specified postprocedural states (ICD-10) Hx of right BKA ?Z89.511 - Acquired absence of right leg below knee (ICD-10) S/P CABG x 4 ?Z95.1 - Presence of aortocoronary bypass graft (ICD-10) Social History (Updated 05/05/24 @ 18:47 by Betty Matthew MD) Narrative: Lives independently with Moe (would be medical decision maker if needed) in [place]. Was in TCU from March 2023 through July of 2023 after R BKA. 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 Nonsmoker, no ETOH use. DNR/DNI. What is your current living situation?: I presently have a place to live Problems where you live: no known problems Problems where you live details: n/a In the past 12 months, utilities in danger of being shut off: no In past 12 months, lack of transportation kept you from medical appts, meetings, work, or getting things needed for daily living: no In the past 12 mos, have been you worried that your food would run out before you had money to buy more?: never true In the past 12 mos, the food you bought just didn't last and you didn't have money to buy more?: never true Highest level of school completed/degree received: high school graduate Smoking Status: Never smoker How often do you have a drink containing alcohol: never How many standard drinks containing alcohol do you have on a typical day: 1 or 2 AUDIT-C Alcohol total score: 0 Non-prescribed substance use: denies use Caffeine: Yes How often does anyone, including family, friends and others, physically hurt you : never How often does anyone, including family, friends and others, insult or talk down to you: never How often does anyone, including family, friends and others, threaten you with harm: never How often does anyone, including family, friends and others, scream or curse at you: never service: Yes ([facility]) Meds Home Medications and Allergies Home Medications ?Medication ?Instructions ?Recorded ?Confirmed ?Type atorvastatin 40 mg tablet 40 mg PO HS 12/09/22 05/05/24 History insulin aspart U-100 100 unit/mL 20 - 24 unit subcut TIDWM 12/09/22 05/05/24 History (3 mL) subcutaneous pen (Novolog FlexPen U-100 Insulin aspart) insulin glargine 100 unit/mL (3 40 unit subcut HS 12/09/22 05/05/24 History mL) subcutaneous pen (Basaglar KwikPen U-100 Insulin) nitroglycerin 0.4 mg sublingual 0.4 mg sublingual Q5M PRN 12/09/22 05/05/24 History tablet apixaban 5 mg tablet (Eliquis) 5 mg PO BID 12/27/22 05/05/24 History clopidogrel 75 mg tablet 75 mg PO DAILY 12/27/22 05/05/24 History pantoprazole 40 mg tablet,delayed 40 mg PO DAILY 12/27/22 05/05/24 History release metoprolol succinate 25 mg 12.5 mg PO DAILY 02/12/23 05/05/24 History tablet,extended release 24 hr sacubitril 24 mg-valsartan 26 mg 0.5 tab PO BID 02/12/23 05/05/24 History tablet (Entresto) spironolactone 25 mg tablet 25 mg PO DAILY 02/12/23 05/05/24 History acetaminophen 325 mg tablet 650 mg PO Q4H PRN 05/05/24 05/05/24 History dapagliflozin propanediol 10 mg 10 mg PO DAILY 05/05/24 05/05/24 History tablet (Farxiga) furosemide 20 mg tablet 20 mg PO BID 05/05/24 05/05/24 History levothyroxine 75 mcg tablet 75 mcg PO DAILY 05/05/24 05/05/24 History mirtazapine 7.5 mg tablet 7.5 mg PO HS 05/05/24 05/05/24 History polyethylene glycol 3350 17 17 g PO DAILY 05/05/24 05/05/24 History gram/dose oral powder (ClearLax) pregabalin 50 mg capsule 50 mg PO TID 05/05/24 05/05/24 History sennosides 8.6 mg tablet 17.2 mg PO BID 05/05/24 05/05/24 History (Evac-U-Gen (sennosides)) Allergies Allergy/AdvReac Type Severity Reaction Status Date / Time No Known Drug Allergies Allergy Verified 05/05/24 18:06 Exam Narrative: Exam Narrative: GEN: Alert and oriented, sitting comfortably in bed and speaking in full sentences HEENT: EOMIs bilaterally, no scleral icterus CV: Irregular rhythm with rate in the 70s, no concerning murmurs R: LCTA bilaterally without concerning wheezing Ext: Right BKA, left lower extremity with 3+ pitting edema of the foot and multiple wounds to the lateral aspect of the left foot, none appear acutely infected or draining. Right upper extremity: Decreased range of motion at the elbow and shoulder secondary to discomfort, no crepitus Skin: Erythema and warmth over right elbow, wounds of left lower extremity as noted above Neuro: No focal deficits on limited neurologic exam, no resting tremor Psych: Appropriate Const: Vital Signs, click to edit/add: Vital Signs - 24 hr 05/05/24 13:23 05/05/24 16:04 Pulse Rate [Pulse Oximeter] 83 88 Respiratory Rate 16 16 Blood Pressure [Le ft Upper Arm] 112/67 127/68 Pulse Oximetry 99 97 Oxygen Delivery Me thod Room Air Room Air Hospitalist - H&P: Result Labs Labs: Short CBC 05/05/24 Range/Units 14:25 WBC 11.21 H (4.50-11.00) K/uL Hgb 10.9 L (13.5-17.5) gm/dL Hct 34.9 L (37.0-53.0) % Plt Count 297 (140-440) K/uL BMP 05/05/24 14:25 Sodium 139 Potassium 4.2 Chloride 107 Carbon Dioxide 25 BUN 31 H Creatinine 1.6 H Glucose 89 Calcium 9.2 Liver Function 05/05/24 Range/Units 14:25 Total Bilirubin 0.6 (0.1-1.5) mg/dL AST 23 (12-35) U/L ALT 19 (4-50) U/L Alkaline Phosphatase 106 (40-150) U/L Albumin 3.9 (3.3-5.0) g/dL Urine 05/05/24 Range/Units Unknown Urine Color Yellow (Yellow) Urine Appearance Slightly Cloudy A (Clear) Urine pH 5.5 (5.0-8.5) Ur Specific [place] 1.020 (1.000-1.030) Urine Protein 2+ A (Negative) Urine Glucose (UA) 2+ A (Negative) Assessment and Plan Assessment and plan (1) Elbow pain: Problem comment: - infection vs pseudogout vs gout vs muscular source - Zosyn and Vancomycin (05/05), will continue and narrow pending clinical improvement/blood culture results - low dose steroid, follow BGs - Orthopedic Surgery has been consulted - HOLDING Eliquis and Plavix as of 05/05 as may possibly need aspiration/surgical intervention Status: Acute (2) Weakness: Problem comment: - likely related to acute infectious process above in the setting of multiple comorbidities - therapies ordered Status: Acute (3) Type 2 diabetes mellitus, with long-term current use of insulin: Problem comment: - last outpatient A1C 9.7 - continue home medications, accuchecks + SSI Status: Acute (4) HFrEF (heart failure with reduced ejection fraction): Problem comment: - last TTE 04/2024 (results below) - sees Cardiology - continue home GDMT: BB, Entresto, Spironolactone, Farxiga Final Impressions: 1. Normal LV size, normal wall thickness, moderately severely reduced global systolic function with an estimated EF of 25 - 30%. 2. There is moderate-severe global left ventricular hypokinesis. 3. Right ventricular cavity size is normal, global systolic RV function is mildly reduced. 4. Mild biatrial enlargement 5. The mitral valve is sclerotic, trace mitral regurgitation. 6. Mild-moderate tricuspid regurgitation with normal estimated right sided cardiac pressures. 7. Compared to the prior study of 03/30/2023, the left and right ventricular systolic function has improved and the estimated right sided pressures are now normal. Status: Acute (5) Atrial fibrillation: Problem comment: - rate controlled on Metoprolol, anticoagulated on Eliquis Status: Acute (6) CKD stage 3b, GFR 30-44 ml/min: Problem comment: - stable as of 05/05 Status: Acute Plan - per above - updated at bedside, questions answered
[2024-05-05 17:22] LABS: Uric Acid* 7.5 mg/dL (2.2-8.4)
--- NOTE | 2024-05-05 18:59 | PC.NURSE ---
Nursing admission: Pt arrived from the ER at 1705 accompanied by his , Moe. He is baseline Ax1 pivot at home d/t wounds on LLE that need NWB status and he has a R. BKA with a prosthetic. He has x3 wounds on his left foot/heel/ankle. Mepilex was applied to left heel wound to prevent friction. Left ankle & left foot are KOREY. Pt sees wound care every Sunday. Comes in with increased weakness & home PT unable to get him into the car from the W/C to to his wound care appt. Pt was a very difficult IV stick, he's got a 24G in left hand. IV Zosyn & IV Vanco scheduled. Pt was placed on TELE. He is A&O, afebrile and VSS. Right BKA KOREY and took off his prosthetic. Last BM was 05/04/24. Continent of B&B baseline but does have some urinary urgency. Pt receives home care services through [facility] who come in twice a week. They also just started home PT and OT. Pt is a diabetic with Dexcom but we need to do finger sticks. Dexcom read 247 and POC was 197.
[2024-05-05] MEDS: INSULIN ASPART 100 UNIT/ML 24 UNIT SUBCUT (19:37)
[2024-05-05] MEDS: SACUBITRIL 24 mg/VALSARTAN 26 mg TABLET 0.5 TAB PO (21:08)
[2024-05-05] MEDS: FUROSEMIDE 20 MG TABLET PO (21:08)
[2024-05-05] MEDS: predniSONE 20 MG TABLET 40 MG PO (21:09)
[2024-05-05] MEDS: SENNOSIDES 1 TAB TABLET PO (21:10)
[2024-05-05] MEDS: MIRTAZAPINE 15 MG TABLET 7.5 MG PO (21:10)
[2024-05-05] MEDS: INSULIN GLARGINE,HUM.REC.ANLOG 100 UNIT/ML INSULN.PEN 40 UNIT SUBCUT (21:11)
[2024-05-05] MEDS: ATORVASTATIN CALCIUM 40 MG TABLET PO (21:11)
[2024-05-05] MEDS: INSULIN ASPART 100 UNIT/ML SUBCUT (21:12)
[2024-05-05] MEDS: PREGABALIN 50 MG CAPSULE PO (21:14)
[2024-05-05] MEDS: PIPERACILLIN/TAZOBACTAM 2.25 GM in 0.9 % SODIUM CHLORIDE Mini-bag 100 ML IVPB (22:42)
[2024-05-06] VITALS (10 sets, daily range): BP systolic 92–113; BP diastolic 49–78; PULSE 73–94; RESP 16–18; TEMP 36.3–36.7; O2SAT 95–99
[2024-05-06] MEDS: PIPERACILLIN/TAZOBACTAM 2.25 GM in 0.9 % SODIUM CHLORIDE Mini-bag 100 ML IVPB ×2 (04:57→12:25)
--- NOTE | 2024-05-06 06:33 | PC.NURSE ---
Shift note: Pt is alert and oriented. He has been in bed throughout the night. He has difficulty urinating. Bladder scan done at 0130 was 157ml. Merpilex to the right foot. Patient had adequate sleep. No fever recorded. Vitally stable.
[2024-05-06] MEDS: LEVOTHYROXINE 75 MCG TABLET PO (06:41)
[2024-05-06 08:37] LABS: Basophils Percent Auto 0.1 % (0.0-3.0); Eosinophils Percent Auto 0.1 % (0.0-7.0); Hematocrit 31.1 % (37.0-53.0); Hemoglobin* 9.7 gm/dL (13.5-17.5); Immature Granulocytes Pct Auto 0.2 %; Lymphocytes Percent Auto 6.1 % (20-44); Mean Corpuscular HGB Conc 31 gm/dL (32-36); Mean Corpuscular Hemoglobin 29 pg (26-34); Mean Corpuscular Volume 94 fL (80-100); Monocytes Percent Auto 2.2 % (0.0-11.0); Neutrophils Percent Auto 91.3 % (42.0-72.0); Platelet Count* 321 K/uL (140-440); RDW Coefficient of Variation % 14.6 % (11.5-15.5); Red Blood Count 3.32 m/uL (4.30-5.90); White Blood Count* 12.04 K/uL (4.50-11.00)
[2024-05-06 08:48] LABS: Slide Review Reflex No
[2024-05-06 08:55] LABS: Chloride* 110 mmol/L (96-114); Potassium* 4.7 mmol/L (3.6-5.1); Sodium* 139 mmol/L (135-149)
[2024-05-06 08:58] LABS: Creatinine* 1.7 mg/dL (0.5-1.5); Estimated Glomerular Filt Rate 40 ml/min
[2024-05-06 08:59] LABS: Anion Gap 7 mEq/L (7-15); Blood Urea Nitrogen* 30 mg/dL (7-30); Calcium* 9.1 mg/dL (8.4-10.6); Carbon Dioxide* 22 mmol/L (20-32); Glucose* 202 mg/dL (60-115)
[2024-05-06] MEDS: FUROSEMIDE 20 MG TABLET PO ×2 (09:02→20:59)
[2024-05-06] MEDS: METOPROLOL SUCCINATE (XL) 25 MG TAB 12.5 MG PO (09:02)
[2024-05-06] MEDS: predniSONE 20 MG TABLET PO (09:03)
[2024-05-06] MEDS: OMEPRAZOLE 20 MG CAPSULE DR 40 MG PO (09:03)
[2024-05-06] MEDS: SACUBITRIL 24 mg/VALSARTAN 26 mg TABLET 0.5 TAB PO ×2 (09:03→21:01)
[2024-05-06] MEDS: SPIRONOLACTONE 25 MG TABLET PO (09:03)
[2024-05-06] MEDS: SODIUM CHLORIDE 0.9 % (FLUSH) 10 ML SYRINGE 5 ML IVF ×2 (09:04→21:06)
[2024-05-06] MEDS: INSULIN ASPART 100 UNIT/ML SUBCUT ×4 (09:04→21:02)
[2024-05-06] MEDS: INSULIN ASPART 100 UNIT/ML 24 UNIT SUBCUT ×3 (09:05→17:51)
[2024-05-06 09:20] LABS: C Reactive Protein* 17.3 mg/dL (0.5-1.0)
[2024-05-06] MEDS: PREGABALIN 50 MG CAPSULE PO ×3 (09:56→20:59)
--- NOTE | 2024-05-06 12:21 | P.ORCN_ITS ---
History of Present Illness HPI Date Seen: 05/06/24 Consult date: 05/06/24 Requesting physician: Betty Matthew Chief complaint: Weakness Narrative: Orthopedics altered for pleasant 83-year-old male with complaints of generalized weakness and subsequent right elbow pain. Over the past few days, per patient's , he has demonstrated more weakness. This was noted by requiring more assistance getting around the house, and ADLs. Patient has a right below-knee amputation, with right lower extremity prosthesis. They report on 05/02/2024, right elbow pain especially with motion. He is right-hand dominant. No inciting injury, fall, or change in activities. Reports no wounds. With this pain, they notice some swelling through the right elbow and upper arm. Denies any fevers or chills. Primarily because of the weakness, he was brought to [facility] ER by ambulance. It was at the ER where they discovered some more right elbow issues. X-rays and CT were ordered for the right elbow. Because of a slightly elevated white count, elevated CRP, known insulin-dependent diabetic, heart failure, AFib, on anticoagulation, and because of dependence with this right arm for ambulation and transfers, he was admitted to the hospital. Originally placed on Zosyn and vancomycin IV antibiotics as a prophylactic coverage with concern for possible infection, septic right elbow. He was also given prednisone for genera l anti-inflammatory impact. No NSAIDs provided as patient's creatinine was elevated to 1.6. Patient provides history of right elbow pain upon today's visit. Pain is worse with motion, touch. Elbow feels warm. He also notes some discomfort in the ipsilateral wrist. Notes all this is new as patient had no right upper extremity issues a week ago. Reports playing sports throughout his life, but notes no significant trauma to the right elbow. Review of Systems Narrative: No recent fevers, chills, or aches; no numbness or tingling distally. No recent illnesses. Reports generalized weakness. Reports right elbow pain especially with motion. [facility] Medical History HFrEF (heart failure with reduced ejection fraction) ?I50.20 - Unspecified systolic (congestive) heart failure (ICD-10) CKD stage 3b, GFR 30-44 ml/min ?N18.32 - Chronic kidney disease, stage 3b (ICD-10) Hypertension ?I10 - Essential (primary) hypertension (ICD-10) Type 2 diabetes with skin ulcer of lower extremity ?E11.622 - Type 2 diabetes mellitus with other skin ulcer (ICD-10) ?L97.909 - Non-pressure chronic ulcer of unspecified part of unspecified lower leg with unspecified severity (ICD-10) Uses hearing aid ?Z97.4 - Presence of external hearing-aid (ICD-10) Non-pressure chronic ulcer of other part of right lower leg with other specified severity ?L97.818 - Non-pressure chronic ulcer of other part of right lower leg with other specified severity (ICD-10) Non-pressure chronic ulcer of right heel and midfoot with other specified severity ?L97.418 - Non-pressure chronic ulcer of right heel and midfoot with other specified severity (ICD-10) Type 2 diabetes mellitus with foot ulcer ?E11.621 - Type 2 diabetes mellitus with foot ulcer (ICD-10) ?L97.509 - Non-pressure chronic ulcer of other part of unspecified foot with unspecified severity (ICD-10) Diabetic peripheral neuropathy ?E11.42 - Type 2 diabetes mellitus with diabetic polyneuropathy (ICD-10) Peripheral vascular disease ?I73.9 - Peripheral vascular disease, unspecified (ICD-10) Decubitus ulcer, heel, right, unstageable ?L89.610 - Pressure ulcer of right heel, unstageable (ICD-10) Decubitus ulcer, heel, left, unstageable ?L89.620 - Pressure ulcer of left heel, unstageable (ICD-10) Non-ST elevation MD (NSTEMI) ?I21.4 - Non-ST elevation (NSTEMI) myocardial infarction (ICD-10) Peripheral neuropathy ?G62.9 - Polyneuropathy, unspecified (ICD-10) CAD (coronary artery disease) ?I25.10 - Atherosclerotic heart disease of [place] coronary artery without angina pectoris (ICD-10) Surgical History Hx of colonoscopy ?Z98.890 - Other specified postprocedural states (ICD-10) Hx of right BKA ?Z89.511 - Acquired absence of right leg below knee (ICD-10) S/P CABG x 4 ?Z95.1 - Presence of aortocoronary bypass graft (ICD-10) Social History Narrative: Lives independently with Moe (would be medical decision maker if needed) in [place]. Was in TCU from March 2023 through July of 2023 after R [facility]. 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 Nonsmoker, no ETOH use. DNR/DNI. What is your current living situation?: I presently have a place to live Problems where you live: no known problems Problems where you live details: n/a In the past 12 months, utilities in danger of being shut off: no In past 12 months, lack of transportation kept you from medical appts, meetings, work, or getting things needed for daily living: no In the past 12 mos, have been you worried that your food would run out before you had money to buy more?: never true In the past 12 mos, the food you bought just didn't last and you didn't have money to buy more?: never true Highest level of school completed/degree received: high school graduate Smoking Status: Never smoker How often do you have a drink containing alcohol: never How many standard drinks containing alcohol do you have on a typical day: 1 or 2 AUDIT-C Alcohol total score: 0 Non-prescribed substance use: denies use Caffeine: Yes How often does anyone, including family, friends and others, physically hurt you : never How often does anyone, including family, friends and others, insult or talk down to you: never How often does anyone, including family, friends and others, threaten you with harm: never How often does anyone, including family, friends and others, scream or curse at you: never service: Yes ([employer]) Meds Home Medications and Allergies Home Medications ?Medication ?Instructions ?Recorded ?Confirmed ?Type atorvastatin 40 mg tablet 40 mg PO HS 12/09/22 05/05/24 History insulin aspart U-100 100 unit/mL 20 - 24 unit subcut TIDWM 12/09/22 05/05/24 History (3 mL) subcutaneous pen (Novolog FlexPen U-100 Insulin aspart) insulin glargine 100 unit/mL (3 40 unit subcut HS 12/09/22 05/05/24 History mL) subcutaneous pen (Basaglar KwikPen U-100 Insulin) nitroglycerin 0.4 mg sublingual 0.4 mg sublingual Q5M PRN 12/09/22 05/05/24 History tablet apixaban 5 mg tablet (Eliquis) 5 mg PO BID 12/27/22 05/05/24 History clopidogrel 75 mg tablet 75 mg PO DAILY 12/27/22 05/05/24 History pantoprazole 40 mg tablet,delayed 40 mg PO DAILY 12/27/22 05/05/24 History release metoprolol succinate 25 mg 12.5 mg PO DAILY 02/12/23 05/05/24 History tablet,extended release 24 hr sacubitril 24 mg-valsartan 26 mg 0.5 tab PO BID 02/12/23 05/05/24 History tablet (Entresto) spironolactone 25 mg tablet 25 mg PO DAILY 02/12/23 05/05/24 History acetaminophen 325 mg tablet 650 mg PO Q4H PRN 05/05/24 05/05/24 History dapagliflozin propanediol 10 mg 10 mg PO DAILY 05/05/24 05/05/24 History tablet (Farxiga) furosemide 20 mg tablet 20 mg PO BID 05/05/24 05/05/24 History levothyroxine 75 mcg tablet 75 mcg PO DAILY 05/05/24 05/05/24 History mirtazapine 7.5 mg tablet 7.5 mg PO HS 05/05/24 05/05/24 History polyethylene glycol 3350 17 17 g PO DAILY 05/05/24 05/05/24 History gram/dose oral powder (ClearLax) pregabalin 50 mg capsule 50 mg PO TID 05/05/24 05/05/24 History sennosides 8.6 mg tablet 17.2 mg PO BID 05/05/24 05/05/24 History (Evac-U-Gen (sennosides)) Allergies Allergy/AdvReac Type Severity Reaction Status Date / Time No Known Drug Allergies Allergy Verified 05/05/24 18:06 Ortho Exam Narrative Exam Narrative: General: Well-developed, well-nourished, A&Ox 3, no apparent acute distress. Pulmonary: Breathing pattern regular, even, without apparent distress or audible wheeze present. Right elbow: Small patch of erythema approximately a cm in diameter lateral, and posterior elbow without erythematous streaking. This erythema completely resolved elevation above his heart for 20-30 seconds. No erythema medial elbow. No gross deformity elbow Generalized pitting edema to the especially lateral aspect of the elbow, proximal forearm, which generalized swelling through the elbow, forearm, moderate to the wrist. No swelling through the digits or hand. Elbow rests at approximately 30? extension. Passive elbow motion 30-70; beyond this there is pain within the medial aspect of his elbow deep Notably tender to palpation along the medial elbow, lateral aspect elbow just posterior to the radial head, and anterior to the olecranon Mild-moderate discomfort to palpation along the ECRB tendon insertion Nontender olecranon; no excessive olecranon bursal fluid Pronation 75?, supination 85? without pain or crepitus No stability testing performed 2+ radial ulnar pulses, pink, warm digits with appropriate capillary fill; intact dermatomes and myotomes distally including radial, ulnar, and median nerve distributions Fluid right shoulder motion without pain Fluid right wrist and digit motion without pain Const Vital Signs, click to edit/add: Vital Signs - 24 hr 05/05/24 13:23 05/05/24 16:04 05/05/24 17:05 Temperature 97.9 F Pulse Rate Pulse Rate [Pulse Oximeter] 83 88 89 Respiratory Rate 16 16 20 Blood Pressure [Left Arm] 120/71 Blood Pressure [Left Upper Arm] 112/67 127/68 Pulse Oximetry 99 97 98 Oxygen Delivery Method Room Air Room Air Room Air 05/05/24 17:05 05/05/24 18:27 05/05/24 19:00 Temperature 97.7 F Pulse Rate Pulse Rate [Pulse Oximeter] 89 93 Respiratory Rate 16 16 16 Blood Pressure [Left Arm] 107/60 Blood Pressure [Left Upper Arm] Pulse Oximetry 98 98 Oxygen Delivery Method Room Air Room Air 05/05/24 22:48 05/05/24 22:48 05/05/24 23:00 Temperature 98.2 F Pulse Rate 91 Pulse Rate [Pulse Oximeter] 96 96 Respiratory Rate 16 16 Blood Pressure [Left Arm] 118/62 Blood Pressure [Left Upper Arm] Pulse Oximetry 96 Oxygen Delivery Method Room Air 05/06/24 02:50 05/06/24 08:00 05/06/24 08:00 Temperature 98 F 98.0 F Pulse Rate Pulse Rate [Pulse Oximeter] 75 94 94 Respiratory Rate 16 18 18 Blood Pressure [Left Arm] 107/64 113/78 Blood Pressure [Left Upper Arm] Pulse Oximetry 96 95 Oxygen Delivery Method Room Air Room Air Results Labs Labs: Laboratory Results - last 48 hr 05/05/24 05/05/24 05/05/24 14:25 15:52 Unknown WBC 11.21 H RBC 3.75 L Hgb 10.9 L Hct 34.9 L MCV 93 MCH 29 MCHC 31 L RDW Coeff of Carrillo 14.5 Plt Count 297 Neut % (Auto) 76.9 H Lymph % (Auto) 12.7 L [place] % (Auto) 7.9 Eos % (Auto) 1.9 Baso % (Auto) 0.3 Neut # (Auto) 8.60 H Lymph # (Auto) 1.40 Coos # (Auto) 0.90 Eos # (Auto) 0.20 Baso # (Auto) 0.00 Abs Immat Gran (auto) 0.00 Imm/Tot Granulo (auto) 0.3 Sodium 139 Potassium 4.2 Chloride 107 Carbon Dioxide 25 Anion Gap 7 BUN 31 H Creatinine 1.6 H Estimated Creat Clear Estimated GFR 43 Glucose 89 Uric Acid 7.5 Calcium 9.2 Total Bilirubin 0.6 AST 23 ALT 19 Alkaline Phosphatase 106 C-Reactive Protein 15.9 H Total Protein 7.6 Albumin 3.9 Urine Color Yellow Urine Appearance Slightly Cloudy A Urine pH 5.5 Ur Specific [place] 1.020 Urine Protein 2+ A Urine Glucose (UA) 2+ A Urine Ketones Negative Urine Blood Trace-lysed A Urine Nitrite Negative Urine Bilirubin Negative Urine Urobilinogen 0.2 Ur Leukocyte Esterase Negative Urine RBC 0-2 Urine WBC 0-2 Ur Squamous Epith Cells Moderate A Urine Bacteria None SARS-CoV-2 (PCR) Negative SARS-CoV-2 Influenza Type A (PCR) Negative PCR FLU A Influenza Type B (PCR) Negative PCR FLU B RSV (PCR) Negative PCR RSV Lab Acknowledgement Test Added 05/06/24 08:29 WBC 12.04 H RBC 3.32 L Hgb 9.7 L Hct 31.1 L MCV 94 MCH 29 MCHC 31 L RDW Coeff of [place] 14.6 Plt Count 321 Neut % (Auto) 91.3 H Lymph % (Auto) 6.1 L [place] % (Auto) 2.2 Eos % (Auto) 0.1 Baso % (Auto) 0.1 Neut # (Auto) 11.00 H Lymph # (Auto) 0.70 L [place] # (Auto) 0.30 Eos # (Auto) 0.00 Baso # (Auto) 0.00 Abs Immat Gran (auto) 0.00 Imm/Tot Granulo (auto) 0.2 Sodium 139 Potassium 4.7 Chloride 110 Carbon Dioxide 22 Anion Gap 7 BUN 30 Creatinine 1.7 H Estimated Creat Clear 33.50 Estimated GFR 40 Glucose 202 H Uric Acid Calcium 9.1 Total Bilirubin AST ALT Alkaline Phosphatase C-Reactive Protein 17.3 H Total Protein Albumin Urine Color Urine Appearance Urine pH Ur Specific [place] Urine Protein Urine Glucose (UA) Urine Ketones Urine Blood Urine Nitrite Urine Bilirubin Urine Urobilinogen Ur Leukocyte Esterase Urine RBC Urine WBC Ur Squamous Epith Cells Urine Bacteria SARS-CoV-2 (PCR) Influenza Type A (PCR) Influenza Type B (PCR) RSV (PCR) Lab Acknowledgement Diagnostic results Elbow x-ray: report reviewed and image reviewed Elbow CT: report reviewed and image reviewed Additional Comments: Two views right elbow ordered by different provider [facility] dated 05/05/2024. These images were reviewed and corroborated with the radiology report showing no obvious acute fractures, avulsions, interosseous pathology. There is noted calcifications especially along the lateral elbow joint proper, which has the appearance of pseudogout. Overall generalized maintain radiocapitellar and ulnar trochlear joints. Osteophytes off the ulnar trochlear joint. Small calcifications off the medial epicondyle. Anterior and posterior fat pad sign noted. Generalized soft tissue swelling. Right elbow CT ordered by different provider [facility] dated 05/05/2024. These images were reviewed and corroborated with the radiology report showing no acute fractures or interosseous pathology. This generalized degeneration of the joint proper. Moderate joint effusion. Chondrocalcinosis noted throughout the elbow joint with notable calcifications along the common extensor tendon consistent with calcium pyrophosphate deposition. Subcutaneous edema noted. No soft tissue gas. Assessment and Plan Assessment and plan (1) Elbow pain: Problem comment: - infection vs pseudogout vs gout vs muscular source - Zosyn and Vancomycin (05/05), will continue and narrow pending clinical improvement/blood culture results - low dose steroid, follow BGs - Orthopedic Surgery has been consulted - HOLDING Eliquis and Plavix as of 05/05 as may possibly need aspiration/surgical intervention Status: Acute Total time spent: Total time spent is greater than 50% in coordination of care (as documented) at patient's floor/unit and/or counseling patient: (2) Weakness: Problem comment: - likely related to acute infectious process above in the setting of multiple comorbidities - therapies ordered Status: Acute Total time spent: Total time spent is greater than 50% in coordination of care (as documented) at patient's floor/unit and/or counseling patient: (3) Type 2 diabetes mellitus, with long-term current use of insulin: Problem comment: - last outpatient A1C 9.7 - continue home medications, accuchecks + SSI Status: Acute Total time spent: Total time spent is greater than 50% in coordination of care (as documented) at patient's floor/unit and/or counseling patient: (4) HFrEF (heart failure with reduced ejection fraction): Problem comment: - last TTE 04/2024 (results below) - sees Cardiology - continue home GDMT: BB, Entresto, Spironolactone, Farxiga Final Impressions: 1. Normal LV size, normal wall thickness, moderately severely reduced global systolic function with an estimated EF of 25 - 30%. 2. There is moderate-severe global left ventricular hypokinesis. 3. Right ventricular cavity size is normal, global systolic RV function is mildly reduced. 4. Mild biatrial enlargement 5. The mitral valve is sclerotic, trace mitral regurgitation. 6. Mild-moderate tricuspid regurgitation with normal estimated right sided cardiac pressures. 7. Compared to the prior study of 03/30/2023, the left and right ventricular systolic function has improved and the estimated right sided pressures are now normal. Status: Acute Total time spent: Total time spent is greater than 50% in coordination of care (as documented) at patient's floor/unit and/or counseling patient: (5) Atrial fibrillation: Problem comment: - rate controlled on Metoprolol, anticoagulated on Eliquis Status: Acute Total time spent: Total time spent is greater than 50% in coordination of care (as documented) at patient's floor/unit and/or counseling patient: (6) CKD stage 3b, GFR 30-44 ml/min: Problem comment: - stable as of 05/05 Status: Acute Total time spent: Total time spent is greater than 50% in coordination of care (as documented) at patient's floor/unit and/or counseling patient: Plan We had a thorough discussion regarding pathology. 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 When differentiating gout versus pseudogout, because of the notable chondrocalcinosis on CT and x- ray, my clinical judgment points towards pseudogout. However, because the patient has notable comorbidities, it is prudent to definitively diagnose his right elbow pathology. Thus, recommendation was to pursue with right elbow aspiration and possible corticosteroid injection if indicated under ultrasound guidance. This procedure will help the diagnosis his right elbow pathology, and help treat his symptoms. Dr. Tigre Good was present during the procedure, and performed both the right elbow ultrasound guided aspiration and injection using iQ3 Butterfly portable ultrasound technology. Risks, benefits, and alternatives to aspiration and injection provided, including but not limited to: infection, needle encroachment on a nerve or vascular structure, or non sustaining symptom relief. Patient stated understanding, and elects to proceed. After sterile ChloraPrep prep of the lateral right elbow, a 25 gauge needle was inserted into lateral aspect elbow, placed at the intersection of landmarks: radial head, olecranon, lateral epicondyle with ultrasound guidance. Sterile ultrasound gel was used for the procedure, as well as sterile cover for the ultrasound probe. A moderate right elbow joint effusion was encountered. 6.5cc 1% lidocaine plain injected into the soft tissues, subcutaneous tissues, and radiocapitellar joint for numbing purposes via [id number] technique. Then, a 22 gauge needle was inserted into the lateral elbow, at the radiocapitellar joint, with successful entrance into the elbow effusion noted on [id number] ultrasound. Approximately 2 mL of pale yellow, non cloudy aspirate acquired. While this 22 gauge needle remained within the radiocapitellar joint, 2cc Depo- Medrol (80 mg) was injected into the radiocapitellar joint. This injection was also performed via ultrasound guidance, as we were able to visualize the cortisone entering the radiocapitellar joint. Procedures were tolerated well by the patient without complication. Band-Aid was applied. Post injection instructions given. The fluid was sent to the lab for gram stain, cell count with differential, aerobic/anaerobic cultures, and crystals. Patient noted having some mild relief of the right elbow with generalized motion after procedure. He is encouraged to perform general active and passive motion of his right elbow as tolerated, guided by OT/PT. Avoid any strengthening. He may use the right upper arm for ambulation assistance as tolerated. Regarding IV antibiotics, while suspicion of right elbow joint appears not to be infected, I will let the hospitalist decide if continuation of IV antibiotics is necessary. It is likely prudent for patient to return to his daily Eliquis and Plavix. Concern for right elbow hemarthrosis from elbow aspiration and injection is low. Orthopedics is happy to continue to follow as needed.
[2024-05-06 13:40] LABS: BF Clarity* Slightly Cloudy; BF Color Xanthochromic; BF Total Volume* 4
[2024-05-06 13:41] LABS: RBC, Body Fluid* 1000 Cells/uL
[2024-05-06 13:42] LABS: WBC, Body Fluid* 5580 Cells/uL
[2024-05-06 13:43] LABS: Mononuclear WBC Body Fluid* 11 %; Polynuclear WBC Body Fluid* 89 %
[2024-05-06 14:44] LABS: C.Difficile Negative (Negative); CDIFFEPI 027 PRESUMPTIVE NEGATIVE (Negative)
--- NOTE | 2024-05-06 15:15 | PM.IMPN1 ---
Progress Note: A&P Assessment and plan (1) Acute arthritis: Problem details: Acute right are bowl arthritis suggestive of a crystalline arthropathy gout/pseudogout more likely than infectious.. Antibiotics and await cultures. Cortisone injection given and monitor for response. Status: Acute (2) CKD stage 3b, GFR 30-44 ml/min: Problem details: - stable as of 05/05 Status: Acute (3) Weakness: Problem details: - likely related to acute infectious process above in the setting of multiple comorbidities - therapies ordered Continue discharge planning Status: Acute (4) Lymphedema: Problem details: Chronic. Doing well at this time with edema Status: Acute (5) Decubitus ulcer, heel, left, unstageable: Problem details: Chronic stable. Outpatient wound care Status: Acute (6) Type 2 diabetes mellitus, with long-term current use of insulin: Problem details: - last outpatient A1C 9.7 - continue home medications, accuchecks + SSI Status: Acute (7) Peripheral vascular disease: Problem details: - followed by Vascular surgery at [facility] and [facility] Status: Acute (8) Diabetic peripheral neuropathy: Status: Acute (9) HFrEF (heart failure with reduced ejection fraction): Problem details: - last TTE 04/2024 (results below) - sees Cardiology - continue home GDMT: BB, Entresto, Spironolactone, Farxiga Final Impressions: 1. Normal LV size, normal wall thickness, moderately severely reduced global systolic function with an estimated EF of 25 - 30%. 2. There is moderate-severe global left ventricular hypokinesis. 3. Right ventricular cavity size is normal, global systolic RV function is mildly reduced. 4. Mild biatrial enlargement 5. The mitral valve is sclerotic, trace mitral regurgitation. 6. Mild-moderate tricuspid regurgitation with normal estimated right sided cardiac pressures. 7. Compared to the prior study of 03/30/2023, the left and right ventricular systolic function has improved and the estimated right sided pressures are now normal. Status: Acute (10) Atrial fibrillation: Problem details: - rate controlled on Metoprolol, anticoagulated on Eliquis Status: Acute (11) CAD (coronary artery disease): Problem details: - s/p CABG in 2001 (ORO to LAD, SVG to OM, and SVG to rPDA) - NSTEMI 2022 - on Plavix and statin per Cardiology Status: Acute (12) Delirium: Status: Acute (13) Dementia: Problem details: Clinically suspicious for dementia with some delirium this morning. Ongoing evaluation while hospitalized. Depending on clinical course may affect discharge planning Status: Acute Plan Continue in hospital for treatment of acute arthritis, monitoring for complications of acute monoarticular arthritis, evaluation management of weakness and evaluation of chronic medical problems. Plan of care was discussed with patient his other providers. Total time spent today is 60 minutes in reviewing past medical history and other EMR records. Discussing with patient and other providers ongoing plan of care Subjective Date Seen: 05/06/24 Interval history: Rosalina Bowers is a 83 year old male with a history of IDDM2, PVD s/p R BKA, persistent a fib, CAD, and CKD who presented to the ER by EMS today for weakness and R elbow pain. Moe notes that patient has had increased weakness over the past 3 days, requiring more assistance with transfers at home. No recent falls or illness. Has had R sided elbow/shoulder pain over the past 2-3 days, no injury. No history of gout. No fevers, no skin changes. Sugars are baseline (high-violeta; last A1C was 9.6). Chronic wounds of LLE, sees our wound clinic every Sunday for management. ER Course and Findings: - WBC 11.2 with 76% PMNs, Hgb 10.9 (baseline) - creatinine 1.6 (baseline) - no evidence of acute infectious process over any of his LLE wounds - R elbow with + erythema, degenerative changes, joint effusion and calcifications on CT - Orthopedic Surgery consulted, elected to defer aspiration as he is on Eliquis and Plavix - IV Zosyn and Vanco initiated, Prednisone ordered Given concern for cellulitis vs pseudogout in an insulin dependent diabetic patient with multiple comorbidities, patient admitted to the hospital. Histories updated below; notably had a BKA at [facility] in March 2023, was then discharged to a TCU until July of 2023. PCP is Dr. aMn. 05/06/2024: gives additional history. Patient has significant disability but was acutely weaker yesterday. It appears it this was not just that he was having a painful elbow and difficulties with using his right arm to help with transfers. He was also too weak to stand on his legs. Today he had his left elbow evaluated with arthrocentesis by Orthopedics. At that time they injected cortisone into the elbow for significant improvement in his elbow pain and motion. Exam Narrative: Exam Narrative: When I initially seen him he is delirious and not oriented to his circumstances and not cooperating with cares. When I visit with him later with his he is alert and appears in no distress. Somewhat confused and forgetful but pleasant and cooperative. No obvious facial asymmetry. No evidence of head trauma. Oropharynx is normal. Neck is supple without mass or adenopathy. Respirations are clear to auscultation. Cardiovascular: S1, S2, relatively regular rate and rhythm. Abdomen is soft without tenderness or mass. Lower extremities: On the right he has a BKA which is well healed. On the left he has significant ulcerations over his left heel and left medial ankle. These do not appear infected. Right upper extremities notable for an exquisitely tender right elbow with elbow and about 30? of flexion with almost no tolerated motion and minimally tolerated palpation. Moderate erythema around elbow and olecranon Distal that he has some mild edema. Const: Vital Signs, click to edit/add: Vital Signs - 24 hr 05/05/24 16:04 05/05/24 17:05 05/05/24 17:05 Temperature 97.9 F Pulse Rate Pulse Rate [Pulse Oximeter] 88 89 Respiratory Rate 16 20 16 Blood Pressure [Le ft Arm] 120/71 Blood Pressure [Le ft Upper Arm] 127/68 Pulse Oximetry 97 98 98 Oxygen Delivery Me thod Room Air Room Air Room Air 05/05/24 18:27 05/05/24 19:00 05/05/24 22:48 Temperature 97.7 F Pulse Rate Pulse Rate [Pulse Oximeter] 89 93 96 Respiratory Rate 16 16 16 Blood Pressure [Le ft Arm] 107/60 Blood Pressure [Le ft Upper Arm] Pulse Oximetry 98 Oxygen Delivery Me thod Room Air 05/05/24 22:48 05/05/24 23:00 05/06/24 02:50 Temperature 98.2 F 98 F Pulse Rate 91 Pulse Rate [Pulse Oximeter] 96 75 Respiratory Rate 16 16 Blood Pressure [Le ft Arm] 118/62 107/64 Blood Pressure [Le ft Upper Arm] Pulse Oximetry 96 96 Oxygen Delivery Me thod Room Air Room Air 05/06/24 08:00 05/06/24 08:00 05/06/24 11:45 Temperature 98.0 F 98.0 F Pulse Rate Pulse Rate [Pulse Oximeter] 94 94 87 Respiratory Rate 18 18 18 Blood Pressure [Le ft Arm] 113/78 92/49 L Blood Pressure [Le ft Upper Arm] Pulse Oximetry 95 97 Oxygen Delivery Me thod Room Air Room Air 05/06/24 14:35 Temperature Pulse Rate 73 Pulse Rate [Pulse Oximeter] Respiratory Rate Blood Pressure [Le ft Arm] Blood Pressure [Le ft Upper Arm] Pulse Oximetry Oxygen Delivery Me thod Documenting provider has reviewed patient's vital signs: yes Labs Labs: Laboratory Results - last 24 hr 05/05/24 05/05/24 05/06/24 14:25 15:52 08:29 WBC 12.04 H RBC 3.32 L Hgb 9.7 L Hct 31.1 L MCV 94 MCH 29 MCHC 31 L RDW Coeff of Carrillo 14.6 Plt Count 321 Neut % (Auto) 91.3 H Lymph % (Auto) 6.1 L [place] % (Auto) 2.2 Eos % (Auto) 0.1 Baso % (Auto) 0.1 Neut # (Auto) 11.00 H Lymph # (Auto) 0.70 L [place] # (Auto) 0.30 Eos # (Auto) 0.00 Baso # (Auto) 0.00 Abs Immat Gran (auto) 0.00 Imm/Tot Granulo (auto) 0.2 Sodium 139 Potassium 4.7 Chloride 110 Carbon Dioxide 22 Anion Gap 7 BUN 30 Creatinine 1.7 H Estimated Creat Clear 33.50 Estimated GFR 40 Glucose 202 H Uric Acid 7.5 Calcium 9.1 C-Reactive Protein 17.3 H Fluid Volume Fluid Color Fluid Appearance Fluid WBC Fluid RBC Fluid Polynuclear WBCs Fluid Mononuclear WBCs Stl C. diff Tox B Gene Stl C. diff 027-NAP1-BI SARS-CoV-2 (PCR) Negative SARS-CoV-2 Influenza Type A (PCR) Negative PCR FLU A Influenza Type B (PCR) Negative PCR FLU B RSV (PCR) Negative PCR RSV Lab Acknowledgement Test Added 05/06/24 05/06/24 12:00 12:49 WBC RBC Hgb Hct MCV MCH MCHC RDW Coeff of Carrillo Plt Count Neut % (Auto) Lymph % (Auto) [place] % (Auto) Eos % (Auto) Baso % (Auto) Neut # (Auto) Lymph # (Auto) [place] # (Auto) Eos # (Auto) Baso # (Auto) Abs Immat Gran (auto) Imm/Tot Granulo (auto) Sodium Potassium Chloride Carbon Dioxide Anion Gap BUN Creatinine Estimated Creat Clear Estimated GFR Glucose Uric Acid Calcium C-Reactive Protein Fluid Volume 4 Fluid Color Xanthochromic A Fluid Appearance Slightly Cloudy A Fluid WBC 5580 Fluid RBC 1000 Fluid Polynuclear WBCs 89 Fluid Mononuclear WBCs 11 Stl C. diff Tox B Gene Negative Stl C. diff [id number]-NAP1-BI PRESUMPTIVE NEGATIVE SARS-CoV-2 (PCR) Influenza Type A (PCR) Influenza Type B (PCR) RSV (PCR) Lab Acknowledgement
--- NOTE | 2024-05-06 19:00 | PC.NURSE ---
End of Shift ([id number]): Patient pleasant and cooperative, this morning, patient was only alert and oriented to self, reoriented and patient has been A&O since, MD notified. This morning the patient was hypotensive, MD notified, no interventions per MD. All other VSS, afebrile.?Patient denied pain when asked this shift. BM on the bedpan this shift. Tolerating regular diet. ?
[2024-05-06] MEDS: SENNOSIDES 1 TAB TABLET PO (20:59)
[2024-05-06] MEDS: MIRTAZAPINE 15 MG TABLET 7.5 MG PO (21:00)
[2024-05-06] MEDS: ATORVASTATIN CALCIUM 40 MG TABLET PO (21:00)
[2024-05-06] MEDS: APIXABAN 5 MG TABLET PO (21:01)
[2024-05-06] MEDS: INSULIN GLARGINE,HUM.REC.ANLOG 100 UNIT/ML INSULN.PEN 40 UNIT SUBCUT (21:02)
[2024-05-07 03:00] VITALS: BP 100/54; PULSE 70; RESP 18; TEMP 36.6; O2SAT 95
--- NOTE | 2024-05-07 05:24 | PC.NURSE ---
Shift note: Pt has been in bed throughout the shift. Alert and oriented. Reported feeling better than yesterday. Pelvic transfer with A2 from recliner to bed. He uses urinal in bed. No fever recorded, vitally stable. Pt had adequate sleep.
[2024-05-07] MEDS: LEVOTHYROXINE 75 MCG TABLET PO (06:20)
[2024-05-07 07:15] VITALS: PULSE 78
[2024-05-07 07:22] LABS: Hematocrit 31.1 % (37.0-53.0); Hemoglobin* 9.6 gm/dL (13.5-17.5); Immature Granulocytes Pct Auto 0.3 %; Lymphocytes Percent Auto 5.1 % (20-44); Mean Corpuscular HGB Conc 31 gm/dL (32-36); Mean Corpuscular Hemoglobin 29 pg (26-34); Mean Corpuscular Volume 93 fL (80-100); Monocytes Percent Auto 2.9 % (0.0-11.0); Neutrophils Percent Auto 91.7 % (42.0-72.0); Platelet Count* 281 K/uL (140-440); RDW Coefficient of Variation % 14.5 % (11.5-15.5); Red Blood Count 3.34 m/uL (4.30-5.90); White Blood Count* 11.59 K/uL (4.50-11.00)
[2024-05-07 07:34] LABS: Chloride* 111 mmol/L (96-114); Potassium* 4.2 mmol/L (3.6-5.1); Sodium* 141 mmol/L (135-149)
[2024-05-07 07:37] LABS: Anion Gap 9 mEq/L (7-15); Blood Urea Nitrogen* 47 mg/dL (7-30); Calcium* 8.7 mg/dL (8.4-10.6); Carbon Dioxide* 21 mmol/L (20-32); Creatinine* 1.9 mg/dL (0.5-1.5); Est. Creatinine Clearance* 29.46; Estimated Glomerular Filt Rate 35 ml/min; Glucose* 264 mg/dL (60-115)
[2024-05-07 07:42] LABS: Slide Review Reflex No
[2024-05-07 07:45] VITALS: BP 115/74; PULSE 95; RESP 18; TEMP 36.4; O2SAT 95
[2024-05-07] MEDS: INSULIN ASPART 100 UNIT/ML 24 UNIT SUBCUT ×2 (07:50→12:16)
[2024-05-07] MEDS: INSULIN ASPART 100 UNIT/ML SUBCUT ×2 (07:50→12:15)
[2024-05-07] MEDS: predniSONE 20 MG TABLET PO (07:51)
[2024-05-07 08:15] LABS: C Reactive Protein* 8.9 mg/dL (0.5-1.0)
[2024-05-07] MEDS: CLOPIDOGREL 75 MG TABLET PO (09:09)
[2024-05-07] MEDS: SACUBITRIL 24 mg/VALSARTAN 26 mg TABLET 0.5 TAB PO (09:09)
[2024-05-07] MEDS: PREGABALIN 50 MG CAPSULE PO (09:09)
[2024-05-07] MEDS: APIXABAN 5 MG TABLET PO (09:09)
[2024-05-07] MEDS: METOPROLOL SUCCINATE (XL) 25 MG TAB 12.5 MG PO (09:09)
[2024-05-07] MEDS: OMEPRAZOLE 20 MG CAPSULE DR 40 MG PO (09:09)
[2024-05-07] MEDS: FUROSEMIDE 20 MG TABLET PO (09:09)
[2024-05-07] MEDS: SODIUM CHLORIDE 0.9 % (FLUSH) 10 ML SYRINGE 5 ML IVF (09:10)
[2024-05-07] MEDS: SPIRONOLACTONE 25 MG TABLET PO (09:10)
[2024-05-07 11:12] VITALS: BP 98/58; PULSE 83; RESP 18; TEMP 36.4; O2SAT 96
--- NOTE | 2024-05-07 11:38 | P.DS_ITS ---
DS: Providers Provider Date Seen: 05/07/24 Date of admission: 05/05/24 18:30 Primary care physician: Melquiades Man MD Admitting Clinician: Betty Matthew MD Attending Physician on discharge: Griffin Ball MD Date of Discharge: 05/07/24 DS: Diagnosis Discharge Diagnosis (1) Acute arthritis: Status: Acute Problem details: Acute right are bowl arthritis suggestive of a crystalline arthropathy gout/pseudogout more likely than infectious.. Antibiotics and await cultures. Cortisone injection. Marked improvement after cortisone injection. Cultures and evaluation for crystals pending. (2) CKD stage 3b, GFR 30-44 ml/min: Status: Acute Problem details: - stable as of 05/05 (3) Weakness: Status: Acute Problem details: Acute weakness at the time of admission. Not only was the unable to use his arm to stand transfer and hold onto a walker but he was also unable to support his own weight with his legs. Cause for this is uncertain. It has resolved at the time of discharge. Patient is advised to try to be as active as possible to maintain his strength and mobility. (4) Lymphedema: Status: Acute Problem details: Chronic. Doing well at this time with edema (5) Decubitus ulcer, heel, left, unstageable: Status: Acute Problem details: Chronic stable. Outpatient wound care (6) Type 2 diabetes mellitus, with long-term current use of insulin: Status: Acute Problem details: - last outpatient A1C 9.7 - continue home medications, accuchecks + SSI (7) Peripheral vascular disease: Status: Acute Problem details: - followed by Vascular surgery at [facility] and [facility] (8) Diabetic peripheral neuropathy: Status: Acute (9) HFrEF (heart failure with reduced ejection fraction): Status: Acute Problem details: - last TTE 04/2024 (results below) - sees Cardiology - continue home GDMT: BB, Entresto, Spironolactone, Farxiga Final Impressions: 1. Normal LV size, normal wall thickness, moderately severely reduced global systolic function with an estimated EF of 25 - 30%. 2. There is moderate-severe global left ventricular hypokinesis. 3. Right ventricular cavity size is normal, global systolic RV function is mildly reduced. 4. Mild biatrial enlargement 5. The mitral valve is sclerotic, trace mitral regurgitation. 6. Mild-moderate tricuspid regurgitation with normal estimated right sided cardiac pressures. 7. Compared to the prior study of 03/30/2023, the left and right ventricular systolic function has improved and the estimated right sided pressures are now normal. (10) Atrial fibrillation: Status: Acute Problem details: - rate controlled on Metoprolol, anticoagulated on Eliquis (11) CAD (coronary artery disease): Status: Acute Problem details: - s/p CABG in 2001 (ORO to LAD, SVG to OM, and SVG to rPDA) - NSTEMI 2022 - on Plavix and statin per Cardiology (12) Delirium: Status: Acute Problem details: Had delirium the 1st morning in the hospital. That is resolved. (13) Dementia: Status: Acute Problem details: Clinically suspicious for dementia with some delirium this morning. Ongoing evaluation while hospitalized. Depending on clinical course may affect discharge planning (14) Low blood pressure: Status: Acute Problem details: Patient developed relatively low blood pressure in the hospital without symptoms. This was likely due to excessive diuresis. He will be discharged on his usual dose of furosemide 20 mg every other day and follow up next week to reassess basic metabolic panel, blood pressure and volume status DS: Summary Hospital Course Hospital Course: Rosalina Bowers is a right-handed 83 year old male with a history of IDDM2, PVD s/p R BKA, persistent a fib, CAD, and CKD who presented to the ER by EMS today for weakness and R elbow pain. Moe notes that patient has had increased weakness over the past 3 days, requiring more assistance with transfers at home. No recent falls or illness. Has had R sided elbow/shoulder pain over the past 2- 3 days, no injury. No history of gout. No fevers, no skin changes. Sugars are baseline (high-violeta; last A1C was 9.6). Chronic wounds of LLE, sees our wound clinic every Sunday for management. ER Course and Findings: - WBC 11.2 with 76% PMNs, Hgb 10.9 (baseline) - creatinine 1.6 (baseline) - no evidence of acute infectious process over any of his LLE wounds - R elbow with + erythema, degenerative changes, joint effusion and calcifications on CT - Orthopedic Surgery consulted, elected to defer aspiration as he is on Eliquis and Plavix - IV Zosyn and Vanco initiated, Prednisone ordered Given concern for cellulitis vs pseudogout in an insulin dependent diabetic patient with multiple comorbidities, patient admitted to the hospital. Histories updated below; notably had a BKA at [facility] in March 2023, was then discharged to a TCU until July of 2023. PCP is Dr. Man. 05/06/2024: gives additional history. Patient has significant disability but was acutely weaker yesterday. It appears it this was not just that he was having a painful elbow and difficulties with using his right arm to help with transfers. He was also too weak to stand on his legs. Today he had his left elbow evaluated with arthrocentesis by Orthopedics. Joint fluid was showing 5580 white cells and 1000 red cells. Suspected to be pseudogout. Crystals are pending. At that time they injected cortisone into the elbow for significant improvement in his elbow pain and motion. 05/07/2024: He reports essentially no pain in his elbow at this time. He has been able use it walking in the hallway holding onto a walker. Examination shows at the elbow still has some swelling but without marked erythema or warmth or tenderness. Somewhat diminished range of motion in the right elbow. Discussed with patient and his that his health status and mobility are tenuous. At this point they both would like him to be at home. I emphasized how important it is for him to keep his mobility and strength and stay active. Patient and are agreeable with discharge today Status at Discharge Functional status at discharge: uses cane/walker Overall status at discharge: patient is progressing back to baseline Time Spent with Patient Time attestation: Total time spent providing and/or coordinating discharge services: 40 minutes Exam Narrative: Exam Narrative: He is alert and oriented to his circumstances. Respirations are clear to auscultation. Cardiovascular: S1, S2, regular rate and rhythm. Abdomen: Bowel sounds active. Abdomen is soft without tenderness or mass. Right elbow with somewhat diminished range of motion. Still some swelling around the right elbow without significant tenderness redness or warmth. He is observed to walk in the hallway with his walker quite efficiently. He is holding onto the walker with his right arm without discomfort. Const: Vital Signs, click to edit/add: Vital Signs - 24 hr 05/06/24 11:45 05/06/24 14:35 05/06/24 16:32 Temperature 98.0 F Pulse Rate 73 89 Pulse Rate [Pulse Oximeter] 87 Respiratory Rate 18 Blood Pressure [Le ft Arm] 92/49 L Pulse Oximetry 97 Oxygen Delivery Me thod Room Air 05/06/24 16:44 05/06/24 16:45 05/06/24 19:00 Temperature 97.4 F L 97.4 F L Pulse Rate Pulse Rate [Pulse Oximeter] 80 80 79 Respiratory Rate 18 18 18 Blood Pressure [Le ft Arm] 98/53 L 112/58 L Pulse Oximetry 99 96 Oxygen Delivery Me thod Room Air Room Air 05/06/24 22:59 05/06/24 22:59 05/06/24 23:00 Temperature 97.7 F Pulse Rate 76 Pulse Rate [Pulse Oximeter] 74 74 Respiratory Rate 18 18 Blood Pressure [Le ft Arm] 99/59 L Pulse Oximetry 96 Oxygen Delivery Me thod Room Air 05/07/24 03:00 05/07/24 07:15 05/07/24 07:45 Temperature 97.9 F 97.6 F Pulse Rate 78 Pulse Rate [Pulse Oximeter] 70 95 Respiratory Rate 18 18 Blood Pressure [Le ft Arm] 100/54 L 115/74 Pulse Oximetry 95 95 Oxygen Delivery Me thod Room Air Room Air 05/07/24 07:45 05/07/24 11:12 Temperature 97.6 F Pulse Rate Pulse Rate [Pulse Oximeter] 95 83 Respiratory Rate 18 18 Blood Pressure [Le ft Arm] 98/58 L Pulse Oximetry 96 Oxygen Delivery Me thod Room Air Documenting provider has reviewed patient's vital signs: yes DS: Data Data Completed and Pending Labs on day of discharge: Labs from last 24 hours 05/07/24 05/06/24 05/06/24 06:11 12:49 12:00 WBC 11.59 H RBC 3.34 L Hgb 9.6 L Hct 31.1 L MCV 93 MCH 29 MCHC 31 L RDW Coeff of Carrillo 14.5 Plt Count 281 Neut % (Auto) 91.7 H Lymph % (Auto) 5.1 L [place] % (Auto) 2.9 Eos % (Auto) 0.0 Baso % (Auto) 0.0 Neut # (Auto) 10.60 H Lymph # (Auto) 0.60 L [place] # (Auto) 0.30 Eos # (Auto) 0.00 Baso # (Auto) 0.00 Abs Immat Gran (auto) 0.00 Imm/Tot Granulo (auto) 0.3 Sodium 141 Potassium 4.2 Chloride 111 Carbon Dioxide 21 Anion Gap 9 BUN 47 H Creatinine 1.9 H Estimated Creat Clear 29.46 Estimated GFR 35 Glucose 264 H Calcium 8.7 C-Reactive Protein 8.9 H Fluid Volume 4 Fluid Color Xanthochromic A Fluid Appearance Slightly Cloudy A Fluid WBC 5580 Fluid RBC 1000 Fluid Polynuclear WBCs 89 Fluid Mononuclear WBCs 11 Fluid Crystal ID Pending Stl C. diff Tox B Gene Negative Stl C. diff [id number] PRESUMPTIVE NEGATIVE Preliminary micro results at discharge 05/06/24 12:00 Body Fluid Culture - Preliminary Synovial Fluid No growth. 05/05/24 16:28 Blood Culture - Preliminary Blood NO GROWTH AFTER 24 HOURS Discharge Plan Discharge Disposition: Home, Self-Care Date of Admission: 05/05/24 18:30 Attending Provider on Discharge: Fausto Ball Consulting Providers: Aman Good Primary Care Provider: Melquiades Man Condition: Improved Anticipated Discharge Date/Time: 05/07/24 11:10 Discharge Medications: Continued clopidogrel 75 mg tablet 75 mg PO DAILY pantoprazole 40 mg tablet,delayed release (DR/EC) 40 mg PO DAILY Eliquis 5 mg tablet 5 mg PO BID (DME) Dexcom G7 Records Management Engineer Misc See Rx Instructions .Route Qty: 1 1RF Rx Instructions: As directed (DME) Dexcom G7 Sensor Device See Rx Instructions .Route Qty: 9 3RF Rx Instructions: As directed (DME) Optifoam Non-Adhesive 4 X 4 bandage See Rx Instructions .Route Qty: 10 1RF Rx Instructions: As directed (DME) gauze bandage [Bordered Gauze] 4 X 4 bandage See Rx Instructions .Route Qty: 25 1RF Rx Instructions: As directed spironolactone 25 mg tablet 25 mg PO DAILY metoprolol succinate 25 mg tablet extended release 24 hr 12.5 mg PO DAILY sacubitril-valsartan [Entresto] 24-26 mg tablet 0.5 tab PO BID nitroglycerin 0.4 mg tablet, sublingual 0.4 mg sublingual Q5M PRN atorvastatin 40 mg tablet 40 mg PO HS insulin aspart U-100 [Novolog FlexPen U-100 Insulin] 100 unit/mL (3 mL) insulin pen 20 - 24 unit subcut TIDWM Patient Comments: 20 UNITS WITH BREAKFAST 24 UNITS LUNCH 24 UNITS WITH SUPPER AND SLIDING SCALE insulin glargine [Basaglar KwikPen U-100 Insulin] 100 unit/mL (3 mL) insulin pen 40 unit subcut HS acetaminophen 325 mg tablet 650 mg PO Q4H PRN levothyroxine 75 mcg tablet 75 mcg PO DAILY mirtazapine 7.5 mg tablet 7.5 mg PO HS polyethylene glycol 3350 [ClearLax] 17 gram/dose powder 17 g PO DAILY dapagliflozin propanediol [Farxiga] 10 mg tablet 10 mg PO DAILY pregabalin 50 mg capsule 50 mg PO TID sennosides [Evac-U-Gen (sennosides)] 8.6 mg tablet 17.2 mg PO BID (DME) hydrocolloid dressing [DuoDERM CGF Extra Thin] 4 X 4 bandage See Rx Instructions .Route Qty: 5 1RF Rx Instructions: As directed following wound care orders (DME) cutimed sorbion border dressing 4x4 See Rx Instructions .Route .MEDSUPPLY Qty: 20 2RF Rx Instructions: As directed following wound care orders (DME) miscellaneous medical supply Kit See Rx Instructions .Route Qty: 2 1RF Rx Instructions: As directed, following wound care orders medium tall circaid velcro compression wrap (DME) Mepilex Border 4 X 4 bandage See Rx Instructions .Route Qty: 20 2RF Rx Instructions: As directed following wound care orders Changed furosemide 20 mg tablet 20 mg PO Q48H Qty: 45 0RF Discharge Orders: Discharge Order (Routine); Ordered 05/07/24 Ordered By: Fausto Ball Activity Level: Activity as Tolerated and Use Walker Discharge Diet: Heart Healthy (2 gm sodium, low fat) Follow Up Appointments: Rosina Salgado PA-C [Referring] - 05/16/24 10:30 am ([facility] for follow up appointment. PCP was unavailable during desired time frame ) Melquiades Man MD [Primary Care Provider] - () [facility]
--- NOTE | 2024-05-07 14:14 | PC.NURSE ---
Discharge: Patient pleasant and cooperative, A&O. VSS, afebrile. SpO2 maintained above 90% on RA. Tolerating regular diet. IV removed with tip intact. 2A with walker and gait belt. Discharge instructions provided, all questions answered. Discharged to home with .
== END 2024-05-07 13:33 | disposition home or self-care (01) | DRG 554 ==
LOC: ED 16:12 → MEDSURG 16:59
PROVIDERS: Family Medicine; Admitting Provider Family Medicine; Emergency Provider Family Medicine; PCP Family Medicine; Visit Provider Family Medicine
DX: M10.021 Idiopathic gout, right elbow (principal); M11.821 Other specified crystal arthropathies, right elbow; F05 Delirium due to known physiological condition; I13.0 Hypertensive heart and chronic kidney disease with heart failure and stage 1 through stage 4 chronic kidney disease, or unspecified chronic kidney disease; I50.20 Unspecified systolic (congestive) heart failure; I48.19 Other persistent atrial fibrillation; L97.422 Non-pressure chronic ulcer of left heel and midfoot with fat layer exposed; L97.322 Non-pressure chronic ulcer of left ankle with fat layer exposed; F03.90 Unspecified dementia, unspecified severity, without behavioral disturbance, psychotic disturbance, mood disturbance, and anxiety; I89.0 Lymphedema, not elsewhere classified; E11.621 Type 2 diabetes mellitus with foot ulcer; E11.622 Type 2 diabetes mellitus with other skin ulcer; L89.620 Pressure ulcer of left heel, unstageable; R03.1 Nonspecific low blood-pressure reading; Z89.511 Acquired absence of right leg below knee; N18.32 Chronic kidney disease, stage 3b; E11.22 Type 2 diabetes mellitus with diabetic chronic kidney disease; E11.42 Type 2 diabetes mellitus with diabetic polyneuropathy; E11.51 Type 2 diabetes mellitus with diabetic peripheral angiopathy without gangrene; Z79.4 Long term (current) use of insulin; I73.9 Peripheral vascular disease, unspecified; M25.521 Pain in right elbow; Z79.01 Long term (current) use of anticoagulants; I25.10 Atherosclerotic heart disease of native coronary artery without angina pectoris; Z95.1 Presence of aortocoronary bypass graft; Z97.4 Presence of external hearing-aid; I25.2 Old myocardial infarction
CPT/HCPCS: 36415; 51798; 70450; 71045; 73070; 73200; 80048; 80053; 81001; 82962; 84550; 85025; 86140; 87040; 87070; 87493; 87631; 89051; 89060; 93005; 97116; 97162; 97166; 97530; 97535; 99284; 99285; J2003; A9270; J1010; J1815; J2543; J3370; J7030; J7512

== ENCOUNTER 2024-05-19 12:59 | Outpatient (CLI) | payer OTHER, BC, SELFPAY | END 2024-05-19 13:00 | disposition home or self-care (01) | LOC: WOUND 13:00 | PROVIDERS: PCP Family Medicine; Visit Provider Nurse Practitioner Family | DX: E11.621 Type 2 diabetes mellitus with foot ulcer (principal); L97.525 Non-pressure chronic ulcer of other part of left foot with muscle involvement without evidence of necrosis; L97.428 Non-pressure chronic ulcer of left heel and midfoot with other specified severity; E11.622 Type 2 diabetes mellitus with other skin ulcer; L97.828 Non-pressure chronic ulcer of other part of left lower leg with other specified severity; Z79.4 Long term (current) use of insulin | CPT/HCPCS: 11043; 97597 ==

== ENCOUNTER 2024-05-26 12:51 | Outpatient (CLI) | payer OTHER, BC, SELFPAY | END 2024-05-26 12:52 | disposition home or self-care (01) | LOC: WOUND 12:51 | PROVIDERS: PCP Family Medicine; Visit Provider Nurse Practitioner Family | DX: E11.622 Type 2 diabetes mellitus with other skin ulcer (principal); L97.828 Non-pressure chronic ulcer of other part of left lower leg with other specified severity; E11.621 Type 2 diabetes mellitus with foot ulcer; L97.428 Non-pressure chronic ulcer of left heel and midfoot with other specified severity; L97.528 Non-pressure chronic ulcer of other part of left foot with other specified severity; Z79.4 Long term (current) use of insulin | CPT/HCPCS: 97597 ==

== ENCOUNTER 2024-06-02 12:50 | Outpatient (CLI) | payer OTHER, BC, SELFPAY | END 2024-06-02 12:51 | disposition home or self-care (01) | LOC: WOUND 12:50 | PROVIDERS: PCP Family Medicine; Visit Provider Nurse Practitioner Family | DX: E11.621 Type 2 diabetes mellitus with foot ulcer (principal); I89.0 Lymphedema, not elsewhere classified; L97.428 Non-pressure chronic ulcer of left heel and midfoot with other specified severity; L97.528 Non-pressure chronic ulcer of other part of left foot with other specified severity; Z79.4 Long term (current) use of insulin | CPT/HCPCS: 11043; 87070; G0463 ==

== ENCOUNTER 2024-06-02 14:12 | Outpatient (CLI) | payer OTHER, BC, SELFPAY ==
--- NOTE | 2024-06-02 14:30 | CRLHL7_ITS ---
For Patients: As a result of the Cures Act, medical imaging exams and procedure reports are released immediately into your electronic medical record. You may view this report before your referring provider. If you have questions, please contact your health care provider. HISTORY: Nonhealing wound. TECHNIQUE: Two views of the left foot. COMPARISON: No prior. FINDINGS: No acute bone destruction specific for osteomyelitis. No tracking soft tissue gas. There are vascular calcifications. Calcaneal spurring. Chronic dorsal cortical deformity of the navicular bone may reflect sequelae of remote trauma. No acute fracture. IMPRESSION: 1. No acute bone destruction to suggest osteomyelitis. 2. No tracking soft tissue gas. Dictated by Joseluis Thomas MD @ 06/03/2024 6:28:23 AM (Electronically Signed)
== END 2024-06-02 14:13 | disposition home or self-care (01) ==
LOC: RAD 14:12
PROVIDERS: PCP Family Medicine; Visit Provider Nurse Practitioner Family
DX: L97.509 Non-pressure chronic ulcer of other part of unspecified foot with unspecified severity (principal); E11.621 Type 2 diabetes mellitus with foot ulcer
CPT/HCPCS: 73620

== ENCOUNTER 2024-06-09 12:50 | Outpatient (CLI) | payer OTHER, BC, SELFPAY | END 2024-06-09 12:51 | disposition home or self-care (01) | LOC: WOUND 12:50 | PROVIDERS: PCP Family Medicine; Visit Provider Nurse Practitioner Family | DX: E11.621 Type 2 diabetes mellitus with foot ulcer (principal); L97.428 Non-pressure chronic ulcer of left heel and midfoot with other specified severity; L97.528 Non-pressure chronic ulcer of other part of left foot with other specified severity; Z79.4 Long term (current) use of insulin | CPT/HCPCS: 97597 ==

== ENCOUNTER 2024-06-16 12:49 | Outpatient (CLI) | payer OTHER, BC, SELFPAY | END 2024-06-16 12:50 | disposition home or self-care (01) | LOC: WOUND 12:49 | PROVIDERS: PCP Family Medicine; Visit Provider Nurse Practitioner Family | DX: E11.621 Type 2 diabetes mellitus with foot ulcer (principal); L97.428 Non-pressure chronic ulcer of left heel and midfoot with other specified severity; L97.528 Non-pressure chronic ulcer of other part of left foot with other specified severity; I89.0 Lymphedema, not elsewhere classified; Z79.4 Long term (current) use of insulin | CPT/HCPCS: 11042; 11043 ==

== ENCOUNTER 2024-06-23 12:52 | Outpatient (CLI) | payer OTHER, BC, SELFPAY | END 2024-06-23 12:53 | disposition home or self-care (01) | LOC: WOUND 12:52 | PROVIDERS: PCP Family Medicine; Visit Provider Nurse Practitioner Family | DX: E11.621 Type 2 diabetes mellitus with foot ulcer (principal); L97.428 Non-pressure chronic ulcer of left heel and midfoot with other specified severity; L97.528 Non-pressure chronic ulcer of other part of left foot with other specified severity; Z79.4 Long term (current) use of insulin | CPT/HCPCS: 11042 ==

== ENCOUNTER 2024-06-30 12:46 | Outpatient (CLI) | payer OTHER, BC, SELFPAY | END 2024-06-30 12:47 | disposition home or self-care (01) | LOC: WOUND 12:46 | PROVIDERS: PCP Family Medicine; Visit Provider Nurse Practitioner Family | DX: E11.621 Type 2 diabetes mellitus with foot ulcer (principal); L97.428 Non-pressure chronic ulcer of left heel and midfoot with other specified severity; L97.528 Non-pressure chronic ulcer of other part of left foot with other specified severity; Z79.4 Long term (current) use of insulin | CPT/HCPCS: 11042 ==

== ENCOUNTER 2024-07-07 12:49 | Outpatient (CLI) | payer OTHER, BC, SELFPAY | END 2024-07-07 12:50 | disposition home or self-care (01) | LOC: WOUND 12:49 | PROVIDERS: PCP Family Medicine; Visit Provider Nurse Practitioner Family | DX: E11.621 Type 2 diabetes mellitus with foot ulcer (principal); L97.428 Non-pressure chronic ulcer of left heel and midfoot with other specified severity; L97.528 Non-pressure chronic ulcer of other part of left foot with other specified severity; Z79.4 Long term (current) use of insulin | CPT/HCPCS: 97597 ==

== ENCOUNTER 2024-07-14 13:03 | Outpatient (CLI) | payer OTHER, BC, SELFPAY | END 2024-07-14 13:04 | disposition home or self-care (01) | LOC: WOUND 13:03 | PROVIDERS: PCP Family Medicine; Visit Provider Nurse Practitioner Family | DX: E11.621 Type 2 diabetes mellitus with foot ulcer (principal); L97.428 Non-pressure chronic ulcer of left heel and midfoot with other specified severity; L97.528 Non-pressure chronic ulcer of other part of left foot with other specified severity; Z79.4 Long term (current) use of insulin | CPT/HCPCS: 11043; 87070; G0463 ==

== ENCOUNTER 2024-07-21 12:55 | Outpatient (CLI) | payer OTHER, SELFPAY | END 2024-07-21 12:56 | disposition home or self-care (01) | LOC: WOUND 12:55 | PROVIDERS: PCP Family Medicine; Visit Provider Nurse Practitioner Family | DX: E11.621 Type 2 diabetes mellitus with foot ulcer (principal); L97.428 Non-pressure chronic ulcer of left heel and midfoot with other specified severity; I89.0 Lymphedema, not elsewhere classified; R26.89 Other abnormalities of gait and mobility; Z79.4 Long term (current) use of insulin | CPT/HCPCS: 11042 ==

== ENCOUNTER 2024-07-28 12:55 | Outpatient (CLI) | payer OTHER, SELFPAY | END 2024-07-28 12:56 | disposition home or self-care (01) | LOC: WOUND 12:55 | PROVIDERS: PCP Family Medicine; Visit Provider Nurse Practitioner Family | DX: E11.621 Type 2 diabetes mellitus with foot ulcer (principal); L97.523 Non-pressure chronic ulcer of other part of left foot with necrosis of muscle; L97.428 Non-pressure chronic ulcer of left heel and midfoot with other specified severity; I89.0 Lymphedema, not elsewhere classified; Z79.4 Long term (current) use of insulin | CPT/HCPCS: 97597 ==

== ENCOUNTER 2024-08-04 13:00 | Outpatient (CLI) | payer OTHER, SELFPAY | END 2024-08-04 13:01 | disposition home or self-care (01) | LOC: WOUND 13:00 | PROVIDERS: PCP Family Medicine; Visit Provider Nurse Practitioner Family | DX: E11.621 Type 2 diabetes mellitus with foot ulcer (principal); L97.428 Non-pressure chronic ulcer of left heel and midfoot with other specified severity; L97.528 Non-pressure chronic ulcer of other part of left foot with other specified severity; I89.0 Lymphedema, not elsewhere classified; Z79.4 Long term (current) use of insulin | CPT/HCPCS: 97597 ==

== ENCOUNTER 2024-08-11 13:04 | Outpatient (CLI) | payer OTHER, BC, SELFPAY | END 2024-08-11 13:05 | disposition home or self-care (01) | LOC: WOUND 13:04 | PROVIDERS: PCP Family Medicine; Visit Provider Nurse Practitioner Family | DX: E11.621 Type 2 diabetes mellitus with foot ulcer (principal); L97.428 Non-pressure chronic ulcer of left heel and midfoot with other specified severity; L97.528 Non-pressure chronic ulcer of other part of left foot with other specified severity; I89.0 Lymphedema, not elsewhere classified; R26.89 Other abnormalities of gait and mobility; Z79.4 Long term (current) use of insulin | CPT/HCPCS: 11042 ==

== ENCOUNTER 2024-08-18 13:00 | Outpatient (CLI) | payer OTHER, BC, SELFPAY | END 2024-08-18 13:01 | disposition home or self-care (01) | LOC: WOUND 13:00 | PROVIDERS: PCP Family Medicine; Visit Provider Physician Assistant Surgical | DX: E11.621 Type 2 diabetes mellitus with foot ulcer (principal); L97.528 Non-pressure chronic ulcer of other part of left foot with other specified severity; L97.428 Non-pressure chronic ulcer of left heel and midfoot with other specified severity; R26.89 Other abnormalities of gait and mobility; Z79.4 Long term (current) use of insulin | CPT/HCPCS: 11042 ==

== ENCOUNTER 2024-08-20 14:21 | Outpatient (CLI) | payer OTHER, BC, SELFPAY ==
[2024-08-20 16:31] LABS: Mononuclear WBC Body Fluid* 15 %; Polynuclear WBC Body Fluid* 86 %; RBC, Body Fluid* 3000 Cells/uL; WBC, Body Fluid* 14022 Cells/uL
[2024-08-20 16:34] LABS: BF Clarity* Cloudy; BF Color Xanthochromic; BF Total Volume* 3
== END 2024-08-20 14:22 | disposition home or self-care (01) ==
PROVIDERS: PCP Family Medicine; Visit Provider Orthopaedic Surgery
DX: M19.90 Unspecified osteoarthritis, unspecified site (principal); M25.521 Pain in right elbow
CPT/HCPCS: 87070; 87075; 87205; 89051; 89060

== ENCOUNTER 2024-08-25 13:08 | Outpatient (CLI) | payer OTHER, BC, SELFPAY | END 2024-08-25 13:09 | disposition home or self-care (01) | LOC: WOUND 13:08 | PROVIDERS: PCP Family Medicine; Visit Provider Physician Assistant Surgical | DX: E11.621 Type 2 diabetes mellitus with foot ulcer (principal); L97.428 Non-pressure chronic ulcer of left heel and midfoot with other specified severity; I89.0 Lymphedema, not elsewhere classified; R26.89 Other abnormalities of gait and mobility; Z79.4 Long term (current) use of insulin; Z79.84 Long term (current) use of oral hypoglycemic drugs | CPT/HCPCS: 11042 ==

== ENCOUNTER 2024-09-01 13:08 | Outpatient (CLI) | payer OTHER, BC, SELFPAY | END 2024-09-01 13:09 | disposition home or self-care (01) | LOC: WOUND 13:11 | PROVIDERS: PCP Family Medicine; Visit Provider Physician Assistant Surgical | DX: E11.621 Type 2 diabetes mellitus with foot ulcer (principal); L97.428 Non-pressure chronic ulcer of left heel and midfoot with other specified severity; I89.0 Lymphedema, not elsewhere classified; R26.89 Other abnormalities of gait and mobility; Z79.4 Long term (current) use of insulin | CPT/HCPCS: 11042 ==

== ENCOUNTER 2024-09-08 12:59 | Outpatient (CLI) | payer OTHER, BC, SELFPAY | END 2024-09-08 13:00 | disposition home or self-care (01) | LOC: WOUND 12:59 | PROVIDERS: PCP Family Medicine; Visit Provider Physician Assistant Surgical | DX: E11.621 Type 2 diabetes mellitus with foot ulcer (principal); I89.0 Lymphedema, not elsewhere classified; L97.428 Non-pressure chronic ulcer of left heel and midfoot with other specified severity; R26.89 Other abnormalities of gait and mobility; Z89.611 Acquired absence of right leg above knee; Z79.4 Long term (current) use of insulin | CPT/HCPCS: 11042 ==

== ENCOUNTER 2024-09-15 13:02 | Outpatient (CLI) | payer OTHER, BC, SELFPAY | END 2024-09-15 13:03 | disposition home or self-care (01) | LOC: WOUND 13:03 | PROVIDERS: PCP Family Medicine; Visit Provider Physician Assistant Surgical | DX: E11.621 Type 2 diabetes mellitus with foot ulcer (principal); L97.428 Non-pressure chronic ulcer of left heel and midfoot with other specified severity; I89.0 Lymphedema, not elsewhere classified; R26.89 Other abnormalities of gait and mobility; Z79.4 Long term (current) use of insulin; Z79.84 Long term (current) use of oral hypoglycemic drugs | CPT/HCPCS: 11042 ==

== ENCOUNTER 2024-09-22 12:56 | Outpatient (CLI) | payer OTHER, BC, SELFPAY | END 2024-09-22 12:57 | disposition home or self-care (01) | LOC: WOUND 12:56 | PROVIDERS: PCP Family Medicine; Visit Provider Physician Assistant Surgical | DX: E11.621 Type 2 diabetes mellitus with foot ulcer (principal); L97.428 Non-pressure chronic ulcer of left heel and midfoot with other specified severity; I89.0 Lymphedema, not elsewhere classified; R26.89 Other abnormalities of gait and mobility; Z89.611 Acquired absence of right leg above knee; Z79.4 Long term (current) use of insulin | CPT/HCPCS: 15275; Q4201 ==

== ENCOUNTER 2024-09-29 12:54 | Outpatient (CLI) | payer OTHER, BC, SELFPAY | END 2024-09-29 12:55 | disposition home or self-care (01) | LOC: WOUND 12:54 | PROVIDERS: PCP Family Medicine; Visit Provider Nurse Practitioner Family | DX: E11.621 Type 2 diabetes mellitus with foot ulcer (principal); L97.422 Non-pressure chronic ulcer of left heel and midfoot with fat layer exposed; I89.0 Lymphedema, not elsewhere classified; R26.89 Other abnormalities of gait and mobility; Z79.4 Long term (current) use of insulin | CPT/HCPCS: 97597 ==

== ENCOUNTER 2024-10-07 14:04 | Outpatient (CLI) | payer OTHER, BC, SELFPAY | END 2024-10-07 14:05 | disposition home or self-care (01) | LOC: WOUND 14:05 | PROVIDERS: PCP Family Medicine; Visit Provider Physician Assistant Surgical | DX: E11.621 Type 2 diabetes mellitus with foot ulcer (principal); I89.0 Lymphedema, not elsewhere classified; L97.428 Non-pressure chronic ulcer of left heel and midfoot with other specified severity; R26.89 Other abnormalities of gait and mobility; Z79.4 Long term (current) use of insulin | CPT/HCPCS: 15275; Q4201 ==

== ENCOUNTER 2024-10-13 13:05 | Outpatient (CLI) | payer OTHER, BC, SELFPAY | END 2024-10-13 13:06 | disposition home or self-care (01) | LOC: WOUND 13:05 | PROVIDERS: PCP Family Medicine; Visit Provider Physician Assistant Surgical | DX: E11.621 Type 2 diabetes mellitus with foot ulcer (principal); I89.0 Lymphedema, not elsewhere classified; L97.428 Non-pressure chronic ulcer of left heel and midfoot with other specified severity; R26.89 Other abnormalities of gait and mobility; Z79.4 Long term (current) use of insulin | CPT/HCPCS: 11042 ==

== ENCOUNTER 2024-10-20 13:00 | Outpatient (CLI) | payer OTHER, BC, SELFPAY | END 2024-10-20 13:01 | disposition home or self-care (01) | LOC: WOUND 13:00 | PROVIDERS: PCP Family Medicine; Visit Provider Physician Assistant Surgical | DX: E11.621 Type 2 diabetes mellitus with foot ulcer (principal); I89.0 Lymphedema, not elsewhere classified; L97.422 Non-pressure chronic ulcer of left heel and midfoot with fat layer exposed; L97.428 Non-pressure chronic ulcer of left heel and midfoot with other specified severity; R26.89 Other abnormalities of gait and mobility; Z79.4 Long term (current) use of insulin | CPT/HCPCS: 11042 ==

== ENCOUNTER 2024-10-27 13:09 | Outpatient (CLI) | payer OTHER, BC, SELFPAY | END 2024-10-27 13:10 | disposition home or self-care (01) | LOC: WOUND 13:09 | PROVIDERS: PCP Family Medicine; Visit Provider Physician Assistant Surgical | DX: E11.621 Type 2 diabetes mellitus with foot ulcer (principal); I89.0 Lymphedema, not elsewhere classified; L97.428 Non-pressure chronic ulcer of left heel and midfoot with other specified severity; R26.89 Other abnormalities of gait and mobility; Z89.611 Acquired absence of right leg above knee; Z79.4 Long term (current) use of insulin | CPT/HCPCS: 15275; Q4201 ==

== ENCOUNTER 2024-11-03 12:57 | Outpatient (CLI) | payer OTHER, BC, SELFPAY | END 2024-11-03 12:58 | disposition home or self-care (01) | LOC: WOUND 12:57 | PROVIDERS: PCP Family Medicine; Visit Provider Physician Assistant | DX: E11.621 Type 2 diabetes mellitus with foot ulcer (principal); I89.0 Lymphedema, not elsewhere classified; L97.428 Non-pressure chronic ulcer of left heel and midfoot with other specified severity; Z79.4 Long term (current) use of insulin; Z89.611 Acquired absence of right leg above knee | CPT/HCPCS: 97597 ==

== ENCOUNTER 2024-11-10 12:59 | Outpatient (CLI) | payer OTHER, BC, SELFPAY | END 2024-11-10 13:00 | disposition home or self-care (01) | LOC: WOUND 13:00 | PROVIDERS: PCP Family Medicine; Visit Provider Physician Assistant | DX: E11.621 Type 2 diabetes mellitus with foot ulcer (principal); L97.428 Non-pressure chronic ulcer of left heel and midfoot with other specified severity; I89.0 Lymphedema, not elsewhere classified; Z79.4 Long term (current) use of insulin | CPT/HCPCS: 97597 ==

== ENCOUNTER 2024-11-17 12:59 | Outpatient (CLI) | payer OTHER, BC, SELFPAY | END 2024-11-17 13:00 | disposition home or self-care (01) | LOC: WOUND 12:59 | PROVIDERS: PCP Family Medicine; Visit Provider Physician Assistant Surgical | DX: E11.621 Type 2 diabetes mellitus with foot ulcer (principal); I89.0 Lymphedema, not elsewhere classified; L97.422 Non-pressure chronic ulcer of left heel and midfoot with fat layer exposed; Z79.4 Long term (current) use of insulin | CPT/HCPCS: 11042 ==

== ENCOUNTER 2024-11-24 12:59 | Outpatient (CLI) | payer OTHER, BC, SELFPAY | END 2024-11-24 13:00 | disposition home or self-care (01) | LOC: WOUND 12:59 | PROVIDERS: PCP Family Medicine; Visit Provider Physician Assistant Surgical | DX: E11.621 Type 2 diabetes mellitus with foot ulcer (principal); I89.0 Lymphedema, not elsewhere classified; L97.422 Non-pressure chronic ulcer of left heel and midfoot with fat layer exposed; Z79.4 Long term (current) use of insulin; R26.89 Other abnormalities of gait and mobility | CPT/HCPCS: 15275; Q4201 ==

== ENCOUNTER 2024-12-01 13:07 | Outpatient (CLI) | payer OTHER, BC, SELFPAY | END 2024-12-01 13:08 | disposition home or self-care (01) | LOC: WOUND 13:07 | PROVIDERS: PCP Family Medicine; Visit Provider Physician Assistant | DX: E11.621 Type 2 diabetes mellitus with foot ulcer (principal); I89.0 Lymphedema, not elsewhere classified; L97.428 Non-pressure chronic ulcer of left heel and midfoot with other specified severity; R26.89 Other abnormalities of gait and mobility; Z79.4 Long term (current) use of insulin | CPT/HCPCS: G0463 ==

== ENCOUNTER 2024-12-08 13:06 | Outpatient (CLI) | payer OTHER, BC, SELFPAY | END 2024-12-08 13:07 | disposition home or self-care (01) | LOC: WOUND 13:06 | PROVIDERS: PCP Family Medicine; Visit Provider Physician Assistant Surgical | DX: E11.621 Type 2 diabetes mellitus with foot ulcer (principal); L97.428 Non-pressure chronic ulcer of left heel and midfoot with other specified severity; L89.892 Pressure ulcer of other site, stage 2; Z79.4 Long term (current) use of insulin | CPT/HCPCS: 11042; 97597 ==

== ENCOUNTER 2024-12-15 13:00 | Outpatient (CLI) | payer OTHER, BC, SELFPAY | END 2024-12-15 13:01 | disposition home or self-care (01) | LOC: WOUND 13:00 | PROVIDERS: PCP Family Medicine; Visit Provider Physician Assistant Surgical | DX: E11.621 Type 2 diabetes mellitus with foot ulcer (principal); I89.0 Lymphedema, not elsewhere classified; L97.422 Non-pressure chronic ulcer of left heel and midfoot with fat layer exposed; S90.122A Contusion of left lesser toe(s) without damage to nail, initial encounter; Z79.4 Long term (current) use of insulin; R26.89 Other abnormalities of gait and mobility; Z89.611 Acquired absence of right leg above knee | CPT/HCPCS: 10140; 97597 ==

== ENCOUNTER 2024-12-22 12:46 | Outpatient (CLI) | payer OTHER, BC, SELFPAY | END 2024-12-22 12:47 | disposition home or self-care (01) | LOC: WOUND 12:46 | PROVIDERS: PCP Family Medicine; Visit Provider Family Medicine | DX: E11.621 Type 2 diabetes mellitus with foot ulcer (principal); I89.0 Lymphedema, not elsewhere classified; L89.892 Pressure ulcer of other site, stage 2; L03.116 Cellulitis of left lower limb; L97.422 Non-pressure chronic ulcer of left heel and midfoot with fat layer exposed; S90.222A Contusion of left lesser toe(s) with damage to nail, initial encounter; Z79.4 Long term (current) use of insulin | CPT/HCPCS: 11042; 87070; G0463 ==

== ENCOUNTER 2024-12-29 12:27 | Outpatient (CLI) | payer OTHER, BC, SELFPAY ==
[2024-12-29 13:57] LABS: Chloride* 106 mmol/L (96-114); Potassium* 3.9 mmol/L (3.6-5.1); Sodium* 139 mmol/L (135-149)
[2024-12-29 14:00] LABS: Anion Gap 9 mEq/L (7-15); Blood Urea Nitrogen* 33 mg/dL (7-30); Calcium* 9.2 mg/dL (8.4-10.6); Carbon Dioxide* 24 mmol/L (20-32); Creatinine* 1.5 mg/dL (0.5-1.5); Estimated Glomerular Filt Rate 46 ml/min; Glucose* 145 mg/dL (60-115)
== END 2024-12-29 12:28 | disposition home or self-care (01) ==
LOC: WOUND 12:27
PROVIDERS: PCP Family Medicine; Visit Provider Physician Assistant
DX: E11.621 Type 2 diabetes mellitus with foot ulcer (principal); L97.422 Non-pressure chronic ulcer of left heel and midfoot with fat layer exposed; L89.892 Pressure ulcer of other site, stage 2; I89.0 Lymphedema, not elsewhere classified; R26.89 Other abnormalities of gait and mobility; Z79.4 Long term (current) use of insulin
CPT/HCPCS: 36415; 80048; 97597

== ENCOUNTER 2025-01-05 12:42 | Outpatient (CLI) | payer OTHER, BC, SELFPAY | END 2025-01-05 12:43 | disposition home or self-care (01) | LOC: WOUND 12:42 | PROVIDERS: PCP Family Medicine; Visit Provider Physician Assistant | DX: E11.621 Type 2 diabetes mellitus with foot ulcer (principal); I89.0 Lymphedema, not elsewhere classified; L97.422 Non-pressure chronic ulcer of left heel and midfoot with fat layer exposed; L89.892 Pressure ulcer of other site, stage 2; S91.312A Laceration without foreign body, left foot, initial encounter; W22.8XXA Striking against or struck by other objects, initial encounter; Z79.4 Long term (current) use of insulin; R26.89 Other abnormalities of gait and mobility; Z89.611 Acquired absence of right leg above knee | CPT/HCPCS: 97597; G0463 ==

== ENCOUNTER 2025-01-13 12:39 | Outpatient (CLI) | payer OTHER, BC, SELFPAY | END 2025-01-13 12:40 | disposition home or self-care (01) | LOC: WOUND 12:39 | PROVIDERS: PCP Family Medicine; Visit Provider Nurse Practitioner Family | DX: E11.621 Type 2 diabetes mellitus with foot ulcer (principal); L97.422 Non-pressure chronic ulcer of left heel and midfoot with fat layer exposed; L97.428 Non-pressure chronic ulcer of left heel and midfoot with other specified severity; I89.0 Lymphedema, not elsewhere classified; L89.892 Pressure ulcer of other site, stage 2; Z79.4 Long term (current) use of insulin | CPT/HCPCS: 11042; 73630; 97597 ==

== ENCOUNTER 2025-01-13 13:45 | Outpatient (CLI) | payer OTHER, MEDICARE, BC, SELFPAY ==
--- NOTE | 2025-01-13 14:00 | CRLHL7_ITS ---
For Patients: As a result of the Century Cures Act, medical imaging exams and procedure reports are released immediately into your electronic medical record. You may view this report before your referring provider. If you have questions, please contact your health care provider. Indication: Left foot pain. Technique: Left foot 3 views Comparison: 06/02/2024 Findings: Plantar and posterior calcaneal spurs with heterotopic ossification of the proximal plantar fascia and distal Achilles tendon. Vascular calcifications. Dorsal spurring at the navicular. No joint effusion. Hallux valgus. Hammertoes. Posterior soft tissue wound without soft tissue gas or periostitis/cortical destruction. Impression: No evidence of osteomyelitis. Dictated by Rafi Rhodes MD @ 01/13/2025 3:52:50 PM (Electronically Signed)
== END 2025-01-13 13:46 | disposition home or self-care (01) ==
LOC: RAD 13:45
PROVIDERS: PCP Family Medicine; Visit Provider Nurse Practitioner Family
DX: E11.621 Type 2 diabetes mellitus with foot ulcer (principal); L97.509 Non-pressure chronic ulcer of other part of unspecified foot with unspecified severity
CPT/HCPCS: 73630

== ENCOUNTER 2025-01-19 10:45 | Outpatient (CLI) | payer OTHER, MEDICARE, BC, SELFPAY | END 2025-01-19 10:46 | disposition home or self-care (01) | LOC: WOUND 10:45 | PROVIDERS: PCP Family Medicine; Visit Provider Family Medicine | DX: E11.621 Type 2 diabetes mellitus with foot ulcer (principal); L97.422 Non-pressure chronic ulcer of left heel and midfoot with fat layer exposed; L89.892 Pressure ulcer of other site, stage 2; I89.0 Lymphedema, not elsewhere classified; R26.89 Other abnormalities of gait and mobility; Z79.4 Long term (current) use of insulin; Z89.611 Acquired absence of right leg above knee; Z99.3 Dependence on wheelchair | CPT/HCPCS: 11042 ==

== ENCOUNTER 2025-01-26 10:42 | Outpatient (CLI) | payer OTHER, MEDICARE, BC, SELFPAY | END 2025-01-26 10:43 | disposition home or self-care (01) | LOC: WOUND 10:43 | PROVIDERS: PCP Family Medicine; Visit Provider Family Medicine | DX: E11.621 Type 2 diabetes mellitus with foot ulcer (principal); L97.422 Non-pressure chronic ulcer of left heel and midfoot with fat layer exposed; L97.522 Non-pressure chronic ulcer of other part of left foot with fat layer exposed; I89.0 Lymphedema, not elsewhere classified; R26.89 Other abnormalities of gait and mobility; Z89.611 Acquired absence of right leg above knee; I95.89 Other hypotension; Z79.4 Long term (current) use of insulin | CPT/HCPCS: 11042 ==

== ENCOUNTER 2025-02-02 10:45 | Outpatient (CLI) | payer OTHER, MEDICARE, BC, SELFPAY | END 2025-02-02 10:46 | disposition home or self-care (01) | LOC: WOUND 10:45 | PROVIDERS: PCP Family Medicine; Visit Provider Family Medicine | DX: E11.621 Type 2 diabetes mellitus with foot ulcer (principal); I89.0 Lymphedema, not elsewhere classified; L97.522 Non-pressure chronic ulcer of other part of left foot with fat layer exposed; L97.422 Non-pressure chronic ulcer of left heel and midfoot with fat layer exposed; R26.89 Other abnormalities of gait and mobility; I95.89 Other hypotension; Z79.4 Long term (current) use of insulin; Z89.611 Acquired absence of right leg above knee | CPT/HCPCS: 97597 ==

== ENCOUNTER 2025-02-09 10:32 | Outpatient (CLI) | payer OTHER, MEDICARE, BC, SELFPAY | END 2025-02-09 10:33 | disposition home or self-care (01) | LOC: WOUND 10:41 | PROVIDERS: PCP Family Medicine; Visit Provider Nurse Practitioner Family | DX: E11.621 Type 2 diabetes mellitus with foot ulcer (principal); I89.0 Lymphedema, not elsewhere classified; L97.422 Non-pressure chronic ulcer of left heel and midfoot with fat layer exposed; R26.89 Other abnormalities of gait and mobility; I95.89 Other hypotension; Z89.611 Acquired absence of right leg above knee; Z79.4 Long term (current) use of insulin | CPT/HCPCS: 97597 ==

== ENCOUNTER 2025-02-16 10:43 | Outpatient (CLI) | payer OTHER, MEDICARE, BC, SELFPAY | END 2025-02-16 10:44 | disposition home or self-care (01) | LOC: WOUND 10:44 | PROVIDERS: PCP Family Medicine; Visit Provider Family Medicine | DX: E11.621 Type 2 diabetes mellitus with foot ulcer (principal); I89.0 Lymphedema, not elsewhere classified; I73.9 Peripheral vascular disease, unspecified; L97.522 Non-pressure chronic ulcer of other part of left foot with fat layer exposed; R26.89 Other abnormalities of gait and mobility; I95.89 Other hypotension; Z89.611 Acquired absence of right leg above knee; Z79.4 Long term (current) use of insulin | CPT/HCPCS: G0463 ==

== ENCOUNTER 2025-02-23 10:41 | Outpatient (CLI) | payer OTHER, MEDICARE, BC, SELFPAY | END 2025-02-23 10:42 | disposition home or self-care (01) | LOC: WOUND 10:41 | PROVIDERS: PCP Family Medicine; Visit Provider Family Medicine | DX: E11.621 Type 2 diabetes mellitus with foot ulcer (principal); I89.0 Lymphedema, not elsewhere classified; I73.9 Peripheral vascular disease, unspecified; L97.422 Non-pressure chronic ulcer of left heel and midfoot with fat layer exposed; L97.522 Non-pressure chronic ulcer of other part of left foot with fat layer exposed; R26.89 Other abnormalities of gait and mobility; I95.89 Other hypotension; Z79.4 Long term (current) use of insulin; Z89.611 Acquired absence of right leg above knee | CPT/HCPCS: 97597 ==

== ENCOUNTER 2025-03-02 10:50 | Outpatient (CLI) | payer OTHER, MEDICARE, BC, SELFPAY | END 2025-03-02 10:51 | disposition home or self-care (01) | LOC: WOUND 10:51 | PROVIDERS: PCP Family Medicine; Visit Provider Family Medicine | DX: E11.621 Type 2 diabetes mellitus with foot ulcer (principal); I89.0 Lymphedema, not elsewhere classified; I73.9 Peripheral vascular disease, unspecified; L97.522 Non-pressure chronic ulcer of other part of left foot with fat layer exposed; L97.521 Non-pressure chronic ulcer of other part of left foot limited to breakdown of skin; R26.89 Other abnormalities of gait and mobility; I95.89 Other hypotension; Z79.4 Long term (current) use of insulin; Z89.611 Acquired absence of right leg above knee | CPT/HCPCS: 11042; 11043; 87070; 97597; G0463 ==

== ENCOUNTER 2025-03-02 20:26 | Outpatient (CLI) | payer MEDICARE, BC, OTHER, SELFPAY | END 2025-03-02 20:27 | disposition home or self-care (01) | PROVIDERS: PCP Family Medicine; Visit Provider Internal Medicine | DX: G47.33 Obstructive sleep apnea (adult) (pediatric) (principal); G47.31 Primary central sleep apnea | CPT/HCPCS: 95811 ==

== ENCOUNTER 2025-03-09 10:52 | Outpatient (CLI) | payer OTHER, MEDICARE, BC, SELFPAY ==
--- NOTE | 2025-03-09 12:30 | CRLHL7_ITS ---
For Patients: As a result of the Cures Act, medical imaging exams and procedure reports are released immediately into your electronic medical record. You may view this report before your referring provider. If you have questions, please contact your health care provider. Indication: Type 2 diabetes mellitus with foot ulcer Technique: Left foot 3 views Comparison: 01/13/2025 Findings: Calcaneal spurs. No fracture. Vascular calcifications. No acute fracture. No cortical destruction or periostitis. Impression: No evidence of osteomyelitis. Dictated by Rafi Rhodes MD @ 03/09/2025 2:10:22 PM (Electronically Signed)
== END 2025-03-09 10:53 | disposition home or self-care (01) ==
PROVIDERS: PCP Family Medicine; Visit Provider Family Medicine
DX: E11.621 Type 2 diabetes mellitus with foot ulcer (principal); I89.0 Lymphedema, not elsewhere classified; L97.522 Non-pressure chronic ulcer of other part of left foot with fat layer exposed; L97.521 Non-pressure chronic ulcer of other part of left foot limited to breakdown of skin; Z89.611 Acquired absence of right leg above knee; Z79.4 Long term (current) use of insulin
CPT/HCPCS: 11042; 73630; 97597; G0463

== ENCOUNTER 2025-03-16 10:44 | Outpatient (CLI) | payer OTHER, MEDICARE, BC, SELFPAY | END 2025-03-16 10:45 | disposition home or self-care (01) | LOC: WOUND 10:45 | PROVIDERS: PCP Family Medicine; Visit Provider Family Medicine | DX: E11.621 Type 2 diabetes mellitus with foot ulcer (principal); I89.0 Lymphedema, not elsewhere classified; L97.422 Non-pressure chronic ulcer of left heel and midfoot with fat layer exposed; L97.522 Non-pressure chronic ulcer of other part of left foot with fat layer exposed; R26.89 Other abnormalities of gait and mobility; I95.89 Other hypotension; Z79.4 Long term (current) use of insulin; Z89.611 Acquired absence of right leg above knee | CPT/HCPCS: 11042 ==

== ENCOUNTER 2025-03-23 10:44 | Outpatient (CLI) | payer OTHER, MEDICARE, BC, SELFPAY | END 2025-03-23 10:45 | disposition home or self-care (01) | LOC: WOUND 10:45 | PROVIDERS: PCP Family Medicine; Visit Provider Family Medicine | DX: E11.621 Type 2 diabetes mellitus with foot ulcer (principal); I89.0 Lymphedema, not elsewhere classified; L97.522 Non-pressure chronic ulcer of other part of left foot with fat layer exposed; Z89.611 Acquired absence of right leg above knee; Z79.4 Long term (current) use of insulin | CPT/HCPCS: 87070; 87186; G0463 ==